=== PATIENT | male | born 1950 | race Caucasian/White ===

== ENCOUNTER → 2018-01-26 12:58 | Outpatient (CLI) | payer MEDICARE, OTHER, SELFPAY ==
--- NOTE | 2018-01-25 14:20 | FLU_PTH ---
PATIENT: ALEM SHEEHAN LOC: [facility] U#:[id number] AGE/SX: 75/M ROOM: RE01/26/[address]: Dr. Kailey Watson MD : 1950 BED: DIS: SPEC #: [id number] RECD: 01/26/18 12:02 STATUS: RENEE RELexii #: [id number] CRISELDA: 01/25/18 14:[address]: Kailey Watson DEPT: CYTOLOGY RECD BY: Nano Capps ENTERED: 01/26/18 13:07 SP TYPE: Fluid OTHR DR: Dr. Roberto Cralos Fernandes MD Tissues: A - Thyroid gland, NOS B - Thyroid gland, NOS Procedures: Pap Stain (control) Special Stain Group II Surgery Specimen Level IV Cell Block Cytospin Fluid HEADER OPERATION: Ultrasound guided fine needle aspiration of right thyroid PRE-OP DIAGNOSIS: Right thyroid nodules TISSUE SUBMITTED: A. FNA, right thyroid fluid, B. FNA, right thyroid slides DIAGNOSIS CYTOLOGY A. Right thyroid fluid, ultrasound-guided FNA (cytospin and cell block): Consistent with benign follicular nodule. B. Right thyroid nodule, ultrasound-guided FNA (smears): Consistent with benign follicular nodule. SJ:rg 01/29/18 COMMENT Immediate cytologic evaluation to determine adequacy is not applicable. Correlation with clinical, radiologic findings and appropriate follow up are necessary. CYTOLOGY STUDY Slides are reviewed. A. The specimen consists of benign follicular cells. B. The specimen is adequate for evaluation. The specimen consists of benign follicular cells and colloid. CYTOLOGY GROSS A - Received is 30 ml of beige cloudy fluid labeled with the patient's name and and designated per the requisition as FNA right thyroid. Submitted for cytology preparation including cell block. B - Received are 6 smears labeled with the patient's name and designated per the requisition as FNA right thyroid. Submitted for staining. /RY:mart 01/26/18 TC:5 CPT: 98978, 39203, 27709
== END ==
PROVIDERS: Family Provider Family Medicine; PCP Family Medicine; Visit Provider Surgery
DX: E04.2 Nontoxic multinodular goiter (principal)
CPT/HCPCS: 88108; 88305; 88313

== ENCOUNTER 2020-03-17 10:10 | Emergency (ER) | payer MEDICARE, OTHER, SELFPAY ==
[2020-03-17 10:11] VITALS: BP 135/81; PULSE 70; RESP 15; TEMP 36.7; BMI 30.8
--- NOTE | 2020-03-17 10:33 | CT_ITS ---
STUDY: CT BRAIN WITHOUT CONTRAST REASON FOR EXAM: Male, 70 years old. DIZZY RADIATION DOSAGE (If Supplied By Facility): CTDIvol = ( 60.81 ) mGy, DLP = ( 1135.50 ) mGycm TECHNIQUE: Transaxial CT imaging of the brain was performed without administration of intravenous contrast material. Individualized dose optimization techniques were used for this CT. COMPARISON: 02/24/2016 FINDINGS: Normal soft tissue structures. Normal calvarium. Normal size ventricles and extra-axial spaces for the patient''s age. Normal white matter tracts of the cerebral hemispheres. Old focal lacunar infarct or prominent perivascular space in the right periventricular white matter. Normal basal ganglia and thalami. Normal brainstem. Normal cerebellum. There is no intracranial hemorrhage. There are no findings of an acute ischemic infarction. Normal visualized paranasal sinuses. Old deformity of the left ocular globe. CT/Brain/Head without Contrast IMPRESSION: No acute intracranial pathology of the brain. Electronically Signed: Evan Stafford DO at 11:26 EDT Tel [phone], Service support ,
--- NOTE | 2020-03-17 10:33 | EKG12_ITS ---
Test Reason : Blood Pressure : / mmHG Vent. Rate : 065 BPM Atrial Rate : 065 BPM P-R Int : 202 ms QRS Dur : 094 ms QT Int : 428 ms P-R-T Axes : 039 030 052 degrees QTc Int : 445 ms Normal sinus rhythm Normal ECG Confirmed by MIGUEL A ALFARO, JEANNETTE ([id number]), graphics editor ANNIKA RODRIGUEZ ([id number]) on 03/18/2020 9:39:11 AM Referred By: SIOBHAN Confirmed By:JEANNETTE GRADY MD
[2020-03-17 10:55] LABS: Absolute Lymphocyte Count 1.02 X10^3/uL (0.83-4.51); Absolute Neutrophil Count 4.4 X10^3/uL (2.0-7.7); Basophil# 0.06 X10^3/uL; Basophil% 0.9 % (0-1); Eosinophil# 0.35 X10^3/uL; Eosinophils% 5.5 % (0-5); Hematocrit 46.2 % (40-54); Hemoglobin 14.6 g/dL (13.0-16.5); Lymphocyte # 1.02 X10^3/ul (4.0); Mean Corp Hgb Conc 31.6 g/dL (32-36); Mean Corpuscular Hgb 28.2 pg (27.0-32.0); Mean Corpuscular Volume 89.2 fL (80-94); Mean Platelet Vol. 9.8 fl (6.2-12.0); Monocyte% 7.8 % (0-10); NRBC Flagged by Analyzer 0 % (0-5); Neutrophil # 4.41 X10^3/uL (2.7-7.7); Neutrophil % 69.2 % (47-70); Platelet Count 226 K/mm3 (150-450); RBC Distribution Width SD 49.7 fl (35.1-43.9); Red Blood Count 5.18 M/mm3 (4.6-6.2); White Blood Count 6.4 K/mm3 (4.4-11.0)
[2020-03-17 11:07] LABS: ALB/GLOB Ratio 0.9 RATIO (0.9-2.4); AST(SGOT) 48 U/L (15-37); Alanine Aminotransfer ALT/SGPT 80 U/L (16-61); Albumin, Serum 3.5 g/dL (3.2-5.0); Alkaline Phosphatase 83 U/L (45-117); Anion Gap 6 (5-15); BUN 27 mg/dL (7-18); BUN/Creat Ratio 21.4 RATIO (10-20); Calcium,Total 9.1 mg/dL (8.5-10.1); Chloride 107 mmol/L (98-107); Creatinine, Serum 1.26 mg/dL (0.70-1.30); EST Glomerular Filtration Rate 60 mL/min (>60); Est Glom Filt Rate - Afr Amer 73 mL/min (>60); Estimated Creatinine Clearance 63.43 ml/min; Globulin 3.7 g/dL (2.2-4.2); Glucose 119 mg/dL (74-106); Potassium 3.9 mmol/L (3.5-5.1); Protein, Total 7.2 g/dL (6.4-8.2); Sodium Level 140 mmol/L (136-145)
--- NOTE | 2020-03-17 11:12 | ED.VISSUMM ---
- ER Visit Summary Date of Service: 03/17/20 Chief Complaint: Dizziness History of Present Illness: The patient is a 70 M who presents with dizziness that began this morning. Patient states he felt like the room was rocking back and forth. Patient states this lasted present 1 minute. Patient states this is different than his previous episodes of vertigo. Patient states his symptoms have resolved at the present time. Patient states he laid down and closes eyes and his symptoms resolved. Patient states his symptoms did not resolve when he closes eyes while sitting up. Patient states he feels like his ears are plugged and admits to some mild tenderness and fullness in his ears. Patient denies any headaches. Patient denies any paresthesias or weakness. Patient admits to nausea but denies any vomiting. Physical Examination: Vital signs are stable. Patient is afebrile. Patient is in no acute distress. Extraocular muscles are intact. There is no nystagmus. Tympanic membranes are clear bilaterally. Oral mucosa is pink and moist. Neck is supple. Trachea is midline. There is no JVD noted. Heart was regular rate and rhythm. Lungs are clear and equal bilaterally. Abdomen is soft. Bowel sounds are normal. There is no tenderness. There is no rebound or guarding noted. Skin is warm dry. Cranial nerves II through XII are intact. There are no focal motor or sensory deficits noted. Extremities are intact. There is no calf tenderness or edema. Test Results: EKG shows a normal sinus rhythm with a rate of 65. There are no acute ST or T wave changes. CBC and comprehensive metabolic profile were obtained and were essentially within normal limits. CT scan of the brain was obtained. There is no acute intracranial abnormality. This was interpreted by the radiologist and reviewed by myself. Emergency Department Course and Treatment: Patient was placed on a director education. There is no cardiac dysrhythmias noted. Patient had no further episodes of dizziness here in the emergency department. Patient was given a lunch tray. Patient was feeling better on reevaluation. Patient was instructed to follow-up with his primary care physician in 5 to 7 days. Patient understood and was agreeable with the plan. All questions were answered. Disposition: Discharge home Impression: 1. Dizziness This note was generated with [employer] software. It may contain incorrect words, spelling, and punctuation that were not noted in review of the chart prior to signing ED Disposition - Plan for ED Patient: Disposition: Home or Assisted Living Diagnosis: Dizziness Instructions: ED Dizziness UKO Referrals: Roberto Carlos Fernandes MD [Primary Care Provider] - 3-5 Days
[2020-03-17 11:32] VITALS: BP 147/86; PULSE 70
[2020-03-17 11:33] VITALS: BP 148/90; BP 152/87; PULSE 70; PULSE 87
[2020-03-17 11:59] VITALS: O2SAT 94
[2020-03-17 12:01] VITALS: BP 113/81; PULSE 79; RESP 18
[2020-03-17 12:25] VITALS: BP 145/87; PULSE 78; RESP 16
== END 2020-03-17 13:45 | disposition home or self-care (01) ==
PROVIDERS: Emergency Provider Emergency Medicine; PCP Family Medicine
DX: R42 Dizziness and giddiness (principal); R11.0 Nausea; H93.19 Tinnitus, unspecified ear; J34.89 Other specified disorders of nose and nasal sinuses; J45.909 Unspecified asthma, uncomplicated
CPT/HCPCS: 70450; 80053; 85025; 93005; 94760; 99285; A4216

== ENCOUNTER 2020-03-25 13:45 | Emergency (ER) | payer MEDICARE, OTHER, SELFPAY ==
[2020-03-25 13:46] VITALS: BP 138/93; PULSE 83; RESP 18; TEMP 36.3; O2SAT 97; BMI 31.4
--- NOTE | 2020-03-25 14:01 | ED.DCSUM_ITS ---
History of Present Illness Chief Complaint: Abd Pain Informant: Patient Onset: Today Context: Sudden Onset Timing: Continuous Current Severity: Mild Maximum Severity: Moderate Narrative: The patient is a 7-year-old male that presents to the emergency department abdominal pain. He states this late morning, he was putting a bench seat into the back of his jeep. He states he felt something pop in his abdomen. He states shortly thereafter, he noticed a hard lump at his bellybutton. He states this never happened before. He presented here for evaluation. He has no history of prior abdominal surgery. He states he is otherwise been in his normal state of health. Prior similar symptoms: No Recent Illness/Hospitalization: No Past Medical History - Allergies and Home Meds Allergies/Adverse Reactions: Allergies erythromycin base Adverse Reaction (Verified 03/17/20 10:21) Diarrhea Primary Care Physician: Kailey Watson MD [STAFF PHYSICIAN] - Prior records reviewed: Yes Past Medical History: - - Diabetes, hypertension Surgical History: rotator cuff repair - right 2013, total knee arthroplasty - 2014, right, - - left eyr reoval d/t trauma, Smoking Status: Never smoker - Family History Maternal Family History: Reports: Heart Disease - alive age 94 Paternal Family History: Reports: Stroke - age 72 Offspring Family History: Reports: - - children, daughter with sogrens, 1 granchild in good health Review of Systems General: Denies: Chills, Fever, Sweats Eyes: Denies: Visual changes - bilaterally, Diplopia ENT: Denies: Rhinorrhea, Sore throat Cardiovascular: Denies: Chest pain, Palpitations Respiratory: Denies: Dyspnea, Cough, Dyspnea on exertion Gastrointestinal: Reports: Abdominal pain. Denies: Nausea, Vomiting, Diarrhea, Melena, Hematochezia Genitourinary: Denies: Dysuria, Hematuria, Frequency Musculoskeletal: Denies: Back pain, Extremity Pain Skin: Denies: Rash, Wounds Neurological: Denies: Headache, Weakness, Numbness Physical Exam Vital Signs/Narrative: Vital Signs Temp Pulse Resp BP Pulse Ox 03/25/20 13:46 97.4 F L 83 18 138/93 H 97 Inital Vital Signs reviewed: Yes General: Well nourished, Well developed, No Acute Distress Head: Normocephalic, Atraumatic Eyes: Perrl, EOMI ENT: Moist mucous membranes, No rhinorrhea Neck: Supple, Nontender Cardiovascular: Regular rate, Regular rhythm, No murmurs Respiratory: No distress, CTA bilaterally, Chest nontender Abdomen: Soft, Nontender, Nondistended, Normal bowel sounds, Umbilical hernia, Hernia reducible Back: Nontender, Normal Inspection Extremities: Nontender, No edema Skin: Normal color, No rash Neurological: Alert, Oriented x3, Cranial nerves II-XII grossly intact, Normal Strength, Normal Sensation Psychological: Normal affect, Normal Mood Diagnostic/Tx/Re-eval - Medical Decision Making The patient presents with incarcerated umbilical hernia. He states it is been there for approximately 2 hours or less. With gentle pressure, it was easily reduced. There was no duskiness or skin color change. IV was established. Patient was treated for pain and nausea. He is had no symptoms of bowel obstruction. He was observed. His pain resolved. His lab work was unremarkable. I did discuss the patient with Dr. Watson as the patient requested [facility] surgery. She actually came to the emergency department and evaluated him. She is comfortable with plan for discharge. She is going to schedule him for outpatient operative repair. The patient was counseled on concerning symptoms and reasons to return. He will be discharged home. Impression 1. Incarcerated umbilical hernia-reduced ED Disposition - Plan for ED Patient: Disposition: Home or Assisted Living Instructions: What Is a Hernia?, ED Hernia Inguinal Referrals: Kailey Watson MD [STAFF PHYSICIAN] -
[2020-03-25 14:19] LABS: Absolute Lymphocyte Count 1.16 X10^3/uL (0.83-4.51); Absolute Neutrophil Count 5.7 X10^3/uL (2.0-7.7); Basophil# 0.06 X10^3/uL; Basophil% 0.7 % (0-1); Eosinophil# 0.36 X10^3/uL; Eosinophils% 4.5 % (0-5); Hematocrit 47.2 % (40-54); Hemoglobin 14.8 g/dL (13.0-16.5); Lymphocyte # 1.16 X10^3/ul (4.0); Lymphocyte % 14.4 % (19-41); Mean Corp Hgb Conc 31.4 g/dL (32-36); Mean Corpuscular Hgb 28.2 pg (27.0-32.0); Mean Corpuscular Volume 90.1 fL (80-94); Mean Platelet Vol. 9.8 fl (6.2-12.0); Monocyte# 0.79 X10^3/uL; Monocyte% 9.8 % (0-10); NRBC Flagged by Analyzer 0 % (0-5); Neutrophil # 5.65 X10^3/uL (2.7-7.7); Neutrophil % 70.1 % (47-70); Platelet Count 241 K/mm3 (150-450); RBC Distribution Width CV 14.9 % (11.6-14.6); RBC Distribution Width SD 49.4 fl (35.1-43.9); Red Blood Count 5.24 M/mm3 (4.6-6.2); White Blood Count 8.1 K/mm3 (4.4-11.0)
[2020-03-25] MEDS: Morphine 4 MG/ML Syringe IV (14:20)
[2020-03-25] MEDS: Ondansetron 4 MG/2 ML Vial IV (14:20)
[2020-03-25 14:40] LABS: ALB/GLOB Ratio 0.9 RATIO (0.9-2.4); AST(SGOT) 55 U/L (15-37); Alanine Aminotransfer ALT/SGPT 84 U/L (16-61); Albumin, Serum 3.6 g/dL (3.2-5.0); Alkaline Phosphatase 88 U/L (45-117); Anion Gap 8 (5-15); BUN 25 mg/dL (7-18); BUN/Creat Ratio 17.4 RATIO (10-20); Calcium,Total 9.4 mg/dL (8.5-10.1); Chloride 107 mmol/L (98-107); Creatinine, Serum 1.44 mg/dL (0.70-1.30); EST Glomerular Filtration Rate 52 mL/min (>60); Est Glom Filt Rate - Afr Amer 62 mL/min (>60); Globulin 3.8 g/dL (2.2-4.2); Glucose 128 mg/dL (74-106); Protein, Total 7.4 g/dL (6.4-8.2); Sodium Level 140 mmol/L (136-145)
[2020-03-25 15:29] VITALS: BP 108/66; PULSE 75; RESP 15; O2SAT 96
--- NOTE | 2020-03-25 18:10 | CON.PCM_ITS ---
- Consult Date of Consult: 03/25/20 - Reason for Consult Chief Complaint: abdominal pain History of Present Illness: 70 y/o WM presents with incarcerated umbilical hernia - reduced by ED physician, Dr. Segovia. I came to evaluate patient in consideration for surgery. He states that he was moving a bench seat for his Jeep [employer] and felt a popping sensation of his abdominal wall. He noted a protrusion in the area that was extremely painful. He presented to [facility] ED. He was evaluated and noted to have an incarcerated umbilical hernia and this was reduced by Dr. Segovia. The patient presently feels much improved. He denies previous hernia surgery, he denies previous abdominal surgery. PAST MEDICAL HISTORY ? Acute gastritis without mention of hemorrhage ? ? Allergic rhinitis, cause unspecified ? ? Allergic rhinitis ? Bursitis of hip ? ? bilateral ? Calcaneal spur ? ? 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 Diaphragmatic hernia without mention of obstruction or gangrene ? ? Esophagitis, unspecified ? ? Generalized anxiety disorder ? ? Anxiety, Generalized ? Heartburn 02/27/2017 ? Other and unspecified hyperlipidemia ? ? PMH - PAST MEDICAL HISTORY OF ? ? nodules in left lung ? Profound impairment, one eye, impairment level not further specified ? ? left ? Restless legs syndrome (RLS) ? ? Type II or unspecified type diabetes mellitus without mention of complication, not stated as uncontrolled ? ? 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ty 02/17/2017 ? Added automatically from request for surgery [id number] ? Unspecified asthma(493.90) ? ? Unspecified essential hypertension ? ? Unspecified sleep apnea ? ? PAST SURGICAL HISTORY ? ARTHROS SHLDR DX W/WO SYNV BX ? 01/17/2014 ? Right shoulder ? COLONOSCOP W/ OR W/O BRS SPEC ? 02/02/2005 ? Colonoscopy-repeat in ? COLONOSCOP W/ OR W/O BRS SPEC ? 04/04/2016 ? Colonoscopy ? DEBRIDEMENT OF SKIN, FULL THIC ? 07/23/08 ? Debride and drain right anastasia infection ? EGD W/O BRS SPECIMEN W/BX ? 04/23/09 ? HEART SURGERY HX ? 2014 ? bicuspid valve repair & TAA tube graft ? KNEE ARTHROSCOPY ? 05/23/2014 ? right ? PAST SURGICAL HISTORY OF ? ? ? L eye removed for trauma ? PAST SURGICAL HISTORY OF ? ? ? left wrist procedure- some typeof mass removed. ? REPAIR COMPL ROTATOR CUFF AVULSN,CHR ? ? Right shoulder ? REVISE ULNAR NERVE AT ELBOW Right 03/01/2017 ? Right ulnar nerve decompression ? TOTAL KNEE REPLACEMENT Left 12/25/2019 ? Left Knee replacement, total ? Medications: ? magnesium oxide (MAG-OX) 400 mg (241.3 mg magnesium) tablet Take 1 tablet by mouth once daily. ? fluticasone (FLONASE) 50 mcg/actuation nasal spray Use 2 Sprays in each nostril once daily. ? sitaGLIPtin (JANUVIA) 100 mg tablet Take 1 tablet by mouth once daily. ? aspirin, enteric coated (ASPIRIN, ENTERIC COATED) 325 mg EC tablet Take 1 tablet by mouth twice daily. (Patient taking differently: ? acetaminophen (TYLENOL) 500 mg tablet TAKE 2 TABLETS BY MOUTH EVERY 8 HOURS NEEDED FOR PAIN. ? fluticasone/vilanterol (BREO ELLIPTA INHALATION) Inhale 1 Puff as instructed once daily. ? mirtazapine (REMERON) 15 mg tablet TAKE 1 2 TO 1 (ONE HALF TO ONE) TABLET BY MOUTH 30 MINUTES BEFORE BEDTIME ? amLODIPine (NORVASC) 5 mg tablet Take 1 tablet by mouth once daily. ? fosinopril sodium (MONOPRIL) 40 mg tablet Take 1 tablet by mouth once daily. ? atorvastatin (LIPITOR) 40 mg tablet Take 1 tablet by mouth daily at bedtime. For cholesterol. ? metFORMIN (GLUCOPHAGE) 1,000 mg tablet Take 1 tablet by mouth twice daily with meals. ? pramipexole (MIRAPEX) 0.25 mg tablet Take 1 tablet by mouth once daily. ? Hydrochlorothiazide 12.5 mg capsule Take 1 capsule by mouth once daily. ? albuterol HFA (VENTOLIN HFA) 90 mcg/actuation inhaler Inhale 2 Puffs as instructed every 4 hours as needed for Wheezing/Shortness of ? Cholecalciferol, Vitamin D3, 1,000 unit cap Take 1 capsule by mouth once daily. ? rfssvae-lgdshaqfa-btywvsf D3 (OS-RENATA 500+D) 500 mg(1,250mg) -200 unit per tablet Take 1 tablet by mouth twice daily with meals. ? therapeutic multivitamin (THERA VITAMIN) tablet Take 1 tablet by mouth daily with breakfast. ? CPAP As directed ? Vardenafil HCl (LEVITRA) 20 mg tablet Take 1 tablet by mouth once daily. ? blood sugar diagnostic (ONETOUCH VERIO) test strip Test blood sugar(s) 2 times daily. ? COMPOUNDED PRESCRIPTION NEBULIZER MACHINE AND MEDICATION KITS, TUBING AND FILTERS DX ASTHMA ? lancets (ONE TOUCH DELICA) 33 gauge misc Test blood sugar(s) 2 daily. ? Blood-Glucose Meter (ONETOUCH VERIO SYSTEM) [facility] Dispense One Kit - Verio Meter Kit. Test blood sugar twice daily. Dx: E11.9. Allergies: erythromycin Social history: TOB use denies REVIEW OF SYSTEMS: General - denies fevers, denies weight loss, denies anorexia Cardiovascular denies chest pain, has known TAA Pulmonary on CPAP, denies shortness of breath, denies coughing up blood Gastrointestinal less abdominal pain now, has heartburn Neurological denies seizures, denies history of stroke Genitourinary denies burning with urination, denies blood in urine Hematological denies spontaneous/prolonged bleeding Skin denies open non healing wounds Musculoskeletal has knee pain scheduled for surgery Endocrine has diabetes Psychological -situational depression- recently passed PHYSICAL EXAMINATION: Vital signs Temp 97.4F HR 83 RR 18 BP 138/93 General WD/WN WM in no apparent distress, alert and oriented, not septic appearing Skin: Skin color, texture, turgor normal, no suspicious rashes or lesions Head: Normocephalic, no masses, lesions, tenderness or abnormalities Neck: Supple, no adenopathy; thyroid symmetric, normal size, no bruits Lungs: Lungs clear to auscultation. No wheezing, rhonchi, rales Heart: normal heart sounds, no murmurs noted Abdomen: soft obese, tender in umbilical area no protruding lesion noted. Bowel sounds normal. No masses, organomegaly Extremities: No deformities, edema, skin discoloration, clubbing or cyanosis. Good capillary refill. Neuro: non focal Psych - calm and appropriate Labs - WBC 8.1K with 70.1% neut (slightly elevated), BUN/Creat - 25/1.44, AST/ALT 55/84 IMPRESSION: episode of incarcerated umbilical hernia - reduced presently DISCUSSION/Plan: I have discussed the above with the patient. I have offered the patient the procedure of umbilical hernia repair I have explained the procedure to the patient. I have counseled the patient as to the risks of the procedure, including but not limited to: infection, bleeding, injury to any blood vessels/nerves, scar tissue, injury to any intraabdominal organs, injury to kidney/ureters, injury to bowel/bladder, intraabdominal abscess/bleeding, recurrence of hernia, wound infections, complications of anesthesia, postoperative pneumonia/cardiac problems/blood clots etc. the patient understands. The patient was offered a surgery/procedure. The provider and patient have discussed in detail the risk of exposure to and/or potential harm posed by the COVID-19 virus with having a surgery/procedure at this time versus the risk of delaying the surgery/procedure. It is not possible to know either the risk of delaying the surgery or procedure or chance of getting an infection with perfect accuracy, but a joint decision was made between the patient and the provider to proceed at this time with the scheduled surgery/procedure. He agrees to proceed I have answered all questions to the patient?s satisfaction and the patient has no further questions. I will make arrangements for surgery in near future. ( I had offered patient surgery this Monday, he states that he has made other plans and prefers another date)
== END 2020-03-25 15:30 | disposition home or self-care (01) ==
LOC: ED 14:16
PROVIDERS: Emergency Provider Emergency Medicine; PCP Family Medicine
DX: K42.0 Umbilical hernia with obstruction, without gangrene (principal); I10 Essential (primary) hypertension; E11.9 Type 2 diabetes mellitus without complications; F41.1 Generalized anxiety disorder; E78.5 Hyperlipidemia, unspecified; Q25.40 Congenital malformation of aorta unspecified; M70.70 Other bursitis of hip, unspecified hip; G25.81 Restless legs syndrome; G47.30 Sleep apnea, unspecified; J45.909 Unspecified asthma, uncomplicated; Z87.19 Personal history of other diseases of the digestive system; Z79.84 Long term (current) use of oral hypoglycemic drugs; Z79.82 Long term (current) use of aspirin; Z79.899 Other long term (current) drug therapy
CPT/HCPCS: 80053; 85025; 96374; 96375; 99281; 99285; J7040; A4216; J2405

== ENCOUNTER 2020-11-22 14:26 | Emergency (ER) | payer MEDICARE, OTHER, SELFPAY ==
[2020-11-22 14:27] VITALS: BP 150/85; PULSE 84; RESP 16; TEMP 36.7; O2SAT 93; BMI 33.2
[2020-11-22 14:39] VITALS: O2SAT 93
--- NOTE | 2020-11-22 15:19 | EX.ED.DYSGE1 ---
HPI History of Present Illness Chief Complaint: Cough Narrative Narrative: Patient presenting for evaluation secondary to a cough. Patient states that he had a reverse total shoulder performed on Monday at [facility]. He states that when he was discharged home later that day felt as if he had a lot of sinus congestion. However the next day he states that he started to develop a cough that was productive of green sputum. He does endorse mild shortness of breath but denies that he has any sort of fevers chills night sweats nausea vomiting or any other associated infectious signs or symptoms. He does have an underlying history of asthma, he takes Breo every day as a controller medication. He denies any chest pain. He denies any hemoptysis. Denies any history of DVT or PE. Review of systems otherwise negative. [facility] Medical History COPD (chronic obstructive pulmonary disease) Diabetes Hypertension Home Medications magnesium oxide 400 mg PO DAILY 11/25/14 [History Last Taken 02/24/16] metformin 1,000 mg PO BIDCM 11/25/14 [History Last Taken Unknown] multivitamin,jt-weln-Cw-FA-min 1 ea PO DAILY 11/25/14 [History Last Taken 02/24/16] pramipexole 0.25 mg PO QHS 11/25/14 [History Last Taken 02/23/16] atorvastatin 20 mg PO QHS #30 tablet 12/09/14 [Rx Last Taken 02/23/16] calcium carbonate-vitamin D3 [Oyster Shell Calcium-Vit D3] 1 tab PO BIDCM #0 tablet 12/09/14 [Rx Last Taken 02/24/16] amlodipine 5 mg PO DAILY 02/24/16 [History Last Taken 02/24/16] aspirin 162.5 mg PO DAILY 02/24/16 [History Last Taken 02/24/16] ergocalciferol (vitamin D2) [Vitamin D2] 50,000 unit PO SARMIENTO 02/24/16 [History Last Taken 02/21/16] fluticasone propionate 2 spray NASAL DAILY 02/24/16 [History Last Taken 02/24/16] fosinopril 40 mg PO DAILY 02/24/16 [History Last Taken 02/24/16] metoprolol tartrate 25 mg PO BID 02/24/16 [History Last Taken Unknown] zolpidem 10 tab PO QHS 02/24/16 [History Last Taken 02/23/16] fluticasone furoate-vilanterol 1 puff INHALATION DAILY 03/25/20 [History Last Taken Unknown] mirtazapine 15 mg PO QHS 03/25/20 [History Last Taken Unknown] amoxicillin-pot clavulanate [Augmentin] 1 tab PO BID #14 tab 11/22/20 [Rx Last Taken Unknown] Allergy/AdvReac Type Severity Reaction Status Date / Time erythromycin base AdvReac Diarrhea Verified 03/17/20 10:21 Surgical History Status post reverse total shoulder replacement Social History Smoking Status: Never smoker ROS ROS ED Constitutional Constitutional ED: Denies chills or fever(s) ENT ENT ED: Denies rhinorrhea Cardiovascular Cardiovascular: Denies chest pain Respiratory/Chest Respiratory/Chest: Reports cough and dyspnea Gastrointestinal Gastrointestinal: Denies abdominal pain, diarrhea, nausea or vomiting Genitourinary Genitourinary ED: Denies dysuria or hematuria Musculoskeletal Musculoskeletal: Denies back pain Integumentary Denies rash Neurologic Neurologic: Denies paresthesias or weakness Psychiatric Psychiatric: Denies depression Endocrine Endocrinology: Denies fatigue Allergic/Immunologic Allergic/Immunologic ED: Denies urticaria EXAM Physical Exam Const Vital Signs: 11/22/20 14:27 11/22/20 14:39 Temperature 98.1 F Temperature Source Temporal Pulse Rate 84 Respiratory Rate 16 Blood Pressure 150/85 H Blood Pressure Mean 106 Pulse Ox 93 93 Oxygen Delivery Method Room Air Room Air Positive well nourished and well developed General Appearance ED: well developed and NAD HEENT Reports moist mucous membranes Negative for trauma or tenderness Eyes EOMs intact bilaterally Neck no lymphadenopathy, supple and no JVD Chest Wall inspection of chest normal Resp normal respiratory effort Auscultation: rales bilateral Cardio regular rate, regular rhythm and peripheral pulses 2+ throughout Rate: other Other Details: 3 out of 6 systolic murmur noted GI normal to inspection, nondistended, normoactive bowel sounds, non-tender and no masses Palpation: soft Back/Spine normal to inspection Extremity normal to inspection Extremity Narrative: Right arm is in a sling General Extremety ED: Negative for tenderness Neuro oriented x3 and no sensory deficits noted Sensorium / Orientation: alert Motor Exam: strength 5/5 throughout Psych mental status grossly normal Skin no rashes or lesions noted MDM MDM MDM Narrative Medical decision making narrative: Patient presented secondary to a productive cough status post surgery. On physical exam the patient has rales in his bases bilaterally. Chest x-ray per radiology they do not feel that there is airspace consolidation, but by my personal review I feel that there is potentially a retrocardiac infiltrate on the patient's lateral x-ray. Clinically the patient likely has an element of a postoperative pneumonia but we ambulated him in the emergency department and he did not have any hypoxia his vital signs are otherwise stable. I believe the patient is appropriate for outpatient management with a course of Augmentin. Patient was educated on signs and symptoms which to return. Radiography Chest X-Ray - ED: 2 View, Read by ED Physician and - (Retrocardiac infiltrate) Diagnostic Testing: Radiology Impression Chest X-Ray 11/22/20 15:50 IMPRESSION: 1. No airspace consolidation or pleural effusion. 2. Recent right shoulder replacement. Electronically Signed: Raul Baeza MD ([place]) at 16:07 EDT , Service support , Discharge Plan Triage Chief Complaint: Cough ED Provider: Dakota Hernandez Dx/Rx/DC Orders Clinical Impression: Post-op pneumonia Instructions: ED Pneumonia (Adult) Prescriptions: New amoxicillin-pot clavulanate [Augmentin] 875-125 mg tablet 1 tab PO BID Qty: 14 RF: 0 No Action magnesium oxide 400 MG tablet 400 mg PO DAILY RF: 0 multivitamin,ws-svcn-Bh-FA-min 1 EACH tablet 1 ea PO DAILY RF: 0 metformin 1,000 MG tablet 1,000 mg PO BIDCM RF: 0 pramipexole 0.25 MG tablet 0.25 mg PO QHS RF: 0 calcium carbonate-vitamin D3 [Oyster Shell Calcium-Vit D3] 1 TABLET tablet 1 tab PO BIDCM Qty: 0 RF: 0 atorvastatin 20 MG tablet 20 mg PO QHS Qty: 30 RF: 0 aspirin 325 MG tablet 162.5 mg PO DAILY RF: 0 amlodipine 5 MG tablet 5 mg PO DAILY RF: 0 fosinopril 40 MG tablet 40 mg PO DAILY RF: 0 ergocalciferol (vitamin D2) [Vitamin D2] 50,000 UNIT capsule 50,000 unit PO SARMIENTO RF: 0 zolpidem 10 MG tablet 10 tab PO QHS RF: 0 fluticasone propionate 1 SPRAY spray,suspension 2 spray NASAL DAILY RF: 0 metoprolol tartrate 25 MG tablet 25 mg PO BID RF: 0 mirtazapine 15 MG tablet 15 mg PO QHS RF: 0 fluticasone furoate-vilanterol 1 EACH blister with device 1 puff INHALATION DAILY RF: 0 Primary Care Provider: Roberto Carlos Fernandes Referrals: Roberto Carlos Fernandes MD [Primary Care Provider] - 3-5 Days Disposition Disposition: Home, self care
--- NOTE | 2020-11-22 15:50 | RAD_ITS ---
STUDY: X-RAY CHEST REASON FOR EXAM: Male, 70 years old. Cough with green sputum TECHNIQUE: PA and lateral views of the chest. COMPARISON: 02/24/2016 FINDINGS: The lungs are clear and expanded. There is no demonstrated pleural abnormality. Normal size heart. Sternal wires are stable. Normal visualized pulmonary arteries. There is atherosclerotic tortuosity of the aortic arch and descending thoracic aorta. Normal visualized thoracic spine. Right shoulder replacement with adjacent air compatible with recent surgery. There is no demonstrated abnormality of the visualized soft tissue structures of the upper abdomen. RAD/Chest PA and Lateral IMPRESSION: 1. No airspace consolidation or pleural effusion. 2. Recent right shoulder replacement. Electronically Signed: Raul Baeza MD ([place]) at 16:07 EDT , Service support ,
[2020-11-22 16:07] VITALS: O2SAT 94
== END 2020-11-22 16:32 | disposition home or self-care (01) ==
PROVIDERS: Emergency Provider Emergency Medicine; PCP Family Medicine
DX: J18.9 Pneumonia, unspecified organism (principal)
CPT/HCPCS: 71046; 99282

== ENCOUNTER 2020-12-16 12:16 | Emergency (ER) | payer MEDICARE, OTHER, SELFPAY ==
[2020-12-16 12:16] VITALS: BP 155/81; PULSE 77; RESP 16; TEMP 36.4; O2SAT 96; BMI 35.7
--- NOTE | 2020-12-16 12:38 | EKG12_ITS ---
Test Reason : Blood Pressure : / mmHG Vent. Rate : 069 BPM Atrial Rate : 069 BPM P-R Int : 212 ms QRS Dur : 092 ms QT Int : 432 ms P-R-T Axes : 033 011 047 degrees QTc Int : 462 ms Sinus rhythm with 1st degree A-V block Otherwise normal ECG Confirmed by MIGUEL A ALFARO, JEANNETTE ([id number]), online content editor ANNIKA RODRIGUEZ ([id number]) on 12/21/2020 12:52:41 PM Referred By: JESUS MANUEL Confirmed By:JEANNETTE GRADY MD
--- NOTE | 2020-12-16 12:39 | CT_ITS ---
STUDY: CTA CHEST REASON FOR EXAM: Male, 70 years old. Pulmonary embolism. Bilateral lower extremity edema. Recent shoulder surgery. RADIATION DOSAGE (If Supplied By Facility): CTDIvol = ( 16.23 ) mGy, DLP = ( 544.50 ) mGycm TECHNIQUE: The examination was performed with the intravenous administration of IV 100mL Isovue-370. Post-processing of the angiographic images was performed, with multiplanar reformation and 3D reconstruction. Individualized dose optimization techniques were used for this CT. COMPARISON: None. FINDINGS: There are several nonocclusive intraluminal filling defects in branches of the lower lobe pulmonary arteries bilaterally in keeping with pulmonary emboli. Normal thoracic aorta and visualized great vessels. There is no demonstrated aortic dissection. Sternal cerclage wires and vascular clips are present from a prior sternotomy and coronary artery bypass graft procedure (CABG). There are calcifications of the coronary arteries. There are visualized mediastinal lymph nodes, which are within normal size limits, and with normal morphology. Normal hilar regions. Normal visualized trachea and bronchi. The lungs are well expanded. Mild increased markings at the lung bases suggest some mild scarring. Normal pleura. Normal chest wall structures. There are degenerative changes of thoracic spine. Normal visualized upper abdomen. CT/CTA Chest W/WO Contrast IMPRESSION: Several nonocclusive intraluminal filling defects in branches of the lower lobe pulmonary arteries bilaterally in keeping with pulmonary emboli. Electronically Signed: Dashawn Jama MD at 14:54 EDT , Service support ,
--- NOTE | 2020-12-16 12:40 | EX.ED.DYSGE1 ---
HPI History of Present Illness Chief Complaint: Edema Detail of Chief Complaint: Lower extremity edema and dizziness Informant: patient and spouse/S.O. Onset/Context/Timing Onset: Yesterday Context: Sudden Onset Timing: Continuous Quality: Like vertigo Location: Generalized Worsened by: Nothing Relieved by: Nothing Narrative Narrative: Patient presents with lower extremity edema and dizziness that began yesterday. Patient went to urgent care today and was referred to the emergency department. Patient states his dizziness is like previous episodes of vertigo. Patient states the swelling in his legs is up to his knees and is constant. Patient admits to some mild shortness of breath. Patient states he has had 2 family members from pulmonary embolism. Patient admits to some nausea but denies any vomiting. Patient also admits to a headache. Patient also reports that he had a reverse total shoulder replacement 1 month ago. [facility] Medical History COPD (chronic obstructive pulmonary disease) Diabetes Hypertension Home Medications magnesium oxide 400 mg PO DAILY 11/25/14 [History Last Taken 02/24/16] metformin 1,000 mg PO BIDCM 11/25/14 [History Last Taken Unknown] multivitamin,fq-pxbg-Au-FA-min 1 ea PO DAILY 11/25/14 [History Last Taken 02/24/16] pramipexole 0.25 mg PO QHS 11/25/14 [History Last Taken 02/23/16] atorvastatin 20 mg PO QHS #30 tablet 12/09/14 [Rx Last Taken 02/23/16] calcium carbonate-vitamin D3 [Oyster Shell Calcium-Vit D3] 1 tab PO BIDCM #0 tablet 12/09/14 [Rx Last Taken 02/24/16] amlodipine 5 mg PO DAILY 02/24/16 [History Last Taken 02/24/16] aspirin 162.5 mg PO DAILY 02/24/16 [History Last Taken 02/24/16] ergocalciferol (vitamin D2) [Vitamin D2] 50,000 unit PO SARMIENTO 02/24/16 [History Last Taken 02/21/16] fluticasone propionate 2 spray NASAL DAILY 02/24/16 [History Last Taken 02/24/16] fosinopril 40 mg PO DAILY 02/24/16 [History Last Taken 02/24/16] metoprolol tartrate 25 mg PO BID 02/24/16 [History Last Taken Unknown] zolpidem 10 tab PO QHS 02/24/16 [History Last Taken 02/23/16] fluticasone furoate-vilanterol 1 puff INHALATION DAILY 03/25/20 [History Last Taken Unknown] mirtazapine 15 mg PO QHS 03/25/20 [History Last Taken Unknown] apixaban [Eliquis] 5 mg PO BID #74 tab 12/16/20 [Rx Last Taken Unknown] dulaglutide [Trulicity] 1.5 mg SUBCUT QWEEK 12/16/20 [History Last Taken Unknown] losartan 100 mg PO DAILY 12/16/20 [History Last Taken Unknown] Allergy/AdvReac Type Severity Reaction Status Date / Time erythromycin base AdvReac Diarrhea Verified 12/16/20 12:18 Surgical History Status post reverse total shoulder replacement Social History Smoking Status: Never smoker ROS ROS ED Constitutional Constitutional ED: Denies chills or fever(s) Eyes Eyes: Denies blurry vision or change in vision ENT ENT ED: Denies rhinorrhea or sore throat Cardiovascular Cardiovascular: Denies chest pain or palpitations Respiratory/Chest Respiratory/Chest: Denies cough or dyspnea Gastrointestinal Gastrointestinal: Reports nausea; Denies vomiting Genitourinary Genitourinary ED: Denies dysuria or hematuria Musculoskeletal Musculoskeletal: Denies back pain or neck pain Integumentary Denies abscess or rash Neurologic Neurologic: Reports headache(s); Denies weakness Allergic/Immunologic Allergic/Immunologic ED: Denies mouth swelling or urticaria EXAM Physical Exam Const Vital Signs: 12/16/20 12:16 12/16/20 12:39 12/16/20 14:58 Temperature 97.6 F L Temperature Source Temporal Pulse Rate 77 67 Respiratory Rate 16 18 Respiratory Effort Normal Non-Labored Respiratory Pattern Normal Blood Pressure 155/81 H Blood Pressure Mean 105 Pulse Ox 96 100 Oxygen Delivery Method Room Air Positive well nourished and well developed General Appearance ED: well developed HEENT Reports moist mucous membranes Neck supple and no JVD Resp normal respiratory effort and clear to auscultation bilaterally Cardio regular rate and regular rhythm GI normal to inspection, nondistended, normoactive bowel sounds and non-tender Palpation: soft Extremity Extremity Narrative: There is 2+ edema of the lower extremities to the knees bilaterally. General Extremety ED: Yes edema; Negative for tenderness General Extremity: edema Neuro oriented x3, CN's II-XII intact bilaterally and no sensory deficits noted Sensorium / Orientation: alert Motor Exam: strength 5/5 throughout Psych mental status grossly normal MDM MDM MDM Narrative Medical decision making narrative: EKG was obtained. On my interpretation, it showed a normal sinus rhythm with a first-degree AV block with a rate of 69. QRS interval, and QTc intervals were all normal. [place] was normal. There are no acute ST or T wave changes. CBC was within normal limits. Comprehensive metabolic profile was essentially within normal limits. BNP was normal at 27.8. CTA of the chest was obtained. There are several nonocclusive pulmonary emboli. Vital signs are stable. Patient is feeling better on reevaluation. Patient was started on Eliquis. Patient was instructed to follow-up with his primary care physician in 5 to 7 days. Patient and family understood and were agreeable with the plan. All questions were answered. Lab Data Attestation: I reviewed the patient's lab results. Labs: Laboratory Results - last 24 hr 12/16/20 12/16/20 12/16/20 12:55 12:55 12:55 WBC 7.0 RBC 4.69 Hgb 13.4 Hct 41.9 MCV 89.3 MCH 28.6 MCHC 32.0 RDW Std Deviation 50.4 H RDW Coeff of Cristal 15.7 H Plt Count 211 MPV 9.6 Immature Gran % (Auto) 0.600 Neut % (Auto) 61.7 Lymph % (Auto) 19.8 Tate % (Auto) 9.6 Eos % (Auto) 7.6 H Baso % (Auto) 0.7 Absolute Neuts (auto) 4.3 Absolute Lymphs (auto) 1.39 Nucleated RBC % 0 Sodium 140 Potassium 3.9 Chloride 105 Carbon Dioxide 28.0 Anion Gap 7 BUN 25 H Creatinine 1.06 Estim Creat Clear Calc 73.28 Est GFR (MDRD) Af Amer 89 Est GFR (MDRD) Non-Af 73 BUN/Creatinine Ratio 23.6 H Glucose 111 H Calcium 9.1 Total Bilirubin 0.50 AST 38 H ALT 67 H Alkaline Phosphatase 113 Troponin I High Sens 5.8 B-Natriuretic Peptide 27.8 Total Protein 6.6 Albumin 3.6 Globulin 3.0 Albumin/Globulin Ratio 1.2 Radiography Diagnostic Testing: Radiology Impression Chest CTA 12/16/20 12:39 IMPRESSION: Several nonocclusive intraluminal filling defects in branches of the lower lobe pulmonary arteries bilaterally in keeping with pulmonary emboli. Electronically Signed: Dashawn Jama MD at 14:54 EDT , Service support , EKG Initial EKG: Attestation: I personally reviewed and interpreted this EKG as follows: Interpretation: Sinus Rhythm (First-degree AV block with a rate of 69) and No Acute Injury Pattern Prior EKG tracings: available for review Prior: Unchanged (03/17/2020) Discharge Plan Triage Chief Complaint: Edema Other Complaint: Dizziness ED Provider: Johnson Sutton Dx/Rx/DC Orders Clinical Impression: Pulmonary embolism Instructions: Pulmonary Embolism, ED Peripheral Edema, Bilateral Prescriptions: New Eliquis 5 mg tablet 5 mg PO BID Qty: 74 RF: 0 No Action magnesium oxide 400 MG tablet 400 mg PO DAILY RF: 0 multivitamin,kp-kbjw-Nu-FA-min 1 EACH tablet 1 ea PO DAILY RF: 0 metformin 1,000 MG tablet 1,000 mg PO BIDCM RF: 0 pramipexole 0.25 MG tablet 0.25 mg PO QHS RF: 0 calcium carbonate-vitamin D3 [Oyster Shell Calcium-Vit D3] 1 TABLET tablet 1 tab PO BIDCM Qty: 0 RF: 0 atorvastatin 20 MG tablet 20 mg PO QHS Qty: 30 RF: 0 aspirin 325 MG tablet 162.5 mg PO DAILY RF: 0 amlodipine 5 MG tablet 5 mg PO DAILY RF: 0 fosinopril 40 MG tablet 40 mg PO DAILY RF: 0 ergocalciferol (vitamin D2) [Vitamin D2] 50,000 UNIT capsule 50,000 unit PO SARMIENTO RF: 0 zolpidem 10 MG tablet 10 tab PO QHS RF: 0 fluticasone propionate 1 SPRAY spray,suspension 2 spray NASAL DAILY RF: 0 metoprolol tartrate 25 MG tablet 25 mg PO BID RF: 0 mirtazapine 15 MG tablet 15 mg PO QHS RF: 0 fluticasone furoate-vilanterol 1 EACH blister with device 1 puff INHALATION DAILY RF: 0 losartan 100 mg tablet 100 mg PO DAILY RF: 0 Trulicity 1.5 mg/0.5 mL pen injector 1.5 mg SUBCUT QWEEK RF: 0 Primary Care Provider: Roberto Carlos Fernandes Referrals: Roberto Carlos Fernandes MD [Primary Care Provider] - 3-5 Days Disposition Disposition: Home, Self Care
[2020-12-16 13:06] LABS: Absolute Lymphocyte Count 1.39 X10^3/uL (0.83-4.51); Absolute Neutrophil Count 4.3 X10^3/uL (2.0-7.7); Basophil# 0.05 X10^3/uL; Basophil% 0.7 % (0-1); Eosinophil# 0.53 X10^3/uL; Eosinophils% 7.6 % (0-5); Hematocrit 41.9 % (40-54); Hemoglobin 13.4 g/dL (13.0-16.5); Lymphocyte # 1.39 X10^3/ul (0.83-4.51); Lymphocyte % 19.8 % (19-41); Mean Corpuscular Hgb 28.6 pg (27.0-32.0); Mean Corpuscular Volume 89.3 fL (80-94); Mean Platelet Vol. 9.6 fl (6.2-12.0); Monocyte# 0.67 X10^3/uL; Monocyte% 9.6 % (0-10); NRBC Flagged by Analyzer 0 % (0-5); Neutrophil # 4.33 X10^3/uL (2.7-7.7); Neutrophil % 61.7 % (47-70); Platelet Count 211 K/mm3 (150-450); RBC Distribution Width CV 15.7 % (11.6-14.6); RBC Distribution Width SD 50.4 fl (35.1-43.9); Red Blood Count 4.69 M/mm3 (4.6-6.2)
[2020-12-16 13:23] LABS: BNP,B-Type NATRIURETIC PEPTIDE 27.8 pg/mL (0-100)
[2020-12-16 13:25] LABS: ALB/GLOB Ratio 1.2 RATIO (0.9-2.4); AST(SGOT) 38 U/L (15-37); Alanine Aminotransfer ALT/SGPT 67 U/L (16-61); Albumin, Serum 3.6 g/dL (3.2-5.0); Alkaline Phosphatase 113 U/L (45-117); Anion Gap 7 (5-15); BUN 25 mg/dL (7-18); BUN/Creat Ratio 23.6 RATIO (10-20); Calcium,Total 9.1 mg/dL (8.5-10.1); Chloride 105 mmol/L (98-107); Creatinine, Serum 1.06 mg/dL (0.70-1.30); EST Glomerular Filtration Rate 73 mL/min (>60); Est Glom Filt Rate - Afr Amer 89 mL/min (>60); Estimated Creatinine Clearance 73.28 ml/min; Glucose 111 mg/dL (74-106); Potassium 3.9 mmol/L (3.5-5.1); Protein, Total 6.6 g/dL (6.4-8.2); Sodium Level 140 mmol/L (136-145); Troponin-I HS 5.8 pg/mL (3.0-78.5)
[2020-12-16 14:58] VITALS: PULSE 67; RESP 18; O2SAT 100
[2020-12-16 15:25] VITALS: PULSE 72; RESP 16; O2SAT 98
== END 2020-12-16 15:32 | disposition home or self-care (01) ==
PROVIDERS: Emergency Provider Emergency Medicine; PCP Family Medicine
DX: I26.99 Other pulmonary embolism without acute cor pulmonale (principal); I44.0 Atrioventricular block, first degree; I10 Essential (primary) hypertension; E11.9 Type 2 diabetes mellitus without complications; J44.9 Chronic obstructive pulmonary disease, unspecified; Z79.82 Long term (current) use of aspirin; Z79.01 Long term (current) use of anticoagulants; Z79.84 Long term (current) use of oral hypoglycemic drugs; Z79.899 Other long term (current) drug therapy; R06.02 Shortness of breath
CPT/HCPCS: 71275; 80053; 83880; 84484; 85025; 93005; 99284; J7030; Q9967; A4216

== ENCOUNTER → 2020-12-28 | Outpatient (CLI) | payer MEDICARE, OTHER, SELFPAY ==
[2020-12-16 12:16] VITALS: BMI 35.7
[2020-12-28 12:08] LABS: Erythrocyte Sedimentation Rate 17 mm/hr (0-20)
[2020-12-28 12:19] LABS: CRP 8.53 mg/L (0.0-3.0)
== END | disposition home or self-care (01) ==
LOC: LABSPEC 11:54
PROVIDERS: PCP Family Medicine; Referring Provider Registered Nurse; Visit Provider Registered Nurse
DX: R23.3 Spontaneous ecchymoses (principal)
CPT/HCPCS: 85652; 86140

== ENCOUNTER 2021-02-27 18:06 | Emergency (ER) | payer MEDICARE, OTHER, SELFPAY ==
[2021-02-27 18:07] VITALS: BP 166/84; PULSE 80; RESP 16; TEMP 36.9; O2SAT 95; BMI 33.9
--- NOTE | 2021-02-27 19:11 | CT_ITS ---
STUDY: CT BRAIN WITHOUT CONTRAST REASON FOR EXAM: Male, 71 years old. Weakness hypertension diabetes RADIATION DOSAGE (If Supplied By Facility): CTDIvol = ( 44.99 ) mGy, DLP = ( 863.60 ) mGycm TECHNIQUE: Transaxial CT imaging of the brain was performed without administration of intravenous contrast material. Individualized dose optimization techniques were used for this CT. COMPARISON: 17 March 2020 FINDINGS: Appearance is stable since prior without acute findings. 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 There is no acute territorial infarction. There is no mass effect, midline shift or hydrocephalus. There are small, less than 5 cm thick, bilateral CSF density subdural chronic effusions. The skull is intact. 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 CT/Brain/Head without Contrast IMPRESSION: 1. No acute abnormality. 2. Minimal remote ischemic changes. 3. Less than 5mm bilateral chronic stable subdural effusions. Electronically Signed: Akshat Durán MD at 20:42 EDT Tel , Service support ,
--- NOTE | 2021-02-27 19:12 | EKG12_ITS ---
Test Reason : DIZZY Blood Pressure : / mmHG Vent. Rate : 074 BPM Atrial Rate : 074 BPM P-R Int : 208 ms QRS Dur : 090 ms QT Int : 422 ms P-R-T Axes : 025 008 050 degrees QTc Int : 468 ms Normal sinus rhythm Normal ECG Confirmed by ERICK ALFARO, HOOD ([id number]), non linear editor ANNIKA RODRIGUEZ ([id number]) on 03/01/2021 10:39:47 AM Referred By: RU Confirmed By:HOOD SUAREZ MD
--- NOTE | 2021-02-27 19:14 | EDS_ITS ---
HPI History of Present Illness Chief Complaint: Dizziness Detail of Chief Complaint: Dizziness that started several hours ago Informant: patient Narrative Narrative: Patient presents to the emergency department with sudden onset of dizziness while sitting. Patient states that initially felt like things were spinning around and round and he got nauseated and did vomit x1. Patient complains of headache and states that he is out of it and slow to respond at times. Patient recently diagnosed with PE and is currently on anticoagulation with Eliquis. Patient denies any falls or head injuries. He has also had a cough for about 4 5 days. He complains of wheezing at times with laying flat. Patient has had the Covid vaccine. He denies any fevers. Patient does have history of vertigo. Currently he feels just lightheaded and does not feel well. [facility] Medical History COPD (chronic obstructive pulmonary disease) Diabetes Hypertension Home Medications magnesium oxide 400 mg PO DAILY 11/25/14 [History Last Taken 02/24/16] metformin 1,000 mg PO BIDCM 11/25/14 [History Last Taken Unknown] multivitamin,ve-taic-Nu-FA-min 1 ea PO DAILY 11/25/14 [History Last Taken 02/24/16] pramipexole 0.25 mg PO QHS 11/25/14 [History Last Taken 02/23/16] atorvastatin 20 mg PO QHS #30 tablet 12/09/14 [Rx Last Taken 02/23/16] calcium carbonate-vitamin D3 [Oyster Shell Calcium-Vit D3] 1 tab PO BIDCM #0 tablet 12/09/14 [Rx Last Taken 02/24/16] amlodipine 5 mg PO DAILY 02/24/16 [History Last Taken 02/24/16] fluticasone propionate 2 spray NASAL DAILY 02/24/16 [History Last Taken 02/24/16] fosinopril 40 mg PO DAILY 02/24/16 [History Last Taken 02/24/16] metoprolol tartrate 25 mg PO DAILY 02/24/16 [History Last Taken Unknown] fluticasone furoate-vilanterol 1 puff INHALATION DAILY 03/25/20 [History Last Taken Unknown] mirtazapine 15 mg PO QHS 03/25/20 [History Last Taken Unknown] apixaban [Eliquis] 5 mg PO BID #74 tab 12/16/20 [Rx Last Taken Unknown] dulaglutide [Trulicity] 1.5 mg SUBCUT QWEEK 12/16/20 [History Last Taken Unknown] losartan 100 mg PO DAILY 12/16/20 [History Last Taken Unknown] albuterol sulfate 2 puff INHALATION Q4H PRN PRN 02/27/21 [History Last Taken Unknown] ergocalciferol (vitamin D2) [Vitamin D2] 1,000 unit PO DAILY 02/27/21 [History Last Taken Unknown] meclizine 25 mg PO TID PRN #10 tab 02/27/21 [Rx Last Taken Unknown] ondansetron 4 mg PO Q8H PRN PRN #10 tab 02/27/21 [Rx Last Taken Unknown] Allergy/AdvReac Type Severity Reaction Status Date / Time erythromycin base AdvReac Diarrhea Verified 02/27/21 18:10 Surgical History Status post reverse total shoulder replacement Social History Smoking Status: Never smoker ROS ROS ED ROS Narrative Dizziness Constitutional Constitutional ED: Reports systems reviewed and no addt'l complaints, except as documented; Denies body ache(s), change in weight or chills Eyes Eyes: Denies acute decrease in peripheral vision, change in vision, double visi on or loss of vision ENT ENT ED: Reports none; Denies ear pain, lip swelling, loss taste/smell, neck pa in, otalgia or sore throat Cardiovascular Cardiovascular: Reports none; Denies abdominal pain, chest pain with activity, leg edema, lightheadedness, palpitations, rapid heart rate or syncope Respiratory/Chest Respiratory/Chest: Reports none and cough; Denies change in mental status, dry cough, dyspnea, hemoptysis, shortness of breath at rest or shortness of breath with exertion Gastrointestinal Gastrointestinal: Reports none, nausea and vomiting; Denies abdominal pain, change in stool character, diarrhea, hematemesis, hematochezia, melena or rectal bleeding Genitourinary Genitourinary ED: Reports none; Denies abdominal discomfort, anuria, dysuria, genital pain or polyuria Musculoskeletal Musculoskeletal: Reports none; Denies arthralgias, back pain, difficulty walking, extremity pain, muscle weakness or myalgias Integumentary Reports none; Denies abscess or rash Neurologic Neurologic: Reports none and headache(s); Denies abnormal gait, confusion, focal weakness, frequent falls, loss of vision, numbness, paresthesias, radicular pain, vertigo or weakness Psychiatric Psychiatric: Reports systems reviewed and no addt'l complaints, except as documented and none; Denies behavioral changes, confusion, difficulty concentrating, hallucinations, suicidal ideation, tactile hallucinations or visual hallucinations Endocrine Endocrinology: Denies none, cold intolerance, excessive sweating, fatigue or heat intolerance Hematologic/Lymphatic Hematologic/Lymphatic: Reports none; Denies anemia, easy bleeding or easy bruising Allergic/Immunologic Allergic/Immunologic ED: Denies as per HPI, none, lip swelling, mouth swelling, throat swelling, tongue swelling or hives EXAM Physical Exam Const Vital Signs: 02/27/21 18:07 02/27/21 18:59 02/27/21 19:31 Temperature 98.4 F Temperature Source Temporal Pulse Rate 80 Pulse Rate [Lying] 78 Pulse Rate [Sitting] 79 Pulse Rate [Standing] 82 Respiratory Rate 16 Respiratory Effort Normal Respiratory Pattern Normal Blood Pressure 166/84 H Blood Pressure [Lying] 156/86 H Blood Pressure [Sitting] 164/93 H Blood Pressure [Standing] 164/92 H Blood Pressure Mean 111 Blood Pressure Mean [Lying] 109 Blood Pressure Mean [Sitting] 116 Blood Pressure Mean [Standing] 116 Pulse Ox 95 Oxygen Delivery Method Room Air 02/27/21 21:00 Temperature Temperature Source Pulse Rate 71 Pulse Rate [Lying] Pulse Rate [Sitting] Pulse Rate [Standing] Respiratory Rate 20 H Respiratory Effort Respiratory Pattern Blood Pressure 140/80 H Blood Pressure [Lying] Blood Pressure [Sitting] Blood Pressure [Standing] Blood Pressure Mean 100 Blood Pressure Mean [Lying] Blood Pressure Mean [Sitting] Blood Pressure Mean [Standing] Pulse Ox 96 Oxygen Delivery Method Room Air Positive well nourished and well developed General Appearance ED: well developed and NAD HEENT Reports TM's clear and moist mucous membranes normocephalic and atraumatic; Negative for trauma or tenderness Tympanic Membrane ED: Yes TM's clear Eyes PERRL and EOMs intact bilaterally General Eye ED: Negative for pale conjunctiva or scleral icterus Neck no lymphadenopathy, supple and no JVD General: Negative for tenderness Chest Wall inspection of chest normal and palpation of chest normal Chest: Negative for tenderness Resp normal respiratory effort and clear to auscultation bilaterally Effort and Inspection: Negative for respiratory distress or pain with movement Auscultation: Negative for rhonchi, wheezes or diminished lung sounds Cardio regular rate, regular rhythm, S1 normal heart sound, S2 normal heart sound and no murmurs Peripheral Pulses: pulses 2+ throughout GI normal to inspection, nondistended, normoactive bowel sounds, soft to palpation, non-tender, non-distended and no masses Back/Spine no CVA tenderness and no thoracic nor lumbar tenderness Extremity normal to inspection General Extremety ED: Negative for edema General Extremity: Negative for edema Neuro oriented x3, CN's II-XII intact bilaterally, no sensory deficits noted and gait normal Neuro Narrative: Hallpike maneuver negative for nystagmus. Sensorium / Orientation: awake, alert, oriented to person, oriented to place and oriented to time Motor Exam: strength 5/5 throughout and strength abnormal Psych mental status grossly normal Skin no rashes or lesions noted and no wounds MDM MDM MDM Narrative Medical decision making narrative: Patient placed on a monitoring engineer on arrival. Patient had normal saline given. Patient had no further vomiting and no further episodes of vertigo. Work-up otherwise unremarkable. Patient advised to follow-up with his primary care physician within next 3 to 5 days. He will be given a prescription for Antivert and Zofran for as needed. Lab Data Attestation: I reviewed the patient's lab results. Labs: Laboratory Results - last 24 hr 02/27/21 02/27/21 19:30 19:30 WBC 8.4 RBC 5.01 Hgb 14.1 Hct 44.9 MCV 89.6 MCH 28.1 MCHC 31.4 L RDW Std Deviation 47.5 H RDW Coeff of Cristal 14.6 Plt Count 218 MPV 9.8 Immature Gran % (Auto) 1.000 H Neut % (Auto) 69.5 Lymph % (Auto) 16.3 L [facility] % (Auto) 8.6 Eos % (Auto) 4.0 Baso % (Auto) 0.6 Absolute Neuts (auto) 5.9 Absolute Lymphs (auto) 1.37 Nucleated RBC % 0 Sodium 140 Potassium 4.0 Chloride 106 Carbon Dioxide 26.0 Anion Gap 8 BUN 23 H Creatinine 1.08 Estim Creat Clear Calc 72.94 Est GFR (MDRD) Af Amer 87 Est GFR (MDRD) Non-Af 72 BUN/Creatinine Ratio 21.3 H Glucose 154 H Calcium 9.1 Troponin I High Sens 8 Radiography Chest X-Ray - ED: 1 View Diagnostic Testing: Radiology Impression Brain CT 02/27/21 19:11 IMPRESSION: 1. No acute abnormality. 2. Minimal remote ischemic changes. 3. Less than 5mm bilateral chronic stable subdural effusions. Electronically Signed: Akshat Durán MD at 20:42 EDT Tel , Service support , 1 view chest x-ray obtained interpreted by myself as no acute disease process. Official report from radiology pending. EKG Initial EKG: Attestation: I personally reviewed and interpreted this EKG as follows: Comments: Sinus rhythm with a ventricular rate of 74 bpm with no acute ST segment changes Discharge Plan Triage Chief Complaint: Dizziness ED Provider: Duc Anaya Dx/Rx/DC Orders Clinical Impression: Benign paroxysmal positional vertigo Instructions: ED BPV Vertigo Prescriptions: New ondansetron [ondansetron] 4 MG tablet 4 mg PO Q8H PRN PRN (Reason: Nausea) Qty: 10 RF: 0 meclizine 25 mg tablet 25 mg PO TID PRN (Reason: dizziness) Qty: 10 RF: 0 No Action magnesium oxide 400 MG tablet 400 mg PO DAILY RF: 0 multivitamin,kt-ktgu-Nh-FA-min 1 EACH tablet 1 ea PO DAILY RF: 0 metformin 1,000 MG tablet 1,000 mg PO BIDCM RF: 0 pramipexole 0.25 MG tablet 0.25 mg PO QHS RF: 0 calcium carbonate-vitamin D3 [Oyster Shell Calcium-Vit D3] 1 TABLET tablet 1 tab PO BIDCM Qty: 0 RF: 0 atorvastatin 20 MG tablet 20 mg PO QHS Qty: 30 RF: 0 amlodipine 5 MG tablet 5 mg PO DAILY RF: 0 fosinopril 40 MG tablet 40 mg PO DAILY RF: 0 fluticasone propionate 1 SPRAY spray,suspension 2 spray NASAL DAILY RF: 0 metoprolol tartrate 25 MG tablet 25 mg PO DAILY RF: 0 mirtazapine 15 MG tablet 15 mg PO QHS RF: 0 fluticasone furoate-vilanterol 1 EACH blister with device 1 puff INHALATION DAILY RF: 0 losartan 100 mg tablet 100 mg PO DAILY RF: 0 Trulicity 1.5 mg/0.5 mL pen injector 1.5 mg SUBCUT QWEEK RF: 0 Eliquis 5 mg tablet 5 mg PO BID Qty: 74 RF: 0 albuterol sulfate 90 mcg/actuation HFA aerosol inhaler 2 puff INHALATION Q4H PRN PRN (Reason: sob & or wheezing) RF: 0 Vitamin D2 1,000 unit Capsule 1,000 unit PO DAILY RF: 0 Primary Care Provider: Roberto Carlos Fernandes Referrals: Roberto Carlos Fernandes MD [Primary Care Provider] - 3-5 Days Disposition Disposition: Home, Self Care
[2021-02-27 19:31] VITALS: BP 156/86; BP 164/92; BP 164/93; PULSE 78; PULSE 79; PULSE 82
[2021-02-27] MEDS: 0.9% Normal Saline 1,000 ML 150 ML IV (19:37)
[2021-02-27 19:52] LABS: Absolute Lymphocyte Count 1.37 X10^3/uL (0.83-4.51); Absolute Neutrophil Count 5.9 X10^3/uL (2.0-7.7); Basophil# 0.05 X10^3/uL; Basophil% 0.6 % (0-1); Eosinophil# 0.34 X10^3/uL; Hematocrit 44.9 % (40-54); Hemoglobin 14.1 g/dL (13.0-16.5); Lymphocyte # 1.37 X10^3/ul (0.83-4.51); Lymphocyte % 16.3 % (19-41); Mean Corp Hgb Conc 31.4 g/dL (32-36); Mean Corpuscular Hgb 28.1 pg (27.0-32.0); Mean Corpuscular Volume 89.6 fL (80-94); Mean Platelet Vol. 9.8 fl (6.2-12.0); Monocyte# 0.72 X10^3/uL; Monocyte% 8.6 % (0-10); NRBC Flagged by Analyzer 0 % (0-5); Neutrophil # 5.85 X10^3/uL (2.7-7.7); Neutrophil % 69.5 % (47-70); Platelet Count 218 K/mm3 (150-450); RBC Distribution Width CV 14.6 % (11.6-14.6); RBC Distribution Width SD 47.5 fl (35.1-43.9); Red Blood Count 5.01 M/mm3 (4.6-6.2); White Blood Count 8.4 K/mm3 (4.4-11.0)
[2021-02-27 20:02] LABS: Anion Gap 8 (5-15); BUN 23 mg/dL (7-18); BUN/Creat Ratio 21.3 RATIO (10-20); Calcium,Total 9.1 mg/dL (8.5-10.1); Chloride 106 mmol/L (98-107); Creatinine, Serum 1.08 mg/dL (0.70-1.30); EST Glomerular Filtration Rate 72 mL/min (>60); Est Glom Filt Rate - Afr Amer 87 mL/min (>60); Estimated Creatinine Clearance 72.94 ml/min; Glucose 154 mg/dL (74-106); Sodium Level 140 mmol/L (136-145); Troponin-I HS 8 pg/mL (3.0-78.0)
[2021-02-27 21:00] VITALS: BP 140/80; PULSE 71; RESP 20; O2SAT 96
--- NOTE | 2021-02-27 21:27 | RAD_ITS ---
STUDY: X-RAY CHEST REASON FOR EXAM: Male, 71 years old. Cough and dizziness. TECHNIQUE: AP COMPARISON: CT chest 12/16/2020. FINDINGS: No evidence of pneumonia, pulmonary edema, pneumothorax or pleural effusion. Cardiac silhouette, hilar and mediastinal contours with no acute findings. Heart size normal. Previous sternotomy. Atherosclerosis of the thoracic aorta. Degenerative osseous changes with no acute osseous abnormality. RAD/Chest 1 View (Portable) IMPRESSION: No acute findings. Electronically Signed: Frank Larose MD at 22:51 EDT Tel , Service support ,
[2021-02-27 22:02] VITALS: BP 154/80
== END 2021-02-27 22:04 | disposition home or self-care (01) ==
PROVIDERS: Emergency Provider Emergency Medicine; PCP Family Medicine
DX: H81.10 Benign paroxysmal vertigo, unspecified ear (principal); I10 Essential (primary) hypertension; E11.9 Type 2 diabetes mellitus without complications; J44.9 Chronic obstructive pulmonary disease, unspecified; Z79.84 Long term (current) use of oral hypoglycemic drugs; Z79.899 Other long term (current) drug therapy
CPT/HCPCS: 70450; 71045; 80048; 84484; 85025; 87426; 93005; 96360; 96361; 99285; J7030

== ENCOUNTER → 2021-03-31 13:41 | Outpatient (CLI) | payer MEDICARE, OTHER, SELFPAY ==
--- NOTE | 2021-03-31 13:45 | ECHOD_ITS ---
Version 2 Reason For Study: Hx PE, SOB/Dyspnea Procedure This was a 2D Doppler, Color Flow transthoracic echocardiogram. Exam performed in department. Left Ventricle Normal LV size. Mild concentric left ventricular hypertrophy. Left ventricular systolic function is normal. The estimated ejection fraction is 55 %. Stage 1 diastolic dysfunction. No regional wall motion abnormalities noted. Right Ventricle Normal RV size. Normal systolic function. Atria Normal left atrium. Normal right atrium. Mitral Valve Normal mitral valve. Tricuspid Valve Normal tricuspid valve. Mild tricuspid valve insufficiency. Pulmonary artery systolic pressure is 26 mmHg. Aortic Valve Bicuspid aortic valve. Mild (1+) aortic valve insufficiency. Pulmonic Valve Normal pulmonic valve. Great Vessels Normal aortic root. The pulmonary artery is normal size. Normal inferior vena cava. Pericardium/Pleural No pericardial effusion. MMode/2D Measurements & Calculations LVIDd: 3.8 cm IVSd: 1.4 cm LVOT diam: 2.0 cm LVIDs: 2.8 cm LVPWd: 1.2 cm LVOT area: 3.2 cm2 RVDd: 3.4 cm FS: 27.1 % Ao root diam: 4.1 cm LAV(MOD-bp): 47.1 ml LA A4 area: 16.7 cm2 LA dimension: 3.4 cm LAV(MOD-sp2): 52.8 ml LAV(MOD-sp4): 43.0 ml RA A4 area: 16.5 cm2 Time Measurements MV dec time: 0.34 sec Doppler Measurements & Calculations MV E max mitch: 76.4 cm/sec Lat Peak E' Mitch: 10.5 cm/sec Med Peak E' Mitch: 6.3 cm/sec MV A max mitch: 101.8 cm/sec E/E' lat: 7.3 E/E' med: 12.1 MV E/A: 0.75 MV V2 max: 110.7 cm/sec MV P1/2t max mitch: 79.9 cm/sec Ao V2 max: 284.5 cm/sec MV max P.9 mmHg MV P1/2t: 124.1 msec Ao max P.4 mmHg MV V2 mean: 62.8 cm/sec Ao V2 mean: 192.6 cm/sec MV mean P.8 mmHg MV dec slope: 188.7 cm/sec2 Ao mean P.1 mmHg MV V2 VTI: 29.6 cm MVA(P1/2t): 1.8 cm2 Ao V2 VTI: 59.0 cm MVA(VTI): 2.6 cm2 HOLLIE(I,D): 1.3 cm2 HOLLIE(V,D): 1.1 cm2 LV V1 max: 98.7 cm/sec SV(LVOT): 75.8 ml PA V2 max: 154.1 cm/sec LV V1 max P.9 mmHg LV V1 mean P.8 mmHg LV V1 mean: 61.2 cm/sec LV V1 VTI: 23.7 cm TR max mitch: 237.3 cm/sec TR max P.5 mmHg ECHO/Echo Complete Interpretation Summary Normal LV size. Left ventricular systolic function is normal. The estimated ejection fraction is 55 %. Bicuspid aortic valve. Mild (1+) aortic valve insufficiency. Stage 1 diastolic dysfunction. Mild concentric left ventricular hypertrophy. Ordering Physician: Lionel Feliz Referring Physician: Roberto Carlos Fernandes Performed By: Jose Miguel Ya RCS
== END ==
PROVIDERS: PCP Family Medicine; Referring Provider Internal Medicine Pulmonary Disease; Visit Provider Internal Medicine Pulmonary Disease
DX: R06.00 Dyspnea, unspecified (principal); Z86.711 Personal history of pulmonary embolism
CPT/HCPCS: 93306

== ENCOUNTER 2021-07-26 11:37 | Outpatient (CLI) | payer MEDICARE, OTHER, SELFPAY ==
[2021-07-31 21:07] LABS: Alternaria tenuis <0.10 kU/L (Class 0); Ash, White <0.10 kU/L (Class 0); Aspergillus fumigatus <0.10 kU/L (Class 0); Bermuda Grass <0.10 kU/L (Class 0); Birch <0.10 kU/L (Class 0); Black Walnut <0.10 kU/L (Class 0); Cat Hair / Dander,Stand <0.10 kU/L (Class 0); Cedar, Mountain <0.10 kU/L (Class 0); Cladosporium herbarum <0.10 kU/L (Class 0); Cockroach, American <0.10 kU/L (Class 0); Cottonwood <0.10 kU/L (Class 0); D farinae Mite <0.10 kU/L (Class 0); D pteronyssinus <0.10 kU/L (Class 0); Dog Epithelia <0.10 kU/L (Class 0); Elm, American White <0.10 kU/L (Class 0); Immunoglobulin E 42 IU/mL (6-495); Maple/Box Elder <0.10 kU/L (Class 0); Mouse Urine <0.10 kU/L (Class 0); Mulberry, White <0.10 kU/L (Class 0); Oak, White <0.10 kU/L (Class 0); Pecan <0.10 kU/L (Class 0); Penicillium Notatum <0.10 kU/L (Class 0); Pigweed, Rough <0.10 kU/L (Class 0); Ragweed, Short/Common <0.10 kU/L (Class 0); Russian Thistle <0.10 kU/L (Class 0); Sheep Sorrel <0.10 kU/L (Class 0); Sycamore, American <0.10 kU/L (Class 0); Timothy Grass <0.10 kU/L (Class 0)
== END 2021-07-26 23:59 | disposition home or self-care (01) ==
LOC: LAB 11:39
PROVIDERS: PCP Family Medicine; Referring Provider Internal Medicine Pulmonary Disease; Visit Provider Internal Medicine Pulmonary Disease
DX: J30.9 Allergic rhinitis, unspecified (principal)
CPT/HCPCS: 36415; 82785; 86003

== ENCOUNTER 2021-11-17 15:48 | Outpatient (CLI) | payer MEDICARE, OTHER, SELFPAY ==
[2021-11-17 17:40] LABS: D-Dimer Quantitative (DVT/PE) 0.34 FEU/ug/m (0.27-0.49)
[2021-11-17 20:10] LABS: Homocysteine 9.7 umol/L (3.2-10.7)
[2021-11-25 11:09] LABS: Dilute Prothrombin Time (dPT) 32.3 sec (0.0-47.6); PTT-LA 31.9 sec (0.0-51.9); Protein C Antigen 78 % (60-150); Protein C, Functional 99 % (73-180); Thrombin Time 18.2 sec (0.0-23.0); dPT Confirm Ratio 1.02 Ratio (0.00-1.34)
[2021-11-25 14:01] LABS: Anti-Cardiolipin Ab, IgA, Qn < 9 APL U/mL (0-11); Anti-Cardiolipin Ab, IgG, Qn < 9 GPL U/mL (0-14); Anti-Cardiolipin Ab, IgM, Qn < 9 MPL U/mL (0-12); Antithrombin 3 Function 114 % (75-135); Interpretation Comment: (.)
== END 2021-11-17 23:59 | disposition home or self-care (01) ==
PROVIDERS: PCP Family Medicine; Referring Provider Internal Medicine Pulmonary Disease; Visit Provider Internal Medicine Pulmonary Disease
DX: Z86.718 Personal history of other venous thrombosis and embolism (principal); Z86.711 Personal history of pulmonary embolism
CPT/HCPCS: 36415; 81240; 81241; 83090; 85300; 85302; 85303; 85379; 86147

== ENCOUNTER 2021-12-01 18:26 | Emergency (ER) | payer MEDICARE, OTHER, SELFPAY ==
[2021-12-01 18:27] VITALS: BP 161/92; PULSE 68; RESP 14; TEMP 36.2; O2SAT 95; BMI 30.9
[2021-12-01 18:38] VITALS: BP 160/84; PULSE 66; RESP 18; O2SAT 97
--- NOTE | 2021-12-01 19:35 | EKG12_ITS ---
Test Reason : DYSRHYTHMIA Blood Pressure : / mmHG Vent. Rate : 066 BPM Atrial Rate : 066 BPM P-R Int : 218 ms QRS Dur : 104 ms QT Int : 418 ms P-R-T Axes : 052 027 056 degrees QTc Int : 438 ms Sinus rhythm with 1st degree A-V block Otherwise normal ECG Confirmed by ERICK ALFARO, HOOD ([id number]), news editor ANNIKA RODRIGUEZ ([id number]) on 12/03/2021 11:39:04 AM Referred By: Confirmed By:HOOD SUAREZ MD
[2021-12-01 19:39] VITALS: O2SAT 96
[2021-12-01 19:51] LABS: Absolute Neutrophil Count 4.6 X10^3/uL (2.0-7.7); Basophil# 0.05 X10^3/uL; Basophil% 0.7 % (0-1); Eosinophil# 0.35 X10^3/uL; Eosinophils% 4.7 % (0-5); Hematocrit 44.7 % (40-54); Hemoglobin 14.3 g/dL (13.0-16.5); Lymphocyte % 21.6 % (19-41); Mean Corpuscular Hgb 28.5 pg (27.0-32.0); Mean Corpuscular Volume 89.2 fL (80-94); Mean Platelet Vol. 10.6 fl (6.2-12.0); Monocyte# 0.76 X10^3/uL; Monocyte% 10.3 % (0-10); NRBC Flagged by Analyzer 0 % (0-5); Neutrophil # 4.61 X10^3/uL (2.7-7.7); Neutrophil % 62.3 % (47-70); Platelet Count 206 K/mm3 (150-450); RBC Distribution Width CV 15.9 % (11.6-14.6); RBC Distribution Width SD 51.6 fl (35.1-43.9); Red Blood Count 5.01 M/mm3 (4.6-6.2); White Blood Count 7.4 K/mm3 (4.4-11.0)
--- NOTE | 2021-12-01 19:59 | CT_ITS ---
INDICATION: headache EXAMINATION: CT BRAIN - CT Head or Brain W/O Contrast Injection TECHNIQUE: Multiple axial images were obtained of the head without intravenous contrast. A radiation dose optimization technique was used for this scan. IV Contrast dosage and agent: None. COMPARISON: Head CT 02/27/2021 FINDINGS: BRAIN PARENCHYMA: No intra- or extra-axial hemorrhage. No intracranial mass or mass effect. Dos Santos/white matter differentiation is maintained and there is no blurring of the basal ganglia. There is no hyperdense vessel. Remote infarct right frontal lobe gallegos radiata, unchanged. Posterior fossa structures are unremarkable. CSF SPACES: Prominent extra-axial CSF spaces, unchanged prior exam suspicious for chronic subdural effusions, unchanged in appearance. No hydrocephalus. Basal cisterns are patent. CALVARIUM, SKULL BASE, PARANASAL SINUSES AND MASTOID AIR CELLS: Clear. No discrete lytic or blastic abnormalities. ORBITS: Both extraocular muscles, optic nerves and retrobulbar fat appear unremarkable. Left chronic globe collapse and calcifications. Normal right globe. ASPECTS Score for Acute Strokes: 10 CT/Brain/Head without Contrast IMPRESSION: No acute intracranial pathology. Likely chronic subdural effusions, unchanged compared to prior exam. Electronically Signed: Dakota Roberts DO at 21:07 EDT ,
--- NOTE | 2021-12-01 20:02 | EDS_ITS ---
HPI History of Present Illness Chief Complaint: Shortness of Breath Detail of Chief Complaint: Short of breath, weakness, nausea Informant: patient Onset/Context/Timing Onset: Today Current Severity: Mild Maximum Severity: Moderate Narrative Narrative: Patient presents with multiple complaints. He states that he injured his left leg yesterday after he fell leaving from getting his haircut. He states he lost his balance and became lightheaded falling and striking his left leg. He has abrasions noted just distal to the left knee. He does not believe he hit his head. Today he does not feel well and late afternoon/early evening developed generalized weakness, near syncope, nausea, shortness of breath. He denies chest pain. He denies cough. He has had no vomiting or diarrhea. [facility] Medical History COPD (chronic obstructive pulmonary disease) Diabetes H/O bicuspid aortic valve Hypertension Home Medications magnesium oxide 400 mg (241.3 mg magnesium) tablet 400 mg PO DAILY 11/25/14 [History Last Taken 02/24/16] metformin 1,000 mg tablet 1,000 mg PO BIDCM 11/25/14 [History Last Taken Unknown] multivitamin,wy-[id number]-Pw-FA-min 1 ea PO DAILY 11/25/14 [History Last Taken 02/24/16] pramipexole 0.25 mg tablet 0.25 mg PO QHS 11/25/14 [History Last Taken 02/23/16] atorvastatin 20 mg tablet 20 mg PO QHS ##30 12/09/14 [Rx Last Taken 02/23/16] calcium carbonate 500 mg-vitamin D3 5 mcg (200 unit) tablet (Oyster Shell Calcium-Vitamin D3) 1 tab PO BIDCM ##0 12/09/14 [Rx Last Taken 02/24/16] amlodipine 5 mg tablet 5 mg PO DAILY 02/24/16 [History Last Taken 02/24/16] fluticasone propionate 50 mcg/actuation nasal spray,suspension 2 spray DAILY 02/24/16 [History Last Taken 02/24/16] fosinopril 40 mg tablet 40 mg PO DAILY 02/24/16 [History Last Taken 02/24/16] metoprolol tartrate 25 mg tablet 25 mg PO DAILY 02/24/16 [History Last Taken Unknown] fluticasone furoate 200 mcg-vilanterol 25 mcg/dose inhalation powder 1 puff inhalation DAILY 03/25/20 [History Last Taken Unknown] mirtazapine 15 mg tablet 15 mg PO QHS 03/25/20 [History Last Taken Unknown] apixaban 5 mg tablet (Eliquis) 5 mg PO BID #74 tabs 12/16/20 [Rx Last Taken Unknown] dulaglutide 1.5 mg/0.5 mL subcutaneous pen injector (Trulicity) 1.5 mg subcut QWEEK 12/16/20 [History Last Taken Unknown] losartan 100 mg tablet 100 mg PO DAILY 12/16/20 [History Last Taken Unknown] albuterol sulfate 90 mcg/actuation aerosol inhaler 2 puff inhalation Q4H PRN PRN sob & or wheezing 02/27/21 [History Last Taken Unknown] ergocalciferol (vitamin D2) 1,000 unit capsule 1,000 unit PO DAILY 02/27/21 [History Last Taken Unknown] meclizine 25 mg tablet 25 mg PO TID PRN dizziness #10 tabs 02/27/21 [Rx Last Taken Unknown] ondansetron 4 mg disintegrating tablet 4 mg PO Q8H PRN PRN Nausea #10 tabs 02/27/21 [Rx Last Taken Unknown] Allergy/AdvReac Type Severity Reaction Status Date / Time erythromycin base AdvReac Diarrhea Verified 12/01/21 18:27 Surgical History H/O shoulder replacement History of thoracic aortic aneurysm repair Status post reverse total shoulder replacement Social History Smoking Status: Never smoker ROS ROS ED Constitutional Constitutional ED: Denies chills or fever(s) Eyes Eyes: Denies change in vision or discharge from eye(s) ENT ENT ED: Denies discharge from eye(s), rhinorrhea or sore throat Cardiovascular Cardiovascular: Denies chest pain or palpitations Respiratory/Chest Respiratory/Chest: Reports dyspnea; Denies cough Gastrointestinal Gastrointestinal: Reports nausea; Denies abdominal pain, diarrhea or vomiting Genitourinary Genitourinary ED: Denies difficulty urinating or dysuria Musculoskeletal Musculoskeletal: Reports extremity pain; Denies back pain Integumentary Reports Abrasions; Denies rash Neurologic Neurologic: Reports headache(s) and weakness Allergic/Immunologic Allergic/Immunologic ED: Denies lip swelling or urticaria EXAM Physical Exam Const Vital Signs: 12/01/21 18:27 12/01/21 18:38 12/01/21 18:38 Temperature 97.1 F L Temperature Source Temporal Pulse Rate 68 66 Respiratory Rate 14 18 Respiratory Effort Normal Non-Labored Respiratory Depth Normal Respiratory Pattern Normal Blood Pressure 161/92 H 160/84 H Blood Pressure Mean 115 109 Pulse Ox 95 97 Oxygen Delivery Method Room Air Room Air Room Air 12/01/21 19:39 12/01/21 19:39 12/01/21 20:04 Temperature Temperature Source Pulse Rate 64 Respiratory Rate 16 Respiratory Effort Respiratory Depth Respiratory Pattern Blood Pressure 159/89 H Blood Pressure Mean 112 Pulse Ox 96 96 98 Oxygen Delivery Method Room Air Room Air Room Air Positive well nourished and well developed General Appearance ED: well developed HEENT Reports normocephalic and head/scalp atraumatic Eyes PERRL and EOMs intact bilaterally Neck supple Chest Wall inspection of chest normal and palpation of chest normal Resp normal respiratory effort and clear to auscultation bilaterally Cardio regular rate and regular rhythm Heart Sounds: murmur GI normal to inspection, nondistended, normoactive bowel sounds Palpation: soft Extremity Extremity Narrative: Small abrasion noted to the anterior right knee with no bony tenderness. 2 abrasions noted to the left lower extremity just distal to the knee. No bony tenderness with good range of motion. Neuro oriented x3 Neuro Narrative: No focal neurologic deficits. Sensorium / Orientation: alert Psych mental status grossly normal Skin no rashes or lesions noted MDM MDM MDM Narrative Medical decision making narrative: Patient is given IV fluids. Head CT and chest x-ray ordered. Lab work obtained along with a COVID swab. Lab Data Attestation: I reviewed the patient's lab results. Lab results narrative: Rapid COVID: Negative Labs: Laboratory Results - last 24 hr 12/01/21 12/01/21 12/01/21 19:01 19:01 20:20 WBC 7.4 RBC 5.01 Hgb 14.3 Hct 44.7 MCV 89.2 MCH 28.5 MCHC 32.0 RDW Std Deviation 51.6 H RDW Coeff of Cristal 15.9 H Plt Count 206 MPV 10.6 Immature Gran % (Auto) 0.400 Neut % (Auto) 62.3 Lymph % (Auto) 21.6 [place] % (Auto) 10.3 H Eos % (Auto) 4.7 Baso % (Auto) 0.7 Absolute Neuts (auto) 4.6 Absolute Lymphs (auto) 1.60 Nucleated RBC % 0 D-Dimer Quant (PE/DVT) Cancelled Sodium 140 Potassium 3.9 Chloride 108 H Carbon Dioxide 26.0 Anion Gap 6 BUN 16 Creatinine 0.92 Estim Creat Clear Calc 83.23 Est GFR (MDRD) Af Amer 104 Est GFR (MDRD) Non-Af 86 BUN/Creatinine Ratio 17.4 Glucose 92 Calcium 9.4 Troponin I High Sens 12/01/21 12/01/21 20:20 20:20 WBC RBC Hgb Hct MCV MCH MCHC RDW Std Deviation RDW Coeff of Cristal Plt Count MPV Immature Gran % (Auto) Neut % (Auto) Lymph % (Auto) [place] % (Auto) Eos % (Auto) Baso % (Auto) Absolute Neuts (auto) Absolute Lymphs (auto) Nucleated RBC % D-Dimer Quant (PE/DVT) 0.35 Sodium Potassium Chloride Carbon Dioxide Anion Gap BUN Creatinine Estim Creat Clear Calc Est GFR (MDRD) Af Amer Est GFR (MDRD) Non-Af BUN/Creatinine Ratio Glucose Calcium Troponin I High Sens 7 Radiography Chest X-Ray - ED: 1 View, Read by ED Physician, Normal, Heart, Lungs and Mediastinum Diagnostic Testing: Clinical Impression(s) from Imaging Studies Brain CT 12/01/21 19:59 IMPRESSION: No acute intracranial pathology. Likely chronic subdural effusions, unchanged compared to prior exam. Electronically Signed: Dakota Roberts DO at 21:07 EDT , Chest X-Ray 12/01/21 20:10 IMPRESSION: 1. No radiographic evidence of acute cardiopulmonary disease. Electronically Signed: Dakota Roberts DO at 21:15 EDT , EKG Initial EKG: Attestation: I personally reviewed and interpreted this EKG as follows: Interpretation: Sinus Rhythm (Sinus at 66 with no acute ischemia.) Treatment and Re-Evaluation Narrative: Repeat evaluation patient resting comfortably. He reports his headache is improving. Head CT reveals chronic changes, unchanged from prior. Lab work is unremarkable including a normal D-dimer and troponin. Chest x-ray reveals no infiltrate per my interpretation. Radiology interpretation is reviewed and agrees agrees. At this time I suspect patient likely has a viral cause of his symptoms. We encouraged supportive care at home. He will receive a 50 mg dose of Toradol here prior to discharge. He will use Tylenol or ibuprofen at home. Discharge Plan Triage Chief Complaint: Shortness of Breath ED Provider: Kayla Lomeli Dx/Rx/DC Orders Clinical Impression: Viral syndrome Instructions: ED Viral Syndrome (Adult) Prescriptions: No Action magnesium oxide 400 MG tablet 400 mg PO DAILY Label Comments: supplement multivitamin,kv-aubi-Cb-FA-min 1 EACH tablet 1 ea PO DAILY Label Comments: vitamin metformin 1,000 MG tablet 1,000 mg PO BIDCM Label Comments: diabetes/ control blood sugar levels pramipexole 0.25 MG tablet 0.25 mg PO QHS Label Comments: restless legs calcium carbonate-vitamin D3 [Oyster Shell Calcium-Vit D3] 1 TABLET tablet 1 tab PO BIDCM Qty: 0 0RF Label Comments: supplement atorvastatin 20 MG tablet 20 mg PO QHS Qty: 30 0RF Label Comments: cholesterol amlodipine 5 MG tablet 5 mg PO DAILY Label Comments: BLOOD PRESSURE fosinopril 40 MG tablet 40 mg PO DAILY Label Comments: BLOOD PRESSURE fluticasone propionate 1 SPRAY spray,suspension 2 spray NASAL DAILY Label Comments: ALLERGIES metoprolol tartrate 25 MG tablet 25 mg PO DAILY Label Comments: BLOOD PRESSURE/ PULSE mirtazapine 15 MG tablet 15 mg PO QHS fluticasone furoate-vilanterol 1 EACH blister with device 1 puff INHALATION DAILY Label Comments: INHALE 1 PUFF BY MOUTH ONCE DAILY WITH GOOD ORAL CARE losartan 100 mg tablet 100 mg PO DAILY Label Comments: TAKE 1 TABLET BY MOUTH ONCE DAILY Trulicity 1.5 mg/0.5 mL pen injector 1.5 mg SUBCUT QWEEK Eliquis 5 mg tablet 5 mg PO BID Qty: 74 0RF Rx Instructions: 10 mg twice a day for the first week. Then 5 mg twice a day. albuterol sulfate 90 mcg/actuation HFA aerosol inhaler 2 puff INHALATION Q4H PRN PRN (Reason: sob & or wheezing) Label Comments: INHALE 2 PUFFS BY MOUTH EVERY 4 HOURS NEEDED FOR SHORTNESS OF BREATH AND WHEEZING Vitamin D2 1,000 unit Capsule 1,000 unit PO DAILY ondansetron [ondansetron] 4 MG tablet 4 mg PO Q8H PRN PRN (Reason: Nausea) Qty: 10 0RF meclizine 25 mg tablet 25 mg PO TID PRN (Reason: dizziness) Qty: 10 0RF Primary Care Provider: Roberto Carlos Fernandes Referrals: Roberto Carlos Fernandes MD [Primary Care Provider] - 3-5 Days if not improving Disposition Disposition: Home, Self Care
[2021-12-01 20:04] VITALS: BP 159/89; PULSE 64; RESP 16; O2SAT 98
--- NOTE | 2021-12-01 20:10 | RAD_ITS ---
INDICATION: shortness of breath EXAMINATION/TECHNIQUE: X-RAY - XR Chest 1 View COMPARISON: 02/27/2021 chest x-ray FINDINGS: LINES/DEVICES: None. There are sternotomy wires with the inferior wire fractured, unchanged from prior exam. LUNGS: Symmetric normal lung volumes. No airspace opacity or abnormal interstitial pattern. No nodule or mass. No pleural effusion or pneumothorax. MEDIASTINUM AND CARDIOVASCULAR STRUCTURES: Normal size and contour of the cardiomediastinal silhouette. No evidence of pulmonary vascular congestion. BONES AND SOFT TISSUES: Right shoulder reverse arthroplasty hardware incompletely visualized. Degenerative changes left acromioclavicular joint. RAD/Chest 1 View (Portable) IMPRESSION: 1. No radiographic evidence of acute cardiopulmonary disease. Electronically Signed: Dakota Roberts DO at 21:15 EDT ,
[2021-12-01] MEDS: Ondansetron 4 MG/2 ML Vial IV (20:24)
[2021-12-01] MEDS: 0.9% Normal Saline 1,000 ML 150 ML IV (20:24)
[2021-12-01 20:46] LABS: Anion Gap 6 (5-15); BUN 16 mg/dL (7-18); BUN/Creat Ratio 17.4 RATIO (10-20); Calcium,Total 9.4 mg/dL (8.5-10.1); Chloride 108 mmol/L (98-107); Creatinine, Serum 0.92 mg/dL (0.70-1.30); EST Glomerular Filtration Rate 86 mL/min (>60); Est Glom Filt Rate - Afr Amer 104 mL/min (>60); Estimated Creatinine Clearance 83.23 ml/min; Glucose 92 mg/dL (74-106); Potassium 3.9 mmol/L (3.5-5.1); Sodium Level 140 mmol/L (136-145)
[2021-12-01 20:55] LABS: Troponin-I HS 7 pg/mL (3.0-78.0)
[2021-12-01 21:04] LABS: D-Dimer Quantitative (DVT/PE) 0.35 FEU/ug/m (0.27-0.49)
[2021-12-01 22:31] VITALS: BP 152/82; PULSE 64; RESP 18; O2SAT 97
== END 2021-12-01 22:43 | disposition home or self-care (01) ==
PROVIDERS: Emergency Provider Emergency Medicine; PCP Family Medicine; Visit Provider Emergency Medicine
DX: B34.9 Viral infection, unspecified (principal); J44.9 Chronic obstructive pulmonary disease, unspecified; I71.2 Thoracic aortic aneurysm, without rupture; E11.9 Type 2 diabetes mellitus without complications; I10 Essential (primary) hypertension; R11.0 Nausea; R53.1 Weakness; Z79.84 Long term (current) use of oral hypoglycemic drugs; Z79.899 Other long term (current) drug therapy; Z79.01 Long term (current) use of anticoagulants; S80.211A Abrasion, right knee, initial encounter; W19.XXXA Unspecified fall, initial encounter; S80.812A Abrasion, left lower leg, initial encounter
CPT/HCPCS: 70450; 71045; 80048; 84484; 85025; 85379; 87811; 93005; 94760; 96361; 96374; 96375; 99284; J7030; A4216; J2405

== ENCOUNTER 2021-12-04 07:33 | Emergency (ER) | payer MEDICARE, OTHER, SELFPAY ==
[2021-12-04 07:34] VITALS: BP 162/89; PULSE 74; RESP 18; TEMP 36.3; O2SAT 97; BMI 27.7
--- NOTE | 2021-12-04 07:47 | CT_ITS ---
STUDY: CT ABDOMEN AND PELVIS WITHOUT CONTRAST REASON FOR EXAM: Male, 71 years old. LLQ PAIN RADIATING TO LT FLANK, DB, HTN, TAA REPAIR, CABG RADIATION DOSAGE (If Supplied By Facility): CTDIvol = ( 19.21 ) mGy, DLP = ( 1101.11 ) mGycm TECHNIQUE: Transaxial images were obtained from the dome of the diaphragm to the symphysis pubis without oral contrast, and without intravenous contrast. Sagittal and coronal images were reconstructed. Individualized dose optimization techniques were used for this CT. COMPARISON: None. FINDINGS: There are chronic interstitial fibrotic changes of the lung bases. Normal liver. No intrahepatic biliary duct dilatation or liver mass. Normal gallbladder and extrahepatic biliary system. Normal spleen. Normal pancreas. Normal bilateral adrenal glands. There is moderate cortical atrophy of the right kidney, consistent with chronic medical renal disease. There is moderate cortical atrophy of the left kidney, consistent with chronic medical renal disease. A 2 to 3 mm calyceal stone is present in lower pole of the right kidney. Small cortical-based benign cyst of the lower pole of the right kidney also noted. Parapelvic cystic changes present in the upper pole pelvic region of the right kidney. Mild left hydronephrosis and proximal hydroureter due to an obstructing 6 mm stone in the proximal ureter located 3 cm distal to the UPJ. 2 mm small calyceal stone is seen in the upper pole and lateral aspect of the left kidney. There are 4 additional less than 2 mm stones in the calyces of the lower pole of the left kidney. Chronic mild bilateral perinephric stranding likely due to inflammation. Normal visualized stomach. Normal small intestine. There are multiple colonic diverticula consistent with diverticulosis. No bowel dilatation or obstruction. No free air or free fluid. The appendix is visualized and appears normal. There is diffuse atherosclerotic calcification of the abdominal aorta, without a demonstrated aneurysm. Normal inferior vena cava. Normal retroperitoneum. Normal urinary bladder. Normal abdominal wall. There are diffuse degenerative changes of the visualized lumbar spine. CT/Abdomen/Pelvis without Cont IMPRESSION: 1. Mild left hydronephrosis and proximal hydroureter due to an obstructing 6 mm stone in the proximal ureter located 3 cm distal to the UPJ. 2. Multiple additional bilateral kidney stones. Electronically Signed: Kg Fairchild MD at 8:52 EDT ,
--- NOTE | 2021-12-04 07:48 | EDS_ITS ---
HPI HPI - GI History of Present Illness Chief Complaint: Abd Pain Informant: patient and spouse/S.O. Narrative Narrative: Patient presents with left lateral abdominal pain. This woke him up at about 2:00 this morning. Its bad pressure. He denies that it has moved or migrated. He has had nausea and some dry heaves when is bad. He denies urinary changes. He thought he might be constipated but he has been moving his bowels normally. He also took a bowel stimulant and did move his bowels after this pain started and it did not change the pain. No blood or black in the stool. He has not noticed abnormal urination. No fevers chills. He had a fall a few days ago but he did not hurt his abdomen he has been eating and drinking since, and he has no longer on Eliquis. Patient has had kidney stones but thinks his kidney stone pa in was even worse than this. He is not sure if it is the same type of pain. Nothing notably makes it better or worse. He has had a thoracic aneurysm repair. He denies any knowledge of a abdominal aneurysm. It is not tearing ripping. He has no pain in his back. [facility] Medical History COPD (chronic obstructive pulmonary disease) Diabetes H/O bicuspid aortic valve Hypertension Home Medications magnesium oxide 400 mg (241.3 mg magnesium) tablet 400 mg PO DAILY 11/25/14 [History Last Taken 02/24/16] metformin 1,000 mg tablet 1,000 mg PO BIDCM 11/25/14 [History Last Taken Unknown] multivitamin,fg-xlhl-Nf-FA-min 1 ea PO DAILY 11/25/14 [History Last Taken 02/24/16] pramipexole 0.25 mg tablet 0.25 mg PO QHS 11/25/14 [History Last Taken 02/23/16] atorvastatin 20 mg tablet 20 mg PO QHS ##30 12/09/14 [Rx Last Taken 02/23/16] calcium carbonate 500 mg-vitamin D3 5 mcg (200 unit) tablet (Oyster Shell Calcium-Vitamin D3) 1 tab PO BIDCM ##0 12/09/14 [Rx Last Taken 02/24/16] amlodipine 5 mg tablet 5 mg PO DAILY 09/14/16 [History Last Taken 02/24/16] fluticasone propionate 50 mcg/actuation nasal spray,suspension 2 spray DAILY 02/24/16 [History Last Taken 02/24/16] fosinopril 40 mg tablet 40 mg PO DAILY 02/24/16 [History Last Taken 02/24/16] metoprolol tartrate 25 mg tablet 25 mg PO DAILY 02/24/16 [History Last Taken Unknown] fluticasone furoate 200 mcg-vilanterol 25 mcg/dose inhalation powder 1 puff i nhalation DAILY 03/25/20 [History Last Taken Unknown] mirtazapine 15 mg tablet 15 mg PO QHS 03/25/20 [History Last Taken Unknown] apixaban 5 mg tablet (Eliquis) 5 mg PO BID #74 tabs 12/16/20 [Rx Last Taken Unknown] dulaglutide 1.5 mg/0.5 mL subcutaneous pen injector (Trulicity) 1.5 mg subcut QWEEK 12/16/20 [History Last Taken Unknown] losartan 100 mg tablet 100 mg PO DAILY 12/16/20 [History Last Taken Unknown] albuterol sulfate 90 mcg/actuation aerosol inhaler 2 puff inhalation Q4H PRN PRN sob & or wheezing 02/27/21 [History Last Taken Unknown] ergocalciferol (vitamin D2) 1,000 unit capsule 1,000 unit PO DAILY 02/27/21 [History Last Taken Unknown] meclizine 25 mg tablet 25 mg PO TID PRN dizziness #10 tabs 02/27/21 [Rx Last Taken Unknown] ondansetron 4 mg disintegrating tablet 4 mg PO Q8H PRN PRN Nausea #10 tabs 02/27/21 [Rx Last Taken Unknown] ondansetron 4 mg disintegrating tablet 4 mg PO Q8H PRN nausea and vomiting #10 tabs 12/04/21 [Rx Last Taken Unknown] oxycodone-acetaminophen 5 mg-325 mg tablet (Percocet) 1 tab PO Q6H PRN pain 3 days #12 tabs 12/04/21 [Rx Last Taken Unknown] tamsulosin 0.4 mg capsule (Flomax) 0.4 mg PO DAILY #7 caps 12/04/21 [Rx Last Taken Unknown] Allergy/AdvReac Type Severity Reaction Status Date / Time erythromycin base AdvReac Diarrhea Verified 12/04/21 07:34 Surgical History H/O shoulder replacement History of thoracic aortic aneurysm repair Status post reverse total shoulder replacement Social History Smoking Status: Never smoker ROS ROS ED Constitutional Constitutional ED: Denies chills or fever(s) ENT ENT ED: Denies rhinorrhea or sore throat Cardiovascular Cardiovascular: Denies chest pain, palpitations or racing heartbeat Respiratory/Chest Respiratory/Chest: Denies cough or dyspnea Gastrointestinal Gastrointestinal: Reports abdominal pain, nausea and vomiting; Denies constipation, diarrhea or melena Genitourinary Genitourinary ED: Denies dysuria or hematuria Musculoskeletal Musculoskeletal: Denies back pain or neck pain Integumentary Denies abscess Neurologic Neurologic: Denies headache(s) or paresthesias Psychiatric Psychiatric: Denies anxiety Endocrine Endocrinology: Denies polydipsia or polyphagia Hematologic/Lymphatic Hematologic/Lymphatic: Denies easy bleeding or easy bruising Allergic/Immunologic Allergic/Immunologic ED: Denies mouth swelling EXAM Physical Exam Const Vital Signs: 12/04/21 07:34 12/04/21 09:49 Temperature 97.4 F L 97.8 F Temperature Source Temporal Oral Pulse Rate 74 70 Respiratory Rate 18 16 Blood Pressure 162/89 H 150/74 H Blood Pressure Mean 113 99 Pulse Ox 97 99 Oxygen Delivery Method Room Air Room Air Positive well nourished and well developed Constitutional Narrative: Patient does look uncomfortable General Appearance ED: well developed; Negative for pallor HEENT Reports moist mucous membranes Eyes EOMs intact bilaterally Neck no lymphadenopathy Resp normal respiratory effort Cardio regular rate, regular rhythm and no murmurs GI non-tender, non-distended and no masses GI Narrative: Patient's abdomen actually seems relatively benign. I expected to be quite tender because he looks uncomfortable. But even when he points to the main area of pain its not tender in that area. Back/Spine no CVA tenderness Extremity full ROM Extremity Narrative: Trace peripheral pretibial edema only Neuro Sensorium / Orientation: alert Psych mental status grossly normal Skin no wounds General Skin Exam: Negative for jaundice or pallor MDM MDM MDM Narrative Medical decision making narrative: Can see BC shows no marked abnormalities. Electrolytes are good other than mild relative elevation of the BUN. Glucose is 138. CT scan shows left hydronephrosis with a 6 mm stone in proximal ureter. There are other kidney stones. I had a long talk with him and his that this is likely the source of his symptoms. It is consistent. His long as his urine does not show convincing signs of infection we should be able to get him home with follow-up. His pain is good after initial meds. I am giving him another dose as his pain is coming back. I explained that he has a moderate chance of this stone needing a procedure to get it to pass. It is on the edge of size that will pass. But it still reasonable to give it a trial. I will give him follow-up urology. We discussed reasons to return. Urinalysis does not show any sign of infection. I talked to the patient and his again and reviewed reasons to return and follow-up. Lab Data Attestation: I reviewed the patient's lab results. Labs: Laboratory Results - last 24 hr 12/04/21 12/04/21 12/04/21 07:48 07:48 10:15 WBC 10.9 RBC 5.45 Hgb 15.8 Hct 48.8 MCV 89.5 MCH 29.0 MCHC 32.4 RDW Std Deviation 51.9 H RDW Coeff of Cristal 15.8 H MPV 10.9 Immature Gran % (Auto) 0.500 Neut % (Auto) 76.1 H Lymph % (Auto) 13.6 L [place] % (Auto) 7.0 Eos % (Auto) 2.2 Baso % (Auto) 0.6 Absolute Neuts (auto) 8.3 H Absolute Lymphs (auto) 1.48 Nucleated RBC % 0 Platelet Estimate ADEQUATE Sodium 138 Potassium 4.9 Chloride 107 Carbon Dioxide 26.0 Anion Gap 5 BUN 19 H Creatinine 1.13 Estim Creat Clear Calc 67.76 Est GFR (MDRD) Af Amer 82 Est GFR (MDRD) Non-Af 68 BUN/Creatinine Ratio 16.8 Glucose 138 H Calcium 9.6 Urine Color Yellow Urine Clarity Clear Urine pH 6.0 Ur Specific [place] 1.015 Urine Protein Negative Urine Glucose (UA) Normal Urine Ketones Negative Urine Occult Blood 50 H Urine Nitrite Negative Urine Bilirubin Negative Urine Urobilinogen Normal Ur Leukocyte Esterase Negative Urine RBC 0 SEEN Urine WBC 0 SEEN Ur Squamous Epith Cells 0 SEEN Urine Bacteria 0 SEEN Urine Mucus 0 SEEN Radiography Diagnostic Testing: Clinical Impression(s) from Imaging Studies Abdomen/Pelvis CT 12/04/21 07:47 IMPRESSION: 1. Mild left hydronephrosis and proximal hydroureter due to an obstructing 6 mm stone in the proximal ureter located 3 cm distal to the UPJ. 2. Multiple additional bilateral kidney stones. Electronically Signed: Kg Fairchild MD at 8:52 EDT Reading Location ID and State: [facility] / [place] , Service support , Discharge Plan Triage Chief Complaint: Abd Pain ED Provider: Behzad Blanca Dx/Rx/DC Orders Clinical Impression: Kidney stone on left side, Colic, ureteral Instructions: ED Kidney Stone w/ Colic Prescriptions: New oxycodone-acetaminophen [Percocet] 5-325 mg tablet 1 tab PO Q6H PRN (Reason: pain) 3 Days Qty: 12 0RF ondansetron 4 mg tablet,disintegrating 4 mg PO Q8H PRN (Reason: nausea and vomiting) Qty: 10 0RF tamsulosin [Flomax] 0.4 mg capsule 0.4 mg PO DAILY Qty: 7 0RF No Action magnesium oxide 400 MG tablet 400 mg PO DAILY Label Comments: supplement multivitamin,je-burn-Fp-FA-min 1 EACH tablet 1 ea PO DAILY Label Comments: vitamin metformin 1,000 MG tablet 1,000 mg PO BIDCM Label Comments: diabetes/ control blood sugar levels pramipexole 0.25 MG tablet 0.25 mg PO QHS Label Comments: restless legs calcium carbonate-vitamin D3 [Oyster Shell Calcium-Vit D3] 1 TABLET tablet 1 tab PO BIDCM Qty: 0 0RF Label Comments: supplement atorvastatin 20 MG tablet 20 mg PO QHS Qty: 30 0RF Label Comments: cholesterol amlodipine 5 MG tablet 5 mg PO DAILY Label Comments: BLOOD PRESSURE fosinopril 40 MG tablet 40 mg PO DAILY Label Comments: BLOOD PRESSURE fluticasone propionate 1 SPRAY spray,suspension 2 spray NASAL DAILY Label Comments: ALLERGIES metoprolol tartrate 25 MG tablet 25 mg PO DAILY Label Comments: BLOOD PRESSURE/ PULSE mirtazapine 15 MG tablet 15 mg PO QHS fluticasone furoate-vilanterol 1 EACH blister with device 1 puff INHALATION DAILY Label Comments: INHALE 1 PUFF BY MOUTH ONCE DAILY WITH GOOD ORAL CARE losartan 100 mg tablet 100 mg PO DAILY Label Comments: TAKE 1 TABLET BY MOUTH ONCE DAILY Trulicity 1.5 mg/0.5 mL pen injector 1.5 mg SUBCUT QWEEK Eliquis 5 mg tablet 5 mg PO BID Qty: 74 0RF Rx Instructions: 10 mg twice a day for the first week. Then 5 mg twice a day. albuterol sulfate 90 mcg/actuation HFA aerosol inhaler 2 puff INHALATION Q4H PRN PRN (Reason: sob & or wheezing) Label Comments: INHALE 2 PUFFS BY MOUTH EVERY 4 HOURS NEEDED FOR SHORTNESS OF BREATH AND WHEEZING Vitamin D2 1,000 unit Capsule 1,000 unit PO DAILY ondansetron [ondansetron] 4 MG tablet 4 mg PO Q8H PRN PRN (Reason: Nausea) Qty: 10 0RF meclizine 25 mg tablet 25 mg PO TID PRN (Reason: dizziness) Qty: 10 0RF Primary Care Provider: Roberto Carlos Fernandes Referrals: Sumit Sorenson MD [STAFF PHYSICIAN] - 3-5 Days Roberto Carlos Fernandes MD [Primary Care Provider] - Disposition Disposition: Home, Self Care
[2021-12-04] MEDS: Morphine 4 MG/ML Syringe IV ×2 (07:51→09:11)
[2021-12-04] MEDS: Ondansetron 4 MG/2 ML Vial IV (07:52)
[2021-12-04 08:00] LABS: Absolute Lymphocyte Count 1.48 X10^3/uL (0.83-4.51); Absolute Neutrophil Count 8.3 X10^3/uL (2.0-7.7); Basophil# 0.07 X10^3/uL; Basophil% 0.6 % (0-1); Eosinophil# 0.24 X10^3/uL; Eosinophils% 2.2 % (0-5); Hematocrit 48.8 % (40-54); Hemoglobin 15.8 g/dL (13.0-16.5); Lymphocyte # 1.48 X10^3/ul (0.83-4.51); Lymphocyte % 13.6 % (19-41); Mean Corp Hgb Conc 32.4 g/dL (32-36); Mean Corpuscular Volume 89.5 fL (80-94); Mean Platelet Vol. 10.9 fl (6.2-12.0); Monocyte# 0.76 X10^3/uL; NRBC Flagged by Analyzer 0 % (0-5); Neutrophil # 8.25 X10^3/uL (2.7-7.7); Neutrophil % 76.1 % (47-70); POSITIVE COUNT YES; RBC Distribution Width CV 15.8 % (11.6-14.6); RBC Distribution Width SD 51.9 fl (35.1-43.9); Red Blood Count 5.45 M/mm3 (4.6-6.2); White Blood Count 10.9 K/mm3 (4.4-11.0)
[2021-12-04 08:14] LABS: Anion Gap 5 (5-15); BUN 19 mg/dL (7-18); BUN/Creat Ratio 16.8 RATIO (10-20); Calcium,Total 9.6 mg/dL (8.5-10.1); Chloride 107 mmol/L (98-107); Creatinine, Serum 1.13 mg/dL (0.70-1.30); EST Glomerular Filtration Rate 68 mL/min (>60); Est Glom Filt Rate - Afr Amer 82 mL/min (>60); Estimated Creatinine Clearance 67.76 ml/min; Glucose 138 mg/dL (74-106); Potassium 4.9 mmol/L (3.5-5.1); Sodium Level 138 mmol/L (136-145)
[2021-12-04 08:37] LABS: Differential Indicated SCAN CRITERIA MET
[2021-12-04 08:39] LABS: Platelet Estimate ADEQUATE (ADEQ)
[2021-12-04] MEDS: 0.9% Normal Saline 1,000 ML 1000 ML IV (09:11)
[2021-12-04 09:49] VITALS: BP 150/74; PULSE 70; RESP 16; TEMP 36.6; O2SAT 99
[2021-12-04] MEDS: HYDROmorphone 1 MG/ML Syringe IV (10:22)
[2021-12-04 10:24] LABS: Bacteria 0 SEEN /hpf (None Seen); Mucous, Urine 0 SEEN /hpf (<or=2+); Red Blood Cells-Urine 0 SEEN /hpf (0-5); Squamous Epithelial Cells - UA 0 SEEN /hpf (0-5); White Blood Cells 0 SEEN /hpf (0-5)
[2021-12-04 10:26] LABS: Color, Urine Yellow (Yellow); Glucose, Dipstick Normal (Normal); Ketone-Dipstick Negative (Negative); Leukocyte Esterase-Dipstick Negative /ul (Negative); Nitrite-Dipstick Negative (Negative); Occult Blood-Urine 50 /ul (Negative); Protein-Dipstick Negative (Negative); Specific Gravity, Urine 1.015 (1.002-1.030); Urine Bilirubin Dipstick Negative (Negative); Urine Clarity Clear (Clear); Urine Urobilinogen Normal (Normal)
--- NOTE | 2021-12-04 11:11 | ED.RN ---
PRESCRIPTIONS WERE SENT TO [facility] ORIGINALLY. THEN PT REQUESTED THEY GET SENT TO [facility] D/T INSURANCE. CALLED [facility] AND HAD THEM CANCEL ALL [address] GRANADOS ESCRIBED THE PRESCRIPTIONS TO [facility].
[2021-12-04 14:01] LABS: Atypical Lymphocyte 0 %; Auer Rods 0; Differential Comment 0; Dohle Bodies 0; Hypersegmented Neutrophils 0; Reactive Lymphocyte 0; Smudge Cells 0; Toxic Granulation 0; Vacuolated Cells 0
== END 2021-12-04 11:30 | disposition home or self-care (01) ==
PROVIDERS: Emergency Provider Emergency Medicine; PCP Family Medicine; Visit Provider Emergency Medicine
DX: N13.2 Hydronephrosis with renal and ureteral calculous obstruction (principal); J44.9 Chronic obstructive pulmonary disease, unspecified; I71.2 Thoracic aortic aneurysm, without rupture; E11.9 Type 2 diabetes mellitus without complications; I10 Essential (primary) hypertension; Q23.1 Congenital insufficiency of aortic valve; Z79.84 Long term (current) use of oral hypoglycemic drugs; Z79.899 Other long term (current) drug therapy; Z79.01 Long term (current) use of anticoagulants
CPT/HCPCS: 74176; 80048; 81001; 85025; 96361; 96374; 96375; 96376; 99282; J7030; A4216; J2405

== ENCOUNTER 2021-12-11 18:34 | Observation (INO) | payer MEDICARE, OTHER, SELFPAY ==
[2021-12-11 18:34] VITALS: BP 154/82; PULSE 74; RESP 14; TEMP 36.7; O2SAT 96; BMI 30.6
--- NOTE | 2021-12-11 18:48 | CT_ITS ---
STUDY: CT ABDOMEN AND PELVIS WITHOUT CONTRAST REASON FOR EXAM: Male, 71 years old. Left-sided abdominal pain beginning today. Emesis. History of lithotripsy yesterday. RADIATION DOSAGE (If Supplied By Facility): CTDIvol = ( 19.52 ) mGy, DLP = ( 1175.15 ) mGycm TECHNIQUE: Transaxial images were obtained from the dome of the diaphragm to the symphysis pubis without oral contrast, and without intravenous contrast. Sagittal and coronal images were reconstructed. Individualized dose optimization techniques were used for this CT. COMPARISON: 12/04/2021. FINDINGS: The visualized lung bases are unremarkable. The visualized portions of the heart are within normal limits. Normal liver. Normal gallbladder and extrahepatic biliary system. Normal spleen. Normal pancreas. Normal bilateral adrenal glands. The right kidney is of normal size and cortical thickness. There is a 2 mm nonobstructing calculus in upper pole calyx. There is mild stranding of the perinephric fat. There is a upper lobe parapelvic renal cysts. No hydronephrosis. Normal right ureter. Left kidney is normal in size. There is stranding of the perinephric fat. There is millimeter nonobstructing upper pole calyx. There is hydronephrosis and ureterectasis with periureteral stranding to the pelvic sidewall where there is a 3 mm calcification (image 166 of series 2. The distal ureter is unremarkable. Normal visualized stomach. Normal small intestine. Ascending and sigmoid diverticulosis without acute inflammatory change. Proximal colon is unremarkable. The appendix is visualized and appears normal. There is diffuse atherosclerotic calcification of the abdominal aorta, without a demonstrated aneurysm. Normal inferior vena cava. Normal retroperitoneum. Urinary bladder is incompletely distended. There is air seen within the lumen. Normal prostate. There are phleboliths in the pelvis without lymphadenopathy. No free air or free fluid is seen within the peritoneal cavity. Normal abdominal wall. Degenerative changes of the lumbar spine CT/Abdomen/Pelvis without Cont IMPRESSION: 1. Visualization of the left UPJ calculus seen on the previous study. A portion of the stone is seen more distally within the left ureter on the current study. 2. Stable right kidney. 3. Minimal air in the urinary bladder thought to be secondary to yesterday''s lithotripsy. 4. Otherwise stable findings. Electronically Signed: Shun Boudreaux DO at 20:36 EDT ,
--- NOTE | 2021-12-11 18:55 | EDS_ITS ---
HPI HPI - GI History of Present Illness Chief Complaint: Abd Pain Narrative Narrative: 71-year-old male presenting with nausea, vomiting, left sided abdominal pain. He was diagnosed with a 6 mm ureteral stone about a week ago. He continued to have pain after getting Percocet. He states he was not tolerating the Percocet well and this made him sick. He was seen outpatient by Dr. Sorenson's nurse practitioner and had his medications changed to tramadol and ibuprofen 800 mg. Patient states that this was not really helping him. He developed left-sided abdominal pain, nausea, vomiting today. He has not had a fever. He has been constipated for 2 days. He reports that yesterday he had his kidney stone lasered by Dr. Sorenson. He does not have a stent. He has not been on any antibiotics. [facility] Medical History COPD (chronic obstructive pulmonary disease) Diabetes H/O bicuspid aortic valve Hypertension Home Medications magnesium oxide 400 mg (241.3 mg magnesium) tablet 400 mg PO DAILY 11/25/14 [History Last Taken 02/24/16] metformin 1,000 mg tablet 1,000 mg PO BIDCM 11/25/14 [History Last Taken Unknown] multivitamin,jj-zhhq-Ko-FA-min 1 ea PO DAILY 11/25/14 [History Last Taken 02/24/16] pramipexole 0.25 mg tablet 0.25 mg PO QHS 11/25/14 [History Last Taken 02/23/16] atorvastatin 20 mg tablet 20 mg PO QHS ##30 12/09/14 [Rx Last Taken 02/23/16] amlodipine 5 mg tablet 5 mg PO DAILY 02/24/16 [History Last Taken 02/24/16] fluticasone propionate 50 mcg/actuation nasal spray,suspension 2 spray DAILY 02/24/16 [History Last Taken 02/24/16] fosinopril 40 mg tablet 40 mg PO DAILY 02/24/16 [History Last Taken 02/24/16] metoprolol tartrate 25 mg tablet 25 mg PO DAILY 02/24/16 [History Last Taken Unknown] fluticasone furoate 200 mcg-vilanterol 25 mcg/dose inhalation powder 1 puff inhalation DAILY 03/25/20 [History Last Taken Unknown] mirtazapine 15 mg tablet 15 mg PO QHS 03/25/20 [History Last Taken Unknown] dulaglutide 1.5 mg/0.5 mL subcutaneous pen injector (Trulicity) 1.5 mg subcut FR 12/16/20 [History Last Taken Unknown] losartan 100 mg tablet 100 mg PO DAILY 12/16/20 [History Last Taken Unknown] albuterol sulfate 90 mcg/actuation aerosol inhaler 2 puff inhalation Q4H PRN PRN sob & or wheezing 02/27/21 [History Last Taken Unknown] ergocalciferol (vitamin D2) 1,000 unit capsule 1,000 unit PO DAILY 02/27/21 [History Last Taken Unknown] meclizine 25 mg tablet 25 mg PO TID PRN dizziness #10 tabs 02/27/21 [Rx Last Taken Unknown] ondansetron 4 mg disintegrating tablet 4 mg PO Q8H PRN nausea and vomiting #10 tabs 12/04/21 [Rx Last Taken Unknown] oxycodone-acetaminophen 5 mg-325 mg tablet (Percocet) 1 tab PO Q6H PRN pain 3 days #12 tabs 12/04/21 [Rx Last Taken Unknown] aspirin 81 mg chewable tablet 162 mg PO DAILY 12/11/21 [History Last Taken Unknown] Allergy/AdvReac Type Severity Reaction Status Date / Time acetaminophen [From Percocet] AdvReac Other Verified 12/11/21 18:37 erythromycin base AdvReac Diarrhea Verified 12/11/21 18:36 oxycodone [From Percocet] AdvReac Other Verified 12/11/21 18:37 tramadol AdvReac Other Verified 12/11/21 18:37 Surgical History H/O shoulder replacement History of thoracic aortic aneurysm repair Status post reverse total shoulder replacement Social History Smoking Status: Never smoker ROS ROS ED Constitutional Constitutional ED: Denies chills or fever(s) ENT ENT ED: Denies rhinorrhea or sore throat Cardiovascular Cardiovascular: Denies chest pain or palpitations Respiratory/Chest Respiratory/Chest: Denies cough or dyspnea Gastrointestinal Gastrointestinal: Reports abdominal pain, constipation, nausea and vomiting Genitourinary Genitourinary ED: Denies dysuria or hematuria Musculoskeletal Musculoskeletal: Denies arthralgias Integumentary Denies abscess or Abrasions Neurologic Neurologic: Denies headache(s) or paresthesias Psychiatric Psychiatric: Denies anxiety or depression Endocrine Endocrinology: Denies polydipsia or polyphagia EXAM Physical Exam Const Vital Signs: 12/11/21 18:34 12/11/21 20:35 Temperature 98.0 F Temperature Source Temporal Pulse Rate 74 72 Respiratory Rate 14 18 Blood Pressure 154/82 H 139/81 H Blood Pressure Mean 106 100 Pulse Ox 96 94 Oxygen Delivery Method Room Air Room Air Positive well nourished General Appearance ED: NAD HEENT Reports moist mucous membranes normocephalic and atraumatic Eyes PERRL and EOMs intact bilaterally Resp normal respiratory effort Cardio regular rate and regular rhythm GI Palpation: tender LUQ Neuro CN's II-XII intact bilaterally and moves all extremities Sensorium / Orientation: alert Psych mental status grossly normal and thought process normal Skin no wounds MDM MDM MDM Narrative Medical decision making narrative: Patient presenting with increasing abdominal pain. He states he cannot take morphine but Dilaudid helps his pain. He was given a 1 mg dose of this. I obtained blood work and today he has a new leukocytosis of 16.7. His hemoglobin is stable at 14.3. Platelets normal at 243. Creatinine is acutely elevated to 1.2 and was normal on his previous evaluation here in the ER. Electrolytes are normal as well. Urinalysis is negative for infection with there is a small amount of occult blood. Patient required a second dose of Dilaudid 1 mg IV. I obtained a CT of the abdomen pelvis without contrast to assess the kidney stone and there is a visualized UPJ stone which is smaller and a smaller piece of this is distal. I spoke with Dr. Sorenson regarding the patient and having to have repeat doses of pain medication he was amenable to keeping the patient in the hospital overnight. Impression: 1. Flank pain 2. JIMMY 3. Leukocytosis Lab Data Attestation: I reviewed the patient's lab results. Labs: Laboratory Results - last 24 hr 12/11/21 12/11/21 12/11/21 19:12 19:12 19:12 WBC 16.7 H RBC 5.02 Hgb 14.3 Hct 45.0 MCV 89.6 MCH 28.5 MCHC 31.8 L RDW Std Deviation 50.7 H RDW Coeff of Cristal 15.4 H Plt Count 243 MPV 9.5 Immature Gran % (Auto) 0.900 Neut % (Auto) 82.2 H Lymph % (Auto) 8.3 L [place] % (Auto) 8.1 Eos % (Auto) 0.2 Baso % (Auto) 0.3 Absolute Neuts (auto) 13.7 H Absolute Lymphs (auto) 1.38 Nucleated RBC % 0 Sodium 139 Potassium 3.8 Chloride 105 Carbon Dioxide 25.0 Anion Gap 9 BUN 27 H Creatinine 1.82 H Estim Creat Clear Calc 42.07 Est GFR (MDRD) Af Amer 47 L Est GFR (MDRD) Non-Af 39 L BUN/Creatinine Ratio 14.8 Glucose 109 H Calcium 9.9 Urine Color Yellow Urine Clarity Clear Urine pH 6.0 Ur Specific [place] 1.020 Urine Protein Negative Urine Glucose (UA) Normal Urine Ketones Negative Urine Occult Blood 10 H Urine Nitrite Negative Urine Bilirubin Negative Urine Urobilinogen Normal Ur Leukocyte Esterase Negative Urine RBC 0 SEEN Urine WBC 0 SEEN Ur Squamous Epith Cells 0 SEEN Urine Bacteria RARE Urine Mucus 0 SEEN Radiography Diagnostic Testing: Clinical Impression(s) from Imaging Studies Abdomen/Pelvis CT 12/11/21 18:48 IMPRESSION: 1. Visualization of the left UPJ calculus seen on the previous study. A portion of the stone is seen more distally within the left ureter on the current study. 2. Stable right kidney. 3. Minimal air in the urinary bladder thought to be secondary to yesterday''s lithotripsy. 4. Otherwise stable findings. Electronically Signed: Shun Boudreaux DO at 20:36 EDT Reading Location ID and State: [address] [place] [address] Tel [phone], Service support , Discharge Plan Triage Chief Complaint: Abd Pain ED Provider: Josesito Rosa Dx/Rx/DC Orders Prescriptions: No Action magnesium oxide 400 MG tablet 400 mg PO DAILY Label Comments: supplement multivitamin,gm-ycsf-Wd-FA-min 1 EACH tablet 1 ea PO DAILY Label Comments: vitamin metformin 1,000 MG tablet 1,000 mg PO BIDCM Label Comments: diabetes/ control blood sugar levels pramipexole 0.25 MG tablet 0.25 mg PO QHS Label Comments: restless legs atorvastatin 20 MG tablet 20 mg PO QHS Qty: 30 0RF Label Comments: cholesterol amlodipine 5 MG tablet 5 mg PO DAILY Label Comments: BLOOD PRESSURE fosinopril 40 MG tablet 40 mg PO DAILY Label Comments: BLOOD PRESSURE fluticasone propionate 1 SPRAY spray,suspension 2 spray NASAL DAILY Label Comments: ALLERGIES metoprolol tartrate 25 MG tablet 25 mg PO DAILY Label Comments: BLOOD PRESSURE/ PULSE mirtazapine 15 MG tablet 15 mg PO QHS fluticasone furoate-vilanterol 1 EACH blister with device 1 puff INHALATION DAILY Label Comments: INHALE 1 PUFF BY MOUTH ONCE DAILY WITH GOOD ORAL CARE losartan 100 mg tablet 100 mg PO DAILY Label Comments: TAKE 1 TABLET BY MOUTH ONCE DAILY Trulicity 1.5 mg/0.5 mL pen injector 1.5 mg SUBCUT FR albuterol sulfate 90 mcg/actuation HFA aerosol inhaler 2 puff INHALATION Q4H PRN PRN (Reason: sob & or wheezing) Label Comments: INHALE 2 PUFFS BY MOUTH EVERY 4 HOURS NEEDED FOR SHORTNESS OF BREATH AND WHEEZING Vitamin D2 1,000 unit Capsule 1,000 unit PO DAILY meclizine 25 mg tablet 25 mg PO TID PRN (Reason: dizziness) Qty: 10 0RF oxycodone-acetaminophen [Percocet] 5-325 mg tablet 1 tab PO Q6H PRN (Reason: pain) 3 Days Qty: 12 0RF ondansetron 4 mg tablet,disintegrating 4 mg PO Q8H PRN (Reason: nausea and vomiting) Qty: 10 0RF aspirin 81 mg Tablet,Chewable 162 mg PO DAILY Primary Care Provider: Roberto Carlos Fernandes Referrals: Roberto Carlos Fernandes MD [Primary Care Provider] -
[2021-12-11] MEDS: HYDROmorphone 1 MG/ML Syringe IV ×2 (19:10→20:38)
[2021-12-11] MEDS: 0.9% Normal Saline 1,000 ML 999 ML IV (19:10)
[2021-12-11] MEDS: Ondansetron 4 MG/2 ML Vial IV (19:10)
[2021-12-11 19:18] LABS: Mucous, Urine 0 SEEN /hpf (<or=2+); Red Blood Cells-Urine 0 SEEN /hpf (0-5); Squamous Epithelial Cells - UA 0 SEEN /hpf (0-5); White Blood Cells 0 SEEN /hpf (0-5)
[2021-12-11 19:20] LABS: Absolute Lymphocyte Count 1.38 X10^3/uL (0.83-4.51); Absolute Neutrophil Count 13.7 X10^3/uL (2.0-7.7); Basophil# 0.05 X10^3/uL; Basophil% 0.3 % (0-1); Eosinophil# 0.04 X10^3/uL; Eosinophils% 0.2 % (0-5); Hemoglobin 14.3 g/dL (13.0-16.5); Lymphocyte # 1.38 X10^3/ul (0.83-4.51); Lymphocyte % 8.3 % (19-41); Mean Corp Hgb Conc 31.8 g/dL (32-36); Mean Corpuscular Hgb 28.5 pg (27.0-32.0); Mean Corpuscular Volume 89.6 fL (80-94); Mean Platelet Vol. 9.5 fl (6.2-12.0); Monocyte# 1.35 X10^3/uL; Monocyte% 8.1 % (0-10); NRBC Flagged by Analyzer 0 % (0-5); Neutrophil # 13.73 X10^3/uL (2.7-7.7); Neutrophil % 82.2 % (47-70); Platelet Count 243 K/mm3 (150-450); RBC Distribution Width CV 15.4 % (11.6-14.6); RBC Distribution Width SD 50.7 fl (35.1-43.9); Red Blood Count 5.02 M/mm3 (4.6-6.2); White Blood Count 16.7 K/mm3 (4.4-11.0)
[2021-12-11 19:28] LABS: Glucose, Dipstick Normal (Normal); Ketone-Dipstick Negative (Negative); Leukocyte Esterase-Dipstick Negative /ul (Negative); Nitrite-Dipstick Negative (Negative); Occult Blood-Urine 10 /ul (Negative); Protein-Dipstick Negative (Negative); Urine Bilirubin Dipstick Negative (Negative); Urine Urobilinogen Normal (Normal)
[2021-12-11 19:29] LABS: Color, Urine Yellow (Yellow); Urine Clarity Clear (Clear)
[2021-12-11 19:35] LABS: Anion Gap 9 (5-15); BUN 27 mg/dL (7-18); BUN/Creat Ratio 14.8 RATIO (10-20); Calcium,Total 9.9 mg/dL (8.5-10.1); Chloride 105 mmol/L (98-107); Creatinine, Serum 1.82 mg/dL (0.70-1.30); EST Glomerular Filtration Rate 39 mL/min (>60); Est Glom Filt Rate - Afr Amer 47 mL/min (>60); Estimated Creatinine Clearance 42.07 ml/min; Glucose 109 mg/dL (74-106); Potassium 3.8 mmol/L (3.5-5.1); Sodium Level 139 mmol/L (136-145)
[2021-12-11 19:37] LABS: Bacteria RARE /hpf (None Seen)
[2021-12-11 20:35] VITALS: BP 139/81; PULSE 72; RESP 18; O2SAT 94
[2021-12-11 22:07] VITALS: BP 137/71; PULSE 69; RESP 16; TEMP 36.7; O2SAT 94
[2021-12-11 23:06] VITALS: BMI 31.8
[2021-12-11 23:27] VITALS: BP 140/81; PULSE 71; RESP 16; TEMP 36.8; O2SAT 96
[2021-12-11] MEDS: 0.9% Normal Saline 1,000 ML 150 ML IV (23:38)
[2021-12-11] MEDS: HYDROmorphone 0.5 MG/0.5 ML SYRINGE IV (23:39)
[2021-12-11] MEDS: 0.9% Saline Lock 10 ML Syringe IV (23:39)
[2021-12-12] VITALS (8 sets, daily range): BP systolic 113–158; BP diastolic 56–85; PULSE 66–76; RESP 16; TEMP 36.7–37.2; O2SAT 92–100; BMI 31.8
[2021-12-12] MEDS: Cefazolin 1 GM/50 ML BAG IV ×2 (00:01→05:11)
[2021-12-12] MEDS: Ketorolac 15 MG/ML Vial IV ×2 (00:26→06:48)
[2021-12-12] MEDS: 0.9% Saline Lock 10 ML Syringe IV (00:27)
[2021-12-12] MEDS: HYDROmorphone 0.5 MG/0.5 ML SYRINGE IV (05:11)
--- NOTE | 2021-12-12 06:00 | RAD_ITS ---
EXAM: XR ABDOMEN, 1 VIEW CLINICAL INDICATION: kidney stone kidney stone TECHNIQUE: Frontal supine view of the abdomen/pelvis. This report was created using [employer] report generation technology. COMPARISON: CT scan abdomen and pelvis 12/11/2021. FINDINGS: LOWER THORAX: No acute pathology. GASTROINTESTINAL TRACT: There is moderately prominent gas and fecal material in the cecum, ascending, and transverse colon. ORGANS: On the recent CT scan, there was demonstration of a small renal calculi bilaterally as well as a small distal left ureteral calculus. These are not readily visualized in this plain film study. No organomegaly. BONES/JOINTS: No acute pathology. SOFT TISSUES: No acute pathology. RAD/Abdomen Single View (Portable) IMPRESSION: 1. Mildly prominent colonic feces and gas. Otherwise, nonspecific nonobstructive bowel gas pattern. 2. The recently demonstrated small bilateral renal calculi and small left ureteral calculus are not readily reidentified in this plain film study. Electronically Signed: Jerry Bobby MD at 6:27 EDT ,
[2021-12-12] MEDS: 0.9% Normal Saline 1,000 ML 150 ML IV (06:48)
--- NOTE | 2021-12-12 08:28 | NURSING ---
pt left for surgery, notified that pt going to surgery.
--- NOTE | 2021-12-12 08:32 | PCM.HP.STD ---
HPI - General General Date of Admission: 12/11/21 Chief Complaint: Ureteral calculi [facility] Narrative ALEM SHEEHAN, is a 71 M who presents with a very small stone in the distal left ureter severe intractable pain elevated white blood count plan to taken the surgery today for cystoscopy and left stent placement [facility] Medical History (Updated 12/12/21 @ 08:[address] Sumit Sorenson MD) Asthma COPD (chronic obstructive pulmonary disease) CPAP (continuous positive airway pressure) dependence Diabetes H/O bicuspid aortic valve Hypertension Kidney stones Rheumatoid arthritis Vision loss of left eye Home Medications magnesium oxide 400 mg (241.3 mg magnesium) tablet 400 mg PO DAILY 11/25/14 [History Last Taken 02/24/16] metformin 1,000 mg tablet 1,000 mg PO BIDCM 11/25/14 [History Last Taken Unknown] multivitamin,ss-mwug-Jk-FA-min 1 ea PO DAILY 11/25/14 [History Last Taken 02/24/16] pramipexole 0.25 mg tablet 0.25 mg PO QHS 11/25/14 [History Last Taken 02/23/16] atorvastatin 20 mg tablet 20 mg PO QHS ##30 12/09/14 [Rx Last Taken 02/23/16] amlodipine 5 mg tablet 5 mg PO DAILY 02/24/16 [History Last Taken 02/24/16] fluticasone propionate 50 mcg/actuation nasal spray,suspension 2 spray DAILY 02/24/16 [History Last Taken 02/24/16] fosinopril 40 mg tablet 40 mg PO DAILY 02/24/16 [History Last Taken 02/24/16] metoprolol tartrate 25 mg tablet 25 mg PO DAILY 02/24/16 [History Last Taken Unknown] fluticasone furoate 200 mcg-vilanterol 25 mcg/dose inhalation powder 1 puff inhalation DAILY 03/25/20 [History Last Taken Unknown] mirtazapine 15 mg tablet 15 mg PO QHS PRN Sleep 03/25/20 [History Last Taken Unknown] dulaglutide 1.5 mg/0.5 mL subcutaneous pen injector (Trulicity) 1.5 mg subcut FR 12/16/20 [History Last Taken Unknown] losartan 100 mg tablet 100 mg PO DAILY 12/16/20 [History Last Taken Unknown] albuterol sulfate 90 mcg/actuation aerosol inhaler 2 puff inhalation Q4H PRN PRN sob & or wheezing 02/27/21 [History Last Taken Unknown] ergocalciferol (vitamin D2) 1,000 unit capsule 1,000 unit PO DAILY 02/27/21 [History Last Taken Unknown] ondansetron 4 mg disintegrating tablet 4 mg PO Q8H PRN nausea and vomiting #10 tabs 12/04/21 [Rx Last Taken Unknown] aspirin 81 mg chewable tablet 162 mg PO DAILY 12/11/21 [History Last Taken Unknown] carvedilol 6.25 mg tablet 6.25 tab PO BID 12/11/21 [History Last Taken Unknown] Allergy/AdvReac Type Severity Reaction Status Date / Time acetaminophen [From Percocet] AdvReac Other Verified 12/11/21 18:37 erythromycin base AdvReac Diarrhea Verified 12/11/21 18:36 oxycodone [From Percocet] AdvReac Other Verified 12/11/21 18:37 tramadol AdvReac Other Verified 12/11/21 18:37 Surgical History H/O shoulder replacement History of thoracic aortic aneurysm repair Status post reverse total shoulder replacement Social History Smoking Status: Never smoker ROS ROS Narrative Severe left flank pain Vital Signs Vital Signs Vital Signs: 12/11/21 18:34 12/11/21 20:35 12/11/21 22:07 Temperature 98.0 F 98.0 F Temperature Source Temporal Oral Pulse Rate 74 72 69 Pulse Strength Respiratory Rate 14 18 16 Respiratory Effort Respiratory Depth Respiratory Pattern Blood Pressure 154/82 H 139/81 H 137/71 H Blood Pressure Mean 106 100 93 Blood Pressure Source Blood Pressure Position Blood Pressure Location Pulse Ox 96 94 94 Oxygen Delivery Method Room Air Room Air Room Air Oxygen Flow Rate (L/min) 12/11/21 23:27 12/11/21 23:56 12/12/21 05:03 Temperature 98.2 F 98.1 F Temperature Source Oral Oral Pulse Rate 71 66 Pulse Strength Respiratory Rate 16 16 Respiratory Effort Normal Non-Labored Respiratory Depth Normal Respiratory Pattern Normal Blood Pressure 140/81 H 158/78 H Blood Pressure Mean 100 104 Blood Pressure Source Monitor Monitor Blood Pressure Position Semi-Fowlers Semi-Fowlers Blood Pressure Location Left Arm Left Arm Pulse Ox 96 96 Oxygen Delivery Method Room Air Room Air Room Air Oxygen Flow Rate (L/min) 2 12/12/21 08:16 12/12/21 08:28 12/12/21 08:28 Temperature 98.3 F 98.3 F Temperature Source Oral Oral Pulse Rate 70 70 Pulse Strength Normal (2+) Respiratory Rate 16 16 Respiratory Effort Respiratory Depth Respiratory Pattern Blood Pressure 141/76 H 141/76 H Blood Pressure Mean 97 97 Blood Pressure Source Monitor Monitor Blood Pressure Position Semi-Fowlers Semi-Fowlers Blood Pressure Location Left Arm Left Arm Pulse Ox 100 100 Oxygen Delivery Method Room Air Room Air Oxygen Flow Rate (L/min) 12/12/21 08:28 Temperature Temperature Source Pulse Rate Pulse Strength Respiratory Rate Respiratory Effort Normal Respiratory Depth Normal Respiratory Pattern Normal Blood Pressure Blood Pressure Mean Blood Pressure Source Blood Pressure Position Blood Pressure Location Pulse Ox Oxygen Delivery Method Room Air Oxygen Flow Rate (L/min) Weight Weight: 109.2 kg Body Mass Index (BMI) 31.8 Physical Exam Const alert and oriented x3 General Appearance: cooperative HEENT normocephalic, head/scalp atraumatic, EAC's normal and TM's normal bilaterally Eyes PERRL and EOMs intact bilaterally Pupil: sluggish Neck no lymphadenopathy, supple and no JVD General: trachea midline Lymph Lymphatic: no lymphadenopathy noted, lymphedema and lymphadenopathy Resp normal respiratory effort, normal air movement and clear to auscultation bilaterally Cardio regular rate, regular rhythm and peripheral pulses 2+ throughout GI soft to palpation, non-tender and non-distended Extremity normal capillary refill and no clubbing, cyanosis or edema General Extremity: no tenderness to palpation of joints or extremities Skin no rashes or lesions noted General Skin Exam: turgor normal Lesions: no lesions Rashes: no rashes Neuro CN's II-XII intact bilaterally Speech: speech normal Motor Exam: strength 5/5 throughout; Negative for general weakness Psych thought process normal, cooperative and affect normal Appearance: appropriate Results Medical Records Data Attestation: I reviewed the patient's medical records Lab / Micro Data Attestation: I reviewed the patient's lab results. Result Diagrams: 12/11/21 19:12 12/11/21 19:12 Labs: Laboratory Results - last 24 hr 12/11/21 19:12: Urine Color Yellow, Urine Clarity Clear, Urine pH 6.0, Ur Specific [place] 1.020, Urine Protein Negative, Urine Glucose (UA) Normal, Urine Ketones Negative, Urine Occult Blood 10 H, Urine Nitrite Negative, Urine Bilirubin Negative, Urine Urobilinogen Normal, Ur Leukocyte Esterase Negative, Urine RBC 0 SEEN, Urine WBC 0 SEEN, Ur Squamous Epith Cells 0 SEEN, Urine Bacteria RARE, Urine Mucus 0 SEEN 12/11/21 19:12: WBC 16.7 H, RBC 5.02, Hgb 14.3, Hct 45.0, MCV 89.6, MCH 28.5, MCHC 31.8 L, RDW Std Deviation 50.7 H, RDW Coeff of Cristal 15.4 H, Plt Count 243, MPV 9.5, Immature Gran % (Auto) 0.900, Neut % (Auto) 82.2 H, Lymph % (Auto) 8.3 L, [place] % (Auto) 8.1, Eos % (Auto) 0.2, Baso % (Auto) 0.3, Absolute Neuts (auto) 13.7 H, Absolute Lymphs (auto) 1.38, Nucleated RBC % 0 12/11/21 19:12: Sodium 139, Potassium 3.8, Chloride 105, Carbon Dioxide 25.0, Anion Gap 9, BUN 27 H, Creatinine 1.82 H, Estim Creat Clear Calc 42.07, Est GFR (MDRD) Af Amer 47 L, Est GFR (MDRD) Non-Af 39 L, BUN/Creatinine Ratio 14.8, Glucose 109 H, Calcium 9.9 Radiology Impression Abdomen/Pelvis CT 12/11/21 18:48 IMPRESSION: 1. Visualization of the left UPJ calculus seen on the previous study. A portion of the stone is seen more distally within the left ureter on the current study. 2. Stable right kidney. 3. Minimal air in the urinary bladder thought to be secondary to yesterday''s lithotripsy. 4. Otherwise stable findings. Electronically Signed: Shun Boudreaux DO at 20:36 EDT Reading Location ID and State: [address] [place] [address] Tel [phone], Service support , KUB X-Ray 12/12/21 06:00 IMPRESSION: 1. Mildly prominent colonic feces and gas. Otherwise, nonspecific nonobstructive bowel gas pattern. 2. The recently demonstrated small bilateral renal calculi and small left ureteral calculus are not readily reidentified in this plain film study. Electronically Signed: Jerry Bobby MD at 6:27 EDT Reading Location ID and State: [facility] / [place] , Service support , Assessment & Plan Assessment/Plan (1) Kidney stones: PLAN: Plan Small stone in the distal left ureter severe pain plan for cystoscopy and stent placement
--- NOTE | 2021-12-12 08:44 | DCINST_ITS ---
Discharge Instructions Diet Discharge Diet: Light diet - advance as tolerated and Soft diet Activity Discharge Activity: Return to Normal Activity May shower in (days): 1 Follow Up Care Please Follow Up With: Sumit Sorenson MD When: my office will call you Test Results: Test results from this visit will be discussed in further detail at your follow- up appointment, if applicable. Discharge Plan Admission Admit Date/Time: 12/11/21 21:43 Primary Reason for Your Visit: kidney stone Attending Provider: Sumit Sorenson Primary Care Provider: Roberto Carlos Fernandes Discharge Orders/Prescriptions Prescriptions: New ciprofloxacin HCl [Cipro] 500 mg tablet 500 mg PO BID Qty: 10 0RF hydrocodone-acetaminophen 5-325 mg tablet 1 tab PO Q6H PRN (Reason: pain) 7 Days Qty: 10 0RF Continued magnesium oxide 400 MG tablet 400 mg PO DAILY Label Comments: supplement multivitamin,lz-[id number]-Gy-FA-min 1 EACH tablet 1 ea PO DAILY Label Comments: vitamin metformin 1,000 MG tablet 1,000 mg PO BIDCM Label Comments: diabetes/ control blood sugar levels pramipexole 0.25 MG tablet 0.25 mg PO QHS Label Comments: restless legs atorvastatin 20 MG tablet 20 mg PO QHS Qty: 30 0RF Label Comments: cholesterol amlodipine 5 MG tablet 5 mg PO DAILY Label Comments: BLOOD PRESSURE fosinopril 40 MG tablet 40 mg PO DAILY Label Comments: BLOOD PRESSURE fluticasone propionate 1 SPRAY spray,suspension 2 spray NASAL DAILY Label Comments: ALLERGIES metoprolol tartrate 25 MG tablet 25 mg PO DAILY Label Comments: BLOOD PRESSURE/ PULSE mirtazapine 15 MG tablet 15 mg PO QHS PRN (Reason: Sleep) fluticasone furoate-vilanterol 1 EACH blister with device 1 puff INHALATION DAILY Label Comments: INHALE 1 PUFF BY MOUTH ONCE DAILY WITH GOOD ORAL CARE losartan 100 mg tablet 100 mg PO DAILY Label Comments: TAKE 1 TABLET BY MOUTH ONCE DAILY Trulicity 1.5 mg/0.5 mL pen injector 1.5 mg SUBCUT FR albuterol sulfate 90 mcg/actuation HFA aerosol inhaler 2 puff INHALATION Q4H PRN PRN (Reason: sob & or wheezing) Label Comments: INHALE 2 PUFFS BY MOUTH EVERY 4 HOURS NEEDED FOR SHORTNESS OF BREATH AND WHEEZING ergocalciferol (vitamin D2) 1,000 unit Capsule 1,000 unit PO DAILY ondansetron 4 mg tablet,disintegrating 4 mg PO Q8H PRN (Reason: nausea and vomiting) Qty: 10 0RF aspirin 81 mg Tablet,Chewable 162 mg PO DAILY carvedilol 6.25 mg tablet 6.25 tab PO BID Label Comments: TAKE 1 TABLET BY MOUTH TWICE A DAY Referrals / Follow Up: Sumit Sorenson MD [STAFF PHYSICIAN] - Roberto Carlos Fernandes MD [Primary Care Provider] - Disposition Discharge Orders: Discharge Patient (Routine); Ordered 12/12/21 Ordered By: Dr. Sumit Sorenson
--- NOTE | 2021-12-12 08:45 | OP.PCM_ITS ---
Report of Operation Date of Procedure: 12/12/21 Pre-Operative Diagnosis: left ureteral calculi, severe pain, nausea Post-Operative Diagnosis: same Surgery/Procedure Performed:: cystoscopy and left stent placement. Description of Surgical Findings:: Patient was taken back to the operating room after induction of general anesthesia, the patient was placed in dorsolithotomy position. The urethra and genitals were prepped and draped in usual sterile fashion. Using a 21 Ukrainian rigid cystourethroscope the entire length of the urethra was normal then went into the bladder. Identified the trigone the left and right ureteral orifice. I then cannulated the Left orifice and advanced a wire up into the kidney. I then backloaded a 5 Ukrainian open ended catheter over the wire and injected contrast to delineate the anatomy. After the retrograde was performed I then used fluoroscopic images and guidance to advanced a wire up into the kidney and over the 0.038 glidewire I advanced a 6 Ukrainian by 26 cm double pigtail stent. I then pulled the 0.038 Glidewire off and the stent coiled in the kidney bladder good position. The bladder was then drained. We confirmed the position of the stent by fluoroscopy. Patient anesthetic was reversed and was taken back to the PACU in good condition. Surgeon: Sumit Sorenson Type of Anesthesia: General Drains: stent left Admit VTE Documentation VTE Present on Admission: No VTE Mechan Device Prophylaxis: SCD's VTE Pharm Prophylaxis ordered?: No
[2021-12-12] MEDS: Lidocaine Jelly 2% 20 ML Syringe (URO-JET) 1 APPLIC (08:55)
[2021-12-12] MEDS: Acetaminophen 500 MG Tablet PO (10:01)
== END 2021-12-12 13:42 | disposition home or self-care (01) ==
LOC: ED 19:04 → MS3 22:07
PROVIDERS: Admitting Provider Urology; Emergency Provider Student in an Organized Health Care Education/Training Program; PCP Family Medicine; Visit Provider Urology
PROC: (CPT 52332; principal; 2021-12-12 08:30)
DX: N20.2 Calculus of kidney with calculus of ureter (principal); N17.9 Acute kidney failure, unspecified; M06.9 Rheumatoid arthritis, unspecified; J44.9 Chronic obstructive pulmonary disease, unspecified; E11.9 Type 2 diabetes mellitus without complications; Z79.84 Long term (current) use of oral hypoglycemic drugs; Z79.82 Long term (current) use of aspirin; I10 Essential (primary) hypertension; Z79.899 Other long term (current) drug therapy; Z79.51 Long term (current) use of inhaled steroids
CPT/HCPCS: 52332; 74018; 74176; 76000; 80048; 81001; 85025; 96361; 96365; 96366; 96375; 96376; 99218; 99284; J7030; A4216; C1769; C2617; G0378; J2405

== ENCOUNTER 2021-12-15 12:33 | Day surgery (SDC) | payer MEDICARE, OTHER, SELFPAY ==
[2021-12-15 13:07] VITALS: BP 135/74; PULSE 68; RESP 18; TEMP 36.6; O2SAT 97; BMI 30.9
[2021-12-15] MEDS: Lactated Ringers 1,000 ML 15 ML IV (13:13)
[2021-12-15] MEDS: Cefazolin 2 GM in 0.9% Normal Saline 100 ML IV (14:31)
--- NOTE | 2021-12-15 15:01 | DCINST_ITS ---
Discharge Instructions Diet Discharge Diet: No restrictions, Light diet - advance as tolerated and Soft diet Activity Discharge Activity: Return to Normal Activity Follow Up Care Please Follow Up With: Sumit Sorenson MD When: 4 weeks Test Results: Test results from this visit will be discussed in further detail at your follow- up appointment, if applicable. Discharge Plan Admission Primary Reason for Your Visit: ureteroscopy and remove stent Attending Provider: Sumit Sorenson Primary Care Provider: Roberto Carlos Fernandes Discharge Orders/Prescriptions Prescriptions: Continued magnesium oxide 400 MG tablet 400 mg PO DAILY Label Comments: supplement multivitamin,hu-xwfd-Bl-FA-min 1 EACH tablet 1 ea PO DAILY Label Comments: vitamin metformin 1,000 MG tablet 1,000 mg PO BIDCM Label Comments: diabetes/ control blood sugar levels pramipexole 0.25 MG tablet 0.25 mg PO QHS Label Comments: restless legs amlodipine 5 MG tablet 5 mg PO DAILY Label Comments: BLOOD PRESSURE fluticasone propionate 1 SPRAY spray,suspension 2 spray NASAL DAILY Label Comments: ALLERGIES mirtazapine 15 MG tablet 15 mg PO QHS PRN (Reason: Sleep) fluticasone furoate-vilanterol 1 EACH blister with device 1 puff INHALATION DAILY Label Comments: INHALE 1 PUFF BY MOUTH ONCE DAILY WITH GOOD ORAL CARE losartan 100 mg tablet 100 mg PO DAILY Label Comments: TAKE 1 TABLET BY MOUTH ONCE DAILY Trulicity 1.5 mg/0.5 mL pen injector 1.5 mg SUBCUT FR albuterol sulfate 90 mcg/actuation HFA aerosol inhaler 2 puff INHALATION Q4H PRN PRN (Reason: sob & or wheezing) Label Comments: INHALE 2 PUFFS BY MOUTH EVERY 4 HOURS NEEDED FOR SHORTNESS OF BREATH AND WHEEZING ergocalciferol (vitamin D2) 1,000 unit Capsule 1,000 unit PO DAILY ondansetron 4 mg tablet,disintegrating 4 mg PO Q8H PRN (Reason: nausea and vomiting) Qty: 10 0RF aspirin 81 mg Tablet,Chewable 162 mg PO DAILY carvedilol 6.25 mg tablet 6.25 tab PO BID Label Comments: TAKE 1 TABLET BY MOUTH TWICE A DAY ciprofloxacin HCl [Cipro] 500 mg tablet 500 mg PO BID Qty: 10 0RF bupropion HCl [Wellbutrin SR] 150 mg Tablet Sustained-Release 12 Hr 150 mg PO DAILY atorvastatin 20 MG tablet 40 mg PO QHS Label Comments: cholesterol Referrals / Follow Up: Roberto Carlos Fernandes MD [Primary Care Provider] - Disposition Disposition (needs filled in before D/C Order can be placed): Home, Self Care
--- NOTE | 2021-12-15 15:01 | OP.PCM_ITS ---
Report of Operation Date of Procedure: 12/15/21 Pre-Operative Diagnosis: Left ureteral calculi status post stent Post-Operative Diagnosis: Same Surgery/Procedure Performed:: Cystoscopy, left ureteroscopy, basket attempted, left stent removal Description of Surgical Findings:: This is a 71-year-old male underwent ureteroscopy and laser of stones last week presented to the emergency room with severe pain from obstructing stone he underwent stent placement and now comes back to the operating room for ureteroscopy and removal of the stent and possible treatment of remaining stone fragments. Is taken back to the operating room at the smooth induction of general anesthesia I went to the bladder with a 21 Georgian rigid cystourethroscope after the penis was testicles were prepped and draped in usual sterile fashion I grabbed the existing stent pulled out the meatus put a wire through the stent next of the stent I went in with a semirigid ureteroscope went up all the way up the ureter and I encountered a small fragment in the upper ureter I attempted to basket the fragment but immediately went back up into the kidney so I pulled out went in with a flexible scope and went up to the kidney with a flexible scope could see the stone was quite small it was so small that it would go between the wire of the baskets and I could not basket the stone so decided to leave the stone as it is it will pass on its own the ureter is nice and dilated work my way down the ureter drained the bladder anesthetic was reversed and we will see him back for checkup in about 4 weeks he has a small stone up in the kidney I could not basket was so small is going between the wires I could basketed so therefore the stone should pass on its own no stent was placed bladder was drained I will see him in a few weeks for checkup. Surgeon: Sumit Sorenson Type of Anesthesia: General Drains: none Admit VTE Documentation VTE Present on Admission: No VTE Mechan Device Prophylaxis: SCD's VTE Pharm Prophylaxis ordered?: No
--- NOTE | 2021-12-15 15:01 | PCM.HP.STD ---
HPI - General HPI Narrative ALEM SHEEHAN, is a 71 M who presents for left ureteroscopy and basket extraction of stone and stent. [facility] Medical History (Updated 12/14/21 @ 10:49 by Digna Plunkett) Abrasion Anxiety Asthma Back pain Cardiology follow-up encounter COPD (chronic obstructive pulmonary disease) CPAP (continuous positive airway pressure) dependence Depression Diabetes Dietary restriction H/O bicuspid aortic valve History of diverticulitis History of echocardiogram History of edema History of hiatal hernia History of stress test History of ulceration Hypertension Kidney stones Non-smoker Pulmonary embolism Restless legs Rheumatoid arthritis Syncope Vision loss of left eye Home Medications magnesium oxide 400 mg (241.3 mg magnesium) tablet 400 mg PO DAILY 11/25/14 [History Last Taken 02/24/16] metformin 1,000 mg tablet 1,000 mg PO BIDCM 11/25/14 [History Last Taken Unknown] multivitamin,ch-uvnh-Jt-FA-min 1 ea PO DAILY 11/25/14 [History Last Taken 02/24/16] pramipexole 0.25 mg tablet 0.25 mg PO QHS 11/25/14 [History Last Taken 02/23/16] amlodipine 5 mg tablet 5 mg PO DAILY 02/24/16 [History Last Taken 12/15/21 07:30] fluticasone propionate 50 mcg/actuation nasal spray,suspension 2 spray DAILY 02/24/16 [History Last Taken 02/24/16] fluticasone furoate 200 mcg-vilanterol 25 mcg/dose inhalation powder 1 puff inhalation DAILY 03/25/20 [History Last Taken Unknown] mirtazapine 15 mg tablet 15 mg PO QHS PRN Sleep 03/25/20 [History Last Taken Unknown] dulaglutide 1.5 mg/0.5 mL subcutaneous pen injector (Trulicity) 1.5 mg subcut FR 12/16/20 [History Last Taken Unknown] losartan 100 mg tablet 100 mg PO DAILY 12/16/20 [History Last Taken 12/15/21 07:30] albuterol sulfate 90 mcg/actuation aerosol inhaler 2 puff inhalation Q4H PRN PRN sob & or wheezing 02/27/21 [History Last Taken 12/15/21 07:30] ergocalciferol (vitamin D2) 1,000 unit capsule 1,000 unit PO DAILY 02/27/21 [History Last Taken Unknown] ondansetron 4 mg disintegrating tablet 4 mg PO Q8H PRN nausea and vomiting #10 tabs 12/04/21 [Rx Last Taken Unknown] aspirin 81 mg chewable tablet 162 mg PO DAILY 12/11/21 [History Last Taken 12/13/21] carvedilol 6.25 mg tablet 6.25 tab PO BID 12/11/21 [History Last Taken 12/15/21 07:30] ciprofloxacin HCl 500 mg tablet (Cipro) 500 mg PO BID #10 tabs 12/12/21 [Rx Last Taken Unknown] atorvastatin 20 mg tablet 40 mg PO QHS 12/14/21 [History Last Taken Unknown] bupropion HCl 150 mg tablet,12 hr sustained-release (Wellbutrin SR) 150 mg PO DAILY 12/14/21 [History Last Taken Unknown] Allergy/AdvReac Type Severity Reaction Status Date / Time erythromycin base AdvReac Diarrhea Verified 12/15/21 13:03 oxycodone [From Percocet] AdvReac Other Verified 12/15/21 13:03 tramadol AdvReac Other Verified 12/15/21 13:03 Surgical History (Updated 12/14/21 @ 10:48 by Digna Plunkett) H/O shoulder replacement History of thoracic aortic aneurysm repair Hx of cystoscopy Status post reverse total shoulder replacement Social History Smoking Status: Never smoker Vital Signs Vital Signs Vital Signs: 12/15/21 13:07 12/15/21 13:07 Temperature 97.8 F Temperature Source Temporal Pulse Rate 68 Respiratory Rate 18 Respiratory Pattern Normal Blood Pressure 135/74 H Blood Pressure Mean 94 Blood Pressure Source Monitor Blood Pressure Position Sitting Blood Pressure Location Left Arm Pulse Ox 97 Oxygen Delivery Method Room Air Weight Weight: 106.594 kg Body Mass Index (BMI) 30.9
[2021-12-15 15:03] VITALS: BP 119/77; BP 135/74; PULSE 67; RESP 16; TEMP 36.8; O2SAT 94
[2021-12-15 15:15] VITALS: BP 122/76; BP 135/74; PULSE 65; RESP 16; O2SAT 94
[2021-12-15] MEDS: Ketorolac 15 MG/ML Vial IV (15:15)
[2021-12-15 15:29] LABS: Bedside Glucose 110 mg/dL (74-106)
[2021-12-15 15:34] VITALS: BP 122/71; BP 135/74; PULSE 62; RESP 16; TEMP 36.4; O2SAT 95
[2021-12-15 16:06] VITALS: BP 135/74
== END 2021-12-15 16:09 | disposition home or self-care (01) ==
LOC: SDC 12:34 → AC 12:36
PROVIDERS: PCP Family Medicine; Referring Provider Family Medicine; Visit Provider Urology
PROC: 0TJ98ZZ Inspection of Ureter, Via Natural or Artificial Opening Endoscopic (ICD-10-PCS; CPT 52352; principal; 2021-12-15 14:30)
DX: N20.1 Calculus of ureter (principal); M06.9 Rheumatoid arthritis, unspecified; J44.9 Chronic obstructive pulmonary disease, unspecified; I71.2 Thoracic aortic aneurysm, without rupture; E11.9 Type 2 diabetes mellitus without complications; Z79.84 Long term (current) use of oral hypoglycemic drugs; I10 Essential (primary) hypertension; Z79.82 Long term (current) use of aspirin; Z79.899 Other long term (current) drug therapy; F32.A Depression, unspecified; Z87.19 Personal history of other diseases of the digestive system; Z87.442 Personal history of urinary calculi; Z86.711 Personal history of pulmonary embolism; G25.81 Restless legs syndrome; F41.9 Anxiety disorder, unspecified; Z87.74 Personal history of (corrected) congenital malformations of heart and circulatory system
CPT/HCPCS: 52352; 00918; 82962; J7120; C1769; J2405

== ENCOUNTER 2022-02-22 07:25 | Outpatient (RCR) | payer MEDICARE, OTHER, SELFPAY ==
[2022-02-22 08:02] VITALS: BP 139/84; PULSE 80; TEMP 35.7; BMI 30.9
--- NOTE | 2022-02-22 11:39 | HP.PCM_ITS ---
History of Present Illness Date of Service: 02/22/22 Chief Complaint: Sacral pressure ulceration History of Wound: This is a 72-year-old obese, diabetic male who presents with a recent pressure ulceration to the right upper buttock/sacrum. The ulceration presumably occurred as result of pressure phenomenon, occurring approximately 3 months ago. It has been improving over time. The patient suffers from spinal stenosis, and his mobility is extremely limited. He states it is hard to walk. He does not ambulate much. Rather, he sits idlly for long hours throughout the day. He suffers from multiple pre-existing medical conditions, which are listed below. [facility] Medical History Abrasion Anxiety Asthma Asthma Back pain Blindness of left eye Cardiology follow-up encounter Continuous positive airway pressure dependent COPD (chronic obstructive pulmonary disease) CPAP (continuous positive airway pressure) dependence Depression Diabetes Dietary restriction First degree AV block H/O bicuspid aortic valve Hiatal hernia History of diverticulitis History of diverticulitis History of echocardiogram History of edema History of hiatal hernia History of kidney stones History of pulmonary embolism History of stress test History of ulceration Hypertension Kidney stones Limited mobility Lumbar disc disease Non-smoker Pressure ulcer of sacral region, stage 1 Pulmonary embolism Restless legs Rheumatoid arthritis Rheumatoid arthritis Stenosis of lumbosacral spine Syncope Vision loss of left eye Home Medications magnesium oxide 400 mg (241.3 mg magnesium) tablet 400 mg PO DAILY 11/25/14 [History Last Taken 02/24/16] metformin 1,000 mg tablet 1,000 mg PO BIDCM 11/25/14 [History Last Taken Unknown] multivitamin,wn-ugar-Cg-FA-min 1 ea PO DAILY 11/25/14 [History Last Taken 02/24/16] pramipexole 0.25 mg tablet 0.25 mg PO QHS 11/25/14 [History Last Taken 02/23/16] amlodipine 5 mg tablet 5 mg PO DAILY 02/24/16 [History Last Taken 12/15/21 07:30] fluticasone propionate 50 mcg/actuation nasal spray,suspension 2 spray DAILY 02/24/16 [History Last Taken 02/24/16] fluticasone furoate 200 mcg-vilanterol 25 mcg/dose inhalation powder 1 puff inhalation DAILY 03/25/20 [History Last Taken Unknown] mirtazapine 15 mg tablet 15 mg PO QHS PRN Sleep 03/25/20 [History Last Taken Unknown] dulaglutide 1.5 mg/0.5 mL subcutaneous pen injector (Trulicity) 1.5 mg subcut FR 12/16/20 [History Last Taken Unknown] losartan 100 mg tablet 100 mg PO DAILY 12/16/20 [History Last Taken 12/15/21 07:30] albuterol sulfate 90 mcg/actuation aerosol inhaler 2 puff inhalation Q4H PRN PRN sob & or wheezing 02/27/21 [History Last Taken 12/15/21 07:30] ergocalciferol (vitamin D2) 1,000 unit capsule 1,000 unit PO DAILY 02/27/21 [History Last Taken Unknown] ondansetron 4 mg disintegrating tablet 4 mg PO Q8H PRN nausea and vomiting #10 tabs 12/04/21 [Rx Last Taken Unknown] aspirin 81 mg chewable tablet 162 mg PO DAILY 12/11/21 [History Last Taken 12/13/21] carvedilol 6.25 mg tablet 6.25 tab PO BID 12/11/21 [History Last Taken 12/15/21 07:30] ciprofloxacin HCl 500 mg tablet (Cipro) 500 mg PO BID #10 tabs 12/12/21 [Rx Last Taken Unknown] atorvastatin 20 mg tablet 40 mg PO QHS 12/14/21 [History Last Taken Unknown] bupropion HCl 150 mg tablet,12 hr sustained-release (Wellbutrin SR) 150 mg PO DAILY 12/14/21 [History Last Taken Unknown] Allergy/AdvReac Type Severity Reaction Status Date / Time erythromycin base AdvReac Diarrhea Verified 12/15/21 13:03 oxycodone [From Percocet] AdvReac Other Verified 12/15/21 13:03 tramadol AdvReac Other Verified 12/15/21 13:03 Surgical History H/O shoulder replacement History of coronary artery bypass graft History of thoracic aortic aneurysm repair Hx of cystoscopy Status post reverse total shoulder replacement Social History Smoking Status: Never smoker Vital Signs Vital Signs Vital Signs: 02/22/22 08:02 Temperature 96.2 F L Temperature Source Temporal Pulse Rate 80 Blood Pressure 139/84 H Blood Pressure Mean 102 Blood Pressure Source Monitor Weight Weight: 235 lb Body Mass Index (BMI) 30.9 Physical Exam Const alert, oriented x3, no apparent distress and well nourished Constitutional Narrative: The patient is obese. General Appearance: cooperative, comfortable, well kempt and well developed Orientation / Consciousness: awake, oriented to person, oriented to place and oriented to time HEENT normocephalic and head/scalp atraumatic Head and Scalp: normal to inspection, normocephalic and atraumatic External Ear: external ears normal Eyes PERRL and EOMs intact bilaterally General Eye: normal appearance of both eyes Resp normal respiratory effort, normal air movement, no retractions and no use of accessory muscles Effort and Inspection: able to speak in complete sentences Extremity no calf tenderness General Extremity: Negative for clubbing or cyanosis Skin Wound Narrative: A healed pressure ulceration is noted on the right upper buttock, in the sacral area. The skin in the area is slightly thickened. There is no sign of infection or cellulitis. Neuro oriented x3, CN's II-XII intact bilaterally and moves all extremities Sensorium / Orientation: awake, alert, oriented to person, oriented to place and oriented to time Psych Appearance: grossly normal and appropriate Attitude: calm Activity / Motor Behavior: appropriate eye contact Speech: normal speech Mood & Affect: euthymic mood Thought Process: normal thought process Thought Content: normal thought content Attention / Concentration: attention grossly intact Debridement Note Debridement Note No debridement was completed: No debridement was completed today (There are no open wounds or ulcerations.) Post-Debridement Measurements and Additional Note: Post-Debridement Measurements/Treatment - Nurse 1 - General Ulcer Assessment Start: 02/22/22 08:01 Freq: Status: Active Protocol: JAYLEN Activity Type Activity Date Activity User E-sign Co-sign Detail Recorded Client Recorded Date Recorded By Document 02/22/22 08:02 SUZIE [id number] 02/22/22 08:10 SUZIE 02/22/22 08:02 - Today's Visit Information Type of service Follow-up Visit (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 ) Arrival Mode Ambulatory Patient Identification Verified (Name & Yes ) Patient Requires Transmission-Based No Precautions Safety Precautions NA Height and Weight Height 6 ft 1 in Weight 235 lb Weight in Pounds 235.0 lbs Weight Measurement Method Estimated by Patient Body Mass Index (BMI) 30.9 BMI Classification Obese BSA - Evelyn 2.30 Vital Signs Temperature (97.8 F-99.1 F) 96.2 F L Temperature Source Temporal Pulse Rate (60-100) 80 Pulse Location Monitor Blood Pressure (90/60-120/80) 139/84 H Blood Pressure Mean 102 Source Monitor History Since Last Visit- (Skip if this is Patient's initial visit) Left Footwear Regular Shoe Right Footwear Regular Shoe Pain Scale: 0-10 Numeric Is Patient Pain Free? Yes WC - Nurse 1 - General Ulcer Measurement Start: 02/22/22 08:01 Freq: Status: Active Protocol: Activity Type Activity Date Activity User E-sign Co-sign Detail Recorded Client Recorded Date Recorded By Document 02/22/22 08:02 SUZEI [id number] 02/22/22 08:10 SUZIE 02/22/22 08:02 Wound Center Nurse 1 #1Right Buttock -Current Size (cm) - Length 0.1 -Current Size (cm) - Width 0.1 -Current Size (cm) - Depth 0.1 -Total Square Cm 0.01 -Exudate Amt None Present -Wound Margin Distinct, Outline Attached -Granulation Amt Small (1-33%) -Granulation Quality [place] -Necrosis Amt None Present (0 %) -Texture (Dee-wound Skin Appearance) Assessed, Scarring -Moisture (Dee-wound Skin Appearance) Assessed,Dry/ Scaly -Color (Dee-wound Skin Appearance) No Abnormality, Assessed -Temperature (Dee-wound Skin No Abnormality Appearance) (Pt Warm) -Tenderness on Palpation (Dee-wound No Skin Appearance) -Ulcer Cleansing Rinsed/ Irrigated with Saline -Foul Odor after Cleansing No -Anesthetic Used 5% Lidocaine Gel WC - Nurse 2 - General Ulcer CM Notes Start: 02/22/22 08:01 Freq: Status: Active Protocol: Activity Type Activity Date Activity User E-sign Co-sign Detail Recorded Client Recorded Date Recorded By Document 02/22/22 08:46 PL [id number] 02/22/22 08:47 PL 02/22/22 08:46 Wound Center Nurse 2 -Time 08:23 -Procedure Performed No -Wound/Ulcer Outcome Healed- Epithelialized Pain Scale: 0-10 Numeric Is Patient Pain Free? Yes Assessment/Plan Assessment/Plan (1) Pressure ulcer of sacral region, stage 1: CODE(S): L89.151 - Pressure ulcer of sacral region, stage 1 (2) Stenosis of lumbosacral spine: CODE(S): M48.07 - Spinal stenosis, lumbosacral region (3) Lumbar disc disease: CODE(S): M51.9 - Unspecified thoracic, thoracolumbar and lumbosacral intervertebral disc disorder (4) Limited mobility: CODE(S): Z74.09 - Other reduced mobility (5) Hypertension: CODE(S): I10 - Essential (primary) hypertension QUALIFIERS: Hypertension type: essential hypertension Qualified Code(s): I10 - Essential (primary) hypertension (6) Obesity: CODE(S): E66.9 - Obesity, unspecified (7) S/P aortic valve repair: CODE(S): Z98.890 - Other specified postprocedural states (8) Sleep apnea: CODE(S): G47.30 - Sleep apnea, unspecified (9) Diabetes mellitus: CODE(S): E11.9 - Type 2 diabetes mellitus without complications QUALIFIERS: Diabetes mellitus complication detail: without coma Diabetes mellitus complication status: with hypoglycemia Diabetes mellitus penitentiary insulin use: without 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 yard use Diabetes mellitus type: type 2 Qu alified Code(s): E11.649 - Type 2 diabetes mellitus with hypoglycemia without coma (10) Continuous positive airway pressure dependent: CODE(S): Z99.89 - Dependence on other enabling machines and devices (11) History of diverticulitis: CODE(S): Z87.19 - Personal history of other diseases of the digestive system (12) Hiatal hernia: CODE(S): K44.9 - Diaphragmatic hernia without obstruction or gangrene (13) History of kidney stones: CODE(S): Z87.442 - Personal history of urinary calculi (14) History of pulmonary embolism: CODE(S): Z86.711 - Personal history of pulmonary embolism (15) Rheumatoid arthritis: CODE(S): M06.9 - Rheumatoid arthritis, unspecified (16) Blindness of left eye: CODE(S): H54.40 - Blindness, one eye, unspecified eye (17) Asthma: CODE(S): J45.909 - Unspecified asthma, uncomplicated (18) First degree AV block: CODE(S): I44.0 - Atrioventricular block, first degree (19) History of coronary artery bypass graft: CODE(S): Z95.1 - Presence of aortocoronary bypass graft PLAN: Plan This is a 72-year-old male with severe spinal stenosis and limited mobility. He spends a great deal of each day sitting, and rarely ambulates. It appears as though he developed a pressure ulceration in the sacral area approximately 3 months ago, due to prolonged sitting and pressure phenomenon. Upon his presentation today, the pressure ulceration appears to be healed, with only mild thickening of the skin in the former ulcerated area. A lengthy discussion has been undertaken with the patient and his , who is at the bedside. Offloading measures have been discussed thoroughly. Patient has been advised to reposition frequently. He has been advised to avoid prolonged idle sitting. He is also been advised to obtain a gel cushion or eggcrate cushion to minimize pressure to the sacral area. Given that there are no open ulcerations at this time, the patient is to be discharged after his initial visit, although he and his understand that they should call and reschedule an appointment in the event that an ulceration recurs. Total time: 50 minutes
== END 2022-03-11 23:59 | disposition home or self-care (01) ==
LOC: WC 07:25
PROVIDERS: PCP Family Medicine; Visit Provider Surgery
DX: L89.151 Pressure ulcer of sacral region, stage 1 (principal); M06.9 Rheumatoid arthritis, unspecified; J44.9 Chronic obstructive pulmonary disease, unspecified; E11.649 Type 2 diabetes mellitus with hypoglycemia without coma; M48.07 Spinal stenosis, lumbosacral region; E66.9 Obesity, unspecified; I10 Essential (primary) hypertension; G47.30 Sleep apnea, unspecified; H54.40 Blindness, one eye, unspecified eye; Z74.09 Other reduced mobility; F32.A Depression, unspecified; F41.9 Anxiety disorder, unspecified; Z79.82 Long term (current) use of aspirin; Z79.84 Long term (current) use of oral hypoglycemic drugs; Z79.899 Other long term (current) drug therapy; Z95.1 Presence of aortocoronary bypass graft
CPT/HCPCS: 99213; G0463

== ENCOUNTER 2022-05-04 13:16 | Emergency (ER) | payer MEDICARE, OTHER, SELFPAY ==
[2022-05-04 13:17] VITALS: BP 170/104; PULSE 79; RESP 16; TEMP 37; O2SAT 96; BMI 30.3
--- NOTE | 2022-05-04 14:04 | CT_ITS ---
HISTORY: Right flank pain, history of kidney stones. TECHNIQUE: Helically acquired images were obtained of the abdomen and pelvis without oral or IV contrast. A radiation dose optimization technique was used for this scan. 546 images. COMPARISON: 12/11/2021. FINDINGS: LOWER CHEST: Calcified granulomas in the right middle lobe. Midline sternotomy with coronary artery disease. BOWEL: Bowel including appendix nondilated. Colonic diverticulosis. No focal pericolonic inflammatory change. PERITONEUM: No significant free fluid. Borderline-enlarged celiac axis and mildly enlarged portacaval lymph nodes noted. LIVER: Unremarkable. GALLBLADDER/BILIARY TREE: Gallbladder present. SPLEEN: Calcified granulomas KIDNEYS AND URETERS: Punctate right renal calculi. Right renal sinus and cortical cysts again seen. Mild right hydronephrosis, hydroureter, and perinephric stranding secondary to a 2 mm mid ureteral calculus Nonobstructing 1 mm and 4 mm left lower pole calculi. PANCREAS/ADRENAL GLANDS: Nonenlarged. VESSELS: No abdominal aortic aneurysm. Mild atherosclerosis of the abdominal aorta and its major branches. PELVIC ORGANS: Unremarkable. ABDOMINAL WALL: Small fat-containing inguinal hernias. BONES: Bilateral L5 spondylolysis with grade [address]/Abdomen/Pelvis without Cont IMPRESSION: Mild right hydronephrosis secondary to a 2 mm mid ureteral calculus. Bilateral nephrolithiasis. Right renal cysts. Mild right upper quadrant lymphadenopathy, nonspecific. Consider follow-up. Colonic diverticulosis without acute diverticulitis. Electronically Signed: Carlita White MD at 15:29 EST ,
--- NOTE | 2022-05-04 14:11 | EX.ED.DYSGE1 ---
HPI History of Present Illness Chief Complaint: Flank Pain Informant: patient and spouse/S.O. Narrative Narrative: 72-year-old male presenting to the emergency room with sudden onset abdominal and flank pain. Patient notes he has a history of ureterolithiasis last 1 was earlier this year which required surgery with Dr. Sorenson. He states he was doing well today about an hour before evaluation sudden onset of right lower quadrant pain rating to the flank. He notes associated nausea and vomiting. No fevers. PFSH PFSH Medical History Abrasion Anxiety Asthma Asthma Back pain Blindness of left eye Cardiology follow-up encounter Continuous positive airway pressure dependent COPD (chronic obstructive pulmonary disease) CPAP (continuous positive airway pressure) dependence Depression Diabetes Dietary restriction First degree AV block H/O bicuspid aortic valve Hiatal hernia History of diverticulitis History of diverticulitis History of echocardiogram History of edema History of hiatal hernia History of kidney stones History of pulmonary embolism History of stress test History of ulceration Hypertension Kidney stones Limited mobility Lumbar disc disease Non-smoker Pressure ulcer of sacral region, stage 1 Pulmonary embolism Restless legs Rheumatoid arthritis Rheumatoid arthritis Stenosis of lumbosacral spine Syncope Vision loss of left eye Home Medications magnesium oxide 400 mg (241.3 mg magnesium) tablet 400 mg PO DAILY 11/25/14 [History Last Taken 02/24/16] metformin 1,000 mg tablet 1,000 mg PO BIDCM 11/25/14 [History Last Taken Unknown] multivitamin,sy-gmcv-Ut-FA-min 1 ea PO DAILY 11/25/14 [History Last Taken 02/24/16] pramipexole 0.25 mg tablet 0.25 mg PO QHS 11/25/14 [History Last Taken 02/23/16] amlodipine 5 mg tablet 5 mg PO DAILY 02/24/16 [History Last Taken 12/15/21 07:30] fluticasone propionate 50 mcg/actuation nasal spray,suspension 2 spray DAILY 02/24/16 [History Last Taken 02/24/16] fluticasone furoate 200 mcg-vilanterol 25 mcg/dose inhalation powder 1 puff inhalation DAILY 03/25/20 [History Last Taken Unknown] mirtazapine 15 mg tablet 15 mg PO QHS PRN Sleep 03/25/20 [History Last Taken Unknown] dulaglutide 1.5 mg/0.5 mL subcutaneous pen injector (Trulicity) 1.5 mg subcut FR 12/16/20 [History Last Taken Unknown] losartan 100 mg tablet 100 mg PO DAILY 12/16/20 [History Last Taken 12/15/21 07:30] albuterol sulfate 90 mcg/actuation aerosol inhaler 2 puff inhalation Q4H PRN PRN sob & or wheezing 02/27/21 [History Last Taken 12/15/21 07:30] ergocalciferol (vitamin D2) 1,000 unit capsule 1,000 unit PO DAILY 02/27/21 [History Last Taken Unknown] ondansetron 4 mg disintegrating tablet 4 mg PO Q8H PRN nausea and vomiting #10 tabs 12/04/21 [Rx Last Taken Unknown] aspirin 81 mg chewable tablet 162 mg PO DAILY 12/11/21 [History Last Taken 12/13/21] carvedilol 6.25 mg tablet 6.25 tab PO BID 12/11/21 [History Last Taken 12/15/21 07:30] ciprofloxacin HCl 500 mg tablet (Cipro) 500 mg PO BID #10 tabs 12/12/21 [Rx Last Taken Unknown] atorvastatin 20 mg tablet 40 mg PO QHS 12/14/21 [History Last Taken Unknown] bupropion HCl 150 mg tablet,12 hr sustained-release (Wellbutrin SR) 150 mg PO DAILY 12/14/21 [History Last Taken Unknown] hydromorphone 2 mg tablet (Dilaudid) 2 mg PO Q8H PRN pain 3 days #9 tabs 05/04/22 [Rx Last Taken Unknown] ketorolac 10 mg tablet 10 mg PO Q8H PRN pain 5 days #15 tabs 05/04/22 [Rx Last Taken Unknown] ondansetron HCl 4 mg tablet 4 mg PO Q6H PRN nausea and vomiting #15 tabs 05/04/22 [Rx Last Taken Unknown] Allergy/AdvReac Type Severity Reaction Status Date / Time erythromycin base AdvReac Diarrhea Verified 05/04/22 13:18 oxycodone [From Percocet] AdvReac Other Verified 05/04/22 13:19 tramadol AdvReac Other Verified 05/04/22 13:19 Surgical History H/O shoulder replacement History of coronary artery bypass graft History of thoracic aortic aneurysm repair Hx of cystoscopy Status post reverse total shoulder replacement Social History Smoking Status: Never smoker ROS ROS ED Constitutional Constitutional ED: Denies chills or weight loss Eyes Eyes: Denies change in vision or diplopia ENT ENT ED: Denies ear pain, rhinorrhea or sore throat Cardiovascular Cardiovascular: Denies chest pain, orthopnea, palpitations or racing heartbeat Respiratory/Chest Respiratory/Chest: Denies cough, dyspnea or orthopnea Gastrointestinal Gastrointestinal: Reports abdominal pain, nausea and vomiting; Denies diarrhea Genitourinary Genitourinary ED: Denies dysuria, hematuria or urinary frequency Musculoskeletal Musculoskeletal: Reports back pain; Denies arthralgias or myalgias Integumentary Denies abscess or rash Neurologic Neurologic: Denies headache(s) or weakness Psychiatric Psychiatric: Denies anxiety, depression, suicidal ideation or suicidal thoughts Endocrine Endocrinology: Denies polydipsia, polyphagia or polyuria Allergic/Immunologic Allergic/Immunologic ED: Denies mouth swelling, tongue swelling or urticaria EXAM Physical Exam Narrative Exam Narrative: Patient is writhing on the bed actively vomiting Const Vital Signs: 05/04/22 13:17 05/04/22 14:00 05/04/22 14:51 Temperature 98.6 F Temperature Source Temporal Pulse Rate 79 Respiratory Rate 16 Respiratory Effort Normal Respiratory Pattern Normal Blood Pressure 170/104 H 158/78 H Blood Pressure Mean 126 104 Pulse Ox 96 Oxygen Delivery Method Room Air Positive well nourished, well developed and obese General Appearance ED: well developed Nutritional Appearance: obese HEENT Reports normocephalic, head/scalp atraumatic and moist mucous membranes Eyes PERRL and EOMs intact bilaterally Neck no lymphadenopathy, supple and no JVD Resp normal respiratory effort and clear to auscultation bilaterally Cardio regular rate, regular rhythm and no murmurs GI normal to inspection, nondistended, normoactive bowel sounds and non-tender Palpation: soft Back/Spine no CVA tenderness and normal ROM Extremity normal to inspection General Extremety ED: Negative for edema General Extremity: Negative for edema Neuro oriented x3 and CN's II-XII intact bilaterally Sensorium / Orientation: alert Motor Exam: strength 5/5 throughout Psych Mood & Affect: tearful; Negative for depressed Skin no rashes or lesions noted and no wounds MDM MDM MDM Narrative Medical decision making narrative: Urinalysis shows some microscopic hematuria. Creatinine is normal. White count is normal at 5. No overt infection. CT abdomen pelvis demonstrates a mid ureteral stone on the right. Patient received Toradol morphine and Zofran as well as IV fluids. Later he received a dose of Dilaudid. He tells me that hydrocodone and oxycodone and morphine have been ineffective in the past for controlling his pain so has tramadol a lot of other medications. He states that the only thing that helps him is Dilaudid. I can write for some Toradol and a few Dilaudid pills but I will not be writing for many. Patient to follow-up with urology return if worsening or concerns Lab Data Attestation: I reviewed the patient's lab results. Labs: Laboratory Results - last 24 hr 05/04/22 05/04/22 05/04/22 13:35 13:35 16:56 WBC 5.0 RBC 5.38 Hgb 15.6 Hct 48.5 MCV 90.1 MCH 29.0 MCHC 32.2 RDW Std Deviation 50.4 H RDW Coeff of Cristal 15.2 H Plt Count 162 MPV 9.8 Immature Gran % (Auto) 1.000 H Neut % (Auto) 62.8 Lymph % (Auto) 17.6 L [place] % (Auto) 12.6 H Eos % (Auto) 5.0 Baso % (Auto) 1.0 Absolute Neuts (auto) 3.2 Absolute Lymphs (auto) 0.88 Nucleated RBC % 0 Sodium 139 Potassium 4.3 Chloride 105 Carbon Dioxide 26.0 Anion Gap 8 BUN 19 H Creatinine 1.29 Estim Creat Clear Calc 58.50 Est GFR (MDRD) Af Amer 70 Est GFR (MDRD) Non-Af 58 L BUN/Creatinine Ratio 14.7 Glucose 123 H Calcium 9.9 Urine Color Yellow Urine Clarity Sl. Cloudy Urine pH 6.0 Ur Specific [place] 1.020 Urine Protein 15 H Urine Glucose (UA) Normal Urine Ketones 15 H Urine Occult Blood 250 H Urine Nitrite Negative Urine Bilirubin Negative Urine Urobilinogen Normal Ur Leukocyte Esterase Negative Urine RBC 50-100 SEEN Urine WBC 0 SEEN Ur Squamous Epith Cells 0 SEEN Urine Bacteria 0 SEEN Urine Mucus 0 SEEN Radiography Diagnostic Testing: Clinical Impression(s) from Imaging Studies Abdomen/Pelvis CT 05/04/22 14:04 IMPRESSION: Mild right hydronephrosis secondary to a 2 mm mid ureteral calculus. Bilateral nephrolithiasis. Right renal cysts. Mild right upper quadrant lymphadenopathy, nonspecific. Consider follow-up. Colonic diverticulosis without acute diverticulitis. Electronically Signed: Carlita White MD at 15:29 EST , Discharge Plan Triage Chief Complaint: Flank Pain ED Provider: Martín Colón Dx/Rx/DC Orders Clinical Impression: Renal colic on right side, Ureterolithiasis, Vomiting Instructions: ED Kidney Stone w/ Colic Prescriptions: New ketorolac 10 mg tablet 10 mg PO Q8H PRN (Reason: pain) 5 Days Qty: 15 0RF ondansetron HCl 4 mg tablet 4 mg PO Q6H PRN (Reason: nausea and vomiting) Qty: 15 0RF hydromorphone [Dilaudid] 2 mg tablet 2 mg PO Q8H PRN (Reason: pain) 3 Days Qty: 9 0RF No Action magnesium oxide 400 MG tablet 400 mg PO DAILY Label Comments: supplement multivitamin,qm-axat-Da-FA-min 1 EACH tablet 1 ea PO DAILY Label Comments: vitamin metformin 1,000 MG tablet 1,000 mg PO BIDCM Label Comments: diabetes/ control blood sugar levels pramipexole 0.25 MG tablet 0.25 mg PO QHS Label Comments: restless legs amlodipine 5 MG tablet 5 mg PO DAILY Label Comments: BLOOD PRESSURE fluticasone propionate 1 SPRAY spray,suspension 2 spray NASAL DAILY Label Comments: ALLERGIES mirtazapine 15 MG tablet 15 mg PO QHS PRN (Reason: Sleep) fluticasone furoate-vilanterol 1 EACH blister with device 1 puff INHALATION DAILY Label Comments: INHALE 1 PUFF BY MOUTH ONCE DAILY WITH GOOD ORAL CARE losartan 100 mg tablet 100 mg PO DAILY Label Comments: TAKE 1 TABLET BY MOUTH ONCE DAILY Trulicity 1.5 mg/0.5 mL pen injector 1.5 mg SUBCUT FR albuterol sulfate 90 mcg/actuation HFA aerosol inhaler 2 puff INHALATION Q4H PRN PRN (Reason: sob & or wheezing) Label Comments: INHALE 2 PUFFS BY MOUTH EVERY 4 HOURS NEEDED FOR SHORTNESS OF BREATH AND WHEEZING ergocalciferol (vitamin D2) 1,000 unit Capsule 1,000 unit PO DAILY ondansetron 4 mg tablet,disintegrating 4 mg PO Q8H PRN (Reason: nausea and vomiting) Qty: 10 0RF aspirin 81 mg Tablet,Chewable 162 mg PO DAILY carvedilol 6.25 mg tablet 6.25 tab PO BID Label Comments: TAKE 1 TABLET BY MOUTH TWICE A DAY ciprofloxacin HCl [Cipro] 500 mg tablet 500 mg PO BID Qty: 10 0RF bupropion HCl [Wellbutrin SR] 150 mg Tablet Sustained-Release 12 Hr 150 mg PO DAILY atorvastatin 20 MG tablet 40 mg PO QHS Label Comments: cholesterol Primary Care Provider: Roberto Carlos Fernandes Referrals: Sumit Sorenson MD [Med Staff - Active Staff] - 3-5 Days if not improving Roberto Carlos Fernandes MD [Primary Care Provider] - Disposition Disposition: Home, Self Care
[2022-05-04 14:15] LABS: Absolute Lymphocyte Count 0.88 X10^3/uL (0.83-4.51); Absolute Neutrophil Count 3.2 X10^3/uL (2.0-7.7); Basophil# 0.05 X10^3/uL; Eosinophil# 0.25 X10^3/uL; Hematocrit 48.5 % (40-54); Hemoglobin 15.6 g/dL (13.0-16.5); Lymphocyte # 0.88 X10^3/ul (0.83-4.51); Lymphocyte % 17.6 % (19-41); Mean Corp Hgb Conc 32.2 g/dL (32-36); Mean Corpuscular Volume 90.1 fL (80-94); Mean Platelet Vol. 9.8 fl (6.2-12.0); Monocyte# 0.63 X10^3/uL; Monocyte% 12.6 % (0-10); NRBC Flagged by Analyzer 0 % (0-5); Neutrophil # 3.15 X10^3/uL (2.7-7.7); Neutrophil % 62.8 % (47-70); Platelet Count 162 K/mm3 (150-450); RBC Distribution Width CV 15.2 % (11.6-14.6); RBC Distribution Width SD 50.4 fl (35.1-43.9); Red Blood Count 5.38 M/mm3 (4.6-6.2)
[2022-05-04] MEDS: 0.9% Normal Saline 1,000 ML 250 ML IV (14:20)
[2022-05-04] MEDS: Morphine 4 MG/ML Syringe IV (14:20)
[2022-05-04] MEDS: Ketorolac 15 MG/ML Vial IV (14:21)
[2022-05-04] MEDS: Ondansetron 4 MG/2 ML Vial IV (14:21)
[2022-05-04 14:30] LABS: Anion Gap 8 (5-15); BUN 19 mg/dL (7-18); BUN/Creat Ratio 14.7 RATIO (10-20); Calcium,Total 9.9 mg/dL (8.5-10.1); Chloride 105 mmol/L (98-107); Creatinine, Serum 1.29 mg/dL (0.70-1.30); EST Glomerular Filtration Rate 58 mL/min (>60); Est Glom Filt Rate - Afr Amer 70 mL/min (>60); Glucose 123 mg/dL (74-106); Potassium 4.3 mmol/L (3.5-5.1); Sodium Level 139 mmol/L (136-145)
[2022-05-04] MEDS: HYDROmorphone 1 MG/ML Syringe IV (14:50)
[2022-05-04 14:51] VITALS: BP 158/78
[2022-05-04 17:01] LABS: Bacteria 0 SEEN /hpf (None Seen); Mucous, Urine 0 SEEN /hpf (<or=2+); Squamous Epithelial Cells - UA 0 SEEN /hpf (0-5); White Blood Cells 0 SEEN /hpf (0-5)
[2022-05-04 17:06] LABS: Color, Urine Yellow (Yellow); Glucose, Dipstick Normal (Normal); Ketone-Dipstick 15 mg/dl (Negative); Leukocyte Esterase-Dipstick Negative /ul (Negative); Nitrite-Dipstick Negative (Negative); Occult Blood-Urine 250 /ul (Negative); Protein-Dipstick 15 mg/dl (Negative); Urine Bilirubin Dipstick Negative (Negative); Urine Clarity Sl. Cloudy (Clear); Urine Urobilinogen Normal (Normal)
[2022-05-04 17:15] LABS: Red Blood Cells-Urine 50-100 SEEN /hpf (0-5)
[2022-05-04 17:41] VITALS: BP 141/67; PULSE 71; RESP 15; O2SAT 98
== END 2022-05-04 17:42 | disposition home or self-care (01) ==
PROVIDERS: Emergency Provider Emergency Medicine; PCP Family Medicine; Visit Provider Emergency Medicine
DX: N20.2 Calculus of kidney with calculus of ureter (principal); J44.9 Chronic obstructive pulmonary disease, unspecified; E11.9 Type 2 diabetes mellitus without complications; R31.29 Other microscopic hematuria; R11.10 Vomiting, unspecified; I10 Essential (primary) hypertension; E66.9 Obesity, unspecified
CPT/HCPCS: 74176; 80048; 81001; 85025; 96374; 96375; 99283; J7030; A4216; J2405

== ENCOUNTER → 2023-03-07 | Outpatient (CLI) | payer MEDICARE, OTHER, SELFPAY ==
--- NOTE | 2023-03-07 13:50 | RAD_ITS ---
EXAM: XR CHEST, 2 VIEWS CLINICAL INDICATION: COUGH TECHNIQUE: Frontal and lateral views of the chest. COMPARISON: 12/01/2021 FINDINGS: LUNGS AND PLEURAL SPACES: Unremarkable. No consolidation or edema. No pneumothorax. No effusion. HEART: Unremarkable. Cardiac silhouette not enlarged. MEDIASTINUM: Central airways and mediastinal contour are unremarkable. BONES/JOINTS: There is a right shoulder prosthesis. SOFT TISSUES: Unremarkable. RAD/Chest PA and Lateral IMPRESSION: No acute findings in the chest. Electronically Signed: Denny Leach MD at 16:55 EDT ,
== END | disposition home or self-care (01) ==
LOC: RAD 13:46
PROVIDERS: PCP Family Medicine; Referring Provider Internal Medicine Pulmonary Disease; Visit Provider Internal Medicine Pulmonary Disease
DX: R05.9 Cough, unspecified (principal)
CPT/HCPCS: 71046

== ENCOUNTER 2023-08-07 13:11 | Observation (INO) | payer MEDICARE, OTHER, SELFPAY ==
[2023-08-07 13:12] VITALS: BP 155/89; PULSE 83; RESP 16; TEMP 36; O2SAT 97; BMI 32.4
--- NOTE | 2023-08-07 14:05 | EKG12_ITS ---
Test Reason : Blood Pressure : / mmHG Vent. Rate : 070 BPM Atrial Rate : 070 BPM P-R Int : 222 ms QRS Dur : 166 ms QT Int : 462 ms P-R-T Axes : 032 019 142 degrees QTc Int : 498 ms Sinus rhythm with 1st degree A-V block Left bundle branch block Abnormal ECG Confirmed by MARIANELA ALFARO, PORTER ([id number]), editor sound YAEL GARCIA ([id number]) on 08/14/2023 9:52:06 AM Referred By: Confirmed By:CRISTOPHER BEAR MD
--- NOTE | 2023-08-07 14:20 | RAD_ITS ---
STUDY: X-RAY CHEST REASON FOR EXAM: Male, 73 years old. Stroke. TECHNIQUE: Single frontal view of the chest. COMPARISON: 03/07/2023 FINDINGS: Stable mild hyperinflation. There is no demonstrated pleural abnormality. Cardiomegaly with sternotomy wires unchanged. Normal mediastinum and eddy. Stable prominent central pulmonary arteries. Aortic tortuosity with calcification, unchanged. Normal visualized thoracic spine. Normal visualized ribs, clavicles, and shoulders. No abnormality of the visualized soft tissue structures of the upper abdomen. RAD/Chest 1 View (Portable) IMPRESSION: Stable chest with no acute or active cardiopulmonary disease. Electronically Signed: Elmer Knott MD at 14:26 EST ,
[2023-08-07 14:40] LABS: Absolute Lymphocyte Count 1.43 X10^3/uL (0.83-4.51); Absolute Neutrophil Count 5.3 X10^3/uL (2.0-7.7); Basophil# 0.07 X10^3/uL; Basophil% 0.9 % (0-1); Eosinophil# 0.45 X10^3/uL; Eosinophils% 5.7 % (0-5); Hematocrit 49.3 % (40-54); Hemoglobin 15.9 g/dL (13.0-16.5); Lymphocyte # 1.43 X10^3/ul (0.83-4.51); Lymphocyte % 18.1 % (19-41); Mean Corp Hgb Conc 32.3 g/dL (32-36); Mean Corpuscular Hgb 28.5 pg (27.0-32.0); Mean Corpuscular Volume 88.4 fL (80-94); Mean Platelet Vol. 9.7 fl (6.2-12.0); Monocyte# 0.63 X10^3/uL; NRBC Flagged by Analyzer 0 % (0-5); Neutrophil # 5.28 X10^3/uL (2.7-7.7); Neutrophil % 66.8 % (47-70); Platelet Count 230 K/mm3 (150-450); RBC Distribution Width CV 15.4 % (11.6-14.6); RBC Distribution Width SD 49.2 fl (35.1-43.9); Red Blood Count 5.58 M/mm3 (4.6-6.2); White Blood Count 7.9 K/mm3 (4.4-11.0)
[2023-08-07 14:53] LABS: Anion Gap 7 (5-15); BUN 21 mg/dL (7-18); Calcium,Total 9.7 mg/dL (8.5-10.1); Chloride 111 mmol/L (98-107); Creatinine, Serum 1.05 mg/dL (0.70-1.30); EST Glomerular Filtration Rate 74 mL/min (>60); Est Glom Filt Rate - Afr Amer 89 mL/min (>60); Estimated Creatinine Clearance 82.61 ml/min; Glucose 135 mg/dL (74-106); Potassium 4.1 mmol/L (3.5-5.1); Sodium Level 139 mmol/L (136-145)
[2023-08-07 14:54] LABS: Prothrombin Time (Protime)PT. 12.9 SECONDS (11.7-14.9)
[2023-08-07 14:55] LABS: Partial Thromboplast Time 26.1 Seconds (24.1-36.2)
--- NOTE | 2023-08-07 15:05 | EX.ED.DYSGE1 ---
HPI <JIM Arceo - Last Filed: 08/07/23 17:21> History of Present Illness Chief Complaint: Weakness Narrative Narrative: 73-year-old male with PMH of HTN, HLD, DM2, CABG, aortic valve repair, ascending aorta aneurysm repair, asthma, SIVAKUMAR, PE presents with dizziness. He was sleeping in his recliner and when he got up he felt off balance and stumbled to the couch. He sat down on the couch and did not have any injuries. His drove him in for evaluation and he was able to ambulate into the hospital without assistance. He states when he was sitting in the wheelchair and closed his eyes he feels a spinning sensation and nausea. He has had vertigo in the past but states he is not sure if it feels the same as his symptoms then were much worse. He states he has not felt well since having COVID in May 2023. He has had persistent head pressure, ear ringing, and fatigue. He is using his CPAP for SIVAKUMAR. Today's disequilibrium symptoms however are new. Regarding his remote PE it was provoked by his shoulder surgery and he is no longer on anticoagulation. He has had no recent chest pain or shortness of breath. [facility] <JIM Arceo - Last Filed: 08/07/23 17:21> [facility] Medical History Abrasion Anxiety Asthma Asthma Back pain Blindness of left eye Cardiology follow-up encounter Continuous positive airway pressure dependent COPD (chronic obstructive pulmonary disease) CPAP (continuous positive airway pressure) dependence Depression Diabetes Dietary restriction First degree AV block H/O bicuspid aortic valve Hiatal hernia History of diverticulitis History of diverticulitis History of echocardiogram History of edema History of hiatal hernia History of kidney stones History of pulmonary embolism History of stress test History of ulceration Hypertension Kidney stones Limited mobility Lumbar disc disease Non-smoker Pressure ulcer of sacral region, stage 1 Pulmonary embolism Restless legs Rheumatoid arthritis Rheumatoid arthritis Stenosis of lumbosacral spine Syncope Vision loss of left eye Home Medications magnesium oxide 400 mg (241.3 mg magnesium) tablet 400 mg PO DAILY 11/25/14 [History Last Taken 02/24/16] metformin 1,000 mg tablet 1,000 mg PO BIDCM 11/25/14 [History Last Taken Unknown] multivitamin,[id number]-min 1 ea PO DAILY 11/25/14 [History Last Taken 02/24/16] pramipexole 0.25 mg tablet 0.25 mg PO QHS 11/25/14 [History Last Taken 02/23/16] amlodipine 5 mg tablet 5 mg PO DAILY 02/24/16 [History Last Taken 12/15/21 07:30] fluticasone propionate 50 mcg/actuation nasal spray,suspension 2 spray DAILY 02/24/16 [History Last Taken 02/24/16] fluticasone furoate 200 mcg-vilanterol 25 mcg/dose inhalation powder 1 puff inhalation DAILY 03/25/20 [History Last Taken Unknown] dulaglutide 1.5 mg/0.5 mL subcutaneous pen injector (Trulicity) 1.5 mg subcut FR 12/16/20 [History Last Taken Unknown] losartan 100 mg tablet 100 mg PO DAILY 12/16/20 [History Last Taken 12/15/21 07:30] albuterol sulfate 90 mcg/actuation aerosol inhaler 2 puff inhalation Q4H PRN PRN sob & or wheezing 02/27/21 [History Last Taken 12/15/21 07:30] ergocalciferol (vitamin D2) 1,000 unit capsule 1,000 unit PO DAILY 02/27/21 [History Last Taken Unknown] aspirin 81 mg chewable tablet 162 mg PO DAILY 12/11/21 [History Last Taken 12/13/21] carvedilol 6.25 mg tablet 6.25 tab PO BID 12/11/21 [History Last Taken 12/15/21 07:30] ondansetron HCl 4 mg tablet 4 mg PO Q6H PRN nausea and vomiting #15 tabs 05/04/22 [Rx Last Taken Unknown] amlodipine 10 mg tablet 10 mg PO DAILY 08/07/23 [History Last Taken Unknown] atorvastatin 40 mg tablet 40 mg PO QHS 08/07/23 [History Last Taken Unknown] bupropion HCl 150 mg 24 hr tablet, extended release 150 mg PO DAILY 08/07/23 [History Last Taken Unknown] Allergy/AdvReac Type Severity Reaction Status Date / Time erythromycin base AdvReac Diarrhea Verified 08/07/23 13:14 oxycodone [From Percocet] AdvReac Other Verified 08/07/23 13:14 tramadol AdvReac Other Verified 08/07/23 13:14 Surgical History H/O shoulder replacement History of coronary artery bypass graft History of thoracic aortic aneurysm repair Hx of cystoscopy Status post reverse total shoulder replacement Social History Smoking Status: Never smoker ROS <JIM Arceo - Last Filed: 08/07/23 17:21> ROS ED ROS Narrative Constitutional: Negative for fever, chills. Eyes: Negative for visual change. CVS: Negative for palpitations, chest pain, syncope. Respiratory: Negative for shortness of breath. GI: Negative for abdominal pain, vomiting, melena, hematochezia. Neuro: Negative for headache. EXAM <JIM Arceo - Last Filed: 08/07/23 17:21> Physical Exam Narrative Exam Narrative: CONST: Patient sitting in no acute distress. EYES: Prosthetic left eye. Right eye PERRL, EOMI. ENT: Normal inspection, moist mucous membranes. NECK: Normal inspection. RESP: No respiratory distress, CTAB. CVS: Regular rate and rhythm, no murmur, no gallop. ABD: Soft and nontender, no guarding or rebound, nondistended. SKIN: Color normal, no rash, warm, dry, intact. EXTREMITIES: Normal appearance, no pedal edema. NEURO: Oriented x4. Face symmetric, CN II through XII intact, 5/5 upper and lower extremity strength, normal sensation, no drift, normal finger-nose and [id number]-[id number], no dysarthria or aphasia. NIH is 0. PSYCH: Normal affect. Const Vital Signs: 08/07/23 13:12 08/07/23 15:06 08/07/23 15:06 Temperature 96.8 F L Temperature Source Temporal Pulse Rate 83 71 Respiratory Rate 16 16 Respiratory Effort Respiratory Pattern Blood Pressure 155/89 H 149/82 H Blood Pressure Mean 111 104 Pulse Ox 97 95 95 Oxygen Delivery Method Room Air Room Air Room Air 08/07/23 15:06 08/07/23 17:00 08/07/23 17:36 Temperature 98.3 F Temperature Source Pulse Rate 66 72 Respiratory Rate 16 16 Respiratory Effort Normal Respiratory Pattern Normal Blood Pressure 146/86 H 112/57 L Blood Pressure Mean 106 75 Pulse Ox 94 95 Oxygen Delivery Method Room Air <Marvin Manzanares MD - Last Filed: 08/07/23 20:49> Physical Exam Const Vital Signs: 08/07/23 13:12 08/07/23 15:06 08/07/23 15:06 Temperature 96.8 F L Temperature Source Temporal Pulse Rate 83 71 Respiratory Rate 16 16 Respiratory Effort Respiratory Pattern Blood Pressure 155/89 H 149/82 H Blood Pressure Mean 111 104 Pulse Ox 97 95 95 Oxygen Delivery Method Room Air Room Air Room Air 08/07/23 15:06 08/07/23 17:00 08/07/23 17:36 Temperature 98.3 F Temperature Source Pulse Rate 66 72 Respiratory Rate 16 16 Respiratory Effort Normal Respiratory Pattern Normal Blood Pressure 146/86 H 112/57 L Blood Pressure Mean 106 75 Pulse Ox 94 95 Oxygen Delivery Method Room Air MDM <JIM Arceo - Last Filed: 08/07/23 17:21> [facility] Narrative Medical decision making narrative: History gathered from: Patient, spouse Differential: Peripheral vertigo, central vertigo, cardiac arrhythmia Patient had disequilibrium with walking this morning. Now when closing his eyes he feels a spinning sensation with nausea. He does have a history of remote vertigo. He appears well and nontoxic. Vital signs stable. He is neurologically intact. NIH 0. TMs normal bilaterally. CBC and BMP are unremarkable. EKG is sinus rhythm with no acute ischemic changes. He has no chest pain or shortness of breath. CXR shows no acute findings. Patient was treated with meclizine and CTA head/neck ordered which shows no acute process. Patient can ambulate but had to hold onto his in the hallway and onto the railing next to his bed. Normally he can walk unassisted. He still feels unsteady which is a change from his baseline. I feel he needs admitted for MRI will discuss the case with the hospitalist. Lab Data Attestation: I reviewed the patient's lab results. Labs: Laboratory Results - last 24 hr 08/07/23 08/07/23 14:30 16:08 WBC 7.9 RBC 5.58 Hgb 15.9 Hct 49.3 MCV 88.4 MCH 28.5 MCHC 32.3 RDW Std Deviation 49.2 H RDW Coeff of Cristal 15.4 H Plt Count 230 MPV 9.7 Immature Gran % (Auto) 0.500 Neut % (Auto) 66.8 Lymph % (Auto) 18.1 L Nobles % (Auto) 8.0 Eos % (Auto) 5.7 H Baso % (Auto) 0.9 Absolute Neuts (auto) 5.3 Absolute Lymphs (auto) 1.43 Nucleated RBC % 0 PT 12.9 INR 1.0 APTT 26.1 Sodium 139 Potassium 4.1 Chloride 111 H Carbon Dioxide 21.0 Anion Gap 7 BUN 21 H Creatinine 1.05 Estim Creat Clear Calc 82.61 Est GFR (MDRD) Af Amer 89 Est GFR (MDRD) Non-Af 74 BUN/Creatinine Ratio 20.0 Glucose 135 H Calcium 9.7 POC Glucose 103 Radiography Diagnostic Testing: Clinical Impression(s) from Imaging Studies Chest X-Ray 08/07/23 14:20 IMPRESSION: Stable chest with no acute or active cardiopulmonary disease. Electronically Signed: Elmer Knott MD at 14:26 EST , Head/Neck CTA 08/07/23 15:07 IMPRESSION: No evidence of arterial stenosis, occlusion, dissection or intracranial aneurysm. Electronically Signed: Lam Andrea MD at 16:15 EST , ED attending interpretation of 1-view chest x-ray shows normal heart size, no acute infiltrate, edema, or effusion. <Marvin Manzanares MD - Last Filed: 08/07/23 20:49> [facility] MDM Narrative Medical decision making narrative: History gathered from: Patient, spouse Differential: Peripheral vertigo, central vertigo, cardiac arrhythmia Patient had disequilibrium with walking this morning. Now when closing his eyes he feels a spinning sensation with nausea. He does have a history of remote vertigo. He appears well and nontoxic. Vital signs stable. He is neurologically intact. NIH 0. TMs normal bilaterally. CBC and BMP are unremarkable. EKG is sinus rhythm with no acute ischemic changes. He has no chest pain or shortness of breath. CXR shows no acute findings. Patient was treated with meclizine and CTA head/neck ordered which shows no acute process. Patient can ambulate but had to hold onto his in the hallway and onto the railing next to his bed. Normally he can walk unassisted. He still feels unsteady which is a change from his baseline. I feel he needs admitted for MRI will discuss the case with the hospitalist. Dr. Manzanares: I have personally performed a face to face assessment of the patient and have reviewed the TRAVIS Note. I performed a substantive portion of the visit including all aspects of the following. My peters findings include: History is generalized weakness, unstable gait, disequilibrium Exam is afebrile. Vital signs noted. Regular rate and rhythm. Lungs clear to auscultation bilaterally. Abdomen soft nontender with normoactive bowel sounds. Neurological examination nonfocal, nonlateralizing. Medical Decision Making: Patient has had longstanding disequilibrium, but worse today, causing him to fall. Check CTA of head and neck, check labs. Unable to ambulate independently without holding onto . Discussed with hospitalist for observation. Other additions or changes: [None] History & Record Review Discussion w/independent historian: Patient Additional record(s) reviewed:: Prior ED visit Lab Data Labs: Laboratory Results - last 24 hr 08/07/23 08/07/23 14:30 16:08 WBC 7.9 RBC 5.58 Hgb 15.9 Hct 49.3 MCV 88.4 MCH 28.5 MCHC 32.3 RDW Std Deviation 49.2 H RDW Coeff of Cristal 15.4 H Plt Count 230 MPV 9.7 Immature Gran % (Auto) 0.500 Neut % (Auto) 66.8 Lymph % (Auto) 18.1 L Nobles % (Auto) 8.0 Eos % (Auto) 5.7 H Baso % (Auto) 0.9 Absolute Neuts (auto) 5.3 Absolute Lymphs (auto) 1.43 Nucleated RBC % 0 PT 12.9 INR 1.0 APTT 26.1 Sodium 139 Potassium 4.1 Chloride 111 H Carbon Dioxide 21.0 Anion Gap 7 BUN 21 H Creatinine 1.05 Estim Creat Clear Calc 82.61 Est GFR (MDRD) Af Amer 89 Est GFR (MDRD) Non-Af 74 BUN/Creatinine Ratio 20.0 Glucose 135 H Calcium 9.7 POC Glucose 103 Radiography Chest X-Ray - ED: 1 View, Read by ED Physician and Unchanged Diagnostic Testing: Clinical Impression(s) from Imaging Studies Chest X-Ray 08/07/23 14:20 IMPRESSION: Stable chest with no acute or active cardiopulmonary disease. Electronically Signed: Elmer Knott MD at 14:26 EST , Head/Neck CTA 08/07/23 15:07 IMPRESSION: No evidence of arterial stenosis, occlusion, dissection or intracranial aneurysm. Electronically Signed: Lam Andrea MD at 16:15 EST , Discharge Plan Dx/Rx/DC Orders Clinical Impression: Dysequilibrium, Vertigo Disposition Disposition: Acute Care [facility] Discharge Date/Time: 08/07/23 19:10
[2023-08-07 15:06] VITALS: BP 149/82; PULSE 71; RESP 16; O2SAT 95
--- NOTE | 2023-08-07 15:07 | CT_ITS ---
INDICATION: vertigo EXAMINATION: CTA HEAD - CTA Head and Neck W/ Contrast Injection (and W/O Contrast Images if performed) TECHNIQUE: [place] [facility] [place]/head CT angiogram protocol was performed following IV contrast. Routine carotid CT angiogram protocol was performed without and with IV contrast. NASCET criteria using the distal ICAs for comparison were used for evaluation of stenoses. 3D reconstructions were reviewed of the CT angiogram head and neck. A radiation dose optimization technique was used for this scan. IV Contrast dosage and agent: 100 cc [id number] COMPARISON: FINDINGS: --Anterior cerebral circulation: ACAs: No significant stenosis at the visualized segments. ACOM: Present. MCAs: No significant stenosis at the visualized segments. --Posterior cerebral circulation: PCOMs: Left P-comm is present and gives rise to the left posterior cerebral artery. civil estimator: No significant stenosis at the visualized segments. BASILAR ARTERY: No significant stenosis. --Carotid and vertebral circulation: AORTIC ARCH AND BRANCHES: Normal anatomy, patent. Small left vertebral artery arises from the aortic arch. RIGHT CCA: No occlusion, significant stenosis or dissection. RIGHT ICA: Mild calcific plaquing at the right carotid bulb. No occlusion, significant stenosis or dissection. LEFT CCA: No occlusion, significant stenosis or dissection. LEFT ICA: Mild calcific plaquing at the left carotid bulb. No occlusion, significant stenosis or dissection. RIGHT VERTEBRAL ARTERY: Dominant artery extending to the basilar artery. No occlusion, significant stenosis or dissection. LEFT VERTEBRAL ARTERY: No occlusion, significant stenosis or dissection. NECK SOFT TISSUES: Unremarkable. Left phthisis bulbi noted. LUNG APICES: Clear. BONES: Unremarkable. CT/CTA Head AND Neck W/ Contrast IMPRESSION: No evidence of arterial stenosis, occlusion, dissection or intracranial aneurysm. Electronically Signed: Lam Andrea MD at 16:15 EST ,
--- NOTE | 2023-08-07 15:11 | ED.RN ---
pt alert and oriented but drowsy. states that he is extremely fatigued and weak at home. unable to ambulate much d/t pinched nerves in the back. had covid in May and feels like he has not completely recovered. states that when he closes his eyes, everything is spinning and I feel really dizzy
[2023-08-07] MEDS: Meclizine HCl 25 MG Tablet PO (15:18)
[2023-08-07 16:25] LABS: Bedside Glucose 103 mg/dL (74-106)
[2023-08-07] MEDS: Acetaminophen 500 MG Tablet 1000 MG PO (16:52)
[2023-08-07 17:00] VITALS: BP 146/86; PULSE 66; RESP 16; O2SAT 94
[2023-08-07 17:36] VITALS: BP 112/57; PULSE 72; RESP 16; TEMP 36.8; O2SAT 95
--- NOTE | 2023-08-07 17:51 | PCM.HP.STD ---
HPI - General General Date of Admission: 08/07/23 Date of Service: 08/07/23 Chief Complaint: Dizziness, unsteady walking HPI Narrative ALEM SHEEHAN, is a 73 M who presents to the emergency room at [facility] for evaluation of dizziness and difficulty in walking due to unsteadiness since this morning. Patient has no focal weakness, he denies any visual or speech problems. Patient states he had an episode of vertigo many years ago, he states that his symptoms do not exactly match with the symptoms he had previously. Workup in the emergency room revealed a normal CBC, patient's chemistry profile was remarkable for BUN of 21, head and neck CTA showed no evidence of arterial stenosis, occlusion, dissection, or intracranial aneurysm. Chest x-ray was unremarkable. Patient was given Antivert in the emergency room but he still complained of dizziness, patient will be placed into observation status on PCU and undergo an MRI to rule out a small stroke-patient had MRI in the past which showed evidence of lacunar infarcts, I discussed this with him and his . Patient currently takes two 81 mg aspirin a day on direction of his vascular surgeon, has had a past history of aortic aneurysm repair with a graft, patient also has a bicuspid aortic valve. [facility] Medical History Abrasion Anxiety Asthma Asthma Back pain Blindness of left eye Cardiology follow-up encounter Continuous positive airway pressure dependent COPD (chronic obstructive pulmonary disease) CPAP (continuous positive airway pressure) dependence Depression Diabetes Dietary restriction First degree AV block H/O bicuspid aortic valve Hiatal hernia History of diverticulitis History of diverticulitis History of echocardiogram History of edema History of hiatal hernia History of kidney stones History of pulmonary embolism History of stress test History of ulceration Hypertension Kidney stones Limited mobility Lumbar disc disease Non-smoker Pressure ulcer of sacral region, stage 1 Pulmonary embolism Restless legs Rheumatoid arthritis Rheumatoid arthritis Stenosis of lumbosacral spine Syncope Vision loss of left eye Home Medications magnesium oxide 400 mg (241.3 mg magnesium) tablet 400 mg PO DAILY 11/25/14 [History Last Taken 02/24/16] metformin 1,000 mg tablet 1,000 mg PO BIDCM 11/25/14 [History Last Taken Unknown] multivitamin,pd-hnbd-Xc-FA-min 1 ea PO DAILY 11/25/14 [History Last Taken 02/24/16] pramipexole 0.25 mg tablet 0.25 mg PO QHS 11/25/14 [History Last Taken 02/23/16] amlodipine 5 mg tablet 5 mg PO DAILY 02/24/16 [History Last Taken 12/15/21 07:30] fluticasone propionate 50 mcg/actuation nasal spray,suspension 2 spray DAILY 02/24/16 [History Last Taken 02/24/16] fluticasone furoate 200 mcg-vilanterol 25 mcg/dose inhalation powder 1 puff inhalation DAILY 03/25/20 [History Last Taken Unknown] dulaglutide 1.5 mg/0.5 mL subcutaneous pen injector (Trulicity) 1.5 mg subcut FR 12/16/20 [History Last Taken Unknown] losartan 100 mg tablet 100 mg PO DAILY 12/16/20 [History Last Taken 12/15/21 07:30] albuterol sulfate 90 mcg/actuation aerosol inhaler 2 puff inhalation Q4H PRN PRN sob & or wheezing 02/27/21 [History Last Taken 12/15/21 07:30] ergocalciferol (vitamin D2) 1,000 unit capsule 1,000 unit PO DAILY 02/27/21 [History Last Taken Unknown] ondansetron 4 mg disintegrating tablet 4 mg PO Q8H PRN nausea and vomiting #10 tabs 12/04/21 [Rx Last Taken Unknown] aspirin 81 mg chewable tablet 162 mg PO DAILY 12/11/21 [History Last Taken 12/13/21] carvedilol 6.25 mg tablet 6.25 tab PO BID 12/11/21 [History Last Taken 12/15/21 07:30] bupropion HCl 150 mg tablet,12 hr sustained-release (Wellbutrin SR) 150 mg PO DAILY 12/14/21 [History Last Taken Unknown] hydromorphone 2 mg tablet (Dilaudid) 2 mg PO Q8H PRN pain 3 days #9 tabs 05/04/22 [Rx Last Taken Unknown] ketorolac 10 mg tablet 10 mg PO Q8H PRN pain 5 days #15 tabs 05/04/22 [Rx Last Taken Unknown] ondansetron HCl 4 mg tablet 4 mg PO Q6H PRN nausea and vomiting #15 tabs 05/04/22 [Rx Last Taken Unknown] atorvastatin 40 mg tablet 40 mg PO QHS 08/07/23 [History Last Taken Unknown] Allergy/AdvReac Type Severity Reaction Status Date / Time erythromycin base AdvReac Diarrhea Verified 08/07/23 13:14 oxycodone [From Percocet] AdvReac Other Verified 08/07/23 13:14 tramadol AdvReac Other Verified 08/07/23 13:14 Surgical History H/O shoulder replacement History of coronary artery bypass graft History of thoracic aortic aneurysm repair Hx of cystoscopy Status post reverse total shoulder replacement Social History Smoking Status: Never smoker ROS Constitutional Constitutional: Denies anorexia, change in weight, chills, fatigue, fever(s), night sweats or weakness Eyes Eyes: Denies blurry vision, change in vision, discharge from eye(s), double vision or eye pain Cardiovascular Cardiovascular: Denies chest pain, claudication, dyspnea on exertion, edema, lightheadedness or palpitations Respiratory/Chest Respiratory/Chest: Denies cough, dyspnea, excessive phlegm production, hemoptysis, shortness of breath at rest or shortness of breath with exertion Gastrointestinal Gastrointestinal: Denies abdominal pain, constipation, diarrhea, hematemesis, hematochezia, melena, nausea or vomiting Genitourinary Genitourinary: Denies dysuria, hematuria, urinary frequency, urinary hesitancy, urinary incontinence or urinary urgency Musculoskeletal Musculoskeletal: Denies back pain, joint pain, joint stiffness, joint swelling, myalgias or neck pain Neurologic Neurologic: Reports dizziness and other Details: Patient complains of unsteadiness while walking ; Denies abnormal gait, abnormal speech, focal weakness, headache(s), loss of vision, numbness, other visual disturbances, paresthesias, syncope or tingling Psychiatric Psychiatric: Denies anxiety, cognitive impairment, depression, irritability, mood swings or suicidal ideation Endocrine Endocrinology: Denies change in body appearance, cold intolerance, excessive sweating, heat intolerance, polydipsia or polyuria Hematologic/Lymphatic Hematologic/Lymphatic: Denies none, anemia, easy bleeding, easy bruising or lymphadenopathy Allergic/Immunologic Allergic/Immunologic: Denies rhinitis, urticaria, eczemia or asthma Vital Signs Vital Signs Vital Signs: 08/07/23 13:12 08/07/23 15:06 08/07/23 15:06 Temperature 96.8 F L Temperature Source Temporal Pulse Rate 83 71 Respiratory Rate 16 16 Respiratory Effort Respiratory Pattern Blood Pressure 155/89 H 149/82 H Blood Pressure Mean 111 104 Pulse Ox 97 95 95 Oxygen Delivery Method Room Air Room Air Room Air 08/07/23 15:06 08/07/23 17:00 08/07/23 17:36 Temperature 98.3 F Temperature Source Pulse Rate 66 72 Respiratory Rate 16 16 Respiratory Effort Normal Respiratory Pattern Normal Blood Pressure 146/86 H 112/57 L Blood Pressure Mean 106 75 Pulse Ox 94 95 Oxygen Delivery Method Room Air Weight Weight: 113.171 kg Body Mass Index (BMI) 32.4 Physical Exam Const alert, oriented x3, no apparent distress and healthy appearing General Appearance: cooperative, well kempt and well developed Orientation / Consciousness: awake, oriented to person, oriented to place and oriented to time HEENT normocephalic, head/scalp atraumatic and moist oral mucous membranes HEENT Narrative: Patient has an artificial left eye Eyes PERRL, EOMs intact bilaterally and conjunctivae normal Neck supple, no JVD, thyroid normal and no carotid bruits General: trachea midline Resp normal respiratory effort, no retractions, no use of accessory muscles and clear to auscultation bilaterally Auscultation: Negative for rales, rhonchi or wheezes Cardio regular rate, regular rhythm, S1 normal heart sound, S2 normal heart sound, no rub and no gallops Cardio Narrative: 2/6 systolic murmur is noted to the right sternal border GI normal to inspection, nondistended, normoactive bowel sounds, soft to palpation, non-tender and non-distended Extremity no clubbing, cyanosis or edema Skin no rashes or lesions noted General Skin Exam: no breakdown Neuro oriented x3, CN's II-XII intact bilaterally, moves all extremities, no focal motor deficits and no sensory deficits noted Neuro Narrative: Patient was not ambulated during the exam Sensorium / Orientation: awake, alert, oriented to person, oriented to place and oriented to time Speech: speech normal Motor Exam: strength 5/5 throughout Psych affect normal Results Lab / Micro Data 08/07/23 14:30 08/07/23 14:30 Labs: Laboratory Results - last 24 hr 08/07/23 14:30: WBC 7.9, RBC 5.58, Hgb 15.9, Hct 49.3, MCV 88.4, MCH 28.5, MCHC 32.3, RDW Std Deviation 49.2 H, RDW Coeff of Cristal 15.4 H, Plt Count 230, MPV 9.7, Immature Gran % (Auto) 0.500, Neut % (Auto) 66.8, Lymph % (Auto) 18.1 L, Brooke % (Auto) 8.0, Eos % (Auto) 5.7 H, Baso % (Auto) 0.9, Absolute Neuts (auto) 5.3, Absolute Lymphs (auto) 1.43, Nucleated RBC % 0, PT 12.9, INR 1.0, APTT 26.1, Sodium 139, Potassium 4.1, Chloride 111 H, Carbon Dioxide 21.0, Anion Gap 7, BUN 21 H, Creatinine 1.05, Estim Creat Clear Calc 82.61, Est GFR (MDRD) Af Amer 89, Est GFR (MDRD) Non-Af 74, BUN/Creatinine Ratio 20.0, Glucose 135 H, Calcium 9.7 08/07/23 16:08: POC Glucose 103 Imaging Radiology Impression Chest X-Ray 08/07/23 14:20 IMPRESSION: Stable chest with no acute or active cardiopulmonary disease. Electronically Signed: Elmer Knott MD at 14:26 EST Reading Location ID and State: [facility] / [place] , Service support , Head/Neck CTA 08/07/23 15:07 IMPRESSION: No evidence of arterial stenosis, occlusion, dissection or intracranial aneurysm. Electronically Signed: Lam Andrea MD at 16:15 EST , Assessment & Plan Assessment/Plan (1) Vertigo: PLAN: Plan 1. Vertigo-etiology unclear at this point, most probably benign vertigo, patient will be placed in observation status on PCU, he will be given oral Valium for his symptoms, to be complete I have decided to order an MRI of the brain without contrast to rule out the possibility of a small stroke. I do not feel the patient needs NIH scores documented. #2 coronary artery disease-this appears to be stable at this time, patient will remain on his current medications #3 obstructive sleep apnea-patient's will bring in his CPAP machine #4 essential hypertension-patient will remain on his home medications #5 chronic obstructive pulmonary disease-patient uses a Breo inhaler, he uses it once a day and he has had his dose for today, I will elect to hold his dose tomorrow in case he is discharged home in which case he can use it then #6 type 2 diabetes-patient is on Trulicity and oral medications for his diabetes, fingerstick blood sugars will be monitored and he will receive sliding scale insulin Total clinical time spent by myself addressing the patient's medical issues, reviewing all of his data, and collaborating with the patient's care team: 55 minutes Charges/Coding Visit Charges Inpatient E&M: 38110 Init Hosp L2
--- NOTE | 2023-08-07 19:46 | MRI_ITS ---
STUDY: MRI BRAIN WITHOUT CONTRAST REASON FOR EXAM: Male, 73 years old. Ataxia, dizziness TECHNIQUE: Standardized multiplanar fat and water weighted pulse sequences were obtained. COMPARISON: Head CT dated August 07, 2023 FINDINGS: Normal size of the ventricles and extra-axial spaces for the patient''s age. There are a limited number of small white matter hyperintensities, distributed throughout the deep white matter tracts of the cerebral hemispheres, consistent with mild chronic white matter ischemic changes. There is no evidence for recent intracranial ischemia or other cause of cytotoxic edema on diffusion weighted imaging (DWI). Normal T2* images of the brain without demonstrated susceptibility artifact. There is no demonstrated hemosiderin stain. No hydrocephalus or midline shift is present. Normal bilateral basal ganglia. Normal thalami. There is no extra-axial fluid accumulation. Normal flow voids within the major intracranial circulation suggesting patency by spin echo criteria. Normal sella turcica, pituitary gland, infundibular stalk, optic chiasm and hypothalamus. Normal tectal plate and pineal gland. Normal midbrain, sushma and medulla. Normal cerebellum. Normal basal cisterns. Normal bilateral temporal bones. Normal bilateral internal auditory canals. No demonstrated orbital abnormality, within the constraints of a routine brain study. Normal visualized paranasal sinuses. Normal calvarium and skull base. Normal visualized soft tissue structures. Normal visualized upper cervical spine. MRI/Brain without Contrast IMPRESSION: 1. Involutional and chronic ischemic changes of the brain, as described above. Electronically Signed: Kg Fairchild MD at 12:41 EST ,
[2023-08-07 20:11] VITALS: BMI 31.7
[2023-08-07 20:38] VITALS: BP 144/75; PULSE 66; RESP 18; TEMP 35.8; O2SAT 95
[2023-08-07] MEDS: Pramipexole Di-HCl 0.25 MG Tablet PO (22:15)
[2023-08-07] MEDS: Atorvastatin Calcium 40 MG Tablet PO (22:15)
[2023-08-07] MEDS: Carvedilol 6.25 MG Tablet PO (22:15)
[2023-08-07 22:17] VITALS: BP 141/82; PULSE 66; RESP 18; TEMP 35.9; O2SAT 96
--- NOTE | 2023-08-07 22:50 | CPS ---
Patient on own PAP machine for the night.
--- OUTSIDE RECORDS SUMMARY | 2023-08-08 00:27 | XMS RPT_ITS | CCD ---
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 Name Role Phone COOPER RM Unavailable Unavailable COOPER RM Unavailable Unavailable Roberto Carlos Mullen Unavailable Unavailable COOPER RM Unavailable Unavailable COOPER RM Unavailable Unavailable Roberto Carlos Mullen Unavailable Unavailable Roberto Carlos Mullen MD Primary Care Provider Vijaya PAREKH, Dina Unavailable Francisco Javier Malik MD Unavailable Francisco Javier Malik MD Unavailable Sowmya PT, Nai Unavailable Roberto Carlos Mullen MD Primary Care Provider Francisco Javier Malik MD Unavailable Francisco Javier Malik MD Unavailable Sowmya PT, Nai Unavailable Roberto Carlos Mullen MD Primary Care Provider Francisco Javier Malik MD Unavailable Sowmya PT, Nai Unavailable Roberto Carlos Mullen MD Primary Care Provider Vijaya PAREKH, Dina Unavailable Francisco Javier Malik MD Unavailable Francisco Javier Malik MD Unavailable Sowmya PT, Nai Unavailable Sowmya PT, Nai Unavailable MICHELLE WARD Referring Unavailable ROBERTO CARLOS MULLEN Primary Care Unavailable EZEQUIEL BEYER Referring Unavailable PAZ, ROBERTO CARLOS Pierre Primary Care Unavailable Vijaya PAREKH, Dina Unavailable Unavailable MICHELLE WARD Attending Unavailable PAZ, ROBERTO CARLOS Pierre Primary Care Unavailable PAZ, ROBERTO CARLOS Pierre Primary Care Unavailable CYNTHIA HUGGINS Unavailable AMAIRANI, VIRY DIA Admitting Unavailab le AMAIRANI, VIRY DIA Attending Unavailab le AMAIRANI, VRIY DIA Referring Unavailab le MICHELLE WARD Attending Unavailable PAZ, ROBERTO CARLOS Pierre Primary Care Unavailable MICHELLE WARD Attending Unavailable PAZ, ROBERTO CARLOS Pierre Primary Care Unavailable MICHELLE WARD Attending Unavailable PAZ, ROBERTO CARLOS Pierre Primary Care Unavailable PAZ, ROBERTO CARLOS Pierre Primary Care Unavailable SHI ELDRIDGE Referring Unavailable PAZ, ROBERTO CARLOS Pierre Primary Care Unavailable AMAIRANI, VIRY DIA Referring Unavailab le PAZ, ROBERTO CARLOS Pierre Primary Care Unavailable AMAIRANI, VIRY DIA Referring Unavailab le PAZ, ROBERTO CARLOS Pierre Primary Care Unavailable AMAIRANI, VIRY DIA Attending Unavailab le PAZ, ROBERTO CARLOS Pierre Primary Care Unavailable DARNELL GOMEZ Attending Unavailable PAZ, ROBERTO CARLOS Pierre Primary Care Unavailable EZEQUIEL BEYER Referring Unavailable MAYRA CALDERÓN Attending Unavailable PAZ, ROBERTO CARLOS Pierre Primary Care Unavailable PAZ, ROBERTO CARLOS Pierre Primary Care Unavailable EZEQUIEL BEYER Referring Unavailable PAZ, ROBERTO CARLOS Pierre Primary Care Unavailable EZEQUIEL BEYER Referring Unavailable LANE VU Attending Unavailable PAZ, ROBERTO CARLOS Pierre Primary Care Unavailable PAZ, ROBERTO CARLOS Pierre Primary Care Unavailable PAZ, ROBERTO CARLOS Pierre Attending Unavailable PAZ, ROBERTO CARLOS Pierre Referring Unavailable PAZ, ROBERTO CARLOS Pierre Primary Care Unavailable MARTÍN MURILLO Attending Unavailable PAZ, ROBERTO CARLOS Pierre Primary Care Unavailable KALEIGH SINGLETON III Referring Unavailabl e PAZ, ROBERTO CARLOS Pierre Primary Care Unavailable ELSI GALLAGHER Attending Unavailable PAZ, ROBERTO CARLOS Pierre Primary Care Unavailable PAZ, ROBERTO CARLOS Pierre Primary Care Unavailable PAZ, ROBERTO CARLOS Pierre Primary Care Unavailable PAZ, ROBERTO CARLOS Pierre Attending Unavailable PAZ, ROBERTO CARLOS Pierre Referring Unavailable PAZ, ROBERTO CARLOS Pierre Primary Care Unavailable PAZ, ROBERTO CARLOS Pierre Primary Care Unavailable ISAEL BEATTY Referring Unavailable ISAEL BEATTY Attending Unavailable MICHELLE WARD Referring Unavailable PAZ, ROBERTO CARLOS Pierre Primary Care Unavailable VIRY BALES Attending Unavailab le PAZ, ROBERTO CARLOS Pierre Primary Care Unavailable PAZ, ROBERTO CARLOS Pierre Primary Care Unavailable EZEQUIEL BEYER Attending Unavailable PAZ, ROBERTO CARLOS Pierre Primary Care Unavailable ISAEL BEATTY Referring Unavailable TESTRAKE, ISAEL Attending Unavailable PAZ, ROBERTO CARLOS Pierre Primary Care Unavailable PAZ, ROBERTO CARLOS Pierre Attending Unavailable PAZ, ROBERTO CARLOS Pierre Primary Care Unavailable ISAEL BEATTY Attending Unavailable VIRY BALES Referring Unavailab le PAZ, ROBERTO CARLOS Pierre Primary Care Unavailable BEHZAD, TAB Attending Unavailable PAZ, ROBERTO CARLOS Pierre Primary Care Unavailable PAZ, ROBERTO CARLOS Pierre Attending Unavailable PAZ, ROBERTO CARLOS Pierre Primary Care Unavailable PAZ, ROBERTO CARLOS Pierre Referring Unavailable PAZ, ROBERTO CARLOS Pierre Referring Unavailable PAZ, ROBERTO CARLOS Pierre Primary Care Unavailable PAZ, ROBERTO CARLOS Pierre Referring Unavailable PAZ, ROBERTO CARLOS Pierre Primary Care Unavailable PAZ, ROBERTO CARLOS Pierre Primary Care Unavailable BEHZAD, TAB Attending Unavailable AMAIRANIVIRY Referring Unavailab le AMAIRANI, VIRY DIA Referring Unavailab le PAZ, ROBERTO CARLOS Pierre Primary Care Unavailable AMAIRANI, VIRY DIA Referring Unavailab le PAZ, ROBERTO CARLOS Pierre Primary Care Unavailable BEHZAD, TAB Attending Unavailable AMAIRANI, VIRY DIA Referring Unavailab le PAZ, ROBERTO CARLOS Pierre Primary Care Unavailable BEHZAD, TAB Attending Unavailable AMAIRANIVIRY Referring Unavailab le PAZ, ROBERTO CARLOS Pierre Primary Care Unavailable AMAIRANI, VIRY DIA Referring Unavailab le PAZ, ROBERTO CARLOS Pierre Primary Care Unavailable AMAIRANI, VIRY DIA Referring Unavailab le PAZ, ROBERTO CARLOS Pierre Primary Care Unavailable BEHZAD, TAB Attending Unavailable AMAIRANI, VIRY DIA Referring Unavailab le PAZ, ROBERTO CARLOS Pierre Primary Care Unavailable BEHZAD, TAB Attending Unavailable PAZ, ROBERTO CARLOS Pierre Primary Care Unavailable EZEQUIEL BEYER Referring Unavailable LANE VU Attending Unavailable Allergies Allergy Classification Reported Allergen(s) Allergy Type Date of Onset Reaction(s) Facility (20 sources) erythromycin; Translations: [ERYTHROMYCIN] Drug Allergy 7 Diarrhea [facility] Repository (20 sources) Seasonal allergy; Translations: [SEASONAL ALLERGIES] Propensity to adverse reactions (disorder) 4 Other: See Comments [facility] Repository (20 sources) aMILoride / hydroCHLOROthia zide; Translations: [AMILORIDE-HYDR OCHLOROTHIAZIDE ] Drug Allergy 1 Other: See Comments [facility] Work Phone: (20 sources) oxyCODONE; Translations: [OXYCODONE] Drug Allergy 2 GI Upset [facility] (20 sources) traMADol; Translations: [TRAMADOL] Drug Allergy 2 GI Upset [facility] Medications Current Medications Medication Drug Class(es) Dates Sig (Normalized) Sig (Original) amLODIPine 10 mg oral tablet (20 sources) Dihydropyridine Calcium Channel Hue Start: 08-17-2020 End: 09-12-2023 take 1 tablet by mouth once daily amLODIPine (NORVASC) 10 mg tablet Indications: Essential hypertension Take 1 tablet by mouth once daily. 90 tablet 3 09/12/2022 09/12/2023 Active Completed/Discontinued Medications Medication Drug Class(es) Dates Sig (Normalized) Sig (Original) [id number] 200 actuat albuterol 0.09 mg/actuat metered dose inhaler (20 sources) beta2-Adrenergic Agonist Start: 11-27-2020 take 2 puff(s) by inhalation every four hours as needed for wheezing albuterol HFA (VENTOLIN HFA) 90 mcg/actuation inhaler Indications: Bacterial pneumonia Inhale 2 Puffs as instructed every 4 hours as needed for wheezing/shortnes s of breath. 18 g 11 11/27/2020 Active Problems Active Problems Problem Classification Problem Date Documented Da te Episodic/Chronic Abdominal pain (1 source) Right lower quadrant pain; Translations: [Right lower quadrant abdominal pain] Onset: 4 Episodic Allergic reactions (1 source) Inflammatory dermatosis; Translations: [Dermatitis, unspecified] Episodic Aortic; peripheral; and visceral artery aneurysms (20 sources) Aneurysm of thoracic aorta; Translations: [Thoracic aortic aneurysm, without rupture] Onset: 8 11-03-2020 Chronic Asthma (20 sources) Moderate persistent asthma; Translations: [Moderate persistent asthma, uncomplicated] Onset: 4 06-07-2021 Chronic Blindness and vision defects (20 sources) Visual impairment; Translations: [Blindness, one eye, unspecified eye] Onset: 2 06-07-2021 Chronic Cardiac and circulatory congenital anomalies (20 sources) Congenital anomaly of aortic arch; Translations: [Congenital malformation of aorta unspecified] 06-07-2021 Chronic Conduction disorders (20 sources) First degree atrioventricular block; Translations: [Atrioventricular block, first degree] Onset: 2 04-21-2022 Chronic Congestive heart failure; nonhypertensive (1 source) Chronic diastolic heart failure; Translations: [Chronic diastolic (congestive) heart failure] Chronic Coronary atherosclerosis and other heart disease (20 sources) Coronary arteriosclerosis; Translations: [Atherosclerotic heart disease of [place] coronary artery without angina pectoris] Onset: 1 11-13-2020 Chronic Diabetes mellitus with complications (6 sources) Polyneuropathy due to type 2 diabetes mellitus; Translations: [Type 2 diabetes mellitus with diabetic polyneuropathy] Onset: 3 Chronic Diabetes mellitus without complication (20 sources) Type 2 diabetes mellitus without complication; Translations: [Type 2 diabetes mellitus without complications] Onset: 3 06-07-2021 Chronic Disorders of lipid metabolism (20 sources) Hyperlipidemia; Translations: [Hyperlipidemia, unspecified] Onset: 5 03-13-2015 Chronic Diverticulosis and diverticulitis (1 source) Diverticular disease; Translations: [Diverticulosis of intestine, part unspecified, without perforation or abscess without bleeding] Chronic Essential hypertension (20 sources) Essential (primary) hypertension; Translations: [Essential hypertension] Onset: 8 Chronic Genitourinary symptoms and ill-defined conditions (1 source) Hypercalciuria; Translations: [Hypercalciuria] Episodic Heart valve disorders (20 sources) History of aortic valve replacement; Translations: [Presence of prosthetic heart valve] Onset: 5 11-13-2020 Chronic Miscellaneous mental health disorders (1 source) Chronic insomnia; Translations: [Psychophysiologic insomnia] Chronic Mood disorders (20 sources) Recurrent major depression in partial remission; Translations: [Major depressive disorder, recurrent, in partial remission] Onset: 6 08-25-2015 Chronic Nutritional deficiencies (20 sources) Vitamin D deficiency; Translations: [Vitamin D deficiency, unspecified] Onset: 4 06-07-2021 Chronic Occlusion or stenosis of precerebral arteries (20 sources) Bilateral stenosis of carotid arteries; Translations: [Occlusion and stenosis of bilateral carotid arteries] Onset: 0 03-11-2020 Chronic Osteoarthritis (20 sources) Arthritis of right knee; Translations: [Unilateral primary osteoarthritis, right knee] Onset: 3 05-20-2013 Chronic Osteoporosis (1 source) Osteoporosis; Translations: [Other osteoporosis without current pathological fracture] Chronic Other acquired deformities (3 sources) Lumbar spondylolisthesis; Translations: [Spondylolisthesis, lumbar region] Episodic Other connective tissue disease (20 sources) History of total knee arthroplasty; Translations: [Presence of left artificial knee joint] Onset: 0 12-26-2019 Chronic Other connective tissue disease (20 sources) History of reverse prosthetic total arthroplasty of right shoulder; Translations: [Presence of right artificial shoulder joint] Onset: 1 11-26-2020 Chronic Other connective tissue disease (20 sources) History of operative procedure on shoulder; Translations: [Presence of unspecified artificial shoulder joint] Onset: 3 09-20-2022 Chronic Other connective tissue disease (2 sources) Presence of right artificial shoulder joint; Translations: [Status post reverse total arthroplasty of right shoulder] Onset: 1 Chronic Other connective tissue disease (1 source) Presence of unspecified artificial shoulder joint; Translations: [Infection of prosthetic shoulder joint, subsequent encounter] Onset: 3 Chronic Other connective tissue disease (5 sources) Pain of toe of left foot; Translations: [Pain in left toe(s)] Episodic Other connective tissue disease (5 sources) Pain of toe of right foot; Translations: [Pain in right toe(s)] Episodic Other connective tissue disease (1 source) Muscle pain; Translations: [Myalgia, unspecified site] Episodic Other gastrointestinal disorders (3 sources) Altered bowel function; Translations: [Other specified symptoms and signs involving the digestive system and abdomen] Episodic Other gastrointestinal disorders (1 source) Change in bowel habit; Translations: [Change in bowel habits] Onset: 3 Episodic Other hereditary and degenerative nervous system conditions (20 sources) Restless legs; Translations: [Restless legs syndrome] 06-07-2021 Chronic Other liver diseases (20 sources) Steatosis of liver; Translations: [Fatty (change of) liver, not elsewhere classified] 11-13-2020 Chronic Other liver diseases (9 sources) Elevated liver enzymes level; Translations: [Abnormal levels of other serum enzymes] Onset: 0 12-08-2019 Episodic Other liver diseases (1 source) Aspartate aminotransferase serum level raised; Translations: [Elevated AST (SGOT)] 05-22-2023 Episodic Other lower respiratory disease (1 source) Cough; Translations: [Cough] Episodic Other nervous system disorders (1 source) Chronic pain; Translations: [Other chronic pain] Chronic Other non-traumatic joint disorders (1 source) Hip pain; Translations: [Pain in unspecified hip] Episodic Other non-traumatic joint disorders (2 sources) Pain in right knee; Translations: [Pain in joint, lower leg] Episodic Other non-traumatic joint disorders (2 sources) Chronic pain of right upper limb; Translations: [Pain in right shoulder] Episodic Other non-traumatic joint disorders (1 source) Shoulder pain; Translations: [Pain in right shoulder] Episodic Other nutritional; endocrine; and metabolic disorders (20 sources) Obese class I; Translations: [Obesity, unspecified] Onset: 9 01-03-2019 Chronic Other nutritional; endocrine; and metabolic disorders (5 sources) Hypercalcemia; Translations: [Hypercalcemia] Chronic Other skin disorders (1 source) Disorder of perianal skin; Translations: [Rash and other nonspecific skin eruption] Episodic Other upper respiratory disease (20 sources) Chronic rhinitis; Translations: [Chronic rhinitis] Onset: 8 06-18-2007 Chronic Other upper respiratory disease (20 sources) Allergic rhinitis; Translations: [Allergic rhinitis, unspecified] Onset: 3 06-29-2012 Chronic Peripheral and visceral atherosclerosis (5 sources) Peripheral vascular disease, unspecified; Translations: [Peripheral vascular disease, unspecified] Chronic Residual codes; unclassified (20 sources) Obstructive sleep apnea syndrome; Translations: [Obstructive sleep apnea (adult) (pediatric)] Onset: 5 11-27-2017 Chronic Residual codes; unclassified (1 source) Obstructive sleep apnea (adult) (pediatric); Translations: [SIVAKUMAR on CPAP] Onset: 8 Chronic Residual codes; unclassified (1 source) Dependence on other enabling machines and devices; Translations: [SIVAKUMAR on CPAP] Onset: 8 Chronic Spondylosis; intervertebral disc disorders; other back problems (20 sources) Degeneration of lumbar intervertebral disc; Translations: [Other intervertebral disc degeneration, lumbar region] Onset: 2 Chronic Thyroid disorders (1 source) Non-toxic uninodular goiter; Translations: [Nontoxic single thyroid nodule] Chronic Unclassified (1 source) Unknown / UNK(Unknown) Onset: 6 Unclassified (1 source) Multiple subsegmental pulmonary emboli without acute cor pulmonale; Translations: [Multiple subsegmental pulmonary emboli without acute cor pulmonale (HCC)] Onset: 2 Viral infection (1 source) Disease caused by 2019-nCoV; Translations: [COVID-19] Episodic Past or Other Problems Problem Classification Problem Date Documented Da te Episodic/Chronic Abdominal hernia (20 sources) Diaphragmatic hernia; Translations: [Diaphragmatic hernia without obstruction or gangrene] Onset: 04-23-2009 04-23-2009 Episodic Administrative/social admission (20 sources) Reduced mobility; Translations: [Other reduced mobility] Onset: 03-12-2022 04-21-2022 Episodic Calculus of urinary tract (20 sources) Calculus of kidney and ureter ; Translations: [Calculus of kidney with calculus of ureter] Onset: 12-27-2021 04-21-2022 Episodic Complication of device; implant or graft (10 sources) Prosthetic joint infection; Translations: [Infection and inflammatory reaction due to unspecified internal joint prosthesis, initial encounter] Onset: 08-18-2022 Episodic Conditions associated with dizziness or vertigo (20 sources) Benign paroxysmal positional vertigo; Translations: [Benign paroxysmal vertigo, unspecified ear] Onset: 04-21-2022 Episodic Coronary atherosclerosis and other heart disease (20 sources) Aortocoronary bypass graft present; Translations: [Presence of aortocoronary bypass graft] Onset: 03-12-2022 04-21-2022 Episodic Malaise and fatigue (3 sources) Fatigue; Translations: [Other fatigue] Onset: 10-14-2022 Episodic Mycoses (7 sources) Onychomycosis; Translations: [Tinea unguium] Onset: 01-20-2023 Episodic Nonspecific chest pain (3 sources) Chest pain; Translations: [Chest pain, unspecified] Onset: 09-20-2022 Episodic Other connective tissue disease (20 sources) Impingement syndrome of left shoulder region; Translations: [Impingement syndrome of left shoulder] Onset: 10-04-2017 10-04-2017 Episodic Other connective tissue disease (20 sources) Full thickness rotator cuff tear; Translations: [Complete rotator cuff tear or rupture of right shoulder, not specified as traumatic] Onset: 11-13-2020 11-13-2020 Episodic Other connective tissue disease (1 source) Pain in left toe(s); Translations: [Pain in toe of left foot] Onset: 01-20-2023 Episodic Other connective tissue disease (1 source) Pain in right toe(s); Translations: [Pain in toe of right foot] Onset: 01-20-2023 Episodic Other gastrointestinal disorders (20 sources) History of diverticulitis; Translations: [Personal history of other diseases of the digestive system] Onset: 03-12-2022 04-21-2022 Episodic Other liver diseases (1 source) Abnormal levels of other serum enzymes; Translations: [Elevated alkaline phosphatase level] Onset: 11-28-2022 Episodic Other non-traumatic joint disorders (1 source) Pain in right shoulder; Translations: [Right shoulder pain, unspecified chronicity] Onset: 08-30-2022 Episodic Other nutritional; endocrine; and metabolic disorders (20 sources) H/O: thyroid disorder; Translations: [Personal history of other endocrine, nutritional and metabolic disease] Onset: 02-24-2021 02-24-2021 Episodic Other screening for suspected conditions (not mental disorders or infectious disease) (20 sources) Measurement finding above reference range; Translations: [Abnormal coagulation profile] Onset: 12-08-2019 Episodic Other upper respiratory disease (20 sources) Deviated nasal septum; Translations: [Deviated nasal septum] Onset: 06-18-2007 06-18-2007 Episodic Phlebitis; thrombophlebitis and thromboembolism (20 sources) H/O: Deep vein thrombosis; Translations: [Personal history of other venous thrombosis and embolism] Onset: 10-19-2021 Episodic Pulmonary heart disease (20 sources) Pulmonary embolism; Translations: [Multiple subsegmental pulmonary emboli without acute cor pulmonale] Onset: 12-21-2020 12-21-2020 Episodic Residual codes; unclassified (1 source) Localized edema; Translations: [Localized edema] Onset: 03-09-2023 Episodic Spondylosis; intervertebral disc disorders; other back problems (20 sources) Spinal stenosis of lumbar region; Translations: [Spinal stenosis, lumbar region without neurogenic claudication] Onset: 03-12-2022 Episodic Varicose veins of lower extremity (1 source) Asymptomatic varicose veins of bilateral lower extremities; Translations: [Varicose veins of both lower extremities, unspecified whether complicated] Onset: 03-09-2023 Episodic Results Test Name Value Interpretation Reference Range Facil ity Vital Signs Date Time Vital Sign Value Performing Clinician Andreas hernandez 05-02-2023 14:21-0500 Body height 188 cm Martín Murillo MD Work Phone: [facility] 05-02-2023 14:21-0500 Body temperature 98.2 [degF] Martín Murillo MD Work Phone: [facility] 05-02-2023 14:21-0500 Body weight 111.13 kg Martín Murillo MD Work Phone: [facility] 05-02-2023 14:21-0500 Diastolic blood pressure 62 mm[Hg] Martín Murillo MD Work Phone: [facility] 05-02-2023 14:21-0500 Heart rate 96 /min Martín Murillo MD Work Phone: [facility] 05-02-2023 14:21-0500 SaO2% (BldA) [Mass fraction] 95 % Martín Murillo MD Work Phone: [facility] 05-02-2023 14:21-0500 Systolic blood pressure 98 mm[Hg] Martín Murillo MD Work Phone: [facility] 04-26-2023 14:18-0500 Body weight 110.68 kg Roberto Carlos Mullen MD Work Phone: [facility] 04-26-2023 14:18-0500 Diastolic blood pressure 70 mm[Hg] Roberto Carlos Mullen MD Work Phone: [facility] 04-26-2023 14:18-0500 Heart rate 80 /min Roberto Carlos Mullen MD Work Phone: [facility] 04-26-2023 14:18-0500 Respiratory rate 14 /min Roberto Carlos Mullen MD Work Phone: [facility] 04-26-2023 14:18-0500 SaO2% (BldA) [Mass fraction] 96 % Roberto Carlos Mullen MD Work Phone: [facility] 04-26-2023 14:18-0500 Systolic blood pressure 134 mm[Hg] Roberto Carlos Mullen MD Work Phone: [facility] 12-20-2022 13:12-0400 Body height 188 cm Michelle Ed PA-C Work Phone: [facility] 12-20-2022 13:12-0400 Body weight 102.06 kg Michelle Ed PA-C Work Phone: [facility] 12-20-2022 13:12-0400 Respiratory rate 20 /min Michelle Ed PA-C Work Phone: [facility] 10-13-2022 16:43-0400 Body height 188 cm Roberto Carlos Mullen MD Work Phone: [facility] 10-13-2022 16:43-0400 Body temperature 98.4 [degF] Roberto Carlos Mullen MD Work Phone: [facility] 10-13-2022 16:43-0400 Body weight 103.87 kg Roberto Carlos Mullen MD Work Phone: [facility] 10-13-2022 16:43-0400 Diastolic blood pressure 72 mm[Hg] Roberto Carlos Mullen MD Work Phone: [facility] 10-13-2022 16:43-0400 Heart rate 90 /min Roberto Carlos Mullen MD Work Phone: [facility] 10-13-2022 16:43-0400 SaO2% (BldA) [Mass fraction] 95 % Roberto Carlos Mullen MD Work Phone: [facility] 10-13-2022 16:43-0400 Systolic blood pressure 118 mm[Hg] Roberto Carlos Mullen MD Work Phone: [facility] 10-06-2022 15:39-0400 Body height 188 cm Michelle Ed PA-C Work Phone: [facility] 10-06-2022 15:39-0400 Body weight 101.15 kg Michelle Ed PA-C Work Phone: [facility] 10-06-2022 15:39-0400 Respiratory rate 18 /min Michelle Ward PA-C Work Phone: [facility] 09-06-2022 13:05-0400 Body height 188 cm Pst 1 [facility] 09-06-2022 13:05-0400 Body temperature 97.7 [degF] Pst 1 [facility] 09-06-2022 13:05-0400 Body weight 101.33 kg Pst 1 [facility] 09-06-2022 13:05-0400 Diastolic blood pressure 92 mm[Hg] Pst 1 [facility] 09-06-2022 13:05-0400 Heart rate 71 /min Pst 1 [facility] 09-06-2022 13:05-0400 Respiratory rate 16 /min Pst 1 [facility] 09-06-2022 13:05-0400 SaO2% (BldA) [Mass fraction] 96 % Pst 1 [facility] 09-06-2022 13:05-0400 Systolic blood pressure 147 mm[Hg] Pst 1 [facility] 08-30-2022 11:07-0400 Body weight 104.78 kg Mayra Haagen TECHNOLOGY EDUCATION TEACHER.[employer] Work Phone: [facility] 08-30-2022 11:07-0400 Diastolic blood pressure 80 mm[Hg] Mayra Haagen TECHNOLOGY EDUCATION TEACHER.PRINTED CIRCUIT BOARD PCB DRAFTSMAN Work Phone: [facility] 08-30-2022 11:07-0400 Heart rate 76 /min Mayra Haagen TECHNOLOGY EDUCATION TEACHER.PRINTED CIRCUIT BOARD PCB DRAFTSMAN Work Phone: [facility] 08-30-2022 11:07-0400 Respiratory rate 18 /min Mayra Haagen TECHNOLOGY EDUCATION TEACHER.PRINTED CIRCUIT BOARD PCB DRAFTSMAN Work Phone: [facility] 08-30-2022 11:07-0400 SaO2% (BldA) [Mass fraction] 94 % Mayra Haagen TECHNOLOGY EDUCATION TEACHER.PRINTED CIRCUIT BOARD PCB DRAFTSMAN Work Phone: [facility] 08-30-2022 11:07-0400 Systolic blood pressure 118 mm[Hg] Mayra Haagen TECHNOLOGY EDUCATION TEACHER.PRINTED CIRCUIT BOARD PCB DRAFTSMAN Work Phone: [facility] 03-09-2023 13:48-0500 Body height 188 cm Viry Bales MD Work Phone: [facility] 08-18-2022 13:48-0500 Body weight 107.96 kg Viry Bales MD Work Phone: [facility] 08-18-2022 13:48-0500 Respiratory rate 18 /min Viry Bales MD Work Phone: [facility] 07-11-2022 15:33-0500 Body height 188 cm Margo Sola TECHNOLOGY EDUCATION TEACHER.PRINTED CIRCUIT [employer]ARD PCB DRAFTSMAN Work Phone: [facility] 07-11-2022 15:33-0500 Body weight 107.96 kg Margo Sola TECHNOLOGY EDUCATION TEACHER.PRINTED [employer]ARD PCB DRAFTSMAN Work Phone: [facility] 07-11-2022 15:33-0500 Diastolic blood pressure 86 mm[Hg] Margo Sola TECHNOLOGY EDUCATION TEACHER.PRINTED CIRCUIT BOARD PCB DRAFTSMAN Work Phone: [facility] 07-11-2022 15:33-0500 Heart rate 76 /min Margo Sola TECHNOLOGY EDUCATION TEACHER.PRINTED [employer] PCB DRAFTSMAN Work Phone: [facility] 07-11-2022 15:33-0500 Respiratory rate 12 /min Margo Sola TECHNOLOGY EDUCATION TEACHER.PRINTED CIRCUIT BOARD PCB DRAFTSMAN Work Phone: [facility] 07-11-2022 15:33-0500 SaO2% (BldA) [Mass fraction] 98 % Margo Sola TECHNOLOGY EDUCATION TEACHER.PRINTED CIRCUIT BOARD PCB DRAFTSMAN Work Phone: [facility] 07-11-2022 15:33-0500 Systolic blood pressure 138 mm[Hg] Margo Sola TECHNOLOGY EDUCATION TEACHER.PRINTED [employer] PCB DRAFTSMAN Work Phone: [facility] 07-05-2022 16:10-0500 Body height 183.7 cm Anthony Knight MD Work Phone: [facility] 07-05-2022 16:10-0500 Body weight 107.32 kg Anthony Knight MD Work Phone: [facility] 07-05-2022 16:10-0500 Diastolic blood pressure 83 mm[Hg] Anthony Knight MD Work Phone: [facility] 07-05-2022 16:10-0500 Heart rate 70 /min Anthony Knight MD Work Phone: [facility] 07-05-2022 16:10-0500 Respiratory rate 16 /min Anthony Knight MD Work Phone: [facility] 07-05-2022 16:10-0500 SaO2% (BldA) [Mass fraction] 97 % Anthony Knight MD Work Phone: [facility] 07-05-2022 16:10-0500 Systolic blood pressure 130 mm[Hg] Anthony Knight MD Work Phone: [facility] 04-21-2022 10:33-0500 Body height 185.4 cm Roberto Carlos Mullen MD Work Phone: [facility] 04-21-2022 10:33-0500 Body weight 107.5 kg Roberto Carlos Mullen MD Work Phone: [facility] 04-21-2022 10:33-0500 Diastolic blood pressure 78 mm[Hg] Roberto Carlos Mullen MD Work Phone: [facility] 04-21-2022 10:33-0500 Heart rate 76 /min Roberto Carlos Mullen MD Work Phone: [facility] 04-21-2022 10:33-0500 SaO2% (BldA) [Mass fraction] 97 % Roberto Carlos Mullen MD Work Phone: [facility] 04-21-2022 10:33-0500 Systolic blood pressure 128 mm[Hg] Roberto Carlos Mullen MD Work Phone: [facility] 02-22-2022 15:57-0400 Body height 185.4 cm Anthony Knight MD Work Phone: [facility] 02-22-2022 15:57-0400 Body weight 109.77 kg Anthony Knight MD Work Phone: [facility] 02-22-2022 15:57-0400 Diastolic blood pressure 91 mm[Hg] Anthony Knight MD Work Phone: [facility] 02-22-2022 15:57-0400 Heart rate 76 /min Anthony Knight MD Work Phone: [facility] 02-22-2022 15:57-0400 SaO2% (BldA) [Mass fraction] 98 % Anthony Knight MD Work Phone: [facility] 02-22-2022 15:57-0400 Systolic blood pressure 150 mm[Hg] Anthony Knight MD Work Phone: [facility] 01-05-2022 09:36-0400 Body weight 108.86 kg Roberto Carlos Mullen MD Work Phone: [facility] 01-05-2022 09:36-0400 Diastolic blood pressure 76 mm[Hg] Roberto Carlos Mullen MD Work Phone: [facility] 01-05-2022 09:36-0400 Heart rate 82 /min Roberto Carlos Mullen MD Work Phone: [facility] 01-05-2022 09:36-0400 Respiratory rate 20 /min Roberto Carlos Mullen MD Work Phone: [facility] 01-05-2022 09:36-0400 Systolic blood pressure 122 mm[Hg] Roberto Carlos Mullen MD Work Phone: [facility] 01-04-2022 09:34-0400 Body height 185 cm Ada Martinez TECHNOLOGY EDUCATION TEACHER.PRINTED CIRCUIT BOARD PCB DRAFTSMAN Work Phone: [facility] 01-04-2022 09:34-0400 Body weight 107.96 kg Ada Martinez TECHNOLOGY EDUCATION TEACHER.PRINTED CIRCUIT BOARD PCB DRAFTSMAN Work Phone: [facility] 01-04-2022 09:34-0400 Diastolic blood pressure 82 mm[Hg] Ada Martinez TECHNOLOGY EDUCATION TEACHER.PRINTED CIRCUIT BOARD PCB DRAFTSMAN Work Phone: [facility] 01-04-2022 09:34-0400 Heart rate 60 /min Ada Martinez TECHNOLOGY EDUCATION TEACHER.PRINTED CIRCUIT BOARD PCB DRAFTSMAN Work Phone: [facility] 01-04-2022 09:34-0400 SaO2% (BldA) [Mass fraction] 97 % Ada Martinez TECHNOLOGY EDUCATION TEACHER.PRINTED CIRCUIT BOARD PCB DRAFTSMAN Work Phone: [facility] 01-04-2022 09:34-0400 Systolic blood pressure 138 mm[Hg] Ada Martinez TECHNOLOGY EDUCATION TEACHER.PRINTED CIRCUIT BOARD PCB DRAFTSMAN Work Phone: [facility] 11-19-2021 10:15-0400 Body height 182.9 cm Anthony Knight MD Work Phone: [facility] 11-19-2021 10:15-0400 Body weight 109.32 kg Anthony Knight MD Work Phone: [facility] 11-19-2021 10:15-0400 Diastolic blood pressure 69 mm[Hg] Anthony Knight MD Work Phone: [facility] 11-19-2021 10:15-0400 Heart rate 67 /min Anthony Knight MD Work Phone: [facility] 11-19-2021 10:15-0400 Respiratory rate 16 /min Anthony Knight MD Work Phone: [facility] 11-19-2021 10:15-0400 SaO2% (BldA) [Mass fraction] 97 % Anthony Knight MD Work Phone: [facility] 11-19-2021 10:15-0400 Systolic blood pressure 123 mm[Hg] Anthony Knight MD Work Phone: [facility] 11-15-2021 11:11-0400 Heart rate 71 /min Digna Sampson APRN.PRINTED CIRCUIT BOARD PCB DRAFTSMAN Work Phone: [facility] 11-15-2021 11:11-0400 SaO2% (BldA) [Mass fraction] 95 % Digna Sampson APRN.PRINTED CIRCUIT BOARD PCB DRAFTSMAN Work Phone: [facility] 10-18-2021 14:38-0400 Body weight 107.05 kg Roberto Carlos Mullen MD Work Phone: [facility] 10-18-2021 14:38-0400 Diastolic blood pressure 62 mm[Hg] Roberto Carlos Mullen MD Work Phone: [facility] 10-18-2021 14:38-0400 Heart rate 76 /min Roberto Carlos Mullen MD Work Phone: [facility] 10-18-2021 14:38-0400 Systolic blood pressure 108 mm[Hg] Roberto Carlos Mullen MD Work Phone: [facility] 10-18-2021 10:14-0400 Body height 184 cm Marcial Aparicio MD Work Phone: [facility] 10-18-2021 10:14-0400 Body temperature 98.1 [degF] Marcial Aparicio MD Work Phone: [facility] 10-18-2021 10:14-0400 Body weight 107.96 kg Marcial Aparicio MD Work Phone: [facility] 10-18-2021 10:14-0400 Diastolic blood pressure 75 mm[Hg] Marcial Aparicio MD Work Phone: [facility] 10-18-2021 10:14-0400 Heart rate 71 /min Marcial Aparicio MD Work Phone: [facility] 10-18-2021 10:14-0400 SaO2% (BldA) [Mass fraction] 95 % Marcial Aparicio MD Work Phone: [facility] 10-18-2021 10:14-0400 Systolic blood pressure 131 mm[Hg] Marcial Aparicio MD Work Phone: [facility] Encounters Encounter Date Encounter Type Care Provider Facility Start: 07-31-2023 Telephone encounter Roberto Carlos Mullen MD Work Phone: [facility] [place] Procedures Date Procedure Procedure Detail Performing Clinician Start: 10-11-2022 Follow-up visit Follow Up MICHELLE WARD Start: 09-06-2022 Antibody screen MICHELLE WARD Plan of Treatment Date Care Activity Detail Author Start: 04-04-2026 Colonoscopy COLONOSCOPY [facility] Start: 04-04-2026 COLORECTAL CANCER SCREENING COLORECTAL CANCER SCREENING [facility] Start: 04-04-2026 Screening for malign ant neoplasm of colon [facility] Start: 05-19-2024 Hepatitis B surface antibody level LDL Cholesterol [facility] Start: 11-21-2024 BP Controlled (<130/80) BP Controlle d (<130/80) [facility] Start: 04-26-2024 Annual PCP Team Assistant Vice President da Disease Visit Annual PCP Team Chronic Disease Visit [facility] Start: 04-26-2024 RSV Vaccine (1 - 1-d ose 60+ series) RSV Vaccine (1 - 1-dose 60+ series) [facility] Immunizations Immunization Date Immunization Notes Care Provider Fa dexterty 05-19-2023 respiratory syncytia l virus (RSV) vaccine, bivalent (ABRYSVO) NA Jose Guadalupe CORREA Work Phone: [facility] 03-09-2023 influenza (HD-IIV4) vaccine, age 65+ yr, high dose, quadrivalent, PF (FLUZONE HIGH-DOSE) Roberto Carlos Mullen MD Work Phone: [facility] 04-29-2022 COVID-19 booster vaccine, age 12+ yr, bivalent (MODERNA) Roberto Carlos Mullen MD Work Phone: [facility] 04-01-2022 influenza, high dose seasonal, preservative-free Roberto Carlos Mullen MD Work Phone: [facility] 04-01-2022 influenza virus vacc ine, unspecified formulation Ezequiel Beyer MD Work Phone: [facility] 04-01-2021 influenza, high-dose , quadrivalent vaccine (FLUZONE HIGH DOSE QUADRIVALENT) Marcial Aparicio MD Work Phone: [facility] 04-01-2021 pneumococcal polysaccharide vaccine, 23 valent Marcial Aparicio MD Work Phone: [facility] 08-26-2020 COVID-19 vaccine, fu ll dose (MODERNA) Margo Selby APRN.PRINTED CIRCUIT BOARD PCB DRAFTSMAN Work Phone: [facility] 07-30-2020 COVID-19 vaccine, fu ll dose (MODERNA) Margo Selby APRN.PRINTED CIRCUIT BOARD PCB DRAFTSMAN Work Phone: [facility] 03-11-2020 influenza, high-dose , quadrivalent vaccine (FLUZONE HIGH DOSE QUADRIVALENT) Margo Selby APRN.PRINTED CIRCUIT BOARD PCB DRAFTSMAN Work Phone: [facility] 03-19-2019 influenza, high dose seasonal, preservative-free Margo Sola TECHNOLOGY EDUCATION TEACHER.[facility] Work Phone: [facility] Work Phone: 04-03-2018 influenza, high dose seasonal, preservative-free Margo Sola TECHNOLOGY EDUCATION TEACHER.[facility] Work Phone: [facility] 02-08-2017 influenza, high dose seasonal, preservative-free Margo Sola TECHNOLOGY EDUCATION TEACHER.PRINTED CIRCUIT BOARD PCB DRAFTSMAN Work Phone: [facility] 05-03-2016 pneumococcal polysaccharide vaccine, 23 valent Margo Sola TECHNOLOGY EDUCATION TEACHER.[facility] Work Phone: [facility] 02-22-2016 influenza, high dose seasonal, preservative-free Margo Sola TECHNOLOGY EDUCATION TEACHER.[facility] Work Phone: [facility] 03-13-2015 pneumococcal conjuga te vaccine, 13 valent Margo Sola TECHNOLOGY EDUCATION TEACHER.[facility] Work Phone: [facility] 03-03-2014 influenza, seasonal, injectable Margo Sola TECHNOLOGY EDUCATION TEACHER.[facility] Work Phone: [facility] 03-16-2010 influenza virus vacc ine, unspecified formulation Margo Sola TECHNOLOGY EDUCATION TEACHER.[facility] Work Phone: [facility] Work Phone: 04-30-2009 novel influenza-H1N1 -09, all formulations Margo Sola TECHNOLOGY EDUCATION TEACHER.[facility] Work Phone: [facility] Work Phone: 07-22-2008 tetanus toxoid, redu pamela diphtheria toxoid, and acellular pertussis vaccine, adsorbed Margo Sola TECHNOLOGY EDUCATION TEACHER.PRINTED CIRCUIT BOARD PCB DRAFTSMAN Work Phone: [facility] 04-18-2008 influenza virus vacc ine, unspecified formulation Margo Sola TECHNOLOGY EDUCATION TEACHER.[facility] Work Phone: [facility] Work Phone: 04-30-2007 influenza virus vacc ine, unspecified formulation Margo Sola TECHNOLOGY EDUCATION TEACHER.[facility] Work Phone: [facility] 03-06-2007 pneumococcal polysaccharide vaccine, 23 valent Margo Selby APRN.[facility] Work Phone: [facility] Work Phone: Payers Date Payer Category Payer Medicare [id number] 2019 Unknown MMO MMO MEDICARE SUPPLEMENT [id number] 2019-Present [phone] [address] [place] [address] Indemnity [id number] 2019 Unknown MMO MMO MEDICARE SUPPLEMENT [id number] 2019-Present [phone] [address] [place] [address] Indemnity [id number] 2016 Medicare MEDICARE MEDICAR E A AND B [id number] 2016-Present [phone] [address] [address] [place] [address] Medicare [id number] 2016 Medicare MEDICARE MEDICAR E A AND B [id number] 2016-Present [phone] [place] [address] Medicare [id number] 2016 Medicare [id number] Medicare [id number] Social History Date Type Detail Facility Tobacco smoking stat us WAIS Never smoked tobacco [facility] Start: 08-15-2021 End: 07-19-2023 Alcohol intake Current non-drinker of alcohol (finding) [facility] Start: 08-04-2021 End: 04-19-2022 History SDOH Alcohol Frequency 1 [facility] Start: 08-04-2021 History SDOH Alcohol Std Drinks 98 [facility] Start: 08-04-2021 End: 10-16-2022 History SDOH Social Connections Phone 2 [facility] Start: 08-04-2021 End: 10-16-2022 History SDOH Social Connections Living 3 [facility] Start: 08-04-2021 End: 10-16-2022 History SDOH Financial 4 [facility] Start: 03-17-2020 Education 19 [facility] Start: 1950 Sex Assigned At Male C [facility] Start: 08-21-2021 End: 05-12-2022 Exposure to SARS-CoV-2 (event) Not sure [facility] Start: 10-16-2022 History SDOH Social Connections Phone 5 [facility] Start: 10-16-2022 History SDOH Physica l Activity DPW 0 [facility] Start: 10-13-2022 End: 10-15-2022 History of Social function [facility] Start: 10-13-2022 End: 10-15-2022 Social connection and isolation panel [facility] Do you belong to any clubs or organizations such as caodaism groups, unions, fraRSVP Law or athletic groups, or school groups? Yes [facility] Are you now , , , , never or living with a partner? [facility] How often to you hav e a drink containing alcohol? Monthly or less [facility] How many standard dr inks containing alcohol do you have on a typical day? 1 or 2 [facility] How often do you hav e 6 or more drinks on 1 occasion? Never [facility] How hard is it for y ou to pay for the very basics like food, housing, medical care, and heating Not very hard [facility] Adult Depression Scr eening Assessment 0 [facility] Do you feel stress - tense, restless, nervous, or anxious, or unable to sleep at night because your mind is troubled all the time - these days [OSQ] Not at all [facility] (I/We) worried wheth er (my/our) food would run out before (I/we) got money to buy more. Never true [facility] In the past 12 month s, was there a time when you were not able to pay the mortgage or rent on time? No [facility] Start: 09-13-2018 Gender identity Identifies as male gender (finding) [facility] Start: 06-26-2019 Sexual orientation Heterosexual (lianna norman) [facility] Medical Equipment Procedure Code Equipment Code Equipment Origin al Text Equipment Identifier Dates Cement Simplex B one High Viscosity - [id number] Start: 12-25-2019 Graft Vasc 30cm 26mm [facility] [address] - [id number] Start: 11-17-2014 Goals Date Patient Goal Desired Activity /State Personal health goal Clinical Notes 12-08-2019 to 07-31-2023 Telephone Encounter - Sandhya Young LPN - 07/31/2023 9:32 AM ESTTelephone Encounter - Sandhya Young LPN - 07/31/2023 9:25 AM ESTTelephone Encounter - Divya Pickens LPN - 07/31/2023 8:44 AM EST Note Date & Type Note Facility 07-31-2023 Miscellaneous Notes Images from the original note were not included. Prior authorization approved Payer: [facility] [phone] [place] Case: [id number], Status: Approved, Coverage Starts on: 06/12/2023 12:00:00 AM, Coverage Ends on: 06/11/2024 12:00:00 AM. Questions? Contact . Approval Details Authorization number: 0 Authorized from June 12, 2023 to June 11, 2024 Electronic appeal: Not supported View History Medication Being Authorized tirzepatide (MOUNJARO) 2.5 mg/0.5 mL pen injector Inject 2.5 mg subcutaneously one time a week. Dispense: 2 mL Refills: 11 Start: 07/31/2023 End: 07/30/2024 Class: Normal Diagnoses: Controlled type 2 diabetes mellitus without complication, without long-term current use of insulin (HCC) This order has been released to its destination. To be filled at: [facility] [address] [place] [address] [address] [facility] [phone] [facility] notified. Electronic PA completed for mounjaro. documented in this encounter [facility] 07-31-2023 Miscellaneous Notes Looking for a replacement for Trulicity? documented in this encounter [facility] 05-22-2023 Miscellaneous Notes TC to patient who verbalized understanding of providers message below. No questions at this time. VESTA Abarca Cholesterol stable range. Hgba1c up again into prediabetic range: try to improve diet and exercise if able. 1/3 liver enzymes is elevated with normal liver function (normal bilirubin). Recommend recheck in 1 month for trend. CBC WNL except eosinophils elevated which often r/t allergies. Telephone on 05/22/23 HEPATIC FUNCTION PNL Thanks, Houston Shi PA-C documented in this encounter [facility] 05-09-2023 History of Presen t illness Narrative Last saw pcp: 03/09/23 Subjective: Patient presents to clinic c/o painful toenails. They state that the nails are especially painful with shoe gear and pressure. Patient states that nails left hallux are painful. Patient admits to being diabetic. No other pedal complaints at this time. Patient states no change in medications or medical history since last visit. Objective: Patient presents to clinic ambulating in diabetic shoe Vasc: DP and PT pulses are faintly palpable bilateral. CFT is less than 5 seconds bilateral. Skin temperature is warm to cool proximal to distal bilateral. There is no edema or varicosities noted. Neuro: Protective sensation is intact to the foot and toes when tested with the 5.07 SWM bilateral. Vibratory sensation is decreased at the hallux IPJ bilateral. The hallux is downgoing bilateral. Derm: Nails 1-5 b/l are painful, discolored-yellow, thick, crumbly, dystrophic and with subungal debris. Skin is of normal turgor, texture and hair growth is absent bilateral. There are no hyperkeratosis, ulcerations, scars, verruca or other lesions noted. Ortho: Muscle strength is 5/5 for all pedal groups tested. Ankle joint DF is decreased with the knee extended with no pain or crepitus noted. 1st MPJ ROM is decreased bilateral. Assessment: (B35.1) Onychomycosis (primary encounter diagnosis) (M79.675) Pain in toe of left foot (M79.674) Pain in toe of right foot (I73.9) PAD (peripheral artery disease) ([facility]) (E11.42) Diabetic polyneuropathy associated with type 2 diabetes mellitus ([facility]) Plan: Patient was seen and evaluated. Nails 1-5 bilateral were debrided in length and thickness. Patient was instructed on the continued importance of diabetic foot care along with proper diet and keeping their blood sugar under control to prevent complications. Patient is to RTC in 3-4 months. Isael Beatty DPM Patient presents with: Left Foot - Established Patient: nail care Right Foot - Established Patient: nail care AMB ROOMING INTAKE FLOWSHEET DATA documented in this encounter [facility] 05-09-2023 Instructions Isael Beatty - 05/09/2023 2:11 PM EST Diabetes Foot Care Instructions When you have diabetes, proper foot care is very important. Poor foot care may lead to amputation of a foot or leg. As a person with diabetes, you are more vulnerable to foot problems, because diabetes can damage your nerves and reduce blood flow to your feet. Here are some diabetes foot care tips to follow: Wash and Dry Your Feet Daily Use mild soaps Use warm water Pat your skin dry; do not rub. Thoroughly dry your feet. After washing, use lotion on your feet to prevent cracking. Do not put lotion between your toes. Examine Your Feet Each Day Check the tops and bottoms of your feet. Have someone else look at your feet if you cannot see them. Check for dry, cracked skin. Look for blisters, cuts, scratches, or other sores. Check for redness, increased warmth, or tenderness when touching any area of your feet. Check for ingrown toenails, corns, and calluses. If you get a blister or sore from your shoes, do not pop it. Apply a bandage and wear a different pair of shoes. Take Care of Your Toenails Cut toenails after bathing, when they are soft. Cut toenails straight across and smooth with a nail file. Avoid cutting into the corners of toes. Do not cut cuticles. If you have neuropathy (or decreased sensation in your feet) a anime artist should always cut your toenails. Be Careful When Exercising Walk and exercise in comfortable shoes. Do not exercise when you have open sores on your feet. Protect Your Feet With Shoes and Socks Never go barefoot. Always protect your feet by wearing shoes or hard-soled slippers or footwear. Avoid shoes with high heels and pointed toes. Avoid shoes that expose your toes or heels (such as open-toed shoes or sandals). These types of shoes increase your risk for injury and potential infections. Try on new footwear with the type of socks you usually wear. Do not wear new shoes for more than an hour at a time. Change your socks daily. Look and feel inside your shoes before putting them on to make sure there are no foreign objects or rough areas. Avoid tight socks. Wear natural-fiber socks (cotton, wool, or a cotton-wool blend). Wear special shoes if your health care provider recommends them. Wear shoes/boots that will protect your feet from various weather conditions (cold, moisture, etc.). Make sure your shoes fit properly. If you have neuropathy (nerve damage), you may not notice that your shoes are too tight. Perform the footwear test described below. Footwear Test Use this simple test to see if your shoes fit correctly: Stand on a piece of paper. (Make sure you are standing and not sitting, because your foot changes shape when you stand.) Trace the outline of your foot. Trace the outline of your shoe. Compare the tracings: Is the shoe too narrow? Is your foot crammed into the shoe? The shoe should be at least 1/2 inch longer than your longest toe and as wide as your foot. Proper Shoe Choices The following types of shoes are best for people with diabetes Closed toes and heels Leather uppers without a seam inside At least 1/2 inch extra space at the end of your longest toe Inside of shoe should be soft with no rough areas Outer sole should be made of stiff material Shoes should be at least as wide as your feet Tips for Foot Care in Diabetes Don't wait to treat a minor foot problem if you have diabetes. Follow your health care provider's guidelines and first aid guidelines. Report foot injuries and infections to your health care provider immediately. Check water temperature with your elbow, not your foot. Do not use a heating pad on your feet. Do not cross your legs. Do not self-treat your corns, calluses, or other foot problems. Go to your health care provider or anime artist to treat these conditions. documented in this encounter [facility] 05-02-2023 Instructions Martín Murillo MD - 05/02/2023 2:29 PM EST Images from the original note were not included. Bowel Preparation Instructions for: Miralax-Gatorade Preparations IF YOU DO NOT FOLLOW THESE DIRECTIONS, YOUR COLONOSCOPY WILL BE CANCELLED. Peters Instructions: Your bowel must be empty so that your doctor can clearly view your colon. Follow all of the instructions in this handout EXACTLY as they are written. Do NOT eat any solid food the ENTIRE day before your colonoscopy. Buy your bowel preparation at least 5 days before your colonoscopy. Four (4) Dulcolax laxative tablets containing 5mg of bisacodyl each (NOT Dulcolax stool softener) One (1) 8.3oz. bottle Miralax (238 grams) or generic equivalent 2 x 32oz. Bottles of Gatorade (NOT RED) Diabetic Patients: Use G2 (Gatorade 2) TRANSPORTATION on the Day of Your Exam A responsible adult MUST be present with you at Check In prior to your colonoscopy and REMAIN in the endoscopy area until you are discharged. You are NOT ALLOWED to drive, take a taxi or bus, or leave the Endoscopy Center ALONE. If you do not have a responsible mechanic welder truck driver (family member or friend) with you to take you home, your exam cannot be done with sedation and will be cancelled. Please bring a list of all of your current medications, including any Lrsl-wsp-Grkcrbm medications with you. Medications If you take insulin, diabetic medications or blood thinners such as Coumadin (warfarin), Plavix (clopidogrel), Ticlid (ticlopidine hydrochloride), Agrylin (anagrelide), Xarelto (Rivaroxaban), Pradaxa (Dabigatran), Eliquis (Apixaban), and Effient (Prasugrel). You MUST call the doctors who orders those medicines for instructions on altering the dosage before your colonoscopy. All other medications should be taken the day of the exam with a sip of water including ASPIRIN. Five (5) Days Before Your Colonoscopy Do NOT take medicines that stop diarrhea - such as Imodium, Kaopectate, or Pepto Bismol. Do NOT take fiber supplements - such as Metamucil, Citrucel, or Perdiem. Do NOT take products that contain iron - such as multi-vitamins (the label lists what is in the products). Three (3) Days Before Your Colonoscopy Do NOT eat high-fiber foods - such as popcorn, beans, seeds (flax, sunflower, quinoa), multigrain bread, nuts, salad/vegetables, or fresh and dried fruit. 1 Bowel Preparation Instructions for: Miralax-Gatorade Preparations One (1) Day Before Your Colonoscopy Only drink clear liquids the ENTIRE DAY before your colonoscopy. Do NOT eat any solid foods. Drink at least 8 ounces of clear liquids every hour after waking up. The clear liquids you can drink include: Clear Liquid (NO RED LIQUIDS) DO NOT DRINK Gatorade, Pedialyte or Powerade Clear broth or bouillon Coffee or tea (no milk or non-dairy creamer) Carbonated and non-carbonated soft drinks Armand-Aid or other fruit flavored drinks Strained fruit juices (no pulp) Jell-O, popsicles, hard candy Water Alcohol Milk or non-dairy creamers Noodles or vegetables in soup Juice with pulp Liquid you cannot see through Do not use tobacco/vaping products Mix 1/2 of Miralax bottle (119 grams) in each 32 ounces of Gatorade bottle until dissolved. Keep cool in the refrigerator. DO NOT ADD ICE. The bowel preparation solution will be consumed in two parts. Part 1 5:00 PM - Evening before your colonoscopy Take 4 Dulcolax tablets. 6 PM - Evening before your colonoscopy Drink 32 oz. of the mixed solution. Drink an 8 oz. glass of bowel preparation every 15 minutes for a total of 4 glasses. Fifteen (15) minutes later, drink an 8 oz. glass of of clear liquids every 15 minutes for a total of 2 glasses. You may continue to drink clear liquids till midnight. Part 2 On the day of your colonoscopy you may drink clear liquids up to (three) 3 hours prior to procedure. 4 1/2 hours before your colonoscopy Take another 32 oz. bottle of mixed solution. Drink an 8 oz. glass of bowel prep every 15 minutes for a total of 4 glasses. Fifteen (15) minutes later, drink an 8 oz. glass of clear liquids every 15 minutes for a total of 2 glasses. You may continue to drink clear liquids up to (three) 3 hours before your exam. 2 05/2019 documented in this encounter [facility] 05-02-2023 History of Presen t illness Narrative HISTORY AND PHYSICAL Alem Sheehan 1950 REFERRING PHYSICIAN: Roberto Carlos Mullen MD CHIEF COMPLAINT: Consult (Change in bowel habits, last colonoscopy 2015) HPI: The patient is a 73 year old male referred for endoscopy. Alem notes the following GI complaints: Alem denies abdominal pain.. Alem notes occasional diarrhea. Alem notes occasional constipation. Alem notes a change in bowel habits. Alem denies melena. Alem denies bright red blood per rectum. Alem denies hemorrhoids. The patient notes no history of upper GI complaints. Alem has undergone prior endoscopy. 2016 this was noted for only diverticulosis. No polyps The patient is being seen by me today at the request of Dr. Roberto Carlos Mullen MD for my opinion and advice regarding Change in bowel habits. 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 Diaphragmatic hernia without mention of obstruction or gangrene Esophagitis, unspecified Fatty liver Generalized anxiety disorder Anxiety, Generalized Heartburn 02/27/2017 History of aortic valve replacement 06/12/2014 History of transfusion Motion sickness Pt reports he gets Vertigo ~ once a year SIVAKUMAR (obstructive sleep apnea) Other and unspecified hyperlipidemia PMH - PAST MEDICAL HISTORY OF nodules in left lung Profound impairment, one eye, impairment level not further specified left Pulmonary embolism (HCC) 2020 Restless legs syndrome (RLS) Right shoulder pain Type II or unspecified type diabetes mellitus without mention of complication, not stated as uncontrolled 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ty 02/17/2017 Added automatically from request for surgery [id number] Umbilical hernia 2019 Unspecified asthma(493.90) Unspecified essential hypertension Unspecified sleep apnea Use CPAP nightly PAST SURGICAL HISTORY Procedure Laterality Date ARTHRP KNE CONDYLE&PLATU MEDIAL&LAT COMPARTMENTS Left 12/25/2019 ASCENDING AORTA GRAFT W/BYPASS W/CORON REC 2014 COLONOSCOPY FLX DX W/COLLJ SPEC WHEN PFRMD 02/02/2005 Colonoscopy-repeat in COLONOSCOPY FLX DX W/COLLJ SPEC WHEN PFRMD 04/04/2016 DIAGNOSTIC ARTHROSCOPY SHOULDER +- SYNOVIAL BX Right 01/17/2014 EGD TRANSORAL BIOPSY SINGLE/MULTIPLE 04/23/2009 EYE SURGERY HX Left Eye removed from trauma I&D ABSC SMPL OR SGL Right 07/23/2008 Groin KNEE ARTHROSCOPY Right 05/23/2014 NEUROPLASTY &/TRANSPOSITION ULNAR NERVE ELBOW Right 03/01/2017 PAST SURGICAL HISTORY OF Right 09/2022 shoulder RECONSTRUCTION ROTATOR CUFF AVULSION CHRONIC Right 01/17/2014 RPR UMBILICAL HRNA 5 YRS/> REDUCIBLE 04/08/2020 SHOULDER SURGERY HX Right 2020 Right reverse total shoulder arthroplasty, open biceps tenodesis VALVULOPLASTY - AORTIC VALVE 2014 WRIST SURGERY HX Left Mass removal Current Outpatient Medications Medication Sig metFORMIN (GLUCOPHAGE) 1,000 mg tablet Take 1 tablet by mouth two times a day with meals. atorvastatin (LIPITOR) 40 mg tablet Take 1 tablet by mouth daily at bedtime. For cholesterol. pramipexole (MIRAPEX) 0.25 mg tablet Take 1 tablet by mouth once daily. buPROPion XL (WELLBUTRIN XL) 150 mg 24 hr tablet Take 1 tablet by mouth once daily. blood sugar diagnostic (BLOOD GLUCOSE TEST) test strip Test blood sugar(s) 2 times daily. Dx: Type 2 DM - Controlled E11.9 Insulin: No losartan (COZAAR) 100 mg tablet Take 1 tablet by mouth once daily. amLODIPine (NORVASC) 10 mg tablet Take 1 tablet by mouth once daily. magnesium oxide (MAG-OX) 400 mg (241.3 mg magnesium) tablet Take 1 tablet by mouth once daily. carvedilol (COREG) 6.25 mg tablet Take 1 tablet by mouth twice daily. BREO ELLIPTA 200-25 mcg/dose inhaler Inhale 1 Inhalation as instructed once daily. dulaglutide (TRULICITY) 1.5 mg/0.5 mL pen injector Inject 1.5 mg subcutaneously one time a week. Inject once per week. Discard Pen After (Patient taking differently: Inject 1.5 mg subcutaneously one time a week. Inject once per week on Monday. Discard Pen After) amoxicillin (POLYMOX, AMOXIL) 500 mg capsule 4 capsules 1 hours prior to dental procedure. aspirin, enteric coated (ASPIRIN, ENTERIC COATED) 81 mg EC tablet Take 2 tablets by mouth once daily. albuterol (PROVENTIL) 2.5 mg /3 mL (0.083 %) nebulizer solution Use 2.5 mg via nebulizer. albuterol HFA (VENTOLIN HFA) 90 mcg/actuation inhaler Inhale 2 Puffs as instructed every 4 hours as needed for wheezing/shortness of breath. Cholecalciferol, Vitamin D3, 1,000 unit cap Take 1 capsule by mouth once daily. (Patient taking differently: Take 1,000 Units by mouth once daily. Takes 400 MG tablet by mouth daily) lancets (ONE TOUCH DELICA) 33 gauge misc Test blood sugar(s) 2 daily. Blood-Glucose Meter (ONETOUCH VERIO SYSTEM) [facility] Dispense One Kit - Verio Meter Kit. Test blood sugar twice daily. Dx: E11.9. Insulin-no. therapeutic multivitamin (THERA VITAMIN) tablet Take 1 tablet by mouth daily with breakfast. CPAP 10 at hs No current facility-administered medications for this visit. ALLERGIES: Seasonal Allergies, Erythromycin, Hctz [Amiloride-Hydrochlorothiazide], Oxycodone, and Tramadol PERSONAL HISTORY: Social History Tobacco Use Smoking status: Never Smokeless tobacco: Never Vaping Use Vaping Use: Never used Substance Use Topics Alcohol use: No Drug use: No FAMILY HISTORY: FAMILY HISTORY Problem Relation Age of Onset Asthma Mother Stroke Father blood clot other (Pulmonary embolism) Father Arthritis Sister Lupus DVT Brother Diabetes Brother Hypertension Brother Stroke Maternal Grandmother Heart Maternal Grandmother Heart Maternal Grandfather Heart Paternal Grandmother Stroke Paternal Grandmother Arthritis Daughter Sgrogren's Breast Cancer Maternal Aunt Cancer Maternal Aunt glioblastoma REVIEW OF SYMPTOMS: The review of systems data was entered by the nurse and reviewed by la Nursing Notes: Corrine MendozaTIN 05/02/2023 2:25 PM Signed REVIEW OF SYSTEMS: General: The patient denies fatigue, denies weight loss, denies weight gain, denies feeling hot, and denies feelings of cold. Eyes: The patient denies glaucoma, notes eye injury/surgery, does not wear glasses or contacts. Ear/Nose/Throat: The patient notes allergies, denies hayfever, denies ear infections, and denies bloody noses. Cardiovascular: The patient denies chest pain, notes heart disease, notes high blood pressure,denies cardiac stent, denies prior heart attack, denies irregular heart beat, denies high cholesterol, denies poor circulation, notes heart failure, other cardiac issues, denies claudication, denies cold feet, denies peripheral arterial stent. Respiratory: The patient denies tuberculosis, denies pneumonia, notes frequent cough, denies pulmonary embolism, denies shortness of breath, and denies coughing up blood, notes other lung problems. Gastrointestinal: The patient denies difficulty swallowing, denies acid reflux, denies ulcers, denies vomiting, denies jaundice/hepatitis, denies gallbladder problems, denies black or tarry stools, denies hemorrhoids, denies bleeding from rectum, notes diverticulitis, notes constipation, notes diarrhea, denies loss of stool control, and denies hernias. Kidney/Bladder: The patient notes kidney stones, notes urine infections, and denies bloody urine. Skin: The patient denies a history of skin cancer, denies bleeding/changing moles, and denies a history of skin rash. Neurologic: The patient notes a history of epilepsy/convulsions, denies headaches, notes head/spinal injuries, and denies stroke/TIA. Psychiatric: The patient denies psychiatric medications, notes depression, and denies voices, denies substance abuse. Endocrine: The patient denies thyroid disorders, notes diabetes, and denies hormonal problems. Hematologic: The patient denies a history of bruising, denies bleeding, and denies anemia, notes blood clots. Infections: The patient denies a history of measles and mumps, denies rheumatic fever, and denies sexually transmitted diseases. Musculoskeletal: The patient notes back pain/injury, notes back problems, denies sciatica, denies knee/foot trouble, denies arthritis, or denies gout. When was patient's last Mammogram screening? N/A Last Colonoscopy: 2015 Corrine Mendoza LPN PHYSICAL EXAMINATION: General: The patient is 73 year old male, well nourished, well hydrated in no acute distress. The patient is oriented to time, place, and person. VITALS: Blood pressure 98/62, pulse 96, temperature 36.8 C (98.2 F), height 188 cm (6' 2 ), weight 111.1 kg (245 lb), SpO2 95 %. Body mass index is 31.46 kg/m . HEENT: Normal cephalic, ataumatic, pupils are equally round, sclera are anicteric, mucous membranes are moist, oropharynx is clear. Neck has no masses, asymmetry or lymphadenopathy. Thyroid is unremarkable. Respiratory: Clear to auscultation and percussion. Normal respiratory excursion and pattern. Cardiac: Examination is regular rate and rhythm. Abdominal exam: Soft, nontender, with no palpable masses. No hepatosplenomegaly. No palpable hernias. Rectal exam: exam deferred Extremities: no clubbing, cyanosis or edema. No adenopathy. Other: LABORATORY VALUES: As Noted RADIOLOGIC STUDIES: As Noted Assessment IMPRESSION: Change in bowel habits PLAN: I plan to perform lower endoscopy. We discussed the risks and benefits of the planned endoscopy. I have informed the patient that complications can occur including failure to complete the endoscopy and perforation. The patient had the opportunity to ask questions concerning the planned endoscopy. My staff has also explained the procedure to the patient in understandable terms and has given the patient printed material concerning the procedure. The patient freely consents to surgery. I plan to use Miralax bowel preperation for endoscopy I plan for monitored anesthetic care. Diagnoses: (R19.4) Change in bowel habits My findings have been communicated to Dr. Roberto Carlos Mullen MD via shared medical record. This note will be forwarded to Dr. Roberto Carlos Mullen MD. Return to Clinic: The patient is instructed to follow-up with me 1 week post operatively. Martín Murillo III, MD documented in this encounter [facility] 05-02-2023 Nurse Note REVIEW OF SYSTEMS: General: The patient denies fatigue, denies weight loss, denies weight gain, denies feeling hot, and denies feelings of cold. Eyes: The patient denies glaucoma, notes eye injury/surgery, does not wear glasses or contacts. Ear/Nose/Throat: The patient notes allergies, denies hayfever, denies ear infections, and denies bloody noses. Cardiovascular: The patient denies chest pain, notes heart disease, notes high blood pressure,denies cardiac stent, denies prior heart attack, denies irregular heart beat, denies high cholesterol, denies poor circulation, notes heart failure, other cardiac issues, denies claudication, denies cold feet, denies peripheral arterial stent. Respiratory: The patient denies tuberculosis, denies pneumonia, notes frequent cough, denies pulmonary embolism, denies shortness of breath, and denies coughing up blood, notes other lung problems. Gastrointestinal: The patient denies difficulty swallowing, denies acid reflux, denies ulcers, denies vomiting, denies jaundice/hepatitis, denies gallbladder problems, denies black or tarry stools, denies hemorrhoids, denies bleeding from rectum, notes diverticulitis, notes constipation, notes diarrhea, denies loss of stool control, and denies hernias. Kidney/Bladder: The patient notes kidney stones, notes urine infections, and denies bloody urine. Skin: The patient denies a history of skin cancer, denies bleeding/changing moles, and denies a history of skin rash. Neurologic: The patient notes a history of epilepsy/convulsions, denies headaches, notes head/spinal injuries, and denies stroke/TIA. Psychiatric: The patient denies psychiatric medications, notes depression, and denies voices, denies substance abuse. Endocrine: The patient denies thyroid disorders, notes diabetes, and denies hormonal problems. Hematologic: The patient denies a history of bruising, denies bleeding, and denies anemia, notes blood clots. Infections: The patient denies a history of measles and mumps, denies rheumatic fever, and denies sexually transmitted diseases. Musculoskeletal: The patient notes back pain/injury, notes back problems, denies sciatica, denies knee/foot trouble, denies arthritis, or denies gout. When was patient's last Mammogram screening? N/A Last Colonoscopy: 2015 Corrine Mendoza LPN documented in this encounter [facility] 04-26-2023 History of Presen t illness Narrative Patient presents with: Follow Up HPI: Patient presents today for office visit for follow up. DM: Reports overall feeling well. Medication side effects: No. Home sugar check frequency/results:checking glucose daily been in the 130's-reports hard to get below 120 Hypoglycemic spells: No. Watching diet: No. Unexpected weight loss: No. Polyuria, polydipsia: No. Vision Changes: No. Foot lesions or numbness or pain: right foot last day or so has been numb. Sees podiatry and set up to go back soon. Wearing compression socks. Always wears shoes. Does have diabetic shoes. SIVAKUMAR: uses CPAP regularly. Sleeps well: Yes. Feels rested on awakening: No. Not a morning person and never has been. No daytime fatigue: naps during the day Snoring: No RLS is well controlled Sees Dr Feliz. Told to use albuterol more often. Told to exercise more. Looking at different places to exercise. Thinking about aqua-cise. Having issue though with bowels. Can have problem that with no notice bowels will move. This makes him hesitant to go swimming. No bloody or black stools. Has gotten worse over the last few months. No abd pain. Using mucinex lately for sinus. Having drainage. What he coughs up is clear. Low back pain and left hip pain in morning. Discussed doing PT exercises for this. He has them but not consistent with them. Has seen pain management. HTN: Patient is compliant with meds Yes Monitors bp at home: Yes. Denies side effects: Yes. Chest pain: No. Dyspnea: No. Edema: No. Palpitations: No. Syncope: No. Headache: No. Dizziness: No. Still seeing cardiology. Saw last in 2022. Still with some shoulder issues. Suggested it is still bothering him. Needs to see ortho. Reiterated to see him. Still using his inhalers. MEDICATIONS: Current Outpatient Medications Medication Sig metFORMIN (GLUCOPHAGE) 1,000 mg tablet Take 1 tablet by mouth two times a day with meals. atorvastatin (LIPITOR) 40 mg tablet Take 1 tablet by mouth daily at bedtime. For cholesterol. pramipexole (MIRAPEX) 0.25 mg tablet Take 1 tablet by mouth once daily. buPROPion XL (WELLBUTRIN XL) 150 mg 24 hr tablet Take 1 tablet by mouth once daily. blood sugar diagnostic (BLOOD GLUCOSE TEST) test strip Test blood sugar(s) 2 times daily. Dx: Type 2 DM - Controlled E11.9 Insulin: No losartan (COZAAR) 100 mg tablet Take 1 tablet by mouth once daily. amLODIPine (NORVASC) 10 mg tablet Take 1 tablet by mouth once daily. magnesium oxide (MAG-OX) 400 mg (241.3 mg magnesium) tablet Take 1 tablet by mouth once daily. carvedilol (COREG) 6.25 mg tablet Take 1 tablet by mouth twice daily. BREO ELLIPTA 200-25 mcg/dose inhaler Inhale 1 Inhalation as instructed once daily. dulaglutide (TRULICITY) 1.5 mg/0.5 mL pen injector Inject 1.5 mg subcutaneously one time a week. Inject once per week. Discard Pen After (Patient taking differently: Inject 1.5 mg subcutaneously one time a week. Inject once per week on Monday. Discard Pen After) amoxicillin (POLYMOX, AMOXIL) 500 mg capsule 4 capsules 1 hours prior to dental procedure. aspirin, enteric coated (ASPIRIN, ENTERIC COATED) 81 mg EC tablet Take 2 tablets by mouth once daily. albuterol (PROVENTIL) 2.5 mg /3 mL (0.083 %) nebulizer solution Use 2.5 mg via nebulizer. albuterol HFA (VENTOLIN HFA) 90 mcg/actuation inhaler Inhale 2 Puffs as instructed every 4 hours as needed for wheezing/shortness of breath. Cholecalciferol, Vitamin D3, 1,000 unit cap Take 1 capsule by mouth once daily. (Patient taking differently: Take 1,000 Units by mouth once daily. Takes 400 MG tablet by mouth daily) lancets (ONE TOUCH DELICA) 33 gauge misc Test blood sugar(s) 2 daily. Blood-Glucose Meter (ONETOUCH VERIO SYSTEM) misc Dispense One Kit - Verio Meter Kit. Test blood sugar twice daily. Dx: E11.9. Insulin-no. therapeutic multivitamin (THERA VITAMIN) tablet Take 1 tablet by mouth daily with breakfast. CPAP 10 at hs No current facility-administered medications for this visit. ALLERGIES: ALLERGIES Allergen Reactions Seasonal Allergies Other: See Comments SOB due to tree pollen, dog dander, weeds, cow dander,molds, pine pollen. 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 Diaphragmatic hernia without mention of obstruction or gangrene Esophagitis, unspecified Fatty liver Generalized anxiety disorder Anxiety, Generalized Heartburn 02/27/2017 History of aortic valve replacement 06/12/2014 History of transfusion Motion sickness Pt reports he gets Vertigo ~ once a year SIVAKUMAR (obstructive sleep apnea) Other and unspecified hyperlipidemia PMH - PAST MEDICAL HISTORY OF nodules in left lung Profound impairment, one eye, impairment level not further specified left Pulmonary embolism (HCC) 2020 Restless legs syndrome (RLS) Right shoulder pain Type II or unspecified type diabetes mellitus without mention of complication, not stated as uncontrolled 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ty 02/17/2017 Added automatically from request for surgery [id number] Umbilical hernia 2019 Unspecified asthma(493.90) Unspecified essential hypertension Unspecified sleep apnea Use CPAP nightly PAST SURGICAL HISTORY Procedure Laterality Date ARTHRP KNE CONDYLE&PLATU MEDIAL&LAT COMPARTMENTS Left 12/25/2019 ASCENDING AORTA GRAFT W/BYPASS W/CORON REC 2014 COLONOSCOPY FLX DX W/COLLJ SPEC WHEN PFRMD 02/02/2005 Colonoscopy-repeat in -2014 COLONOSCOPY FLX DX W/COLLJ SPEC WHEN PFRMD 04/04/2016 DIAGNOSTIC ARTHROSCOPY SHOULDER +- SYNOVIAL BX Right 01/17/2014 EGD TRANSORAL BIOPSY SINGLE/MULTIPLE 04/23/2009 EYE SURGERY HX Left Eye removed from trauma I&D ABSC SMPL OR SGL Right 07/23/2008 Groin KNEE ARTHROSCOPY Right 05/23/2014 NEUROPLASTY &/TRANSPOSITION ULNAR NERVE ELBOW Right 03/01/2017 RECONSTRUCTION ROTATOR CUFF AVULSION CHRONIC Right 01/17/2014 RPR UMBILICAL HRNA 5 YRS/> REDUCIBLE 04/08/2020 SHOULDER SURGERY HX Right 2020 Right reverse total shoulder arthroplasty, open biceps tenodesis VALVULOPLASTY - AORTIC VALVE 2014 WRIST SURGERY HX Left Mass removal FAMILY HISTORY Problem Relation Age of Onset Asthma Mother Stroke Father blood clot other (Pulmonary embolism) Father Arthritis Sister Lupus DVT Brother Diabetes Brother Hypertension Brother Stroke Maternal Grandmother Heart Maternal Grandmother Heart Maternal Grandfather Heart Paternal Grandmother Stroke Paternal Grandmother Arthritis Daughter Sgrogren's Breast Cancer Maternal Aunt Cancer Maternal Aunt glioblastoma Social History Tobacco Use Smoking status: Never Smokeless tobacco: Never Vaping Use Vaping Use: Never used Substance Use Topics Alcohol use: No Drug use: No Reviewed current medications, allergies, past medical history, surgical history, family history and social history today. REVIEW OF SYSTEMS All other reviewed and negative other than HPI. HEALTH MAINTENANCE: Reviewed health maintenance issues today and recommended the following in detail. Shingrix Vaccine(1 of 2) Never done RSV Vaccine(1 - 1-dose 60+ series) Never done DTaP,Tdap,Td Vaccine(2 - Td or Tdap) due on 07/22/2018 Dilated Retinal Exam -coming up. HbA1C due on 04/16/2023 LDL Cholesterol due on 05/19/2023 -Had discussion with patient regarding risks and benefits of prostate screening. Allowed them to decide if they wished to proceed with screening including STARR and PSA. VITALS: There were no vitals taken for this visit. Last 4 Encounter Wt Readings: Date: Wt: 03/23/2023 109.5 kg (241 lb 6.4 oz) 03/09/2023 108 kg (238 lb) 12/20/2022 102.1 kg (225 lb) 11/01/2022 99.8 kg (220 lb) PHYSICAL EXAMINATION: General appearance: Well appearing, alert, in no acute distress, well-hydrated, well nourished. Skin: Skin color, texture, turgor normal, no suspicious rashes or lesions Head: Normocephalic, no masses, lesions, tenderness or abnormalities Neck: Supple, no adenopathy; thyroid symmetric, normal size, no bruits Lungs: Lungs clear to auscultation. No wheezing, rhonchi, rales Heart: RRR, murmur unchanged. Abdomen: Normal abdominal exam, Abdomen soft, non-tender. Bowel sounds normal. No masses, organomegaly Extremities: No deformities, edema, skin discoloration, clubbing or cyanosis. Good capillary refill. Musculoskeletal: No joint swelling, deformity, or tenderness ASSESSMENT/PLAN: 1. Essential hypertension - ICD9: 401.9, ICD10: I10 (primary diagnosis) - Controlled - Continue current medications 2. Mixed hyperlipidemia - ICD9: 272.2, ICD10: E78.2 - Controlled - Counseled on healthy diet and regular exercise 3. Restless legs syndrome (RLS) - ICD9: 333.94, ICD10: G25.81 - stable. 4. History of aortic valve replacement - ICD9: V43.3, ICD10: Z95.2 - per cardiology 5. SIVAKUMAR on CPAP - ICD9: 327.23, ICD10: G47.33 - per pulmonary. 6. Moderate persistent asthma without complication - ICD9: 493.90, ICD10: J45.40 - stable. 7. Benign paroxysmal positional vertigo, unspecified laterality - ICD9: 386.11, ICD10: H81.10 - stable. 8. Controlled type 2 diabetes mellitus without complication, without long-term current use of insulin (HCC) - ICD9: 250.00, ICD10: E11.9 - follow labs. - CBC + DIFF - COMP METABOLIC PANEL - LIPID PANEL BASIC - HGB A1C 9. DDD (degenerative disc disease), lumbar - ICD9: 722.52, ICD10: M51.36 - stable. 10. Vitamin D deficiency - ICD9: 268.9, ICD10: E55.9 - VITAMIN D 25 HYDROXY 11. Bilateral carotid artery stenosis - ICD9: 433.10, 433.30, ICD10: I65.23 - US CAROTID ARTERIES [facility] 12. History of DVT (deep vein thrombosis) - ICD9: V12.51, ICD10: Z86.718 Anticoagulate if surgery or immobilized. 13. Elevated factor VIII level - ICD9: 790.92, ICD10: R79.1 14. Change in bowel habits - ICD9: 787.99, ICD10: R19.4 - CONSULT TO GENERAL SURGERY 15. Screening for prostate cancer - ICD9: V76.44, ICD10: Z12.5 - decides to hold on psa. Roberto Carlos Mullen MD documented in this encounter [facility] 03-30-2023 Note HNO ID: [id number] Author: Lane Vu PT Service: ? Author Type: Physical Therapist Type: Progress Notes Filed: 03/30/2023 11:25 AM Note Text: Episode Visit Count: 4 Therapist That Will Accept/Oversee The Plan Of Care: Lane Vu Start of Care Date: 03/02/23 Onset Date: 03/02/19 Plan of Care Certification Date: 03/02/23 Next Certification Due Date: 04/06/23 Patient Identified by Name and Date of : Yes REHABILITATION AND SPORTS THERAPY PHYSICAL THERAPY DISCONTINUANCE OF CARE PLAN OF CARE UPDATE: Assessment: Alem Sheehan is discontinued from Physical Therapy services due to goal achievement. Patient was seen for 4 visits from Start of Care Date: 03/02/23 to 03/30/2023 and treatment included: Therapeutic exercise. Goals updated 03/30 Goals for Episode of Care: created on 03/02/23 through 04/27/23 Independent in home exercises. - MET Pt will be able to sit for 1 hours without pain/symptoms - MET Stand / Walk 30 minutes without pain/symptoms. - MET Sleep through night without pain/symptoms. - MET Improve quadriceps flexibility to WNL for decreased pain in the LB with Walking - Not assessed Patient Goals: Wants to be able to walk more SUBJECTIVE: Things are better. Been doing the exercises and a pillow between the knees when laying on his side helps. Can now walk a mile each day now and this is much improved. Both the hip and back pain has gotten better. Did recently lift some heavy logs and this hurt the back. Feels 70-80% better so far. Still stiff in the mornings. Patient Goals: Improve symptoms Functional Limitations: lifting Prior Level of Function: Independent without limitations Intake Information: Prescription present Previous Treatment: Surgery , Physical Therapy , Injections Falls Interview: No positive findings with falls interview Pain: Pain Pain Level: 1 Pain Location: Low Back/Lumbar Spine- Midline PROMIS Scales Higher is Better 03/28/2023 03/11/2023 02/28/2023 Phys Func - Score - 35 (moderate dysfunction) - Phys Func - Percentile - 7 % - Self-Eff Symptom - Score 41 (Average) - 42 (Average) Self-Eff Symptom - Percentile 18 % - 21 % T-scores: mean of general population = 50. 5 points is clinically meaningfully difference Percentiles provide an indication of how the patient's score ranks in relation to the general population. Higher percentile rankings indicate better function/quality of life. 50th percentile is the average of the general population and indicates half of respondents had a worse score. OBJECTIVE MEASURES WITH LEVEL OF FUNCTION: Lumbar Spine AROM Lumbar Flexion: Normal Lumbar Extension: Minimal limitation Lumbar R Side-Bend: Normal Lumbar R Rotation: Normal (Feel discomfort on the L side of the back) Lumbar L Rotation: Normal LE AROM R LE AROM: WFL L LE AROM: WFL LE Strength Trunk Strength: RA strength 3/5 and does show some doming along the linea alba R LE Strength: Grossly 5/5 L LE Strength: Grossly 5/5 TREATMENT: Therapeutic Exercise: 1: All objective measures taken 2: Supine TA marches x 10 3: Supine TS opp arm/leg flexion x 10 4: Standing Paloff GTB x 10 each side Skilled Intervention: Patient was educated in proper exercise technique and purpose for exercises. Provided written instruction for home exercise program to facilitate proper performance and compliance. Billing Therapeutic Exercise Treatment Minutes: 39 Skilled Treatment Time Minutes (timed and untimed codes): 39 Total Session Time (minutes): 39 Session Start Time : 1042 Session Stop Time : 112[address] Lane Vu PT [facility] 03-30-2023 History of Presen t illness Narrative Episode Visit Count: 4 Therapist That Will Accept/Oversee The Plan Of Care: Lane Vu Start of Care Date: 03/02/23 Onset Date: 03/02/19 Plan of Care Certification Date: 03/02/23 Next Certification Due Date: 04/06/23 Patient Identified by Name and Date of : Yes REHABILITATION AND SPORTS THERAPY PHYSICAL THERAPY DISCONTINUANCE OF CARE PLAN OF CARE UPDATE: Assessment: Alem Sheehan is discontinued from Physical Therapy services due to goal achievement. Patient was seen for 4 visits from Start of Care Date: 03/02/23 to 03/30/2023 and treatment included: Therapeutic exercise. Goals updated 03/30 Goals for Episode of Care: created on 03/02/23 through 04/27/23 Independent in home exercises. - MET Pt will be able to sit for 1 hours without pain/symptoms - MET Stand / Walk 30 minutes without pain/symptoms. - MET Sleep through night without pain/symptoms. - MET Improve quadriceps flexibility to WNL for decreased pain in the LB with Walking - Not assessed Patient Goals: Wants to be able to walk more SUBJECTIVE: Things are better. Been doing the exercises and a pillow between the knees when laying on his side helps. Can now walk a mile each day now and this is much improved. Both the hip and back pain has gotten better. Did recently lift some heavy logs and this hurt the back. Feels 70-80% better so far. Still stiff in the mornings. Patient Goals: Improve symptoms Functional Limitations: lifting Prior Level of Function: Independent without limitations Intake Information: Prescription present Previous Treatment: Surgery , Physical Therapy , Injections Falls Interview: No positive findings with falls interview Pain: Pain Pain Level: 1 Pain Location: Low Back/Lumbar Spine- Midline PROMIS Scales Higher is Better 03/28/2023 03/11/2023 02/28/2023 Phys Func - Score - 35 (moderate dysfunction) - Phys Func - Percentile - 7 % - Self-Eff Symptom - Score 41 (Average) - 42 (Average) Self-Eff Symptom - Percentile 18 % - 21 % T-scores: mean of general population = 50. 5 points is clinically meaningfully difference Percentiles provide an indication of how the patient's score ranks in relation to the general population. Higher percentile rankings indicate better function/quality of life. 50th percentile is the average of the general population and indicates half of respondents had a worse score. OBJECTIVE MEASURES WITH LEVEL OF FUNCTION: Lumbar Spine AROM Lumbar Flexion: Normal Lumbar Extension: Minimal limitation Lumbar R Side-Bend: Normal Lumbar R Rotation: Normal (Feel discomfort on the L side of the back) Lumbar L Rotation: Normal LE AROM R LE AROM: WFL L LE AROM: WFL LE Strength Trunk Strength: RA strength 3/5 and does show some doming along the linea alba R LE Strength: Grossly 5/5 L LE Strength: Grossly 5/5 TREATMENT: Therapeutic Exercise: 1: All objective measures taken 2: Supine TA marches x 10 3: Supine TS opp arm/leg flexion x 10 4: Standing Paloff GTB x 10 each side Skilled Intervention: Patient was educated in proper exercise technique and purpose for exercises. Provided written instruction for home exercise program to facilitate proper performance and compliance. Billing Therapeutic Exercise Treatment Minutes: 39 Skilled Treatment Time Minutes (timed and untimed codes): 39 Total Session Time (minutes): 39 Session Start Time : 1042 Session Stop Time : 112[address] Vu PT documented in this encounter [facility] 03-23-2023 Note HNO ID: [id number] Author: Margo Schumacher APRN.[employer] Service: ? Author Type: Nurse Practitioner Type: Progress Notes Filed: 03/23/2023 12:06 PM Note Text: This note was created using [employer]. Subjective Alem Sheehan is a 73 year old male. 73 year old male with PMH DM, asthma, COPD, HTN, and ashtma presents for illness. Acute onset of symtpoms was 5 days ago +cough Productive at times, goes between yellow and clear. +wheezy +nasal congestion +sinus pressure +runny nose Denies SOB or dyspnea Denies abdominal pain Denies N/V/D COVID vaccine 03/17 Denies tobacco Has used Mucinex, Tylenol and decongestant. The history is provided by the patient. No manager risk was used. Cough This is a new problem. The current episode started more than 2 days ago. The problem occurs constantly. The problem has been gradually worsening. The cough is Productive of sputum. There has been no fever. Associated symptoms include rhinorrhea, shortness of breath and wheezing. Pertinent negatives include no chest pain, no chills, no sweats, no weight loss, no ear congestion, no ear pain, no headaches, no sore throat, no myalgias and no eye redness. He has tried decongestants for the symptoms. The treatment provided no relief. He is not a smoker. His past medical history is significant for COPD and asthma. His past medical history does not include bronchitis, pneumonia, bronchiectasis or emphysema. 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 Diaphragmatic hernia without mention of obstruction or gangrene Esophagitis, unspecified Fatty liver Generalized anxiety disorder Anxiety, Generalized Heartburn 02/27/2017 History of aortic valve replacement 06/12/2014 History of transfusion Motion sickness Pt reports he gets Vertigo ~ once a year SIVAKUMAR (obstructive sleep apnea) Other and unspecified hyperlipidemia PMH - PAST MEDICAL HISTORY OF nodules in left lung Profound impairment, one eye, impairment level not further specified left Pulmonary embolism (HCC) 2020 Restless legs syndrome (RLS) Right shoulder pain Type II or unspecified type diabetes mellitus without mention of complication, not stated as uncontrolled 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ty 02/17/2017 Added automatically from request for surgery [id number] Umbilical hernia 2019 Unspecified asthma(493.90) Unspecified essential hypertension Unspecified sleep apnea Use CPAP nightly PAST SURGICAL HISTORY Procedure Laterality Date ARTHRP KNE CONDYLEANDPLATU MEDIALANDLAT COMPARTMENTS Left 12/25/2019 ASCENDING AORTA GRAFT W/BYPASS W/CORON REC 2014 COLONOSCOPY FLX DX W/COLLJ SPEC WHEN PFRMD 02/02/2005 Colonoscopy-repeat in COLONOSCOPY FLX DX W/COLLJ SPEC WHEN PFRMD 04/04/2016 DIAGNOSTIC ARTHROSCOPY SHOULDER +- SYNOVIAL BX Right 01/17/2014 EGD TRANSORAL BIOPSY SINGLE/MULTIPLE 04/23/2009 EYE SURGERY HX Left Eye removed from trauma IANDD ABSC SMPL OR SGL Right 07/23/2008 Groin KNEE ARTHROSCOPY Right 05/23/2014 NEUROPLASTY AND/TRANSPOSITION ULNAR NERVE ELBOW Right 03/01/2017 RECONSTRUCTION ROTATOR CUFF AVULSION CHRONIC Right 01/17/2014 RPR UMBILICAL HRNA 5 YRS/> REDUCIBLE 04/08/2020 SHOULDER SURGERY HX Right 2020 Right reverse total shoulder arthroplasty, open biceps tenodesis VALVULOPLASTY - AORTIC VALVE 2014 WRIST SURGERY HX Left Mass removal ALLERGIES Seasonal Allergies, Erythromycin, Hctz [Amiloride-Hydrochlorothiazide], Oxycodone, and Tramadol MEDICATIONS albuterol (PROVENTIL) 2.5 mg /3 mL (0.083 %) nebulizer solution Use 2.5 mg via nebulizer. albuterol HFA (VENTOLIN HFA) 90 mcg/actuation inhaler Inhale 2 Puffs as instructed every 4 hours as needed for wheezing/shortness of breath. amLODIPine (NORVASC) 10 mg tablet Take 1 tablet by mouth once daily. amoxicillin (POLYMOX, AMOXIL) 500 mg capsule 4 capsules 1 hours prior to dental procedure. aspirin, enteric coated (ASPIRIN, ENTERIC COATED) 81 mg EC tablet Take 2 tablets by mouth once daily. atorvastatin (LIPITOR) 40 mg tablet Take 1 tablet by mouth daily at bedtime. For cholesterol. blood sugar diagnostic (BLOOD GLUCOSE TEST) test strip Test blood sugar(s) 2 times daily. Dx: Type 2 DM - Controlled E11.9 Insulin: No Blood-Glucose Meter (ONETOUCH VERIO SYSTEM) [facility] Dispense One Kit - Verio Meter Kit. Test blood sugar twice daily. Dx: E11.9. Insulin-no. BREO ELLIPTA 200-25 mcg/dose inhaler Inhale 1 Inhalation as instructed once daily. buPROPion XL (WELLBUTRIN XL) 150 mg 24 hr tablet Take 1 tablet by mouth once daily. carvedilol (COREG) 6.25 mg tablet Take 1 tablet by mouth twice daily. Cholecalciferol, Vitamin D3, 1,000 unit cap Take 1 capsule by mouth on (more content not included)... [facility] 03-14-2023 Note HNO ID: [id number] Author: Lane Vu PT Service: ? Author Type: Physical Therapist Type: Progress Notes Filed: 03/14/2023 11:30 AM Note Text: Episode Visit Count: 3 Therapist That Will Accept/Oversee The Plan Of Care: Lane Vu Start of Care Date: 03/02/23 Onset Date: 03/02/19 Plan of Care Certification Date: 03/02/23 Next Certification Due Date: 04/06/23 Patient Identified by Name and Date of : Yes REHABILITATION AND SPORTS THERAPY PHYSICAL THERAPY TREATMENT NOTE ASSESSMENT: Alem Sheehan tolerated the session with decreased symptoms. He demonstrated improvements in endurance with core strengthening. The patient will continue to benefit from ongoing skilled physical therapy . to progress toward set goals PLAN FOR NEXT VISIT: Consider giving Pallof's press for HEP SUBJECTIVE: Pt reports that his back is feeling pretty good. Pt is trying to work on his posture. Pt has been using recumbent bike at home, 10 minutes 2 times per day. Pt using pillow between knees and at side with sleeping. Pt stats that the lumbar towel roll is helping. Pain: Pain Pain Level: ( very slight pain ) Pain Location: Low Back/Lumbar Spine- Midline Post Treatment Pain Post Treatment Pain Level: Better Post Treatment Pain Location: Low Back/Lumbar Spine- Midline OBJECTIVE MEASURES WITH LEVEL OF FUNCTION: Increased TA activation with longer holds noted. TREATMENT: Therapeutic Exercise: 1: Seated iso abs 2x10 with 3-5 seconds 2: Seated iso abs with alt UE 2x10 B 3: Seated iso abs with alt marching 2x10 B 4: Seated iso abs alt UE with alt LE 2x10 B 5: Seated iso abs with push into physioball 2x10 6: Seated repeated lumbar flexion 1x10 7: seated iso abs with push into physioball with 10 second holds x10 8: Seated Pallof's press with GTB 2x10 each side Skilled Intervention: Patient was educated in proper exercise technique and purpose for exercises. Skilled judgment was provided in selection of appropriate interventions. Correct performance of therapeutic exercises was facilitated with verbal and visual cuing. Billing Therapeutic Exercise Treatment Minutes: 39 Skilled Treatment Time Minutes (timed and untimed codes): 39 Total Session Time (minutes): 39 Session Start Time : 1015 Session Stop Time : 1054 Carmela Hadley, THOMAS Vu, PT [facility] 03-14-2023 History of Presen t illness Narrative Episode Visit Count: 3 Therapist That Will Accept/Oversee The Plan Of Care: Lane Vu Start of Care Date: 03/02/23 Onset Date: 03/02/19 Plan of Care Certification Date: 03/02/23 Next Certification Due Date: 04/06/23 Patient Identified by Name and Date of : Yes REHABILITATION AND SPORTS THERAPY PHYSICAL THERAPY TREATMENT NOTE ASSESSMENT: Alem Sheehan tolerated the session with decreased symptoms. He demonstrated improvements in endurance with core strengthening. The patient will continue to benefit from ongoing skilled physical therapy . to progress toward set goals PLAN FOR NEXT VISIT: Consider giving Pallof's press for HEP SUBJECTIVE: Pt reports that his back is feeling pretty good. Pt is trying to work on his posture. Pt has been using recumbent bike at home, 10 minutes 2 times per day. Pt using pillow between knees and at side with sleeping. Pt stats that the lumbar towel roll is helping. Pain: Pain Pain Level: ( very slight pain ) Pain Location: Low Back/Lumbar Spine- Midline Post Treatment Pain Post Treatment Pain Level: Better Post Treatment Pain Location: Low Back/Lumbar Spine- Midline OBJECTIVE MEASURES WITH LEVEL OF FUNCTION: Increased TA activation with longer holds noted. TREATMENT: Therapeutic Exercise: 1: Seated iso abs 2x10 with 3-5 seconds 2: Seated iso abs with alt UE 2x10 B 3: Seated iso abs with alt marching 2x10 B 4: Seated iso abs alt UE with alt LE 2x10 B 5: Seated iso abs with push into physioball 2x10 6: Seated repeated lumbar flexion 1x10 7: seated iso abs with push into physioball with 10 second holds x10 8: Seated Pallof's press with GTB 2x10 each side Skilled Intervention: Patient was educated in proper exercise technique and purpose for exercises. Skilled judgment was provided in selection of appropriate interventions. Correct performance of therapeutic exercises was facilitated with verbal and visual cuing. Billing Therapeutic Exercise Treatment Minutes: 39 Skilled Treatment Time Minutes (timed and untimed codes): 39 Total Session Time (minutes): 39 Session Start Time : 1015 Session Stop Time : 1054 [address] PT documented in this encounter [facility] 03-09-2023 Note HNO ID: [id number] Author: Roberto Carlos Mullen MD Service: ? Author Type: Physician Type: Progress Notes Filed: 03/09/2023 11:26 AM Note Text: Patient presents with: swollen veins: Swollen Veins on both left and right calves. HPI: Patient presents today for office visit for enlarged veins on his calves. He wants to make sure they are ok. Not painful or warm. No redness. No leg swelling. Has previous hx of dvt and pe. Nothing really makes them better or worse. MEDICATIONS: Current Outpatient Medications Medication Sig pramipexole (MIRAPEX) 0.25 mg tablet Take 1 tablet by mouth once daily. buPROPion XL (WELLBUTRIN XL) 150 mg 24 hr tablet Take 1 tablet by mouth once daily. blood sugar diagnostic (BLOOD GLUCOSE TEST) test strip Test blood sugar(s) 2 times daily. Dx: Type 2 DM - Controlled E11.9 Insulin: No losartan (COZAAR) 100 mg tablet Take 1 tablet by mouth once daily. metFORMIN (GLUCOPHAGE) 1,000 mg tablet Take 1 tablet by mouth twice daily with meals. atorvastatin (LIPITOR) 40 mg tablet Take 1 tablet by mouth daily at bedtime. For cholesterol. amLODIPine (NORVASC) 10 mg tablet Take 1 tablet by mouth once daily. magnesium oxide (MAG-OX) 400 mg (241.3 mg magnesium) tablet Take 1 tablet by mouth once daily. carvedilol (COREG) 6.25 mg tablet Take 1 tablet by mouth twice daily. BREO ELLIPTA 200-25 mcg/dose inhaler Inhale 1 Inhalation as instructed once daily. dulaglutide (TRULICITY) 1.5 mg/0.5 mL pen injector Inject 1.5 mg subcutaneously one time a week. Inject once per week. Discard Pen After (Patient taking differently: Inject 1.5 mg subcutaneously one time a week. Inject once per week on Monday. Discard Pen After) amoxicillin (POLYMOX, AMOXIL) 500 mg capsule 4 capsules 1 hours prior to dental procedure. aspirin, enteric coated (ASPIRIN, ENTERIC COATED) 81 mg EC tablet Take 2 tablets by mouth once daily. albuterol (PROVENTIL) 2.5 mg /3 mL (0.083 %) nebulizer solution Use 2.5 mg via nebulizer. albuterol HFA (VENTOLIN HFA) 90 mcg/actuation inhaler Inhale 2 Puffs as instructed every 4 hours as needed for wheezing/shortness of breath. Cholecalciferol, Vitamin D3, 1,000 unit cap Take 1 capsule by mouth once daily. (Patient taking differently: Take 1,000 Units by mouth once daily. Takes 400 MG tablet by mouth daily) lancets (ONE TOUCH DELICA) 33 gauge [facility] Test blood sugar(s) 2 daily. Blood-Glucose Meter (ONETOUCH VERIO SYSTEM) [facility] Dispense One Kit - Verio Meter Kit. Test blood sugar twice daily. Dx: E11.9. Insulin-no. therapeutic multivitamin (THERA VITAMIN) tablet Take 1 tablet by mouth daily with breakfast. CPAP 10 at hs predniSONE (DELTASONE) 10 mg tablet 6 tabs po day 1, then 5 tabs day 2, 4 tabs day 3, 3 tabs day 4, 2 tabs day 5, 1 tab day 6. (Patient not taking: Reported on 01/20/2023) traZODone (DESYREL) 50 mg tablet Take 1 tablet by mouth daily at bedtime. prn Cholecalciferol, Vitamin D3, 25 mcg (1,000 unit) cap Take 1 capsule by mouth once daily. ondansetron (ZOFRAN) 4 mg tablet Take 1 tablet by mouth every 8 hours as needed. Current Facility-Administered Medications Medication Dose Route Frequency perflutren lipid microspheres 1.3 mL in NaCl (PF) 0.9% 10 mL injection (DEFINITY) INTRAVENOUS DIRECTED PRN sodium chloride 0.9 % (flush) 10 mL (BD POSIFLUSH) 10 mL INTRAVENOUS DIRECTED PRN ALLERGIES: ALLERGIES Allergen Reactions Seasonal Allergies Other: See Comments SOB due to tree pollen, dog dander, weeds, cow dander,molds, pine pollen. 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 Diaphragmatic hernia without mention of obstruction or gangrene Esophagitis, unspecified Fatty liver Generalized anxiety disorder Anxiety, Generalized Heartburn 02/27/2017 History of aortic valve replacement 06/12/2014 History of transfusion Motion sickness Pt reports he gets Vertigo ~ once a year SIVAKUMAR (obstructive sleep apnea) Other and unspecified hyperlipidemia PMH - PAST MEDICAL HISTORY OF nodules in left lung Profound impairment, one eye, impairment level not further specified left Pulmonary embolism (HCC) 2020 Restless legs syndrome (RLS) Right shoulder pain Type II or unspecified type diabetes mellitus without mention of complication, not stated as uncontrolled 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ty 02/17/2017 Added automatically from request for surgery [id number] Umbilical hernia 2019 Unspecified asthma(493.90) Unspecified essential hypertension Unspecified sleep apnea Use CPAP nightl (more content not included)... [facility] 03-06-2023 Note HNO ID: [id number] Author: Lane Vu, PT Service: ? Author Type: Physical Therapist Type: Progress Notes Filed: 03/06/2023 3:13 PM Note Text: Episode Visit Count: 2 Therapist That Will Accept/Oversee The Plan Of Care: Lane Vu Start of Care Date: 03/02/23 Onset Date: 03/02/19 Plan of Care Certification Date: 03/02/23 Next Certification Due Date: 04/06/23 Patient Identified by Name and Date of : Yes REHABILITATION AND SPORTS THERAPY PHYSICAL THERAPY TREATMENT NOTE ASSESSMENT: Alem Sheehan tolerated the session with fatigue. He demonstrated improvements in posture with use of lumbar towel roll to maintain neutral spine alignment. The patient will continue to benefit from ongoing skilled physical therapy to progress toward set goals. PLAN FOR NEXT VISIT: Continue with abdominal/core strenghtening in sitting SUBJECTIVE: Pt reports that his back is feeling better. Pt walked almost a mile with a little bit of pain at then end of the walk. Pt feels exercises would be easier if he could do them sitting as they aren't working well in the bed and getting up from the floor poses challenges. Pain: Pain Pain Location: Low Back/Lumbar Spine- Midline Description: Aching Post Treatment Pain Post Treatment Pain Level: 0 Post Treatment Pain Location: Low Back/Lumbar Spine- Midline OBJECTIVE MEASURES WITH LEVEL OF FUNCTION: Pt sitting to front of chair with slouched position prior to use of lumbar towel roll. TREATMENT: Therapeutic Exercise: 1: *Seated iso abs 2x10 with 3-5 seconds (with lumbar towel roll) 2: *Seated iso abs with alt UE 2x10 B (with lumbar towel roll) 3: *Seated iso abs with alt marching 2x10 B (with lumbar towel roll) 4: *Seated iso abs alt UE with alt LE 2x10 B (with lumbar towel roll) 5: Seated iso abs with push into physioball 2x10 (with lumbar towel roll) Skilled Intervention: Patient was educated in proper exercise technique and purpose for exercises. Reviewed and educated patient on additions/changes for home exercise program as above (*). Skilled judgment was provided in selection of appropriate interventions. Provided written instruction for home exercise program to facilitate proper performance and compliance. Correct performance of therapeutic exercises was facilitated with verbal and visual cuing. Self-Chcf Management: 1: Lumbar towel roll education Skilled Intervention: Skilled judgment in the selection of proper modification for activity of daily living/home management based on clinical presentation, deficits, and needs. Billing Therapeutic Exercise Treatment Minutes: 45 Skilled Treatment Time Minutes (timed and untimed codes): 45 Total Session Time (minutes): 45 Session Start Time : 1400 Session Stop Time : 1445 Carmela CeronTHOMAS kraus, PT [facility] 03-06-2023 History of Presen t illness Narrative Episode Visit Count: 2 Therapist That Will Accept/Oversee The Plan Of Care: Lane Vu Start of Care Date: 03/02/23 Onset Date: 03/02/19 Plan of Care Certification Date: 03/02/23 Next Certification Due Date: 04/06/23 Patient Identified by Name and Date of : Yes REHABILITATION AND SPORTS THERAPY PHYSICAL THERAPY TREATMENT NOTE ASSESSMENT: Alem Sheehan tolerated the session with fatigue. He demonstrated improvements in posture with use of lumbar towel roll to maintain neutral spine alignment. The patient will continue to benefit from ongoing skilled physical therapy to progress toward set goals. PLAN FOR NEXT VISIT: Continue with abdominal/core strenghtening in sitting SUBJECTIVE: Pt reports that his back is feeling better. Pt walked almost a mile with a little bit of pain at then end of the walk. Pt feels exercises would be easier if he could do them sitting as they aren't working well in the bed and getting up from the floor poses challenges. Pain: Pain Pain Location: Low Back/Lumbar Spine- Midline Description: Aching Post Treatment Pain Post Treatment Pain Level: 0 Post Treatment Pain Location: Low Back/Lumbar Spine- Midline OBJECTIVE MEASURES WITH LEVEL OF FUNCTION: Pt sitting to front of chair with slouched position prior to use of lumbar towel roll. TREATMENT: Therapeutic Exercise: 1: *Seated iso abs 2x10 with 3-5 seconds (with lumbar towel roll) 2: *Seated iso abs with alt UE 2x10 B (with lumbar towel roll) 3: *Seated iso abs with alt marching 2x10 B (with lumbar towel roll) 4: *Seated iso abs alt UE with alt LE 2x10 B (with lumbar towel roll) 5: Seated iso abs with push into physioball 2x10 (with lumbar towel roll) Skilled Intervention: Patient was educated in proper exercise technique and purpose for exercises. Reviewed and educated patient on additions/changes for home exercise program as above (*). Skilled judgment was provided in selection of appropriate interventions. Provided written instruction for home exercise program to facilitate proper performance and compliance. Correct performance of therapeutic exercises was facilitated with verbal and visual cuing. Self-Chcf Management: 1: Lumbar towel roll education Skilled Intervention: Skilled judgment in the selection of proper modification for activity of daily living/home management based on clinical presentation, deficits, and needs. Billing Therapeutic Exercise Treatment Minutes: 45 Skilled Treatment Time Minutes (timed and untimed codes): 45 Total Session Time (minutes): 45 Session Start Time : 1400 Session Stop Time : 1445 THOMAS [place] PT documented in this encounter [facility] 03-02-2023 Note HNO ID: [id number] Author: Lane Vu PT Service: ? Author Type: Physical Therapist Type: Progress Notes Filed: 03/02/2023 1:25 PM Note Text: Episode Visit Count: 1 Therapist That Will Accept/Oversee The Plan Of Care: Lane Vu Start of Care Date: 03/02/23 Onset Date: 03/02/19 Plan of Care Certification Date: 03/02/23 Next Certification Due Date: 04/06/23 Patient Identified by Name and Date of : Yes REHABILITATION AND SPORTS THERAPY PHYSICAL THERAPY EVALUATION PLAN OF CARE: Assessment: Alem Sheehan presents with chief complaint of LBP and bilat hip pain that interferes with lifting, walking, standing . He presents with impairments in ADL's, independence in exercise, overall function, and strength. PROMIS? (Patient-Reported Outcomes Measurement Information System) scores were reviewed and physical function domain identified as a rehabilitation concern. Prognosis for therapy is Good due to: current objective clinical presentation . Pain with prolonged positions may improve with a lumbar stability program. He will benefit from skilled therapy services to meet the goals established for this plan of care as noted below. Classification Low Back Pain Subgroup Classification: Core stabilization subgroup: recommended visits 10. Specific Exercies Subgroup Classification based on: directional preference, peripheralization, centralization Core Stabilization Subgroup Classification based on: (Pain with prolonged positions) Goals for Episode of Care: created on 03/02/23 through 04/27/23 Independent in home exercises. Pt will be able to sit for 1 hours without pain/symptoms Stand / Walk 30 minutes without pain/symptoms. Sleep through night without pain/symptoms. Improve quadriceps flexibility to WNL for decreased pain in the LB with walking Patient Goals: Wants to be able to walk more Planned Interventions, Frequency, and Duration: Current Frequency: 1x/week Duration: 4 weeks Total Number of Visits Planned: 4 Planned Treatment Interventions: Therapeutic exercise (38666), Neuromuscular re-education (84763), Manual therapy (41309), Therapeutic activities (66635), Self-mcc management (33009), Patient/Family/Caregiver Education PLAN FOR NEXT VISIT: Abdominal strengthening. Patient demonstrates good understanding of plan of care and treatment. The above goals and plan of care were discussed and agreed upon by patient/family. SUBJECTIVE: Pain in the back and L hip and sometimes the R hip. Walking on hard surfaces and bouncing around in the jeep. Lifting things bothers it. Wears tennis shoes at times. Wears sketchers which are a year old. The doctors think the hip pain is nerve. Had injections in the hip which did nothing. Sitting for too can affect both the back and hip as well. No surgeries on the back. Patient Goals: Wants to be able to walk more Functional Limitations: lifting, walking, standing Prior Level of Function: Independent without limitations Relevant History Employment: Retired Intake Information: Prescription present Previous Treatment: Surgery , Physical Therapy , Injections Red Flags Vertebral Fracture Red Flags: Age >70 Vertebral Fracture Clinical Reasoning: Proceed with caution due to the above (1-2) risk factors Abdominal Aortic Aneurysm Red Flags: Age >60 Abdominal Aortic Aneurysm Clinical Reasoning: Proceed with caution Cancer Red Flags: Age >50 or <20 Cancer Clinical Reasoning: Proceed with caution Infection Clinical Reasoning: No identified risk factors. Red Flags - Cervical Cancer Red Flags: Age >50 or <20 Cancer Clinical Reasoning: Proceed with caution Infection Clinical Reasoning: No identified risk factors. Pain: Pain Pain Location: Low Back/Lumbar Spine- Midline Description: Aching PROMIS Scales Higher is Better 02/28/2023 02/13/2023 10/23/2022 Phys Func - Score - 37 (moderate dysfunction) 35 (moderate dysfunction) Phys Func - Percentile - 10 % 7 % Self-Eff Symptom - Score 42 (Average) - 44 (Average) Self-Eff Symptom - Percentile 21 % - 27 % T-scores: mean of general population = 50. 5 points is clinically meaningfully difference Percentiles provide an indication of how the patient's score ranks in relation to the general population. Higher percentile rankings indicate better function/quality of life. 50th percentile is the average of the general population and indicates half of respondents had a worse score. OBJECTIVE MEASURES WITH LEVEL OF FUNCTION: Lumbar Spine AROM Lumbar Flexion: Normal Lumbar Extension: Moderate limitation, End range pain Lumbar R Side-Bend: Pain during movement, Normal Lumbar L Side-Bend: Normal Lumbar R Rotation: Normal Lumbar L Rotation: Normal LE AROM Tested?: Yes LE AROM R LE AROM: WNL L LE AROM: WNL LE Flexibility Flexibility: Hip Flexor Flexibility, Quadriceps Flexibility R Hip Flexor Flexibility: WNL L Hip Flexor Flexibility: WNL (more content not included)... [facility] 03-02-2023 History of Presen t illness Narrative Episode Visit Count: 1 Therapist That Will Accept/Oversee The Plan Of Care: Lane Vu Start of Care Date: 03/02/23 Onset Date: 03/02/19 Plan of Care Certification Date: 03/02/23 Next Certification Due Date: 04/06/23 Patient Identified by Name and Date of : Yes REHABILITATION AND SPORTS THERAPY PHYSICAL THERAPY EVALUATION PLAN OF CARE: Assessment: Alem Sheehan presents with chief complaint of LBP and bilat hip pain that interferes with lifting, walking, standing . He presents with impairments in ADL's, independence in exercise, overall function, and strength. PROMIS (Patient-Reported Outcomes Measurement Information System) scores were reviewed and physical function domain identified as a rehabilitation concern. Prognosis for therapy is Good due to: current objective clinical presentation . Pain with prolonged positions may improve with a lumbar stability program. He will benefit from skilled therapy services to meet the goals established for this plan of care as noted below. Classification Low Back Pain Subgroup Classification: Core stabilization subgroup: recommended visits 10. Specific Exercies Subgroup Classification based on: directional preference, peripheralization, centralization Core Stabilization Subgroup Classification based on: (Pain with prolonged positions) Goals for Episode of Care: created on 03/02/23 through 04/27/23 Independent in home exercises. Pt will be able to sit for 1 hours without pain/symptoms Stand / Walk 30 minutes without pain/symptoms. Sleep through night without pain/symptoms. Improve quadriceps flexibility to WNL for decreased pain in the LB with walking Patient Goals: Wants to be able to walk more Planned Interventions, Frequency, and Duration: Current Frequency: 1x/week Duration: 4 weeks Total Number of Visits Planned: 4 Planned Treatment Interventions: Therapeutic exercise (53492), Neuromuscular re-education (37992), Manual therapy (56172), Therapeutic activities (29555), Self-mcc management (63427), Patient/Family/Caregiver Education PLAN FOR NEXT VISIT: Abdominal strengthening. Patient demonstrates good understanding of plan of care and treatment. The above goals and plan of care were discussed and agreed upon by patient/family. SUBJECTIVE: Pain in the back and L hip and sometimes the R hip. Walking on hard surfaces and bouncing around in the jeep. Lifting things bothers it. Wears tennis shoes at times. Wears sketchers which are a year old. The doctors think the hip pain is nerve. Had injections in the hip which did nothing. Sitting for too can affect both the back and hip as well. No surgeries on the back. Patient Goals: Wants to be able to walk more Functional Limitations: lifting, walking, standing Prior Level of Function: Independent without limitations Relevant History Employment: Retired Intake Information: Prescription present Previous Treatment: Surgery , Physical Therapy , Injections Red Flags Vertebral Fracture Red Flags: Age >70 Vertebral Fracture Clinical Reasoning: Proceed with caution due to the above (1-2) risk factors Abdominal Aortic Aneurysm Red Flags: Age >60 Abdominal Aortic Aneurysm Clinical Reasoning: Proceed with caution Cancer Red Flags: Age >50 or <20 Cancer Clinical Reasoning: Proceed with caution Infection Clinical Reasoning: No identified risk factors. Red Flags - Cervical Cancer Red Flags: Age >50 or <20 Cancer Clinical Reasoning: Proceed with caution Infection Clinical Reasoning: No identified risk factors. Pain: Pain Pain Location: Low Back/Lumbar Spine- Midline Description: Aching PROMIS Scales Higher is Better 02/28/2023 02/13/2023 10/23/2022 Phys Func - Score - 37 (moderate dysfunction) 35 (moderate dysfunction) Phys Func - Percentile - 10 % 7 % Self-Eff Symptom - Score 42 (Average) - 44 (Average) Self-Eff Symptom - Percentile 21 % - 27 % T-scores: mean of general population = 50. 5 points is clinically meaningfully difference Percentiles provide an indication of how the patient's score ranks in relation to the general population. Higher percentile rankings indicate better function/quality of life. 50th percentile is the average of the general population and indicates half of respondents had a worse score. OBJECTIVE MEASURES WITH LEVEL OF FUNCTION: Lumbar Spine AROM Lumbar Flexion: Normal Lumbar Extension: Moderate limitation, End range pain Lumbar R Side-Bend: Pain during movement, Normal Lumbar L Side-Bend: Normal Lumbar R Rotation: Normal Lumbar L Rotation: Normal LE AROM Tested?: Yes LE AROM R LE AROM: WNL L LE AROM: WNL LE Flexibility Flexibility: Hip Flexor Flexibility, Quadriceps Flexibility R Hip Flexor Flexibility: WNL L Hip Flexor Flexibility: WNL R Quadriceps Flexibility: Tight L Quadriceps Flexibility: Tight LE Strength Trunk Strength: Unable to maintain 60 mmHg with leg movements Education: Education Learning Preferences: Demonstration, Explanation, Performance, Printed Materials Barriers: None Learning/educational needs: Home exercise program, Plan of Care Education Provided: Yes, see treatment interventions for education provided Education Provided To: Patient Education Mode/Type: Demonstration, Explanation/Discussion, Literature/Printed Materials, Performance Response to Education/Teach Back: States/Identifies, Return Demonstration TREATMENT: PT Treatment Interventions: Therapeutic Exercise Evaluation Therapeutic Exercise: 1: Discussed therapy goals, exam findings, purpose of the HEP. 2: Prone quad stretch 2 x 30 sec with strap 3: Hooklying core bracing stabilizer 60 mmHg x 10 4: Hooklying core bracing stabilizer 60 mmHg with marching x 10 each side x 2 sets Skilled Intervention: Patient was educated in proper exercise technique and purpose for exercises. Provided written instruction for home exercise program to facilitate proper performance and compliance. Correct performance of therapeutic exercises was facilitated with verbal and visual cuing. Billing * Evaluation Low Complexity: 1 Unit Therapeutic Exercise Treatment Minutes: 24 Skilled Treatment Time Minutes (timed and untimed codes): 48 Total Session Time (minutes): 48 Session Start Time : 1212 Session Stop Time : 1300 Lane Vu PT documented in this encounter [facility] 03-01-2023 Miscellaneous Notes Results sent via Parachute message at this time PT order signed off Please review results with patient Dr. Beyer reviewed patient's XR Lumbar Spine XR Lumbar Spine Shows: Spondylosis; grade 1 spondylolisthesis at L5, no significant changes since previous imaging. Advanced degenerative disc changes at lumbosacral junction; Dr. Beyer notes nothing acute Dr. Beyer recommends patient to participate in 4-6 weeks of physical therapy. If no improvement after 6 weeks of physical therapy, the next step would be a MRI of the Lumbar Spine. Please note, most insurances will require at least 6 weeks of conservative treatment, such as physical therapy, prior to approving a MRI. Order for physical therapy pended to provider at this time documented in this encounter [facility] 02-20-2023 Note HNO ID: [id number] Author: Raquel Mays RT(R) Service: ? Author Type: Technologist Type: Progress Notes Filed: 02/20/2023 9:42 AM Note Text: Radiology Service Progress Note PATIENT NAME: Alem Sheehan DATE OF SERVICE: February 20, 2023 TIME: 9:42 AM PATIENT IDENTITY VERIFICATION COMPLETED USING TWO (2) IDENTIFIERS: Name and Date of confirmed by patient verbally. FALL SCREENING: Has the patient had 2 falls in the last year or 1 fall with injury or currently using an Ambulatory Assistive Device (Walker, Cane, Wheelchair, Crutches, etc.)? No PATIENT GENDER DATA: Male PATIENT RELEVANT IMPLANT DATA REVIEWED: Not Applicable RADIOLOGY DEPARTMENT: Biopsy and General X-ray: Exam(s) Completed: Spine X-Ray(s): Lumbar AP / LAT / L5-S1 PERIPHERAL IV DATA: Not applicable SIGNED BY: RT Zach(R) February 20, 2023 9:42 AM [facility] 02-20-2023 History of Presen t illness Narrative [facility] Date: February 20, 2023 - 8:41 AM Chief Complaint: lower back pain SUBJECTIVE: Mr. Sheehan presents to the [facility] for a follow up appointment regarding chronic lower back pain. He states that since the last visit symptoms have been persistent. The pain is located in the bilateral lumbar region and radiates to left gluteal and lateral hip area . // The pain is described as aching, stiffness, and tightness and is rated as 4 on a scale of 0-10. The patient Denies numbness and tingling. Symptoms interfere with physical activity, walking, cooking, household cleaning, lifting, and social activities. The pain is exacerbated by standing or walking on a hard floor. The pain is mitigated by relaxation and positioning. REVIEW OF SYSTEMS: Constitutional: (-) Fever (-) Night Sweats (-) Weight Gain (-) Weight Loss (+) Fatigue Cardiovascular: (-) Chest Pain (-) Palpitations (-) Lightheadedness (-) Swelling of Ankles (+) Hx Heart Surgery Respiratory: (-) Shortness of Breath (+) Cough (-) Wheezing (-) Snoring Gastrointestinal: (-) Incontinence (-) Abdominal Pain (+) Diarrhea (-) Constipation (-) Nausea/Vomiting (-) Heart Burn Endocrine: (-) Thyroid Disorder (+) Diabetes Hematologic: (+) Prolonged Bleeding (+) Easy Bruising Genitourinary: (-) Incontinence (-) Frequency (-) Urinary Urgency Skin: (-) Rashes (-) Itching (-) Other Lesions Neurologic: (-) Headache (-) Double Vision (-) Confusion (-) Paralysis Psychiatric: (-) Depression (-) Anxiety (-) Delusions (-) Hallucinations (-) Personal History of Alcohol or Substance Abuse (-) Family History of Alcohol or Substance Abuse 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 Diaphragmatic hernia without mention of obstruction or gangrene Esophagitis, unspecified Fatty liver Generalized anxiety disorder Anxiety, Generalized Heartburn 02/27/2017 History of aortic valve replacement 06/12/2014 History of transfusion Motion sickness Pt reports he gets Vertigo ~ once a year SIVAKUMAR (obstructive sleep apnea) Other and unspecified hyperlipidemia PMH - PAST MEDICAL HISTORY OF nodules in left lung Profound impairment, one eye, impairment level not further specified left Pulmonary embolism (HCC) 2020 Restless legs syndrome (RLS) Right shoulder pain Type II or unspecified type diabetes mellitus without mention of complication, not stated as uncontrolled 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ty 02/17/2017 Added automatically from request for surgery [id number] Umbilical hernia 2019 Unspecified asthma(493.90) Unspecified essential hypertension Unspecified sleep apnea Use CPAP nightly PAST SURGICAL HISTORY Procedure Laterality Date ARTHRP KNE CONDYLE&PLATU MEDIAL&LAT COMPARTMENTS Left 12/25/2019 ASCENDING AORTA GRAFT W/BYPASS W/CORON REC 2014 COLONOSCOPY FLX DX W/COLLJ SPEC WHEN PFRMD 02/02/2005 Colonoscopy-repeat in COLONOSCOPY FLX DX W/COLLJ SPEC WHEN PFRMD 04/04/2016 DIAGNOSTIC ARTHROSCOPY SHOULDER +- SYNOVIAL BX Right 01/17/2014 EGD TRANSORAL BIOPSY SINGLE/MULTIPLE 04/23/2009 EYE SURGERY HX Left Eye removed from trauma I&D ABSC SMPL OR SGL Right 07/23/2008 Groin KNEE ARTHROSCOPY Right 05/23/2014 NEUROPLASTY &/TRANSPOSITION ULNAR NERVE ELBOW Right 03/01/2017 RECONSTRUCTION ROTATOR CUFF AVULSION CHRONIC Right 01/17/2014 RPR UMBILICAL HRNA 5 YRS/> REDUCIBLE 04/08/2020 SHOULDER SURGERY HX Right 2020 Right reverse total shoulder arthroplasty, open biceps tenodesis VALVULOPLASTY - AORTIC VALVE 2014 WRIST SURGERY HX Left Mass removal ALLERGIES Allergen Reactions Seasonal Allergies Other: See Comments SOB due to tree pollen, dog dander, weeds, cow dander,molds, pine pollen. Erythromycin Diarrhea Hctz [Amiloride-Hyd* Other: See Comments Hypercalcemia Oxycodone GI Upset Plus not particularly effective with decreasing pain Tramadol GI Upset Current Outpatient Medications Medication Sig predniSONE (DELTASONE) 10 mg tablet 6 tabs po day 1, then 5 tabs day 2, 4 tabs day 3, 3 tabs day 4, 2 tabs day 5, 1 tab day 6. (Patient not taking: Reported on 01/20/2023) buPROPion XL (WELLBUTRIN XL) 150 mg 24 hr tablet Take 1 tablet by mouth once daily. blood sugar diagnostic (BLOOD GLUCOSE TEST) test strip Test blood sugar(s) 2 times daily. Dx: Type 2 DM - Controlled E11.9 Insulin: No traZODone (DESYREL) 50 mg tablet Take 1 tablet by mouth daily at bedtime. prn losartan (COZAAR) 100 mg tablet Take 1 tablet by mouth once daily. metFORMIN (GLUCOPHAGE) 1,000 mg tablet Take 1 tablet by mouth twice daily with meals. atorvastatin (LIPITOR) 40 mg tablet Take 1 tablet by mouth daily at bedtime. For cholesterol. amLODIPine (NORVASC) 10 mg tablet Take 1 tablet by mouth once daily. magnesium oxide (MAG-OX) 400 mg (241.3 mg magnesium) tablet Take 1 tablet by mouth once daily. carvedilol (COREG) 6.25 mg tablet Take 1 tablet by mouth twice daily. BREO ELLIPTA 200-25 mcg/dose inhaler Inhale 1 Inhalation as instructed once daily. dulaglutide (TRULICITY) 1.5 mg/0.5 mL pen injector Inject 1.5 mg subcutaneously one time a week. Inject once per week. Discard Pen After (Patient taking differently: Inject 1.5 mg subcutaneously one time a week. Inject once per week on Monday. Discard Pen After) amoxicillin (POLYMOX, AMOXIL) 500 mg capsule 4 capsules 1 hours prior to dental procedure. Cholecalciferol, Vitamin D3, 25 mcg (1,000 unit) cap Take 1 capsule by mouth once daily. aspirin, enteric coated (ASPIRIN, ENTERIC COATED) 81 mg EC tablet Take 2 tablets by mouth once daily. albuterol (PROVENTIL) 2.5 mg /3 mL (0.083 %) nebulizer solution Use 2.5 mg via nebulizer. albuterol HFA (VENTOLIN HFA) 90 mcg/actuation inhaler Inhale 2 Puffs as instructed every 4 hours as needed for wheezing/shortness of breath. ondansetron (ZOFRAN) 4 mg tablet Take 1 tablet by mouth every 8 hours as needed. pramipexole (MIRAPEX) 0.25 mg tablet Take 1 tablet by mouth once daily. Cholecalciferol, Vitamin D3, 1,000 unit cap Take 1 capsule by mouth once daily. (Patient taking differently: Take 1,000 Units by mouth once daily. Takes 400 MG tablet by mouth daily) lancets (ONE TOUCH DELICA) 33 gauge misc Test blood sugar(s) 2 daily. Blood-Glucose Meter (ONETOUCH VERIO SYSTEM) misc Dispense One Kit - Verio Meter Kit. Test blood sugar twice daily. Dx: E11.9. Insulin-no. therapeutic multivitamin (THERA VITAMIN) tablet Take 1 tablet by mouth daily with breakfast. CPAP 10 at hs Current Facility-Administered Medications Medication Dose Route Frequency perflutren lipid microspheres 1.3 mL in NaCl (PF) 0.9% 10 mL injection (DEFINITY) INTRAVENOUS DIRECTED PRN sodium chloride 0.9 % (flush) 10 mL (BD POSIFLUSH) 10 mL INTRAVENOUS DIRECTED PRN I have reviewed the nurses notes and I am aware of the family/social history. Since the last evaluation the medical history has not changed. PDMP website checked and validated. All prescriptions have been APPROPRIATELY filled. No suspicious activity was identified. 02/20/2023 by Ezequiel Beyer MD Narcotic Agreement reviewed and signed?: N/A on February 20, 2023 Urine Panel: No results found for: UQCANN , UQBNZL , CBA8ONM , UQAMPH , UQMAMP , UQBUPRE , UQNORBUP , UQMTHD , UQEDDP , UQTRAM , UQDTRM , UQFNTL , UQNFTL , UQCODE , UQMORP , UQDCDN , UQHCOD , UQOXYC , UQHMOR , UQOXYM , UQCREA , UQPH , UQSPGR , UQOXID , UQSPQ The pain panel was N/A PHYSICAL EXAMINATION: Performed in conjunction with observation. The patient was alert and oriented x3. The patient was in no acute distress. Lungs: Clear, negative for dyspnea or distress. CVR: Regular Rate. Negative for SOB or peripheral edema. Neck: Supple. The range of motion was intact. Back: Range of motion of the trunk was limited. Bilateral lumbosacral tenderness worse on the left side. SLR: Negative Facet Loading: Positive/equivocal with axial loading and extension. SI joint: Positive left PSIS tenderness. Negative sacral thrust. Extremities: no reported edema or erythema. Motor: Negative focal deficits Gait: Within normal limits ASSESSMENT: Lumbar spondylosis (primary encounter diagnosis) Ddd (degenerative disc disease), lumbar PLAN: Prior available imaging studies were reviewed. Findings were discussed. Injection history was reviewed. Medication use and compliance were reviewed. 1. Prior imaging studies reviewed. He does have grade 1 spondylolisthesis at L5 and S1. Recommend updated x-ray lumbar spine. 2. Interventional procedure options discussed. None at this time 3. Recommend physical therapy. An order was placed. 4. Encouraged regular home exercise program. 5) F/U in 3 months The treatment plan was discussed with the patient during the office visit and they verbalized an understanding of it. I have discussed and confirmed the above treatment plan with the patient and I have reviewed the nurses notes and I am aware of the family/social history. I have confirmed ROS findings. Ezequiel Beyer MD cc: Dr. Roberto Carlos Mullen MD cc: No referring provider defined for this encounter. Phone: N/A Fax: Results of consultation to be transmitted via electronic medical record for those providers who practice within [facility] or with access to [facility] via [facility], or via letter. 1. This document has been created with the use of voice recognition technology. It may contain inaccuracies: (e.g. misspellings, inaccurate syntax or word sense) that have escaped review. 2. The nurse practitioner, nursing staff and medical assistants are a major part of YOUR TREATMENT TEAM and will be handling your phone calls and inquiries, if any. Unless explicitly told otherwise at the time of your office visit, your study results and ensuing treatment plans will be discussed during your follow-up appointment. If you do not have a follow-up appointment and wish to discuss any issues, please set up an appointment. 3. It is my practice to not fill disability or any other insurance-related forms/documentation. All of the office notes, study results, and other pertinent documentation generated as part of your evaluation will be available to you and to your Primary Care Physician (PCP). Use of this material to complete such forms will be at the discretion of your PCP/referring physician. documented in this encounter [facility] 01-04-2023 Note HNO ID: [id number] Author: Kailey Pisano Ma Service: ? Author Type: ? Type: Progress Notes Filed: 01/04/2023 9:02 AM Note Text: Patient presents with: Left Hip - Follow Up, Pain 11 months post visit Left hip pain AMB ROOMING INTAKE FLOWSHEET DATA Pain Pain Level: 8 Pain Location: Hip-Left Description: Raw Duration Amount of Time: 5 Duration Units: Hours Frequency: Intermittent Intervention/Comfort measure: Medication, Reposition Patient states he is having pain deep into his buttock. States he can have low back pain as well. He is unable to walk more than 10 minutes. If he walks for a period ot time he will have pain for the next couple of days. Taking Aleve or Extra-strength Tylenol for the pain and is only taking the edge off. with patient today. [facility] 12-20-2022 Note HNO ID: [id number] Author: Michelle Ward PA-C Service: ? 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 Using the arm for most normal activities. Has completed his oral amoxicillin per ID. Exam: Well healed anterior incision. Active forward elevation to 150. Strong deltoid contraction against resistance. Nontender along scapular spine or acromion. Imaging: I did order and interpret radiographs today, 3 views right shoulder. Reverse total shoulder arthroplasty intact without evidence of mechanical loosening or periprosthetic fracture. Retained broken screw in glenoid. ASSESSMENT: Z96.611 Status post reverse total arthroplasty of right shoulder (primary encounter diagnosis) SUMMARY/PLAN: Continue to use arm for activity as tolerates. No formal follow-up needed. Return to clinic with any concerns. 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 Using the arm for most normal activities. Has completed his oral amoxicillin per ID. Exam: Well healed anterior incision. Active forward elevation to 150. Strong deltoid contraction against resistance. Nontender along scapular spine or acromion. Imaging: I did order and interpret radiographs today, 3 views right shoulder. Reverse total shoulder arthroplasty intact without evidence of mechanical loosening or periprosthetic fracture. Retained broken screw in glenoid. ASSESSMENT: Z96.611 Status post reverse total arthroplasty of right shoulder (primary encounter diagnosis) SUMMARY/PLAN: Continue to use arm for activity as tolerates. No formal follow-up needed. Return to clinic with any concerns. Michelle Ward PA-C documented in this encounter [facility] 11-09-2022 Miscellaneous Notes Completed and faxed back as requested. Type of form: Diabetic supply Form received via fax When form is completed, Fax form to [employer] Form has been forwarded to Physician Desk: Dr. Paz Mccoy Ma documented in this encounter [facility] 11-01-2022 Note HNO ID: [id number] Author: Michelle Ward PA-C Service: ? Author Type: Physician Mat Repairer Type: Progress Notes Filed: 11/01/2022 1:47 PM Note Text: Michelle Ward PA-C Department of Orthopaedics November 01, 2022 SURGERY: Revision right reverse total shoulder arthroplasty CHIEF COMPLAINT: Follow Up, Post Op, and Pain of the Right Shoulder. SUBJECTIVE: Alem returns to clinic today 6 weeks status post the above procedure performed on 09/20/22. On oral amoxicillin per ID due to one culture positive for rare c acnes at time of surgery. Continues to have pain. Exam: Examination of right shoulder reveals well-healed anterior incision. Active forward elevation to 120. Nontender along scapular spine or acromion. Strong deltoid contraction against resistance. Imaging: I did order and interpret radiographs today, 3 view right shoulder. Right reverse total shoulder arthroplasty intact without evidence dinkey mechanic loosening or periprosthetic fracture. Retained broken screw in glenoid from previous surgery. ASSESSMENT: 6 weeks status post revision right reverse total shoulder arthroplasty SUMMARY/PLAN: Alem is doing well. His incision is healed. He has good range of motion. He has some concerns about stopping his Eliquis, recommend he discuss this with his PCP or hematology. Finish up his amoxicillin per ID. Recheck in 6 weeks with repeat x-ray with Dr. Bales. Michelle Ward PA-C [facility] 11-01-2022 Note HNO ID: [id number] Author: Justine Rivas Service: ? Author Type: Associate Civil Engineer Type: Progress Notes Filed: 11/01/2022 1:47 PM Note Text: REVIEW OF SYSTEMS: GENERAL: Well developed, well nourished. No acute distress PAIN: Negative for pain, history of chronic pain or current treatment for chronic pain conditions CARDIOVASCULAR: Negative for chest pain, leg swelling and palpations. MSK: Negative for joint swelling SKIN: Negative for lesions, rash, itching, metal sensitivity NEURO: Negative for seizure, trauma, numbness/tingling of extremities.yes ENDOCRINE: Positive for diabetic associated symptoms HEMATOLOGY: Clots yes [facility] 10-31-2022 Note HNO ID: [id number] Author: Tab Wen PT Service: ? Author Type: Physical Therapist Type: Progress Notes Filed: 11/03/2022 9:07 AM Note Text: Episode Visit Count: 9 Therapist That Will Accept/Oversee The Plan Of Care: Tab Wen Start of Care Date: 09/29/22 Onset Date: 09/20/22 Plan of Care Certification Date: 09/29/22 Next Certification Due Date: 12/29/22 REHABILITATION AND SPORTS THERAPY PHYSICAL THERAPY TREATMENT NOTE ASSESSMENT: Alem Sheehan tolerated the session with fatigue and no issues. He demonstrated improvements in shoulder range of motion and tolerance for strengthening. The patient will continue to benefit from ongoing skilled physical therapy to progress toward set goals and to continue with post-operative protocol. PLAN FOR NEXT VISIT: May try AROM abduction SUBJECTIVE: Patient Reason for Visit: Pt doing well today. Pain continues to diminish. Eating is getting a little easier Pain: Pain Pain Level: 1 Pain Location: Shoulder - Right Description: Dull Frequency: Continuous OBJECTIVE MEASURES WITH LEVEL OF FUNCTION: UE AROM R Shoulder Flex: 145 Degrees UE PROM R Shoulder Flex: 145 Degrees (145 with stick, 155 with therapist assist) R Shoulder External Rotation: 20 Degrees TREATMENT: Therapeutic Exercise: 1: Wand flexion 3x10 2: Wand ER 3x10 3: PROM ER 2x10 4: PROM flexion 2x10 5: *Supine DB chest press 3# 2x10 6: Wall slides x10 7: Wax on, wax off to fatigue each way Skilled Intervention: Patient was educated in proper exercise technique and purpose for exercises. Skilled judgment was provided in selection of appropriate interventions. Provided written instruction for home exercise program to facilitate proper performance and compliance. Correct performance of therapeutic exercises was facilitated with verbal, visual, and tactile cuing. Billing Therapeutic Exercise Treatment Minutes: 30 Total Treatment Time Minutes (timed/untimed): 30 Tab Wen PT [facility] 10-28-2022 Note HNO ID: [id number] Author: Tab Wen PT Service: ? Author Type: Physical Therapist Type: Progress Notes Filed: 10/28/2022 11:09 AM Note Text: Episode Visit Count: 8 Therapist That Will Accept/Oversee The Plan Of Care: Tab Wen Start of Care Date: 09/29/22 Onset Date: 09/20/22 Plan of Care Certification Date: 09/29/22 Next Certification Due Date: 12/29/22 Patient Identified by Name and Date of : Yes REHABILITATION AND SPORTS THERAPY PHYSICAL THERAPY TREATMENT NOTE ASSESSMENT: Alem Sheehan tolerated the session with decreased activity tolerance due to aching in R shoulder, fatigue, and expected muscle soreness. He demonstrated difficulty with door slides . The patient will continue to benefit from ongoing skilled physical therapy to progress toward set goals. PLAN FOR NEXT VISIT: Continue per protocol SUBJECTIVE: Patient Reason for Visit: Pt reports that he was a little more sore after last session, not sure if it was exercsie or everything that has to do with moving. Pt frustrated with amount of achiness that he is having at this point. Pain: Pain Pain Level: 1 Pain Location: Shoulder - Right Description: Aching Frequency: Continuous OBJECTIVE MEASURES WITH LEVEL OF FUNCTION: Form observed with shoulder exercises TREATMENT: Therapeutic Exercise: 1: Wand flexion 3x10 2: Wand ER 3x10 3: Wand abduction 3x10 4: Door slides 3x5 (very achy) Skilled Intervention: Patient was educated in proper exercise technique and purpose for exercises. Skilled judgment was provided in selection of appropriate interventions. Correct performance of therapeutic exercises was facilitated with verbal and visual cuing. Self-Chcf Management: 1: Discussed achiness in upper arm into deltoid region pt is experiencing and rationale for that with the exercises that he is now doing. Skilled Intervention: Skilled judgment in the selection of proper modification for activity of daily living/home management based on clinical presentation, deficits, and needs. Billing Therapeutic Exercise Treatment Minutes: 30 Self-Care/Home Management Treatment Minutes: 8 Total Treatment Time Minutes (timed/untimed): 38 Carmela Hadley, THOMAS Wen PT [facility] 10-25-2022 Note HNO ID: [id number] Author: Tab Wen PT Service: ? Author Type: Physical Therapist Type: Progress Notes Filed: 10/25/2022 4:15 PM Note Text: Episode Visit Count: 7 Therapist That Will Accept/Oversee The Plan Of Care: Tab Wen Start of Care Date: 09/29/22 Onset Date: 09/20/22 Plan of Care Certification Date: 09/29/22 Next Certification Due Date: 12/29/22 Patient Identified by Name and Date of : Yes REHABILITATION AND SPORTS THERAPY PHYSICAL THERAPY TREATMENT NOTE ASSESSMENT: Alem Sheehan tolerated the session with fatigue. He demonstrated difficulty with wall slides due to fatigue. The patient will continue to benefit from ongoing skilled physical therapy to progress toward set goals. PLAN FOR NEXT VISIT: continue advancing exercise as tolerated. SUBJECTIVE: Patient Reason for Visit: Pt reports that after last appointment his shoulder really swelled up after last day abd couldn't move his shoulder for 2 days afterwards. Pt stated having to sign a lot of papers due to selling his house and had to eat out, this may have lead to the shoulder issues, but unsure. Pain: Pain Pain Level: 1 Pain Location: Shoulder - Right Description: Aching Frequency: Continuous OBJECTIVE MEASURES WITH LEVEL OF FUNCTION: UE PROM R Shoulder ABduction: 105 Degrees (wand AAROM standing) TREATMENT: Therapeutic Exercise: 1: Wand flexion 3x10 2: Wand ER 3x10 3: Wand abduction 3x10 4: Door slides 3x10 Skilled Intervention: Patient was educated in proper exercise technique and purpose for exercises. Skilled judgment was provided in selection of appropriate interventions. Correct performance of therapeutic exercises was facilitated with verbal and visual cuing. Manual Therapy: 1: gentle STM to R deltoid with push to tolerance Skilled Intervention: Manual skills to improve joint mobility, ROM, and decrease pain. Utilized anatomy knowledge of the therapist, and assessment of patient's response to intervention. Billing Therapeutic Exercise Treatment Minutes: 40 Manual TherapyTreatment Minutes: 5 Total Treatment Time Minutes (timed/untimed): 45 Carmela Hadley, ACID CUTTER Tab Wen PT [facility] 10-20-2022 Note HNO ID: [id number] Author: Tab Wen PT Service: ? Author Type: Physical Therapist Type: Progress Notes Filed: 10/20/2022 12:33 PM Note Text: Episode Visit Count: 6 Therapist That Will Accept/Oversee The Plan Of Care: Tab Wen Start of Care Date: 09/29/22 Onset Date: 09/20/22 Plan of Care Certification Date: 09/29/22 Next Certification Due Date: 12/29/22 REHABILITATION AND SPORTS THERAPY PHYSICAL THERAPY TREATMENT NOTE ASSESSMENT: Alem Sheehan tolerated the session with fatigue, expected muscle soreness, and no issues. He demonstrated improvements in shoulder range of motion and tolerance for exercises. The patient will continue to benefit from ongoing skilled physical therapy to progress toward set goals and to continue with post-operative protocol. PLAN FOR NEXT VISIT: May try some resistance band rows or straight arm extensions SUBJECTIVE: Patient Reason for Visit: Pt doing well today. Arm a constant soreness that can get worse with movement, but not bad. Pain: Pain Pain Level: 1 Pain Location: Shoulder - Right Description: Aching, Sore Frequency: Continuous OBJECTIVE MEASURES WITH LEVEL OF FUNCTION: UE PROM R Shoulder Flex: 135 Degrees R Shoulder External Rotation: 8 Degrees TREATMENT: Therapeutic Exercise: 1: Wand flexion 3x10 2: Wand ER 3x10 3: PROM shoulder flexion, abduction, ER 3x10 each 7: Shoulder AROM flexion x10 8: Door slides 3x10 Skilled Intervention: Patient was educated in proper exercise technique and purpose for exercises. Skilled judgment was provided in selection of appropriate interventions. Correct performance of therapeutic exercises was facilitated with verbal, visual, and tactile cuing. Manual Therapy: 1: gentle STM to R deltoid with push to tolerance Skilled Intervention: Manual skills to improve joint mobility, ROM, and decrease pain. Utilized anatomy knowledge of the therapist, and assessment of patient's response to intervention. Billing Therapeutic Exercise Treatment Minutes: 20 Manual TherapyTreatment Minutes: 5 Total Treatment Time Minutes (timed/untimed): 25 Tab Wen PT [facility] 10-20-2022 History of Presen t illness Narrative Episode Visit Count: 6 Therapist That Will Accept/Oversee The Plan Of Care: Tab Wen Start of Care Date: 09/29/22 Onset Date: 09/20/22 Plan of Care Certification Date: 09/29/22 Next Certification Due Date: 12/29/22 REHABILITATION AND SPORTS THERAPY PHYSICAL THERAPY TREATMENT NOTE ASSESSMENT: Alem Sheehan tolerated the session with fatigue, expected muscle soreness, and no issues. He demonstrated improvements in shoulder range of motion and tolerance for exercises. The patient will continue to benefit from ongoing skilled physical therapy to progress toward set goals and to continue with post-operative protocol. PLAN FOR NEXT VISIT: May try some resistance band rows or straight arm extensions SUBJECTIVE: Patient Reason for Visit: Pt doing well today. Arm a constant soreness that can get worse with movement, but not bad. Pain: Pain Pain Level: 1 Pain Location: Shoulder - Right Description: Aching, Sore Frequency: Continuous OBJECTIVE MEASURES WITH LEVEL OF FUNCTION: UE PROM R Shoulder Flex: 135 Degrees R Shoulder External Rotation: 8 Degrees TREATMENT: Therapeutic Exercise: 1: Wand flexion 3x10 2: Wand ER 3x10 3: PROM shoulder flexion, abduction, ER 3x10 each 7: Shoulder AROM flexion x10 8: Door slides 3x10 Skilled Intervention: Patient was educated in proper exercise technique and purpose for exercises. Skilled judgment was provided in selection of appropriate interventions. Correct performance of therapeutic exercises was facilitated with verbal, visual, and tactile cuing. Manual Therapy: 1: gentle STM to R deltoid with push to tolerance Skilled Intervention: Manual skills to improve joint mobility, ROM, and decrease pain. Utilized anatomy knowledge of the therapist, and assessment of patient's response to intervention. Billing Therapeutic Exercise Treatment Minutes: 20 Manual TherapyTreatment Minutes: 5 Total Treatment Time Minutes (timed/untimed): 25 Tab Behzad, PT documented in this encounter [facility] 10-19-2022 Note HNO ID: [id number] Author: Roberto Carlos Mullen MD Service: ? Author Type: Physician Type: Progress Notes Filed: 10/19/2022 3:22 PM Note Text: Patient presents with: 6 Month Exam HPI: Patient presents today for office visit for follow up. 4wks post-op from right shoulder repair. Hematoma right arm. Sleeping better with Trazodone. Labs came back ok. HTN: Has not been checking BP Stable Denies chest pain and shortness of breath No headaches or dizziness No palpitations No syncope No edema DM: Sugars have been good. BS today was 101 Watching diet. No vision changes. Using CPAP nightly. Sleeping well. Feels better since last ov. Alk phos was up but did have recent shoulder surgery that did involve working on the bone. Suggested we follow Using eliquis for six to eight weeks after surgery at recommendation of hematology. Component Latest Ref Rng AND Units 10/14/2022 WBC 3.70 - 11.00 k/uL 5.38 RBC 4.20 - 6.00 m/uL 4.66 Hemoglobin 13.0 - 17.0 g/dL 13.1 Hematocrit 39.0 - 51.0 % 40.9 MCV 80.0 - 100.0 fL 87.8 MCH 26.0 - 34.0 pg 28.1 MCHC 30.5 - 36.0 g/dL 32.0 RDW-CV 11.5 - 15.0 % 17.1 (H) Platelet Count 150 - 400 k/uL 276 MPV 9.0 - 12.7 fL 9.0 Neut% % 60.7 Abs Neut (ANC) 1.45 - 7.50 k/uL 3.27 Lymph% % 21.4 Abs Lymph 1.00 - 4.00 k/uL 1.15 Leslie% % 10.8 Abs Leslie <0.87 k/uL 0.58 Eosin% % 5.8 Abs Eosin <0.46 k/uL 0.31 Baso% % 0.7 Abs Baso <0.11 k/uL 0.04 Immature Gran % % 0.6 IMMATURE GRANS (ABS) <0.10 k/uL 0.03 NRBC /100 WBC 0.0 Absolute nRBC <0.01 k/uL <0.01 DTYPE Auto Glucose 74 - 99 mg/dL 101 (H) BUN 9 - 24 mg/dL 17 Creatinine 0.73 - 1.22 mg/dL 1.05 Sodium 136 - 144 mmol/L 138 Potassium 3.7 - 5.1 mmol/L 4.2 Chloride 97 - 105 mmol/L 101 CO2 22 - 30 mmol/L 23 Anion Gap 9 - 18 mmol/L 14 Calcium 8.5 - 10.2 mg/dL 9.9 eGFR >=60 mL/min/1.73mA? 75 Albumin 3.9 - 4.9 g/dL 3.8 (L) Bilirubin, Total 0.2 - 1.3 mg/dL 0.5 Bilirubin, Conjug <0.2 mg/dL <0.2 Alkaline Phosphatase 38 - 113 U/L 164 (H) AST 14 - 40 U/L 29 ALT 10 - 54 U/L 24 Protein, Total 6.3 - 8.0 g/dL 6.7 Creatinine, Ur Random (UCRR) 20.0 - 300.0 mg/dL 152.3 Albumin, Urine Random mg/L 12.8 Albumin/Creat Ratio <30 mg/g 8 Hemoglobin A1C 4.3 - 5.6 % 5.2 Estimated Average Glucose mg/dL 103 TSH 0.270 - 4.200 mIU/L 3.150 WSR 0 - 15 mm/hr 9 CRP <0.9 mg/dL 0.4 MEDICATIONS: Current Outpatient Medications Medication Sig traZODone (DESYREL) 50 mg tablet Take 1 tablet by mouth daily at bedtime. prn losartan (COZAAR) 100 mg tablet Take 1 tablet by mouth once daily. blood sugar diagnostic (LimaTOUCH VERIO TEST STRIPS) test strip Test blood sugar(s) 2 times daily. Dx: E11.9 amoxicillin (AMOXIL) 500 mg capsule Take 2 capsules by mouth three times daily. metFORMIN (GLUCOPHAGE) 1,000 mg tablet Take 1 tablet by mouth twice daily with meals. atorvastatin (LIPITOR) 40 mg tablet Take 1 tablet by mouth daily at bedtime. For cholesterol. apixaban (ELIQUIS) 2.5 mg tab(s) Take 1 tablet by mouth twice daily. amLODIPine (NORVASC) 10 mg tablet Take 1 tablet by mouth once daily. magnesium oxide (MAG-OX) 400 mg (241.3 mg magnesium) tablet Take 1 tablet by mouth once daily. carvedilol (COREG) 6.25 mg tablet Take 1 tablet by mouth twice daily. BREO ELLIPTA 200-25 mcg/dose inhaler Inhale 1 Inhalation as instructed once daily. dulaglutide (TRULICITY) 1.5 mg/0.5 mL pen injector Inject 1.5 mg subcutaneously one time a week. Inject once per week. Discard Pen After (Patient taking differently: Inject 1.5 mg subcutaneously one time a week. Inject once per week on Monday. Discard Pen After) buPROPion XL (WELLBUTRIN XL) 150 mg 24 hr tablet Take 1 tablet by mouth once daily. amoxicillin (POLYMOX, AMOXIL) 500 mg capsule 4 capsules 1 hours prior to dental procedure. Cholecalciferol, Vitamin D3, 25 mcg (1,000 unit) cap Take 1 capsule by mouth once daily. aspirin, enteric coated (ASPIRIN, ENTERIC COATED) 81 mg EC tablet Take 2 tablets by mouth once daily. albuterol (PROVENTIL) 2.5 mg /3 mL (0.083 %) nebulizer solution Use 2.5 mg via nebulizer. albuterol HFA (VENTOLIN HFA) 90 mcg/actuation inhaler Inhale 2 Puffs as instructed every 4 hours as needed for wheezing/shortness of breath. ondansetron (ZOFRAN) 4 mg tablet Take 1 tablet by mouth every 8 hours as needed. pramipexole (MIRAPEX) 0.25 mg tablet Take 1 tablet by mouth once daily. Cholecalciferol, Vitamin D3, 1,000 unit cap Take 1 capsule by mouth once daily. (Patient taking differently: Take 1,000 Units by mouth once daily. Takes 400 MG tablet by mouth daily) lancets (ONE TOUCH DELICA) [facility] blood sugar(s) 2 daily. Blood-Glucose Meter (ONETOUCH VERIO SYSTEM) [facility] [place] Dispense One Kit - Verio Meter Kit. Test blood sugar twice daily. Dx: E11.9. Insulin-no. therapeutic multivitamin (THERA VITAMIN) tablet Take 1 tablet by mouth daily with breakfast. CPAP 10 at hs Current Facility-Administered Medications Medicat (more content not included)... [facility] 10-18-2022 Note HNO ID: [id number] Author: Tab Wen PT Service: ? Author Type: Physical Therapist Type: Progress Notes Filed: 10/18/2022 8:59 AM Note Text: Episode Visit Count: 5 Therapist That Will Accept/Oversee The Plan Of Care: Tab Wen Start of Care Date: 09/29/22 Onset Date: 09/20/22 Plan of Care Certification Date: 09/29/22 Next Certification Due Date: 12/29/22 REHABILITATION AND SPORTS THERAPY PHYSICAL THERAPY TREATMENT NOTE ASSESSMENT: Alem Sheehan tolerated the session with fatigue and no issues. He demonstrated improvements in shoulder range of motion and tolerance for exercises. The patient will continue to benefit from ongoing skilled physical therapy to progress toward set goals and to continue with post-operative protocol. PLAN FOR NEXT VISIT: Continue exercise progression per tolerance. May increase volume this week, progressing to resistance exercises next week SUBJECTIVE: Patient Reason for Visit: Pt continues to do better. Still pretty sore, but resting pain continues to get better and better Pain: Pain Pain Level: 1 Pain Location: Shoulder - Right Description: Aching, Sore Frequency: Continuous OBJECTIVE MEASURES WITH LEVEL OF FUNCTION: UE PROM R Shoulder Flex: 132 Degrees (132 in sitting with wand) R Shoulder External Rotation: 5 Degrees (5 with wand, 18 with PROM from therapist) TREATMENT: Therapeutic Exercise: 1: Wand flexion 3x10 2: Wand ER 3x10 3: PROM shoulder flexion, abduction, ER 3x10 each 4: PROM shoulder supported pendulums with gentle vibration in supine x20 cw/ccw 5: Shoulder flexion isometrics 3x3, 5 sec holds 6: Shoulder abduction isometrics 3x10, 5 sec holds 7: Shoulder AROM flexion x10 8: *Door slides 2x10 9: *Wax on, wax off 2x10 each way Skilled Intervention: Patient was educated in proper exercise technique and purpose for exercises. Skilled judgment was provided in selection of appropriate interventions. Provided written instruction for home exercise program to facilitate proper performance and compliance. Correct performance of therapeutic exercises was facilitated with verbal, visual, and tactile cuing. Billing Therapeutic Exercise Treatment Minutes: 31 Total Treatment Time Minutes (timed/untimed): 31 Tab Wen PT [facility] 10-18-2022 History of Presen t illness Narrative Episode Visit Count: 5 Therapist That Will Accept/Oversee The Plan Of Care: Tab Behzad Start of Care Date: 09/29/22 Onset Date: 09/20/22 Plan of Care Certification Date: 09/29/22 Next Certification Due Date: 12/29/22 REHABILITATION AND SPORTS THERAPY PHYSICAL THERAPY TREATMENT NOTE ASSESSMENT: Alem Sheehan tolerated the session with fatigue and no issues. He demonstrated improvements in shoulder range of motion and tolerance for exercises. The patient will continue to benefit from ongoing skilled physical therapy to progress toward set goals and to continue with post-operative protocol. PLAN FOR NEXT VISIT: Continue exercise progression per tolerance. May increase volume this week, progressing to resistance exercises next week SUBJECTIVE: Patient Reason for Visit: Pt continues to do better. Still pretty sore, but resting pain continues to get better and better Pain: Pain Pain Level: 1 Pain Location: Shoulder - Right Description: Aching, Sore Frequency: Continuous OBJECTIVE MEASURES WITH LEVEL OF FUNCTION: UE PROM R Shoulder Flex: 132 Degrees (132 in sitting with wand) R Shoulder External Rotation: 5 Degrees (5 with wand, 18 with PROM from therapist) TREATMENT: Therapeutic Exercise: 1: Wand flexion 3x10 2: Wand ER 3x10 3: PROM shoulder flexion, abduction, ER 3x10 each 4: PROM shoulder supported pendulums with gentle vibration in supine x20 cw/ccw 5: Shoulder flexion isometrics 3x3, 5 sec holds 6: Shoulder abduction isometrics 3x10, 5 sec holds 7: Shoulder AROM flexion x10 8: *Door slides 2x10 9: *Wax on, wax off 2x10 each way Skilled Intervention: Patient was educated in proper exercise technique and purpose for exercises. Skilled judgment was provided in selection of appropriate interventions. Provided written instruction for home exercise program to facilitate proper performance and compliance. Correct performance of therapeutic exercises was facilitated with verbal, visual, and tactile cuing. Billing Therapeutic Exercise Treatment Minutes: 31 Total Treatment Time Minutes (timed/untimed): 31 Tab Wen PT documented in this encounter [facility] 10-17-2022 Note HNO ID: [id number] Author: Isael Beatty Service: ? Author Type: Physician Type: Progress Notes Filed: 10/17/2022 11:14 AM Note Text: Last saw Mayra Stephane: 08/30/22 Subjective: Patient presents to clinic c/o painful toenails. They state that the nails are especially painful with shoe gear and pressure. Patient states that nails 1-5 b/l are painful. Patient admits to being diabetic. No other pedal complaints at this time. Patient states no change in medications or medical history since last visit. Objective: Patient presents to clinic ambulating in sneakers Vasc: DP and PT pulses are palpable bilateral. CFT is less than 5 seconds bilateral. Skin temperature is warm to cool proximal to distal bilateral. There is no edema or varicosities noted. Neuro: Protective sensation is decreased to the foot and toes when tested with the 5.07 SWM bilateral. Vibratory sensation is absent at the hallux IPJ bilateral. The hallux is downgoing bilateral. Derm: Nails 1-5 b/l are painful, discolored-yellow, thick, crumbly, dystrophic and with subungal debris. Skin is of normal turgor, texture and hair growth is absent bilateral. There are no hyperkeratosis, ulcerations, scars, verruca or other lesions noted. Ortho: Muscle strength is 5/5 for all pedal groups tested. Ankle joint DF is decreased with the knee extended with no pain or crepitus noted. 1st MPJ ROM is decreased bilateral. Assessment: (B35.1) Onychomycosis (primary encounter diagnosis) (M79.675) Pain in toe of left foot (M79.674) Pain in toe of right foot (E11.42) Diabetic polyneuropathy associated with type 2 diabetes mellitus (HCC) (I73.9) PAD (peripheral artery disease) ([facility]) Plan: Patient was seen and evaluated. Nails 1-5 bilateral were debrided in length and thickness. Small bleed to left 2nd toe. Band aide applied Discussed neuropathy in feet. Appears to have progressed but no pain. Continue to monitor feet and avoid barefoot walking. Patient was instructed on the continued importance of diabetic foot care along with proper diet and keeping their blood sugar under control to prevent complications. Patient is to RTC in 3-4 months. Isael Beatty DPM [facility] 10-17-2022 Note HNO ID: [id number] Author: Radha Baez RN Service: ? Author Type: Registered Nurse Type: Progress Notes Filed: 10/17/2022 11:14 AM Note Text: Patient presents with: Left Foot - Established Patient, Follow Up, Diabetic Foot Care Right Foot - Established Patient, Follow Up, Diabetic Foot Care Patient presents for diabetic foot check and 3 month nail care. Denies any new pain or problems with feet. [facility] 10-17-2022 History of Presen t illness Narrative Last saw Mayra Calderón: 08/30/22 Subjective: Patient presents to clinic c/o painful toenails. They state that the nails are especially painful with shoe gear and pressure. Patient states that nails 1-5 b/l are painful. Patient admits to being diabetic. No other pedal complaints at this time. Patient states no change in medications or medical history since last visit. Objective: Patient presents to clinic ambulating in sneaker Vasc: DP and PT pulses are palpable bilateral. CFT is less than 5 seconds bilateral. Skin temperature is warm to cool proximal to distal bilateral. There is no edema or varicosities noted. Neuro: Protective sensation is decreased to the foot and toes when tested with the 5.07 SWM bilateral. Vibratory sensation is absent at the hallux IPJ bilateral. The hallux is downgoing bilateral. Derm: Nails 1-5 b/l are painful, discolored-yellow, thick, crumbly, dystrophic and with subungal debris. Skin is of normal turgor, texture and hair growth is absent bilateral. There are no hyperkeratosis, ulcerations, scars, verruca or other lesions noted. Ortho: Muscle strength is 5/5 for all pedal groups tested. Ankle joint DF is decreased with the knee extended with no pain or crepitus noted. 1st MPJ ROM is decreased bilateral. Assessment: (B35.1) Onychomycosis (primary encounter diagnosis) (M79.675) Pain in toe of left foot (M79.674) Pain in toe of right foot (E11.42) Diabetic polyneuropathy associated with type 2 diabetes mellitus (HCC) (I73.9) PAD (peripheral artery disease) ([facility]) Plan: Patient was seen and evaluated. Nails 1-5 bilateral were debrided in length and thickness. Small bleed to left 2nd toe. Band aide applied Discussed neuropathy in feet. Appears to have progressed but no pain. Continue to monitor feet and avoid barefoot walking. Patient was instructed on the continued importance of diabetic foot care along with proper diet and keeping their blood sugar under control to prevent complications. Patient is to RTC in 3-4 months. Isael Beatty DPM Patient presents with: Left Foot - Established Patient, Follow Up, Diabetic Foot Care Right Foot - Established Patient, Follow Up, Diabetic Foot Care Patient presents for diabetic foot check and 3 month nail care. Denies any new pain or problems with feet. documented in this encounter [facility] 10-17-2022 Instructions Isael Beatty - 10/17/2022 11:00 AM EDT Diabetes Foot Care Instructions When you have diabetes, proper foot care is very important. Poor foot care may lead to amputation of a foot or leg. As a person with diabetes, you are more vulnerable to foot problems, because diabetes can damage your nerves and reduce blood flow to your feet. Here are some diabetes foot care tips to follow: Wash and Dry Your Feet Daily Use mild soaps Use warm water Pat your skin dry; do not rub. Thoroughly dry your feet. After washing, use lotion on your feet to prevent cracking. Do not put lotion between your toes. Examine Your Feet Each Day Check the tops and bottoms of your feet. Have someone else look at your feet if you cannot see them. Check for dry, cracked skin. Look for blisters, cuts, scratches, or other sores. Check for redness, increased warmth, or tenderness when touching any area of your feet. Check for ingrown toenails, corns, and calluses. If you get a blister or sore from your shoes, do not pop it. Apply a bandage and wear a different pair of shoes. Take Care of Your Toenails Cut toenails after bathing, when they are soft. Cut toenails straight across and smooth with a nail file. Avoid cutting into the corners of toes. Do not cut cuticles. If you have neuropathy (or decreased sensation in your feet) a anime artist should always cut your toenails. Be Careful When Exercising Walk and exercise in comfortable shoes. Do not exercise when you have open sores on your feet. Protect Your Feet With Shoes and Socks Never go barefoot. Always protect your feet by wearing shoes or hard-soled slippers or footwear. Avoid shoes with high heels and pointed toes. Avoid shoes that expose your toes or heels (such as open-toed shoes or sandals). These types of shoes increase your risk for injury and potential infections. Try on new footwear with the type of socks you usually wear. Do not wear new shoes for more than an hour at a time. Change your socks daily. Look and feel inside your shoes before putting them on to make sure there are no foreign objects or rough areas. Avoid tight socks. Wear natural-fiber socks (cotton, wool, or a cotton-wool blend). Wear special shoes if your health care provider recommends them. Wear shoes/boots that will protect your feet from various weather conditions (cold, moisture, etc.). Make sure your shoes fit properly. If you have neuropathy (nerve damage), you may not notice that your shoes are too tight. Perform the footwear test described below. Footwear Test Use this simple test to see if your shoes fit correctly: Stand on a piece of paper. (Make sure you are standing and not sitting, because your foot changes shape when you stand.) Trace the outline of your foot. Trace the outline of your shoe. Compare the tracings: Is the shoe too narrow? Is your foot crammed into the shoe? The shoe should be at least 1/2 inch longer than your longest toe and as wide as your foot. Proper Shoe Choices The following types of shoes are best for people with diabetes Closed toes and heels Leather uppers without a seam inside At least 1/2 inch extra space at the end of your longest toe Inside of shoe should be soft with no rough areas Outer sole should be made of stiff material Shoes should be at least as wide as your feet Tips for Foot Care in Diabetes Don't wait to treat a minor foot problem if you have diabetes. Follow your health care provider's guidelines and first aid guidelines. Report foot injuries and infections to your health care provider immediately. Check water temperature with your elbow, not your foot. Do not use a heating pad on your feet. Do not cross your legs. Do not self-treat your corns, calluses, or other foot problems. Go to your health care provider or anime artist to treat these conditions. documented in this encounter [facility] 10-13-2022 Note HNO ID: [id number] Author: Roberto Carlos Mullen MD Service: ? Author Type: Physician Type: Progress Notes Filed: 10/13/2022 5:46 PM Note Text: Patient presents with: Fatigue HPI: Patient presents today for office visit for fatigue and weakness. 3 weeks post-op from right shoulder repair. First two weeks post-op was sleeping well. This past week is experiencing extreme fatigue and weakness. Not sleeping well. Tried OTC sleep aid with no relief. No trouble falling asleep. Wakes up frequently and then tosses and turns. Has noticed a hematoma to right bicep that developed in the last 3-4 days. Surgery is aware. Denies fever or chills Some nausea. Contributes it to all the pills he takes post-op. Currently taking 1000 mg Amoxicillin TID for Cutibacterium found in shoulder. No vomiting. Intermittent diarrhea. Sugars have been good. No fever. No chest pain No shortness of breath. Still on eliquis. Bp is stable. Once he stopped his pain meds he is not sleeping well which might be contributing to the fatigue. Remains on his meds. Occasional loose stools. Not occurring all the time however. No bloody or black stools. No edema Moods have been fair. MEDICATIONS: Current Outpatient Medications Medication Sig losartan (COZAAR) 100 mg tablet Take 1 tablet by mouth once daily. blood sugar diagnostic (New.netUCH VERIO TEST STRIPS) test strip Test blood sugar(s) 2 times daily. Dx: E11.9 amoxicillin (AMOXIL) 500 mg capsule Take 2 capsules by mouth three times daily. metFORMIN (GLUCOPHAGE) 1,000 mg tablet Take 1 tablet by mouth twice daily with meals. atorvastatin (LIPITOR) 40 mg tablet Take 1 tablet by mouth daily at bedtime. For cholesterol. doxycycline hyclate (VIBRAMYCIN) 100 mg capsule Take 1 capsule by mouth every 12 hours 6am/6pm for 21 days. apixaban (ELIQUIS) 2.5 mg tab(s) Take 1 tablet by mouth twice daily. amLODIPine (NORVASC) 10 mg tablet Take 1 tablet by mouth once daily. magnesium oxide (MAG-OX) 400 mg (241.3 mg magnesium) tablet Take 1 tablet by mouth once daily. carvedilol (COREG) 6.25 mg tablet Take 1 tablet by mouth twice daily. BREO ELLIPTA 200-25 mcg/dose inhaler Inhale 1 Inhalation as instructed once daily. dulaglutide (TRULICITY) 1.5 mg/0.5 mL pen injector Inject 1.5 mg subcutaneously one time a week. Inject once per week. Discard Pen After (Patient taking differently: Inject 1.5 mg subcutaneously one time a week. Inject once per week on Monday. Discard Pen After) buPROPion XL (WELLBUTRIN XL) 150 mg 24 hr tablet Take 1 tablet by mouth once daily. amoxicillin (POLYMOX, AMOXIL) 500 mg capsule 4 capsules 1 hours prior to dental procedure. fluticasone (FLONASE) 50 mcg/actuation nasal spray Use 2 Sprays in each nostril once daily. Cholecalciferol, Vitamin D3, 25 mcg (1,000 unit) cap Take 1 capsule by mouth once daily. aspirin, enteric coated (ASPIRIN, ENTERIC COATED) 81 mg EC tablet Take 2 tablets by mouth once daily. albuterol (PROVENTIL) 2.5 mg /3 mL (0.083 %) nebulizer solution Use 2.5 mg via nebulizer. albuterol HFA (VENTOLIN HFA) 90 mcg/actuation inhaler Inhale 2 Puffs as instructed every 4 hours as needed for wheezing/shortness of breath. ondansetron (ZOFRAN) 4 mg tablet Take 1 tablet by mouth every 8 hours as needed. pramipexole (MIRAPEX) 0.25 mg tablet Take 1 tablet by mouth once daily. Cholecalciferol, Vitamin D3, 1,000 unit cap Take 1 capsule by mouth once daily. (Patient taking differently: Take 1,000 Units by mouth once daily. Takes 400 MG tablet by mouth daily) lancets (ONE TOUCH DELICA) 33 gauge misc Test blood sugar(s) 2 daily. Blood-Glucose Meter (ONETOUCH VERIO SYSTEM) [facility] [place] Dispense One Kit - Verio Meter Kit. Test blood sugar twice daily. Dx: E11.9. Insulin-no. therapeutic multivitamin (THERA VITAMIN) tablet Take 1 tablet by mouth daily with breakfast. CPAP 10 at hs Current Facility-Administered Medications Medication Dose Route Frequency perflutren lipid microspheres 1.3 mL in NaCl (PF) 0.9% 10 mL injection (DEFINITY) INTRAVENOUS DIRECTED PRN sodium chloride 0.9 % (flush) 10 mL (BD POSIFLUSH) 10 mL INTRAVENOUS DIRECTED PRN ALLERGIES: ALLERGIES Allergen Reactions Seasonal Allergies Other: See Comments SOB due to tree pollen, dog dander, weeds, cow dander,molds, pine pollen. 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 [facility] 10-13-2022 History of Presen t illness Narrative Patient presents with: Fatigue HPI: Patient presents today for office visit for fatigue and weakness. 3 weeks post-op from right shoulder repair. First two weeks post-op was sleeping well. This past week is experiencing extreme fatigue and weakness. Not sleeping well. Tried OTC sleep aid with no relief. No trouble falling asleep. Wakes up frequently and then tosses and turns. Has noticed a hematoma to right bicep that developed in the last 3-4 days. Surgery is aware. Denies fever or chills Some nausea. Contributes it to all the pills he takes post-op. Currently taking 1000 mg Amoxicillin TID for Cutibacterium found in shoulder. No vomiting. Intermittent diarrhea. Sugars have been good. No fever. No chest pain No shortness of breath. Still on eliquis. Bp is stable. Once he stopped his pain meds he is not sleeping well which might be contributing to the fatigue. Remains on his meds. Occasional loose stools. Not occurring all the time however. No bloody or black stools. No edema Moods have been fair. MEDICATIONS: Current Outpatient Medications Medication Sig losartan (COZAAR) 100 mg tablet Take 1 tablet by mouth once daily. blood sugar diagnostic (LimaTOUCH VERIO TEST STRIPS) test strip Test blood sugar(s) 2 times daily. Dx: E11.9 amoxicillin (AMOXIL) 500 mg capsule Take 2 capsules by mouth three times daily. metFORMIN (GLUCOPHAGE) 1,000 mg tablet Take 1 tablet by mouth twice daily with meals. atorvastatin (LIPITOR) 40 mg tablet Take 1 tablet by mouth daily at bedtime. For cholesterol. doxycycline hyclate (VIBRAMYCIN) 100 mg capsule Take 1 capsule by mouth every 12 hours 6am/6pm for 21 days. apixaban (ELIQUIS) 2.5 mg tab(s) Take 1 tablet by mouth twice daily. amLODIPine (NORVASC) 10 mg tablet Take 1 tablet by mouth once daily. magnesium oxide (MAG-OX) 400 mg (241.3 mg magnesium) tablet Take 1 tablet by mouth once daily. carvedilol (COREG) 6.25 mg tablet Take 1 tablet by mouth twice daily. BREO ELLIPTA 200-25 mcg/dose inhaler Inhale 1 Inhalation as instructed once daily. dulaglutide (TRULICITY) 1.5 mg/0.5 mL pen injector Inject 1.5 mg subcutaneously one time a week. Inject once per week. Discard Pen After (Patient taking differently: Inject 1.5 mg subcutaneously one time a week. Inject once per week on Monday. Discard Pen After) buPROPion XL (WELLBUTRIN XL) 150 mg 24 hr tablet Take 1 tablet by mouth once daily. amoxicillin (POLYMOX, AMOXIL) 500 mg capsule 4 capsules 1 hours prior to dental procedure. fluticasone (FLONASE) 50 mcg/actuation nasal spray Use 2 Sprays in each nostril once daily. Cholecalciferol, Vitamin D3, 25 mcg (1,000 unit) cap Take 1 capsule by mouth once daily. aspirin, enteric coated (ASPIRIN, ENTERIC COATED) 81 mg EC tablet Take 2 tablets by mouth once daily. albuterol (PROVENTIL) 2.5 mg /3 mL (0.083 %) nebulizer solution Use 2.5 mg via nebulizer. albuterol HFA (VENTOLIN HFA) 90 mcg/actuation inhaler Inhale 2 Puffs as instructed every 4 hours as needed for wheezing/shortness of breath. ondansetron (ZOFRAN) 4 mg tablet Take 1 tablet by mouth every 8 hours as needed. pramipexole (MIRAPEX) 0.25 mg tablet Take 1 tablet by mouth once daily. Cholecalciferol, Vitamin D3, 1,000 unit cap Take 1 capsule by mouth once daily. (Patient taking differently: Take 1,000 Units by mouth once daily. Takes 400 MG tablet by mouth daily) lancets (ONE TOUCH DELICA) 33 gauge misc Test blood sugar(s) 2 daily. Blood-Glucose Meter ([employer] VERIO SYSTEM) misc Dispense One Kit - Verio Meter Kit. Test blood sugar twice daily. Dx: E11.9. Insulin-no. therapeutic multivitamin (THERA VITAMIN) tablet Take 1 tablet by mouth daily with breakfast. CPAP 10 at hs Current Facility-Administered Medications Medication Dose Route Frequency perflutren lipid microspheres 1.3 mL in NaCl (PF) 0.9% 10 mL injection (DEFINITY) INTRAVENOUS DIRECTED PRN sodium chloride 0.9 % (flush) 10 mL (BD POSIFLUSH) 10 mL INTRAVENOUS DIRECTED PRN ALLERGIES: ALLERGIES Allergen Reactions Seasonal Allergies Other: See Comments SOB due to tree pollen, dog dander, weeds, cow dander,molds, pine pollen. 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 Diaphragmatic hernia without mention of obstruction or gangrene Esophagitis, unspecified Fatty liver Generalized anxiety disorder Anxiety, Generalized Heartburn 02/27/2017 History of aortic valve replacement 06/12/2014 History of transfusion Motion sickness Pt reports he gets Vertigo ~ once a year SIVAKUMAR (obstructive sleep apnea) Other and unspecified hyperlipidemia PMH - PAST MEDICAL HISTORY OF nodules in left lung Profound impairment, one eye, impairment level not further specified left Pulmonary embolism (HCC) 2020 Restless legs syndrome (RLS) Right shoulder pain Type II or unspecified type diabetes mellitus without mention of complication, not stated as uncontrolled 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ty 02/17/2017 Added automatically from request for surgery [id number] Umbilical hernia 2019 Unspecified asthma(493.90) Unspecified essential hypertension Unspecified sleep apnea Use CPAP nightly PAST SURGICAL HISTORY Procedure Laterality Date ARTHRP KNE CONDYLE&PLATU MEDIAL&LAT COMPARTMENTS Left 12/25/2019 ASCENDING AORTA GRAFT W/BYPASS W/CORON REC 2014 COLONOSCOPY FLX DX W/COLLJ SPEC WHEN PFRMD 02/02/2005 Colonoscopy-repeat in COLONOSCOPY FLX DX W/COLLJ SPEC WHEN PFRMD 04/04/2016 DIAGNOSTIC ARTHROSCOPY SHOULDER +- SYNOVIAL BX Right 01/17/2014 EGD TRANSORAL BIOPSY SINGLE/MULTIPLE 04/23/2009 EYE SURGERY HX Left Eye removed from trauma I&D ABSC SMPL OR SGL Right 07/23/2008 Groin KNEE ARTHROSCOPY Right 05/23/2014 NEUROPLASTY &/TRANSPOSITION ULNAR NERVE ELBOW Right 03/01/2017 RECONSTRUCTION ROTATOR CUFF AVULSION CHRONIC Right 01/17/2014 RPR UMBILICAL HRNA 5 YRS/> REDUCIBLE 04/08/2020 SHOULDER SURGERY HX Right 2020 Right reverse total shoulder arthroplasty, open biceps tenodesis VALVULOPLASTY - AORTIC VALVE 2014 WRIST SURGERY HX Left Mass removal FAMILY HISTORY Problem Relation Age of Onset Asthma Mother Stroke Father blood clot other (Pulmonary embolism) Father Arthritis Sister Lupus DVT Brother Diabetes Brother Hypertension Brother Stroke Maternal Grandmother Heart Maternal Grandmother Heart Maternal Grandfather Heart Paternal Grandmother Stroke Paternal Grandmother Arthritis Daughter Sgrogren's Breast Cancer Maternal Aunt Cancer Maternal Aunt glioblastoma Social History Tobacco Use Smoking status: Never Smokeless tobacco: Never Vaping Use Vaping Use: Never used Substance Use Topics Alcohol use: No Drug use: No Reviewed current medications, allergies, past medical history, surgical history, family history and social history today. REVIEW OF SYSTEMS All other reviewed and negative other than HPI. VITALS: BP 118/72 Pulse 90 Temp 36.9 C (98.4 F) Ht 188 cm (6' 2 ) Wt 103.9 kg (229 lb) SpO2 95% BMI 29.40 kg/m Last 4 Encounter Wt Readings: Date: Wt: 10/11/2022 104.3 kg (230 lb) 10/06/2022 101.2 kg (223 lb) 09/06/2022 101.3 kg (223 lb 6.4 oz) 08/30/2022 104.8 kg (231 lb) PHYSICAL EXAMINATION: General appearance: Well appearing, alert, in no acute distress, well-hydrated, well nourished. Skin: no redness or induration. Small hematoma lower in the forearm. Head: Normocephalic, no masses, lesions, tenderness or abnormalities Lungs: Lungs clear to auscultation. No wheezing, rhonchi, rales Heart: RRR without murmur, gallop, or rubs. No ectopy Abdomen: Normal abdominal exam, Abdomen soft, non-tender. Bowel sounds normal. No masses, organomegaly Extremities: No deformities, edema, skin discoloration, clubbing or cyanosis. Good capillary refill. Musculoskeletal: No joint swelling, deformity, or tenderness ASSESSMENT/PLAN: 1. Fatigue, unspecified type - ICD9: 780.79, ICD10: R53.83 (primary diagnosis) - discussed that it could be related to lack of sleep. Discussed risks and benefits of new medication with the patient. Advised them to call if any side effects or questions. Has appt later this week Call sooner prn. Red flags for re-assessment reviewed with patient in detail. - CBC + DIFF - BASIC METABOLIC PNL - TSH BLD - TRAZODONE 50 MG TABLET 2. Recurrent major depression in partial remission (HCC) - ICD9: 296.35, ICD10: F33.41 - states is stable. 3. Coronary artery disease involving [place] heart without angina pectoris, unspecified vessel or lesion type - ICD9: 414.01, ICD10: I25.10 - no issues. 4. Controlled type 2 diabetes mellitus without complication, without long-term current use of insulin (HCC) - ICD9: 250.00, ICD10: E11.9 - Controlled - Continue current medications - HGB A1C - ALBUMIN/CREAT RATIO RND UR 5. Infection of total joint prosthesis, subsequent encounter - ICD9: V58.89, ICD10: T84.50XD - per ID and ortho 6. Chronic insomnia - ICD9: 780.52, ICD10: F51.04 - TRAZODONE 50 MG TABLET Roberto Carlos Mullen documented in this encounter [facility] 10-13-2022 Note HNO ID: [id number] Author: Tab Wen PT Service: ? Author Type: Physical Therapist Type: Progress Notes Filed: 10/13/2022 11:28 AM Note Text: Episode Visit Count: 4 Therapist That Will Accept/Oversee The Plan Of Care: Tab Wen Start of Care Date: 09/29/22 Onset Date: 09/20/22 Plan of Care Certification Date: 09/29/22 Next Certification Due Date: 12/29/22 REHABILITATION AND SPORTS THERAPY PHYSICAL THERAPY TREATMENT NOTE ASSESSMENT: Alem Sheehan tolerated the session with fatigue and no issues. He demonstrated improvements in shoulder range of motion and tolerance for AROM exercises. The patient will continue to benefit from ongoing skilled physical therapy to progress toward set goals and to continue with post-operative protocol. PLAN FOR NEXT VISIT: Continue improving motion, strength per protocol SUBJECTIVE: Patient Reason for Visit: pt doing well today, lump in his arm was just a hematoma Pain: Pain Pain Level: 2 Pain Location: Shoulder - Right Description: Sore, Aching Frequency: Continuous OBJECTIVE MEASURES WITH LEVEL OF FUNCTION: UE AROM R Shoulder Flex: 120 Degrees UE PROM R Shoulder Flex: 100 Degrees (130 degrees in sitting) R Shoulder ABduction: 95 Degrees R Shoulder External Rotation: 3 Degrees (-7 with wand, 3 with therapist assist) TREATMENT: Therapeutic Exercise: 1: Wand flexion 3x10 2: Wand ER 3x10 3: PROM shoulder flexion, abduction, ER 3x10 each 4: PROM shoulder supported pendulums with gentle vibration in supine x20 cw/ccw 5: Shoulder flexion isometrics 3x3, 5 sec holds 6: *Shoulder abduction isometrics 3x10, 5 sec holds 7: *Shoulder AROM flexion 3x10 Skilled Intervention: Patient was educated in proper exercise technique and purpose for exercises. Skilled judgment was provided in selection of appropriate interventions. Provided written instruction for home exercise program to facilitate proper performance and compliance. Correct performance of therapeutic exercises was facilitated with verbal, visual, and tactile cuing. Billing Therapeutic Exercise Treatment Minutes: 30 Total Treatment Time Minutes (timed/untimed): 30 Tab Wen PT [facility] 10-13-2022 History of Presen t illness Narrative Episode Visit Count: 4 Therapist That Will Accept/Oversee The Plan Of Care: Tab Wen Start of Care Date: 09/29/22 Onset Date: 09/20/22 Plan of Care Certification Date: 09/29/22 Next Certification Due Date: 12/29/22 REHABILITATION AND SPORTS THERAPY PHYSICAL THERAPY TREATMENT NOTE ASSESSMENT: Alem Sheehan tolerated the session with fatigue and no issues. He demonstrated improvements in shoulder range of motion and tolerance for AROM exercises. The patient will continue to benefit from ongoing skilled physical therapy to progress toward set goals and to continue with post-operative protocol. PLAN FOR NEXT VISIT: Continue improving motion, strength per protocol SUBJECTIVE: Patient Reason for Visit: pt doing well today, lump in his arm was just a hematoma Pain: Pain Pain Level: 2 Pain Location: Shoulder - Right Description: Sore, Aching Frequency: Continuous OBJECTIVE MEASURES WITH LEVEL OF FUNCTION: UE AROM R Shoulder Flex: 120 Degrees UE PROM R Shoulder Flex: 100 Degrees (130 degrees in sitting) R Shoulder ABduction: 95 Degrees R Shoulder External Rotation: 3 Degrees (-7 with wand, 3 with therapist assist) TREATMENT: Therapeutic Exercise: 1: Wand flexion 3x10 2: Wand ER 3x10 3: PROM shoulder flexion, abduction, ER 3x10 each 4: PROM shoulder supported pendulums with gentle vibration in supine x20 cw/ccw 5: Shoulder flexion isometrics 3x3, 5 sec holds 6: *Shoulder abduction isometrics 3x10, 5 sec holds 7: *Shoulder AROM flexion 3x10 Skilled Intervention: Patient was educated in proper exercise technique and purpose for exercises. Skilled judgment was provided in selection of appropriate interventions. Provided written instruction for home exercise program to facilitate proper performance and compliance. Correct performance of therapeutic exercises was facilitated with verbal, visual, and tactile cuing. Billing Therapeutic Exercise Treatment Minutes: 30 Total Treatment Time Minutes (timed/untimed): 30 Tab Wen PT documented in this encounter [facility] 10-12-2022 Miscellaneous Notes Spoke to patient and was scheduled Lorena Durand Ma documented in this encounter [facility] 10-11-2022 Note HNO ID: [id number] Author: Michelle Ward PA-C Service: ? Author Type: Physician Mat Repairer Type: Progress Notes Filed: 10/11/2022 3:09 PM Note Text: Michelle Ward PA-C Department of Orthopaedics October 11, 2022 SURGERY: Revision right reverse total shoulder arthroplasty CHIEF COMPLAINT: Follow Up and Pain of the Right Shoulder. SUBJECTIVE: Alem returns to clinic now 3 weeks status post revision right reverse total shoulder arthroplasty. Here for staple removal. Exam: Examination of right shoulder reveals healing anterior incision. No erythema. No drainage. Active forward elevation to 90. Imaging: I did order and interpret radiographs today, 3 view right shoulder. Right reverse total shoulder arthroplasty intact without evidence of mechanical loosening or periprosthetic fracture. Retained screw in glenoid from previous surgery. ASSESSMENT: 3 weeks status post revision right reverse total shoulder arthroplasty SUMMARY/PLAN: Incision is healing. Eduardo were removed. Continue physical therapy. Antibiotics per Dr. Singleton. Return to clinic in 4 weeks with repeat x-rays at that time. Michelle Ward PA-C [facility] 10-11-2022 Note HNO ID: [id number] Author: Justine Rivas Service: ? Author Type: Associate Civil Engineer Type: Progress Notes Filed: 10/11/2022 3:09 PM Note Text: REVIEW OF SYSTEMS: GENERAL: Well developed, well nourished. No acute distress PAIN: Negative for pain, history of chronic pain or current treatment for chronic pain conditions CARDIOVASCULAR: Negative for chest pain, leg swelling and palpations. MSK: Negative for joint swelling SKIN: Negative for lesions, rash, itching, metal sensitivity NEURO: Negative for seizure, trauma, numbness/tingling of extremities. ENDOCRINE: Positive for diabetic associated symptoms HEMATOLOGY: Clots yes [facility] 10-10-2022 Note HNO ID: [id number] Author: Tab Wen PT Service: ? Author Type: Physical Therapist Type: Progress Notes Filed: 10/10/2022 1:34 PM Note Text: Episode Visit Count: 3 Therapist That Will Accept/Oversee The Plan Of Care: Tab Wen Start of Care Date: 09/29/22 Onset Date: 09/20/22 Plan of Care Certification Date: 09/29/22 Next Certification Due Date: 12/29/22 REHABILITATION AND SPORTS THERAPY PHYSICAL THERAPY TREATMENT NOTE ASSESSMENT: Alem Sheehan tolerated the session with fatigue and no issues. He demonstrated improvements in shoulder range of motion and tolerance for exercises. The patient will continue to benefit from ongoing skilled physical therapy to progress toward set goals and to continue with post-operative protocol. PLAN FOR NEXT VISIT: Assess addition of isometrics SUBJECTIVE: Patient Reason for Visit: Pt concerned about a hard lump in his biceps area near the bruising remaining in his arm. Pain: Pain Pain Level: 2 Pain Location: Shoulder - Right Description: Sore, Aching Frequency: Continuous OBJECTIVE MEASURES WITH LEVEL OF FUNCTION: UE PROM R Shoulder Flex: 90 Degrees R Shoulder ABduction: 90 Degrees R Shoulder External Rotation: -10 Degrees TREATMENT: Therapeutic Exercise: 1: Shoulder pulleys into flexion x10 (replaced with wand flexion today due to decreased pain) 2: *Wand flexion in supine lying 3x10 3: Wand ER 3x10 4: PROM shoulder flexion, abduction, ER 3x10 each 5: PROM shoulder supported pendulums with gentle vibration in supine x20 cw/ccw 6: *Shoulder flexion isometrics 3x3, 5 sec holds Skilled Intervention: Patient was educated in proper exercise technique and purpose for exercises. Skilled judgment was provided in selection of appropriate interventions. Provided written instruction for home exercise program to facilitate proper performance and compliance. Correct performance of therapeutic exercises was facilitated with verbal, visual, and tactile cuing. Billing Therapeutic Exercise Treatment Minutes: 40 Total Treatment Time Minutes (timed/untimed): 40 Tab Wen, PT [facility] 10-10-2022 History of Presen t illness Narrative Episode Visit Count: 3 Therapist That Will Accept/Oversee The Plan Of Care: Tab Wen Start of Care Date: 09/29/22 Onset Date: 09/20/22 Plan of Care Certification Date: 09/29/22 Next Certification Due Date: 12/29/22 REHABILITATION AND SPORTS THERAPY PHYSICAL THERAPY TREATMENT NOTE ASSESSMENT: Alem Sheehan tolerated the session with fatigue and no issues. He demonstrated improvements in shoulder range of motion and tolerance for exercises. The patient will continue to benefit from ongoing skilled physical therapy to progress toward set goals and to continue with post-operative protocol. PLAN FOR NEXT VISIT: Assess addition of isometrics SUBJECTIVE: Patient Reason for Visit: Pt concerned about a hard lump in his biceps area near the bruising remaining in his arm. Pain: Pain Pain Level: 2 Pain Location: Shoulder - Right Description: Sore, Aching Frequency: Continuous OBJECTIVE MEASURES WITH LEVEL OF FUNCTION: UE PROM R Shoulder Flex: 90 Degrees R Shoulder ABduction: 90 Degrees R Shoulder External Rotation: -10 Degrees TREATMENT: Therapeutic Exercise: 1: Shoulder pulleys into flexion x10 (replaced with wand flexion today due to decreased pain) 2: *Wand flexion in supine lying 3x10 3: Wand ER 3x10 4: PROM shoulder flexion, abduction, ER 3x10 each 5: PROM shoulder supported pendulums with gentle vibration in supine x20 cw/ccw 6: *Shoulder flexion isometrics 3x3, 5 sec holds Skilled Intervention: Patient was educated in proper exercise technique and purpose for exercises. Skilled judgment was provided in selection of appropriate interventions. Provided written instruction for home exercise program to facilitate proper performance and compliance. Correct performance of therapeutic exercises was facilitated with verbal, visual, and tactile cuing. Billing Therapeutic Exercise Treatment Minutes: 40 Total Treatment Time Minutes (timed/untimed): 40 Tab Wen PT documented in this encounter [facility] 10-07-2022 Note HNO ID: [id number] Author: Tab Wen PT Service: ? Author Type: Physical Therapist Type: Progress Notes Filed: 10/10/2022 10:46 AM Note Text: Episode Visit Count: 2 Therapist That Will Accept/Oversee The Plan Of Care: Tab Wen Start of Care Date: 09/29/22 Onset Date: 09/20/22 Plan of Care Certification Date: 09/29/22 Next Certification Due Date: 12/29/22 Patient Identified by Name and Date of : Yes REHABILITATION AND SPORTS THERAPY PHYSICAL THERAPY TREATMENT NOTE ASSESSMENT: Alem Sheehan tolerated the session with fatigue, decreased symptoms, and expected muscle soreness. He demonstrated difficulty with PROM and AAROM of ER of R shoulder. The patient will continue to benefit from ongoing skilled physical therapy to progress toward set goals. PLAN FOR NEXT VISIT: Continue advancing ROM as tolerated per protocol SUBJECTIVE: Patient Reason for Visit: Pt reports that his shoulder is feeling better. Pt stated that hew completed HEP 2x per day, most difficult exercise was wand ER. Pain: Pain Pain Level: 4 Pain Location: Shoulder - Right Post Treatment Pain Post Treatment Pain Level: Better Post Treatment Pain Location: Shoulder - Right OBJECTIVE MEASURES WITH LEVEL OF FUNCTION: Increased shoulder flexion noted with increased reps of PROM. TREATMENT: Therapeutic Exercise: 1: Shoulder pulleys into flexion 3x10 2: Wand ER 3x10 3: Supported shoulder pendulums in tiny circles 5x10 cw/ccw 4: PROM shoulder flexion 3x10 5: PROM shoulder ER 2x10 (painful and limited range) Skilled Intervention: Patient was educated in proper exercise technique and purpose for exercises. Skilled judgment was provided in selection of appropriate interventions. Correct performance of therapeutic exercises was facilitated with verbal and visual cuing. Billing Therapeutic Exercise Treatment Minutes: 50 Total Treatment Time Minutes (timed/untimed): 50 Carmela Hadley, ACID CUTTER Tab Wen, PT [facility] 10-07-2022 History of Presen t illness Narrative Episode Visit Count: 2 Therapist That Will Accept/Oversee The Plan Of Care: Tab Wen Start of Care Date: 09/29/22 Onset Date: 09/20/22 Plan of Care Certification Date: 09/29/22 Next Certification Due Date: 12/29/22 Patient Identified by Name and Date of : Yes REHABILITATION AND SPORTS THERAPY PHYSICAL THERAPY TREATMENT NOTE ASSESSMENT: Alem Sheehan tolerated the session with fatigue, decreased symptoms, and expected muscle soreness. He demonstrated difficulty with PROM and AAROM of ER of R shoulder. The patient will continue to benefit from ongoing skilled physical therapy to progress toward set goals. PLAN FOR NEXT VISIT: Continue advancing ROM as tolerated per protocol SUBJECTIVE: Patient Reason for Visit: Pt reports that his shoulder is feeling better. Pt stated that hew completed HEP 2x per day, most difficult exercise was wand ER. Pain: Pain Pain Level: 4 Pain Location: Shoulder - Right Post Treatment Pain Post Treatment Pain Level: Better Post Treatment Pain Location: Shoulder - Right OBJECTIVE MEASURES WITH LEVEL OF FUNCTION: Increased shoulder flexion noted with increased reps of PROM. TREATMENT: Therapeutic Exercise: 1: Shoulder pulleys into flexion 3x10 2: Wand ER 3x10 3: Supported shoulder pendulums in tiny circles 5x10 cw/ccw 4: PROM shoulder flexion 3x10 5: PROM shoulder ER 2x10 (painful and limited range) Skilled Intervention: Patient was educated in proper exercise technique and purpose for exercises. Skilled judgment was provided in selection of appropriate interventions. Correct performance of therapeutic exercises was facilitated with verbal and visual cuing. Billing Therapeutic Exercise Treatment Minutes: 50 Total Treatment Time Minutes (timed/untimed): 50 Carmela Hadley, ACID CUTTER Tab Wen PT documented in this encounter [facility] 10-07-2022 Miscellaneous Notes Patient phones requesting refills as follows: Requested Prescriptions Pending Prescriptions Disp Refills losartan (COZAAR) 100 mg tablet 30 tablet 5 Sig: Take 1 tablet by mouth once daily. SILVINO 08/30/22 NOV 10/19/22 Please review and advise. Tera Nava LPN documented in this encounter [facility] 10-06-2022 Note HNO ID: [id number] Author: Michelle Ward PA-C Service: ? Author Type: Physician Mat Repairer Type: Progress Notes Filed: 10/06/2022 4:03 PM Note Text: Michelle Ward PA-C Department of Orthopaedics October 06, 2022 SURGERY: Revision right reverse total shoulder arthroplasty SUBJECTIVE: Alem presents to clinic today for wound check. Now 2 weeks status post revision right reverse total shoulder arthroplasty. 1 culture positive for C acnes. Plan is amoxicillin for [address] Singleton. Exam: Examination of right shoulder reveals healing anterior incision with eduardo in place. No active bleeding. No erythema. Glue present at most distal aspect of incision. ASSESSMENT: Status post revision reverse total shoulder arthroplasty SUMMARY/PLAN: Incision is healing. There is no active bleeding but there has been some spots. We will leave the eduardo in until next week. We will recheck on Monday and likely remove eduardo at that time. Continue oral antibiotics per infectious disease. Michelle Ward PA-C [facility] 10-06-2022 History of Presen t illness Narrative Michelle Ward PA-C Department of Orthopaedics October 06, 2022 SURGERY: Revision right reverse total shoulder arthroplasty SUBJECTIVE: Alem presents to clinic today for wound check. Now 2 weeks status post revision right reverse total shoulder arthroplasty. 1 culture positive for C acnes. Plan is amoxicillin for [address] Singleton. Exam: Examination of right shoulder reveals healing anterior incision with eduardo in place. No active bleeding. No erythema. Glue present at most distal aspect of incision. ASSESSMENT: Status post revision reverse total shoulder arthroplasty SUMMARY/PLAN: Incision is healing. There is no active bleeding but there has been some spots. We will leave the eduardo in until next week. We will recheck on Monday and likely remove eduardo at that time. Continue oral antibiotics per infectious disease. Michelle Ward PA-C documented in this encounter [facility] 10-06-2022 Miscellaneous Notes Patient has been identified by name and date of : Yes Requested Prescriptions Pending Prescriptions Disp Refills blood sugar diagnostic (ONETOUCH VERIO TEST STRIPS) test strip 200 Strip 3 Sig: Test blood sugar(s) 2 times daily. Dx: E11.9 RX INSTRUCTIONS: Patient aware RX will be sent to pharmacy. No need to notify patient. Divya Pickens LPN documented in this encounter [facility] 10-03-2022 Note HNO ID: [id number] Author: Annie Lowe MA Service: ? Author Type: Branch Administrator Type: Progress Notes Filed: 10/04/2022 3:01 PM Note Text: POPULATION HEALTH NAVIGATION OUTREACH Action/FYI Spoke with Alem. Scheduled medicare wellness LVM PayMins MESSAGE SENT ANNUAL MEDICARE WELLNESS BP CONTROLLED (<130/80) Never done ADVANCE DIRECTIVE DISCUSSION due on 06/12/2022 Patient Identified by Name and : YES, via phone Outreach Outcome/Action Spoke to patient / parent / legal guardian: Patient scheduled Unable to reach patient: Left message [email or web address] message sent Did you use a PCP flex slot to schedule this appointment? N/A Reason for Outreach Care Gap or Scheduling/Wellness visits Payer: Payor: MEDICARE / Plan: MEDICARE A AND B / Product Type: Medicare / Care Gap Reviewed:: Annual Wellness visit Controlling Blood Pressure Reminder: Reminder note to check Health Maintenance for items below Health Maintenance items due: BP CONTROLLED (<130/80) Never done DILATED RETINAL EXAM due on 03/22/2022 ADVANCE DIRECTIVE DISCUSSION due on 06/12/2022 URINE ALBUMIN:CREATININE RATIO due on 06/22/2022 DIABETIC FOOT EXAM due on 07/01/2022 Navigation Signature: Annie Lowe MA October 03, 2022 4:35 PM [facility] 10-03-2022 History of Presen t illness Narrative POPULATION HEALTH NAVIGATION OUTREACH Action/FYI Spoke with Alem. Scheduled medicare wellness LVM PayMins MESSAGE SENT ANNUAL MEDICARE WELLNESS BP CONTROLLED (<130/80) Never done ADVANCE DIRECTIVE DISCUSSION due on 06/12/2022 Patient Identified by Name and : YES, via phone Outreach Outcome/Action Spoke to patient / parent / legal guardian: Patient scheduled Unable to reach patient: Left message [employer] message sent Did you use a PCP flex slot to schedule this appointment? N/A Reason for Outreach Care Gap or Scheduling/Wellness visits Payer: Payor: MEDICARE / Plan: MEDICARE A AND B / Product Type: Medicare / Care Gap Reviewed:: Annual Wellness visit Controlling Blood Pressure Reminder: Reminder note to check Health Maintenance for items below Health Maintenance items due: BP CONTROLLED (<130/80) Never done DILATED RETINAL EXAM due on 03/22/2022 ADVANCE DIRECTIVE DISCUSSION due on 06/12/2022 URINE ALBUMIN:CREATININE RATIO due on 06/22/2022 DIABETIC FOOT EXAM due on 07/01/2022 Navigation Signature: Annie Lowe MA October 03, 2022 4:35 PM documented in this encounter [facility] 10-03-2022 Note Patient Outreach (CRISTEL TNAV) ALEM SHEEHAN ([id number]) 1950 M Date Time Provider Department 10/03/22 ANNIE LOWE During your visit today, we recorded the following information about you: Annie Lowe MA 10/04/2022 3:01 PM Addendum POPULATION HEALTH NAVIGATION OUTREACH Action/FYI Spoke with Alem. Scheduled medicare wellness LVM 4vetsT MESSAGE SENT ANNUAL MEDICARE WELLNESS BP CONTROLLED (<130/80) Never done ADVANCE DIRECTIVE DISCUSSION due on 06/12/2022 Patient Identified by Name and : YES, via phone Outreach Outcome/Action Spoke to patient / parent / legal guardian: Patient scheduled Unable to reach patient: Left message [email or web address] message sent Did you use a PCP flex slot to schedule this appointment? N/A Reason for Outreach Care Gap or Scheduling/Wellness visits Payer: Payor: MEDICARE / Plan: MEDICARE A AND B / Product Type: Medicare / Care Gap Reviewed:: Annual Wellness visit Controlling Blood Pressure Reminder: Reminder note to check Health Maintenance for items below Health Maintenance items due: BP CONTROLLED (<130/80) Never done DILATED RETINAL EXAM due on 03/22/2022 ADVANCE DIRECTIVE DISCUSSION due on 06/12/2022 URINE ALBUMIN:CREATININE RATIO due on 06/22/2022 DIABETIC FOOT EXAM due on 07/01/2022 Navigation Signature: Annie Lowe MA October 03, 2022 4:35 PM Allergies As of Date: 10/03/2022 Noted Allergy Reaction SEASONAL ALLERGIES 12/03/2013 14 - Other: See Comments Comments: SOB due to tree pollen, dog dander, weeds, cow dander,molds, pine pollen. ERYTHROMYCIN 12/25/2006 6 - Diarrhea HCTZ (AMILORIDE-HYDROCHLOROTHIAZI*12/2020 14 - Other: See Comments Comments: Hypercalcemia OXYCODONE 12/20/2021 8 - GI Upset Comments: Plus not particularly effective with decreasing pain TRAMADOL 12/20/2021 8 - GI Upset Date Reviewed: 09/30/2022 Reviewed by: Lana oLzano MA - Fully Assessed Reason for Visit: Population Health Navigation Outreach [3910] Cmt: [facility] PCSA Prescriptions as of 10/04/2022 - metFORMIN (GLUCOPHAGE) 1,000 mg tablet Take 1 tablet by mouth twice daily with meals. - atorvastatin (LIPITOR) 40 mg tablet Take 1 tablet by mouth daily at bedtime. For cholesterol. - amoxicillin (AMOXIL) 500 mg capsule Take 2 capsules by mouth three times daily for 14 days. - doxycycline hyclate (VIBRAMYCIN) 100 mg capsule Take 1 capsule by mouth every 12 hours 6am/6pm for 21 days. - apixaban (ELIQUIS) 2.5 mg tab(s) Take 1 tablet by mouth twice daily. - amLODIPine (NORVASC) 10 mg tablet Take 1 tablet by mouth once daily. - magnesium oxide (MAG-OX) 400 mg (241.3 mg magnesium) tablet Take 1 tablet by mouth once daily. - carvedilol (COREG) 6.25 mg tablet Take 1 tablet by mouth twice daily. - BREO ELLIPTA 200-25 mcg/dose inhaler Inhale 1 Inhalation as instructed once daily. - dulaglutide (TRULICITY) 1.5 mg/0.5 mL pen injector Inject 1.5 mg subcutaneously one time a week. Inject once per week. Discard Pen After - buPROPion XL (WELLBUTRIN XL) 150 mg 24 hr tablet Take 1 tablet by mouth once daily. - blood sugar diagnostic ([employer] VERIO TEST STRIPS) test strip Test blood sugar(s) 2 times daily. Dx: E11.9 - losartan (COZAAR) 100 mg tablet Take 1 tablet by mouth once daily. - amoxicillin (POLYMOX, AMOXIL) 500 mg capsule 4 capsules 1 hours prior to dental procedure. - fluticasone (FLONASE) 50 mcg/actuation nasal spray Use 2 Sprays in each nostril once daily. - Cholecalciferol, Vitamin D3, 25 mcg (1,000 unit) cap Take 1 capsule by mouth once daily. - aspirin, enteric coated (ASPIRIN, ENTERIC COATED) 81 mg EC tablet Take 2 tablets by mouth once daily. - albuterol (PROVENTIL) 2.5 mg /3 mL (0.083 %) nebulizer solution Use 2.5 mg via nebulizer. - albuterol HFA (VENTOLIN HFA) 90 mcg/actuation inhaler Inhale 2 Puffs as instructed every 4 hours as needed for wheezing/shortness of breath. - ondansetron (ZOFRAN) 4 mg tablet Take 1 tablet by mouth every 8 hours as needed. - pramipexole (MIRAPEX) 0.25 mg tablet Take 1 tablet by mouth once daily. - Cholecalciferol, Vitamin D3, 1,000 unit cap Take 1 capsule by mouth once daily. - lancets (ONE TOUCH DELICA) 33 gauge misc Test blood sugar(s) 2 daily. - Blood-Glucose Meter (ONETOUCH VERIO SYSTEM) misc Dispense One Kit - Verio Meter Kit. Test blood sugar twice daily. Dx: E11.9. Insulin-no. - therapeutic multivitamin (THERA VITAMIN) tablet Take 1 tablet by mouth daily with breakfast. - CPAP 10 at hs Facility-Administered Medications as of 10/04/2022 - perflutren lipid microspheres 1.3 mL in NaCl (PF) 0.9% 10 mL injection (DEFINITY) - sodium chloride 0.9 % (flush) 10 mL (BD POSIFLUSH) Problem List As Of Date 10/03/2022 Noted Resolved Hyperlipidemia [E78.5] Essential hypertension [I10] Restless legs syndrome (RLS) [G25.81] Congenital anomaly of aortic arch [Q (more content not included)... [facility] 09-30-2022 Note HNO ID: [id number] Author: Viry Bales MD Service: ? Author Type: Physician Type: Progress Notes Filed: 09/30/2022 1:24 PM Note Text: PAIN EVALUATION 09/30/2022 1214 Pain Level: 8 Pain Location: Shoulder-Right Description: Aching;Tightness;Throbbing Frequency: Continuous Intervention/Comfort measure: Medication;Cold;Exercise oxycodone, tylenol Comments: PT currently Encounter Diagnosis ICD-10-CM 1. 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 He underwent complete removal and reimplantation of his reverse arthroplasty for treatment of a broken screw with possible deep infection. One of his cultures is showing rare cutibacterium acnes and he has been in touch with the infectious disease service and is being treated with oral antibiotics at this time. The rest of the cultures remain negative. Wound VAC has stopped working and he is here today to have this removed. On exam today the wound VAC is removed. Dinuba are intact. Overall most of the incision is healed there is a small area distally that is slowly leaking a small amount of blood. Gentle passive range of motion within a very limited range does not cause pain in the shoulder. I reviewed radiographs of his right shoulder today showing expected position of his revision reverse arthroplasty. Small tip of the broken screw still remains within the glenoid as expected. Today we discussed his surgery and he will continue to take oral antibiotics at the direction of the infectious disease service. If any more of the cultures turn positive we may consider this to be a true infection and will treat with intravenous antibiotics instead. Today the incision site was cleaned and dried and he was given dressing supplies to use for the next week. This should be changed daily. He will return in 1 week for repeat examination to ensure that his incision has healed. Viry Bales MD Shoulder AND Elbow Surgeon Department of Orthopaedic Surgery [facility] 09-30-2022 Note HNO ID: [id number] Author: BEBA Mantilla Service: Radiology Author Type: Technologist Type: Progress Notes Filed: 09/30/2022 12:10 PM Note Text: Radiology Service Progress Note PATIENT NAME: Alem Sheehan DATE OF SERVICE: September 30, 2022 TIME: 12:09 PM PATIENT IDENTITY VERIFICATION COMPLETED USING TWO (2) IDENTIFIERS: Name and Date of confirmed by patient verbally. FALL SCREENING: Has the patient had 2 falls in the last year or 1 fall with injury or currently using an Ambulatory Assistive Device (Walker, Cane, Wheelchair, Crutches, etc.)? No PATIENT GENDER DATA: Male PATIENT RELEVANT IMPLANT DATA REVIEWED: Not Applicable RADIOLOGY DEPARTMENT: General X-ray: Exam(s) Completed: Upper Extremity X-Ray(s): Shoulder, grashey, outlet view, axillary right PERIPHERAL IV DATA: Not applicable SIGNED BY: BEBA Mantilla September 30, 2022 12:09 PM [facility] 09-30-2022 History of Presen t illness Narrative Images from the original note were not included. PAIN EVALUATION 09/30/2022 1214 Pain Level: 8 Pain Location: Shoulder-Right Description: Aching;Tightness;Throbbing Frequency: Continuous Intervention/Comfort measure: Medication;Cold;Exercise oxycodone, tylenol Comments: PT currently Encounter Diagnosis ICD-10-CM 1. 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 He underwent complete removal and reimplantation of his reverse arthroplasty for treatment of a broken screw with possible deep infection. One of his cultures is showing rare cutibacterium acnes and he has been in touch with the infectious disease service and is being treated with oral antibiotics at this time. The rest of the cultures remain negative. Wound VAC has stopped working and he is here today to have this removed. On exam today the wound VAC is removed. Dinuba are intact. Overall most of the incision is healed there is a small area distally that is slowly leaking a small amount of blood. Gentle passive range of motion within a very limited range does not cause pain in the shoulder. I reviewed radiographs of his right shoulder today showing expected position of his revision reverse arthroplasty. Small tip of the broken screw still remains within the glenoid as expected. Today we discussed his surgery and he will continue to take oral antibiotics at the direction of the infectious disease service. If any more of the cultures turn positive we may consider this to be a true infection and will treat with intravenous antibiotics instead. Today the incision site was cleaned and dried and he was given dressing supplies to use for the next week. This should be changed daily. He will return in 1 week for repeat examination to ensure that his incision has healed. Viry Bales MD Shoulder & Elbow Surgeon Department of Orthopaedic Surgery [facility] documented in this encounter [facility] 09-29-2022 Note HNO ID: [id number] Author: Tab Wen PT Service: ? Author Type: Physical Therapist Type: Progress Notes Filed: 09/29/2022 2:50 PM Note Text: Episode Visit Count: 1 Therapist That Will Accept/Oversee The Plan Of Care: Tab Wen Start of Care Date: 09/29/22 Onset Date: 09/20/22 Plan of Care Certification Date: 09/29/22 Next Certification Due Date: 12/29/22 Patient Identified by Name and Date of : Yes REHABILITATION AND SPORTS THERAPY PHYSICAL THERAPY EVALUATION PLAN OF CARE: Assessment: Alem Sheehan presents with diagnosis of R reverse TSA revision that interferes with lifting, physical activities, sleeping, reaching behind back, reaching overhead, use hand with arm at shoulder level, dressing, grooming . He presents with impairments in ADL's, overall function, range of motion, soft tissue healing, strength, symptom management, tissue tenderness, and wound healing. PROMIS? (Patient-Reported Outcomes Measurement Information System) scores were reviewed and all domains identified as a rehabilitation concern. Prognosis for therapy is Fair due to: clinical presentation, multiple co- morbidities, chronic nature of impairments, limited tolerance to activity . He will benefit from skilled therapy services to meet the goals established for this plan of care as noted below. Goals for Episode of Care: created on 09/29/22 through 12/29/22 [place] in home exercise program. Patient will decrease pain rating by 2 points to meet minimal clinical important difference for numeric pain rating scale. Patient will increase active ROM of R shoulder to 120 degrees flexion and abduction, 60 degrees external rotation to allow pt to to improve postural alignment and to improve performance of ADLs. Patient will demonstrate increase in R shoulder strength to 5/5 during manual muscle testing in order to improve function for basic self-care tasks, home management tasks, leisure / recreation skills, light functional tasks, and prior functional tasks. Perform reaching, lifting with decreased report of symptoms/pain in 8-12 weeks. Perform sleeping and ADLs without pain. Planned Interventions, Frequency, and Duration: Current Frequency: 2x/week Duration: 12 weeks Total Number of Visits Planned: 20 Planned Treatment Interventions: Therapeutic exercise (99744), Neuromuscular re-education (21860), Manual therapy (25075), Therapeutic activities (99897), Self-mcc management (87379), Patient/Family/Caregiver Education, Body Mechanics Training PLAN FOR NEXT VISIT: Assess 3 exercises and pt tolerance. Increase per pt tolerance Patient demonstrates good understanding of plan of care and treatment. The above goals and plan of care were discussed and agreed upon by patient/family. SUBJECTIVE: Alem Sheehan is a 72 year old male seen today for R reverse TSA revision after a screw broke and caused an infection. Pt and come in today noting an increase in blood in his PICC line, which is abnormal to them. No s/s consistent with infection like fever, feeling unwell, etc. Shoulder extremely painful to move right now and noticeable bruising remains Functional Limitations: lifting, physical activities, sleeping, reaching behind back, reaching overhead, use hand with arm at shoulder level, dressing, grooming Prior Level of Function: Independent without limitations Intake Information: Prescription present Previous Treatment: Surgery , Physical Therapy Pain: Pain Pain Level: 8 Pain Location: Shoulder - Right Description: Sore, Aching, Throbbing, Sharp Frequency: Continuous PROMIS Scales Higher is Better 09/27/2022 09/24/2022 04/25/2022 Phys Func - Score 24 (severe dysfunction) 24 (severe dysfunction) 38 (moderate dysfunction) Phys Func - Percentile 0 % 0 % 12 % Self-Eff Symptom - Score 37 (Low) 34 (Low) 42 (Average) Self-Eff Symptom - Percentile 10 % 5 % 21 % T-scores: mean of general population = 50. 5 points is clinically meaningfully difference Percentiles provide an indication of how the patient's score ranks in relation to the general population. Higher percentile rankings indicate better function/quality of life. 50th percentile is the average of the general population and indicates half of respondents had a worse score. OBJECTIVE MEASURES WITH LEVEL OF FUNCTION: Shoulder Observations R Shoulder Presents with: Swelling, Ecchymosis, Warmth, Incision, Comments Comment: PICC like portal UE AROM R Shoulder Flex: 20 Degrees R Shoulder ABduction: 30 Degrees UE PROM R Shoulder Flex: 30 Degrees R Shoulder ABduction: 40 Degrees R Shoulder External Rotation: 0 Degrees UE and Cervical Strength R UE Strength: deferred today due to acuity of surgery and pain/difficulty with major AROM limitations Education: TREATMENT: PT Treatment Interventions: Therapeutic Exercise Evaluation Therapeutic Exercise: 1: *Shoulder pulleys into flexion (more content not included)... [facility] 09-29-2022 History of Presen t illness Narrative Episode Visit Count: 1 Therapist That Will Accept/Oversee The Plan Of Care: Tab Wen Start of Care Date: 09/29/22 Onset Date: 09/20/22 Plan of Care Certification Date: 09/29/22 Next Certification Due Date: 12/29/22 Patient Identified by Name and Date of : Yes REHABILITATION AND SPORTS THERAPY PHYSICAL THERAPY EVALUATION PLAN OF CARE: Assessment: Alem Sheehan presents with diagnosis of R reverse TSA revision that interferes with lifting, physical activities, sleeping, reaching behind back, reaching overhead, use hand with arm at shoulder level, dressing, grooming . He presents with impairments in ADL's, overall function, range of motion, soft tissue healing, strength, symptom management, tissue tenderness, and wound healing. PROMIS (Patient-Reported Outcomes Measurement Information System) scores were reviewed and all domains identified as a rehabilitation concern. Prognosis for therapy is Fair due to: clinical presentation, multiple co- morbidities, chronic nature of impairments, limited tolerance to activity . He will benefit from skilled therapy services to meet the goals established for this plan of care as noted below. Goals for Episode of Care: created on 09/29/22 through 12/29/22 [place] in home exercise program. Patient will decrease pain rating by 2 points to meet minimal clinical important difference for numeric pain rating scale. Patient will increase active ROM of R shoulder to 120 degrees flexion and abduction, 60 degrees external rotation to allow pt to to improve postural alignment and to improve performance of ADLs. Patient will demonstrate increase in R shoulder strength to 5/5 during manual muscle testing in order to improve function for basic self-care tasks, home management tasks, leisure / recreation skills, light functional tasks, and prior functional tasks. Perform reaching, lifting with decreased report of symptoms/pain in 8-12 weeks. Perform sleeping and ADLs without pain. Planned Interventions, Frequency, and Duration: Current Frequency: 2x/week Duration: 12 weeks Total Number of Visits Planned: 20 Planned Treatment Interventions: Therapeutic exercise (86944), Neuromuscular re-education (82007), Manual therapy (34713), Therapeutic activities (09861), Self-mcc management (68878), Patient/Family/Caregiver Education, Body Mechanics Training PLAN FOR NEXT VISIT: Assess 3 exercises and pt tolerance. Increase per pt tolerance Patient demonstrates good understanding of plan of care and treatment. The above goals and plan of care were discussed and agreed upon by patient/family. SUBJECTIVE: Alem Sheehan is a 72 year old male seen today for R reverse TSA revision after a screw broke and caused an infection. Pt and come in today noting an increase in blood in his PICC line, which is abnormal to them. No s/s consistent with infection like fever, feeling unwell, etc. Shoulder extremely painful to move right now and noticeable bruising remains Functional Limitations: lifting, physical activities, sleeping, reaching behind back, reaching overhead, use hand with arm at shoulder level, dressing, grooming Prior Level of Function: Independent without limitations Intake Information: Prescription present Previous Treatment: Surgery , Physical Therapy Pain: Pain Pain Level: 8 Pain Location: Shoulder - Right Description: Sore, Aching, Throbbing, Sharp Frequency: Continuous PROMIS Scales Higher is Better 09/27/2022 09/24/2022 04/25/2022 Phys Func - Score 24 (severe dysfunction) 24 (severe dysfunction) 38 (moderate dysfunction) Phys Func - Percentile 0 % 0 % 12 % Self-Eff Symptom - Score 37 (Low) 34 (Low) 42 (Average) Self-Eff Symptom - Percentile 10 % 5 % 21 % T-scores: mean of general population = 50. 5 points is clinically meaningfully difference Percentiles provide an indication of how the patient's score ranks in relation to the general population. Higher percentile rankings indicate better function/quality of life. 50th percentile is the average of the general population and indicates half of respondents had a worse score. OBJECTIVE MEASURES WITH LEVEL OF FUNCTION: Shoulder Observations R Shoulder Presents with: Swelling, Ecchymosis, Warmth, Incision, Comments Comment: PICC like portal UE AROM R Shoulder Flex: 20 Degrees R Shoulder ABduction: 30 Degrees UE PROM R Shoulder Flex: 30 Degrees R Shoulder ABduction: 40 Degrees R Shoulder External Rotation: 0 Degrees UE and Cervical Strength R UE Strength: deferred today due to acuity of surgery and pain/difficulty with major AROM limitations Education: TREATMENT: PT Treatment Interventions: Therapeutic Exercise Evaluation Therapeutic Exercise: 1: *Shoulder pulleys into flexion 5x10 2: *Wand ER 5x10 3: *Supported shoulder pendulums in tiny circles 5x10 cw/ccw Skilled Intervention: Patient was educated in proper exercise technique and purpose for exercises. Skilled judgment was provided in selection of appropriate interventions. Provided written instruction for home exercise program to facilitate proper performance and compliance. Correct performance of therapeutic exercises was facilitated with verbal, visual, and tactile cuing. Billing * Evaluation Low Complexity: 1 Unit Therapeutic Exercise Treatment Minutes: 10 Total Treatment Time Minutes (timed/untimed): 35 Tab Wen PT documented in this encounter [facility] 09-29-2022 Miscellaneous Notes Patient has been identified by name and date of : Yes Requested Prescriptions Pending Prescriptions Disp Refills metFORMIN (GLUCOPHAGE) 1,000 mg tablet 180 tablet 1 Sig: Take 1 tablet by mouth twice daily with meals. atorvastatin (LIPITOR) 40 mg tablet 90 tablet 1 Sig: Take 1 tablet by mouth daily at bedtime. For cholesterol. RX INSTRUCTIONS: Follow up scheduled in October Divya Pickens LPN documented in this encounter [facility] 09-28-2022 Miscellaneous Notes Patient called and notified. Mckenzie Morales CMA September 28, 2022 9:38 AM Please call and let patient know we have some growth of a bacteria called propionibacterium acnes from one of his samples from surgery. This could just be a contaminant but will err on side of caution of treating. Doxycycline should have been having an effect on this but best choice is amoxicillin or a similar drug. I'll change him to amoxicillin 1 gram TID for now. Let's plan to keep the 10/05 appt and can talk further when we see if other samples have come up postiive. documented in this encounter [facility] 09-26-2022 Miscellaneous Notes Images from the original note were not included. Last refill 09-22-22 Alem Sheehan [facility] Please refill the Oxycodone 5 mg tablets at [facility] on [address] in [place]. Thank you Alem documented in this encounter [facility] 09-22-2022 Note HNO ID: [id number] Author: Shabnam Ramires RN Service: Care Management Author Type: Registered Nurse Type: Care Mgt Progress Note Filed: 09/22/2022 1:51 PM Note Text: CARE MANAGEMENT PROGRESS NOTE SERVICE DATE: 09/22/2022 SERVICE TIME: 1350 LOS: 2 days IMM Follow Up Copy Given: Yes Copy given to:: Patient Method: In Person SIGNATURE: Shabnam Ramires RN PATIENT NAME: Alem Burgessill DATE: September 22, 2022 TIME: 1:50 PM PAGER/CONTACT #: [phone] [facility] 09-22-2022 Note HNO ID: [id number] Author: Julia Ayers APRN.CNP Service: Orthopaedic Surgery Author Type: Nurse Practitioner Type: Plan of Care Filed: 09/22/2022 1:00 PM Note Text: Dressing saturated. Incision is well approximated with eduardo. Slow oozing from distal end of incision noted. Prevena wound vac applied with good seal. Patient instructed on care/use. All questions and concerns addressed. Discharge instructions provided. [facility] 09-22-2022 Note HNO ID: [id number] Author: Jarocho Lora MD Service: Orthopaedic Surgery Author Type: Resident Type: Progress Notes Filed: 09/22/2022 6:32 AM Note Text: ORTHOPAEDIC SURGERY DAILY PROGRESS NOTE ASSESMENT: 72 year old M POD #1 s/p revision R rTSA. PLAN: -management per Ortho -dressing/splints status: Mepilex x 10 days -NWB RUE -Sling/swathe RUE -pain control -DVT ppx: Lovenox 30 mg BID for PE ppx , will transition to Eliquis -post-operative antibiotics: Vanc x 24 hrs then Doxy BID, adjustments per ID -diet: regular diet -Heme onc following: recommend lovenox with transition to eliquis -ID following: Continue Doxy -Follow-up intra-op cultures: NGTD x 1 -disposition: Anticipate DC home on Doxy when ok with ID INTERVAL HPI: No acute events overnight. Pain controlled. Denies fevers and chills. Denies chest pain and shortness of breath. OBJECTIVE: BP 111/73 Pulse 65 Temp 36.3 ?C (97.3 ?F) (Axillary) Resp 18 SpO2 94% Exam: General: NAD, Aox3 Right Upper Extremity: Dressing clean, dry and intact. Compartments soft and compressible. SILT Ax/M/U/R distributions. Intact AIN/PIN/M/U/R motor function. 2+ radial pulse. BCR. Recent Labs 09/20/22 2122 CREAT 0.90 BUN 16 NA 136 K 4.4 CHLOR 103 CO2 22 ANION 11 GLUC 295* CA 9.1 WBC 11.18* HB 14.1 HCT 44.3 PLT 187 COAGS: APTT 24.5 08/02/2021 PT INR 1.0 08/02/2021 SED RATE/CRP: WSR 2 08/18/2022 WSR Test sent to [facility]. 12/28/2020 CRP <0.3 08/18/2022 CRP <0.3 08/02/2021 CRP Test sent to [facility]. 12/28/2020 SIGNATURE: Diaz Lora MD PATIENT NAME: Alem Sheehan DATE: 09/22/22 TIME: 5:56 AM PAGER/CONTACT #: [phone] [facility] 09-21-2022 Miscellaneous Notes I spoke with DANAE Dumont, at and she will reference Dr. Aparicio's previous plan regarding future anticoagulation needs (10/18/2021). They also have consulted Dr. Travis at since Dr. Aparicio has retired. Virginia Coronado LPN Advise community youth secretary/medical team patient will need referral to vascular medicine. Ezequiel Layne DO 09/20/2022- REVISION JOINT TOTAL SHOULDER (Right). H/O- History of provoked pulmonary embolism; an elevated factor VIII level. Developed after previous shoulder surgery in 2020. Completed 6 months of anticoagulants. Followed with Hematology. Seen by Dr. Aparicio 10/18/2021- PLAN: -No further treatment is needed. Continue aspirin daily. -Consider using low molecular heparin or apixaban for DVT prophylaxis after surgery in the future. (I recommend 6 - 8 weeks of apixaban after total knee replacement surgery). Patient is currently on Lovenox 30 mg BID while in hospital. Virginia Coronado LPN parcel post clerk from [facility] called in. Patient is inpatient at [facility] and they want patient to be seen for PE/DVT/HISTORY OF PE AFTER SURGERY. Patient was seen by Dr. Aparicio last October. Please advise on scheduling. Additionally, community youth secretary will see if someone can assess him there. Charlee Her documented in this encounter [facility] 09-21-2022 Note HNO ID: [id number] Author: Julia Ayers APRN.DANAE Service: Orthopaedic Surgery Author Type: Nurse Practitioner Type: Plan of Care Filed: 09/21/2022 1:41 PM Note Text: Dressing to Right shoulder saturated. Incision is well approximated with eduardo. Minimal oozing of bloody drainage. New mepilex applied. Re-ordered sling and swath since his I saturated with blood. Patient states his father of unprovoked PE at 72 years old. Will add this to social hx. Told him to discuss this with Hematology as there is possibility of MTHFR. Patient has had an elevated factor 8 level of [address] Aparicio's office. See Dr. Devine plan below: awaiting hematology consult with Dr. Kia Huggins as Dr Aparicio has retired. 09/20/2022- REVISION JOINT TOTAL SHOULDER (Right). H/O- History of provoked pulmonary embolism; an elevated factor VIII level. Developed after previous shoulder surgery in 2020. Completed 6 months of anticoagulants. Followed with Hematology. Seen by Dr. Aparicio 10/18/2021- PLAN: -No further treatment is needed. Continue aspirin daily. -Consider using low molecular heparin or apixaban for DVT prophylaxis after surgery in the future. (I recommend 6 - 8 weeks of apixaban after total knee replacement surgery). [facility] 09-21-2022 Note HNO ID: [id number] Author: Jarocho Lora MD Service: Orthopaedic Surgery Author Type: Resident Type: Progress Notes Filed: 09/21/2022 6:09 AM Note Text: ORTHOPAEDIC SURGERY DAILY PROGRESS NOTE ASSESMENT: 72 year old M POD #1 s/p revision R rTSA. PLAN: -management per Ortho -dressing/splints status: Mepilex x 10 days -NWB RUE -Sling/swathe RUE -pain control -DVT ppx: Lovenox 30 mg BID for PE ppx until heme/onc eval -post-operative antibiotics: Vanc x 24 hrs then Doxy BID, adjustments per ID -Post-op R shoulder XR with stable ortho hardware -diet: regular diet -consults: ID, Medicine, Heme/onc -Follow-up intra-op cultures -disposition: Pending workup/ID recs INTERVAL HPI: No acute events overnight. Pain controlled. Denies fevers and chills. Denies chest pain and shortness of breath. OBJECTIVE: BP 124/81 Pulse 69 Temp 36.5 ?C (97.7 ?F) (Axillary) Resp 18 SpO2 97% Exam: General: NAD, Aox3 Right Upper Extremity: Dressing clean, dry and intact. Compartments soft and compressible. SILT Ax/M/U/R distributions. Intact AIN/PIN/M/U/R motor function. 2+ radial pulse. BCR. Recent Labs 09/20/222121 CREAT 0.90 BUN 16 NA 136 K 4.4 CHLOR 103 CO2 22 ANION 11 GLUC 295* CA 9.1 WBC 11.18* HB 14.1 HCT 44.3 PLT 187 COAGS: APTT 24.5 08/02/2021 PT INR 1.0 08/02/2021 SED RATE/CRP: WSR 2 08/18/2022 WSR Test sent to [facility]. 12/28/2020 CRP <0.3 08/18/2022 CRP <0.3 08/02/2021 CRP Test sent to [facility]. 12/28/2020 SIGNATURE: Diaz Lora MD PATIENT NAME: Alem Sheehan DATE: 09/21/22 TIME: 5:56 AM PAGER/CONTACT #: [phone] [facility] 09-20-2022 Note HNO ID: [id number] Author: Miki Patel MD Service: Anesthesiology Author Type: Physician Type: Anesthesia Procedure Notes Filed: 09/20/2022 3:59 PM Note Text: ANESTHESIOLOGY PROCEDURE NOTE Peripheral Nerve Block General Information Procedure Start Time/Medication Administration: 09/20/2022 3:00 PM Procedure End time: 09/20/2022 3:05 PM Patient location during procedure: OR Timeout Performed Pre-procedure: timeout performed Consent Obtained: Yes 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: 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 Reason for block: post-op pain management/at surgeon's request Staffing Performed by: anesthesiologist Preparation Sterility Preparation: hand hygiene performed prior to procedure, sterile gloves, drapes, and procedure tray, surgical cap used, mask used, sterile drape used during line insertion, skin prep agent completely dried prior to procedure Site Prep: Chloraprep Procedure Details Patient Position: supine Monitoring: Pulse OX Block Type Approach: interscalene Laterality: right Injection Technique: single-shot Ultrasound Guided: Yes Image in Chart: no Needle Needle Type: blunt and echogenic Needle Gauge: 20 G Needle Length: 50 mm Needle Localization: ultrasound Assessment Injection assessment: negative aspiration, no paresthesia on injection, incremental injection and local visualized surrounding nerve on ultrasound Medications Administered ropivacaine (PF) 5 mg/mL (0.5 %) injection (NAROPIN) - peripheral nerve block 25 mL - 09/20/2022 3:00:00 PM midazolam injection (VERSED) - INTRAVENOUS 2 mg - 09/20/2022 3:00:00 PM SIGNATURE: Miki Patel MD PATIENT NAME: Alem Sheehan DATE: September 20, 2022 TIME: 3:58 PM CSN: [id number] [facility] 09-20-2022 Note HNO ID: [id number] Author: Denise Turner APRN.CERTIFIED TEACHER ASSISTANT Service: Anesthesiology Author Type: Nurse Deputy Chief Magistrate Type: Anesthesia Procedure Notes Filed: 09/20/2022 3:27 PM Note Text: ANESTHESIOLOGY PROCEDURE NOTE Airway General Information Procedure Start Time/Medication Administration: 09/20/2022 3:05 PM Procedure End Time: 09/20/2022 3:06 PM Patient location during procedure: OR Consent Obtained: Yes 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: arm band Staffing CERTIFIED TEACHER ASSISTANT: Denise Turner APRN.CERTIFIED TEACHER ASSISTANT Performed by: CERTIFIED TEACHER ASSISTANT Indications and Patient Condition Indications for airway management: anesthesia Preoxygenated: yes anesthesia circuit Patient position: sniffing Method: asleep Final Airway Details Final airway type: endotracheal airway Final Endotracheal Airway: ETT Cuffed: yes Successful intubation technique: direct laryngoscopy Endotracheal tube insertion site: oral Blade: Donald Blade size: #4 ETT size (mm): 7.5 Measured from: lips Measurement (cm): 24 Placement verified by: chest auscultation and capnometry Cormack-Lehane Classification: grade IIa - partial view of glottis SIGNATURE: Denise Turner APRN.CRNA PATIENT NAME: Alem Sheehan DATE: September 20, 2022 TIME: 3:25 PM CSN: [id number] [facility] 09-08-2022 Miscellaneous Notes This patient gave consent to this Medical Advice Message and is aware that it may result in a bill to their insurance, as well as the possibility of receiving a bill for a copay and/or deductible. They are an established patient, but are not seeking information exclusively about a problem treated during an in person or video visit in the last seven days. I did not recommend an in person or video visit within seven days of my reply. See the [place] message reply for my assessment and plan. I spent a total of 5 minutes reviewing the patient's prior medical records and current request for medical advice, prescribing medications or ordering tests (if applicable), replying to the patient, and documenting the encounter. documented in this encounter [facility] 09-06-2022 History and physical note HISTORY AND PHYSICAL EXAMINATION SERVICE DATE: 09/05/2022 SERVICE TIME: 1:18 PM PRIMARY CARE PHYSICIAN: Roberto Carlos Mullen MD REASON FOR VISIT: Alem Sheehan is a 72 year old male who is scheduled for Procedure(s) with comments: REVISION JOINT TOTAL SHOULDER (Right) - INTERSCALENE at the request of Dr. Viry Bales for. My final recommendation will be communicated back to the requesting physician by way of shared medical record or letter. 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, Left Bilateral Carotid Artery Stenosis Complete Tear of Right Rotator Cuff Cad (Coronary Artery Disease) History of Aortic Valve Replacement Fatty Liver S/P Reverse Total Shoulder Arthroplasty, Right Multiple Subsegmental Pulmonary Emboli Without Acute Cor Pulmonale (Hcc) History of Thyroid Nodule History of Dvt (Deep Vein Thrombosis) First Degree Atrioventricular Block 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 Hiatal Hernia Other Reduced Mobility History of Diverticulitis Personal History of Urinary Calculi Presence of Aortocoronary Bypass Graft Stenosis of Lumbosacral Spine Unspecified Thoracic, Thoracolumbar and Lumbosacral Intervertebral Disc Disorder Pre-Op Examination COVID-19 Immunization Status COVID-19 VACCINE (Series Information) Completed 04/29/2022 Imm Admin: COVID-19 booster vaccine, age 12+ yr, bivalent (MODERNA) 04/26/2021 Imm Admin: COVID-19 vaccine, full dose (MODERNA) 08/26/2020 Imm Admin: COVID-19 vaccine, full dose (MODERNA) Only the first 3 history entries have been loaded, but more history exists. CHIEF COMPLAINT: The reason for this visit is to perform a comprehensive review of the patients past medical history, assess their current health status and obtain any additional testing required based on anesthesia guidelines. To assess and identify potential anesthesia problems, particularly those that may suggest potential complications or contraindications to the planned procedure. HPI: Patient presents for Procedure(s) with comments: REVISION JOINT TOTAL SHOULDER (Right) - INTERSCALENE. Patient originally had surgery in 2020 on same shoulder. Patient states that he was told that a screw broke off and needed to be repaired. Patient also states that surgeon wanted to look for bacteria while he was opened up. Pain is 4/10 during PAT appointment. Patient denies any other problems or concerns at this time. Risks and benefits of the procedure discussed by Surgeon and patient agreed to proceed with planned procedure. REVIEW OF SYSTEMS: General: No weight loss, malaise or fevers. Negative for: unintentional weight change, malaise and fever. Neurological: Negative for: seizures and strokes. Respiratory: Positive for: asthma, COPD, obstructive sleep apnea and CPAP/BiPAP compliant. Negative for: URI < 2 weeks. Cardiovascular: Positive for: CAD, DVT/PE (after previous shoulder surgery in 2020), hyperlipidemia and hypertension Patient's last office visit with wood heel flap inserter, Margo Hannah, PRINTED CIRCUIT BOARD [employer] DRAFTSMAN, was 07/11/2022. GI: Negative for: GERD and liver disease. : Negative for: frequent urination, hematuria and urgency. Endocrine: Positive for: diabetes mellitus. Patient's diabetes mellitus is controlled by oral agents. Negative for: hyperthyroidism. Hematology: No history of bleeding or clotting disorder. Patient is not taking anti-coagulation or platelet medications. No history of hematological symptoms or problems. Oncology: No history of CA metastasis, chemo within 30 days, or radiotherapy within 90 days. No history of oncological symptoms or problems. Psych: No history of psychiatric symptoms or problems. Musculoskeletal: Positive for: joint pain. Skin: Negative for lesions, rash and itching. 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 Diaphragmatic hernia without mention of obstruction or gangrene Esophagitis, unspecified Fatty liver Generalized anxiety disorder Anxiety, Generalized Heartburn 02/27/2017 History of aortic valve replacement 06/12/2014 SIVAKUMAR (obstructive sleep apnea) Other and unspecified hyperlipidemia PMH - PAST MEDICAL HISTORY OF nodules in left lung Profound impairment, one eye, impairment level not further specified left Pulmonary embolism (HCC) 2020 Restless legs syndrome (RLS) Right shoulder pain Type II or unspecified type diabetes mellitus without mention of complication, not stated as uncontrolled 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ty 02/17/2017 Added automatically from request for surgery [id number] Umbilical hernia 2019 Unspecified asthma(493.90) Unspecified essential hypertension Unspecified sleep apnea PAST SURGICAL HISTORY Procedure Laterality Date ARTHRP KNE CONDYLE&PLATU MEDIAL&LAT COMPARTMENTS Left 12/25/2019 ASCENDING AORTA GRAFT W/BYPASS W/CORON REC 2014 COLONOSCOPY FLX DX W/COLLJ SPEC WHEN PFRMD 02/02/2005 Colonoscopy-repeat in COLONOSCOPY FLX DX W/COLLJ SPEC WHEN PFRMD 04/04/2016 DIAGNOSTIC ARTHROSCOPY SHOULDER +- SYNOVIAL BX Right 01/17/2014 EGD TRANSORAL BIOPSY SINGLE/MULTIPLE 04/23/2009 EYE SURGERY HX Left Eye removed from trauma I&D ABSC SMPL OR SGL Right 07/23/2008 Groin KNEE ARTHROSCOPY Right 05/23/2014 NEUROPLASTY &/TRANSPOSITION ULNAR NERVE ELBOW Right 03/01/2017 RECONSTRUCTION ROTATOR CUFF AVULSION CHRONIC Right 01/17/2014 RPR UMBILICAL HRNA 5 YRS/> REDUCIBLE 04/08/2020 SHOULDER SURGERY HX Right 2020 Right reverse total shoulder arthroplasty, open biceps tenodesis VALVULOPLASTY - AORTIC VALVE 2015 WRIST SURGERY HX Left Mass removal FAMILY HISTORY Problem Relation Age of Onset Asthma Mother Stroke Father blood clot other (Pulmonary embolism) Father Arthritis Sister Lupus DVT Brother Diabetes Brother Hypertension Brother Stroke Maternal Grandmother Heart Maternal Grandmother Heart Maternal Grandfather Heart Paternal Grandmother Stroke Paternal Grandmother Arthritis Daughter Sgrogren's Breast Cancer Maternal Aunt Cancer Maternal Aunt glioblastoma Social History Tobacco Use Smoking status: Never Smokeless tobacco: Never Vaping Use Vaping Use: Never used Substance Use Topics Alcohol use: No Drug use: No Prior to Admission medications as of 09/06/22 1255 Medication Sig Last Dose Taking magnesium oxide (MAG-OX) 400 mg (241.3 mg magnesium) tablet Take 1 tablet by mouth once daily. Taking Yes carvedilol (COREG) 6.25 mg tablet Take 1 tablet by mouth twice daily. Taking Yes BREO ELLIPTA 200-25 mcg/dose inhaler Inhale 1 Inhalation as instructed once daily. Taking Yes dulaglutide (TRULICITY) 1.5 mg/0.5 mL pen injector Inject 1.5 mg subcutaneously one time a week. Inject once per week. Discard Pen After Taking Yes buPROPion XL (WELLBUTRIN XL) 150 mg 24 hr tablet Take 1 tablet by mouth once daily. Taking Yes losartan (COZAAR) 100 mg tablet Take 1 tablet by mouth once daily. Taking Yes amoxicillin (POLYMOX, AMOXIL) 500 mg capsule 4 capsules 1 hours prior to dental procedure. Taking Yes fluticasone (FLONASE) 50 mcg/actuation nasal spray Use 2 Sprays in each nostril once daily. Taking Yes atorvastatin (LIPITOR) 40 mg tablet Take 1 tablet by mouth daily at bedtime. For cholesterol. Taking Yes metFORMIN (GLUCOPHAGE) 1,000 mg tablet Take 1 tablet by mouth twice daily with meals. Taking Yes clotrimazole-betamethasone (LOTRISONE) cream Apply to affected area twice daily. Patient taking differently: Apply to affected area twice daily. Twice daily as needed Taking Yes amLODIPine (NORVASC) 10 mg tablet Take 1 tablet by mouth once daily. Taking Yes aspirin, enteric coated (ASPIRIN, ENTERIC COATED) 81 mg EC tablet Take 2 tablets by mouth once daily. Taking Yes albuterol HFA (VENTOLIN HFA) 90 mcg/actuation inhaler Inhale 2 Puffs as instructed every 4 hours as needed for wheezing/shortness of breath. Taking Yes ondansetron (ZOFRAN) 4 mg tablet Take 1 tablet by mouth every 8 hours as needed. Taking Yes pramipexole (MIRAPEX) 0.25 mg tablet Take 1 tablet by mouth once daily. Taking Yes Cholecalciferol, Vitamin D3, 1,000 unit cap Take 1 capsule by mouth once daily. Patient taking differently: Take 1,000 Units by mouth once daily. Takes 400 MG tablet by mouth daily Taking Yes therapeutic multivitamin (THERA VITAMIN) tablet Take 1 tablet by mouth daily with breakfast. Taking Yes mupirocin (BACTROBAN) 2 % ointment Apply twice daily to each nostril for five days pre-operatively. Start on 09/15/2022. blood sugar diagnostic (ONETOUCH VERIO TEST STRIPS) test strip Test blood sugar(s) 2 times daily. Dx: E11.9 Cholecalciferol, Vitamin D3, 25 mcg (1,000 unit) cap Take 1 capsule by mouth once daily. Patient not taking: Reported on 09/06/2022 Not Taking albuterol (PROVENTIL) 2.5 mg /3 mL (0.083 %) nebulizer solution Use 2.5 mg via nebulizer. Patient not taking: Reported on 09/06/2022 Not Taking lancets (ONE TOUCH DELICA) 33 gauge misc Test blood sugar(s) 2 daily. Blood-Glucose Meter (ONETOUCH VERIO SYSTEM) [facility] Dispense One Kit - Verio Meter Kit. Test blood sugar twice daily. Dx: E11.9. Insulin-no. CPAP As directed No medication comments found. ALLERGIES Allergen Reactions Seasonal Allergies Other: See Comments SOB due to tree pollen, dog dander, weeds, cow dander,molds, pine pollen. Erythromycin Diarrhea Hctz [Amiloride-Hyd* Other: See Comments Hypercalcemia Oxycodone GI Upset Tramadol GI Upset Objective PHYSICAL EXAM: General: alert and oriented and healthy appearance. Pertinent negatives noted - not distressed. Skin: normal color, no rash or lesions. HEENT: EOM intact and pupils equal round. Cardiovascular: Pulse characterized as regular.Positive for murmur. Pertinent negatives noted - no rub and no gallop. Findings of a 2/6 grade heart murmur with a quality, and a location of: . Respiratory: normal breath sounds, no wheezes or crackles. No chest wall deformity or tenderness. Abdomen: bowel sounds present. Extremities: no deformity, no edema or tenderness, no joint swelling or clubbing. Neurological: normal cognition and motor skills. Positive for abnormal gait and limb weakness. Limb weakness located right UE. PAIN ASSESSMENT: Pain Pain Level: 4 VITALS: BP 147/92 Pulse 71 Temp 97.7 Resp 16 Ht 6' 2 (1.88m) Wt 223 lb 6.4 oz (101.3kg) SpO2 96% BMI 28.67 kg/(m^2). Diagnostic tests reviewed for today's visit: Lab Value Units Date High Low HB 15.5 g/dL 08/18/2022 17.0 13.0 HCT 49.8 % 08/18/2022 51.0 39.0 WBC 8.60 k/uL 08/18/2022 11.00 3.70 PLT 230 k/uL 08/18/2022 400 150 NA 140 mmol/L 06/07/2022 144 136 K 3.9 mmol/L 06/07/2022 5.1 3.7 GLUC 130 mg/dL 06/07/2022 99 74 BUN 19 mg/dL 06/07/2022 24 9 CREAT 0.91 mg/dL 06/07/2022 1.22 0.73 PTSEC No results within date range. INR No results within date range. APTT No results within date range. ALT 40 U/L 06/07/2022 54 10 AST 27 U/L 06/07/2022 40 14 TBILI 0.4 mg/dL 06/07/2022 1.3 0.2 TSH No results within date range. Lab Value Units Date High Low HCGQT No results within date range. UHCG No results within date range. HCG, BODY* No results within date range. Lab Value Units Date High Low ABORHD No results within date range. ABSCREEN No results within date range. Hemoglobin A1C (%) Date Value 06/07/2022 5.4 05/19/2022 5.9 06/22/2021 13.1 02/19/2021 7.2 11/13/2020 7.1 07/08/2020 8.2 03/11/2020 7.0 Hemoglobin A1C (POCT) (%) Date Value 11/19/2021 6.0 No results found for this or any previous visit (from the past 8760 hour(s)). Recent Results (from the past 58710 hour(s)) ECHO Collection Time: 01/06/22 10:42 AM Impression CONCLUSIONS: - Technically difficult exam due to body habitus. - Exam indication: s/p AV repair, ascending aortic repair - The left ventricle is normal in size. Left ventricular systolic function is normal. EF = 61 5% (2D biplane) - The right ventricle is normal in size. Right ventricular systolic function is normal. - The visualized aorta is borderline dilated with a maximal dimension of 3.9 cm. - Bicuspid aortic valve. S/P aortic valve repair. There is no aortic valve regurgitation. The peak gradient is 37 mmHg, the mean gradient is 23 mmHg and the dimensionless valve index is 0.25. Prior pk/mn gradients were 33/19 mmHg. - Exam was compared with the prior CC echocardiographic exam performed on 05/26/2020, no significant change. * * * Final * * * Hematology Note 10/18/2021 -No further treatment is needed. Continue aspirin daily. -Consider using low molecular heparin or apixaban for DVT prophylaxis after surgery in the future. (I recommend 6 - 8 weeks of apixaban after total knee replacement surgery) -Continue age-appropriate cancer screening and follow-up with PCP. Assessment Patient has the following medical conditions which may affect celestina-operative course: Pre-op examination see note for medical conditions which may affect celestina-operative course that were addressed at today's visit. Essential hypertension Amlodipine, Carvedilol, and Losartan. Instructed to take DOS. Hyperlipidemia Atorvastatin. Lipid panel 05/19/22. Diabetes mellitus type 2, controlled, without complications (HCC) Trulicity weekly, Metformin. Monitors at home blood sugars. Instructed to follow prescriber and surgeon's recommendation for DOS. Multiple subsegmental pulmonary emboli without acute cor pulmonale (HCC) Developed after previous shoulder surgery in 2020. Completed 6 months of anticoagulants. Followed with Hematology. SIVAKUMAR on CPAP CPAP compliant. Instructed to bring DOS. CAD (coronary artery disease) Aspirin. EF 61-66%. ECHO results in [facility] 01/06/22. Follows with cardio. Last OV 07/11/22 History of aortic valve replacement Aortic valve repair 2014, ascending aorta graft replacement 2014 Beal Activity Status Index: METS: Climb a flight of stairs or walk up a hill (5.50 METs) DASI Score: 5.5 Patient denies any chest pain or undue shortness of breath with the above physical activity. ARISCAT Score: Age: 51-80 Preoperative SpO2: >=96% Respiratory infection in the last month: No Preoperative anemia: No Surgical incision: peripheral Duration of surgery: <2 hrs Emergency procedure: No ARISCAT Score: 3 ANESTHESIA FINDINGS: Intubation History: No history of difficult intubation Significant Anesthesia Considerations: none Airway History: No history of difficult airway I - PHYSICAL EVALUATION AIRWAY Patient intubated: No. DENTAL Dental findings: teeth intact. II - ANESTHESIA PLAN Anesthetic Plan: general Beta Hue Monitoring Plan Post Procedure Analgesic Plan Prepared for Surgery: CONSULTS: The following consults have been initiated at this time: cardiology (scanned in [facility]) and primary care/internal medicine (scanned in [facility]). Planned Anesthetic: general The Following Tests/Procedures Have Been Initiated: Orders Placed This Encounter BASIC METABOLIC PNL Standing Status: Future Standing Expiration Date: 11/06/2022 Type and Screen, 30 day Standing Status: Future Standing Expiration Date: 11/06/2022 Order Specific Question: [facility] Planned Surgery or Procedure: Answer: [facility] BRE[facility] ELLIPTA 200-25 mcg/dose inhaler Sig: Inhale 1 Inhalation as instructed once daily. DISCONTD: mupirocin (BACTROBAN) 2 % ointment Sig: Apply twice daily to each nostril for five days pre-operatively. Start on 09/15/2022. Dispense: 22 g Refill: 0 mupirocin (BACTROBAN) 2 % ointment Sig: Apply twice daily to each nostril for five days pre-operatively. Start on 09/15/2022. Dispense: 22 g Refill: 0 Implantable Devices: hardware in R shoulder, L TKA, midsternal cardiac wires from previous surgery The Following Tests/Procedures Have Been Initiated: Orders Placed This Encounter BASIC METABOLIC PNL Standing Status: Future Standing Expiration Date: 11/06/2022 Type and Screen, 30 day Standing Status: Future Standing Expiration Date: 11/06/2022 Order Specific Question: [facility] Planned Surgery or Procedure: Answer: [facility] BRE[facility] ELLIPTA 200-25 mcg/dose inhaler Sig: Inhale 1 Inhalation as instructed once daily. DISCONTD: mupirocin (BACTROBAN) 2 % ointment Sig: Apply twice daily to each nostril for five days pre-operatively. Start on 09/15/2022. Dispense: 22 g Refill: 0 mupirocin (BACTROBAN) 2 % ointment Sig: Apply twice daily to each nostril for five days pre-operatively. Start on 09/15/2022. Dispense: 22 g Refill: 0 - Verbal order given to Michelle Kaur Assessment/Plan Infection of total joint prosthesis, initial encounter (HCC) [T84.50XA] PLAN Planned Procedure: Procedure(s) with comments: REVISION JOINT TOTAL SHOULDER (Right) - INTERSCALENE I spent a total of 50 minutes on the date of the service which included preparing to see the patient, [id number] patient care, completing clinical documentation, obtaining and/or reviewing separately obtained history, performing a medically appropriate examination, counseling and educating the patient/family/caregiver, and ordering medications, tests, or procedures. Instructions Given to Patient: Instructions located in the after visit summary. Patient given verbal and written preop instructions and voices comprehension and compliance. SIGNATURE: Shi Eldridge APRN.CNP PATIENT NAME: Alem Sheehan DATE: September 05, 2022 TIME: 8:00 PM PAGER/CONTACT #: documented in this encounter [facility] 09-05-2022 Instructions Shi Eldridge APRN.CNP - 09/05/2022 9:47 PM EDT PATIENT PREOPERATIVE INSTRUCTIONS Your surgeon has scheduled for your procedure at this surgery center: [facility]: [phone], [address] [id number] Please enter through the main entrance and proceed to the blue elevators. The surgery [facility] is located to the left of the blue elevator. Please read below carefully for your personalized instructions. Arrival Time for Surgery: DATE: 09/20/2022 - To obtain your ARRIVAL TIME for surgery, call your physician's office the day before your surgery. - If your surgery is scheduled for Monday, call the Monday before. Your surgeon's electric frying pan repairer will tell you what time to call the office. - Please be aware that emergency situations arise, which may delay or change your surgical time. If this happens, we will notify you as soon as possible and regret any inconvenience. Requirement for Vaccinations : 72-hour period between getting vaccine and date of surgery. Dietary Restrictions: - Nothing to eat after midnight. - You may have 12 ounces of clear liquids ( water, Gatorade, apple juice, carbonated beverage, clear tea or black coffee) until 4 hours before your surgery. This is important because if you do, your surgery may have to be cancelled Blood Thinning Medications: - Stop NSAIDS (Ibuprofen, Advil, Aleve, Motrin, Celebrex, Mobic, etc.) 7 days before surgery, as directed by your surgeon. You may take Tylenol (Acetaminophen) or any of your pain medications that do not contain aspirin or NSAIDS as needed. IF YOU TAKE ANY OF THE FOLLOWING BLOOD THINNERS, PLEASE CONTACT YOUR SURGEON AND THE PHYSICIAN WHO PRESCRIBES IT FOR YOU IN ORDER TO GET PERIOPERATIVE INSTRUCTIONS SOON POSSIBLE. BLOOD THINNERS: Aspirin , Coumadin, Plavix, Eliquis, Pradaxa, Xarelto, Lovenox, Brilinta, Effient, Savaysa, Arixtra, etc - Stop Vitamin E, fish oil, multivitamins, Marijuana, CBD oil and other over the counter herbals and dietary supplements 7 days before surgery. -This would not apply to cancer patients who are prescribed Marinol or any other prescription form on marijuana or CBD. -exception Dr. Mock and Dr. Plummer want their patients npo at midnight. Medications: Approved medications to take the morning of surgery with a sip of water: BP, HCTZ, Heart, thyroid, psych, seizure, and pain medications excluding NSAIDS. Use inhalers as prescribed. Please bring inhalers. Diabetes Please follow up with the provider that manages your diabetes and how to prepare you for surgery. If you are taking the following medications for Type 2 diabetes: Canagliflozin (INVOKANA), dapagliflozin (FARXIGA), and empagliflozin (JARDIANCE) should each be discontinued at least 3 days before scheduled surgery. Ertugliflozin (STEGLATRO) should be discontinued at least four days before scheduled surgery. If you have a stimulator, implant or pump that requires a remote please bring the remote with you day of surgery. Erectile dysfunction: If you take any medications for erectile dysfunction- Cialis (Tadalafil), Levitra, Staxyn, (Vardenafil), Viagra (Sildenenafil). Please do not take these for 48 hours before surgery. Pain Medications: Tylenol for pain as needed and if you are not allergic to. If you start any new medications after today's visit, please contact the surgeon's office. Important Reminders: - If you use CPAP/BIPAP, bring the machine with you to the surgery center. - If you are prescribed inhalers for breathing, continue using them AND bring them to the surgery center. - Candy, mints, gum and tobacco products are NOT permitted the morning of surgery. - Hearing aids, dentures and glasses may be worn the morning of surgery. - NO jewelry, body piercings, makeup, hairpins or contacts are to be worn the day of surgery. -Oral hygiene and a shower or bath is required the evening before or the morning of surgery. Use the Hibiclens body wash supplied to you along with the instruction. - NO lotion, creams, powders or deodorants on the skin the day of surgery -Wear loose, comfortable clothing that will accommodate bandages. -Your length of stay will be determined by your surgeon - You will need to have someone else (Family or friend) drive you home once discharged from the hospital. You are not allowed to drive yourself home after surgery. - YOU MUST HAVE A RESPONSIBLE JOB ANALYSIS MANAGER TAKE YOU HOME. A MUTUAL FUNDS AGENT, CAB OR UBER JOB ANALYSIS MANAGER CANNOT BE MADE A RESPONSIBLE JOB ANALYSIS MANAGER. - You cannot stay in a hotel alone after outpatient surgery. You will not be permitted to have your surgery, if you do not have someone to take care of you. If you develop symptoms such as a fever, cold, or flu, or have other changes to your health within TWO DAYS of scheduled surgery or the morning of surgery, please contact the surgery center above. Personal Belongings: - Leave ALL valuables and money at home or with family members. - You will need a form of ID and insurance card to check in the morning of surgery. - You will have to wear a hospital gown during your stay but if you wish to bring undergarments for after surgery you may. Hibiclens provided Shi Eldridge APRN.CNP 09/05/22 documented in this encounter [facility] documented as of this encounter (statuses as of 10/20/2022) [facility]03-27-2023 History of Past illness Narrative* Problem Noted Date Resolved Date Pre-op examination 09/05/2022 10/19/2022 Last Assessment & Plan: see note for medical conditions which may affect celestina-operative course that were addressed at today's visit. Depressive disorder 04/21/2022 04/21/2022 Postoperative pneumonia 04/21/2022 04/21/20 22 Viral infection 04/21/2022 04/21/2022 Lumbosacral spondylosis with radiculopathy 03/2804/27/2022 Dependence on continuous pos itive airway pressure ventilation 03/12/2022 04/21/2022 Dependence on other enabling machines and device s 03/12/2022 04/21/2022 Other specified postprocedural states 03/12/2022 04/21/2022 Rheumatoid arthritis, unspecified 03/12/2022 04/21/2022 Ureteric colic 12/20/2021 04/21/2022 Unspecified abdominal pain 12/08/202104/21 Dyspnea, unspecified 04/05/2021 04/21/2022 Multiple subsegmental pulmon gia emboli without acute cor pulmonale 12/21/2020 10/19/2022 Overview: Per Dr. Aparicio: -No further treatment is needed. Continue aspirin daily. -Consider using low molecular heparin or apixaban for DVT prophylaxis after surgery in the future. (I recommend 6 - 8 weeks of apixaban after total knee replacement surgery) -Continue age-appropriate cancer screening and follow-up with PCP. Last Assessment & Plan: Developed after previous shoulder surgery in 2020. Completed 6 months of anticoagulants. Followed with Hematology. 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 02/17/2017 12/05/2019 Overview: Added automatically from request for surgery [id number] Acute pain of left knee 12/26/2016 11/14/19 Chronic right shoulder pain 12/26/2016 04/0 12/2020 Gross hematuria 11/24/2016 11/13/2020 Malignant neoplasm of kidney excluding renal pel vis 10/21/2016 02/27/2017 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, without long-term current use of insulin 09/30/2016 09/30/2016 Neuropathy 09/30/2016 11/13/2020 Last Assessment & Plan: Assessment: stable on rx Asthma with COPD with exacerbation 08/24/2016 02/27/2017 Counseling and coordination of care 12/15/2014 08/24/2016 SUMMARY 11/21/2014 08/24/2016 Overview: Indication for hospital admission/procedure: Aortic aneurysm LVEF: 65% LVH RVF: Normal Important/Relevant PMH/PSH: BAV, Congenital anomaly of aorta, SIVAKUMAR, Asthma, HTN, HPL, DM, anxiety Preoperative Hospital Course Procedure/Surgeries: 11/17/2014 Mini-BAV repair, Ascending aortic replacement Airway Difficulty: No OR Course: Coagulopathy/bleeding requiring correction with 20u cryo, 8u FFP, 4u plts, 3uprbcs and 2 pump runs for repair of aortic cannulation site Pacing wires: out Postoperative Course/General Impression: S/p AVr/Asc aorta replacement. Plan to wean o2, pep, oob, increase diuresis, cont BB, pain and glucose control. Issues to communicate at signout: CT removed CPAP at night echo done CTA done PT rec acute rehab Needs much encouragement wires out 11/23 d/c to acute rehab today Discharge planning 11/21/2014 05/03/2016 Overview: Pt from [place], [place]. PT rec acute rehab; CM working on placement. Leaving for [facility] in-pt rehab today Hypertension 11/20/2014 02/27/2017 Overview: History: pre op on monopril, norv, Assessment: normotensive currently Plan: Cont BB , cont lasix Atelectasis 11/18/2014 11/19/2014 Overview: Bilateral on CXR. A/P: PEP, EZPAP OOBTC. Volume overload 11/18/2014 08/24/2016 Overview: History: post op Assessment: wt up 5 kg from pre op Plan: cont diuresis On mechanically assisted ventilation 11/17/2014 11/19/2014 Overview: Grade 1 airway. WTE when awake and stable. Extubated on DOS. CPAP at night PEP. Cardiac insufficiency following cardiac surgery 11/17/2014 11/20/2014 Overview: Low CI. CVP low. A/p Epi gtt off. Start BB. Pre-op testing 11/14/2014 08/23/2016 Overview: Images from the original note were not included. [facility] Surgeon: Modesto Cifuentes M.D. Informed Consent Completed: Yes STS Score: unsupported CAD: No Is intended procedure a CABG: No - is a beta hue ordered? No - reason: not indicated H & P completed: Yes 10/28/14 PA/LAT: Completed CT: Completed MRI: N/A LE US: N/A Cath: Yes - reviewed: Yes Echo:Completed EKG: Completed EF %: 65 PI's: N/A Carotid: N/A Mapping: N/A Dental: Completed PFT's: N/A No results for input(s): WBC, HB, HCT, PLT, INR, CREAT in the last 72 hours. UA: Normal HCG:N/A ABO/ABO Confirmed: Yes Blood ordered: No SA Swab: Yes - results: Negative Last Dose of Anticoagulation: OTC 11/12/14 Op Note: N/A Pacemaker Check: N/A Consults: none DM: Yes, A1c: 6.6% Cardiac Surgical prep: N/A SIGNATURE: JERSON Tian CHECKED BY: [email or web address] DATE of SERVICE: 11/14/2014 TIME of SERVICE: 10:59 AM discharge planning 11/10/2014 11/12/2014 Overview: 64yo male without any concerns presently Preop testing 11/10/2014 11/12/2014 Overview: Images from the original note were not included. [facility] Surgeon: Modesto Cifuentes M.D. Informed Consent Completed: pending STS Score: unsupported CAD: Yes - CAD on Problem List: Yes Is intended procedure a CABG: No - is a beta hue ordered? No - reason: not indicated H & P completed: Yes PA/LAT: Completed CT: Completed MRI: N/A LE US: N/A Cath: Yes - reviewed: Yes Echo:Completed EKG: Completed EF %: 65 PI's: Completed Carotid: N/A Mapping: N/A Dental: Pending PFT's: Completed No results for input(s): WBC, HB, HCT, PLT, INR, CREAT in the last 72 hours. UA: Normal HCG:N/A ABO/ABO Confirmed: Yes Blood ordered: No SA Swab: Yes - results: Pending Last Dose of Anticoagulation: vit basa LD 11/03 Op Note: N/A Pacemaker Check: N/A Consults: none DM: No Cardiac Surgical prep: N/A SIGNATURE: Kate Smith RN CHECKED BY: DATE of SERVICE: 11/10/2014 TIME of SERVICE: 10:05 AM Right rotator cuff tear 12/31/2013 08/25/19 17 Pain in joint, shoulder region 12/16/2013 0 08/24/2016 Essential hypertension, benign 12/03/2013 0 11/19/2014 Overview: Home RX; Nortvasc, ACEi A/P: NTg gtt to keep MAPS 65-75. Wean off. Hydralazine prn. Start BB when off Epi. Pain in joint, lower leg 04/16/2013 017 Degenerative tear of medial meniscus 04/16/2013 11/13/2020 Allergic rhinitis 06/29/2012 04/21/2022 Anxiety 07/08/2011 11/13/2020 Overview: Home Rx; Prozac. A/p Restarted Prozac. Esophagitis, unspecified 04/23/2009 017 Acute gastritis without mention of hemorrhage 08/24/2016 Diaphragmatic hernia without mention of obstruction or gangrene 04/23/2009 10/19/2022 Last Assessment & Plan: Assessment: no surgical intervention Trochanteric bursitis 03/05/2009 11/12/2014 Nontoxic uninodular goiter 01/16/200902/24 Overview: 08/13/19 US thyroid right mid-pole thyroid solid nodule 9 x 7 x 4 mm stable since 2016 Last Assessment & Plan: Assessment: under surveillance Nonallopathic lesion of sacr al region, not elsewhere classified 01/02/2009 11/13/2020 Osteoarthrosis, unspecified whether generalized or localized, unspecified site 11/12/2008 11/13/2020 ABSCESS GROIN 07/23/2008 08/23/2016 Obesity, unspecified 07/15/2008 09/16/2020 Pain in joint, pelvic region and thigh 9 08/24/2016 Aneurysm of thoracic aorta 12/05/200704/21 Overview: 05/26/2020 echocardiogram LV size and systolic function normal, ejection fraction 62%, grade 1 ventricular diastolic dysfunction. RV size and RV SF normal, aorta borderline dilated 3.8 cm: Status post aortic valve repair with no regurgitation, peak gradient 33 mmHg, mean gradient 19 mmHg . 07/23/2019 nuclear stress: No inducible ischemia or evidence of scarred myocardium, LV size normal LV SF normal. Ejection fraction 70% 11/17/2014 Mini-BAV repair, Ascending aortic replacement Last Assessment & Plan: Assessment: s/p ascending aorta repair in 2014. 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 Assessment: c/o dry eye Plan: ordered refresh eye drops Last Assessment & Plan: Assessment: prosthetic left eye, eye gtts as needed Generalized anxiety disorder Overview: Anxiety, Generalized Unspecified asthma(493.90) 09/02 Asthma 08/24/2016 documented as of this encounter (statuses as of 11/09/2022) [facility]03-27-2023 History of Past illness Narrative* Problem Noted Date Diagnosed Date Resolved Date Pre-op examination 09/05/2022 Last Assessment & Plan: see note for medical conditions which may affect celestina-operative course that were addressed at today's visit. Depressive disorder 04/21/2022 04/21/20 22 Postoperative pneumonia 04/21/202204/12 Viral infection 04/21/2022 04/21/2022 Lumbosacral spondylosis with radiculopathy 03/28/2022 04/27/2022 Dependence on continuous pos itive airway pressure ventilation 03/12/2022 04/21/2022 Dependence on other enabling machines and devices 03/12/2022 04/21/2022 Other specified postprocedural states 03/12/2022 04/21/2022 Rheumatoid arthritis, unspecified 03/12/2022 04/21/2022 Ureteric colic 12/20/2021 04/21/2022 Unspecified abdominal pain 12/08/2021 1 06/21/2021 Dyspnea, unspecified 04/05/2021 022 Multiple subsegmental pulmon gia emboli without acute cor pulmonale 12/21/2020 10/19/2022 Overview: Per Dr. Aparicio: -No further treatment is needed. Continue aspirin daily. -Consider using low molecular heparin or apixaban for DVT prophylaxis after surgery in the future. (I recommend 6 - 8 weeks of apixaban after total knee replacement surgery) -Continue age-appropriate cancer screening and follow-up with PCP. Last Assessment & Plan: Developed after previous shoulder surgery in 2020. Completed 6 months of anticoagulants. Followed with Hematology. 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ty 02/17/2017 12/05/2019 Overview: Added automatically from request for surgery [id number] Acute pain of left knee 12/26/2016 06/0 09/2020 Chronic right shoulder pain 12/26/2016 09/16/2020 Gross hematuria 11/24/2016 11/13/2020 Malignant neoplasm of kidney excluding renal pelvis 10/21/2016 02/27/2017 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, without long-term current use of insulin 09/30/2016 017 Neuropathy 09/30/2016 11/13/2020 Last Assessment & Plan: Assessment: stable on rx Asthma with COPD with exacerbation 08/24/2016 02/27/2017 Counseling and coordination of care 12/15/2014 08/24/2016 SUMMARY 11/21/2014 08/24/2016 Overview: Indication for hospital admission/procedure: Aortic aneurysm LVEF: 65% LVH RVF: Normal Important/Relevant PMH/PSH: BAV, Congenital anomaly of aorta, SIVAKUMAR, Asthma, HTN, HPL, DM, anxiety Preoperative Hospital Course Procedure/Surgeries: 11/17/2014 Mini-BAV repair, Ascending aortic replacement Airway Difficulty: No OR Course: Coagulopathy/bleeding requiring correction with 20u cryo, 8u FFP, 4u plts, 3uprbcs and 2 pump runs for repair of aortic cannulation site Pacing wires: out Postoperative Course/General Impression: S/p AVr/Asc aorta replacement. Plan to wean o2, pep, oob, increase diuresis, cont BB, pain and glucose control. Issues to communicate at signout: CT removed CPAP at night echo done CTA done PT rec acute rehab Needs much encouragement wires out 11/23 d/c to acute rehab today Discharge planning 11/21/2014 6 Overview: Pt from [place], [place]. PT rec acute rehab; CM working on placement. Leaving for [facility] in-pt rehab today Hypertension 11/20/2014 02/27/2017 Overview: History: pre op on monopril, norv, Assessment: normotensive currently Plan: Cont BB , cont lasix Atelectasis 11/18/2014 11/19/2014 Overview: Bilateral on CXR. A/P: PEP, EZPAP OOBTC. Volume overload 11/18/2014 08/24/2016 Overview: History: post op Assessment: wt up 5 kg from pre op Plan: cont diuresis On mechanically assisted ventilation 11/17/2014 11/19/2014 Overview: Grade 1 airway. WTE when awake and stable. Extubated on DOS. CPAP at night PEP. Cardiac insufficiency follow ing cardiac surgery 11/17/2014 11/20/2014 Overview: Low CI. CVP low. A/p Epi gtt off. Start BB. Pre-op testing 11/14/2014 08/23/2016 Overview: Images from the original note were not included. [facility] Surgeon: Modesto Cifuentes M.D. Informed Consent Completed: Yes STS Score: unsupported CAD: No Is intended procedure a CABG: No - is a beta hue ordered? No - reason: not indicated H & P completed: Yes 10/28/14 PA/LAT: Completed CT: Completed MRI: N/A LE US: N/A Cath: Yes - reviewed: Yes Echo:Completed EKG: Completed EF %: 65 PI's: N/A Carotid: N/A Mapping: N/A Dental: Completed PFT's: N/A No results for input(s): WBC, HB, HCT, PLT, INR, CREAT in the last 72 hours. UA: Normal HCG:N/A ABO/ABO Confirmed: Yes Blood ordered: No SA Swab: Yes - results: Negative Last Dose of Anticoagulation: OTC 11/12/14 Op Note: N/A Pacemaker Check: N/A Consults: none DM: Yes, A1c: 6.6% Cardiac Surgical prep: N/A SIGNATURE: JERSON Tian CHECKED BY: [email or web address] DATE of SERVICE: 11/14/2014 TIME of SERVICE: 10:59 AM discharge planning 11/10/2014 5 Overview: 64yo male without any concerns presently Preop testing 11/10/2014 11/12/2014 Overview: Images from the original note were not included. [facility] Surgeon: Modesto Cifuentes M.D. Informed Consent Completed: pending STS Score: unsupported CAD: Yes - CAD on Problem List: Yes Is intended procedure a CABG: No - is a beta hue ordered? No - reason: not indicated H & P completed: Yes PA/LAT: Completed CT: Completed MRI: N/A LE US: N/A Cath: Yes - reviewed: Yes Echo:Completed EKG: Completed EF %: 65 PI's: Completed Carotid: N/A Mapping: N/A Dental: Pending PFT's: Completed No results for input(s): WBC, HB, HCT, PLT, INR, CREAT in the last 72 hours. UA: Normal HCG:N/A ABO/ABO Confirmed: Yes Blood ordered: No SA Swab: Yes - results: Pending Last Dose of Anticoagulation: vit basa LD 11/03 Op Note: N/A Pacemaker Check: N/A Consults: none DM: No Cardiac Surgical prep: N/A SIGNATURE: Kate Smith RN CHECKED BY: DATE of SERVICE: 11/10/2014 TIME of SERVICE: 10:05 AM Right rotator cuff tear 12/31/201308/10 Pain in joint, shoulder region 12/16/2013 08/24/2016 Essential hypertension, benign 12/03/2013 11/19/2014 Overview: Home RX; Nortvasc, ACEi A/P: NTg gtt to keep MAPS 65-75. Wean off. Hydralazine prn. Start BB when off Epi. Pain in joint, lower leg 04/16/2013 Degenerative tear of medial meniscus 04/16/2013 11/13/2020 Allergic rhinitis 06/29/2012 04/21/2022 Anxiety 07/08/2011 11/13/2020 Overview: Home Rx; Prozac. A/p Restarted Prozac. Esophagitis, unspecified 04/23/2009 Acute gastritis without mention of hemorrhage 04/23/20 09 08/24/2016 Diaphragmatic hernia without mention of obstruction or gangrene 04/23/2009 10/19/2022 Last Assessment & Plan: Assessment: no surgical intervention Trochanteric bursitis 03/05/20092014 Nontoxic uninodular goiter 01/16/2009 0 02/24/2021 Overview: 08/13/19 thyroid right mid-pole thyroid solid nodule 9 x 7 x 4 mm stable since 2016 Last Assessment & Plan: Assessment: under surveillance Nonallopathic lesion of sacr al region, not elsewhere classified 01/02/2009 11/13/2020 Osteoarthrosis, unspecified whether generalized or localized, unspecified site 11/12/2008 11/13/2020 ABSCESS GROIN 07/23/2008 08/23/2016 Obesity, unspecified 07/15/2008 021 Pain in joint, pelvic region and thigh 06/16/2008 08/24/2016 Aneurysm of thoracic aorta 12/05/2007 1 06/21/2021 Overview: 05/26/2020 echocardiogram LV size and systolic function normal, ejection fraction 62%, grade 1 ventricular diastolic dysfunction. RV size and RV SF normal, aorta borderline dilated 3.8 cm: Status post aortic valve repair with no regurgitation, peak gradient 33 mmHg, mean gradient 19 mmHg . 07/23/2019 nuclear stress: No inducible ischemia or evidence of scarred myocardium, LV size normal LV SF normal. Ejection fraction 70% 11/17/2014 Mini-BAV repair, Ascending aortic replacement Last Assessment & Plan: Assessment: s/p ascending aorta repair in 2014. 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 Assessment: c/o dry eye Plan: ordered refresh eye drops Last Assessment & Plan: Assessment: prosthetic left eye, eye gtts as needed Generalized anxiety disorder 08/24/2016 Overview: Anxiety, Generalized Unspecified asthma(493.90) 0 09/03/2007 Asthma 08/24/2016 documented as of this encounter (statuses as of 12/21/2022) [facility]03-27-2023 History of Past illness Narrative* Problem Noted Date Diagnosed Date Resolved Date Pre-op examination 09/05/2022 Last Assessment & Plan: see note for medical conditions which may affect celestina-operative course that were addressed at today's visit. Depressive disorder 04/21/2022 04/21/20 22 Postoperative pneumonia 04/21/202204/12 Viral infection 04/21/2022 04/21/2022 Lumbosacral spondylosis with radiculopathy 03/28/2022 04/27/2022 Dependence on continuous pos itive airway pressure ventilation 03/12/2022 04/21/2022 Dependence on other enabling machines and devices 03/12/2022 04/21/2022 Other specified postprocedural states 03/12/2022 04/21/2022 Rheumatoid arthritis, unspecified 03/12/2022 04/21/2022 Ureteric colic 12/20/2021 04/21/2022 Unspecified abdominal pain 12/08/2021 1 06/21/2021 Dyspnea, unspecified 04/05/2021 022 Multiple subsegmental pulmon gia emboli without acute cor pulmonale 12/21/2020 10/19/2022 Overview: Per Dr. Aparicio: -No further treatment is needed. Continue aspirin daily. -Consider using low molecular heparin or apixaban for DVT prophylaxis after surgery in the future. (I recommend 6 - 8 weeks of apixaban after total knee replacement surgery) -Continue age-appropriate cancer screening and follow-up with PCP. Last Assessment & Plan: Developed after previous shoulder surgery in 2020. Completed 6 months of anticoagulants. Followed with Hematology. 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ty 02/17/2017 12/05/2019 Overview: Added automatically from request for surgery [id number] Acute pain of left knee 12/26/2016 06/0 09/2020 Chronic right shoulder pain 12/26/2016 09/16/2020 Gross hematuria 11/24/2016 11/13/2020 Malignant neoplasm of kidney excluding renal pelvis 10/21/2016 02/27/2017 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, without long-term current use of insulin 09/30/2016 017 Neuropathy 09/30/2016 11/13/2020 Last Assessment & Plan: Assessment: stable on rx Asthma with COPD with exacerbation 08/24/2016 02/27/2017 Counseling and coordination of care 12/15/2014 08/24/2016 SUMMARY 11/21/2014 08/24/2016 Overview: Indication for hospital admission/procedure: Aortic aneurysm LVEF: 65% LVH RVF: Normal Important/Relevant PMH/PSH: BAV, Congenital anomaly of aorta, SIVAKUMAR, Asthma, HTN, HPL, DM, anxiety Preoperative Hospital Course Procedure/Surgeries: 11/17/2014 Mini-BAV repair, Ascending aortic replacement Airway Difficulty: No OR Course: Coagulopathy/bleeding requiring correction with 20u cryo, 8u FFP, 4u plts, 3uprbcs and 2 pump runs for repair of aortic cannulation site Pacing wires: out Postoperative Course/General Impression: S/p AVr/Asc aorta replacement. Plan to wean o2, pep, oob, increase diuresis, cont BB, pain and glucose control. Issues to communicate at signout: CT removed CPAP at night echo done CTA done PT rec acute rehab Needs much encouragement wires out 11/23 d/c to acute rehab today Discharge planning 11/21/2014 6 Overview: Pt from [place], [place]. PT rec acute rehab; CM working on placement. Leaving for [facility] in-pt rehab today Hypertension 11/20/2014 02/27/2017 Overview: History: pre op on monopril, norv, Assessment: normotensive currently Plan: Cont BB , cont lasix Atelectasis 11/18/2014 11/19/2014 Overview: Bilateral on CXR. A/P: PEP, EZPAP OOBTC. Volume overload 11/18/2014 08/24/2016 Overview: History: post op Assessment: wt up 5 kg from pre op Plan: cont diuresis On mechanically assisted ventilation 11/17/2014 11/19/2014 Overview: Grade 1 airway. WTE when awake and stable. Extubated on DOS. CPAP at night PEP. Cardiac insufficiency follow ing cardiac surgery 11/17/2014 11/20/2014 Overview: Low CI. CVP low. A/p Epi gtt off. Start BB. Pre-op testing 11/14/2014 08/23/2016 Overview: Images from the original note were not included. [facility] Surgeon: Modesto Cifuentes M.D. Informed Consent Completed: Yes STS Score: unsupported CAD: No Is intended procedure a CABG: No - is a beta hue ordered? No - reason: not indicated H & P completed: Yes 10/28/14 PA/LAT: Completed CT: Completed MRI: N/A LE US: N/A Cath: Yes - reviewed: Yes Echo:Completed EKG: Completed EF %: 65 PI's: N/A Carotid: N/A Mapping: N/A Dental: Completed PFT's: N/A No results for input(s): WBC, HB, HCT, PLT, INR, CREAT in the last 72 hours. UA: Normal HCG:N/A ABO/ABO Confirmed: Yes Blood ordered: No SA Swab: Yes - results: Negative Last Dose of Anticoagulation: OTC 11/12/14 Op Note: N/A Pacemaker Check: N/A Consults: none DM: Yes, A1c: 6.6% Cardiac Surgical prep: N/A SIGNATURE: JERSON Tian CHECKED BY: [email or web address] DATE of SERVICE: 11/14/2014 TIME of SERVICE: 10:59 AM discharge planning 11/10/2014 5 Overview: 64yo male without any concerns presently Preop testing 11/10/2014 11/12/2014 Overview: Images from the original note were not included. [facility] Surgeon: Modesto Cifuentes M.D. Informed Consent Completed: pending STS Score: unsupported CAD: Yes - CAD on Problem List: Yes Is intended procedure a CABG: No - is a beta hue ordered? No - reason: not indicated H & P completed: Yes PA/LAT: Completed CT: Completed MRI: N/A LE US: N/A Cath: Yes - reviewed: Yes Echo:Completed EKG: Completed EF %: 65 PI's: Completed Carotid: N/A Mapping: N/A Dental: Pending PFT's: Completed No results for input(s): WBC, HB, HCT, PLT, INR, CREAT in the last 72 hours. UA: Normal HCG:N/A ABO/ABO Confirmed: Yes Blood ordered: No SA Swab: Yes - results: Pending Last Dose of Anticoagulation: vit basa LD 11/03 Op Note: N/A Pacemaker Check: N/A Consults: none DM: No Cardiac Surgical prep: N/A SIGNATURE: Kate Smith RN CHECKED BY: DATE of SERVICE: 11/10/2014 TIME of SERVICE: 10:05 AM Right rotator cuff tear 12/31/201308/10 Pain in joint, shoulder region 12/16/2013 08/24/2016 Essential hypertension, benign 12/03/2013 11/19/2014 Overview: Home RX; Nortvasc, ACEi A/P: NTg gtt to keep MAPS 65-75. Wean off. Hydralazine prn. Start BB when off Epi. Pain in joint, lower leg 04/16/2013 Degenerative tear of medial meniscus 04/16/2013 11/13/2020 Allergic rhinitis 06/29/2012 04/21/2022 Anxiety 07/08/2011 11/13/2020 Overview: Home Rx; Prozac. A/p Restarted Prozac. Esophagitis, unspecified 04/23/2009 Acute gastritis without mention of hemorrhage 04/23/2008/24/2016 Diaphragmatic hernia without mention of obstruction or gangrene 04/23/2009 10/19/2022 Last Assessment & Plan: Assessment: no surgical intervention Trochanteric bursitis 03/05/20092014 Nontoxic uninodular goiter 01/16/2009 0 02/24/2021 Overview: 08/13/19 thyroid right mid-pole thyroid solid nodule 9 x 7 x 4 mm stable since 2017 Last Assessment & Plan: Assessment: under surveillance Nonallopathic lesion of sacr al region, not elsewhere classified 01/02/2009 11/13/2020 Osteoarthrosis, unspecified whether generalized or localized, unspecified site 11/12/2008 11/13/2020 ABSCESS GROIN 07/23/2008 08/23/2016 Obesity, unspecified 07/15/2008 021 Pain in joint, pelvic region and thigh 06/16/2008 08/24/2016 Aneurysm of thoracic aorta 12/05/2007 1 06/21/2021 Overview: 05/26/2020 echocardiogram LV size and systolic function normal, ejection fraction 62%, grade 1 ventricular diastolic dysfunction. RV size and RV SF normal, aorta borderline dilated 3.8 cm: Status post aortic valve repair with no regurgitation, peak gradient 33 mmHg, mean gradient 19 mmHg . 07/23/2019 nuclear stress: No inducible ischemia or evidence of scarred myocardium, LV size normal LV SF normal. Ejection fraction 70% 11/17/2014 Mini-BAV repair, Ascending aortic replacement Last Assessment & Plan: Assessment: s/p ascending aorta repair in 2014. 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 Assessment: c/o dry eye Plan: ordered refresh eye drops Last Assessment & Plan: Assessment: prosthetic left eye, eye gtts as needed Generalized anxiety disorder 08/24/2016 Overview: Anxiety, Generalized Unspecified asthma(493.90) 0 09/03/2007 Asthma 08/24/2016 documented as of this encounter (statuses as of 02/20/2023) [facility]03-27-2023 History of Past illness Narrative* Problem Noted Date Diagnosed Date Resolved Date Pre-op examination 09/05/2022 Last Assessment & Plan: see note for medical conditions which may affect celestina-operative course that were addressed at today's visit. Depressive disorder 04/21/2022 04/21/20 Postoperative pneumonia 04/21/202204/12 Viral infection 04/21/2022 04/21/2022 Lumbosacral spondylosis with radiculopathy 03/28/2022 04/27/2022 Dependence on continuous pos itive airway pressure ventilation 03/12/2022 04/21/2022 Dependence on other enabling machines and devices 03/12/2022 04/21/2022 Other specified postprocedural states 03/12/2022 04/21/2022 Rheumatoid arthritis, unspecified 03/12/2022 04/21/2022 Ureteric colic 12/20/2021 04/21/2022 Unspecified abdominal pain 12/08/2021 1 06/21/2021 Dyspnea, unspecified 04/05/2021 022 Multiple subsegmental pulmon gia emboli without acute cor pulmonale 12/21/2020 10/19/2022 Overview: Per Dr. Aparicio: -No further treatment is needed. Continue aspirin daily. -Consider using low molecular heparin or apixaban for DVT prophylaxis after surgery in the future. (I recommend 6 - 8 weeks of apixaban after total knee replacement surgery) -Continue age-appropriate cancer screening and follow-up with PCP. Last Assessment & Plan: Developed after previous shoulder surgery in 2020. Completed 6 months of anticoagulants. Followed with Hematology. 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ty 02/17/2017 12/05/2019 Overview: Added automatically from request for surgery [id number] Acute pain of left knee 12/26/2016 06/0 09/2020 Chronic right shoulder pain 12/26/2016 09/16/2020 Gross hematuria 11/24/2016 11/13/2020 Malignant neoplasm of kidney excluding renal pelvis 10/21/2016 02/27/2017 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, without long-term current use of insulin 09/30/2016 017 Neuropathy 09/30/2016 11/13/2020 Last Assessment & Plan: Assessment: stable on rx Asthma with COPD with exacerbation 08/24/2016 02/27/2017 Counseling and coordination of care 12/15/2014 08/24/2016 SUMMARY 11/21/2014 08/24/2016 Overview: Indication for hospital admission/procedure: Aortic aneurysm LVEF: 65% LVH RVF: Normal Important/Relevant PMH/PSH: BAV, Congenital anomaly of aorta, SIVAKUMAR, Asthma, HTN, HPL, DM, anxiety Preoperative Hospital Course Procedure/Surgeries: 11/17/2014 Mini-BAV repair, Ascending aortic replacement Airway Difficulty: No OR Course: Coagulopathy/bleeding requiring correction with 20u cryo, 8u FFP, 4u plts, 3uprbcs and 2 pump runs for repair of aortic cannulation site Pacing wires: out Postoperative Course/General Impression: S/p AVr/Asc aorta replacement. Plan to wean o2, pep, oob, increase diuresis, cont BB, pain and glucose control. Issues to communicate at signout: CT removed CPAP at night echo done CTA done PT rec acute rehab Needs much encouragement wires out /14 d/c to acute rehab today Discharge planning 11/21/201405/03/ 6 Overview: Pt from [place], [place]. PT rec acute rehab; CM working on placement. Leaving for [facility] in-pt rehab today Hypertension 11/20/2014 02/27/2017 Overview: History: pre op on monopril, norv, Assessment: normotensive currently Plan: Cont BB , cont lasix Atelectasis 11/18/2014 11/19/2014 Overview: Bilateral on CXR. A/P: PEP, EZPAP OOBTC. Volume overload 11/18/2014 08/24/2016 Overview: History: post op Assessment: wt up 5 kg from pre op Plan: cont diuresis On mechanically assisted ventilation 11/17/2014 11/19/2014 Overview: Grade 1 airway. WTE when awake and stable. Extubated on DOS. CPAP at night PEP. Cardiac insufficiency follow ing cardiac surgery 11/17/2014 11/20/2014 Overview: Low CI. CVP low. A/p Epi gtt off. Start BB. Pre-op testing 11/14/2014 08/23/2016 Overview: Images from the original note were not included. [facility] Surgeon: Modesto Cifuentes M.D. Informed Consent Completed: Yes STS Score: unsupported CAD: No Is intended procedure a CABG: No - is a beta hue ordered? No - reason: not indicated H & P completed: Yes 10/28/14 PA/LAT: Completed CT: Completed MRI: N/A LE US: N/A Cath: Yes - reviewed: Yes Echo:Completed EKG: Completed EF %: 65 PI's: N/A Carotid: N/A Mapping: N/A Dental: Completed PFT's: N/A No results for input(s): WBC, HB, HCT, PLT, INR, CREAT in the last 72 hours. UA: Normal HCG:N/A ABO/ABO Confirmed: Yes Blood ordered: No SA Swab: Yes - results: Negative Last Dose of Anticoagulation: OTC 11/12/14 Op Note: N/A Pacemaker Check: N/A Consults: none DM: Yes, A1c: 6.6% Cardiac Surgical prep: N/A SIGNATURE: JERSON Tian CHECKED BY: [email or web address] DATE of SERVICE: 11/14/2014 TIME of SERVICE: 10:59 AM discharge planning 11/10/2014 5 Overview: 64yo male without any concerns presently Preop testing 11/10/2014 11/12/2014 Overview: Images from the original note were not included. [facility] Surgeon: Modesto Cifuentes M.D. Informed Consent Completed: pending STS Score: unsupported CAD: Yes - CAD on Problem List: Yes Is intended procedure a CABG: No - is a beta hue ordered? No - reason: not indicated H & P completed: Yes PA/LAT: Completed CT: Completed MRI: N/A LE US: N/A Cath: Yes - reviewed: Yes Echo:Completed EKG: Completed EF %: 65 PI's: Completed Carotid: N/A Mapping: N/A Dental: Pending PFT's: Completed No results for input(s): WBC, HB, HCT, PLT, INR, CREAT in the last 72 hours. UA: Normal HCG:N/A ABO/ABO Confirmed: Yes Blood ordered: No SA Swab: Yes - results: Pending Last Dose of Anticoagulation: vit basa LD 11/03 Op Note: N/A Pacemaker Check: N/A Consults: none DM: No Cardiac Surgical prep: N/A SIGNATURE: Kate Smith RN CHECKED BY: DATE of SERVICE: 11/10/2014 TIME of SERVICE: 10:05 AM Right rotator cuff tear 12/31/201308/10 Pain in joint, shoulder region 12/16/2013 08/24/2016 Essential hypertension, benign 12/03/2013 11/19/2014 Overview: Home RX; Nortvasc, ACEi A/P: NTg gtt to keep MAPS 65-75. Wean off. Hydralazine prn. Start BB when off Epi. Pain in joint, lower leg 04/16/2013 Degenerative tear of medial meniscus 04/16/2013 11/13/2020 Allergic rhinitis 06/29/2012 04/21/2022 Anxiety 07/08/2011 11/13/2020 Overview: Home Rx; Prozac. A/p Restarted Prozac. Esophagitis, unspecified 04/23/2009 Acute gastritis without mention of hemorrhage 04/23/20 09 08/24/2016 Diaphragmatic hernia without mention of obstruction or gangrene 04/23/2009 10/19/2022 Last Assessment & Plan: Assessment: no surgical intervention Trochanteric bursitis 03/05/20092014 Nontoxic uninodular goiter 01/16/2009 0 02/24/2021 Overview: 08/13/19 US thyroid right mid-pole thyroid solid nodule 9 x 7 x 4 mm stable since 2016 Last Assessment & Plan: Assessment: under surveillance Nonallopathic lesion of sacr al region, not elsewhere classified 01/02/2009 11/13/2020 Osteoarthrosis, unspecified whether generalized or localized, unspecified site 11/12/2008 11/13/2020 ABSCESS GROIN 07/23/2008 08/23/2016 Obesity, unspecified 07/15/2008 021 Pain in joint, pelvic region and thigh 06/16/2008 08/24/2016 Aneurysm of thoracic aorta 12/05/2007 1 06/21/2021 Overview: 05/26/2020 echocardiogram LV size and systolic function normal, ejection fraction 62%, grade 1 ventricular diastolic dysfunction. RV size and RV SF normal, aorta borderline dilated 3.8 cm: Status post aortic valve repair with no regurgitation, peak gradient 33 mmHg, mean gradient 19 mmHg . 07/23/2019 nuclear stress: No inducible ischemia or evidence of scarred myocardium, LV size normal LV SF normal. Ejection fraction 70% 11/17/2014 Mini-BAV repair, Ascending aortic replacement Last Assessment & Plan: Assessment: s/p ascending aorta repair in 2014. 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 Assessment: c/o dry eye Plan: ordered refresh eye drops Last Assessment & Plan: Assessment: prosthetic left eye, eye gtts as needed Generalized anxiety disorder 08/24/2016 Overview: Anxiety, Generalized Unspecified asthma(493.90) 0 09/03/2007 Asthma 08/24/2016 documented as of this encounter (statuses as of 03/01/2023) [facility]03-27-2023 History of Past illness Narrative* Problem Noted Date Diagnosed Date Resolved Date Pre-op examination 09/05/2022 Last Assessment & Plan: see note for medical conditions which may affect celestina-operative course that were addressed at today's visit. Depressive disorder 04/21/2022 04/21/20 22 Postoperative pneumonia 04/21/202204/12 Viral infection 04/21/2022 04/21/2022 Lumbosacral spondylosis with radiculopathy 03/28/2022 04/27/2022 Dependence on continuous pos itive airway pressure ventilation 03/12/2022 04/21/2022 Dependence on other enabling machines and devices 03/12/2022 04/21/2022 Other specified postprocedural states 03/12/2022 04/21/2022 Rheumatoid arthritis, unspecified 03/12/2022 04/21/2022 Ureteric colic 12/20/2021 04/21/2022 Unspecified abdominal pain 12/08/2021 1 06/21/2021 Dyspnea, unspecified 04/05/2021 022 Multiple subsegmental pulmon gia emboli without acute cor pulmonale 12/21/2020 10/19/2022 Overview: Per Dr. Aparicio: -No further treatment is needed. Continue aspirin daily. -Consider using low molecular heparin or apixaban for DVT prophylaxis after surgery in the future. (I recommend 6 - 8 weeks of apixaban after total knee replacement surgery) -Continue age-appropriate cancer screening and follow-up with PCP. Last Assessment & Plan: Developed after previous shoulder surgery in 2020. Completed 6 months of anticoagulants. Followed with Hematology. 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ty 02/17/2017 12/05/2019 Overview: Added automatically from request for surgery [id number] Acute pain of left knee 12/26/2016 0609/2020 Chronic right shoulder pain 12/26/2016 09/16/2020 Gross hematuria 11/24/2016 11/13/2020 Malignant neoplasm of kidney excluding renal pelvis 10/21/2016 02/27/2017 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, without long-term current use of insulin 09/30/2016 017 Neuropathy 09/30/2016 11/13/2020 Last Assessment & Plan: Assessment: stable on rx Asthma with COPD with exacerbation 08/24/2016 02/27/2017 Counseling and coordination of care 12/15/2014 08/24/2016 SUMMARY 11/21/2014 08/24/2016 Overview: Indication for hospital admission/procedure: Aortic aneurysm LVEF: 65% LVH RVF: Normal Important/Relevant PMH/PSH: BAV, Congenital anomaly of aorta, SIVAKUMAR, Asthma, HTN, HPL, DM, anxiety Preoperative Hospital Course Procedure/Surgeries: 11/17/2014 Mini-BAV repair, Ascending aortic replacement Airway Difficulty: No OR Course: Coagulopathy/bleeding requiring correction with 20u cryo, 8u FFP, 4u plts, 3uprbcs and 2 pump runs for repair of aortic cannulation site Pacing wires: out Postoperative Course/General Impression: S/p AVr/Asc aorta replacement. Plan to wean o2, pep, oob, increase diuresis, cont BB, pain and glucose control. Issues to communicate at signout: CT removed CPAP at night echo done CTA done PT rec acute rehab Needs much encouragement wires out 11/23 d/c to acute rehab today Discharge planning 11/21/2014 Overview: Pt from [place], [place]. PT rec acute rehab; CM working on placement. Leaving for [facility] in-pt rehab today Hypertension 11/20/2014 02/27/2017 Overview: History: pre op on monopril, norv, Assessment: normotensive currently Plan: Cont BB , cont lasix Atelectasis 11/18/2014 11/19/2014 Overview: Bilateral on CXR. A/P: PEP, EZPAP OOBTC. Volume overload 11/18/2014 08/24/2016 Overview: History: post op Assessment: wt up 5 kg from pre op Plan: cont diuresis On mechanically assisted ventilation 11/17/2014 11/19/2014 Overview: Grade 1 airway. WTE when awake and stable. Extubated on DOS. CPAP at night PEP. Cardiac insufficiency follow ing cardiac surgery 11/17/2014 11/20/2014 Overview: Low CI. CVP low. A/p Epi gtt off. Start BB. Pre-op testing 11/14/2014 08/23/2016 Overview: Images from the original note were not included. [facility] Surgeon: Modesto Cifuentes M.D. Informed Consent Completed: Yes STS Score: unsupported CAD: No Is intended procedure a CABG: No - is a beta hue ordered? No - reason: not indicated H & P completed: Yes 10/28/14 PA/LAT: Completed CT: Completed MRI: N/A LE US: N/A Cath: Yes - reviewed: Yes Echo:Completed EKG: Completed EF %: 65 PI's: N/A Carotid: N/A Mapping: N/A Dental: Completed PFT's: N/A No results for input(s): WBC, HB, HCT, PLT, INR, CREAT in the last 72 hours. UA: Normal HCG:N/A ABO/ABO Confirmed: Yes Blood ordered: No SA Swab: Yes - results: Negative Last Dose of Anticoagulation: OTC 11/12/14 Op Note: N/A Pacemaker Check: N/A Consults: none DM: Yes, A1c: 6.6% Cardiac Surgical prep: N/A SIGNATURE: JERSON Tian CHECKED BY: [email or web address] DATE of SERVICE: 11/14/2014 TIME of SERVICE: 10:59 AM discharge planning 11/10/2014 5 Overview: 64yo male without any concerns presently Preop testing 11/10/2014 11/12/2014 Overview: Images from the original note were not included. [facility] Surgeon: Modesto Cifuentes M.D. Informed Consent Completed: pending STS Score: unsupported CAD: Yes - CAD on Problem List: Yes Is intended procedure a CABG: No - is a beta hue ordered? No - reason: not indicated H & P completed: Yes PA/LAT: Completed CT: Completed MRI: N/A LE US: N/A Cath: Yes - reviewed: Yes Echo:Completed EKG: Completed EF %: 65 PI's: Completed Carotid: N/A Mapping: N/A Dental: Pending PFT's: Completed No results for input(s): WBC, HB, HCT, PLT, INR, CREAT in the last 72 hours. UA: Normal HCG:N/A ABO/ABO Confirmed: Yes Blood ordered: No SA Swab: Yes - results: Pending Last Dose of Anticoagulation: vit basa LD 5/25 Op Note: N/A Pacemaker Check: N/A Consults: none DM: No Cardiac Surgical prep: N/A SIGNATURE: Kate Smith RN CHECKED BY: DATE of SERVICE: 11/10/2014 TIME of SERVICE: 10:05 AM Right rotator cuff tear 12/31/201308/10 Pain in joint, shoulder region 12/16/2013 08/24/2016 Essential hypertension, benign 12/03/2013 11/19/2014 Overview: Home RX; Nortvasc, ACEi A/P: NTg gtt to keep MAPS 65-75. Wean off. Hydralazine prn. Start BB when off Epi. Pain in joint, lower leg 04/16/2013 Degenerative tear of medial meniscus 04/16/2013 11/13/2020 Allergic rhinitis 06/29/2012 04/21/2022 Anxiety 07/08/2011 11/13/2020 Overview: Home Rx; Prozac. A/p Restarted Prozac. Esophagitis, unspecified 04/23/2009 Acute gastritis without mention of hemorrhage 04/23/20 09 08/24/2016 Diaphragmatic hernia without mention of obstruction or gangrene 04/23/2009 10/19/2022 Last Assessment & Plan: Assessment: no surgical intervention Trochanteric bursitis 03/05/20092014 Nontoxic uninodular goiter 01/16/2009 0 02/24/2021 Overview: 08/13/19 thyroid right mid-pole thyroid solid nodule 9 x 7 x 4 mm stable since 2016 Last Assessment & Plan: Assessment: under surveillance Nonallopathic lesion of sacr al region, not elsewhere classified 01/02/2009 11/13/2020 Osteoarthrosis, unspecified whether generalized or localized, unspecified site 11/12/2008 11/13/2020 ABSCESS GROIN 07/23/2008 08/23/2016 Obesity, unspecified 07/15/2008 021 Pain in joint, pelvic region and thigh 06/16/2008 08/24/2016 Aneurysm of thoracic aorta 12/05/2007 1 06/21/2021 Overview: 05/26/2020 echocardiogram LV size and systolic function normal, ejection fraction 62%, grade 1 ventricular diastolic dysfunction. RV size and RV SF normal, aorta borderline dilated 3.8 cm: Status post aortic valve repair with no regurgitation, peak gradient 33 mmHg, mean gradient 19 mmHg . 07/23/2019 nuclear stress: No inducible ischemia or evidence of scarred myocardium, LV size normal LV SF normal. Ejection fraction 70% 11/17/2014 Mini-BAV repair, Ascending aortic replacement Last Assessment & Plan: Assessment: s/p ascending aorta repair in 2014. 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 Assessment: c/o dry eye Plan: ordered refresh eye drops Last Assessment & Plan: Assessment: prosthetic left eye, eye gtts as needed Generalized anxiety disorder 08/24/2016 Overview: Anxiety, Generalized Unspecified asthma(493.90) 0 09/03/2007 Asthma 08/24/2016 documented as of this encounter (statuses as of 03/03/2023) [facility]03-27-2023 History of Past illness Narrative* Problem Noted Date Diagnosed Date Resolved Date Pre-op examination 09/05/2022 Last Assessment & Plan: see note for medical conditions which may affect celestina-operative course that were addressed at today's visit. Depressive disorder 04/21/2022 04/21/20 Postoperative pneumonia 04/21/2022 11 Viral infection 04/21/2022 04/21/2022 Lumbosacral spondylosis with radiculopathy 03/28/2022 04/27/2022 Dependence on continuous pos itive airway pressure ventilation 03/12/2022 04/21/2022 Dependence on other enabling machines and devices 03/12/2022 04/21/2022 Other specified postprocedural states 03/12/2022 04/21/2022 Rheumatoid arthritis, unspecified 03/12/2022 04/21/2022 Ureteric colic 12/20/2021 04/21/2022 Unspecified abdominal pain 12/08/2021 1 06/21/2021 Dyspnea, unspecified 04/05/2021 022 Multiple subsegmental pulmon gia emboli without acute cor pulmonale 12/21/2020 10/19/2022 Overview: Per Dr. Aparicio: -No further treatment is needed. Continue aspirin daily. -Consider using low molecular heparin or apixaban for DVT prophylaxis after surgery in the future. (I recommend 6 - 8 weeks of apixaban after total knee replacement surgery) -Continue age-appropriate cancer screening and follow-up with PCP. Last Assessment & Plan: Developed after previous shoulder surgery in 2020. Completed 6 months of anticoagulants. Followed with Hematology. 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ty 02/17/2017 12/05/2019 Overview: Added automatically from request for surgery [id number] Acute pain of left knee 12/26/2016 06/0 09/2020 Chronic right shoulder pain 12/26/2016 09/16/2020 Gross hematuria 11/24/2016 11/13/2020 Malignant neoplasm of kidney excluding renal pelvis 10/21/2016 02/27/2017 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, without long-term current use of insulin 09/30/2016 017 Neuropathy 09/30/2016 11/13/2020 Last Assessment & Plan: Assessment: stable on rx Asthma with COPD with exacerbation 08/24/2016 02/27/2017 Counseling and coordination of care 12/15/2014 08/24/2016 SUMMARY 11/21/2014 08/24/2016 Overview: Indication for hospital admission/procedure: Aortic aneurysm LVEF: 65% LVH RVF: Normal Important/Relevant PMH/PSH: BAV, Congenital anomaly of aorta, SIVAKUMAR, Asthma, HTN, HPL, DM, anxiety Preoperative Hospital Course Procedure/Surgeries: 11/17/2014 Mini-BAV repair, Ascending aortic replacement Airway Difficulty: No OR Course: Coagulopathy/bleeding requiring correction with 20u cryo, 8u FFP, 4u plts, 3uprbcs and 2 pump runs for repair of aortic cannulation site Pacing wires: out Postoperative Course/General Impression: S/p AVr/Asc aorta replacement. Plan to wean o2, pep, oob, increase diuresis, cont BB, pain and glucose control. Issues to communicate at signout: CT removed CPAP at night echo done CTA done PT rec acute rehab Needs much encouragement wires out 11/23 d/c to acute rehab today Discharge planning 11/21/201405/03/ 6 Overview: Pt from [place], [place]. PT rec acute rehab; CM working on placement. Leaving for [facility] in-pt rehab today Hypertension 11/20/2014 02/27/2017 Overview: History: pre op on monopril, norv, Assessment: normotensive currently Plan: Cont BB , cont lasix Atelectasis 11/18/2014 11/19/2014 Overview: Bilateral on CXR. A/P: PEP, EZPAP OOBTC. Volume overload 11/18/2014 08/24/2016 Overview: History: post op Assessment: wt up 5 kg from pre op Plan: cont diuresis On mechanically assisted ventilation 11/17/2014 11/19/2014 Overview: Grade 1 airway. WTE when awake and stable. Extubated on DOS. CPAP at night PEP. Cardiac insufficiency follow ing cardiac surgery 11/17/2014 11/20/2014 Overview: Low CI. CVP low. A/p Epi gtt off. Start BB. Pre-op testing 11/14/2014 08/23/2016 Overview: Images from the original note were not included. [facility] Surgeon: Modesto Cifuentes M.D. Informed Consent Completed: Yes STS Score: unsupported CAD: No Is intended procedure a CABG: No - is a beta hue ordered? No - reason: not indicated H & P completed: Yes 10/28/14 PA/LAT: Completed CT: Completed MRI: N/A LE US: N/A Cath: Yes - reviewed: Yes Echo:Completed EKG: Completed EF %: 65 PI's: N/A Carotid: N/A Mapping: N/A Dental: Completed PFT's: N/A No results for input(s): WBC, HB, HCT, PLT, INR, CREAT in the last 72 hours. UA: Normal HCG:N/A ABO/ABO Confirmed: Yes Blood ordered: No SA Swab: Yes - results: Negative Last Dose of Anticoagulation: OTC 11/12/14 Op Note: N/A Pacemaker Check: N/A Consults: none DM: Yes, A1c: 6.6% Cardiac Surgical prep: N/A SIGNATURE: JERSON Tian CHECKED BY: [email or web address] DATE of SERVICE: 11/14/2014 TIME of SERVICE: 10:59 AM discharge planning 11/10/2014 5 Overview: 64yo male without any concerns presently Preop testing 11/10/2014 11/12/2014 Overview: Images from the original note were not included. [facility] PRE-OP CHECKLIST Surgeon: Modesto Cifuentes M.D. Informed Consent Completed: pending STS Score: unsupported CAD: Yes - CAD on Problem List: Yes Is intended procedure a CABG: No - is a beta hue ordered? No - reason: not indicated H & P completed: Yes PA/LAT: Completed CT: Completed MRI: N/A LE US: N/A Cath: Yes - reviewed: Yes Echo:Completed EKG: Completed EF %: 65 PI's: Completed Carotid: N/A Mapping: N/A Dental: Pending PFT's: Completed No results for input(s): WBC, HB, HCT, PLT, INR, CREAT in the last 72 hours. UA: Normal HCG:N/A ABO/ABO Confirmed: Yes Blood ordered: No SA Swab: Yes - results: Pending Last Dose of Anticoagulation: vit basa LD 11/03 Op Note: N/A Pacemaker Check: N/A Consults: none DM: No Cardiac Surgical prep: N/A SIGNATURE: Kate Smith RN CHECKED BY: DATE of SERVICE: 11/10/2014 TIME of SERVICE: 10:05 AM Right rotator cuff tear 12/31/201308/10 Pain in joint, shoulder region 12/16/2013 08/24/2016 Essential hypertension, benign 12/03/2013 11/19/2014 Overview: Home RX; Nortvasc, ACEi A/P: NTg gtt to keep MAPS 65-75. Wean off. Hydralazine prn. Start BB when off Epi. Pain in joint, lower leg 04/16/2013 Degenerative tear of medial meniscus 04/16/2013 11/13/2020 Allergic rhinitis 06/29/2012 04/21/2022 Anxiety 07/08/2011 11/13/2020 Overview: Home Rx; Prozac. A/p Restarted Prozac. Esophagitis, unspecified 04/23/2009 Acute gastritis without mention of hemorrhage 04/23/2008/24/2016 Diaphragmatic hernia without mention of obstruction or gangrene 04/23/2009 10/19/2022 Last Assessment & Plan: Assessment: no surgical intervention Trochanteric bursitis 03/05/20092014 Nontoxic uninodular goiter 01/16/2009 0 02/24/2021 Overview: 08/13/19 thyroid right mid-pole thyroid solid nodule 9 x 7 x 4 mm stable since 2016 Last Assessment & Plan: Assessment: under surveillance Nonallopathic lesion of sacr al region, not elsewhere classified 01/02/2009 11/13/2020 Osteoarthrosis, unspecified whether generalized or localized, unspecified site 11/12/2008 11/13/2020 ABSCESS GROIN 07/23/2008 08/23/2016 Obesity, unspecified 07/15/2008 021 Pain in joint, pelvic region and thigh 06/16/2008 08/24/2016 Aneurysm of thoracic aorta 12/05/2007 1 06/21/2021 Overview: 05/26/2020 echocardiogram LV size and systolic function normal, ejection fraction 62%, grade 1 ventricular diastolic dysfunction. RV size and RV SF normal, aorta borderline dilated 3.8 cm: Status post aortic valve repair with no regurgitation, peak gradient 33 mmHg, mean gradient 19 mmHg . 07/23/2019 nuclear stress: No inducible ischemia or evidence of scarred myocardium, LV size normal LV SF normal. Ejection fraction 70% 11/17/2014 Mini-BAV repair, Ascending aortic replacement Last Assessment & Plan: Assessment: s/p ascending aorta repair in 2014. 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 Assessment: c/o dry eye Plan: ordered refresh eye drops Last Assessment & Plan: Assessment: prosthetic left eye, eye gtts as needed Generalized anxiety disorder 08/24/2016 Overview: Anxiety, Generalized Unspecified asthma(493.90) 0 09/03/2007 Asthma 08/24/2016 documented as of this encounter (statuses as of 03/07/2023) [facility]03-27-2023 History of Past illness Narrative* Problem Noted Date Diagnosed Date Resolved Date Pre-op examination 09/05/2022 Last Assessment & Plan: see note for medical conditions which may affect celestina-operative course that were addressed at today's visit. Depressive disorder 04/21/2022 04/21/20 Postoperative pneumonia 04/21/202204/12 Viral infection 04/21/2022 04/21/2022 Lumbosacral spondylosis with radiculopathy 03/28/2022 04/27/2022 Dependence on continuous pos itive airway pressure ventilation 03/12/2022 04/21/2022 Dependence on other enabling machines and devices 03/12/2022 04/21/2022 Other specified postprocedural states 03/12/2022 04/21/2022 Rheumatoid arthritis, unspecified 03/12/2022 04/21/2022 Ureteric colic 12/20/2021 04/21/2022 Unspecified abdominal pain 12/08/2021 1 06/21/2021 Dyspnea, unspecified 04/05/2021 022 Multiple subsegmental pulmon gia emboli without acute cor pulmonale 12/21/2020 10/19/2022 Overview: Per Dr. Aparicio: -No further treatment is needed. Continue aspirin daily. -Consider using low molecular heparin or apixaban for DVT prophylaxis after surgery in the future. (I recommend 6 - 8 weeks of apixaban after total knee replacement surgery) -Continue age-appropriate cancer screening and follow-up with PCP. Last Assessment & Plan: Developed after previous shoulder surgery in 2020. Completed 6 months of anticoagulants. Followed with Hematology. 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ty 02/17/2017 12/05/2019 Overview: Added automatically from request for surgery [id number] Acute pain of left knee 12/26/2016 06/0 09/2020 Chronic right shoulder pain 12/26/2016 09/16/2020 Gross hematuria 11/24/2016 11/13/2020 Malignant neoplasm of kidney excluding renal pelvis 10/21/2016 02/27/2017 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, without long-term current use of insulin 09/30/2016 017 Neuropathy 09/30/2016 11/13/2020 Last Assessment & Plan: Assessment: stable on rx Asthma with COPD with exacerbation 08/24/2016 02/27/2017 Counseling and coordination of care 12/15/2014 08/24/2016 SUMMARY 11/21/2014 08/24/2016 Overview: Indication for hospital admission/procedure: Aortic aneurysm LVEF: 65% LVH RVF: Normal Important/Relevant PMH/PSH: BAV, Congenital anomaly of aorta, SIVAKUMAR, Asthma, HTN, HPL, DM, anxiety Preoperative Hospital Course Procedure/Surgeries: 11/17/2014 Mini-BAV repair, Ascending aortic replacement Airway Difficulty: No OR Course: Coagulopathy/bleeding requiring correction with 20u cryo, 8u FFP, 4u plts, 3uprbcs and 2 pump runs for repair of aortic cannulation site Pacing wires: out Postoperative Course/General Impression: S/p AVr/Asc aorta replacement. Plan to wean o2, pep, oob, increase diuresis, cont BB, pain and glucose control. Issues to communicate at signout: CT removed CPAP at night echo done CTA done PT rec acute rehab Needs much encouragement wires out 11/23 d/c to acute rehab today Discharge planning 11/21/2014 6 Overview: Pt from [place], [place]. PT rec acute rehab; CM working on placement. Leaving for [facility] in-pt rehab today Hypertension 11/20/2014 02/27/2017 Overview: History: pre op on monopril, norv, Assessment: normotensive currently Plan: Cont BB , cont lasix Atelectasis 11/18/2014 11/19/2014 Overview: Bilateral on CXR. A/P: PEP, EZPAP OOBTC. Volume overload 11/18/2014 08/24/2016 Overview: History: post op Assessment: wt up 5 kg from pre op Plan: cont diuresis On mechanically assisted ventilation 11/17/2014 11/19/2014 Overview: Grade 1 airway. WTE when awake and stable. Extubated on DOS. CPAP at night PEP. Cardiac insufficiency follow ing cardiac surgery 11/17/2014 11/20/2014 Overview: Low CI. CVP low. A/p Epi gtt off. Start BB. Pre-op testing 11/14/2014 08/23/2016 Overview: Images from the original note were not included. [facility] Surgeon: Modesto Cifuentes M.D. Informed Consent Completed: Yes STS Score: unsupported CAD: No Is intended procedure a CABG: No - is a beta hue ordered? No - reason: not indicated H & P completed: Yes 10/28/14 PA/LAT: Completed CT: Completed MRI: N/A LE US: N/A Cath: Yes - reviewed: Yes Echo:Completed EKG: Completed EF %: 65 PI's: N/A Carotid: N/A Mapping: N/A Dental: Completed PFT's: N/A No results for input(s): WBC, HB, HCT, PLT, INR, CREAT in the last 72 hours. UA: Normal HCG:N/A ABO/ABO Confirmed: Yes Blood ordered: No SA Swab: Yes - results: Negative Last Dose of Anticoagulation: OTC 11/12/14 Op Note: N/A Pacemaker Check: N/A Consults: none DM: Yes, A1c: 6.6% Cardiac Surgical prep: N/A SIGNATURE: JERSON Tian CHECKED BY: [email or web address] DATE of SERVICE: 11/14/2014 TIME of SERVICE: 10:59 AM discharge planning 11/10/2014 Overview: 64yo male without any concerns presently Preop testing 11/10/2014 11/12/2014 Overview: Images from the original note were not included. [facility] Surgeon: Modesto Cifuentes M.D. Informed Consent Completed: pending STS Score: unsupported CAD: Yes - CAD on Problem List: Yes Is intended procedure a CABG: No - is a beta hue ordered? No - reason: not indicated H & P completed: Yes PA/LAT: Completed CT: Completed MRI: N/A LE US: N/A Cath: Yes - reviewed: Yes Echo:Completed EKG: Completed EF %: 65 PI's: Completed Carotid: N/A Mapping: N/A Dental: Pending PFT's: Completed No results for input(s): WBC, HB, HCT, PLT, INR, CREAT in the last 72 hours. UA: Normal HCG:N/A ABO/ABO Confirmed: Yes Blood ordered: No SA Swab: Yes - results: Pending Last Dose of Anticoagulation: vit basa LD 11/03 Op Note: N/A Pacemaker Check: N/A Consults: none DM: No Cardiac Surgical prep: N/A SIGNATURE: Ktae Smith RN CHECKED BY: DATE of SERVICE: 11/10/2014 TIME of SERVICE: 10:05 AM Right rotator cuff tear 12/31/201308/10 Pain in joint, shoulder region 12/16/2013 08/24/2016 Essential hypertension, benign 12/03/2013 11/19/2014 Overview: Home RX; Nortvasc, ACEi A/P: NTg gtt to keep MAPS 65-75. Wean off. Hydralazine prn. Start BB when off Epi. Pain in joint, lower leg 04/16/2013 Degenerative tear of medial meniscus 04/16/2013 11/13/2020 Allergic rhinitis 06/29/2012 04/21/2022 Anxiety 07/08/2011 11/13/2020 Overview: Home Rx; Prozac. A/p Restarted Prozac. Esophagitis, unspecified 04/23/2009 Acute gastritis without mention of hemorrhage 04/23/20 09 08/24/2016 Diaphragmatic hernia without mention of obstruction or gangrene 04/23/2009 10/19/2022 Last Assessment & Plan: Assessment: no surgical intervention Trochanteric bursitis 03/05/20092014 Nontoxic uninodular goiter 01/16/2009 0 02/24/2021 Overview: 08/13/19 thyroid right mid-pole thyroid solid nodule 9 x 7 x 4 mm stable since 2016 Last Assessment & Plan: Assessment: under surveillance Nonallopathic lesion of sacr al region, not elsewhere classified 01/02/2009 11/13/2020 Osteoarthrosis, unspecified whether generalized or localized, unspecified site 11/12/2008 11/13/2020 ABSCESS GROIN 07/23/2008 08/23/2016 Obesity, unspecified 07/15/2008 021 Pain in joint, pelvic region and thigh 06/16/2008 08/24/2016 Aneurysm of thoracic aorta 12/05/2007 1 06/21/2021 Overview: 05/26/2020 echocardiogram LV size and systolic function normal, ejection fraction 62%, grade 1 ventricular diastolic dysfunction. RV size and RV SF normal, aorta borderline dilated 3.8 cm: Status post aortic valve repair with no regurgitation, peak gradient 33 mmHg, mean gradient 19 mmHg . 07/23/2019 nuclear stress: No inducible ischemia or evidence of scarred myocardium, LV size normal LV SF normal. Ejection fraction 70% 11/17/2014 Mini-BAV repair, Ascending aortic replacement Last Assessment & Plan: Assessment: s/p ascending aorta repair in 2014. 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 Assessment: c/o dry eye Plan: ordered refresh eye drops Last Assessment & Plan: Assessment: prosthetic left eye, eye gtts as needed Generalized anxiety disorder 08/24/2016 Overview: Anxiety, Generalized Unspecified asthma(493.90) 0 09/03/2007 Asthma 08/24/2016 documented as of this encounter (statuses as of 03/10/2023) [facility]03-27-2023 History of Past illness Narrative* Problem Noted Date Diagnosed Date Resolved Date Pre-op examination 09/05/2022 Last Assessment & Plan: see note for medical conditions which may affect celestina-operative course that were addressed at today's visit. Depressive disorder 04/21/2022 04/21/20 Postoperative pneumonia 04/21/202204/12 Viral infection 04/21/2022 04/21/2022 Lumbosacral spondylosis with radiculopathy 03/28/2022 04/27/2022 Dependence on continuous pos itive airway pressure ventilation 03/12/2022 04/21/2022 Dependence on other enabling machines and devices 03/12/2022 04/21/2022 Other specified postprocedural states 03/12/2022 04/21/2022 Rheumatoid arthritis, unspecified 03/12/2022 04/21/2022 Ureteric colic 12/20/2021 04/21/2022 Unspecified abdominal pain 12/08/2021 1 06/21/2021 Dyspnea, unspecified 04/05/2021 022 Multiple subsegmental pulmon gia emboli without acute cor pulmonale 12/21/2020 10/19/2022 Overview: Per Dr. Aparicio: -No further treatment is needed. Continue aspirin daily. -Consider using low molecular heparin or apixaban for DVT prophylaxis after surgery in the future. (I recommend 6 - 8 weeks of apixaban after total knee replacement surgery) -Continue age-appropriate cancer screening and follow-up with PCP. Last Assessment & Plan: Developed after previous shoulder surgery in 2020. Completed 6 months of anticoagulants. Followed with Hematology. 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ty 02/17/2017 12/05/2019 Overview: Added automatically from request for surgery [id number] Acute pain of left knee 12/26/2016 06/0 09/2020 Chronic right shoulder pain 12/26/2016 09/16/2020 Gross hematuria 11/24/2016 11/13/2020 Malignant neoplasm of kidney excluding renal pelvis 10/21/2016 02/27/2017 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, without long-term current use of insulin 09/30/2016 017 Neuropathy 09/30/2016 11/13/2020 Last Assessment & Plan: Assessment: stable on rx Asthma with COPD with exacerbation (HCC) 08/24/2016 02/27/2017 Counseling and coordination of care 12/15/2014 08/24/2016 SUMMARY 11/21/2014 08/24/2016 Overview: Indication for hospital admission/procedure: Aortic aneurysm LVEF: 65% LVH RVF: Normal Important/Relevant PMH/PSH: BAV, Congenital anomaly of aorta, SIVAKUMAR, Asthma, HTN, HPL, DM, anxiety Preoperative Hospital Course Procedure/Surgeries: 11/17/2014 Mini-BAV repair, Ascending aortic replacement Airway Difficulty: No OR Course: Coagulopathy/bleeding requiring correction with 20u cryo, 8u FFP, 4u plts, 3uprbcs and 2 pump runs for repair of aortic cannulation site Pacing wires: out Postoperative Course/General Impression: S/p AVr/Asc aorta replacement. Plan to wean o2, pep, oob, increase diuresis, cont BB, pain and glucose control. Issues to communicate at signout: CT removed CPAP at night echo done CTA done PT rec acute rehab Needs much encouragement wires out 11/23 d/c to acute rehab today Discharge planning 11/21/201405/03/ 6 Overview: Pt from [place], [place]. PT rec acute rehab; CM working on placement. Leaving for [facility] in-pt rehab today Hypertension 11/20/2014 02/27/2017 Overview: History: pre op on monopril, norv, Assessment: normotensive currently Plan: Cont BB , cont lasix Atelectasis 11/18/2014 11/19/2014 Overview: Bilateral on CXR. A/P: PEP, EZPAP OOBTC. Volume overload 11/18/2014 08/24/2016 Overview: History: post op Assessment: wt up 5 kg from pre op Plan: cont diuresis On mechanically assisted ventilation 11/17/2014 11/19/2014 Overview: Grade 1 airway. WTE when awake and stable. Extubated on DOS. CPAP at night PEP. Cardiac insufficiency follow ing cardiac surgery 11/17/2014 11/20/2014 Overview: Low CI. CVP low. A/p Epi gtt off. Start BB. Pre-op testing 11/14/2014 08/23/2016 Overview: Images from the original note were not included. [facility] Surgeon: Modesto Cifuentes M.D. Informed Consent Completed: Yes STS Score: unsupported CAD: No Is intended procedure a CABG: No - is a beta hue ordered? No - reason: not indicated H & P completed: Yes 10/28/14 PA/LAT: Completed CT: Completed MRI: N/A LE US: N/A Cath: Yes - reviewed: Yes Echo:Completed EKG: Completed EF %: 65 PI's: N/A Carotid: N/A Mapping: N/A Dental: Completed PFT's: N/A No results for input(s): WBC, HB, HCT, PLT, INR, CREAT in the last 72 hours. UA: Normal HCG:N/A ABO/ABO Confirmed: Yes Blood ordered: No SA Swab: Yes - results: Negative Last Dose of Anticoagulation: OTC 11/12/14 Op Note: N/A Pacemaker Check: N/A Consults: none DM: Yes, A1c: 6.6% Cardiac Surgical prep: N/A SIGNATURE: JERSON Tian CHECKED BY: [email or web address] DATE of SERVICE: 11/14/2014 TIME of SERVICE: 10:59 AM discharge planning 11/10/2014 5 Overview: 64yo male without any concerns presently Preop testing 11/10/2014 11/12/2014 Overview: Images from the original note were not included. [facility] Surgeon: Modesto Cifuentes M.D. Informed Consent Completed: pending STS Score: unsupported CAD: Yes - CAD on Problem List: Yes Is intended procedure a CABG: No - is a beta hue ordered? No - reason: not indicated H & P completed: Yes PA/LAT: Completed CT: Completed MRI: N/A LE US: N/A Cath: Yes - reviewed: Yes Echo:Completed EKG: Completed EF %: 65 PI's: Completed Carotid: N/A Mapping: N/A Dental: Pending PFT's: Completed No results for input(s): WBC, HB, HCT, PLT, INR, CREAT in the last 72 hours. UA: Normal HCG:N/A ABO/ABO Confirmed: Yes Blood ordered: No SA Swab: Yes - results: Pending Last Dose of Anticoagulation: vit basa LD 11/03 Op Note: N/A Pacemaker Check: N/A Consults: none DM: No Cardiac Surgical prep: N/A SIGNATURE: Kate Smith RN CHECKED BY: DATE of SERVICE: 11/10/2014 TIME of SERVICE: 10:05 AM Right rotator cuff tear 12/31/201308/10 Pain in joint, shoulder region 12/16/2013 08/24/2016 Essential hypertension, benign 12/03/2013 11/19/2014 Overview: Home RX; Nortvasc, ACEi A/P: NTg gtt to keep MAPS 65-75. Wean off. Hydralazine prn. Start BB when off Epi. Pain in joint, lower leg 04/16/2013 Degenerative tear of medial meniscus 04/16/2013 11/13/2020 Allergic rhinitis 06/29/2012 04/21/2022 Anxiety 07/08/2011 11/13/2020 Overview: Home Rx; Prozac. A/p Restarted Prozac. Esophagitis, unspecified 04/23/2009 Acute gastritis without mention of hemorrhage 04/23/20 09 08/24/2016 Diaphragmatic hernia without mention of obstruction or gangrene 04/23/2009 10/19/2022 Last Assessment & Plan: Assessment: no surgical intervention Trochanteric bursitis 03/05/20092014 Nontoxic uninodular goiter 01/16/2009 0 02/24/2021 Overview: 08/13/19 US thyroid right mid-pole thyroid solid nodule 9 x 7 x 4 mm stable since 2016 Last Assessment & Plan: Assessment: under surveillance Nonallopathic lesion of sacr al region, not elsewhere classified 01/02/2009 11/13/2020 Osteoarthrosis, unspecified whether generalized or localized, unspecified site 11/12/2008 11/13/2020 ABSCESS GROIN 07/23/2008 08/23/2016 Obesity, unspecified 07/15/2008 021 Pain in joint, pelvic region and thigh 06/16/2008 08/24/2016 Aneurysm of thoracic aorta 12/05/2007 1 06/21/2021 Overview: 05/26/2020 echocardiogram LV size and systolic function normal, ejection fraction 62%, grade 1 ventricular diastolic dysfunction. RV size and RV SF normal, aorta borderline dilated 3.8 cm: Status post aortic valve repair with no regurgitation, peak gradient 33 mmHg, mean gradient 19 mmHg . 07/23/2019 nuclear stress: No inducible ischemia or evidence of scarred myocardium, LV size normal LV SF normal. Ejection fraction 70% 11/17/2014 Mini-BAV repair, Ascending aortic replacement Last Assessment & Plan: Assessment: s/p ascending aorta repair in 2014. 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 Assessment: c/o dry eye Plan: ordered refresh eye drops Last Assessment & Plan: Assessment: prosthetic left eye, eye gtts as needed Generalized anxiety disorder 08/24/2016 Overview: Anxiety, Generalized Unspecified asthma(493.90) 0 09/03/2007 Asthma 08/24/2016 documented as of this encounter (statuses as of 03/15/2023) [facility]03-27-2023 History of Past illness Narrative* Problem Noted Date Diagnosed Date Resolved Date Pre-op examination 09/05/2022 Last Assessment & Plan: see note for medical conditions which may affect celestina-operative course that were addressed at today's visit. Depressive disorder 04/21/2022 04/21/20 Postoperative pneumonia 04/21/202204/12 Viral infection 04/21/2022 04/21/2022 Lumbosacral spondylosis with radiculopathy 03/28/2022 04/27/2022 Dependence on continuous pos itive airway pressure ventilation 03/12/2022 04/21/2022 Dependence on other enabling machines and devices 03/12/2022 04/21/2022 Other specified postprocedural states 03/12/2022 04/21/2022 Rheumatoid arthritis, unspecified 03/12/2022 04/21/2022 Ureteric colic 12/20/2021 04/21/2022 Unspecified abdominal pain 12/08/2021 1 06/21/2021 Dyspnea, unspecified 04/05/2021 022 Multiple subsegmental pulmon gia emboli without acute cor pulmonale 12/21/2020 10/19/2022 Overview: Per Dr. Aparicio: -No further treatment is needed. Continue aspirin daily. -Consider using low molecular heparin or apixaban for DVT prophylaxis after surgery in the future. (I recommend 6 - 8 weeks of apixaban after total knee replacement surgery) -Continue age-appropriate cancer screening and follow-up with PCP. Last Assessment & Plan: Developed after previous shoulder surgery in 2020. Completed 6 months of anticoagulants. Followed with Hematology. 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ty 02/17/2017 12/05/2019 Overview: Added automatically from request for surgery [id number] Acute pain of left knee 12/26/2016 06/0 09/2020 Chronic right shoulder pain 12/26/2016 09/16/2020 Gross hematuria 11/24/2016 11/13/2020 Malignant neoplasm of kidney excluding renal pelvis 10/21/2016 02/27/2017 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, without long-term current use of insulin 09/30/2016 017 Neuropathy 09/30/2016 11/13/2020 Last Assessment & Plan: Assessment: stable on rx Asthma with COPD with exacerbation (HCC) 08/24/2016 02/27/2017 Counseling and coordination of care 12/15/2014 08/24/2016 SUMMARY 11/21/2014 08/24/2016 Overview: Indication for hospital admission/procedure: Aortic aneurysm LVEF: 65% LVH RVF: Normal Important/Relevant PMH/PSH: BAV, Congenital anomaly of aorta, SIVAKUMAR, Asthma, HTN, HPL, DM, anxiety Preoperative Hospital Course Procedure/Surgeries: 11/17/2014 Mini-BAV repair, Ascending aortic replacement Airway Difficulty: No OR Course: Coagulopathy/bleeding requiring correction with 20u cryo, 8u FFP, 4u plts, 3uprbcs and 2 pump runs for repair of aortic cannulation site Pacing wires: out Postoperative Course/General Impression: S/p AVr/Asc aorta replacement. Plan to wean o2, pep, oob, increase diuresis, cont BB, pain and glucose control. Issues to communicate at signout: CT removed CPAP at night echo done CTA done PT rec acute rehab Needs much encouragement wires out 11/23 d/c to acute rehab today Discharge planning 11/21/201405/03/ 6 Overview: Pt from [place], [place]. PT rec acute rehab; CM working on placement. Leaving for [facility] in-pt rehab today Hypertension 11/20/2014 02/27/2017 Overview: History: pre op on monopril, norv, Assessment: normotensive currently Plan: Cont BB , cont lasix Atelectasis 11/18/2014 11/19/2014 Overview: Bilateral on CXR. A/P: PEP, EZPAP OOBTC. Volume overload 11/18/2014 08/24/2016 Overview: History: post op Assessment: wt up 5 kg from pre op Plan: cont diuresis On mechanically assisted ventilation 11/17/2014 11/19/2014 Overview: Grade 1 airway. WTE when awake and stable. Extubated on DOS. CPAP at night PEP. Cardiac insufficiency follow ing cardiac surgery 11/17/2014 11/20/2014 Overview: Low CI. CVP low. A/p Epi gtt off. Start BB. Pre-op testing 11/14/2014 08/23/2016 Overview: Images from the original note were not included. [facility] Surgeon: Modesto Cifuentes M.D. Informed Consent Completed: Yes STS Score: unsupported CAD: No Is intended procedure a CABG: No - is a beta hue ordered? No - reason: not indicated H & P completed: Yes 10/28/14 PA/LAT: Completed CT: Completed MRI: N/A LE US: N/A Cath: Yes - reviewed: Yes Echo:Completed EKG: Completed EF %: 65 PI's: N/A Carotid: N/A Mapping: N/A Dental: Completed PFT's: N/A No results for input(s): WBC, HB, HCT, PLT, INR, CREAT in the last 72 hours. UA: Normal HCG:N/A ABO/ABO Confirmed: Yes Blood ordered: No SA Swab: Yes - results: Negative Last Dose of Anticoagulation: OTC 11/12/14 Op Note: N/A Pacemaker Check: N/A Consults: none DM: Yes, A1c: 6.6% Cardiac Surgical prep: N/A SIGNATURE: JERSON Tian CHECKED BY: [email or web address] DATE of SERVICE: 11/14/2014 TIME of SERVICE: 10:59 AM discharge planning 11/10/2014 5 Overview: 64yo male without any concerns presently Preop testing 11/10/2014 11/12/2014 Overview: Images from the original note were not included. [facility] Surgeon: Modesto Cifuentes M.D. Informed Consent Completed: pending STS Score: unsupported CAD: Yes - CAD on Problem List: Yes Is intended procedure a CABG: No - is a beta hue ordered? No - reason: not indicated H & P completed: Yes PA/LAT: Completed CT: Completed MRI: N/A LE US: N/A Cath: Yes - reviewed: Yes Echo:Completed EKG: Completed EF %: 65 PI's: Completed Carotid: N/A Mapping: N/A Dental: Pending PFT's: Completed No results for input(s): WBC, HB, HCT, PLT, INR, CREAT in the last 72 hours. UA: Normal HCG:N/A ABO/ABO Confirmed: Yes Blood ordered: No SA Swab: Yes - results: Pending Last Dose of Anticoagulation: vit basa LD 11/03 Op Note: N/A Pacemaker Check: N/A Consults: none DM: No Cardiac Surgical prep: N/A SIGNATURE: Kate Smith RN CHECKED BY: DATE of SERVICE: 11/10/2014 TIME of SERVICE: 10:05 AM Right rotator cuff tear 12/31/201308/10 Pain in joint, shoulder region 12/16/2013 08/24/2016 Essential hypertension, benign 12/03/2013 11/19/2014 Overview: Home RX; Nortvasc, ACEi A/P: NTg gtt to keep MAPS 65-75. Wean off. Hydralazine prn. Start BB when off Epi. Pain in joint, lower leg 04/16/2013 Degenerative tear of medial meniscus 04/16/2013 11/13/2020 Allergic rhinitis 06/29/2012 04/21/2022 Anxiety 07/08/2011 11/13/2020 Overview: Home Rx; Prozac. A/p Restarted Prozac. Esophagitis, unspecified 04/23/2009 Acute gastritis without mention of hemorrhage 04/23/20 09 08/24/2016 Diaphragmatic hernia without mention of obstruction or gangrene 04/23/2009 10/19/2022 Last Assessment & Plan: Assessment: no surgical intervention Trochanteric bursitis 03/05/20092014 Nontoxic uninodular goiter 01/16/2009 0 02/24/2021 Overview: 08/13/19 US thyroid right mid-pole thyroid solid nodule 9 x 7 x 4 mm stable since 2017 Last Assessment & Plan: Assessment: under surveillance Nonallopathic lesion of sacr al region, not elsewhere classified 01/02/2009 11/13/2020 Osteoarthrosis, unspecified whether generalized or localized, unspecified site 11/12/2008 11/13/2020 ABSCESS GROIN 07/23/2008 08/23/2016 Obesity, unspecified 07/15/2008 021 Pain in joint, pelvic region and thigh 06/16/2008 08/24/2016 Aneurysm of thoracic aorta 12/05/2007 1 06/21/2021 Overview: 05/26/2020 echocardiogram LV size and systolic function normal, ejection fraction 62%, grade 1 ventricular diastolic dysfunction. RV size and RV SF normal, aorta borderline dilated 3.8 cm: Status post aortic valve repair with no regurgitation, peak gradient 33 mmHg, mean gradient 19 mmHg . 07/23/2019 nuclear stress: No inducible ischemia or evidence of scarred myocardium, LV size normal LV SF normal. Ejection fraction 70% 11/17/2014 Mini-BAV repair, Ascending aortic replacement Last Assessment & Plan: Assessment: s/p ascending aorta repair in 2014. 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 Assessment: c/o dry eye Plan: ordered refresh eye drops Last Assessment & Plan: Assessment: prosthetic left eye, eye gtts as needed Generalized anxiety disorder 08/24/2016 Overview: Anxiety, Generalized Unspecified asthma(493.90) 0 09/03/2007 Asthma 08/24/2016 documented as of this encounter (statuses as of 03/30/2023) [facility]03-27-2023 History of Past illness Narrative* Problem Noted Date Diagnosed Date Resolved Date Pre-op examination 09/05/2022 Last Assessment & Plan: see note for medical conditions which may affect celestina-operative course that were addressed at today's visit. Depressive disorder 04/21/2022 04/21/20 Postoperative pneumonia 04/21/2022 11 Viral infection 04/21/2022 04/21/2022 Lumbosacral spondylosis with radiculopathy 03/28/2022 04/27/2022 Dependence on continuous pos itive airway pressure ventilation 03/12/2022 04/21/2022 Dependence on other enabling machines and devices 03/12/2022 04/21/2022 Other specified postprocedural states 03/12/2022 04/21/2022 Rheumatoid arthritis, unspecified 03/12/2022 04/21/2022 Ureteric colic 12/20/2021 04/21/2022 Unspecified abdominal pain 12/08/2021 1 06/21/2021 Dyspnea, unspecified 04/05/2021 022 Multiple subsegmental pulmon gia emboli without acute cor pulmonale 12/21/2020 10/19/2022 Overview: Per Dr. Aparicio: -No further treatment is needed. Continue aspirin daily. -Consider using low molecular heparin or apixaban for DVT prophylaxis after surgery in the future. (I recommend 6 - 8 weeks of apixaban after total knee replacement surgery) -Continue age-appropriate cancer screening and follow-up with PCP. Last Assessment & Plan: Developed after previous shoulder surgery in 2020. Completed 6 months of anticoagulants. Followed with Hematology. 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ty 02/17/2017 12/05/2019 Overview: Added automatically from request for surgery [id number] Acute pain of left knee 12/26/2016 06/0 09/2020 Chronic right shoulder pain 12/26/2016 09/16/2020 Gross hematuria 11/24/2016 11/13/2020 Malignant neoplasm of kidney excluding renal pelvis 10/21/2016 02/27/2017 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, without long-term current use of insulin 09/30/2016 017 Neuropathy 09/30/2016 11/13/2020 Last Assessment & Plan: Assessment: stable on rx Asthma with COPD with exacerbation (HCC) 08/24/2016 02/27/2017 Counseling and coordination of care 12/15/2014 08/24/2016 SUMMARY 11/21/2014 08/24/2016 Overview: Indication for hospital admission/procedure: Aortic aneurysm LVEF: 65% LVH RVF: Normal Important/Relevant PMH/PSH: BAV, Congenital anomaly of aorta, SIVAKUMAR, Asthma, HTN, HPL, DM, anxiety Preoperative Hospital Course Procedure/Surgeries: 11/17/2014 Mini-BAV repair, Ascending aortic replacement Airway Difficulty: No OR Course: Coagulopathy/bleeding requiring correction with 20u cryo, 8u FFP, 4u plts, 3uprbcs and 2 pump runs for repair of aortic cannulation site Pacing wires: out Postoperative Course/General Impression: S/p AVr/Asc aorta replacement. Plan to wean o2, pep, oob, increase diuresis, cont BB, pain and glucose control. Issues to communicate at signout: CT removed CPAP at night echo done CTA done PT rec acute rehab Needs much encouragement wires out 11/23 d/c to acute rehab today Discharge planning 11/21/2014 6 Overview: Pt from [place], [place]. PT rec acute rehab; CM working on placement. Leaving for [facility] in-pt rehab today Hypertension 11/20/2014 02/27/2017 Overview: History: pre op on monopril, norv, Assessment: normotensive currently Plan: Cont BB , cont lasix Atelectasis 11/18/2014 11/19/2014 Overview: Bilateral on CXR. A/P: PEP, EZPAP OOBTC. Volume overload 11/18/2014 08/24/2016 Overview: History: post op Assessment: wt up 5 kg from pre op Plan: cont diuresis On mechanically assisted ventilation 11/17/2014 11/19/2014 Overview: Grade 1 airway. WTE when awake and stable. Extubated on DOS. CPAP at night PEP. Cardiac insufficiency follow ing cardiac surgery 11/17/2014 11/20/2014 Overview: Low CI. CVP low. A/p Epi gtt off. Start BB. Pre-op testing 11/14/2014 08/23/2016 Overview: Images from the original note were not included. [facility] Surgeon: Modesto Cifuentes M.D. Informed Consent Completed: Yes STS Score: unsupported CAD: No Is intended procedure a CABG: No - is a beta hue ordered? No - reason: not indicated H & P completed: Yes 10/28/14 PA/LAT: Completed CT: Completed MRI: N/A LE US: N/A Cath: Yes - reviewed: Yes Echo:Completed EKG: Completed EF %: 65 PI's: N/A Carotid: N/A Mapping: N/A Dental: Completed PFT's: N/A No results for input(s): WBC, HB, HCT, PLT, INR, CREAT in the last 72 hours. UA: Normal HCG:N/A ABO/ABO Confirmed: Yes Blood ordered: No SA Swab: Yes - results: Negative Last Dose of Anticoagulation: OTC 11/12/14 Op Note: N/A Pacemaker Check: N/A Consults: none DM: Yes, A1c: 6.6% Cardiac Surgical prep: N/A SIGNATURE: JERSON Tian CHECKED BY: [email or web address] DATE of SERVICE: 11/14/2014 TIME of SERVICE: 10:59 AM discharge planning 11/10/2014 5 Overview: 64yo male without any concerns presently Preop testing 11/10/2014 11/12/2014 Overview: Images from the original note were not included. [facility] Surgeon: Modesto Cifuentes M.D. Informed Consent Completed: pending STS Score: unsupported CAD: Yes - CAD on Problem List: Yes Is intended procedure a CABG: No - is a beta hue ordered? No - reason: not indicated H & P completed: Yes PA/LAT: Completed CT: Completed MRI: N/A LE US: N/A Cath: Yes - reviewed: Yes Echo:Completed EKG: Completed EF %: 65 PI's: Completed Carotid: N/A Mapping: N/A Dental: Pending PFT's: Completed No results for input(s): WBC, HB, HCT, PLT, INR, CREAT in the last 72 hours. UA: Normal HCG:N/A ABO/ABO Confirmed: Yes Blood ordered: No SA Swab: Yes - results: Pending Last Dose of Anticoagulation: vit basa LD 11/03 Op Note: N/A Pacemaker Check: N/A Consults: none DM: No Cardiac Surgical prep: N/A SIGNATURE: Kate Smith RN CHECKED BY: DATE of SERVICE: 11/10/2014 TIME of SERVICE: 10:05 AM Right rotator cuff tear 12/31/201308/10 Pain in joint, shoulder region 12/16/2013 08/24/2016 Essential hypertension, benign 12/03/2013 11/19/2014 Overview: Home RX; Nortvasc, ACEi A/P: NTg gtt to keep MAPS 65-75. Wean off. Hydralazine prn. Start BB when off Epi. Pain in joint, lower leg 04/16/2013 Degenerative tear of medial meniscus 04/16/2013 11/13/2020 Allergic rhinitis 06/29/2012 04/21/2022 Anxiety 07/08/2011 11/13/2020 Overview: Home Rx; Prozac. A/p Restarted Prozac. Esophagitis, unspecified 04/23/2009 Acute gastritis without mention of hemorrhage 04/23/20 09 08/24/2016 Diaphragmatic hernia without mention of obstruction or gangrene 04/23/2009 10/19/2022 Last Assessment & Plan: Assessment: no surgical intervention Trochanteric bursitis 03/05/20092014 Nontoxic uninodular goiter 01/16/2009 0 02/24/2021 Overview: 08/13/19 US thyroid right mid-pole thyroid solid nodule 9 x 7 x 4 mm stable since 2016 Last Assessment & Plan: Assessment: under surveillance Nonallopathic lesion of sacr al region, not elsewhere classified 01/02/2009 11/13/2020 Osteoarthrosis, unspecified whether generalized or localized, unspecified site 11/12/2008 11/13/2020 ABSCESS GROIN 07/23/2008 08/23/2016 Obesity, unspecified 07/15/2008 021 Pain in joint, pelvic region and thigh 06/16/2008 08/24/2016 Aneurysm of thoracic aorta 12/05/2007 1 06/21/2021 Overview: 05/26/2020 echocardiogram LV size and systolic function normal, ejection fraction 62%, grade 1 ventricular diastolic dysfunction. RV size and RV SF normal, aorta borderline dilated 3.8 cm: Status post aortic valve repair with no regurgitation, peak gradient 33 mmHg, mean gradient 19 mmHg . 07/23/2019 nuclear stress: No inducible ischemia or evidence of scarred myocardium, LV size normal LV SF normal. Ejection fraction 70% 11/17/2014 Mini-BAV repair, Ascending aortic replacement Last Assessment & Plan: Assessment: s/p ascending aorta repair in 2014. 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 Assessment: c/o dry eye Plan: ordered refresh eye drops Last Assessment & Plan: Assessment: prosthetic left eye, eye gtts as needed Generalized anxiety disorder 08/24/2016 Overview: Anxiety, Generalized Unspecified asthma(493.90) 0 09/03/2007 Asthma 08/24/2016 documented as of this encounter (statuses as of 04/26/2023) [facility]03-27-2023 History of Past illness Narrative* Problem Noted Date Diagnosed Date Resolved Date Pre-op examination 09/05/2022 Last Assessment & Plan: see note for medical conditions which may affect celestina-operative course that were addressed at today's visit. Depressive disorder 04/21/2022 04/21/20 22 Postoperative pneumonia 04/21/202204/12 Viral infection 04/21/2022 04/21/2022 Lumbosacral spondylosis with radiculopathy 03/28/2022 04/27/2022 Dependence on continuous pos itive airway pressure ventilation 03/12/2022 04/21/2022 Dependence on other enabling machines and devices 03/12/2022 04/21/2022 Other specified postprocedural states 03/12/2022 04/21/2022 Rheumatoid arthritis, unspecified 03/12/2022 04/21/2022 Ureteric colic 12/20/2021 04/21/2022 Unspecified abdominal pain 12/08/2021 1 06/21/2021 Dyspnea, unspecified 04/05/2021 022 Multiple subsegmental pulmon gia emboli without acute cor pulmonale 12/21/2020 10/19/2022 Overview: Per Dr. Aparicio: -No further treatment is needed. Continue aspirin daily. -Consider using low molecular heparin or apixaban for DVT prophylaxis after surgery in the future. (I recommend 6 - 8 weeks of apixaban after total knee replacement surgery) -Continue age-appropriate cancer screening and follow-up with PCP. Last Assessment & Plan: Developed after previous shoulder surgery in 2020. Completed 6 months of anticoagulants. Followed with Hematology. 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ty 02/17/2017 12/05/2019 Overview: Added automatically from request for surgery [id number] Acute pain of left knee 12/26/2016 0609/2020 Chronic right shoulder pain 12/26/2016 09/16/2020 Gross hematuria 11/24/2016 11/13/2020 Malignant neoplasm of kidney excluding renal pelvis 10/21/2016 02/27/2017 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, without long-term current use of insulin 09/30/2016 017 Neuropathy 09/30/2016 11/13/2020 Last Assessment & Plan: Assessment: stable on rx Asthma with COPD with exacerbation (HCC) 08/24/2016 02/27/2017 Counseling and coordination of care 12/15/2014 08/24/2016 SUMMARY 11/21/2014 08/24/2016 Overview: Indication for hospital admission/procedure: Aortic aneurysm LVEF: 65% LVH RVF: Normal Important/Relevant PMH/PSH: BAV, Congenital anomaly of aorta, SIVAKUMAR, Asthma, HTN, HPL, DM, anxiety Preoperative Hospital Course Procedure/Surgeries: 11/17/2014 Mini-BAV repair, Ascending aortic replacement Airway Difficulty: No OR Course: Coagulopathy/bleeding requiring correction with 20u cryo, 8u FFP, 4u plts, 3uprbcs and 2 pump runs for repair of aortic cannulation site Pacing wires: out Postoperative Course/General Impression: S/p AVr/Asc aorta replacement. Plan to wean o2, pep, oob, increase diuresis, cont BB, pain and glucose control. Issues to communicate at signout: CT removed CPAP at night echo done CTA done PT rec acute rehab Needs much encouragement wires out 11/23 d/c to acute rehab today Discharge planning 11/21/201405/03/ 6 Overview: Pt from [place], [place]. PT rec acute rehab; CM working on placement. Leaving for [facility] in-[facility] rehab today Hypertension 11/20/2014 02/27/2017 Overview: History: pre op on monopril, norv, Assessment: normotensive currently Plan: Cont BB , cont lasix Atelectasis 11/18/2014 11/19/2014 Overview: Bilateral on CXR. A/P: PEP, EZPAP OOBTC. Volume overload 11/18/2014 08/24/2016 Overview: History: post op Assessment: wt up 5 kg from pre op Plan: cont diuresis On mechanically assisted ventilation 11/17/2014 11/19/2014 Overview: Grade 1 airway. WTE when awake and stable. Extubated on DOS. CPAP at night PEP. Cardiac insufficiency follow ing cardiac surgery 11/17/2014 11/20/2014 Overview: Low CI. CVP low. A/p Epi gtt off. Start BB. Pre-op testing 11/14/2014 08/23/2016 Overview: Images from the original note were not included. [facility] Surgeon: Modesto Cifuentes M.D. Informed Consent Completed: Yes STS Score: unsupported CAD: No Is intended procedure a CABG: No - is a beta hue ordered? No - reason: not indicated H & P completed: Yes 10/28/14 PA/LAT: Completed CT: Completed MRI: N/A LE US: N/A Cath: Yes - reviewed: Yes Echo:Completed EKG: Completed EF %: 65 PI's: N/A Carotid: N/A Mapping: N/A Dental: Completed PFT's: N/A No results for input(s): WBC, HB, HCT, PLT, INR, CREAT in the last 72 hours. UA: Normal HCG:N/A ABO/ABO Confirmed: Yes Blood ordered: No SA Swab: Yes - results: Negative Last Dose of Anticoagulation: OTC 11/12/14 Op Note: N/A Pacemaker Check: N/A Consults: none DM: Yes, A1c: 6.6% Cardiac Surgical prep: N/A SIGNATURE: JERSON Tian CHECKED BY: [email or web address] DATE of SERVICE: 11/14/2014 TIME of SERVICE: 10:59 AM discharge planning 11/10/2014 5 Overview: 64yo male without any concerns presently Preop testing 11/10/2014 11/12/2014 Overview: Images from the original note were not included. [facility] Surgeon: Modesto Cifuentes M.D. Informed Consent Completed: pending STS Score: unsupported CAD: Yes - CAD on Problem List: Yes Is intended procedure a CABG: No - is a beta hue ordered? No - reason: not indicated H & P completed: Yes PA/LAT: Completed CT: Completed MRI: N/A LE US: N/A Cath: Yes - reviewed: Yes Echo:Completed EKG: Completed EF %: 65 PI's: Completed Carotid: N/A Mapping: N/A Dental: Pending PFT's: Completed No results for input(s): WBC, HB, HCT, PLT, INR, CREAT in the last 72 hours. UA: Normal HCG:N/A ABO/ABO Confirmed: Yes Blood ordered: No SA Swab: Yes - results: Pending Last Dose of Anticoagulation: vit basa LD 11/03 Op Note: N/A Pacemaker Check: N/A Consults: none DM: No Cardiac Surgical prep: N/A SIGNATURE: Kate Smith RN CHECKED BY: DATE of SERVICE: 11/10/2014 TIME of SERVICE: 10:05 AM Right rotator cuff tear 12/31/201308/10 Pain in joint, shoulder region 12/16/2013 08/24/2016 Essential hypertension, benign 12/03/2013 11/19/2014 Overview: Home RX; Nortvasc, ACEi A/P: NTg gtt to keep MAPS 65-75. Wean off. Hydralazine prn. Start BB when off Epi. Pain in joint, lower leg 04/16/2013 Degenerative tear of medial meniscus 04/16/2013 11/13/2020 Allergic rhinitis 06/29/2012 04/21/2022 Anxiety 07/08/2011 11/13/2020 Overview: Home Rx; Prozac. A/p Restarted Prozac. Esophagitis, unspecified 04/23/2009 Acute gastritis without mention of hemorrhage 04/23/20 09 08/24/2016 Diaphragmatic hernia without mention of obstruction or gangrene 04/23/2009 10/19/2022 Last Assessment & Plan: Assessment: no surgical intervention Trochanteric bursitis 03/05/20092014 Nontoxic uninodular goiter 01/16/2009 0 02/24/2021 Overview: 08/13/19 thyroid right mid-pole thyroid solid nodule 9 x 7 x 4 mm stable since 2016 Last Assessment & Plan: Assessment: under surveillance Nonallopathic lesion of sacr al region, not elsewhere classified 01/02/2009 11/13/2020 Osteoarthrosis, unspecified whether generalized or localized, unspecified site 11/12/2008 11/13/2020 ABSCESS GROIN 07/23/2008 08/23/2016 Obesity, unspecified 07/15/2008 021 Pain in joint, pelvic region and thigh 06/16/2008 08/24/2016 Aneurysm of thoracic aorta 12/05/2007 1 06/21/2021 Overview: 05/26/2020 echocardiogram LV size and systolic function normal, ejection fraction 62%, grade 1 ventricular diastolic dysfunction. RV size and RV SF normal, aorta borderline dilated 3.8 cm: Status post aortic valve repair with no regurgitation, peak gradient 33 mmHg, mean gradient 19 mmHg . 07/23/2019 nuclear stress: No inducible ischemia or evidence of scarred myocardium, LV size normal LV SF normal. Ejection fraction 70% 11/17/2014 Mini-BAV repair, Ascending aortic replacement Last Assessment & Plan: Assessment: s/p ascending aorta repair in 2014. 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 Assessment: c/o dry eye Plan: ordered refresh eye drops Last Assessment & Plan: Assessment: prosthetic left eye, eye gtts as needed Generalized anxiety disorder 08/24/2016 Overview: Anxiety, Generalized Unspecified asthma(493.90) 0 09/03/2007 Asthma 08/24/2016 documented as of this encounter (statuses as of 05/03/2023) [facility]03-27-[facility]23 History of Past illness Narrative* Problem Noted Date Diagnosed Date Resolved Date Pre-op examination 09/05/2022 Last Assessment & Plan: see note for medical conditions which may affect celestina-operative course that were addressed at today's visit. Depressive disorder 04/21/2022 04/21/20 Postoperative pneumonia 04/21/202204/12 Viral infection 04/21/2022 04/21/2022 Lumbosacral spondylosis with radiculopathy 03/28/2022 04/27/2022 Dependence on continuous pos itive airway pressure ventilation 03/12/2022 04/21/2022 Dependence on other enabling machines and devices 03/12/2022 04/21/2022 Other specified postprocedural states 03/12/2022 04/21/2022 Rheumatoid arthritis, unspecified 03/12/2022 04/21/2022 Ureteric colic 12/20/2021 04/21/2022 Unspecified abdominal pain 12/08/2021 1 06/21/2021 Dyspnea, unspecified 04/05/2021 022 Multiple subsegmental pulmon gia emboli without acute cor pulmonale 12/21/2020 10/19/2022 Overview: Per Dr. Aparicio: -No further treatment is needed. Continue aspirin daily. -Consider using low molecular heparin or apixaban for DVT prophylaxis after surgery in the future. (I recommend 6 - 8 weeks of apixaban after total knee replacement surgery) -Continue age-appropriate cancer screening and follow-up with PCP. Last Assessment & Plan: Developed after previous shoulder surgery in 2020. Completed 6 months of anticoagulants. Followed with Hematology. 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ty 02/17/2017 12/05/2019 Overview: Added automatically from request for surgery [id number] Acute pain of left knee 12/26/2016 06/0 09/2020 Chronic right shoulder pain 12/26/2016 09/16/2020 Gross hematuria 11/24/2016 11/13/2020 Malignant neoplasm of kidney excluding renal pelvis 10/21/2016 02/27/2017 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, without long-term current use of insulin 09/30/2016 017 Neuropathy 09/30/2016 11/13/2020 Last Assessment & Plan: Assessment: stable on rx Asthma with COPD with exacerbation (HCC) 08/24/2016 02/27/2017 Counseling and coordination of care 12/15/2014 08/24/2016 SUMMARY 11/21/2014 08/24/2016 Overview: Indication for hospital admission/procedure: Aortic aneurysm LVEF: 65% LVH RVF: Normal Important/Relevant PMH/PSH: BAV, Congenital anomaly of aorta, SIVAKUMAR, Asthma, HTN, HPL, DM, anxiety Preoperative Hospital Course Procedure/Surgeries: 11/17/2014 Mini-BAV repair, Ascending aortic replacement Airway Difficulty: No OR Course: Coagulopathy/bleeding requiring correction with 20u cryo, 8u FFP, 4u plts, 3uprbcs and 2 pump runs for repair of aortic cannulation site Pacing wires: out Postoperative Course/General Impression: S/p AVr/Asc aorta replacement. Plan to wean o2, pep, oob, increase diuresis, cont BB, pain and glucose control. Issues to communicate at signout: CT removed CPAP at night echo done CTA done PT rec acute rehab Needs much encouragement wires out 11/23 d/c to acute rehab today Discharge planning 11/21/2014 6 Overview: Pt from [place], [place]. PT rec acute rehab; CM working on placement. Leaving for [facility] in-pt rehab today Hypertension 11/20/2014 02/27/2017 Overview: History: pre op on monopril, norv, Assessment: normotensive currently Plan: Cont BB , cont lasix Atelectasis 11/18/2014 11/19/2014 Overview: Bilateral on CXR. A/P: PEP, EZPAP OOBTC. Volume overload 11/18/2014 08/24/2016 Overview: History: post op Assessment: wt up 5 kg from pre op Plan: cont diuresis On mechanically assisted ventilation 11/17/2014 11/19/2014 Overview: Grade 1 airway. WTE when awake and stable. Extubated on DOS. CPAP at night PEP. Cardiac insufficiency follow ing cardiac surgery 11/17/2014 11/20/2014 Overview: Low CI. CVP low. A/p Epi gtt off. Start BB. Pre-op testing 11/14/2014 08/23/2016 Overview: Images from the original note were not included. [facility] Surgeon: Modesto Cifuentes M.D. Informed Consent Completed: Yes STS Score: unsupported CAD: No Is intended procedure a CABG: No - is a beta hue ordered? No - reason: not indicated H & P completed: Yes 10/28/14 PA/LAT: Completed CT: Completed MRI: N/A LE US: N/A Cath: Yes - reviewed: Yes Echo:Completed EKG: Completed EF %: 65 PI's: N/A Carotid: N/A Mapping: N/A Dental: Completed PFT's: N/A No results for input(s): WBC, HB, HCT, PLT, INR, CREAT in the last 72 hours. UA: Normal HCG:N/A ABO/ABO Confirmed: Yes Blood ordered: No SA Swab: Yes - results: Negative Last Dose of Anticoagulation: OTC 11/12/14 Op Note: N/A Pacemaker Check: N/A Consults: none DM: Yes, A1c: 6.6% Cardiac Surgical prep: N/A SIGNATURE: JERSON Tian CHECKED BY: [email or web address] DATE of SERVICE: 11/14/2014 TIME of SERVICE: 10:59 AM discharge planning 11/10/2014 5 Overview: 64yo male without any concerns presently Preop testing 11/10/2014 11/12/2014 Overview: Images from the original note were not included. [facility] PRE-[facility] Surgeon: Modesto Cifuentes M.D. Informed Consent Completed: pending STS Score: unsupported CAD: Yes - CAD on Problem List: Yes Is intended procedure a CABG: No - is a beta hue ordered? No - reason: not indicated H & P completed: Yes PA/LAT: Completed CT: Completed MRI: N/A LE US: N/A Cath: Yes - reviewed: Yes Echo:Completed EKG: Completed EF %: 65 PI's: Completed Carotid: N/A Mapping: N/A Dental: Pending PFT's: Completed No results for input(s): WBC, HB, HCT, PLT, INR, CREAT in the last 72 hours. UA: Normal HCG:N/A ABO/ABO Confirmed: Yes Blood ordered: No SA Swab: Yes - results: Pending Last Dose of Anticoagulation: vit basa LD 11/03 Op Note: N/A Pacemaker Check: N/A Consults: none DM: No Cardiac Surgical prep: N/A SIGNATURE: Kate Smith RN CHECKED BY: DATE of SERVICE: 11/10/2014 TIME of SERVICE: 10:05 AM Right rotator cuff tear 12/31/201308/10 Pain in joint, shoulder region 12/16/2013 08/24/2016 Essential hypertension, benign 12/03/2013 11/19/2014 Overview: Home RX; Nortvasc, ACEi A/P: NTg gtt to keep MAPS 65-75. Wean off. Hydralazine prn. Start BB when off Epi. Pain in joint, lower leg 04/16/2013 Degenerative tear of medial meniscus 04/16/2013 11/13/2020 Allergic rhinitis 06/29/2012 04/21/2022 Anxiety 07/08/2011 11/13/2020 Overview: Home Rx; Prozac. A/p Restarted Prozac. Esophagitis, unspecified 04/23/2009 Acute gastritis without mention of hemorrhage 04/23/20 09 08/24/2016 Diaphragmatic hernia without mention of obstruction or gangrene 04/23/2009 10/19/2022 Last Assessment & Plan: Assessment: no surgical intervention Trochanteric bursitis 03/05/20092014 Nontoxic uninodular goiter 01/16/2009 0 02/24/2021 Overview: 08/13/19 US thyroid right mid-pole thyroid solid nodule 9 x 7 x 4 mm stable since 2016 Last Assessment & Plan: Assessment: under surveillance Nonallopathic lesion of sacr al region, not elsewhere classified 01/02/2009 11/13/2020 Osteoarthrosis, unspecified whether generalized or localized, unspecified site 11/12/2008 11/13/2020 ABSCESS GROIN 07/23/2008 08/23/2016 Obesity, unspecified 07/15/2008 021 Pain in joint, pelvic region and thigh 06/16/2008 08/24/2016 Aneurysm of thoracic aorta 12/05/2007 1 06/21/2021 Overview: 05/26/2020 echocardiogram LV size and systolic function normal, ejection fraction 62%, grade 1 ventricular diastolic dysfunction. RV size and RV SF normal, aorta borderline dilated 3.8 cm: Status post aortic valve repair with no regurgitation, peak gradient 33 mmHg, mean gradient 19 mmHg . 07/23/2019 nuclear stress: No inducible ischemia or evidence of scarred myocardium, LV size normal LV SF normal. Ejection fraction 70% 11/17/2014 Mini-BAV repair, Ascending aortic replacement Last Assessment & Plan: Assessment: s/p ascending aorta repair in 2014. 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 Assessment: c/o dry eye Plan: ordered refresh eye drops Last Assessment & Plan: Assessment: prosthetic left eye, eye gtts as needed Generalized anxiety disorder 08/24/2016 Overview: Anxiety, Generalized Unspecified asthma(493.90) 0 09/03/2007 Asthma 08/24/2016 documented as of this encounter (statuses as of 05/11/2023) [facility]03-27-2023 History of Past illness Narrative* Problem Noted Date Diagnosed Date Resolved Date Pre-op examination 09/05/2022 Last Assessment & Plan: see note for medical conditions which may affect celestina-operative course that were addressed at today's visit. Depressive disorder 04/21/2022 04/21/20 22 Postoperative pneumonia 04/21/2022 11 Viral infection 04/21/2022 04/21/2022 Lumbosacral spondylosis with radiculopathy 03/28/2022 04/27/2022 Dependence on continuous pos itive airway pressure ventilation 03/12/2022 04/21/2022 Dependence on other enabling machines and devices 03/12/2022 04/21/2022 Other specified postprocedural states 03/12/2022 04/21/2022 Rheumatoid arthritis, unspecified 03/12/2022 04/21/2022 Ureteric colic 12/20/2021 04/21/2022 Unspecified abdominal pain 12/08/2021 1 06/21/2021 Dyspnea, unspecified 04/05/2021 022 Multiple subsegmental pulmon gia emboli without acute cor pulmonale 12/21/2020 10/19/2022 Overview: Per Dr. Aparicio: -No further treatment is needed. Continue aspirin daily. -Consider using low molecular heparin or apixaban for DVT prophylaxis after surgery in the future. (I recommend 6 - 8 weeks of apixaban after total knee replacement surgery) -Continue age-appropriate cancer screening and follow-up with PCP. Last Assessment & Plan: Developed after previous shoulder surgery in 2020. Completed 6 months of anticoagulants. Followed with Hematology. 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ty 02/17/2017 12/05/2019 Overview: Added automatically from request for surgery [id number] Acute pain of left knee 12/26/2016 06/0 09/2020 Chronic right shoulder pain 12/26/2016 09/16/2020 Gross hematuria 11/24/2016 11/13/2020 Malignant neoplasm of kidney excluding renal pelvis 10/21/2016 02/27/2017 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, without long-term current use of insulin 09/30/2016 017 Neuropathy 09/30/2016 11/13/2020 Last Assessment & Plan: Assessment: stable on rx Asthma with COPD with exacerbation (HCC) 08/24/2016 02/27/2017 Counseling and coordination of care 12/15/2014 08/24/2016 SUMMARY 11/21/2014 08/24/2016 Overview: Indication for hospital admission/procedure: Aortic aneurysm LVEF: 65% LVH RVF: Normal Important/Relevant PMH/PSH: BAV, Congenital anomaly of aorta, SIVAKUMAR, Asthma, HTN, HPL, DM, anxiety Preoperative Hospital Course Procedure/Surgeries: 11/17/2014 Mini-BAV repair, Ascending aortic replacement Airway Difficulty: No OR Course: Coagulopathy/bleeding requiring correction with 20u cryo, 8u FFP, 4u plts, 3uprbcs and 2 pump runs for repair of aortic cannulation site Pacing wires: out Postoperative Course/General Impression: S/p AVr/Asc aorta replacement. Plan to wean o2, pep, oob, increase diuresis, cont BB, pain and glucose control. Issues to communicate at signout: CT removed CPAP at night echo done CTA done PT rec acute rehab Needs much encouragement wires out 11/23 d/c to acute rehab today Discharge planning 11/21/2014 6 Overview: Pt from [place], [place]. PT rec acute rehab; CM working on placement. Leaving for [facility] in-pt rehab today Hypertension 11/20/2014 02/27/2017 Overview: History: pre op on monopril, norv, Assessment: normotensive currently Plan: Cont BB , cont lasix Atelectasis 11/18/2014 11/19/2014 Overview: Bilateral on CXR. A/P: PEP, EZPAP OOBTC. Volume overload 11/18/2014 08/24/2016 Overview: History: post op Assessment: wt up 5 kg from pre op Plan: cont diuresis On mechanically assisted ventilation 11/17/2014 11/19/2014 Overview: Grade 1 airway. WTE when awake and stable. Extubated on DOS. CPAP at night PEP. Cardiac insufficiency follow ing cardiac surgery 11/17/2014 11/20/2014 Overview: Low CI. CVP low. A/p Epi gtt off. Start BB. Pre-op testing 11/14/2014 08/23/2016 Overview: Images from the original note were not included. [facility] Surgeon: Modetso Cifuentes M.D. Informed Consent Completed: Yes STS Score: unsupported CAD: No Is intended procedure a CABG: No - is a beta hue ordered? No - reason: not indicated H & P completed: Yes 10/28/14 PA/LAT: Completed CT: Completed MRI: N/A LE US: N/A Cath: Yes - reviewed: Yes Echo:Completed EKG: Completed EF %: 65 PI's: N/A Carotid: N/A Mapping: N/A Dental: Completed PFT's: N/A No results for input(s): WBC, HB, HCT, PLT, INR, CREAT in the last 72 hours. UA: Normal HCG:N/A ABO/ABO Confirmed: Yes Blood ordered: No SA Swab: Yes - results: Negative Last Dose of Anticoagulation: OTC 11/12/14 Op Note: N/A Pacemaker Check: N/A Consults: none DM: Yes, A1c: 6.6% Cardiac Surgical prep: N/A SIGNATURE: JERSON Tian CHECKED BY: [email or web address] DATE of SERVICE: 11/14/2014 TIME of SERVICE: 10:59 AM discharge planning 11/10/2014 5 Overview: 64yo male without any concerns presently Preop testing 11/10/2014 11/12/2014 Overview: Images from the original note were not included. [facility] Surgeon: Modesto Cifuentes M.D. Informed Consent Completed: pending STS Score: unsupported CAD: Yes - CAD on Problem List: Yes Is intended procedure a CABG: No - is a beta hue ordered? No - reason: not indicated H & P completed: Yes PA/LAT: Completed CT: Completed MRI: N/A LE US: N/A Cath: Yes - reviewed: Yes Echo:Completed EKG: Completed EF %: 65 PI's: Completed Carotid: N/A Mapping: N/A Dental: Pending PFT's: Completed No results for input(s): WBC, HB, HCT, PLT, INR, CREAT in the last 72 hours. UA: Normal HCG:N/A ABO/ABO Confirmed: Yes Blood ordered: No SA Swab: Yes - results: Pending Last Dose of Anticoagulation: vit basa LD 11/03 Op Note: N/A Pacemaker Check: N/A Consults: none DM: No Cardiac Surgical prep: N/A SIGNATURE: Kate Smith RN CHECKED BY: DATE of SERVICE: 11/10/2014 TIME of SERVICE: 10:05 AM Right rotator cuff tear 12/31/201308/10 Pain in joint, shoulder region 12/16/2013 08/24/2016 Essential hypertension, benign 12/03/2013 11/19/2014 Overview: Home RX; Nortvasc, ACEi A/P: NTg gtt to keep MAPS 65-75. Wean off. Hydralazine prn. Start BB when off Epi. Pain in joint, lower leg 04/16/2013 Degenerative tear of medial meniscus 04/16/2013 11/13/2020 Allergic rhinitis 06/29/2012 04/21/2022 Anxiety 07/08/2011 11/13/2020 Overview: Home Rx; Prozac. A/p Restarted Prozac. Esophagitis, unspecified 04/23/2009 Acute gastritis without mention of hemorrhage 04/23/20 09 08/24/2016 Diaphragmatic hernia without mention of obstruction or gangrene 04/23/2009 10/19/2022 Last Assessment & Plan: Assessment: no surgical intervention Trochanteric bursitis 03/05/20092014 Nontoxic uninodular goiter 01/16/2009 0 02/24/2021 Overview: 08/13/19 US thyroid right mid-pole thyroid solid nodule 9 x 7 x 4 mm stable since 2017 Last Assessment & Plan: Assessment: under surveillance Nonallopathic lesion of sacr al region, not elsewhere classified 01/02/2009 11/13/2020 Osteoarthrosis, unspecified whether generalized or localized, unspecified site 11/12/2008 11/13/2020 ABSCESS GROIN 07/23/2008 08/23/2016 Obesity, unspecified 07/15/2008 021 Pain in joint, pelvic region and thigh 06/16/2008 08/24/2016 Aneurysm of thoracic aorta 12/05/2007 1 06/21/2021 Overview: 05/26/2020 echocardiogram LV size and systolic function normal, ejection fraction 62%, grade 1 ventricular diastolic dysfunction. RV size and RV SF normal, aorta borderline dilated 3.8 cm: Status post aortic valve repair with no regurgitation, peak gradient 33 mmHg, mean gradient 19 mmHg . 07/23/2019 nuclear stress: No inducible ischemia or evidence of scarred myocardium, LV size normal LV SF normal. Ejection fraction 70% 11/17/2014 Mini-BAV repair, Ascending aortic replacement Last Assessment & Plan: Assessment: s/p ascending aorta repair in 2014. 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 Assessment: c/o dry eye Plan: ordered refresh eye drops Last Assessment & Plan: Assessment: prosthetic left eye, eye gtts as needed Generalized anxiety disorder 08/24/2016 Overview: Anxiety, Generalized Unspecified asthma(493.90) 0 09/03/2007 Asthma 08/24/2016 documented as of this encounter (statuses as of 05/22/2023) [facility]03-27-2023 History of Past illness Narrative* Problem Noted Date Diagnosed Date Resolved Date Pre-op examination 09/05/2022 Last Assessment & Plan: see note for medical conditions which may affect celestina-operative course that were addressed at today's visit. Depressive disorder 04/21/2022 04/21/20 Postoperative pneumonia 04/21/202204/12 Viral infection 04/21/2022 04/21/2022 Lumbosacral spondylosis with radiculopathy 03/28/2022 04/27/2022 Dependence on continuous pos itive airway pressure ventilation 03/12/2022 04/21/2022 Dependence on other enabling machines and devices 03/12/2022 04/21/2022 Other specified postprocedural states 03/12/2022 04/21/2022 Rheumatoid arthritis, unspecified 03/12/2022 04/21/2022 Ureteric colic 12/20/2021 04/21/2022 Unspecified abdominal pain 12/08/2021 1 06/21/2021 Dyspnea, unspecified 04/05/2021 022 Multiple subsegmental pulmon gia emboli without acute cor pulmonale 12/21/2020 10/19/2022 Overview: Per Dr. Aparicio: -No further treatment is needed. Continue aspirin daily. -Consider using low molecular heparin or apixaban for DVT prophylaxis after surgery in the future. (I recommend 6 - 8 weeks of apixaban after total knee replacement surgery) -Continue age-appropriate cancer screening and follow-up with PCP. Last Assessment & Plan: Developed after previous shoulder surgery in 2020. Completed 6 months of anticoagulants. Followed with Hematology. 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ty 02/17/2017 12/05/2019 Overview: Added automatically from request for surgery [id number] Acute pain of left knee 12/26/201609/2020 Chronic right shoulder pain 12/26/2016 09/16/2020 Gross hematuria 11/24/2016 11/13/2020 Malignant neoplasm of kidney excluding renal pelvis 10/21/2016 02/27/2017 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, without long-term current use of insulin 09/30/2016 017 Neuropathy 09/30/2016 11/13/2020 Last Assessment & Plan: Assessment: stable on rx Asthma with COPD with exacerbation (HCC) 08/24/2016 02/27/2017 Counseling and coordination of care 12/15/2014 08/24/2016 SUMMARY 11/21/2014 08/24/2016 Overview: Indication for hospital admission/procedure: Aortic aneurysm LVEF: 65% LVH RVF: Normal Important/Relevant PMH/PSH: BAV, Congenital anomaly of aorta, SIVAKUMAR, Asthma, HTN, HPL, DM, anxiety Preoperative Hospital Course Procedure/Surgeries: 11/17/2014 Mini-BAV repair, Ascending aortic replacement Airway Difficulty: No OR Course: Coagulopathy/bleeding requiring correction with 20u cryo, 8u FFP, 4u plts, 3uprbcs and 2 pump runs for repair of aortic cannulation site Pacing wires: out Postoperative Course/General Impression: S/p AVr/Asc aorta replacement. Plan to wean o2, pep, oob, increase diuresis, cont BB, pain and glucose control. Issues to communicate at signout: CT removed CPAP at night echo done CTA done PT rec acute rehab Needs much encouragement wires out 11/23 d/c to acute rehab today Discharge planning 11/21/201405/03/ 6 Overview: Pt from [place], [place]. PT rec acute rehab; CM working on placement. Leaving for [facility] in-pt rehab today Hypertension 11/20/2014 02/27/2017 Overview: History: pre op on monopril, norv, Assessment: normotensive currently Plan: Cont BB , cont lasix Atelectasis 11/18/2014 11/19/2014 Overview: Bilateral on CXR. A/P: PEP, EZPAP OOBTC. Volume overload 11/18/2014 08/24/2016 Overview: History: post op Assessment: wt up 5 kg from pre op Plan: cont diuresis On mechanically assisted ventilation 11/17/2014 11/19/2014 Overview: Grade 1 airway. WTE when awake and stable. Extubated on DOS. CPAP at night PEP. Cardiac insufficiency follow ing cardiac surgery 11/17/2014 11/20/2014 Overview: Low CI. CVP low. A/p Epi gtt off. Start BB. Pre-op testing 11/14/2014 08/23/2016 Overview: Images from the original note were not included. [facility] Surgeon: Modesto Cifuentes M.D. Informed Consent Completed: Yes STS Score: unsupported CAD: No Is intended procedure a CABG: No - is a beta hue ordered? No - reason: not indicated H & P completed: Yes 10/28/14 PA/LAT: Completed CT: Completed MRI: N/A LE US: N/A Cath: Yes - reviewed: Yes Echo:Completed EKG: Completed EF %: 65 PI's: N/A Carotid: N/A Mapping: N/A Dental: Completed PFT's: N/A No results for input(s): WBC, HB, HCT, PLT, INR, CREAT in the last 72 hours. UA: Normal HCG:N/A ABO/ABO Confirmed: Yes Blood ordered: No SA Swab: Yes - results: Negative Last Dose of Anticoagulation: OTC 11/12/14 Op Note: N/A Pacemaker Check: N/A Consults: none DM: Yes, A1c: 6.6% Cardiac Surgical prep: N/A SIGNATURE: JERSON Tian CHECKED BY: [email or web address] DATE of SERVICE: 11/14/2014 TIME of SERVICE: 10:59 AM discharge planning 11/10/2014 5 Overview: 64yo male without any concerns presently Preop testing 11/10/2014 11/12/2014 Overview: Images from the original note were not included. [facility] Surgeon: Modesto Cifuentes M.D. Informed Consent Completed: pending STS Score: unsupported CAD: Yes - CAD on Problem List: Yes Is intended procedure a CABG: No - is a beta hue ordered? No - reason: not indicated H & P completed: Yes PA/LAT: Completed CT: Completed MRI: N/A LE US: N/A Cath: Yes - reviewed: Yes Echo:Completed EKG: Completed EF %: 65 PI's: Completed Carotid: N/A Mapping: N/A Dental: Pending PFT's: Completed No results for input(s): WBC, HB, HCT, PLT, INR, CREAT in the last 72 hours. UA: Normal HCG:N/A ABO/ABO Confirmed: Yes Blood ordered: No SA Swab: Yes - results: Pending Last Dose of Anticoagulation: vit basa LD 11/03 Op Note: N/A Pacemaker Check: N/A Consults: none DM: No Cardiac Surgical prep: N/A SIGNATURE: Kate Smith RN CHECKED BY: DATE of SERVICE: 11/10/2014 TIME of SERVICE: 10:05 AM Right rotator cuff tear 12/31/201308/10 Pain in joint, shoulder region 12/16/2013 08/24/2016 Essential hypertension, benign 12/03/2013 11/19/2014 Overview: Home RX; Nortvasc, ACEi A/P: NTg gtt to keep MAPS 65-75. Wean off. Hydralazine prn. Start BB when off Epi. Pain in joint, lower leg 04/16/2013 Degenerative tear of medial meniscus 04/16/2013 11/13/2020 Allergic rhinitis 06/29/2012 04/21/2022 Anxiety 07/08/2011 11/13/2020 Overview: Home Rx; Prozac. A/p Restarted Prozac. Esophagitis, unspecified 04/23/2009 Acute gastritis without mention of hemorrhage 04/23/2008/24/2016 Diaphragmatic hernia without mention of obstruction or gangrene 04/23/2009 10/19/2022 Last Assessment & Plan: Assessment: no surgical intervention Trochanteric bursitis 03/05/20092014 Nontoxic uninodular goiter 01/16/2009 0 02/24/2021 Overview: 08/13/19 US thyroid right mid-pole thyroid solid nodule 9 x 7 x 4 mm stable since 2016 Last Assessment & Plan: Assessment: under surveillance Nonallopathic lesion of sacr al region, not elsewhere classified 01/02/2009 11/13/2020 Osteoarthrosis, unspecified whether generalized or localized, unspecified site 11/12/2008 11/13/2020 ABSCESS GROIN 07/23/2008 08/23/2016 Obesity, unspecified 07/15/2008 021 Pain in joint, pelvic region and thigh 06/16/2008 08/24/2016 Aneurysm of thoracic aorta 12/05/2007 1 06/21/2021 Overview: 05/26/2020 echocardiogram LV size and systolic function normal, ejection fraction 62%, grade 1 ventricular diastolic dysfunction. RV size and RV SF normal, aorta borderline dilated 3.8 cm: Status post aortic valve repair with no regurgitation, peak gradient 33 mmHg, mean gradient 19 mmHg . 07/23/2019 nuclear stress: No inducible ischemia or evidence of scarred myocardium, LV size normal LV SF normal. Ejection fraction 70% 11/17/2014 Mini-BAV repair, Ascending aortic replacement Last Assessment & Plan: Assessment: s/p ascending aorta repair in 2014. 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 Assessment: c/o dry eye Plan: ordered refresh eye drops Last Assessment & Plan: Assessment: prosthetic left eye, eye gtts as needed Generalized anxiety disorder 08/24/2016 Overview: Anxiety, Generalized Unspecified asthma(493.90) 0 09/03/2007 Asthma 08/24/2016 documented as of this encounter (statuses as of 07/17/2023) [facility]03-27-2023 History of Past illness Narrative* Problem Noted Date Diagnosed Date Resolved Date Pre-op examination 09/05/2022 Last Assessment & Plan: see note for medical conditions which may affect celestina-operative course that were addressed at today's visit. Depressive disorder 04/21/2022 04/21/20 22 Postoperative pneumonia 04/21/202204/12 Viral infection 04/21/2022 04/21/2022 Lumbosacral spondylosis with radiculopathy 03/28/2022 04/27/2022 Dependence on continuous pos itive airway pressure ventilation 03/12/2022 04/21/2022 Dependence on other enabling machines and devices 03/12/2022 04/21/2022 Other specified postprocedural states 03/12/2022 04/21/2022 Rheumatoid arthritis, unspecified 03/12/2022 04/21/2022 Ureteric colic 12/20/2021 04/21/2022 Unspecified abdominal pain 12/08/2021 1 06/21/2021 Dyspnea, unspecified 04/05/2021 022 Multiple subsegmental pulmon gia emboli without acute cor pulmonale 12/21/2020 10/19/2022 Overview: Per Dr. Aparicio: -No further treatment is needed. Continue aspirin daily. -Consider using low molecular heparin or apixaban for DVT prophylaxis after surgery in the future. (I recommend 6 - 8 weeks of apixaban after total knee replacement surgery) -Continue age-appropriate cancer screening and follow-up with PCP. Last Assessment & Plan: Developed after previous shoulder surgery in 2020. Completed 6 months of anticoagulants. Followed with Hematology. 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ty 02/17/2017 12/05/2019 Overview: Added automatically from request for surgery [id number] Acute pain of left knee 12/26/2016 06/0 09/2020 Chronic right shoulder pain 12/26/2016 09/16/2020 Gross hematuria 11/24/2016 11/13/2020 Malignant neoplasm of kidney excluding renal pelvis 10/21/2016 02/27/2017 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, without long-term current use of insulin 09/30/2016 017 Neuropathy 09/30/2016 11/13/2020 Last Assessment & Plan: Assessment: stable on rx Asthma with COPD with exacerbation (HCC) 08/24/2016 02/27/2017 Counseling and coordination of care 12/15/2014 08/24/2016 SUMMARY 11/21/2014 08/24/2016 Overview: Indication for hospital admission/procedure: Aortic aneurysm LVEF: 65% LVH RVF: Normal Important/Relevant PMH/PSH: BAV, Congenital anomaly of aorta, SIVAKUMAR, Asthma, HTN, HPL, DM, anxiety Preoperative Hospital Course Procedure/Surgeries: 11/17/2014 Mini-BAV repair, Ascending aortic replacement Airway Difficulty: No OR Course: Coagulopathy/bleeding requiring correction with 20u cryo, 8u FFP, 4u plts, 3uprbcs and 2 pump runs for repair of aortic cannulation site Pacing wires: out Postoperative Course/General Impression: S/p AVr/Asc aorta replacement. Plan to wean o2, pep, oob, increase diuresis, cont BB, pain and glucose control. Issues to communicate at signout: CT removed CPAP at night echo done CTA done PT rec acute rehab Needs much encouragement wires out 11/23 d/c to acute rehab today Discharge planning 11/21/2014 6 Overview: Pt from [place], [place]. PT rec acute rehab; CM working on placement. Leaving for [facility] in-pt rehab today Hypertension 11/20/2014 02/27/2017 Overview: History: pre op on monopril, norv, Assessment: normotensive currently Plan: Cont BB , cont lasix Atelectasis 11/18/2014 11/19/2014 Overview: Bilateral on CXR. A/P: PEP, EZPAP OOBTC. Volume overload 11/18/2014 08/24/2016 Overview: History: post op Assessment: wt up 5 kg from pre op Plan: cont diuresis On mechanically assisted ventilation 11/17/2014 11/19/2014 Overview: Grade 1 airway. WTE when awake and stable. Extubated on DOS. CPAP at night PEP. Cardiac insufficiency follow ing cardiac surgery 11/17/2014 11/20/2014 Overview: Low CI. CVP low. A/p Epi gtt off. Start BB. Pre-op testing 11/14/2014 08/23/2016 Overview: Images from the original note were not included. [facility] Surgeon: Modesto Cifuentes M.D. Informed Consent Completed: Yes STS Score: unsupported CAD: No Is intended procedure a CABG: No - is a beta hue ordered? No - reason: not indicated H & P completed: Yes 10/28/14 PA/LAT: Completed CT: Completed MRI: N/A LE US: N/A Cath: Yes - reviewed: Yes Echo:Completed EKG: Completed EF %: 65 PI's: N/A Carotid: N/A Mapping: N/A Dental: Completed PFT's: N/A No results for input(s): WBC, HB, HCT, PLT, INR, CREAT in the last 72 hours. UA: Normal HCG:N/A ABO/ABO Confirmed: Yes Blood ordered: No SA Swab: Yes - results: Negative Last Dose of Anticoagulation: OTC 11/12/14 Op Note: N/A Pacemaker Check: N/A Consults: none DM: Yes, A1c: 6.6% Cardiac Surgical prep: N/A SIGNATURE: JERSON Tian CHECKED BY: [email or web address] DATE of SERVICE: 11/14/2014 TIME of SERVICE: 10:59 AM discharge planning 11/10/2014 5 Overview: 64yo male without any concerns presently Preop testing 11/10/2014 11/12/2014 Overview: Images from the original note were not included. [facility] Surgeon: Modesto Cifuentes M.D. Informed Consent Completed: pending STS Score: unsupported CAD: Yes - CAD on Problem List: Yes Is intended procedure a CABG: No - is a beta hue ordered? No - reason: not indicated H & P completed: Yes PA/LAT: Completed CT: Completed MRI: N/A LE US: N/A Cath: Yes - reviewed: Yes Echo:Completed EKG: Completed EF %: 65 PI's: Completed Carotid: N/A Mapping: N/A Dental: Pending PFT's: Completed No results for input(s): WBC, HB, HCT, PLT, INR, CREAT in the last 72 hours. UA: Normal HCG:N/A ABO/ABO Confirmed: Yes Blood ordered: No SA Swab: Yes - results: Pending Last Dose of Anticoagulation: vit basa LD 11/03 Op Note: N/A Pacemaker Check: N/A Consults: none DM: No Cardiac Surgical prep: N/A SIGNATURE: Kate Smith RN CHECKED BY: DATE of SERVICE: 11/10/2014 TIME of SERVICE: 10:05 AM Right rotator cuff tear 12/31/201308/10 Pain in joint, shoulder region 12/16/2013 08/24/2016 Essential hypertension, benign 12/03/2013 11/19/2014 Overview: Home RX; Nortvasc, ACEi A/P: NTg gtt to keep MAPS 65-75. Wean off. Hydralazine prn. Start BB when off Epi. Pain in joint, lower leg 04/16/2013 Degenerative tear of medial meniscus 04/16/2013 11/13/2020 Allergic rhinitis 06/29/2012 04/21/2022 Anxiety 07/08/2011 11/13/2020 Overview: Home Rx; Prozac. A/p Restarted Prozac. Esophagitis, unspecified 04/23/2009 Acute gastritis without mention of hemorrhage 04/23/20 09 08/24/2016 Diaphragmatic hernia without mention of obstruction or gangrene 04/23/2009 10/19/2022 Last Assessment & Plan: Assessment: no surgical intervention Trochanteric bursitis 03/05/20092014 Nontoxic uninodular goiter 01/16/2009 0 02/24/2021 Overview: 08/13/19 thyroid right mid-pole thyroid solid nodule 9 x 7 x 4 mm stable since 2016 Last Assessment & Plan: Assessment: under surveillance Nonallopathic lesion of sacr al region, not elsewhere classified 01/02/2009 11/13/2020 Osteoarthrosis, unspecified whether generalized or localized, unspecified site 11/12/2008 11/13/2020 ABSCESS GROIN 07/23/2008 08/23/2016 Obesity, unspecified 07/15/2008 021 Pain in joint, pelvic region and thigh 06/16/2008 08/24/2016 Aneurysm of thoracic aorta 12/05/2007 1 06/21/2021 Overview: 05/26/2020 echocardiogram LV size and systolic function normal, ejection fraction 62%, grade 1 ventricular diastolic dysfunction. RV size and RV SF normal, aorta borderline dilated 3.8 cm: Status post aortic valve repair with no regurgitation, peak gradient 33 mmHg, mean gradient 19 mmHg . 07/23/2019 nuclear stress: No inducible ischemia or evidence of scarred myocardium, LV size normal LV SF normal. Ejection fraction 70% 11/17/2014 Mini-BAV repair, Ascending aortic replacement Last Assessment & Plan: Assessment: s/p ascending aorta repair in 2014. 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 Assessment: c/o dry eye Plan: ordered refresh eye drops Last Assessment & Plan: Assessment: prosthetic left eye, eye gtts as needed Generalized anxiety disorder 08/24/2016 Overview: Anxiety, Generalized Unspecified asthma(493.90) 0 09/03/2007 Asthma 08/24/2016 documented as of this encounter (statuses as of 07/31/2023) [facility]03-27-2023 History of Past illness Narrative* Problem Noted Date Diagnosed Date Resolved Date Pre-op examination 09/05/2022 Last Assessment & Plan: see note for medical conditions which may affect celestina-operative course that were addressed at today's visit. Depressive disorder 04/21/2022 04/21/20 22 Postoperative pneumonia 04/21/202204/12 Viral infection 04/21/2022 04/21/2022 Lumbosacral spondylosis with radiculopathy 03/28/2022 04/27/2022 Dependence on continuous pos itive airway pressure ventilation 03/12/2022 04/21/2022 Dependence on other enabling machines and devices 03/12/2022 04/21/2022 Other specified postprocedural states 03/12/2022 04/21/2022 Rheumatoid arthritis, unspecified 03/12/2022 04/21/2022 Ureteric colic 12/20/2021 04/21/2022 Unspecified abdominal pain 12/08/2021 1 06/21/2021 Dyspnea, unspecified 04/05/2021 022 Multiple subsegmental pulmon gia emboli without acute cor pulmonale 12/21/2020 10/19/2022 Overview: Per Dr. Aparicio: -No further treatment is needed. Continue aspirin daily. -Consider using low molecular heparin or apixaban for DVT prophylaxis after surgery in the future. (I recommend 6 - 8 weeks of apixaban after total knee replacement surgery) -Continue age-appropriate cancer screening and follow-up with PCP. Last Assessment & Plan: Developed after previous shoulder surgery in 2020. Completed 6 months of anticoagulants. Followed with Hematology. 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ty 02/17/2017 12/05/2019 Overview: Added automatically from request for surgery [id number] Acute pain of left knee 12/26/2016 06/0 09/2020 Chronic right shoulder pain 12/26/2016 09/16/2020 Gross hematuria 11/24/2016 11/13/2020 Malignant neoplasm of kidney excluding renal pelvis 10/21/2016 02/27/2017 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, without long-term current use of insulin 09/30/2016 017 Neuropathy 09/30/2016 11/13/2020 Last Assessment & Plan: Assessment: stable on rx Asthma with COPD with exacerbation (HCC) 08/24/2016 02/27/2017 Counseling and coordination of care 12/15/2014 08/24/2016 SUMMARY 11/21/2014 08/24/2016 Overview: Indication for hospital admission/procedure: Aortic aneurysm LVEF: 65% LVH RVF: Normal Important/Relevant PMH/PSH: BAV, Congenital anomaly of aorta, SIVAKUMAR, Asthma, HTN, HPL, DM, anxiety Preoperative Hospital Course Procedure/Surgeries: 11/17/2014 Mini-BAV repair, Ascending aortic replacement Airway Difficulty: No OR Course: Coagulopathy/bleeding requiring correction with 20u cryo, 8u FFP, 4u plts, 3uprbcs and 2 pump runs for repair of aortic cannulation site Pacing wires: out Postoperative Course/General Impression: S/p AVr/Asc aorta replacement. Plan to wean o2, pep, oob, increase diuresis, cont BB, pain and glucose control. Issues to communicate at signout: CT removed CPAP at night echo done CTA done PT rec acute rehab Needs much encouragement wires out 11/23 d/c to acute rehab today Discharge planning 11/21/201405/03/ 6 Overview: Pt from [place], [place]. PT rec acute rehab; CM working on placement. Leaving for [facility] in-pt rehab today Hypertension 11/20/2014 02/27/2017 Overview: History: pre op on monopril, norv, Assessment: normotensive currently Plan: Cont BB , cont lasix Atelectasis 11/18/2014 11/19/2014 Overview: Bilateral on CXR. A/P: PEP, EZPAP OOBTC. Volume overload 11/18/2014 08/24/2016 Overview: History: post op Assessment: wt up 5 kg from pre op Plan: cont diuresis On mechanically assisted ventilation 11/17/2014 11/19/2014 Overview: Grade 1 airway. WTE when awake and stable. Extubated on DOS. CPAP at night PEP. Cardiac insufficiency follow ing cardiac surgery 11/17/2014 11/20/2014 Overview: Low CI. CVP low. A/p Epi gtt off. Start BB. Pre-op testing 11/14/2014 08/23/2016 Overview: Images from the original note were not included. [facility] Surgeon: Modesto Cifuentes M.D. Informed Consent Completed: Yes STS Score: unsupported CAD: No Is intended procedure a CABG: No - is a beta hue ordered? No - reason: not indicated H & P completed: Yes 10/28/14 PA/LAT: Completed CT: Completed MRI: N/A LE US: N/A Cath: Yes - reviewed: Yes Echo:Completed EKG: Completed EF %: 65 PI's: N/A Carotid: N/A Mapping: N/A Dental: Completed PFT's: N/A No results for input(s): WBC, HB, HCT, PLT, INR, CREAT in the last 72 hours. UA: Normal HCG:N/A ABO/ABO Confirmed: Yes Blood ordered: No SA Swab: Yes - results: Negative Last Dose of Anticoagulation: OTC 11/12/14 Op Note: N/A Pacemaker Check: N/A Consults: none DM: Yes, A1c: 6.6% Cardiac Surgical prep: N/A SIGNATURE: JERSON Tian CHECKED BY: [email or web address] DATE of SERVICE: 11/14/2014 TIME of SERVICE: 10:59 AM discharge planning 11/10/2014 5 Overview: 64yo male without any concerns presently Preop testing 11/10/2014 11/12/2014 Overview: Images from the original note were not included. [facility] Surgeon: Modesto Cifuentes M.D. Informed Consent Completed: pending STS Score: unsupported CAD: Yes - CAD on Problem List: Yes Is intended procedure a CABG: No - is a beta hue ordered? No - reason: not indicated H & P completed: Yes PA/LAT: Completed CT: Completed MRI: N/A LE US: N/A Cath: Yes - reviewed: Yes Echo:Completed EKG: Completed EF %: 65 PI's: Completed Carotid: N/A Mapping: N/A Dental: Pending PFT's: Completed No results for input(s): WBC, HB, HCT, PLT, INR, CREAT in the last 72 hours. UA: Normal HCG:N/A ABO/ABO Confirmed: Yes Blood ordered: No SA Swab: Yes - results: Pending Last Dose of Anticoagulation: vit basa LD 11/03 Op Note: N/A Pacemaker Check: N/A Consults: none DM: No Cardiac Surgical prep: N/A SIGNATURE: Kate Smith RN CHECKED BY: DATE of SERVICE: 11/10/2014 TIME of SERVICE: 10:05 AM Right rotator cuff tear 12/31/201308/10 Pain in joint, shoulder region 12/16/2013 08/24/2016 Essential hypertension, benign 12/03/2013 11/19/2014 Overview: Home RX; Nortvasc, ACEi A/P: NTg gtt to keep MAPS 65-75. Wean off. Hydralazine prn. Start BB when off Epi. Pain in joint, lower leg 04/16/2013 Degenerative tear of medial meniscus 04/16/2013 11/13/2020 Allergic rhinitis 06/29/2012 04/21/2022 Anxiety 07/08/2011 11/13/2020 Overview: Home Rx; Prozac. A/p Restarted Prozac. Esophagitis, unspecified 04/23/2009 Acute gastritis without mention of hemorrhage 04/23/2008/24/2016 Diaphragmatic hernia without mention of obstruction or gangrene 04/23/2009 10/19/2022 Last Assessment & Plan: Assessment: no surgical intervention Trochanteric bursitis 03/05/20092014 Nontoxic uninodular goiter 01/16/2009 0 02/24/2021 Overview: 08/13/19 US thyroid right mid-pole thyroid solid nodule 9 x 7 x 4 mm stable since 2017 Last Assessment & Plan: Assessment: under surveillance Nonallopathic lesion of sacr al region, not elsewhere classified 01/02/2009 11/13/2020 Osteoarthrosis, unspecified whether generalized or localized, unspecified site 11/12/2008 11/13/2020 ABSCESS GROIN 07/23/2008 08/23/2016 Obesity, unspecified 07/15/2008 021 Pain in joint, pelvic region and thigh 06/16/2008 08/24/2016 Aneurysm of thoracic aorta 12/05/2007 1 06/21/2021 Overview: 05/26/2020 echocardiogram LV size and systolic function normal, ejection fraction 62%, grade 1 ventricular diastolic dysfunction. RV size and RV SF normal, aorta borderline dilated 3.8 cm: Status post aortic valve repair with no regurgitation, peak gradient 33 mmHg, mean gradient 19 mmHg . 07/23/2019 nuclear stress: No inducible ischemia or evidence of scarred myocardium, LV size normal LV SF normal. Ejection fraction 70% 11/17/2014 Mini-BAV repair, Ascending aortic replacement Last Assessment & Plan: Assessment: s/p ascending aorta repair in 2014. 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 Assessment: c/o dry eye Plan: ordered refresh eye drops Last Assessment & Plan: Assessment: prosthetic left eye, eye gtts as needed Generalized anxiety disorder 08/24/2016 Overview: Anxiety, Generalized Unspecified asthma(493.90) 0 09/03/2007 Asthma 08/24/2016 documented as of this encounter (statuses as of 07/31/2023) [facility]03-27-2023 Miscellaneous Notes* Telephone Encounter - Renae Young LPN - 09/05/2022 12:54 PM EDT Patient phones requesting refills as follows: Requested Prescriptions Pending Prescriptions Disp Refills magnesium oxide (MAG-OX) 400 mg (241.3 mg magnesium) tablet 90 tablet 3 Sig: Take 1 tablet by mouth once daily. SILVINO-08/30/22 Labs-08/18/22 NOV-10/19/22 med filled 09/17/21 Please review and advise. Renae Young LPN documented in this encounterOhio[facility]03-27-2023 Miscellaneous Notes* Telephone Encounter - Margo Cool LPN - 09/05/2022 9:00 AM EDT Patient's request for medication is as follows: Requested Prescriptions Pending Prescriptions Disp Refills carvedilol (COREG) 6.25 mg tablet 180 tablet 3 Sig: Take 1 tablet by mouth twice daily. Last seen 07/11/2022. Follow up scheduled for 07/17/2023. Prescription(s) as above. Please process accordingly. Margo Cool LPN documented in this encounterOhiohealth [facility]in [facility]03-21-2023 NoteHNO ID: [id number] Author: Mayra Calderón APRN.[employer]SM[employer] Service: ? Author Type: Nurse Practitioner Type: Progress Notes Filed: 08/30/2022 2:18 PM Note Text: HISTORY AND PHYSICAL EXAMINATION SUBJECTIVE 72 year old male is here for consult to determine preoperative surgical clearance requested by Dr. Amairani for anticipated surgery: right reverse total shoulder arthroplasty with complete removal and reimplantation of components, scheduled for 09/20/22 Patient's history of surgical problem: no. Hx of previous anesthesia problems: No. Refers pain medications often do not work well for him. Family hx of anesthesia problems: No. Current signs of infection: No. Chest pain/ hx Cardiac complications: No. Last stress test 02/21/22 - WNL. Shortness of breath: No. Hx sleep apnea: Yes. Hx of clotting issues: factor VIII Current bleeding or bruising tendencies: No. Hx GERD No. On anticoagulant medication: No -- other than two baby ASA. 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 He underwent 6 months of anticoagulants. He did have follow-up with hematology. 10/18/21 -- hematology note. PLAN: -No further treatment is needed. Continue aspirin daily. -Consider using low molecular heparin or apixaban for DVT prophylaxis after surgery in the future. (I recommend 6 - 8 weeks of apixaban after total knee replacement surgery) -Continue age-appropriate cancer screening and follow-up with PCP. HISTORIES FAMILY HISTORY Problem Relation Age of Onset Asthma Mother Stroke Father blood clot other (Pulmonary embolism) Father Arthritis Sister Lupus DVT Brother Diabetes Brother Hypertension Brother Stroke Maternal Grandmother Heart Maternal Grandmother Heart Maternal Grandfather Heart Paternal Grandmother Stroke Paternal Grandmother Arthritis Daughter Sgrogren's Breast Cancer Maternal Aunt Cancer Maternal Aunt glioblastoma 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 Diaphragmatic hernia without mention of obstruction or gangrene Esophagitis, unspecified Fatty liver Generalized anxiety disorder Anxiety, Generalized Heartburn 02/27/2017 History of aortic valve replacement 06/12/2014 Other and unspecified hyperlipidemia PMH - PAST MEDICAL HISTORY OF nodules in left lung Profound impairment, one eye, impairment level not further specified left Restless legs syndrome (RLS) Type II or unspecified type diabetes mellitus without mention of complication, not stated as uncontrolled 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ty 02/17/2017 Added automatically from request for surgery [id number] Umbilical hernia 2019 Unspecified asthma(493.90) Unspecified essential hypertension Unspecified sleep apnea PAST SURGICAL HISTORY Procedure Laterality Date ARTHRP KNE CONDYLEANDPLATU MEDIALANDLAT COMPARTMENTS Left 12/25/2019 ASCENDING AORTA GRAFT W/BYPASS W/CORON REC 2014 COLONOSCOPY FLX DX W/COLLJ SPEC WHEN PFRMD 02/02/2005 Colonoscopy-repeat in COLONOSCOPY FLX DX W/COLLJ SPEC WHEN PFRMD 04/04/2016 DIAGNOSTIC ARTHROSCOPY SHOULDER +- SYNOVIAL BX Right 01/17/2014 EGD TRANSORAL BIOPSY SINGLE/MULTIPLE 04/23/2009 EYE SURGERY HX Left Eye removed from trauma IANDD ABSC SMPL OR SGL Right 07/23/2008 Groin KNEE ARTHROSCOPY Right 05/23/2014 NEUROPLASTY AND/TRANSPOSITION ULNAR NERVE ELBOW Right 03/01/2017 RECONSTRUCTION ROTATOR CUFF AVULSION CHRONIC Right 01/17/2014 RPR UMBILICAL HRNA 5 YRS/> REDUCIBLE 04/08/2020 VALVULOPLASTY - AORTIC VALVE 2015 WRIST SURGERY HX Left Mass removal Social History Tobacco Use Smoking status: Never Smokeless tobacco: Never Vaping Use Vaping Use: Never used Substance Use Topics Alcohol use: No Drug use: No ACTIVE PROBLEM LIST Hyperlipidemia Essential Hypertension Restless Legs Syndrome (Rls) Chronic Rhinitis Deviated Nasal Septum Diaphragmatic Hernia Without Mention of Obstruction Or Gangrene Diabetes Mellitus Type 2, Controlled, Without Complications (Hcc) Arthritis of Right Knee Vitamin D Deficiency Moderate Persistent Asthma Sivakumar On Cpap Recurrent Major Depression in Partial Remission (Hcc) Obesity, Class I, Bmi 30-34.9 Elevated Factor Viii Level S/P Total Knee Arthroplasty, Left Bilateral Carotid Artery Stenosis Complete Tear of Right Rotator Cuff Cad (Coronary Artery Disease) History of Aortic Valve Replacement Fatty Liver S/P Reverse Total Shoulder Arthroplasty, Right Multiple Subsegmental Pulmonary Emboli Without Acute Cor Pulmonale (Hcc) History of Thyroid Nodule History of Dvt (Deep Vein Thrombosis) First Degree Atrioventricular Block 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 Bales for anticipated surgery: right reverse total shoulder arthroplasty with complete removal and reimplantation of components, scheduled for 09/20/22 Patient's history of surgical problem: no. Hx of previous anesthesia problems: No. Refers pain medications often do not work well for him. Family hx of anesthesia problems: No. Current signs of infection: No. Chest pain/ hx Cardiac complications: No. Last stress test 02/21/22 - WNL. Shortness of breath: No. Hx sleep apnea: Yes. Hx of clotting issues: factor VIII Current bleeding or bruising tendencies: No. Hx GERD No. On anticoagulant medication: No -- other than two baby ASA. 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 He underwent 6 months of anticoagulants. He did have follow-up with hematology. 10/18/21 -- hematology note. PLAN: -No further treatment is needed. Continue aspirin daily. -Consider using low molecular heparin or apixaban for DVT prophylaxis after surgery in the future. (I recommend 6 - 8 weeks of apixaban after total knee replacement surgery) -Continue age-appropriate cancer screening and follow-up with PCP. HISTORIES FAMILY HISTORY Problem Relation Age of Onset Asthma Mother Stroke Father blood clot other (Pulmonary embolism) Father Arthritis Sister Lupus DVT Brother Diabetes Brother Hypertension Brother Stroke Maternal Grandmother Heart Maternal Grandmother Heart Maternal Grandfather Heart Paternal Grandmother Stroke Paternal Grandmother Arthritis Daughter Sgrogren's Breast Cancer Maternal Aunt Cancer Maternal Aunt glioblastoma 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 Diaphragmatic hernia without mention of obstruction or gangrene Esophagitis, unspecified Fatty liver Generalized anxiety disorder Anxiety, Generalized Heartburn 02/27/2017 History of aortic valve replacement 06/12/2014 Other and unspecified hyperlipidemia PMH - PAST MEDICAL HISTORY OF nodules in left lung Profound impairment, one eye, impairment level not further specified left Restless legs syndrome (RLS) Type II or unspecified type diabetes mellitus without mention of complication, not stated as uncontrolled 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ty 02/17/2017 Added automatically from request for surgery [id number] Umbilical hernia 2019 Unspecified asthma(493.90) Unspecified essential hypertension Unspecified sleep apnea PAST SURGICAL HISTORY Procedure Laterality Date ARTHRP KNE CONDYLE&PLATU MEDIAL&LAT COMPARTMENTS Left 12/25/2019 ASCENDING AORTA GRAFT W/BYPASS W/CORON REC 2014 COLONOSCOPY FLX DX W/COLLJ SPEC WHEN PFRMD 02/02/2005 Colonoscopy-repeat in COLONOSCOPY FLX DX W/COLLJ SPEC WHEN PFRMD 04/04/2016 DIAGNOSTIC ARTHROSCOPY SHOULDER +- SYNOVIAL BX Right 01/17/2014 EGD TRANSORAL BIOPSY SINGLE/MULTIPLE 04/23/2009 EYE SURGERY HX Left Eye removed from trauma I&D ABSC SMPL OR SGL Right 07/23/2008 Groin KNEE ARTHROSCOPY Right 05/23/2014 NEUROPLASTY &/TRANSPOSITION ULNAR NERVE ELBOW Right 03/01/2017 RECONSTRUCTION ROTATOR CUFF AVULSION CHRONIC Right 01/17/2014 RPR UMBILICAL HRNA 5 YRS/> REDUCIBLE 04/08/2020 VALVULOPLASTY - AORTIC VALVE 2014 WRIST SURGERY HX Left Mass removal Social History Tobacco Use Smoking status: Never Smokeless tobacco: Never Vaping Use Vaping Use: Never used Substance Use Topics Alcohol use: No Drug use: No ACTIVE PROBLEM LIST Hyperlipidemia Essential Hypertension Restless Legs Syndrome (Rls) Chronic Rhinitis Deviated Nasal Septum Diaphragmatic Hernia Without Mention of Obstruction Or Gangrene Diabetes Mellitus Type 2, Controlled, Without Complications (Hcc) Arthritis of Right Knee Vitamin D Deficiency Moderate Persistent Asthma Sivakumar On Cpap Recurrent Major Depression in Partial Remission (Hcc) Obesity, Class I, Bmi 30-34.9 Elevated Factor Viii Level S/P Total Knee Arthroplasty, Left Bilateral Carotid Artery Stenosis Complete Tear of Right Rotator Cuff Cad (Coronary Artery Disease) History of Aortic Valve Replacement Fatty Liver S/P Reverse Total Shoulder Arthroplasty, Right Multiple Subsegmental Pulmonary Emboli Without Acute Cor Pulmonale (Hcc) History of Thyroid Nodule History of Dvt (Deep Vein Thrombosis) First Degree Atrioventricular Block 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 Inject once per week. Discard Pen After 2 mL 11 buPROPion XL (WELLBUTRIN XL) 150 mg 24 hr tablet Take 1 tablet by mouth once daily. 90 tablet 1 blood sugar diagnostic (New.netUCH VERIO TEST STRIPS) test strip Test blood sugar(s) 2 times daily. Dx: E11.9 200 Strip 3 losartan (COZAAR) 100 mg tablet Take 1 tablet by mouth once daily. 30 tablet 5 amoxicillin (POLYMOX, AMOXIL) 500 mg capsule 4 capsules 1 hours prior to dental procedure. 4 capsule 4 fluticasone (FLONASE) 50 mcg/actuation nasal spray Use 2 Sprays in each nostril once daily. 3 Each 3 atorvastatin (LIPITOR) 40 mg tablet Take 1 tablet by mouth daily at bedtime. For cholesterol. 90 tablet 1 metFORMIN (GLUCOPHAGE) 1,000 mg tablet Take 1 tablet by mouth twice daily with meals. 180 tablet 1 clotrimazole-betamethasone (LOTRISONE) cream Apply to affected area twice daily. (Patient taking differently: Apply to affected area twice daily. Twice daily as needed) 45 g 1 amLODIPine (NORVASC) 10 mg tablet Take 1 tablet by mouth once daily. 90 tablet 3 magnesium oxide (MAG-OX) 400 mg (241.3 mg magnesium) tablet Take 1 tablet by mouth once daily. 90 tablet 3 carvedilol (COREG) 6.25 mg tablet Take 1 tablet by mouth twice daily. 180 tablet 3 Cholecalciferol, Vitamin D3, 25 mcg (1,000 unit) cap Take 1 capsule by mouth once daily. aspirin, enteric coated (ASPIRIN, ENTERIC COATED) 81 mg EC tablet Take 2 tablets by mouth once daily. albuterol (PROVENTIL) 2.5 mg /3 mL (0.083 %) nebulizer solution Use 2.5 mg via nebulizer. albuterol HFA (VENTOLIN HFA) 90 mcg/actuation inhaler Inhale 2 Puffs as instructed every 4 hours asneeded for wheezing/shortness of breath. 18 g 11 ondansetron (ZOFRAN) 4 mg tablet Take 1 tablet by mouth every 8 hours as needed. 10 tablet 0 pramipexole (MIRAPEX) 0.25 mg tablet Take 1 tablet by mouth once daily. 90 tablet 3 fluticasone/vilanterol (BREO ELLIPTA INHALATION) Inhale 1 Puff as instructed once daily. Cholecalciferol, Vitamin D3, 1,000 unit cap Take 1 capsule by mouth once daily. (Patient taking differently: Take 1,000 Units by mouth once daily. Takes 400 MG tablet by mouth daily) 0 lancets (ONE TOUCH DELICA) 33 gauge misc Test blood sugar(s) 2 daily. 200 Each 3 Blood-Glucose Meter (ONETOUCH VERIO SYSTEM) [facility] Dispense One Kit - Verio Meter Kit. Test blood sugar twice daily. Dx: E11.9. Insulin-no. 1 Each 0 therapeutic multivitamin (THERA VITAMIN) tablet Take 1 tablet by mouth daily with breakfast. 0 CPAP As directed 0 0 Current Facility-Administered Medications Medication Dose Route Frequency Provider Last Rate Last Admin perflutren lipid microspheres 1.3 mL in NaCl (PF) 0.9% 10 mL injection (DEFINITY) INTRAVENOUS DIRECTED PRN Margo Selby APRN.CNP sodium chloride 0.9 % (flush) 10 mL (BD POSIFLUSH) 10 mL INTRAVENOUS DIRECTED PRN Margo Selby APRN.DANAE Allergies: Seasonal Allergies Other: See Comments Comment:SOB due to tree pollen, dog dander, weeds, cow dander,molds, pine pollen. Erythromycin Diarrhea Hctz [Amiloride-Hyd* Other: See Comments Comment:Hypercalcemia Oxycodone GI Upset Tramadol GI Upset REVIEW OF SYSTEMS: General: No weight loss, malaise or fevers. Gets some fatigue. Neuro: Denies: No Hx of stroke or seizures Respiratory: No history of current cough or dyspnea, or pneumonia in the past 6 weeks. No history of respiratory/pulmonary symptoms or problems. + asthma -- uses rescue once weekly. Cardiovascular: Hx of CAD. Had aortic valve and ascending aorta bypass graft in 2014. GI: No history of GI symptoms or problems. No history of esophageal varices, recent ascites, or ETOH greater than 2 drinks per day. : No history of UTI in past 6 weeks. No history of renal failure. Not currently on or requiring dialysis. No history of symptoms or problems. Endocrine: DM -- on trulicity and oral medications. Last A1C 5.4. Hematology: Bleeding / clotting disorders (elevated factor VIII related to acute phase reactant after previous DVT/PE 2021), Hx of DVT/PE after last surgery. Oncology: No history of CA metastasis, chemo within 30 days, or radiotherapy within 90 days. Has not lost 10% of body wt in 6 months. No history of oncological symptoms or problems. Psych: Musculoskeletal: some knee and back problems. Skin: Negative for lesions, rash and itching. PHYSICAL EXAM: VITALS: BP 118/80 Pulse 76 Resp 18 Wt 104.8 kg (231 lb) SpO2 94% BMI 29.66 kg/m General Appearance: Well appearing, alert, in no acute distress, well-hydrated, well nourished.. Skin: Skin color, texture, turgor normal, no suspicious rashes or lesions. Head: Normocephalic, no masses, lesions, tenderness or abnormalities. Eyes: Anicteric sclera. Blind left eye. Ears: External ears normal, canals clear, Normal TMs bilaterally. Oropharynx: Lips, mucosa, and tongue normal, teeth and gums normal, oropharynx normal. Neck: Supple, no adenopathy; thyroid symmetric, normal size, no bruits. Lungs: Lungs clear to auscultation. No wheezing, rhonchi, rales.. Heart: RRR without gallop, or rubs. No ectopy. + murmur. Abdomen: Abdomen soft, non-tender. Bowel sounds normal. No masses, organomegaly. Extremities: No deformities, edema, skin discoloration, clubbing or cyanosis. Good capillary refill. Neurologic: Gait normal. Diagnostic tests reviewed for today's visit: Most recent labs Has PAT testing on 09/06/22. Clinical Risk Factors for Possible Cardiac Complications: History of ischemic heart disease Patient is scheduled for a intermediate-risk procedure. FUNCTIONAL STATUS: Climb a flight of stairs or walk up a hill (5.50 METs) Functional Class (NYHA): II WOOD CARDIAC RISK CALCULATOR - 0.2% ASSESSMENT/PLAN: 1. Preop examination - ICD9: V72.84, ICD10: Z01.818 (primary diagnosis) Patient has the following medical conditions: Asthma - Medication(s) reviewed and discussed the importance of compliance. Advised to continue same medication. Condition is stable CAD - follows with cardiology. Last stress test 02/21/22. Diabetes - Well controlled HTN - Well controlled Hyperlipidemia SIVAKUMAR - Patient is using CPAP/BIPAP Pt is acceptable risk to move forward with planned procedure pending normal/stable PAT eval and approval from cardiology, as well. He has a hx of DVT/PE after previous shoulder surgery in 2020. Per hematology, prophylactic anticoagulation should be considered with LMWH or apixaban with any future hernandez rgeries. Thank you for allowing us to participate in Alem's care. Please let us know if we can be of further assistance. 2. Right shoulder pain, unspecified chronicity - ICD9: 719.41, ICD10: M25.511 Per ortho. Discussed treatment plan and patient voices understanding. Patient's questions answered appropriately. Medications and potential side effects were discussed and patient voices understanding. Return to the office as scheduled or as needed for worsening/no improvement. Mayra Calderón APRN.[employer]ED [employer] DRAFTSMAN documented in this encounterOhio[facility]03[facility]23 Miscellaneous Notes* Telephone Encounter - Carlita Weldon RN - 08/29/2022 11:34 AM EDT Form completed and faxed. Carlita Weldon RN * Telephone Encounter - Dena Sibley - 08/24/2022 8:52 AM EDT Fax received requesting surgical optimization for surgery scheduled 09/20. Fax is on provider desk for completion. Dena Sibley documented in this encounterOhiohealth [facility]in [facility]03-13-2023 NoteHNO ID: [id number] Author: Viry Bales MD Service: ? Author Type: Physician Type: Progress Notes Filed: 09/20/2022 10:30 AM Note Text: PAIN EVALUATION 08/16/2022 1243 08/18/2022 1345 Pain Level: 7 3 Pain Location: Shoulder-Right -- Description: Raw;Sore Sore Duration Amount of Time: -- 1.5 Duration Units: Weeks Years Frequency: Continuous Continuous Intervention/Comfort measure: Positioning Reposition;Relaxation Comments: Sleep on left side. -- Encounter Diagnosis ICD-10-CM 1. S/P reverse total shoulder arthroplasty, right Z96.611 XR SHOULDER 3V AP/Y VIEW/AXILLARY RIGHT (AK) CBC + DIFF SED RATE WESTERGREN C-REACTIVE PROTEIN (CRP) 2. Infection of prosthetic joint, initial encounter ([facility]) T84.50XA XR SHOULDER 3V AP/Y VIEW/AXILLARY RIGHT (AK) CBC + DIFF SED RATE WESTERGREN C-REACTIVE PROTEIN (CRP) Alem Sheehan returns to follow-up on right reverse total shoulder arthroplasty. This was performed in November 2020 with a good early outcome. His last visit to the office was in December 2020. Since that time he has had worsening pain and difficulty moving the shoulder. He is noticing crepitation with movement as well. No injury that he can recall. No fevers or chills recently. On exam today he has significant difficulty with lifting the arm to about 90 degrees. There is painful palpable crepitation with movement and elevation and internal and external rotation. I reviewed radiographs of his right shoulder today showing breakage of his central baseplate screw with superior shift in the alignment of this component. There is no bone fracture. This is a patient who is nearly 2 years status post a reverse shoulder arthroplasty with good early outcome but worsening pain and feeling of crepitation more recently. This is concerning due to his central baseplate screw breakage for possible deep infection. Today I offered surgery to at a minimum revise his glenoid component. However I think that he would really require complete removal and reimplantation of all components and treatment of a deep shoulder infection. We will plan to have this performed the next available date in [place]. He will undergo presurgical testing in preparation for the procedure. Informed consent was reviewed and signed today in the office and we discussed scheduling him for a surgery date in September. Viry Bales MD Shoulder AND Elbow Surgeon Department of Orthopaedic Surgery [facility]03-13-2023 History of Present illness Narrative* Viry Bales MD - 08/22/2022 7:57 AM EDT Images from the original note were not included. PAIN EVALUATION 08/16/2022 1243 08/18/2022 1345 Pain Level: 7 3 Pain Location: Shoulder-Right -- Description: Raw;Sore Sore Duration Amount of Time: -- 1.5 Duration Units: Weeks Years Frequency: Continuous Continuous Intervention/Comfort measure: Positioning Reposition;Relaxation Comments: Sleep on left side. -- Encounter Diagnosis ICD-10-CM 1. S/P reverse total shoulder arthroplasty, right Z96.611 XR SHOULDER 3V AP/Y VIEW/AXILLARY RIGHT (AK) CBC + DIFF SED RATE WESTERGREN C-REACTIVE PROTEIN (CRP) 2. Infection of prosthetic joint, initial encounter ([facility]) T84.50XA XR SHOULDER 3V AP/Y VIEW/AXILLARY RIGHT (AK) CBC + DIFF SED RATE WESTERGREN C-REACTIVE PROTEIN (CRP) Alem Sheehan returns to follow-up on right reverse total shoulder arthroplasty. This was performed in November 2020 with a good early outcome. His last visit to the office was in December 2020. Since thattime he has had worsening pain and difficulty moving the shoulder. He is noticing crepitation with m ovement as well. No injury that he can recall. No fevers or chills recently. On exam today he has significant difficulty with lifting the arm to about 90 degrees. There is painful palpable crepitation with movement and elevation and internal and external rotation. I reviewed radiographs of his right shoulder today showing breakage of his central baseplate screw with superior shift in the alignment of this component. There is no bone fracture. This is a patient who is nearly 2 years status post a reverse shoulder arthroplasty with good earlyoutcome but worsening pain and feeling of crepitation more recently. This is concerning due to his central baseplate screw breakage for possible deep infection. Today I offered surgery to at a minimum revise his glenoid component. However I think that he would really require complete removal and reimplantation of all components and treatment of a deep shoulder infection. We will plan to have thisperformed the next available date in [place]. He will undergo presurgical testing in preparation for the procedure. Informed consent was reviewed and signed today in the office and we discussed scheduling him for a surgery date in September. Viry Bales MD Shoulder & Elbow Surgeon Department of Orthopaedic Surgery [facility] documented in this encounterOhiohealth [facility] Miscellaneous Notes* Telephone Encounter - Velma Nguyen TIN - 07/29/2022 1:11 PM EST Patient has been identified by name and date of : Patient phones for refill(s): Requested Prescriptions Pending Prescriptions Disp Refills dulaglutide (TRULICITY) 1.5 mg/0.5 mL pen injector 2 mL 11 Sig: Inject 1.5 mg subcutaneously one time a week. Inject once per week. Discard Pen After Date of last office visit in primary care: 04/21/22 Last 2 Encounter Wt Readings: Date: Wt: 07/11/2022 108 kg (238 lb) 07/05/2022 107.3 kg (236 lb 9.6 oz) Previous labs/tests for medication: Not applicable Please advise. Thank you. Velma Nguyen LPN documented in this encounterOhiohealth [facility]02-07-2023 History of Present illness Narrative* Isael Brucerosalie - 07/19/2022 1:52 PM EST Last saw Dr. Mullen: 01/05/22 Subjective: Patient presents to clinic c/o painful toenails. They state that the nails are especially painful with shoe gear and pressure. Patient states that nails 1-5 b/l are painful. Patient admits to being diabetic and states that their blood sugar was 108 mg/dL this AM. No other pedal complaints at this time. Patient states no change in medications or medical history since last visit. Objective: Patient presents to clinic ambulating in diabetic shoes Vasc: DP and PT pulses are decreased bilateral. CFT is less than 5 seconds bilateral. Skin temperature is warm to cool proximal to distal bilateral. There is no edema or varicosities noted. Neuro: Protective sensation is decreased to the foot and toes when tested with the 5.07 SWM bilateral. Vibratory sensation is absent at the hallux IPJ bilateral. The hallux is downgoing bilateral. Derm: Nails 1-5 b/l are painful, discolored-yellow, thick, crumbly, dystrophic and with subungal debris. Dry blood without nail bed disruption or signs of ifnection to right 2nd toe. Skin is of normal turgor, texture and hair growth is decreased bilateral. There are no hyperkeratosis, ulcerations, scars, verruca or other lesions noted. Ortho: Muscle strength is 5/5 for all pedal groups tested. Ankle joint DF is decreased with the knee extended with no pain or crepitus noted. 1st MPJ ROM is decreased bilateral. Assessment: (B35.1) Onychomycosis (primary encounter diagnosis) (M79.675) Pain in toe of left foot (M79.674) Pain in toe of right foot (E11.42) Diabetic polyneuropathy associated with type 2 diabetes mellitus (HCC (I73.9) PAD (peripheral artery disease) ([facility]) Plan: Patient was seen and evaluated. Nails 1-5 bilateral were debrided in length and thickness. Patient was instructed on the continued importance of diabetic foot care along with proper diet andkeeping their blood sugar under control to prevent complications. Tinea pedis resolvd to b/l feet Patient is to RTC in 3-4 months. Isael Beatty DPM * Radha Baez RN - 07/19/2022 1:40 PM EST Patient presents with: Left Foot - Established Patient, Follow Up, Diabetic Foot Care Right Foot - Established Patient, Follow Up, Diabetic Foot Care Patient presents for diabetic foot care. Denies any foot pain at this time. documented in this encounterOhiohealth [facility]02-07-2023 Instructions* Patient Instructions* Isael Beatty - 07/19/2022 1:52 PM EST Diabetes Foot Care Instructions When you have diabetes, proper foot care is very important. Poor foot care may lead to amputation of a foot or leg. As a person with diabetes, you are more vulnerable to foot problems, because diabetes can damage your nerves and reduce blood flow to your feet. Here are some diabetes foot care tips to follow: Wash and Dry Your Feet Daily Use mild soaps Use warm water Pat your skin dry; do not rub. Thoroughly dry your feet. After washing, use lotion on your feet to prevent cracking. Do not put lotion between your toes. Examine Your Feet Each Day Check the tops and bottoms of your feet. Have someone else look at your feet if you cannot see them. Check for dry, cracked skin. Look for blisters, cuts, scratches, or other sores. Check for redness, increased warmth, or tenderness when touching any area of your feet. Check for ingrown toenails, corns, and calluses. If you get a blister or sore from your shoes, do not pop it. Apply a bandage and wear a differentpair of shoes. Take Care of Your Toenails Cut toenails after bathing, when they are soft. Cut toenails straight across and smooth with a nail file. Avoid cutting into the corners of toes. Do not cut cuticles. If you have neuropathy (or decreased sensation in your feet) a anime artist should always cut your toenails. Be Careful When Exercising Walk and exercise in comfortable shoes. Do not exercise when you have open sores on your feet. Protect Your Feet With Shoes and Socks Never go barefoot. Always protect your feet by wearing shoes or hard-soled slippers or footwear. Avoid shoes with high heels and pointed toes. Avoid shoes that expose your toes or heels (such as open-toed shoes or sandals). These types of shoes increase your risk for injury and potential infections. Try on new footwear with the type of socks you usually wear. Do not wear new shoes for more than an hour at a time. Change your socks daily. Look and feel inside your shoes before putting them on to make sure there are no foreign objects orrough areas. Avoid tight socks. Wear natural-fiber socks (cotton, wool, or a cotton-wool blend). Wear special shoes if your health care provider recommends them. Wear shoes/boots that will protect your feet from various weather conditions (cold, moisture, etc.). Make sure your shoes fit properly. If you have neuropathy (nerve damage), you may not notice that your shoes are too tight. Perform the footwear test described below. Footwear Test Use this simple test to see if your shoes fit correctly: Stand on a piece of paper. (Make sure you are standing and not sitting, because your foot changes shape when you stand.) Trace the outline of your foot. Trace the outline of your shoe. Compare the tracings: Is the shoe too narrow? Is your foot crammed into the shoe? The shoe should be at least 1/2 inch longer than your longest toe and as wide as your foot. Proper Shoe Choices The following types of shoes are best for people with diabetes Closed toes and heels Leather uppers without a seam inside At least 1/2 inch extra space at the end of your longest toe Inside of shoe should be soft with no rough areas Outer sole should be made of stiff material Shoes should be at least as wide as your feet Tips for Foot Care in Diabetes Don't wait to treat a minor foot problem if you have diabetes. Follow your health care provider's guidelines and first aid guidelines. Report foot injuries and infections to your health care provider immediately. Check water temperature with your elbow, not your foot. Do not use a heating pad on your feet. Do not cross your legs. Do not self-treat your corns, calluses, or other foot problems. Go to your health care provider or anime artist to treat these conditions. documented in this encounterOhiohealth [facility]01-30-2023 Instructions* Patient Instructions* Margo Selby APRN.PRINTED [employer]ARD [employer] DRAFTSMAN - 07/11/2022 3:52 PM EST Patient information: Aortic stenosis (The Basics) What is aortic stenosis? -- Aortic stenosis is a condition in which one of the valves in the heart,called the aortic valve, doesn't open fully. The heart valves keep blood flowing in only one direction. When the heart valves work normally, they open all the way to let blood flow through them. Blood flows from a chamber of the heart called the left ventricle, through the aortic valve, into alarge blood vessel called the aorta. The aorta carries blood to the rest of the body. In aortic stenosis, the aortic valve gets stuck and does not open fully. This makes the valve opening narrow. When this happens: ?Not as much blood can flow out of the heart to the rest of the body. ?The heart has to work much harder than usual to pump blood to the rest of the body. Over time, this can cause heart problems. Aortic stenosis usually happens in adults. But some people are born with aortic stenosis. What are the symptoms of aortic stenosis? -- Early on, most people have no symptoms. They usually find out they have aortic stenosis after their doctor or nurse hears a heart murmur on a routine exam. A heart murmur is an extra sound in the heartbeat that doctors or nurses hear when they listen to the heart with a stethoscope. When people do have symptoms, they can have: ?Shortness of breath ?Dizziness or fainting ?Chest pain These symptoms usually happen with physical activity. Let your doctor know if you have any of thesesymptoms. Is there a test for aortic stenosis? -- Yes. To check for aortic stenosis and see how severe it is,your doctor might order an echocardiogram (or echo ). This test uses sound waves to create a picture of your heart as it beats. It shows the size of the heart chambers, how well the heart is pumping, and how well the heart valves are working. If you have aortic stenosis, your doctor might repeat this test over time to see if your condition changes. To get more information about your heart, your doctor might order a test called cardiac catheterization, or cardiac cath. For this, the doctor puts a thin tube into a blood vessel in your leg or arm. Then he or she moves the tube up to your heart. When the tube is in your heart or blood vessels, he or she will take measurements. The doctor might also put a dye that shows up on an X-ray into thetube. It can show if any of the arteries in your heart are narrowed or blocked. This part of the test is called coronary angiography. Your doctor might order a test called an electrocardiogram (ECG or EKG). This test measures the electrical activity in your heart. Some people with aortic stenosis will also have a chest X-ray. A chest X-ray can show the size and shape of your heart. It can also show changes in your lungs from aortic stenosis or other diseases. How is aortic stenosis treated? -- Treatment depends on your symptoms and how severe your aortic stenosis is. If your aortic stenosis is mild or you have little or no symptoms, you might not need anytreatment. But your doctor will follow you to see if your aortic stenosis gets worse or you start to have symptoms. If your aortic stenosis is severe or you have a lot of symptoms, you will likely need treatment. Treatment can include: ?Surgery to replace your aortic valve - During surgery, the doctor will remove your narrowed valve and replace it with a valve that opens normally. This new valve can be made from metal or from tissue from a pig, cow, or horse. In some cases, a new valve comes from another person. Your doctor will talk with you about the benefits and downsides of each option. ?A procedure to put in a new aortic valve without surgery - This is a type of procedure that doctors can do to treat people who can't have valve surgery. It can also be an option for people who are at high risk for problems if they have valve surgery. ?A procedure to open the aortic valve - For this procedure, a doctor inflates a balloon in the narrowed aortic valve to try to open it. This procedure is used in children and young adults, because itis helpful in these people. This procedure is usually not as helpful in older adults. ?Medicines - There are no medicines to treat aortic stenosis. But if you have other heart conditions besides aortic stenosis, your doctor might prescribe medicines to treat those conditions. He or she will also make sure your blood pressure and cholesterol level are under control. Can I play sports? -- If your aortic stenosis is mild or you have little or no symptoms, you can probably play sports. But if your aortic stenosis or symptoms are more serious, your doctor might recommend that you limit your physical activity. What if I want to get ? -- If you want to get , talk with your doctor or nurse. Depending on your aortic stenosis and symptoms, he or she might recommend treating your aortic stenosisbefore you get . All topics are updated as new evidence becomes available and our peer review process is complete. The content on the [employer] website is not intended nor recommended as a substitute for medical advice, diagnosis, or treatment. Always seek the advice of your own physician or other qualified healthcare professional regarding any medical questions or conditions.. 2016 [employer]. All rights reserved. Topic 79997 Version 5.0 documented in this encounterOhiohealth [facility]01-30-2023 History of Present illness Narrative* Margo Selby APRN.CNP - 07/11/2022 3:30 PM EST Chief Complaint Patient presents with: Follow Up History of Present Illness: Alem Sheehan is a very pleasant 72 year old male who presents for routine follow up. He has a past medical history of aortic valve repair 2014, ascending aorta graft replacement 2014, HTN, SIVAKUMAR (CPAP compliant, follows with pulmonary), dyslipidemia, mild CAD on heart cath 2014 (recent normal stress testing), mild carotid stenosis, DM2. He was last seen in office by myself on 12/20/2021. His wifeaccompanies him for his office visit today. He states he has been doing well other than experiencing kidney stones in the summer and fall. He has been instructed to cut back on calcium supplements byendocrinology. He otherwise reports being active camping cutting and carrying wood this summer. He does not feel limited in activity by cardiac complaints. He does however report feeling fatigued in the afternoons and can feel limited by shoulder and back pain. He denies chest discomfort, shortnessof breath, dizziness, palpitations, orthopnea, LE swelling. 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 Diaphragmatic hernia without mention of obstruction or gangrene Esophagitis, unspecified Fatty liver Generalized anxiety disorder Anxiety, Generalized Heartburn 02/27/2017 History of aortic valve replacement 06/12/2014 Other and unspecified hyperlipidemia PMH - PAST MEDICAL HISTORY OF nodules in left lung Profound impairment, one eye, impairment level not further specified left Restless legs syndrome (RLS) Type II or unspecified type diabetes mellitus without mention of complication, not stated as uncontrolled 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ty 02/17/2017 Added automatically from request for surgery [id number] Umbilical hernia 2019 Unspecified asthma(493.90) Unspecified essential hypertension Unspecified sleep apnea PAST SURGICAL HISTORY Procedure Laterality Date ARTHRP KNE CONDYLE&PLATU MEDIAL&LAT COMPARTMENTS Left 12/25/2019 ASCENDING AORTA GRAFT W/BYPASS W/CORON REC 2014 COLONOSCOPY FLX DX W/COLLJ SPEC WHEN PFRMD 02/02/2005 Colonoscopy-repeat in COLONOSCOPY FLX DX W/COLLJ SPEC WHEN PFRMD 04/04/2016 DIAGNOSTIC ARTHROSCOPY SHOULDER +- SYNOVIAL BX Right 01/17/2014 EGD TRANSORAL BIOPSY SINGLE/MULTIPLE 04/23/2009 EYE SURGERY HX Left Eye removed from trauma I&D ABSC SMPL OR SGL Right 07/23/2008 Groin KNEE ARTHROSCOPY Right 05/23/2014 NEUROPLASTY &/TRANSPOSITION ULNAR NERVE ELBOW Right 03/01/2017 RECONSTRUCTION ROTATOR CUFF AVULSION CHRONIC Right 01/17/2014 RPR UMBILICAL HRNA 5 YRS/> REDUCIBLE 04/08/2020 VALVULOPLASTY - AORTIC VALVE 2015 WRIST SURGERY HX Left Mass removal FAMILY HISTORY Problem Relation Age of Onset Asthma Mother Stroke Father blood clot other (Pulmonary embolism) Father Arthritis Sister Lupus DVT Brother Diabetes Brother Hypertension Brother Stroke Maternal Grandmother Heart Maternal Grandmother Heart Maternal Grandfather Heart Paternal Grandmother Stroke Paternal Grandmother Arthritis Daughter Sgrogren's Breast Cancer Maternal Aunt Cancer Maternal Aunt glioblastoma Social History Tobacco Use Smoking status: Never Smokeless tobacco: Never Vaping Use Vaping Use: Never used Substance Use Topics Alcohol use: No Drug use: No ALLERGIES Allergen Reactions Seasonal Allergies Other: See Comments SOB due to tree pollen, dog dander, weeds, cow dander,molds, pine pollen. Erythromycin Diarrhea Hctz [Amiloride-Hyd* Other: See Comments Hypercalcemia Oxycodone GI Upset Tramadol GI Upset Medications: Current Outpatient Medications Medication Sig Dispense Refill buPROPion XL (WELLBUTRIN XL) 150 mg 24 hr tablet Take 1 tablet by mouth once daily. 90 tablet 1 blood sugar diagnostic (ONETOUCH VERIO TEST STRIPS) test strip Test blood sugar(s) 2 times daily. Dx: E11.9 200 Strip 3 losartan (COZAAR) 100 mg tablet Take 1 tablet by mouth once daily. 30 tablet 5 amoxicillin (POLYMOX, AMOXIL) 500 mg capsule 4 capsules 1 hours prior to dental procedure. 4 capsule 4 fluticasone (FLONASE) 50 mcg/actuation nasal spray Use 2 Sprays in each nostril once daily. 3 Each 3 atorvastatin (LIPITOR) 40 mg tablet Take 1 tablet by mouth daily at bedtime. For cholesterol. 90 tablet 1 metFORMIN (GLUCOPHAGE) 1,000 mg tablet Take 1 tablet by mouth twice daily with meals. 180 tablet 1 clotrimazole-betamethasone (LOTRISONE) cream Apply to affected area twice daily. (Patient taking differently: Apply to affected area twice daily. Twice daily as needed) 45 g 1 amLODIPine (NORVASC) 10 mg tablet Take 1 tablet by mouth once daily. 90 tablet 3 magnesium oxide (MAG-OX) 400 mg (241.3 mg magnesium) tablet Take 1 tablet by mouth once daily. 90 tablet 3 carvedilol (COREG) 6.25 mg tablet Take 1 tablet by mouth twice daily. 180 tablet 3 dulaglutide (TRULICITY) 1.5 mg/0.5 mL pen injector Inject 1.5 mg subcutaneously one time a week. Inject once per week. Discard Pen After 2 mL 11 aspirin, enteric coated (ASPIRIN, ENTERIC COATED) 81 mg EC tablet Take 2 tablets by mouth once daily. albuterol (PROVENTIL) 2.5 mg /3 mL (0.083 %) nebulizer solution Use 2.5 mg via nebulizer. albuterol HFA (VENTOLIN HFA) 90 mcg/actuation inhaler Inhale 2 Puffs as instructed every 4 hours asneeded for wheezing/shortness of breath. 18 g 11 ondansetron (ZOFRAN) 4 mg tablet Take 1 tablet by mouth every 8 hours as needed. 10 tablet 0 pramipexole (MIRAPEX) 0.25 mg tablet Take 1 tablet by mouth once daily. 90 tablet 3 fluticasone/vilanterol (BREO ELLIPTA INHALATION) Inhale 1 Puff as instructed once daily. Cholecalciferol, Vitamin D3, 1,000 unit cap Take 1 capsule by mouth once daily. (Patient taking differently: Take 1,000 Units by mouth once daily. Takes 400 MG tablet by mouth daily) 0 lancets (ONE TOUCH DELICA) 33 gauge misc Test blood sugar(s) 2 daily. 200 Each 3 Blood-Glucose Meter (ONETOUCH VERIO SYSTEM) misc Dispense One Kit - Verio Meter Kit. Test blood sugar twice daily. Dx: E11.9. Insulin-no. 1 Each 0 therapeutic multivitamin (THERA VITAMIN) tablet Take 1 tablet by mouth daily with breakfast. 0 CPAP As directed 0 0 Cholecalciferol, Vitamin D3, 25 mcg (1,000 unit) cap Take 1 capsule by mouth once daily. Current Facility-Administered Medications Medication Dose Route Frequency Provider Last Rate Last Admin perflutren lipid microspheres 1.3 mL in NaCl (PF) 0.9% 10 mL injection (DEFINITY) INTRAVENOUS DIRECTED PRN Margo Selby, TECHNOLOGY EDUCATION TEACHER.PRINTED CIRCUIT [employer]ARD PCB DRAFTSMAN sodium chloride 0.9 % (flush) 10 mL (BD POSIFLUSH) 10 mL INTRAVENOUS DIRECTED PRN Margo Selby, TECHNOLOGY EDUCATION TEACHER.PRINTED CIRCUIT BOARD PCB DRAFTSMAN Review of Systems Constitutional: Positive for malaise/fatigue. Negative for chills, diaphoresis, fever and weight loss. HENT: Negative for congestion, ear pain, nosebleeds, sinus pain and sore throat. Eyes: Negative for pain. Respiratory: Negative for cough, shortness of breath and wheezing. Cardiovascular: Negative for chest pain, palpitations and leg swelling. Gastrointestinal: Negative for abdominal pain, blood in stool and melena. Genitourinary: Negative for hematuria. Musculoskeletal: Positive for back pain and joint pain. Negative for falls. Neurological: Negative for dizziness, tingling, sensory change, speech change, focal weakness, lossof consciousness, weakness and headaches. Endo/Heme/Allergies: Does not bruise/bleed easily. Psychiatric/Behavioral: Negative for depression, memory loss and suicidal ideas. The patient is notnervous/anxious and does not have insomnia. Physical Examination: Vitals:BP 138/86 Pulse 76 Resp 12 Ht 6' 2 (1.88m) Wt 238 lb (108.0kg) SpO2 98% BMI 30.54 kg/(m^2). Last 2 Encounter Wt Readings: Date: Wt: 07/05/2022 236 lb 9.6 oz (107.3 kg) 04/21/2022 237 lb (107.5 kg) Physical Exam HENT: Head: Normocephalic. Eyes: Pupils: Pupils are equal, round, and reactive to light. Cardiovascular: Rate and Rhythm: Normal rate and regular rhythm. Pulses: Radial pulses are 2+ on the right side and 2+ on the left side. Dorsalis pedis pulses are 2+ on the right side and 2+ on the left side. Heart sounds: Normal heart sounds, S1 normal and S2 normal. Pulmonary: Effort: Pulmonary effort is normal. No accessory muscle usage or respiratory distress. Breath sounds: Normal breath sounds. Abdominal: General: Bowel sounds are normal. Palpations: Abdomen is soft. Musculoskeletal: General: Normal range of motion. Cervical back: Normal range of motion. Right lower leg: No edema. Left lower leg: No edema. Skin: General: Skin is warm and dry. Neurological: Mental Status: He is alert and oriented to person, place, and time. Gait: Gait is intact. Psychiatric: Mood and Affect: Affect normal. Cognition and Memory: Memory normal. Judgment: Judgment normal. Most Recent Cardiac Testing Stress testing 02/21/2022 CONCLUSIONS: 1. SPECT Perfusion Study: Normal. 2. There is no scintigraphic evidence for inducible ischemia. 3. No evidence of scarred myocardium. 4. Left ventricle is normal in size. The left ventricle systolic function is normal. 5. Right ventricle is normal in size. The right ventricle systolic function is normal. 6. This is a low risk scan. Gated Stress FBP Gated Rest FBP LVEF % 70 61 Echocardiogram 2022 CONCLUSIONS: - Technically difficult exam due to body habitus. - Exam indication: s/p AV repair, ascending aortic repair - The left ventricle is normal in size. Left ventricular systolic function is normal. EF = 61 5% (2D biplane) - The right ventricle is normal in size. Right ventricular systolic function is normal. - The visualized aorta is borderline dilated with a maximal dimension of 3.9 cm. - Bicuspid aortic valve. S/P aortic valve repair. There is no aortic valve regurgitation. The peak gradient is 37 mmHg, the mean gradient is 23 mmHg and the dimensionless valve index is 0.25. Prior pk/mn gradients were 33/19 mmHg. - Exam was compared with the prior CC echocardiographic exam performed on 05/26/2020, no significant change. Echo Vincent 03/2021 EF 55%, mild AI C 11/05/14 DIAGNOSTIC FINDINGS Coronary Anatomy: Right Dominant Injection Site(s): Left Main Coronary Artery and Right Coronary Artery The LMT is Normal. Additional Comment: angiographically free of disease; gives off LAD, LCx, and Ramus vessels. The LAD is Normal. Additional Comment: minimal luminal irregularities. The Circumflex is Normal. Additional Comment: minimal luminal irregularities. The Ramus is Normal. Additional Comment: minimal luminal irregularities. The RCA is Normal. Additional Comment: Dominant vessel with minimal luminal irregularities. Assessment and Plan: Bicuspid Aortic valve stenosis s/p AV repair 2014 -ECHO on 2022 showing peak and mean gradients of 37 & 23 mmHg, with an HOLLIE of cm , and DI of 0.25 indicating that the patient is with mild aortic valve stenosis -LVEF is 61% -NYHA class 1 S/p ascending aorta graft replacement -replacement of the ascending aorta with a #26 graft 11/17/[address] Cifuentes -recent echocardiogram stable aorta measurements -continue BB and ARB Chronic diastolic HF -EF 61% -Continue Coreg -compensated on exam -recommended heart healthy, 2g low sodium diet, daily weights CAD -mild CAD on [facility] 2014 -Recent stress testing without suggestion of ischemia -EF 61% -without symptoms concerning for angina -continue aspirin and Lipitor -encouraged routine activity and heart healthy diet for risk factor modification HTN -138/86 -Continue current medication(s) -Encouraged dietary sodium restriction/DASH diet -Recommended regular aerobic exercise. -Recommend home blood pressure monitoring, to bring results in on next visit -Discussed need and benefit for weight loss. -Goal of BP <130/80 Dyslipidemia -Lipid panel May 2022 LDL 60 -continue Lipitor 40 mg SIVAKUMAR -CPAP compliant Carotid stenosis -US 12/29/2020 mild 20 to 39% bilaterally -Continue statin Obesity -lifestyle modifications -encouraged a heart healthy diet, routine exercise and weight loss DM2 -A1C May 2022 5.4 -oral medication control Follow-up in 1 year. Patient to call with any issues or concerns prior to then. Electronically signed by Margo Selby APRN.CNP on July 11, 2022, 2:29 PM documented in this encounterOhiohealth [facility]-30-[facility]23 Miscellaneous Notes* Telephone Encounter - Tera Nava LPN - 07/11/2022 8:59 AM EST Patient phones requesting refills as follows: Requested Prescriptions Pending Prescriptions Disp Refills buPROPion XL (WELLBUTRIN XL) 150 mg 24 hr tablet 90 tablet 1 Sig: Take 1 tablet by mouth once daily. SILVINO 04/21/22 NOV 10/19/22 Please review and advise. Tera Nava LPN documented in this encounterOhiohealth [facility]in [facility]01-24-2023 Instructions* Patient Instructions* Anthony Knight MD - 07/05/2022 4:29 PM EST - Lower the vitamin D to 1000 units every other day, OR take vitamin D 600 units daily - Try to obtain 800-1000 mg of calcium per day from diet without using calcium pills - Please repeat the 24 hour urine collection at your convenience, and I will update you about the result Here is the estimated calcium content of a variety of foods: Produce Serving Size Estimated Calcium* Latia greens, frozen 8 oz 360 mg Broccoli kalia 8 oz 200 mg Kale, frozen 8 oz 180 mg Soy Beans, green, boiled 8 oz 175 mg Bok [place], cooked, boiled 8 oz 160 mg Figs, dried 2 figs 65 mg Broccoli, fresh, cooked 8 oz 60 mg Oranges 1 whole 55 mg Seafood Serving Size Estimated Calcium* Sardines, canned with bones 3 oz 325 mg Baker, canned with bones 3 oz 180 mg Shrimp, canned 3 oz 125 mg Dairy Serving Size Estimated Calcium* Ricotta, part-skim 4 oz 335 mg Yogurt, plain, low-fat 6 oz 310 mg Milk, skim, low-fat, whole 8 oz 300 mg Yogurt with fruit, low-fat 6 oz 260 mg Mozzarella, part-skim 1 oz 210 mg Cheddar 1 oz 205 mg Yogurt, Gambian 6 oz 200 mg Zimbabwean Cheese 1 oz 195 mg Feta Cheese 4 oz 140 mg Cottage Cheese, 2% 4 oz 105 mg Frozen yogurt, vanilla 8 oz 105 mg Ice Cream, vanilla 8 oz 85 mg Parmesan 1 tbsp 55 mg Fortified Food Serving Size Estimated Calcium* [place] milk, rice milk or soy milk, fortified 8 oz 300 mg Rawlins juice and other fruit juices, fortified 8 oz 300 mg Tofu, prepared with calcium 4 oz 205 mg Waffle, frozen, fortified 2 pieces 200 mg Oatmeal, fortified 1 packet 140 mg [place] muffin, fortified 1 muffin 100 mg Cereal, fortified 8 oz 100-1,000 mg Other Serving Size Estimated Calcium* Mac & cheese, frozen 1 package 325 mg Pizza, cheese, frozen 1 serving 115 mg Pudding, chocolate, prepared with 2% milk 4 oz 160 mg Beans, baked, canned 4 oz 160 mg documented in this encounterOhiohealth [facility]in [facility]01-24-2023 History of Present illness Narrative* Anthony Knight MD - 07/05/2022 4:20 PM EST Images from the original note were not included. ENDOCRINOLOGY CLINIC NOTE Mr. Sheehan is a 72 year old male with CAD, GERD, T2DM, HTN, bicuspid aortic valve, asthma and sleep apnea presented for follow-up of hypercalcemia HPI Mr. Sheehan was noted to have a calcium level of 10.3 with GFR 54 in 2018. He has had intermittent mild hypercalcemia (normal iCa) since then. Labs in 10/2021 showed total calcium 10.7 (no concomitant albumin), iCa 1.27, GFR 77 vitamin D47.6, PTH 33. His PTHrP was undetectable and his SPEP was without M protein in 03/2020 Mr. Sheehan reported back and shoulder pains, but no polyuria, polydipsia, muscle aches. He has diarrhea alternating with constipation at times. He has a history of kidney stone 10 years ago, but no history of fractures. There is no family history of calcium related problems. He was taking calcium + vitamin D 500 mg + 200 unit twice a day and was on it for several years, in addition to vitamin D 1000 units daily We stopped the calcium supplements discussed targeting 800-1000 mg calcium per day from diet. Repeat labs in 01/2022 showed total corrected calcium 9.2, iCa 1.29, GFR 77, vitamin D 39, PTH 40, normal TFTs and 24-hour urine calcium 302 [urine volume 1.4 L] He had a kidney stone in 01/2022 and underwent stent placement. He is not taking calcium pills, but is taking vitamin D 1000 units daily Interval events: Repeat labs in 05/2022 showed albumin adjusted calcium 9.1, ionized calcium 1.25, vitamin D 68, P3.1, GFR 90, PTH 34 and 24-hour urine calcium ?? 4.2, urine volume 24 mL. 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 Diaphragmatic hernia without mention of obstruction or gangrene Esophagitis, unspecified Fatty liver Generalized anxiety disorder Anxiety, Generalized Heartburn 02/27/2017 History of aortic valve replacement 06/12/2014 Other and unspecified hyperlipidemia PMH - PAST MEDICAL HISTORY OF nodules in left lung Profound impairment, one eye, impairment level not further specified left Restless legs syndrome (RLS) Type II or unspecified type diabetes mellitus without mention of complication, not stated as uncontrolled 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ty 02/17/2017 Added automatically from request for surgery [id number] Umbilical hernia 2019 Unspecified asthma(493.90) Unspecified essential hypertension Unspecified sleep apnea PAST SURGICAL HISTORY Procedure Laterality Date ARTHRP KNE CONDYLE&PLATU MEDIAL&LAT COMPARTMENTS Left 12/25/2019 ASCENDING AORTA GRAFT W/BYPASS W/CORON REC 2014 COLONOSCOPY FLX DX W/COLLJ SPEC WHEN PFRMD 02/02/2005 Colonoscopy-repeat in COLONOSCOPY FLX DX W/COLLJ SPEC WHEN PFRMD 04/04/2016 DIAGNOSTIC ARTHROSCOPY SHOULDER +- SYNOVIAL BX Right 01/17/2014 EGD TRANSORAL BIOPSY SINGLE/MULTIPLE 04/23/2009 EYE SURGERY HX Left Eye removed from trauma I&D ABSC SMPL OR SGL Right 07/23/2008 Groin KNEE ARTHROSCOPY Right 05/23/2014 NEUROPLASTY &/TRANSPOSITION ULNAR NERVE ELBOW Right 03/01/2017 RECONSTRUCTION ROTATOR CUFF AVULSION CHRONIC Right 01/17/2014 RPR UMBILICAL HRNA 5 YRS/> REDUCIBLE 04/08/2020 VALVULOPLASTY - AORTIC VALVE 2015 WRIST SURGERY HX Left Mass removal FAMILY HISTORY Problem Relation Age of Onset Asthma Mother Stroke Father blood clot other (Pulmonary embolism) Father Arthritis Sister Lupus DVT Brother Diabetes Brother Hypertension Brother Stroke Maternal Grandmother Heart Maternal Grandmother Heart Maternal Grandfather Heart Paternal Grandmother Stroke Paternal Grandmother Arthritis Daughter Sgrogren's Breast Cancer Maternal Aunt Cancer Maternal Aunt glioblastoma Social History Tobacco Use Smoking status: Never Smokeless tobacco: Never Vaping Use Vaping Use: Never used Substance Use Topics Alcohol use: No Drug use: No (Not in a hospital admission) Allergies As of Date: 07/05/2022 Allergen Noted Reaction SEASONAL ALLERGIES 12/03/2013 Other: See Comments ERYTHROMYCIN 12/25/2006 Diarrhea HCTZ [AMILORIDE-HYDROCHLOROTHIAZI*09/16/2020 Other: See Comments OXYCODONE 12/20/2021 GI Upset TRAMADOL 12/20/2021 GI Upset Fully Assessed 06/02/2022 Current Outpatient Medications Medication Sig Dispense Refill blood sugar diagnostic (ONETOUCH VERIO TEST STRIPS) test strip Test blood sugar(s) 2 times daily. Dx: E11.9 200 Strip 3 losartan (COZAAR) 100 mg tablet Take 1 tablet by mouth once daily. 30 tablet 5 amoxicillin (POLYMOX, AMOXIL) 500 mg capsule 4 capsules 1 hours prior to dental procedure. 4 capsule 4 fluticasone (FLONASE) 50 mcg/actuation nasal spray Use 2 Sprays in each nostril once daily. 3 Each 3 atorvastatin (LIPITOR) 40 mg tablet Take 1 tablet by mouth daily at bedtime. For cholesterol. 90 tablet 1 metFORMIN (GLUCOPHAGE) 1,000 mg tablet Take 1 tablet by mouth twice daily with meals. 180 tablet 1 buPROPion XL (WELLBUTRIN XL) 150 mg 24 hr tablet Take 1 tablet by mouth once daily. 90 tablet 1 clotrimazole-betamethasone (LOTRISONE) cream Apply to affected area twice daily. (Patient not taking: Reported on 05/12/2022) 45 g 1 amLODIPine (NORVASC) 10 mg tablet Take 1 tablet by mouth once daily. 90 tablet 3 magnesium oxide (MAG-OX) 400 mg (241.3 mg magnesium) tablet Take 1 tablet by mouth once daily. 90 tablet 3 carvedilol (COREG) 6.25 mg tablet Take 1 tablet by mouth twice daily. 180 tablet 3 dulaglutide (TRULICITY) 1.5 mg/0.5 mL pen injector Inject 1.5 mg subcutaneously one time a week. Inject once per week. Discard Pen After 2 mL 11 Cholecalciferol, Vitamin D3, 25 mcg (1,000 unit) cap Take 1 capsule by mouth once daily. (Patient not taking: Reported on 05/12/2022) aspirin, enteric coated (ASPIRIN, ENTERIC COATED) 81 mg EC tablet Take 2 tablets by mouth once daily. albuterol (PROVENTIL) 2.5 mg /3 mL (0.083 %) nebulizer solution Use 2.5 mg via nebulizer. albuterol HFA (VENTOLIN HFA) 90 mcg/actuation inhaler Inhale 2 Puffs as instructed every 4 hours asneeded for wheezing/shortness of breath. 18 g 11 ondansetron (ZOFRAN) 4 mg tablet Take 1 tablet by mouth every 8 hours as needed. (Patient not taking: Reported on 05/12/2022) 10 tablet 0 pramipexole (MIRAPEX) 0.25 mg tablet Take 1 tablet by mouth once daily. 90 tablet 3 fluticasone/vilanterol (BREO ELLIPTA INHALATION) Inhale 1 Puff as instructed once daily. Cholecalciferol, Vitamin D3, 1,000 unit cap Take 1 capsule by mouth once daily. 0 lancets (ONE TOUCH DELICA) 33 gauge misc Test blood sugar(s) 2 daily. 200 Each 3 Blood-Glucose Meter (ONETOUCH VERIO SYSTEM) misc Dispense One Kit - Verio Meter Kit. Test blood sugar twice daily. Dx: E11.9. Insulin-no. 1 Each 0 therapeutic multivitamin (THERA VITAMIN) tablet Take 1 tablet by mouth daily with breakfast. 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 COMPLETE REVIEW OF SYSTEMS: Answers submitted by the patient for this visit: Core Review of Systems (Submitted on 07/01/2022) Fever : No Night Sweats: No Recent Unintentional Weight Change: No Nasal Congestion: Yes Hearing Loss: Yes Vision Disturbance: No A Cough: No Difficulty Breathing?: No Chest Pain: No Irregular Heart Beat: No Leg Swelling: No Nausea: No Diarrhea: Yes Black Tarry Stools: No Difficulty Urinating?: No Awaken at Night More Than Once to Urinate?: No Joint Pain or Stiffness: Yes Muscle Aches: Yes Leg or Foot Discomfort at Night?: No A Rash: Yes Dizziness: Yes Headaches: No Memory Loss: Yes Seizures: No PHYSICAL EXAM: 07/05/22 1610 BP: 130/83 Pulse: 70 Resp: 16 SpO2: 97% Weight: 107.3 kg (236 lb 9.6 oz) Height: 183.7 cm (6' 0.32 ) General: NAD, alert and cooperative, no facial plethora Previous exam: HEENT: EOMI, no proptosis/stare. Neck: supple with full ROM. No thyromegaly or palpable nodules Cardiovascular: RRR, +S1 and S2, systolic murmur on the left parasternal area Lungs: Clear to auscultation bilaterally Abdomen: soft, non-tender, non-distended Extremities: No LE oedema Neuro: Deep tendon reflexes are normal with a normal relaxation phase. Psych: Normal affect MSK: No back tenderness Labs: 06/22/2021 07:40 10/18/2021 15:22 10/28/2021 09:39 Calcium 9.7 10.7 (H) Ionized Calcium 1.31 (H) Normalized CAlcium 1.27 eGFR 77 eGFR-All Other Races >60 Vitamin D 25 Hydroxy 47.6 PTH, Intact 33 03/31/2020 13:52 PTH Related Peptide <2.0 Assessment and Recommendations: Mr. Sheehan is a pleasant 72-year-old man presented with his for follow up of hypercalcemia. He has had mild hypercalcemia since 2019, with intermittently low GFR and PTH in the lower half of normal. This was initially thought to be PTH dependent hypercalcemia. However, repeat labs after stopping the calcium pills and obtaining calcium from diet showed normal PTH, normal calcium including the ionized portion on 2 occasions. His urine calcium was slightly high. This suggested that the high calcium was because of excessive intake Repeat labs showed normal PTH, normal calcium, normal ionized calcium and high- normal vitamin D. The 24-hour urine calcium was not done properly. Will continue to target calcium intake 800-1000 mg/day without using calcium pills. I asked him to lower the vitamin D to either 1000 units every other day, or 600 units once a day. We will repeat the 24-hour urine calcium. If the level is appropriate, I will see him in 1 year with repeat labs at that time. Some of the above has been copied from prior documentation on 02/22/2022 but peters elements reviewed, confirmed, and/or updated by me (Anthony Knight MD) on 07/05/2022 I spent a total of 35 minutes on the date of the service which included preparing to see the patient, [id number] patient care, completing clinical documentation, obtaining and/or reviewing separately obtained history, counseling and educating the patient/family/caregiver, and ordering medications, tests, or procedures. Anthony Knight MD documented in this encounterOhio[facility]12-29-2022 Miscellaneous Notes* Telephone Encounter - Alondra Lee RN - 06/09/2022 1:47 PM EST Patient has been identified by name and date of : Yes, Provider: Paz Date:06/09/22 Time 0145PM Pharmacy phones for refill(s): Requested Prescriptions Pending Prescriptions Disp Refills blood sugar diagnostic (ONETOUCH VERIO TEST STRIPS) test strip 200 Strip 3 Sig: Test blood sugar(s) 2 times daily. Dx: E11.9 Patient requests new script for test strips be sent to different pharmacy. Date of last office visit with pcp: 04/21/22 Date of last office visit in primary care: Last 2 Encounter Wt Readings: Date: Wt: 04/21/2022 107.5 kg (237 lb) 02/22/2022 109.8 kg (242 lb) Previous labs/tests for medication: Diabetes: Hemoglobin A1C (%) Date Value 06/07/2022 5.4 05/19/2022 5.9 06/22/2021 13.1 02/19/2021 7.2 Hemoglobin A1C (POCT) (%) Date Value 11/19/2021 6.0 Please advise. Thank you. Alondra Lee, RN documented in this encounterOhio[facility]12-09-2022 Miscellaneous Notes* Telephone Encounter - Tera Nava LPN - 05/20/2022 3:00 PM EST Pt notified. He verbalized understanding. Tera Nava LPN * Telephone Encounter - Roberto Carlos Mullen MD - 05/20/2022 12:54 PM EST Sugars are great. Numbers are much better. One liver enzyme is up. Recheck labs in two weeks documented in this encounterOhiohealth [facility]12-01-2022 History of Present illness Narrative* Francisco Javier Malik MD - 05/12/2022 1:48 PM EST Francisco Javier Malik MD Department of Orthopaedics [facility] [address] [place] [address] Dept: [phone] Dept June 02, 2022 CHIEF COMPLAINT: New Patient and Pain of the Right Knee HPI Patient referred by Elsi Gallagher PA-C to discuss total knee replacement. Patient c/o intermittent pain that occurs with walking. States pain has been ongoing for the past year or so and has been gradually getting worse. He has new XR to review. AMB ROOMING INTAKE FLOWSHEET DATA Risk Screening Do you have concerns about personal safety or safety in the home?: No Pain Pain Level: 5 Pain Location: Knee-Right Description: Sore Duration Amount of Time: 1 Duration Units: Years Frequency: Intermittent Intervention/Comfort measure: Reposition, Relaxation Patient presents with: Right Knee - New Patient, Pain ASSESSMENT: M25.561, G89.29 Chronic pain of right knee (primary encounter diagnosis) M17.11 Primary osteoarthritis of right knee PLAN: We just simply having more conversation about knee replacement. He has contemplating as the knee has been causing more issues. Mr. Alem Sheehan was advised as to contrast therapies and/or to take analgesics/anti-inflammatories as needed and all contraindications were reviewed. OBJECTIVE: Mr. Alem Sheehan is a pleasant 72 year old in no apparent distress. Gen:There were no vitals taken for this visit. nl development, non obese, no deformities ENT: Normocephalic, normal hearing, moist mucosa CV: Pulses:DP/PT= 2+ and symmetric, capillary refill < 2 secs, no peripheral edema/varicosities Skin: no rash, bruising or lesions. Good turgor. Psych: cooperative and appropriate, alert and oriented x 3, good mood and affect. Musculoskeletal: Patient walks with mild antalgia, normal station. Hip motion without pain. Knee with mild effusion.Patella tracks normally. There is slight patellar crepitance. No pain along the medial or lateral facets. Range of motion 5-120 degrees. Positive medial, lateral joint line pain on palpation. Ligamentous exam stable on varus and valgus stress testing at 0 and 30 degrees, though he does slightly on the medial side with valgus stress consistent with some ligamentous laxity. Ana's examination isnegative. Posterior drawer is negative. Negative McMurrays, without palpable click. Extremity is warm and well perfused. Sensation is grossly intact to light touch, subjectively. Imaging: IMPRESSION: DEGENERATIVE JOINT DISEASE OF THE KNEE JOINT AND PATELLOFEMORAL JOINT UNCHANGED FROM THE PREVIOUS EXAM. Predatory Animal Hunter: ADRIANE Transcribe Date/Time: May 14 2022 12:42P Dictated by : RUFINO DAMON MD This examination was interpreted and the report reviewed and electronically signed by: RUFINO DAMON MD on May 14 2022 12:45PM EST Results-Findings * * *Final Report* * * DATE OF EXAM: May 12 2022 10:23AM WOX [id number] - XR KNEE 4V AP/PA BOTH+LAT/AKSHAT RT / PROCEDURE REASON: Right knee pain, unspecified chronicity * * * * Physician Interpretation * * * * HISTORY: 72-YEAR-OLD MALE WITH Right knee pain, unspecified chronicity . Chronic anterior right knee pain increasing over time without injury TECHNIQUE: XR KNEE 4V AP/PA BOTH+LAT/AKSHAT RT Laterality: RIGHT Number of different views (projections): 4 COMPARISON: Limited right knee views from left knee exam of 2020 RESULT: Osteophytes around the joint. Moderate medial compartment joint space narrowing. Narrowing of patellofemoral joint medially with osteophytes. Enthesophyte on patella at insertion quadriceps tendon. No joint effusion. No fracture. Left total knee prosthesis is present. Supporting Subjective Information Below: Past Surgical History: PAST SURGICAL HISTORY Procedure Laterality Date ARTHRP KNE CONDYLE&PLATU MEDIAL&LAT COMPARTMENTS Left 12/25/2019 ASCENDING AORTA GRAFT W/BYPASS W/CORON REC 2014 COLONOSCOPY FLX DX W/COLLJ SPEC WHEN PFRMD 02/02/2005 Colonoscopy-repeat in COLONOSCOPY FLX DX W/COLLJ SPEC WHEN PFRMD 04/04/2016 DIAGNOSTIC ARTHROSCOPY SHOULDER +- SYNOVIAL BX Right 01/17/2014 EGD TRANSORAL BIOPSY SINGLE/MULTIPLE 04/23/2009 EYE SURGERY HX Left Eye removed from trauma I&D ABSC SMPL OR SGL Right 07/23/2008 Groin KNEE ARTHROSCOPY Right 05/23/2014 NEUROPLASTY &/TRANSPOSITION ULNAR NERVE ELBOW Right 03/01/2017 RECONSTRUCTION ROTATOR CUFF AVULSION CHRONIC Right 01/17/2014 RPR UMBILICAL HRNA 5 YRS/> REDUCIBLE 04/08/2020 VALVULOPLASTY - AORTIC VALVE 2015 WRIST SURGERY HX Left Mass removal Medications: Current Outpatient Medications Medication Sig amoxicillin (POLYMOX, AMOXIL) 500 mg capsule 4 capsules 1 hours prior to dental procedure. fluticasone (FLONASE) 50 mcg/actuation nasal spray Use 2 Sprays in each nostril once daily. atorvastatin (LIPITOR) 40 mg tablet Take 1 tablet by mouth daily at bedtime. For cholesterol. metFORMIN (GLUCOPHAGE) 1,000 mg tablet Take 1 tablet by mouth twice daily with meals. blood sugar diagnostic (LimaTOUCH VERIO TEST STRIPS) test strip Test blood sugar(s) 2 times daily. Dx: E11.9 buPROPion XL (WELLBUTRIN XL) 150 mg 24 hr tablet Take 1 tablet by mouth once daily. amLODIPine (NORVASC) 10 mg tablet Take 1 tablet by mouth once daily. magnesium oxide (MAG-OX) 400 mg (241.3 mg magnesium) tablet Take 1 tablet by mouth once daily. carvedilol (COREG) 6.25 mg tablet Take 1 tablet by mouth twice daily. dulaglutide (TRULICITY) 1.5 mg/0.5 mL pen injector Inject 1.5 mg subcutaneously one time a week. Inject once per week. Discard Pen After aspirin, enteric coated (ASPIRIN, ENTERIC COATED) 81 mg EC tablet Take 2 tablets by mouth once daily. albuterol (PROVENTIL) 2.5 mg /3 mL (0.083 %) nebulizer solution Use 2.5 mg via nebulizer. albuterol HFA (VENTOLIN HFA) 90 mcg/actuation inhaler Inhale 2 Puffs as instructed every 4 hours asneeded for wheezing/shortness of breath. pramipexole (MIRAPEX) 0.25 mg tablet Take 1 tablet by mouth once daily. fluticasone/vilanterol (BREO ELLIPTA INHALATION) Inhale 1 Puff as instructed once daily. Cholecalciferol, Vitamin D3, 1,000 unit cap Take 1 capsule by mouth once daily. lancets (ONE TOUCH DELICA) 33 gauge misc Test blood sugar(s) 2 daily. Blood-Glucose Meter ([employer] VERIO SYSTEM) [facility] Dispense One Kit - Verio Meter Kit. Test blood sugar twice daily. Dx: E11.9. Insulin-no. therapeutic multivitamin (THERA VITAMIN) tablet Take 1 tablet by mouth daily with breakfast. CPAP As directed losartan (COZAAR) 100 mg tablet Take 1 tablet by mouth once daily. clotrimazole-betamethasone (LOTRISONE) cream Apply to affected area twice daily. (Patient not taking: Reported on 05/12/2022) Cholecalciferol, Vitamin D3, 25 mcg (1,000 unit) cap Take 1 capsule by mouth once daily. (Patient not taking: Reported on 05/12/2022) ondansetron (ZOFRAN) 4 mg tablet Take 1 tablet by mouth every 8 hours as needed. (Patient not taking: Reported on 05/12/2022) Current Facility-Administered Medications Medication Dose Route Frequency perflutren lipid microspheres 1.3 mL in NaCl (PF) 0.9% 10 mL injection (DEFINITY) INTRAVENOUS DIRECTED PRN sodium chloride 0.9 % (flush) 10 mL (BD POSIFLUSH) 10 mL INTRAVENOUS DIRECTED PRN Allergies: Seasonal Allergies, Erythromycin, Hctz [Amiloride- Hydrochlorothiazide], Oxycodone, and Tramadol ROS: General (negative for fatigue, malaise, weight loss/gain) HEENT (negative for headache, earache, recent vision changes, sinus pain, sore throat) Respiratory (no recent shortness of breath, hemoptysis) CV (negative for chest tightness, palpitations) Musculoskeletal (see HPI) Psych (no depression, anxiety) Francisco Javier Malik MD [facility] History of Present illness Narrative* Dinah Fenton, PT - 04/27/2022 7:29 AM EST Episode Visit Count: 7 Therapist That Will Accept/Oversee The Plan Of Care: Dinah Fenton PT Start of Care Date: 03/28/22 Onset Date: 03/28/21 (Worse over last few years) Plan of Care Certification Date: 03/28/22 Next Certification Due Date: 05/09/22 Patient Identified by Name and Date of : Yes RE[facility]ABILIT[facility]TS [facility]Y PHYSICAL THERAPY DISCONTINUANCE OF CARE PLAN OF CARE UPDATE: Assessment: Alem Sheehan is discontinued from Physical Therapy services due to maximal benefit..Patient was seen for 7 visits from Start of Care Date: 03/28/22 to 04/27/2022 and treatment included: Therapeutic exercise, Self-mcc management, Patient/Family/Caregiver Education, and Body mechanics training. Goals for Episode of Care: created on 03/28/22 through 05/09/22 Independent in home exercises./ achieved Patient will decrease pain to 3/10 with functional activities to allow patient to improve standing tolerance for ADLs.partially achieved Stand / Walk greater 5-10 min. without pain/symptoms./ partially achieved can stand about 10 min. Patient will be able to tolerate functional activities without increased symptoms./ partially achieved. Pain with lifting even small grocery bags Knowledgeable regarding prophylaxis./ achieved Patient will increase strength of core to 4+/5 to allow for improve ability to complete ADLs./ partially achieved Patient Goals: Not have pain, Walk greater 1000 feet without increased pain/ not achieved SUBJECTIVE: Patient Reason for Visit: Pt notes that he tried to carry furniture yesterday which causes back pain. . Woke up with pain this morning. States that he took pain pill for pain but did not try exs.. Pain: Pain Pain Level: 0 (took pain meds.) Pain Location: Low Back/Lumbar Spine- Midline Description: Aching;Tightness Frequency: Intermittent Post Treatment Pain Post Treatment Pain Level: No Change PROMIS Scales Higher is Better 03/26/2022 04/19/2022 04/25/2022 Phys Func - Score 40 (mild dysfunction) - 38 (moderate dysfunction) Phys Func - Percentile 16 % - 12 % Social Roles - Score - - - Social Role - Percentile - - - GH Physical - Score 37.4 (Fair) 34.9 (Poor) - GH Physical - Percentile 10 % 7 % - GH Mental - Score 45.8 (Good) 41.1 (Good) - GH Mental - Percentile 34 % 19 % - Self-Eff Symptom - Score 46 (Average) - 42 (Average) Self-Eff Symptom - Percentile 34 % - 21 % T-scores: mean of general population = 50. 5 points is clinically meaningfully difference Percentiles provide an indication of how the patient's score ranks in relation to the general population. Higher percentile rankings indicate better function/quality of life. 50th percentile is the average of the general population and indicates half of respondents had a worse score. Lower is Better 01/30/2021 02/27/202104/24/2021 Fatigue - Score 64 (moderate) 57 (mild) 64 (moderate) Fatigue - Percentile 8 % 24 % 8 % T-scores: mean of general population = 50. 5 points is clinically meaningfully difference Percentiles provide an indication of how the patient's score ranks in relation to the general population. Higher percentile rankings indicate better function/quality of life. 50th percentile is the average of the general population and indicates half of respondents had a worse score. OBJECTIVE MEASURES WITH LEVEL OF FUNCTION: Posture / Alignment Posture: Decreased lumbar lordosis Lumbar Spine AROM Lumbar Flexion: Normal LE Strength Trunk Strength: improving Functional Strength Functional Strength: Pt reports increased tolerance to walking and standing since beginning of therapy TREATMENT: Therapeutic Exercise: 1: sit to stand from chair. discussed 2: seated trunk flexion 2x15 3: seated purple rep band 2x15 4: shoulder extension with green band and wand 2x15 5: scapular retraction with bar and green band seated 2x15 6: green rep band dynamic stabilization with perturbation front and side 2x15 7: seated TA wtih arm and leg lifts 1 1/2# 2x10 8: seated TA with arm lifts 1x15 9: seated TA with marches 1 1/2# 2x10 10: TA with pillow seated hip adduction 2x15 Skilled Intervention: Patient was educated in proper exercise technique and purpose for exercises. Skilled judgment was provided in selection of appropriate interventions. Correct performance of therapeutic exercises was facilitated with verbal and visual cuing. Patient education as noted. Self-Chcf Management: 1: reviewed appropriate activities at home and management strategies for reductdion of symptoms Skilled Intervention: Skilled judgment in the selection of proper modification for activity of daily living/home management based on clinical presentation, deficits, and needs. Reviewed patient specific diagnosis in relation to activities of daily living/home management. Activity progression based on professional judgement. Billing Therapeutic Exercise Treatment Minutes: 30 Self-Care/Home Management Treatment Minutes: 10 Total Treatment Time Minutes (timed/untimed): 40 Dinah Fenton PT documented in this encounterOhio[facility]11[facility]11-[facility]22 Miscellaneous Notes* Telephone Encounter - Corrine Mendoza LPN - 04/22/2022 10:11 AM EST Patient called back and was forwarded to scheduling to make appointment with Dr Malik to discuss surgery.. Corrine Menodza LPN * Telephone Encounter - Lauryn Lemus RN - 04/21/2022 3:52 PM EST Called patient and left VM for him to call the office to schedule an OV with Dr. Malik. * Telephone Encounter - Lauryn Lemus RN - 04/21/2022 2:51 PM EST His last OV was 01/31/22 for OA hip pain. Knee was noted, but not sure surgery was actually discussed? documented in this encounterOhio[facility]11-10-[facility] History of Past illness Narrative* Problem Noted Date Resolved Date Depressive disorder 04/21/2022 04/21/2022 Postoperative pneumonia 04/21/2022 04/21/20 Viral infection 04/21/2022 04/21/2022 Dependence on continuous pos itive airway pressure ventilation 03/12/2022 04/21/2022 Dependence on other enabling machines and device s 03/12/2022 04/21/2022 Other specified postprocedural states 03/12/2022 04/21/2022 Personal history of pulmonary embolism 2 04/21/2022 Rheumatoid arthritis, unspecified 03/12/2022 04/21/2022 Ureteric colic 12/20/2021 04/21/2022 Unspecified abdominal pain 12/08/202104/21 Dyspnea, unspecified 04/05/2021 04/21/2022 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 02/17/2017 12/05/2019 Overview: Added automatically from request for surgery [id number] Acute pain of left knee 12/26/2016 11/14/19 Chronic right shoulder pain 12/26/2016 04/0 12/2020 Gross hematuria 11/24/2016 11/13/2020 Malignant neoplasm of kidney excluding renal pel vis 10/21/2016 02/27/2017 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, without long-term current use of insulin 09/30/2016 09/30/2016 Neuropathy 09/30/2016 11/13/2020 Last Assessment & Plan: Assessment: stable on rx Asthma with COPD with exacerbation 08/24/2016 02/27/2017 Counseling and coordination of care 12/15/2014 08/24/2016 SUMMARY 11/21/2014 08/24/2016 Overview: Indication for hospital admission/procedure: Aortic aneurysm LVEF: 65% LVH RVF: Normal Important/Relevant PMH/PSH: BAV, Congenital anomaly of aorta, SIVAKUMAR, Asthma, HTN, HPL, DM, anxiety Preoperative Hospital Course Procedure/Surgeries: 11/17/2014 Mini-BAV repair, Ascending aortic replacement Airway Difficulty: No OR Course: Coagulopathy/bleeding requiring correction with 20u cryo, 8u FFP, 4u plts, 3uprbcs and 2 pump runs for repair of aortic cannulation site Pacing wires: out Postoperative Course/General Impression: S/p AVr/Asc aorta replacement. Plan to wean o2, pep, oob, increase diuresis, cont BB, pain and glucose control. Issues to communicate at signout: CT removed CPAP at night echo done CTA done PT rec acute rehab Needs much encouragement wires out 11/23 d/c to acute rehab today Discharge planning 11/21/2014 05/03/2016 Overview: Pt from [place], [place]. PT rec acute rehab; CM working on placement. Leaving for [facility] in-pt rehab today Hypertension 11/20/2014 02/27/2017 Overview: History: pre op on monopril, norv, Assessment: normotensive currently Plan: Cont BB , cont lasix Atelectasis 11/18/2014 11/19/2014 Overview: Bilateral on CXR. A/P: PEP, EZPAP OOBTC. Volume overload 11/18/2014 08/24/2016 Overview: History: post op Assessment: wt up 5 kg from pre op Plan: cont diuresis On mechanically assisted ventilation 11/17/2014 11/19/2014 Overview: Grade 1 airway. WTE when awake and stable. Extubated on DOS. CPAP at night PEP. Cardiac insufficiency following cardiac surgery 11/17/2014 11/20/2014 Overview: Low CI. CVP low. A/p Epi gtt off. Start BB. Pre-op testing 11/14/2014 08/23/2016 Overview: Images from the original note were not included. [facility] Surgeon: Modesto Cifuentes M.D. Informed Consent Completed: Yes STS Score: unsupported CAD: No Is intended procedure a CABG: No - is a beta hue ordered? No - reason: not indicated H & P completed: Yes 10/28/14 PA/LAT: Completed CT: Completed MRI: N/A LE US: N/A Cath: Yes - reviewed: Yes Echo:Completed EKG: Completed EF %: 65 PI's: N/A Carotid: N/A Mapping: N/A Dental: Completed PFT's: N/A No results for input(s): WBC, HB, HCT, PLT, INR, CREAT in the last 72 hours. UA: Normal HCG:N/A ABO/ABO Confirmed: Yes Blood ordered: No SA Swab: Yes - results: Negative Last Dose of Anticoagulation: OTC 11/12/14 Op Note: N/A Pacemaker Check: N/A Consults: none DM: Yes, A1c: 6.6% Cardiac Surgical prep: N/A SIGNATURE: JERSON Tian CHECKED BY: [email or web address] DATE of SERVICE: 11/14/2014 TIME of SERVICE: 10:59 AM discharge planning 11/10/2014 11/12/2014 Overview: 64yo male without any concerns presently Preop testing 11/10/2014 11/12/2014 Overview: Images from the original note were not included. [facility] Surgeon: Modesto Cifuentes M.D. Informed Consent Completed: pending STS Score: unsupported CAD: Yes - CAD on Problem List: Yes Is intended procedure a CABG: No - is a beta hue ordered? No - reason: not indicated H & P completed: Yes PA/LAT: Completed CT: Completed MRI: N/A LE US: N/A Cath: Yes - reviewed: Yes Echo:Completed EKG: Completed EF %: 65 PI's: Completed Carotid: N/A Mapping: N/A Dental: Pending PFT's: Completed No results for input(s): WBC, HB, HCT, PLT, INR, CREAT in the last 72 hours. UA: Normal HCG:N/A ABO/ABO Confirmed: Yes Blood ordered: No SA Swab: Yes - results: Pending Last Dose of Anticoagulation: vit basa LD 11/03 Op Note: N/A Pacemaker Check: N/A Consults: none DM: No Cardiac Surgical prep: N/A SIGNATURE: Kate Smith RN CHECKED BY: DATE of SERVICE: 11/10/2014 TIME of SERVICE: 10:05 AM Right rotator cuff tear 12/31/2013 08/25/19 17 Pain in joint, shoulder region 12/16/2013 0 08/24/2016 Essential hypertension, benign 12/03/2013 0 11/19/2014 Overview: Home RX; Nortvasc, ACEi A/P: NTg gtt to keep MAPS 65-75. Wean off. Hydralazine prn. Start BB when off Epi. Pain in joint, lower leg 04/16/2013 017 Degenerative tear of medial meniscus 04/16/2013 11/13/2020 Allergic rhinitis 06/29/2012 04/21/2022 Anxiety 07/08/2011 11/13/2020 Overview: Home Rx; Prozac. A/p Restarted Prozac. Esophagitis, unspecified 04/23/2009 017 Acute gastritis without mention of hemorrhage 08/24/2016 Trochanteric bursitis 03/05/2009 11/12/2014 Nontoxic uninodular goiter 01/16/200902/24 Overview: 08/13/19 US thyroid right mid-pole thyroid solid nodule 9 x 7 x 4 mm stable since 2016 Last Assessment & Plan: Assessment: under surveillance Nonallopathic lesion of sacr al region, not elsewhere classified 01/02/2009 11/13/2020 Osteoarthrosis, unspecified whether generalized or localized, unspecified site 11/12/2008 11/13/2020 ABSCESS GROIN 07/23/2008 08/23/2016 Obesity, unspecified 07/15/2008 09/16/2020 Pain in joint, pelvic region and thigh 9 08/24/2016 Aneurysm of thoracic aorta 12/05/200704/21 Overview: 05/26/2020 echocardiogram LV size and systolic function normal, ejection fraction 62%, grade 1 ventricular diastolic dysfunction. RV size and RV SF normal, aorta borderline dilated 3.8 cm: Status post aortic valve repair with no regurgitation, peak gradient 33 mmHg, mean gradient 19 mmHg . 07/23/2019 nuclear stress: No inducible ischemia or evidence of scarred myocardium, LV size normal LV SF normal. Ejection fraction 70% 11/17/2014 Mini-BAV repair, Ascending aortic replacement Last Assessment & Plan: Assessment: s/p ascending aorta repair in 2014. 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 Assessment: c/o dry eye Plan: ordered refresh eye drops Last Assessment & Plan: Assessment: prosthetic left eye, eye gtts as needed Generalized anxiety disorder Overview: Anxiety, Generalized Unspecified asthma(493.90) 09/02 Asthma 08/24/2016 documented as of this encounter (statuses as of 04/21/2022) [facility] History of Past illness Narrative* Problem Noted Date Resolved Date Depressive disorder 04/21/2022 04/21/2022 Postoperative pneumonia 04/21/2022 04/21/20 22 Viral infection 04/21/2022 04/21/2022 Dependence on continuous pos itive airway pressure ventilation 03/12/2022 04/21/2022 Dependence on other enabling machines and device s 03/12/2022 04/21/2022 Other specified postprocedural states 03/12/2022 04/21/2022 Personal history of pulmonary embolism 04/21/2022 Rheumatoid arthritis, unspecified 03/12/2022 04/21/2022 Ureteric colic 12/20/2021 04/21/2022 Unspecified abdominal pain 12/08/202104/21 Dyspnea, unspecified 04/05/2021 04/21/2022 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 02/17/2017 12/05/2019 Overview: Added automatically from request for surgery [id number] Acute pain of left knee 12/26/2016 11/14/19 21 Chronic right shoulder pain 12/26/2016 04/0 12/2020 Gross hematuria 11/24/2016 11/13/2020 Malignant neoplasm of kidney excluding renal pel vis 10/21/2016 02/27/2017 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, without long-term current use of insulin 09/30/2016 09/30/2016 Neuropathy 09/30/2016 11/13/2020 Last Assessment & Plan: Assessment: stable on rx Asthma with COPD with exacerbation 08/24/2016 02/27/2017 Counseling and coordination of care 12/15/2014 08/24/2016 SUMMARY 11/21/2014 08/24/2016 Overview: Indication for hospital admission/procedure: Aortic aneurysm LVEF: 65% LVH RVF: Normal Important/Relevant PMH/PSH: BAV, Congenital anomaly of aorta, SIVAKUMAR, Asthma, HTN, HPL, DM, anxiety Preoperative Hospital Course Procedure/Surgeries: 11/17/2014 Mini-BAV repair, Ascending aortic replacement Airway Difficulty: No OR Course: Coagulopathy/bleeding requiring correction with 20u cryo, 8u FFP, 4u plts, 3uprbcs and 2 pump runs for repair of aortic cannulation site Pacing wires: out Postoperative Course/General Impression: S/p AVr/Asc aorta replacement. Plan to wean o2, pep, oob, increase diuresis, cont BB, pain and glucose control. Issues to communicate at signout: CT removed CPAP at night echo done CTA done PT rec acute rehab Needs much encouragement wires out 11/23 d/c to acute rehab today Discharge planning 11/21/2014 05/03/2016 Overview: Pt from [place], [place]. PT rec acute rehab; CM working on placement. Leaving for [facility] in-pt rehab today Hypertension 11/20/2014 02/27/2017 Overview: History: pre op on monopril, norv, Assessment: normotensive currently Plan: Cont BB , cont lasix Atelectasis 11/18/2014 11/19/2014 Overview: Bilateral on CXR. A/P: PEP, EZPAP OOBTC. Volume overload 11/18/2014 08/24/2016 Overview: History: post op Assessment: wt up 5 kg from pre op Plan: cont diuresis On mechanically assisted ventilation 11/17/2014 11/19/2014 Overview: Grade 1 airway. WTE when awake and stable. Extubated on DOS. CPAP at night PEP. Cardiac insufficiency following cardiac surgery 11/17/2014 11/20/2014 Overview: Low CI. CVP low. A/p Epi gtt off. Start BB. Pre-op testing 11/14/2014 08/23/2016 Overview: Images from the original note were not included. [facility] Surgeon: Modesto Cifuentes M.D. Informed Consent Completed: Yes STS Score: unsupported CAD: No Is intended procedure a CABG: No - is a beta hue ordered? No - reason: not indicated H & P completed: Yes 10/28/14 PA/LAT: Completed CT: Completed MRI: N/A LE US: N/A Cath: Yes - reviewed: Yes Echo:Completed EKG: Completed EF %: 65 PI's: N/A Carotid: N/A Mapping: N/A Dental: Completed PFT's: N/A No results for input(s): WBC, HB, HCT, PLT, INR, CREAT in the last 72 hours. UA: Normal HCG:N/A ABO/ABO Confirmed: Yes Blood ordered: No SA Swab: Yes - results: Negative Last Dose of Anticoagulation: OTC 11/12/14 Op Note: N/A Pacemaker Check: N/A Consults: none DM: Yes, A1c: 6.6% Cardiac Surgical prep: N/A SIGNATURE: JERSON Tian CHECKED BY: [email or web address] DATE of SERVICE: 11/14/2014 TIME of SERVICE: 10:59 AM discharge planning 11/10/2014 11/12/2014 Overview: 64yo male without any concerns presently Preop testing 11/10/2014 11/12/2014 Overview: Images from the original note were not included. [facility] Surgeon: Modesto Cifuentes M.D. Informed Consent Completed: pending STS Score: unsupported CAD: Yes - CAD on Problem List: Yes Is intended procedure a CABG: No - is a beta hue ordered? No - reason: not indicated H & P completed: Yes PA/LAT: Completed CT: Completed MRI: N/A LE US: N/A Cath: Yes - reviewed: Yes Echo:Completed EKG: Completed EF %: 65 PI's: Completed Carotid: N/A Mapping: N/A Dental: Pending PFT's: Completed No results for input(s): WBC, HB, HCT, PLT, INR, CREAT in the last 72 hours. UA: Normal HCG:N/A ABO/ABO Confirmed: Yes Blood ordered: No SA Swab: Yes - results: Pending Last Dose of Anticoagulation: vit basa LD 11/03 Op Note: N/A Pacemaker Check: N/A Consults: none DM: No Cardiac Surgical prep: N/A SIGNATURE: Kate Smith RN CHECKED BY: DATE of SERVICE: 11/10/2014 TIME of SERVICE: 10:05 AM Right rotator cuff tear 12/31/2013 08/25/19 17 Pain in joint, shoulder region 12/16/2013 0 08/24/2016 Essential hypertension, benign 12/03/2013 0 11/19/2014 Overview: Home RX; Nortvasc, ACEi A/P: NTg gtt to keep MAPS 65-75. Wean off. Hydralazine prn. Start BB when off Epi. Pain in joint, lower leg 04/16/2013 017 Degenerative tear of medial meniscus 04/16/2013 11/13/2020 Allergic rhinitis 06/29/2012 04/21/2022 Anxiety 07/08/2011 11/13/2020 Overview: Home Rx; Prozac. A/p Restarted Prozac. Esophagitis, unspecified 04/23/2009 017 Acute gastritis without mention of hemorrhage 08/24/2016 Trochanteric bursitis 03/05/2009 11/12/2014 Nontoxic uninodular goiter 01/16/200902/24 Overview: 08/13/19 US thyroid right mid-pole thyroid solid nodule 9 x 7 x 4 mm stable since 2017 Last Assessment & Plan: Assessment: under surveillance Nonallopathic lesion of sacr al region, not elsewhere classified 01/02/2009 11/13/2020 Osteoarthrosis, unspecified whether generalized or localized, unspecified site 11/12/2008 11/13/2020 ABSCESS GROIN 07/23/2008 08/23/2016 Obesity, unspecified 07/15/2008 09/16/2020 Pain in joint, pelvic region and thigh 9 08/24/2016 Aneurysm of thoracic aorta 12/05/200704/21 Overview: 05/26/2020 echocardiogram LV size and systolic function normal, ejection fraction 62%, grade 1 ventricular diastolic dysfunction. RV size and RV SF normal, aorta borderline dilated 3.8 cm: Status post aortic valve repair with no regurgitation, peak gradient 33 mmHg, mean gradient 19 mmHg . 07/23/2019 nuclear stress: No inducible ischemia or evidence of scarred myocardium, LV size normal LV SF normal. Ejection fraction 70% 11/17/2014 Mini-BAV repair, Ascending aortic replacement Last Assessment & Plan: Assessment: s/p ascending aorta repair in 2014. 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 Assessment: c/o dry eye Plan: ordered refresh eye drops Last Assessment & Plan: Assessment: prosthetic left eye, eye gtts as needed Generalized anxiety disorder Overview: Anxiety, Generalized Unspecified asthma(493.90) 09/02 Asthma 08/24/2016 documented as of this encounter (statuses as of 04/22/2022) [facility] History of Past illness Narrative* Problem Noted Date Resolved Date Depressive disorder 04/21/2022 04/21/2022 Postoperative pneumonia 04/21/2022 04/21/20 22 Viral infection 04/21/2022 04/21/2022 Lumbosacral spondylosis with radiculopathy 03/2804/27/2022 Dependence on continuous pos itive airway pressure ventilation 03/12/2022 04/21/2022 Dependence on other enabling machines and device s 03/12/2022 04/21/2022 Other specified postprocedural states 03/12/2022 04/21/2022 Personal history of pulmonary embolism 04/21/2022 Rheumatoid arthritis, unspecified 03/12/2022 04/21/2022 Ureteric colic 12/20/2021 04/21/2022 Unspecified abdominal pain 12/08/202104/21 Dyspnea, unspecified 04/05/2021 04/21/2022 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 02/17/2017 12/05/2019 Overview: Added automatically from request for surgery [id number] Acute pain of left knee 12/26/2016 11/14/19 Chronic right shoulder pain 12/26/2016 04/0 12/2020 Gross hematuria 11/24/2016 11/13/2020 Malignant neoplasm of kidney excluding renal pel vis 10/21/2016 02/27/2017 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, without long-term current use of insulin 09/30/2016 09/30/2016 Neuropathy 09/30/2016 11/13/2020 Last Assessment & Plan: Assessment: stable on rx Asthma with COPD with exacerbation 08/24/2016 02/27/2017 Counseling and coordination of care 12/15/2014 08/24/2016 SUMMARY 11/21/2014 08/24/2016 Overview: Indication for hospital admission/procedure: Aortic aneurysm LVEF: 65% LVH RVF: Normal Important/Relevant PMH/PSH: BAV, Congenital anomaly of aorta, SIVAKUMAR, Asthma, HTN, HPL, DM, anxiety Preoperative Hospital Course Procedure/Surgeries: 11/17/2014 Mini-BAV repair, Ascending aortic replacement Airway Difficulty: No OR Course: Coagulopathy/bleeding requiring correction with 20u cryo, 8u FFP, 4u plts, 3uprbcs and 2 pump runs for repair of aortic cannulation site Pacing wires: out Postoperative Course/General Impression: S/p AVr/Asc aorta replacement. Plan to wean o2, pep, oob, increase diuresis, cont BB, pain and glucose control. Issues to communicate at signout: CT removed CPAP at night echo done CTA done PT rec acute rehab Needs much encouragement wires out 11/23 d/c to acute rehab today Discharge planning 11/21/2014 05/03/2016 Overview: Pt from [place], [place]. PT rec acute rehab; CM working on placement. Leaving for [facility] in-pt rehab today Hypertension 11/20/2014 02/27/2017 Overview: History: pre op on monopril, norv, Assessment: normotensive currently Plan: Cont BB , cont lasix Atelectasis 11/18/2014 11/19/2014 Overview: Bilateral on CXR. A/P: PEP, EZPAP OOBTC. Volume overload 11/18/2014 08/24/2016 Overview: History: post op Assessment: wt up 5 kg from pre op Plan: cont diuresis On mechanically assisted ventilation 11/17/2014 11/19/2014 Overview: Grade 1 airway. WTE when awake and stable. Extubated on DOS. CPAP at night PEP. Cardiac insufficiency following cardiac surgery 11/17/2014 11/20/2014 Overview: Low CI. CVP low. A/p Epi gtt off. Start BB. Pre-op testing 11/14/2014 08/23/2016 Overview: Images from the original note were not included. [facility] Surgeon: Modesto Cifuentes M.D. Informed Consent Completed: Yes STS Score: unsupported CAD: No Is intended procedure a CABG: No - is a beta hue ordered? No - reason: not indicated H & P completed: Yes 10/28/14 PA/LAT: Completed CT: Completed MRI: N/A LE US: N/A Cath: Yes - reviewed: Yes Echo:Completed EKG: Completed EF %: 65 PI's: N/A Carotid: N/A Mapping: N/A Dental: Completed PFT's: N/A No results for input(s): WBC, HB, HCT, PLT, INR, CREAT in the last 72 hours. UA: Normal HCG:N/A ABO/ABO Confirmed: Yes Blood ordered: No SA Swab: Yes - results: Negative Last Dose of Anticoagulation: OTC 11/12/14 Op Note: N/A Pacemaker Check: N/A Consults: none DM: Yes, A1c: 6.6% Cardiac Surgical prep: N/A SIGNATURE: JERSON Tian CHECKED BY: [email or web address] DATE of SERVICE: 11/14/2014 TIME of SERVICE: 10:59 AM discharge planning 11/10/2014 11/12/2014 Overview: 64yo male without any concerns presently Preop testing 11/10/2014 11/12/2014 Overview: Images from the original note were not included. [facility] Surgeon: Modesto Cifuentes M.D. Informed Consent Completed: pending STS Score: unsupported CAD: Yes - CAD on Problem List: Yes Is intended procedure a CABG: No - is a beta hue ordered? No - reason: not indicated H & P completed: Yes PA/LAT: Completed CT: Completed MRI: N/A LE US: N/A Cath: Yes - reviewed: Yes Echo:Completed EKG: Completed EF %: 65 PI's: Completed Carotid: N/A Mapping: N/A Dental: Pending PFT's: Completed No results for input(s): WBC, HB, HCT, PLT, INR, CREAT in the last 72 hours. UA: Normal HCG:N/A ABO/ABO Confirmed: Yes Blood ordered: No SA Swab: Yes - results: Pending Last Dose of Anticoagulation: vit basa LD 11/03 Op Note: N/A Pacemaker Check: N/A Consults: none DM: No Cardiac Surgical prep: N/A SIGNATURE: Kate Smith RN CHECKED BY: DATE of SERVICE: 11/10/2014 TIME of SERVICE: 10:05 AM Right rotator cuff tear 12/31/2013 08/25/19 17 Pain in joint, shoulder region 12/16/2013 0 08/24/2016 Essential hypertension, benign 12/03/2013 0 11/19/2014 Overview: Home RX; Nortvasc, ACEi A/P: NTg gtt to keep MAPS 65-75. Wean off. Hydralazine prn. Start BB when off Epi. Pain in joint, lower leg 04/16/2013 017 Degenerative tear of medial meniscus 04/16/2013 11/13/2020 Allergic rhinitis 06/29/2012 04/21/2022 Anxiety 07/08/2011 11/13/2020 Overview: Home Rx; Prozac. A/p Restarted Prozac. Esophagitis, unspecified 04/23/2009 017 Acute gastritis without mention of hemorrhage 08/24/2016 Trochanteric bursitis 03/05/2009 11/12/2014 Nontoxic uninodular goiter 01/16/200902/24 Overview: 08/13/19 thyroid right mid-pole thyroid solid nodule 9 x 7 x 4 mm stable since 2016 Last Assessment & Plan: Assessment: under surveillance Nonallopathic lesion of sacr al region, not elsewhere classified 01/02/2009 11/13/2020 Osteoarthrosis, unspecified whether generalized or localized, unspecified site 11/12/2008 11/13/2020 ABSCESS GROIN 07/23/2008 08/23/2016 Obesity, unspecified 07/15/2008 09/16/2020 Pain in joint, pelvic region and thigh 9 08/24/2016 Aneurysm of thoracic aorta 12/05/200704/21 Overview: 05/26/2020 echocardiogram LV size and systolic function normal, ejection fraction 62%, grade 1 ventricular diastolic dysfunction. RV size and RV SF normal, aorta borderline dilated 3.8 cm: Status post aortic valve repair with no regurgitation, peak gradient 33 mmHg, mean gradient 19 mmHg . 07/23/2019 nuclear stress: No inducible ischemia or evidence of scarred myocardium, LV size normal LV SF normal. Ejection fraction 70% 11/17/2014 Mini-BAV repair, Ascending aortic replacement Last Assessment & Plan: Assessment: s/p ascending aorta repair in 2014. 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 Assessment: c/o dry eye Plan: ordered refresh eye drops Last Assessment & Plan: Assessment: prosthetic left eye, eye gtts as needed Generalized anxiety disorder Overview: Anxiety, Generalized Unspecified asthma(493.90) 09/02 Asthma 08/24/2016 documented as of this encounter (statuses as of 04/27/2022) [facility]11-10-2022 History of Past illness Narrative* Problem Noted Date Resolved Date Depressive disorder 04/21/2022 04/21/2022 Postoperative pneumonia 04/21/2022 04/21/20 22 Viral infection 04/21/2022 04/21/2022 Lumbosacral spondylosis with radiculopathy 03/2804/27/2022 Dependence on continuous pos itive airway pressure ventilation 03/12/2022 04/21/2022 Dependence on other enabling machines and device s 03/12/2022 04/21/2022 Other specified postprocedural states 03/12/2022 04/21/2022 Personal history of pulmonary embolism 04/21/2022 Rheumatoid arthritis, unspecified 03/12/2022 04/21/2022 Ureteric colic 12/20/2021 04/21/2022 Unspecified abdominal pain 12/08/202104/21 Dyspnea, unspecified 04/05/2021 04/21/2022 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 02/17/2017 12/05/2019 Overview: Added automatically from request for surgery [id number] Acute pain of left knee 12/26/2016 11/14/19 Chronic right shoulder pain 12/26/2016 0412/2020 Gross hematuria 11/24/2016 11/13/2020 Malignant neoplasm of kidney excluding renal pel vis 10/21/2016 02/27/2017 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, without long-term current use of insulin 09/30/2016 09/30/2016 Neuropathy 09/30/2016 11/13/2020 Last Assessment & Plan: Assessment: stable on rx Asthma with COPD with exacerbation 08/24/2016 02/27/2017 Counseling and coordination of care 12/15/2014 08/24/2016 SUMMARY 11/21/2014 08/24/2016 Overview: Indication for hospital admission/procedure: Aortic aneurysm LVEF: 65% LVH RVF: Normal Important/Relevant PMH/PSH: BAV, Congenital anomaly of aorta, SIVAKUMAR, Asthma, HTN, HPL, DM, anxiety Preoperative Hospital Course Procedure/Surgeries: 11/17/2014 Mini-BAV repair, Ascending aortic replacement Airway Difficulty: No OR Course: Coagulopathy/bleeding requiring correction with 20u cryo, 8u FFP, 4u plts, 3uprbcs and 2 pump runs for repair of aortic cannulation site Pacing wires: out Postoperative Course/General Impression: S/p AVr/Asc aorta replacement. Plan to wean o2, pep, oob, increase diuresis, cont BB, pain and glucose control. Issues to communicate at signout: CT removed CPAP at night echo done CTA done PT rec acute rehab Needs much encouragement wires out 11/23 d/c to acute rehab today Discharge planning 11/21/2014 05/03/2016 Overview: Pt from [place], [place]. PT rec acute rehab; CM working on placement. Leaving for [facility] in-[facility] rehab today Hypertension 11/20/2014 02/27/2017 Overview: History: pre op on monopril, norv, Assessment: normotensive currently Plan: Cont BB , cont lasix Atelectasis 11/18/2014 11/19/2014 Overview: Bilateral on CXR. A/P: PEP, EZPAP OOBTC. Volume overload 11/18/2014 08/24/2016 Overview: History: post op Assessment: wt up 5 kg from pre op Plan: cont diuresis On mechanically assisted ventilation 11/17/2014 11/19/2014 Overview: Grade 1 airway. WTE when awake and stable. Extubated on DOS. CPAP at night PEP. Cardiac insufficiency following cardiac surgery 11/17/2014 11/20/2014 Overview: Low CI. CVP low. A/p Epi gtt off. Start BB. Pre-op testing 11/14/2014 08/23/2016 Overview: Images from the original note were not included. [facility] Surgeon: Modesto Cifuentes M.D. Informed Consent Completed: Yes STS Score: unsupported CAD: No Is intended procedure a CABG: No - is a beta hue ordered? No - reason: not indicated H & P completed: Yes 10/28/14 PA/LAT: Completed CT: Completed MRI: N/A LE US: N/A Cath: Yes - reviewed: Yes Echo:Completed EKG: Completed EF %: 65 PI's: N/A Carotid: N/A Mapping: N/A Dental: Completed PFT's: N/A No results for input(s): WBC, HB, HCT, PLT, INR, CREAT in the last 72 hours. UA: Normal HCG:N/A ABO/ABO Confirmed: Yes Blood ordered: No SA Swab: Yes - results: Negative Last Dose of Anticoagulation: OTC 11/12/14 Op Note: N/A Pacemaker Check: N/A Consults: none DM: Yes, A1c: 6.6% Cardiac Surgical prep: N/A SIGNATURE: JERSON Tian CHECKED BY: [email or web address] DATE of SERVICE: 11/14/2014 TIME of SERVICE: 10:59 AM discharge planning 11/10/2014 11/12/2014 Overview: 64yo male without any concerns presently Preop testing 11/10/2014 11/12/2014 Overview: Images from the original note were not included. [facility] PRE-OP CHECKLIST Surgeon: Modesto Cifuentes M.D. Informed Consent Completed: pending STS Score: unsupported CAD: Yes - CAD on Problem List: Yes Is intended procedure a CABG: No - is a beta hue ordered? No - reason: not indicated H & P completed: Yes PA/LAT: Completed CT: Completed MRI: N/A LE US: N/A Cath: Yes - reviewed: Yes Echo:Completed EKG: Completed EF %: 65 PI's: Completed Carotid: N/A Mapping: N/A Dental: Pending PFT's: Completed No results for input(s): WBC, HB, HCT, PLT, INR, CREAT in the last 72 hours. UA: Normal HCG:N/A ABO/ABO Confirmed: Yes Blood ordered: No SA Swab: Yes - results: Pending Last Dose of Anticoagulation: vit basa LD 11/03 Op Note: N/A Pacemaker Check: N/A Consults: none DM: No Cardiac Surgical prep: N/A SIGNATURE: Kate Smith RN CHECKED BY: DATE of SERVICE: 11/10/2014 TIME of SERVICE: 10:05 AM Right rotator cuff tear 12/31/2013 08/25/19 17 Pain in joint, shoulder region 12/16/2013 0 08/24/2016 Essential hypertension, benign 12/03/2013 0 11/19/2014 Overview: Home RX; Nortvasc, ACEi A/P: NTg gtt to keep MAPS 65-75. Wean off. Hydralazine prn. Start BB when off Epi. Pain in joint, lower leg 04/16/2013 017 Degenerative tear of medial meniscus 04/16/2013 11/13/2020 Allergic rhinitis 06/29/2012 04/21/2022 Anxiety 07/08/2011 11/13/2020 Overview: Home Rx; Prozac. A/p Restarted Prozac. Esophagitis, unspecified 04/23/2009 017 Acute gastritis without mention of hemorrhage 08/24/2016 Trochanteric bursitis 03/05/2009 11/12/2014 Nontoxic uninodular goiter 01/16/200902/24 Overview: 08/13/19 thyroid right mid-pole thyroid solid nodule 9 x 7 x 4 mm stable since 2016 Last Assessment & Plan: Assessment: under surveillance Nonallopathic lesion of sacr al region, not elsewhere classified 01/02/2009 11/13/2020 Osteoarthrosis, unspecified whether generalized or localized, unspecified site 11/12/2008 11/13/2020 ABSCESS GROIN 07/23/2008 08/23/2016 Obesity, unspecified 07/15/2008 09/16/2020 Pain in joint, pelvic region and thigh 9 08/24/2016 Aneurysm of thoracic aorta 12/05/200704/21 Overview: 05/26/2020 echocardiogram LV size and systolic function normal, ejection fraction 62%, grade 1 ventricular diastolic dysfunction. RV size and RV SF normal, aorta borderline dilated 3.8 cm: Status post aortic valve repair with no regurgitation, peak gradient 33 mmHg, mean gradient 19 mmHg . 07/23/2019 nuclear stress: No inducible ischemia or evidence of scarred myocardium, LV size normal LV SF normal. Ejection fraction 70% 11/17/2014 Mini-BAV repair, Ascending aortic replacement Last Assessment & Plan: Assessment: s/p ascending aorta repair in 2014. 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 Assessment: c/o dry eye Plan: ordered refresh eye drops Last Assessment & Plan: Assessment: prosthetic left eye, eye gtts as needed Generalized anxiety disorder Overview: Anxiety, Generalized Unspecified asthma(493.90) 09/02 Asthma 08/24/2016 documented as of this encounter (statuses as of 04/28/2022) [facility]11-10-2022 History of Past illness Narrative* Problem Noted Date Resolved Date Depressive disorder 04/21/2022 04/21/2022 Postoperative pneumonia 04/21/2022 04/21/20 Viral infection 04/21/2022 04/21/2022 Lumbosacral spondylosis with radiculopathy 03/2804/27/2022 Dependence on continuous pos itive airway pressure ventilation 03/12/2022 04/21/2022 Dependence on other enabling machines and device s 03/12/2022 04/21/2022 Other specified postprocedural states 03/12/2022 04/21/2022 Personal history of pulmonary embolism 2 04/21/2022 Rheumatoid arthritis, unspecified 03/12/2022 04/21/2022 Ureteric colic 12/20/2021 04/21/2022 Unspecified abdominal pain 12/08/202104/21 Dyspnea, unspecified 04/05/2021 04/21/2022 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 02/17/2017 12/05/2019 Overview: Added automatically from request for surgery [id number] Acute pain of left knee 12/26/2016 11/14/19 Chronic right shoulder pain 12/26/2016 04/0 12/2020 Gross hematuria 11/24/2016 11/13/2020 Malignant neoplasm of kidney excluding renal pel vis 10/21/2016 02/27/2017 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, without long-term current use of insulin 09/30/2016 09/30/2016 Neuropathy 09/30/2016 11/13/2020 Last Assessment & Plan: Assessment: stable on rx Asthma with COPD with exacerbation 08/24/2016 02/27/2017 Counseling and coordination of care 12/15/2014 08/24/2016 SUMMARY 11/21/2014 08/24/2016 Overview: Indication for hospital admission/procedure: Aortic aneurysm LVEF: 65% LVH RVF: Normal Important/Relevant PMH/PSH: BAV, Congenital anomaly of aorta, SIVAKUMAR, Asthma, HTN, HPL, DM, anxiety Preoperative Hospital Course Procedure/Surgeries: 11/17/2014 Mini-BAV repair, Ascending aortic replacement Airway Difficulty: No OR Course: Coagulopathy/bleeding requiring correction with 20u cryo, 8u FFP, 4u plts, 3uprbcs and 2 pump runs for repair of aortic cannulation site Pacing wires: out Postoperative Course/General Impression: S/p AVr/Asc aorta replacement. Plan to wean o2, pep, oob, increase diuresis, cont BB, pain and glucose control. Issues to communicate at signout: CT removed CPAP at night echo done CTA done PT rec acute rehab Needs much encouragement wires out 11/23 d/c to acute rehab today Discharge planning 11/21/2014 05/03/2016 Overview: Pt from [place], [place]. PT rec acute rehab; CM working on placement. Leaving for [facility] in-pt rehab today Hypertension 11/20/2014 02/27/2017 Overview: History: pre op on monopril, norv, Assessment: normotensive currently Plan: Cont BB , cont lasix Atelectasis 11/18/2014 11/19/2014 Overview: Bilateral on CXR. A/P: PEP, EZPAP OOBTC. Volume overload 11/18/2014 08/24/2016 Overview: History: post op Assessment: wt up 5 kg from pre op Plan: cont diuresis On mechanically assisted ventilation 11/17/2014 11/19/2014 Overview: Grade 1 airway. WTE when awake and stable. Extubated on DOS. CPAP at night PEP. Cardiac insufficiency following cardiac surgery 11/17/2014 11/20/2014 Overview: Low CI. CVP low. A/p Epi gtt off. Start BB. Pre-op testing 11/14/2014 08/23/2016 Overview: Images from the original note were not included. [facility] Surgeon: Modesto Cifuentes M.D. Informed Consent Completed: Yes STS Score: unsupported CAD: No Is intended procedure a CABG: No - is a beta hue ordered? No - reason: not indicated H & P completed: Yes 10/28/14 PA/LAT: Completed CT: Completed MRI: N/A LE US: N/A Cath: Yes - reviewed: Yes Echo:Completed EKG: Completed EF %: 65 PI's: N/A Carotid: N/A Mapping: N/A Dental: Completed PFT's: N/A No results for input(s): WBC, HB, HCT, PLT, INR, CREAT in the last 72 hours. UA: Normal HCG:N/A ABO/ABO Confirmed: Yes Blood ordered: No SA Swab: Yes - results: Negative Last Dose of Anticoagulation: OTC 11/12/14 Op Note: N/A Pacemaker Check: N/A Consults: none DM: Yes, A1c: 6.6% Cardiac Surgical prep: N/A SIGNATURE: JERSON Tian CHECKED BY: [email or web address] DATE of SERVICE: 11/14/2014 TIME of SERVICE: 10:59 AM discharge planning 11/10/2014 11/12/2014 Overview: 64yo male without any concerns presently Preop testing 11/10/2014 11/12/2014 Overview: Images from the original note were not included. [facility] Surgeon: Modesto Cifuentes M.D. Informed Consent Completed: pending STS Score: unsupported CAD: Yes - CAD on Problem List: Yes Is intended procedure a CABG: No - is a beta hue ordered? No - reason: not indicated H & P completed: Yes PA/LAT: Completed CT: Completed MRI: N/A LE US: N/A Cath: Yes - reviewed: Yes Echo:Completed EKG: Completed EF %: 65 PI's: Completed Carotid: N/A Mapping: N/A Dental: Pending PFT's: Completed No results for input(s): WBC, HB, HCT, PLT, INR, CREAT in the last 72 hours. UA: Normal HCG:N/A ABO/ABO Confirmed: Yes Blood ordered: No SA Swab: Yes - results: Pending Last Dose of Anticoagulation: vit basa LD 11/03 Op Note: N/A Pacemaker Check: N/A Consults: none DM: No Cardiac Surgical prep: N/A SIGNATURE: Kate Smith RN CHECKED BY: DATE of SERVICE: 11/10/2014 TIME of SERVICE: 10:05 AM Right rotator cuff tear 12/31/2013 08/25/19 17 Pain in joint, shoulder region 12/16/2013 0 08/24/2016 Essential hypertension, benign 12/03/2013 0 11/19/2014 Overview: Home RX; Nortvasc, ACEi A/P: NTg gtt to keep MAPS 65-75. Wean off. Hydralazine prn. Start BB when off Epi. Pain in joint, lower leg 04/16/2013 017 Degenerative tear of medial meniscus 04/16/2013 11/13/2020 Allergic rhinitis 06/29/2012 04/21/2022 Anxiety 07/08/2011 11/13/2020 Overview: Home Rx; Prozac. A/p Restarted Prozac. Esophagitis, unspecified 04/23/2009 017 Acute gastritis without mention of hemorrhage 08/24/2016 Trochanteric bursitis 03/05/2009 11/12/2014 Nontoxic uninodular goiter 01/16/200902/24 Overview: 08/13/19 US thyroid right mid-pole thyroid solid nodule 9 x 7 x 4 mm stable since 2016 Last Assessment & Plan: Assessment: under surveillance Nonallopathic lesion of sacr al region, not elsewhere classified 01/02/2009 11/13/2020 Osteoarthrosis, unspecified whether generalized or localized, unspecified site 11/12/2008 11/13/2020 ABSCESS GROIN 07/23/2008 08/23/2016 Obesity, unspecified 07/15/2008 09/16/2020 Pain in joint, pelvic region and thigh 9 08/24/2016 Aneurysm of thoracic aorta 12/05/200704/21 Overview: 05/26/2020 echocardiogram LV size and systolic function normal, ejection fraction 62%, grade 1 ventricular diastolic dysfunction. RV size and RV SF normal, aorta borderline dilated 3.8 cm: Status post aortic valve repair with no regurgitation, peak gradient 33 mmHg, mean gradient 19 mmHg . 07/23/2019 nuclear stress: No inducible ischemia or evidence of scarred myocardium, LV size normal LV SF normal. Ejection fraction 70% 11/17/2014 Mini-BAV repair, Ascending aortic replacement Last Assessment & Plan: Assessment: s/p ascending aorta repair in 2014. 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 Assessment: c/o dry eye Plan: ordered refresh eye drops Last Assessment & Plan: Assessment: prosthetic left eye, eye gtts as needed Generalized anxiety disorder Overview: Anxiety, Generalized Unspecified asthma(493.90) 09/02 Asthma 08/24/2016 documented as of this encounter (statuses as of 04/28/2022) [facility] History of Past illness Narrative* Problem Noted Date Resolved Date Depressive disorder 04/21/2022 04/21/2022 Postoperative pneumonia 04/21/2022 04/21/20 Viral infection 04/21/2022 04/21/2022 Lumbosacral spondylosis with radiculopathy 03/2804/27/2022 Dependence on continuous pos itive airway pressure ventilation 03/12/2022 04/21/2022 Dependence on other enabling machines and device s 03/12/2022 04/21/2022 Other specified postprocedural states 03/12/2022 04/21/2022 Personal history of pulmonary embolism 04/21/2022 Rheumatoid arthritis, unspecified 03/12/2022 04/21/2022 Ureteric colic 12/20/2021 04/21/2022 Unspecified abdominal pain 12/08/202104/21 Dyspnea, unspecified 04/05/2021 04/21/2022 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 02/17/2017 12/05/2019 Overview: Added automatically from request for surgery [id number] Acute pain of left knee 12/26/2016 11/14/19 Chronic right shoulder pain 12/26/2016 04/12/2020 Gross hematuria 11/24/2016 11/13/2020 Malignant neoplasm of kidney excluding renal pel vis 10/21/2016 02/27/2017 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, without long-term current use of insulin 09/30/2016 09/30/2016 Neuropathy 09/30/2016 11/13/2020 Last Assessment & Plan: Assessment: stable on rx Asthma with COPD with exacerbation 08/24/2016 02/27/2017 Counseling and coordination of care 12/15/2014 08/24/2016 SUMMARY 11/21/2014 08/24/2016 Overview: Indication for hospital admission/procedure: Aortic aneurysm LVEF: 65% LVH RVF: Normal Important/Relevant PMH/PSH: BAV, Congenital anomaly of aorta, SIVAKUMAR, Asthma, HTN, HPL, DM, anxiety Preoperative Hospital Course Procedure/Surgeries: 11/17/2014 Mini-BAV repair, Ascending aortic replacement Airway Difficulty: No OR Course: Coagulopathy/bleeding requiring correction with 20u cryo, 8u FFP, 4u plts, 3uprbcs and 2 pump runs for repair of aortic cannulation site Pacing wires: out Postoperative Course/General Impression: S/p AVr/Asc aorta replacement. Plan to wean o2, pep, oob, increase diuresis, cont BB, pain and glucose control. Issues to communicate at signout: CT removed CPAP at night echo done CTA done PT rec acute rehab Needs much encouragement wires out 11/23 d/c to acute rehab today Discharge planning 11/21/2014 05/03/2016 Overview: Pt from [place], [place]. PT rec acute rehab; CM working on placement. Leaving for [facility] in-pt rehab today Hypertension 11/20/2014 02/27/2017 Overview: History: pre op on monopril, norv, Assessment: normotensive currently Plan: Cont BB , cont lasix Atelectasis 11/18/2014 11/19/2014 Overview: Bilateral on CXR. A/P: PEP, EZPAP OOBTC. Volume overload 11/18/2014 08/24/2016 Overview: History: post op Assessment: wt up 5 kg from pre op Plan: cont diuresis On mechanically assisted ventilation 11/17/2014 11/19/2014 Overview: Grade 1 airway. WTE when awake and stable. Extubated on DOS. CPAP at night PEP. Cardiac insufficiency following cardiac surgery 11/17/2014 11/20/2014 Overview: Low CI. CVP low. A/p Epi gtt off. Start BB. Pre-op testing 11/14/2014 08/23/2016 Overview: Images from the original note were not included. [facility] Surgeon: Modesto Cifuentes M.D. Informed Consent Completed: Yes STS Score: unsupported CAD: No Is intended procedure a CABG: No - is a beta hue ordered? No - reason: not indicated H & P completed: Yes 10/28/14 PA/LAT: Completed CT: Completed MRI: N/A LE US: N/A Cath: Yes - reviewed: Yes Echo:Completed EKG: Completed EF %: 65 PI's: N/A Carotid: N/A Mapping: N/A Dental: Completed PFT's: N/A No results for input(s): WBC, HB, HCT, PLT, INR, CREAT in the last 72 hours. UA: Normal HCG:N/A ABO/ABO Confirmed: Yes Blood ordered: No SA Swab: Yes - results: Negative Last Dose of Anticoagulation: OTC 11/12/14 Op Note: N/A Pacemaker Check: N/A Consults: none DM: Yes, A1c: 6.6% Cardiac Surgical prep: N/A SIGNATURE: JERSON Tian CHECKED BY: [email or web address] DATE of SERVICE: 11/14/2014 TIME of SERVICE: 10:59 AM discharge planning 11/10/2014 11/12/2014 Overview: 64yo male without any concerns presently Preop testing 11/10/2014 11/12/2014 Overview: Images from the original note were not included. [facility] Surgeon: Modesto Cifuentes M.D. Informed Consent Completed: pending STS Score: unsupported CAD: Yes - CAD on Problem List: Yes Is intended procedure a CABG: No - is a beta hue ordered? No - reason: not indicated H & P completed: Yes PA/LAT: Completed CT: Completed MRI: N/A LE US: N/A Cath: Yes - reviewed: Yes Echo:Completed EKG: Completed EF %: 65 PI's: Completed Carotid: N/A Mapping: N/A Dental: Pending PFT's: Completed No results for input(s): WBC, HB, HCT, PLT, INR, CREAT in the last 72 hours. UA: Normal HCG:N/A ABO/ABO Confirmed: Yes Blood ordered: No SA Swab: Yes - results: Pending Last Dose of Anticoagulation: vit basa LD 11/03 Op Note: N/A Pacemaker Check: N/A Consults: none DM: No Cardiac Surgical prep: N/A SIGNATURE: Kate Smith RN CHECKED BY: DATE of SERVICE: 11/10/2014 TIME of SERVICE: 10:05 AM Right rotator cuff tear 12/31/2013 08/25/19 17 Pain in joint, shoulder region 12/16/2013 0 08/24/2016 Essential hypertension, benign 12/03/2013 0 11/19/2014 Overview: Home RX; Nortvasc, ACEi A/P: NTg gtt to keep MAPS 65-75. Wean off. Hydralazine prn. Start BB when off Epi. Pain in joint, lower leg 04/16/2013 017 Degenerative tear of medial meniscus 04/16/2013 11/13/2020 Allergic rhinitis 06/29/2012 04/21/2022 Anxiety 07/08/2011 11/13/2020 Overview: Home Rx; Prozac. A/p Restarted Prozac. Esophagitis, unspecified 04/23/2009 017 Acute gastritis without mention of hemorrhage 08/24/2016 Trochanteric bursitis 03/05/2009 11/12/2014 Nontoxic uninodular goiter 01/16/200902/24 Overview: 08/13/19 US thyroid right mid-pole thyroid solid nodule 9 x 7 x 4 mm stable since 2016 Last Assessment & Plan: Assessment: under surveillance Nonallopathic lesion of sacr al region, not elsewhere classified 01/02/2009 11/13/2020 Osteoarthrosis, unspecified whether generalized or localized, unspecified site 11/12/2008 11/13/2020 ABSCESS GROIN 07/23/2008 08/23/2016 Obesity, unspecified 07/15/2008 09/16/2020 Pain in joint, pelvic region and thigh 9 08/24/2016 Aneurysm of thoracic aorta 12/05/200704/21 Overview: 05/26/2020 echocardiogram LV size and systolic function normal, ejection fraction 62%, grade 1 ventricular diastolic dysfunction. RV size and RV SF normal, aorta borderline dilated 3.8 cm: Status post aortic valve repair with no regurgitation, peak gradient 33 mmHg, mean gradient 19 mmHg . 07/23/2019 nuclear stress: No inducible ischemia or evidence of scarred myocardium, LV size normal LV SF normal. Ejection fraction 70% 11/17/2014 Mini-BAV repair, Ascending aortic replacement Last Assessment & Plan: Assessment: s/p ascending aorta repair in 2014. 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 Assessment: c/o dry eye Plan: ordered refresh eye drops Last Assessment & Plan: Assessment: prosthetic left eye, eye gtts as needed Generalized anxiety disorder Overview: Anxiety, Generalized Unspecified asthma(493.90) 09/02 Asthma 08/24/2016 documented as of this encounter (statuses as of 05/03/2022) [facility]11-10-2022 History of Past illness Narrative* Problem Noted Date Resolved Date Depressive disorder 04/21/2022 04/21/2022 Postoperative pneumonia 04/21/2022 04/21/20 Viral infection 04/21/2022 04/21/2022 Lumbosacral spondylosis with radiculopathy 03/2804/27/2022 Dependence on continuous pos itive airway pressure ventilation 03/12/2022 04/21/2022 Dependence on other enabling machines and device s 03/12/2022 04/21/2022 Other specified postprocedural states 03/12/2022 04/21/2022 Personal history of pulmonary embolism 04/21/2022 Rheumatoid arthritis, unspecified 03/12/2022 04/21/2022 Ureteric colic 12/20/2021 04/21/2022 Unspecified abdominal pain 12/08/202104/21 Dyspnea, unspecified 04/05/2021 04/21/2022 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 02/17/2017 12/05/2019 Overview: Added automatically from request for surgery [id number] Acute pain of left knee 12/26/2016 11/14/19 Chronic right shoulder pain 12/26/2016 04/0 12/2020 Gross hematuria 11/24/2016 11/13/2020 Malignant neoplasm of kidney excluding renal pel vis 10/21/2016 02/27/2017 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, without long-term current use of insulin 09/30/2016 09/30/2016 Neuropathy 09/30/2016 11/13/2020 Last Assessment & Plan: Assessment: stable on rx Asthma with COPD with exacerbation 08/24/2016 02/27/2017 Counseling and coordination of care 12/15/2014 08/24/2016 SUMMARY 11/21/2014 08/24/2016 Overview: Indication for hospital admission/procedure: Aortic aneurysm LVEF: 65% LVH RVF: Normal Important/Relevant PMH/PSH: BAV, Congenital anomaly of aorta, SIVAKUMAR, Asthma, HTN, HPL, DM, anxiety Preoperative Hospital Course Procedure/Surgeries: 11/17/2014 Mini-BAV repair, Ascending aortic replacement Airway Difficulty: No OR Course: Coagulopathy/bleeding requiring correction with 20u cryo, 8u FFP, 4u plts, 3uprbcs and 2 pump runs for repair of aortic cannulation site Pacing wires: out Postoperative Course/General Impression: S/p AVr/Asc aorta replacement. Plan to wean o2, pep, oob, increase diuresis, cont BB, pain and glucose control. Issues to communicate at signout: CT removed CPAP at night echo done CTA done PT rec acute rehab Needs much encouragement wires out 11/23 d/c to acute rehab today Discharge planning 11/21/2014 05/03/2016 Overview: Pt from [place], [place]. PT rec acute rehab; CM working on placement. Leaving for [facility] in-[facility] rehab today Hypertension 11/20/2014 02/27/2017 Overview: History: pre op on monopril, norv, Assessment: normotensive currently Plan: Cont BB , cont lasix Atelectasis 11/18/2014 11/19/2014 Overview: Bilateral on CXR. A/P: PEP, EZPAP OOBTC. Volume overload 11/18/2014 08/24/2016 Overview: History: post op Assessment: wt up 5 kg from pre op Plan: cont diuresis On mechanically assisted ventilation 11/17/2014 11/19/2014 Overview: Grade 1 airway. WTE when awake and stable. Extubated on DOS. CPAP at night PEP. Cardiac insufficiency following cardiac surgery 11/17/2014 11/20/2014 Overview: Low CI. CVP low. A/p Epi gtt off. Start BB. Pre-op testing 11/14/2014 08/23/2016 Overview: Images from the original note were not included. [facility] Surgeon: Modesto Cifuentes M.D. Informed Consent Completed: Yes STS Score: unsupported CAD: No Is intended procedure a CABG: No - is a beta hue ordered? No - reason: not indicated H & P completed: Yes 10/28/14 PA/LAT: Completed CT: Completed MRI: N/A LE US: N/A Cath: Yes - reviewed: Yes Echo:Completed EKG: Completed EF %: 65 PI's: N/A Carotid: N/A Mapping: N/A Dental: Completed PFT's: N/A No results for input(s): WBC, HB, HCT, PLT, INR, CREAT in the last 72 hours. UA: Normal HCG:N/A ABO/ABO Confirmed: Yes Blood ordered: No SA Swab: Yes - results: Negative Last Dose of Anticoagulation: OTC 11/12/14 Op Note: N/A Pacemaker Check: N/A Consults: none DM: Yes, A1c: 6.6% Cardiac Surgical prep: N/A SIGNATURE: JERSON Tian CHECKED BY: [email or web address] DATE of SERVICE: 11/14/2014 TIME of SERVICE: 10:59 AM discharge planning 11/10/2014 11/12/2014 Overview: 64yo male without any concerns presently Preop testing 11/10/2014 11/12/2014 Overview: Images from the original note were not included. [facility] Surgeon: Modesto Cifuentes M.D. Informed Consent Completed: pending STS Score: unsupported CAD: Yes - CAD on Problem List: Yes Is intended procedure a CABG: No - is a beta hue ordered? No - reason: not indicated H & P completed: Yes PA/LAT: Completed CT: Completed MRI: N/A LE US: N/A Cath: Yes - reviewed: Yes Echo:Completed EKG: Completed EF %: 65 PI's: Completed Carotid: N/A Mapping: N/A Dental: Pending PFT's: Completed No results for input(s): WBC, HB, HCT, PLT, INR, CREAT in the last 72 hours. UA: Normal HCG:N/A ABO/ABO Confirmed: Yes Blood ordered: No SA Swab: Yes - results: Pending Last Dose of Anticoagulation: vit basa LD 11/03 Op Note: N/A Pacemaker Check: N/A Consults: none DM: No Cardiac Surgical prep: N/A SIGNATURE: Kate Smith RN CHECKED BY: DATE of SERVICE: 11/10/2014 TIME of SERVICE: 10:05 AM Right rotator cuff tear 12/31/2013 08/25/19 17 Pain in joint, shoulder region 12/16/2013 0 08/24/2016 Essential hypertension, benign 12/03/2013 0 11/19/2014 Overview: Home RX; Nortvasc, ACEi A/P: NTg gtt to keep MAPS 65-75. Wean off. Hydralazine prn. Start BB when off Epi. Pain in joint, lower leg 04/16/2013 017 Degenerative tear of medial meniscus 04/16/2013 11/13/2020 Allergic rhinitis 06/29/2012 04/21/2022 Anxiety 07/08/2011 11/13/2020 Overview: Home Rx; Prozac. A/p Restarted Prozac. Esophagitis, unspecified 04/23/2009 017 Acute gastritis without mention of hemorrhage 08/24/2016 Trochanteric bursitis 03/05/2009 11/12/2014 Nontoxic uninodular goiter 01/16/200902/24 Overview: 08/13/19 US thyroid right mid-pole thyroid solid nodule 9 x 7 x 4 mm stable since 2016 Last Assessment & Plan: Assessment: under surveillance Nonallopathic lesion of sacr al region, not elsewhere classified 01/02/2009 11/13/2020 Osteoarthrosis, unspecified whether generalized or localized, unspecified site 11/12/2008 11/13/2020 ABSCESS GROIN 07/23/2008 08/23/2016 Obesity, unspecified 07/15/2008 09/16/2020 Pain in joint, pelvic region and thigh 9 08/24/2016 Aneurysm of thoracic aorta 12/05/200704/21 Overview: 05/26/2020 echocardiogram LV size and systolic function normal, ejection fraction 62%, grade 1 ventricular diastolic dysfunction. RV size and RV SF normal, aorta borderline dilated 3.8 cm: Status post aortic valve repair with no regurgitation, peak gradient 33 mmHg, mean gradient 19 mmHg . 07/23/2019 nuclear stress: No inducible ischemia or evidence of scarred myocardium, LV size normal LV SF normal. Ejection fraction 70% 11/17/2014 Mini-BAV repair, Ascending aortic replacement Last Assessment & Plan: Assessment: s/p ascending aorta repair in 2014. 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 Assessment: c/o dry eye Plan: ordered refresh eye drops Last Assessment & Plan: Assessment: prosthetic left eye, eye gtts as needed Generalized anxiety disorder Overview: Anxiety, Generalized Unspecified asthma(493.90) 09/02 Asthma 08/24/2016 documented as of this encounter (statuses as of 05/20/2022) [facility]11-10-2022 History of Past illness Narrative* Problem Noted Date Resolved Date Depressive disorder 04/21/2022 04/21/2022 Postoperative pneumonia 04/21/2022 04/21/20 22 Viral infection 04/21/2022 04/21/2022 Lumbosacral spondylosis with radiculopathy 03/2804/27/2022 Dependence on continuous pos itive airway pressure ventilation 03/12/2022 04/21/2022 Dependence on other enabling machines and device s 03/12/2022 04/21/2022 Other specified postprocedural states 03/12/2022 04/21/2022 Personal history of pulmonary embolism 04/21/2022 Rheumatoid arthritis, unspecified 03/12/2022 04/21/2022 Ureteric colic 12/20/2021 04/21/2022 Unspecified abdominal pain 12/08/202104/21 Dyspnea, unspecified 04/05/2021 04/21/2022 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 02/17/2017 12/05/2019 Overview: Added automatically from request for surgery [id number] Acute pain of left knee 12/26/2016 11/14/19 Chronic right shoulder pain 12/26/2016 04/0 12/2020 Gross hematuria 11/24/2016 11/13/2020 Malignant neoplasm of kidney excluding renal pel vis 10/21/2016 02/27/2017 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, without long-term current use of insulin 09/30/2016 09/30/2016 Neuropathy 09/30/2016 11/13/2020 Last Assessment & Plan: Assessment: stable on rx Asthma with COPD with exacerbation 08/24/2016 02/27/2017 Counseling and coordination of care 12/15/2014 08/24/2016 SUMMARY 11/21/2014 08/24/2016 Overview: Indication for hospital admission/procedure: Aortic aneurysm LVEF: 65% LVH RVF: Normal Important/Relevant PMH/PSH: BAV, Congenital anomaly of aorta, SIVAKUMAR, Asthma, HTN, HPL, DM, anxiety Preoperative Hospital Course Procedure/Surgeries: 11/17/2014 Mini-BAV repair, Ascending aortic replacement Airway Difficulty: No OR Course: Coagulopathy/bleeding requiring correction with 20u cryo, 8u FFP, 4u plts, 3uprbcs and 2 pump runs for repair of aortic cannulation site Pacing wires: out Postoperative Course/General Impression: S/p AVr/Asc aorta replacement. Plan to wean o2, pep, oob, increase diuresis, cont BB, pain and glucose control. Issues to communicate at signout: CT removed CPAP at night echo done CTA done PT rec acute rehab Needs much encouragement wires out 11/23 d/c to acute rehab today Discharge planning 11/21/2014 05/03/2016 Overview: Pt from [place], [place]. PT rec acute rehab; CM working on placement. Leaving for [facility] in-pt rehab today Hypertension 11/20/2014 02/27/2017 Overview: History: pre op on monopril, norv, Assessment: normotensive currently Plan: Cont BB , cont lasix Atelectasis 11/18/2014 11/19/2014 Overview: Bilateral on CXR. A/P: PEP, EZPAP OOBTC. Volume overload 11/18/2014 08/24/2016 Overview: History: post op Assessment: wt up 5 kg from pre op Plan: cont diuresis On mechanically assisted ventilation 11/17/2014 11/19/2014 Overview: Grade 1 airway. WTE when awake and stable. Extubated on DOS. CPAP at night PEP. Cardiac insufficiency following cardiac surgery 11/17/2014 11/20/2014 Overview: Low CI. CVP low. A/p Epi gtt off. Start BB. Pre-op testing 11/14/2014 08/23/2016 Overview: Images from the original note were not included. [facility] Surgeon: Modesto Cifuentes M.D. Informed Consent Completed: Yes STS Score: unsupported CAD: No Is intended procedure a CABG: No - is a beta hue ordered? No - reason: not indicated H & P completed: Yes 10/28/14 PA/LAT: Completed CT: Completed MRI: N/A LE US: N/A Cath: Yes - reviewed: Yes Echo:Completed EKG: Completed EF %: 65 PI's: N/A Carotid: N/A Mapping: N/A Dental: Completed PFT's: N/A No results for input(s): WBC, HB, HCT, PLT, INR, CREAT in the last 72 hours. UA: Normal HCG:N/A ABO/ABO Confirmed: Yes Blood ordered: No SA Swab: Yes - results: Negative Last Dose of Anticoagulation: OTC 11/12/14 Op Note: N/A Pacemaker Check: N/A Consults: none DM: Yes, A1c: 6.6% Cardiac Surgical prep: N/A SIGNATURE: JERSON Tian CHECKED BY: [email or web address] DATE of SERVICE: 11/14/2014 TIME of SERVICE: 10:59 AM discharge planning 11/10/2014 11/12/2014 Overview: 64yo male without any concerns presently Preop testing 11/10/2014 11/12/2014 Overview: Images from the original note were not included. [facility] Surgeon: Modesto Cifuentes M.D. Informed Consent Completed: pending STS Score: unsupported CAD: Yes - CAD on Problem List: Yes Is intended procedure a CABG: No - is a beta hue ordered? No - reason: not indicated H & P completed: Yes PA/LAT: Completed CT: Completed MRI: N/A LE US: N/A Cath: Yes - reviewed: Yes Echo:Completed EKG: Completed EF %: 65 PI's: Completed Carotid: N/A Mapping: N/A Dental: Pending PFT's: Completed No results for input(s): WBC, HB, HCT, PLT, INR, CREAT in the last 72 hours. UA: Normal HCG:N/A ABO/ABO Confirmed: Yes Blood ordered: No SA Swab: Yes - results: Pending Last Dose of Anticoagulation: vit basa LD 11/03 Op Note: N/A Pacemaker Check: N/A Consults: none DM: No Cardiac Surgical prep: N/A SIGNATURE: Kate Smith RN CHECKED BY: DATE of SERVICE: 11/10/2014 TIME of SERVICE: 10:05 AM Right rotator cuff tear 12/31/2013 08/25/19 17 Pain in joint, shoulder region 12/16/2013 0 08/24/2016 Essential hypertension, benign 12/03/2013 0 11/19/2014 Overview: Home RX; Nortvasc, ACEi A/P: NTg gtt to keep MAPS 65-75. Wean off. Hydralazine prn. Start BB when off Epi. Pain in joint, lower leg 04/16/2013 017 Degenerative tear of medial meniscus 04/16/2013 11/13/2020 Allergic rhinitis 06/29/2012 04/21/2022 Anxiety 07/08/2011 11/13/2020 Overview: Home Rx; Prozac. A/p Restarted Prozac. Esophagitis, unspecified 04/23/2009 017 Acute gastritis without mention of hemorrhage 08/24/2016 Trochanteric bursitis 03/05/2009 11/12/2014 Nontoxic uninodular goiter 01/16/200902/24 Overview: 08/13/19 thyroid right mid-pole thyroid solid nodule 9 x 7 x 4 mm stable since 2016 Last Assessment & Plan: Assessment: under surveillance Nonallopathic lesion of sacr al region, not elsewhere classified 01/02/2009 11/13/2020 Osteoarthrosis, unspecified whether generalized or localized, unspecified site 11/12/2008 11/13/2020 ABSCESS GROIN 07/23/2008 08/23/2016 Obesity, unspecified 07/15/2008 09/16/2020 Pain in joint, pelvic region and thigh 08/24/2016 Aneurysm of thoracic aorta 12/05/200704/21 Overview: 05/26/2020 echocardiogram LV size and systolic function normal, ejection fraction 62%, grade 1 ventricular diastolic dysfunction. RV size and RV SF normal, aorta borderline dilated 3.8 cm: Status post aortic valve repair with no regurgitation, peak gradient 33 mmHg, mean gradient 19 mmHg . 07/23/2019 nuclear stress: No inducible ischemia or evidence of scarred myocardium, LV size normal LV SF normal. Ejection fraction 70% 11/17/2014 Mini-BAV repair, Ascending aortic replacement Last Assessment & Plan: Assessment: s/p ascending aorta repair in 2014. 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 Assessment: c/o dry eye Plan: ordered refresh eye drops Last Assessment & Plan: Assessment: prosthetic left eye, eye gtts as needed Generalized anxiety disorder Overview: Anxiety, Generalized Unspecified asthma(493.90) 09/02 Asthma 08/24/2016 documented as of this encounter (statuses as of 06/03/2022) [facility]11-10-[facility] History of Past illness Narrative* Problem Noted Date Resolved Date Depressive disorder 04/21/2022 04/21/2022 Postoperative pneumonia 04/21/2022 04/21/20 Viral infection 04/21/2022 04/21/2022 Lumbosacral spondylosis with radiculopathy 03/2804/27/2022 Dependence on continuous pos itive airway pressure ventilation 03/12/2022 04/21/2022 Dependence on other enabling machines and device s 03/12/2022 04/21/2022 Other specified postprocedural states 03/12/2022 04/21/2022 Personal history of pulmonary embolism 04/21/2022 Rheumatoid arthritis, unspecified 03/12/2022 04/21/2022 Ureteric colic 12/20/2021 04/21/2022 Unspecified abdominal pain 12/08/202104/21 Dyspnea, unspecified 04/05/2021 04/21/2022 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 02/17/2017 12/05/2019 Overview: Added automatically from request for surgery [id number] Acute pain of left knee 12/26/2016 11/14/19 21 Chronic right shoulder pain 12/26/2016 04/0 12/2020 Gross hematuria 11/24/2016 11/13/2020 Malignant neoplasm of kidney excluding renal pel vis 10/21/2016 02/27/2017 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, without long-term current use of insulin 09/30/2016 09/30/2016 Neuropathy 09/30/2016 11/13/2020 Last Assessment & Plan: Assessment: stable on rx Asthma with COPD with exacerbation 08/24/2016 02/27/2017 Counseling and coordination of care 12/15/2014 08/24/2016 SUMMARY 11/21/2014 08/24/2016 Overview: Indication for hospital admission/procedure: Aortic aneurysm LVEF: 65% LVH RVF: Normal Important/Relevant PMH/PSH: BAV, Congenital anomaly of aorta, SIVAKUMAR, Asthma, HTN, HPL, DM, anxiety Preoperative Hospital Course Procedure/Surgeries: 11/17/2014 Mini-BAV repair, Ascending aortic replacement Airway Difficulty: No OR Course: Coagulopathy/bleeding requiring correction with 20u cryo, 8u FFP, 4u plts, 3uprbcs and 2 pump runs for repair of aortic cannulation site Pacing wires: out Postoperative Course/General Impression: S/p AVr/Asc aorta replacement. Plan to wean o2, pep, oob, increase diuresis, cont BB, pain and glucose control. Issues to communicate at signout: CT removed CPAP at night echo done CTA done PT rec acute rehab Needs much encouragement wires out 11/23 d/c to acute rehab today Discharge planning 11/21/2014 05/03/2016 Overview: Pt from [place], [place]. PT rec acute rehab; CM working on placement. Leaving for [facility] in-pt rehab today Hypertension 11/20/2014 02/27/2017 Overview: History: pre op on monopril, norv, Assessment: normotensive currently Plan: Cont BB , cont lasix Atelectasis 11/18/2014 11/19/2014 Overview: Bilateral on CXR. A/P: PEP, EZPAP OOBTC. Volume overload 11/18/2014 08/24/2016 Overview: History: post op Assessment: wt up 5 kg from pre op Plan: cont diuresis On mechanically assisted ventilation 11/17/2014 11/19/2014 Overview: Grade 1 airway. WTE when awake and stable. Extubated on DOS. CPAP at night PEP. Cardiac insufficiency following cardiac surgery 11/17/2014 11/20/2014 Overview: Low CI. CVP low. A/p Epi gtt off. Start BB. Pre-op testing 11/14/2014 08/23/2016 Overview: Images from the original note were not included. [facility] Surgeon: Modesto Cifuentes M.D. Informed Consent Completed: Yes STS Score: unsupported CAD: No Is intended procedure a CABG: No - is a beta hue ordered? No - reason: not indicated H & P completed: Yes 10/28/14 PA/LAT: Completed CT: Completed MRI: N/A LE US: N/A Cath: Yes - reviewed: Yes Echo:Completed EKG: Completed EF %: 65 PI's: N/A Carotid: N/A Mapping: N/A Dental: Completed PFT's: N/A No results for input(s): WBC, HB, HCT, PLT, INR, CREAT in the last 72 hours. UA: Normal HCG:N/A ABO/ABO Confirmed: Yes Blood ordered: No SA Swab: Yes - results: Negative Last Dose of Anticoagulation: OTC 11/12/14 Op Note: N/A Pacemaker Check: N/A Consults: none DM: Yes, A1c: 6.6% Cardiac Surgical prep: N/A SIGNATURE: JERSON Tian CHECKED BY: [email or web address] DATE of SERVICE: 11/14/2014 TIME of SERVICE: 10:59 AM discharge planning 11/10/2014 11/12/2014 Overview: 64yo male without any concerns presently Preop testing 11/10/2014 11/12/2014 Overview: Images from the original note were not included. [facility] PRE-OP CHECKLIST Surgeon: Modesto Cifuentes M.D. Informed Consent Completed: pending STS Score: unsupported CAD: Yes - CAD on Problem List: Yes Is intended procedure a CABG: No - is a beta hue ordered? No - reason: not indicated H & P completed: Yes PA/LAT: Completed CT: Completed MRI: N/A LE US: N/A Cath: Yes - reviewed: Yes Echo:Completed EKG: Completed EF %: 65 PI's: Completed Carotid: N/A Mapping: N/A Dental: Pending PFT's: Completed No results for input(s): WBC, HB, HCT, PLT, INR, CREAT in the last 72 hours. UA: Normal HCG:N/A ABO/ABO Confirmed: Yes Blood ordered: No SA Swab: Yes - results: Pending Last Dose of Anticoagulation: vit basa LD 11/03 Op Note: N/A Pacemaker Check: N/A Consults: none DM: No Cardiac Surgical prep: N/A SIGNATURE: Kate Smith RN CHECKED BY: DATE of SERVICE: 11/10/2014 TIME of SERVICE: 10:05 AM Right rotator cuff tear 12/31/2013 08/25/19 17 Pain in joint, shoulder region 12/16/2013 0 08/24/2016 Essential hypertension, benign 12/03/2013 0 11/19/2014 Overview: Home RX; Nortvasc, ACEi A/P: NTg gtt to keep MAPS 65-75. Wean off. Hydralazine prn. Start BB when off Epi. Pain in joint, lower leg 04/16/2013 017 Degenerative tear of medial meniscus 04/16/2013 11/13/2020 Allergic rhinitis 06/29/2012 04/21/2022 Anxiety 07/08/2011 11/13/2020 Overview: Home Rx; Prozac. A/p Restarted Prozac. Esophagitis, unspecified 04/23/2009 017 Acute gastritis without mention of hemorrhage 08/24/2016 Trochanteric bursitis 03/05/2009 11/12/2014 Nontoxic uninodular goiter 01/16/200902/24 Overview: 08/13/19 US thyroid right mid-pole thyroid solid nodule 9 x 7 x 4 mm stable since 2016 Last Assessment & Plan: Assessment: under surveillance Nonallopathic lesion of sacr al region, not elsewhere classified 01/02/2009 11/13/2020 Osteoarthrosis, unspecified whether generalized or localized, unspecified site 11/12/2008 11/13/2020 ABSCESS GROIN 07/23/2008 08/23/2016 Obesity, unspecified 07/15/2008 09/16/2020 Pain in joint, pelvic region and thigh 9 08/24/2016 Aneurysm of thoracic aorta 12/05/200704/21 Overview: 05/26/2020 echocardiogram LV size and systolic function normal, ejection fraction 62%, grade 1 ventricular diastolic dysfunction. RV size and RV SF normal, aorta borderline dilated 3.8 cm: Status post aortic valve repair with no regurgitation, peak gradient 33 mmHg, mean gradient 19 mmHg . 07/23/2019 nuclear stress: No inducible ischemia or evidence of scarred myocardium, LV size normal LV SF normal. Ejection fraction 70% 11/17/2014 Mini-BAV repair, Ascending aortic replacement Last Assessment & Plan: Assessment: s/p ascending aorta repair in 2014. 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 Assessment: c/o dry eye Plan: ordered refresh eye drops Last Assessment & Plan: Assessment: prosthetic left eye, eye gtts as needed Generalized anxiety disorder Overview: Anxiety, Generalized Unspecified asthma(493.90) 09/02 Asthma 08/24/2016 documented as of this encounter (statuses as of 06/15/2022) [facility]11-10-2022 History of Past illness Narrative* Problem Noted Date Resolved Date Depressive disorder 04/21/2022 04/21/2022 Postoperative pneumonia 04/21/2022 04/21/20 22 Viral infection 04/21/2022 04/21/2022 Lumbosacral spondylosis with radiculopathy 03/2804/27/2022 Dependence on continuous pos itive airway pressure ventilation 03/12/2022 04/21/2022 Dependence on other enabling machines and device s 03/12/2022 04/21/2022 Other specified postprocedural states 03/12/2022 04/21/2022 Personal history of pulmonary embolism 04/21/2022 Rheumatoid arthritis, unspecified 03/12/2022 04/21/2022 Ureteric colic 12/20/2021 04/21/2022 Unspecified abdominal pain 12/08/202104/21 Dyspnea, unspecified 04/05/2021 04/21/2022 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 02/17/2017 12/05/2019 Overview: Added automatically from request for surgery [id number] Acute pain of left knee 12/26/2016 11/14/19 Chronic right shoulder pain 12/26/2016 04/0 12/2020 Gross hematuria 11/24/2016 11/13/2020 Malignant neoplasm of kidney excluding renal pel vis 10/21/2016 02/27/2017 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, without long-term current use of insulin 09/30/2016 09/30/2016 Neuropathy 09/30/2016 11/13/2020 Last Assessment & Plan: Assessment: stable on rx Asthma with COPD with exacerbation 08/24/2016 02/27/2017 Counseling and coordination of care 12/15/2014 08/24/2016 SUMMARY 11/21/2014 08/24/2016 Overview: Indication for hospital admission/procedure: Aortic aneurysm LVEF: 65% LVH RVF: Normal Important/Relevant PMH/PSH: BAV, Congenital anomaly of aorta, SIVAKUMAR, Asthma, HTN, HPL, DM, anxiety Preoperative Hospital Course Procedure/Surgeries: 11/17/2014 Mini-BAV repair, Ascending aortic replacement Airway Difficulty: No OR Course: Coagulopathy/bleeding requiring correction with 20u cryo, 8u FFP, 4u plts, 3uprbcs and 2 pump runs for repair of aortic cannulation site Pacing wires: out Postoperative Course/General Impression: S/p AVr/Asc aorta replacement. Plan to wean o2, pep, oob, increase diuresis, cont BB, pain and glucose control. Issues to communicate at signout: CT removed CPAP at night echo done CTA done PT rec acute rehab Needs much encouragement wires out 11/23 d/c to acute rehab today Discharge planning 11/21/2014 05/03/2016 Overview: Pt from [place], [place]. PT rec acute rehab; CM working on placement. Leaving for [facility] in-pt rehab today Hypertension 11/20/2014 02/27/2017 Overview: History: pre op on monopril, norv, Assessment: normotensive currently Plan: Cont BB , cont lasix Atelectasis 11/18/2014 11/19/2014 Overview: Bilateral on CXR. A/P: PEP, EZPAP OOBTC. Volume overload 11/18/2014 08/24/2016 Overview: History: post op Assessment: wt up 5 kg from pre op Plan: cont diuresis On mechanically assisted ventilation 11/17/2014 11/19/2014 Overview: Grade 1 airway. WTE when awake and stable. Extubated on DOS. CPAP at night PEP. Cardiac insufficiency following cardiac surgery 11/17/2014 11/20/2014 Overview: Low CI. CVP low. A/p Epi gtt off. Start BB. Pre-op testing 11/14/2014 08/23/2016 Overview: Images from the original note were not included. [facility] PRE-OP CHECKLIST Surgeon: Modesto Cifuentes M.D. Informed Consent Completed: Yes STS Score: unsupported CAD: No Is intended procedure a CABG: No - is a beta hue ordered? No - reason: not indicated H & P completed: Yes 10/28/14 PA/LAT: Completed CT: Completed MRI: N/A LE US: N/A Cath: Yes - reviewed: Yes Echo:Completed EKG: Completed EF %: 65 PI's: N/A Carotid: N/A Mapping: N/A Dental: Completed PFT's: N/A No results for input(s): WBC, HB, HCT, PLT, INR, CREAT in the last 72 hours. UA: Normal HCG:N/A ABO/ABO Confirmed: Yes Blood ordered: No SA Swab: Yes - results: Negative Last Dose of Anticoagulation: OTC 11/12/14 Op Note: N/A Pacemaker Check: N/A Consults: none DM: Yes, A1c: 6.6% Cardiac Surgical prep: N/A SIGNATURE: JERSON Tian CHECKED BY: [email or web address] DATE of SERVICE: 11/14/2014 TIME of SERVICE: 10:59 AM discharge planning 11/10/2014 11/12/2014 Overview: 64yo male without any concerns presently Preop testing 11/10/2014 11/12/2014 Overview: Images from the original note were not included. [facility] PRE-OP CHECKLIST Surgeon: Modesto Cifuentes M.D. Informed Consent Completed: pending STS Score: unsupported CAD: Yes - CAD on Problem List: Yes Is intended procedure a CABG: No - is a beta hue ordered? No - reason: not indicated H & P completed: Yes PA/LAT: Completed CT: Completed MRI: N/A LE US: N/A Cath: Yes - reviewed: Yes Echo:Completed EKG: Completed EF %: 65 PI's: Completed Carotid: N/A Mapping: N/A Dental: Pending PFT's: Completed No results for input(s): WBC, HB, HCT, PLT, INR, CREAT in the last 72 hours. UA: Normal HCG:N/A ABO/ABO Confirmed: Yes Blood ordered: No SA Swab: Yes - results: Pending Last Dose of Anticoagulation: vit basa LD 11/03 Op Note: N/A Pacemaker Check: N/A Consults: none DM: No Cardiac Surgical prep: N/A SIGNATURE: Kate Smith RN CHECKED BY: DATE of SERVICE: 11/10/2014 TIME of SERVICE: 10:05 AM Right rotator cuff tear 12/31/2013 08/25/19 17 Pain in joint, shoulder region 12/16/2013 0 08/24/2016 Essential hypertension, benign 12/03/2013 0 11/19/2014 Overview: Home RX; Nortvasc, ACEi A/P: NTg gtt to keep MAPS 65-75. Wean off. Hydralazine prn. Start BB when off Epi. Pain in joint, lower leg 04/16/2013 017 Degenerative tear of medial meniscus 04/16/2013 11/13/2020 Allergic rhinitis 06/29/2012 04/21/2022 Anxiety 07/08/2011 11/13/2020 Overview: Home Rx; Prozac. A/p Restarted Prozac. Esophagitis, unspecified 04/23/2009 017 Acute gastritis without mention of hemorrhage 08/24/2016 Trochanteric bursitis 03/05/2009 11/12/2014 Nontoxic uninodular goiter 01/16/200902/24 Overview: 08/13/19 US thyroid right mid-pole thyroid solid nodule 9 x 7 x 4 mm stable since 2016 Last Assessment & Plan: Assessment: under surveillance Nonallopathic lesion of sacr al region, not elsewhere classified 01/02/2009 11/13/2020 Osteoarthrosis, unspecified whether generalized or localized, unspecified site 11/12/2008 11/13/2020 ABSCESS GROIN 07/23/2008 08/23/2016 Obesity, unspecified 07/15/2008 09/16/2020 Pain in joint, pelvic region and thigh 9 08/24/2016 Aneurysm of thoracic aorta 12/05/200704/21 Overview: 05/26/2020 echocardiogram LV size and systolic function normal, ejection fraction 62%, grade 1 ventricular diastolic dysfunction. RV size and RV SF normal, aorta borderline dilated 3.8 cm: Status post aortic valve repair with no regurgitation, peak gradient 33 mmHg, mean gradient 19 mmHg . 07/23/2019 nuclear stress: No inducible ischemia or evidence of scarred myocardium, LV size normal LV SF normal. Ejection fraction 70% 11/17/2014 Mini-BAV repair, Ascending aortic replacement Last Assessment & Plan: Assessment: s/p ascending aorta repair in 2014. 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 Assessment: c/o dry eye Plan: ordered refresh eye drops Last Assessment & Plan: Assessment: prosthetic left eye, eye gtts as needed Generalized anxiety disorder Overview: Anxiety, Generalized Unspecified asthma(493.90) 09/02 Asthma 08/24/2016 documented as of this encounter (statuses as of 07/06/2022) [facility]11-10-2022 History of Past illness Narrative* Problem Noted Date Resolved Date Depressive disorder 04/21/2022 04/21/2022 Postoperative pneumonia 04/21/2022 04/21/20 22 Viral infection 04/21/2022 04/21/2022 Lumbosacral spondylosis with radiculopathy 03/2804/27/2022 Dependence on continuous pos itive airway pressure ventilation 03/12/2022 04/21/2022 Dependence on other enabling machines and device s 03/12/2022 04/21/2022 Other specified postprocedural states 03/12/2022 04/21/2022 Personal history of pulmonary embolism 04/21/2022 Rheumatoid arthritis, unspecified 03/12/2022 04/21/2022 Ureteric colic 12/20/2021 04/21/2022 Unspecified abdominal pain 12/08/202104/21 Dyspnea, unspecified 04/05/2021 04/21/2022 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 02/17/2017 12/05/2019 Overview: Added automatically from request for surgery [id number] Acute pain of left knee 12/26/2016 11/14/19 Chronic right shoulder pain 12/26/201612/2020 Gross hematuria 11/24/2016 11/13/2020 Malignant neoplasm of kidney excluding renal pel vis 10/21/2016 02/27/2017 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, without long-term current use of insulin 09/30/2016 09/30/2016 Neuropathy 09/30/2016 11/13/2020 Last Assessment & Plan: Assessment: stable on rx Asthma with COPD with exacerbation 08/24/2016 02/27/2017 Counseling and coordination of care 12/15/2014 08/24/2016 SUMMARY 11/21/2014 08/24/2016 Overview: Indication for hospital admission/procedure: Aortic aneurysm LVEF: 65% LVH RVF: Normal Important/Relevant PMH/PSH: BAV, Congenital anomaly of aorta, SIVAKUMAR, Asthma, HTN, HPL, DM, anxiety Preoperative Hospital Course Procedure/Surgeries: 11/17/2014 Mini-BAV repair, Ascending aortic replacement Airway Difficulty: No OR Course: Coagulopathy/bleeding requiring correction with 20u cryo, 8u FFP, 4u plts, 3uprbcs and 2 pump runs for repair of aortic cannulation site Pacing wires: out Postoperative Course/General Impression: S/p AVr/Asc aorta replacement. Plan to wean o2, pep, oob, increase diuresis, cont BB, pain and glucose control. Issues to communicate at signout: CT removed CPAP at night echo done CTA done PT rec acute rehab Needs much encouragement wires out 11/23 d/c to acute rehab today Discharge planning 11/21/2014 05/03/2016 Overview: Pt from [place], [place]. PT rec acute rehab; CM working on placement. Leaving for [facility] in-pt rehab today Hypertension 11/20/2014 02/27/2017 Overview: History: pre op on monopril, norv, Assessment: normotensive currently Plan: Cont BB , cont lasix Atelectasis 11/18/2014 11/19/2014 Overview: Bilateral on CXR. A/P: PEP, EZPAP OOBTC. Volume overload 11/18/2014 08/24/2016 Overview: History: post op Assessment: wt up 5 kg from pre op Plan: cont diuresis On mechanically assisted ventilation 11/17/2014 11/19/2014 Overview: Grade 1 airway. WTE when awake and stable. Extubated on DOS. CPAP at night PEP. Cardiac insufficiency following cardiac surgery 11/17/2014 11/20/2014 Overview: Low CI. CVP low. A/p Epi gtt off. Start BB. Pre-op testing 11/14/2014 08/23/2016 Overview: Images from the original note were not included. [facility] Surgeon: Modesto Cifuentes M.D. Informed Consent Completed: Yes STS Score: unsupported CAD: No Is intended procedure a CABG: No - is a beta hue ordered? No - reason: not indicated H & P completed: Yes 10/28/14 PA/LAT: Completed CT: Completed MRI: N/A LE US: N/A Cath: Yes - reviewed: Yes Echo:Completed EKG: Completed EF %: 65 PI's: N/A Carotid: N/A Mapping: N/A Dental: Completed PFT's: N/A No results for input(s): WBC, HB, HCT, PLT, INR, CREAT in the last 72 hours. UA: Normal HCG:N/A ABO/ABO Confirmed: Yes Blood ordered: No SA Swab: Yes - results: Negative Last Dose of Anticoagulation: OTC 11/12/14 Op Note: N/A Pacemaker Check: N/A Consults: none DM: Yes, A1c: 6.6% Cardiac Surgical prep: N/A SIGNATURE: Laura Mathews [employer] EXTINGU[employer] TECHNICIAN CHECKED BY: [email or web address] DATE of SERVICE: 11/14/2014 TIME of SERVICE: 10:59 AM discharge planning 11/10/2014 11/12/2014 Overview: 64yo male without any concerns presently Preop testing 11/10/2014 11/12/2014 Overview: Images from the original note were not included. [facility] Surgeon: Modesto Cifuentes M.D. Informed Consent Completed: pending STS Score: unsupported CAD: Yes - CAD on Problem List: Yes Is intended procedure a CABG: No - is a beta hue ordered? No - reason: not indicated H & P completed: Yes PA/LAT: Completed CT: Completed MRI: N/A LE US: N/A Cath: Yes - reviewed: Yes Echo:Completed EKG: Completed EF %: 65 PI's: Completed Carotid: N/A Mapping: N/A Dental: Pending PFT's: Completed No results for input(s): WBC, HB, HCT, PLT, INR, CREAT in the last 72 hours. UA: Normal HCG:N/A ABO/ABO Confirmed: Yes Blood ordered: No SA Swab: Yes - results: Pending Last Dose of Anticoagulation: vit basa LD 11/03 Op Note: N/A Pacemaker Check: N/A Consults: none DM: No Cardiac Surgical prep: N/A SIGNATURE: Kate Smith RN CHECKED BY: DATE of SERVICE: 11/10/2014 TIME of SERVICE: 10:05 AM Right rotator cuff tear 12/31/2013 08/25/19 17 Pain in joint, shoulder region 12/16/2013 0 08/24/2016 Essential hypertension, benign 12/03/2013 0 11/19/2014 Overview: Home RX; Nortvasc, ACEi A/P: NTg gtt to keep MAPS 65-75. Wean off. Hydralazine prn. Start BB when off Epi. Pain in joint, lower leg 04/16/2013 017 Degenerative tear of medial meniscus 04/16/2013 11/13/2020 Allergic rhinitis 06/29/2012 04/21/2022 Anxiety 07/08/2011 11/13/2020 Overview: Home Rx; Prozac. A/p Restarted Prozac. Esophagitis, unspecified 04/23/2009 017 Acute gastritis without mention of hemorrhage 08/24/2016 Trochanteric bursitis 03/05/2009 11/12/2014 Nontoxic uninodular goiter 01/16/200902/24 Overview: 08/13/19 thyroid right mid-pole thyroid solid nodule 9 x 7 x 4 mm stable since 2016 Last Assessment & Plan: Assessment: under surveillance Nonallopathic lesion of sacr al region, not elsewhere classified 01/02/2009 11/13/2020 Osteoarthrosis, unspecified whether generalized or localized, unspecified site 11/12/2008 11/13/2020 ABSCESS GROIN 07/23/2008 08/23/2016 Obesity, unspecified 07/15/2008 09/16/2020 Pain in joint, pelvic region and thigh 9 08/24/2016 Aneurysm of thoracic aorta 12/05/200704/21 Overview: 05/26/2020 echocardiogram LV size and systolic function normal, ejection fraction 62%, grade 1 ventricular diastolic dysfunction. RV size and RV SF normal, aorta borderline dilated 3.8 cm: Status post aortic valve repair with no regurgitation, peak gradient 33 mmHg, mean gradient 19 mmHg . 07/23/2019 nuclear stress: No inducible ischemia or evidence of scarred myocardium, LV size normal LV SF normal. Ejection fraction 70% 11/17/2014 Mini-BAV repair, Ascending aortic replacement Last Assessment & Plan: Assessment: s/p ascending aorta repair in 2014. 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 Assessment: c/o dry eye Plan: ordered refresh eye drops Last Assessment & Plan: Assessment: prosthetic left eye, eye gtts as needed Generalized anxiety disorder Overview: Anxiety, Generalized Unspecified asthma(493.90) 09/02 Asthma 08/24/2016 documented as of this encounter (statuses as of 07/11/2022) [facility]11-10-[facility] History of Past illness Narrative* Problem Noted Date Resolved Date Depressive disorder 04/21/2022 04/21/2022 Postoperative pneumonia 04/21/2022 04/21/20 22 Viral infection 04/21/2022 04/21/2022 Lumbosacral spondylosis with radiculopathy 03/2804/27/2022 Dependence on continuous pos itive airway pressure ventilation 03/12/2022 04/21/2022 Dependence on other enabling machines and device s 03/12/2022 04/21/2022 Other specified postprocedural states 03/12/2022 04/21/2022 Personal history of pulmonary embolism 2 04/21/2022 Rheumatoid arthritis, unspecified 03/12/2022 04/21/2022 Ureteric colic 12/20/2021 04/21/2022 Unspecified abdominal pain 12/08/202104/21 Dyspnea, unspecified 04/05/2021 04/21/2022 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 02/17/2017 12/05/2019 Overview: Added automatically from request for surgery [id number] Acute pain of left knee 12/26/2016 11/14/19 Chronic right shoulder pain 12/26/2016 04/0 12/2020 Gross hematuria 11/24/2016 11/13/2020 Malignant neoplasm of kidney excluding renal pel vis 10/21/2016 02/27/2017 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, without long-term current use of insulin 09/30/2016 09/30/2016 Neuropathy 09/30/2016 11/13/2020 Last Assessment & Plan: Assessment: stable on rx Asthma with COPD with exacerbation 08/24/2016 02/27/2017 Counseling and coordination of care 12/15/2014 08/24/2016 SUMMARY 11/21/2014 08/24/2016 Overview: Indication for hospital admission/procedure: Aortic aneurysm LVEF: 65% LVH RVF: Normal Important/Relevant PMH/PSH: BAV, Congenital anomaly of aorta, SIVAKUMAR, Asthma, HTN, HPL, DM, anxiety Preoperative Hospital Course Procedure/Surgeries: 11/17/2014 Mini-BAV repair, Ascending aortic replacement Airway Difficulty: No OR Course: Coagulopathy/bleeding requiring correction with 20u cryo, 8u FFP, 4u plts, 3uprbcs and 2 pump runs for repair of aortic cannulation site Pacing wires: out Postoperative Course/General Impression: S/p AVr/Asc aorta replacement. Plan to wean o2, pep, oob, increase diuresis, cont BB, pain and glucose control. Issues to communicate at signout: CT removed CPAP at night echo done CTA done PT rec acute rehab Needs much encouragement wires out 11/23 d/c to acute rehab today Discharge planning 11/21/2014 05/03/2016 Overview: Pt from [place], [place]. PT rec acute rehab; CM working on placement. Leaving for [facility] in-pt rehab today Hypertension 11/20/2014 02/27/2017 Overview: History: pre op on monopril, norv, Assessment: normotensive currently Plan: Cont BB , cont lasix Atelectasis 11/18/2014 11/19/2014 Overview: Bilateral on CXR. A/P: PEP, EZPAP OOBTC. Volume overload 11/18/2014 08/24/2016 Overview: History: post op Assessment: wt up 5 kg from pre op Plan: cont diuresis On mechanically assisted ventilation 11/17/2014 11/19/2014 Overview: Grade 1 airway. WTE when awake and stable. Extubated on DOS. CPAP at night PEP. Cardiac insufficiency following cardiac surgery 11/17/2014 11/20/2014 Overview: Low CI. CVP low. A/p Epi gtt off. Start BB. Pre-op testing 11/14/2014 08/23/2016 Overview: Images from the original note were not included. [facility] Surgeon: Modesto Cifuentes M.D. Informed Consent Completed: Yes STS Score: unsupported CAD: No Is intended procedure a CABG: No - is a beta hue ordered? No - reason: not indicated H & P completed: Yes 10/28/14 PA/LAT: Completed CT: Completed MRI: N/A LE US: N/A Cath: Yes - reviewed: Yes Echo:Completed EKG: Completed EF %: 65 PI's: N/A Carotid: N/A Mapping: N/A Dental: Completed PFT's: N/A No results for input(s): WBC, HB, HCT, PLT, INR, CREAT in the last 72 hours. UA: Normal HCG:N/A ABO/ABO Confirmed: Yes Blood ordered: No SA Swab: Yes - results: Negative Last Dose of Anticoagulation: OTC 11/12/14 Op Note: N/A Pacemaker Check: N/A Consults: none DM: Yes, A1c: 6.6% Cardiac Surgical prep: N/A SIGNATURE: JERSON Tian CHECKED BY: [email or web address] DATE of SERVICE: 11/14/2014 TIME of SERVICE: 10:59 AM discharge planning 11/10/2014 11/12/2014 Overview: 64yo male without any concerns presently Preop testing 11/10/2014 11/12/2014 Overview: Images from the original note were not included. [facility] Surgeon: Modesto Cifuentes M.D. Informed Consent Completed: pending STS Score: unsupported CAD: Yes - CAD on Problem List: Yes Is intended procedure a CABG: No - is a beta hue ordered? No - reason: not indicated H & P completed: Yes PA/LAT: Completed CT: Completed MRI: N/A LE US: N/A Cath: Yes - reviewed: Yes Echo:Completed EKG: Completed EF %: 65 PI's: Completed Carotid: N/A Mapping: N/A Dental: Pending PFT's: Completed No results for input(s): WBC, HB, HCT, PLT, INR, CREAT in the last 72 hours. UA: Normal HCG:N/A ABO/ABO Confirmed: Yes Blood ordered: No SA Swab: Yes - results: Pending Last Dose of Anticoagulation: vit basa LD 11/03 Op Note: N/A Pacemaker Check: N/A Consults: none DM: No Cardiac Surgical prep: N/A SIGNATURE: Kate Smith RN CHECKED BY: DATE of SERVICE: 11/10/2014 TIME of SERVICE: 10:05 AM Right rotator cuff tear 12/31/2013 08/25/19 17 Pain in joint, shoulder region 12/16/2013 0 08/24/2016 Essential hypertension, benign 12/03/2013 0 11/19/2014 Overview: Home RX; Nortvasc, ACEi A/P: NTg gtt to keep MAPS 65-75. Wean off. Hydralazine prn. Start BB when off Epi. Pain in joint, lower leg 04/16/2013 017 Degenerative tear of medial meniscus 04/16/2013 11/13/2020 Allergic rhinitis 06/29/2012 04/21/2022 Anxiety 07/08/2011 11/13/2020 Overview: Home Rx; Prozac. A/p Restarted Prozac. Esophagitis, unspecified 04/23/2009 017 Acute gastritis without mention of hemorrhage 08/24/2016 Trochanteric bursitis 03/05/2009 11/12/2014 Nontoxic uninodular goiter 01/16/200902/24 Overview: 08/13/19 US thyroid right mid-pole thyroid solid nodule 9 x 7 x 4 mm stable since 2016 Last Assessment & Plan: Assessment: under surveillance Nonallopathic lesion of sacr al region, not elsewhere classified 01/02/2009 11/13/2020 Osteoarthrosis, unspecified whether generalized or localized, unspecified site 11/12/2008 11/13/2020 ABSCESS GROIN 07/23/2008 08/23/2016 Obesity, unspecified 07/15/2008 09/16/2020 Pain in joint, pelvic region and thigh 9 08/24/2016 Aneurysm of thoracic aorta 12/05/200704/21 Overview: 05/26/2020 echocardiogram LV size and systolic function normal, ejection fraction 62%, grade 1 ventricular diastolic dysfunction. RV size and RV SF normal, aorta borderline dilated 3.8 cm: Status post aortic valve repair with no regurgitation, peak gradient 33 mmHg, mean gradient 19 mmHg . 07/23/2019 nuclear stress: No inducible ischemia or evidence of scarred myocardium, LV size normal LV SF normal. Ejection fraction 70% 11/17/2014 Mini-BAV repair, Ascending aortic replacement Last Assessment & Plan: Assessment: s/p ascending aorta repair in 2015. 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 Assessment: c/o dry eye Plan: ordered refresh eye drops Last Assessment & Plan: Assessment: prosthetic left eye, eye gtts as needed Generalized anxiety disorder Overview: Anxiety, Generalized Unspecified asthma(493.90) 09/02 Asthma 08/24/2016 documented as of this encounter (statuses as of 07/12/2022) [facility]11-10-2022 History of Past illness Narrative* Problem Noted Date Resolved Date Depressive disorder 04/21/2022 04/21/2022 Postoperative pneumonia 04/21/2022 04/21/20 22 Viral infection 04/21/2022 04/21/2022 Lumbosacral spondylosis with radiculopathy 03/2804/27/2022 Dependence on continuous pos itive airway pressure ventilation 03/12/2022 04/21/2022 Dependence on other enabling machines and device s 03/12/2022 04/21/2022 Other specified postprocedural states 03/12/2022 04/21/2022 Personal history of pulmonary embolism 04/21/2022 Rheumatoid arthritis, unspecified 03/12/2022 04/21/2022 Ureteric colic 12/20/2021 04/21/2022 Unspecified abdominal pain 12/08/202104/21 Dyspnea, unspecified 04/05/2021 04/21/2022 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 02/17/2017 12/05/2019 Overview: Added automatically from request for surgery [id number] Acute pain of left knee 12/26/2016 11/14/19 Chronic right shoulder pain 12/26/2016 04/0 12/2020 Gross hematuria 11/24/2016 11/13/2020 Malignant neoplasm of kidney excluding renal pel vis 10/21/2016 02/27/2017 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, without long-term current use of insulin 09/30/2016 09/30/2016 Neuropathy 09/30/2016 11/13/2020 Last Assessment & Plan: Assessment: stable on rx Asthma with COPD with exacerbation 08/24/2016 02/27/2017 Counseling and coordination of care 12/15/2014 08/24/2016 SUMMARY 11/21/2014 08/24/2016 Overview: Indication for hospital admission/procedure: Aortic aneurysm LVEF: 65% LVH RVF: Normal Important/Relevant PMH/PSH: BAV, Congenital anomaly of aorta, SIVAKUMAR, Asthma, HTN, HPL, DM, anxiety Preoperative Hospital Course Procedure/Surgeries: 11/17/2014 Mini-BAV repair, Ascending aortic replacement Airway Difficulty: No OR Course: Coagulopathy/bleeding requiring correction with 20u cryo, 8u FFP, 4u plts, 3uprbcs and 2 pump runs for repair of aortic cannulation site Pacing wires: out Postoperative Course/General Impression: S/p AVr/Asc aorta replacement. Plan to wean o2, pep, oob, increase diuresis, cont BB, pain and glucose control. Issues to communicate at signout: CT removed CPAP at night echo done CTA done PT rec acute rehab Needs much encouragement wires out 6/14 d/c to acute rehab today Discharge planning 11/21/2014 05/03/2016 Overview: Pt from [place], [place]. PT rec acute rehab; CM working on placement. Leaving for [facility] in-pt rehab today Hypertension 11/20/2014 02/27/2017 Overview: History: pre op on monopril, norv, Assessment: normotensive currently Plan: Cont BB , cont lasix Atelectasis 11/18/2014 11/19/2014 Overview: Bilateral on CXR. A/P: PEP, EZPAP OOBTC. Volume overload 11/18/2014 08/24/2016 Overview: History: post op Assessment: wt up 5 kg from pre op Plan: cont diuresis On mechanically assisted ventilation 11/17/2014 11/19/2014 Overview: Grade 1 airway. WTE when awake and stable. Extubated on DOS. CPAP at night PEP. Cardiac insufficiency following cardiac surgery 11/17/2014 11/20/2014 Overview: Low CI. CVP low. A/p Epi gtt off. Start BB. Pre-op testing 11/14/2014 08/23/2016 Overview: Images from the original note were not included. [facility] Surgeon: Modesto Cifuentes M.D. Informed Consent Completed: Yes STS Score: unsupported CAD: No Is intended procedure a CABG: No - is a beta hue ordered? No - reason: not indicated H & P completed: Yes 10/28/14 PA/LAT: Completed CT: Completed MRI: N/A LE US: N/A Cath: Yes - reviewed: Yes Echo:Completed EKG: Completed EF %: 65 PI's: N/A Carotid: N/A Mapping: N/A Dental: Completed PFT's: N/A No results for input(s): WBC, HB, HCT, PLT, INR, CREAT in the last 72 hours. UA: Normal HCG:N/A ABO/ABO Confirmed: Yes Blood ordered: No SA Swab: Yes - results: Negative Last Dose of Anticoagulation: OTC 11/12/14 Op Note: N/A Pacemaker Check: N/A Consults: none DM: Yes, A1c: 6.6% Cardiac Surgical prep: N/A SIGNATURE: JERSON Tian CHECKED BY: [email or web address] DATE of SERVICE: 11/14/2014 TIME of SERVICE: 10:59 AM discharge planning 11/10/2014 11/12/2014 Overview: 64yo male without any concerns presently Preop testing 11/10/2014 11/12/2014 Overview: Images from the original note were not included. [facility] Surgeon: Modesto Cifuentes M.D. Informed Consent Completed: pending STS Score: unsupported CAD: Yes - CAD on Problem List: Yes Is intended procedure a CABG: No - is a beta hue ordered? No - reason: not indicated H & P completed: Yes PA/LAT: Completed CT: Completed MRI: N/A LE US: N/A Cath: Yes - reviewed: Yes Echo:Completed EKG: Completed EF %: 65 PI's: Completed Carotid: N/A Mapping: N/A Dental: Pending PFT's: Completed No results for input(s): WBC, HB, HCT, PLT, INR, CREAT in the last 72 hours. UA: Normal HCG:N/A ABO/ABO Confirmed: Yes Blood ordered: No SA Swab: Yes - results: Pending Last Dose of Anticoagulation: vit basa LD 11/03 Op Note: N/A Pacemaker Check: N/A Consults: none DM: No Cardiac Surgical prep: N/A SIGNATURE: Kate Smith RN CHECKED BY: DATE of SERVICE: 11/10/2014 TIME of SERVICE: 10:05 AM Right rotator cuff tear 12/31/2013 08/25/19 17 Pain in joint, shoulder region 12/16/2013 0 08/24/2016 Essential hypertension, benign 12/03/2013 0 11/19/2014 Overview: Home RX; Nortvasc, ACEi A/P: NTg gtt to keep MAPS 65-75. Wean off. Hydralazine prn. Start BB when off Epi. Pain in joint, lower leg 04/16/2013 017 Degenerative tear of medial meniscus 04/16/2013 11/13/2020 Allergic rhinitis 06/29/2012 04/21/2022 Anxiety 07/08/2011 11/13/2020 Overview: Home Rx; Prozac. A/p Restarted Prozac. Esophagitis, unspecified 04/23/2009 017 Acute gastritis without mention of hemorrhage 08/24/2016 Trochanteric bursitis 03/05/2009 11/12/2014 Nontoxic uninodular goiter 01/16/200902/24 Overview: 08/13/19 US thyroid right mid-pole thyroid solid nodule 9 x 7 x 4 mm stable since 2016 Last Assessment & Plan: Assessment: under surveillance Nonallopathic lesion of sacr al region, not elsewhere classified 01/02/2009 11/13/2020 Osteoarthrosis, unspecified whether generalized or localized, unspecified site 11/12/2008 11/13/2020 ABSCESS GROIN 07/23/2008 08/23/2016 Obesity, unspecified 07/15/2008 09/16/2020 Pain in joint, pelvic region and thigh 08/24/2016 Aneurysm of thoracic aorta 12/05/200704/21 Overview: 05/26/2020 echocardiogram LV size and systolic function normal, ejection fraction 62%, grade 1 ventricular diastolic dysfunction. RV size and RV SF normal, aorta borderline dilated 3.8 cm: Status post aortic valve repair with no regurgitation, peak gradient 33 mmHg, mean gradient 19 mmHg . 07/23/2019 nuclear stress: No inducible ischemia or evidence of scarred myocardium, LV size normal LV SF normal. Ejection fraction 70% 11/17/2014 Mini-BAV repair, Ascending aortic replacement Last Assessment & Plan: Assessment: s/p ascending aorta repair in 2014. 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 Assessment: c/o dry eye Plan: ordered refresh eye drops Last Assessment & Plan: Assessment: prosthetic left eye, eye gtts as needed Generalized anxiety disorder Overview: Anxiety, Generalized Unspecified asthma(493.90) 09/02 Asthma 08/24/2016 documented as of this encounter (statuses as of 07/19/2022) [facility]11-10-2022 History of Past illness Narrative* Problem Noted Date Resolved Date Depressive disorder 04/21/2022 04/21/2022 Postoperative pneumonia 04/21/2022 04/21/20 Viral infection 04/21/2022 04/21/2022 Lumbosacral spondylosis with radiculopathy 03/2804/27/2022 Dependence on continuous pos itive airway pressure ventilation 03/12/2022 04/21/2022 Dependence on other enabling machines and device s 03/12/2022 04/21/2022 Other specified postprocedural states 03/12/2022 04/21/2022 Personal history of pulmonary embolism 04/21/2022 Rheumatoid arthritis, unspecified 03/12/2022 04/21/2022 Ureteric colic 12/20/2021 04/21/2022 Unspecified abdominal pain 12/08/202104/21 Dyspnea, unspecified 04/05/2021 04/21/2022 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 02/17/2017 12/05/2019 Overview: Added automatically from request for surgery [id number] Acute pain of left knee 12/26/2016 11/14/19 Chronic right shoulder pain 12/26/2016 04/0 12/2020 Gross hematuria 11/24/2016 11/13/2020 Malignant neoplasm of kidney excluding renal pel vis 10/21/2016 02/27/2017 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, without long-term current use of insulin 09/30/2016 09/30/2016 Neuropathy 09/30/2016 11/13/2020 Last Assessment & Plan: Assessment: stable on rx Asthma with COPD with exacerbation 08/24/2016 02/27/2017 Counseling and coordination of care 12/15/2014 08/24/2016 SUMMARY 11/21/2014 08/24/2016 Overview: Indication for hospital admission/procedure: Aortic aneurysm LVEF: 65% LVH RVF: Normal Important/Relevant PMH/PSH: BAV, Congenital anomaly of aorta, SIVAKUMAR, Asthma, HTN, HPL, DM, anxiety Preoperative Hospital Course Procedure/Surgeries: 11/17/2014 Mini-BAV repair, Ascending aortic replacement Airway Difficulty: No OR Course: Coagulopathy/bleeding requiring correction with 20u cryo, 8u FFP, 4u plts, 3uprbcs and 2 pump runs for repair of aortic cannulation site Pacing wires: out Postoperative Course/General Impression: S/p AVr/Asc aorta replacement. Plan to wean o2, pep, oob, increase diuresis, cont BB, pain and glucose control. Issues to communicate at signout: CT removed CPAP at night echo done CTA done PT rec acute rehab Needs much encouragement wires out 11/23 d/c to acute rehab today Discharge planning 11/21/2014 05/03/2016 Overview: Pt from [place], [place]. PT rec acute rehab; CM working on placement. Leaving for [facility] in-pt rehab today Hypertension 11/20/2014 02/27/2017 Overview: History: pre op on monopril, norv, Assessment: normotensive currently Plan: Cont BB , cont lasix Atelectasis 11/18/2014 11/19/2014 Overview: Bilateral on CXR. A/P: PEP, EZPAP OOBTC. Volume overload 11/18/2014 08/24/2016 Overview: History: post op Assessment: wt up 5 kg from pre op Plan: cont diuresis On mechanically assisted ventilation 11/17/2014 11/19/2014 Overview: Grade 1 airway. WTE when awake and stable. Extubated on DOS. CPAP at night PEP. Cardiac insufficiency following cardiac surgery 11/17/2014 11/20/2014 Overview: Low CI. CVP low. A/p Epi gtt off. Start BB. Pre-op testing 11/14/2014 08/23/2016 Overview: Images from the original note were not included. [facility] Surgeon: Modesto Cifuentes M.D. Informed Consent Completed: Yes STS Score: unsupported CAD: No Is intended procedure a CABG: No - is a beta hue ordered? No - reason: not indicated H & P completed: Yes 10/28/14 PA/LAT: Completed CT: Completed MRI: N/A LE US: N/A Cath: Yes - reviewed: Yes Echo:Completed EKG: Completed EF %: 65 PI's: N/A Carotid: N/A Mapping: N/A Dental: Completed PFT's: N/A No results for input(s): WBC, HB, HCT, PLT, INR, CREAT in the last 72 hours. UA: Normal HCG:N/A ABO/ABO Confirmed: Yes Blood ordered: No SA Swab: Yes - results: Negative Last Dose of Anticoagulation: OTC 11/12/14 Op Note: N/A Pacemaker Check: N/A Consults: none DM: Yes, A1c: 6.6% Cardiac Surgical prep: N/A SIGNATURE: JERSON Tian CHECKED BY: [email or web address] DATE of SERVICE: 11/14/2014 TIME of SERVICE: 10:59 AM discharge planning 11/10/2014 11/12/2014 Overview: 64yo male without any concerns presently Preop testing 11/10/2014 11/12/2014 Overview: Images from the original note were not included. [facility] Surgeon: Modesto Cifuentes M.D. Informed Consent Completed: pending STS Score: unsupported CAD: Yes - CAD on Problem List: Yes Is intended procedure a CABG: No - is a beta hue ordered? No - reason: not indicated H & P completed: Yes PA/LAT: Completed CT: Completed MRI: N/A LE US: N/A Cath: Yes - reviewed: Yes Echo:Completed EKG: Completed EF %: 65 PI's: Completed Carotid: N/A Mapping: N/A Dental: Pending PFT's: Completed No results for input(s): WBC, HB, HCT, PLT, INR, CREAT in the last 72 hours. UA: Normal HCG:N/A ABO/ABO Confirmed: Yes Blood ordered: No SA Swab: Yes - results: Pending Last Dose of Anticoagulation: vit basa LD 11/03 Op Note: N/A Pacemaker Check: N/A Consults: none DM: No Cardiac Surgical prep: N/A SIGNATURE: Kate Smith RN CHECKED BY: DATE of SERVICE: 11/10/2014 TIME of SERVICE: 10:05 AM Right rotator cuff tear 12/31/2013 08/25/19 17 Pain in joint, shoulder region 12/16/2013 0 08/24/2016 Essential hypertension, benign 12/03/2013 0 11/19/2014 Overview: Home RX; Nortvasc, ACEi A/P: NTg gtt to keep MAPS 65-75. Wean off. Hydralazine prn. Start BB when off Epi. Pain in joint, lower leg 04/16/2013 017 Degenerative tear of medial meniscus 04/16/2013 11/13/2020 Allergic rhinitis 06/29/2012 04/21/2022 Anxiety 07/08/2011 11/13/2020 Overview: Home Rx; Prozac. A/p Restarted Prozac. Esophagitis, unspecified 04/23/2009 017 Acute gastritis without mention of hemorrhage 08/24/2016 Trochanteric bursitis 03/05/2009 11/12/2014 Nontoxic uninodular goiter 01/16/200902/24 Overview: 08/13/19 US thyroid right mid-pole thyroid solid nodule 9 x 7 x 4 mm stable since 2016 Last Assessment & Plan: Assessment: under surveillance Nonallopathic lesion of sacr al region, not elsewhere classified 01/02/2009 11/13/2020 Osteoarthrosis, unspecified whether generalized or localized, unspecified site 11/12/2008 11/13/2020 ABSCESS GROIN 07/23/2008 08/23/2016 Obesity, unspecified 07/15/2008 09/16/2020 Pain in joint, pelvic region and thigh 08/24/2016 Aneurysm of thoracic aorta 12/05/200704/21 Overview: 05/26/2020 echocardiogram LV size and systolic function normal, ejection fraction 62%, grade 1 ventricular diastolic dysfunction. RV size and RV SF normal, aorta borderline dilated 3.8 cm: Status post aortic valve repair with no regurgitation, peak gradient 33 mmHg, mean gradient 19 mmHg . 07/23/2019 nuclear stress: No inducible ischemia or evidence of scarred myocardium, LV size normal LV SF normal. Ejection fraction 70% 11/17/2014 Mini-BAV repair, Ascending aortic replacement Last Assessment & Plan: Assessment: s/p ascending aorta repair in 2014. 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 Assessment: c/o dry eye Plan: ordered refresh eye drops Last Assessment & Plan: Assessment: prosthetic left eye, eye gtts as needed Generalized anxiety disorder Overview: Anxiety, Generalized Unspecified asthma(493.90) 09/02 Asthma 08/24/2016 documented as of this encounter (statuses as of 07/29/2022) [facility]11[facility] History of Past illness Narrative* Problem Noted Date Resolved Date Depressive disorder 04/21/2022 04/21/2022 Postoperative pneumonia 04/21/2022 04/21/20 Viral infection 04/21/2022 04/21/2022 Lumbosacral spondylosis with radiculopathy 03/2804/27/2022 Dependence on continuous pos itive airway pressure ventilation 03/12/2022 04/21/2022 Dependence on other enabling machines and device s 03/12/2022 04/21/2022 Other specified postprocedural states 03/12/2022 04/21/2022 Personal history of pulmonary embolism 04/21/2022 Rheumatoid arthritis, unspecified 03/12/2022 04/21/2022 Ureteric colic 12/20/2021 04/21/2022 Unspecified abdominal pain 12/08/202104/21 Dyspnea, unspecified 04/05/2021 04/21/2022 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 02/17/2017 12/05/2019 Overview: Added automatically from request for surgery [id number] Acute pain of left knee 12/26/2016 11/14/19 21 Chronic right shoulder pain 12/26/2016 04/0 12/2020 Gross hematuria 11/24/2016 11/13/2020 Malignant neoplasm of kidney excluding renal pel vis 10/21/2016 02/27/2017 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, without long-term current use of insulin 09/30/2016 09/30/2016 Neuropathy 09/30/2016 11/13/2020 Last Assessment & Plan: Assessment: stable on rx Asthma with COPD with exacerbation 08/24/2016 02/27/2017 Counseling and coordination of care 12/15/2014 08/24/2016 SUMMARY 11/21/2014 08/24/2016 Overview: Indication for hospital admission/procedure: Aortic aneurysm LVEF: 65% LVH RVF: Normal Important/Relevant PMH/PSH: BAV, Congenital anomaly of aorta, SIVAKUMAR, Asthma, HTN, HPL, DM, anxiety Preoperative Hospital Course Procedure/Surgeries: 11/17/2014 Mini-BAV repair, Ascending aortic replacement Airway Difficulty: No OR Course: Coagulopathy/bleeding requiring correction with 20u cryo, 8u FFP, 4u plts, 3uprbcs and 2 pump runs for repair of aortic cannulation site Pacing wires: out Postoperative Course/General Impression: S/p AVr/Asc aorta replacement. Plan to wean o2, pep, oob, increase diuresis, cont BB, pain and glucose control. Issues to communicate at signout: CT removed CPAP at night echo done CTA done PT rec acute rehab Needs much encouragement wires out 11/23 d/c to acute rehab today Discharge planning 11/21/2014 05/03/2016 Overview: Pt from [place], [place]. PT rec acute rehab; CM working on placement. Leaving for [facility] in-pt rehab today Hypertension 11/20/2014 02/27/2017 Overview: History: pre op on monopril, norv, Assessment: normotensive currently Plan: Cont BB , cont lasix Atelectasis 11/18/2014 11/19/2014 Overview: Bilateral on CXR. A/P: PEP, EZPAP OOBTC. Volume overload 11/18/2014 08/24/2016 Overview: History: post op Assessment: wt up 5 kg from pre op Plan: cont diuresis On mechanically assisted ventilation 11/17/2014 11/19/2014 Overview: Grade 1 airway. WTE when awake and stable. Extubated on DOS. CPAP at night PEP. Cardiac insufficiency following cardiac surgery 11/17/2014 11/20/2014 Overview: Low CI. CVP low. A/p Epi gtt off. Start BB. Pre-op testing 11/14/2014 08/23/2016 Overview: Images from the original note were not included. [facility] Surgeon: Modesto Cifuentes M.D. Informed Consent Completed: Yes STS Score: unsupported CAD: No Is intended procedure a CABG: No - is a beta hue ordered? No - reason: not indicated H & P completed: Yes 10/28/14 PA/LAT: Completed CT: Completed MRI: N/A LE US: N/A Cath: Yes - reviewed: Yes Echo:Completed EKG: Completed EF %: 65 PI's: N/A Carotid: N/A Mapping: N/A Dental: Completed PFT's: N/A No results for input(s): WBC, HB, HCT, PLT, INR, CREAT in the last 72 hours. UA: Normal HCG:N/A ABO/ABO Confirmed: Yes Blood ordered: No SA Swab: Yes - results: Negative Last Dose of Anticoagulation: OTC 11/12/14 Op Note: N/A Pacemaker Check: N/A Consults: none DM: Yes, A1c: 6.6% Cardiac Surgical prep: N/A SIGNATURE: JERSON Tian CHECKED BY: [email or web address] DATE of SERVICE: 11/14/2014 TIME of SERVICE: 10:59 AM discharge planning 11/10/2014 11/12/2014 Overview: 64yo male without any concerns presently Preop testing 11/10/2014 11/12/2014 Overview: Images from the original note were not included. [facility] Surgeon: Modesto iCfuentes M.D. Informed Consent Completed: pending STS Score: unsupported CAD: Yes - CAD on Problem List: Yes Is intended procedure a CABG: No - is a beta hue ordered? No - reason: not indicated H & P completed: Yes PA/LAT: Completed CT: Completed MRI: N/A LE US: N/A Cath: Yes - reviewed: Yes Echo:Completed EKG: Completed EF %: 65 PI's: Completed Carotid: N/A Mapping: N/A Dental: Pending PFT's: Completed No results for input(s): WBC, HB, HCT, PLT, INR, CREAT in the last 72 hours. UA: Normal HCG:N/A ABO/ABO Confirmed: Yes Blood ordered: No SA Swab: Yes - results: Pending Last Dose of Anticoagulation: vit basa LD 11/03 Op Note: N/A Pacemaker Check: N/A Consults: none DM: No Cardiac Surgical prep: N/A SIGNATURE: Kate Smith RN CHECKED BY: DATE of SERVICE: 11/10/2014 TIME of SERVICE: 10:05 AM Right rotator cuff tear 12/31/2013 08/25/19 17 Pain in joint, shoulder region 12/16/2013 0 08/24/2016 Essential hypertension, benign 12/03/2013 0 11/19/2014 Overview: Home RX; Nortvasc, ACEi A/P: NTg gtt to keep MAPS 65-75. Wean off. Hydralazine prn. Start BB when off Epi. Pain in joint, lower leg 04/16/2013 017 Degenerative tear of medial meniscus 04/16/2013 11/13/2020 Allergic rhinitis 06/29/2012 04/21/2022 Anxiety 07/08/2011 11/13/2020 Overview: Home Rx; Prozac. A/p Restarted Prozac. Esophagitis, unspecified 04/23/2009 017 Acute gastritis without mention of hemorrhage 08/24/2016 Trochanteric bursitis 03/05/2009 11/12/2014 Nontoxic uninodular goiter 01/16/200902/24 Overview: 08/13/19 US thyroid right mid-pole thyroid solid nodule 9 x 7 x 4 mm stable since 2017 Last Assessment & Plan: Assessment: under surveillance Nonallopathic lesion of sacr al region, not elsewhere classified 01/02/2009 11/13/2020 Osteoarthrosis, unspecified whether generalized or localized, unspecified site 11/12/2008 11/13/2020 ABSCESS GROIN 07/23/2008 08/23/2016 Obesity, unspecified 07/15/2008 09/16/2020 Pain in joint, pelvic region and thigh 9 08/24/2016 Aneurysm of thoracic aorta 12/05/200704/21 Overview: 05/26/2020 echocardiogram LV size and systolic function normal, ejection fraction 62%, grade 1 ventricular diastolic dysfunction. RV size and RV SF normal, aorta borderline dilated 3.8 cm: Status post aortic valve repair with no regurgitation, peak gradient 33 mmHg, mean gradient 19 mmHg . 07/23/2019 nuclear stress: No inducible ischemia or evidence of scarred myocardium, LV size normal LV SF normal. Ejection fraction 70% 11/17/2014 Mini-BAV repair, Ascending aortic replacement Last Assessment & Plan: Assessment: s/p ascending aorta repair in 2014. 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 Assessment: c/o dry eye Plan: ordered refresh eye drops Last Assessment & Plan: Assessment: prosthetic left eye, eye gtts as needed Generalized anxiety disorder Overview: Anxiety, Generalized Unspecified asthma(493.90) 09/02 Asthma 08/24/2016 documented as of this encounter (statuses as of 08/24/2022) [facility]11-10-2022 History of Past illness Narrative* Problem Noted Date Resolved Date Depressive disorder 04/21/2022 04/21/2022 Postoperative pneumonia 04/21/2022 04/21/20 22 Viral infection 04/21/2022 04/21/2022 Lumbosacral spondylosis with radiculopathy 03/2804/27/2022 Dependence on continuous pos itive airway pressure ventilation 03/12/2022 04/21/2022 Dependence on other enabling machines and device s 03/12/2022 04/21/2022 Other specified postprocedural states 03/12/2022 04/21/2022 Personal history of pulmonary embolism 04/21/2022 Rheumatoid arthritis, unspecified 03/12/2022 04/21/2022 Ureteric colic 12/20/2021 04/21/2022 Unspecified abdominal pain 12/08/202104/21 Dyspnea, unspecified 04/05/2021 04/21/2022 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 02/17/2017 12/05/2019 Overview: Added automatically from request for surgery [id number] Acute pain of left knee 12/26/2016 11/14/19 Chronic right shoulder pain 12/26/2016 04/0 12/2020 Gross hematuria 11/24/2016 11/13/2020 Malignant neoplasm of kidney excluding renal pel vis 10/21/2016 02/27/2017 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, without long-term current use of insulin 09/30/2016 09/30/2016 Neuropathy 09/30/2016 11/13/2020 Last Assessment & Plan: Assessment: stable on rx Asthma with COPD with exacerbation 08/24/2016 02/27/2017 Counseling and coordination of care 12/15/2014 08/24/2016 SUMMARY 11/21/2014 08/24/2016 Overview: Indication for hospital admission/procedure: Aortic aneurysm LVEF: 65% LVH RVF: Normal Important/Relevant PMH/PSH: BAV, Congenital anomaly of aorta, SIVAKUMAR, Asthma, HTN, HPL, DM, anxiety Preoperative Hospital Course Procedure/Surgeries: 11/17/2014 Mini-BAV repair, Ascending aortic replacement Airway Difficulty: No OR Course: Coagulopathy/bleeding requiring correction with 20u cryo, 8u FFP, 4u plts, 3uprbcs and 2 pump runs for repair of aortic cannulation site Pacing wires: out Postoperative Course/General Impression: S/p AVr/Asc aorta replacement. Plan to wean o2, pep, oob, increase diuresis, cont BB, pain and glucose control. Issues to communicate at signout: CT removed CPAP at night echo done CTA done PT rec acute rehab Needs much encouragement wires out 11/23 d/c to acute rehab today Discharge planning 11/21/2014 05/03/2016 Overview: Pt from [place], [place]. PT rec acute rehab; CM working on placement. Leaving for [facility] in-[facility] rehab today Hypertension 11/20/2014 02/27/2017 Overview: History: pre op on monopril, norv, Assessment: normotensive currently Plan: Cont BB , cont lasix Atelectasis 11/18/2014 11/19/2014 Overview: Bilateral on CXR. A/P: PEP, EZPAP OOBTC. Volume overload 11/18/2014 08/24/2016 Overview: History: post op Assessment: wt up 5 kg from pre op Plan: cont diuresis On mechanically assisted ventilation 11/17/2014 11/19/2014 Overview: Grade 1 airway. WTE when awake and stable. Extubated on DOS. CPAP at night PEP. Cardiac insufficiency following cardiac surgery 11/17/2014 11/20/2014 Overview: Low CI. CVP low. A/p Epi gtt off. Start BB. Pre-op testing 11/14/2014 08/23/2016 Overview: Images from the original note were not included. [facility] PRE-OP CHECKLIST Surgeon: Modesto Cifuentes M.D. Informed Consent Completed: Yes STS Score: unsupported CAD: No Is intended procedure a CABG: No - is a beta hue ordered? No - reason: not indicated H & P completed: Yes 10/28/14 PA/LAT: Completed CT: Completed MRI: N/A LE US: N/A Cath: Yes - reviewed: Yes Echo:Completed EKG: Completed EF %: 65 PI's: N/A Carotid: N/A Mapping: N/A Dental: Completed PFT's: N/A No results for input(s): WBC, HB, HCT, PLT, INR, CREAT in the last 72 hours. UA: Normal HCG:N/A ABO/ABO Confirmed: Yes Blood ordered: No SA Swab: Yes - results: Negative Last Dose of Anticoagulation: OTC 11/12/14 Op Note: N/A Pacemaker Check: N/A Consults: none DM: Yes, A1c: 6.6% Cardiac Surgical prep: N/A SIGNATURE: JERSON Tian CHECKED BY: [email or web address] DATE of SERVICE: 11/14/2014 TIME of SERVICE: 10:59 AM discharge planning 11/10/2014 11/12/2014 Overview: 64yo male without any concerns presently Preop testing 11/10/2014 11/12/2014 Overview: Images from the original note were not included. [facility] Surgeon: Modesto Cifuentes M.D. Informed Consent Completed: pending STS Score: unsupported CAD: Yes - CAD on Problem List: Yes Is intended procedure a CABG: No - is a beta hue ordered? No - reason: not indicated H & P completed: Yes PA/LAT: Completed CT: Completed MRI: N/A LE US: N/A Cath: Yes - reviewed: Yes Echo:Completed EKG: Completed EF %: 65 PI's: Completed Carotid: N/A Mapping: N/A Dental: Pending PFT's: Completed No results for input(s): WBC, HB, HCT, PLT, INR, CREAT in the last 72 hours. UA: Normal HCG:N/A ABO/ABO Confirmed: Yes Blood ordered: No SA Swab: Yes - results: Pending Last Dose of Anticoagulation: vit basa LD 11/03 Op Note: N/A Pacemaker Check: N/A Consults: none DM: No Cardiac Surgical prep: N/A SIGNATURE: Kate Smith RN CHECKED BY: DATE of SERVICE: 11/10/2014 TIME of SERVICE: 10:05 AM Right rotator cuff tear 12/31/2013 08/25/19 17 Pain in joint, shoulder region 12/16/2013 0 08/24/2016 Essential hypertension, benign 12/03/2013 0 11/19/2014 Overview: Home RX; Nortvasc, ACEi A/P: NTg gtt to keep MAPS 65-75. Wean off. Hydralazine prn. Start BB when off Epi. Pain in joint, lower leg 04/16/2013 017 Degenerative tear of medial meniscus 04/16/2013 11/13/2020 Allergic rhinitis 06/29/2012 04/21/2022 Anxiety 07/08/2011 11/13/2020 Overview: Home Rx; Prozac. A/p Restarted Prozac. Esophagitis, unspecified 04/23/2009 017 Acute gastritis without mention of hemorrhage 08/24/2016 Trochanteric bursitis 03/05/2009 11/12/2014 Nontoxic uninodular goiter 01/16/200902/24 Overview: 08/13/19 thyroid right mid-pole thyroid solid nodule 9 x 7 x 4 mm stable since 2016 Last Assessment & Plan: Assessment: under surveillance Nonallopathic lesion of sacr al region, not elsewhere classified 01/02/2009 11/13/2020 Osteoarthrosis, unspecified whether generalized or localized, unspecified site 11/12/2008 11/13/2020 ABSCESS GROIN 07/23/2008 08/23/2016 Obesity, unspecified 07/15/2008 09/16/2020 Pain in joint, pelvic region and thigh 9 08/24/2016 Aneurysm of thoracic aorta 12/05/200704/21 Overview: 05/26/2020 echocardiogram LV size and systolic function normal, ejection fraction 62%, grade 1 ventricular diastolic dysfunction. RV size and RV SF normal, aorta borderline dilated 3.8 cm: Status post aortic valve repair with no regurgitation, peak gradient 33 mmHg, mean gradient 19 mmHg . 07/23/2019 nuclear stress: No inducible ischemia or evidence of scarred myocardium, LV size normal LV SF normal. Ejection fraction 70% 11/17/2014 Mini-BAV repair, Ascending aortic replacement Last Assessment & Plan: Assessment: s/p ascending aorta repair in 2014. 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 Assessment: c/o dry eye Plan: ordered refresh eye drops Last Assessment & Plan: Assessment: prosthetic left eye, eye gtts as needed Generalized anxiety disorder Overview: Anxiety, Generalized Unspecified asthma(493.90) 09/02 Asthma 08/24/2016 documented as of this encounter (statuses as of 08/25/2022) [facility]11-10-2022 History of Past illness Narrative* Problem Noted Date Resolved Date Depressive disorder 04/21/2022 04/21/2022 Postoperative pneumonia 04/21/2022 04/21/20 22 Viral infection 04/21/2022 04/21/2022 Lumbosacral spondylosis with radiculopathy 03/2804/27/2022 Dependence on continuous pos itive airway pressure ventilation 03/12/2022 04/21/2022 Dependence on other enabling machines and device s 03/12/2022 04/21/2022 Other specified postprocedural states 03/12/2022 04/21/2022 Personal history of pulmonary embolism 04/21/2022 Rheumatoid arthritis, unspecified 03/12/2022 04/21/2022 Ureteric colic 12/20/2021 04/21/2022 Unspecified abdominal pain 12/08/202104/21 Dyspnea, unspecified 04/05/2021 04/21/2022 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 02/17/2017 12/05/2019 Overview: Added automatically from request for surgery [id number] Acute pain of left knee 12/26/2016 11/14/19 Chronic right shoulder pain 12/26/2016 04/12/2020 Gross hematuria 11/24/2016 11/13/2020 Malignant neoplasm of kidney excluding renal pel vis 10/21/2016 02/27/2017 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, without long-term current use of insulin 09/30/2016 09/30/2016 Neuropathy 09/30/2016 11/13/2020 Last Assessment & Plan: Assessment: stable on rx Asthma with COPD with exacerbation 08/24/2016 02/27/2017 Counseling and coordination of care 12/15/2014 08/24/2016 SUMMARY 11/21/2014 08/24/2016 Overview: Indication for hospital admission/procedure: Aortic aneurysm LVEF: 65% LVH RVF: Normal Important/Relevant PMH/PSH: BAV, Congenital anomaly of aorta, SIVAKUMAR, Asthma, HTN, HPL, DM, anxiety Preoperative Hospital Course Procedure/Surgeries: 11/17/2014 Mini-BAV repair, Ascending aortic replacement Airway Difficulty: No OR Course: Coagulopathy/bleeding requiring correction with 20u cryo, 8u FFP, 4u plts, 3uprbcs and 2 pump runs for repair of aortic cannulation site Pacing wires: out Postoperative Course/General Impression: S/p AVr/Asc aorta replacement. Plan to wean o2, pep, oob, increase diuresis, cont BB, pain and glucose control. Issues to communicate at signout: CT removed CPAP at night echo done CTA done PT rec acute rehab Needs much encouragement wires out 11/23 d/c to acute rehab today Discharge planning 11/21/2014 05/03/2016 Overview: Pt from [place], [place]. PT rec acute rehab; CM working on placement. Leaving for [facility] in-pt rehab today Hypertension 11/20/2014 02/27/2017 Overview: History: pre op on monopril, norv, Assessment: normotensive currently Plan: Cont BB , cont lasix Atelectasis 11/18/2014 11/19/2014 Overview: Bilateral on CXR. A/P: PEP, EZPAP OOBTC. Volume overload 11/18/2014 08/24/2016 Overview: History: post op Assessment: wt up 5 kg from pre op Plan: cont diuresis On mechanically assisted ventilation 11/17/2014 11/19/2014 Overview: Grade 1 airway. WTE when awake and stable. Extubated on DOS. CPAP at night PEP. Cardiac insufficiency following cardiac surgery 11/17/2014 11/20/2014 Overview: Low CI. CVP low. A/p Epi gtt off. Start BB. Pre-op testing 11/14/2014 08/23/2016 Overview: Images from the original note were not included. [facility] Surgeon: Modesto Cifuentes M.D. Informed Consent Completed: Yes STS Score: unsupported CAD: No Is intended procedure a CABG: No - is a beta hue ordered? No - reason: not indicated H & P completed: Yes 10/28/14 PA/LAT: Completed CT: Completed MRI: N/A LE US: N/A Cath: Yes - reviewed: Yes Echo:Completed EKG: Completed EF %: 65 PI's: N/A Carotid: N/A Mapping: N/A Dental: Completed PFT's: N/A No results for input(s): WBC, HB, HCT, PLT, INR, CREAT in the last 72 hours. UA: Normal HCG:N/A ABO/ABO Confirmed: Yes Blood ordered: No SA Swab: Yes - results: Negative Last Dose of Anticoagulation: OTC 11/12/14 Op Note: N/A Pacemaker Check: N/A Consults: none DM: Yes, A1c: 6.6% Cardiac Surgical prep: N/A SIGNATURE: JERSON Tian CHECKED BY: [email or web address] DATE of SERVICE: 11/14/2014 TIME of SERVICE: 10:59 AM discharge planning 11/10/2014 11/12/2014 Overview: 64yo male without any concerns presently Preop testing 11/10/2014 11/12/2014 Overview: Images from the original note were not included. [facility] PRE-OP CHECKLIST Surgeon: Modesto Cifuentes M.D. Informed Consent Completed: pending STS Score: unsupported CAD: Yes - CAD on Problem List: Yes Is intended procedure a CABG: No - is a beta hue ordered? No - reason: not indicated H & P completed: Yes PA/LAT: Completed CT: Completed MRI: N/A LE US: N/A Cath: Yes - reviewed: Yes Echo:Completed EKG: Completed EF %: 65 PI's: Completed Carotid: N/A Mapping: N/A Dental: Pending PFT's: Completed No results for input(s): WBC, HB, HCT, PLT, INR, CREAT in the last 72 hours. UA: Normal HCG:N/A ABO/ABO Confirmed: Yes Blood ordered: No SA Swab: Yes - results: Pending Last Dose of Anticoagulation: vit basa LD 11/03 Op Note: N/A Pacemaker Check: N/A Consults: none DM: No Cardiac Surgical prep: N/A SIGNATURE: Kate Smith RN CHECKED BY: DATE of SERVICE: 11/10/2014 TIME of SERVICE: 10:05 AM Right rotator cuff tear 12/31/2013 08/25/19 17 Pain in joint, shoulder region 12/16/2013 0 08/24/2016 Essential hypertension, benign 12/03/2013 0 11/19/2014 Overview: Home RX; Nortvasc, ACEi A/P: NTg gtt to keep MAPS 65-75. Wean off. Hydralazine prn. Start BB when off Epi. Pain in joint, lower leg 04/16/2013 017 Degenerative tear of medial meniscus 04/16/2013 11/13/2020 Allergic rhinitis 06/29/2012 04/21/2022 Anxiety 07/08/2011 11/13/2020 Overview: Home Rx; Prozac. A/p Restarted Prozac. Esophagitis, unspecified 04/23/2009 017 Acute gastritis without mention of hemorrhage 08/24/2016 Trochanteric bursitis 03/05/2009 11/12/2014 Nontoxic uninodular goiter 01/16/200902/24 Overview: 08/13/19 thyroid right mid-pole thyroid solid nodule 9 x 7 x 4 mm stable since 2016 Last Assessment & Plan: Assessment: under surveillance Nonallopathic lesion of sacr al region, not elsewhere classified 01/02/2009 11/13/2020 Osteoarthrosis, unspecified whether generalized or localized, unspecified site 11/12/2008 11/13/2020 ABSCESS GROIN 07/23/2008 08/23/2016 Obesity, unspecified 07/15/2008 09/16/2020 Pain in joint, pelvic region and thigh 9 08/24/2016 Aneurysm of thoracic aorta 12/05/200704/21 Overview: 05/26/2020 echocardiogram LV size and systolic function normal, ejection fraction 62%, grade 1 ventricular diastolic dysfunction. RV size and RV SF normal, aorta borderline dilated 3.8 cm: Status post aortic valve repair with no regurgitation, peak gradient 33 mmHg, mean gradient 19 mmHg . 07/23/2019 nuclear stress: No inducible ischemia or evidence of scarred myocardium, LV size normal LV SF normal. Ejection fraction 70% 11/17/2014 Mini-BAV repair, Ascending aortic replacement Last Assessment & Plan: Assessment: s/p ascending aorta repair in 2014. 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 Assessment: c/o dry eye Plan: ordered refresh eye drops Last Assessment & Plan: Assessment: prosthetic left eye, eye gtts as needed Generalized anxiety disorder Overview: Anxiety, Generalized Unspecified asthma(493.90) 09/02 Asthma 08/24/2016 documented as of this encounter (statuses as of 08/29/2022) [facility]11[facility] History of Past illness Narrative* Problem Noted Date Resolved Date Depressive disorder 04/21/2022 04/21/2022 Postoperative pneumonia 04/21/2022 04/21/20 Viral infection 04/21/2022 04/21/2022 Lumbosacral spondylosis with radiculopathy 03/2804/27/2022 Dependence on continuous pos itive airway pressure ventilation 03/12/2022 04/21/2022 Dependence on other enabling machines and device s 03/12/2022 04/21/2022 Other specified postprocedural states 03/12/2022 04/21/2022 Personal history of pulmonary embolism 2 04/21/2022 Rheumatoid arthritis, unspecified 03/12/2022 04/21/2022 Ureteric colic 12/20/2021 04/21/2022 Unspecified abdominal pain 12/08/202104/21 Dyspnea, unspecified 04/05/2021 04/21/2022 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 02/17/2017 12/05/2019 Overview: Added automatically from request for surgery [id number] Acute pain of left knee 12/26/2016 11/14/19 Chronic right shoulder pain 12/26/2016 04/0 12/2020 Gross hematuria 11/24/2016 11/13/2020 Malignant neoplasm of kidney excluding renal pel vis 10/21/2016 02/27/2017 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, without long-term current use of insulin 09/30/2016 09/30/2016 Neuropathy 09/30/2016 11/13/2020 Last Assessment & Plan: Assessment: stable on rx Asthma with COPD with exacerbation 08/24/2016 02/27/2017 Counseling and coordination of care 12/15/2014 08/24/2016 SUMMARY 11/21/2014 08/24/2016 Overview: Indication for hospital admission/procedure: Aortic aneurysm LVEF: 65% LVH RVF: Normal Important/Relevant PMH/PSH: BAV, Congenital anomaly of aorta, SIVAKUMAR, Asthma, HTN, HPL, DM, anxiety Preoperative Hospital Course Procedure/Surgeries: 11/17/2014 Mini-BAV repair, Ascending aortic replacement Airway Difficulty: No OR Course: Coagulopathy/bleeding requiring correction with 20u cryo, 8u FFP, 4u plts, 3uprbcs and 2 pump runs for repair of aortic cannulation site Pacing wires: out Postoperative Course/General Impression: S/p AVr/Asc aorta replacement. Plan to wean o2, pep, oob, increase diuresis, cont BB, pain and glucose control. Issues to communicate at signout: CT removed CPAP at night echo done CTA done PT rec acute rehab Needs much encouragement wires out 11/23 d/c to acute rehab today Discharge planning 11/21/2014 05/03/2016 Overview: Pt from [place], [place]. PT rec acute rehab; CM working on placement. Leaving for [facility] in-pt rehab today Hypertension 11/20/2014 02/27/2017 Overview: History: pre op on monopril, norv, Assessment: normotensive currently Plan: Cont BB , cont lasix Atelectasis 11/18/2014 11/19/2014 Overview: Bilateral on CXR. A/P: PEP, EZPAP OOBTC. Volume overload 11/18/2014 08/24/2016 Overview: History: post op Assessment: wt up 5 kg from pre op Plan: cont diuresis On mechanically assisted ventilation 11/17/2014 11/19/2014 Overview: Grade 1 airway. WTE when awake and stable. Extubated on DOS. CPAP at night PEP. Cardiac insufficiency following cardiac surgery 11/17/2014 11/20/2014 Overview: Low CI. CVP low. A/p Epi gtt off. Start BB. Pre-op testing 11/14/2014 08/23/2016 Overview: Images from the original note were not included. [facility] Surgeon: Modesto Cifuentes M.D. Informed Consent Completed: Yes STS Score: unsupported CAD: No Is intended procedure a CABG: No - is a beta hue ordered? No - reason: not indicated H & P completed: Yes 10/28/14 PA/LAT: Completed CT: Completed MRI: N/A LE US: N/A Cath: Yes - reviewed: Yes Echo:Completed EKG: Completed EF %: 65 PI's: N/A Carotid: N/A Mapping: N/A Dental: Completed PFT's: N/A No results for input(s): WBC, HB, HCT, PLT, INR, CREAT in the last 72 hours. UA: Normal HCG:N/A ABO/ABO Confirmed: Yes Blood ordered: No SA Swab: Yes - results: Negative Last Dose of Anticoagulation: OTC 11/12/14 Op Note: N/A Pacemaker Check: N/A Consults: none DM: Yes, A1c: 6.6% Cardiac Surgical prep: N/A SIGNATURE: JERSON Tian CHECKED BY: [email or web address] DATE of SERVICE: 11/14/2014 TIME of SERVICE: 10:59 AM discharge planning 11/10/2014 11/12/2014 Overview: 64yo male without any concerns presently Preop testing 11/10/2014 11/12/2014 Overview: Images from the original note were not included. [facility] Surgeon: Modesto Cifuentes M.D. Informed Consent Completed: pending STS Score: unsupported CAD: Yes - CAD on Problem List: Yes Is intended procedure a CABG: No - is a beta hue ordered? No - reason: not indicated H & P completed: Yes PA/LAT: Completed CT: Completed MRI: N/A LE US: N/A Cath: Yes - reviewed: Yes Echo:Completed EKG: Completed EF %: 65 PI's: Completed Carotid: N/A Mapping: N/A Dental: Pending PFT's: Completed No results for input(s): WBC, HB, HCT, PLT, INR, CREAT in the last 72 hours. UA: Normal HCG:N/A ABO/ABO Confirmed: Yes Blood ordered: No SA Swab: Yes - results: Pending Last Dose of Anticoagulation: vit basa LD 11/03 Op Note: N/A Pacemaker Check: N/A Consults: none DM: No Cardiac Surgical prep: N/A SIGNATURE: Kate Smith RN CHECKED BY: DATE of SERVICE: 11/10/2014 TIME of SERVICE: 10:05 AM Right rotator cuff tear 12/31/2013 08/25/19 17 Pain in joint, shoulder region 12/16/2013 0 08/24/2016 Essential hypertension, benign 12/03/2013 0 11/19/2014 Overview: Home RX; Nortvasc, ACEi A/P: NTg gtt to keep MAPS 65-75. Wean off. Hydralazine prn. Start BB when off Epi. Pain in joint, lower leg 04/16/2013 017 Degenerative tear of medial meniscus 04/16/2013 11/13/2020 Allergic rhinitis 06/29/2012 04/21/2022 Anxiety 07/08/2011 11/13/2020 Overview: Home Rx; Prozac. A/p Restarted Prozac. Esophagitis, unspecified 04/23/2009 017 Acute gastritis without mention of hemorrhage 08/24/2016 Trochanteric bursitis 03/05/2009 11/12/2014 Nontoxic uninodular goiter 01/16/200902/24 Overview: 08/13/19 US thyroid right mid-pole thyroid solid nodule 9 x 7 x 4 mm stable since 2016 Last Assessment & Plan: Assessment: under surveillance Nonallopathic lesion of sacr al region, not elsewhere classified 01/02/2009 11/13/2020 Osteoarthrosis, unspecified whether generalized or localized, unspecified site 11/12/2008 11/13/2020 ABSCESS GROIN 07/23/2008 08/23/2016 Obesity, unspecified 07/15/2008 09/16/2020 Pain in joint, pelvic region and thigh 9 08/24/2016 Aneurysm of thoracic aorta 12/05/200704/21 Overview: 05/26/2020 echocardiogram LV size and systolic function normal, ejection fraction 62%, grade 1 ventricular diastolic dysfunction. RV size and RV SF normal, aorta borderline dilated 3.8 cm: Status post aortic valve repair with no regurgitation, peak gradient 33 mmHg, mean gradient 19 mmHg . 07/23/2019 nuclear stress: No inducible ischemia or evidence of scarred myocardium, LV size normal LV SF normal. Ejection fraction 70% 11/17/2014 Mini-BAV repair, Ascending aortic replacement Last Assessment & Plan: Assessment: s/p ascending aorta repair in 2014. 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 Assessment: c/o dry eye Plan: ordered refresh eye drops Last Assessment & Plan: Assessment: prosthetic left eye, eye gtts as needed Generalized anxiety disorder Overview: Anxiety, Generalized Unspecified asthma(493.90) 09/02 Asthma 08/24/2016 documented as of this encounter (statuses as of 08/30/2022) [facility]11-10-2022 History of Past illness Narrative* Problem Noted Date Resolved Date Depressive disorder 04/21/2022 04/21/2022 Postoperative pneumonia 04/21/2022 04/21/20 Viral infection 04/21/2022 04/21/2022 Lumbosacral spondylosis with radiculopathy 03/2804/27/2022 Dependence on continuous pos itive airway pressure ventilation 03/12/2022 04/21/2022 Dependence on other enabling machines and device s 03/12/2022 04/21/2022 Other specified postprocedural states 03/12/2022 04/21/2022 Personal history of pulmonary embolism 04/21/2022 Rheumatoid arthritis, unspecified 03/12/2022 04/21/2022 Ureteric colic 12/20/2021 04/21/2022 Unspecified abdominal pain 12/08/202104/21 Dyspnea, unspecified 04/05/2021 04/21/2022 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 02/17/2017 12/05/2019 Overview: Added automatically from request for surgery [id number] Acute pain of left knee 12/26/2016 11/14/19 Chronic right shoulder pain 12/26/2016 04/12/2020 Gross hematuria 11/24/2016 11/13/2020 Malignant neoplasm of kidney excluding renal pel vis 10/21/2016 02/27/2017 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, without long-term current use of insulin 09/30/2016 09/30/2016 Neuropathy 09/30/2016 11/13/2020 Last Assessment & Plan: Assessment: stable on rx Asthma with COPD with exacerbation 08/24/2016 02/27/2017 Counseling and coordination of care 12/15/2014 08/24/2016 SUMMARY 11/21/2014 08/24/2016 Overview: Indication for hospital admission/procedure: Aortic aneurysm LVEF: 65% LVH RVF: Normal Important/Relevant PMH/PSH: BAV, Congenital anomaly of aorta, SIVAKUMAR, Asthma, HTN, HPL, DM, anxiety Preoperative Hospital Course Procedure/Surgeries: 11/17/2014 Mini-BAV repair, Ascending aortic replacement Airway Difficulty: No OR Course: Coagulopathy/bleeding requiring correction with 20u cryo, 8u FFP, 4u plts, 3uprbcs and 2 pump runs for repair of aortic cannulation site Pacing wires: out Postoperative Course/General Impression: S/p AVr/Asc aorta replacement. Plan to wean o2, pep, oob, increase diuresis, cont BB, pain and glucose control. Issues to communicate at signout: CT removed CPAP at night echo done CTA done PT rec acute rehab Needs much encouragement wires out 11/23 d/c to acute rehab today Discharge planning 11/21/2014 05/03/2016 Overview: Pt from [place], [place]. PT rec acute rehab; CM working on placement. Leaving for [facility] in-pt rehab today Hypertension 11/20/2014 02/27/2017 Overview: History: pre op on monopril, norv, Assessment: normotensive currently Plan: Cont BB , cont lasix Atelectasis 11/18/2014 11/19/2014 Overview: Bilateral on CXR. A/P: PEP, EZPAP OOBTC. Volume overload 11/18/2014 08/24/2016 Overview: History: post op Assessment: wt up 5 kg from pre op Plan: cont diuresis On mechanically assisted ventilation 11/17/2014 11/19/2014 Overview: Grade 1 airway. WTE when awake and stable. Extubated on DOS. CPAP at night PEP. Cardiac insufficiency following cardiac surgery 11/17/2014 11/20/2014 Overview: Low CI. CVP low. A/p Epi gtt off. Start BB. Pre-op testing 11/14/2014 08/23/2016 Overview: Images from the original note were not included. [facility] Surgeon: Modesto Cifuentes M.D. Informed Consent Completed: Yes STS Score: unsupported CAD: No Is intended procedure a CABG: No - is a beta hue ordered? No - reason: not indicated H & P completed: Yes 10/28/14 PA/LAT: Completed CT: Completed MRI: N/A LE US: N/A Cath: Yes - reviewed: Yes Echo:Completed EKG: Completed EF %: 65 PI's: N/A Carotid: N/A Mapping: N/A Dental: Completed PFT's: N/A No results for input(s): WBC, HB, HCT, PLT, INR, CREAT in the last 72 hours. UA: Normal HCG:N/A ABO/ABO Confirmed: Yes Blood ordered: No SA Swab: Yes - results: Negative Last Dose of Anticoagulation: OTC 11/12/14 Op Note: N/A Pacemaker Check: N/A Consults: none DM: Yes, A1c: 6.6% Cardiac Surgical prep: N/A SIGNATURE: JERSON Tian CHECKED BY: [email or web address] DATE of SERVICE: 11/14/2014 TIME of SERVICE: 10:59 AM discharge planning 11/10/2014 11/12/2014 Overview: 64yo male without any concerns presently Preop testing 11/10/2014 11/12/2014 Overview: Images from the original note were not included. [facility] Surgeon: Modesto Cifuentes M.D. Informed Consent Completed: pending STS Score: unsupported CAD: Yes - CAD on Problem List: Yes Is intended procedure a CABG: No - is a beta hue ordered? No - reason: not indicated H & P completed: Yes PA/LAT: Completed CT: Completed MRI: N/A LE US: N/A Cath: Yes - reviewed: Yes Echo:Completed EKG: Completed EF %: 65 PI's: Completed Carotid: N/A Mapping: N/A Dental: Pending PFT's: Completed No results for input(s): WBC, HB, HCT, PLT, INR, CREAT in the last 72 hours. UA: Normal HCG:N/A ABO/ABO Confirmed: Yes Blood ordered: No SA Swab: Yes - results: Pending Last Dose of Anticoagulation: vit basa LD 11/03 Op Note: N/A Pacemaker Check: N/A Consults: none DM: No Cardiac Surgical prep: N/A SIGNATURE: Kate Smith RN CHECKED BY: DATE of SERVICE: 11/10/2014 TIME of SERVICE: 10:05 AM Right rotator cuff tear 12/31/2013 08/25/19 17 Pain in joint, shoulder region 12/16/2013 0 08/24/2016 Essential hypertension, benign 12/03/2013 0 11/19/2014 Overview: Home RX; Nortvasc, ACEi A/P: NTg gtt to keep MAPS 65-75. Wean off. Hydralazine prn. Start BB when off Epi. Pain in joint, lower leg 04/16/2013 017 Degenerative tear of medial meniscus 04/16/2013 11/13/2020 Allergic rhinitis 06/29/2012 04/21/2022 Anxiety 07/08/2011 11/13/2020 Overview: Home Rx; Prozac. A/p Restarted Prozac. Esophagitis, unspecified 04/23/2009 017 Acute gastritis without mention of hemorrhage 08/24/2016 Trochanteric bursitis 03/05/2009 11/12/2014 Nontoxic uninodular goiter 01/16/200902/24 Overview: 08/13/19 thyroid right mid-pole thyroid solid nodule 9 x 7 x 4 mm stable since 2016 Last Assessment & Plan: Assessment: under surveillance Nonallopathic lesion of sacr al region, not elsewhere classified 01/02/2009 11/13/2020 Osteoarthrosis, unspecified whether generalized or localized, unspecified site 11/12/2008 11/13/2020 ABSCESS GROIN 07/23/2008 08/23/2016 Obesity, unspecified 07/15/2008 09/16/2020 Pain in joint, pelvic region and thigh 9 08/24/2016 Aneurysm of thoracic aorta 12/05/200704/21 Overview: 05/26/2020 echocardiogram LV size and systolic function normal, ejection fraction 62%, grade 1 ventricular diastolic dysfunction. RV size and RV SF normal, aorta borderline dilated 3.8 cm: Status post aortic valve repair with no regurgitation, peak gradient 33 mmHg, mean gradient 19 mmHg . 07/23/2019 nuclear stress: No inducible ischemia or evidence of scarred myocardium, LV size normal LV SF normal. Ejection fraction 70% 11/17/2014 Mini-BAV repair, Ascending aortic replacement Last Assessment & Plan: Assessment: s/p ascending aorta repair in 2014. 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 Assessment: c/o dry eye Plan: ordered refresh eye drops Last Assessment & Plan: Assessment: prosthetic left eye, eye gtts as needed Generalized anxiety disorder Overview: Anxiety, Generalized Unspecified asthma(493.90) 09/02 Asthma 08/24/2016 documented as of this encounter (statuses as of 09/05/2022) [facility]11-10-2022 History of Past illness Narrative* Problem Noted Date Resolved Date Depressive disorder 04/21/2022 04/21/2022 Postoperative pneumonia 04/21/2022 04/21/20 22 Viral infection 04/21/2022 04/21/2022 Lumbosacral spondylosis with radiculopathy 03/2804/27/2022 Dependence on continuous pos itive airway pressure ventilation 03/12/2022 04/21/2022 Dependence on other enabling machines and device s 03/12/2022 04/21/2022 Other specified postprocedural states 03/12/2022 04/21/2022 Personal history of pulmonary embolism 04/21/2022 Rheumatoid arthritis, unspecified 03/12/2022 04/21/2022 Ureteric colic 12/20/2021 04/21/2022 Unspecified abdominal pain 12/08/202104/21 Dyspnea, unspecified 04/05/2021 04/21/2022 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 02/17/2017 12/05/2019 Overview: Added automatically from request for surgery [id number] Acute pain of left knee 12/26/2016 11/14/19 Chronic right shoulder pain 12/26/2016 04/0 12/2020 Gross hematuria 11/24/2016 11/13/2020 Malignant neoplasm of kidney excluding renal pel vis 10/21/2016 02/27/2017 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, without long-term current use of insulin 09/30/2016 09/30/2016 Neuropathy 09/30/2016 11/13/2020 Last Assessment & Plan: Assessment: stable on rx Asthma with COPD with exacerbation 08/24/2016 02/27/2017 Counseling and coordination of care 12/15/2014 08/24/2016 SUMMARY 11/21/2014 08/24/2016 Overview: Indication for hospital admission/procedure: Aortic aneurysm LVEF: 65% LVH RVF: Normal Important/Relevant PMH/PSH: BAV, Congenital anomaly of aorta, SIVAKUMAR, Asthma, HTN, HPL, DM, anxiety Preoperative Hospital Course Procedure/Surgeries: 11/17/2014 Mini-BAV repair, Ascending aortic replacement Airway Difficulty: No OR Course: Coagulopathy/bleeding requiring correction with 20u cryo, 8u FFP, 4u plts, 3uprbcs and 2 pump runs for repair of aortic cannulation site Pacing wires: out Postoperative Course/General Impression: S/p AVr/Asc aorta replacement. Plan to wean o2, pep, oob, increase diuresis, cont BB, pain and glucose control. Issues to communicate at signout: CT removed CPAP at night echo done CTA done PT rec acute rehab Needs much encouragement wires out 11/23 d/c to acute rehab today Discharge planning 11/21/2014 05/03/2016 Overview: Pt from [place], [place]. PT rec acute rehab; CM working on placement. Leaving for [facility] in-pt rehab today Hypertension 11/20/2014 02/27/2017 Overview: History: pre op on monopril, norv, Assessment: normotensive currently Plan: Cont BB , cont lasix Atelectasis 11/18/2014 11/19/2014 Overview: Bilateral on CXR. A/P: PEP, EZPAP OOBTC. Volume overload 11/18/2014 08/24/2016 Overview: History: post op Assessment: wt up 5 kg from pre op Plan: cont diuresis On mechanically assisted ventilation 11/17/2014 11/19/2014 Overview: Grade 1 airway. WTE when awake and stable. Extubated on DOS. CPAP at night PEP. Cardiac insufficiency following cardiac surgery 11/17/2014 11/20/2014 Overview: Low CI. CVP low. A/p Epi gtt off. Start BB. Pre-op testing 11/14/2014 08/23/2016 Overview: Images from the original note were not included. [facility] Surgeon: Modesto Cifuentes M.D. Informed Consent Completed: Yes STS Score: unsupported CAD: No Is intended procedure a CABG: No - is a beta hue ordered? No - reason: not indicated H & P completed: Yes 10/28/14 PA/LAT: Completed CT: Completed MRI: N/A LE US: N/A Cath: Yes - reviewed: Yes Echo:Completed EKG: Completed EF %: 65 PI's: N/A Carotid: N/A Mapping: N/A Dental: Completed PFT's: N/A No results for input(s): WBC, HB, HCT, PLT, INR, CREAT in the last 72 hours. UA: Normal HCG:N/A ABO/ABO Confirmed: Yes Blood ordered: No SA Swab: Yes - results: Negative Last Dose of Anticoagulation: OTC 11/12/14 Op Note: N/A Pacemaker Check: N/A Consults: none DM: Yes, A1c: 6.6% Cardiac Surgical prep: N/A SIGNATURE: JERSON Tian CHECKED BY: [email or web address] DATE of SERVICE: 11/14/2014 TIME of SERVICE: 10:59 AM discharge planning 11/10/2014 11/12/2014 Overview: 64yo male without any concerns presently Preop testing 11/10/2014 11/12/2014 Overview: Images from the original note were not included. [facility] Surgeon: Modesto Cifuentes M.D. Informed Consent Completed: pending STS Score: unsupported CAD: Yes - CAD on Problem List: Yes Is intended procedure a CABG: No - is a beta hue ordered? No - reason: not indicated H & P completed: Yes PA/LAT: Completed CT: Completed MRI: N/A LE US: N/A Cath: Yes - reviewed: Yes Echo:Completed EKG: Completed EF %: 65 PI's: Completed Carotid: N/A Mapping: N/A Dental: Pending PFT's: Completed No results for input(s): WBC, HB, HCT, PLT, INR, CREAT in the last 72 hours. UA: Normal HCG:N/A ABO/ABO Confirmed: Yes Blood ordered: No SA Swab: Yes - results: Pending Last Dose of Anticoagulation: vit basa LD 11/03 Op Note: N/A Pacemaker Check: N/A Consults: none DM: No Cardiac Surgical prep: N/A SIGNATURE: Kate Smith RN CHECKED BY: DATE of SERVICE: 11/10/2014 TIME of SERVICE: 10:05 AM Right rotator cuff tear 12/31/2013 08/25/19 17 Pain in joint, shoulder region 12/16/2013 0 08/24/2016 Essential hypertension, benign 12/03/2013 0 11/19/2014 Overview: Home RX; Nortvasc, ACEi A/P: NTg gtt to keep MAPS 65-75. Wean off. Hydralazine prn. Start BB when off Epi. Pain in joint, lower leg 04/16/2013 017 Degenerative tear of medial meniscus 04/16/2013 11/13/2020 Allergic rhinitis 06/29/2012 04/21/2022 Anxiety 07/08/2011 11/13/2020 Overview: Home Rx; Prozac. A/p Restarted Prozac. Esophagitis, unspecified 04/23/2009 017 Acute gastritis without mention of hemorrhage 08/24/2016 Trochanteric bursitis 03/05/2009 11/12/2014 Nontoxic uninodular goiter 01/16/200902/24 Overview: 08/13/19 US thyroid right mid-pole thyroid solid nodule 9 x 7 x 4 mm stable since 2016 Last Assessment & Plan: Assessment: under surveillance Nonallopathic lesion of sacr al region, not elsewhere classified 01/02/2009 11/13/2020 Osteoarthrosis, unspecified whether generalized or localized, unspecified site 11/12/2008 11/13/2020 ABSCESS GROIN 07/23/2008 08/23/2016 Obesity, unspecified 07/15/2008 09/16/2020 Pain in joint, pelvic region and thigh 9 08/24/2016 Aneurysm of thoracic aorta 12/05/200704/21 Overview: 05/26/2020 echocardiogram LV size and systolic function normal, ejection fraction 62%, grade 1 ventricular diastolic dysfunction. RV size and RV SF normal, aorta borderline dilated 3.8 cm: Status post aortic valve repair with no regurgitation, peak gradient 33 mmHg, mean gradient 19 mmHg . 07/23/2019 nuclear stress: No inducible ischemia or evidence of scarred myocardium, LV size normal LV SF normal. Ejection fraction 70% 11/17/2014 Mini-BAV repair, Ascending aortic replacement Last Assessment & Plan: Assessment: s/p ascending aorta repair in 2014. 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 Assessment: c/o dry eye Plan: ordered refresh eye drops Last Assessment & Plan: Assessment: prosthetic left eye, eye gtts as needed Generalized anxiety disorder Overview: Anxiety, Generalized Unspecified asthma(493.90) 09/02 Asthma 08/24/2016 documented as of this encounter (statuses as of 09/05/2022) [facility]11-10-[facility] History of Past illness Narrative* Problem Noted Date Resolved Date Depressive disorder 04/21/2022 04/21/2022 Postoperative pneumonia 04/21/2022 04/21/20 22 Viral infection 04/21/2022 04/21/2022 Lumbosacral spondylosis with radiculopathy 03/2804/27/2022 Dependence on continuous pos itive airway pressure ventilation 03/12/2022 04/21/2022 Dependence on other enabling machines and device s 03/12/2022 04/21/2022 Other specified postprocedural states 03/12/2022 04/21/2022 Personal history of pulmonary embolism 04/21/2022 Rheumatoid arthritis, unspecified 03/12/2022 04/21/2022 Ureteric colic 12/20/2021 04/21/2022 Unspecified abdominal pain 12/08/202104/21 Dyspnea, unspecified 04/05/2021 04/21/2022 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 02/17/2017 12/05/2019 Overview: Added automatically from request for surgery [id number] Acute pain of left knee 12/26/2016 11/14/19 Chronic right shoulder pain 12/26/2016 04/0 12/2020 Gross hematuria 11/24/2016 11/13/2020 Malignant neoplasm of kidney excluding renal pel vis 10/21/2016 02/27/2017 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, without long-term current use of insulin 09/30/2016 09/30/2016 Neuropathy 09/30/2016 11/13/2020 Last Assessment & Plan: Assessment: stable on rx Asthma with COPD with exacerbation 08/24/2016 02/27/2017 Counseling and coordination of care 12/15/2014 08/24/2016 SUMMARY 11/21/2014 08/24/2016 Overview: Indication for hospital admission/procedure: Aortic aneurysm LVEF: 65% LVH RVF: Normal Important/Relevant PMH/PSH: BAV, Congenital anomaly of aorta, SIVAKUMAR, Asthma, HTN, HPL, DM, anxiety Preoperative Hospital Course Procedure/Surgeries: 11/17/2014 Mini-BAV repair, Ascending aortic replacement Airway Difficulty: No OR Course: Coagulopathy/bleeding requiring correction with 20u cryo, 8u FFP, 4u plts, 3uprbcs and 2 pump runs for repair of aortic cannulation site Pacing wires: out Postoperative Course/General Impression: S/p AVr/Asc aorta replacement. Plan to wean o2, pep, oob, increase diuresis, cont BB, pain and glucose control. Issues to communicate at signout: CT removed CPAP at night echo done CTA done PT rec acute rehab Needs much encouragement wires out 11/23 d/c to acute rehab today Discharge planning 11/21/2014 05/03/2016 Overview: Pt from [place], [place]. PT rec acute rehab; CM working on placement. Leaving for [facility] in-pt rehab today Hypertension 11/20/2014 02/27/2017 Overview: History: pre op on monopril, norv, Assessment: normotensive currently Plan: Cont BB , cont lasix Atelectasis 11/18/2014 11/19/2014 Overview: Bilateral on CXR. A/P: PEP, EZPAP OOBTC. Volume overload 11/18/2014 08/24/2016 Overview: History: post op Assessment: wt up 5 kg from pre op Plan: cont diuresis On mechanically assisted ventilation 11/17/2014 11/19/2014 Overview: Grade 1 airway. WTE when awake and stable. Extubated on DOS. CPAP at night PEP. Cardiac insufficiency following cardiac surgery 11/17/2014 11/20/2014 Overview: Low CI. CVP low. A/p Epi gtt off. Start BB. Pre-op testing 11/14/2014 08/23/2016 Overview: Images from the original note were not included. [facility] Surgeon: Modesto Cifuentes M.D. Informed Consent Completed: Yes STS Score: unsupported CAD: No Is intended procedure a CABG: No - is a beta hue ordered? No - reason: not indicated H & P completed: Yes 10/28/14 PA/LAT: Completed CT: Completed MRI: N/A LE US: N/A Cath: Yes - reviewed: Yes Echo:Completed EKG: Completed EF %: 65 PI's: N/A Carotid: N/A Mapping: N/A Dental: Completed PFT's: N/A No results for input(s): WBC, HB, HCT, PLT, INR, CREAT in the last 72 hours. UA: Normal HCG:N/A ABO/ABO Confirmed: Yes Blood ordered: No SA Swab: Yes - results: Negative Last Dose of Anticoagulation: OTC 11/12/14 Op Note: N/A Pacemaker Check: N/A Consults: none DM: Yes, A1c: 6.6% Cardiac Surgical prep: N/A SIGNATURE: JERSON Tian CHECKED BY: [email or web address] DATE of SERVICE: 11/14/2014 TIME of SERVICE: 10:59 AM discharge planning 11/10/2014 11/12/2014 Overview: 64yo male without any concerns presently Preop testing 11/10/2014 11/12/2014 Overview: Images from the original note were not included. [facility] Surgeon: Modesto Cifuentes M.D. Informed Consent Completed: pending STS Score: unsupported CAD: Yes - CAD on Problem List: Yes Is intended procedure a CABG: No - is a beta hue ordered? No - reason: not indicated H & P completed: Yes PA/LAT: Completed CT: Completed MRI: N/A LE US: N/A Cath: Yes - reviewed: Yes Echo:Completed EKG: Completed EF %: 65 PI's: Completed Carotid: N/A Mapping: N/A Dental: Pending PFT's: Completed No results for input(s): WBC, HB, HCT, PLT, INR, CREAT in the last 72 hours. UA: Normal HCG:N/A ABO/ABO Confirmed: Yes Blood ordered: No SA Swab: Yes - results: Pending Last Dose of Anticoagulation: vit basa LD 11/03 Op Note: N/A Pacemaker Check: N/A Consults: none DM: No Cardiac Surgical prep: N/A SIGNATURE: Kate Smith RN CHECKED BY: DATE of SERVICE: 11/10/2014 TIME of SERVICE: 10:05 AM Right rotator cuff tear 12/31/2013 08/25/19 17 Pain in joint, shoulder region 12/16/2013 0 08/24/2016 Essential hypertension, benign 12/03/2013 0 11/19/2014 Overview: Home RX; Nortvasc, ACEi A/P: NTg gtt to keep MAPS 65-75. Wean off. Hydralazine prn. Start BB when off Epi. Pain in joint, lower leg 04/16/2013 017 Degenerative tear of medial meniscus 04/16/2013 11/13/2020 Allergic rhinitis 06/29/2012 04/21/2022 Anxiety 07/08/2011 11/13/2020 Overview: Home Rx; Prozac. A/p Restarted Prozac. Esophagitis, unspecified 04/23/2009 017 Acute gastritis without mention of hemorrhage 08/24/2016 Trochanteric bursitis 03/05/2009 11/12/2014 Nontoxic uninodular goiter 01/16/200902/24 Overview: 08/13/19 thyroid right mid-pole thyroid solid nodule 9 x 7 x 4 mm stable since 2016 Last Assessment & Plan: Assessment: under surveillance Nonallopathic lesion of sacr al region, not elsewhere classified 01/02/2009 11/13/2020 Osteoarthrosis, unspecified whether generalized or localized, unspecified site 11/12/2008 11/13/2020 ABSCESS GROIN 07/23/2008 08/23/2016 Obesity, unspecified 07/15/2008 09/16/2020 Pain in joint, pelvic region and thigh 08/24/2016 Aneurysm of thoracic aorta 12/05/200704/21 Overview: 05/26/2020 echocardiogram LV size and systolic function normal, ejection fraction 62%, grade 1 ventricular diastolic dysfunction. RV size and RV SF normal, aorta borderline dilated 3.8 cm: Status post aortic valve repair with no regurgitation, peak gradient 33 mmHg, mean gradient 19 mmHg . 07/23/2019 nuclear stress: No inducible ischemia or evidence of scarred myocardium, LV size normal LV SF normal. Ejection fraction 70% 11/17/2014 Mini-BAV repair, Ascending aortic replacement Last Assessment & Plan: Assessment: s/p ascending aorta repair in 2014. 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 Assessment: c/o dry eye Plan: ordered refresh eye drops Last Assessment & Plan: Assessment: prosthetic left eye, eye gtts as needed Generalized anxiety disorder Overview: Anxiety, Generalized Unspecified asthma(493.90) 09/02 Asthma 08/24/2016 documented as of this encounter (statuses as of 09/06/2022) [facility]11-10-2022 History of Past illness Narrative* Problem Noted Date Resolved Date Depressive disorder 04/21/2022 04/21/2022 Postoperative pneumonia 04/21/2022 04/21/20 22 Viral infection 04/21/2022 04/21/2022 Lumbosacral spondylosis with radiculopathy 03/2804/27/2022 Dependence on continuous pos itive airway pressure ventilation 03/12/2022 04/21/2022 Dependence on other enabling machines and device s 03/12/2022 04/21/2022 Other specified postprocedural states 03/12/2022 04/21/2022 Personal history of pulmonary embolism 04/21/2022 Rheumatoid arthritis, unspecified 03/12/2022 04/21/2022 Ureteric colic 12/20/2021 04/21/2022 Unspecified abdominal pain 12/08/202104/21 Dyspnea, unspecified 04/05/2021 04/21/2022 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 02/17/2017 12/05/2019 Overview: Added automatically from request for surgery [id number] Acute pain of left knee 12/26/2016 11/14/19 21 Chronic right shoulder pain 12/26/2016 04/0 12/2020 Gross hematuria 11/24/2016 11/13/2020 Malignant neoplasm of kidney excluding renal pel vis 10/21/2016 02/27/2017 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, without long-term current use of insulin 09/30/2016 09/30/2016 Neuropathy 09/30/2016 11/13/2020 Last Assessment & Plan: Assessment: stable on rx Asthma with COPD with exacerbation 08/24/2016 02/27/2017 Counseling and coordination of care 12/15/2014 08/24/2016 SUMMARY 11/21/2014 08/24/2016 Overview: Indication for hospital admission/procedure: Aortic aneurysm LVEF: 65% LVH RVF: Normal Important/Relevant PMH/PSH: BAV, Congenital anomaly of aorta, SIVAKUMAR, Asthma, HTN, HPL, DM, anxiety Preoperative Hospital Course Procedure/Surgeries: 11/17/2014 Mini-BAV repair, Ascending aortic replacement Airway Difficulty: No OR Course: Coagulopathy/bleeding requiring correction with 20u cryo, 8u FFP, 4u plts, 3uprbcs and 2 pump runs for repair of aortic cannulation site Pacing wires: out Postoperative Course/General Impression: S/p AVr/Asc aorta replacement. Plan to wean o2, pep, oob, increase diuresis, cont BB, pain and glucose control. Issues to communicate at signout: CT removed CPAP at night echo done CTA done PT rec acute rehab Needs much encouragement wires out 11/23 d/c to acute rehab today Discharge planning 11/21/2014 05/03/2016 Overview: Pt from [place], [place]. PT rec acute rehab; CM working on placement. Leaving for [facility] in-[facility] rehab today Hypertension 11/20/2014 02/27/2017 Overview: History: pre op on monopril, norv, Assessment: normotensive currently Plan: Cont BB , cont lasix Atelectasis 11/18/2014 11/19/2014 Overview: Bilateral on CXR. A/P: PEP, EZPAP OOBTC. Volume overload 11/18/2014 08/24/2016 Overview: History: post op Assessment: wt up 5 kg from pre op Plan: cont diuresis On mechanically assisted ventilation 11/17/2014 11/19/2014 Overview: Grade 1 airway. WTE when awake and stable. Extubated on DOS. CPAP at night PEP. Cardiac insufficiency following cardiac surgery 11/17/2014 11/20/2014 Overview: Low CI. CVP low. A/p Epi gtt off. Start BB. Pre-op testing 11/14/2014 08/23/2016 Overview: Images from the original note were not included. [facility] PRE-OP CHECKLIST Surgeon: Modesto Cifuentes M.D. Informed Consent Completed: Yes STS Score: unsupported CAD: No Is intended procedure a CABG: No - is a beta hue ordered? No - reason: not indicated H & P completed: Yes 10/28/14 PA/LAT: Completed CT: Completed MRI: N/A LE US: N/A Cath: Yes - reviewed: Yes Echo:Completed EKG: Completed EF %: 65 PI's: N/A Carotid: N/A Mapping: N/A Dental: Completed PFT's: N/A No results for input(s): WBC, HB, HCT, PLT, INR, CREAT in the last 72 hours. UA: Normal HCG:N/A ABO/ABO Confirmed: Yes Blood ordered: No SA Swab: Yes - results: Negative Last Dose of Anticoagulation: OTC 11/12/14 Op Note: N/A Pacemaker Check: N/A Consults: none DM: Yes, A1c: 6.6% Cardiac Surgical prep: N/A SIGNATURE: JERSON Tian CHECKED BY: [email or web address] DATE of SERVICE: 11/14/2014 TIME of SERVICE: 10:59 AM discharge planning 11/10/2014 11/12/2014 Overview: 64yo male without any concerns presently Preop testing 11/10/2014 11/12/2014 Overview: Images from the original note were not included. [facility] PRE-OP CHECKLIST Surgeon: Modesto Cifuentes M.D. Informed Consent Completed: pending STS Score: unsupported CAD: Yes - CAD on Problem List: Yes Is intended procedure a CABG: No - is a beta hue ordered? No - reason: not indicated H & P completed: Yes PA/LAT: Completed CT: Completed MRI: N/A LE US: N/A Cath: Yes - reviewed: Yes Echo:Completed EKG: Completed EF %: 65 PI's: Completed Carotid: N/A Mapping: N/A Dental: Pending PFT's: Completed No results for input(s): WBC, HB, HCT, PLT, INR, CREAT in the last 72 hours. UA: Normal HCG:N/A ABO/ABO Confirmed: Yes Blood ordered: No SA Swab: Yes - results: Pending Last Dose of Anticoagulation: vit basa LD 11/03 Op Note: N/A Pacemaker Check: N/A Consults: none DM: No Cardiac Surgical prep: N/A SIGNATURE: Kate Smith RN CHECKED BY: DATE of SERVICE: 11/10/2014 TIME of SERVICE: 10:05 AM Right rotator cuff tear 12/31/2013 08/25/19 17 Pain in joint, shoulder region 12/16/2013 0 08/24/2016 Essential hypertension, benign 12/03/2013 0 11/19/2014 Overview: Home RX; Nortvasc, ACEi A/P: NTg gtt to keep MAPS 65-75. Wean off. Hydralazine prn. Start BB when off Epi. Pain in joint, lower leg 04/16/2013 017 Degenerative tear of medial meniscus 04/16/2013 11/13/2020 Allergic rhinitis 06/29/2012 04/21/2022 Anxiety 07/08/2011 11/13/2020 Overview: Home Rx; Prozac. A/p Restarted Prozac. Esophagitis, unspecified 04/23/2009 017 Acute gastritis without mention of hemorrhage 08/24/2016 Trochanteric bursitis 03/05/2009 11/12/2014 Nontoxic uninodular goiter 01/16/200902/24 Overview: 08/13/19 US thyroid right mid-pole thyroid solid nodule 9 x 7 x 4 mm stable since 2016 Last Assessment & Plan: Assessment: under surveillance Nonallopathic lesion of sacr al region, not elsewhere classified 01/02/2009 11/13/2020 Osteoarthrosis, unspecified whether generalized or localized, unspecified site 11/12/2008 11/13/2020 ABSCESS GROIN 07/23/2008 08/23/2016 Obesity, unspecified 07/15/2008 09/16/2020 Pain in joint, pelvic region and thigh 9 08/24/2016 Aneurysm of thoracic aorta 12/05/200704/21 Overview: 05/26/2020 echocardiogram LV size and systolic function normal, ejection fraction 62%, grade 1 ventricular diastolic dysfunction. RV size and RV SF normal, aorta borderline dilated 3.8 cm: Status post aortic valve repair with no regurgitation, peak gradient 33 mmHg, mean gradient 19 mmHg . 07/23/2019 nuclear stress: No inducible ischemia or evidence of scarred myocardium, LV size normal LV SF normal. Ejection fraction 70% 11/17/2014 Mini-BAV repair, Ascending aortic replacement Last Assessment & Plan: Assessment: s/p ascending aorta repair in 2014. 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 Assessment: c/o dry eye Plan: ordered refresh eye drops Last Assessment & Plan: Assessment: prosthetic left eye, eye gtts as needed Generalized anxiety disorder Overview: Anxiety, Generalized Unspecified asthma(493.90) 09/02 Asthma 08/24/2016 documented as of this encounter (statuses as of 09/08/2022) [facility]11-10-2022 History of Past illness Narrative* Problem Noted Date Resolved Date Depressive disorder 04/21/2022 04/21/2022 Postoperative pneumonia 04/21/2022 04/21/20 22 Viral infection 04/21/2022 04/21/2022 Lumbosacral spondylosis with radiculopathy 03/2804/27/2022 Dependence on continuous pos itive airway pressure ventilation 03/12/2022 04/21/2022 Dependence on other enabling machines and device s 03/12/2022 04/21/2022 Other specified postprocedural states 03/12/2022 04/21/2022 Personal history of pulmonary embolism 04/21/2022 Rheumatoid arthritis, unspecified 03/12/2022 04/21/2022 Ureteric colic 12/20/2021 04/21/2022 Unspecified abdominal pain 12/08/202104/21 Dyspnea, unspecified 04/05/2021 04/21/2022 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 02/17/2017 12/05/2019 Overview: Added automatically from request for surgery [id number] Acute pain of left knee 12/26/2016 11/14/19 Chronic right shoulder pain 12/26/2016 04/0 12/2020 Gross hematuria 11/24/2016 11/13/2020 Malignant neoplasm of kidney excluding renal pel vis 10/21/2016 02/27/2017 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, without long-term current use of insulin 09/30/2016 09/30/2016 Neuropathy 09/30/2016 11/13/2020 Last Assessment & Plan: Assessment: stable on rx Asthma with COPD with exacerbation 08/24/2016 02/27/2017 Counseling and coordination of care 12/15/2014 08/24/2016 SUMMARY 11/21/2014 08/24/2016 Overview: Indication for hospital admission/procedure: Aortic aneurysm LVEF: 65% LVH RVF: Normal Important/Relevant PMH/PSH: BAV, Congenital anomaly of aorta, SIVAKUMAR, Asthma, HTN, HPL, DM, anxiety Preoperative Hospital Course Procedure/Surgeries: 11/17/2014 Mini-BAV repair, Ascending aortic replacement Airway Difficulty: No OR Course: Coagulopathy/bleeding requiring correction with 20u cryo, 8u FFP, 4u plts, 3uprbcs and 2 pump runs for repair of aortic cannulation site Pacing wires: out Postoperative Course/General Impression: S/p AVr/Asc aorta replacement. Plan to wean o2, pep, oob, increase diuresis, cont BB, pain and glucose control. Issues to communicate at signout: CT removed CPAP at night echo done CTA done PT rec acute rehab Needs much encouragement wires out 11/23 d/c to acute rehab today Discharge planning 11/21/2014 05/03/2016 Overview: Pt from [place], [place]. PT rec acute rehab; CM working on placement. Leaving for [facility] in-pt rehab today Hypertension 11/20/2014 02/27/2017 Overview: History: pre op on monopril, norv, Assessment: normotensive currently Plan: Cont BB , cont lasix Atelectasis 11/18/2014 11/19/2014 Overview: Bilateral on CXR. A/P: PEP, EZPAP OOBTC. Volume overload 11/18/2014 08/24/2016 Overview: History: post op Assessment: wt up 5 kg from pre op Plan: cont diuresis On mechanically assisted ventilation 11/17/2014 11/19/2014 Overview: Grade 1 airway. WTE when awake and stable. Extubated on DOS. CPAP at night PEP. Cardiac insufficiency following cardiac surgery 11/17/2014 11/20/2014 Overview: Low CI. CVP low. A/p Epi gtt off. Start BB. Pre-op testing 11/14/2014 08/23/2016 Overview: Images from the original note were not included. [facility] Surgeon: Modesto Cifuentes M.D. Informed Consent Completed: Yes STS Score: unsupported CAD: No Is intended procedure a CABG: No - is a beta hue ordered? No - reason: not indicated H & P completed: Yes 10/28/14 PA/LAT: Completed CT: Completed MRI: N/A LE US: N/A Cath: Yes - reviewed: Yes Echo:Completed EKG: Completed EF %: 65 PI's: N/A Carotid: N/A Mapping: N/A Dental: Completed PFT's: N/A No results for input(s): WBC, HB, HCT, PLT, INR, CREAT in the last 72 hours. UA: Normal HCG:N/A ABO/ABO Confirmed: Yes Blood ordered: No SA Swab: Yes - results: Negative Last Dose of Anticoagulation: OTC 11/12/14 Op Note: N/A Pacemaker Check: N/A Consults: none DM: Yes, A1c: 6.6% Cardiac Surgical prep: N/A SIGNATURE: JERSON Tian CHECKED BY: [email or web address] DATE of SERVICE: 11/14/2014 TIME of SERVICE: 10:59 AM discharge planning 11/10/2014 11/12/2014 Overview: 64yo male without any concerns presently Preop testing 11/10/2014 11/12/2014 Overview: Images from the original note were not included. [facility] PRE-OP CHECKLIST Surgeon: Modesto Cifuentes M.D. Informed Consent Completed: pending STS Score: unsupported CAD: Yes - CAD on Problem List: Yes Is intended procedure a CABG: No - is a beta hue ordered? No - reason: not indicated H & P completed: Yes PA/LAT: Completed CT: Completed MRI: N/A LE US: N/A Cath: Yes - reviewed: Yes Echo:Completed EKG: Completed EF %: 65 PI's: Completed Carotid: N/A Mapping: N/A Dental: Pending PFT's: Completed No results for input(s): WBC, HB, HCT, PLT, INR, CREAT in the last 72 hours. UA: Normal HCG:N/A ABO/ABO Confirmed: Yes Blood ordered: No SA Swab: Yes - results: Pending Last Dose of Anticoagulation: vit basa LD 11/03 Op Note: N/A Pacemaker Check: N/A Consults: none DM: No Cardiac Surgical prep: N/A SIGNATURE: Kate Smith RN CHECKED BY: DATE of SERVICE: 11/10/2014 TIME of SERVICE: 10:05 AM Right rotator cuff tear 12/31/2013 08/25/19 17 Pain in joint, shoulder region 12/16/2013 0 08/24/2016 Essential hypertension, benign 12/03/2013 0 11/19/2014 Overview: Home RX; Nortvasc, ACEi A/P: NTg gtt to keep MAPS 65-75. Wean off. Hydralazine prn. Start BB when off Epi. Pain in joint, lower leg 04/16/2013 017 Degenerative tear of medial meniscus 04/16/2013 11/13/2020 Allergic rhinitis 06/29/2012 04/21/2022 Anxiety 07/08/2011 11/13/2020 Overview: Home Rx; Prozac. A/p Restarted Prozac. Esophagitis, unspecified 04/23/2009 017 Acute gastritis without mention of hemorrhage 08/24/2016 Trochanteric bursitis 03/05/2009 11/12/2014 Nontoxic uninodular goiter 01/16/200902/24 Overview: 08/13/19 US thyroid right mid-pole thyroid solid nodule 9 x 7 x 4 mm stable since 2016 Last Assessment & Plan: Assessment: under surveillance Nonallopathic lesion of sacr al region, not elsewhere classified 01/02/2009 11/13/2020 Osteoarthrosis, unspecified whether generalized or localized, unspecified site 11/12/2008 11/13/2020 ABSCESS GROIN 07/23/2008 08/23/2016 Obesity, unspecified 07/15/2008 09/16/2020 Pain in joint, pelvic region and thigh 9 08/24/2016 Aneurysm of thoracic aorta 12/05/200704/21 Overview: 05/26/2020 echocardiogram LV size and systolic function normal, ejection fraction 62%, grade 1 ventricular diastolic dysfunction. RV size and RV SF normal, aorta borderline dilated 3.8 cm: Status post aortic valve repair with no regurgitation, peak gradient 33 mmHg, mean gradient 19 mmHg . 07/23/2019 nuclear stress: No inducible ischemia or evidence of scarred myocardium, LV size normal LV SF normal. Ejection fraction 70% 11/17/2014 Mini-BAV repair, Ascending aortic replacement Last Assessment & Plan: Assessment: s/p ascending aorta repair in 2014. 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 Assessment: c/o dry eye Plan: ordered refresh eye drops Last Assessment & Plan: Assessment: prosthetic left eye, eye gtts as needed Generalized anxiety disorder Overview: Anxiety, Generalized Unspecified asthma(493.90) 09/02 Asthma 08/24/2016 documented as of this encounter (statuses as of 09/12/2022) [facility]11[facility] History of Past illness Narrative* Problem Noted Date Resolved Date Depressive disorder 04/21/2022 04/21/2022 Postoperative pneumonia 04/21/2022 04/21/20 22 Viral infection 04/21/2022 04/21/2022 Lumbosacral spondylosis with radiculopathy 03/2804/27/2022 Dependence on continuous pos itive airway pressure ventilation 03/12/2022 04/21/2022 Dependence on other enabling machines and device s 03/12/2022 04/21/2022 Other specified postprocedural states 03/12/2022 04/21/2022 Personal history of pulmonary embolism 04/21/2022 Rheumatoid arthritis, unspecified 03/12/2022 04/21/2022 Ureteric colic 12/20/2021 04/21/2022 Unspecified abdominal pain 12/08/202104/21 Dyspnea, unspecified 04/05/2021 04/21/2022 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 02/17/2017 12/05/2019 Overview: Added automatically from request for surgery [id number] Acute pain of left knee 12/26/2016 11/14/19 Chronic right shoulder pain 12/26/201612/2020 Gross hematuria 11/24/2016 11/13/2020 Malignant neoplasm of kidney excluding renal pel vis 10/21/2016 02/27/2017 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, without long-term current use of insulin 09/30/2016 09/30/2016 Neuropathy 09/30/2016 11/13/2020 Last Assessment & Plan: Assessment: stable on rx Asthma with COPD with exacerbation 08/24/2016 02/27/2017 Counseling and coordination of care 12/15/2014 08/24/2016 SUMMARY 11/21/2014 08/24/2016 Overview: Indication for hospital admission/procedure: Aortic aneurysm LVEF: 65% LVH RVF: Normal Important/Relevant PMH/PSH: BAV, Congenital anomaly of aorta, SIVAKUMAR, Asthma, HTN, HPL, DM, anxiety Preoperative Hospital Course Procedure/Surgeries: 11/17/2014 Mini-BAV repair, Ascending aortic replacement Airway Difficulty: No OR Course: Coagulopathy/bleeding requiring correction with 20u cryo, 8u FFP, 4u plts, 3uprbcs and 2 pump runs for repair of aortic cannulation site Pacing wires: out Postoperative Course/General Impression: S/p AVr/Asc aorta replacement. Plan to wean o2, pep, oob, increase diuresis, cont BB, pain and glucose control. Issues to communicate at signout: CT removed CPAP at night echo done CTA done PT rec acute rehab Needs much encouragement wires out 11/23 d/c to acute rehab today Discharge planning 11/21/2014 05/03/2016 Overview: Pt from [place], [place]. PT rec acute rehab; CM working on placement. Leaving for [facility] in-pt rehab today Hypertension 11/20/2014 02/27/2017 Overview: History: pre op on monopril, norv, Assessment: normotensive currently Plan: Cont BB , cont lasix Atelectasis 11/18/2014 11/19/2014 Overview: Bilateral on CXR. A/P: PEP, EZPAP OOBTC. Volume overload 11/18/2014 08/24/2016 Overview: History: post op Assessment: wt up 5 kg from pre op Plan: cont diuresis On mechanically assisted ventilation 11/17/2014 11/19/2014 Overview: Grade 1 airway. WTE when awake and stable. Extubated on DOS. CPAP at night PEP. Cardiac insufficiency following cardiac surgery 11/17/2014 11/20/2014 Overview: Low CI. CVP low. A/p Epi gtt off. Start BB. Pre-op testing 11/14/2014 08/23/2016 Overview: Images from the original note were not included. [facility] Surgeon: Modesto Cifuentes M.D. Informed Consent Completed: Yes STS Score: unsupported CAD: No Is intended procedure a CABG: No - is a beta hue ordered? No - reason: not indicated H & P completed: Yes 10/28/14 PA/LAT: Completed CT: Completed MRI: N/A LE US: N/A Cath: Yes - reviewed: Yes Echo:Completed EKG: Completed EF %: 65 PI's: N/A Carotid: N/A Mapping: N/A Dental: Completed PFT's: N/A No results for input(s): WBC, HB, HCT, PLT, INR, CREAT in the last 72 hours. UA: Normal HCG:N/A ABO/ABO Confirmed: Yes Blood ordered: No SA Swab: Yes - results: Negative Last Dose of Anticoagulation: OTC 11/12/14 Op Note: N/A Pacemaker Check: N/A Consults: none DM: Yes, A1c: 6.6% Cardiac Surgical prep: N/A SIGNATURE: Laura Mathews FI[employer] EXTINGUISH[employer] TECHNICIAN CHECKED BY: [email or web address] DATE of SERVICE: 11/14/2014 TIME of SERVICE: 10:59 AM discharge planning 11/10/2014 11/12/2014 Overview: 64yo male without any concerns presently Preop testing 11/10/2014 11/12/2014 Overview: Images from the original note were not included. [facility] Surgeon: Modesto Cifuentes M.D. Informed Consent Completed: pending STS Score: unsupported CAD: Yes - CAD on Problem List: Yes Is intended procedure a CABG: No - is a beta hue ordered? No - reason: not indicated H & P completed: Yes PA/LAT: Completed CT: Completed MRI: N/A LE US: N/A Cath: Yes - reviewed: Yes Echo:Completed EKG: Completed EF %: 65 PI's: Completed Carotid: N/A Mapping: N/A Dental: Pending PFT's: Completed No results for input(s): WBC, HB, HCT, PLT, INR, CREAT in the last 72 hours. UA: Normal HCG:N/A ABO/ABO Confirmed: Yes Blood ordered: No SA Swab: Yes - results: Pending Last Dose of Anticoagulation: vit basa LD 11/03 Op Note: N/A Pacemaker Check: N/A Consults: none DM: No Cardiac Surgical prep: N/A SIGNATURE: Kate Smith RN CHECKED BY: DATE of SERVICE: 11/10/2014 TIME of SERVICE: 10:05 AM Right rotator cuff tear 12/31/2013 08/25/19 17 Pain in joint, shoulder region 12/16/2013 0 08/24/2016 Essential hypertension, benign 12/03/2013 0 11/19/2014 Overview: Home RX; Nortvasc, ACEi A/P: NTg gtt to keep MAPS 65-75. Wean off. Hydralazine prn. Start BB when off Epi. Pain in joint, lower leg 04/16/2013 017 Degenerative tear of medial meniscus 04/16/2013 11/13/2020 Allergic rhinitis 06/29/2012 04/21/2022 Anxiety 07/08/2011 11/13/2020 Overview: Home Rx; Prozac. A/p Restarted Prozac. Esophagitis, unspecified 04/23/2009 017 Acute gastritis without mention of hemorrhage 08/24/2016 Trochanteric bursitis 03/05/2009 11/12/2014 Nontoxic uninodular goiter 01/16/200902/24 Overview: 08/13/19 thyroid right mid-pole thyroid solid nodule 9 x 7 x 4 mm stable since 2016 Last Assessment & Plan: Assessment: under surveillance Nonallopathic lesion of sacr al region, not elsewhere classified 01/02/2009 11/13/2020 Osteoarthrosis, unspecified whether generalized or localized, unspecified site 11/12/2008 11/13/2020 ABSCESS GROIN 07/23/2008 08/23/2016 Obesity, unspecified 07/15/2008 09/16/2020 Pain in joint, pelvic region and thigh 9 08/24/2016 Aneurysm of thoracic aorta 12/05/200704/21 Overview: 05/26/2020 echocardiogram LV size and systolic function normal, ejection fraction 62%, grade 1 ventricular diastolic dysfunction. RV size and RV SF normal, aorta borderline dilated 3.8 cm: Status post aortic valve repair with no regurgitation, peak gradient 33 mmHg, mean gradient 19 mmHg . 07/23/2019 nuclear stress: No inducible ischemia or evidence of scarred myocardium, LV size normal LV SF normal. Ejection fraction 70% 11/17/2014 Mini-BAV repair, Ascending aortic replacement Last Assessment & Plan: Assessment: s/p ascending aorta repair in 2014. 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 Assessment: c/o dry eye Plan: ordered refresh eye drops Last Assessment & Plan: Assessment: prosthetic left eye, eye gtts as needed Generalized anxiety disorder Overview: Anxiety, Generalized Unspecified asthma(493.90) 09/02 Asthma 08/24/2016 documented as of this encounter (statuses as of 09/20/2022) [facility] History of Past illness Narrative* Problem Noted Date Resolved Date Depressive disorder 04/21/2022 04/21/2022 Postoperative pneumonia 04/21/2022 04/21/20 22 Viral infection 04/21/2022 04/21/2022 Lumbosacral spondylosis with radiculopathy 03/2804/27/2022 Dependence on continuous pos itive airway pressure ventilation 03/12/2022 04/21/2022 Dependence on other enabling machines and device s 03/12/2022 04/21/2022 Other specified postprocedural states 03/12/2022 04/21/2022 Personal history of pulmonary embolism 2 04/21/2022 Rheumatoid arthritis, unspecified 03/12/2022 04/21/2022 Ureteric colic 12/20/2021 04/21/2022 Unspecified abdominal pain 12/08/202104/21 Dyspnea, unspecified 04/05/2021 04/21/2022 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 02/17/2017 12/05/2019 Overview: Added automatically from request for surgery [id number] Acute pain of left knee 12/26/2016 11/14/19 Chronic right shoulder pain 12/26/2016 04/0 12/2020 Gross hematuria 11/24/2016 11/13/2020 Malignant neoplasm of kidney excluding renal pel vis 10/21/2016 02/27/2017 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, without long-term current use of insulin 09/30/2016 09/30/2016 Neuropathy 09/30/2016 11/13/2020 Last Assessment & Plan: Assessment: stable on rx Asthma with COPD with exacerbation 08/24/2016 02/27/2017 Counseling and coordination of care 12/15/2014 08/24/2016 SUMMARY 11/21/2014 08/24/2016 Overview: Indication for hospital admission/procedure: Aortic aneurysm LVEF: 65% LVH RVF: Normal Important/Relevant PMH/PSH: BAV, Congenital anomaly of aorta, SIVAKUMAR, Asthma, HTN, HPL, DM, anxiety Preoperative Hospital Course Procedure/Surgeries: 11/17/2014 Mini-BAV repair, Ascending aortic replacement Airway Difficulty: No OR Course: Coagulopathy/bleeding requiring correction with 20u cryo, 8u FFP, 4u plts, 3uprbcs and 2 pump runs for repair of aortic cannulation site Pacing wires: out Postoperative Course/General Impression: S/p AVr/Asc aorta replacement. Plan to wean o2, pep, oob, increase diuresis, cont BB, pain and glucose control. Issues to communicate at signout: CT removed CPAP at night echo done CTA done PT rec acute rehab Needs much encouragement wires out 11/23 d/c to acute rehab today Discharge planning 11/21/2014 05/03/2016 Overview: Pt from [place], [place]. PT rec acute rehab; CM working on placement. Leaving for [facility] in-pt rehab today Hypertension 11/20/2014 02/27/2017 Overview: History: pre op on monopril, norv, Assessment: normotensive currently Plan: Cont BB , cont lasix Atelectasis 11/18/2014 11/19/2014 Overview: Bilateral on CXR. A/P: PEP, EZPAP OOBTC. Volume overload 11/18/2014 08/24/2016 Overview: History: post op Assessment: wt up 5 kg from pre op Plan: cont diuresis On mechanically assisted ventilation 11/17/2014 11/19/2014 Overview: Grade 1 airway. WTE when awake and stable. Extubated on DOS. CPAP at night PEP. Cardiac insufficiency following cardiac surgery 11/17/2014 11/20/2014 Overview: Low CI. CVP low. A/p Epi gtt off. Start BB. Pre-op testing 11/14/2014 08/23/2016 Overview: Images from the original note were not included. [facility] Surgeon: Modesto Cifuentes M.D. Informed Consent Completed: Yes STS Score: unsupported CAD: No Is intended procedure a CABG: No - is a beta hue ordered? No - reason: not indicated H & P completed: Yes 10/28/14 PA/LAT: Completed CT: Completed MRI: N/A LE US: N/A Cath: Yes - reviewed: Yes Echo:Completed EKG: Completed EF %: 65 PI's: N/A Carotid: N/A Mapping: N/A Dental: Completed PFT's: N/A No results for input(s): WBC, HB, HCT, PLT, INR, CREAT in the last 72 hours. UA: Normal HCG:N/A ABO/ABO Confirmed: Yes Blood ordered: No SA Swab: Yes - results: Negative Last Dose of Anticoagulation: OTC 11/12/14 Op Note: N/A Pacemaker Check: N/A Consults: none DM: Yes, A1c: 6.6% Cardiac Surgical prep: N/A SIGNATURE: JERSON Tian CHECKED BY: [email or web address] DATE of SERVICE: 11/14/2014 TIME of SERVICE: 10:59 AM discharge planning 11/10/2014 11/12/2014 Overview: 64yo male without any concerns presently Preop testing 11/10/2014 11/12/2014 Overview: Images from the original note were not included. [facility] Surgeon: Modesto Cifuentes M.D. Informed Consent Completed: pending STS Score: unsupported CAD: Yes - CAD on Problem List: Yes Is intended procedure a CABG: No - is a beta hue ordered? No - reason: not indicated H & P completed: Yes PA/LAT: Completed CT: Completed MRI: N/A LE US: N/A Cath: Yes - reviewed: Yes Echo:Completed EKG: Completed EF %: 65 PI's: Completed Carotid: N/A Mapping: N/A Dental: Pending PFT's: Completed No results for input(s): WBC, HB, HCT, PLT, INR, CREAT in the last 72 hours. UA: Normal HCG:N/A ABO/ABO Confirmed: Yes Blood ordered: No SA Swab: Yes - results: Pending Last Dose of Anticoagulation: vit basa LD 11/03 Op Note: N/A Pacemaker Check: N/A Consults: none DM: No Cardiac Surgical prep: N/A SIGNATURE: Kate Smith RN CHECKED BY: DATE of SERVICE: 11/10/2014 TIME of SERVICE: 10:05 AM Right rotator cuff tear 12/31/2013 08/25/19 17 Pain in joint, shoulder region 12/16/2013 0 08/24/2016 Essential hypertension, benign 12/03/2013 0 11/19/2014 Overview: Home RX; Nortvasc, ACEi A/P: NTg gtt to keep MAPS 65-75. Wean off. Hydralazine prn. Start BB when off Epi. Pain in joint, lower leg 04/16/2013 017 Degenerative tear of medial meniscus 04/16/2013 11/13/2020 Allergic rhinitis 06/29/2012 04/21/2022 Anxiety 07/08/2011 11/13/2020 Overview: Home Rx; Prozac. A/p Restarted Prozac. Esophagitis, unspecified 04/23/2009 017 Acute gastritis without mention of hemorrhage 08/24/2016 Trochanteric bursitis 03/05/2009 11/12/2014 Nontoxic uninodular goiter 01/16/200902/24 Overview: 08/13/19 US thyroid right mid-pole thyroid solid nodule 9 x 7 x 4 mm stable since 2016 Last Assessment & Plan: Assessment: under surveillance Nonallopathic lesion of sacr al region, not elsewhere classified 01/02/2009 11/13/2020 Osteoarthrosis, unspecified whether generalized or localized, unspecified site 11/12/2008 11/13/2020 ABSCESS GROIN 07/23/2008 08/23/2016 Obesity, unspecified 07/15/2008 09/16/2020 Pain in joint, pelvic region and thigh 9 08/24/2016 Aneurysm of thoracic aorta 12/05/200704/21 Overview: 05/26/2020 echocardiogram LV size and systolic function normal, ejection fraction 62%, grade 1 ventricular diastolic dysfunction. RV size and RV SF normal, aorta borderline dilated 3.8 cm: Status post aortic valve repair with no regurgitation, peak gradient 33 mmHg, mean gradient 19 mmHg . 07/23/2019 nuclear stress: No inducible ischemia or evidence of scarred myocardium, LV size normal LV SF normal. Ejection fraction 70% 11/17/2014 Mini-BAV repair, Ascending aortic replacement Last Assessment & Plan: Assessment: s/p ascending aorta repair in 2015. 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 Assessment: c/o dry eye Plan: ordered refresh eye drops Last Assessment & Plan: Assessment: prosthetic left eye, eye gtts as needed Generalized anxiety disorder Overview: Anxiety, Generalized Unspecified asthma(493.90) 09/02 Asthma 08/24/2016 documented as of this encounter (statuses as of 09/22/2022) [facility]11-10-2022 History of Past illness Narrative* Problem Noted Date Resolved Date Depressive disorder 04/21/2022 04/21/2022 Postoperative pneumonia 04/21/2022 04/21/20 22 Viral infection 04/21/2022 04/21/2022 Lumbosacral spondylosis with radiculopathy 03/2804/27/2022 Dependence on continuous pos itive airway pressure ventilation 03/12/2022 04/21/2022 Dependence on other enabling machines and device s 03/12/2022 04/21/2022 Other specified postprocedural states 03/12/2022 04/21/2022 Personal history of pulmonary embolism 04/21/2022 Rheumatoid arthritis, unspecified 03/12/2022 04/21/2022 Ureteric colic 12/20/2021 04/21/2022 Unspecified abdominal pain 12/08/202104/21 Dyspnea, unspecified 04/05/2021 04/21/2022 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 02/17/2017 12/05/2019 Overview: Added automatically from request for surgery [id number] Acute pain of left knee 12/26/2016 11/14/19 Chronic right shoulder pain 12/26/2016 04/0 12/2020 Gross hematuria 11/24/2016 11/13/2020 Malignant neoplasm of kidney excluding renal pel vis 10/21/2016 02/27/2017 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, without long-term current use of insulin 09/30/2016 09/30/2016 Neuropathy 09/30/2016 11/13/2020 Last Assessment & Plan: Assessment: stable on rx Asthma with COPD with exacerbation 08/24/2016 02/27/2017 Counseling and coordination of care 12/15/2014 08/24/2016 SUMMARY 11/21/2014 08/24/2016 Overview: Indication for hospital admission/procedure: Aortic aneurysm LVEF: 65% LVH RVF: Normal Important/Relevant PMH/PSH: BAV, Congenital anomaly of aorta, SIVAKUMAR, Asthma, HTN, HPL, DM, anxiety Preoperative Hospital Course Procedure/Surgeries: 11/17/2014 Mini-BAV repair, Ascending aortic replacement Airway Difficulty: No OR Course: Coagulopathy/bleeding requiring correction with 20u cryo, 8u FFP, 4u plts, 3uprbcs and 2 pump runs for repair of aortic cannulation site Pacing wires: out Postoperative Course/General Impression: S/p AVr/Asc aorta replacement. Plan to wean o2, pep, oob, increase diuresis, cont BB, pain and glucose control. Issues to communicate at signout: CT removed CPAP at night echo done CTA done PT rec acute rehab Needs much encouragement wires out 6/14 d/c to acute rehab today Discharge planning 11/21/2014 05/03/2016 Overview: Pt from [place], [place]. PT rec acute rehab; CM working on placement. Leaving for [facility] in-pt rehab today Hypertension 11/20/2014 02/27/2017 Overview: History: pre op on monopril, norv, Assessment: normotensive currently Plan: Cont BB , cont lasix Atelectasis 11/18/2014 11/19/2014 Overview: Bilateral on CXR. A/P: PEP, EZPAP OOBTC. Volume overload 11/18/2014 08/24/2016 Overview: History: post op Assessment: wt up 5 kg from pre op Plan: cont diuresis On mechanically assisted ventilation 11/17/2014 11/19/2014 Overview: Grade 1 airway. WTE when awake and stable. Extubated on DOS. CPAP at night PEP. Cardiac insufficiency following cardiac surgery 11/17/2014 11/20/2014 Overview: Low CI. CVP low. A/p Epi gtt off. Start BB. Pre-op testing 11/14/2014 08/23/2016 Overview: Images from the original note were not included. [facility] Surgeon: Modesto Cifuentes M.D. Informed Consent Completed: Yes STS Score: unsupported CAD: No Is intended procedure a CABG: No - is a beta hue ordered? No - reason: not indicated H & P completed: Yes 10/28/14 PA/LAT: Completed CT: Completed MRI: N/A LE US: N/A Cath: Yes - reviewed: Yes Echo:Completed EKG: Completed EF %: 65 PI's: N/A Carotid: N/A Mapping: N/A Dental: Completed PFT's: N/A No results for input(s): WBC, HB, HCT, PLT, INR, CREAT in the last 72 hours. UA: Normal HCG:N/A ABO/ABO Confirmed: Yes Blood ordered: No SA Swab: Yes - results: Negative Last Dose of Anticoagulation: OTC 11/12/14 Op Note: N/A Pacemaker Check: N/A Consults: none DM: Yes, A1c: 6.6% Cardiac Surgical prep: N/A SIGNATURE: JERSON Tian CHECKED BY: [email or web address] DATE of SERVICE: 11/14/2014 TIME of SERVICE: 10:59 AM discharge planning 11/10/2014 11/12/2014 Overview: 64yo male without any concerns presently Preop testing 11/10/2014 11/12/2014 Overview: Images from the original note were not included. [facility] Surgeon: Modesto Cifuentes M.D. Informed Consent Completed: pending STS Score: unsupported CAD: Yes - CAD on Problem List: Yes Is intended procedure a CABG: No - is a beta hue ordered? No - reason: not indicated H & P completed: Yes PA/LAT: Completed CT: Completed MRI: N/A LE US: N/A Cath: Yes - reviewed: Yes Echo:Completed EKG: Completed EF %: 65 PI's: Completed Carotid: N/A Mapping: N/A Dental: Pending PFT's: Completed No results for input(s): WBC, HB, HCT, PLT, INR, CREAT in the last 72 hours. UA: Normal HCG:N/A ABO/ABO Confirmed: Yes Blood ordered: No SA Swab: Yes - results: Pending Last Dose of Anticoagulation: vit basa LD 11/03 Op Note: N/A Pacemaker Check: N/A Consults: none DM: No Cardiac Surgical prep: N/A SIGNATURE: Kate Smith RN CHECKED BY: DATE of SERVICE: 11/10/2014 TIME of SERVICE: 10:05 AM Right rotator cuff tear 12/31/2013 08/25/19 17 Pain in joint, shoulder region 12/16/2013 0 08/24/2016 Essential hypertension, benign 12/03/2013 0 11/19/2014 Overview: Home RX; Nortvasc, ACEi A/P: NTg gtt to keep MAPS 65-75. Wean off. Hydralazine prn. Start BB when off Epi. Pain in joint, lower leg 04/16/2013 017 Degenerative tear of medial meniscus 04/16/2013 11/13/2020 Allergic rhinitis 06/29/2012 04/21/2022 Anxiety 07/08/2011 11/13/2020 Overview: Home Rx; Prozac. A/p Restarted Prozac. Esophagitis, unspecified 04/23/2009 017 Acute gastritis without mention of hemorrhage 08/24/2016 Trochanteric bursitis 03/05/2009 11/12/2014 Nontoxic uninodular goiter 01/16/200902/24 Overview: 08/13/19 US thyroid right mid-pole thyroid solid nodule 9 x 7 x 4 mm stable since 2016 Last Assessment & Plan: Assessment: under surveillance Nonallopathic lesion of sacr al region, not elsewhere classified 01/02/2009 11/13/2020 Osteoarthrosis, unspecified whether generalized or localized, unspecified site 11/12/2008 11/13/2020 ABSCESS GROIN 07/23/2008 08/23/2016 Obesity, unspecified 07/15/2008 09/16/2020 Pain in joint, pelvic region and thigh 08/24/2016 Aneurysm of thoracic aorta 12/05/200704/21 Overview: 05/26/2020 echocardiogram LV size and systolic function normal, ejection fraction 62%, grade 1 ventricular diastolic dysfunction. RV size and RV SF normal, aorta borderline dilated 3.8 cm: Status post aortic valve repair with no regurgitation, peak gradient 33 mmHg, mean gradient 19 mmHg . 07/23/2019 nuclear stress: No inducible ischemia or evidence of scarred myocardium, LV size normal LV SF normal. Ejection fraction 70% 11/17/2014 Mini-BAV repair, Ascending aortic replacement Last Assessment & Plan: Assessment: s/p ascending aorta repair in 2014. 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 Assessment: c/o dry eye Plan: ordered refresh eye drops Last Assessment & Plan: Assessment: prosthetic left eye, eye gtts as needed Generalized anxiety disorder Overview: Anxiety, Generalized Unspecified asthma(493.90) 09/02 Asthma 08/24/2016 documented as of this encounter (statuses as of 09/26/2022) [facility]11-10-2022 History of Past illness Narrative* Problem Noted Date Resolved Date Depressive disorder 04/21/2022 04/21/2022 Postoperative pneumonia 04/21/2022 04/21/20 Viral infection 04/21/2022 04/21/2022 Lumbosacral spondylosis with radiculopathy 03/2804/27/2022 Dependence on continuous pos itive airway pressure ventilation 03/12/2022 04/21/2022 Dependence on other enabling machines and device s 03/12/2022 04/21/2022 Other specified postprocedural states 03/12/2022 04/21/2022 Personal history of pulmonary embolism 04/21/2022 Rheumatoid arthritis, unspecified 03/12/2022 04/21/2022 Ureteric colic 12/20/2021 04/21/2022 Unspecified abdominal pain 12/08/202104/21 Dyspnea, unspecified 04/05/2021 04/21/2022 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 02/17/2017 12/05/2019 Overview: Added automatically from request for surgery [id number] Acute pain of left knee 12/26/2016 11/14/19 Chronic right shoulder pain 12/26/2016 04/0 12/2020 Gross hematuria 11/24/2016 11/13/2020 Malignant neoplasm of kidney excluding renal pel vis 10/21/2016 02/27/2017 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, without long-term current use of insulin 09/30/2016 09/30/2016 Neuropathy 09/30/2016 11/13/2020 Last Assessment & Plan: Assessment: stable on rx Asthma with COPD with exacerbation 08/24/2016 02/27/2017 Counseling and coordination of care 12/15/2014 08/24/2016 SUMMARY 11/21/2014 08/24/2016 Overview: Indication for hospital admission/procedure: Aortic aneurysm LVEF: 65% LVH RVF: Normal Important/Relevant PMH/PSH: BAV, Congenital anomaly of aorta, SIVAKUMAR, Asthma, HTN, HPL, DM, anxiety Preoperative Hospital Course Procedure/Surgeries: 11/17/2014 Mini-BAV repair, Ascending aortic replacement Airway Difficulty: No OR Course: Coagulopathy/bleeding requiring correction with 20u cryo, 8u FFP, 4u plts, 3uprbcs and 2 pump runs for repair of aortic cannulation site Pacing wires: out Postoperative Course/General Impression: S/p AVr/Asc aorta replacement. Plan to wean o2, pep, oob, increase diuresis, cont BB, pain and glucose control. Issues to communicate at signout: CT removed CPAP at night echo done CTA done PT rec acute rehab Needs much encouragement wires out 11/23 d/c to acute rehab today Discharge planning 11/21/2014 05/03/2016 Overview: Pt from [place], [place]. PT rec acute rehab; CM working on placement. Leaving for [facility] in-pt rehab today Hypertension 11/20/2014 02/27/2017 Overview: History: pre op on monopril, norv, Assessment: normotensive currently Plan: Cont BB , cont lasix Atelectasis 11/18/2014 11/19/2014 Overview: Bilateral on CXR. A/P: PEP, EZPAP OOBTC. Volume overload 11/18/2014 08/24/2016 Overview: History: post op Assessment: wt up 5 kg from pre op Plan: cont diuresis On mechanically assisted ventilation 11/17/2014 11/19/2014 Overview: Grade 1 airway. WTE when awake and stable. Extubated on DOS. CPAP at night PEP. Cardiac insufficiency following cardiac surgery 11/17/2014 11/20/2014 Overview: Low CI. CVP low. A/p Epi gtt off. Start BB. Pre-op testing 11/14/2014 08/23/2016 Overview: Images from the original note were not included. [facility] Surgeon: Modesto Cifuentes M.D. Informed Consent Completed: Yes STS Score: unsupported CAD: No Is intended procedure a CABG: No - is a beta hue ordered? No - reason: not indicated H & P completed: Yes 10/28/14 PA/LAT: Completed CT: Completed MRI: N/A LE US: N/A Cath: Yes - reviewed: Yes Echo:Completed EKG: Completed EF %: 65 PI's: N/A Carotid: N/A Mapping: N/A Dental: Completed PFT's: N/A No results for input(s): WBC, HB, HCT, PLT, INR, CREAT in the last 72 hours. UA: Normal HCG:N/A ABO/ABO Confirmed: Yes Blood ordered: No SA Swab: Yes - results: Negative Last Dose of Anticoagulation: OTC 11/12/14 Op Note: N/A Pacemaker Check: N/A Consults: none DM: Yes, A1c: 6.6% Cardiac Surgical prep: N/A SIGNATURE: JERSON Tian CHECKED BY: [email or web address] DATE of SERVICE: 11/14/2014 TIME of SERVICE: 10:59 AM discharge planning 11/10/2014 11/12/2014 Overview: 64yo male without any concerns presently Preop testing 11/10/2014 11/12/2014 Overview: Images from the original note were not included. [facility] Surgeon: Modesto Cifuentes M.D. Informed Consent Completed: pending STS Score: unsupported CAD: Yes - CAD on Problem List: Yes Is intended procedure a CABG: No - is a beta hue ordered? No - reason: not indicated H & P completed: Yes PA/LAT: Completed CT: Completed MRI: N/A LE US: N/A Cath: Yes - reviewed: Yes Echo:Completed EKG: Completed EF %: 65 PI's: Completed Carotid: N/A Mapping: N/A Dental: Pending PFT's: Completed No results for input(s): WBC, HB, HCT, PLT, INR, CREAT in the last 72 hours. UA: Normal HCG:N/A ABO/ABO Confirmed: Yes Blood ordered: No SA Swab: Yes - results: Pending Last Dose of Anticoagulation: vit basa LD 11/03 Op Note: N/A Pacemaker Check: N/A Consults: none DM: No Cardiac Surgical prep: N/A SIGNATURE: Kate Smith RN CHECKED BY: DATE of SERVICE: 11/10/2014 TIME of SERVICE: 10:05 AM Right rotator cuff tear 12/31/2013 08/25/19 17 Pain in joint, shoulder region 12/16/2013 0 08/24/2016 Essential hypertension, benign 12/03/2013 0 11/19/2014 Overview: Home RX; Nortvasc, ACEi A/P: NTg gtt to keep MAPS 65-75. Wean off. Hydralazine prn. Start BB when off Epi. Pain in joint, lower leg 04/16/2013 017 Degenerative tear of medial meniscus 04/16/2013 11/13/2020 Allergic rhinitis 06/29/2012 04/21/2022 Anxiety 07/08/2011 11/13/2020 Overview: Home Rx; Prozac. A/p Restarted Prozac. Esophagitis, unspecified 04/23/2009 017 Acute gastritis without mention of hemorrhage 08/24/2016 Trochanteric bursitis 03/05/2009 11/12/2014 Nontoxic uninodular goiter 01/16/200902/24 Overview: 08/13/19 US thyroid right mid-pole thyroid solid nodule 9 x 7 x 4 mm stable since 2016 Last Assessment & Plan: Assessment: under surveillance Nonallopathic lesion of sacr al region, not elsewhere classified 01/02/2009 11/13/2020 Osteoarthrosis, unspecified whether generalized or localized, unspecified site 11/12/2008 11/13/2020 ABSCESS GROIN 07/23/2008 08/23/2016 Obesity, unspecified 07/15/2008 09/16/2020 Pain in joint, pelvic region and thigh 08/24/2016 Aneurysm of thoracic aorta 12/05/200704/21 Overview: 05/26/2020 echocardiogram LV size and systolic function normal, ejection fraction 62%, grade 1 ventricular diastolic dysfunction. RV size and RV SF normal, aorta borderline dilated 3.8 cm: Status post aortic valve repair with no regurgitation, peak gradient 33 mmHg, mean gradient 19 mmHg . 07/23/2019 nuclear stress: No inducible ischemia or evidence of scarred myocardium, LV size normal LV SF normal. Ejection fraction 70% 11/17/2014 Mini-BAV repair, Ascending aortic replacement Last Assessment & Plan: Assessment: s/p ascending aorta repair in 2014. 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 Assessment: c/o dry eye Plan: ordered refresh eye drops Last Assessment & Plan: Assessment: prosthetic left eye, eye gtts as needed Generalized anxiety disorder Overview: Anxiety, Generalized Unspecified asthma(493.90) 09/02 Asthma 08/24/2016 documented as of this encounter (statuses as of 09/30/2022) [facility]11-10-[facility] History of Past illness Narrative* Problem Noted Date Resolved Date Depressive disorder 04/21/2022 04/21/2022 Postoperative pneumonia 04/21/2022 04/21/20 Viral infection 04/21/2022 04/21/2022 Lumbosacral spondylosis with radiculopathy 03/2804/27/2022 Dependence on continuous pos itive airway pressure ventilation 03/12/2022 04/21/2022 Dependence on other enabling machines and device s 03/12/2022 04/21/2022 Other specified postprocedural states 03/12/2022 04/21/2022 Personal history of pulmonary embolism 04/21/2022 Rheumatoid arthritis, unspecified 03/12/2022 04/21/2022 Ureteric colic 12/20/2021 04/21/2022 Unspecified abdominal pain 12/08/202104/21 Dyspnea, unspecified 04/05/2021 04/21/2022 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 02/17/2017 12/05/2019 Overview: Added automatically from request for surgery [id number] Acute pain of left knee 12/26/2016 11/14/19 21 Chronic right shoulder pain 12/26/2016 04/0 12/2020 Gross hematuria 11/24/2016 11/13/2020 Malignant neoplasm of kidney excluding renal pel vis 10/21/2016 02/27/2017 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, without long-term current use of insulin 09/30/2016 09/30/2016 Neuropathy 09/30/2016 11/13/2020 Last Assessment & Plan: Assessment: stable on rx Asthma with COPD with exacerbation 08/24/2016 02/27/2017 Counseling and coordination of care 12/15/2014 08/24/2016 SUMMARY 11/21/2014 08/24/2016 Overview: Indication for hospital admission/procedure: Aortic aneurysm LVEF: 65% LVH RVF: Normal Important/Relevant PMH/PSH: BAV, Congenital anomaly of aorta, SIVAKUMAR, Asthma, HTN, HPL, DM, anxiety Preoperative Hospital Course Procedure/Surgeries: 11/17/2014 Mini-BAV repair, Ascending aortic replacement Airway Difficulty: No OR Course: Coagulopathy/bleeding requiring correction with 20u cryo, 8u FFP, 4u plts, 3uprbcs and 2 pump runs for repair of aortic cannulation site Pacing wires: out Postoperative Course/General Impression: S/p AVr/Asc aorta replacement. Plan to wean o2, pep, oob, increase diuresis, cont BB, pain and glucose control. Issues to communicate at signout: CT removed CPAP at night echo done CTA done PT rec acute rehab Needs much encouragement wires out 11/23 d/c to acute rehab today Discharge planning 11/21/2014 05/03/2016 Overview: Pt from [place], [place]. PT rec acute rehab; CM working on placement. Leaving for [facility] in-[facility] rehab today Hypertension 11/20/2014 02/27/2017 Overview: History: pre op on monopril, norv, Assessment: normotensive currently Plan: Cont BB , cont lasix Atelectasis 11/18/2014 11/19/2014 Overview: Bilateral on CXR. A/P: PEP, EZPAP OOBTC. Volume overload 11/18/2014 08/24/2016 Overview: History: post op Assessment: wt up 5 kg from pre op Plan: cont diuresis On mechanically assisted ventilation 11/17/2014 11/19/2014 Overview: Grade 1 airway. WTE when awake and stable. Extubated on DOS. CPAP at night PEP. Cardiac insufficiency following cardiac surgery 11/17/2014 11/20/2014 Overview: Low CI. CVP low. A/p Epi gtt off. Start BB. Pre-op testing 11/14/2014 08/23/2016 Overview: Images from the original note were not included. [facility] Surgeon: Modesto Cifuentes M.D. Informed Consent Completed: Yes STS Score: unsupported CAD: No Is intended procedure a CABG: No - is a beta hue ordered? No - reason: not indicated H & P completed: Yes 10/28/14 PA/LAT: Completed CT: Completed MRI: N/A LE US: N/A Cath: Yes - reviewed: Yes Echo:Completed EKG: Completed EF %: 65 PI's: N/A Carotid: N/A Mapping: N/A Dental: Completed PFT's: N/A No results for input(s): WBC, HB, HCT, PLT, INR, CREAT in the last 72 hours. UA: Normal HCG:N/A ABO/ABO Confirmed: Yes Blood ordered: No SA Swab: Yes - results: Negative Last Dose of Anticoagulation: OTC 11/12/14 Op Note: N/A Pacemaker Check: N/A Consults: none DM: Yes, A1c: 6.6% Cardiac Surgical prep: N/A SIGNATURE: JERSON Tian CHECKED BY: [email or web address] DATE of SERVICE: 11/14/2014 TIME of SERVICE: 10:59 AM discharge planning 11/10/2014 11/12/2014 Overview: 64yo male without any concerns presently Preop testing 11/10/2014 11/12/2014 Overview: Images from the original note were not included. [facility] Surgeon: Modesto Cifuentes M.D. Informed Consent Completed: pending STS Score: unsupported CAD: Yes - CAD on Problem List: Yes Is intended procedure a CABG: No - is a beta hue ordered? No - reason: not indicated H & P completed: Yes PA/LAT: Completed CT: Completed MRI: N/A LE US: N/A Cath: Yes - reviewed: Yes Echo:Completed EKG: Completed EF %: 65 PI's: Completed Carotid: N/A Mapping: N/A Dental: Pending PFT's: Completed No results for input(s): WBC, HB, HCT, PLT, INR, CREAT in the last 72 hours. UA: Normal HCG:N/A ABO/ABO Confirmed: Yes Blood ordered: No SA Swab: Yes - results: Pending Last Dose of Anticoagulation: vit basa LD 11/03 Op Note: N/A Pacemaker Check: N/A Consults: none DM: No Cardiac Surgical prep: N/A SIGNATURE: Kate Smith RN CHECKED BY: DATE of SERVICE: 11/10/2014 TIME of SERVICE: 10:05 AM Right rotator cuff tear 12/31/2013 08/25/19 17 Pain in joint, shoulder region 12/16/2013 0 08/24/2016 Essential hypertension, benign 12/03/2013 0 11/19/2014 Overview: Home RX; Nortvasc, ACEi A/P: NTg gtt to keep MAPS 65-75. Wean off. Hydralazine prn. Start BB when off Epi. Pain in joint, lower leg 04/16/2013 017 Degenerative tear of medial meniscus 04/16/2013 11/13/2020 Allergic rhinitis 06/29/2012 04/21/2022 Anxiety 07/08/2011 11/13/2020 Overview: Home Rx; Prozac. A/p Restarted Prozac. Esophagitis, unspecified 04/23/2009 017 Acute gastritis without mention of hemorrhage 08/24/2016 Trochanteric bursitis 03/05/2009 11/12/2014 Nontoxic uninodular goiter 01/16/200902/24 Overview: 08/13/19 US thyroid right mid-pole thyroid solid nodule 9 x 7 x 4 mm stable since 2017 Last Assessment & Plan: Assessment: under surveillance Nonallopathic lesion of sacr al region, not elsewhere classified 01/02/2009 11/13/2020 Osteoarthrosis, unspecified whether generalized or localized, unspecified site 11/12/2008 11/13/2020 ABSCESS GROIN 07/23/2008 08/23/2016 Obesity, unspecified 07/15/2008 09/16/2020 Pain in joint, pelvic region and thigh 9 08/24/2016 Aneurysm of thoracic aorta 12/05/200704/21 Overview: 05/26/2020 echocardiogram LV size and systolic function normal, ejection fraction 62%, grade 1 ventricular diastolic dysfunction. RV size and RV SF normal, aorta borderline dilated 3.8 cm: Status post aortic valve repair with no regurgitation, peak gradient 33 mmHg, mean gradient 19 mmHg . 07/23/2019 nuclear stress: No inducible ischemia or evidence of scarred myocardium, LV size normal LV SF normal. Ejection fraction 70% 11/17/2014 Mini-BAV repair, Ascending aortic replacement Last Assessment & Plan: Assessment: s/p ascending aorta repair in 2014. 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 Assessment: c/o dry eye Plan: ordered refresh eye drops Last Assessment & Plan: Assessment: prosthetic left eye, eye gtts as needed Generalized anxiety disorder Overview: Anxiety, Generalized Unspecified asthma(493.90) 09/02 Asthma 08/24/2016 documented as of this encounter (statuses as of 09/30/2022) [facility]11-10-2022 History of Past illness Narrative* Problem Noted Date Resolved Date Depressive disorder 04/21/2022 04/21/2022 Postoperative pneumonia 04/21/2022 04/21/20 22 Viral infection 04/21/2022 04/21/2022 Lumbosacral spondylosis with radiculopathy 03/2804/27/2022 Dependence on continuous pos itive airway pressure ventilation 03/12/2022 04/21/2022 Dependence on other enabling machines and device s 03/12/2022 04/21/2022 Other specified postprocedural states 03/12/2022 04/21/2022 Personal history of pulmonary embolism 04/21/2022 Rheumatoid arthritis, unspecified 03/12/2022 04/21/2022 Ureteric colic 12/20/2021 04/21/2022 Unspecified abdominal pain 12/08/202104/21 Dyspnea, unspecified 04/05/2021 04/21/2022 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 02/17/2017 12/05/2019 Overview: Added automatically from request for surgery [id number] Acute pain of left knee 12/26/2016 11/14/19 Chronic right shoulder pain 12/26/2016 04/0 12/2020 Gross hematuria 11/24/2016 11/13/2020 Malignant neoplasm of kidney excluding renal pel vis 10/21/2016 02/27/2017 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, without long-term current use of insulin 09/30/2016 09/30/2016 Neuropathy 09/30/2016 11/13/2020 Last Assessment & Plan: Assessment: stable on rx Asthma with COPD with exacerbation 08/24/2016 02/27/2017 Counseling and coordination of care 12/15/2014 08/24/2016 SUMMARY 11/21/2014 08/24/2016 Overview: Indication for hospital admission/procedure: Aortic aneurysm LVEF: 65% LVH RVF: Normal Important/Relevant PMH/PSH: BAV, Congenital anomaly of aorta, SIVAKUMAR, Asthma, HTN, HPL, DM, anxiety Preoperative Hospital Course Procedure/Surgeries: 11/17/2014 Mini-BAV repair, Ascending aortic replacement Airway Difficulty: No OR Course: Coagulopathy/bleeding requiring correction with 20u cryo, 8u FFP, 4u plts, 3uprbcs and 2 pump runs for repair of aortic cannulation site Pacing wires: out Postoperative Course/General Impression: S/p AVr/Asc aorta replacement. Plan to wean o2, pep, oob, increase diuresis, cont BB, pain and glucose control. Issues to communicate at signout: CT removed CPAP at night echo done CTA done PT rec acute rehab Needs much encouragement wires out 11/23 d/c to acute rehab today Discharge planning 11/21/2014 05/03/2016 Overview: Pt from [place], [place]. PT rec acute rehab; CM working on placement. Leaving for [facility] in-pt rehab today Hypertension 11/20/2014 02/27/2017 Overview: History: pre op on monopril, norv, Assessment: normotensive currently Plan: Cont BB , cont lasix Atelectasis 11/18/2014 11/19/2014 Overview: Bilateral on CXR. A/P: PEP, EZPAP OOBTC. Volume overload 11/18/2014 08/24/2016 Overview: History: post op Assessment: wt up 5 kg from pre op Plan: cont diuresis On mechanically assisted ventilation 11/17/2014 11/19/2014 Overview: Grade 1 airway. WTE when awake and stable. Extubated on DOS. CPAP at night PEP. Cardiac insufficiency following cardiac surgery 11/17/2014 11/20/2014 Overview: Low CI. CVP low. A/p Epi gtt off. Start BB. Pre-op testing 11/14/2014 08/23/2016 Overview: Images from the original note were not included. [facility] Surgeon: Modesto Cifuentes M.D. Informed Consent Completed: Yes STS Score: unsupported CAD: No Is intended procedure a CABG: No - is a beta hue ordered? No - reason: not indicated H & P completed: Yes 10/28/14 PA/LAT: Completed CT: Completed MRI: N/A LE US: N/A Cath: Yes - reviewed: Yes Echo:Completed EKG: Completed EF %: 65 PI's: N/A Carotid: N/A Mapping: N/A Dental: Completed PFT's: N/A No results for input(s): WBC, HB, HCT, PLT, INR, CREAT in the last 72 hours. UA: Normal HCG:N/A ABO/ABO Confirmed: Yes Blood ordered: No SA Swab: Yes - results: Negative Last Dose of Anticoagulation: OTC 11/12/14 Op Note: N/A Pacemaker Check: N/A Consults: none DM: Yes, A1c: 6.6% Cardiac Surgical prep: N/A SIGNATURE: JERSON Tian CHECKED BY: [email or web address] DATE of SERVICE: 11/14/2014 TIME of SERVICE: 10:59 AM discharge planning 11/10/2014 11/12/2014 Overview: 64yo male without any concerns presently Preop testing 11/10/2014 11/12/2014 Overview: Images from the original note were not included. [facility] Surgeon: Modesto Cifuentes M.D. Informed Consent Completed: pending STS Score: unsupported CAD: Yes - CAD on Problem List: Yes Is intended procedure a CABG: No - is a beta hue ordered? No - reason: not indicated H & P completed: Yes PA/LAT: Completed CT: Completed MRI: N/A LE US: N/A Cath: Yes - reviewed: Yes Echo:Completed EKG: Completed EF %: 65 PI's: Completed Carotid: N/A Mapping: N/A Dental: Pending PFT's: Completed No results for input(s): WBC, HB, HCT, PLT, INR, CREAT in the last 72 hours. UA: Normal HCG:N/A ABO/ABO Confirmed: Yes Blood ordered: No SA Swab: Yes - results: Pending Last Dose of Anticoagulation: vit basa LD 11/03 Op Note: N/A Pacemaker Check: N/A Consults: none DM: No Cardiac Surgical prep: N/A SIGNATURE: Kate Smith RN CHECKED BY: DATE of SERVICE: 11/10/2014 TIME of SERVICE: 10:05 AM Right rotator cuff tear 12/31/2013 08/25/19 17 Pain in joint, shoulder region 12/16/2013 0 08/24/2016 Essential hypertension, benign 12/03/2013 0 11/19/2014 Overview: Home RX; Nortvasc, ACEi A/P: NTg gtt to keep MAPS 65-75. Wean off. Hydralazine prn. Start BB when off Epi. Pain in joint, lower leg 04/16/2013 017 Degenerative tear of medial meniscus 04/16/2013 11/13/2020 Allergic rhinitis 06/29/2012 04/21/2022 Anxiety 07/08/2011 11/13/2020 Overview: Home Rx; Prozac. A/p Restarted Prozac. Esophagitis, unspecified 04/23/2009 017 Acute gastritis without mention of hemorrhage 08/24/2016 Trochanteric bursitis 03/05/2009 11/12/2014 Nontoxic uninodular goiter 01/16/200902/24 Overview: 08/13/19 thyroid right mid-pole thyroid solid nodule 9 x 7 x 4 mm stable since 2016 Last Assessment & Plan: Assessment: under surveillance Nonallopathic lesion of sacr al region, not elsewhere classified 01/02/2009 11/13/2020 Osteoarthrosis, unspecified whether generalized or localized, unspecified site 11/12/2008 11/13/2020 ABSCESS GROIN 07/23/2008 08/23/2016 Obesity, unspecified 07/15/2008 09/16/2020 Pain in joint, pelvic region and thigh 9 08/24/2016 Aneurysm of thoracic aorta 12/05/200704/21 Overview: 05/26/2020 echocardiogram LV size and systolic function normal, ejection fraction 62%, grade 1 ventricular diastolic dysfunction. RV size and RV SF normal, aorta borderline dilated 3.8 cm: Status post aortic valve repair with no regurgitation, peak gradient 33 mmHg, mean gradient 19 mmHg . 07/23/2019 nuclear stress: No inducible ischemia or evidence of scarred myocardium, LV size normal LV SF normal. Ejection fraction 70% 11/17/2014 Mini-BAV repair, Ascending aortic replacement Last Assessment & Plan: Assessment: s/p ascending aorta repair in 2014. 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 Assessment: c/o dry eye Plan: ordered refresh eye drops Last Assessment & Plan: Assessment: prosthetic left eye, eye gtts as needed Generalized anxiety disorder Overview: Anxiety, Generalized Unspecified asthma(493.90) 09/02 Asthma 08/24/2016 documented as of this encounter (statuses as of 09/30/2022) [facility]11-10-2022 History of Past illness Narrative* Problem Noted Date Resolved Date Depressive disorder 04/21/2022 04/21/2022 Postoperative pneumonia 04/21/2022 04/21/20 22 Viral infection 04/21/2022 04/21/2022 Lumbosacral spondylosis with radiculopathy 03/2804/27/2022 Dependence on continuous pos itive airway pressure ventilation 03/12/2022 04/21/2022 Dependence on other enabling machines and device s 03/12/2022 04/21/2022 Other specified postprocedural states 03/12/2022 04/21/2022 Personal history of pulmonary embolism 04/21/2022 Rheumatoid arthritis, unspecified 03/12/2022 04/21/2022 Ureteric colic 12/20/2021 04/21/2022 Unspecified abdominal pain 12/08/202104/21 Dyspnea, unspecified 04/05/2021 04/21/2022 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 02/17/2017 12/05/2019 Overview: Added automatically from request for surgery [id number] Acute pain of left knee 12/26/2016 11/14/19 Chronic right shoulder pain 12/26/2016 04/0 12/2020 Gross hematuria 11/24/2016 11/13/2020 Malignant neoplasm of kidney excluding renal pel vis 10/21/2016 02/27/2017 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, without long-term current use of insulin 09/30/2016 09/30/2016 Neuropathy 09/30/2016 11/13/2020 Last Assessment & Plan: Assessment: stable on rx Asthma with COPD with exacerbation 08/24/2016 02/27/2017 Counseling and coordination of care 12/15/2014 08/24/2016 SUMMARY 11/21/2014 08/24/2016 Overview: Indication for hospital admission/procedure: Aortic aneurysm LVEF: 65% LVH RVF: Normal Important/Relevant PMH/PSH: BAV, Congenital anomaly of aorta, SIVAKUMAR, Asthma, HTN, HPL, DM, anxiety Preoperative Hospital Course Procedure/Surgeries: 11/17/2014 Mini-BAV repair, Ascending aortic replacement Airway Difficulty: No OR Course: Coagulopathy/bleeding requiring correction with 20u cryo, 8u FFP, 4u plts, 3uprbcs and 2 pump runs for repair of aortic cannulation site Pacing wires: out Postoperative Course/General Impression: S/p AVr/Asc aorta replacement. Plan to wean o2, pep, oob, increase diuresis, cont BB, pain and glucose control. Issues to communicate at signout: CT removed CPAP at night echo done CTA done PT rec acute rehab Needs much encouragement wires out 11/23 d/c to acute rehab today Discharge planning 11/21/2014 05/03/2016 Overview: Pt from [place], [place]. PT rec acute rehab; CM working on placement. Leaving for [facility] in-pt rehab today Hypertension 11/20/2014 02/27/2017 Overview: History: pre op on monopril, norv, Assessment: normotensive currently Plan: Cont BB , cont lasix Atelectasis 11/18/2014 11/19/2014 Overview: Bilateral on CXR. A/P: PEP, EZPAP OOBTC. Volume overload 11/18/2014 08/24/2016 Overview: History: post op Assessment: wt up 5 kg from pre op Plan: cont diuresis On mechanically assisted ventilation 11/17/2014 11/19/2014 Overview: Grade 1 airway. WTE when awake and stable. Extubated on DOS. CPAP at night PEP. Cardiac insufficiency following cardiac surgery 11/17/2014 11/20/2014 Overview: Low CI. CVP low. A/p Epi gtt off. Start BB. Pre-op testing 11/14/2014 08/23/2016 Overview: Images from the original note were not included. [facility] Surgeon: Modesto Cifuentes M.D. Informed Consent Completed: Yes STS Score: unsupported CAD: No Is intended procedure a CABG: No - is a beta hue ordered? No - reason: not indicated H & P completed: Yes 10/28/14 PA/LAT: Completed CT: Completed MRI: N/A LE US: N/A Cath: Yes - reviewed: Yes Echo:Completed EKG: Completed EF %: 65 PI's: N/A Carotid: N/A Mapping: N/A Dental: Completed PFT's: N/A No results for input(s): WBC, HB, HCT, PLT, INR, CREAT in the last 72 hours. UA: Normal HCG:N/A ABO/ABO Confirmed: Yes Blood ordered: No SA Swab: Yes - results: Negative Last Dose of Anticoagulation: OTC 11/12/14 Op Note: N/A Pacemaker Check: N/A Consults: none DM: Yes, A1c: 6.6% Cardiac Surgical prep: N/A SIGNATURE: JERSON Tian CHECKED BY: [email or web address] DATE of SERVICE: 11/14/2014 TIME of SERVICE: 10:59 AM discharge planning 11/10/2014 11/12/2014 Overview: 64yo male without any concerns presently Preop testing 11/10/2014 11/12/2014 Overview: Images from the original note were not included. [facility] PRE-OP CHECKLIST Surgeon: Modesto Cifuentes M.D. Informed Consent Completed: pending STS Score: unsupported CAD: Yes - CAD on Problem List: Yes Is intended procedure a CABG: No - is a beta hue ordered? No - reason: not indicated H & P completed: Yes PA/LAT: Completed CT: Completed MRI: N/A LE US: N/A Cath: Yes - reviewed: Yes Echo:Completed EKG: Completed EF %: 65 PI's: Completed Carotid: N/A Mapping: N/A Dental: Pending PFT's: Completed No results for input(s): WBC, HB, HCT, PLT, INR, CREAT in the last 72 hours. UA: Normal HCG:N/A ABO/ABO Confirmed: Yes Blood ordered: No SA Swab: Yes - results: Pending Last Dose of Anticoagulation: vit basa LD 11/03 Op Note: N/A Pacemaker Check: N/A Consults: none DM: No Cardiac Surgical prep: N/A SIGNATURE: Kate Smith RN CHECKED BY: DATE of SERVICE: 11/10/2014 TIME of SERVICE: 10:05 AM Right rotator cuff tear 12/31/2013 08/25/19 17 Pain in joint, shoulder region 12/16/2013 0 08/24/2016 Essential hypertension, benign 12/03/2013 0 11/19/2014 Overview: Home RX; Nortvasc, ACEi A/P: NTg gtt to keep MAPS 65-75. Wean off. Hydralazine prn. Start BB when off Epi. Pain in joint, lower leg 04/16/2013 017 Degenerative tear of medial meniscus 04/16/2013 11/13/2020 Allergic rhinitis 06/29/2012 04/21/2022 Anxiety 07/08/2011 11/13/2020 Overview: Home Rx; Prozac. A/p Restarted Prozac. Esophagitis, unspecified 04/23/2009 017 Acute gastritis without mention of hemorrhage 08/24/2016 Trochanteric bursitis 03/05/2009 11/12/2014 Nontoxic uninodular goiter 01/16/200902/24 Overview: 08/13/19 thyroid right mid-pole thyroid solid nodule 9 x 7 x 4 mm stable since 2016 Last Assessment & Plan: Assessment: under surveillance Nonallopathic lesion of sacr al region, not elsewhere classified 01/02/2009 11/13/2020 Osteoarthrosis, unspecified whether generalized or localized, unspecified site 11/12/2008 11/13/2020 ABSCESS GROIN 07/23/2008 08/23/2016 Obesity, unspecified 07/15/2008 09/16/2020 Pain in joint, pelvic region and thigh 9 08/24/2016 Aneurysm of thoracic aorta 12/05/200704/21 Overview: 05/26/2020 echocardiogram LV size and systolic function normal, ejection fraction 62%, grade 1 ventricular diastolic dysfunction. RV size and RV SF normal, aorta borderline dilated 3.8 cm: Status post aortic valve repair with no regurgitation, peak gradient 33 mmHg, mean gradient 19 mmHg . 07/23/2019 nuclear stress: No inducible ischemia or evidence of scarred myocardium, LV size normal LV SF normal. Ejection fraction 70% 11/17/2014 Mini-BAV repair, Ascending aortic replacement Last Assessment & Plan: Assessment: s/p ascending aorta repair in 2014. 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 Assessment: c/o dry eye Plan: ordered refresh eye drops Last Assessment & Plan: Assessment: prosthetic left eye, eye gtts as needed Generalized anxiety disorder Overview: Anxiety, Generalized Unspecified asthma(493.90) 09/02 Asthma 08/24/2016 documented as of this encounter (statuses as of 09/30/2022) [facility]11-10-[facility] History of Past illness Narrative* Problem Noted Date Resolved Date Depressive disorder 04/21/2022 04/21/2022 Postoperative pneumonia 04/21/2022 04/21/20 Viral infection 04/21/2022 04/21/2022 Lumbosacral spondylosis with radiculopathy 03/2804/27/2022 Dependence on continuous pos itive airway pressure ventilation 03/12/2022 04/21/2022 Dependence on other enabling machines and device s 03/12/2022 04/21/2022 Other specified postprocedural states 03/12/2022 04/21/2022 Personal history of pulmonary embolism 2 04/21/2022 Rheumatoid arthritis, unspecified 03/12/2022 04/21/2022 Ureteric colic 12/20/2021 04/21/2022 Unspecified abdominal pain 12/08/202104/21 Dyspnea, unspecified 04/05/2021 04/21/2022 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 02/17/2017 12/05/2019 Overview: Added automatically from request for surgery [id number] Acute pain of left knee 12/26/2016 11/14/19 Chronic right shoulder pain 12/26/2016 04/0 12/2020 Gross hematuria 11/24/2016 11/13/2020 Malignant neoplasm of kidney excluding renal pel vis 10/21/2016 02/27/2017 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, without long-term current use of insulin 09/30/2016 09/30/2016 Neuropathy 09/30/2016 11/13/2020 Last Assessment & Plan: Assessment: stable on rx Asthma with COPD with exacerbation 08/24/2016 02/27/2017 Counseling and coordination of care 12/15/2014 08/24/2016 SUMMARY 11/21/2014 08/24/2016 Overview: Indication for hospital admission/procedure: Aortic aneurysm LVEF: 65% LVH RVF: Normal Important/Relevant PMH/PSH: BAV, Congenital anomaly of aorta, SIVAKUMAR, Asthma, HTN, HPL, DM, anxiety Preoperative Hospital Course Procedure/Surgeries: 11/17/2014 Mini-BAV repair, Ascending aortic replacement Airway Difficulty: No OR Course: Coagulopathy/bleeding requiring correction with 20u cryo, 8u FFP, 4u plts, 3uprbcs and 2 pump runs for repair of aortic cannulation site Pacing wires: out Postoperative Course/General Impression: S/p AVr/Asc aorta replacement. Plan to wean o2, pep, oob, increase diuresis, cont BB, pain and glucose control. Issues to communicate at signout: CT removed CPAP at night echo done CTA done PT rec acute rehab Needs much encouragement wires out 11/23 d/c to acute rehab today Discharge planning 11/21/2014 05/03/2016 Overview: Pt from [place], [place]. PT rec acute rehab; CM working on placement. Leaving for [facility] in-pt rehab today Hypertension 11/20/2014 02/27/2017 Overview: History: pre op on monopril, norv, Assessment: normotensive currently Plan: Cont BB , cont lasix Atelectasis 11/18/2014 11/19/2014 Overview: Bilateral on CXR. A/P: PEP, EZPAP OOBTC. Volume overload 11/18/2014 08/24/2016 Overview: History: post op Assessment: wt up 5 kg from pre op Plan: cont diuresis On mechanically assisted ventilation 11/17/2014 11/19/2014 Overview: Grade 1 airway. WTE when awake and stable. Extubated on DOS. CPAP at night PEP. Cardiac insufficiency following cardiac surgery 11/17/2014 11/20/2014 Overview: Low CI. CVP low. A/p Epi gtt off. Start BB. Pre-op testing 11/14/2014 08/23/2016 Overview: Images from the original note were not included. [facility] Surgeon: Modesto Cifuentes M.D. Informed Consent Completed: Yes STS Score: unsupported CAD: No Is intended procedure a CABG: No - is a beta hue ordered? No - reason: not indicated H & P completed: Yes 10/28/14 PA/LAT: Completed CT: Completed MRI: N/A LE US: N/A Cath: Yes - reviewed: Yes Echo:Completed EKG: Completed EF %: 65 PI's: N/A Carotid: N/A Mapping: N/A Dental: Completed PFT's: N/A No results for input(s): WBC, HB, HCT, PLT, INR, CREAT in the last 72 hours. UA: Normal HCG:N/A ABO/ABO Confirmed: Yes Blood ordered: No SA Swab: Yes - results: Negative Last Dose of Anticoagulation: OTC 11/12/14 Op Note: N/A Pacemaker Check: N/A Consults: none DM: Yes, A1c: 6.6% Cardiac Surgical prep: N/A SIGNATURE: JERSON Tian CHECKED BY: [email or web address] DATE of SERVICE: 11/14/2014 TIME of SERVICE: 10:59 AM discharge planning 11/10/2014 11/12/2014 Overview: 64yo male without any concerns presently Preop testing 11/10/2014 11/12/2014 Overview: Images from the original note were not included. [facility] Surgeon: Modesto Cifuentes M.D. Informed Consent Completed: pending STS Score: unsupported CAD: Yes - CAD on Problem List: Yes Is intended procedure a CABG: No - is a beta hue ordered? No - reason: not indicated H & P completed: Yes PA/LAT: Completed CT: Completed MRI: N/A LE US: N/A Cath: Yes - reviewed: Yes Echo:Completed EKG: Completed EF %: 65 PI's: Completed Carotid: N/A Mapping: N/A Dental: Pending PFT's: Completed No results for input(s): WBC, HB, HCT, PLT, INR, CREAT in the last 72 hours. UA: Normal HCG:N/A ABO/ABO Confirmed: Yes Blood ordered: No SA Swab: Yes - results: Pending Last Dose of Anticoagulation: vit basa LD 11/03 Op Note: N/A Pacemaker Check: N/A Consults: none DM: No Cardiac Surgical prep: N/A SIGNATURE: Kate Smith RN CHECKED BY: DATE of SERVICE: 11/10/2014 TIME of SERVICE: 10:05 AM Right rotator cuff tear 12/31/2013 08/25/19 17 Pain in joint, shoulder region 12/16/2013 0 08/24/2016 Essential hypertension, benign 12/03/2013 0 11/19/2014 Overview: Home RX; Nortvasc, ACEi A/P: NTg gtt to keep MAPS 65-75. Wean off. Hydralazine prn. Start BB when off Epi. Pain in joint, lower leg 04/16/2013 017 Degenerative tear of medial meniscus 04/16/2013 11/13/2020 Allergic rhinitis 06/29/2012 04/21/2022 Anxiety 07/08/2011 11/13/2020 Overview: Home Rx; Prozac. A/p Restarted Prozac. Esophagitis, unspecified 04/23/2009 017 Acute gastritis without mention of hemorrhage 08/24/2016 Trochanteric bursitis 03/05/2009 11/12/2014 Nontoxic uninodular goiter 01/16/200902/24 Overview: 08/13/19 US thyroid right mid-pole thyroid solid nodule 9 x 7 x 4 mm stable since 2016 Last Assessment & Plan: Assessment: under surveillance Nonallopathic lesion of sacr al region, not elsewhere classified 01/02/2009 11/13/2020 Osteoarthrosis, unspecified whether generalized or localized, unspecified site 11/12/2008 11/13/2020 ABSCESS GROIN 07/23/2008 08/23/2016 Obesity, unspecified 07/15/2008 09/16/2020 Pain in joint, pelvic region and thigh 9 08/24/2016 Aneurysm of thoracic aorta 12/05/200704/21 Overview: 05/26/2020 echocardiogram LV size and systolic function normal, ejection fraction 62%, grade 1 ventricular diastolic dysfunction. RV size and RV SF normal, aorta borderline dilated 3.8 cm: Status post aortic valve repair with no regurgitation, peak gradient 33 mmHg, mean gradient 19 mmHg . 07/23/2019 nuclear stress: No inducible ischemia or evidence of scarred myocardium, LV size normal LV SF normal. Ejection fraction 70% 11/17/2014 Mini-BAV repair, Ascending aortic replacement Last Assessment & Plan: Assessment: s/p ascending aorta repair in 2014. 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 Assessment: c/o dry eye Plan: ordered refresh eye drops Last Assessment & Plan: Assessment: prosthetic left eye, eye gtts as needed Generalized anxiety disorder Overview: Anxiety, Generalized Unspecified asthma(493.90) 09/02 Asthma 08/24/2016 documented as of this encounter (statuses as of 10/04/2022) [facility]11-10-2022 History of Past illness Narrative* Problem Noted Date Resolved Date Depressive disorder 04/21/2022 04/21/2022 Postoperative pneumonia 04/21/2022 04/21/20 22 Viral infection 04/21/2022 04/21/2022 Lumbosacral spondylosis with radiculopathy 03/2804/27/2022 Dependence on continuous pos itive airway pressure ventilation 03/12/2022 04/21/2022 Dependence on other enabling machines and device s 03/12/2022 04/21/2022 Other specified postprocedural states 03/12/2022 04/21/2022 Personal history of pulmonary embolism 04/21/2022 Rheumatoid arthritis, unspecified 03/12/2022 04/21/2022 Ureteric colic 12/20/2021 04/21/2022 Unspecified abdominal pain 12/08/202104/21 Dyspnea, unspecified 04/05/2021 04/21/2022 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 02/17/2017 12/05/2019 Overview: Added automatically from request for surgery [id number] Acute pain of left knee 12/26/2016 11/14/19 Chronic right shoulder pain 12/26/2016 04/12/2020 Gross hematuria 11/24/2016 11/13/2020 Malignant neoplasm of kidney excluding renal pel vis 10/21/2016 02/27/2017 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, without long-term current use of insulin 09/30/2016 09/30/2016 Neuropathy 09/30/2016 11/13/2020 Last Assessment & Plan: Assessment: stable on rx Asthma with COPD with exacerbation 08/24/2016 02/27/2017 Counseling and coordination of care 12/15/2014 08/24/2016 SUMMARY 11/21/2014 08/24/2016 Overview: Indication for hospital admission/procedure: Aortic aneurysm LVEF: 65% LVH RVF: Normal Important/Relevant PMH/PSH: BAV, Congenital anomaly of aorta, SIVAKUMAR, Asthma, HTN, HPL, DM, anxiety Preoperative Hospital Course Procedure/Surgeries: 11/17/2014 Mini-BAV repair, Ascending aortic replacement Airway Difficulty: No OR Course: Coagulopathy/bleeding requiring correction with 20u cryo, 8u FFP, 4u plts, 3uprbcs and 2 pump runs for repair of aortic cannulation site Pacing wires: out Postoperative Course/General Impression: S/p AVr/Asc aorta replacement. Plan to wean o2, pep, oob, increase diuresis, cont BB, pain and glucose control. Issues to communicate at signout: CT removed CPAP at night echo done CTA done PT rec acute rehab Needs much encouragement wires out 11/23 d/c to acute rehab today Discharge planning 11/21/2014 05/03/2016 Overview: Pt from [place], [place]. PT rec acute rehab; CM working on placement. Leaving for [facility] in-pt rehab today Hypertension 11/20/2014 02/27/2017 Overview: History: pre op on monopril, norv, Assessment: normotensive currently Plan: Cont BB , cont lasix Atelectasis 11/18/2014 11/19/2014 Overview: Bilateral on CXR. A/P: PEP, EZPAP OOBTC. Volume overload 11/18/2014 08/24/2016 Overview: History: post op Assessment: wt up 5 kg from pre op Plan: cont diuresis On mechanically assisted ventilation 11/17/2014 11/19/2014 Overview: Grade 1 airway. WTE when awake and stable. Extubated on DOS. CPAP at night PEP. Cardiac insufficiency following cardiac surgery 11/17/2014 11/20/2014 Overview: Low CI. CVP low. A/p Epi gtt off. Start BB. Pre-op testing 11/14/2014 08/23/2016 Overview: Images from the original note were not included. [facility] Surgeon: Modesto Cifuentes M.D. Informed Consent Completed: Yes STS Score: unsupported CAD: No Is intended procedure a CABG: No - is a beta hue ordered? No - reason: not indicated H & P completed: Yes 10/28/14 PA/LAT: Completed CT: Completed MRI: N/A LE US: N/A Cath: Yes - reviewed: Yes Echo:Completed EKG: Completed EF %: 65 PI's: N/A Carotid: N/A Mapping: N/A Dental: Completed PFT's: N/A No results for input(s): WBC, HB, HCT, PLT, INR, CREAT in the last 72 hours. UA: Normal HCG:N/A ABO/ABO Confirmed: Yes Blood ordered: No SA Swab: Yes - results: Negative Last Dose of Anticoagulation: OTC 11/12/14 Op Note: N/A Pacemaker Check: N/A Consults: none DM: Yes, A1c: 6.6% Cardiac Surgical prep: N/A SIGNATURE: JERSON Tian CHECKED BY: [email or web address] DATE of SERVICE: 11/14/2014 TIME of SERVICE: 10:59 AM discharge planning 11/10/2014 11/12/2014 Overview: 64yo male without any concerns presently Preop testing 11/10/2014 11/12/2014 Overview: Images from the original note were not included. [facility] Surgeon: Modesto Cifuentes M.D. Informed Consent Completed: pending STS Score: unsupported CAD: Yes - CAD on Problem List: Yes Is intended procedure a CABG: No - is a beta hue ordered? No - reason: not indicated H & P completed: Yes PA/LAT: Completed CT: Completed MRI: N/A LE US: N/A Cath: Yes - reviewed: Yes Echo:Completed EKG: Completed EF %: 65 PI's: Completed Carotid: N/A Mapping: N/A Dental: Pending PFT's: Completed No results for input(s): WBC, HB, HCT, PLT, INR, CREAT in the last 72 hours. UA: Normal HCG:N/A ABO/ABO Confirmed: Yes Blood ordered: No SA Swab: Yes - results: Pending Last Dose of Anticoagulation: vit basa LD 11/03 Op Note: N/A Pacemaker Check: N/A Consults: none DM: No Cardiac Surgical prep: N/A SIGNATURE: Kate Smith RN CHECKED BY: DATE of SERVICE: 11/10/2014 TIME of SERVICE: 10:05 AM Right rotator cuff tear 12/31/2013 08/25/19 17 Pain in joint, shoulder region 12/16/2013 0 08/24/2016 Essential hypertension, benign 12/03/2013 0 11/19/2014 Overview: Home RX; Nortvasc, ACEi A/P: NTg gtt to keep MAPS 65-75. Wean off. Hydralazine prn. Start BB when off Epi. Pain in joint, lower leg 04/16/2013 017 Degenerative tear of medial meniscus 04/16/2013 11/13/2020 Allergic rhinitis 06/29/2012 04/21/2022 Anxiety 07/08/2011 11/13/2020 Overview: Home Rx; Prozac. A/p Restarted Prozac. Esophagitis, unspecified 04/23/2009 017 Acute gastritis without mention of hemorrhage 08/24/2016 Trochanteric bursitis 03/05/2009 11/12/2014 Nontoxic uninodular goiter 01/16/200902/24 Overview: 08/13/19 thyroid right mid-pole thyroid solid nodule 9 x 7 x 4 mm stable since 2016 Last Assessment & Plan: Assessment: under surveillance Nonallopathic lesion of sacr al region, not elsewhere classified 01/02/2009 11/13/2020 Osteoarthrosis, unspecified whether generalized or localized, unspecified site 11/12/2008 11/13/2020 ABSCESS GROIN 07/23/2008 08/23/2016 Obesity, unspecified 07/15/2008 09/16/2020 Pain in joint, pelvic region and thigh 9 08/24/2016 Aneurysm of thoracic aorta 12/05/200704/21 Overview: 05/26/2020 echocardiogram LV size and systolic function normal, ejection fraction 62%, grade 1 ventricular diastolic dysfunction. RV size and RV SF normal, aorta borderline dilated 3.8 cm: Status post aortic valve repair with no regurgitation, peak gradient 33 mmHg, mean gradient 19 mmHg . 07/23/2019 nuclear stress: No inducible ischemia or evidence of scarred myocardium, LV size normal LV SF normal. Ejection fraction 70% 11/17/2014 Mini-BAV repair, Ascending aortic replacement Last Assessment & Plan: Assessment: s/p ascending aorta repair in 2014. 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 Assessment: c/o dry eye Plan: ordered refresh eye drops Last Assessment & Plan: Assessment: prosthetic left eye, eye gtts as needed Generalized anxiety disorder Overview: Anxiety, Generalized Unspecified asthma(493.90) 09/02 Asthma 08/24/2016 documented as of this encounter (statuses as of 10/06/2022) [facility]11-10-2022 History of Past illness Narrative* Problem Noted Date Resolved Date Depressive disorder 04/21/2022 04/21/2022 Postoperative pneumonia 04/21/2022 04/21/20 22 Viral infection 04/21/2022 04/21/2022 Lumbosacral spondylosis with radiculopathy 03/2804/27/2022 Dependence on continuous pos itive airway pressure ventilation 03/12/2022 04/21/2022 Dependence on other enabling machines and device s 03/12/2022 04/21/2022 Other specified postprocedural states 03/12/2022 04/21/2022 Personal history of pulmonary embolism 04/21/2022 Rheumatoid arthritis, unspecified 03/12/2022 04/21/2022 Ureteric colic 12/20/2021 04/21/2022 Unspecified abdominal pain 12/08/202104/21 Dyspnea, unspecified 04/05/2021 04/21/2022 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 02/17/2017 12/05/2019 Overview: Added automatically from request for surgery [id number] Acute pain of left knee 12/26/2016 11/14/19 Chronic right shoulder pain 12/26/2016 04/0 12/2020 Gross hematuria 11/24/2016 11/13/2020 Malignant neoplasm of kidney excluding renal pel vis 10/21/2016 02/27/2017 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, without long-term current use of insulin 09/30/2016 09/30/2016 Neuropathy 09/30/2016 11/13/2020 Last Assessment & Plan: Assessment: stable on rx Asthma with COPD with exacerbation 08/24/2016 02/27/2017 Counseling and coordination of care 12/15/2014 08/24/2016 SUMMARY 11/21/2014 08/24/2016 Overview: Indication for hospital admission/procedure: Aortic aneurysm LVEF: 65% LVH RVF: Normal Important/Relevant PMH/PSH: BAV, Congenital anomaly of aorta, SIVAKUMAR, Asthma, HTN, HPL, DM, anxiety Preoperative Hospital Course Procedure/Surgeries: 11/17/2014 Mini-BAV repair, Ascending aortic replacement Airway Difficulty: No OR Course: Coagulopathy/bleeding requiring correction with 20u cryo, 8u FFP, 4u plts, 3uprbcs and 2 pump runs for repair of aortic cannulation site Pacing wires: out Postoperative Course/General Impression: S/p AVr/Asc aorta replacement. Plan to wean o2, pep, oob, increase diuresis, cont BB, pain and glucose control. Issues to communicate at signout: CT removed CPAP at night echo done CTA done PT rec acute rehab Needs much encouragement wires out / d/c to acute rehab today Discharge planning 11/21/2014 05/03/2016 Overview: Pt from [place], [place]. PT rec acute rehab; CM working on placement. Leaving for [facility] in-pt rehab today Hypertension 11/20/2014 02/27/2017 Overview: History: pre op on monopril, norv, Assessment: normotensive currently Plan: Cont BB , cont lasix Atelectasis 11/18/2014 11/19/2014 Overview: Bilateral on CXR. A/P: PEP, EZPAP OOBTC. Volume overload 11/18/2014 08/24/2016 Overview: History: post op Assessment: wt up 5 kg from pre op Plan: cont diuresis On mechanically assisted ventilation 11/17/2014 11/19/2014 Overview: Grade 1 airway. WTE when awake and stable. Extubated on DOS. CPAP at night PEP. Cardiac insufficiency following cardiac surgery 11/17/2014 11/20/2014 Overview: Low CI. CVP low. A/p Epi gtt off. Start BB. Pre-op testing 11/14/2014 08/23/2016 Overview: Images from the original note were not included. [facility] Surgeon: Modesto Cifuentes M.D. Informed Consent Completed: Yes STS Score: unsupported CAD: No Is intended procedure a CABG: No - is a beta hue ordered? No - reason: not indicated H & P completed: Yes 10/28/14 PA/LAT: Completed CT: Completed MRI: N/A LE US: N/A Cath: Yes - reviewed: Yes Echo:Completed EKG: Completed EF %: 65 PI's: N/A Carotid: N/A Mapping: N/A Dental: Completed PFT's: N/A No results for input(s): WBC, HB, HCT, PLT, INR, CREAT in the last 72 hours. UA: Normal HCG:N/A ABO/ABO Confirmed: Yes Blood ordered: No SA Swab: Yes - results: Negative Last Dose of Anticoagulation: OTC 11/12/14 Op Note: N/A Pacemaker Check: N/A Consults: none DM: Yes, A1c: 6.6% Cardiac Surgical prep: N/A SIGNATURE: JERSON Tian CHECKED BY: [email or web address] DATE of SERVICE: 11/14/2014 TIME of SERVICE: 10:59 AM discharge planning 11/10/2014 11/12/2014 Overview: 64yo male without any concerns presently Preop testing 11/10/2014 11/12/2014 Overview: Images from the original note were not included. [facility] Surgeon: Modesto Cifuentes M.D. Informed Consent Completed: pending STS Score: unsupported CAD: Yes - CAD on Problem List: Yes Is intended procedure a CABG: No - is a beta hue ordered? No - reason: not indicated H & P completed: Yes PA/LAT: Completed CT: Completed MRI: N/A LE US: N/A Cath: Yes - reviewed: Yes Echo:Completed EKG: Completed EF %: 65 PI's: Completed Carotid: N/A Mapping: N/A Dental: Pending PFT's: Completed No results for input(s): WBC, HB, HCT, PLT, INR, CREAT in the last 72 hours. UA: Normal HCG:N/A ABO/ABO Confirmed: Yes Blood ordered: No SA Swab: Yes - results: Pending Last Dose of Anticoagulation: vit basa LD 11/03 Op Note: N/A Pacemaker Check: N/A Consults: none DM: No Cardiac Surgical prep: N/A SIGNATURE: Kate Smith RN CHECKED BY: DATE of SERVICE: 11/10/2014 TIME of SERVICE: 10:05 AM Right rotator cuff tear 12/31/2013 08/25/19 17 Pain in joint, shoulder region 12/16/2013 0 08/24/2016 Essential hypertension, benign 12/03/2013 0 11/19/2014 Overview: Home RX; Nortvasc, ACEi A/P: NTg gtt to keep MAPS 65-75. Wean off. Hydralazine prn. Start BB when off Epi. Pain in joint, lower leg 04/16/2013 017 Degenerative tear of medial meniscus 04/16/2013 11/13/2020 Allergic rhinitis 06/29/2012 04/21/2022 Anxiety 07/08/2011 11/13/2020 Overview: Home Rx; Prozac. A/p Restarted Prozac. Esophagitis, unspecified 04/23/2009 017 Acute gastritis without mention of hemorrhage 08/24/2016 Trochanteric bursitis 03/05/2009 11/12/2014 Nontoxic uninodular goiter 01/16/200902/24 Overview: 08/13/19 US thyroid right mid-pole thyroid solid nodule 9 x 7 x 4 mm stable since 2016 Last Assessment & Plan: Assessment: under surveillance Nonallopathic lesion of sacr al region, not elsewhere classified 01/02/2009 11/13/2020 Osteoarthrosis, unspecified whether generalized or localized, unspecified site 11/12/2008 11/13/2020 ABSCESS GROIN 07/23/2008 08/23/2016 Obesity, unspecified 07/15/2008 09/16/2020 Pain in joint, pelvic region and thigh 08/24/2016 Aneurysm of thoracic aorta 12/05/200704/21 Overview: 05/26/2020 echocardiogram LV size and systolic function normal, ejection fraction 62%, grade 1 ventricular diastolic dysfunction. RV size and RV SF normal, aorta borderline dilated 3.8 cm: Status post aortic valve repair with no regurgitation, peak gradient 33 mmHg, mean gradient 19 mmHg . 07/23/2019 nuclear stress: No inducible ischemia or evidence of scarred myocardium, LV size normal LV SF normal. Ejection fraction 70% 11/17/2014 Mini-BAV repair, Ascending aortic replacement Last Assessment & Plan: Assessment: s/p ascending aorta repair in 2014. 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 Assessment: c/o dry eye Plan: ordered refresh eye drops Last Assessment & Plan: Assessment: prosthetic left eye, eye gtts as needed Generalized anxiety disorder Overview: Anxiety, Generalized Unspecified asthma(493.90) 09/02 Asthma 08/24/2016 documented as of this encounter (statuses as of 10/06/2022) [facility] History of Past illness Narrative* Problem Noted Date Resolved Date Depressive disorder 04/21/2022 04/21/2022 Postoperative pneumonia 04/21/2022 04/21/20 22 Viral infection 04/21/2022 04/21/2022 Lumbosacral spondylosis with radiculopathy 03/2804/27/2022 Dependence on continuous pos itive airway pressure ventilation 03/12/2022 04/21/2022 Dependence on other enabling machines and device s 03/12/2022 04/21/2022 Other specified postprocedural states 03/12/2022 04/21/2022 Personal history of pulmonary embolism 04/21/2022 Rheumatoid arthritis, unspecified 03/12/2022 04/21/2022 Ureteric colic 12/20/2021 04/21/2022 Unspecified abdominal pain 12/08/202104/21 Dyspnea, unspecified 04/05/2021 04/21/2022 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 02/17/2017 12/05/2019 Overview: Added automatically from request for surgery [id number] Acute pain of left knee 12/26/2016 11/14/19 Chronic right shoulder pain 12/26/2016 04/0 12/2020 Gross hematuria 11/24/2016 11/13/2020 Malignant neoplasm of kidney excluding renal pel vis 10/21/2016 02/27/2017 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, without long-term current use of insulin 09/30/2016 09/30/2016 Neuropathy 09/30/2016 11/13/2020 Last Assessment & Plan: Assessment: stable on rx Asthma with COPD with exacerbation 08/24/2016 02/27/2017 Counseling and coordination of care 12/15/2014 08/24/2016 SUMMARY 11/21/2014 08/24/2016 Overview: Indication for hospital admission/procedure: Aortic aneurysm LVEF: 65% LVH RVF: Normal Important/Relevant PMH/PSH: BAV, Congenital anomaly of aorta, SIVAKUMAR, Asthma, HTN, HPL, DM, anxiety Preoperative Hospital Course Procedure/Surgeries: 11/17/2014 Mini-BAV repair, Ascending aortic replacement Airway Difficulty: No OR Course: Coagulopathy/bleeding requiring correction with 20u cryo, 8u FFP, 4u plts, 3uprbcs and 2 pump runs for repair of aortic cannulation site Pacing wires: out Postoperative Course/General Impression: S/p AVr/Asc aorta replacement. Plan to wean o2, pep, oob, increase diuresis, cont BB, pain and glucose control. Issues to communicate at signout: CT removed CPAP at night echo done CTA done PT rec acute rehab Needs much encouragement wires out 11/23 d/c to acute rehab today Discharge planning 11/21/2014 05/03/2016 Overview: Pt from [place], [place]. PT rec acute rehab; CM working on placement. Leaving for [facility] in-pt rehab today Hypertension 11/20/2014 02/27/2017 Overview: History: pre op on monopril, norv, Assessment: normotensive currently Plan: Cont BB , cont lasix Atelectasis 11/18/2014 11/19/2014 Overview: Bilateral on CXR. A/P: PEP, EZPAP OOBTC. Volume overload 11/18/2014 08/24/2016 Overview: History: post op Assessment: wt up 5 kg from pre op Plan: cont diuresis On mechanically assisted ventilation 11/17/2014 11/19/2014 Overview: Grade 1 airway. WTE when awake and stable. Extubated on DOS. CPAP at night PEP. Cardiac insufficiency following cardiac surgery 11/17/2014 11/20/2014 Overview: Low CI. CVP low. A/p Epi gtt off. Start BB. Pre-op testing 11/14/2014 08/23/2016 Overview: Images from the original note were not included. [facility] Surgeon: Modesto Cifuentes M.D. Informed Consent Completed: Yes STS Score: unsupported CAD: No Is intended procedure a CABG: No - is a beta hue ordered? No - reason: not indicated H & P completed: Yes 10/28/14 PA/LAT: Completed CT: Completed MRI: N/A LE US: N/A Cath: Yes - reviewed: Yes Echo:Completed EKG: Completed EF %: 65 PI's: N/A Carotid: N/A Mapping: N/A Dental: Completed PFT's: N/A No results for input(s): WBC, HB, HCT, PLT, INR, CREAT in the last 72 hours. UA: Normal HCG:N/A ABO/ABO Confirmed: Yes Blood ordered: No SA Swab: Yes - results: Negative Last Dose of Anticoagulation: OTC 11/12/14 Op Note: N/A Pacemaker Check: N/A Consults: none DM: Yes, A1c: 6.6% Cardiac Surgical prep: N/A SIGNATURE: JERSON Tian CHECKED BY: [email or web address] DATE of SERVICE: 11/14/2014 TIME of SERVICE: 10:59 AM discharge planning 11/10/2014 11/12/2014 Overview: 64yo male without any concerns presently Preop testing 11/10/2014 11/12/2014 Overview: Images from the original note were not included. [facility] Surgeon: Modesto Cifuentes M.D. Informed Consent Completed: pending STS Score: unsupported CAD: Yes - CAD on Problem List: Yes Is intended procedure a CABG: No - is a beta hue ordered? No - reason: not indicated H & P completed: Yes PA/LAT: Completed CT: Completed MRI: N/A LE US: N/A Cath: Yes - reviewed: Yes Echo:Completed EKG: Completed EF %: 65 PI's: Completed Carotid: N/A Mapping: N/A Dental: Pending PFT's: Completed No results for input(s): WBC, HB, HCT, PLT, INR, CREAT in the last 72 hours. UA: Normal HCG:N/A ABO/ABO Confirmed: Yes Blood ordered: No SA Swab: Yes - results: Pending Last Dose of Anticoagulation: vit basa LD 11/03 Op Note: N/A Pacemaker Check: N/A Consults: none DM: No Cardiac Surgical prep: N/A SIGNATURE: Kate Smith RN CHECKED BY: DATE of SERVICE: 11/10/2014 TIME of SERVICE: 10:05 AM Right rotator cuff tear 12/31/2013 08/25/19 17 Pain in joint, shoulder region 12/16/2013 0 08/24/2016 Essential hypertension, benign 12/03/2013 0 11/19/2014 Overview: Home RX; Nortvasc, ACEi A/P: NTg gtt to keep MAPS 65-75. Wean off. Hydralazine prn. Start BB when off Epi. Pain in joint, lower leg 04/16/2013 017 Degenerative tear of medial meniscus 04/16/2013 11/13/2020 Allergic rhinitis 06/29/2012 04/21/2022 Anxiety 07/08/2011 11/13/2020 Overview: Home Rx; Prozac. A/p Restarted Prozac. Esophagitis, unspecified 04/23/2009 017 Acute gastritis without mention of hemorrhage 08/24/2016 Trochanteric bursitis 03/05/2009 11/12/2014 Nontoxic uninodular goiter 01/16/200902/24 Overview: 08/13/19 thyroid right mid-pole thyroid solid nodule 9 x 7 x 4 mm stable since 2016 Last Assessment & Plan: Assessment: under surveillance Nonallopathic lesion of sacr al region, not elsewhere classified 01/02/2009 11/13/2020 Osteoarthrosis, unspecified whether generalized or localized, unspecified site 11/12/2008 11/13/2020 ABSCESS GROIN 07/23/2008 08/23/2016 Obesity, unspecified 07/15/2008 09/16/2020 Pain in joint, pelvic region and thigh 08/24/2016 Aneurysm of thoracic aorta 12/05/200704/21 Overview: 05/26/2020 echocardiogram LV size and systolic function normal, ejection fraction 62%, grade 1 ventricular diastolic dysfunction. RV size and RV SF normal, aorta borderline dilated 3.8 cm: Status post aortic valve repair with no regurgitation, peak gradient 33 mmHg, mean gradient 19 mmHg . 07/23/2019 nuclear stress: No inducible ischemia or evidence of scarred myocardium, LV size normal LV SF normal. Ejection fraction 70% 11/17/2014 Mini-BAV repair, Ascending aortic replacement Last Assessment & Plan: Assessment: s/p ascending aorta repair in 2014. 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 Assessment: c/o dry eye Plan: ordered refresh eye drops Last Assessment & Plan: Assessment: prosthetic left eye, eye gtts as needed Generalized anxiety disorder Overview: Anxiety, Generalized Unspecified asthma(493.90) 09/02 Asthma 08/24/2016 documented as of this encounter (statuses as of 10/06/2022) [facility]11-10-2022 History of Past illness Narrative* Problem Noted Date Resolved Date Depressive disorder 04/21/2022 04/21/2022 Postoperative pneumonia 04/21/2022 04/21/20 Viral infection 04/21/2022 04/21/2022 Lumbosacral spondylosis with radiculopathy 03/2804/27/2022 Dependence on continuous pos itive airway pressure ventilation 03/12/2022 04/21/2022 Dependence on other enabling machines and device s 03/12/2022 04/21/2022 Other specified postprocedural states 03/12/2022 04/21/2022 Personal history of pulmonary embolism 04/21/2022 Rheumatoid arthritis, unspecified 03/12/2022 04/21/2022 Ureteric colic 12/20/2021 04/21/2022 Unspecified abdominal pain 12/08/202104/21 Dyspnea, unspecified 04/05/2021 04/21/2022 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 02/17/2017 12/05/2019 Overview: Added automatically from request for surgery [id number] Acute pain of left knee 12/26/2016 11/14/19 21 Chronic right shoulder pain 12/26/2016 04/0 12/2020 Gross hematuria 11/24/2016 11/13/2020 Malignant neoplasm of kidney excluding renal pel vis 10/21/2016 02/27/2017 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, without long-term current use of insulin 09/30/2016 09/30/2016 Neuropathy 09/30/2016 11/13/2020 Last Assessment & Plan: Assessment: stable on rx Asthma with COPD with exacerbation 08/24/2016 02/27/2017 Counseling and coordination of care 12/15/2014 08/24/2016 SUMMARY 11/21/2014 08/24/2016 Overview: Indication for hospital admission/procedure: Aortic aneurysm LVEF: 65% LVH RVF: Normal Important/Relevant PMH/PSH: BAV, Congenital anomaly of aorta, SIVAKUMAR, Asthma, HTN, HPL, DM, anxiety Preoperative Hospital Course Procedure/Surgeries: 11/17/2014 Mini-BAV repair, Ascending aortic replacement Airway Difficulty: No OR Course: Coagulopathy/bleeding requiring correction with 20u cryo, 8u FFP, 4u plts, 3uprbcs and 2 pump runs for repair of aortic cannulation site Pacing wires: out Postoperative Course/General Impression: S/p AVr/Asc aorta replacement. Plan to wean o2, pep, oob, increase diuresis, cont BB, pain and glucose control. Issues to communicate at signout: CT removed CPAP at night echo done CTA done PT rec acute rehab Needs much encouragement wires out 11/23 d/c to acute rehab today Discharge planning 11/21/2014 05/03/2016 Overview: Pt from [place], [place]. PT rec acute rehab; CM working on placement. Leaving for [facility] in-pt rehab today Hypertension 11/20/2014 02/27/2017 Overview: History: pre op on monopril, norv, Assessment: normotensive currently Plan: Cont BB , cont lasix Atelectasis 11/18/2014 11/19/2014 Overview: Bilateral on CXR. A/P: PEP, EZPAP OOBTC. Volume overload 11/18/2014 08/24/2016 Overview: History: post op Assessment: wt up 5 kg from pre op Plan: cont diuresis On mechanically assisted ventilation 11/17/2014 11/19/2014 Overview: Grade 1 airway. WTE when awake and stable. Extubated on DOS. CPAP at night PEP. Cardiac insufficiency following cardiac surgery 11/17/2014 11/20/2014 Overview: Low CI. CVP low. A/p Epi gtt off. Start BB. Pre-op testing 11/14/2014 08/23/2016 Overview: Images from the original note were not included. [facility] PRE-[facility] CHECK[facility] Surgeon: Modesto Cifuentes M.D. Informed Consent Completed: Yes STS Score: unsupported CAD: No Is intended procedure a CABG: No - is a beta hue ordered? No - reason: not indicated H & P completed: Yes 10/28/14 PA/LAT: Completed CT: Completed MRI: N/A LE US: N/A Cath: Yes - reviewed: Yes Echo:Completed EKG: Completed EF %: 65 PI's: N/A Carotid: N/A Mapping: N/A Dental: Completed PFT's: N/A No results for input(s): WBC, HB, HCT, PLT, INR, CREAT in the last 72 hours. UA: Normal HCG:N/A ABO/ABO Confirmed: Yes Blood ordered: No SA Swab: Yes - results: Negative Last Dose of Anticoagulation: OTC 11/12/14 Op Note: N/A Pacemaker Check: N/A Consults: none DM: Yes, A1c: 6.6% Cardiac Surgical prep: N/A SIGNATURE: JERSON Tian CHECKED BY: [email or web address] DATE of SERVICE: 11/14/2014 TIME of SERVICE: 10:59 AM discharge planning 11/10/2014 11/12/2014 Overview: 64yo male without any concerns presently Preop testing 11/10/2014 11/12/2014 Overview: Images from the original note were not included. [facility] PRE-OP CHECK[facility] Surgeon: Modesto Cifuentes M.D. Informed Consent Completed: pending STS Score: unsupported CAD: Yes - CAD on Problem List: Yes Is intended procedure a CABG: No - is a beta hue ordered? No - reason: not indicated H & P completed: Yes PA/LAT: Completed CT: Completed MRI: N/A LE US: N/A Cath: Yes - reviewed: Yes Echo:Completed EKG: Completed EF %: 65 PI's: Completed Carotid: N/A Mapping: N/A Dental: Pending PFT's: Completed No results for input(s): WBC, HB, HCT, PLT, INR, CREAT in the last 72 hours. UA: Normal HCG:N/A ABO/ABO Confirmed: Yes Blood ordered: No SA Swab: Yes - results: Pending Last Dose of Anticoagulation: vit basa LD 11/03 Op Note: N/A Pacemaker Check: N/A Consults: none DM: No Cardiac Surgical prep: N/A SIGNATURE: Kate Smith RN CHECKED BY: DATE of SERVICE: 11/10/2014 TIME of SERVICE: 10:05 AM Right rotator cuff tear 12/31/2013 08/25/19 17 Pain in joint, shoulder region 12/16/2013 0 08/24/2016 Essential hypertension, benign 12/03/2013 0 11/19/2014 Overview: Home RX; Nortvasc, ACEi A/P: NTg gtt to keep MAPS 65-75. Wean off. Hydralazine prn. Start BB when off Epi. Pain in joint, lower leg 04/16/2013 017 Degenerative tear of medial meniscus 04/16/2013 11/13/2020 Allergic rhinitis 06/29/2012 04/21/2022 Anxiety 07/08/2011 11/13/2020 Overview: Home Rx; Prozac. A/p Restarted Prozac. Esophagitis, unspecified 04/23/2009 017 Acute gastritis without mention of hemorrhage 08/24/2016 Trochanteric bursitis 03/05/2009 11/12/2014 Nontoxic uninodular goiter 01/16/200902/24 Overview: 08/13/19 US thyroid right mid-pole thyroid solid nodule 9 x 7 x 4 mm stable since 2016 Last Assessment & Plan: Assessment: under surveillance Nonallopathic lesion of sacr al region, not elsewhere classified 01/02/2009 11/13/2020 Osteoarthrosis, unspecified whether generalized or localized, unspecified site 11/12/2008 11/13/2020 ABSCESS GROIN 07/23/2008 08/23/2016 Obesity, unspecified 07/15/2008 09/16/2020 Pain in joint, pelvic region and thigh 9 08/24/2016 Aneurysm of thoracic aorta 12/05/200704/21 Overview: 05/26/2020 echocardiogram LV size and systolic function normal, ejection fraction 62%, grade 1 ventricular diastolic dysfunction. RV size and RV SF normal, aorta borderline dilated 3.8 cm: Status post aortic valve repair with no regurgitation, peak gradient 33 mmHg, mean gradient 19 mmHg . 07/23/2019 nuclear stress: No inducible ischemia or evidence of scarred myocardium, LV size normal LV SF normal. Ejection fraction 70% 11/17/2014 Mini-BAV repair, Ascending aortic replacement Last Assessment & Plan: Assessment: s/p ascending aorta repair in 2014. 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 Assessment: c/o dry eye Plan: ordered refresh eye drops Last Assessment & Plan: Assessment: prosthetic left eye, eye gtts as needed Generalized anxiety disorder Overview: Anxiety, Generalized Unspecified asthma(493.90) 09/02 Asthma 08/24/2016 documented as of this encounter (statuses as of 10/07/2022) [facility]11-10-2022 History of Past illness Narrative* Problem Noted Date Resolved Date Depressive disorder 04/21/2022 04/21/2022 Postoperative pneumonia 04/21/2022 04/21/20 22 Viral infection 04/21/2022 04/21/2022 Lumbosacral spondylosis with radiculopathy 03/2804/27/2022 Dependence on continuous pos itive airway pressure ventilation 03/12/2022 04/21/2022 Dependence on other enabling machines and device s 03/12/2022 04/21/2022 Other specified postprocedural states 03/12/2022 04/21/2022 Personal history of pulmonary embolism 04/21/2022 Rheumatoid arthritis, unspecified 03/12/2022 04/21/2022 Ureteric colic 12/20/2021 04/21/2022 Unspecified abdominal pain 12/08/202104/21 Dyspnea, unspecified 04/05/2021 04/21/2022 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 02/17/2017 12/05/2019 Overview: Added automatically from request for surgery [id number] Acute pain of left knee 12/26/2016 11/14/19 Chronic right shoulder pain 12/26/2016 04/0 12/2020 Gross hematuria 11/24/2016 11/13/2020 Malignant neoplasm of kidney excluding renal pel vis 10/21/2016 02/27/2017 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, without long-term current use of insulin 09/30/2016 09/30/2016 Neuropathy 09/30/2016 11/13/2020 Last Assessment & Plan: Assessment: stable on rx Asthma with COPD with exacerbation 08/24/2016 02/27/2017 Counseling and coordination of care 12/15/2014 08/24/2016 SUMMARY 11/21/2014 08/24/2016 Overview: Indication for hospital admission/procedure: Aortic aneurysm LVEF: 65% LVH RVF: Normal Important/Relevant PMH/PSH: BAV, Congenital anomaly of aorta, SIVAKUMAR, Asthma, HTN, HPL, DM, anxiety Preoperative Hospital Course Procedure/Surgeries: 11/17/2014 Mini-BAV repair, Ascending aortic replacement Airway Difficulty: No OR Course: Coagulopathy/bleeding requiring correction with 20u cryo, 8u FFP, 4u plts, 3uprbcs and 2 pump runs for repair of aortic cannulation site Pacing wires: out Postoperative Course/General Impression: S/p AVr/Asc aorta replacement. Plan to wean o2, pep, oob, increase diuresis, cont BB, pain and glucose control. Issues to communicate at signout: CT removed CPAP at night echo done CTA done PT rec acute rehab Needs much encouragement wires out 11/23 d/c to acute rehab today Discharge planning 11/21/2014 05/03/2016 Overview: Pt from [place], [place]. PT rec acute rehab; CM working on placement. Leaving for [facility] in-pt rehab today Hypertension 11/20/2014 02/27/2017 Overview: History: pre op on monopril, norv, Assessment: normotensive currently Plan: Cont BB , cont lasix Atelectasis 11/18/2014 11/19/2014 Overview: Bilateral on CXR. A/P: PEP, EZPAP OOBTC. Volume overload 11/18/2014 08/24/2016 Overview: History: post op Assessment: wt up 5 kg from pre op Plan: cont diuresis On mechanically assisted ventilation 11/17/2014 11/19/2014 Overview: Grade 1 airway. WTE when awake and stable. Extubated on DOS. CPAP at night PEP. Cardiac insufficiency following cardiac surgery 11/17/2014 11/20/2014 Overview: Low CI. CVP low. A/p Epi gtt off. Start BB. Pre-op testing 11/14/2014 08/23/2016 Overview: Images from the original note were not included. [facility] Surgeon: Modesto Cifuentes M.D. Informed Consent Completed: Yes STS Score: unsupported CAD: No Is intended procedure a CABG: No - is a beta hue ordered? No - reason: not indicated H & P completed: Yes 10/28/14 PA/LAT: Completed CT: Completed MRI: N/A LE US: N/A Cath: Yes - reviewed: Yes Echo:Completed EKG: Completed EF %: 65 PI's: N/A Carotid: N/A Mapping: N/A Dental: Completed PFT's: N/A No results for input(s): WBC, HB, HCT, PLT, INR, CREAT in the last 72 hours. UA: Normal HCG:N/A ABO/ABO Confirmed: Yes Blood ordered: No SA Swab: Yes - results: Negative Last Dose of Anticoagulation: OTC 11/12/14 Op Note: N/A Pacemaker Check: N/A Consults: none DM: Yes, A1c: 6.6% Cardiac Surgical prep: N/A SIGNATURE: JERSON Tian CHECKED BY: [email or web address] DATE of SERVICE: 11/14/2014 TIME of SERVICE: 10:59 AM discharge planning 11/10/2014 11/12/2014 Overview: 64yo male without any concerns presently Preop testing 11/10/2014 11/12/2014 Overview: Images from the original note were not included. [facility] PRE-OP CHECKLIST Surgeon: Modesto Cifuentes M.D. Informed Consent Completed: pending STS Score: unsupported CAD: Yes - CAD on Problem List: Yes Is intended procedure a CABG: No - is a beta hue ordered? No - reason: not indicated H & P completed: Yes PA/LAT: Completed CT: Completed MRI: N/A LE US: N/A Cath: Yes - reviewed: Yes Echo:Completed EKG: Completed EF %: 65 PI's: Completed Carotid: N/A Mapping: N/A Dental: Pending PFT's: Completed No results for input(s): WBC, HB, HCT, PLT, INR, CREAT in the last 72 hours. UA: Normal HCG:N/A ABO/ABO Confirmed: Yes Blood ordered: No SA Swab: Yes - results: Pending Last Dose of Anticoagulation: vit basa LD 11/03 Op Note: N/A Pacemaker Check: N/A Consults: none DM: No Cardiac Surgical prep: N/A SIGNATURE: Kate Smith RN CHECKED BY: DATE of SERVICE: 11/10/2014 TIME of SERVICE: 10:05 AM Right rotator cuff tear 12/31/2013 08/25/19 17 Pain in joint, shoulder region 12/16/2013 0 08/24/2016 Essential hypertension, benign 12/03/2013 0 11/19/2014 Overview: Home RX; Nortvasc, ACEi A/P: NTg gtt to keep MAPS 65-75. Wean off. Hydralazine prn. Start BB when off Epi. Pain in joint, lower leg 04/16/2013 017 Degenerative tear of medial meniscus 04/16/2013 11/13/2020 Allergic rhinitis 06/29/2012 04/21/2022 Anxiety 07/08/2011 11/13/2020 Overview: Home Rx; Prozac. A/p Restarted Prozac. Esophagitis, unspecified 04/23/2009 017 Acute gastritis without mention of hemorrhage 08/24/2016 Trochanteric bursitis 03/05/2009 11/12/2014 Nontoxic uninodular goiter 01/16/200902/24 Overview: 08/13/19 US thyroid right mid-pole thyroid solid nodule 9 x 7 x 4 mm stable since 2016 Last Assessment & Plan: Assessment: under surveillance Nonallopathic lesion of sacr al region, not elsewhere classified 01/02/2009 11/13/2020 Osteoarthrosis, unspecified whether generalized or localized, unspecified site 11/12/2008 11/13/2020 ABSCESS GROIN 07/23/2008 08/23/2016 Obesity, unspecified 07/15/2008 09/16/2020 Pain in joint, pelvic region and thigh 9 08/24/2016 Aneurysm of thoracic aorta 12/05/200704/21 Overview: 05/26/2020 echocardiogram LV size and systolic function normal, ejection fraction 62%, grade 1 ventricular diastolic dysfunction. RV size and RV SF normal, aorta borderline dilated 3.8 cm: Status post aortic valve repair with no regurgitation, peak gradient 33 mmHg, mean gradient 19 mmHg . 07/23/2019 nuclear stress: No inducible ischemia or evidence of scarred myocardium, LV size normal LV SF normal. Ejection fraction 70% 11/17/2014 Mini-BAV repair, Ascending aortic replacement Last Assessment & Plan: Assessment: s/p ascending aorta repair in 2014. 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 Assessment: c/o dry eye Plan: ordered refresh eye drops Last Assessment & Plan: Assessment: prosthetic left eye, eye gtts as needed Generalized anxiety disorder Overview: Anxiety, Generalized Unspecified asthma(493.90) 09/02 Asthma 08/24/2016 documented as of this encounter (statuses as of 10/07/2022) [facility] History of Past illness Narrative* Problem Noted Date Resolved Date Depressive disorder 04/21/2022 04/21/2022 Postoperative pneumonia 04/21/2022 04/21/20 22 Viral infection 04/21/2022 04/21/2022 Lumbosacral spondylosis with radiculopathy 03/2804/27/2022 Dependence on continuous pos itive airway pressure ventilation 03/12/2022 04/21/2022 Dependence on other enabling machines and device s 03/12/2022 04/21/2022 Other specified postprocedural states 03/12/2022 04/21/2022 Personal history of pulmonary embolism 04/21/2022 Rheumatoid arthritis, unspecified 03/12/2022 04/21/2022 Ureteric colic 12/20/2021 04/21/2022 Unspecified abdominal pain 12/08/202104/21 Dyspnea, unspecified 04/05/2021 04/21/2022 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 02/17/2017 12/05/2019 Overview: Added automatically from request for surgery [id number] Acute pain of left knee 12/26/2016 11/14/19 Chronic right shoulder pain 12/26/201612/2020 Gross hematuria 11/24/2016 11/13/2020 Malignant neoplasm of kidney excluding renal pel vis 10/21/2016 02/27/2017 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, without long-term current use of insulin 09/30/2016 09/30/2016 Neuropathy 09/30/2016 11/13/2020 Last Assessment & Plan: Assessment: stable on rx Asthma with COPD with exacerbation 08/24/2016 02/27/2017 Counseling and coordination of care 12/15/2014 08/24/2016 SUMMARY 11/21/2014 08/24/2016 Overview: Indication for hospital admission/procedure: Aortic aneurysm LVEF: 65% LVH RVF: Normal Important/Relevant PMH/PSH: BAV, Congenital anomaly of aorta, SIVAKUMAR, Asthma, HTN, HPL, DM, anxiety Preoperative Hospital Course Procedure/Surgeries: 11/17/2014 Mini-BAV repair, Ascending aortic replacement Airway Difficulty: No OR Course: Coagulopathy/bleeding requiring correction with 20u cryo, 8u FFP, 4u plts, 3uprbcs and 2 pump runs for repair of aortic cannulation site Pacing wires: out Postoperative Course/General Impression: S/p AVr/Asc aorta replacement. Plan to wean o2, pep, oob, increase diuresis, cont BB, pain and glucose control. Issues to communicate at signout: CT removed CPAP at night echo done CTA done PT rec acute rehab Needs much encouragement wires out 11/23 d/c to acute rehab today Discharge planning 11/21/2014 05/03/2016 Overview: Pt from [place], [place]. PT rec acute rehab; CM working on placement. Leaving for [facility] in-pt rehab today Hypertension 11/20/2014 02/27/2017 Overview: History: pre op on monopril, norv, Assessment: normotensive currently Plan: Cont BB , cont lasix Atelectasis 11/18/2014 11/19/2014 Overview: Bilateral on CXR. A/P: PEP, EZPAP OOBTC. Volume overload 11/18/2014 08/24/2016 Overview: History: post op Assessment: wt up 5 kg from pre op Plan: cont diuresis On mechanically assisted ventilation 11/17/2014 11/19/2014 Overview: Grade 1 airway. WTE when awake and stable. Extubated on DOS. CPAP at night PEP. Cardiac insufficiency following cardiac surgery 11/17/2014 11/20/2014 Overview: Low CI. CVP low. A/p Epi gtt off. Start BB. Pre-op testing 11/14/2014 08/23/2016 Overview: Images from the original note were not included. [facility] Surgeon: Modesto Cifuentes M.D. Informed Consent Completed: Yes STS Score: unsupported CAD: No Is intended procedure a CABG: No - is a beta hue ordered? No - reason: not indicated H & P completed: Yes 10/28/14 PA/LAT: Completed CT: Completed MRI: N/A LE US: N/A Cath: Yes - reviewed: Yes Echo:Completed EKG: Completed EF %: 65 PI's: N/A Carotid: N/A Mapping: N/A Dental: Completed PFT's: N/A No results for input(s): WBC, HB, HCT, PLT, INR, CREAT in the last 72 hours. UA: Normal HCG:N/A ABO/ABO Confirmed: Yes Blood ordered: No SA Swab: Yes - results: Negative Last Dose of Anticoagulation: OTC 11/12/14 Op Note: N/A Pacemaker Check: N/A Consults: none DM: Yes, A1c: 6.6% Cardiac Surgical prep: N/A SIGNATURE: Lauar Mathews [employer] TECHNICIAN CHECKED BY: [email or web address] DATE of SERVICE: 11/14/2014 TIME of SERVICE: 10:59 AM discharge planning 11/10/2014 11/12/2014 Overview: 64yo male without any concerns presently Preop testing 11/10/2014 11/12/2014 Overview: Images from the original note were not included. [facility] Surgeon: Modesto Cifuentes M.D. Informed Consent Completed: pending STS Score: unsupported CAD: Yes - CAD on Problem List: Yes Is intended procedure a CABG: No - is a beta hue ordered? No - reason: not indicated H & P completed: Yes PA/LAT: Completed CT: Completed MRI: N/A LE US: N/A Cath: Yes - reviewed: Yes Echo:Completed EKG: Completed EF %: 65 PI's: Completed Carotid: N/A Mapping: N/A Dental: Pending PFT's: Completed No results for input(s): WBC, HB, HCT, PLT, INR, CREAT in the last 72 hours. UA: Normal HCG:N/A ABO/ABO Confirmed: Yes Blood ordered: No SA Swab: Yes - results: Pending Last Dose of Anticoagulation: vit basa LD 11/03 Op Note: N/A Pacemaker Check: N/A Consults: none DM: No Cardiac Surgical prep: N/A SIGNATURE: Kate Smith RN CHECKED BY: DATE of SERVICE: 11/10/2014 TIME of SERVICE: 10:05 AM Right rotator cuff tear 12/31/2013 08/25/19 17 Pain in joint, shoulder region 12/16/2013 0 08/24/2016 Essential hypertension, benign 12/03/2013 0 11/19/2014 Overview: Home RX; Nortvasc, ACEi A/P: NTg gtt to keep MAPS 65-75. Wean off. Hydralazine prn. Start BB when off Epi. Pain in joint, lower leg 04/16/2013 017 Degenerative tear of medial meniscus 04/16/2013 11/13/2020 Allergic rhinitis 06/29/2012 04/21/2022 Anxiety 07/08/2011 11/13/2020 Overview: Home Rx; Prozac. A/p Restarted Prozac. Esophagitis, unspecified 04/23/2009 017 Acute gastritis without mention of hemorrhage 08/24/2016 Trochanteric bursitis 03/05/2009 11/12/2014 Nontoxic uninodular goiter 01/16/200902/24 Overview: 08/13/19 thyroid right mid-pole thyroid solid nodule 9 x 7 x 4 mm stable since 2016 Last Assessment & Plan: Assessment: under surveillance Nonallopathic lesion of sacr al region, not elsewhere classified 01/02/2009 11/13/2020 Osteoarthrosis, unspecified whether generalized or localized, unspecified site 11/12/2008 11/13/2020 ABSCESS GROIN 07/23/2008 08/23/2016 Obesity, unspecified 07/15/2008 09/16/2020 Pain in joint, pelvic region and thigh 9 08/24/2016 Aneurysm of thoracic aorta 12/05/200704/21 Overview: 05/26/2020 echocardiogram LV size and systolic function normal, ejection fraction 62%, grade 1 ventricular diastolic dysfunction. RV size and RV SF normal, aorta borderline dilated 3.8 cm: Status post aortic valve repair with no regurgitation, peak gradient 33 mmHg, mean gradient 19 mmHg . 07/23/2019 nuclear stress: No inducible ischemia or evidence of scarred myocardium, LV size normal LV SF normal. Ejection fraction 70% 11/17/2014 Mini-BAV repair, Ascending aortic replacement Last Assessment & Plan: Assessment: s/p ascending aorta repair in 2014. 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 Assessment: c/o dry eye Plan: ordered refresh eye drops Last Assessment & Plan: Assessment: prosthetic left eye, eye gtts as needed Generalized anxiety disorder Overview: Anxiety, Generalized Unspecified asthma(493.90) 09/02 Asthma 08/24/2016 documented as of this encounter (statuses as of 10/10/2022) [facility]11-10-2022 History of Past illness Narrative* Problem Noted Date Resolved Date Depressive disorder 04/21/2022 04/21/2022 Postoperative pneumonia 04/21/2022 04/21/20 22 Viral infection 04/21/2022 04/21/2022 Lumbosacral spondylosis with radiculopathy 03/2804/27/2022 Dependence on continuous pos itive airway pressure ventilation 03/12/2022 04/21/2022 Dependence on other enabling machines and device s 03/12/2022 04/21/2022 Other specified postprocedural states 03/12/2022 04/21/2022 Personal history of pulmonary embolism 2 04/21/2022 Rheumatoid arthritis, unspecified 03/12/2022 04/21/2022 Ureteric colic 12/20/2021 04/21/2022 Unspecified abdominal pain 12/08/202104/21 Dyspnea, unspecified 04/05/2021 04/21/2022 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 02/17/2017 12/05/2019 Overview: Added automatically from request for surgery [id number] Acute pain of left knee 12/26/2016 11/14/19 Chronic right shoulder pain 12/26/2016 04/0 12/2020 Gross hematuria 11/24/2016 11/13/2020 Malignant neoplasm of kidney excluding renal pel vis 10/21/2016 02/27/2017 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, without long-term current use of insulin 09/30/2016 09/30/2016 Neuropathy 09/30/2016 11/13/2020 Last Assessment & Plan: Assessment: stable on rx Asthma with COPD with exacerbation 08/24/2016 02/27/2017 Counseling and coordination of care 12/15/2014 08/24/2016 SUMMARY 11/21/2014 08/24/2016 Overview: Indication for hospital admission/procedure: Aortic aneurysm LVEF: 65% LVH RVF: Normal Important/Relevant PMH/PSH: BAV, Congenital anomaly of aorta, SIVAKUMAR, Asthma, HTN, HPL, DM, anxiety Preoperative Hospital Course Procedure/Surgeries: 11/17/2014 Mini-BAV repair, Ascending aortic replacement Airway Difficulty: No OR Course: Coagulopathy/bleeding requiring correction with 20u cryo, 8u FFP, 4u plts, 3uprbcs and 2 pump runs for repair of aortic cannulation site Pacing wires: out Postoperative Course/General Impression: S/p AVr/Asc aorta replacement. Plan to wean o2, pep, oob, increase diuresis, cont BB, pain and glucose control. Issues to communicate at signout: CT removed CPAP at night echo done CTA done PT rec acute rehab Needs much encouragement wires out 11/23 d/c to acute rehab today Discharge planning 11/21/2014 05/03/2016 Overview: Pt from [place], [place]. PT rec acute rehab; CM working on placement. Leaving for [facility] in-[facility] rehab today Hypertension 11/20/2014 02/27/2017 Overview: History: pre op on monopril, norv, Assessment: normotensive currently Plan: Cont BB , cont lasix Atelectasis 11/18/2014 11/19/2014 Overview: Bilateral on CXR. A/P: PEP, EZPAP OOBTC. Volume overload 11/18/2014 08/24/2016 Overview: History: post op Assessment: wt up 5 kg from pre op Plan: cont diuresis On mechanically assisted ventilation 11/17/2014 11/19/2014 Overview: Grade 1 airway. WTE when awake and stable. Extubated on DOS. CPAP at night PEP. Cardiac insufficiency following cardiac surgery 11/17/2014 11/20/2014 Overview: Low CI. CVP low. A/p Epi gtt off. Start BB. Pre-op testing 11/14/2014 08/23/2016 Overview: Images from the original note were not included. [facility] Surgeon: Modesto Cifuentes M.D. Informed Consent Completed: Yes STS Score: unsupported CAD: No Is intended procedure a CABG: No - is a beta hue ordered? No - reason: not indicated H & P completed: Yes 10/28/14 PA/LAT: Completed CT: Completed MRI: N/A LE US: N/A Cath: Yes - reviewed: Yes Echo:Completed EKG: Completed EF %: 65 PI's: N/A Carotid: N/A Mapping: N/A Dental: Completed PFT's: N/A No results for input(s): WBC, HB, HCT, PLT, INR, CREAT in the last 72 hours. UA: Normal HCG:N/A ABO/ABO Confirmed: Yes Blood ordered: No SA Swab: Yes - results: Negative Last Dose of Anticoagulation: OTC 11/12/14 Op Note: N/A Pacemaker Check: N/A Consults: none DM: Yes, A1c: 6.6% Cardiac Surgical prep: N/A SIGNATURE: JERSON Tian CHECKED BY: [email or web address] DATE of SERVICE: 11/14/2014 TIME of SERVICE: 10:59 AM discharge planning 11/10/2014 11/12/2014 Overview: 64yo male without any concerns presently Preop testing 11/10/2014 11/12/2014 Overview: Images from the original note were not included. [facility] Surgeon: Modesto Cifuentes M.D. Informed Consent Completed: pending STS Score: unsupported CAD: Yes - CAD on Problem List: Yes Is intended procedure a CABG: No - is a beta hue ordered? No - reason: not indicated H & P completed: Yes PA/LAT: Completed CT: Completed MRI: N/A LE US: N/A Cath: Yes - reviewed: Yes Echo:Completed EKG: Completed EF %: 65 PI's: Completed Carotid: N/A Mapping: N/A Dental: Pending PFT's: Completed No results for input(s): WBC, HB, HCT, PLT, INR, CREAT in the last 72 hours. UA: Normal HCG:N/A ABO/ABO Confirmed: Yes Blood ordered: No SA Swab: Yes - results: Pending Last Dose of Anticoagulation: vit basa LD 11/03 Op Note: N/A Pacemaker Check: N/A Consults: none DM: No Cardiac Surgical prep: N/A SIGNATURE: Kate Smith RN CHECKED BY: DATE of SERVICE: 11/10/2014 TIME of SERVICE: 10:05 AM Right rotator cuff tear 12/31/2013 08/25/19 17 Pain in joint, shoulder region 12/16/2013 0 08/24/2016 Essential hypertension, benign 12/03/2013 0 11/19/2014 Overview: Home RX; Nortvasc, ACEi A/P: NTg gtt to keep MAPS 65-75. Wean off. Hydralazine prn. Start BB when off Epi. Pain in joint, lower leg 04/16/2013 017 Degenerative tear of medial meniscus 04/16/2013 11/13/2020 Allergic rhinitis 06/29/2012 04/21/2022 Anxiety 07/08/2011 11/13/2020 Overview: Home Rx; Prozac. A/p Restarted Prozac. Esophagitis, unspecified 04/23/2009 017 Acute gastritis without mention of hemorrhage 08/24/2016 Trochanteric bursitis 03/05/2009 11/12/2014 Nontoxic uninodular goiter 01/16/200902/24 Overview: 08/13/19 thyroid right mid-pole thyroid solid nodule 9 x 7 x 4 mm stable since 2016 Last Assessment & Plan: Assessment: under surveillance Nonallopathic lesion of sacr al region, not elsewhere classified 01/02/2009 11/13/2020 Osteoarthrosis, unspecified whether generalized or localized, unspecified site 11/12/2008 11/13/2020 ABSCESS GROIN 07/23/2008 08/23/2016 Obesity, unspecified 07/15/2008 09/16/2020 Pain in joint, pelvic region and thigh 9 08/24/2016 Aneurysm of thoracic aorta 12/05/200704/21 Overview: 05/26/2020 echocardiogram LV size and systolic function normal, ejection fraction 62%, grade 1 ventricular diastolic dysfunction. RV size and RV SF normal, aorta borderline dilated 3.8 cm: Status post aortic valve repair with no regurgitation, peak gradient 33 mmHg, mean gradient 19 mmHg . 07/23/2019 nuclear stress: No inducible ischemia or evidence of scarred myocardium, LV size normal LV SF normal. Ejection fraction 70% 11/17/2014 Mini-BAV repair, Ascending aortic replacement Last Assessment & Plan: Assessment: s/p ascending aorta repair in 2014. 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 Assessment: c/o dry eye Plan: ordered refresh eye drops Last Assessment & Plan: Assessment: prosthetic left eye, eye gtts as needed Generalized anxiety disorder Overview: Anxiety, Generalized Unspecified asthma(493.90) 09/02 Asthma 08/24/2016 documented as of this encounter (statuses as of 10/13/2022) [facility]11-10-2022 History of Past illness Narrative* Problem Noted Date Resolved Date Depressive disorder 04/21/2022 04/21/2022 Postoperative pneumonia 04/21/2022 04/21/20 22 Viral infection 04/21/2022 04/21/2022 Lumbosacral spondylosis with radiculopathy 03/2804/27/2022 Dependence on continuous pos itive airway pressure ventilation 03/12/2022 04/21/2022 Dependence on other enabling machines and device s 03/12/2022 04/21/2022 Other specified postprocedural states 03/12/2022 04/21/2022 Personal history of pulmonary embolism 04/21/2022 Rheumatoid arthritis, unspecified 03/12/2022 04/21/2022 Ureteric colic 12/20/2021 04/21/2022 Unspecified abdominal pain 12/08/202104/21 Dyspnea, unspecified 04/05/2021 04/21/2022 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 02/17/2017 12/05/2019 Overview: Added automatically from request for surgery [id number] Acute pain of left knee 12/26/2016 11/14/19 Chronic right shoulder pain 12/26/2016 04/0 12/2020 Gross hematuria 11/24/2016 11/13/2020 Malignant neoplasm of kidney excluding renal pel vis 10/21/2016 02/27/2017 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, without long-term current use of insulin 09/30/2016 09/30/2016 Neuropathy 09/30/2016 11/13/2020 Last Assessment & Plan: Assessment: stable on rx Asthma with COPD with exacerbation 08/24/2016 02/27/2017 Counseling and coordination of care 12/15/2014 08/24/2016 SUMMARY 11/21/2014 08/24/2016 Overview: Indication for hospital admission/procedure: Aortic aneurysm LVEF: 65% LVH RVF: Normal Important/Relevant PMH/PSH: BAV, Congenital anomaly of aorta, SIVAKUMAR, Asthma, HTN, HPL, DM, anxiety Preoperative Hospital Course Procedure/Surgeries: 11/17/2014 Mini-BAV repair, Ascending aortic replacement Airway Difficulty: No OR Course: Coagulopathy/bleeding requiring correction with 20u cryo, 8u FFP, 4u plts, 3uprbcs and 2 pump runs for repair of aortic cannulation site Pacing wires: out Postoperative Course/General Impression: S/p AVr/Asc aorta replacement. Plan to wean o2, pep, oob, increase diuresis, cont BB, pain and glucose control. Issues to communicate at signout: CT removed CPAP at night echo done CTA done PT rec acute rehab Needs much encouragement wires out 6/14 d/c to acute rehab today Discharge planning 11/21/2014 05/03/2016 Overview: Pt from [place], [place]. PT rec acute rehab; CM working on placement. Leaving for [facility] in-pt rehab today Hypertension 11/20/2014 02/27/2017 Overview: History: pre op on monopril, norv, Assessment: normotensive currently Plan: Cont BB , cont lasix Atelectasis 11/18/2014 11/19/2014 Overview: Bilateral on CXR. A/P: PEP, EZPAP OOBTC. Volume overload 11/18/2014 08/24/2016 Overview: History: post op Assessment: wt up 5 kg from pre op Plan: cont diuresis On mechanically assisted ventilation 11/17/2014 11/19/2014 Overview: Grade 1 airway. WTE when awake and stable. Extubated on DOS. CPAP at night PEP. Cardiac insufficiency following cardiac surgery 11/17/2014 11/20/2014 Overview: Low CI. CVP low. A/p Epi gtt off. Start BB. Pre-op testing 11/14/2014 08/23/2016 Overview: Images from the original note were not included. [facility] Surgeon: Modesto Cifuentes M.D. Informed Consent Completed: Yes STS Score: unsupported CAD: No Is intended procedure a CABG: No - is a beta hue ordered? No - reason: not indicated H & P completed: Yes 10/28/14 PA/LAT: Completed CT: Completed MRI: N/A LE US: N/A Cath: Yes - reviewed: Yes Echo:Completed EKG: Completed EF %: 65 PI's: N/A Carotid: N/A Mapping: N/A Dental: Completed PFT's: N/A No results for input(s): WBC, HB, HCT, PLT, INR, CREAT in the last 72 hours. UA: Normal HCG:N/A ABO/ABO Confirmed: Yes Blood ordered: No SA Swab: Yes - results: Negative Last Dose of Anticoagulation: OTC 11/12/14 Op Note: N/A Pacemaker Check: N/A Consults: none DM: Yes, A1c: 6.6% Cardiac Surgical prep: N/A SIGNATURE: JERSON Tian CHECKED BY: [email or web address] DATE of SERVICE: 11/14/2014 TIME of SERVICE: 10:59 AM discharge planning 11/10/2014 11/12/2014 Overview: 64yo male without any concerns presently Preop testing 11/10/2014 11/12/2014 Overview: Images from the original note were not included. [facility] Surgeon: Modesto Cifuentes M.D. Informed Consent Completed: pending STS Score: unsupported CAD: Yes - CAD on Problem List: Yes Is intended procedure a CABG: No - is a beta hue ordered? No - reason: not indicated H & P completed: Yes PA/LAT: Completed CT: Completed MRI: N/A LE US: N/A Cath: Yes - reviewed: Yes Echo:Completed EKG: Completed EF %: 65 PI's: Completed Carotid: N/A Mapping: N/A Dental: Pending PFT's: Completed No results for input(s): WBC, HB, HCT, PLT, INR, CREAT in the last 72 hours. UA: Normal HCG:N/A ABO/ABO Confirmed: Yes Blood ordered: No SA Swab: Yes - results: Pending Last Dose of Anticoagulation: vit basa LD 11/03 Op Note: N/A Pacemaker Check: N/A Consults: none DM: No Cardiac Surgical prep: N/A SIGNATURE: Kate Smith RN CHECKED BY: DATE of SERVICE: 11/10/2014 TIME of SERVICE: 10:05 AM Right rotator cuff tear 12/31/2013 08/25/19 17 Pain in joint, shoulder region 12/16/2013 0 08/24/2016 Essential hypertension, benign 12/03/2013 0 11/19/2014 Overview: Home RX; Nortvasc, ACEi A/P: NTg gtt to keep MAPS 65-75. Wean off. Hydralazine prn. Start BB when off Epi. Pain in joint, lower leg 04/16/2013 017 Degenerative tear of medial meniscus 04/16/2013 11/13/2020 Allergic rhinitis 06/29/2012 04/21/2022 Anxiety 07/08/2011 11/13/2020 Overview: Home Rx; Prozac. A/p Restarted Prozac. Esophagitis, unspecified 04/23/2009 017 Acute gastritis without mention of hemorrhage 08/24/2016 Trochanteric bursitis 03/05/2009 11/12/2014 Nontoxic uninodular goiter 01/16/200902/24 Overview: 08/13/19 US thyroid right mid-pole thyroid solid nodule 9 x 7 x 4 mm stable since 2016 Last Assessment & Plan: Assessment: under surveillance Nonallopathic lesion of sacr al region, not elsewhere classified 01/02/2009 11/13/2020 Osteoarthrosis, unspecified whether generalized or localized, unspecified site 11/12/2008 11/13/2020 ABSCESS GROIN 07/23/2008 08/23/2016 Obesity, unspecified 07/15/2008 09/16/2020 Pain in joint, pelvic region and thigh 08/24/2016 Aneurysm of thoracic aorta 12/05/200704/21 Overview: 05/26/2020 echocardiogram LV size and systolic function normal, ejection fraction 62%, grade 1 ventricular diastolic dysfunction. RV size and RV SF normal, aorta borderline dilated 3.8 cm: Status post aortic valve repair with no regurgitation, peak gradient 33 mmHg, mean gradient 19 mmHg . 07/23/2019 nuclear stress: No inducible ischemia or evidence of scarred myocardium, LV size normal LV SF normal. Ejection fraction 70% 11/17/2014 Mini-BAV repair, Ascending aortic replacement Last Assessment & Plan: Assessment: s/p ascending aorta repair in 2014. 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 Assessment: c/o dry eye Plan: ordered refresh eye drops Last Assessment & Plan: Assessment: prosthetic left eye, eye gtts as needed Generalized anxiety disorder Overview: Anxiety, Generalized Unspecified asthma(493.90) 09/02 Asthma 08/24/2016 documented as of this encounter (statuses as of 10/13/2022) [facility]11-10-[facility] History of Past illness Narrative* Problem Noted Date Resolved Date Depressive disorder 04/21/2022 04/21/2022 Postoperative pneumonia 04/21/2022 04/21/20 22 Viral infection 04/21/2022 04/21/2022 Lumbosacral spondylosis with radiculopathy 03/2804/27/2022 Dependence on continuous pos itive airway pressure ventilation 03/12/2022 04/21/2022 Dependence on other enabling machines and device s 03/12/2022 04/21/2022 Other specified postprocedural states 03/12/2022 04/21/2022 Personal history of pulmonary embolism 04/21/2022 Rheumatoid arthritis, unspecified 03/12/2022 04/21/2022 Ureteric colic 12/20/2021 04/21/2022 Unspecified abdominal pain 12/08/202104/21 Dyspnea, unspecified 04/05/2021 04/21/2022 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 02/17/2017 12/05/2019 Overview: Added automatically from request for surgery [id number] Acute pain of left knee 12/26/2016 11/14/19 Chronic right shoulder pain 12/26/2016 04/0 12/2020 Gross hematuria 11/24/2016 11/13/2020 Malignant neoplasm of kidney excluding renal pel vis 10/21/2016 02/27/2017 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, without long-term current use of insulin 09/30/2016 09/30/2016 Neuropathy 09/30/2016 11/13/2020 Last Assessment & Plan: Assessment: stable on rx Asthma with COPD with exacerbation 08/24/2016 02/27/2017 Counseling and coordination of care 12/15/2014 08/24/2016 SUMMARY 11/21/2014 08/24/2016 Overview: Indication for hospital admission/procedure: Aortic aneurysm LVEF: 65% LVH RVF: Normal Important/Relevant PMH/PSH: BAV, Congenital anomaly of aorta, SIVAKUMAR, Asthma, HTN, HPL, DM, anxiety Preoperative Hospital Course Procedure/Surgeries: 11/17/2014 Mini-BAV repair, Ascending aortic replacement Airway Difficulty: No OR Course: Coagulopathy/bleeding requiring correction with 20u cryo, 8u FFP, 4u plts, 3uprbcs and 2 pump runs for repair of aortic cannulation site Pacing wires: out Postoperative Course/General Impression: S/p AVr/Asc aorta replacement. Plan to wean o2, pep, oob, increase diuresis, cont BB, pain and glucose control. Issues to communicate at signout: CT removed CPAP at night echo done CTA done PT rec acute rehab Needs much encouragement wires out 11/23 d/c to acute rehab today Discharge planning 11/21/2014 05/03/2016 Overview: Pt from [place], [place]. PT rec acute rehab; CM working on placement. Leaving for [facility] in-pt rehab today Hypertension 11/20/2014 02/27/2017 Overview: History: pre op on monopril, norv, Assessment: normotensive currently Plan: Cont BB , cont lasix Atelectasis 11/18/2014 11/19/2014 Overview: Bilateral on CXR. A/P: PEP, EZPAP OOBTC. Volume overload 11/18/2014 08/24/2016 Overview: History: post op Assessment: wt up 5 kg from pre op Plan: cont diuresis On mechanically assisted ventilation 11/17/2014 11/19/2014 Overview: Grade 1 airway. WTE when awake and stable. Extubated on DOS. CPAP at night PEP. Cardiac insufficiency following cardiac surgery 11/17/2014 11/20/2014 Overview: Low CI. CVP low. A/p Epi gtt off. Start BB. Pre-op testing 11/14/2014 08/23/2016 Overview: Images from the original note were not included. [facility] Surgeon: Modesto Cifuentes M.D. Informed Consent Completed: Yes STS Score: unsupported CAD: No Is intended procedure a CABG: No - is a beta hue ordered? No - reason: not indicated H & P completed: Yes 10/28/14 PA/LAT: Completed CT: Completed MRI: N/A LE US: N/A Cath: Yes - reviewed: Yes Echo:Completed EKG: Completed EF %: 65 PI's: N/A Carotid: N/A Mapping: N/A Dental: Completed PFT's: N/A No results for input(s): WBC, HB, HCT, PLT, INR, CREAT in the last 72 hours. UA: Normal HCG:N/A ABO/ABO Confirmed: Yes Blood ordered: No SA Swab: Yes - results: Negative Last Dose of Anticoagulation: OTC 11/12/14 Op Note: N/A Pacemaker Check: N/A Consults: none DM: Yes, A1c: 6.6% Cardiac Surgical prep: N/A SIGNATURE: JERSON Tian CHECKED BY: [email or web address] DATE of SERVICE: 11/14/2014 TIME of SERVICE: 10:59 AM discharge planning 11/10/2014 11/12/2014 Overview: 64yo male without any concerns presently Preop testing 11/10/2014 11/12/2014 Overview: Images from the original note were not included. [facility] Surgeon: Modesto Cifuentes M.D. Informed Consent Completed: pending STS Score: unsupported CAD: Yes - CAD on Problem List: Yes Is intended procedure a CABG: No - is a beta hue ordered? No - reason: not indicated H & P completed: Yes PA/LAT: Completed CT: Completed MRI: N/A LE US: N/A Cath: Yes - reviewed: Yes Echo:Completed EKG: Completed EF %: 65 PI's: Completed Carotid: N/A Mapping: N/A Dental: Pending PFT's: Completed No results for input(s): WBC, HB, HCT, PLT, INR, CREAT in the last 72 hours. UA: Normal HCG:N/A ABO/ABO Confirmed: Yes Blood ordered: No SA Swab: Yes - results: Pending Last Dose of Anticoagulation: vit basa LD 11/03 Op Note: N/A Pacemaker Check: N/A Consults: none DM: No Cardiac Surgical prep: N/A SIGNATURE: Kate Smith RN CHECKED BY: DATE of SERVICE: 11/10/2014 TIME of SERVICE: 10:05 AM Right rotator cuff tear 12/31/2013 08/25/19 17 Pain in joint, shoulder region 12/16/2013 0 08/24/2016 Essential hypertension, benign 12/03/2013 0 11/19/2014 Overview: Home RX; Nortvasc, ACEi A/P: NTg gtt to keep MAPS 65-75. Wean off. Hydralazine prn. Start BB when off Epi. Pain in joint, lower leg 04/16/2013 017 Degenerative tear of medial meniscus 04/16/2013 11/13/2020 Allergic rhinitis 06/29/2012 04/21/2022 Anxiety 07/08/2011 11/13/2020 Overview: Home Rx; Prozac. A/p Restarted Prozac. Esophagitis, unspecified 04/23/2009 017 Acute gastritis without mention of hemorrhage 08/24/2016 Trochanteric bursitis 03/05/2009 11/12/2014 Nontoxic uninodular goiter 01/16/200902/24 Overview: 08/13/19 US thyroid right mid-pole thyroid solid nodule 9 x 7 x 4 mm stable since 2016 Last Assessment & Plan: Assessment: under surveillance Nonallopathic lesion of sacr al region, not elsewhere classified 01/02/2009 11/13/2020 Osteoarthrosis, unspecified whether generalized or localized, unspecified site 11/12/2008 11/13/2020 ABSCESS GROIN 07/23/2008 08/23/2016 Obesity, unspecified 07/15/2008 09/16/2020 Pain in joint, pelvic region and thigh 08/24/2016 Aneurysm of thoracic aorta 12/05/200704/21 Overview: 05/26/2020 echocardiogram LV size and systolic function normal, ejection fraction 62%, grade 1 ventricular diastolic dysfunction. RV size and RV SF normal, aorta borderline dilated 3.8 cm: Status post aortic valve repair with no regurgitation, peak gradient 33 mmHg, mean gradient 19 mmHg . 07/23/2019 nuclear stress: No inducible ischemia or evidence of scarred myocardium, LV size normal LV SF normal. Ejection fraction 70% 11/17/2014 Mini-BAV repair, Ascending aortic replacement Last Assessment & Plan: Assessment: s/p ascending aorta repair in 2014. 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 Assessment: c/o dry eye Plan: ordered refresh eye drops Last Assessment & Plan: Assessment: prosthetic left eye, eye gtts as needed Generalized anxiety disorder Overview: Anxiety, Generalized Unspecified asthma(493.90) 09/02 Asthma 08/24/2016 documented as of this encounter (statuses as of 10/14/2022) [facility]11-10-2022 History of Past illness Narrative* Problem Noted Date Resolved Date Depressive disorder 04/21/2022 04/21/2022 Postoperative pneumonia 04/21/2022 04/21/20 22 Viral infection 04/21/2022 04/21/2022 Lumbosacral spondylosis with radiculopathy 03/2804/27/2022 Dependence on continuous pos itive airway pressure ventilation 03/12/2022 04/21/2022 Dependence on other enabling machines and device s 03/12/2022 04/21/2022 Other specified postprocedural states 03/12/2022 04/21/2022 Personal history of pulmonary embolism 04/21/2022 Rheumatoid arthritis, unspecified 03/12/2022 04/21/2022 Ureteric colic 12/20/2021 04/21/2022 Unspecified abdominal pain 12/08/202104/21 Dyspnea, unspecified 04/05/2021 04/21/2022 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 02/17/2017 12/05/2019 Overview: Added automatically from request for surgery [id number] Acute pain of left knee 12/26/2016 11/14/19 21 Chronic right shoulder pain 12/26/2016 04/0 12/2020 Gross hematuria 11/24/2016 11/13/2020 Malignant neoplasm of kidney excluding renal pel vis 10/21/2016 02/27/2017 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, without long-term current use of insulin 09/30/2016 09/30/2016 Neuropathy 09/30/2016 11/13/2020 Last Assessment & Plan: Assessment: stable on rx Asthma with COPD with exacerbation 08/24/2016 02/27/2017 Counseling and coordination of care 12/15/2014 08/24/2016 SUMMARY 11/21/2014 08/24/2016 Overview: Indication for hospital admission/procedure: Aortic aneurysm LVEF: 65% LVH RVF: Normal Important/Relevant PMH/PSH: BAV, Congenital anomaly of aorta, SIVAKUMAR, Asthma, HTN, HPL, DM, anxiety Preoperative Hospital Course Procedure/Surgeries: 11/17/2014 Mini-BAV repair, Ascending aortic replacement Airway Difficulty: No OR Course: Coagulopathy/bleeding requiring correction with 20u cryo, 8u FFP, 4u plts, 3uprbcs and 2 pump runs for repair of aortic cannulation site Pacing wires: out Postoperative Course/General Impression: S/p AVr/Asc aorta replacement. Plan to wean o2, pep, oob, increase diuresis, cont BB, pain and glucose control. Issues to communicate at signout: CT removed CPAP at night echo done CTA done PT rec acute rehab Needs much encouragement wires out 11/23 d/c to acute rehab today Discharge planning 11/21/2014 05/03/2016 Overview: Pt from [place], [place]. PT rec acute rehab; CM working on placement. Leaving for [facility] in-[facility] rehab today Hypertension 11/20/2014 02/27/2017 Overview: History: pre op on monopril, norv, Assessment: normotensive currently Plan: Cont BB , cont lasix Atelectasis 11/18/2014 11/19/2014 Overview: Bilateral on CXR. A/P: PEP, EZPAP OOBTC. Volume overload 11/18/2014 08/24/2016 Overview: History: post op Assessment: wt up 5 kg from pre op Plan: cont diuresis On mechanically assisted ventilation 11/17/2014 11/19/2014 Overview: Grade 1 airway. WTE when awake and stable. Extubated on DOS. CPAP at night PEP. Cardiac insufficiency following cardiac surgery 11/17/2014 11/20/2014 Overview: Low CI. CVP low. A/p Epi gtt off. Start BB. Pre-op testing 11/14/2014 08/23/2016 Overview: Images from the original note were not included. [facility] Surgeon: Modesto Cifuentes M.D. Informed Consent Completed: Yes STS Score: unsupported CAD: No Is intended procedure a CABG: No - is a beta hue ordered? No - reason: not indicated H & P completed: Yes 10/28/14 PA/LAT: Completed CT: Completed MRI: N/A LE US: N/A Cath: Yes - reviewed: Yes Echo:Completed EKG: Completed EF %: 65 PI's: N/A Carotid: N/A Mapping: N/A Dental: Completed PFT's: N/A No results for input(s): WBC, HB, HCT, PLT, INR, CREAT in the last 72 hours. UA: Normal HCG:N/A ABO/ABO Confirmed: Yes Blood ordered: No SA Swab: Yes - results: Negative Last Dose of Anticoagulation: OTC 11/12/14 Op Note: N/A Pacemaker Check: N/A Consults: none DM: Yes, A1c: 6.6% Cardiac Surgical prep: N/A SIGNATURE: JERSON Tian CHECKED BY: [email or web address] DATE of SERVICE: 11/14/2014 TIME of SERVICE: 10:59 AM discharge planning 11/10/2014 11/12/2014 Overview: 64yo male without any concerns presently Preop testing 11/10/2014 11/12/2014 Overview: Images from the original note were not included. [facility] Surgeon: Lars G. Svensson, M.D. Informed Consent Completed: pending STS Score: unsupported CAD: Yes - CAD on Problem List: Yes Is intended procedure a CABG: No - is a beta hue ordered? No - reason: not indicated H & P completed: Yes PA/LAT: Completed CT: Completed MRI: N/A LE US: N/A Cath: Yes - reviewed: Yes Echo:Completed EKG: Completed EF %: 65 PI's: Completed Carotid: N/A Mapping: N/A Dental: Pending PFT's: Completed No results for input(s): WBC, HB, HCT, PLT, INR, CREAT in the last 72 hours. UA: Normal HCG:N/A ABO/ABO Confirmed: Yes Blood ordered: No SA Swab: Yes - results: Pending Last Dose of Anticoagulation: vit basa LD 11/03 Op Note: N/A Pacemaker Check: N/A Consults: none DM: No Cardiac Surgical prep: N/A SIGNATURE: Kate Smith RN CHECKED BY: DATE of SERVICE: 11/10/2014 TIME of SERVICE: 10:05 AM Right rotator cuff tear 12/31/2013 08/25/19 17 Pain in joint, shoulder region 12/16/2013 0 08/24/2016 Essential hypertension, benign 12/03/2013 0 11/19/2014 Overview: Home RX; Nortvasc, ACEi A/P: NTg gtt to keep MAPS 65-75. Wean off. Hydralazine prn. Start BB when off Epi. Pain in joint, lower leg 04/16/2013 017 Degenerative tear of medial meniscus 04/16/2013 11/13/2020 Allergic rhinitis 06/29/2012 04/21/2022 Anxiety 07/08/2011 11/13/2020 Overview: Home Rx; Prozac. A/p Restarted Prozac. Esophagitis, unspecified 04/23/2009 017 Acute gastritis without mention of hemorrhage 08/24/2016 Trochanteric bursitis 03/05/2009 11/12/2014 Nontoxic uninodular goiter 01/16/200902/24 Overview: 08/13/19 US thyroid right mid-pole thyroid solid nodule 9 x 7 x 4 mm stable since 2016 Last Assessment & Plan: Assessment: under surveillance Nonallopathic lesion of sacr al region, not elsewhere classified 01/02/2009 11/13/2020 Osteoarthrosis, unspecified whether generalized or localized, unspecified site 11/12/2008 11/13/2020 ABSCESS GROIN 07/23/2008 08/23/2016 Obesity, unspecified 07/15/2008 09/16/2020 Pain in joint, pelvic region and thigh 9 08/24/2016 Aneurysm of thoracic aorta 12/05/200704/21 Overview: 05/26/2020 echocardiogram LV size and systolic function normal, ejection fraction 62%, grade 1 ventricular diastolic dysfunction. RV size and RV SF normal, aorta borderline dilated 3.8 cm: Status post aortic valve repair with no regurgitation, peak gradient 33 mmHg, mean gradient 19 mmHg . 07/23/2019 nuclear stress: No inducible ischemia or evidence of scarred myocardium, LV size normal LV SF normal. Ejection fraction 70% 11/17/2014 Mini-BAV repair, Ascending aortic replacement Last Assessment & Plan: Assessment: s/p ascending aorta repair in 2014. 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 Assessment: c/o dry eye Plan: ordered refresh eye drops Last Assessment & Plan: Assessment: prosthetic left eye, eye gtts as needed Generalized anxiety disorder Overview: Anxiety, Generalized Unspecified asthma(493.90) 09/02 Asthma 08/24/2016 documented as of this encounter (statuses as of 10/17/2022) [facility]11-10-2022 History of Past illness Narrative* Problem Noted Date Resolved Date Depressive disorder 04/21/2022 04/21/2022 Postoperative pneumonia 04/21/2022 04/21/20 22 Viral infection 04/21/2022 04/21/2022 Lumbosacral spondylosis with radiculopathy 03/2804/27/2022 Dependence on continuous pos itive airway pressure ventilation 03/12/2022 04/21/2022 Dependence on other enabling machines and device s 03/12/2022 04/21/2022 Other specified postprocedural states 03/12/2022 04/21/2022 Personal history of pulmonary embolism 04/21/2022 Rheumatoid arthritis, unspecified 03/12/2022 04/21/2022 Ureteric colic 12/20/2021 04/21/2022 Unspecified abdominal pain 12/08/202104/21 Dyspnea, unspecified 04/05/2021 04/21/2022 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 02/17/2017 12/05/2019 Overview: Added automatically from request for surgery [id number] Acute pain of left knee 12/26/2016 11/14/19 Chronic right shoulder pain 12/26/2016 04/0 12/2020 Gross hematuria 11/24/2016 11/13/2020 Malignant neoplasm of kidney excluding renal pel vis 10/21/2016 02/27/2017 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, without long-term current use of insulin 09/30/2016 09/30/2016 Neuropathy 09/30/2016 11/13/2020 Last Assessment & Plan: Assessment: stable on rx Asthma with COPD with exacerbation 08/24/2016 02/27/2017 Counseling and coordination of care 12/15/2014 08/24/2016 SUMMARY 11/21/2014 08/24/2016 Overview: Indication for hospital admission/procedure: Aortic aneurysm LVEF: 65% LVH RVF: Normal Important/Relevant PMH/PSH: BAV, Congenital anomaly of aorta, SIVAKUMAR, Asthma, HTN, HPL, DM, anxiety Preoperative Hospital Course Procedure/Surgeries: 11/17/2014 Mini-BAV repair, Ascending aortic replacement Airway Difficulty: No OR Course: Coagulopathy/bleeding requiring correction with 20u cryo, 8u FFP, 4u plts, 3uprbcs and 2 pump runs for repair of aortic cannulation site Pacing wires: out Postoperative Course/General Impression: S/p AVr/Asc aorta replacement. Plan to wean o2, pep, oob, increase diuresis, cont BB, pain and glucose control. Issues to communicate at signout: CT removed CPAP at night echo done CTA done PT rec acute rehab Needs much encouragement wires out 11/23 d/c to acute rehab today Discharge planning 11/21/2014 05/03/2016 Overview: Pt from [place], [place]. PT rec acute rehab; CM working on placement. Leaving for [facility] in-pt rehab today Hypertension 11/20/2014 02/27/2017 Overview: History: pre op on monopril, norv, Assessment: normotensive currently Plan: Cont BB , cont lasix Atelectasis 11/18/2014 11/19/2014 Overview: Bilateral on CXR. A/P: PEP, EZPAP OOBTC. Volume overload 11/18/2014 08/24/2016 Overview: History: post op Assessment: wt up 5 kg from pre op Plan: cont diuresis On mechanically assisted ventilation 11/17/2014 11/19/2014 Overview: Grade 1 airway. WTE when awake and stable. Extubated on DOS. CPAP at night PEP. Cardiac insufficiency following cardiac surgery 11/17/2014 11/20/2014 Overview: Low CI. CVP low. A/p Epi gtt off. Start BB. Pre-op testing 11/14/2014 08/23/2016 Overview: Images from the original note were not included. [facility] PRE-OP CHECKLIST Surgeon: Modesto Cifuentes M.D. Informed Consent Completed: Yes STS Score: unsupported CAD: No Is intended procedure a CABG: No - is a beta hue ordered? No - reason: not indicated H & P completed: Yes 10/28/14 PA/LAT: Completed CT: Completed MRI: N/A LE US: N/A Cath: Yes - reviewed: Yes Echo:Completed EKG: Completed EF %: 65 PI's: N/A Carotid: N/A Mapping: N/A Dental: Completed PFT's: N/A No results for input(s): WBC, HB, HCT, PLT, INR, CREAT in the last 72 hours. UA: Normal HCG:N/A ABO/ABO Confirmed: Yes Blood ordered: No SA Swab: Yes - results: Negative Last Dose of Anticoagulation: OTC 11/12/14 Op Note: N/A Pacemaker Check: N/A Consults: none DM: Yes, A1c: 6.6% Cardiac Surgical prep: N/A SIGNATURE: JERSON Tian CHECKED BY: [email or web address] DATE of SERVICE: 11/14/2014 TIME of SERVICE: 10:59 AM discharge planning 11/10/2014 11/12/2014 Overview: 64yo male without any concerns presently Preop testing 11/10/2014 11/12/2014 Overview: Images from the original note were not included. [facility] PRE-OP CHECKLIST Surgeon: Modesto Cifuentes M.D. Informed Consent Completed: pending STS Score: unsupported CAD: Yes - CAD on Problem List: Yes Is intended procedure a CABG: No - is a beta hue ordered? No - reason: not indicated H & P completed: Yes PA/LAT: Completed CT: Completed MRI: N/A LE US: N/A Cath: Yes - reviewed: Yes Echo:Completed EKG: Completed EF %: 65 PI's: Completed Carotid: N/A Mapping: N/A Dental: Pending PFT's: Completed No results for input(s): WBC, HB, HCT, PLT, INR, CREAT in the last 72 hours. UA: Normal HCG:N/A ABO/ABO Confirmed: Yes Blood ordered: No SA Swab: Yes - results: Pending Last Dose of Anticoagulation: vit basa LD 11/03 Op Note: N/A Pacemaker Check: N/A Consults: none DM: No Cardiac Surgical prep: N/A SIGNATURE: Kate Smith RN CHECKED BY: DATE of SERVICE: 11/10/2014 TIME of SERVICE: 10:05 AM Right rotator cuff tear 12/31/2013 08/25/19 17 Pain in joint, shoulder region 12/16/2013 0 08/24/2016 Essential hypertension, benign 12/03/2013 0 11/19/2014 Overview: Home RX; Nortvasc, ACEi A/P: NTg gtt to keep MAPS 65-75. Wean off. Hydralazine prn. Start BB when off Epi. Pain in joint, lower leg 04/16/2013 017 Degenerative tear of medial meniscus 04/16/2013 11/13/2020 Allergic rhinitis 06/29/2012 04/21/2022 Anxiety 07/08/2011 11/13/2020 Overview: Home Rx; Prozac. A/p Restarted Prozac. Esophagitis, unspecified 04/23/2009 017 Acute gastritis without mention of hemorrhage 08/24/2016 Trochanteric bursitis 03/05/2009 11/12/2014 Nontoxic uninodular goiter 01/16/200902/24 Overview: 08/13/19 thyroid right mid-pole thyroid solid nodule 9 x 7 x 4 mm stable since 2016 Last Assessment & Plan: Assessment: under surveillance Nonallopathic lesion of sacr al region, not elsewhere classified 01/02/2009 11/13/2020 Osteoarthrosis, unspecified whether generalized or localized, unspecified site 11/12/2008 11/13/2020 ABSCESS GROIN 07/23/2008 08/23/2016 Obesity, unspecified 07/15/2008 09/16/2020 Pain in joint, pelvic region and thigh 9 08/24/2016 Aneurysm of thoracic aorta 12/05/200704/21 Overview: 05/26/2020 echocardiogram LV size and systolic function normal, ejection fraction 62%, grade 1 ventricular diastolic dysfunction. RV size and RV SF normal, aorta borderline dilated 3.8 cm: Status post aortic valve repair with no regurgitation, peak gradient 33 mmHg, mean gradient 19 mmHg . 07/23/2019 nuclear stress: No inducible ischemia or evidence of scarred myocardium, LV size normal LV SF normal. Ejection fraction 70% 11/17/2014 Mini-BAV repair, Ascending aortic replacement Last Assessment & Plan: Assessment: s/p ascending aorta repair in 2014. 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 Assessment: c/o dry eye Plan: ordered refresh eye drops Last Assessment & Plan: Assessment: prosthetic left eye, eye gtts as needed Generalized anxiety disorder Overview: Anxiety, Generalized Unspecified asthma(493.90) 09/02 Asthma 08/24/2016 documented as of this encounter (statuses as of 10/18/2022) [facility]11-10-[facility] History of Present illness Narrative* Roberto Carlos Mullen MD - 04/21/2022 10:35 AM EST Patient presents with: 6 Month Exam HPI: Patient presents today for office visit for follow up. Recent COVID infection back in February. Had some brain fog. Claims to be feeling better. Treated with Paxlovid. Complaints of back pain. Going to therapy. Receiving injections. Wore off after a couple weeks. Exercising helps. X-ray done. Getting right knee replaced this winter. DM: Sugars have been great. BS today 118. Watching diet. Carb intake around 65- 70 and calories around 0661-6832 daily. Wanting to lose more weight. Benefiting from CPAP. Sleeping good. HTN: BP stable. No chest pain No shortness of breath No headaches No dizziness Following with cardiology. Saw gino for his calcium. Seeing for his carotids. Doing well with cpap. No snoring. MEDICATIONS: Current Outpatient Medications Medication Sig fluticasone (FLONASE) 50 mcg/actuation nasal spray Use 2 Sprays in each nostril once daily. atorvastatin (LIPITOR) 40 mg tablet Take 1 tablet by mouth daily at bedtime. For cholesterol. metFORMIN (GLUCOPHAGE) 1,000 mg tablet Take 1 tablet by mouth twice daily with meals. blood sugar diagnostic ([employer] VERIO TEST STRIPS) test strip Test blood sugar(s) 2 times daily. Dx: E11.9 buPROPion XL (WELLBUTRIN XL) 150 mg 24 hr tablet Take 1 tablet by mouth once daily. clotrimazole-betamethasone (LOTRISONE) cream Apply to affected area twice daily. losartan (COZAAR) 100 mg tablet Take 1 tablet by mouth once daily. amLODIPine (NORVASC) 10 mg tablet Take 1 tablet by mouth once daily. magnesium oxide (MAG-OX) 400 mg (241.3 mg magnesium) tablet Take 1 tablet by mouth once daily. carvedilol (COREG) 6.25 mg tablet Take 1 tablet by mouth twice daily. dulaglutide (TRULICITY) 1.5 mg/0.5 mL pen injector Inject 1.5 mg subcutaneously one time a week. Inject once per week. Discard Pen After Cholecalciferol, Vitamin D3, 25 mcg (1,000 unit) cap Take 1 capsule by mouth once daily. aspirin, enteric coated (ASPIRIN, ENTERIC COATED) 81 mg EC tablet Take 2 tablets by mouth once daily. albuterol (PROVENTIL) 2.5 mg /3 mL (0.083 %) nebulizer solution Use 2.5 mg via nebulizer. albuterol HFA (VENTOLIN HFA) 90 mcg/actuation inhaler Inhale 2 Puffs as instructed every 4 hours asneeded for wheezing/shortness of breath. ondansetron (ZOFRAN) 4 mg tablet Take 1 tablet by mouth every 8 hours as needed. pramipexole (MIRAPEX) 0.25 mg tablet Take 1 tablet by mouth once daily. fluticasone/vilanterol (BREO ELLIPTA INHALATION) Inhale 1 Puff as instructed once daily. Cholecalciferol, Vitamin D3, 1,000 unit cap Take 1 capsule by mouth once daily. lancets ([employer] 33 gauge misc Test blood sugar(s) 2 daily. Blood-Glucose Meter ([employer] VERIO SYSTEM) misc Dispense One Kit - Verio Meter Kit. Test blood sugar twice daily. Dx: E11.9. Insulin-no. therapeutic multivitamin (THERA VITAMIN) tablet Take 1 tablet by mouth daily with breakfast. CPAP As directed Current Facility-Administered Medications Medication Dose Route Frequency perflutren lipid microspheres 1.3 mL in NaCl (PF) 0.9% 10 mL injection (DEFINITY) INTRAVENOUS DIRECTED PRN sodium chloride 0.9 % (flush) 10 mL (BD POSIFLUSH) 10 mL INTRAVENOUS DIRECTED PRN ALLERGIES: ALLERGIES Allergen Reactions Seasonal Allergies Other: See Comments SOB due to tree pollen, dog dander, weeds, cow dander,molds, pine pollen. 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 Diaphragmatic hernia without mention of obstruction or gangrene Esophagitis, unspecified Fatty liver Generalized anxiety disorder Anxiety, Generalized Heartburn 02/27/2017 History of aortic valve replacement 06/12/2014 Other and unspecified hyperlipidemia PMH - PAST MEDICAL HISTORY OF nodules in left lung Profound impairment, one eye, impairment level not further specified left Restless legs syndrome (RLS) Type II or unspecified type diabetes mellitus without mention of complication, not stated as uncontrolled 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ty 02/17/2017 Added automatically from request for surgery [id number] Umbilical hernia 2019 Unspecified asthma(493.90) Unspecified essential hypertension Unspecified sleep apnea PAST SURGICAL HISTORY Procedure Laterality Date ARTHRP KNE CONDYLE&PLATU MEDIAL&LAT COMPARTMENTS Left 12/25/2019 ASCENDING AORTA GRAFT W/BYPASS W/CORON REC 2014 COLONOSCOPY FLX DX W/COLLJ SPEC WHEN PFRMD 02/02/2005 Colonoscopy-repeat in COLONOSCOPY FLX DX W/COLLJ SPEC WHEN PFRMD 04/04/2016 DIAGNOSTIC ARTHROSCOPY SHOULDER +- SYNOVIAL BX Right 01/17/2014 EGD TRANSORAL BIOPSY SINGLE/MULTIPLE 04/23/2009 EYE SURGERY HX Left Eye removed from trauma I&D ABSC SMPL OR SGL Right 07/23/2008 Groin KNEE ARTHROSCOPY Right 05/23/2014 NEUROPLASTY &/TRANSPOSITION ULNAR NERVE ELBOW Right 03/01/2017 RECONSTRUCTION ROTATOR CUFF AVULSION CHRONIC Right 01/17/2014 RPR UMBILICAL HRNA 5 YRS/> REDUCIBLE 04/08/2020 VALVULOPLASTY - AORTIC VALVE 2014 WRIST SURGERY HX Left Mass removal FAMILY HISTORY Problem Relation Age of Onset Asthma Mother Stroke Father blood clot other (Pulmonary embolism) Father Arthritis Sister Lupus DVT Brother Diabetes Brother Hypertension Brother Stroke Maternal Grandmother Heart Maternal Grandmother Heart Maternal Grandfather Heart Paternal Grandmother Stroke Paternal Grandmother Arthritis Daughter Sgrogren's Breast Cancer Maternal Aunt Cancer Maternal Aunt glioblastoma Social History Tobacco Use Smoking status: Never Smokeless tobacco: Never Vaping Use Vaping Use: Never used Substance Use Topics Alcohol use: No Drug use: No Reviewed current medications, allergies, past medical history, surgical history, family history andsocial history today. REVIEW OF SYSTEMS Moods are doing well. All other reviewed and negative other than HPI. HEALTH MAINTENANCE: Reviewed health maintenance issues today and recommended the following in detail. COVID-19 VACCINE(4 - Booster for Moderna series) due on 06/21/2021 DILATED RETINAL EXAM -has it set up. VITALS: BP 128/78 Pulse 76 Ht 185.4 cm (6' 1 ) Wt 107.5 kg (237 lb) SpO2 97% BMI 31.27 kg/m Last 4 Encounter Wt Readings: Date: Wt: 04/21/2022 107.5 kg (237 lb) 02/22/2022 109.8 kg (242 lb) 01/05/2022 108.9 kg (240 lb) 01/04/2022 108 kg (238 lb) PHYSICAL EXAMINATION: General appearance: Well appearing, alert, in no acute distress, well-hydrated, well nourished. Skin: Skin color, texture, turgor normal, no suspicious rashes or lesions Head: Normocephalic, no masses, lesions, tenderness or abnormalities Eyes: Anicteric sclera. Pupils are equally round and reactive to light. Extraocular movements are intact. Lungs: Lungs clear to auscultation. No wheezing, rhonchi, rales Heart: murmur unchanged, no gallop, or rubs. No ectopy Abdomen: Normal abdominal exam, Abdomen soft, non-tender. Bowel sounds normal. No masses, organomegaly Extremities: No deformities, edema, skin discoloration, clubbing or cyanosis. Good capillary refill. Musculoskeletal: No joint swelling, deformity, or tenderness ASSESSMENT/PLAN: 1. Coronary artery disease involving [place] heart without angina pectoris, unspecified vessel or lesion type - ICD9: 414.01, ICD10: I25.10 (primary diagnosis) - continue current meds. 2. Essential hypertension - ICD9: 401.9, ICD10: I10 - good control - Continue current medication(s) - Goal of BP <130/80 3. History of aortic valve replacement - ICD9: V43.3, ICD10: Z95.2 - stable. Per cardiology 4. Mixed hyperlipidemia - ICD9: 272.2, ICD10: E78.2 - to be determined upon return of lab results - Continue current medication. - COMP METABOLIC PANEL - LIPID PANEL BASIC 5. SIVAKUMAR on CPAP - ICD9: 327.23, V46.8, ICD10: G47.33, Z99.89 - stable. 6. Benign paroxysmal positional vertigo, unspecified laterality - ICD9: 386.11, ICD10: H81.10 - no issue. 7. Fatty liver - ICD9: 571.8, ICD10: K76.0 - stable. 8. Controlled type 2 diabetes mellitus without complication, without long-term current use of insulin (HCC) - ICD9: 250.00, ICD10: E11.9 Controlled. - Continue current medications - HGB A1C 9. Recurrent major depression in partial remission (HCC) - ICD9: 296.35, ICD10: F33.41 - doing well. 10. Bilateral carotid artery stenosis - ICD9: 433.10, 433.30, ICD10: I65.23 - per vascular. Roberto Carlos Mullen MD documented in this encounter[facility] History of Present illness Narrative* Dinah Fenton, PT - 04/18/2022 2:20 PM EST Episode Visit Count: 6 Therapist That Will Accept/Oversee The Plan Of Care: Dinah Fenton PT Start of Care Date: 03/28/22 Onset Date: 03/28/21 (Worse over last few years) Plan of Care Certification Date: 03/28/22 Next Certification Due Date: 05/09/22 Patient Identified by Name and Date of : Yes REHABILITATION AND SPORTS THERAPY PHYSICAL THERAPY TREATMENT NOTE ASSESSMENT: Alem Sheehan tolerated the session with no issues. He demonstrated improvements in performance of exs. . The patient will continue to benefit from ongoing skilled physical therapy to progress toward set goals. PLAN FOR NEXT VISIT: Continue with exs. SUBJECTIVE: Patient Reason for Visit: Pt notes that his back still kind of aches. He has not noticed an increase in his tolerance to daily activities Pain: Pain Pain Level: 2 Pain Location: Low Back/Lumbar Spine - Right Description: Aching;Tightness Frequency: Intermittent Post Treatment Pain Post Treatment Pain Level: No Change Post Treatment Pain Location: Low Back/Lumbar Spine - Right OBJECTIVE MEASURES WITH LEVEL OF FUNCTION: Increased ease of transfer sit to stand TREATMENT: Therapeutic Exercise: 1: sit to stand from chair. 2x5 2: seated trunk flexion 2x15 3: seated purple rep band 2x15 4: hoist shoulder extension with bar 2 plates seated 2x10 5: hoist scapular retraction with bar seated 2 weights 2x15 6: green rep band dynamic stabilization with perturbation front and side 2x15 7: seated TA wtih arm and leg lifts 1 1/2# 2x10 8: seated TA with arm lifts 1x15 9: seated TA with marches 1 1/2# 2x10 10: TA with pillow seated hip adduction 2x15 Skilled Intervention: Patient was educated in proper exercise technique and purpose for exercises. Reviewed and educated patient on additions/changes for home exercise program . Skilled judgment was provided in selection of appropriate interventions. Correct performance of therapeutic exercises was facilitated with verbal and visual cuing. Patient education as noted. Home Exercise Program Assigned: 1: sit to stand x5 Billing Therapeutic Exercise Treatment Minutes: 31 Total Treatment Time Minutes (timed/untimed): 31 Dinah Fenton PT documented in this encounterOhio[facility]11-07-2022 Miscellaneous Notes* Telephone Encounter - Gena Rojas - 04/18/2022 12:39 PM EST Patient sent My Chart message requesting the following refill. Requested Prescriptions Pending Prescriptions Disp Refills fluticasone (FLONASE) 50 mcg/actuation nasal spray 3 Each 3 Sig: Use 2 Sprays in each nostril once daily. Patient last appointment: 03/14/2022 Patient Phone numbers: [phone] (home) Request is for script(s) to be escript to pharmacy. Gena Rojas documented in this encounterOhio[facility]11-03-2022 Miscellaneous Notes* Telephone Encounter - Nicole Tian RN - 04/14/2022 4:40 PM EDT [employer] called, requesting Dr. Beatty's last office visit note. Faxed to [phone]. Faxconfirmation sheet received. Nicole Tian RN documented [facility] this [facility]11-01[facility] History of Present illness Narrative* Dinah Fenton PT - 04/12/2022 10:59 AM EDT Episode Visit Count: 4 Therapist That Will Accept/Oversee The Plan Of Care: Dinah Fenton PT Start of Care Date: 03/28/22 Onset Date: 03/28/21 (Worse over last few years) Plan of Care Certification Date: 03/28/22 Next Certification Due Date: 05/09/22 Patient Identified by Name and Date of : Yes REHABILITATION AND SPORTS THERAPY PHYSICAL THERAPY TREATMENT NOTE ASSESSMENT: Alem Sheehan tolerated the session with no issues. He demonstrated improvements in endurance for exs. The patient will continue to benefit from ongoing skilled physical therapy to progress toward set goals. PLAN FOR NEXT VISIT: SUBJECTIVE: Patient Reason for Visit: Pt notes that last night back was a little sore. Pain: Pain Pain Level: 4 Pain Location: Low Back/Lumbar Spine - Right Description: Aching;Tightness Frequency: Continuous Post Treatment Pain Post Treatment Pain Location: Low Back/Lumbar Spine - Left OBJECTIVE MEASURES WITH LEVEL OF FUNCTION: increased ease of movements for flexion ROM TREATMENT: Therapeutic Exercise: 1: sit to stand from chair. 1x5 with some right knee soreness. 2: seated trunk flexion 2x10 3: seated purple rep band 2x15 4: hoist shoulder extension with bar 2 plates seated 2x10 5: hoist scapular retraction with bar seated 2 weights 2x15 6: orange rep band dynamic stabilization with perturbation front and side 2x15 7: seated TA wtih arm and leg lifts 1 1/2# 2x10 8: seated TA with arm lifts 1x15 9: seated TA with marches 2x10 10: TA with pillow seated hip adduction 2x10 Skilled Intervention: Patient was educated in proper exercise technique and purpose for exercises. Reviewed and educated patient on additions/changes for home exercise program . Skilled judgment was provided in selection of appropriate interventions. Patient education as noted. Home Exercise Program Assigned: 1: increase to 2 sets of 15 Billing Therapeutic Exercise Treatment Minutes: 30 Total Treatment Time Minutes (timed/untimed): 30 Dinah Fenton PT documented in this encounterOhio[facility]10-27-2022 History of Present illness Narrative* Dinah Fenton PT - 04/07/2022 11:42 AM EDT Episode Visit Count: 3 Therapist That Will Accept/Oversee The Plan Of Care: Dinah Fenton PT Start of Care Date: 03/28/22 Onset Date: 03/28/21 (Worse over last few years) Plan of Care Certification Date: 03/28/22 Next Certification Due Date: 05/09/22 Patient Identified by Name and Date of : Yes REHABILITATION AND SPORTS THERAPY PHYSICAL THERAPY TREATMENT NOTE ASSESSMENT: Alem Sheehan tolerated the session with no issues. He demonstrated improvements in form with exs and no increased pain reported . The patient will continue to benefit from ongoing skilled physical therapy to progress toward set goals. PLAN FOR NEXT VISIT: consider manual belt traction SUBJECTIVE: Patient Reason for Visit: Pt notes that his back was hurting last night and bothered his sleep. Pain: Pain Pain Level: 4 Pain Location: Low Back/Lumbar Spine - Right Description: Aching;Tightness Frequency: Continuous Post Treatment Pain Post Treatment Pain Level: No Change Post Treatment Pain Location: Low Back/Lumbar Spine - Left OBJECTIVE MEASURES WITH LEVEL OF FUNCTION: good engagement of TA. TREATMENT: Therapeutic Exercise: 1: seated TA 1x10 2: seated trunk flexion 1x10 3: seated purple rep band 2x15 4: orange rep band and wand shoulder extension seated 2x15 5: orange rep band scapular retraction seated wtih wand 2x15 6: orange rep band dynamic stabilization with perturbation front and side 2x15 7: seated TA wtih arm and leg lifts 2x10 8: seated TA with arm lifts 1x10 9: seated TA with marches 2x10 10: scifit stepper seat 16 for 5min with some right shoulder soreness. Discussed exs and current status of pain Skilled Intervention: Patient was educated in proper exercise technique and purpose for exercises. Reviewed and educated patient on additions/changes for home exercise program . Skilled judgment was provided in selection of appropriate interventions. Correct performance of therapeutic exercises was facilitated with verbal and visual cuing. Patient education as noted. Self-Chcf Management: 1: discussed appropriate activities levels for walking, standing etc. based on sx. 2: reviewed proper body mechanics for lifting carrying groceries. Skilled Intervention: Skilled judgment in the selection of proper modification for activity of daily living/home management based on clinical presentation, deficits, and needs. Activity progression based on professional judgement. Instructed on proper lifting and carrying techniques with importance of core activation. Home Exercise Program Assigned: 1: increase reps to 15 2: add seated arm and leg lifts Billing Therapeutic Exercise Treatment Minutes: 28 Self-Care/Home Management Treatment Minutes: 10 Total Treatment Time Minutes (timed/untimed): 38 Dinah Fenton PT documented in this encounterOhio[facility]10-24-2022 Miscellaneous Notes* Telephone Encounter - Tera Nava LPN - 04/04/2022 9:28 AM EDT Patient phones requesting refills as follows: Requested Prescriptions Pending Prescriptions Disp Refills atorvastatin (LIPITOR) 40 mg tablet 90 tablet 1 Sig: Take 1 tablet by mouth daily at bedtime. For cholesterol. SILVINO 03/14/22 04/21/22 Please review and advise. 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 Please contact patient when disc is ready. Thank you. documented in this encounterOhio[facility]10-17-2022 Miscellaneous Notes* Telephone Encounter - Tera Nava LPN - 03/28/2022 1:32 PM EDT Patient phones requesting refills as follows: Requested Prescriptions Pending Prescriptions Disp Refills metFORMIN (GLUCOPHAGE) 1,000 mg tablet 180 tablet 1 Sig: Take 1 tablet by mouth twice daily with meals. SILVINO 03/14/22 04/21/22 Please review and advise. Tera Nava LPN documented in this encounterOhio[facility]10-17-2022 History of Present illness Narrative* Dinah Fenton, PT - 03/28/2022 10:38 AM EDT Episode Visit Count: 1 Therapist That Will Accept/Oversee The Plan Of Care: Dinah Fenton PT Start of Care Date: 03/28/22 Onset Date: 03/28/21 (Worse over last few years) Plan of Care Certification Date: 03/28/22 Next Certification Due Date: 05/09/22 Patient Identified by Name and Date of : Yes REHABILITATION AND SPORTS THERAPY PHYSICAL THERAPY EVALUATION PLAN OF CARE: Assessment: Alem Sheehan presents with diagnosis of lumbar spondylosis with radiculopathy that interferes with standing;rising from a chair;walking in the community;bending;heavy exertion;lifting;physical activities (standing more several minutes) . Pt with grade 2 spondylolisthesis on MRI last year and foraminal narrowing . He presents with impairments in ADL's, gait, independence in exercise, overall function, strength , and symptom management. PROMIS (Patient-Reported Outcomes MeasurementInformation System) scores were reviewed and physical function domain identified as a rehabilitation concern. Prognosis for therapy is Fair due to: clinical presentation;chronic nature of impairments. He will benefit from skilled therapy services to meet the goals established for this plan of careas noted below. Classification Low Back Pain Subgroup Classification: Specific exercise subgroup: recommended visits 8. Specific Exercies Subgroup Classification based on: directional preference Goals for Episode of Care: created on 03/28/22 through 05/09/22 Independent in home exercises. Patient will decrease pain to 3/10 with functional activities to allow patient to improve standing tolerance for ADLs. Stand / Walk greater 5-10 min. without pain/symptoms. Patient will be able to tolerate functional activities without increased symptoms. Knowledgeable regarding prophylaxis. Patient will increase strength of core to 4+/5 to allow for improve ability to complete ADLs. Patient Goals: Not have pain, Walk greater 1000 feet without increased pain Planned Interventions, Frequency, and Duration: Current Frequency: 2x/week Duration: 4 weeks Total Number of Visits Planned: 8 Planned Treatment Interventions: Therapeutic exercise (84915);Neuromuscular re- education (18470);Manual therapy (38390);Self-mcc management (76070);Patient/Family/Caregiver Education;Body Mechanics Training PLAN FOR NEXT VISIT: Will increase reps of exs. add seated TA with marches and arm lifts Patient demonstrates good understanding of plan of care and treatment. The above goals and plan of care were discussed and agreed upon by patient/family. SUBJECTIVE: Alem Sheehan is a 72 year old male seen today for Pain in low back, upper buttock region left greater than right . Pain with standing for longer periods of time . Hip freezes up andhe has to sit down. Patient Goals: Not have pain, Walk greater 1000 feet without increased pain Functional Limitations: standing;rising from a chair;walking in the community;bending;heavy exertion;lifting;physical activities (standing more several minutes) Prior Level of Function: Independent without limitations Relevant History Preferred Language: [place] Employment: Retired Home Environment Patient Lives With: Spouse Intake Information: Prescription present Previous Treatment: Injections Red Flags Vertebral Fracture Clinical Reasoning: No identified risk factors Cauda Equina Syndrome Clinical Reasoning: No identified risk factors. Spine History Symptoms Location at Onset: Back Symptoms Since Onset: Worsening Pain is Worse Always: Standing;Walking;Prolonged positions;As the day progresses Pain is Better Sometimes: Sitting;Lying Previous Episodes: Yes Sleeping Position: Supine;Side lying right;Side lying left Sleep Affected by Pain: Pain awakens Pain: Pain Pain Level: 3 (worst 7-8/10 , decreased after couple hours to go to baseline) Pain Location: Low Back/Lumbar Spine - Right Description: Aching;Tightness Frequency: Continuous Post Treatment Pain Post Treatment Pain Level: Worse Post Treatment Pain Location: Low Back/Lumbar Spine - Left Post Treatment Pain Description: Sore PROMIS Scales Higher is Better 11/11/2021 02/15/2022 03/26/2022 Phys Func - Score 41 (mild dysfunction) - 40 (mild dysfunction) Phys Func - Percentile 18 % - 16 % Social Roles - Score - - - Social Role - Percentile - - - GH Physical - Score 37.4 (Fair) 37.4 (Fair) 37.4 (Fair) GH Physical - Percentile 10 % 10 % 10 % GH Mental - Score 43.5 (Good) 41.1 (Good) 45.8 (Good) GH Mental - Percentile 26 % 19 % 34 % Self-Eff Symptom - Score - - 46 (Average) Self-Eff Symptom - Percentile - - 34 % T-scores: mean of general population = 50. 5 points is clinically meaningfully difference Percentiles provide an indication of how the patient's score ranks in relation to the general population. Higher percentile rankings indicate better function/quality of life. 50th percentile is the average of the general population and indicates half of respondents had a worse score. Lower is Better 01/30/2021 02/27/2021 04/24/2021 Fatigue - Score 64 (moderate) 57 (mild) 64 (moderate) Fatigue - Percentile 8 % 24 % 8 % T-scores: mean of general population = 50. 5 points is clinically meaningfully difference Percentiles provide an indication of how the patient's score ranks in relation to the general population. Higher percentile rankings indicate better function/quality of life. 50th percentile is the average of the general population and indicates half of respondents had a worse score. OBJECTIVE MEASURES WITH LEVEL OF FUNCTION: Posture / Alignment Posture: Decreased lumbar lordosis Sitting Posture: Fair Spine Observations L Lumbar Spine Palpation Tenderness: PSIS (posterior superior iliac spine);Paraspinals Lumbar Spine AROM Lumbar Flexion: Normal LE Strength Trunk Strength: poor R Hip Flexion (L2): 4+/5 R Knee Extension (L3): 5/5 R Knee Flexion: 5/5 L Hip Flexion (L2): 4/5 L Knee Extension (L3): 5/5 L Knee Flexion: 5/5 Functional Strength Functional Strength: limited tolerance to standing and walking, lacking core strength and endurance Gait Weight Bearing Status: FWB Gait: Independent Gait Device: None Gait Observation: antalgic with decreased mamadou noted favors right LE greater left d/t knee Education: Education Learning Preferences: Demonstration;Explanation;Performance;Printed Materials Barriers: None Learning/educational needs: Home exercise program;Plan of Care Education Provided: Yes, see treatment interventions for education provided Education Provided To: Patient;Family Education Mode/Type: Demonstration;Explanation/Discussion;Literature/Printed Materials;Performance Response to Education/Teach Back: States/Identifies;Return Demonstration TREATMENT: PT Treatment Interventions: Therapeutic Exercise;Self-Chcf Management Evaluation Therapeutic Exercise: 1: seated TA 1x10 2: seated trunk flexion 1x5 3: seated purple rep band 1x10 Skilled Intervention: Patient was educated in proper exercise technique and purpose for exercises. Skilled judgment was provided in selection of appropriate interventions. Provided written instruction for home exercise program to facilitate proper performance and compliance. Correct performance of therapeutic exercises was facilitated with verbal and visual cuing. Educated patient on rationale for performing exercises in regards to ROM and function . Patient education as noted. Self-Chcf Management: 1: discussed sleeping positions,, sidelying with pillows 2: discussed water ex or recumbent bike as alternative exs 3: discussed carrying / lifitng with item close to center of gracity Skilled Intervention: Skilled judgment in the selection of proper modification for activity of daily living/home management based on clinical presentation, deficits, and needs. Educated the patient regarding recommendations and provided written instruction to facilitate compliance. Reviewed patient specific diagnosis in relation to activities of daily living/home management. Home Exercise Program Assigned: 1: as outlined above Billing * Evaluation Low Complexity: 1 Unit Therapeutic Exercise Treatment Minutes: 20 Self-Care/Home Management Treatment Minutes: 10 Total Treatment Time Minutes (timed/untimed): 45 Dinah Fenton PT documented in this encounterOhio[facility]10-03-2022 Instructions* Patient Instructions* Beckie Levine APRN.PRINTED CIRCUIT BOARD PCB DRAFTSMAN - 03/14/2022 4:05 PM EDT FACT SHEET FOR PATIENTS, PARENTS, AND CAREGIVERS EMERGENCY USE AUTHORIZATION (EUA) OF PAXLOVID FOR CORONAVIRUS DISEASE 2019 (COVID-19) You are being given this Fact Sheet because your healthcare provider believes it is necessary to provide you with PAXLOVID for the treatment of wskv-ys-xmlgornd coronavirus disease (COVID-19) caused by the SARS-CoV-2 virus. This Fact Sheet contains information to help you understand the risks and benefits of taking the PAXLOVID you have received or may receive. The U.S. Food and Drug Administration (FDA) has issued an Emergency Use Authorization (EUA) to makePAXLOVID available during the COVID-19 pandemic (for more details about an EUA please see What is an Emergency Use Authorization? at the end of this document). PAXLOVID is not an FDA-approved medicine in the [place]. Read this Fact Sheet for information about PAXLOVID. Talk to your healthcareprovider about your options or if you have any questions. It is your choice to take PAXLOVID. What is COVID-19? COVID-19 is caused by a virus called a coronavirus. You can get COVID-19 through close contact withanother person who has the virus. COVID-19 illnesses have ranged from very kdqq-pe-eeqpgb, including illness resulting in . While information so far suggests that most COVID-19 illness is mild, serious illness can happen and maycause some of your other medical conditions to become worse. Older people and people of all ages with severe, long lasting (chronic) medical conditions like heart disease, lung disease, and diabetes,for example seem to be at higher risk of being hospitalized for COVID-19. What is PAXLOVID? PAXLOVID is an investigational medicine used to treat jfvs-dc-guwlwmxw COVID-19 in adults and children [12 years of age and older weighing at least 88 pounds (40 kg)] with positive results of direct SARS-CoV-2 viral testing, and who are at high risk for progression to severe COVID-19, including hospitalization or . PAXLOVID is investigational because it is still being studied. There is limited information about the safety and effectiveness of using PAXLOVID to treat people with kwnw-xh-hkyivbya COVID-19. The FDA has authorized the emergency use of PAXLOVID for the treatment of lcsc-nu-afwbctbm COVID-19in adults and children [12 years of age and older weighing at least 88 pounds (40 kg)] with a positive test for the virus that causes COVID-19, and who are at high risk for progression to severe COVID-19, including hospitalization or , under an EUA. 1 Revised: 27 August 2021 What should I tell my healthcare provider before I take PAXLOVID? Tell your healthcare provider if you: Have any allergies Have liver or kidney disease Are or plan to become Are a child Have any serious illnesses Tell your healthcare provider about all the medicines you take, including prescription and vmif-pmu-kqxvxxk medicines, vitamins, and herbal supplements. Some medicines may interact with PAXLOVID and may cause serious side effects. Keep a list of your medicines to show your healthcare provider and pharmacist when you get a new medicine. You can ask your healthcare provider or pharmacist for a list of medicines that interact with PAXLOVID. Do not start taking a new medicine without telling your healthcare provider. Your healthcare provider can tell you if it is safe to take PAXLOVID with other medicines. Tell your healthcare provider if you are taking combined hormonal contraceptive. PAXLOVID may affect how your control pills work. Females who are able to become should use another effective alternative form of contraception or an additional barrier method of contraception. Talk to your healthcare provider if you have any questions about contraceptive methods thatmight be right for you. How do I take PAXLOVID? PAXLOVID consists of 2 medicines: nirmatrelvir and ritonavir. Take 2 pink tablets of nirmatrelvir with 1 white tablet of ritonavir by mouth 2 times each day (in the morning and in the evening) for 5 days. For each dose, take all 3 tablets at the same time. If you have kidney disease, talk to your healthcare provider. You may need a different dose. Swallow the tablets whole. Do not chew, break, or crush the tablets. Take PAXLOVID with or without food. Do not stop taking PAXLOVID without talking to your healthcare provider, even if you feel better. If you miss a dose of PAXLOVID within 8 hours of the time it is usually taken, take it as soon as you remember. If you miss a dose by more than 8 hours, skip the missed dose and take the next dose atyour regular time. Do not take 2 doses of PAXLOVID at the same time. If you take too much PAXLOVID, call your healthcare provider or go to the nearest hospital emergency room right away. If you are taking a ritonavir-or cobicistat-containing medicine to treat hepatitis C or Human Immunodeficiency Virus (HIV), you should continue to take your medicine as prescribed by your healthcare provider. Talk to your healthcare provider if you do not feel better or if you feel worse after 5 days. Who should generally not take PAXLOVID? Do not take PAXLOVID if: You are allergic to nirmatrelvir, ritonavir, or any of the ingredients in PAXLOVID You are taking any of the following medicines: Alfuzosin Pethidine, propoxyphene Ranolazine Amiodarone, dronedarone, flecainide, propafenone, quinidine Colchicine Lurasidone, pimozide, clozapine Dihydroergotamine, ergotamine, methylergonovine Lovastatin, simvastatin Sildenafil (Revatio ) for pulmonary arterial hypertension (PAH) Triazolam, oral midazolam Apalutamide Carbamazepine, phenobarbital, phenytoin Rifampin Quincy s Wort (hypericum perforatum) Taking PAXLOVID with these medicines may cause serious or life-threatening side effects or affect how PAXLOVID works. These are not the only medicines that may cause serious side effects if taken with PAXLOVID. PAXLOVID may increase or decrease the levels of multiple other medicines. It is very important to tell your healthcare provider about all of the medicines you are taking because additional laboratory tests or changes in the dose of your other medicines may be necessary while you are taking PAXLOVID. Your healthcare provider may also tell you about specific symptoms to watch out for that may indicate that you need to stop or decrease the dose of some of your other medicines. What are the important possible side effects of PAXLOVID? Possible side effects of PAXLOVID are: Allergic Reactions. Allergic reactions can happen in people taking PAXLOVID, even after only 1 dose. Stop taking PAXLOVID and call your healthcare provider right away if you get any of the following symptoms of an allergic reaction: hives trouble swallowing or breathing swelling of the mouth, lips, or face throat tightness hoarseness skin rash Liver Problems. Tell your healthcare provider right away if you have any of these signs and symptoms of liver problems: loss of appetite, yellowing of your skin and the whites of eyes (jaundice), dark-colored urine, pale colored stools and itchy skin, stomach area (abdominal) pain. Resistance to HIV Medicines. If you have untreated HIV infection, PAXLOVID may lead to some HIV medicines not working as well in the future. Other possible side effects include: altered sense of taste diarrhea high blood pressure muscle aches These are not all the possible side effects of PAXLOVID. Not many people have taken PAXLOVID. Serious and unexpected side effects may happen. PAXLOVID is still being studied, so it is possible that all of the risks are not known at this time. What other treatment choices are there? Veklury (remdesivir) is FDA-approved for the treatment of wwyo-cf-lldebznc COVID-19 in certain adults and children. Talk with your doctor to see if Veklury is appropriate for you. Like PAXLOVID, FDA may also allow for the emergency use of other medicines to treat people with COVID-19. Go to https://www.fda.gov/xycnzrjun-rsmspzrhxyms-rhkzjucoorr/jjc-aliwk-moehmbyhaj-and- policy-framework/xwfxjuyba-dpm-otggtootczyzy for information on the emergency use of other medicines that are authorized by FDA to treat people with COVID-19. Your healthcare provider may talk with you aboutclinical trials for which you may be eligible. It is your choice to be treated or not to be treated with PAXLOVID. Should you decide not to receive it or for your child not to receive it, it will not change your standard medical care. What if I am or ? There is novelty balloon assembler and packer treating women or mothers with PAXLOVID. For a motherand unborn baby, the benefit of taking PAXLOVID may be greater than the risk from the treatment. Ifyou are , discuss your options and specific situation with your healthcare provider. It is recommended that you use effective barrier contraception or do not have sexual activity whiletaking PAXLOVID. If you are , discuss your options and specific situation with your healthcare provider. How do I report side effects with PAXLOVID? Contact your healthcare provider if you have any side effects that bother you or do not go away. Report side effects to FDA MedWatch at www.fda.gov/medwatch or call 0-601-EPT2007 or you can reportside effects to [employer] at the contact information provided below. Website Fax number Telephone number [employer] How should I store PAXLOVID? Store PAXLOVID tablets at room temperature, between 68?F to 77?F (20?C to 25?C). How can I learn more about COVID-19? Ask your healthcare provider. Visit https://www.cdc.gov/COVID19. Contact your local or state public health department. What is an Emergency Use Authorization (EUA)? The [place] FDA has made PAXLOVID available under an emergency access mechanism called an Emergency Use Authorization (EUA). The EUA is supported by a [place] of Health and Human Service (HHS) declaration that circumstances exist to justify the emergency use of drugs and biological productsduring the COVID-19 pandemic. PAXLOVID for the treatment of bmga-zu-axkjbkxb COVID-19 in adults and children [12 years of age andolder weighing at least 88 pounds (40 kg)] with positive results of direct SARS-CoV-2 viral testing, and who are at high risk for progression to severe COVID-19, including hospitalization or , has not undergone the same type of review as an FDA-approved product. In issuing an EUA under the COVID-19 public health emergency, the FDA has determined, among other things, that based on the total amount of scientific evidence available including data from adequate and well-controlled clinical trials, if available, it is reasonable to believe that the product may be effective for diagnosing, treating, or preventing COVID-19, or a serious or life-threatening disease or condition caused by COVID-19; that the known and potential benefits of the product, when used to diagnose, treat, or prevent such disease or condition, outweigh the known and potential risks of such product; and that there are no adequate, approved, and available alternatives. All of these criteria must be met to allow for the product to be used in the treatment of patients during the COVID-19 pandemic. The EUA for PAXLOVID is in effect for the duration of the COVID-19 declaration justifying emergency use of this product, unless terminated or revoked (after which the products may no longer be used under the EUA). Additional Information For general questions, visit the website or call the telephone number provided below. Website Telephone number www.[employer] ([phone]) You can also go to www.[employer] or call for more information. Pfizer Distributed by [employer] [address] [id number] Revised: 27 August 2021 documented in this encounterOhio[facility]-03-[facility]22 History of Present illness Narrative* Beckie Levine APRN.CNP - 03/14/2022 3:40 PM EDT This Team Access Model visit is a phone encounter. It required patient-provider interaction for themedical decision making as documented below. Patient agrees to the visit: Yes Patient Location: [place] CC: Patient presents with: Covid19 Concern HPI Alem Sheehan is a 72 year old male who is contacted today for a phone visit. This is an established patient of Dr. Roberto Carlos Mullen MD. Alem is a new patient to me today. Concerns today.. COVID--- COVID + on Monday from at home test. Symptoms -- Headache, head/sinus pressure, cough, and very fatigued/tired. Symptoms started on Monday Dayquil and nyquil did help symptoms. Denies any CP, SOB, dizziness, or palpitations. got booster shot on Monday -- having similar symptoms. tested with at home COVID test yesterday and was negative. Interested in paxlovid rx. 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 Diaphragmatic hernia without mention of obstruction or gangrene Esophagitis, unspecified Fatty liver Generalized anxiety disorder Anxiety, Generalized Heartburn 02/27/2017 History of aortic valve replacement 06/12/2014 Other and unspecified hyperlipidemia PMH - PAST MEDICAL HISTORY OF nodules in left lung Profound impairment, one eye, impairment level not further specified left Restless legs syndrome (RLS) Type II or unspecified type diabetes mellitus without mention of complication, not stated as uncontrolled 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ty 02/17/2017 Added automatically from request for surgery [id number] Umbilical hernia 2019 Unspecified asthma(493.90) Unspecified essential hypertension Unspecified sleep apnea PAST SURGICAL HISTORY Procedure Laterality Date ARTHRP KNE CONDYLE&PLATU MEDIAL&LAT COMPARTMENTS Left 12/25/2019 ASCENDING AORTA GRAFT W/BYPASS W/CORON REC 2014 COLONOSCOPY FLX DX W/COLLJ SPEC WHEN PFRMD 02/02/2005 Colonoscopy-repeat in COLONOSCOPY FLX DX W/COLLJ SPEC WHEN PFRMD 04/04/2016 DIAGNOSTIC ARTHROSCOPY SHOULDER +- SYNOVIAL BX Right 01/17/2014 EGD TRANSORAL BIOPSY SINGLE/MULTIPLE 04/23/2009 EYE SURGERY HX Left Eye removed from trauma I&D ABSC SMPL OR SGL Right 07/23/2008 Groin KNEE ARTHROSCOPY Right 05/23/2014 NEUROPLASTY &/TRANSPOSITION ULNAR NERVE ELBOW Right 03/01/2017 RECONSTRUCTION ROTATOR CUFF AVULSION CHRONIC Right 01/17/2014 RPR UMBILICAL HRNA 5 YRS/> REDUCIBLE 04/08/2020 VALVULOPLASTY - AORTIC VALVE 2015 WRIST SURGERY HX Left Mass removal ALLERGIES Seasonal Allergies, Erythromycin, Hctz [Amiloride- Hydrochlorothiazide], Oxycodone, and Tramadol MEDICATIONS blood sugar diagnostic ([employer] VERIO TEST STRIPS) test strip^Test blood sugar(s) 2 times daily. Dx: E11.9^Disp: 200 Strip^Rfl: 3 buPROPion XL (WELLBUTRIN XL) 150 mg 24 hr tablet^Take 1 tablet by mouth once daily.^Disp: 90 tablet^Rfl: 1 clotrimazole-betamethasone (LOTRISONE) cream^Apply to affected area twice daily.^Disp: 45 g^Rfl: 1 losartan (COZAAR) 100 mg tablet^Take 1 tablet by mouth once daily.^Disp: 30 tablet^Rfl: 5 atorvastatin (LIPITOR) 40 mg tablet^Take 1 tablet by mouth daily at bedtime. For cholesterol.^Disp:90 tablet^Rfl: 1 metFORMIN (GLUCOPHAGE) 1,000 mg tablet^Take 1 tablet by mouth twice daily with meals.^Disp: 180 tablet^Rfl: 1 amLODIPine (NORVASC) 10 mg tablet^Take 1 tablet by mouth once daily.^Disp: 90 tablet^Rfl: 3 magnesium oxide (MAG-OX) 400 mg (241.3 mg magnesium) tablet^Take 1 tablet by mouth once daily.^Disp: 90 tablet^Rfl: 3 carvedilol (COREG) 6.25 mg tablet^Take 1 tablet by mouth twice daily.^Disp: 180 tablet^Rfl: 3 dulaglutide (TRULICITY) 1.5 mg/0.5 mL pen injector^Inject 1.5 mg subcutaneously one time a week. Inject once per week. Discard Pen After^Disp: 2 mL^Rfl: 11 Cholecalciferol, Vitamin D3, 25 mcg (1,000 unit) cap^Take 1 capsule by mouth once daily.^Disp: ^Rfl: aspirin, enteric coated (ASPIRIN, ENTERIC COATED) 81 mg EC tablet^Take 2 tablets by mouth once daily.^Disp: ^Rfl: albuterol (PROVENTIL) 2.5 mg /3 mL (0.083 %) nebulizer solution^Use 2.5 mg via nebulizer.^Disp: ^Rfl: albuterol HFA (VENTOLIN HFA) 90 mcg/actuation inhaler^Inhale 2 Puffs as instructed every 4 hours asneeded for wheezing/shortness of breath.^Disp: 18 g^Rfl: 11 ondansetron (ZOFRAN) 4 mg tablet^Take 1 tablet by mouth every 8 hours as needed.^Disp: 10 tablet^Rfl: 0 pramipexole (MIRAPEX) 0.25 mg tablet^Take 1 tablet by mouth once daily.^Disp: 90 tablet^Rfl: 3 fluticasone (FLONASE) 50 mcg/actuation nasal spray^Use 2 Sprays in each nostril once daily.^Disp: 3Bottle^Rfl: 3 fluticasone/vilanterol (BREO ELLIPTA INHALATION)^Inhale 1 Puff as instructed once daily. ^Disp: ^Rfl: Cholecalciferol, Vitamin D3, 1,000 unit cap^Take 1 capsule by mouth once daily.^Disp: ^Rfl: 0 lancets (ONE TOUCH DELICA) 33 gauge misc^Test blood sugar(s) 2 daily.^Disp: 200 Each^Rfl: 3 Blood-Glucose Meter (ONETOUCH VERIO SYSTEM) misc^Dispense One Kit - Verio Meter Kit. Test blood sugar twice daily. Dx: E11.9. Insulin-no.^Disp: 1 Each^Rfl: 0 therapeutic multivitamin (THERA VITAMIN) tablet^Take 1 tablet by mouth daily with breakfast.^Disp: ^Rfl: 0 CPAP^As directed^Disp: 0^Rfl: 0 FAMILY HISTORY Problem Relation Age of Onset Asthma Mother Stroke Father blood clot other (Pulmonary embolism) Father Arthritis Sister Lupus DVT Brother Diabetes Brother Hypertension Brother Stroke Maternal Grandmother Heart Maternal Grandmother Heart Maternal Grandfather Heart Paternal Grandmother Stroke Paternal Grandmother Arthritis Daughter Sgrogren's Breast Cancer Maternal Aunt Cancer Maternal Aunt glioblastoma Social History Tobacco Use Smoking status: Never Smokeless tobacco: Never Vaping Use Vaping Use: Never used Substance Use Topics Alcohol use: No Drug use: No EXAM: Deferred physical exam as visit was completed over the phone Patient is speaking in complete sentences without obvious respiratory distress or audible wheezing. Virtual visit completed using video, limited exam completed. No exam performed DATA REVIEWED: Most recent labs and imaging results. BP CONTROLLED (<130/80) Never done COVID-19 VACCINE(4 - Booster for Moderna series) due on 06/21/2021 INFLUENZA(1) due on 02/10/2022 DILATED RETINAL EXAM due on 03/22/2022 DTAP,TDAP,TD(2 - Td or Tdap) due on 10/19/2022 SHINGRIX VACCINE(1 of 2) due on 10/19/2022 HBA1C due on 05/21/2022 URINE ALBUMIN:CREATININE RATIO due on 06/22/2022 LDL CHOLESTEROL due on 06/22/2022 DIABETIC FOOT EXAM due on 07/01/2022 ANNUAL PCP TEAM CHRONIC DISEASE VISIT due on 01/05/2023 COLORECTAL CANCER SCREENING due on 04/04/2026 SPIROMETRY Completed ADVANCE DIRECTIVE DISCUSSION Completed HEPATITIS C SCREENING Completed PNEUMOCOCCAL: 65+ Completed ASSESSMENT/PLAN: 1. COVID-19 - ICD9: 079.89, ICD10: U07.1 Discussed CDC guidelines. Rest and drink plenty of fluids. Paxlovid BID x 5 days. Discussed red flag symptoms and when to seek immediate medical attention. - NIRMATRELVIR 300 MG (150 MG X2)-RITONAVIR 100 MG TABLET,DOSE PACK(EUA) Prescription instructions reviewed with patient as applicable. Potential red flag symptoms discussed with the patient. Reviewed appropriate action plan to take if red flag symptoms occur. Patient agreeable to treatment plan. During this patient visit I have spent approximately 15 minutes in counseling regarding treatment options, medications, and test results. Beckie Levine APRN.PRINTED CIRCUIT BOARD PCB DRAFTSMAN Nirmatrelvir/Ritonavir (Paxlovid) Eligibility and Patient Discussion [facility] Formulary Restriction Criteria: Adult outpatients 18 years and older with ALL of the following: [x] Patient has positive SARS-COV-2 viral test (PCR or antigen test) during current illness [x] Patient has symptoms for 5 days or less [x] Not requiring hospitalization at any time for management of COVID-19 [x] Not requiring supplemental oxygen or a change in baseline supplemental oxygen [x] Not utilized for pre-exposure or post-exposure prophylaxis for prevention of COVID-19 [x] Patient does not have severe renal impairment (eGFR < 30 mL/min) or severe hepatic impairment (Child-Burris Class C) [x] Meeting at least one of the criteria for high risk of progression to severe COVID-19: [x] Age over 65 years [] Cancer [] Chronic kidney disease [] Chronic liver disease [] Chronic lung diseases, including cystic fibrosis [] Dementia or other neurological conditions [] Diabetes (type 1 or type 2) [] Disabilities, including Down syndrome and neurodevelopmental disorders [] Heart conditions [] HIV infection [] Immunocompromised state [] Mental health conditions [] Medical related technological dependence (tracheostomy, gastrostomy, or positive pressure ventilation (not related to COVID) [x] Overweight and obesity (BMI greater or equal to 25 for adults) [] Physical inactivity [] [] Sickle cell disease or thalassemia [] Smoking, current or former [] Solid organ or blood stem cell transplant [] Stroke or cerebrovascular disease [] Substance use disorders [] Tuberculosis [] People from racial and ethnic minority groups Criteria above are met: Yes Date of Positive Test: 03/12/22 Date of Symptom Onset: 03/11/22 Patient received COVID vaccine: Yes Drug-Drug interactions reviewed: Yes. No drug interactions were identified. I have discussed the use of the investigational therapeutic, nirmatrelvir/ritonavir, for the treatment of mild to moderate COVID-19 and its use under Emergency Use Authorization with the patient. The patient was informed that nirmatrelvir/ritonavir is not an FDA approved drug and that it is authorized for use under this Emergency Use Authorization. The patient was also informed of the significant known benefits and potential risks of nirmatrelvir/ritonavir, and the extent to which such potential risks and benefits are unknown. The patient was informed that there is mandatory reporting of all medication errors and serious adverse events potentially related to nirmatrelvir/ritonavir treatment within 7 calendar days from the onset of the event and that events up to 28 days after completion of therapy need to be reported. The discussion included alternatives to receiving nirmatrelvir/rit onavir, including clinical trials, and potential the risks and benefits of those alternatives. The patient was provided electronically with the Fact Sheet for Patients, Parents and Caregivers . The patient was also instructed that in addition to the treatment with nirmatrelvir/ritonavir, he/she should continue to self-isolate and use infection control measures (e.g., wear mask, isolate, social distance, avoid sharing personal items, clean and disinfect high touch surfaces, and frequent h andwashing) according to CDC guidelines. The patient stated understanding and gave verbal consent to proceeding with nirmatrelvir/ritonavir treatment. Beckie Levine APRN.DANAE March 14, 2022 4:09 PM documented in this encounterOhio[facility]10-[facility] Nurse Note* Kailey Cleary LPN - 03/14/2022 3:40 PM EDT Attempted to call pt prior to video visit with provider . Got machine left message woulf try to call again a little closer to appt time. 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 Please call him when ready for picket labor union at [phone] Thank you! documented in this encounterOhiohealth [facility]09-13-2022 Instructions* Patient Instructions* Anthony Knight MD - 02/22/2022 4:22 PM EDT - Avoid calcium pills - Continue vitamin D 1000 units daily - In about 4 months, we will do blood tests and 24 hour urine collection - Please arrange for a bone density scan before your next appointment with me. Please call [phone] to schedule - I will see you after that documented in this encounterOhiohealth [facility]09-13-2022 History of Present illness Narrative* Anthony Knight MD - 02/22/2022 4:20 PM EDT Images from the original note were not included. ENDOCRINOLOGY CLINIC NOTE Mr. Sheehan is a 72 year old male with CAD, GERD, T2DM, HTN, bicuspid aortic valve, asthma and sleep apnea presented for follow-up of hypercalcemia HPI Mr. Sheehan was noted to have a calcium level of 10.3 with GFR 54 in 2019. He has had intermittent mild hypercalcemia (normal iCa) since then. Labs in 10/2021 showed total calcium 10.7 (no concomitant albumin), iCa 1.27, GFR 77 vitamin D47.6, PTH 33. His PTHrP was undetectable and his SPEP was without M protein in 03/2020 Mr. Sheehan reported back and shoulder pains, but no polyuria, polydipsia, muscle aches. He has diarrhea alternating with constipation at times. He has a history of kidney stone 10 years ago, but no history of fractures. There is no family history of calcium related problems. He was taking calcium + vitamin D 500 mg + 200 unit twice a day and was on it for several years, in addition to vitamin D 1000 units daily Interval events: On his last visit, we discussed stopping the calcium supplements and trying to obtain 800-1000 mg calcium per day from diet. Repeat labs in 01/2022 showed total corrected calcium 9.2, iCa 1.29, GFR 77, vitamin D 39, PTH 40, normal TFTs and 24-hour urine calcium 302 [urine volume 1.4 L] He had a kidney stone last month and underwent stent placement. 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 Diaphragmatic hernia without mention of obstruction or gangrene Esophagitis, unspecified Fatty liver Generalized anxiety disorder Anxiety, Generalized Heartburn 02/27/2017 History of aortic valve replacement 06/12/2014 Other and unspecified hyperlipidemia PMH - PAST MEDICAL HISTORY OF nodules in left lung Profound impairment, one eye, impairment level not further specified left Restless legs syndrome (RLS) Type II or unspecified type diabetes mellitus without mention of complication, not stated as uncontrolled 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ty 02/17/2017 Added automatically from request for surgery [id number] Umbilical hernia 2019 Unspecified asthma(493.90) Unspecified essential hypertension Unspecified sleep apnea PAST SURGICAL HISTORY Procedure Laterality Date ARTHRP KNE CONDYLE&PLATU MEDIAL&LAT COMPARTMENTS Left 12/25/2019 ASCENDING AORTA GRAFT W/BYPASS W/CORON REC 2014 COLONOSCOPY FLX DX W/COLLJ SPEC WHEN PFRMD 02/02/2005 Colonoscopy-repeat in COLONOSCOPY FLX DX W/COLLJ SPEC WHEN PFRMD 04/04/2016 DIAGNOSTIC ARTHROSCOPY SHOULDER +- SYNOVIAL BX Right 01/17/2014 EGD TRANSORAL BIOPSY SINGLE/MULTIPLE 04/23/2009 EYE SURGERY HX Left Eye removed from trauma I&D ABSC SMPL OR SGL Right 07/23/2008 Groin KNEE ARTHROSCOPY Right 05/23/2014 NEUROPLASTY &/TRANSPOSITION ULNAR NERVE ELBOW Right 03/01/2017 RECONSTRUCTION ROTATOR CUFF AVULSION CHRONIC Right 01/17/2014 RPR UMBILICAL HRNA 5 YRS/> REDUCIBLE 04/08/2020 VALVULOPLASTY - AORTIC VALVE 2015 WRIST SURGERY HX Left Mass removal FAMILY HISTORY Problem Relation Age of Onset Asthma Mother Stroke Father blood clot other (Pulmonary embolism) Father Arthritis Sister Lupus DVT Brother Diabetes Brother Hypertension Brother Stroke Maternal Grandmother Heart Maternal Grandmother Heart Maternal Grandfather Heart Paternal Grandmother Stroke Paternal Grandmother Arthritis Daughter Sgrogren's Breast Cancer Maternal Aunt Cancer Maternal Aunt glioblastoma Social History Tobacco Use Smoking status: Never Smokeless tobacco: Never Vaping Use Vaping Use: Never used Substance Use Topics Alcohol use: No Drug use: No (Not in a hospital admission) Allergies As of Date: 02/22/2022 Allergen Noted Reaction SEASONAL ALLERGIES 12/03/2013 Other: See Comments ERYTHROMYCIN 12/25/2006 Diarrhea HCTZ [AMILORIDE-HYDROCHLOROTHIAZI*09/16/2020 Other: See Comments OXYCODONE 12/20/2021 GI Upset TRAMADOL 12/20/2021 GI Upset Fully Assessed 01/31/2022 Current Outpatient Medications Medication Sig Dispense Refill blood sugar diagnostic (ONETOUCH VERIO TEST STRIPS) test strip Test blood sugar(s) 2 times daily. Dx: E11.9 200 Strip 3 buPROPion XL (WELLBUTRIN XL) 150 mg 24 hr tablet Take 1 tablet by mouth once daily. 90 tablet 1 clotrimazole-betamethasone (LOTRISONE) cream Apply to affected area twice daily. 45 g 1 losartan (COZAAR) 100 mg tablet Take 1 tablet by mouth once daily. 30 tablet 5 atorvastatin (LIPITOR) 40 mg tablet Take 1 tablet by mouth daily at bedtime. For cholesterol. 90 tablet 1 metFORMIN (GLUCOPHAGE) 1,000 mg tablet Take 1 tablet by mouth twice daily with meals. 180 tablet 1 amLODIPine (NORVASC) 10 mg tablet Take 1 tablet by mouth once daily. 90 tablet 3 magnesium oxide (MAG-OX) 400 mg (241.3 mg magnesium) tablet Take 1 tablet by mouth once daily. 90 tablet 3 carvedilol (COREG) 6.25 mg tablet Take 1 tablet by mouth twice daily. 180 tablet 3 dulaglutide (TRULICITY) 1.5 mg/0.5 mL pen injector Inject 1.5 mg subcutaneously one time a week. Inject once per week. Discard Pen After 2 mL 11 Cholecalciferol, Vitamin D3, 25 mcg (1,000 unit) cap Take 1 capsule by mouth once daily. aspirin, enteric coated (ASPIRIN, ENTERIC COATED) 81 mg EC tablet Take 2 tablets by mouth once daily. albuterol (PROVENTIL) 2.5 mg /3 mL (0.083 %) nebulizer solution Use 2.5 mg via nebulizer. albuterol HFA (VENTOLIN HFA) 90 mcg/actuation inhaler Inhale 2 Puffs as instructed every 4 hours asneeded for wheezing/shortness of breath. 18 g 11 ondansetron (ZOFRAN) 4 mg tablet Take 1 tablet by mouth every 8 hours as needed. 10 tablet 0 pramipexole (MIRAPEX) 0.25 mg tablet Take 1 tablet by mouth once daily. 90 tablet 3 fluticasone (FLONASE) 50 mcg/actuation nasal spray Use 2 Sprays in each nostril once daily. 3 Bottle 3 fluticasone/vilanterol (BREO ELLIPTA INHALATION) Inhale 1 Puff as instructed once daily. Cholecalciferol, Vitamin D3, 1,000 unit cap Take 1 capsule by mouth once daily. 0 lancets (ONE TOUCH DELICA) 33 gauge misc Test blood sugar(s) 2 daily. 200 Each 3 Blood-Glucose Meter (ONETOUCH VERIO SYSTEM) misc Dispense One Kit - Verio Meter Kit. Test blood sugar twice daily. Dx: E11.9. Insulin-no. 1 Each 0 therapeutic multivitamin (THERA VITAMIN) tablet Take 1 tablet by mouth daily with breakfast. 0 CPAP As directed 0 0 Current Facility-Administered Medications Medication Dose Route Frequency Provider Last Rate Last Admin perflutren lipid microspheres 1.3 mL in NaCl (PF) 0.9% 10 mL injection (DEFINITY) INTRAVENOUS DIRECTED PRYoon Selby APRN.CNP sodium chloride 0.9 % (flush) 10 mL (BD POSIFLUSH) 10 mL INTRAVENOUS DIRECTED PRN Margo Selby APRN.CNP COMPLETE REVIEW OF SYSTEMS: Answers submitted by the patient for this visit: Core Review of Systems (Submitted on 02/15/2022) Fever : No Night Sweats: No Recent Unintentional Weight Change: No Nasal Congestion: No Hearing Loss: No Vision Disturbance: No A Cough: No Difficulty Breathing?: No Chest Pain: No Irregular Heart Beat: No Leg Swelling: Yes Nausea: No Diarrhea: Yes Black Tarry Stools: No Difficulty Urinating?: No Awaken at Night More Than Once to Urinate?: No Joint Pain or Stiffness: Yes Muscle Aches: No Leg or Foot Discomfort at Night?: No A Rash: Yes Dizziness: No Headaches: No Memory Loss: No Seizures: No PHYSICAL EXAM: 02/22/22 1557 BP: 150/91 Pulse: 76 SpO2: 98% Weight: 109.8 kg (242 lb) Height: 185.4 cm (6' 1 ) General: NAD, alert and cooperative, no facial plethora Previous exam: HEENT: EOMI, no proptosis/stare. Neck: supple with full ROM. No thyromegaly or palpable nodules Cardiovascular: RRR, +S1 and S2, systolic murmur on the left parasternal area Lungs: Clear to auscultation bilaterally Abdomen: soft, non-tender, non-distended Extremities: No LE oedema Neuro: Deep tendon reflexes are normal with a normal relaxation phase. Psych: Normal affect MSK: No back tenderness Labs: 06/22/2021 07:40 10/18/2021 15:22 10/28/2021 09:39 Calcium 9.7 10.7 (H) Ionized Calcium 1.31 (H) Normalized CAlcium 1.27 eGFR 77 eGFR-All Other Races >60 Vitamin D 25 Hydroxy 47.6 PTH, Intact 33 03/31/2020 13:52 PTH Related Peptide <2.0 Assessment and Recommendations: Mr. Sheehan is a pleasant 72-year-old man presented with his for follow up of hypercalcemia. He has had mild hypercalcemia since 2019, with intermittently low GFR and PTH in the lower half of normal. This was therefore most likely PTH dependent hypercalcemia, possibly representing primary hyperparathyroidism, but an element of excessive intake could have also been the culprit, although less l ikely because the PTH was not completely suppressed. FHH is excluded by the degree of calciuria Repeat labs after stopping the calcium pills and optimizing his calcium intake from diet showed normal total calcium, normal ionized calcium and PTH. His vitamin D is also appropriate. However, his urine calcium is marginally elevated. We discussed continuing to try to obtain calcium from diet, and will continue with vitamin D 1000 units daily. In about 4 months, I will repeat his blood test and 24-hour urine calcium. I also asked him to do the bone density scan. We will meet in 4 months to go over the results and next steps. Treating the hypercalciuria would be indicated in this case given the history of kidney stones. Some of the above has been copied from prior documentation on 11/19/2021 but peters elements reviewed, confirmed, and/or updated by me (Anthony Knight MD) on 02/22/2022 I spent a total of 40 minutes on the date of the service which included preparing to see the patient, [id number] patient care, completing clinical documentation, obtaining and/or reviewing separately obtained history, counseling and educating the patient/family/caregiver, and ordering medications, tests, or procedures. Anthony Knight MD documented in this encounterOhio[facility]09-13-2022 Miscellaneous Notes* Telephone Encounter - Roseanna Almanza TIN - 02/22/2022 8:48 AM EDT Patient called. Verified name and date of . Informed of results. Verbalizes understanding. Roseanna Almanza LPN * Telephone Encounter - Carlita Weldon RN - 02/22/2022 8:27 AM EDT Left message for pt to return call. Please notify of results and close encounter when pt calls back. Thank you. Carlita Weldon RN * Telephone Encounter - Carlita Weldon RN - 02/22/2022 8:27 AM EDT ----- Message from Margo Selby APRN.PRINTED [employer]ARD PCB DRAFTSMAN sent at 02/22/2022 7:47 AM EDT ----- Please call patient and notify him of normal results. Stress testing was without suggestion of ischemia. Thank you! documented in this encounterOhiohealth [facility]in [facility]09-12-2022 History of Present illness Narrative* Wenceslao Carter RN - 02/21/2022 10:34 AM EDT RADIOLOGY SERVICE PROGRESS NOTE SERVICE DATE: 02/21/2022 SERVICE TIME: 0840 PATIENT IDENTITY VERIFICATION COMPLETED USING TWO (2) METHODS: Patient confirmed name and Date of verbally. ALLERGIES REVIEWED: DEXTER MEDICATIONS REVIEWED BY: DEXTER PROCEDURE TYPE: NM STRESS: 0.4 mg of Lexiscan was administered IV at 0842 over 10 Seconds by IGLESIA Javed Reversal agent used:NA LOT [id number] EXP 03-12-2025 IV SITE: IV palced by nuclear tecnologist POST EXAM PIV STATUS: Discontinued by Metallographic Technician PATIENT DISCHARGED TO: Nuclear Medicine Department for post stress imaging A Diagnostic radioactive procedure has taken place, with no further precautions necessary other than routine body substance precautions. More information regarding radiation safety can be found usingthis link: [email or web address]%[email or web address] SIGNATURE: WENCESLAO CARTER RN PATIENT NAME: Alem Sheehan DATE: 02/21/22 TIME: 08:45 AM documented in this encounterOhiohealth [facility]in [facility]09-12-2022 History of Present illness Narrative* RT Marva(R) - 02/21/2022 7:00 AM EDT RADIOLOGY SERVICE PROGRESS NOTE SERVICE DATE: 02/21/2022 SERVICE TIME: 07:05 AM PATIENT IDENTITY VERIFICATION COMPLETED USING TWO (2) STANDARD IDENTIFIERS: Name and Date of confirmed by patient verbally FALL SCREENING: Has the patient had 2 falls in the last year or 1 fall with injury or currently using an Ambulatory Assistive Device (Walker, Cane, Wheelchair, Crutches, etc.)? No PATIENT GENDER DATA: .male ALLERGIES: Reviewed and unchanged MEDICATIONS REVIEWED: No PATIENT RELEVANT IMPLANT DATA REVIEWED: Not Applicable CREATININE: Creatinine Date Value Ref Range Status 02/09/2022 0.85 0.73 - 1.22 mg/dL Final 02/07/2022 1.03 0.73 - 1.22 mg/dL Final 10/18/2021 1.04 0.73 - 1.22 mg/dL Final Estimated Glomerular Filtration Rate Date Value Ref Range Status 02/09/2022 92 >=60 mL/min/1.73m Final Comment: Estimated Glomerular Filtration Rate (eGFR) is calculated using the 2020 CKD-EPI creatinine equation. This equation utilizes serum creatinine, sex, and age as parameters. The creatinine assay has traceable calibration to isotope dilution- mass spectrometry. Refer to KDIGO guidelines for clinical interpretation. In patients with unstable renal function, e.g. those with acute kidney injury, the eGFRmay not accurately reflect actual GFR. eGFR- Date Value Ref Range Status 06/22/2021 >60 Final P.O.C.T. RESULTS: N/A February 21, [address] PERFORMED: No IV SITE: Ambulatory: A peripheral IV was started in the Right antecubital site with a Angio cath: 24 gauge. POST EXAM PIV STATUS: Discontinued PROCEDURE TYPE: NM Stress: 12.8 mCi [id number] was administered IV for Rest Imaging at 07:30 by jim Mao. 31.1 mCi [id number] was administered IV for Stress Imaging at 08:42 by jim Cantor. ADMINISTRATION TIME: PATIENT DISCHARGED TO: Ambulatory patient, left NM department area. A Diagnostic radioactive procedure has taken place, with no further precautions necessary other than routine body substance precautions. More information regarding radiation safety can be found usingthis link: [email or web address] 20Diagnostic%20Nuclear%20Medicine%20Procedures.pdf SIGNATURE: RT Marva(Gail) PATIENT NAME: Alem Sheehan DATE: February 21, 2022 TIME: 10:08 AM PAGER/CONTACT #: documented in this encounterOhiohealth [facility]in [facility]08-31-2022 Miscellaneous Notes* Telephone Encounter - Roberto Carlos Mullen MD - 02/09/2022 8:53 AM EDT Lab notified order was canceled and needed put back in documented in this encounterOhiohealth [facility]in [facility]08-23-2022 Miscellaneous Notes* Telephone Encounter - Gena Rojas - 02/01/2022 2:47 PM EDT Placed call to patient with no answer. Left advising patient oint was called in. Advised to callback with any questions or concerns. My Chart message also sent. Gena Rojas * Telephone Encounter - Shayna Shi PA-C - 02/01/2022 2:26 PM EDT If not improving 3-5 days, notify The following approved medication requests have been transmitted electronically. Requested Prescriptions Signed Prescriptions Disp Refills mupirocin (BACTROBAN) 2 % ointment 15 g 0 Sig: Apply to affected area three times daily for 10 days. Perianal in addition to other creams using currently Authorizing Provider: Shayna SHI PA-C documented in this encounterOhiohealth [facility]in [facility]08-22-2022 History of Present illness Narrative* Isael Beatty - 01/31/2022 9:51 AM EDT Last saw Dr. Mullen: 01/05/22 Subjective: Patient presents to clinic c/o painful toenails. They state that the nails are especially painful with shoe gear and pressure. Patient states that nails 1-5 b/l are painful. Patient admits to being diabetic. No other pedal complaints at this time. Patient states no change in medications or medical history since last visit. Objective: Patient presents to clinic ambulating in diabetic shoe Vasc: DP and PT pulses are decreased bilateral. CFT is less than 5 seconds bilateral. Skin temperature is warm to cool proximal to distal bilateral. There is mild edema or varicosities noted. Neuro: Protective sensation is absent to the foot and toes when tested with the 5.07 SWM bilateral.Vibratory sensation is absent at the hallux IPJ bilateral. The hallux is downgoing bilateral. Derm: Nails 1-5 b/l are painful, discolored-yellow, thick, crumbly, dystrophic and with subungal debris. Skin is of normal turgor, texture and hair growth is present bilateral. There are no hyperkeratosis, ulcerations, scars, verruca or other lesions noted. Ortho: Muscle strength is 5/5 for all pedal groups tested. Ankle joint DF is decreased with the knee extended with no pain or crepitus noted. 1st MPJ ROM is decreased bilateral. Hammertoes present b/l. Assessment: (B35.1) Onychomycosis (primary encounter diagnosis) (M79.675) Pain in toe of left foot (M79.674) Pain in toe of right foot (E11.42) Diabetic polyneuropathy associated with type 2 diabetes mellitus (HCC) (I73.9) PAD (peripheral artery disease) ([facility]) Plan: Patient was seen and evaluated. Nails 1-5 bilateral were debrided in length and thickness. Patient was instructed on the continued importance of diabetic foot care along with proper diet and keeping their blood sugar under control to prevent complications. Diabetic shoes ordered. Recommend he continue with lotion to feet daily. Patient is to RTC in 3-4 months. Isael Beatty DPM * Gudelia Pyle LPN - 01/31/2022 9:24 AM EDT Patient presents with: Left Foot - Established Patient, Follow Up, Diabetic Foot Care Right Foot - Established Patient, Follow Up, Diabetic Foot Care Gudelia Pyle LPN documented in this encounterOhiohealth [facility]08-22-2022 Instructions* Patient Instructions* Isael Beatty - 01/31/2022 9:50 AM EDT Diabetes Foot Care Instructions When you have diabetes, proper foot care is very important. Poor foot care may lead to amputation of a foot or leg. As a person with diabetes, you are more vulnerable to foot problems, because diabetes can damage your nerves and reduce blood flow to your feet. Here are some diabetes foot care tips to follow: Wash and Dry Your Feet Daily Use mild soaps Use warm water Pat your skin dry; do not rub. Thoroughly dry your feet. After washing, use lotion on your feet to prevent cracking. Do not put lotion between your toes. Examine Your Feet Each Day Check the tops and bottoms of your feet. Have someone else look at your feet if you cannot see them. Check for dry, cracked skin. Look for blisters, cuts, scratches, or other sores. Check for redness, increased warmth, or tenderness when touching any area of your feet. Check for ingrown toenails, corns, and calluses. If you get a blister or sore from your shoes, do not pop it. Apply a bandage and wear a differentpair of shoes. Take Care of Your Toenails Cut toenails after bathing, when they are soft. Cut toenails straight across and smooth with a nail file. Avoid cutting into the corners of toes. Do not cut cuticles. If you have neuropathy (or decreased sensation in your feet) a anime artist should always cut your toenails. Be Careful When Exercising Walk and exercise in comfortable shoes. Do not exercise when you have open sores on your feet. Protect Your Feet With Shoes and Socks Never go barefoot. Always protect your feet by wearing shoes or hard-soled slippers or footwear. Avoid shoes with high heels and pointed toes. Avoid shoes that expose your toes or heels (such as open-toed shoes or sandals). These types of shoes increase your risk for injury and potential infections. Try on new footwear with the type of socks you usually wear. Do not wear new shoes for more than an hour at a time. Change your socks daily. Look and feel inside your shoes before putting them on to make sure there are no foreign objects orrough areas. Avoid tight socks. Wear natural-fiber socks (cotton, wool, or a cotton-wool blend). Wear special shoes if your health care provider recommends them. Wear shoes/boots that will protect your feet from various weather conditions (cold, moisture, etc.). Make sure your shoes fit properly. If you have neuropathy (nerve damage), you may not notice that your shoes are too tight. Perform the footwear test described below. Footwear Test Use this simple test to see if your shoes fit correctly: Stand on a piece of paper. (Make sure you are standing and not sitting, because your foot changes shape when you stand.) Trace the outline of your foot. Trace the outline of your shoe. Compare the tracings: Is the shoe too narrow? Is your foot crammed into the shoe? The shoe should be at least 1/2 inch longer than your longest toe and as wide as your foot. Proper Shoe Choices The following types of shoes are best for people with diabetes Closed toes and heels Leather uppers without a seam inside At least 1/2 inch extra space at the end of your longest toe Inside of shoe should be soft with no rough areas Outer sole should be made of stiff material Shoes should be at least as wide as your feet Tips for Foot Care in Diabetes Don't wait to treat a minor foot problem if you have diabetes. Follow your health care provider's guidelines and first aid guidelines. Report foot injuries and infections to your health care provider immediately. Check water temperature with your elbow, not your foot. Do not use a heating pad on your feet. Do not cross your legs. Do not self-treat your corns, calluses, or other foot problems. Go to your health care provider or anime artist to treat these conditions. documented in this encounterOhiohealth [facility]08-22-2022 History of Present illness Narrative* Elsi Gallagher PA-C - 01/31/2022 9:17 AM EDT Elsi Gallagher PA-C Department of Orthopaedics Orthopaedics [address] [facility] [address] Dept: [phone] Dept January 31, 2022 CHIEF COMPLAINT: Pain and Established Patient of the Left Hip (Last seen 08/17/20 Right rotator cuff tear with injection given) Mr. Alem Sheehan is a 72 year old male who presents with pain in his left hip that has been bothering for about the past 6 months. Pain is a 4 out of 10 aching, numbness mostly in the buttock region. Patient states that the pain is worse when he stands on a harder surface, he feels as though hisleft leg is sometimes in giving out. He was seen by Dr. Beyer and had some injections in his low back, he reports about 2 weeks of relief. Unfortunately he did not return for repeat injections as he was awake during the procedure and found it to be very uncomfortable. He denies any groin pain. No locking or catching of the hip. He is about 2 years status post left total knee arthroplasty with Dr. Malik. Very happy with results. He is asking about potentially getting a replacement on the right. ASSESSMENT: M47.27 Lumbosacral spondylosis with radiculopathy (primary encounter diagnosis) M16.12 Primary osteoarthritis of left hip M25.559 Hip pain PLAN: He has some mild arthritic changes of the hip though his hip exam is rather benign. He did get good relief from previous injections, so suggested that he follow-up with Dr. Beyer for further recommendations. In the meantime we can try some physical therapy, core strengthening to help with the lumbar listhesis. Mr. Alem Sheehan was advised as to contrast therapies and/or to take analgesics/anti-inflammatories as needed and all contraindications were reviewed. OBJECTIVE: Mr. Alem Sheehan is a pleasant 72 year old in no apparent distress. Gen:There were no vitals taken for this visit. nl development, obese, no deformities ENT: Normocephalic, normal hearing, moist mucosa CV: Pulses:DP/PT= 2+ and symmetric, capillary refill < 2 secs, no peripheral edema/varicosities Skin: no rash, bruising or lesions. Good turgor. Psych: cooperative and appropriate, alert and oriented x 3, good mood and affect. Musculoskeletal: HIP EXAM: Left: ROM: Extension: full extension Flexion: 110 degrees Internal Rotation: 30 degrees External Rotation: 40 degrees Abduction: 30 degrees Adduction: 30 degrees Strength: Abduction 5/5 and Flexion 5/5 Palpation: No tenderness Log roll: non-painful. Straight leg raise: negative Neurovascular Status: Sensation Intact, Moves foot and ankle up & down, and 2+ dorsalis pedis Imaging: * * *Final Report* * * DATE OF EXAM: Jan 31 2022 8:29AM [id number] [id number] - XR HIP 3V PELV+ AP/LAT LT / PROCEDURE REASON: Pain in left hip * * * * Physician Interpretation * * * * HISTORY: left hip pain. Pain in left hip . TECHNIQUE: XR HIP 3V PELV+ AP/LAT LT Laterality: LEFT Number of different views (projections): 3 and 4 images COMPARISON: None RESULT: There is mild narrowing of the superomedial aspect left hip. To the right side. No osteophyte formation identified at this stage. No fracture. The bony pelvis is intact. Right hip is maintained. Degenerative changes lower lumbar spine. IMPRESSION IMPRESSION: Mild narrowing of the left hip likely degenerative in nature. No fracture. Predatory Animal Hunter: ADRIANE Transcribe Date/Time: Feb 01 2022 8:04A Dictated by : TRAY FERNANDES MD This examination was interpreted and the report reviewed and electronically signed by: TRAY FERNANDES MD on Feb 01 2022 8:05AM EST IMPRESSION: Grade 2 spondylolisthesis of L5 on S1. Old bilateral L5 pars fractures with distraction. There is no significant spinal canal narrowing and no distal cord impingement. Severe bilateral foraminal narrowing is present at L5-S1. This may contribute to radiculopathy. Degree of obesity may contribute to mechanical back pain. Anatomic Thoracic/Lumbar Variant: None. L4-5 is considered the level of the iliac crest and assume there are 5 lumbar-type vertebrae. Predatory Animal Hunter: PSCB Transcribe Date/Time: Apr 23 2021 1:18P Dictated by : MAXINE CAPPS MD This examination was interpreted and the report reviewed and electronically signed by: MAXINE CAPPS MD on Apr 23 2021 1:23PM EST Results-Findings * * *Final Report* * * DATE OF EXAM: Apr 23 2021 12:55PM [id number] [id number] - MRI LUMBAR SPINE WO IVCON / PROCEDURE REASON: Spinal stenosis of lumbar region, unspecified whether neurogenic claudication pr * * * * Physician Interpretation * * * * EXAMINATION: MRI LUMBAR SPINE WO IVCON CLINICAL HISTORY: Spinal stenosis of lumbar region, unspecified whether neurogenic claudication present TECHNIQUE: Routine lumbosacral spine MR protocol without gadolinium. MQ: [id number] COMPARISON: Lumbar plain films 07/29/2020. RESULT: Counting reference: Lumbosacral junction. For the purposes of this report, L4-5 is considered the level of the iliac crest and assume there are 5 lumbar-type vertebrae. Anatomic variant: None. Localizer images: Obesity. Bilateral renal cysts. No paraspinal masses visible within the [id number]. Alignment: Mild scoliotic curvature convex left. Carmen L3. Grade 2 spondylolisthesis of L5 on S1. Old bilateral pars fractures with distraction. Minimal retrolisthesis L4 over L5 on the order of 1-2 mm. Bone marrow signal/fracture: As above. Old bilateral L5 pars fractures with distraction. Vertebral body height is maintained. No bony retropulsion. Conus: Distal cord terminates normally at L1-L2. Paraspinal soft tissues: Obesity. Bilateral renal cysts. No paraspinal masses. Lower thoracic spine: Canal and foramina are normally patent at T11-T12. T12-L1: Canal and foramina are patent. L1-L2: Canal and foramina are patent. L2-L3: Minimal disc bulging and mild facet degenerative change. Canal and foramina are patent. L3-L4: Minimal disc bulging and mild facet degenerative change. Canal and foramina are patent. L4-L5: Minimal retrolisthesis, minimal disc bulging, and mild facet degenerative change. Canal and foramina are patent. L5-S1: Grade 2 spondylolisthesis as discussed above. Central canal is patent. No gross compression of either descending S1 nerve root sleeve. There is severe bilateral foraminal narrowing. Sacrum and iliac wings: No evidence for fracture. S2 Tarlov cysts. Supporting Subjective Information Below: Past Surgical History: PAST SURGICAL HISTORY Procedure Laterality Date ARTHRP KNE CONDYLE&PLATU MEDIAL&LAT COMPARTMENTS Left 12/25/2019 ASCENDING AORTA GRAFT W/BYPASS W/CORON REC 2014 COLONOSCOPY FLX DX W/COLLJ SPEC WHEN PFRMD 02/02/2005 Colonoscopy-repeat in COLONOSCOPY FLX DX W/COLLJ SPEC WHEN PFRMD 04/04/2016 DIAGNOSTIC ARTHROSCOPY SHOULDER +- SYNOVIAL BX Right 01/17/2014 EGD TRANSORAL BIOPSY SINGLE/MULTIPLE 04/23/2009 EYE SURGERY HX Left Eye removed from trauma I&D ABSC SMPL OR SGL Right 07/23/2008 Groin KNEE ARTHROSCOPY Right 05/23/2014 NEUROPLASTY &/TRANSPOSITION ULNAR NERVE ELBOW Right 03/01/2017 RECONSTRUCTION ROTATOR CUFF AVULSION CHRONIC Right 01/17/2014 RPR UMBILICAL HRNA 5 YRS/> REDUCIBLE 04/08/2020 VALVULOPLASTY - AORTIC VALVE 2014 WRIST SURGERY HX Left Mass removal Medications: Current Outpatient Medications Medication Sig buPROPion XL (WELLBUTRIN XL) 150 mg 24 hr tablet Take 1 tablet by mouth once daily. clotrimazole-betamethasone (LOTRISONE) cream Apply to affected area twice daily. losartan (COZAAR) 100 mg tablet Take 1 tablet by mouth once daily. atorvastatin (LIPITOR) 40 mg tablet Take 1 tablet by mouth daily at bedtime. For cholesterol. metFORMIN (GLUCOPHAGE) 1,000 mg tablet Take 1 tablet by mouth twice daily with meals. amLODIPine (NORVASC) 10 mg tablet Take 1 tablet by mouth once daily. magnesium oxide (MAG-OX) 400 mg (241.3 mg magnesium) tablet Take 1 tablet by mouth once daily. carvedilol (COREG) 6.25 mg tablet Take 1 tablet by mouth twice daily. dulaglutide (TRULICITY) 1.5 mg/0.5 mL pen injector Inject 1.5 mg subcutaneously one time a week. Inject once per week. Discard Pen After aspirin, enteric coated (ASPIRIN, ENTERIC COATED) 81 mg EC tablet Take 2 tablets by mouth once daily. pramipexole (MIRAPEX) 0.25 mg tablet Take 1 tablet by mouth once daily. fluticasone (FLONASE) 50 mcg/actuation nasal spray Use 2 Sprays in each nostril once daily. fluticasone/vilanterol (BREO ELLIPTA INHALATION) Inhale 1 Puff as instructed once daily. Cholecalciferol, Vitamin D3, 1,000 unit cap Take 1 capsule by mouth once daily. therapeutic multivitamin (THERA VITAMIN) tablet Take 1 tablet by mouth daily with breakfast. blood sugar diagnostic ([employer]CH VERIO TEST STRIPS) test strip Test blood sugar(s) 2 times daily. Dx: E11.9 Cholecalciferol, Vitamin D3, 25 mcg (1,000 unit) cap Take 1 capsule by mouth once daily. albuterol (PROVENTIL) 2.5 mg /3 mL (0.083 %) nebulizer solution Use 2.5 mg via nebulizer. albuterol HFA (VENTOLIN HFA) 90 mcg/actuation inhaler Inhale 2 Puffs as instructed every 4 hours asneeded for wheezing/shortness of breath. ondansetron (ZOFRAN) 4 mg tablet Take 1 tablet by mouth every 8 hours as needed. lancets (ONE TOUCH DELICA) [facility] Test blood sugar(s) 2 daily. Blood-Glucose Meter (LimaTOUCH VERIO SYSTEM) [facility] Dispense One Kit - Verio Meter Kit. Test blood sugar twice daily. Dx: E11.9. Insulin-no. CPAP As directed Current Facility-Administered Medications Medication Dose Route Frequency perflutren lipid microspheres 1.3 mL in NaCl (PF) 0.9% 10 mL injection (DEFINITY) INTRAVENOUS DIRECTED PRN sodium chloride 0.9 % (flush) 10 mL (BD POSIFLUSH) 10 mL INTRAVENOUS DIRECTED PRN Allergies: Seasonal Allergies, Erythromycin, Hctz [Amiloride- Hydrochlorothiazide], Oxycodone, and Tramadol ROS: General (negative for fatigue, malaise, weight loss/gain) HEENT (negative for headache, earache, recent vision changes, sinus pain, sore throat) Respiratory (no recent shortness of breath, hemoptysis) CV (negative for chest tightness, palpitations) Musculoskeletal (see HPI) Psych (no depression, anxiety) This note was partially generated using bookletmobile voice recognition system, and there may be some incorrect words, spellings, and punctuation that were not noted in checking the note before saving. Elsi Gallagher PA-C * Shruthi Dillon Ma - 01/31/2022 8:36 AM EDT AMB ROOMING INTAKE FLOWSHEET DATA Risk Screening Do you have concerns about personal safety or safety in the home?: No Pain Pain Level: 4 Pain Location: Hip-Left Description: Aching, Other: See comment (locking) Duration Amount of Time: (ongoing) Frequency: Intermittent Intervention/Comfort measure: Other: See comment (none) Patient here today with his for left hip pain. He would like to get an injection. He also reports that he fell about 6 weeks ago and landed on the left knee. He feels a bump. documented in this encounter[facility] Miscellaneous Notes* Telephone Encounter - Gena Rojas - 01/12/2022 10:30 AM EDT Pended for 90. Gena Rojas documented in this encounterOhio[facility]07-29-2022 Miscellaneous Notes* Telephone Encounter - Kayla Vu LPN - 01/07/2022 2:45 PM EDT Spoke with pt about test results and recommendation. Verbalizes understanding and is agreeable. Kayla Vu LPN * Telephone Encounter - Kayla Vu LPN - 01/07/2022 2:12 PM EDT Voicemail msg left for pt to return call to [facility] to review test results and recommendations. Office phone number provided. Kayla Vu LPN * Telephone Encounter - Kayla Vu LPN - 01/07/2022 2:11 PM EDT ----- Message from Margo Selby APRN.[employer] sent at 01/07/2022 1:43 PM EDT ----- Please call patient and notify them of echo results. Mild increase in aortic valve gradients post replacement but overall stable. We can continue to monitor with yearly echocardiograms. Thank you! documented in this encounterOhiohealth [facility]07-29-2022 Miscellaneous Notes* Result QuickNote - Margo Selby APRN.CNP - 01/07/2022 1:43 PM EDT Please call patient and notify them of echo results. Mild increase in aortic valve gradients post replacement but overall stable. We can continue to monitor with yearly echocardiograms. Thank you! documented in this encounterOhiohealth [facility]07-27-2022 Instructions* Patient Instructions* Roberto Carlos Mullen MD - 01/05/2022 10:02 AM EDT My chart update in a week. documented in this encounterOhiohealth [facility]07-27-2022 History of Present illness Narrative* Roberto Carlos Mullen MD - 01/05/2022 9:44 AM EDT Patient presents with: Derm Problem HPI: Patient presents today for office visit for rash. DERM: Patient presents with rash. Duration: At least 2 months. Location: Buttocks. Abve rectum. Changes in soaps or detergents: No. New medications or foods: No. Exposure to others with rash: No. Previous treatments: Aguaphor, buttpaste, antifungal cream - mild relief. Has only used it for a few days at a time. Is very sedentary. Painful to touch. 8 out 10 on pain scale. Burning sharp pain. Feels like a raw wound. Not as active. Follows with pain management. MEDICATIONS: Current Outpatient Medications Medication Sig losartan (COZAAR) 100 mg tablet Take 1 tablet by mouth once daily. blood sugar diagnostic ([employer] VERIO TEST STRIPS) test strip Test blood sugar(s) 2 times daily. Dx: E11.9 atorvastatin (LIPITOR) 40 mg tablet Take 1 tablet by mouth daily at bedtime. For cholesterol. metFORMIN (GLUCOPHAGE) 1,000 mg tablet Take 1 tablet by mouth twice daily with meals. amLODIPine (NORVASC) 10 mg tablet Take 1 tablet by mouth once daily. magnesium oxide (MAG-OX) 400 mg (241.3 mg magnesium) tablet Take 1 tablet by mouth once daily. buPROPion XL (WELLBUTRIN XL) 150 mg 24 hr tablet Take 1 tablet by mouth once daily. carvedilol (COREG) 6.25 mg tablet Take 1 tablet by mouth twice daily. dulaglutide (TRULICITY) 1.5 mg/0.5 mL pen injector Inject 1.5 mg subcutaneously one time a week. Inject once per week. Discard Pen After Cholecalciferol, Vitamin D3, 25 mcg (1,000 unit) cap Take 1 capsule by mouth once daily. aspirin, enteric coated (ASPIRIN, ENTERIC COATED) 81 mg EC tablet Take 2 tablets by mouth once daily. albuterol (PROVENTIL) 2.5 mg /3 mL (0.083 %) nebulizer solution Use 2.5 mg via nebulizer. albuterol HFA (VENTOLIN HFA) 90 mcg/actuation inhaler Inhale 2 Puffs as instructed every 4 hours asneeded for wheezing/shortness of breath. ondansetron (ZOFRAN) 4 mg tablet Take 1 tablet by mouth every 8 hours as needed. pramipexole (MIRAPEX) 0.25 mg tablet Take 1 tablet by mouth once daily. fluticasone (FLONASE) 50 mcg/actuation nasal spray Use 2 Sprays in each nostril once daily. fluticasone/vilanterol (BREO ELLIPTA INHALATION) Inhale 1 Puff as instructed once daily. Cholecalciferol, Vitamin D3, 1,000 unit cap Take 1 capsule by mouth once daily. lancets (ONE TOUCH DELICA) 33 gauge misc Test blood sugar(s) 2 daily. Blood-Glucose Meter (ONETOUCH VERIO SYSTEM) misc Dispense One Kit - Verio Meter Kit. Test blood sugar twice daily. Dx: E11.9. Insulin-no. therapeutic multivitamin (THERA VITAMIN) tablet Take 1 tablet by mouth daily with breakfast. CPAP As directed Current Facility-Administered Medications Medication Dose Route Frequency perflutren lipid microspheres 1.3 mL in NaCl (PF) 0.9% 10 mL injection (DEFINITY) INTRAVENOUS DIRECTED PRN sodium chloride 0.9 % (flush) 10 mL (BD POSIFLUSH) 10 mL INTRAVENOUS DIRECTED PRN ALLERGIES: ALLERGIES Allergen Reactions Seasonal Allergies Other: See Comments SOB due to tree pollen, dog dander, weeds, cow dander,molds, pine pollen. 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 Diaphragmatic hernia without mention of obstruction or gangrene Esophagitis, unspecified Fatty liver Generalized anxiety disorder Anxiety, Generalized Heartburn 02/27/2017 History of aortic valve replacement 06/12/2014 Other and unspecified hyperlipidemia PMH - PAST MEDICAL HISTORY OF nodules in left lung Profound impairment, one eye, impairment level not further specified left Restless legs syndrome (RLS) Type II or unspecified type diabetes mellitus without mention of complication, not stated as uncontrolled 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ty 02/17/2017 Added automatically from request for surgery [id number] Umbilical hernia 2019 Unspecified asthma(493.90) Unspecified essential hypertension Unspecified sleep apnea PAST SURGICAL HISTORY Procedure Laterality Date ARTHRP KNE CONDYLE&PLATU MEDIAL&LAT COMPARTMENTS Left 12/25/2019 ASCENDING AORTA GRAFT W/BYPASS W/CORON REC 2014 COLONOSCOPY FLX DX W/COLLJ SPEC WHEN PFRMD 02/02/2005 Colonoscopy-repeat in 8-2015 COLONOSCOPY FLX DX W/COLLJ SPEC WHEN PFRMD 04/04/2016 DIAGNOSTIC ARTHROSCOPY SHOULDER +- SYNOVIAL BX Right 01/17/2014 EGD TRANSORAL BIOPSY SINGLE/MULTIPLE 04/23/2009 EYE SURGERY HX Left Eye removed from trauma I&D ABSC SMPL OR SGL Right 07/23/2008 Groin KNEE ARTHROSCOPY Right 05/23/2014 NEUROPLASTY &/TRANSPOSITION ULNAR NERVE ELBOW Right 03/01/2017 RECONSTRUCTION ROTATOR CUFF AVULSION CHRONIC Right 01/17/2014 RPR UMBILICAL HRNA 5 YRS/> REDUCIBLE 04/08/2020 VALVULOPLASTY - AORTIC VALVE 2015 WRIST SURGERY HX Left Mass removal FAMILY HISTORY Problem Relation Age of Onset Asthma Mother Stroke Father blood clot other (Pulmonary embolism) Father Arthritis Sister Lupus DVT Brother Diabetes Brother Hypertension Brother Stroke Maternal Grandmother Heart Maternal Grandmother Heart Maternal Grandfather Heart Paternal Grandmother Stroke Paternal Grandmother Arthritis Daughter Sgrogren's Breast Cancer Maternal Aunt Cancer Maternal Aunt glioblastoma Social History Tobacco Use Smoking status: Never Smoker Smokeless tobacco: Never Used Vaping Use Vaping Use: Never used Substance Use Topics Alcohol use: No Drug use: No Reviewed current medications, allergies, past medical history, surgical history, family history andsocial history today. REVIEW OF SYSTEMS All other reviewed and negative other than HPI. HEALTH MAINTENANCE: Reviewed health maintenance issues today and recommended the following in detail. ADVANCE DIRECTIVE DISCUSSION Never done. Discussed with patient. VITALS: BP 122/76 (BP Site: Left Arm, BP Position: Sitting, BP Cuff Size: Regular Adult) Pulse 82 Resp 20 Wt 108.9 kg (240 lb) BMI 31.81 kg/m Last 4 Encounter Wt Readings: Date: Wt: 01/05/2022 108.9 kg (240 lb) 01/04/2022 108 kg (238 lb) 12/20/2021 107 kg (236 lb) 11/19/2021 109.3 kg (241 lb) PHYSICAL EXAMINATION: General appearance: Well appearing, alert, in no acute distress, well-hydrated, well nourished. Skin: Skin color, texture, turgor normal, no suspicious rashes or lesions Head: Normocephalic, no masses, lesions, tenderness or abnormalities Lungs: Lungs clear to auscultation. No wheezing, rhonchi, rales Heart: RRR without murmur, gallop, or rubs. No ectopy Abdomen: Normal abdominal exam, Abdomen soft, non-tender. Bowel sounds normal. No masses, organomegaly Buttocks: see above. Is red with scaly areas on surface. No signs of cellulitis. No definite open areas. ASSESSMENT/PLAN: 1. Dermatitis - ICD9: 692.9, ICD10: L30.9 - has been using a sensitive skin wipe as well. Will change to tucks. - discussed skin care of rash - follow up if symptoms persist or worsen. - Call with update next week. Keep area dry. Try combo agent to help with fungal and inflammation. - CLOTRIMAZOLE-BETAMETHASONE 1 %-0.05 % TOPICAL CREAM Roberto Carlos Mullen documented in this encounterOhio[facility]07-27-2022 Nurse Note* Luann Adame Ma - 01/05/2022 9:25 AM EDT Pt c/o of a rash that has been ongoing for the past several months, but worse over the past 3 weeks. This is located on his buttock, above his rectum. Has tried using multiple creams such as buttpaste and Aquaphor. states that the area is dry and flaky at times. The skin will split and have a sore, but denies drainage. Pain worse with sitting, described as a burning, sharp pain an 8/10. Doeshave constant pain but most severe with sitting. documented in this encounterOhio[facility]07-26-2022 Instructions* Patient Instructions* Ada Martinez APRN.DANAE - 01/04/2022 10:02 AM EDT Images from the original note were not included. - Start OTC probiotic with at least 15 billion live cultures, 10+ strains - Drink around 64 oz water daily - Benefiber daily: 2 teaspoons added to 8 ounces of water up to 3 times daily. Improving Your Health with Fiber This guide provides basic information to help you start increasing dietary fiber in your diet. These are general guidelines that may be tailored to meet your needs. Fiber is an important dietary substance to help support your health. Making changes in your current eating habits will help you eat more healthfully. Most fiber-containing foods are also good sources of vitamins, minerals, and antioxidants, which offer many health benefits. A registered dietitian can provide in-depth nutrition education to help you develop a personal action plan. What is fiber? Fiber is the structural part of plant foods--such as fruits, vegetables, and grains--that our bodies cannot digest or break down. There are two kinds of fiber: soluble and insoluble. Soluble fiber: dissolves in water to form a gummy gel. It can slow down the passage of food from the stomach to the intestine. Examples: dried beans, oats, barley, banana, potatoes, and soft parts of apples and pears Insoluble fiber: often referred to as roughage because it does not dissolve in water. It holds onto water, which helps produce softer, bulkier stools to help regulate bowel movements. Examples: whole bran, whole grain products, nuts, corn, carrots, grapes, berries, and peels of apples and pears What other things does fiber do? Research has shown that a diet rich in fiber is associated with many health benefits, including thefollowin. Lowers cholesterol--Soluble fiber has been shown to lower cholesterol by binding to bile (composed of cholesterol) and taking it out of the body. This may help reduce the risk of heart disease. 2. Better regulates blood sugar levels--A high-fiber meal slows down the digestion of food into theintestines, which may help to keep blood sugars from rising rapidly. 3. Weight control--A high-fiber diet may help keep you mccormick longer, which prevents overeating andhunger between meals. 4. May prevent intestinal cancer--Insoluble fiber increases the bulk and speed of food moving through the intestinal tract, which reduces time for harmful substances to build up. 5. Constipation--Constipation can often be relieved by increasing the fiber or roughage in your diet. Fiber works to help regulate bowel movements by pulling water into the colon to produce softer, bulkier stools. This action helps to promote better regularity. How much fiber should I eat? The recommendation is to consume about 20-35 grams of total fiber per day, with 10-15 grams from soluble fiber. This can be accomplished by choosing 6 ounces of grains (3 or more ounces from whole grains), 2 cups of vegetables, and 2 cups of fruit per day (based on a 2,000 calorie/day pattern). Note: Eating a high-fiber diet may interfere with the absorption and effectiveness of some medications. Speak to your doctor about which medications to take with caution and when to take them. Fiber also binds with certain nutrients and carries them out of the body. To avoid this, aim for the recomm ended 20-35 grams of fiber per day. Some studies indicate that up to 50 grams of dietary fiber may help control blood sugars for people with diabetes. When eating a high-fiber diet, be sure to drink at least eight glasses of fluid each day. Tips for increasing dietary fiber in your diet: Add fiber to your diet slowly. Too much fiber all at once may cause cramping, bloating, and constipation. When adding fiber to your diet, be sure to increase fluids (at least 64 ounces per day) to prevent constipation. Buy bread with 2-4 grams of dietary fiber per slice. Buy cereals with at least 5 grams of dietary fiber per serving. Choose cereals with a whole grain such as whole wheat or whole grain rolled oats. Choose raw fruits and vegetables in place of juice. Choose products that have a whole grain listed as the first ingredient, not enriched flour. Whole wheat flour is a whole grain--wheat flour is not. Try alternative fiber choices such as whole buckwheat, whole wheat couscous, quinoa, and bulgur. Popcorn is a whole grain. Serve it low-fat without butter for a healthier snack choice. Try whole wheat bread and whole wheat pastas. Sprinkle bran in soups, cereals, baked products, spaghetti sauce, ground meat, and casseroles. Branalso mixes well with orange juice. Use dried peas, beans, and legumes in main dishes, salads, or side dishes such as rice or pasta. Eat the skins of raw fruits and vegetables. Add dried fruit to yogurt, cereal, rice, and muffins. Try brown rice and whole grain pastas. Choose crackers with a whole grain listed as the first ingredient. Look for whole grain rye and wheat crackers. How to read a food label Food labels are standardized by the [place] government's National Labeling and Education Act (NLEA). Nutrition labels and an ingredient list are required on most foods, so that you can make the best selection for a healthy lifestyle. Review the food label. Determine the total amount of fiber in this product or ask your dietitian or health care provider to show you how to read food labels and apply the information to your personal needs. In order for a product to be labeled high fiber, it must contain 5 grams or more of dietary fiber per serving. Fiber supplements Fiber supplements may be an option if you are not able to get enough fiber from your diet. Fiber supplements can be used to normalize both constipation and diarrhea. Check with your doctor before starting any kind of supplement. Read labels for fiber carefully. Drink at least 8 ounces of liquids with your supplement. Taking some fiber supplements without adequate liquids may cause the fiber to swell and may cause choking. Some fiber supplements to consider are Benefiber (hydrolyzed guar gum-soluble fiber), Metamucil (psyllium), Konsyl (psyllium), Citrucel (methylcellulose), Fibercon (calcium polycarbophil), and Fiberall (multiple sources of fiber). Psyllium husk and guar gum are soluble fibers. Consider keeping a food journal and tracking how much fiber you eat in a typical day. Use the fiber content chart in this handout as a guide to meeting your high fiber goal or check with www.NAL.usda.gov/fnic for additional information on the dietary fiber content of food. Food Category Food Serving Size Total Fiber (grams) Soluble Fiber (grams) Starches, Grains, Starchy vegetables Breads: Bagel-whole wheat Light white/wheat Milagros-Whole wheat Pumpernickel Whole wheat [place] 3 1/2 inches 2 slices 7 inches slice slice slice 3 1 4 3 2 2 1 trace 1 1 trace 1 Cereals: Bran Flakes Cheerios Oatmeal Fiber One All Bran Kashi Heart to Heart 3/4 cup 1 1/4 cup 1 cup cooked 1/2 cup 2/3 cup 3/4 cup 5 4 4 14 13 5 trace 1 2 1 1 1 Grains: Barley Brown rice Pasta-whole wheat 1/2 cup cooked 1/2 cup 1/2 cup cooked 4 2 3 1 trace 1 Legumes and starchy vegetables: Garbanzo beans Kidney beans Lentils Potato (with skin) Potatoes, sweet Squash (winter) Green peas, cooked Disla beans [place], cooked 1/2 cup 1/2 cup 1/2 cup 1 medium 1/2 cup 1/2 cup 1/2 cup 1/2 cup 1/2 cup 4 6 5 3 4 3 4 7 2 1 3 1 1 2 2 1 3 trace Nuts and Seeds Almonds Peanuts [place] seeds Walnuts 1/4 cup 1/4 cup 1/4 cup 1/4 cup 3 3 3 2 1 1 1 trace Fruits Apple with skin Banana Blueberries Grapefruit Rawlins Pear with skin Prunes Strawberries 1 medium 1 medium 1 cup 1/2 cup 1 medium 1 medium 3 1 cup 3 2 2 1 3 4 2 4 1 1 trace 1 2 2 1 1 Vegetables, non-starchy Broccoli [place] sprouts Cabbage-green Carrot Cauliflower Green beans Kale Spinach Squash (zucchini) 1/2 cup 1/2 cup 1 cup, fresh 1/2 cup cooked 1/2 cup cooked 1/2 cup 1/2 cup 1/2 cup 1/2 cup 3 4 2 2 1 2 3 2 1 1 2 1 1 trace 1 1 1 1 documented in this encounterOhio[facility]07-26-2022 History of Present illness Narrative* Ada Martinez APRN.CNP - 01/04/2022 9:30 AM EDT CHIEF COMPLAINT: Patient presents with: Change In Bowel Habits Constipation: Align probiodic having a BM every 2 days Diarrhea: happens once or twice weekly This consult was requested by Roberto Carlos Mullen MD for an opinion regarding change in bowel. My final recommendations will be communicated to the requesting health care provider by way of the shared medical record for internal providers or letter via the [employer] for external providers. Alem Sheehan is a 71 year old male with a past medical history gastritis, esophagitis, fatty liver, umbilical hernia, rhinitis, bursitis, CAD, anxiety, hyperlipidemia, RLS, DM-2, HTN, aortic valvereplacement (2014)sleep apnea. Who presents for change in bowel. Colonoscopy 03/31/2016: Diverticulosis in the sigmoid colon. No specimens collected. Recommendationrepeat colonoscopy in 10 years for screening purposes Colonoscopy 02/02/2005 EGD 04/23/2009: Small erosions found in the stomach and in the fundus, small hiatal hernia otherwise normal HPI: Dayan present today. For the last 6 months from alternating bowels from constipation to loose stools. Having a bowel movement every 2 days. Reports with certain foods will have loose stools. From what he noticed coffee, whip cream will cause loose stools. He reports in the past he was lactose intolerant. Discussed withpatient to go diary free to see if there improvement in symptoms.Denies black stool or blood in stool. Denies unintentional weight loss. Patient also reports eating a lot of NUTS and fruits with seeds. He eats crunchy peanut butter every night before bed and snacks on nuts during the day. Discussed with and patient high fiber diet. Record Review: [facility] / Outside records reviewed. 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 Diaphragmatic hernia without mention of obstruction or gangrene Esophagitis, unspecified Fatty liver Generalized anxiety disorder Anxiety, Generalized Heartburn 02/27/2017 History of aortic valve replacement 06/12/2014 Other and unspecified hyperlipidemia PMH - PAST MEDICAL HISTORY OF nodules in left lung Profound impairment, one eye, impairment level not further specified left Restless legs syndrome (RLS) Type II or unspecified type diabetes mellitus without mention of complication, not stated as uncontrolled 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ty 02/17/2017 Added automatically from request for surgery [id number] Umbilical hernia 2019 Unspecified asthma(493.90) Unspecified essential hypertension Unspecified sleep apnea PAST SURGICAL HISTORY Procedure Laterality Date ARTHRP KNE CONDYLE&PLATU MEDIAL&LAT COMPARTMENTS Left 12/25/2019 ASCENDING AORTA GRAFT W/BYPASS W/CORON REC 2014 COLONOSCOPY FLX DX W/COLLJ SPEC WHEN PFRMD 02/02/2005 Colonoscopy-repeat in COLONOSCOPY FLX DX W/COLLJ SPEC WHEN PFRMD 04/04/2016 DIAGNOSTIC ARTHROSCOPY SHOULDER +- SYNOVIAL BX Right 01/17/2014 EGD TRANSORAL BIOPSY SINGLE/MULTIPLE 04/23/2009 EYE SURGERY HX Left Eye removed from trauma I&D ABSC SMPL OR SGL Right 07/23/2008 Groin KNEE ARTHROSCOPY Right 05/23/2014 NEUROPLASTY &/TRANSPOSITION ULNAR NERVE ELBOW Right 03/01/2017 RECONSTRUCTION ROTATOR CUFF AVULSION CHRONIC Right 01/17/2014 RPR UMBILICAL HRNA 5 YRS/> REDUCIBLE 04/08/2020 VALVULOPLASTY - AORTIC VALVE 2015 WRIST SURGERY HX Left Mass removal Allergies: ALLERGIES Allergen Reactions Seasonal Allergies Other: See Comments SOB due to tree pollen, dog dander, weeds, cow dander,molds, pine pollen. Erythromycin Diarrhea Hctz [Amiloride-Hyd* Other: See Comments Hypercalcemia Oxycodone GI Upset Tramadol GI Upset Medications: losartan (COZAAR) 100 mg tablet Take 1 tablet by mouth once daily. atorvastatin (LIPITOR) 40 mg tablet Take 1 tablet by mouth daily at bedtime. For cholesterol. metFORMIN (GLUCOPHAGE) 1,000 mg tablet Take 1 tablet by mouth twice daily with meals. amLODIPine (NORVASC) 10 mg tablet Take 1 tablet by mouth once daily. magnesium oxide (MAG-OX) 400 mg (241.3 mg magnesium) tablet Take 1 tablet by mouth once daily. buPROPion XL (WELLBUTRIN XL) 150 mg 24 hr tablet Take 1 tablet by mouth once daily. carvedilol (COREG) 6.25 mg tablet Take 1 tablet by mouth twice daily. dulaglutide (TRULICITY) 1.5 mg/0.5 mL pen injector Inject 1.5 mg subcutaneously one time a week. Inject once per week. Discard Pen After aspirin, enteric coated (ASPIRIN, ENTERIC COATED) 81 mg EC tablet Take 2 tablets by mouth once daily. albuterol (PROVENTIL) 2.5 mg /3 mL (0.083 %) nebulizer solution Use 2.5 mg via nebulizer. albuterol HFA (VENTOLIN HFA) 90 mcg/actuation inhaler Inhale 2 Puffs as instructed every 4 hours asneeded for wheezing/shortness of breath. ondansetron (ZOFRAN) 4 mg tablet Take 1 tablet by mouth every 8 hours as needed. pramipexole (MIRAPEX) 0.25 mg tablet Take 1 tablet by mouth once daily. fluticasone (FLONASE) 50 mcg/actuation nasal spray Use 2 Sprays in each nostril once daily. fluticasone/vilanterol (BREO ELLIPTA INHALATION) Inhale 1 Puff as instructed once daily. Cholecalciferol, Vitamin D3, 1,000 unit cap Take 1 capsule by mouth once daily. therapeutic multivitamin (THERA VITAMIN) tablet Take 1 tablet by mouth daily with breakfast. blood sugar diagnostic (ONETOUCH VERIO TEST STRIPS) test strip Test blood sugar(s) 2 times daily. Dx: E11.9 Cholecalciferol, Vitamin D3, 25 mcg (1,000 unit) cap Take 1 capsule by mouth once daily. lancets (ONE TOUCH DELICA) 33 gauge misc Test blood sugar(s) 2 daily. Blood-Glucose Meter (ONETOUCH VERIO SYSTEM) misc Dispense One Kit - Verio Meter Kit. Test blood sugar twice daily. Dx: E11.9. Insulin-no. CPAP As directed FAMILY HISTORY Problem Relation Age of Onset Asthma Mother Stroke Father blood clot other (Pulmonary embolism) Father Arthritis Sister Lupus DVT Brother Diabetes Brother Hypertension Brother Stroke Maternal Grandmother Heart Maternal Grandmother Heart Maternal Grandfather Heart Paternal Grandmother Stroke Paternal Grandmother Arthritis Daughter Sgrogren's Breast Cancer Maternal Aunt Cancer Maternal Aunt glioblastoma Employer And Job Title: [employer] ([employer]) Years Of Education Completed: Not specified Marital Status: to Raquel with 3 children Social History Tobacco Use Smoking status: Never Smoker Smokeless tobacco: Never Used Vaping Use Vaping Use: Never used Substance Use Topics Alcohol use: No Drug use: No Review of Systems: Review of Systems Gastrointestinal: Positive for abdominal distention, constipation and diarrhea. All other systems reviewed and are negative. Are you taking any blood thinners? No Physical Examination: BP 138/82 Pulse 60 Ht 6' .835 (1.85m) Wt 238 lb (108.0kg) SpO2 97% BMI 31.54 kg/(m^2). Physical Exam Constitutional: Appearance: Normal appearance. He is normal weight. HENT: Head: Normocephalic and atraumatic. Eyes: Extraocular Movements: Extraocular movements intact. Pupils: Pupils are equal, round, and reactive to light. Cardiovascular: Rate and Rhythm: Normal rate and regular rhythm. Pulses: Normal pulses. Heart sounds: Normal heart sounds. Pulmonary: Effort: Pulmonary effort is normal. Breath sounds: Normal breath sounds. Abdominal: General: Abdomen is flat. Bowel sounds are normal. Palpations: Abdomen is soft. Musculoskeletal: General: Normal range of motion. Cervical back: Normal range of motion and neck supple. Skin: General: Skin is warm and dry. Neurological: General: No focal deficit present. Mental Status: He is alert and oriented to person, place, and time. Psychiatric: Mood and Affect: Mood normal. Behavior: Behavior normal. ASSESSMENT: Change in bowel function Diverticulosis (primary encounter diagnosis) PLAN: Assessment/Plan (K57.90) Diverticulosis (primary encounter diagnosis) (R19.8) Change in bowel function 1. Change in bowel function - take out diary products to see if a improvement in symptoms - high fiber diet -provided patient and education on diverticular disease - CONSULT TO GASTROENTEROLOGY 2. Diverticulosis - - Start OTC probiotic with at least 15 billion live cultures, 10+ strains - Drink around 64 oz water daily - Benefiber daily: 2 teaspoons added to 8 ounces of water up to 3 times daily. - Follow up in office 3 months/PRN. Recommended to please call office/go to ER if fever, chills, chest pain, SOB, diarrhea, nausea, emesis, worsening abdominal pain, dehydration occurs I spent a total of 30 minutes on the date of the service which included preparing to see the patient, [id number] patient care, completing clinical documentation, obtaining and/or reviewing separately obtained history, performing a medically appropriate examination, counseling and educating the pat ient/family/caregiver, ordering medications, tests, or procedures, communicating with other HCPs (not separately reported), independently interpreting results (not separately reported), communicatingresults to the patient/family/caregiver, and care coordination (not separately reported). Ada Martinez APRN.CNP DATE: 01/04/22 TIME: 8:18 AM documented in this encounterOhio[facility] Miscellaneous Notes* Telephone Encounter - Wenceslao Carter RN - 12/24/2021 9:27 AM EDT Call to pt and notified of results below. Pt verbalized understanding. * Telephone Encounter - Wenceslao Carter RN - 12/24/2021 9:25 AM EDT ----- Message from Margo Selby APRN.CNP sent at 12/24/2021 9:17 AM EDT ----- Please call patient and notify him. BNP does not indicate heart failure. CBC is stable. Thank you! documented in this encounterOhio[facility]07-12-2022 History of Present illness Narrative* Margo Selby APRN.CNP - 12/21/2021 7:24 AM EDT Reviewed most recent lab results from [facility]. HGB stable/WNL 12/01/2021. Patient complained of increased fatigue over past 2 weeks yesterday in office. Recommend repeating CBC for further evaluation of recent fatigue. Order placed for patient to have drawn at his convenience. Thank you! Margo Selby APRN.CNP documented in this encounterOhio[facility]07-11-2022 Miscellaneous Notes* Telephone Encounter - Wenceslao Carter RN - 12/20/2021 1:47 PM EDT Call to [facility] to request lab results per Bella request. documented in this encounterOhio[facility]07-05-2022 Miscellaneous Notes* Telephone Encounter - Roberto Carlos Mullen MD - 12/14/2021 4:31 PM EDT Noted. Thank you * Telephone Encounter - Tawny Galarza LPN - 12/14/2021 4:20 PM EDT Pt called to let pcp know that he will be having kidney stone removal surgery tomorrow. Pt reports he went to the ER on 12/11 for pain and testing showed multiple kidney stones. Tawny Galarza LPN documented in this encounterOhio[facility]06-20-2022 Miscellaneous Notes* Telephone Encounter - Tera Nava LPN - 11/29/2021 6:11 PM EDT Patient phones requesting refills as follows: Pending Prescriptions Disp Refills LOSARTAN 100 MG TABLET 30 tablet 5 Sig: Take 1 tablet by mouth once daily. GORDON: No SILVINO 10/18/21 NOV 04/21/22 Please review and advise. Tera Nava LPN documented in this encounterOhiohealth [facility]06-10-2022 Instructions* Patient Instructions* Anthony Knight MD - 11/19/2021 10:47 AM EDT - Stop the calcium pills - Try to get 800-1000 mg of calcium per day from diet without using calcium pills - Continue vitamin D 1000 units. - Do bone density scan. Please call [phone] to schedule Here is the estimated calcium content of a variety of foods: Produce Serving Size Estimated Calcium* Latia greens, frozen 8 oz 360 mg Broccoli kalia 8 oz 200 mg Kale, frozen 8 oz 180 mg Soy Beans, green, boiled 8 oz 175 mg Bok [place], cooked, boiled 8 oz 160 mg Figs, dried 2 figs 65 mg Broccoli, fresh, cooked 8 oz 60 mg Oranges 1 whole 55 mg Seafood Serving Size Estimated Calcium* Sardines, canned with bones 3 oz 325 mg Baker, canned with bones 3 oz 180 mg Shrimp, canned 3 oz 125 mg Dairy Serving Size Estimated Calcium* Ricotta, part-skim 4 oz 335 mg Yogurt, plain, low-fat 6 oz 310 mg Milk, skim, low-fat, whole 8 oz 300 mg Yogurt with fruit, low-fat 6 oz 260 mg Mozzarella, part-skim 1 oz 210 mg Cheddar 1 oz 205 mg Yogurt, Gambian 6 oz 200 mg Zimbabwean Cheese 1 oz 195 mg Feta Cheese 4 oz 140 mg Cottage Cheese, 2% 4 oz 105 mg Frozen yogurt, vanilla 8 oz 105 mg Ice Cream, vanilla 8 oz 85 mg Parmesan 1 tbsp 55 mg Fortified Food Serving Size Estimated Calcium* [place] milk, rice milk or soy milk, fortified 8 oz 300 mg Rawlins juice and other fruit juices, fortified 8 oz 300 mg Tofu, prepared with calcium 4 oz 205 mg Waffle, frozen, fortified 2 pieces 200 mg Oatmeal, fortified 1 packet 140 mg [place] muffin, fortified 1 muffin 100 mg Cereal, fortified 8 oz 100-1,000 mg Other Serving Size Estimated Calcium* Mac & cheese, frozen 1 package 325 mg Pizza, cheese, frozen 1 serving 115 mg Pudding, chocolate, prepared with 2% milk 4 oz 160 mg Beans, baked, canned 4 oz 160 mg Patient information: Collection of a 24-hour urine specimen The following instructions will guide you in the proper collection of a 24-hour urine specimen. In some instances, you will be asked to collect two or three consecutive 24-hour urine samples. INSTRUCTIONS You should collect every drop of urine during each 24-hour period. It does not matter how much or little urine is passed each time, as long as every drop is collected. Begin the urine collection in the morning after you wake up, after you have emptied your bladder for the first time. Urinate (empty the bladder) for the first time and flush it down the toilet. Note the exact time (e.g., 6:15 AM). You will begin the urine collection at this time. 1. Collect every drop of urine during the day and night in an empty collection bottle. Store the bottle at room temperature or in the refrigerator. 1. If you need to have a bowel movement, any urine passed with the bowel movement should be collected. Try not to include feces with the urine collection. If feces do get mixed in, do not try to remove the feces from the urine collection bottle. 4. Finish by collecting the first urine passed the next morning, adding it to the collection bottle. This should be within ten minutes before or after the time of the first morning void on the first day (which was flushed). In this example, you would try to void between 6:05 and 6:25 on the second day. If you need to urinate one hour before the final collection time, drink a full glass of water so that you can void again at the appropriate time. If you have to urinate 20 minutes before, try to holdthe urine until the proper time. Please note the exact time of the final collection, even if it is not the same time as when collection began on day one. STORAGE The bottle(s) may be kept at room temperature for a day or two, but should be kept cool or refrigerated for longer periods of time. documented in this encounterOhio[facility]06-10-2022 History of Present illness Narrative* Anthony Knight MD - 11/19/2021 10:00 AM EDT ENDOCRINOLOGY CLINIC NOTE Mr. Sheehan is a 71 year old male with CAD, GERD, T2DM, HTN, bicuspid aortic valve, asthma and sleep apnea was referred by Dr. Roberto Carlos Mullen for evaluation and management of hypercalcemia HPI Mr. Sheehan was noted to have a calcium level of 10.3 with GFR 54 in 2019. He has had intermittent mild hypercalcemia (midly elevated iCa) since then. Labs in 10/2021 showed total calcium 10.7 (no concomitant albumin), iCa 1.31 (corrected 1.27), GFR 77 vitamin D47.6, PTH 33. His PTHrP was undetectable and his SPEP was without M protein in 03/2020 Mr. Sheehan reported back and shoulder pains, but no polyuria, polydipsia, muscle aches. He has diarrhea alternating with constipation at times. He has a history of kidney stone 10 years ago, but no history of fractures. There is no family history of calcium related problems. 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 Diaphragmatic hernia without mention of obstruction or gangrene Esophagitis, unspecified Fatty liver Generalized anxiety disorder Anxiety, Generalized Heartburn 02/27/2017 History of aortic valve replacement 06/12/2014 Other and unspecified hyperlipidemia PMH - PAST MEDICAL HISTORY OF nodules in left lung Profound impairment, one eye, impairment level not further specified left Restless legs syndrome (RLS) Type II or unspecified type diabetes mellitus without mention of complication, not stated as uncontrolled 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ty 02/17/2017 Added automatically from request for surgery [id number] Umbilical hernia 2019 Unspecified asthma(493.90) Unspecified essential hypertension Unspecified sleep apnea PAST SURGICAL HISTORY Procedure Laterality Date ARTHRP KNE CONDYLE&PLATU MEDIAL&LAT COMPARTMENTS Left 12/25/2019 ASCENDING AORTA GRAFT W/BYPASS W/CORON REC 2014 COLONOSCOPY FLX DX W/COLLJ SPEC WHEN PFRMD 02/02/2005 Colonoscopy-repeat in COLONOSCOPY FLX DX W/COLLJ SPEC WHEN PFRMD 04/04/2016 DIAGNOSTIC ARTHROSCOPY SHOULDER +- SYNOVIAL BX Right 01/17/2014 EGD TRANSORAL BIOPSY SINGLE/MULTIPLE 04/23/2009 EYE SURGERY HX Left Eye removed from trauma I&D ABSC SMPL OR SGL Right 07/23/2008 Groin KNEE ARTHROSCOPY Right 05/23/2014 NEUROPLASTY &/TRANSPOSITION ULNAR NERVE ELBOW Right 03/01/2017 RECONSTRUCTION ROTATOR CUFF AVULSION CHRONIC Right 01/17/2014 RPR UMBILICAL HRNA 5 YRS/> REDUCIBLE 04/08/2020 VALVULOPLASTY - AORTIC VALVE 2015 WRIST SURGERY HX Left Mass removal FAMILY HISTORY Problem Relation Age of Onset Asthma Mother Stroke Father blood clot other (Pulmonary embolism) Father Arthritis Sister Lupus DVT Brother Diabetes Brother Hypertension Brother Stroke Maternal Grandmother Heart Maternal Grandmother Heart Maternal Grandfather Heart Paternal Grandmother Stroke Paternal Grandmother Arthritis Daughter Sgrogren's Breast Cancer Maternal Aunt Cancer Maternal Aunt glioblastoma Social History Tobacco Use Smoking status: Never Smoker Smokeless tobacco: Never Used Vaping Use Vaping Use: Never used Substance Use Topics Alcohol use: No Drug use: No (Not in a hospital admission) Allergies As of Date: 11/19/2021 Allergen Noted Reaction SEASONAL ALLERGIES 12/03/2013 Other: See Comments ERYTHROMYCIN 12/25/2006 Diarrhea HCTZ [AMILORIDE-HYDROCHLOROTHIAZI*09/16/2020 Other: See Comments Fully Assessed 10/18/2021 Current Outpatient Medications Medication Sig Dispense Refill blood sugar diagnostic (ONETOUCH VERIO TEST STRIPS) test strip Test blood sugar(s) 2 times daily. Dx: E11.9 200 Strip 3 atorvastatin (LIPITOR) 40 mg tablet Take 1 tablet by mouth daily at bedtime. For cholesterol. 90 tablet 1 metFORMIN (GLUCOPHAGE) 1,000 mg tablet Take 1 tablet by mouth twice daily with meals. 180 tablet 1 amLODIPine (NORVASC) 10 mg tablet Take 1 tablet by mouth once daily. 90 tablet 3 magnesium oxide (MAG-OX) 400 mg (241.3 mg magnesium) tablet Take 1 tablet by mouth once daily. 90 tablet 3 buPROPion XL (WELLBUTRIN XL) 150 mg 24 hr tablet Take 1 tablet by mouth once daily. 30 tablet 3 carvedilol (COREG) 6.25 mg tablet Take 1 tablet by mouth twice daily. 180 tablet 3 dulaglutide (TRULICITY) 1.5 mg/0.5 mL pen injector Inject 1.5 mg subcutaneously one time a week. Inject once per week. Discard Pen After 2 mL 11 Cholecalciferol, Vitamin D3, 25 mcg (1,000 unit) cap Take 1 capsule by mouth once daily. aspirin, enteric coated (ASPIRIN, ENTERIC COATED) 81 mg EC tablet Take 2 tablets by mouth once daily. losartan (COZAAR) 100 mg tablet Take 1 tablet by mouth once daily. 30 tablet 5 albuterol (PROVENTIL) 2.5 mg /3 mL (0.083 %) nebulizer solution Use 2.5 mg via nebulizer. albuterol HFA (VENTOLIN HFA) 90 mcg/actuation inhaler Inhale 2 Puffs as instructed every 4 hours asneeded for wheezing/shortness of breath. 18 g 11 ondansetron (ZOFRAN) 4 mg tablet Take 1 tablet by mouth every 8 hours as needed. 10 tablet 0 pramipexole (MIRAPEX) 0.25 mg tablet Take 1 tablet by mouth once daily. 90 tablet 3 fluticasone (FLONASE) 50 mcg/actuation nasal spray Use 2 Sprays in each nostril once daily. 3 Bottle 3 fluticasone/vilanterol (BREO ELLIPTA INHALATION) Inhale 1 Puff as instructed once daily. Cholecalciferol, Vitamin D3, 1,000 unit cap Take 1 capsule by mouth once daily. 0 lancets (ONE TOUCH DELICA) 33 gauge misc Test blood sugar(s) 2 daily. 200 Each 3 Blood-Glucose Meter ([employer] VERIO SYSTEM) [facility] Dispense One Kit - Verio Meter Kit. Test blood sugar twice daily. Dx: E11.9. Insulin-no. 1 Each 0 fsmtrjz-nlzqeryxk-rwszrzg D3 (OS-RENATA 500+D) 500 mg(1,250mg) -200 unit per tablet Take 1 tablet by mouth twice daily with meals. 0 therapeutic multivitamin (THERA VITAMIN) tablet Take 1 tablet by mouth daily with breakfast. 0 CPAP As directed 0 0 No current facility-administered medications for this visit. COMPLETE REVIEW OF SYSTEMS: Answers for HPI/ROS submitted by the patient on 11/16/2021 Fatigue: Yes Night Sweats: No Recent Unintentional Weight Change: No Skin Color Changes: No Post-Nasal Drip: Yes Thyroid Pain (lower neck): No Trouble Swallowing: No Vision Disturbance: No Chest Pain: No Leg Swelling: Yes Blood Clots?: Yes Leg Pain while walking?: No Difficulty Breathing?: No Heartburn: No Nausea: No Vomiting?: No Diarrhea: Yes Constipation: Yes Abdominal Pain: No Bone Pain?: No Muscle Aches: No Muscle Weakness: No Joint Pain or Stiffness: No Headaches: No Dizziness: Yes Numbness?: No Urgency to Urinate?: No Increased Urination?: No Slow or Small Urine Stream?: No Flushing?: No Hot Flashes?: No Increased Thirst: No Change in Body Hair?: No Cold Intolerance: No Heat Intolerance?: No PHYSICAL EXAM: 11/19/21 1015 BP: 123/69 Pulse: 67 Resp: 16 SpO2: 97% Weight: 109.3 kg (241 lb) Height: 182.9 cm (6') General: NAD, alert and cooperative, no facial plethora HEENT: EOMI, no proptosis/stare. Neck: supple with full ROM. No thyromegaly or palpable nodules Cardiovascular: RRR, +S1 and S2, systolic murmur on the left parasternal area Lungs: Clear to auscultation bilaterally Abdomen: soft, non-tender, non-distended Extremities: No LE oedema Neuro: Deep tendon reflexes are normal with a normal relaxation phase. Psych: Normal affect MSK: No back tenderness Labs: 06/22/2021 07:40 10/18/2021 15:22 10/28/2021 09:39 Calcium 9.7 10.7 (H) Ionized Calcium 1.31 (H) Normalized CAlcium 1.27 eGFR 77 eGFR-All Other Races >60 Vitamin D 25 Hydroxy 47.6 PTH, Intact 33 03/31/2020 13:52 PTH Related Peptide <2.0 Assessment and Recommendations: Mr. Sheehan is a pleasant 71-year-old man presented with his for evaluation and management of hypercalcemia. He has had mild hypercalcemia since 2019, with intermittently low GFR and PTH in the lower half of normal. This is therefore most likely PTH dependent hypercalcemia, likely representingprimary hyperparathyroidism. FHH is less likely given the age of onset and the lack of family history. He has been taking calcium pills for several years. Calcium pills may increase the risk of kidney stones in the setting of hyperparathyroidism. I asked him to stop the calcium pills, and to target 800-1000 mg of calcium intake per day from diet, and information was discussed and was provided in theafter visit summary. We will continue with vitamin D 1000 units daily In about 1 months, I will check his CMP, ionized calcium, PTH, P, vitamin D and do a 24-hour urine collection for calcium. We will also do a bone density scan including the forearm. We discussed the management options of primary hyperparathyroidism. These include observation with periodic monitoring, medical therapy and surgery. We discussed the indications for surgery which in his case include the intermittently low GFR. We will discuss the management again after the work-up a lorena. T2DM: This is under care of Dr. Mullen and is under excellent control. His A1c today is 6% and will continue with metformin and Trulicity. We will be happy to assist with the T2DM if needed in the future. Thyroid nodule: He is known to have a thyroid nodule. Thyroid ultrasound in 02/2021 showed a 0.9 cm solid hypoechoicright mid nodule that was stable compared to 2010. It seems that he underwent FNA was reportedly benign per patient. Given the stability over a 10-year period and the benign FNA, can hold off on further ultrasounds. Dr. Mullen is thanked for involving me in the care of this patient My final recommendations will be communicated back to the requesting physician by way of shared Medical record or letter to requesting physician via US mail. I spent 60 minutes in the visit, with more than 50% of the total mlcm-cm-emmc time of the visit in counseling / coordination of care. Anthony Knight MD documented in this encounterOhiohealth [facility]in [facility]06-06-2022 History of Present illness Narrative* Digna Sampson APRN.[employer] - 11/15/2021 11:30 AM EDT SUBJECTIVE: Alem Sheehan presents to [facility] Management Department for a follow up appointment post injection. Since the last visit, Alem Sheehan states the pain has been better. Current pain intensity is 1 on a scale of 0-10. Pain located in the left hip and lower back and does not radiate. States his right hip is starting to bother him. Pain described as aching - very faint The patient denies numbness and tingling. Symptoms interfere with standing. Pain is exacerbated by standing. Pain is mitigated by walking an uneven pathway. The patient is overall improved with the injections by 90%. The patient is not currently receiving medications through the [facility]. REVIEW OF SYSTEMS: Constitutional: (-) Weight Gain (-) Weight Loss (+) Fatigue Cardiovascular: (+) hx heart surgery (-) Pacemaker Respiratory: (-) Shortness of Breath (-) Cough (-) Snoring Gastrointestinal: (-) Incontinence (+) Diarrhea (+) Constipation (-) Nausea/Vomiting Endocrine: (-) Thyroid Disorder (+) Diabetes Hematologic: (-) Prolonged Bleeding (+) Easy Bruising Genitourinary: (-) Incontinence (-) Frequency (-) Urinary Urgency Skin: (-) Open sores/wound Neurologic: (-) Headache (-) Double Vision Psychiatric: (-) Depression (-) Anxiety (-) Personal History of Alcohol or Substance Abuse (-) Family History of Alcohol or Substance Abuse CHIEF COMPLAINT:Patient presents with: Pain Injection Followup OBJECTIVE: Pulse 71 SpO2 95% PHYSICAL EXAMINATION: General appearance: Well appearing, in no acute distress, alert and oriented x3 Skin: Skin color, texture, turgor normal, no rashes or lesions Neck: No pain to palpation over the cervical paraspinous muscles. No pain with neck flexion, extension, or lateral flexion Cardiovascular: Regular, rate and rhythm Lungs: Normal respiratory rate and rhythm, Lungs clear to auscultation Back: Intact range of motion with pain reproduction. Spine: Reports Tenderness on palpation: Lumbar- left paraspinals Extremities: No deformities, edema, or skin discoloration. Good capillary refill. Musculoskeletal: + Joint pain Neuro: No loss of sensation is noted. Motor skills intact Station and Gait: antalgic gait Motor: Exhibits full strength in all four extremities. Trigger points: none. ASSESSMENT: Assessment : Patient presents for an injection follow-up Patient had a left L5-S1 transforaminal injection on 10-12-2021 and reports 80 to 90% relief Patient has a history of chronic low back pain that radiates down the left lower extremity. He reports that his right hip is acting up He reports walking increases his pain He has a history of a left knee replacement and may need his right knee replaced in the future Encounter Diagnosis ICD-10-CM 1. DDD (degenerative disc disease), lumbar M51.36 2. Spinal stenosis of lumbar region, unspecified whether neurogenic claudication present M48.061 3. Spondylolisthesis of lumbar region M43.16 4. Myalgia M79.10 5. Other chronic pain G89.29 PDMP website checked and validated. All prescriptions have been APPROPRIATELY filled. No suspiciousactivity was identified. 11/15/2021 by Digna Sampson APRN.DANAE Narcotic Agreement reviewed and signed?: N/A on November 15, 2021 The pain panel was N/A PLAN: Injection history was reviewed. Medication use and compliance were reviewed. 2. No medications selected for refill. 3. Interventional procedure options discussed. May repeat left L5-S1 transforaminal injection as needed 4. Encouraged regular home exercise program. 5) F/U in as needed I spent a total of 20 minutes on the date of the service which included preparing to see the patient, [id number] patient care, completing clinical documentation, performing a medically appropriate examination and ordering medications, tests, or procedures. The above plan and management options were discussed at length with patient. Patient is in agreement with the above and verbalized understanding. Digna Sampson APRN, DANAE November 15, 2021 documented in this encounterOhiohealth [facility]in [facility]06-01-2022 Miscellaneous Notes* Telephone Encounter - Shayna Puga RN - 11/10/2021 1:09 PM EDT [facility], reports they transferred patient's Rx's from [facility], and because of Medicare part D, unable to transfer test strips. Will need new Rx with Dx code. Pended. documented in this encounterOhio[facility]in [facility]05-21-2022 Miscellaneous Notes* Telephone Encounter - Wenceslao Mendoza - 10/30/2021 11:49 AM EDT Done. Thank you, Wenceslao Mendoza * Telephone Encounter - Macrina Simmons LPN - 10/29/2021 2:43 PM EDT Phone call placed patient advised (see prior provider encounter) Patient requested scheduling contact him after first week in November (leaving for vacation) sent to pool schedule. Patient verbalized understanding, agreed with plan of care. Macrina Simmons LPN * Telephone Encounter - Roberto Carlos Mullen MD - 10/29/2021 12:54 PM EDT Calcium is borderline high. Since persistent, recommend seeing endo documented in this encounterOhiohealth [facility]in [facility]05-10-2022 Miscellaneous Notes* Telephone Encounter - Tera Nava LPN - 10/19/2021 1:34 PM EDT TC to pt, notified of results/provider response. He verbalized understanding. Tera Nava LPN * Telephone Encounter - Roberto Carlos Mullen MD - 10/19/2021 12:08 PM EDT Kidney function is up however, can be lab error. Just repeat calcium related labs in one to two weeks documented in this encounterOhiohealth [facility]in [facility]05-09-2022 History of Present illness Narrative* Roberto Carlos Mullen MD - 10/18/2021 2:45 PM EDT Patient presents with: Follow Up HPI: Patient presents today for office visit for follow up. Was referred to GASTROENTEROLOGY for constipation. Still having issues with firm bm's that he states is a change. Reinforced needs to see them. No bloody or black stools. Sugars have been great. No chest pain or shortness of breath. No edema. Still using his cpap. Benefits from its use. Cardiology is still following him. Saw Dr. Beatty for his feet. Saw Dr. Aparicio today: PLAN: -No further treatment is needed. Continue aspirin daily. -Consider using low molecular heparin or apixaban for DVT prophylaxis after surgery in the future. (I recommend 6 - 8 weeks of apixaban after total knee replacement surgery) -Continue age-appropriate cancer screening and follow-up with PCP. Has been to Dr. Beyer for his chronic pain issues. MEDICATIONS: Current Outpatient Medications Medication Sig clotrimazole-betamethasone (LOTRISONE) cream Apply 1 application to affected area twice daily. TO AFFECTED AREA. atorvastatin (LIPITOR) 40 mg tablet Take 1 tablet by mouth daily at bedtime. For cholesterol. metFORMIN (GLUCOPHAGE) 1,000 mg tablet Take 1 tablet by mouth twice daily with meals. amLODIPine (NORVASC) 10 mg tablet Take 1 tablet by mouth once daily. magnesium oxide (MAG-OX) 400 mg (241.3 mg magnesium) tablet Take 1 tablet by mouth once daily. buPROPion XL (WELLBUTRIN XL) 150 mg 24 hr tablet Take 1 tablet by mouth once daily. carvedilol (COREG) 6.25 mg tablet Take 1 tablet by mouth twice daily. dulaglutide (TRULICITY) 1.5 mg/0.5 mL pen injector Inject 1.5 mg subcutaneously one time a week. Inject once per week. Discard Pen After benzonatate (TESSALON PERLE) 100 mg capsule Take 1-2 capsules tid prn, no more than 6 in 24 hours. guaiFENesin (MUCINEX) 600 mg 12 hr tablet Take 2 tablets by mouth twice daily. blood sugar diagnostic (ONETOUCH VERIO TEST STRIPS) test strip Test blood sugar(s) 2 times daily. Cholecalciferol, Vitamin D3, 25 mcg (1,000 unit) cap Take 1 capsule by mouth once daily. aspirin, enteric coated (ASPIRIN, ENTERIC COATED) 81 mg EC tablet Take 2 tablets by mouth once daily. losartan (COZAAR) 100 mg tablet Take 1 tablet by mouth once daily. albuterol (PROVENTIL) 2.5 mg /3 mL (0.083 %) nebulizer solution Use 2.5 mg via nebulizer. albuterol HFA (VENTOLIN HFA) 90 mcg/actuation inhaler Inhale 2 Puffs as instructed every 4 hours asneeded for wheezing/shortness of breath. ondansetron (ZOFRAN) 4 mg tablet Take 1 tablet by mouth every 8 hours as needed. pramipexole (MIRAPEX) 0.25 mg tablet Take 1 tablet by mouth once daily. fluticasone (FLONASE) 50 mcg/actuation nasal spray Use 2 Sprays in each nostril once daily. fluticasone/vilanterol (BREO ELLIPTA INHALATION) Inhale 1 Puff as instructed once daily. Cholecalciferol, Vitamin D3, 1,000 unit cap Take 1 capsule by mouth once daily. lancets (ONE TOUCH DELICA) 33 gauge misc Test blood sugar(s) 2 daily. Blood-Glucose Meter (ONETOUCH VERIO SYSTEM) [facility] Dispense One Kit - Verio Meter Kit. Test blood sugar twice daily. Dx: E11.9. Insulin-no. hzlicrv-bxeuwikvm-iyfjoyc D3 (OS-RENATA 500+D) 500 mg(1,250mg) -200 unit per tablet Take 1 tablet by mouth twice daily with meals. therapeutic multivitamin (THERA VITAMIN) tablet Take 1 tablet by mouth daily with breakfast. CPAP As directed No current facility-administered medications for this visit. ALLERGIES: ALLERGIES Allergen Reactions Seasonal Allergies Other: See Comments SOB due to tree pollen, dog dander, weeds, cow dander,molds, pine pollen. 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 Diaphragmatic hernia without mention of obstruction or gangrene Esophagitis, unspecified Fatty liver Generalized anxiety disorder Anxiety, Generalized Heartburn 02/27/2017 History of aortic valve replacement 06/12/2014 Other and unspecified hyperlipidemia PMH - PAST MEDICAL HISTORY OF nodules in left lung Profound impairment, one eye, impairment level not further specified left Restless legs syndrome (RLS) Type II or unspecified type diabetes mellitus without mention of complication, not stated as uncontrolled 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ty 02/17/2017 Added automatically from request for surgery [id number] Umbilical hernia 2019 Unspecified asthma(493.90) Unspecified essential hypertension Unspecified sleep apnea PAST SURGICAL HISTORY Procedure Laterality Date ARTHRP KNE CONDYLE&PLATU MEDIAL&LAT COMPARTMENTS Left 12/25/2019 ASCENDING AORTA GRAFT W/BYPASS W/CORON REC 2014 COLONOSCOPY FLX DX W/COLLJ SPEC WHEN PFRMD 02/02/2005 Colonoscopy-repeat in COLONOSCOPY FLX DX W/COLLJ SPEC WHEN PFRMD 04/04/2016 DIAGNOSTIC ARTHROSCOPY SHOULDER +- SYNOVIAL BX Right 01/17/2014 EGD TRANSORAL BIOPSY SINGLE/MULTIPLE 04/23/2009 EYE SURGERY HX Left Eye removed from trauma I&D ABSC SMPL OR SGL Right 07/23/2008 Groin KNEE ARTHROSCOPY Right 05/23/2014 NEUROPLASTY &/TRANSPOSITION ULNAR NERVE ELBOW Right 03/01/2017 RECONSTRUCTION ROTATOR CUFF AVULSION CHRONIC Right 01/17/2014 RPR UMBILICAL HRNA 5 YRS/> REDUCIBLE 04/08/2020 VALVULOPLASTY - AORTIC VALVE 2015 WRIST SURGERY HX Left Mass removal FAMILY HISTORY Problem Relation Age of Onset Asthma Mother Stroke Father blood clot other (Pulmonary embolism) Father Arthritis Sister Lupus DVT Brother Diabetes Brother Hypertension Brother Stroke Maternal Grandmother Heart Maternal Grandmother Heart Maternal Grandfather Heart Paternal Grandmother Stroke Paternal Grandmother Arthritis Daughter Sgrogren's Breast Cancer Maternal Aunt Cancer Maternal Aunt glioblastoma Social History Tobacco Use Smoking status: Never Smoker Smokeless tobacco: Never Used Vaping Use Vaping Use: Never used Substance Use Topics Alcohol use: No Drug use: No Reviewed current medications, allergies, past medical history, surgical history, family history andsocial history today. REVIEW OF SYSTEMS All other reviewed and negative other than HPI. HEALTH MAINTENANCE: Reviewed health maintenance issues today VITALS: BP 108/62 Pulse 76 Wt 107 kg (236 lb) BMI 31.62 kg/m Last 4 Encounter Wt Readings: Date: Wt: 10/18/2021 108 kg (238 lb) 10/18/2021 107 kg (236 lb) 08/15/2021 109 kg (240 lb 6.4 oz) 08/05/2021 111.1 kg (245 lb) PHYSICAL EXAMINATION: General appearance: Well appearing, alert, in no acute distress, well-hydrated, well nourished. Skin: Skin color, texture, turgor normal, no suspicious rashes or lesions Head: Normocephalic, no masses, lesions, tenderness or abnormalities Lungs: Lungs clear to auscultation. No wheezing, rhonchi, rales Heart: murmur. Normal s1 and s2 Abdomen: Normal abdominal exam, Abdomen soft, non-tender. Bowel sounds normal. No masses, organomegaly Extremities: No deformities, edema, skin discoloration, clubbing or cyanosis. Good capillary refill. Musculoskeletal: No joint swelling, deformity, or tenderness Peripheral pulses: Normal Neuro: Negative. ASSESSMENT/PLAN: 1. Coronary artery disease involving [place] heart without angina pectoris, unspecified vessel or lesion type - ICD9: 414.01, ICD10: I25.10 (primary diagnosis) -= follow with cardiology. 2. History of aortic valve replacement - ICD9: V43.3, ICD10: Z95.2 - as above. 3. Multiple subsegmental pulmonary emboli without acute cor pulmonale (HCC) - ICD9: 415.19, ICD10: I26.94 - continue asa a day. 4. Bilateral carotid artery stenosis - ICD9: 433.10, 433.30, ICD10: I65.23 - recheck in one to two years per vascular. 5. Mixed hyperlipidemia - ICD9: 272.2, ICD10: E78.2 - good control - Continue current medication. 6. Essential hypertension - ICD9: 401.9, ICD10: I10 - good control - Continue current medication(s) - Goal of BP <130/80 - BASIC METABOLIC PNL 7. Thoracic aortic aneurysm without rupture (HCC) - ICD9: 441.2, ICD10: I71.2 - per cardiology 8. SIVAKUMAR on CPAP - ICD9: 327.23, V46.8, ICD10: G47.33, Z99.89 - stable. 9. Controlled type 2 diabetes mellitus without complication, without long-term current use of insulin (HCC) - ICD9: 250.00, ICD10: E11.9 Controlled. - Continue current medications - HGB A1C Set up with gi as previously gilberto.becka Mullen RTO in [facility] and prn. documented in this encounterOhiohealth [facility]in [facility]05-09-2022 History and physical note * Marcial Aparicio MD - 10/18/2021 10:36 AM EDT Hematology and Medical Oncology PATIENT NAME: Alem Sheehan. CLINIC NO: [id number]. ATTENDING PHYSICIAN: Marcial Aparicio MD. DATE OF SERVICE:10/18/2021. DIAGNOSIS: History of provoked pulmonary embolism; an elevated factor VIII level Consultation requested by Dr. Mullen for an opinion regarding elevated factor VIII level. My final recommendations will be communicated back to the requesting physician by way of shared Medical record or letter to requesting physician via US mail. PERFORMANCE STATUS:100% HPI: Mr. Sheehan is a 71-year-old gentleman with history of hypertension and diabetes mellitus who presented with a pulmonary embolism on December 16, 2020 after a right total shoulder arthroplasty, open biceps tenodesis on November 20, 2020. He was not prophylaxed for thromboembolism after his surgery. He has a family history of pulmonary embolism, father of a pulmonary embolism. He was treated with6 months of apixaban and he is doing well at this time. He has no chest pain, cough, or shortness of breath. He has a history of sleep apnea on CPAP. He has history of pedal edema and fluid retentionfrom increased intake. He denies any calf swelling or tenderness today. Oxygen titration was 95% onroom air. Hypercoagulable panel after completing anticoagulation therapy in July showed no hypercoagulable state except for an elevated fibrinogen and factor VIII level consistent with acute phase reactant. He has no change in bowel habit no difficulty urination. Age-appropriate colorectal screening and prostate screening (colonoscopy March 2016: Diverticulosis in the sigmoid colon. PSA by 2020: 0.68ng/mL) MEDICATIONS: Current Outpatient Medications Medication Sig clotrimazole-betamethasone (LOTRISONE) cream Apply 1 application to affected area twice daily. TO AFFECTED AREA. atorvastatin (LIPITOR) 40 mg tablet Take 1 tablet by mouth daily at bedtime. For cholesterol. metFORMIN (GLUCOPHAGE) 1,000 mg tablet Take 1 tablet by mouth twice daily with meals. amLODIPine (NORVASC) 10 mg tablet Take 1 tablet by mouth once daily. magnesium oxide (MAG-OX) 400 mg (241.3 mg magnesium) tablet Take 1 tablet by mouth once daily. buPROPion XL (WELLBUTRIN XL) 150 mg 24 hr tablet Take 1 tablet by mouth once daily. carvedilol (COREG) 6.25 mg tablet Take 1 tablet by mouth twice daily. dulaglutide (TRULICITY) 1.5 mg/0.5 mL pen injector Inject 1.5 mg subcutaneously one time a week. Inject once per week. Discard Pen After benzonatate (TESSALON PERLE) 100 mg capsule Take 1-2 capsules tid prn, no more than 6 in 24 hours. guaiFENesin (MUCINEX) 600 mg 12 hr tablet Take 2 tablets by mouth twice daily. blood sugar diagnostic (New.netUCH VERIO TEST STRIPS) test strip Test blood sugar(s) 2 times daily. aspirin, enteric coated (ASPIRIN, ENTERIC COATED) 81 mg EC tablet Take 2 tablets by mouth once daily. losartan (COZAAR) 100 mg tablet Take 1 tablet by mouth once daily. albuterol (PROVENTIL) 2.5 mg /3 mL (0.083 %) nebulizer solution Use 2.5 mg via nebulizer. albuterol HFA (VENTOLIN HFA) 90 mcg/actuation inhaler Inhale 2 Puffs as instructed every 4 hours asneeded for wheezing/shortness of breath. ondansetron (ZOFRAN) 4 mg tablet Take 1 tablet by mouth every 8 hours as needed. pramipexole (MIRAPEX) 0.25 mg tablet Take 1 tablet by mouth once daily. fluticasone (FLONASE) 50 mcg/actuation nasal spray Use 2 Sprays in each nostril once daily. fluticasone/vilanterol (BREO ELLIPTA INHALATION) Inhale 1 Puff as instructed once daily. Cholecalciferol, Vitamin D3, 1,000 unit cap Take 1 capsule by mouth once daily. lancets (ONE TOUCH DELICA) 33 gauge misc Test blood sugar(s) 2 daily. Blood-Glucose Meter (ONETOUCH VERIO SYSTEM) [facility] Dispense One Kit - Verio Meter Kit. Test blood sugar twice daily. Dx: E11.9. Insulin-no. guyjeuw-qobanzqya-xnzwxsx D3 (OS-RENATA 500+D) 500 mg(1,250mg) -200 unit per tablet Take 1 tablet by mouth twice daily with meals. therapeutic multivitamin (THERA VITAMIN) tablet Take 1 tablet by mouth daily with breakfast. Cholecalciferol, Vitamin D3, 25 mcg (1,000 unit) cap Take 1 capsule by mouth once daily. CPAP As directed No current facility-administered medications for this visit. . ALLERGIES: ALLERGIES Allergen Reactions Seasonal Allergies Other: See Comments SOB due to tree pollen, dog dander, weeds, cow dander,molds, pine pollen. Erythromycin Diarrhea Hctz [Amiloride-Hyd* Other: See Comments Hypercalcemia . 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 Diaphragmatic hernia without mention of obstruction or gangrene Esophagitis, unspecified Fatty liver Generalized anxiety disorder Anxiety, Generalized Heartburn 02/27/2017 History of aortic valve replacement 06/12/2014 Other and unspecified hyperlipidemia PMH - PAST MEDICAL HISTORY OF nodules in left lung Profound impairment, one eye, impairment level not further specified left Restless legs syndrome (RLS) Type II or unspecified type diabetes mellitus without mention of complication, not stated as uncontrolled 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ty 02/17/2017 Added automatically from request for surgery [id number] Umbilical hernia 2019 Unspecified asthma(493.90) Unspecified essential hypertension Unspecified sleep apnea . PAST SURGICAL HISTORY: PAST SURGICAL HISTORY Procedure Laterality Date ARTHRP KNE CONDYLE&PLATU MEDIAL&LAT COMPARTMENTS Left 12/25/2019 ASCENDING AORTA GRAFT W/BYPASS W/CORON REC 2014 COLONOSCOPY FLX DX W/COLLJ SPEC WHEN PFRMD 02/02/2005 Colonoscopy-repeat in COLONOSCOPY FLX DX W/COLLJ SPEC WHEN PFRMD 04/04/2016 DIAGNOSTIC ARTHROSCOPY SHOULDER +- SYNOVIAL BX Right 01/17/2014 EGD TRANSORAL BIOPSY SINGLE/MULTIPLE 04/23/2009 EYE SURGERY HX Left Eye removed from trauma I&D ABSC SMPL OR SGL Right 07/23/2008 Groin KNEE ARTHROSCOPY Right 05/23/2014 NEUROPLASTY &/TRANSPOSITION ULNAR NERVE ELBOW Right 03/01/2017 RECONSTRUCTION ROTATOR CUFF AVULSION CHRONIC Right 01/17/2014 RPR UMBILICAL HRNA 5 YRS/> REDUCIBLE 04/08/2020 VALVULOPLASTY - AORTIC VALVE 2015 WRIST SURGERY HX Left Mass removal . FAMILY HISTORY: FAMILY HISTORY Problem Relation Age of Onset Asthma Mother Stroke Father blood clot other (Pulmonary embolism) Father Arthritis Sister Lupus DVT Brother Diabetes Brother Hypertension Brother Stroke Maternal Grandmother Heart Maternal Grandmother Heart Maternal Grandfather Heart Paternal Grandmother Stroke Paternal Grandmother Arthritis Daughter Sgrogren's Breast Cancer Maternal Aunt Cancer Maternal Aunt glioblastoma . SOCIAL HISTORY: Social History Tobacco Use Smoking status: Never Smoker Smokeless tobacco: Never Used Vaping Use Vaping Use: Never used Substance Use Topics Alcohol use: No Drug use: No . REVIEW OF SYSTEMS: CONSTITUTIONAL: No fevers, chills, nightsweats, unintended weight loss HEENT: Denies frequent or severe heaches, nasal congestion/sinus symptoms, problematic allergy problems. EYES: No diplopia or blurry vision. CARDIOVASCULAR: No chest pain, dyspnea, palpitations, orthopnea, PND, ankle edema. PULM: No dyspnea, unexplained cough. GI: No dysphagia/odynophagia, problematic reflux, constipation, diarrhea, changes in stool habits, hematochezia, melena. : No new urinary complaints, including dysuria, gross hematuria or pyuria. NEURO: No new balance problems, peripheral weakness/paresthesias or numbness of concern. MUSC-SKEL: No new joint pain, swelling, or erythema. PSY: No concerns regarding depression, anxiety or panic. INTEGUMENTARY: No new skin changes (rash, new or changing mole, new growth) PHYSICAL EXAMINATION: BP 131/75 Pulse 71 Temp 98.1 Ht 6' .441 (1.84m) Wt 238 lb (108.0kg) SpO2 95% BMI 31.89kg/(m^2). HEENT: Head is normocephalic, atraumatic. Sclerae white, conjunctivae pink. PEERL. EOMs are intact.Oropharynx is benign. LYMPHATICS: There is no palpable adenopathy in the neck, supraclavicular region, axillae, or groin. LUNGS: Lungs are clear to percussion and auscultation. HEART: Heart is normal with grade 2/6 systolic murmurs, no gallops, or rubs. ABDOMEN: Soft and nontender without organomegaly. No masses can be palpated. EXTREMITIES: Are without edema. NEUROLOGIC: Exam is physiologic LABORATORY DATA: Component Latest Ref Rng & Units 06/22/2021 WBC 3.70 - 11.00 k/uL 5.75 RBC 4.20 - 6.00 m/uL 5.03 Hemoglobin 13.0 - 17.0 g/dL 14.4 Hematocrit 39.0 - 51.0 % 44.8 MCV 80.0 - 100.0 fL 89.1 MCH 26.0 - 34.0 pG 28.6 MCHC 30.5 - 36.0 g/dL 32.1 RDW-CV 11.5 - 15.0 % 14.8 Platelet Count 150 - 400 k/uL 165 MPV 9.0 - 12.7 fL 10.3 Neut% % 64.2 Abs Neut (ANC) 1.45 - 7.50 k/uL 3.69 Lymph% % 21.0 Abs Lymph 1.00 - 4.00 k/uL 1.21 Leslie% % 8.0 Abs Leslie <0.87 k/uL 0.46 Eosin% % 5.9 Abs Eosin <0.46 k/uL 0.34 Baso% % 0.9 Abs Baso <0.11 k/uL 0.05 Nucleated Reds 0 /100 WBC 0.0 Absolute nRBC <0.01 k/uL <0.01 Diff Type Auto Diff Component Latest Ref Rng & Units 08/02/2021 10/06/2021 Factor VIII:C Assay 50 - 173 % 220 (H) 178 (H) Hypercoagulation Panel: 1. Elevated factor VIII and fibrinogen, suggestive of acute phase respone ASSESSMENT: 71-year-old gentleman with first episode, provoked pulmonary embolism after surgery. -Pulmonary embolism resolved after 6 months of apixaban. -Hypercoagulable panel showed no hereditary causes, except an elevated factor VIII level suggests acute phase reactant which improved since July. PLAN: -No further treatment is needed. Continue aspirin daily. -Consider using low molecular heparin or apixaban for DVT prophylaxis after surgery in the future. (I recommend 6 - 8 weeks of apixaban after total knee replacement surgery) -Continue age-appropriate cancer screening and follow-up with PCP. I spent 30 minutes in the visit, with more than 50% of the total [id number] time of the visit in counseling / coordination of care. Marcial Aparicio MD. ELECTRONICALLY SIGNED Cc: Viry Bales MD documented in this encounterOhio[facility]28-[facility]22 Miscellaneous Notes* Telephone Encounter - Charlee Her - 10/07/2021 2:25 PM EDT Spoke with patient and scheduled for 10/18/21 @ 10:10 AM. Charlee Her * Telephone Encounter - Virginia Coronado LPN - 10/07/2021 2:[address] Aparicio 10/18/2021 @ 10:10, block the hour. Virginia Coronado LPN * Telephone Encounter - Divya Pickens LPN - 10/07/2021 2:09 PM EDT Patient was notified of need to see hematology and will await phone call to set up. * Telephone Encounter - Charlee Her - 10/07/2021 1:59 PM EDT Please advise with which provider to schedule. Diagnoses are History of DVT (deep vein thrombosis) [Z86.718] Elevated factor VIII level [R79.1] Charlee Her * Telephone Encounter - Roberto Carlos Mullen MD - 10/07/2021 1:43 PM EDT His blood is still mildly abnormal. It is decreasing but to be on the safe side, lets have him see hematology documented in this encounterOhio[facility]04-27-2022 History of Present illness Narrative* Isael Beatty - 10/06/2021 10:18 AM EDT Last saw Dr. Mullen: 08/05/21 Subjective: Patient presents to clinic c/o painful toenails. They state that the nails are especially painful with shoe gear and pressure. Patient admits to being diabetic. Patient complains of rash to the outside of his right ankle. He has been apply aquaphor and that has helped. No other pedal complaints at this time. Patient states no change in medications or medical history since last visit. Objective: Patient presents to clinic ambulating in [place] Vasc: DP and PT pulses are absent bilateral. CFT is less than 5 seconds bilateral. Skin temperatureis warm to cool proximal to distal bilateral. There is mild edema or varicosities noted. Neuro: Protective sensation is absent to the foot and toes when tested with the 5.07 SWM bilateral.Vibratory sensation is absent at the hallux IPJ bilateral. The hallux is downgoing bilateral. Derm: Nails 1-5 are discolored-yellow, thick, crumbly, dystrophic and with subungal debris. Skin isthin, dry and hair growth is absent bilateral. There is small rash to lateral aspect of right foot.Small callus of left 5th metatarsal Ortho: Muscle strength is 5/5 for all pedal groups tested. Ankle joint DF is full with the knee extended with no pain or crepitus noted. 1st MPJ ROM is full bilateral. Assessment: (B35.1) Onychomycosis (primary encounter diagnosis) (M79.675) Pain in toe of left foot (M79.674) Pain in toe of right foot (E11.42) Diabetic polyneuropathy associated with type 2 diabetes mellitus (HCC) (I73.9) PAD (peripheral artery disease) ([facility]) (B35.3) Tinea pedis of right foot Plan: Patient was seen and evaluated. Nails 1-5 bilateral were debrided in length and thickness. Small rash to lateral aspect of right ankle. lotirisone ordered Callus reduced with dremmel. In order to perform a complete physical exam, limited shaving of callus area was performed. This incidental service is integral to the evaluation and management visit in order to appropriately manage and treat the patient (for their complaint or for this visit). Patient was instructed on the continued importance of diabetic foot care along with proper diet andkeeping their blood sugar under control to prevent complications. Patient is to RTC in 3-4 months. Isael Beatty DPM * Dena Sibley - 10/06/2021 10:07 AM EDT AMB ROOMING INTAKE FLOWSHEET DATA Risk Screening Do you have concerns about personal safety or safety in the home?: No C/O rash bilaterally and some burning recently on Top of right foot. documented in this encounterOhiohealth [facility]04-27-2022 Instructions* Patient Instructions* Isael Beatty - 10/06/2021 10:18 AM EDT Diabetes Foot Care Instructions When you have diabetes, proper foot care is very important. Poor foot care may lead to amputation of a foot or leg. As a person with diabetes, you are more vulnerable to foot problems, because diabetes can damage your nerves and reduce blood flow to your feet. Here are some diabetes foot care tips to follow: Wash and Dry Your Feet Daily Use mild soaps Use warm water Pat your skin dry; do not rub. Thoroughly dry your feet. After washing, use lotion on your feet to prevent cracking. Do not put lotion between your toes. Examine Your Feet Each Day Check the tops and bottoms of your feet. Have someone else look at your feet if you cannot see them. Check for dry, cracked skin. Look for blisters, cuts, scratches, or other sores. Check for redness, increased warmth, or tenderness when touching any area of your feet. Check for ingrown toenails, corns, and calluses. If you get a blister or sore from your shoes, do not pop it. Apply a bandage and wear a differentpair of shoes. Take Care of Your Toenails Cut toenails after bathing, when they are soft. Cut toenails straight across and smooth with a nail file. Avoid cutting into the corners of toes. Do not cut cuticles. If you have neuropathy (or decreased sensation in your feet) a anime artist should always cut your toenails. Be Careful When Exercising Walk and exercise in comfortable shoes. Do not exercise when you have open sores on your feet. Protect Your Feet With Shoes and Socks Never go barefoot. Always protect your feet by wearing shoes or hard-soled slippers or footwear. Avoid shoes with high heels and pointed toes. Avoid shoes that expose your toes or heels (such as open-toed shoes or sandals). These types of shoes increase your risk for injury and potential infections. Try on new footwear with the type of socks you usually wear. Do not wear new shoes for more than an hour at a time. Change your socks daily. Look and feel inside your shoes before putting them on to make sure there are no foreign objects orrough areas. Avoid tight socks. Wear natural-fiber socks (cotton, wool, or a cotton-wool blend). Wear special shoes if your health care provider recommends them. Wear shoes/boots that will protect your feet from various weather conditions (cold, moisture, etc.). Make sure your shoes fit properly. If you have neuropathy (nerve damage), you may not notice that your shoes are too tight. Perform the footwear test described below. Footwear Test Use this simple test to see if your shoes fit correctly: Stand on a piece of paper. (Make sure you are standing and not sitting, because your foot changes shape when you stand.) Trace the outline of your foot. Trace the outline of your shoe. Compare the tracings: Is the shoe too narrow? Is your foot crammed into the shoe? The shoe should be at least 1/2 inch longer than your longest toe and as wide as your foot. Proper Shoe Choices The following types of shoes are best for people with diabetes Closed toes and heels Leather uppers without a seam inside At least 1/2 inch extra space at the end of your longest toe Inside of shoe should be soft with no rough areas Outer sole should be made of stiff material Shoes should be at least as wide as your feet Tips for Foot Care in Diabetes Don't wait to treat a minor foot problem if you have diabetes. Follow your health care provider's guidelines and first aid guidelines. Report foot injuries and infections to your health care provider immediately. Check water temperature with your elbow, not your foot. Do not use a heating pad on your feet. Do not cross your legs. Do not self-treat your corns, calluses, or other foot problems. Go to your health care provider or anime artist to treat these conditions. documented in this [facility]04-08-2022 Miscellaneous Notes* Telephone Encounter - Tera Nava LPN - 09/17/2021 11:10 AM EDT Patient phones requesting refills as follows: Pending Prescriptions Disp Refills AMLODIPINE 10 MG TABLET 90 tablet 3 Sig: Take 1 tablet by mouth once daily. GORDON: No MAGNESIUM OXIDE 400 MG (241.3 MG MAGNESIUM) TABLET 90 tablet 3 Sig: Take 1 tablet by mouth once daily. GORDON: No BUPROPION XL 150 MG TAB 30 tablet 3 Sig: Take 1 tablet by mouth once daily. GORDON: No SILVINO 08/05/21 10/18/21 Please review and advise. Tera Nava LPN documented in this [facility]04-08-2022 Miscellaneous Notes* Telephone Encounter - Tera Nava LPN - 09/17/2021 11:09 AM EDT Patient phones requesting refills as follows: Pending Prescriptions Disp Refills ATORVASTATIN 40 MG TABLET 90 tablet 1 Sig: Take 1 tablet by mouth daily at bedtime. For cholesterol. GORDON: No METFORMIN 1,000 MG TABLET 180 tablet 1 Sig: Take 1 tablet by mouth twice daily with meals. GORDON: No SILVINO 08/05/21 10/18/21 Please review and advise. Tera Nava LPN documented in this [facility]04-01-2022 Miscellaneous Notes* Telephone Encounter - Margo Cool LPN - 09/10/2021 1:40 PM EDT Patient's request for medication is as follows: Pending Prescriptions Disp Refills CARVEDILOL 6.25 MG TABLET 180 tablet 3 Sig: Take 1 tablet by mouth twice daily. GORDON: No Last seen 06/14/2021 in [place]. Follow up scheduled for 12/20/2021. Prescription(s) as above. Please process accordingly. Margo Cool LPN documented in this encounterOhio[facility]06-28-2020 History of Past illness Narrative* Problem Noted Date Resolved Date Primary osteoarthritis of left knee 12/08/2019 11/13/2020 Bruit of left carotid artery 12/05/2019 Last Assessment & Plan: Assessment: pending Carotid US Chronic left shoulder pain 10/04/201709/16 Heartburn 02/27/2017 11/13/2020 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 02/17/2017 12/05/2019 Overview: Added automatically from request for surgery [id number] Acute pain of left knee 12/26/2016 11/14/19 Chronic right shoulder pain 12/26/2016 04/0 12/2020 Gross hematuria 11/24/2016 11/13/2020 Malignant neoplasm of kidney excluding renal pel vis 10/21/2016 02/27/2017 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, without long-term current use of insulin 09/30/2016 09/30/2016 Neuropathy 09/30/2016 11/13/2020 Last Assessment & Plan: Assessment: stable on rx Asthma with COPD with exacerbation 08/24/2016 02/27/2017 Counseling and coordination of care 12/15/2014 08/24/2016 SUMMARY 11/21/2014 08/24/2016 Overview: Indication for hospital admission/procedure: Aortic aneurysm LVEF: 65% LVH RVF: Normal Important/Relevant PMH/PSH: BAV, Congenital anomaly of aorta, SIVAKUMAR, Asthma, HTN, HPL, DM, anxiety Preoperative Hospital Course Procedure/Surgeries: 11/17/2014 Mini-BAV repair, Ascending aortic replacement Airway Difficulty: No OR Course: Coagulopathy/bleeding requiring correction with 20u cryo, 8u FFP, 4u plts, 3uprbcs and 2 pump runs for repair of aortic cannulation site Pacing wires: out Postoperative Course/General Impression: S/p AVr/Asc aorta replacement. Plan to wean o2, pep, oob, increase diuresis, cont BB, pain and glucose control. Issues to communicate at signout: CT removed CPAP at night echo done CTA done PT rec acute rehab Needs much encouragement wires out 11/23 d/c to acute rehab today Discharge planning 11/21/2014 05/03/2016 Overview: Pt from [place], [place]. PT rec acute rehab; CM working on placement. Leaving for [facility] in-pt rehab today Hypertension 11/20/2014 02/27/2017 Overview: History: pre op on monopril, norv, Assessment: normotensive currently Plan: Cont BB , cont lasix Atelectasis 11/18/2014 11/19/2014 Overview: Bilateral on CXR. A/P: PEP, EZPAP OOBTC. Volume overload 11/18/2014 08/24/2016 Overview: History: post op Assessment: wt up 5 kg from pre op Plan: cont diuresis On mechanically assisted ventilation 11/17/2014 11/19/2014 Overview: Grade 1 airway. WTE when awake and stable. Extubated on DOS. CPAP at night PEP. Cardiac insufficiency following cardiac surgery 11/17/2014 11/20/2014 Overview: Low CI. CVP low. A/p Epi gtt off. Start BB. Pre-op testing 11/14/2014 08/23/2016 Overview: Images from the original note were not included. [facility] Surgeon: Modesot Cifuentes M.D. Informed Consent Completed: Yes STS Score: unsupported CAD: No Is intended procedure a CABG: No - is a beta hue ordered? No - reason: not indicated H & P completed: Yes 10/28/14 PA/LAT: Completed CT: Completed MRI: N/A LE US: N/A Cath: Yes - reviewed: Yes Echo:Completed EKG: Completed EF %: 65 PI's: N/A Carotid: N/A Mapping: N/A Dental: Completed PFT's: N/A No results for input(s): WBC, HB, HCT, PLT, INR, CREAT in the last 72 hours. UA: Normal HCG:N/A ABO/ABO Confirmed: Yes Blood ordered: No SA Swab: Yes - results: Negative Last Dose of Anticoagulation: OTC 11/12/14 Op Note: N/A Pacemaker Check: N/A Consults: none DM: Yes, A1c: 6.6% Cardiac Surgical prep: N/A SIGNATURE: JERSON Tian CHECKED BY: [email or web address] DATE of SERVICE: 11/14/2014 TIME of SERVICE: 10:59 AM discharge planning 11/10/2014 11/12/2014 Overview: 64yo male without any concerns presently Preop testing 11/10/2014 11/12/2014 Overview: Images from the original note were not included. [facility] Surgeon: Modesto Cifuentes M.D. Informed Consent Completed: pending STS Score: unsupported CAD: Yes - CAD on Problem List: Yes Is intended procedure a CABG: No - is a beta hue ordered? No - reason: not indicated H & P completed: Yes PA/LAT: Completed CT: Completed MRI: N/A LE US: N/A Cath: Yes - reviewed: Yes Echo:Completed EKG: Completed EF %: 65 PI's: Completed Carotid: N/A Mapping: N/A Dental: Pending PFT's: Completed No results for input(s): WBC, HB, HCT, PLT, INR, CREAT in the last 72 hours. UA: Normal HCG:N/A ABO/ABO Confirmed: Yes Blood ordered: No SA Swab: Yes - results: Pending Last Dose of Anticoagulation: vit basa LD 11/03 Op Note: N/A Pacemaker Check: N/A Consults: none DM: No Cardiac Surgical prep: N/A SIGNATURE: Kate Smith RN CHECKED BY: DATE of SERVICE: 11/10/2014 TIME of SERVICE: 10:05 AM Right rotator cuff tear 12/31/2013 08/25/19 17 Pain in joint, shoulder region 12/16/2013 0 08/24/2016 Essential hypertension, benign 12/03/2013 0 11/19/2014 Overview: Home RX; Nortvasc, ACEi A/P: NTg gtt to keep MAPS 65-75. Wean off. Hydralazine prn. Start BB when off Epi. Pain in joint, lower leg 04/16/2013 017 Degenerative tear of medial meniscus 04/16/2013 11/13/2020 Anxiety 07/08/2011 11/13/2020 Overview: Home Rx; Prozac. A/p Restarted Prozac. Esophagitis, unspecified 04/23/2009 017 Acute gastritis without mention of hemorrhage 08/24/2016 Trochanteric bursitis 03/05/2009 11/12/2014 Nontoxic uninodular goiter 01/16/200902/24 Overview: 08/13/19 thyroid right mid-pole thyroid solid nodule 9 x 7 x 4 mm stable since 2016 Last Assessment & Plan: Assessment: under surveillance Nonallopathic lesion of sacr al region, not elsewhere classified 01/02/2009 11/13/2020 Osteoarthrosis, unspecified whether generalized or localized, unspecified site 11/12/2008 11/13/2020 ABSCESS GROIN 07/23/2008 08/23/2016 Obesity, unspecified 07/15/2008 09/16/2020 Pain in joint, pelvic region and thigh 9 08/24/2016 INTRINSIC ASTHMA UNSPECIFIED 09/03/2007 Other seborrheic keratosis 08/07/200708/23 Calcaneal spur 11/13/2020 Generalized anxiety disorder Overview: Anxiety, Generalized Unspecified asthma(493.90) 09/02 Asthma 08/24/2016 documented as of this encounter (statuses as of 09/10/2021) [facility] History of Past illness Narrative* Problem Noted Date Resolved Date Primary osteoarthritis of left knee 12/08/2019 11/13/2020 Bruit of left carotid artery 12/05/2019 Last Assessment & Plan: Assessment: pending Carotid US Chronic left shoulder pain 10/04/201709/16 Heartburn 02/27/2017 11/13/2020 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 02/17/2017 12/05/2019 Overview: Added automatically from request for surgery [id number] Acute pain of left knee 12/26/2016 11/14/19 Chronic right shoulder pain 12/26/2016 04/0 12/2020 Gross hematuria 11/24/2016 11/13/2020 Malignant neoplasm of kidney excluding renal pel vis 10/21/2016 02/27/2017 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, without long-term current use of insulin 09/30/2016 09/30/2016 Neuropathy 09/30/2016 11/13/2020 Last Assessment & Plan: Assessment: stable on rx Asthma with COPD with exacerbation 08/24/2016 02/27/2017 Counseling and coordination of care 12/15/2014 08/24/2016 SUMMARY 11/21/2014 08/24/2016 Overview: Indication for hospital admission/procedure: Aortic aneurysm LVEF: 65% LVH RVF: Normal Important/Relevant PMH/PSH: BAV, Congenital anomaly of aorta, SIVAKUMAR, Asthma, HTN, HPL, DM, anxiety Preoperative Hospital Course Procedure/Surgeries: 11/17/2014 Mini-BAV repair, Ascending aortic replacement Airway Difficulty: No OR Course: Coagulopathy/bleeding requiring correction with 20u cryo, 8u FFP, 4u plts, 3uprbcs and 2 pump runs for repair of aortic cannulation site Pacing wires: out Postoperative Course/General Impression: S/p AVr/Asc aorta replacement. Plan to wean o2, pep, oob, increase diuresis, cont BB, pain and glucose control. Issues to communicate at signout: CT removed CPAP at night echo done CTA done PT rec acute rehab Needs much encouragement wires out 11/23 d/c to acute rehab today Discharge planning 11/21/2014 05/03/2016 Overview: Pt from [place], [place]. PT rec acute rehab; CM working on placement. Leaving for [facility] in-pt rehab today Hypertension 11/20/2014 02/27/2017 Overview: History: pre op on monopril, norv, Assessment: normotensive currently Plan: Cont BB , cont lasix Atelectasis 11/18/2014 11/19/2014 Overview: Bilateral on CXR. A/P: PEP, EZPAP OOBTC. Volume overload 11/18/2014 08/24/2016 Overview: History: post op Assessment: wt up 5 kg from pre op Plan: cont diuresis On mechanically assisted ventilation 11/17/2014 11/19/2014 Overview: Grade 1 airway. WTE when awake and stable. Extubated on DOS. CPAP at night PEP. Cardiac insufficiency following cardiac surgery 11/17/2014 11/20/2014 Overview: Low CI. CVP low. A/p Epi gtt off. Start BB. Pre-op testing 11/14/2014 08/23/2016 Overview: Images from the original note were not included. [facility] Surgeon: Modesto Cifuentes M.D. Informed Consent Completed: Yes STS Score: unsupported CAD: No Is intended procedure a CABG: No - is a beta hue ordered? No - reason: not indicated H & P completed: Yes 10/28/14 PA/LAT: Completed CT: Completed MRI: N/A LE US: N/A Cath: Yes - reviewed: Yes Echo:Completed EKG: Completed EF %: 65 PI's: N/A Carotid: N/A Mapping: N/A Dental: Completed PFT's: N/A No results for input(s): WBC, HB, HCT, PLT, INR, CREAT in the last 72 hours. UA: Normal HCG:N/A ABO/ABO Confirmed: Yes Blood ordered: No SA Swab: Yes - results: Negative Last Dose of Anticoagulation: OTC 11/12/14 Op Note: N/A Pacemaker Check: N/A Consults: none DM: Yes, A1c: 6.6% Cardiac Surgical prep: N/A SIGNATURE: JERSON Tian CHECKED BY: [email or web address] DATE of SERVICE: 11/14/2014 TIME of SERVICE: 10:59 AM discharge planning 11/10/2014 11/12/2014 Overview: 64yo male without any concerns presently Preop testing 11/10/2014 11/12/2014 Overview: Images from the original note were not included. [facility] Surgeon: Modesto Cifuentes M.D. Informed Consent Completed: pending STS Score: unsupported CAD: Yes - CAD on Problem List: Yes Is intended procedure a CABG: No - is a beta hue ordered? No - reason: not indicated H & P completed: Yes PA/LAT: Completed CT: Completed MRI: N/A LE US: N/A Cath: Yes - reviewed: Yes Echo:Completed EKG: Completed EF %: 65 PI's: Completed Carotid: N/A Mapping: N/A Dental: Pending PFT's: Completed No results for input(s): WBC, HB, HCT, PLT, INR, CREAT in the last 72 hours. UA: Normal HCG:N/A ABO/ABO Confirmed: Yes Blood ordered: No SA Swab: Yes - results: Pending Last Dose of Anticoagulation: vit basa LD 11/03 Op Note: N/A Pacemaker Check: N/A Consults: none DM: No Cardiac Surgical prep: N/A SIGNATURE: Kate Smith RN CHECKED BY: DATE of SERVICE: 11/10/2014 TIME of SERVICE: 10:05 AM Right rotator cuff tear 12/31/2013 08/25/19 17 Pain in joint, shoulder region 12/16/2013 0 08/24/2016 Essential hypertension, benign 12/03/2013 0 11/19/2014 Overview: Home RX; Nortvasc, ACEi A/P: NTg gtt to keep MAPS 65-75. Wean off. Hydralazine prn. Start BB when off Epi. Pain in joint, lower leg 04/16/2013 017 Degenerative tear of medial meniscus 04/16/2013 11/13/2020 Anxiety 07/08/2011 11/13/2020 Overview: Home Rx; Prozac. A/p Restarted Prozac. Esophagitis, unspecified 04/23/2009 017 Acute gastritis without mention of hemorrhage 08/24/2016 Trochanteric bursitis 03/05/2009 11/12/2014 Nontoxic uninodular goiter 01/16/200902/24 Overview: 08/13/19 US thyroid right mid-pole thyroid solid nodule 9 x 7 x 4 mm stable since 2016 Last Assessment & Plan: Assessment: under surveillance Nonallopathic lesion of sacr al region, not elsewhere classified 01/02/2009 11/13/2020 Osteoarthrosis, unspecified whether generalized or localized, unspecified site 11/12/2008 11/13/2020 ABSCESS GROIN 07/23/2008 08/23/2016 Obesity, unspecified 07/15/2008 09/16/2020 Pain in joint, pelvic region and thigh 9 08/24/2016 INTRINSIC ASTHMA UNSPECIFIED 09/03/2007 Other seborrheic keratosis 08/07/200708/23 Calcaneal spur 11/13/2020 Generalized anxiety disorder Overview: Anxiety, Generalized Unspecified asthma(493.90) 09/02 Asthma 08/24/2016 documented as of this encounter (statuses as of 09/17/2021) [facility] of Past illness Narrative* Problem Noted Date Resolved Date Primary osteoarthritis of left knee 12/08/2019 11/13/2020 Bruit of left carotid artery 12/05/2019 Last Assessment & Plan: Assessment: pending Carotid US Chronic left shoulder pain 10/04/201709/16 Heartburn 02/27/2017 11/13/2020 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 02/17/2017 12/05/2019 Overview: Added automatically from request for surgery [id number] Acute pain of left knee 12/26/2016 11/14/19 Chronic right shoulder pain 12/26/2016 04/0 12/2020 Gross hematuria 11/24/2016 11/13/2020 Malignant neoplasm of kidney excluding renal pel vis 10/21/2016 02/27/2017 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, without long-term current use of insulin 09/30/2016 09/30/2016 Neuropathy 09/30/2016 11/13/2020 Last Assessment & Plan: Assessment: stable on rx Asthma with COPD with exacerbation 08/24/2016 02/27/2017 Counseling and coordination of care 12/15/2014 08/24/2016 SUMMARY 11/21/2014 08/24/2016 Overview: Indication for hospital admission/procedure: Aortic aneurysm LVEF: 65% LVH RVF: Normal Important/Relevant PMH/PSH: BAV, Congenital anomaly of aorta, SIVAKUMAR, Asthma, HTN, HPL, DM, anxiety Preoperative Hospital Course Procedure/Surgeries: 11/17/2014 Mini-BAV repair, Ascending aortic replacement Airway Difficulty: No OR Course: Coagulopathy/bleeding requiring correction with 20u cryo, 8u FFP, 4u plts, 3uprbcs and 2 pump runs for repair of aortic cannulation site Pacing wires: out Postoperative Course/General Impression: S/p AVr/Asc aorta replacement. Plan to wean o2, pep, oob, increase diuresis, cont BB, pain and glucose control. Issues to communicate at signout: CT removed CPAP at night echo done CTA done PT rec acute rehab Needs much encouragement wires out / d/c to acute rehab today Discharge planning 11/21/2014 05/03/2016 Overview: Pt from [place], [place]. PT rec acute rehab; CM working on placement. Leaving for [facility] in-pt rehab today Hypertension 11/20/2014 02/27/2017 Overview: History: pre op on monopril, norv, Assessment: normotensive currently Plan: Cont BB , cont lasix Atelectasis 11/18/2014 11/19/2014 Overview: Bilateral on CXR. A/P: PEP, EZPAP OOBTC. Volume overload 11/18/2014 08/24/2016 Overview: History: post op Assessment: wt up 5 kg from pre op Plan: cont diuresis On mechanically assisted ventilation 11/17/2014 11/19/2014 Overview: Grade 1 airway. WTE when awake and stable. Extubated on DOS. CPAP at night PEP. Cardiac insufficiency following cardiac surgery 11/17/2014 11/20/2014 Overview: Low CI. CVP low. A/p Epi gtt off. Start BB. Pre-op testing 11/14/2014 08/23/2016 Overview: Images from the original note were not included. [facility] PRE[facility] Surgeon: Modesto Cifuentes M.D. Informed Consent Completed: Yes STS Score: unsupported CAD: No Is intended procedure a CABG: No - is a beta hue ordered? No - reason: not indicated H & P completed: Yes 10/28/14 PA/LAT: Completed CT: Completed MRI: N/A LE US: N/A Cath: Yes - reviewed: Yes Echo:Completed EKG: Completed EF %: 65 PI's: N/A Carotid: N/A Mapping: N/A Dental: Completed PFT's: N/A No results for input(s): WBC, HB, HCT, PLT, INR, CREAT in the last 72 hours. UA: Normal HCG:N/A ABO/ABO Confirmed: Yes Blood ordered: No SA Swab: Yes - results: Negative Last Dose of Anticoagulation: OTC 11/12/14 Op Note: N/A Pacemaker Check: N/A Consults: none DM: Yes, A1c: 6.6% Cardiac Surgical prep: N/A SIGNATURE: JERSON Tian CHECKED BY: [email or web address] DATE of SERVICE: 11/14/2014 TIME of SERVICE: 10:59 AM discharge planning 11/10/2014 11/12/2014 Overview: 64yo male without any concerns presently Preop testing 11/10/2014 11/12/2014 Overview: Images from the original note were not included. [facility] Surgeon: Modesto Cifuentes M.D. Informed Consent Completed: pending STS Score: unsupported CAD: Yes - CAD on Problem List: Yes Is intended procedure a CABG: No - is a beta hue ordered? No - reason: not indicated H & P completed: Yes PA/LAT: Completed CT: Completed MRI: N/A LE US: N/A Cath: Yes - reviewed: Yes Echo:Completed EKG: Completed EF %: 65 PI's: Completed Carotid: N/A Mapping: N/A Dental: Pending PFT's: Completed No results for input(s): WBC, HB, HCT, PLT, INR, CREAT in the last 72 hours. UA: Normal HCG:N/A ABO/ABO Confirmed: Yes Blood ordered: No SA Swab: Yes - results: Pending Last Dose of Anticoagulation: vit basa LD 11/03 Op Note: N/A Pacemaker Check: N/A Consults: none DM: No Cardiac Surgical prep: N/A SIGNATURE: Kate Smith RN CHECKED BY: DATE of SERVICE: 11/10/2014 TIME of SERVICE: 10:05 AM Right rotator cuff tear 12/31/2013 08/25/19 17 Pain in joint, shoulder region 12/16/2013 0 08/24/2016 Essential hypertension, benign 12/03/2013 0 11/19/2014 Overview: Home RX; Nortvasc, ACEi A/P: NTg gtt to keep MAPS 65-75. Wean off. Hydralazine prn. Start BB when off Epi. Pain in joint, lower leg 04/16/2013 017 Degenerative tear of medial meniscus 04/16/2013 11/13/2020 Anxiety 07/08/2011 11/13/2020 Overview: Home Rx; Prozac. A/p Restarted Prozac. Esophagitis, unspecified 04/23/2009 017 Acute gastritis without mention of hemorrhage 08/24/2016 Trochanteric bursitis 03/05/2009 11/12/2014 Nontoxic uninodular goiter 01/16/200902/24 Overview: 08/13/19 US thyroid right mid-pole thyroid solid nodule 9 x 7 x 4 mm stable since 2016 Last Assessment & Plan: Assessment: under surveillance Nonallopathic lesion of sacr al region, not elsewhere classified 01/02/2009 11/13/2020 Osteoarthrosis, unspecified whether generalized or localized, unspecified site 11/12/2008 11/13/2020 ABSCESS GROIN 07/23/2008 08/23/2016 Obesity, unspecified 07/15/2008 09/16/2020 Pain in joint, pelvic region and thigh 9 08/24/2016 INTRINSIC ASTHMA UNSPECIFIED 09/03/2007 Other seborrheic keratosis 08/07/200708/23 Calcaneal spur 11/13/2020 Generalized anxiety disorder Overview: Anxiety, Generalized Unspecified asthma(493.90) 09/02 Asthma 08/24/2016 documented as of this encounter (statuses as of 09/17/2021) [facility]2020 History of Past illness Narrative* Problem Noted Date Resolved Date Primary osteoarthritis of left knee 12/08/2019 11/13/2020 Bruit of left carotid artery 12/05/2019 Last Assessment & Plan: Assessment: pending Carotid US Chronic left shoulder pain 10/04/201709/16 Heartburn 02/27/2017 11/13/2020 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 02/17/2017 12/05/2019 Overview: Added automatically from request for surgery [id number] Acute pain of left knee 12/26/2016 11/14/19 Chronic right shoulder pain 12/26/2016 04/0 12/2020 Gross hematuria 11/24/2016 11/13/2020 Malignant neoplasm of kidney excluding renal pel vis 10/21/2016 02/27/2017 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, without long-term current use of insulin 09/30/2016 09/30/2016 Neuropathy 09/30/2016 11/13/2020 Last Assessment & Plan: Assessment: stable on rx Asthma with COPD with exacerbation 08/24/2016 02/27/2017 Counseling and coordination of care 12/15/2014 08/24/2016 SUMMARY 11/21/2014 08/24/2016 Overview: Indication for hospital admission/procedure: Aortic aneurysm LVEF: 65% LVH RVF: Normal Important/Relevant PMH/PSH: BAV, Congenital anomaly of aorta, SIVAKUMAR, Asthma, HTN, HPL, DM, anxiety Preoperative Hospital Course Procedure/Surgeries: 11/17/2014 Mini-BAV repair, Ascending aortic replacement Airway Difficulty: No OR Course: Coagulopathy/bleeding requiring correction with 20u cryo, 8u FFP, 4u plts, 3uprbcs and 2 pump runs for repair of aortic cannulation site Pacing wires: out Postoperative Course/General Impression: S/p AVr/Asc aorta replacement. Plan to wean o2, pep, oob, increase diuresis, cont BB, pain and glucose control. Issues to communicate at signout: CT removed CPAP at night echo done CTA done PT rec acute rehab Needs much encouragement wires out 11/23 d/c to acute rehab today Discharge planning 11/21/2014 05/03/2016 Overview: Pt from [place], [place]. PT rec acute rehab; CM working on placement. Leaving for [facility] in-pt rehab today Hypertension 11/20/2014 02/27/2017 Overview: History: pre op on monopril, norv, Assessment: normotensive currently Plan: Cont BB , cont lasix Atelectasis 11/18/2014 11/19/2014 Overview: Bilateral on CXR. A/P: PEP, EZPAP OOBTC. Volume overload 11/18/2014 08/24/2016 Overview: History: post op Assessment: wt up 5 kg from pre op Plan: cont diuresis On mechanically assisted ventilation 11/17/2014 11/19/2014 Overview: Grade 1 airway. WTE when awake and stable. Extubated on DOS. CPAP at night PEP. Cardiac insufficiency following cardiac surgery 11/17/2014 11/20/2014 Overview: Low CI. CVP low. A/p Epi gtt off. Start BB. Pre-op testing 11/14/2014 08/23/2016 Overview: Images from the original note were not included. [facility] Surgeon: Modesto Cifuentes M.D. Informed Consent Completed: Yes STS Score: unsupported CAD: No Is intended procedure a CABG: No - is a beta hue ordered? No - reason: not indicated H & P completed: Yes 10/28/14 PA/LAT: Completed CT: Completed MRI: N/A LE US: N/A Cath: Yes - reviewed: Yes Echo:Completed EKG: Completed EF %: 65 PI's: N/A Carotid: N/A Mapping: N/A Dental: Completed PFT's: N/A No results for input(s): WBC, HB, HCT, PLT, INR, CREAT in the last 72 hours. UA: Normal HCG:N/A ABO/ABO Confirmed: Yes Blood ordered: No SA Swab: Yes - results: Negative Last Dose of Anticoagulation: OTC 11/12/14 Op Note: N/A Pacemaker Check: N/A Consults: none DM: Yes, A1c: 6.6% Cardiac Surgical prep: N/A SIGNATURE: JERSON Tian CHECKED BY: [email or web address] DATE of SERVICE: 11/14/2014 TIME of SERVICE: 10:59 AM discharge planning 11/10/2014 11/12/2014 Overview: 64yo male without any concerns presently Preop testing 11/10/2014 11/12/2014 Overview: Images from the original note were not included. [facility] Surgeon: Modesto Cifuentes M.D. Informed Consent Completed: pending STS Score: unsupported CAD: Yes - CAD on Problem List: Yes Is intended procedure a CABG: No - is a beta hue ordered? No - reason: not indicated H & P completed: Yes PA/LAT: Completed CT: Completed MRI: N/A LE US: N/A Cath: Yes - reviewed: Yes Echo:Completed EKG: Completed EF %: 65 PI's: Completed Carotid: N/A Mapping: N/A Dental: Pending PFT's: Completed No results for input(s): WBC, HB, HCT, PLT, INR, CREAT in the last 72 hours. UA: Normal HCG:N/A ABO/ABO Confirmed: Yes Blood ordered: No SA Swab: Yes - results: Pending Last Dose of Anticoagulation: vit basa LD 11/03 Op Note: N/A Pacemaker Check: N/A Consults: none DM: No Cardiac Surgical prep: N/A SIGNATURE: Kate Smith RN CHECKED BY: DATE of SERVICE: 11/10/2014 TIME of SERVICE: 10:05 AM Right rotator cuff tear 12/31/2013 08/25/19 17 Pain in joint, shoulder region 12/16/2013 0 08/24/2016 Essential hypertension, benign 12/03/2013 0 11/19/2014 Overview: Home RX; Nortvasc, ACEi A/P: NTg gtt to keep MAPS 65-75. Wean off. Hydralazine prn. Start BB when off Epi. Pain in joint, lower leg 04/16/2013 017 Degenerative tear of medial meniscus 04/16/2013 11/13/2020 Anxiety 07/08/2011 11/13/2020 Overview: Home Rx; Prozac. A/p Restarted Prozac. Esophagitis, unspecified 04/23/2009 017 Acute gastritis without mention of hemorrhage 08/24/2016 Trochanteric bursitis 03/05/2009 11/12/2014 Nontoxic uninodular goiter 01/16/200902/24 Overview: 08/13/19 US thyroid right mid-pole thyroid solid nodule 9 x 7 x 4 mm stable since 2016 Last Assessment & Plan: Assessment: under surveillance Nonallopathic lesion of sacr al region, not elsewhere classified 01/02/2009 11/13/2020 Osteoarthrosis, unspecified whether generalized or localized, unspecified site 11/12/2008 11/13/2020 ABSCESS GROIN 07/23/2008 08/23/2016 Obesity, unspecified 07/15/2008 09/16/2020 Pain in joint, pelvic region and thigh 9 08/24/2016 INTRINSIC ASTHMA UNSPECIFIED 09/03/2007 Other seborrheic keratosis 08/07/200708/23 Calcaneal spur 11/13/2020 Generalized anxiety disorder Overview: Anxiety, Generalized Unspecified asthma(493.90) 09/02 Asthma 08/24/2016 documented as of this encounter (statuses as of 09/22/2021) [facility] History of Past illness Narrative* Problem Noted Date Resolved Date Primary osteoarthritis of left knee 12/08/2019 11/13/2020 Bruit of left carotid artery 12/05/2019 Last Assessment & Plan: Assessment: pending Carotid US Chronic left shoulder pain 10/04/201709/16 Heartburn 02/27/2017 11/13/2020 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 02/17/2017 12/05/2019 Overview: Added automatically from request for surgery [id number] Acute pain of left knee 12/26/2016 11/14/19 21 Chronic right shoulder pain 12/26/2016 04/0 12/2020 Gross hematuria 11/24/2016 11/13/2020 Malignant neoplasm of kidney excluding renal pel vis 10/21/2016 02/27/2017 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, without long-term current use of insulin 09/30/2016 09/30/2016 Neuropathy 09/30/2016 11/13/2020 Last Assessment & Plan: Assessment: stable on rx Asthma with COPD with exacerbation 08/24/2016 02/27/2017 Counseling and coordination of care 12/15/2014 08/24/2016 SUMMARY 11/21/2014 08/24/2016 Overview: Indication for hospital admission/procedure: Aortic aneurysm LVEF: 65% LVH RVF: Normal Important/Relevant PMH/PSH: BAV, Congenital anomaly of aorta, SIVAKUMAR, Asthma, HTN, HPL, DM, anxiety Preoperative Hospital Course Procedure/Surgeries: 11/17/2014 Mini-BAV repair, Ascending aortic replacement Airway Difficulty: No OR Course: Coagulopathy/bleeding requiring correction with 20u cryo, 8u FFP, 4u plts, 3uprbcs and 2 pump runs for repair of aortic cannulation site Pacing wires: out Postoperative Course/General Impression: S/p AVr/Asc aorta replacement. Plan to wean o2, pep, oob, increase diuresis, cont BB, pain and glucose control. Issues to communicate at signout: CT removed CPAP at night echo done CTA done PT rec acute rehab Needs much encouragement wires out 11/23 d/c to acute rehab today Discharge planning 11/21/2014 05/03/2016 Overview: Pt from [place], [place]. PT rec acute rehab; CM working on placement. Leaving for [facility] in-pt rehab today Hypertension 11/20/2014 02/27/2017 Overview: History: pre op on monopril, norv, Assessment: normotensive currently Plan: Cont BB , cont lasix Atelectasis 11/18/2014 11/19/2014 Overview: Bilateral on CXR. A/P: PEP, EZPAP OOBTC. Volume overload 11/18/2014 08/24/2016 Overview: History: post op Assessment: wt up 5 kg from pre op Plan: cont diuresis On mechanically assisted ventilation 11/17/2014 11/19/2014 Overview: Grade 1 airway. WTE when awake and stable. Extubated on DOS. CPAP at night PEP. Cardiac insufficiency following cardiac surgery 11/17/2014 11/20/2014 Overview: Low CI. CVP low. A/p Epi gtt off. Start BB. Pre-op testing 11/14/2014 08/23/2016 Overview: Images from the original note were not included. [facility] PRE-[facility] CHECK[facility] Surgeon: Modesto Cifuentes M.D. Informed Consent Completed: Yes STS Score: unsupported CAD: No Is intended procedure a CABG: No - is a beta hue ordered? No - reason: not indicated H & P completed: Yes 10/28/14 PA/LAT: Completed CT: Completed MRI: N/A LE US: N/A Cath: Yes - reviewed: Yes Echo:Completed EKG: Completed EF %: 65 PI's: N/A Carotid: N/A Mapping: N/A Dental: Completed PFT's: N/A No results for input(s): WBC, HB, HCT, PLT, INR, CREAT in the last 72 hours. UA: Normal HCG:N/A ABO/ABO Confirmed: Yes Blood ordered: No SA Swab: Yes - results: Negative Last Dose of Anticoagulation: OTC 11/12/14 Op Note: N/A Pacemaker Check: N/A Consults: none DM: Yes, A1c: 6.6% Cardiac Surgical prep: N/A SIGNATURE: JERSON Tian CHECKED BY: [email or web address] DATE of SERVICE: 11/14/2014 TIME of SERVICE: 10:59 AM discharge planning 11/10/2014 11/12/2014 Overview: 64yo male without any concerns presently Preop testing 11/10/2014 11/12/2014 Overview: Images from the original note were not included. [facility] PRE[facility] Surgeon: Modesto Cifuentes M.D. Informed Consent Completed: pending STS Score: unsupported CAD: Yes - CAD on Problem List: Yes Is intended procedure a CABG: No - is a beta hue ordered? No - reason: not indicated H & P completed: Yes PA/LAT: Completed CT: Completed MRI: N/A LE US: N/A Cath: Yes - reviewed: Yes Echo:Completed EKG: Completed EF %: 65 PI's: Completed Carotid: N/A Mapping: N/A Dental: Pending PFT's: Completed No results for input(s): WBC, HB, HCT, PLT, INR, CREAT in the last 72 hours. UA: Normal HCG:N/A ABO/ABO Confirmed: Yes Blood ordered: No SA Swab: Yes - results: Pending Last Dose of Anticoagulation: vit basa LD 11/03 Op Note: N/A Pacemaker Check: N/A Consults: none DM: No Cardiac Surgical prep: N/A SIGNATURE: Kate Smith RN CHECKED BY: DATE of SERVICE: 11/10/2014 TIME of SERVICE: 10:05 AM Right rotator cuff tear 12/31/2013 08/25/19 17 Pain in joint, shoulder region 12/16/2013 0 08/24/2016 Essential hypertension, benign 12/03/2013 0 11/19/2014 Overview: Home RX; Nortvasc, ACEi A/P: NTg gtt to keep MAPS 65-75. Wean off. Hydralazine prn. Start BB when off Epi. Pain in joint, lower leg 04/16/2013 017 Degenerative tear of medial meniscus 04/16/2013 11/13/2020 Anxiety 07/08/2011 11/13/2020 Overview: Home Rx; Prozac. A/p Restarted Prozac. Esophagitis, unspecified 04/23/2009 017 Acute gastritis without mention of hemorrhage 08/24/2016 Trochanteric bursitis 03/05/2009 11/12/2014 Nontoxic uninodular goiter 01/16/200902/24 Overview: 08/13/19 US thyroid right mid-pole thyroid solid nodule 9 x 7 x 4 mm stable since 2016 Last Assessment & Plan: Assessment: under surveillance Nonallopathic lesion of sacr al region, not elsewhere classified 01/02/2009 11/13/2020 Osteoarthrosis, unspecified whether generalized or localized, unspecified site 11/12/2008 11/13/2020 ABSCESS GROIN 07/23/2008 08/23/2016 Obesity, unspecified 07/15/2008 09/16/2020 Pain in joint, pelvic region and thigh 9 08/24/2016 INTRINSIC ASTHMA UNSPECIFIED 09/03/2007 Other seborrheic keratosis 08/07/200708/23 Calcaneal spur 11/13/2020 Generalized anxiety disorder Overview: Anxiety, Generalized Unspecified asthma(493.90) 09/02 Asthma 08/24/2016 documented as of this encounter (statuses as of 09/23/2021) [facility] History of Past illness Narrative* Problem Noted Date Resolved Date Primary osteoarthritis of left knee 12/08/2019 11/13/2020 Bruit of left carotid artery 12/05/2019 Last Assessment & Plan: Assessment: pending Carotid US Chronic left shoulder pain 10/04/201709/16 Heartburn 02/27/2017 11/13/2020 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 02/17/2017 12/05/2019 Overview: Added automatically from request for surgery [id number] Acute pain of left knee 12/26/2016 11/14/19 Chronic right shoulder pain 12/26/2016 04/0 12/2020 Gross hematuria 11/24/2016 11/13/2020 Malignant neoplasm of kidney excluding renal pel vis 10/21/2016 02/27/2017 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, without long-term current use of insulin 09/30/2016 09/30/2016 Neuropathy 09/30/2016 11/13/2020 Last Assessment & Plan: Assessment: stable on rx Asthma with COPD with exacerbation 08/24/2016 02/27/2017 Counseling and coordination of care 12/15/2014 08/24/2016 SUMMARY 11/21/2014 08/24/2016 Overview: Indication for hospital admission/procedure: Aortic aneurysm LVEF: 65% LVH RVF: Normal Important/Relevant PMH/PSH: BAV, Congenital anomaly of aorta, SIVAKUMAR, Asthma, HTN, HPL, DM, anxiety Preoperative Hospital Course Procedure/Surgeries: 11/17/2014 Mini-BAV repair, Ascending aortic replacement Airway Difficulty: No OR Course: Coagulopathy/bleeding requiring correction with 20u cryo, 8u FFP, 4u plts, 3uprbcs and 2 pump runs for repair of aortic cannulation site Pacing wires: out Postoperative Course/General Impression: S/p AVr/Asc aorta replacement. Plan to wean o2, pep, oob, increase diuresis, cont BB, pain and glucose control. Issues to communicate at signout: CT removed CPAP at night echo done CTA done PT rec acute rehab Needs much encouragement wires out 11/23 d/c to acute rehab today Discharge planning 11/21/2014 05/03/2016 Overview: Pt from [place], [place]. PT rec acute rehab; CM working on placement. Leaving for [facility] in-pt rehab today Hypertension 11/20/2014 02/27/2017 Overview: History: pre op on monopril, norv, Assessment: normotensive currently Plan: Cont BB , cont lasix Atelectasis 11/18/2014 11/19/2014 Overview: Bilateral on CXR. A/P: PEP, EZPAP OOBTC. Volume overload 11/18/2014 08/24/2016 Overview: History: post op Assessment: wt up 5 kg from pre op Plan: cont diuresis On mechanically assisted ventilation 11/17/2014 11/19/2014 Overview: Grade 1 airway. WTE when awake and stable. Extubated on DOS. CPAP at night PEP. Cardiac insufficiency following cardiac surgery 11/17/2014 11/20/2014 Overview: Low CI. CVP low. A/p Epi gtt off. Start BB. Pre-op testing 11/14/2014 08/23/2016 Overview: Images from the original note were not included. [facility] Surgeon: Modesto Cifuentes M.D. Informed Consent Completed: Yes STS Score: unsupported CAD: No Is intended procedure a CABG: No - is a beta hue ordered? No - reason: not indicated H & P completed: Yes 10/28/14 PA/LAT: Completed CT: Completed MRI: N/A LE US: N/A Cath: Yes - reviewed: Yes Echo:Completed EKG: Completed EF %: 65 PI's: N/A Carotid: N/A Mapping: N/A Dental: Completed PFT's: N/A No results for input(s): WBC, HB, HCT, PLT, INR, CREAT in the last 72 hours. UA: Normal HCG:N/A ABO/ABO Confirmed: Yes Blood ordered: No SA Swab: Yes - results: Negative Last Dose of Anticoagulation: OTC 11/12/14 Op Note: N/A Pacemaker Check: N/A Consults: none DM: Yes, A1c: 6.6% Cardiac Surgical prep: N/A SIGNATURE: JERSON Tian CHECKED BY: [email or web address] DATE of SERVICE: 11/14/2014 TIME of SERVICE: 10:59 AM discharge planning 11/10/2014 11/12/2014 Overview: 64yo male without any concerns presently Preop testing 11/10/2014 11/12/2014 Overview: Images from the original note were not included. [facility] Surgeon: Modesto Cifuentes M.D. Informed Consent Completed: pending STS Score: unsupported CAD: Yes - CAD on Problem List: Yes Is intended procedure a CABG: No - is a beta hue ordered? No - reason: not indicated H & P completed: Yes PA/LAT: Completed CT: Completed MRI: N/A LE US: N/A Cath: Yes - reviewed: Yes Echo:Completed EKG: Completed EF %: 65 PI's: Completed Carotid: N/A Mapping: N/A Dental: Pending PFT's: Completed No results for input(s): WBC, HB, HCT, PLT, INR, CREAT in the last 72 hours. UA: Normal HCG:N/A ABO/ABO Confirmed: Yes Blood ordered: No SA Swab: Yes - results: Pending Last Dose of Anticoagulation: vit basa LD 11/03 Op Note: N/A Pacemaker Check: N/A Consults: none DM: No Cardiac Surgical prep: N/A SIGNATURE: Kate Smith RN CHECKED BY: DATE of SERVICE: 11/10/2014 TIME of SERVICE: 10:05 AM Right rotator cuff tear 12/31/2013 08/25/19 17 Pain in joint, shoulder region 12/16/2013 0 08/24/2016 Essential hypertension, benign 12/03/2013 0 11/19/2014 Overview: Home RX; Nortvasc, ACEi A/P: NTg gtt to keep MAPS 65-75. Wean off. Hydralazine prn. Start BB when off Epi. Pain in joint, lower leg 04/16/2013 017 Degenerative tear of medial meniscus 04/16/2013 11/13/2020 Anxiety 07/08/2011 11/13/2020 Overview: Home Rx; Prozac. A/p Restarted Prozac. Esophagitis, unspecified 04/23/2009 017 Acute gastritis without mention of hemorrhage 08/24/2016 Trochanteric bursitis 03/05/2009 11/12/2014 Nontoxic uninodular goiter 01/16/200902/24 Overview: 08/13/19 thyroid right mid-pole thyroid solid nodule 9 x 7 x 4 mm stable since 2016 Last Assessment & Plan: Assessment: under surveillance Nonallopathic lesion of sacr al region, not elsewhere classified 01/02/2009 11/13/2020 Osteoarthrosis, unspecified whether generalized or localized, unspecified site 11/12/2008 11/13/2020 ABSCESS GROIN 07/23/2008 08/23/2016 Obesity, unspecified 07/15/2008 09/16/2020 Pain in joint, pelvic region and thigh 9 08/24/2016 INTRINSIC ASTHMA UNSPECIFIED 09/03/2007 Other seborrheic keratosis 08/07/200708/23 Calcaneal spur 11/13/2020 Generalized anxiety disorder Overview: Anxiety, Generalized Unspecified asthma(493.90) 09/02 Asthma 08/24/2016 documented as of this encounter (statuses as of 10/06/2021) [facility] History of Past illness Narrative* Problem Noted Date Resolved Date Primary osteoarthritis of left knee 12/08/2019 11/13/2020 Bruit of left carotid artery 12/05/2019 Last Assessment & Plan: Assessment: pending Carotid US Chronic left shoulder pain 10/04/201709/16 Heartburn 02/27/2017 11/13/2020 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 02/17/2017 12/05/2019 Overview: Added automatically from request for surgery [id number] Acute pain of left knee 12/26/2016 11/14/19 Chronic right shoulder pain 12/26/2016 04/12/2020 Gross hematuria 11/24/2016 11/13/2020 Malignant neoplasm of kidney excluding renal pel vis 10/21/2016 02/27/2017 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, without long-term current use of insulin 09/30/2016 09/30/2016 Neuropathy 09/30/2016 11/13/2020 Last Assessment & Plan: Assessment: stable on rx Asthma with COPD with exacerbation 08/24/2016 02/27/2017 Counseling and coordination of care 12/15/2014 08/24/2016 SUMMARY 11/21/2014 08/24/2016 Overview: Indication for hospital admission/procedure: Aortic aneurysm LVEF: 65% LVH RVF: Normal Important/Relevant PMH/PSH: BAV, Congenital anomaly of aorta, SIVAKUMAR, Asthma, HTN, HPL, DM, anxiety Preoperative Hospital Course Procedure/Surgeries: 11/17/2014 Mini-BAV repair, Ascending aortic replacement Airway Difficulty: No OR Course: Coagulopathy/bleeding requiring correction with 20u cryo, 8u FFP, 4u plts, 3uprbcs and 2 pump runs for repair of aortic cannulation site Pacing wires: out Postoperative Course/General Impression: S/p AVr/Asc aorta replacement. Plan to wean o2, pep, oob, increase diuresis, cont BB, pain and glucose control. Issues to communicate at signout: CT removed CPAP at night echo done CTA done PT rec acute rehab Needs much encouragement wires out 11/23 d/c to acute rehab today Discharge planning 11/21/2014 05/03/2016 Overview: Pt from [place], [place]. PT rec acute rehab; CM working on placement. Leaving for [facility] in-pt rehab today Hypertension 11/20/2014 02/27/2017 Overview: History: pre op on monopril, norv, Assessment: normotensive currently Plan: Cont BB , cont lasix Atelectasis 11/18/2014 11/19/2014 Overview: Bilateral on CXR. A/P: PEP, EZPAP OOBTC. Volume overload 11/18/2014 08/24/2016 Overview: History: post op Assessment: wt up 5 kg from pre op Plan: cont diuresis On mechanically assisted ventilation 11/17/2014 11/19/2014 Overview: Grade 1 airway. WTE when awake and stable. Extubated on DOS. CPAP at night PEP. Cardiac insufficiency following cardiac surgery 11/17/2014 11/20/2014 Overview: Low CI. CVP low. A/p Epi gtt off. Start BB. Pre-op testing 11/14/2014 08/23/2016 Overview: Images from the original note were not included. [facility] Surgeon: Modesto Cifuentes M.D. Informed Consent Completed: Yes STS Score: unsupported CAD: No Is intended procedure a CABG: No - is a beta hue ordered? No - reason: not indicated H & P completed: Yes 10/28/14 PA/LAT: Completed CT: Completed MRI: N/A LE US: N/A Cath: Yes - reviewed: Yes Echo:Completed EKG: Completed EF %: 65 PI's: N/A Carotid: N/A Mapping: N/A Dental: Completed PFT's: N/A No results for input(s): WBC, HB, HCT, PLT, INR, CREAT in the last 72 hours. UA: Normal HCG:N/A ABO/ABO Confirmed: Yes Blood ordered: No SA Swab: Yes - results: Negative Last Dose of Anticoagulation: OTC 11/12/14 Op Note: N/A Pacemaker Check: N/A Consults: none DM: Yes, A1c: 6.6% Cardiac Surgical prep: N/A SIGNATURE: Laura Mathews [employer] EXTINGU[employer] TECHNICIAN CHECKED BY: [email or web address] DATE of SERVICE: 11/14/2014 TIME of SERVICE: 10:59 AM discharge planning 11/10/2014 11/12/2014 Overview: 64yo male without any concerns presently Preop testing 11/10/2014 11/12/2014 Overview: Images from the original note were not included. [facility] Surgeon: Modesto Cifuentes M.D. Informed Consent Completed: pending STS Score: unsupported CAD: Yes - CAD on Problem List: Yes Is intended procedure a CABG: No - is a beta hue ordered? No - reason: not indicated H & P completed: Yes PA/LAT: Completed CT: Completed MRI: N/A LE US: N/A Cath: Yes - reviewed: Yes Echo:Completed EKG: Completed EF %: 65 PI's: Completed Carotid: N/A Mapping: N/A Dental: Pending PFT's: Completed No results for input(s): WBC, HB, HCT, PLT, INR, CREAT in the last 72 hours. UA: Normal HCG:N/A ABO/ABO Confirmed: Yes Blood ordered: No SA Swab: Yes - results: Pending Last Dose of Anticoagulation: vit basa LD 11/03 Op Note: N/A Pacemaker Check: N/A Consults: none DM: No Cardiac Surgical prep: N/A SIGNATURE: Kate Smith RN CHECKED BY: DATE of SERVICE: 11/10/2014 TIME of SERVICE: 10:05 AM Right rotator cuff tear 12/31/2013 08/25/19 17 Pain in joint, shoulder region 12/16/2013 0 08/24/2016 Essential hypertension, benign 12/03/2013 0 11/19/2014 Overview: Home RX; Nortvasc, ACEi A/P: NTg gtt to keep MAPS 65-75. Wean off. Hydralazine prn. Start BB when off Epi. Pain in joint, lower leg 04/16/2013 017 Degenerative tear of medial meniscus 04/16/2013 11/13/2020 Anxiety 07/08/2011 11/13/2020 Overview: Home Rx; Prozac. A/p Restarted Prozac. Esophagitis, unspecified 04/23/2009 017 Acute gastritis without mention of hemorrhage 08/24/2016 Trochanteric bursitis 03/05/2009 11/12/2014 Nontoxic uninodular goiter 01/16/200902/24 Overview: 08/13/19 thyroid right mid-pole thyroid solid nodule 9 x 7 x 4 mm stable since 2016 Last Assessment & Plan: Assessment: under surveillance Nonallopathic lesion of sacr al region, not elsewhere classified 01/02/2009 11/13/2020 Osteoarthrosis, unspecified whether generalized or localized, unspecified site 11/12/2008 11/13/2020 ABSCESS GROIN 07/23/2008 08/23/2016 Obesity, unspecified 07/15/2008 09/16/2020 Pain in joint, pelvic region and thigh 9 08/24/2016 INTRINSIC ASTHMA UNSPECIFIED 09/03/2007 Other seborrheic keratosis 08/07/200708/23 Calcaneal spur 11/13/2020 Generalized anxiety disorder Overview: Anxiety, Generalized Unspecified asthma(493.90) 09/02 Asthma 08/24/2016 documented as of this encounter (statuses as of 10/07/2021) [facility] History of Past illness Narrative* Problem Noted Date Resolved Date Primary osteoarthritis of left knee 12/08/2019 11/13/2020 Bruit of left carotid artery 12/05/2019 Last Assessment & Plan: Assessment: pending Carotid US Chronic left shoulder pain 10/04/201709/16 Heartburn 02/27/2017 11/13/2020 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 02/17/2017 12/05/2019 Overview: Added automatically from request for surgery [id number] Acute pain of left knee 12/26/2016 11/14/19 Chronic right shoulder pain 12/26/2016 04/0 12/2020 Gross hematuria 11/24/2016 11/13/2020 Malignant neoplasm of kidney excluding renal pel vis 10/21/2016 02/27/2017 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, without long-term current use of insulin 09/30/2016 09/30/2016 Neuropathy 09/30/2016 11/13/2020 Last Assessment & Plan: Assessment: stable on rx Asthma with COPD with exacerbation 08/24/2016 02/27/2017 Counseling and coordination of care 12/15/2014 08/24/2016 SUMMARY 11/21/2014 08/24/2016 Overview: Indication for hospital admission/procedure: Aortic aneurysm LVEF: 65% LVH RVF: Normal Important/Relevant PMH/PSH: BAV, Congenital anomaly of aorta, SIVAKUMAR, Asthma, HTN, HPL, DM, anxiety Preoperative Hospital Course Procedure/Surgeries: 11/17/2014 Mini-BAV repair, Ascending aortic replacement Airway Difficulty: No OR Course: Coagulopathy/bleeding requiring correction with 20u cryo, 8u FFP, 4u plts, 3uprbcs and 2 pump runs for repair of aortic cannulation site Pacing wires: out Postoperative Course/General Impression: S/p AVr/Asc aorta replacement. Plan to wean o2, pep, oob, increase diuresis, cont BB, pain and glucose control. Issues to communicate at signout: CT removed CPAP at night echo done CTA done PT rec acute rehab Needs much encouragement wires out 11/23 d/c to acute rehab today Discharge planning 11/21/2014 05/03/2016 Overview: Pt from [place], [place]. PT rec acute rehab; CM working on placement. Leaving for [facility] in-pt rehab today Hypertension 11/20/2014 02/27/2017 Overview: History: pre op on monopril, norv, Assessment: normotensive currently Plan: Cont BB , cont lasix Atelectasis 11/18/2014 11/19/2014 Overview: Bilateral on CXR. A/P: PEP, EZPAP OOBTC. Volume overload 11/18/2014 08/24/2016 Overview: History: post op Assessment: wt up 5 kg from pre op Plan: cont diuresis On mechanically assisted ventilation 11/17/2014 11/19/2014 Overview: Grade 1 airway. WTE when awake and stable. Extubated on DOS. CPAP at night PEP. Cardiac insufficiency following cardiac surgery 11/17/2014 11/20/2014 Overview: Low CI. CVP low. A/p Epi gtt off. Start BB. Pre-op testing 11/14/2014 08/23/2016 Overview: Images from the original note were not included. [facility] Surgeon: Modesto Cifuentes M.D. Informed Consent Completed: Yes STS Score: unsupported CAD: No Is intended procedure a CABG: No - is a beta hue ordered? No - reason: not indicated H & P completed: Yes 10/28/14 PA/LAT: Completed CT: Completed MRI: N/A LE US: N/A Cath: Yes - reviewed: Yes Echo:Completed EKG: Completed EF %: 65 PI's: N/A Carotid: N/A Mapping: N/A Dental: Completed PFT's: N/A No results for input(s): WBC, HB, HCT, PLT, INR, CREAT in the last 72 hours. UA: Normal HCG:N/A ABO/ABO Confirmed: Yes Blood ordered: No SA Swab: Yes - results: Negative Last Dose of Anticoagulation: OTC 11/12/14 Op Note: N/A Pacemaker Check: N/A Consults: none DM: Yes, A1c: 6.6% Cardiac Surgical prep: N/A SIGNATURE: JERSON Tian CHECKED BY: [email or web address] DATE of SERVICE: 11/14/2014 TIME of SERVICE: 10:59 AM discharge planning 11/10/2014 11/12/2014 Overview: 64yo male without any concerns presently Preop testing 11/10/2014 11/12/2014 Overview: Images from the original note were not included. [facility] Surgeon: Modesto Cifuentes M.D. Informed Consent Completed: pending STS Score: unsupported CAD: Yes - CAD on Problem List: Yes Is intended procedure a CABG: No - is a beta hue ordered? No - reason: not indicated H & P completed: Yes PA/LAT: Completed CT: Completed MRI: N/A LE US: N/A Cath: Yes - reviewed: Yes Echo:Completed EKG: Completed EF %: 65 PI's: Completed Carotid: N/A Mapping: N/A Dental: Pending PFT's: Completed No results for input(s): WBC, HB, HCT, PLT, INR, CREAT in the last 72 hours. UA: Normal HCG:N/A ABO/ABO Confirmed: Yes Blood ordered: No SA Swab: Yes - results: Pending Last Dose of Anticoagulation: vit basa LD 11/03 Op Note: N/A Pacemaker Check: N/A Consults: none DM: No Cardiac Surgical prep: N/A SIGNATURE: Kate Smith RN CHECKED BY: DATE of SERVICE: 11/10/2014 TIME of SERVICE: 10:05 AM Right rotator cuff tear 12/31/2013 08/25/19 17 Pain in joint, shoulder region 12/16/2013 0 08/24/2016 Essential hypertension, benign 12/03/2013 0 11/19/2014 Overview: Home RX; Nortvasc, ACEi A/P: NTg gtt to keep MAPS 65-75. Wean off. Hydralazine prn. Start BB when off Epi. Pain in joint, lower leg 04/16/2013 017 Degenerative tear of medial meniscus 04/16/2013 11/13/2020 Anxiety 07/08/2011 11/13/2020 Overview: Home Rx; Prozac. A/p Restarted Prozac. Esophagitis, unspecified 04/23/2009 017 Acute gastritis without mention of hemorrhage 08/24/2016 Trochanteric bursitis 03/05/2009 11/12/2014 Nontoxic uninodular goiter 01/16/200902/24 Overview: 08/13/19 US thyroid right mid-pole thyroid solid nodule 9 x 7 x 4 mm stable since 2016 Last Assessment & Plan: Assessment: under surveillance Nonallopathic lesion of sacr al region, not elsewhere classified 01/02/2009 11/13/2020 Osteoarthrosis, unspecified whether generalized or localized, unspecified site 11/12/2008 11/13/2020 ABSCESS GROIN 07/23/2008 08/23/2016 Obesity, unspecified 07/15/2008 09/16/2020 Pain in joint, pelvic region and thigh 9 08/24/2016 INTRINSIC ASTHMA UNSPECIFIED 09/03/2007 Other seborrheic keratosis 08/07/200708/23 Calcaneal spur 11/13/2020 Generalized anxiety disorder Overview: Anxiety, Generalized Unspecified asthma(493.90) 09/02 Asthma 08/24/2016 documented as of this encounter (statuses as of 10/18/2021) [facility] History of Past illness Narrative* Problem Noted Date Resolved Date Primary osteoarthritis of left knee 12/08/2019 11/13/2020 Bruit of left carotid artery 12/05/2019 Last Assessment & Plan: Assessment: pending Carotid US Chronic left shoulder pain 10/04/201709/16 Heartburn 02/27/2017 11/13/2020 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 02/17/2017 12/05/2019 Overview: Added automatically from request for surgery [id number] Acute pain of left knee 12/26/2016 11/14/19 Chronic right shoulder pain 12/26/2016 04/0 12/2020 Gross hematuria 11/24/2016 11/13/2020 Malignant neoplasm of kidney excluding renal pel vis 10/21/2016 02/27/2017 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, without long-term current use of insulin 09/30/2016 09/30/2016 Neuropathy 09/30/2016 11/13/2020 Last Assessment & Plan: Assessment: stable on rx Asthma with COPD with exacerbation 08/24/2016 02/27/2017 Counseling and coordination of care 12/15/2014 08/24/2016 SUMMARY 11/21/2014 08/24/2016 Overview: Indication for hospital admission/procedure: Aortic aneurysm LVEF: 65% LVH RVF: Normal Important/Relevant PMH/PSH: BAV, Congenital anomaly of aorta, SIVAKUMAR, Asthma, HTN, HPL, DM, anxiety Preoperative Hospital Course Procedure/Surgeries: 11/17/2014 Mini-BAV repair, Ascending aortic replacement Airway Difficulty: No OR Course: Coagulopathy/bleeding requiring correction with 20u cryo, 8u FFP, 4u plts, 3uprbcs and 2 pump runs for repair of aortic cannulation site Pacing wires: out Postoperative Course/General Impression: S/p AVr/Asc aorta replacement. Plan to wean o2, pep, oob, increase diuresis, cont BB, pain and glucose control. Issues to communicate at signout: CT removed CPAP at night echo done CTA done PT rec acute rehab Needs much encouragement wires out 6/14 d/c to acute rehab today Discharge planning 11/21/2014 05/03/2016 Overview: Pt from [place], [place]. PT rec acute rehab; CM working on placement. Leaving for [facility] in-pt rehab today Hypertension 11/20/2014 02/27/2017 Overview: History: pre op on monopril, norv, Assessment: normotensive currently Plan: Cont BB , cont lasix Atelectasis 11/18/2014 11/19/2014 Overview: Bilateral on CXR. A/P: PEP, EZPAP OOBTC. Volume overload 11/18/2014 08/24/2016 Overview: History: post op Assessment: wt up 5 kg from pre op Plan: cont diuresis On mechanically assisted ventilation 11/17/2014 11/19/2014 Overview: Grade 1 airway. WTE when awake and stable. Extubated on DOS. CPAP at night PEP. Cardiac insufficiency following cardiac surgery 11/17/2014 11/20/2014 Overview: Low CI. CVP low. A/p Epi gtt off. Start BB. Pre-op testing 11/14/2014 08/23/2016 Overview: Images from the original note were not included. [facility] Surgeon: Modesto Cifuentes M.D. Informed Consent Completed: Yes STS Score: unsupported CAD: No Is intended procedure a CABG: No - is a beta hue ordered? No - reason: not indicated H & P completed: Yes 10/28/14 PA/LAT: Completed CT: Completed MRI: N/A LE US: N/A Cath: Yes - reviewed: Yes Echo:Completed EKG: Completed EF %: 65 PI's: N/A Carotid: N/A Mapping: N/A Dental: Completed PFT's: N/A No results for input(s): WBC, HB, HCT, PLT, INR, CREAT in the last 72 hours. UA: Normal HCG:N/A ABO/ABO Confirmed: Yes Blood ordered: No SA Swab: Yes - results: Negative Last Dose of Anticoagulation: OTC 11/12/14 Op Note: N/A Pacemaker Check: N/A Consults: none DM: Yes, A1c: 6.6% Cardiac Surgical prep: N/A SIGNATURE: JERSON Tian CHECKED BY: [email or web address] DATE of SERVICE: 11/14/2014 TIME of SERVICE: 10:59 AM discharge planning 11/10/2014 11/12/2014 Overview: 64yo male without any concerns presently Preop testing 11/10/2014 11/12/2014 Overview: Images from the original note were not included. [facility] Surgeon: Modesto Cifuentes M.D. Informed Consent Completed: pending STS Score: unsupported CAD: Yes - CAD on Problem List: Yes Is intended procedure a CABG: No - is a beta hue ordered? No - reason: not indicated H & P completed: Yes PA/LAT: Completed CT: Completed MRI: N/A LE US: N/A Cath: Yes - reviewed: Yes Echo:Completed EKG: Completed EF %: 65 PI's: Completed Carotid: N/A Mapping: N/A Dental: Pending PFT's: Completed No results for input(s): WBC, HB, HCT, PLT, INR, CREAT in the last 72 hours. UA: Normal HCG:N/A ABO/ABO Confirmed: Yes Blood ordered: No SA Swab: Yes - results: Pending Last Dose of Anticoagulation: vit basa LD 11/03 Op Note: N/A Pacemaker Check: N/A Consults: none DM: No Cardiac Surgical prep: N/A SIGNATURE: Kate Smith RN CHECKED BY: DATE of SERVICE: 11/10/2014 TIME of SERVICE: 10:05 AM Right rotator cuff tear 12/31/2013 08/25/19 17 Pain in joint, shoulder region 12/16/2013 0 08/24/2016 Essential hypertension, benign 12/03/2013 0 11/19/2014 Overview: Home RX; Nortvasc, ACEi A/P: NTg gtt to keep MAPS 65-75. Wean off. Hydralazine prn. Start BB when off Epi. Pain in joint, lower leg 04/16/2013 017 Degenerative tear of medial meniscus 04/16/2013 11/13/2020 Anxiety 07/08/2011 11/13/2020 Overview: Home Rx; Prozac. A/p Restarted Prozac. Esophagitis, unspecified 04/23/2009 017 Acute gastritis without mention of hemorrhage 08/24/2016 Trochanteric bursitis 03/05/2009 11/12/2014 Nontoxic uninodular goiter 01/16/200902/24 Overview: 08/13/19 US thyroid right mid-pole thyroid solid nodule 9 x 7 x 4 mm stable since 2016 Last Assessment & Plan: Assessment: under surveillance Nonallopathic lesion of sacr al region, not elsewhere classified 01/02/2009 11/13/2020 Osteoarthrosis, unspecified whether generalized or localized, unspecified site 11/12/2008 11/13/2020 ABSCESS GROIN 07/23/2008 08/23/2016 Obesity, unspecified 07/15/2008 09/16/2020 Pain in joint, pelvic region and thigh 9 08/24/2016 INTRINSIC ASTHMA UNSPECIFIED 09/03/2007 Other seborrheic keratosis 08/07/200708/23 Calcaneal spur 11/13/2020 Generalized anxiety disorder Overview: Anxiety, Generalized Unspecified asthma(493.90) 09/02 Asthma 08/24/2016 documented as of this encounter (statuses as of 10/19/2021) [facility] History of Past illness Narrative* Problem Noted Date Resolved Date Primary osteoarthritis of left knee 12/08/2019 11/13/2020 Bruit of left carotid artery 12/05/2019 Last Assessment & Plan: Assessment: pending Carotid US Chronic left shoulder pain 10/04/201709/16 Heartburn 02/27/2017 11/13/2020 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 02/17/2017 12/05/2019 Overview: Added automatically from request for surgery [id number] Acute pain of left knee 12/26/2016 11/14/19 Chronic right shoulder pain 12/26/2016 04/0 12/2020 Gross hematuria 11/24/2016 11/13/2020 Malignant neoplasm of kidney excluding renal pel vis 10/21/2016 02/27/2017 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, without long-term current use of insulin 09/30/2016 09/30/2016 Neuropathy 09/30/2016 11/13/2020 Last Assessment & Plan: Assessment: stable on rx Asthma with COPD with exacerbation 08/24/2016 02/27/2017 Counseling and coordination of care 12/15/2014 08/24/2016 SUMMARY 11/21/2014 08/24/2016 Overview: Indication for hospital admission/procedure: Aortic aneurysm LVEF: 65% LVH RVF: Normal Important/Relevant PMH/PSH: BAV, Congenital anomaly of aorta, SIVAKUMAR, Asthma, HTN, HPL, DM, anxiety Preoperative Hospital Course Procedure/Surgeries: 11/17/2014 Mini-BAV repair, Ascending aortic replacement Airway Difficulty: No OR Course: Coagulopathy/bleeding requiring correction with 20u cryo, 8u FFP, 4u plts, 3uprbcs and 2 pump runs for repair of aortic cannulation site Pacing wires: out Postoperative Course/General Impression: S/p AVr/Asc aorta replacement. Plan to wean o2, pep, oob, increase diuresis, cont BB, pain and glucose control. Issues to communicate at signout: CT removed CPAP at night echo done CTA done PT rec acute rehab Needs much encouragement wires out 11/23 d/c to acute rehab today Discharge planning 11/21/2014 05/03/2016 Overview: Pt from [place], [place]. PT rec acute rehab; CM working on placement. Leaving for [facility] in-pt rehab today Hypertension 11/20/2014 02/27/2017 Overview: History: pre op on monopril, norv, Assessment: normotensive currently Plan: Cont BB , cont lasix Atelectasis 11/18/2014 11/19/2014 Overview: Bilateral on CXR. A/P: PEP, EZPAP OOBTC. Volume overload 11/18/2014 08/24/2016 Overview: History: post op Assessment: wt up 5 kg from pre op Plan: cont diuresis On mechanically assisted ventilation 11/17/2014 11/19/2014 Overview: Grade 1 airway. WTE when awake and stable. Extubated on DOS. CPAP at night PEP. Cardiac insufficiency following cardiac surgery 11/17/2014 11/20/2014 Overview: Low CI. CVP low. A/p Epi gtt off. Start BB. Pre-op testing 11/14/2014 08/23/2016 Overview: Images from the original note were not included. [facility] Surgeon: Modesto Cifuentes M.D. Informed Consent Completed: Yes STS Score: unsupported CAD: No Is intended procedure a CABG: No - is a beta hue ordered? No - reason: not indicated H & P completed: Yes 10/28/14 PA/LAT: Completed CT: Completed MRI: N/A LE US: N/A Cath: Yes - reviewed: Yes Echo:Completed EKG: Completed EF %: 65 PI's: N/A Carotid: N/A Mapping: N/A Dental: Completed PFT's: N/A No results for input(s): WBC, HB, HCT, PLT, INR, CREAT in the last 72 hours. UA: Normal HCG:N/A ABO/ABO Confirmed: Yes Blood ordered: No SA Swab: Yes - results: Negative Last Dose of Anticoagulation: OTC 11/12/14 Op Note: N/A Pacemaker Check: N/A Consults: none DM: Yes, A1c: 6.6% Cardiac Surgical prep: N/A SIGNATURE: JERSON Tian CHECKED BY: [email or web address] DATE of SERVICE: 11/14/2014 TIME of SERVICE: 10:59 AM discharge planning 11/10/2014 11/12/2014 Overview: 64yo male without any concerns presently Preop testing 11/10/2014 11/12/2014 Overview: Images from the original note were not included. [facility] Surgeon: Modesto Cifuentes M.D. Informed Consent Completed: pending STS Score: unsupported CAD: Yes - CAD on Problem List: Yes Is intended procedure a CABG: No - is a beta hue ordered? No - reason: not indicated H & P completed: Yes PA/LAT: Completed CT: Completed MRI: N/A LE US: N/A Cath: Yes - reviewed: Yes Echo:Completed EKG: Completed EF %: 65 PI's: Completed Carotid: N/A Mapping: N/A Dental: Pending PFT's: Completed No results for input(s): WBC, HB, HCT, PLT, INR, CREAT in the last 72 hours. UA: Normal HCG:N/A ABO/ABO Confirmed: Yes Blood ordered: No SA Swab: Yes - results: Pending Last Dose of Anticoagulation: vit basa LD 11/03 Op Note: N/A Pacemaker Check: N/A Consults: none DM: No Cardiac Surgical prep: N/A SIGNATURE: Kate Smith RN CHECKED BY: DATE of SERVICE: 11/10/2014 TIME of SERVICE: 10:05 AM Right rotator cuff tear 12/31/2013 08/25/19 17 Pain in joint, shoulder region 12/16/2013 0 08/24/2016 Essential hypertension, benign 12/03/2013 0 11/19/2014 Overview: Home RX; Nortvasc, ACEi A/P: NTg gtt to keep MAPS 65-75. Wean off. Hydralazine prn. Start BB when off Epi. Pain in joint, lower leg 04/16/2013 017 Degenerative tear of medial meniscus 04/16/2013 11/13/2020 Anxiety 07/08/2011 11/13/2020 Overview: Home Rx; Prozac. A/p Restarted Prozac. Esophagitis, unspecified 04/23/2009 017 Acute gastritis without mention of hemorrhage 08/24/2016 Trochanteric bursitis 03/05/2009 11/12/2014 Nontoxic uninodular goiter 01/16/200902/24 Overview: 08/13/19 US thyroid right mid-pole thyroid solid nodule 9 x 7 x 4 mm stable since 2016 Last Assessment & Plan: Assessment: under surveillance Nonallopathic lesion of sacr al region, not elsewhere classified 01/02/2009 11/13/2020 Osteoarthrosis, unspecified whether generalized or localized, unspecified site 11/12/2008 11/13/2020 ABSCESS GROIN 07/23/2008 08/23/2016 Obesity, unspecified 07/15/2008 09/16/2020 Pain in joint, pelvic region and thigh 9 08/24/2016 INTRINSIC ASTHMA UNSPECIFIED 09/03/2007 Other seborrheic keratosis 08/07/200708/23 Calcaneal spur 11/13/2020 Generalized anxiety disorder Overview: Anxiety, Generalized Unspecified asthma(493.90) 09/02 Asthma 08/24/2016 documented as of this encounter (statuses as of 10/19/2021) [facility] History of Past illness Narrative* Problem Noted Date Resolved Date Primary osteoarthritis of left knee 12/08/2019 11/13/2020 Bruit of left carotid artery 12/05/2019 Last Assessment & Plan: Assessment: pending Carotid US Chronic left shoulder pain 10/04/201709/16 Heartburn 02/27/2017 11/13/2020 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 02/17/2017 12/05/2019 Overview: Added automatically from request for surgery [id number] Acute pain of left knee 12/26/2016 11/14/19 21 Chronic right shoulder pain 12/26/2016 04/0 12/2020 Gross hematuria 11/24/2016 11/13/2020 Malignant neoplasm of kidney excluding renal pel vis 10/21/2016 02/27/2017 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, without long-term current use of insulin 09/30/2016 09/30/2016 Neuropathy 09/30/2016 11/13/2020 Last Assessment & Plan: Assessment: stable on rx Asthma with COPD with exacerbation 08/24/2016 02/27/2017 Counseling and coordination of care 12/15/2014 08/24/2016 SUMMARY 11/21/2014 08/24/2016 Overview: Indication for hospital admission/procedure: Aortic aneurysm LVEF: 65% LVH RVF: Normal Important/Relevant PMH/PSH: BAV, Congenital anomaly of aorta, SIVAKUMAR, Asthma, HTN, HPL, DM, anxiety Preoperative Hospital Course Procedure/Surgeries: 11/17/2014 Mini-BAV repair, Ascending aortic replacement Airway Difficulty: No OR Course: Coagulopathy/bleeding requiring correction with 20u cryo, 8u FFP, 4u plts, 3uprbcs and 2 pump runs for repair of aortic cannulation site Pacing wires: out Postoperative Course/General Impression: S/p AVr/Asc aorta replacement. Plan to wean o2, pep, oob, increase diuresis, cont BB, pain and glucose control. Issues to communicate at signout: CT removed CPAP at night echo done CTA done PT rec acute rehab Needs much encouragement wires out 11/23 d/c to acute rehab today Discharge planning 11/21/2014 05/03/2016 Overview: Pt from [place], [place]. PT rec acute rehab; CM working on placement. Leaving for [facility] in-pt rehab today Hypertension 11/20/2014 02/27/2017 Overview: History: pre op on monopril, norv, Assessment: normotensive currently Plan: Cont BB , cont lasix Atelectasis 11/18/2014 11/19/2014 Overview: Bilateral on CXR. A/P: PEP, EZPAP OOBTC. Volume overload 11/18/2014 08/24/2016 Overview: History: post op Assessment: wt up 5 kg from pre op Plan: cont diuresis On mechanically assisted ventilation 11/17/2014 11/19/2014 Overview: Grade 1 airway. WTE when awake and stable. Extubated on DOS. CPAP at night PEP. Cardiac insufficiency following cardiac surgery 11/17/2014 11/20/2014 Overview: Low CI. CVP low. A/p Epi gtt off. Start BB. Pre-op testing 11/14/2014 08/23/2016 Overview: Images from the original note were not included. [facility] Surgeon: Modesto Cifuentes M.D. Informed Consent Completed: Yes STS Score: unsupported CAD: No Is intended procedure a CABG: No - is a beta hue ordered? No - reason: not indicated H & P completed: Yes 10/28/14 PA/LAT: Completed CT: Completed MRI: N/A LE US: N/A Cath: Yes - reviewed: Yes Echo:Completed EKG: Completed EF %: 65 PI's: N/A Carotid: N/A Mapping: N/A Dental: Completed PFT's: N/A No results for input(s): WBC, HB, HCT, PLT, INR, CREAT in the last 72 hours. UA: Normal HCG:N/A ABO/ABO Confirmed: Yes Blood ordered: No SA Swab: Yes - results: Negative Last Dose of Anticoagulation: OTC 11/12/14 Op Note: N/A Pacemaker Check: N/A Consults: none DM: Yes, A1c: 6.6% Cardiac Surgical prep: N/A SIGNATURE: JERSON Tian CHECKED BY: [email or web address] DATE of SERVICE: 11/14/2014 TIME of SERVICE: 10:59 AM discharge planning 11/10/2014 11/12/2014 Overview: 64yo male without any concerns presently Preop testing 11/10/2014 11/12/2014 Overview: Images from the original note were not included. [facility] PRE-[facility] CHECKLIST Surgeon: Modesto Cifuentes M.D. Informed Consent Completed: pending STS Score: unsupported CAD: Yes - CAD on Problem List: Yes Is intended procedure a CABG: No - is a beta hue ordered? No - reason: not indicated H & P completed: Yes PA/LAT: Completed CT: Completed MRI: N/A LE US: N/A Cath: Yes - reviewed: Yes Echo:Completed EKG: Completed EF %: 65 PI's: Completed Carotid: N/A Mapping: N/A Dental: Pending PFT's: Completed No results for input(s): WBC, HB, HCT, PLT, INR, CREAT in the last 72 hours. UA: Normal HCG:N/A ABO/ABO Confirmed: Yes Blood ordered: No SA Swab: Yes - results: Pending Last Dose of Anticoagulation: vit basa LD 11/03 Op Note: N/A Pacemaker Check: N/A Consults: none DM: No Cardiac Surgical prep: N/A SIGNATURE: Kate Smith RN CHECKED BY: DATE of SERVICE: 11/10/2014 TIME of SERVICE: 10:05 AM Right rotator cuff tear 12/31/2013 08/25/19 17 Pain in joint, shoulder region 12/16/2013 0 08/24/2016 Essential hypertension, benign 12/03/2013 0 11/19/2014 Overview: Home RX; Nortvasc, ACEi A/P: NTg gtt to keep MAPS 65-75. Wean off. Hydralazine prn. Start BB when off Epi. Pain in joint, lower leg 04/16/2013 017 Degenerative tear of medial meniscus 04/16/2013 11/13/2020 Anxiety 07/08/2011 11/13/2020 Overview: Home Rx; Prozac. A/p Restarted Prozac. Esophagitis, unspecified 04/23/2009 017 Acute gastritis without mention of hemorrhage 08/24/2016 Trochanteric bursitis 03/05/2009 11/12/2014 Nontoxic uninodular goiter 01/16/200902/24 Overview: 08/13/19 US thyroid right mid-pole thyroid solid nodule 9 x 7 x 4 mm stable since 2016 Last Assessment & Plan: Assessment: under surveillance Nonallopathic lesion of sacr al region, not elsewhere classified 01/02/2009 11/13/2020 Osteoarthrosis, unspecified whether generalized or localized, unspecified site 11/12/2008 11/13/2020 ABSCESS GROIN 07/23/2008 08/23/2016 Obesity, unspecified 07/15/2008 09/16/2020 Pain in joint, pelvic region and thigh 9 08/24/2016 INTRINSIC ASTHMA UNSPECIFIED 09/03/2007 Other seborrheic keratosis 08/07/200708/23 Calcaneal spur 11/13/2020 Generalized anxiety disorder Overview: Anxiety, Generalized Unspecified asthma(493.90) 09/02 Asthma 08/24/2016 documented as of this encounter (statuses as of 10/30/2021) [facility] History of Past illness Narrative* Problem Noted Date Resolved Date Primary osteoarthritis of left knee 12/08/2019 11/13/2020 Bruit of left carotid artery 12/05/2019 Last Assessment & Plan: Assessment: pending Carotid US Chronic left shoulder pain 10/04/201709/16 Heartburn 02/27/2017 11/13/2020 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 02/17/2017 12/05/2019 Overview: Added automatically from request for surgery [id number] Acute pain of left knee 12/26/2016 11/14/19 Chronic right shoulder pain 12/26/2016 04/0 12/2020 Gross hematuria 11/24/2016 11/13/2020 Malignant neoplasm of kidney excluding renal pel vis 10/21/2016 02/27/2017 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, without long-term current use of insulin 09/30/2016 09/30/2016 Neuropathy 09/30/2016 11/13/2020 Last Assessment & Plan: Assessment: stable on rx Asthma with COPD with exacerbation 08/24/2016 02/27/2017 Counseling and coordination of care 12/15/2014 08/24/2016 SUMMARY 11/21/2014 08/24/2016 Overview: Indication for hospital admission/procedure: Aortic aneurysm LVEF: 65% LVH RVF: Normal Important/Relevant PMH/PSH: BAV, Congenital anomaly of aorta, SIVAKUMAR, Asthma, HTN, HPL, DM, anxiety Preoperative Hospital Course Procedure/Surgeries: 11/17/2014 Mini-BAV repair, Ascending aortic replacement Airway Difficulty: No OR Course: Coagulopathy/bleeding requiring correction with 20u cryo, 8u FFP, 4u plts, 3uprbcs and 2 pump runs for repair of aortic cannulation site Pacing wires: out Postoperative Course/General Impression: S/p AVr/Asc aorta replacement. Plan to wean o2, pep, oob, increase diuresis, cont BB, pain and glucose control. Issues to communicate at signout: CT removed CPAP at night echo done CTA done PT rec acute rehab Needs much encouragement wires out 11/23 d/c to acute rehab today Discharge planning 11/21/2014 05/03/2016 Overview: Pt from [place], [place]. PT rec acute rehab; CM working on placement. Leaving for [facility] in-pt rehab today Hypertension 11/20/2014 02/27/2017 Overview: History: pre op on monopril, norv, Assessment: normotensive currently Plan: Cont BB , cont lasix Atelectasis 11/18/2014 11/19/2014 Overview: Bilateral on CXR. A/P: PEP, EZPAP OOBTC. Volume overload 11/18/2014 08/24/2016 Overview: History: post op Assessment: wt up 5 kg from pre op Plan: cont diuresis On mechanically assisted ventilation 11/17/2014 11/19/2014 Overview: Grade 1 airway. WTE when awake and stable. Extubated on DOS. CPAP at night PEP. Cardiac insufficiency following cardiac surgery 11/17/2014 11/20/2014 Overview: Low CI. CVP low. A/p Epi gtt off. Start BB. Pre-op testing 11/14/2014 08/23/2016 Overview: Images from the original note were not included. [facility] PRE-OP CHECKLIST Surgeon: Modesto Cifuentes M.D. Informed Consent Completed: Yes STS Score: unsupported CAD: No Is intended procedure a CABG: No - is a beta hue ordered? No - reason: not indicated H & P completed: Yes 10/28/14 PA/LAT: Completed CT: Completed MRI: N/A LE US: N/A Cath: Yes - reviewed: Yes Echo:Completed EKG: Completed EF %: 65 PI's: N/A Carotid: N/A Mapping: N/A Dental: Completed PFT's: N/A No results for input(s): WBC, HB, HCT, PLT, INR, CREAT in the last 72 hours. UA: Normal HCG:N/A ABO/ABO Confirmed: Yes Blood ordered: No SA Swab: Yes - results: Negative Last Dose of Anticoagulation: OTC 11/12/14 Op Note: N/A Pacemaker Check: N/A Consults: none DM: Yes, A1c: 6.6% Cardiac Surgical prep: N/A SIGNATURE: JERSON Tian CHECKED BY: [email or web address] DATE of SERVICE: 11/14/2014 TIME of SERVICE: 10:59 AM discharge planning 11/10/2014 11/12/2014 Overview: 64yo male without any concerns presently Preop testing 11/10/2014 11/12/2014 Overview: Images from the original note were not included. [facility] PRE-[facility] CHECKLIST Surgeon: Modesto Cifuentes M.D. Informed Consent Completed: pending STS Score: unsupported CAD: Yes - CAD on Problem List: Yes Is intended procedure a CABG: No - is a beta hue ordered? No - reason: not indicated H & P completed: Yes PA/LAT: Completed CT: Completed MRI: N/A LE US: N/A Cath: Yes - reviewed: Yes Echo:Completed EKG: Completed EF %: 65 PI's: Completed Carotid: N/A Mapping: N/A Dental: Pending PFT's: Completed No results for input(s): WBC, HB, HCT, PLT, INR, CREAT in the last 72 hours. UA: Normal HCG:N/A ABO/ABO Confirmed: Yes Blood ordered: No SA Swab: Yes - results: Pending Last Dose of Anticoagulation: vit basa LD 11/03 Op Note: N/A Pacemaker Check: N/A Consults: none DM: No Cardiac Surgical prep: N/A SIGNATURE: Kate Smith RN CHECKED BY: DATE of SERVICE: 11/10/2014 TIME of SERVICE: 10:05 AM Right rotator cuff tear 12/31/2013 08/25/19 17 Pain in joint, shoulder region 12/16/2013 0 08/24/2016 Essential hypertension, benign 12/03/2013 0 11/19/2014 Overview: Home RX; Nortvasc, ACEi A/P: NTg gtt to keep MAPS 65-75. Wean off. Hydralazine prn. Start BB when off Epi. Pain in joint, lower leg 04/16/2013 017 Degenerative tear of medial meniscus 04/16/2013 11/13/2020 Anxiety 07/08/2011 11/13/2020 Overview: Home Rx; Prozac. A/p Restarted Prozac. Esophagitis, unspecified 04/23/2009 017 Acute gastritis without mention of hemorrhage 08/24/2016 Trochanteric bursitis 03/05/2009 11/12/2014 Nontoxic uninodular goiter 01/16/200902/24 Overview: 08/13/19 thyroid right mid-pole thyroid solid nodule 9 x 7 x 4 mm stable since 2016 Last Assessment & Plan: Assessment: under surveillance Nonallopathic lesion of sacr al region, not elsewhere classified 01/02/2009 11/13/2020 Osteoarthrosis, unspecified whether generalized or localized, unspecified site 11/12/2008 11/13/2020 ABSCESS GROIN 07/23/2008 08/23/2016 Obesity, unspecified 07/15/2008 09/16/2020 Pain in joint, pelvic region and thigh 9 08/24/2016 INTRINSIC ASTHMA UNSPECIFIED 09/03/2007 Other seborrheic keratosis 08/07/200708/23 Calcaneal spur 11/13/2020 Generalized anxiety disorder Overview: Anxiety, Generalized Unspecified asthma(493.90) 09/02 Asthma 08/24/2016 documented as of this encounter (statuses as of 11/10/2021) [facility] History of Past illness Narrative* Problem Noted Date Resolved Date Primary osteoarthritis of left knee 12/08/2019 11/13/2020 Bruit of left carotid artery 12/05/2019 Last Assessment & Plan: Assessment: pending Carotid US Chronic left shoulder pain 10/04/201709/16 Heartburn 02/27/2017 11/13/2020 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 02/17/2017 12/05/2019 Overview: Added automatically from request for surgery [id number] Acute pain of left knee 12/26/2016 11/14/19 Chronic right shoulder pain 12/26/2016 04/0 12/2020 Gross hematuria 11/24/2016 11/13/2020 Malignant neoplasm of kidney excluding renal pel vis 10/21/2016 02/27/2017 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, without long-term current use of insulin 09/30/2016 09/30/2016 Neuropathy 09/30/2016 11/13/2020 Last Assessment & Plan: Assessment: stable on rx Asthma with COPD with exacerbation 08/24/2016 02/27/2017 Counseling and coordination of care 12/15/2014 08/24/2016 SUMMARY 11/21/2014 08/24/2016 Overview: Indication for hospital admission/procedure: Aortic aneurysm LVEF: 65% LVH RVF: Normal Important/Relevant PMH/PSH: BAV, Congenital anomaly of aorta, SIVAKUMAR, Asthma, HTN, HPL, DM, anxiety Preoperative Hospital Course Procedure/Surgeries: 11/17/2014 Mini-BAV repair, Ascending aortic replacement Airway Difficulty: No OR Course: Coagulopathy/bleeding requiring correction with 20u cryo, 8u FFP, 4u plts, 3uprbcs and 2 pump runs for repair of aortic cannulation site Pacing wires: out Postoperative Course/General Impression: S/p AVr/Asc aorta replacement. Plan to wean o2, pep, oob, increase diuresis, cont BB, pain and glucose control. Issues to communicate at signout: CT removed CPAP at night echo done CTA done PT rec acute rehab Needs much encouragement wires out 11/23 d/c to acute rehab today Discharge planning 11/21/2014 05/03/2016 Overview: Pt from [place], [place]. PT rec acute rehab; CM working on placement. Leaving for [facility] in-pt rehab today Hypertension 11/20/2014 02/27/2017 Overview: History: pre op on monopril, norv, Assessment: normotensive currently Plan: Cont BB , cont lasix Atelectasis 11/18/2014 11/19/2014 Overview: Bilateral on CXR. A/P: PEP, EZPAP OOBTC. Volume overload 11/18/2014 08/24/2016 Overview: History: post op Assessment: wt up 5 kg from pre op Plan: cont diuresis On mechanically assisted ventilation 11/17/2014 11/19/2014 Overview: Grade 1 airway. WTE when awake and stable. Extubated on DOS. CPAP at night PEP. Cardiac insufficiency following cardiac surgery 11/17/2014 11/20/2014 Overview: Low CI. CVP low. A/p Epi gtt off. Start BB. Pre-op testing 11/14/2014 08/23/2016 Overview: Images from the original note were not included. [facility] Surgeon: Modesto Cifuentes M.D. Informed Consent Completed: Yes STS Score: unsupported CAD: No Is intended procedure a CABG: No - is a beta hue ordered? No - reason: not indicated H & P completed: Yes 10/28/14 PA/LAT: Completed CT: Completed MRI: N/A LE US: N/A Cath: Yes - reviewed: Yes Echo:Completed EKG: Completed EF %: 65 PI's: N/A Carotid: N/A Mapping: N/A Dental: Completed PFT's: N/A No results for input(s): WBC, HB, HCT, PLT, INR, CREAT in the last 72 hours. UA: Normal HCG:N/A ABO/ABO Confirmed: Yes Blood ordered: No SA Swab: Yes - results: Negative Last Dose of Anticoagulation: OTC 11/12/14 Op Note: N/A Pacemaker Check: N/A Consults: none DM: Yes, A1c: 6.6% Cardiac Surgical prep: N/A SIGNATURE: JERSON Tian CHECKED BY: [email or web address] DATE of SERVICE: 11/14/2014 TIME of SERVICE: 10:59 AM discharge planning 11/10/2014 11/12/2014 Overview: 64yo male without any concerns presently Preop testing 11/10/2014 11/12/2014 Overview: Images from the original note were not included. [facility] Surgeon: Modesto Cifuentes M.D. Informed Consent Completed: pending STS Score: unsupported CAD: Yes - CAD on Problem List: Yes Is intended procedure a CABG: No - is a beta hue ordered? No - reason: not indicated H & P completed: Yes PA/LAT: Completed CT: Completed MRI: N/A LE US: N/A Cath: Yes - reviewed: Yes Echo:Completed EKG: Completed EF %: 65 PI's: Completed Carotid: N/A Mapping: N/A Dental: Pending PFT's: Completed No results for input(s): WBC, HB, HCT, PLT, INR, CREAT in the last 72 hours. UA: Normal HCG:N/A ABO/ABO Confirmed: Yes Blood ordered: No SA Swab: Yes - results: Pending Last Dose of Anticoagulation: vit basa LD 11/03 Op Note: N/A Pacemaker Check: N/A Consults: none DM: No Cardiac Surgical prep: N/A SIGNATURE: Kate Smith RN CHECKED BY: DATE of SERVICE: 11/10/2014 TIME of SERVICE: 10:05 AM Right rotator cuff tear 12/31/2013 08/25/19 17 Pain in joint, shoulder region 12/16/2013 0 08/24/2016 Essential hypertension, benign 12/03/2013 0 11/19/2014 Overview: Home RX; Nortvasc, ACEi A/P: NTg gtt to keep MAPS 65-75. Wean off. Hydralazine prn. Start BB when off Epi. Pain in joint, lower leg 04/16/2013 017 Degenerative tear of medial meniscus 04/16/2013 11/13/2020 Anxiety 07/08/2011 11/13/2020 Overview: Home Rx; Prozac. A/p Restarted Prozac. Esophagitis, unspecified 04/23/2009 017 Acute gastritis without mention of hemorrhage 08/24/2016 Trochanteric bursitis 03/05/2009 11/12/2014 Nontoxic uninodular goiter 01/16/200902/24 Overview: 08/13/19 US thyroid right mid-pole thyroid solid nodule 9 x 7 x 4 mm stable since 2016 Last Assessment & Plan: Assessment: under surveillance Nonallopathic lesion of sacr al region, not elsewhere classified 01/02/2009 11/13/2020 Osteoarthrosis, unspecified whether generalized or localized, unspecified site 11/12/2008 11/13/2020 ABSCESS GROIN 07/23/2008 08/23/2016 Obesity, unspecified 07/15/2008 09/16/2020 Pain in joint, pelvic region and thigh 9 08/24/2016 INTRINSIC ASTHMA UNSPECIFIED 09/03/2007 Other seborrheic keratosis 08/07/200708/23 Calcaneal spur 11/13/2020 Generalized anxiety disorder Overview: Anxiety, Generalized Unspecified asthma(493.90) 09/02 Asthma 08/24/2016 documented as of this encounter (statuses as of 11/19/2021) [facility] History of Past illness Narrative* Problem Noted Date Resolved Date Primary osteoarthritis of left knee 12/08/2019 11/13/2020 Bruit of left carotid artery 12/05/2019 Last Assessment & Plan: Assessment: pending Carotid US Chronic left shoulder pain 10/04/201709/16 Heartburn 02/27/2017 11/13/2020 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 02/17/2017 12/05/2019 Overview: Added automatically from request for surgery [id number] Acute pain of left knee 12/26/2016 11/14/19 Chronic right shoulder pain 12/26/2016 04/12/2020 Gross hematuria 11/24/2016 11/13/2020 Malignant neoplasm of kidney excluding renal pel vis 10/21/2016 02/27/2017 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, without long-term current use of insulin 09/30/2016 09/30/2016 Neuropathy 09/30/2016 11/13/2020 Last Assessment & Plan: Assessment: stable on rx Asthma with COPD with exacerbation 08/24/2016 02/27/2017 Counseling and coordination of care 12/15/2014 08/24/2016 SUMMARY 11/21/2014 08/24/2016 Overview: Indication for hospital admission/procedure: Aortic aneurysm LVEF: 65% LVH RVF: Normal Important/Relevant PMH/PSH: BAV, Congenital anomaly of aorta, SIVAKUMAR, Asthma, HTN, HPL, DM, anxiety Preoperative Hospital Course Procedure/Surgeries: 11/17/2014 Mini-BAV repair, Ascending aortic replacement Airway Difficulty: No OR Course: Coagulopathy/bleeding requiring correction with 20u cryo, 8u FFP, 4u plts, 3uprbcs and 2 pump runs for repair of aortic cannulation site Pacing wires: out Postoperative Course/General Impression: S/p AVr/Asc aorta replacement. Plan to wean o2, pep, oob, increase diuresis, cont BB, pain and glucose control. Issues to communicate at signout: CT removed CPAP at night echo done CTA done PT rec acute rehab Needs much encouragement wires out 11/23 d/c to acute rehab today Discharge planning 11/21/2014 05/03/2016 Overview: Pt from [place], [place]. PT rec acute rehab; CM working on placement. Leaving for [facility] in-pt rehab today Hypertension 11/20/2014 02/27/2017 Overview: History: pre op on monopril, norv, Assessment: normotensive currently Plan: Cont BB , cont lasix Atelectasis 11/18/2014 11/19/2014 Overview: Bilateral on CXR. A/P: PEP, EZPAP OOBTC. Volume overload 11/18/2014 08/24/2016 Overview: History: post op Assessment: wt up 5 kg from pre op Plan: cont diuresis On mechanically assisted ventilation 11/17/2014 11/19/2014 Overview: Grade 1 airway. WTE when awake and stable. Extubated on DOS. CPAP at night PEP. Cardiac insufficiency following cardiac surgery 11/17/2014 11/20/2014 Overview: Low CI. CVP low. A/p Epi gtt off. Start BB. Pre-op testing 11/14/2014 08/23/2016 Overview: Images from the original note were not included. [facility] Surgeon: Modesto Cifuentes M.D. Informed Consent Completed: Yes STS Score: unsupported CAD: No Is intended procedure a CABG: No - is a beta hue ordered? No - reason: not indicated H & P completed: Yes 10/28/14 PA/LAT: Completed CT: Completed MRI: N/A LE US: N/A Cath: Yes - reviewed: Yes Echo:Completed EKG: Completed EF %: 65 PI's: N/A Carotid: N/A Mapping: N/A Dental: Completed PFT's: N/A No results for input(s): WBC, HB, HCT, PLT, INR, CREAT in the last 72 hours. UA: Normal HCG:N/A ABO/ABO Confirmed: Yes Blood ordered: No SA Swab: Yes - results: Negative Last Dose of Anticoagulation: OTC 11/12/14 Op Note: N/A Pacemaker Check: N/A Consults: none DM: Yes, A1c: 6.6% Cardiac Surgical prep: N/A SIGNATURE: JERSON Tian CHECKED BY: [email or web address] DATE of SERVICE: 11/14/2014 TIME of SERVICE: 10:59 AM discharge planning 11/10/2014 11/12/2014 Overview: 64yo male without any concerns presently Preop testing 11/10/2014 11/12/2014 Overview: Images from the original note were not included. [facility] Surgeon: Modesto Cifuentes M.D. Informed Consent Completed: pending STS Score: unsupported CAD: Yes - CAD on Problem List: Yes Is intended procedure a CABG: No - is a beta hue ordered? No - reason: not indicated H & P completed: Yes PA/LAT: Completed CT: Completed MRI: N/A LE US: N/A Cath: Yes - reviewed: Yes Echo:Completed EKG: Completed EF %: 65 PI's: Completed Carotid: N/A Mapping: N/A Dental: Pending PFT's: Completed No results for input(s): WBC, HB, HCT, PLT, INR, CREAT in the last 72 hours. UA: Normal HCG:N/A ABO/ABO Confirmed: Yes Blood ordered: No SA Swab: Yes - results: Pending Last Dose of Anticoagulation: vit basa LD 11/03 Op Note: N/A Pacemaker Check: N/A Consults: none DM: No Cardiac Surgical prep: N/A SIGNATURE: Kate Smith RN CHECKED BY: DATE of SERVICE: 11/10/2014 TIME of SERVICE: 10:05 AM Right rotator cuff tear 12/31/2013 08/25/19 17 Pain in joint, shoulder region 12/16/2013 0 08/24/2016 Essential hypertension, benign 12/03/2013 0 11/19/2014 Overview: Home RX; Nortvasc, ACEi A/P: NTg gtt to keep MAPS 65-75. Wean off. Hydralazine prn. Start BB when off Epi. Pain in joint, lower leg 04/16/2013 017 Degenerative tear of medial meniscus 04/16/2013 11/13/2020 Anxiety 07/08/2011 11/13/2020 Overview: Home Rx; Prozac. A/p Restarted Prozac. Esophagitis, unspecified 04/23/2009 017 Acute gastritis without mention of hemorrhage 08/24/2016 Trochanteric bursitis 03/05/2009 11/12/2014 Nontoxic uninodular goiter 01/16/200902/24 Overview: 08/13/19 US thyroid right mid-pole thyroid solid nodule 9 x 7 x 4 mm stable since 2016 Last Assessment & Plan: Assessment: under surveillance Nonallopathic lesion of sacr al region, not elsewhere classified 01/02/2009 11/13/2020 Osteoarthrosis, unspecified whether generalized or localized, unspecified site 11/12/2008 11/13/2020 ABSCESS GROIN 07/23/2008 08/23/2016 Obesity, unspecified 07/15/2008 09/16/2020 Pain in joint, pelvic region and thigh 9 08/24/2016 INTRINSIC ASTHMA UNSPECIFIED 09/03/2007 Other seborrheic keratosis 08/07/200708/23 Calcaneal spur 11/13/2020 Generalized anxiety disorder Overview: Anxiety, Generalized Unspecified asthma(493.90) 09/02 Asthma 08/24/2016 documented as of this encounter (statuses as of 11/23/2021) [facility] History of Past illness Narrative* Problem Noted Date Resolved Date Primary osteoarthritis of left knee 12/08/2019 11/13/2020 Bruit of left carotid artery 12/05/2019 Last Assessment & Plan: Assessment: pending Carotid US Chronic left shoulder pain 10/04/201709/16 Heartburn 02/27/2017 11/13/2020 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 02/17/2017 12/05/2019 Overview: Added automatically from request for surgery [id number] Acute pain of left knee 12/26/2016 11/14/19 Chronic right shoulder pain 12/26/2016 04/0 12/2020 Gross hematuria 11/24/2016 11/13/2020 Malignant neoplasm of kidney excluding renal pel vis 10/21/2016 02/27/2017 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, without long-term current use of insulin 09/30/2016 09/30/2016 Neuropathy 09/30/2016 11/13/2020 Last Assessment & Plan: Assessment: stable on rx Asthma with COPD with exacerbation 08/24/2016 02/27/2017 Counseling and coordination of care 12/15/2014 08/24/2016 SUMMARY 11/21/2014 08/24/2016 Overview: Indication for hospital admission/procedure: Aortic aneurysm LVEF: 65% LVH RVF: Normal Important/Relevant PMH/PSH: BAV, Congenital anomaly of aorta, SIVAKUMAR, Asthma, HTN, HPL, DM, anxiety Preoperative Hospital Course Procedure/Surgeries: 11/17/2014 Mini-BAV repair, Ascending aortic replacement Airway Difficulty: No OR Course: Coagulopathy/bleeding requiring correction with 20u cryo, 8u FFP, 4u plts, 3uprbcs and 2 pump runs for repair of aortic cannulation site Pacing wires: out Postoperative Course/General Impression: S/p AVr/Asc aorta replacement. Plan to wean o2, pep, oob, increase diuresis, cont BB, pain and glucose control. Issues to communicate at signout: CT removed CPAP at night echo done CTA done PT rec acute rehab Needs much encouragement wires out 11/23 d/c to acute rehab today Discharge planning 11/21/2014 05/03/2016 Overview: Pt from [place], [place]. PT rec acute rehab; CM working on placement. Leaving for [facility] in-pt rehab today Hypertension 11/20/2014 02/27/2017 Overview: History: pre op on monopril, norv, Assessment: normotensive currently Plan: Cont BB , cont lasix Atelectasis 11/18/2014 11/19/2014 Overview: Bilateral on CXR. A/P: PEP, EZPAP OOBTC. Volume overload 11/18/2014 08/24/2016 Overview: History: post op Assessment: wt up 5 kg from pre op Plan: cont diuresis On mechanically assisted ventilation 11/17/2014 11/19/2014 Overview: Grade 1 airway. WTE when awake and stable. Extubated on DOS. CPAP at night PEP. Cardiac insufficiency following cardiac surgery 11/17/2014 11/20/2014 Overview: Low CI. CVP low. A/p Epi gtt off. Start BB. Pre-op testing 11/14/2014 08/23/2016 Overview: Images from the original note were not included. [facility] Surgeon: Mdoesto Cifuentes M.D. Informed Consent Completed: Yes STS Score: unsupported CAD: No Is intended procedure a CABG: No - is a beta hue ordered? No - reason: not indicated H & P completed: Yes 10/28/14 PA/LAT: Completed CT: Completed MRI: N/A LE US: N/A Cath: Yes - reviewed: Yes Echo:Completed EKG: Completed EF %: 65 PI's: N/A Carotid: N/A Mapping: N/A Dental: Completed PFT's: N/A No results for input(s): WBC, HB, HCT, PLT, INR, CREAT in the last 72 hours. UA: Normal HCG:N/A ABO/ABO Confirmed: Yes Blood ordered: No SA Swab: Yes - results: Negative Last Dose of Anticoagulation: OTC 11/12/14 Op Note: N/A Pacemaker Check: N/A Consults: none DM: Yes, A1c: 6.6% Cardiac Surgical prep: N/A SIGNATURE: JERSON Tian CHECKED BY: [email or web address] DATE of SERVICE: 11/14/2014 TIME of SERVICE: 10:59 AM discharge planning 11/10/2014 11/12/2014 Overview: 64yo male without any concerns presently Preop testing 11/10/2014 11/12/2014 Overview: Images from the original note were not included. [facility] Surgeon: Modesto Cifuentes M.D. Informed Consent Completed: pending STS Score: unsupported CAD: Yes - CAD on Problem List: Yes Is intended procedure a CABG: No - is a beta hue ordered? No - reason: not indicated H & P completed: Yes PA/LAT: Completed CT: Completed MRI: N/A LE US: N/A Cath: Yes - reviewed: Yes Echo:Completed EKG: Completed EF %: 65 PI's: Completed Carotid: N/A Mapping: N/A Dental: Pending PFT's: Completed No results for input(s): WBC, HB, HCT, PLT, INR, CREAT in the last 72 hours. UA: Normal HCG:N/A ABO/ABO Confirmed: Yes Blood ordered: No SA Swab: Yes - results: Pending Last Dose of Anticoagulation: vit basa LD 11/03 Op Note: N/A Pacemaker Check: N/A Consults: none DM: No Cardiac Surgical prep: N/A SIGNATURE: Kate Smith RN CHECKED BY: DATE of SERVICE: 11/10/2014 TIME of SERVICE: 10:05 AM Right rotator cuff tear 12/31/2013 08/25/19 17 Pain in joint, shoulder region 12/16/2013 0 08/24/2016 Essential hypertension, benign 12/03/2013 0 11/19/2014 Overview: Home RX; Nortvasc, ACEi A/P: NTg gtt to keep MAPS 65-75. Wean off. Hydralazine prn. Start BB when off Epi. Pain in joint, lower leg 04/16/2013 017 Degenerative tear of medial meniscus 04/16/2013 11/13/2020 Anxiety 07/08/2011 11/13/2020 Overview: Home Rx; Prozac. A/p Restarted Prozac. Esophagitis, unspecified 04/23/2009 017 Acute gastritis without mention of hemorrhage 08/24/2016 Trochanteric bursitis 03/05/2009 11/12/2014 Nontoxic uninodular goiter 01/16/200902/24 Overview: 08/13/19 US thyroid right mid-pole thyroid solid nodule 9 x 7 x 4 mm stable since 2016 Last Assessment & Plan: Assessment: under surveillance Nonallopathic lesion of sacr al region, not elsewhere classified 01/02/2009 11/13/2020 Osteoarthrosis, unspecified whether generalized or localized, unspecified site 11/12/2008 11/13/2020 ABSCESS GROIN 07/23/2008 08/23/2016 Obesity, unspecified 07/15/2008 09/16/2020 Pain in joint, pelvic region and thigh 9 08/24/2016 INTRINSIC ASTHMA UNSPECIFIED 09/03/2007 Other seborrheic keratosis 08/07/200708/23 Calcaneal spur 11/13/2020 Generalized anxiety disorder Overview: Anxiety, Generalized Unspecified asthma(493.90) 09/02 Asthma 08/24/2016 documented as of this encounter (statuses as of 11/29/2021) [facility]2020 History of Past illness Narrative* Problem Noted Date Resolved Date Primary osteoarthritis of left knee 12/08/2019 11/13/2020 Bruit of left carotid artery 12/05/2019 Last Assessment & Plan: Assessment: pending Carotid US Chronic left shoulder pain 10/04/201709/16 Heartburn 02/27/2017 11/13/2020 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 02/17/2017 12/05/2019 Overview: Added automatically from request for surgery [id number] Acute pain of left knee 12/26/2016 11/14/19 21 Chronic right shoulder pain 12/26/2016 04/0 12/2020 Gross hematuria 11/24/2016 11/13/2020 Malignant neoplasm of kidney excluding renal pel vis 10/21/2016 02/27/2017 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, without long-term current use of insulin 09/30/2016 09/30/2016 Neuropathy 09/30/2016 11/13/2020 Last Assessment & Plan: Assessment: stable on rx Asthma with COPD with exacerbation 08/24/2016 02/27/2017 Counseling and coordination of care 12/15/2014 08/24/2016 SUMMARY 11/21/2014 08/24/2016 Overview: Indication for hospital admission/procedure: Aortic aneurysm LVEF: 65% LVH RVF: Normal Important/Relevant PMH/PSH: BAV, Congenital anomaly of aorta, SIVAKUMAR, Asthma, HTN, HPL, DM, anxiety Preoperative Hospital Course Procedure/Surgeries: 11/17/2014 Mini-BAV repair, Ascending aortic replacement Airway Difficulty: No OR Course: Coagulopathy/bleeding requiring correction with 20u cryo, 8u FFP, 4u plts, 3uprbcs and 2 pump runs for repair of aortic cannulation site Pacing wires: out Postoperative Course/General Impression: S/p AVr/Asc aorta replacement. Plan to wean o2, pep, oob, increase diuresis, cont BB, pain and glucose control. Issues to communicate at signout: CT removed CPAP at night echo done CTA done PT rec acute rehab Needs much encouragement wires out 11/23 d/c to acute rehab today Discharge planning 11/21/2014 05/03/2016 Overview: Pt from [place], [place]. PT rec acute rehab; CM working on placement. Leaving for [facility] in-[facility] rehab today Hypertension 11/20/2014 02/27/2017 Overview: History: pre op on monopril, norv, Assessment: normotensive currently Plan: Cont BB , cont lasix Atelectasis 11/18/2014 11/19/2014 Overview: Bilateral on CXR. A/P: PEP, EZPAP OOBTC. Volume overload 11/18/2014 08/24/2016 Overview: History: post op Assessment: wt up 5 kg from pre op Plan: cont diuresis On mechanically assisted ventilation 11/17/2014 11/19/2014 Overview: Grade 1 airway. WTE when awake and stable. Extubated on DOS. CPAP at night PEP. Cardiac insufficiency following cardiac surgery 11/17/2014 11/20/2014 Overview: Low CI. CVP low. A/p Epi gtt off. Start BB. Pre-op testing 11/14/2014 08/23/2016 Overview: Images from the original note were not included. [facility] Surgeon: Modesto Cifuentes M.D. Informed Consent Completed: Yes STS Score: unsupported CAD: No Is intended procedure a CABG: No - is a beta hue ordered? No - reason: not indicated H & P completed: Yes 10/28/14 PA/LAT: Completed CT: Completed MRI: N/A LE US: N/A Cath: Yes - reviewed: Yes Echo:Completed EKG: Completed EF %: 65 PI's: N/A Carotid: N/A Mapping: N/A Dental: Completed PFT's: N/A No results for input(s): WBC, HB, HCT, PLT, INR, CREAT in the last 72 hours. UA: Normal HCG:N/A ABO/ABO Confirmed: Yes Blood ordered: No SA Swab: Yes - results: Negative Last Dose of Anticoagulation: OTC 11/12/14 Op Note: N/A Pacemaker Check: N/A Consults: none DM: Yes, A1c: 6.6% Cardiac Surgical prep: N/A SIGNATURE: JERSON Tian CHECKED BY: [email or web address] DATE of SERVICE: 11/14/2014 TIME of SERVICE: 10:59 AM discharge planning 11/10/2014 11/12/2014 Overview: 64yo male without any concerns presently Preop testing 11/10/2014 11/12/2014 Overview: Images from the original note were not included. [facility] Surgeon: Modesto Cifuentes M.D. Informed Consent Completed: pending STS Score: unsupported CAD: Yes - CAD on Problem List: Yes Is intended procedure a CABG: No - is a beta hue ordered? No - reason: not indicated H & P completed: Yes PA/LAT: Completed CT: Completed MRI: N/A LE US: N/A Cath: Yes - reviewed: Yes Echo:Completed EKG: Completed EF %: 65 PI's: Completed Carotid: N/A Mapping: N/A Dental: Pending PFT's: Completed No results for input(s): WBC, HB, HCT, PLT, INR, CREAT in the last 72 hours. UA: Normal HCG:N/A ABO/ABO Confirmed: Yes Blood ordered: No SA Swab: Yes - results: Pending Last Dose of Anticoagulation: vit basa LD 11/03 Op Note: N/A Pacemaker Check: N/A Consults: none DM: No Cardiac Surgical prep: N/A SIGNATURE: Kate Smith RN CHECKED BY: DATE of SERVICE: 11/10/2014 TIME of SERVICE: 10:05 AM Right rotator cuff tear 12/31/2013 08/25/19 17 Pain in joint, shoulder region 12/16/2013 0 08/24/2016 Essential hypertension, benign 12/03/2013 0 11/19/2014 Overview: Home RX; Nortvasc, ACEi A/P: NTg gtt to keep MAPS 65-75. Wean off. Hydralazine prn. Start BB when off Epi. Pain in joint, lower leg 04/16/2013 017 Degenerative tear of medial meniscus 04/16/2013 11/13/2020 Anxiety 07/08/2011 11/13/2020 Overview: Home Rx; Prozac. A/p Restarted Prozac. Esophagitis, unspecified 04/23/2009 017 Acute gastritis without mention of hemorrhage 08/24/2016 Trochanteric bursitis 03/05/2009 11/12/2014 Nontoxic uninodular goiter 01/16/200902/24 Overview: 08/13/19 US thyroid right mid-pole thyroid solid nodule 9 x 7 x 4 mm stable since 2016 Last Assessment & Plan: Assessment: under surveillance Nonallopathic lesion of sacr al region, not elsewhere classified 01/02/2009 11/13/2020 Osteoarthrosis, unspecified whether generalized or localized, unspecified site 11/12/2008 11/13/2020 ABSCESS GROIN 07/23/2008 08/23/2016 Obesity, unspecified 07/15/2008 09/16/2020 Pain in joint, pelvic region and thigh 9 08/24/2016 INTRINSIC ASTHMA UNSPECIFIED 09/03/2007 Other seborrheic keratosis 08/07/200708/23 Calcaneal spur 11/13/2020 Generalized anxiety disorder Overview: Anxiety, Generalized Unspecified asthma(493.90) 09/02 Asthma 08/24/2016 documented as of this encounter (statuses as of 12/14/2021) [facility] History of Past illness Narrative* Problem Noted Date Resolved Date Primary osteoarthritis of left knee 12/08/2019 11/13/2020 Bruit of left carotid artery 12/05/2019 Last Assessment & Plan: Assessment: pending Carotid US Chronic left shoulder pain 10/04/201709/16 Heartburn 02/27/2017 11/13/2020 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 02/17/2017 12/05/2019 Overview: Added automatically from request for surgery [id number] Acute pain of left knee 12/26/2016 11/14/19 Chronic right shoulder pain 12/26/2016 04/0 12/2020 Gross hematuria 11/24/2016 11/13/2020 Malignant neoplasm of kidney excluding renal pel vis 10/21/2016 02/27/2017 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, without long-term current use of insulin 09/30/2016 09/30/2016 Neuropathy 09/30/2016 11/13/2020 Last Assessment & Plan: Assessment: stable on rx Asthma with COPD with exacerbation 08/24/2016 02/27/2017 Counseling and coordination of care 12/15/2014 08/24/2016 SUMMARY 11/21/2014 08/24/2016 Overview: Indication for hospital admission/procedure: Aortic aneurysm LVEF: 65% LVH RVF: Normal Important/Relevant PMH/PSH: BAV, Congenital anomaly of aorta, SIVAKUMAR, Asthma, HTN, HPL, DM, anxiety Preoperative Hospital Course Procedure/Surgeries: 11/17/2014 Mini-BAV repair, Ascending aortic replacement Airway Difficulty: No OR Course: Coagulopathy/bleeding requiring correction with 20u cryo, 8u FFP, 4u plts, 3uprbcs and 2 pump runs for repair of aortic cannulation site Pacing wires: out Postoperative Course/General Impression: S/p AVr/Asc aorta replacement. Plan to wean o2, pep, oob, increase diuresis, cont BB, pain and glucose control. Issues to communicate at signout: CT removed CPAP at night echo done CTA done PT rec acute rehab Needs much encouragement wires out 11/23 d/c to acute rehab today Discharge planning 11/21/2014 05/03/2016 Overview: Pt from [place], [place]. PT rec acute rehab; CM working on placement. Leaving for [facility] in-pt rehab today Hypertension 11/20/2014 02/27/2017 Overview: History: pre op on monopril, norv, Assessment: normotensive currently Plan: Cont BB , cont lasix Atelectasis 11/18/2014 11/19/2014 Overview: Bilateral on CXR. A/P: PEP, EZPAP OOBTC. Volume overload 11/18/2014 08/24/2016 Overview: History: post op Assessment: wt up 5 kg from pre op Plan: cont diuresis On mechanically assisted ventilation 11/17/2014 11/19/2014 Overview: Grade 1 airway. WTE when awake and stable. Extubated on DOS. CPAP at night PEP. Cardiac insufficiency following cardiac surgery 11/17/2014 11/20/2014 Overview: Low CI. CVP low. A/p Epi gtt off. Start BB. Pre-op testing 11/14/2014 08/23/2016 Overview: Images from the original note were not included. [facility] Surgeon: Modesto Cifuentes M.D. Informed Consent Completed: Yes STS Score: unsupported CAD: No Is intended procedure a CABG: No - is a beta hue ordered? No - reason: not indicated H & P completed: Yes 10/28/14 PA/LAT: Completed CT: Completed MRI: N/A LE US: N/A Cath: Yes - reviewed: Yes Echo:Completed EKG: Completed EF %: 65 PI's: N/A Carotid: N/A Mapping: N/A Dental: Completed PFT's: N/A No results for input(s): WBC, HB, HCT, PLT, INR, CREAT in the last 72 hours. UA: Normal HCG:N/A ABO/ABO Confirmed: Yes Blood ordered: No SA Swab: Yes - results: Negative Last Dose of Anticoagulation: OTC 11/12/14 Op Note: N/A Pacemaker Check: N/A Consults: none DM: Yes, A1c: 6.6% Cardiac Surgical prep: N/A SIGNATURE: JERSON Tian CHECKED BY: [email or web address] DATE of SERVICE: 11/14/2014 TIME of SERVICE: 10:59 AM discharge planning 11/10/2014 11/12/2014 Overview: 64yo male without any concerns presently Preop testing 11/10/2014 11/12/2014 Overview: Images from the original note were not included. [facility] Surgeon: Modesto Cifuentes M.D. Informed Consent Completed: pending STS Score: unsupported CAD: Yes - CAD on Problem List: Yes Is intended procedure a CABG: No - is a beta hue ordered? No - reason: not indicated H & P completed: Yes PA/LAT: Completed CT: Completed MRI: N/A LE US: N/A Cath: Yes - reviewed: Yes Echo:Completed EKG: Completed EF %: 65 PI's: Completed Carotid: N/A Mapping: N/A Dental: Pending PFT's: Completed No results for input(s): WBC, HB, HCT, PLT, INR, CREAT in the last 72 hours. UA: Normal HCG:N/A ABO/ABO Confirmed: Yes Blood ordered: No SA Swab: Yes - results: Pending Last Dose of Anticoagulation: vit basa LD 11/03 Op Note: N/A Pacemaker Check: N/A Consults: none DM: No Cardiac Surgical prep: N/A SIGNATURE: Kate Smith RN CHECKED BY: DATE of SERVICE: 11/10/2014 TIME of SERVICE: 10:05 AM Right rotator cuff tear 12/31/2013 08/25/19 17 Pain in joint, shoulder region 12/16/2013 0 08/24/2016 Essential hypertension, benign 12/03/2013 0 11/19/2014 Overview: Home RX; Nortvasc, ACEi A/P: NTg gtt to keep MAPS 65-75. Wean off. Hydralazine prn. Start BB when off Epi. Pain in joint, lower leg 04/16/2013 017 Degenerative tear of medial meniscus 04/16/2013 11/13/2020 Anxiety 07/08/2011 11/13/2020 Overview: Home Rx; Prozac. A/p Restarted Prozac. Esophagitis, unspecified 04/23/2009 017 Acute gastritis without mention of hemorrhage 08/24/2016 Trochanteric bursitis 03/05/2009 11/12/2014 Nontoxic uninodular goiter 01/16/200902/24 Overview: 08/13/19 thyroid right mid-pole thyroid solid nodule 9 x 7 x 4 mm stable since 2016 Last Assessment & Plan: Assessment: under surveillance Nonallopathic lesion of sacr al region, not elsewhere classified 01/02/2009 11/13/2020 Osteoarthrosis, unspecified whether generalized or localized, unspecified site 11/12/2008 11/13/2020 ABSCESS GROIN 07/23/2008 08/23/2016 Obesity, unspecified 07/15/2008 09/16/2020 Pain in joint, pelvic region and thigh 9 08/24/2016 INTRINSIC ASTHMA UNSPECIFIED 09/03/2007 Other seborrheic keratosis 08/07/200708/23 Calcaneal spur 11/13/2020 Generalized anxiety disorder Overview: Anxiety, Generalized Unspecified asthma(493.90) 09/02 Asthma 08/24/2016 documented as of this encounter (statuses as of 12/21/2021) [facility] History of Past illness Narrative* Problem Noted Date Resolved Date Primary osteoarthritis of left knee 12/08/2019 11/13/2020 Bruit of left carotid artery 12/05/2019 Last Assessment & Plan: Assessment: pending Carotid US Chronic left shoulder pain 10/04/201709/16 Heartburn 02/27/2017 11/13/2020 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 02/17/2017 12/05/2019 Overview: Added automatically from request for surgery [id number] Acute pain of left knee 12/26/2016 11/14/19 Chronic right shoulder pain 12/26/2016 04/0 12/2020 Gross hematuria 11/24/2016 11/13/2020 Malignant neoplasm of kidney excluding renal pel vis 10/21/2016 02/27/2017 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, without long-term current use of insulin 09/30/2016 09/30/2016 Neuropathy 09/30/2016 11/13/2020 Last Assessment & Plan: Assessment: stable on rx Asthma with COPD with exacerbation 08/24/2016 02/27/2017 Counseling and coordination of care 12/15/2014 08/24/2016 SUMMARY 11/21/2014 08/24/2016 Overview: Indication for hospital admission/procedure: Aortic aneurysm LVEF: 65% LVH RVF: Normal Important/Relevant PMH/PSH: BAV, Congenital anomaly of aorta, SIVAKUMAR, Asthma, HTN, HPL, DM, anxiety Preoperative Hospital Course Procedure/Surgeries: 11/17/2014 Mini-BAV repair, Ascending aortic replacement Airway Difficulty: No OR Course: Coagulopathy/bleeding requiring correction with 20u cryo, 8u FFP, 4u plts, 3uprbcs and 2 pump runs for repair of aortic cannulation site Pacing wires: out Postoperative Course/General Impression: S/p AVr/Asc aorta replacement. Plan to wean o2, pep, oob, increase diuresis, cont BB, pain and glucose control. Issues to communicate at signout: CT removed CPAP at night echo done CTA done PT rec acute rehab Needs much encouragement wires out 11/23 d/c to acute rehab today Discharge planning 11/21/2014 05/03/2016 Overview: Pt from [place], [place]. PT rec acute rehab; CM working on placement. Leaving for [facility] in-pt rehab today Hypertension 11/20/2014 02/27/2017 Overview: History: pre op on monopril, norv, Assessment: normotensive currently Plan: Cont BB , cont lasix Atelectasis 11/18/2014 11/19/2014 Overview: Bilateral on CXR. A/P: PEP, EZPAP OOBTC. Volume overload 11/18/2014 08/24/2016 Overview: History: post op Assessment: wt up 5 kg from pre op Plan: cont diuresis On mechanically assisted ventilation 11/17/2014 11/19/2014 Overview: Grade 1 airway. WTE when awake and stable. Extubated on DOS. CPAP at night PEP. Cardiac insufficiency following cardiac surgery 11/17/2014 11/20/2014 Overview: Low CI. CVP low. A/p Epi gtt off. Start BB. Pre-op testing 11/14/2014 08/23/2016 Overview: Images from the original note were not included. [facility] Surgeon: Modesto Cifuentes M.D. Informed Consent Completed: Yes STS Score: unsupported CAD: No Is intended procedure a CABG: No - is a beta hue ordered? No - reason: not indicated H & P completed: Yes 10/28/14 PA/LAT: Completed CT: Completed MRI: N/A LE US: N/A Cath: Yes - reviewed: Yes Echo:Completed EKG: Completed EF %: 65 PI's: N/A Carotid: N/A Mapping: N/A Dental: Completed PFT's: N/A No results for input(s): WBC, HB, HCT, PLT, INR, CREAT in the last 72 hours. UA: Normal HCG:N/A ABO/ABO Confirmed: Yes Blood ordered: No SA Swab: Yes - results: Negative Last Dose of Anticoagulation: OTC 11/12/14 Op Note: N/A Pacemaker Check: N/A Consults: none DM: Yes, A1c: 6.6% Cardiac Surgical prep: N/A SIGNATURE: JERSON Tian CHECKED BY: [email or web address] DATE of SERVICE: 11/14/2014 TIME of SERVICE: 10:59 AM discharge planning 11/10/2014 11/12/2014 Overview: 64yo male without any concerns presently Preop testing 11/10/2014 11/12/2014 Overview: Images from the original note were not included. [facility] Surgeon: Modesto Cifuentes M.D. Informed Consent Completed: pending STS Score: unsupported CAD: Yes - CAD on Problem List: Yes Is intended procedure a CABG: No - is a beta hue ordered? No - reason: not indicated H & P completed: Yes PA/LAT: Completed CT: Completed MRI: N/A LE US: N/A Cath: Yes - reviewed: Yes Echo:Completed EKG: Completed EF %: 65 PI's: Completed Carotid: N/A Mapping: N/A Dental: Pending PFT's: Completed No results for input(s): WBC, HB, HCT, PLT, INR, CREAT in the last 72 hours. UA: Normal HCG:N/A ABO/ABO Confirmed: Yes Blood ordered: No SA Swab: Yes - results: Pending Last Dose of Anticoagulation: vit basa LD 11/03 Op Note: N/A Pacemaker Check: N/A Consults: none DM: No Cardiac Surgical prep: N/A SIGNATURE: Kate Smith RN CHECKED BY: DATE of SERVICE: 11/10/2014 TIME of SERVICE: 10:05 AM Right rotator cuff tear 12/31/2013 08/25/19 17 Pain in joint, shoulder region 12/16/2013 0 08/24/2016 Essential hypertension, benign 12/03/2013 0 11/19/2014 Overview: Home RX; Nortvasc, ACEi A/P: NTg gtt to keep MAPS 65-75. Wean off. Hydralazine prn. Start BB when off Epi. Pain in joint, lower leg 04/16/2013 017 Degenerative tear of medial meniscus 04/16/2013 11/13/2020 Anxiety 07/08/2011 11/13/2020 Overview: Home Rx; Prozac. A/p Restarted Prozac. Esophagitis, unspecified 04/23/2009 017 Acute gastritis without mention of hemorrhage 08/24/2016 Trochanteric bursitis 03/05/2009 11/12/2014 Nontoxic uninodular goiter 01/16/200902/24 Overview: 08/13/19 thyroid right mid-pole thyroid solid nodule 9 x 7 x 4 mm stable since 2016 Last Assessment & Plan: Assessment: under surveillance Nonallopathic lesion of sacr al region, not elsewhere classified 01/02/2009 11/13/2020 Osteoarthrosis, unspecified whether generalized or localized, unspecified site 11/12/2008 11/13/2020 ABSCESS GROIN 07/23/2008 08/23/2016 Obesity, unspecified 07/15/2008 09/16/2020 Pain in joint, pelvic region and thigh 9 08/24/2016 INTRINSIC ASTHMA UNSPECIFIED 09/03/2007 Other seborrheic keratosis 08/07/200708/23 Calcaneal spur 11/13/2020 Generalized anxiety disorder Overview: Anxiety, Generalized Unspecified asthma(493.90) 09/02 Asthma 08/24/2016 documented as of this encounter (statuses as of 12/23/2021) [facility] History of Past illness Narrative* Problem Noted Date Resolved Date Primary osteoarthritis of left knee 12/08/2019 11/13/2020 Bruit of left carotid artery 12/05/2019 Last Assessment & Plan: Assessment: pending Carotid US Chronic left shoulder pain 10/04/201709/16 Heartburn 02/27/2017 11/13/2020 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 02/17/2017 12/05/2019 Overview: Added automatically from request for surgery [id number] Acute pain of left knee 12/26/2016 11/14/19 Chronic right shoulder pain 12/26/2016 04/0 12/2020 Gross hematuria 11/24/2016 11/13/2020 Malignant neoplasm of kidney excluding renal pel vis 10/21/2016 02/27/2017 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, without long-term current use of insulin 09/30/2016 09/30/2016 Neuropathy 09/30/2016 11/13/2020 Last Assessment & Plan: Assessment: stable on rx Asthma with COPD with exacerbation 08/24/2016 02/27/2017 Counseling and coordination of care 12/15/2014 08/24/2016 SUMMARY 11/21/2014 08/24/2016 Overview: Indication for hospital admission/procedure: Aortic aneurysm LVEF: 65% LVH RVF: Normal Important/Relevant PMH/PSH: BAV, Congenital anomaly of aorta, SIVAKUMAR, Asthma, HTN, HPL, DM, anxiety Preoperative Hospital Course Procedure/Surgeries: 11/17/2014 Mini-BAV repair, Ascending aortic replacement Airway Difficulty: No OR Course: Coagulopathy/bleeding requiring correction with 20u cryo, 8u FFP, 4u plts, 3uprbcs and 2 pump runs for repair of aortic cannulation site Pacing wires: out Postoperative Course/General Impression: S/p AVr/Asc aorta replacement. Plan to wean o2, pep, oob, increase diuresis, cont BB, pain and glucose control. Issues to communicate at signout: CT removed CPAP at night echo done CTA done PT rec acute rehab Needs much encouragement wires out 11/23 d/c to acute rehab today Discharge planning 11/21/2014 05/03/2016 Overview: Pt from [place], [place]. PT rec acute rehab; CM working on placement. Leaving for [facility] in-pt rehab today Hypertension 11/20/2014 02/27/2017 Overview: History: pre op on monopril, norv, Assessment: normotensive currently Plan: Cont BB , cont lasix Atelectasis 11/18/2014 11/19/2014 Overview: Bilateral on CXR. A/P: PEP, EZPAP OOBTC. Volume overload 11/18/2014 08/24/2016 Overview: History: post op Assessment: wt up 5 kg from pre op Plan: cont diuresis On mechanically assisted ventilation 11/17/2014 11/19/2014 Overview: Grade 1 airway. WTE when awake and stable. Extubated on DOS. CPAP at night PEP. Cardiac insufficiency following cardiac surgery 11/17/2014 11/20/2014 Overview: Low CI. CVP low. A/p Epi gtt off. Start BB. Pre-op testing 11/14/2014 08/23/2016 Overview: Images from the original note were not included. [facility] Surgeon: Modesto Cifuentes M.D. Informed Consent Completed: Yes STS Score: unsupported CAD: No Is intended procedure a CABG: No - is a beta hue ordered? No - reason: not indicated H & P completed: Yes 10/28/14 PA/LAT: Completed CT: Completed MRI: N/A LE US: N/A Cath: Yes - reviewed: Yes Echo:Completed EKG: Completed EF %: 65 PI's: N/A Carotid: N/A Mapping: N/A Dental: Completed PFT's: N/A No results for input(s): WBC, HB, HCT, PLT, INR, CREAT in the last 72 hours. UA: Normal HCG:N/A ABO/ABO Confirmed: Yes Blood ordered: No SA Swab: Yes - results: Negative Last Dose of Anticoagulation: OTC 11/12/14 Op Note: N/A Pacemaker Check: N/A Consults: none DM: Yes, A1c: 6.6% Cardiac Surgical prep: N/A SIGNATURE: JERSON Tian CHECKED BY: [email or web address] DATE of SERVICE: 11/14/2014 TIME of SERVICE: 10:59 AM discharge planning 11/10/2014 11/12/2014 Overview: 64yo male without any concerns presently Preop testing 11/10/2014 11/12/2014 Overview: Images from the original note were not included. [facility] Surgeon: Modesto Cifuentes M.D. Informed Consent Completed: pending STS Score: unsupported CAD: Yes - CAD on Problem List: Yes Is intended procedure a CABG: No - is a beta hue ordered? No - reason: not indicated H & P completed: Yes PA/LAT: Completed CT: Completed MRI: N/A LE US: N/A Cath: Yes - reviewed: Yes Echo:Completed EKG: Completed EF %: 65 PI's: Completed Carotid: N/A Mapping: N/A Dental: Pending PFT's: Completed No results for input(s): WBC, HB, HCT, PLT, INR, CREAT in the last 72 hours. UA: Normal HCG:N/A ABO/ABO Confirmed: Yes Blood ordered: No SA Swab: Yes - results: Pending Last Dose of Anticoagulation: vit basa LD 11/03 Op Note: N/A Pacemaker Check: N/A Consults: none DM: No Cardiac Surgical prep: N/A SIGNATURE: Kate Smith RN CHECKED BY: DATE of SERVICE: 11/10/2014 TIME of SERVICE: 10:05 AM Right rotator cuff tear 12/31/2013 08/25/19 17 Pain in joint, shoulder region 12/16/2013 0 08/24/2016 Essential hypertension, benign 12/03/2013 0 11/19/2014 Overview: Home RX; Nortvasc, ACEi A/P: NTg gtt to keep MAPS 65-75. Wean off. Hydralazine prn. Start BB when off Epi. Pain in joint, lower leg 04/16/2013 017 Degenerative tear of medial meniscus 04/16/2013 11/13/2020 Anxiety 07/08/2011 11/13/2020 Overview: Home Rx; Prozac. A/p Restarted Prozac. Esophagitis, unspecified 04/23/2009 017 Acute gastritis without mention of hemorrhage 08/24/2016 Trochanteric bursitis 03/05/2009 11/12/2014 Nontoxic uninodular goiter 01/16/200902/24 Overview: 08/13/19 US thyroid right mid-pole thyroid solid nodule 9 x 7 x 4 mm stable since 2016 Last Assessment & Plan: Assessment: under surveillance Nonallopathic lesion of sacr al region, not elsewhere classified 01/02/2009 11/13/2020 Osteoarthrosis, unspecified whether generalized or localized, unspecified site 11/12/2008 11/13/2020 ABSCESS GROIN 07/23/2008 08/23/2016 Obesity, unspecified 07/15/2008 09/16/2020 Pain in joint, pelvic region and thigh 9 08/24/2016 INTRINSIC ASTHMA UNSPECIFIED 09/03/2007 Other seborrheic keratosis 08/07/200708/23 Calcaneal spur 11/13/2020 Generalized anxiety disorder Overview: Anxiety, Generalized Unspecified asthma(493.90) 09/02 Asthma 08/24/2016 documented as of this encounter (statuses as of 12/24/2021) [facility]2020 History of Past illness Narrative* Problem Noted Date Resolved Date Primary osteoarthritis of left knee 12/08/2019 11/13/2020 Bruit of left carotid artery 12/05/2019 Last Assessment & Plan: Assessment: pending Carotid US Chronic left shoulder pain 10/04/201709/16 Heartburn 02/27/2017 11/13/2020 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 02/17/2017 12/05/2019 Overview: Added automatically from request for surgery [id number] Acute pain of left knee 12/26/2016 11/14/19 Chronic right shoulder pain 12/26/2016 04/0 12/2020 Gross hematuria 11/24/2016 11/13/2020 Malignant neoplasm of kidney excluding renal pel vis 10/21/2016 02/27/2017 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, without long-term current use of insulin 09/30/2016 09/30/2016 Neuropathy 09/30/2016 11/13/2020 Last Assessment & Plan: Assessment: stable on rx Asthma with COPD with exacerbation 08/24/2016 02/27/2017 Counseling and coordination of care 12/15/2014 08/24/2016 SUMMARY 11/21/2014 08/24/2016 Overview: Indication for hospital admission/procedure: Aortic aneurysm LVEF: 65% LVH RVF: Normal Important/Relevant PMH/PSH: BAV, Congenital anomaly of aorta, SIVAKUMAR, Asthma, HTN, HPL, DM, anxiety Preoperative Hospital Course Procedure/Surgeries: 11/17/2014 Mini-BAV repair, Ascending aortic replacement Airway Difficulty: No OR Course: Coagulopathy/bleeding requiring correction with 20u cryo, 8u FFP, 4u plts, 3uprbcs and 2 pump runs for repair of aortic cannulation site Pacing wires: out Postoperative Course/General Impression: S/p AVr/Asc aorta replacement. Plan to wean o2, pep, oob, increase diuresis, cont BB, pain and glucose control. Issues to communicate at signout: CT removed CPAP at night echo done CTA done PT rec acute rehab Needs much encouragement wires out 11/23 d/c to acute rehab today Discharge planning 11/21/2014 05/03/2016 Overview: Pt from [place], [place]. PT rec acute rehab; CM working on placement. Leaving for [facility] in-pt rehab today Hypertension 11/20/2014 02/27/2017 Overview: History: pre op on monopril, norv, Assessment: normotensive currently Plan: Cont BB , cont lasix Atelectasis 11/18/2014 11/19/2014 Overview: Bilateral on CXR. A/P: PEP, EZPAP OOBTC. Volume overload 11/18/2014 08/24/2016 Overview: History: post op Assessment: wt up 5 kg from pre op Plan: cont diuresis On mechanically assisted ventilation 11/17/2014 11/19/2014 Overview: Grade 1 airway. WTE when awake and stable. Extubated on DOS. CPAP at night PEP. Cardiac insufficiency following cardiac surgery 11/17/2014 11/20/2014 Overview: Low CI. CVP low. A/p Epi gtt off. Start BB. Pre-op testing 11/14/2014 08/23/2016 Overview: Images from the original note were not included. [facility] Surgeon: Modesto Cifuentes M.D. Informed Consent Completed: Yes STS Score: unsupported CAD: No Is intended procedure a CABG: No - is a beta hue ordered? No - reason: not indicated H & P completed: Yes 10/28/14 PA/LAT: Completed CT: Completed MRI: N/A LE US: N/A Cath: Yes - reviewed: Yes Echo:Completed EKG: Completed EF %: 65 PI's: N/A Carotid: N/A Mapping: N/A Dental: Completed PFT's: N/A No results for input(s): WBC, HB, HCT, PLT, INR, CREAT in the last 72 hours. UA: Normal HCG:N/A ABO/ABO Confirmed: Yes Blood ordered: No SA Swab: Yes - results: Negative Last Dose of Anticoagulation: OTC 11/12/14 Op Note: N/A Pacemaker Check: N/A Consults: none DM: Yes, A1c: 6.6% Cardiac Surgical prep: N/A SIGNATURE: JERSON Tian CHECKED BY: [email or web address] DATE of SERVICE: 11/14/2014 TIME of SERVICE: 10:59 AM discharge planning 11/10/2014 11/12/2014 Overview: 64yo male without any concerns presently Preop testing 11/10/2014 11/12/2014 Overview: Images from the original note were not included. [facility] Surgeon: Modesto Cifuentes M.D. Informed Consent Completed: pending STS Score: unsupported CAD: Yes - CAD on Problem List: Yes Is intended procedure a CABG: No - is a beta hue ordered? No - reason: not indicated H & P completed: Yes PA/LAT: Completed CT: Completed MRI: N/A LE US: N/A Cath: Yes - reviewed: Yes Echo:Completed EKG: Completed EF %: 65 PI's: Completed Carotid: N/A Mapping: N/A Dental: Pending PFT's: Completed No results for input(s): WBC, HB, HCT, PLT, INR, CREAT in the last 72 hours. UA: Normal HCG:N/A ABO/ABO Confirmed: Yes Blood ordered: No SA Swab: Yes - results: Pending Last Dose of Anticoagulation: vit basa LD 11/03 Op Note: N/A Pacemaker Check: N/A Consults: none DM: No Cardiac Surgical prep: N/A SIGNATURE: Kate Smith RN CHECKED BY: DATE of SERVICE: 11/10/2014 TIME of SERVICE: 10:05 AM Right rotator cuff tear 12/31/2013 08/25/19 17 Pain in joint, shoulder region 12/16/2013 0 08/24/2016 Essential hypertension, benign 12/03/2013 0 11/19/2014 Overview: Home RX; Nortvasc, ACEi A/P: NTg gtt to keep MAPS 65-75. Wean off. Hydralazine prn. Start BB when off Epi. Pain in joint, lower leg 04/16/2013 017 Degenerative tear of medial meniscus 04/16/2013 11/13/2020 Anxiety 07/08/2011 11/13/2020 Overview: Home Rx; Prozac. A/p Restarted Prozac. Esophagitis, unspecified 04/23/2009 017 Acute gastritis without mention of hemorrhage 08/24/2016 Trochanteric bursitis 03/05/2009 11/12/2014 Nontoxic uninodular goiter 01/16/200902/24 Overview: 08/13/19 US thyroid right mid-pole thyroid solid nodule 9 x 7 x 4 mm stable since 2016 Last Assessment & Plan: Assessment: under surveillance Nonallopathic lesion of sacr al region, not elsewhere classified 01/02/2009 11/13/2020 Osteoarthrosis, unspecified whether generalized or localized, unspecified site 11/12/2008 11/13/2020 ABSCESS GROIN 07/23/2008 08/23/2016 Obesity, unspecified 07/15/2008 09/16/2020 Pain in joint, pelvic region and thigh 9 08/24/2016 INTRINSIC ASTHMA UNSPECIFIED 09/03/2007 Other seborrheic keratosis 08/07/200708/23 Calcaneal spur 11/13/2020 Generalized anxiety disorder Overview: Anxiety, Generalized Unspecified asthma(493.90) 09/02 Asthma 08/24/2016 documented as of this encounter (statuses as of 01/04/2022) [facility] History of Past illness Narrative* Problem Noted Date Resolved Date Primary osteoarthritis of left knee 12/08/2019 11/13/2020 Bruit of left carotid artery 12/05/2019 Last Assessment & Plan: Assessment: pending Carotid US Chronic left shoulder pain 10/04/201709/16 Heartburn 02/27/2017 11/13/2020 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 02/17/2017 12/05/2019 Overview: Added automatically from request for surgery [id number] Acute pain of left knee 12/26/2016 11/14/19 Chronic right shoulder pain 12/26/2016 04/0 12/2020 Gross hematuria 11/24/2016 11/13/2020 Malignant neoplasm of kidney excluding renal pel vis 10/21/2016 02/27/2017 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, without long-term current use of insulin 09/30/2016 09/30/2016 Neuropathy 09/30/2016 11/13/2020 Last Assessment & Plan: Assessment: stable on rx Asthma with COPD with exacerbation 08/24/2016 02/27/2017 Counseling and coordination of care 12/15/2014 08/24/2016 SUMMARY 11/21/2014 08/24/2016 Overview: Indication for hospital admission/procedure: Aortic aneurysm LVEF: 65% LVH RVF: Normal Important/Relevant PMH/PSH: BAV, Congenital anomaly of aorta, SIVAKUMAR, Asthma, HTN, HPL, DM, anxiety Preoperative Hospital Course Procedure/Surgeries: 11/17/2014 Mini-BAV repair, Ascending aortic replacement Airway Difficulty: No OR Course: Coagulopathy/bleeding requiring correction with 20u cryo, 8u FFP, 4u plts, 3uprbcs and 2 pump runs for repair of aortic cannulation site Pacing wires: out Postoperative Course/General Impression: S/p AVr/Asc aorta replacement. Plan to wean o2, pep, oob, increase diuresis, cont BB, pain and glucose control. Issues to communicate at signout: CT removed CPAP at night echo done CTA done PT rec acute rehab Needs much encouragement wires out 11/23 d/c to acute rehab today Discharge planning 11/21/2014 05/03/2016 Overview: Pt from [place], [place]. PT rec acute rehab; CM working on placement. Leaving for [facility] in-pt rehab today Hypertension 11/20/2014 02/27/2017 Overview: History: pre op on monopril, norv, Assessment: normotensive currently Plan: Cont BB , cont lasix Atelectasis 11/18/2014 11/19/2014 Overview: Bilateral on CXR. A/P: PEP, EZPAP OOBTC. Volume overload 11/18/2014 08/24/2016 Overview: History: post op Assessment: wt up 5 kg from pre op Plan: cont diuresis On mechanically assisted ventilation 11/17/2014 11/19/2014 Overview: Grade 1 airway. WTE when awake and stable. Extubated on DOS. CPAP at night PEP. Cardiac insufficiency following cardiac surgery 11/17/2014 11/20/2014 Overview: Low CI. CVP low. A/p Epi gtt off. Start BB. Pre-op testing 11/14/2014 08/23/2016 Overview: Images from the original note were not included. [facility] Surgeon: Modesto Cifuentes M.D. Informed Consent Completed: Yes STS Score: unsupported CAD: No Is intended procedure a CABG: No - is a beta hue ordered? No - reason: not indicated H & P completed: Yes 10/28/14 PA/LAT: Completed CT: Completed MRI: N/A LE US: N/A Cath: Yes - reviewed: Yes Echo:Completed EKG: Completed EF %: 65 PI's: N/A Carotid: N/A Mapping: N/A Dental: Completed PFT's: N/A No results for input(s): WBC, HB, HCT, PLT, INR, CREAT in the last 72 hours. UA: Normal HCG:N/A ABO/ABO Confirmed: Yes Blood ordered: No SA Swab: Yes - results: Negative Last Dose of Anticoagulation: OTC 11/12/14 Op Note: N/A Pacemaker Check: N/A Consults: none DM: Yes, A1c: 6.6% Cardiac Surgical prep: N/A SIGNATURE: JERSON Tian CHECKED BY: [email or web address] DATE of SERVICE: 11/14/2014 TIME of SERVICE: 10:59 AM discharge planning 11/10/2014 11/12/2014 Overview: 64yo male without any concerns presently Preop testing 11/10/2014 11/12/2014 Overview: Images from the original note were not included. [facility] Surgeon: Modesto Cifuentes M.D. Informed Consent Completed: pending STS Score: unsupported CAD: Yes - CAD on Problem List: Yes Is intended procedure a CABG: No - is a beta hue ordered? No - reason: not indicated H & P completed: Yes PA/LAT: Completed CT: Completed MRI: N/A LE US: N/A Cath: Yes - reviewed: Yes Echo:Completed EKG: Completed EF %: 65 PI's: Completed Carotid: N/A Mapping: N/A Dental: Pending PFT's: Completed No results for input(s): WBC, HB, HCT, PLT, INR, CREAT in the last 72 hours. UA: Normal HCG:N/A ABO/ABO Confirmed: Yes Blood ordered: No SA Swab: Yes - results: Pending Last Dose of Anticoagulation: vit basa LD 11/03 Op Note: N/A Pacemaker Check: N/A Consults: none DM: No Cardiac Surgical prep: N/A SIGNATURE: Kate Smith RN CHECKED BY: DATE of SERVICE: 11/10/2014 TIME of SERVICE: 10:05 AM Right rotator cuff tear 12/31/2013 08/25/19 17 Pain in joint, shoulder region 12/16/2013 0 08/24/2016 Essential hypertension, benign 12/03/2013 0 11/19/2014 Overview: Home RX; Nortvasc, ACEi A/P: NTg gtt to keep MAPS 65-75. Wean off. Hydralazine prn. Start BB when off Epi. Pain in joint, lower leg 04/16/2013 017 Degenerative tear of medial meniscus 04/16/2013 11/13/2020 Anxiety 07/08/2011 11/13/2020 Overview: Home Rx; Prozac. A/p Restarted Prozac. Esophagitis, unspecified 04/23/2009 017 Acute gastritis without mention of hemorrhage 08/24/2016 Trochanteric bursitis 03/05/2009 11/12/2014 Nontoxic uninodular goiter 01/16/200902/24 Overview: 08/13/19 US thyroid right mid-pole thyroid solid nodule 9 x 7 x 4 mm stable since 2016 Last Assessment & Plan: Assessment: under surveillance Nonallopathic lesion of sacr al region, not elsewhere classified 01/02/2009 11/13/2020 Osteoarthrosis, unspecified whether generalized or localized, unspecified site 11/12/2008 11/13/2020 ABSCESS GROIN 07/23/2008 08/23/2016 Obesity, unspecified 07/15/2008 09/16/2020 Pain in joint, pelvic region and thigh 9 08/24/2016 INTRINSIC ASTHMA UNSPECIFIED 09/03/2007 Other seborrheic keratosis 08/07/200708/23 Calcaneal spur 11/13/2020 Generalized anxiety disorder Overview: Anxiety, Generalized Unspecified asthma(493.90) 09/02 Asthma 08/24/2016 documented as of this encounter (statuses as of 01/05/2022) [facility] History of Past illness Narrative* Problem Noted Date Resolved Date Primary osteoarthritis of left knee 12/08/2019 11/13/2020 Bruit of left carotid artery 12/05/2019 Last Assessment & Plan: Assessment: pending Carotid US Chronic left shoulder pain 10/04/201709/16 Heartburn 02/27/2017 11/13/2020 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 02/17/2017 12/05/2019 Overview: Added automatically from request for surgery [id number] Acute pain of left knee 12/26/2016 11/14/19 21 Chronic right shoulder pain 12/26/2016 04/0 12/2020 Gross hematuria 11/24/2016 11/13/2020 Malignant neoplasm of kidney excluding renal pel vis 10/21/2016 02/27/2017 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, without long-term current use of insulin 09/30/2016 09/30/2016 Neuropathy 09/30/2016 11/13/2020 Last Assessment & Plan: Assessment: stable on rx Asthma with COPD with exacerbation 08/24/2016 02/27/2017 Counseling and coordination of care 12/15/2014 08/24/2016 SUMMARY 11/21/2014 08/24/2016 Overview: Indication for hospital admission/procedure: Aortic aneurysm LVEF: 65% LVH RVF: Normal Important/Relevant PMH/PSH: BAV, Congenital anomaly of aorta, SIVAKUMAR, Asthma, HTN, HPL, DM, anxiety Preoperative Hospital Course Procedure/Surgeries: 11/17/2014 Mini-BAV repair, Ascending aortic replacement Airway Difficulty: No OR Course: Coagulopathy/bleeding requiring correction with 20u cryo, 8u FFP, 4u plts, 3uprbcs and 2 pump runs for repair of aortic cannulation site Pacing wires: out Postoperative Course/General Impression: S/p AVr/Asc aorta replacement. Plan to wean o2, pep, oob, increase diuresis, cont BB, pain and glucose control. Issues to communicate at signout: CT removed CPAP at night echo done CTA done PT rec acute rehab Needs much encouragement wires out 11/23 d/c to acute rehab today Discharge planning 11/21/2014 05/03/2016 Overview: Pt from [place], [place]. PT rec acute rehab; CM working on placement. Leaving for [facility] in-pt rehab today Hypertension 11/20/2014 02/27/2017 Overview: History: pre op on monopril, norv, Assessment: normotensive currently Plan: Cont BB , cont lasix Atelectasis 11/18/2014 11/19/2014 Overview: Bilateral on CXR. A/P: PEP, EZPAP OOBTC. Volume overload 11/18/2014 08/24/2016 Overview: History: post op Assessment: wt up 5 kg from pre op Plan: cont diuresis On mechanically assisted ventilation 11/17/2014 11/19/2014 Overview: Grade 1 airway. WTE when awake and stable. Extubated on DOS. CPAP at night PEP. Cardiac insufficiency following cardiac surgery 11/17/2014 11/20/2014 Overview: Low CI. CVP low. A/p Epi gtt off. Start BB. Pre-op testing 11/14/2014 08/23/2016 Overview: Images from the original note were not included. [facility] Surgeon: Modesto Cifuentes M.D. Informed Consent Completed: Yes STS Score: unsupported CAD: No Is intended procedure a CABG: No - is a beta hue ordered? No - reason: not indicated H & P completed: Yes 10/28/14 PA/LAT: Completed CT: Completed MRI: N/A LE US: N/A Cath: Yes - reviewed: Yes Echo:Completed EKG: Completed EF %: 65 PI's: N/A Carotid: N/A Mapping: N/A Dental: Completed PFT's: N/A No results for input(s): WBC, HB, HCT, PLT, INR, CREAT in the last 72 hours. UA: Normal HCG:N/A ABO/ABO Confirmed: Yes Blood ordered: No SA Swab: Yes - results: Negative Last Dose of Anticoagulation: OTC 11/12/14 Op Note: N/A Pacemaker Check: N/A Consults: none DM: Yes, A1c: 6.6% Cardiac Surgical prep: N/A SIGNATURE: JERSON Tian CHECKED BY: [email or web address] DATE of SERVICE: 11/14/2014 TIME of SERVICE: 10:59 AM discharge planning 11/10/2014 11/12/2014 Overview: 64yo male without any concerns presently Preop testing 11/10/2014 11/12/2014 Overview: Images from the original note were not included. [facility] Surgeon: Modesto Cifuentes M.D. Informed Consent Completed: pending STS Score: unsupported CAD: Yes - CAD on Problem List: Yes Is intended procedure a CABG: No - is a beta hue ordered? No - reason: not indicated H & P completed: Yes PA/LAT: Completed CT: Completed MRI: N/A LE US: N/A Cath: Yes - reviewed: Yes Echo:Completed EKG: Completed EF %: 65 PI's: Completed Carotid: N/A Mapping: N/A Dental: Pending PFT's: Completed No results for input(s): WBC, HB, HCT, PLT, INR, CREAT in the last 72 hours. UA: Normal HCG:N/A ABO/ABO Confirmed: Yes Blood ordered: No SA Swab: Yes - results: Pending Last Dose of Anticoagulation: vit basa LD 11/03 Op Note: N/A Pacemaker Check: N/A Consults: none DM: No Cardiac Surgical prep: N/A SIGNATURE: Kate Smith RN CHECKED BY: DATE of SERVICE: 11/10/2014 TIME of SERVICE: 10:05 AM Right rotator cuff tear 12/31/2013 08/25/19 17 Pain in joint, shoulder region 12/16/2013 0 08/24/2016 Essential hypertension, benign 12/03/2013 0 11/19/2014 Overview: Home RX; Nortvasc, ACEi A/P: NTg gtt to keep MAPS 65-75. Wean off. Hydralazine prn. Start BB when off Epi. Pain in joint, lower leg 04/16/2013 017 Degenerative tear of medial meniscus 04/16/2013 11/13/2020 Anxiety 07/08/2011 11/13/2020 Overview: Home Rx; Prozac. A/p Restarted Prozac. Esophagitis, unspecified 04/23/2009 017 Acute gastritis without mention of hemorrhage 08/24/2016 Trochanteric bursitis 03/05/2009 11/12/2014 Nontoxic uninodular goiter 01/16/200902/24 Overview: 08/13/19 US thyroid right mid-pole thyroid solid nodule 9 x 7 x 4 mm stable since 2016 Last Assessment & Plan: Assessment: under surveillance Nonallopathic lesion of sacr al region, not elsewhere classified 01/02/2009 11/13/2020 Osteoarthrosis, unspecified whether generalized or localized, unspecified site 11/12/2008 11/13/2020 ABSCESS GROIN 07/23/2008 08/23/2016 Obesity, unspecified 07/15/2008 09/16/2020 Pain in joint, pelvic region and thigh 9 08/24/2016 INTRINSIC ASTHMA UNSPECIFIED 09/03/2007 Other seborrheic keratosis 08/07/200708/23 Calcaneal spur 11/13/2020 Generalized anxiety disorder Overview: Anxiety, Generalized Unspecified asthma(493.90) 09/02 Asthma 08/24/2016 documented as of this encounter (statuses as of 01/07/2022) [facility] History of Past illness Narrative* Problem Noted Date Resolved Date Primary osteoarthritis of left knee 12/08/2019 11/13/2020 Bruit of left carotid artery 12/05/2019 Last Assessment & Plan: Assessment: pending Carotid US Chronic left shoulder pain 10/04/201709/16 Heartburn 02/27/2017 11/13/2020 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 02/17/2017 12/05/2019 Overview: Added automatically from request for surgery [id number] Acute pain of left knee 12/26/2016 11/14/19 Chronic right shoulder pain 12/26/2016 04/0 12/2020 Gross hematuria 11/24/2016 11/13/2020 Malignant neoplasm of kidney excluding renal pel vis 10/21/2016 02/27/2017 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, without long-term current use of insulin 09/30/2016 09/30/2016 Neuropathy 09/30/2016 11/13/2020 Last Assessment & Plan: Assessment: stable on rx Asthma with COPD with exacerbation 08/24/2016 02/27/2017 Counseling and coordination of care 12/15/2014 08/24/2016 SUMMARY 11/21/2014 08/24/2016 Overview: Indication for hospital admission/procedure: Aortic aneurysm LVEF: 65% LVH RVF: Normal Important/Relevant PMH/PSH: BAV, Congenital anomaly of aorta, SIVAKUMAR, Asthma, HTN, HPL, DM, anxiety Preoperative Hospital Course Procedure/Surgeries: 11/17/2014 Mini-BAV repair, Ascending aortic replacement Airway Difficulty: No OR Course: Coagulopathy/bleeding requiring correction with 20u cryo, 8u FFP, 4u plts, 3uprbcs and 2 pump runs for repair of aortic cannulation site Pacing wires: out Postoperative Course/General Impression: S/p AVr/Asc aorta replacement. Plan to wean o2, pep, oob, increase diuresis, cont BB, pain and glucose control. Issues to communicate at signout: CT removed CPAP at night echo done CTA done PT rec acute rehab Needs much encouragement wires out 11/23 d/c to acute rehab today Discharge planning 11/21/2014 05/03/2016 Overview: Pt from [place], [place]. PT rec acute rehab; CM working on placement. Leaving for [facility] in-pt rehab today Hypertension 11/20/2014 02/27/2017 Overview: History: pre op on monopril, norv, Assessment: normotensive currently Plan: Cont BB , cont lasix Atelectasis 11/18/2014 11/19/2014 Overview: Bilateral on CXR. A/P: PEP, EZPAP OOBTC. Volume overload 11/18/2014 08/24/2016 Overview: History: post op Assessment: wt up 5 kg from pre op Plan: cont diuresis On mechanically assisted ventilation 11/17/2014 11/19/2014 Overview: Grade 1 airway. WTE when awake and stable. Extubated on DOS. CPAP at night PEP. Cardiac insufficiency following cardiac surgery 11/17/2014 11/20/2014 Overview: Low CI. CVP low. A/p Epi gtt off. Start BB. Pre-op testing 11/14/2014 08/23/2016 Overview: Images from the original note were not included. [facility] Surgeon: Modesto Cifuentes M.D. Informed Consent Completed: Yes STS Score: unsupported CAD: No Is intended procedure a CABG: No - is a beta hue ordered? No - reason: not indicated H & P completed: Yes 10/28/14 PA/LAT: Completed CT: Completed MRI: N/A LE US: N/A Cath: Yes - reviewed: Yes Echo:Completed EKG: Completed EF %: 65 PI's: N/A Carotid: N/A Mapping: N/A Dental: Completed PFT's: N/A No results for input(s): WBC, HB, HCT, PLT, INR, CREAT in the last 72 hours. UA: Normal HCG:N/A ABO/ABO Confirmed: Yes Blood ordered: No SA Swab: Yes - results: Negative Last Dose of Anticoagulation: OTC 11/12/14 Op Note: N/A Pacemaker Check: N/A Consults: none DM: Yes, A1c: 6.6% Cardiac Surgical prep: N/A SIGNATURE: JERSON Tian CHECKED BY: [email or web address] DATE of SERVICE: 11/14/2014 TIME of SERVICE: 10:59 AM discharge planning 11/10/2014 11/12/2014 Overview: 64yo male without any concerns presently Preop testing 11/10/2014 11/12/2014 Overview: Images from the original note were not included. [facility] Surgeon: Modesto Cifuentes M.D. Informed Consent Completed: pending STS Score: unsupported CAD: Yes - CAD on Problem List: Yes Is intended procedure a CABG: No - is a beta hue ordered? No - reason: not indicated H & P completed: Yes PA/LAT: Completed CT: Completed MRI: N/A LE US: N/A Cath: Yes - reviewed: Yes Echo:Completed EKG: Completed EF %: 65 PI's: Completed Carotid: N/A Mapping: N/A Dental: Pending PFT's: Completed No results for input(s): WBC, HB, HCT, PLT, INR, CREAT in the last 72 hours. UA: Normal HCG:N/A ABO/ABO Confirmed: Yes Blood ordered: No SA Swab: Yes - results: Pending Last Dose of Anticoagulation: vit basa LD 11/03 Op Note: N/A Pacemaker Check: N/A Consults: none DM: No Cardiac Surgical prep: N/A SIGNATURE: Kate Smith RN CHECKED BY: DATE of SERVICE: 11/10/2014 TIME of SERVICE: 10:05 AM Right rotator cuff tear 12/31/2013 08/25/19 17 Pain in joint, shoulder region 12/16/2013 0 08/24/2016 Essential hypertension, benign 12/03/2013 0 11/19/2014 Overview: Home RX; Nortvasc, ACEi A/P: NTg gtt to keep MAPS 65-75. Wean off. Hydralazine prn. Start BB when off Epi. Pain in joint, lower leg 04/16/2013 017 Degenerative tear of medial meniscus 04/16/2013 11/13/2020 Anxiety 07/08/2011 11/13/2020 Overview: Home Rx; Prozac. A/p Restarted Prozac. Esophagitis, unspecified 04/23/2009 017 Acute gastritis without mention of hemorrhage 08/24/2016 Trochanteric bursitis 03/05/2009 11/12/2014 Nontoxic uninodular goiter 01/16/200902/24 Overview: 08/13/19 thyroid right mid-pole thyroid solid nodule 9 x 7 x 4 mm stable since 2016 Last Assessment & Plan: Assessment: under surveillance Nonallopathic lesion of sacr al region, not elsewhere classified 01/02/2009 11/13/2020 Osteoarthrosis, unspecified whether generalized or localized, unspecified site 11/12/2008 11/13/2020 ABSCESS GROIN 07/23/2008 08/23/2016 Obesity, unspecified 07/15/2008 09/16/2020 Pain in joint, pelvic region and thigh 9 08/24/2016 INTRINSIC ASTHMA UNSPECIFIED 09/03/2007 Other seborrheic keratosis 08/07/200708/23 Calcaneal spur 11/13/2020 Generalized anxiety disorder Overview: Anxiety, Generalized Unspecified asthma(493.90) 09/02 Asthma 08/24/2016 documented as of this encounter (statuses as of 01/10/2022) [facility]2020 History of Past illness Narrative* Problem Noted Date Resolved Date Primary osteoarthritis of left knee 12/08/2019 11/13/2020 Bruit of left carotid artery 12/05/2019 Last Assessment & Plan: Assessment: pending Carotid US Chronic left shoulder pain 10/04/201709/16 Heartburn 02/27/2017 11/13/2020 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 02/17/2017 12/05/2019 Overview: Added automatically from request for surgery [id number] Acute pain of left knee 12/26/2016 11/14/19 Chronic right shoulder pain 12/26/2016 04/12/2020 Gross hematuria 11/24/2016 11/13/2020 Malignant neoplasm of kidney excluding renal pel vis 10/21/2016 02/27/2017 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, without long-term current use of insulin 09/30/2016 09/30/2016 Neuropathy 09/30/2016 11/13/2020 Last Assessment & Plan: Assessment: stable on rx Asthma with COPD with exacerbation 08/24/2016 02/27/2017 Counseling and coordination of care 12/15/2014 08/24/2016 SUMMARY 11/21/2014 08/24/2016 Overview: Indication for hospital admission/procedure: Aortic aneurysm LVEF: 65% LVH RVF: Normal Important/Relevant PMH/PSH: BAV, Congenital anomaly of aorta, SIVAKUMAR, Asthma, HTN, HPL, DM, anxiety Preoperative Hospital Course Procedure/Surgeries: 11/17/2014 Mini-BAV repair, Ascending aortic replacement Airway Difficulty: No OR Course: Coagulopathy/bleeding requiring correction with 20u cryo, 8u FFP, 4u plts, 3uprbcs and 2 pump runs for repair of aortic cannulation site Pacing wires: out Postoperative Course/General Impression: S/p AVr/Asc aorta replacement. Plan to wean o2, pep, oob, increase diuresis, cont BB, pain and glucose control. Issues to communicate at signout: CT removed CPAP at night echo done CTA done PT rec acute rehab Needs much encouragement wires out 11/23 d/c to acute rehab today Discharge planning 11/21/2014 05/03/2016 Overview: Pt from [place], [place]. PT rec acute rehab; CM working on placement. Leaving for [facility] in-pt rehab today Hypertension 11/20/2014 02/27/2017 Overview: History: pre op on monopril, norv, Assessment: normotensive currently Plan: Cont BB , cont lasix Atelectasis 11/18/2014 11/19/2014 Overview: Bilateral on CXR. A/P: PEP, EZPAP OOBTC. Volume overload 11/18/2014 08/24/2016 Overview: History: post op Assessment: wt up 5 kg from pre op Plan: cont diuresis On mechanically assisted ventilation 11/17/2014 11/19/2014 Overview: Grade 1 airway. WTE when awake and stable. Extubated on DOS. CPAP at night PEP. Cardiac insufficiency following cardiac surgery 11/17/2014 11/20/2014 Overview: Low CI. CVP low. A/p Epi gtt off. Start BB. Pre-op testing 11/14/2014 08/23/2016 Overview: Images from the original note were not included. [facility] Surgeon: Modesto Cifuentes M.D. Informed Consent Completed: Yes STS Score: unsupported CAD: No Is intended procedure a CABG: No - is a beta hue ordered? No - reason: not indicated H & P completed: Yes 10/28/14 PA/LAT: Completed CT: Completed MRI: N/A LE US: N/A Cath: Yes - reviewed: Yes Echo:Completed EKG: Completed EF %: 65 PI's: N/A Carotid: N/A Mapping: N/A Dental: Completed PFT's: N/A No results for input(s): WBC, HB, HCT, PLT, INR, CREAT in the last 72 hours. UA: Normal HCG:N/A ABO/ABO Confirmed: Yes Blood ordered: No SA Swab: Yes - results: Negative Last Dose of Anticoagulation: OTC 11/12/14 Op Note: N/A Pacemaker Check: N/A Consults: none DM: Yes, A1c: 6.6% Cardiac Surgical prep: N/A SIGNATURE: JERSON Tian CHECKED BY: [email or web address] DATE of SERVICE: 11/14/2014 TIME of SERVICE: 10:59 AM discharge planning 11/10/2014 11/12/2014 Overview: 64yo male without any concerns presently Preop testing 11/10/2014 11/12/2014 Overview: Images from the original note were not included. [facility] Surgeon: Modesto Cifuentes M.D. Informed Consent Completed: pending STS Score: unsupported CAD: Yes - CAD on Problem List: Yes Is intended procedure a CABG: No - is a beta hue ordered? No - reason: not indicated H & P completed: Yes PA/LAT: Completed CT: Completed MRI: N/A LE US: N/A Cath: Yes - reviewed: Yes Echo:Completed EKG: Completed EF %: 65 PI's: Completed Carotid: N/A Mapping: N/A Dental: Pending PFT's: Completed No results for input(s): WBC, HB, HCT, PLT, INR, CREAT in the last 72 hours. UA: Normal HCG:N/A ABO/ABO Confirmed: Yes Blood ordered: No SA Swab: Yes - results: Pending Last Dose of Anticoagulation: vit basa LD 11/03 Op Note: N/A Pacemaker Check: N/A Consults: none DM: No Cardiac Surgical prep: N/A SIGNATURE: Kate Smith RN CHECKED BY: DATE of SERVICE: 11/10/2014 TIME of SERVICE: 10:05 AM Right rotator cuff tear 12/31/2013 08/25/19 17 Pain in joint, shoulder region 12/16/2013 0 08/24/2016 Essential hypertension, benign 12/03/2013 0 11/19/2014 Overview: Home RX; Nortvasc, ACEi A/P: NTg gtt to keep MAPS 65-75. Wean off. Hydralazine prn. Start BB when off Epi. Pain in joint, lower leg 04/16/2013 017 Degenerative tear of medial meniscus 04/16/2013 11/13/2020 Anxiety 07/08/2011 11/13/2020 Overview: Home Rx; Prozac. A/p Restarted Prozac. Esophagitis, unspecified 04/23/2009 017 Acute gastritis without mention of hemorrhage 08/24/2016 Trochanteric bursitis 03/05/2009 11/12/2014 Nontoxic uninodular goiter 01/16/200902/24 Overview: 08/13/19 thyroid right mid-pole thyroid solid nodule 9 x 7 x 4 mm stable since 2016 Last Assessment & Plan: Assessment: under surveillance Nonallopathic lesion of sacr al region, not elsewhere classified 01/02/2009 11/13/2020 Osteoarthrosis, unspecified whether generalized or localized, unspecified site 11/12/2008 11/13/2020 ABSCESS GROIN 07/23/2008 08/23/2016 Obesity, unspecified 07/15/2008 09/16/2020 Pain in joint, pelvic region and thigh 9 08/24/2016 INTRINSIC ASTHMA UNSPECIFIED 09/03/2007 Other seborrheic keratosis 08/07/200708/23 Calcaneal spur 11/13/2020 Generalized anxiety disorder Overview: Anxiety, Generalized Unspecified asthma(493.90) 09/02 Asthma 08/24/2016 documented as of this encounter (statuses as of 01/12/2022) [facility] History of Past illness Narrative* Problem Noted Date Resolved Date Primary osteoarthritis of left knee 12/08/2019 11/13/2020 Bruit of left carotid artery 12/05/2019 Last Assessment & Plan: Assessment: pending Carotid US Chronic left shoulder pain 10/04/201709/16 Heartburn 02/27/2017 11/13/2020 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 02/17/2017 12/05/2019 Overview: Added automatically from request for surgery [id number] Acute pain of left knee 12/26/2016 11/14/19 Chronic right shoulder pain 12/26/2016 04/0 12/2020 Gross hematuria 11/24/2016 11/13/2020 Malignant neoplasm of kidney excluding renal pel vis 10/21/2016 02/27/2017 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, without long-term current use of insulin 09/30/2016 09/30/2016 Neuropathy 09/30/2016 11/13/2020 Last Assessment & Plan: Assessment: stable on rx Asthma with COPD with exacerbation 08/24/2016 02/27/2017 Counseling and coordination of care 12/15/2014 08/24/2016 SUMMARY 11/21/2014 08/24/2016 Overview: Indication for hospital admission/procedure: Aortic aneurysm LVEF: 65% LVH RVF: Normal Important/Relevant PMH/PSH: BAV, Congenital anomaly of aorta, SIVAKUMAR, Asthma, HTN, HPL, DM, anxiety Preoperative Hospital Course Procedure/Surgeries: 11/17/2014 Mini-BAV repair, Ascending aortic replacement Airway Difficulty: No OR Course: Coagulopathy/bleeding requiring correction with 20u cryo, 8u FFP, 4u plts, 3uprbcs and 2 pump runs for repair of aortic cannulation site Pacing wires: out Postoperative Course/General Impression: S/p AVr/Asc aorta replacement. Plan to wean o2, pep, oob, increase diuresis, cont BB, pain and glucose control. Issues to communicate at signout: CT removed CPAP at night echo done CTA done PT rec acute rehab Needs much encouragement wires out 11/23 d/c to acute rehab today Discharge planning 11/21/2014 05/03/2016 Overview: Pt from [place], [place]. PT rec acute rehab; CM working on placement. Leaving for [facility] in-pt rehab today Hypertension 11/20/2014 02/27/2017 Overview: History: pre op on monopril, norv, Assessment: normotensive currently Plan: Cont BB , cont lasix Atelectasis 11/18/2014 11/19/2014 Overview: Bilateral on CXR. A/P: PEP, EZPAP OOBTC. Volume overload 11/18/2014 08/24/2016 Overview: History: post op Assessment: wt up 5 kg from pre op Plan: cont diuresis On mechanically assisted ventilation 11/17/2014 11/19/2014 Overview: Grade 1 airway. WTE when awake and stable. Extubated on DOS. CPAP at night PEP. Cardiac insufficiency following cardiac surgery 11/17/2014 11/20/2014 Overview: Low CI. CVP low. A/p Epi gtt off. Start BB. Pre-op testing 11/14/2014 08/23/2016 Overview: Images from the original note were not included. [facility] Surgeon: Modesto Cifuentes M.D. Informed Consent Completed: Yes STS Score: unsupported CAD: No Is intended procedure a CABG: No - is a beta hue ordered? No - reason: not indicated H & P completed: Yes 10/28/14 PA/LAT: Completed CT: Completed MRI: N/A LE US: N/A Cath: Yes - reviewed: Yes Echo:Completed EKG: Completed EF %: 65 PI's: N/A Carotid: N/A Mapping: N/A Dental: Completed PFT's: N/A No results for input(s): WBC, HB, HCT, PLT, INR, CREAT in the last 72 hours. UA: Normal HCG:N/A ABO/ABO Confirmed: Yes Blood ordered: No SA Swab: Yes - results: Negative Last Dose of Anticoagulation: OTC 11/12/14 Op Note: N/A Pacemaker Check: N/A Consults: none DM: Yes, A1c: 6.6% Cardiac Surgical prep: N/A SIGNATURE: JERSON Tian CHECKED BY: [email or web address] DATE of SERVICE: 11/14/2014 TIME of SERVICE: 10:59 AM discharge planning 11/10/2014 11/12/2014 Overview: 64yo male without any concerns presently Preop testing 11/10/2014 11/12/2014 Overview: Images from the original note were not included. [facility] Surgeon: Modesto Cifuentes M.D. Informed Consent Completed: pending STS Score: unsupported CAD: Yes - CAD on Problem List: Yes Is intended procedure a CABG: No - is a beta hue ordered? No - reason: not indicated H & P completed: Yes PA/LAT: Completed CT: Completed MRI: N/A LE US: N/A Cath: Yes - reviewed: Yes Echo:Completed EKG: Completed EF %: 65 PI's: Completed Carotid: N/A Mapping: N/A Dental: Pending PFT's: Completed No results for input(s): WBC, HB, HCT, PLT, INR, CREAT in the last 72 hours. UA: Normal HCG:N/A ABO/ABO Confirmed: Yes Blood ordered: No SA Swab: Yes - results: Pending Last Dose of Anticoagulation: vit basa LD 11/03 Op Note: N/A Pacemaker Check: N/A Consults: none DM: No Cardiac Surgical prep: N/A SIGNATURE: Kate Smith RN CHECKED BY: DATE of SERVICE: 11/10/2014 TIME of SERVICE: 10:05 AM Right rotator cuff tear 12/31/2013 08/25/19 17 Pain in joint, shoulder region 12/16/2013 0 08/24/2016 Essential hypertension, benign 12/03/2013 0 11/19/2014 Overview: Home RX; Nortvasc, ACEi A/P: NTg gtt to keep MAPS 65-75. Wean off. Hydralazine prn. Start BB when off Epi. Pain in joint, lower leg 04/16/2013 017 Degenerative tear of medial meniscus 04/16/2013 11/13/2020 Anxiety 07/08/2011 11/13/2020 Overview: Home Rx; Prozac. A/p Restarted Prozac. Esophagitis, unspecified 04/23/2009 017 Acute gastritis without mention of hemorrhage 08/24/2016 Trochanteric bursitis 03/05/2009 11/12/2014 Nontoxic uninodular goiter 01/16/200902/24 Overview: 08/13/19 US thyroid right mid-pole thyroid solid nodule 9 x 7 x 4 mm stable since 2016 Last Assessment & Plan: Assessment: under surveillance Nonallopathic lesion of sacr al region, not elsewhere classified 01/02/2009 11/13/2020 Osteoarthrosis, unspecified whether generalized or localized, unspecified site 11/12/2008 11/13/2020 ABSCESS GROIN 07/23/2008 08/23/2016 Obesity, unspecified 07/15/2008 09/16/2020 Pain in joint, pelvic region and thigh 9 08/24/2016 INTRINSIC ASTHMA UNSPECIFIED 09/03/2007 Other seborrheic keratosis 08/07/200708/23 Calcaneal spur 11/13/2020 Generalized anxiety disorder Overview: Anxiety, Generalized Unspecified asthma(493.90) 09/02 Asthma 08/24/2016 documented as of this encounter (statuses as of 01/31/2022) [facility] History of Past illness Narrative* Problem Noted Date Resolved Date Primary osteoarthritis of left knee 12/08/2019 11/13/2020 Bruit of left carotid artery 12/05/2019 Last Assessment & Plan: Assessment: pending Carotid US Chronic left shoulder pain 10/04/201709/16 Heartburn 02/27/2017 11/13/2020 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 02/17/2017 12/05/2019 Overview: Added automatically from request for surgery [id number] Acute pain of left knee 12/26/2016 11/14/19 Chronic right shoulder pain 12/26/2016 04/0 12/2020 Gross hematuria 11/24/2016 11/13/2020 Malignant neoplasm of kidney excluding renal pel vis 10/21/2016 02/27/2017 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, without long-term current use of insulin 09/30/2016 09/30/2016 Neuropathy 09/30/2016 11/13/2020 Last Assessment & Plan: Assessment: stable on rx Asthma with COPD with exacerbation 08/24/2016 02/27/2017 Counseling and coordination of care 12/15/2014 08/24/2016 SUMMARY 11/21/2014 08/24/2016 Overview: Indication for hospital admission/procedure: Aortic aneurysm LVEF: 65% LVH RVF: Normal Important/Relevant PMH/PSH: BAV, Congenital anomaly of aorta, SIVAKUMAR, Asthma, HTN, HPL, DM, anxiety Preoperative Hospital Course Procedure/Surgeries: 11/17/2014 Mini-BAV repair, Ascending aortic replacement Airway Difficulty: No OR Course: Coagulopathy/bleeding requiring correction with 20u cryo, 8u FFP, 4u plts, 3uprbcs and 2 pump runs for repair of aortic cannulation site Pacing wires: out Postoperative Course/General Impression: S/p AVr/Asc aorta replacement. Plan to wean o2, pep, oob, increase diuresis, cont BB, pain and glucose control. Issues to communicate at signout: CT removed CPAP at night echo done CTA done PT rec acute rehab Needs much encouragement wires out / d/c to acute rehab today Discharge planning 11/21/2014 05/03/2016 Overview: Pt from [place], [place]. PT rec acute rehab; CM working on placement. Leaving for [facility] in-pt rehab today Hypertension 11/20/2014 02/27/2017 Overview: History: pre op on monopril, norv, Assessment: normotensive currently Plan: Cont BB , cont lasix Atelectasis 11/18/2014 11/19/2014 Overview: Bilateral on CXR. A/P: PEP, EZPAP OOBTC. Volume overload 11/18/2014 08/24/2016 Overview: History: post op Assessment: wt up 5 kg from pre op Plan: cont diuresis On mechanically assisted ventilation 11/17/2014 11/19/2014 Overview: Grade 1 airway. WTE when awake and stable. Extubated on DOS. CPAP at night PEP. Cardiac insufficiency following cardiac surgery 11/17/2014 11/20/2014 Overview: Low CI. CVP low. A/p Epi gtt off. Start BB. Pre-op testing 11/14/2014 08/23/2016 Overview: Images from the original note were not included. [facility] Surgeon: Modesto Cifuentes M.D. Informed Consent Completed: Yes STS Score: unsupported CAD: No Is intended procedure a CABG: No - is a beta hue ordered? No - reason: not indicated H & P completed: Yes 10/28/14 PA/LAT: Completed CT: Completed MRI: N/A LE US: N/A Cath: Yes - reviewed: Yes Echo:Completed EKG: Completed EF %: 65 PI's: N/A Carotid: N/A Mapping: N/A Dental: Completed PFT's: N/A No results for input(s): WBC, HB, HCT, PLT, INR, CREAT in the last 72 hours. UA: Normal HCG:N/A ABO/ABO Confirmed: Yes Blood ordered: No SA Swab: Yes - results: Negative Last Dose of Anticoagulation: OTC 11/12/14 Op Note: N/A Pacemaker Check: N/A Consults: none DM: Yes, A1c: 6.6% Cardiac Surgical prep: N/A SIGNATURE: JERSON Tian CHECKED BY: [email or web address] DATE of SERVICE: 11/14/2014 TIME of SERVICE: 10:59 AM discharge planning 11/10/2014 11/12/2014 Overview: 64yo male without any concerns presently Preop testing 11/10/2014 11/12/2014 Overview: Images from the original note were not included. [facility] Surgeon: Modesto Cifuentes M.D. Informed Consent Completed: pending STS Score: unsupported CAD: Yes - CAD on Problem List: Yes Is intended procedure a CABG: No - is a beta hue ordered? No - reason: not indicated H & P completed: Yes PA/LAT: Completed CT: Completed MRI: N/A LE US: N/A Cath: Yes - reviewed: Yes Echo:Completed EKG: Completed EF %: 65 PI's: Completed Carotid: N/A Mapping: N/A Dental: Pending PFT's: Completed No results for input(s): WBC, HB, HCT, PLT, INR, CREAT in the last 72 hours. UA: Normal HCG:N/A ABO/ABO Confirmed: Yes Blood ordered: No SA Swab: Yes - results: Pending Last Dose of Anticoagulation: vit basa LD 11/03 Op Note: N/A Pacemaker Check: N/A Consults: none DM: No Cardiac Surgical prep: N/A SIGNATURE: Kate Smith RN CHECKED BY: DATE of SERVICE: 11/10/2014 TIME of SERVICE: 10:05 AM Right rotator cuff tear 12/31/2013 08/25/19 17 Pain in joint, shoulder region 12/16/2013 0 08/24/2016 Essential hypertension, benign 12/03/2013 0 11/19/2014 Overview: Home RX; Nortvasc, ACEi A/P: NTg gtt to keep MAPS 65-75. Wean off. Hydralazine prn. Start BB when off Epi. Pain in joint, lower leg 04/16/2013 017 Degenerative tear of medial meniscus 04/16/2013 11/13/2020 Anxiety 07/08/2011 11/13/2020 Overview: Home Rx; Prozac. A/p Restarted Prozac. Esophagitis, unspecified 04/23/2009 017 Acute gastritis without mention of hemorrhage 08/24/2016 Trochanteric bursitis 03/05/2009 11/12/2014 Nontoxic uninodular goiter 01/16/200902/24 Overview: 08/13/19 US thyroid right mid-pole thyroid solid nodule 9 x 7 x 4 mm stable since 2016 Last Assessment & Plan: Assessment: under surveillance Nonallopathic lesion of sacr al region, not elsewhere classified 01/02/2009 11/13/2020 Osteoarthrosis, unspecified whether generalized or localized, unspecified site 11/12/2008 11/13/2020 ABSCESS GROIN 07/23/2008 08/23/2016 Obesity, unspecified 07/15/2008 09/16/2020 Pain in joint, pelvic region and thigh 9 08/24/2016 INTRINSIC ASTHMA UNSPECIFIED 09/03/2007 Other seborrheic keratosis 08/07/200708/23 Calcaneal spur 11/13/2020 Generalized anxiety disorder Overview: Anxiety, Generalized Unspecified asthma(493.90) 09/02 Asthma 08/24/2016 documented as of this encounter (statuses as of 02/01/2022) [facility] History of Past illness Narrative* Problem Noted Date Resolved Date Primary osteoarthritis of left knee 12/08/2019 11/13/2020 Bruit of left carotid artery 12/05/2019 Last Assessment & Plan: Assessment: pending Carotid US Chronic left shoulder pain 10/04/201709/16 Heartburn 02/27/2017 11/13/2020 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 02/17/2017 12/05/2019 Overview: Added automatically from request for surgery [id number] Acute pain of left knee 12/26/2016 11/14/19 Chronic right shoulder pain 12/26/2016 04/0 12/2020 Gross hematuria 11/24/2016 11/13/2020 Malignant neoplasm of kidney excluding renal pel vis 10/21/2016 02/27/2017 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, without long-term current use of insulin 09/30/2016 09/30/2016 Neuropathy 09/30/2016 11/13/2020 Last Assessment & Plan: Assessment: stable on rx Asthma with COPD with exacerbation 08/24/2016 02/27/2017 Counseling and coordination of care 12/15/2014 08/24/2016 SUMMARY 11/21/2014 08/24/2016 Overview: Indication for hospital admission/procedure: Aortic aneurysm LVEF: 65% LVH RVF: Normal Important/Relevant PMH/PSH: BAV, Congenital anomaly of aorta, SIVAKUMAR, Asthma, HTN, HPL, DM, anxiety Preoperative Hospital Course Procedure/Surgeries: 11/17/2014 Mini-BAV repair, Ascending aortic replacement Airway Difficulty: No OR Course: Coagulopathy/bleeding requiring correction with 20u cryo, 8u FFP, 4u plts, 3uprbcs and 2 pump runs for repair of aortic cannulation site Pacing wires: out Postoperative Course/General Impression: S/p AVr/Asc aorta replacement. Plan to wean o2, pep, oob, increase diuresis, cont BB, pain and glucose control. Issues to communicate at signout: CT removed CPAP at night echo done CTA done PT rec acute rehab Needs much encouragement wires out 11/23 d/c to acute rehab today Discharge planning 11/21/2014 05/03/2016 Overview: Pt from [place], [place]. PT rec acute rehab; CM working on placement. Leaving for [facility] in-pt rehab today Hypertension 11/20/2014 02/27/2017 Overview: History: pre op on monopril, norv, Assessment: normotensive currently Plan: Cont BB , cont lasix Atelectasis 11/18/2014 11/19/2014 Overview: Bilateral on CXR. A/P: PEP, EZPAP OOBTC. Volume overload 11/18/2014 08/24/2016 Overview: History: post op Assessment: wt up 5 kg from pre op Plan: cont diuresis On mechanically assisted ventilation 11/17/2014 11/19/2014 Overview: Grade 1 airway. WTE when awake and stable. Extubated on DOS. CPAP at night PEP. Cardiac insufficiency following cardiac surgery 11/17/2014 11/20/2014 Overview: Low CI. CVP low. A/p Epi gtt off. Start BB. Pre-op testing 11/14/2014 08/23/2016 Overview: Images from the original note were not included. [facility] Surgeon: Modesto Cifuentes M.D. Informed Consent Completed: Yes STS Score: unsupported CAD: No Is intended procedure a CABG: No - is a beta hue ordered? No - reason: not indicated H & P completed: Yes 10/28/14 PA/LAT: Completed CT: Completed MRI: N/A LE US: N/A Cath: Yes - reviewed: Yes Echo:Completed EKG: Completed EF %: 65 PI's: N/A Carotid: N/A Mapping: N/A Dental: Completed PFT's: N/A No results for input(s): WBC, HB, HCT, PLT, INR, CREAT in the last 72 hours. UA: Normal HCG:N/A ABO/ABO Confirmed: Yes Blood ordered: No SA Swab: Yes - results: Negative Last Dose of Anticoagulation: OTC 11/12/14 Op Note: N/A Pacemaker Check: N/A Consults: none DM: Yes, A1c: 6.6% Cardiac Surgical prep: N/A SIGNATURE: JERSON Tian CHECKED BY: [email or web address] DATE of SERVICE: 11/14/2014 TIME of SERVICE: 10:59 AM discharge planning 11/10/2014 11/12/2014 Overview: 64yo male without any concerns presently Preop testing 11/10/2014 11/12/2014 Overview: Images from the original note were not included. [facility] Surgeon: Modesto Cifuentes M.D. Informed Consent Completed: pending STS Score: unsupported CAD: Yes - CAD on Problem List: Yes Is intended procedure a CABG: No - is a beta hue ordered? No - reason: not indicated H & P completed: Yes PA/LAT: Completed CT: Completed MRI: N/A LE US: N/A Cath: Yes - reviewed: Yes Echo:Completed EKG: Completed EF %: 65 PI's: Completed Carotid: N/A Mapping: N/A Dental: Pending PFT's: Completed No results for input(s): WBC, HB, HCT, PLT, INR, CREAT in the last 72 hours. UA: Normal HCG:N/A ABO/ABO Confirmed: Yes Blood ordered: No SA Swab: Yes - results: Pending Last Dose of Anticoagulation: vit basa LD 11/03 Op Note: N/A Pacemaker Check: N/A Consults: none DM: No Cardiac Surgical prep: N/A SIGNATURE: Kate Smith RN CHECKED BY: DATE of SERVICE: 11/10/2014 TIME of SERVICE: 10:05 AM Right rotator cuff tear 12/31/2013 08/25/19 17 Pain in joint, shoulder region 12/16/2013 0 08/24/2016 Essential hypertension, benign 12/03/2013 0 11/19/2014 Overview: Home RX; Nortvasc, ACEi A/P: NTg gtt to keep MAPS 65-75. Wean off. Hydralazine prn. Start BB when off Epi. Pain in joint, lower leg 04/16/2013 017 Degenerative tear of medial meniscus 04/16/2013 11/13/2020 Anxiety 07/08/2011 11/13/2020 Overview: Home Rx; Prozac. A/p Restarted Prozac. Esophagitis, unspecified 04/23/2009 017 Acute gastritis without mention of hemorrhage 08/24/2016 Trochanteric bursitis 03/05/2009 11/12/2014 Nontoxic uninodular goiter 01/16/200902/24 Overview: 08/13/19 US thyroid right mid-pole thyroid solid nodule 9 x 7 x 4 mm stable since 2016 Last Assessment & Plan: Assessment: under surveillance Nonallopathic lesion of sacr al region, not elsewhere classified 01/02/2009 11/13/2020 Osteoarthrosis, unspecified whether generalized or localized, unspecified site 11/12/2008 11/13/2020 ABSCESS GROIN 07/23/2008 08/23/2016 Obesity, unspecified 07/15/2008 09/16/2020 Pain in joint, pelvic region and thigh 9 08/24/2016 INTRINSIC ASTHMA UNSPECIFIED 09/03/2007 Other seborrheic keratosis 08/07/200708/23 Calcaneal spur 11/13/2020 Generalized anxiety disorder Overview: Anxiety, Generalized Unspecified asthma(493.90) 09/02 Asthma 08/24/2016 documented as of this encounter (statuses as of 02/01/2022) [facility]2020 History of Past illness Narrative* Problem Noted Date Resolved Date Primary osteoarthritis of left knee 12/08/2019 11/13/2020 Bruit of left carotid artery 12/05/2019 Last Assessment & Plan: Assessment: pending Carotid US Chronic left shoulder pain 10/04/201709/16 Heartburn 02/27/2017 11/13/2020 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 02/17/2017 12/05/2019 Overview: Added automatically from request for surgery [id number] Acute pain of left knee 12/26/2016 11/14/19 21 Chronic right shoulder pain 12/26/2016 04/0 12/2020 Gross hematuria 11/24/2016 11/13/2020 Malignant neoplasm of kidney excluding renal pel vis 10/21/2016 02/27/2017 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, without long-term current use of insulin 09/30/2016 09/30/2016 Neuropathy 09/30/2016 11/13/2020 Last Assessment & Plan: Assessment: stable on rx Asthma with COPD with exacerbation 08/24/2016 02/27/2017 Counseling and coordination of care 12/15/2014 08/24/2016 SUMMARY 11/21/2014 08/24/2016 Overview: Indication for hospital admission/procedure: Aortic aneurysm LVEF: 65% LVH RVF: Normal Important/Relevant PMH/PSH: BAV, Congenital anomaly of aorta, SIVAKUMAR, Asthma, HTN, HPL, DM, anxiety Preoperative Hospital Course Procedure/Surgeries: 11/17/2014 Mini-BAV repair, Ascending aortic replacement Airway Difficulty: No OR Course: Coagulopathy/bleeding requiring correction with 20u cryo, 8u FFP, 4u plts, 3uprbcs and 2 pump runs for repair of aortic cannulation site Pacing wires: out Postoperative Course/General Impression: S/p AVr/Asc aorta replacement. Plan to wean o2, pep, oob, increase diuresis, cont BB, pain and glucose control. Issues to communicate at signout: CT removed CPAP at night echo done CTA done PT rec acute rehab Needs much encouragement wires out 11/23 d/c to acute rehab today Discharge planning 11/21/2014 05/03/2016 Overview: Pt from [place], [place]. PT rec acute rehab; CM working on placement. Leaving for [facility] in-pt rehab today Hypertension 11/20/2014 02/27/2017 Overview: History: pre op on monopril, norv, Assessment: normotensive currently Plan: Cont BB , cont lasix Atelectasis 11/18/2014 11/19/2014 Overview: Bilateral on CXR. A/P: PEP, EZPAP OOBTC. Volume overload 11/18/2014 08/24/2016 Overview: History: post op Assessment: wt up 5 kg from pre op Plan: cont diuresis On mechanically assisted ventilation 11/17/2014 11/19/2014 Overview: Grade 1 airway. WTE when awake and stable. Extubated on DOS. CPAP at night PEP. Cardiac insufficiency following cardiac surgery 11/17/2014 11/20/2014 Overview: Low CI. CVP low. A/p Epi gtt off. Start BB. Pre-op testing 11/14/2014 08/23/2016 Overview: Images from the original note were not included. [facility] PRE-[facility] Surgeon: Modesto Cifuentes M.D. Informed Consent Completed: Yes STS Score: unsupported CAD: No Is intended procedure a CABG: No - is a beta hue ordered? No - reason: not indicated H & P completed: Yes 10/28/14 PA/LAT: Completed CT: Completed MRI: N/A LE US: N/A Cath: Yes - reviewed: Yes Echo:Completed EKG: Completed EF %: 65 PI's: N/A Carotid: N/A Mapping: N/A Dental: Completed PFT's: N/A No results for input(s): WBC, HB, HCT, PLT, INR, CREAT in the last 72 hours. UA: Normal HCG:N/A ABO/ABO Confirmed: Yes Blood ordered: No SA Swab: Yes - results: Negative Last Dose of Anticoagulation: OTC 11/12/14 Op Note: N/A Pacemaker Check: N/A Consults: none DM: Yes, A1c: 6.6% Cardiac Surgical prep: N/A SIGNATURE: JERSON Tian CHECKED BY: [email or web address] DATE of SERVICE: 11/14/2014 TIME of SERVICE: 10:59 AM discharge planning 11/10/2014 11/12/2014 Overview: 64yo male without any concerns presently Preop testing 11/10/2014 11/12/2014 Overview: Images from the original note were not included. [facility] Surgeon: Modesto Cifuentes M.D. Informed Consent Completed: pending STS Score: unsupported CAD: Yes - CAD on Problem List: Yes Is intended procedure a CABG: No - is a beta hue ordered? No - reason: not indicated H & P completed: Yes PA/LAT: Completed CT: Completed MRI: N/A LE US: N/A Cath: Yes - reviewed: Yes Echo:Completed EKG: Completed EF %: 65 PI's: Completed Carotid: N/A Mapping: N/A Dental: Pending PFT's: Completed No results for input(s): WBC, HB, HCT, PLT, INR, CREAT in the last 72 hours. UA: Normal HCG:N/A ABO/ABO Confirmed: Yes Blood ordered: No SA Swab: Yes - results: Pending Last Dose of Anticoagulation: vit basa LD 11/03 Op Note: N/A Pacemaker Check: N/A Consults: none DM: No Cardiac Surgical prep: N/A SIGNATURE: Kate Smith RN CHECKED BY: DATE of SERVICE: 11/10/2014 TIME of SERVICE: 10:05 AM Right rotator cuff tear 12/31/2013 08/25/19 17 Pain in joint, shoulder region 12/16/2013 0 08/24/2016 Essential hypertension, benign 12/03/2013 0 11/19/2014 Overview: Home RX; Nortvasc, ACEi A/P: NTg gtt to keep MAPS 65-75. Wean off. Hydralazine prn. Start BB when off Epi. Pain in joint, lower leg 04/16/2013 017 Degenerative tear of medial meniscus 04/16/2013 11/13/2020 Anxiety 07/08/2011 11/13/2020 Overview: Home Rx; Prozac. A/p Restarted Prozac. Esophagitis, unspecified 04/23/2009 017 Acute gastritis without mention of hemorrhage 08/24/2016 Trochanteric bursitis 03/05/2009 11/12/2014 Nontoxic uninodular goiter 01/16/200902/24 Overview: 08/13/19 US thyroid right mid-pole thyroid solid nodule 9 x 7 x 4 mm stable since 2016 Last Assessment & Plan: Assessment: under surveillance Nonallopathic lesion of sacr al region, not elsewhere classified 01/02/2009 11/13/2020 Osteoarthrosis, unspecified whether generalized or localized, unspecified site 11/12/2008 11/13/2020 ABSCESS GROIN 07/23/2008 08/23/2016 Obesity, unspecified 07/15/2008 09/16/2020 Pain in joint, pelvic region and thigh 9 08/24/2016 INTRINSIC ASTHMA UNSPECIFIED 09/03/2007 Other seborrheic keratosis 08/07/200708/23 Calcaneal spur 11/13/2020 Generalized anxiety disorder Overview: Anxiety, Generalized Unspecified asthma(493.90) 09/02 Asthma 08/24/2016 documented as of this encounter (statuses as of 02/01/2022) [facility] History of Past illness Narrative* Problem Noted Date Resolved Date Primary osteoarthritis of left knee 12/08/2019 11/13/2020 Bruit of left carotid artery 12/05/2019 Last Assessment & Plan: Assessment: pending Carotid US Chronic left shoulder pain 10/04/201709/16 Heartburn 02/27/2017 11/13/2020 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 02/17/2017 12/05/2019 Overview: Added automatically from request for surgery [id number] Acute pain of left knee 12/26/2016 11/14/19 Chronic right shoulder pain 12/26/2016 04/0 12/2020 Gross hematuria 11/24/2016 11/13/2020 Malignant neoplasm of kidney excluding renal pel vis 10/21/2016 02/27/2017 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, without long-term current use of insulin 09/30/2016 09/30/2016 Neuropathy 09/30/2016 11/13/2020 Last Assessment & Plan: Assessment: stable on rx Asthma with COPD with exacerbation 08/24/2016 02/27/2017 Counseling and coordination of care 12/15/2014 08/24/2016 SUMMARY 11/21/2014 08/24/2016 Overview: Indication for hospital admission/procedure: Aortic aneurysm LVEF: 65% LVH RVF: Normal Important/Relevant PMH/PSH: BAV, Congenital anomaly of aorta, SIVAKUMAR, Asthma, HTN, HPL, DM, anxiety Preoperative Hospital Course Procedure/Surgeries: 11/17/2014 Mini-BAV repair, Ascending aortic replacement Airway Difficulty: No OR Course: Coagulopathy/bleeding requiring correction with 20u cryo, 8u FFP, 4u plts, 3uprbcs and 2 pump runs for repair of aortic cannulation site Pacing wires: out Postoperative Course/General Impression: S/p AVr/Asc aorta replacement. Plan to wean o2, pep, oob, increase diuresis, cont BB, pain and glucose control. Issues to communicate at signout: CT removed CPAP at night echo done CTA done PT rec acute rehab Needs much encouragement wires out 11/23 d/c to acute rehab today Discharge planning 11/21/2014 05/03/2016 Overview: Pt from [place], [place]. PT rec acute rehab; CM working on placement. Leaving for [facility] in-pt rehab today Hypertension 11/20/2014 02/27/2017 Overview: History: pre op on monopril, norv, Assessment: normotensive currently Plan: Cont BB , cont lasix Atelectasis 11/18/2014 11/19/2014 Overview: Bilateral on CXR. A/P: PEP, EZPAP OOBTC. Volume overload 11/18/2014 08/24/2016 Overview: History: post op Assessment: wt up 5 kg from pre op Plan: cont diuresis On mechanically assisted ventilation 11/17/2014 11/19/2014 Overview: Grade 1 airway. WTE when awake and stable. Extubated on DOS. CPAP at night PEP. Cardiac insufficiency following cardiac surgery 11/17/2014 11/20/2014 Overview: Low CI. CVP low. A/p Epi gtt off. Start BB. Pre-op testing 11/14/2014 08/23/2016 Overview: Images from the original note were not included. [facility] Surgeon: Modesto Cifuentes M.D. Informed Consent Completed: Yes STS Score: unsupported CAD: No Is intended procedure a CABG: No - is a beta hue ordered? No - reason: not indicated H & P completed: Yes 10/28/14 PA/LAT: Completed CT: Completed MRI: N/A LE US: N/A Cath: Yes - reviewed: Yes Echo:Completed EKG: Completed EF %: 65 PI's: N/A Carotid: N/A Mapping: N/A Dental: Completed PFT's: N/A No results for input(s): WBC, HB, HCT, PLT, INR, CREAT in the last 72 hours. UA: Normal HCG:N/A ABO/ABO Confirmed: Yes Blood ordered: No SA Swab: Yes - results: Negative Last Dose of Anticoagulation: OTC 11/12/14 Op Note: N/A Pacemaker Check: N/A Consults: none DM: Yes, A1c: 6.6% Cardiac Surgical prep: N/A SIGNATURE: JERSON Tian CHECKED BY: [email or web address] DATE of SERVICE: 11/14/2014 TIME of SERVICE: 10:59 AM discharge planning 11/10/2014 11/12/2014 Overview: 64yo male without any concerns presently Preop testing 11/10/2014 11/12/2014 Overview: Images from the original note were not included. [facility] Surgeon: Modesto Cifuentes M.D. Informed Consent Completed: pending STS Score: unsupported CAD: Yes - CAD on Problem List: Yes Is intended procedure a CABG: No - is a beta hue ordered? No - reason: not indicated H & P completed: Yes PA/LAT: Completed CT: Completed MRI: N/A LE US: N/A Cath: Yes - reviewed: Yes Echo:Completed EKG: Completed EF %: 65 PI's: Completed Carotid: N/A Mapping: N/A Dental: Pending PFT's: Completed No results for input(s): WBC, HB, HCT, PLT, INR, CREAT in the last 72 hours. UA: Normal HCG:N/A ABO/ABO Confirmed: Yes Blood ordered: No SA Swab: Yes - results: Pending Last Dose of Anticoagulation: vit basa LD 11/03 Op Note: N/A Pacemaker Check: N/A Consults: none DM: No Cardiac Surgical prep: N/A SIGNATURE: Kate Smith RN CHECKED BY: DATE of SERVICE: 11/10/2014 TIME of SERVICE: 10:05 AM Right rotator cuff tear 12/31/2013 08/25/19 17 Pain in joint, shoulder region 12/16/2013 0 08/24/2016 Essential hypertension, benign 12/03/2013 0 11/19/2014 Overview: Home RX; Nortvasc, ACEi A/P: NTg gtt to keep MAPS 65-75. Wean off. Hydralazine prn. Start BB when off Epi. Pain in joint, lower leg 04/16/2013 017 Degenerative tear of medial meniscus 04/16/2013 11/13/2020 Anxiety 07/08/2011 11/13/2020 Overview: Home Rx; Prozac. A/p Restarted Prozac. Esophagitis, unspecified 04/23/2009 017 Acute gastritis without mention of hemorrhage 08/24/2016 Trochanteric bursitis 03/05/2009 11/12/2014 Nontoxic uninodular goiter 01/16/200902/24 Overview: 08/13/19 thyroid right mid-pole thyroid solid nodule 9 x 7 x 4 mm stable since 2016 Last Assessment & Plan: Assessment: under surveillance Nonallopathic lesion of sacr al region, not elsewhere classified 01/02/2009 11/13/2020 Osteoarthrosis, unspecified whether generalized or localized, unspecified site 11/12/2008 11/13/2020 ABSCESS GROIN 07/23/2008 08/23/2016 Obesity, unspecified 07/15/2008 09/16/2020 Pain in joint, pelvic region and thigh 9 08/24/2016 INTRINSIC ASTHMA UNSPECIFIED 09/03/2007 Other seborrheic keratosis 08/07/200708/23 Calcaneal spur 11/13/2020 Generalized anxiety disorder Overview: Anxiety, Generalized Unspecified asthma(493.90) 09/02 Asthma 08/24/2016 documented as of this encounter (statuses as of 02/04/2022) [facility] History of Past illness Narrative* Problem Noted Date Resolved Date Primary osteoarthritis of left knee 12/08/2019 11/13/2020 Bruit of left carotid artery 12/05/2019 Last Assessment & Plan: Assessment: pending Carotid US Chronic left shoulder pain 10/04/201709/16 Heartburn 02/27/2017 11/13/2020 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 02/17/2017 12/05/2019 Overview: Added automatically from request for surgery [id number] Acute pain of left knee 12/26/2016 11/14/19 Chronic right shoulder pain 12/26/2016 04/0 12/2020 Gross hematuria 11/24/2016 11/13/2020 Malignant neoplasm of kidney excluding renal pel vis 10/21/2016 02/27/2017 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, without long-term current use of insulin 09/30/2016 09/30/2016 Neuropathy 09/30/2016 11/13/2020 Last Assessment & Plan: Assessment: stable on rx Asthma with COPD with exacerbation 08/24/2016 02/27/2017 Counseling and coordination of care 12/15/2014 08/24/2016 SUMMARY 11/21/2014 08/24/2016 Overview: Indication for hospital admission/procedure: Aortic aneurysm LVEF: 65% LVH RVF: Normal Important/Relevant PMH/PSH: BAV, Congenital anomaly of aorta, SIVAKUMAR, Asthma, HTN, HPL, DM, anxiety Preoperative Hospital Course Procedure/Surgeries: 11/17/2014 Mini-BAV repair, Ascending aortic replacement Airway Difficulty: No OR Course: Coagulopathy/bleeding requiring correction with 20u cryo, 8u FFP, 4u plts, 3uprbcs and 2 pump runs for repair of aortic cannulation site Pacing wires: out Postoperative Course/General Impression: S/p AVr/Asc aorta replacement. Plan to wean o2, pep, oob, increase diuresis, cont BB, pain and glucose control. Issues to communicate at signout: CT removed CPAP at night echo done CTA done PT rec acute rehab Needs much encouragement wires out 11/23 d/c to acute rehab today Discharge planning 11/21/2014 05/03/2016 Overview: Pt from [place], [place]. PT rec acute rehab; CM working on placement. Leaving for [facility] in-pt rehab today Hypertension 11/20/2014 02/27/2017 Overview: History: pre op on monopril, norv, Assessment: normotensive currently Plan: Cont BB , cont lasix Atelectasis 11/18/2014 11/19/2014 Overview: Bilateral on CXR. A/P: PEP, EZPAP OOBTC. Volume overload 11/18/2014 08/24/2016 Overview: History: post op Assessment: wt up 5 kg from pre op Plan: cont diuresis On mechanically assisted ventilation 11/17/2014 11/19/2014 Overview: Grade 1 airway. WTE when awake and stable. Extubated on DOS. CPAP at night PEP. Cardiac insufficiency following cardiac surgery 11/17/2014 11/20/2014 Overview: Low CI. CVP low. A/p Epi gtt off. Start BB. Pre-op testing 11/14/2014 08/23/2016 Overview: Images from the original note were not included. [facility] Surgeon: Modesto Cifuentes M.D. Informed Consent Completed: Yes STS Score: unsupported CAD: No Is intended procedure a CABG: No - is a beta hue ordered? No - reason: not indicated H & P completed: Yes 10/28/14 PA/LAT: Completed CT: Completed MRI: N/A LE US: N/A Cath: Yes - reviewed: Yes Echo:Completed EKG: Completed EF %: 65 PI's: N/A Carotid: N/A Mapping: N/A Dental: Completed PFT's: N/A No results for input(s): WBC, HB, HCT, PLT, INR, CREAT in the last 72 hours. UA: Normal HCG:N/A ABO/ABO Confirmed: Yes Blood ordered: No SA Swab: Yes - results: Negative Last Dose of Anticoagulation: OTC 11/12/14 Op Note: N/A Pacemaker Check: N/A Consults: none DM: Yes, A1c: 6.6% Cardiac Surgical prep: N/A SIGNATURE: JERSON Tian CHECKED BY: [email or web address] DATE of SERVICE: 11/14/2014 TIME of SERVICE: 10:59 AM discharge planning 11/10/2014 11/12/2014 Overview: 64yo male without any concerns presently Preop testing 11/10/2014 11/12/2014 Overview: Images from the original note were not included. [facility] Surgeon: Modesto Cifuentes M.D. Informed Consent Completed: pending STS Score: unsupported CAD: Yes - CAD on Problem List: Yes Is intended procedure a CABG: No - is a beta hue ordered? No - reason: not indicated H & P completed: Yes PA/LAT: Completed CT: Completed MRI: N/A LE US: N/A Cath: Yes - reviewed: Yes Echo:Completed EKG: Completed EF %: 65 PI's: Completed Carotid: N/A Mapping: N/A Dental: Pending PFT's: Completed No results for input(s): WBC, HB, HCT, PLT, INR, CREAT in the last 72 hours. UA: Normal HCG:N/A ABO/ABO Confirmed: Yes Blood ordered: No SA Swab: Yes - results: Pending Last Dose of Anticoagulation: vit basa LD 11/03 Op Note: N/A Pacemaker Check: N/A Consults: none DM: No Cardiac Surgical prep: N/A SIGNATURE: Kate Smith RN CHECKED BY: DATE of SERVICE: 11/10/2014 TIME of SERVICE: 10:05 AM Right rotator cuff tear 12/31/2013 08/25/19 17 Pain in joint, shoulder region 12/16/2013 0 08/24/2016 Essential hypertension, benign 12/03/2013 0 11/19/2014 Overview: Home RX; Nortvasc, ACEi A/P: NTg gtt to keep MAPS 65-75. Wean off. Hydralazine prn. Start BB when off Epi. Pain in joint, lower leg 04/16/2013 017 Degenerative tear of medial meniscus 04/16/2013 11/13/2020 Anxiety 07/08/2011 11/13/2020 Overview: Home Rx; Prozac. A/p Restarted Prozac. Esophagitis, unspecified 04/23/2009 017 Acute gastritis without mention of hemorrhage 08/24/2016 Trochanteric bursitis 03/05/2009 11/12/2014 Nontoxic uninodular goiter 01/16/200902/24 Overview: 08/13/19 US thyroid right mid-pole thyroid solid nodule 9 x 7 x 4 mm stable since 2016 Last Assessment & Plan: Assessment: under surveillance Nonallopathic lesion of sacr al region, not elsewhere classified 01/02/2009 11/13/2020 Osteoarthrosis, unspecified whether generalized or localized, unspecified site 11/12/2008 11/13/2020 ABSCESS GROIN 07/23/2008 08/23/2016 Obesity, unspecified 07/15/2008 09/16/2020 Pain in joint, pelvic region and thigh 9 08/24/2016 INTRINSIC ASTHMA UNSPECIFIED 09/03/2007 Other seborrheic keratosis 08/07/200708/23 Calcaneal spur 11/13/2020 Generalized anxiety disorder Overview: Anxiety, Generalized Unspecified asthma(493.90) 09/02 Asthma 08/24/2016 documented as of this encounter (statuses as of 02/09/2022) [facility] History of Past illness Narrative* Problem Noted Date Resolved Date Primary osteoarthritis of left knee 12/08/2019 11/13/2020 Bruit of left carotid artery 12/05/2019 Last Assessment & Plan: Assessment: pending Carotid US Chronic left shoulder pain 10/04/201709/16 Heartburn 02/27/2017 11/13/2020 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 02/17/2017 12/05/2019 Overview: Added automatically from request for surgery [id number] Acute pain of left knee 12/26/2016 11/14/19 Chronic right shoulder pain 12/26/2016 04/0 12/2020 Gross hematuria 11/24/2016 11/13/2020 Malignant neoplasm of kidney excluding renal pel vis 10/21/2016 02/27/2017 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, without long-term current use of insulin 09/30/2016 09/30/2016 Neuropathy 09/30/2016 11/13/2020 Last Assessment & Plan: Assessment: stable on rx Asthma with COPD with exacerbation 08/24/2016 02/27/2017 Counseling and coordination of care 12/15/2014 08/24/2016 SUMMARY 11/21/2014 08/24/2016 Overview: Indication for hospital admission/procedure: Aortic aneurysm LVEF: 65% LVH RVF: Normal Important/Relevant PMH/PSH: BAV, Congenital anomaly of aorta, SIVAKUMAR, Asthma, HTN, HPL, DM, anxiety Preoperative Hospital Course Procedure/Surgeries: 11/17/2014 Mini-BAV repair, Ascending aortic replacement Airway Difficulty: No OR Course: Coagulopathy/bleeding requiring correction with 20u cryo, 8u FFP, 4u plts, 3uprbcs and 2 pump runs for repair of aortic cannulation site Pacing wires: out Postoperative Course/General Impression: S/p AVr/Asc aorta replacement. Plan to wean o2, pep, oob, increase diuresis, cont BB, pain and glucose control. Issues to communicate at signout: CT removed CPAP at night echo done CTA done PT rec acute rehab Needs much encouragement wires out 11/23 d/c to acute rehab today Discharge planning 11/21/2014 05/03/2016 Overview: Pt from [place], [place]. PT rec acute rehab; CM working on placement. Leaving for [facility] in-[facility] rehab today Hypertension 11/20/2014 02/27/2017 Overview: History: pre op on monopril, norv, Assessment: normotensive currently Plan: Cont BB , cont lasix Atelectasis 11/18/2014 11/19/2014 Overview: Bilateral on CXR. A/P: PEP, EZPAP OOBTC. Volume overload 11/18/2014 08/24/2016 Overview: History: post op Assessment: wt up 5 kg from pre op Plan: cont diuresis On mechanically assisted ventilation 11/17/2014 11/19/2014 Overview: Grade 1 airway. WTE when awake and stable. Extubated on DOS. CPAP at night PEP. Cardiac insufficiency following cardiac surgery 11/17/2014 11/20/2014 Overview: Low CI. CVP low. A/p Epi gtt off. Start BB. Pre-op testing 11/14/2014 08/23/2016 Overview: Images from the original note were not included. [facility] Surgeon: Modesto Cifuentes M.D. Informed Consent Completed: Yes STS Score: unsupported CAD: No Is intended procedure a CABG: No - is a beta hue ordered? No - reason: not indicated H & P completed: Yes 10/28/14 PA/LAT: Completed CT: Completed MRI: N/A LE US: N/A Cath: Yes - reviewed: Yes Echo:Completed EKG: Completed EF %: 65 PI's: N/A Carotid: N/A Mapping: N/A Dental: Completed PFT's: N/A No results for input(s): WBC, HB, HCT, PLT, INR, CREAT in the last 72 hours. UA: Normal HCG:N/A ABO/ABO Confirmed: Yes Blood ordered: No SA Swab: Yes - results: Negative Last Dose of Anticoagulation: OTC 11/12/14 Op Note: N/A Pacemaker Check: N/A Consults: none DM: Yes, A1c: 6.6% Cardiac Surgical prep: N/A SIGNATURE: JERSON Tian CHECKED BY: [email or web address] DATE of SERVICE: 11/14/2014 TIME of SERVICE: 10:59 AM discharge planning 11/10/2014 11/12/2014 Overview: 64yo male without any concerns presently Preop testing 11/10/2014 11/12/2014 Overview: Images from the original note were not included. [facility] Surgeon: Modesto Cifuentes M.D. Informed Consent Completed: pending STS Score: unsupported CAD: Yes - CAD on Problem List: Yes Is intended procedure a CABG: No - is a beta hue ordered? No - reason: not indicated H & P completed: Yes PA/LAT: Completed CT: Completed MRI: N/A LE US: N/A Cath: Yes - reviewed: Yes Echo:Completed EKG: Completed EF %: 65 PI's: Completed Carotid: N/A Mapping: N/A Dental: Pending PFT's: Completed No results for input(s): WBC, HB, HCT, PLT, INR, CREAT in the last 72 hours. UA: Normal HCG:N/A ABO/ABO Confirmed: Yes Blood ordered: No SA Swab: Yes - results: Pending Last Dose of Anticoagulation: vit basa LD 11/03 Op Note: N/A Pacemaker Check: N/A Consults: none DM: No Cardiac Surgical prep: N/A SIGNATURE: Kate Smith RN CHECKED BY: DATE of SERVICE: 11/10/2014 TIME of SERVICE: 10:05 AM Right rotator cuff tear 12/31/2013 08/25/19 17 Pain in joint, shoulder region 12/16/2013 0 08/24/2016 Essential hypertension, benign 12/03/2013 0 11/19/2014 Overview: Home RX; Nortvasc, ACEi A/P: NTg gtt to keep MAPS 65-75. Wean off. Hydralazine prn. Start BB when off Epi. Pain in joint, lower leg 04/16/2013 017 Degenerative tear of medial meniscus 04/16/2013 11/13/2020 Anxiety 07/08/2011 11/13/2020 Overview: Home Rx; Prozac. A/p Restarted Prozac. Esophagitis, unspecified 04/23/2009 017 Acute gastritis without mention of hemorrhage 08/24/2016 Trochanteric bursitis 03/05/2009 11/12/2014 Nontoxic uninodular goiter 01/16/200902/24 Overview: 08/13/19 US thyroid right mid-pole thyroid solid nodule 9 x 7 x 4 mm stable since 2016 Last Assessment & Plan: Assessment: under surveillance Nonallopathic lesion of sacr al region, not elsewhere classified 01/02/2009 11/13/2020 Osteoarthrosis, unspecified whether generalized or localized, unspecified site 11/12/2008 11/13/2020 ABSCESS GROIN 07/23/2008 08/23/2016 Obesity, unspecified 07/15/2008 09/16/2020 Pain in joint, pelvic region and thigh 9 08/24/2016 INTRINSIC ASTHMA UNSPECIFIED 09/03/2007 Other seborrheic keratosis 08/07/200708/23 Calcaneal spur 11/13/2020 Generalized anxiety disorder Overview: Anxiety, Generalized Unspecified asthma(493.90) 09/02 Asthma 08/24/2016 documented as of this encounter (statuses as of 02/15/2022) [facility]2020 History of Past illness Narrative* Problem Noted Date Resolved Date Primary osteoarthritis of left knee 12/08/2019 11/13/2020 Bruit of left carotid artery 12/05/2019 Last Assessment & Plan: Assessment: pending Carotid US Chronic left shoulder pain 10/04/201709/16 Heartburn 02/27/2017 11/13/2020 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 02/17/2017 12/05/2019 Overview: Added automatically from request for surgery [id number] Acute pain of left knee 12/26/2016 11/14/19 Chronic right shoulder pain 12/26/2016 04/0 12/2020 Gross hematuria 11/24/2016 11/13/2020 Malignant neoplasm of kidney excluding renal pel vis 10/21/2016 02/27/2017 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, without long-term current use of insulin 09/30/2016 09/30/2016 Neuropathy 09/30/2016 11/13/2020 Last Assessment & Plan: Assessment: stable on rx Asthma with COPD with exacerbation 08/24/2016 02/27/2017 Counseling and coordination of care 12/15/2014 08/24/2016 SUMMARY 11/21/2014 08/24/2016 Overview: Indication for hospital admission/procedure: Aortic aneurysm LVEF: 65% LVH RVF: Normal Important/Relevant PMH/PSH: BAV, Congenital anomaly of aorta, SIVAKUMAR, Asthma, HTN, HPL, DM, anxiety Preoperative Hospital Course Procedure/Surgeries: 11/17/2014 Mini-BAV repair, Ascending aortic replacement Airway Difficulty: No OR Course: Coagulopathy/bleeding requiring correction with 20u cryo, 8u FFP, 4u plts, 3uprbcs and 2 pump runs for repair of aortic cannulation site Pacing wires: out Postoperative Course/General Impression: S/p AVr/Asc aorta replacement. Plan to wean o2, pep, oob, increase diuresis, cont BB, pain and glucose control. Issues to communicate at signout: CT removed CPAP at night echo done CTA done PT rec acute rehab Needs much encouragement wires out / d/c to acute rehab today Discharge planning 11/21/2014 05/03/2016 Overview: Pt from [place], [place]. PT rec acute rehab; CM working on placement. Leaving for [facility] in-pt rehab today Hypertension 11/20/2014 02/27/2017 Overview: History: pre op on monopril, norv, Assessment: normotensive currently Plan: Cont BB , cont lasix Atelectasis 11/18/2014 11/19/2014 Overview: Bilateral on CXR. A/P: PEP, EZPAP OOBTC. Volume overload 11/18/2014 08/24/2016 Overview: History: post op Assessment: wt up 5 kg from pre op Plan: cont diuresis On mechanically assisted ventilation 11/17/2014 11/19/2014 Overview: Grade 1 airway. WTE when awake and stable. Extubated on DOS. CPAP at night PEP. Cardiac insufficiency following cardiac surgery 11/17/2014 11/20/2014 Overview: Low CI. CVP low. A/p Epi gtt off. Start BB. Pre-op testing 11/14/2014 08/23/2016 Overview: Images from the original note were not included. [facility] Surgeon: Modesto Cifuentes M.D. Informed Consent Completed: Yes STS Score: unsupported CAD: No Is intended procedure a CABG: No - is a beta hue ordered? No - reason: not indicated H & P completed: Yes 10/28/14 PA/LAT: Completed CT: Completed MRI: N/A LE US: N/A Cath: Yes - reviewed: Yes Echo:Completed EKG: Completed EF %: 65 PI's: N/A Carotid: N/A Mapping: N/A Dental: Completed PFT's: N/A No results for input(s): WBC, HB, HCT, PLT, INR, CREAT in the last 72 hours. UA: Normal HCG:N/A ABO/ABO Confirmed: Yes Blood ordered: No SA Swab: Yes - results: Negative Last Dose of Anticoagulation: OTC 11/12/14 Op Note: N/A Pacemaker Check: N/A Consults: none DM: Yes, A1c: 6.6% Cardiac Surgical prep: N/A SIGNATURE: Laura Mathews [employer]TING[employer] TECHNICIAN CHECKED BY: [email or web address] DATE of SERVICE: 11/14/2014 TIME of SERVICE: 10:59 AM discharge planning 11/10/2014 11/12/2014 Overview: 64yo male without any concerns presently Preop testing 11/10/2014 11/12/2014 Overview: Images from the original note were not included. [facility] Surgeon: Modesto Cifuentes M.D. Informed Consent Completed: pending STS Score: unsupported CAD: Yes - CAD on Problem List: Yes Is intended procedure a CABG: No - is a beta hue ordered? No - reason: not indicated H & P completed: Yes PA/LAT: Completed CT: Completed MRI: N/A LE US: N/A Cath: Yes - reviewed: Yes Echo:Completed EKG: Completed EF %: 65 PI's: Completed Carotid: N/A Mapping: N/A Dental: Pending PFT's: Completed No results for input(s): WBC, HB, HCT, PLT, INR, CREAT in the last 72 hours. UA: Normal HCG:N/A ABO/ABO Confirmed: Yes Blood ordered: No SA Swab: Yes - results: Pending Last Dose of Anticoagulation: vit basa LD 11/03 Op Note: N/A Pacemaker Check: N/A Consults: none DM: No Cardiac Surgical prep: N/A SIGNATURE: Kate Smith RN CHECKED BY: DATE of SERVICE: 11/10/2014 TIME of SERVICE: 10:05 AM Right rotator cuff tear 12/31/2013 08/25/19 17 Pain in joint, shoulder region 12/16/2013 0 08/24/2016 Essential hypertension, benign 12/03/2013 0 11/19/2014 Overview: Home RX; Nortvasc, ACEi A/P: NTg gtt to keep MAPS 65-75. Wean off. Hydralazine prn. Start BB when off Epi. Pain in joint, lower leg 04/16/2013 017 Degenerative tear of medial meniscus 04/16/2013 11/13/2020 Anxiety 07/08/2011 11/13/2020 Overview: Home Rx; Prozac. A/p Restarted Prozac. Esophagitis, unspecified 04/23/2009 017 Acute gastritis without mention of hemorrhage 08/24/2016 Trochanteric bursitis 03/05/2009 11/12/2014 Nontoxic uninodular goiter 01/16/200902/24 Overview: 08/13/19 US thyroid right mid-pole thyroid solid nodule 9 x 7 x 4 mm stable since 2016 Last Assessment & Plan: Assessment: under surveillance Nonallopathic lesion of sacr al region, not elsewhere classified 01/02/2009 11/13/2020 Osteoarthrosis, unspecified whether generalized or localized, unspecified site 11/12/2008 11/13/2020 ABSCESS GROIN 07/23/2008 08/23/2016 Obesity, unspecified 07/15/2008 09/16/2020 Pain in joint, pelvic region and thigh 9 08/24/2016 INTRINSIC ASTHMA UNSPECIFIED 09/03/2007 Other seborrheic keratosis 08/07/200708/23 Calcaneal spur 11/13/2020 Generalized anxiety disorder Overview: Anxiety, Generalized Unspecified asthma(493.90) 09/02 Asthma 08/24/2016 documented as of this encounter (statuses as of 02/15/2022) [facility]06[facility]2020 History of Past illness Narrative* Problem Noted Date Resolved Date Primary osteoarthritis of left knee 12/08/2019 11/13/2020 Bruit of left carotid artery 12/05/2019 Last Assessment & Plan: Assessment: pending Carotid US Chronic left shoulder pain 10/04/201709/16 Heartburn 02/27/2017 11/13/2020 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 02/17/2017 12/05/2019 Overview: Added automatically from request for surgery [id number] Acute pain of left knee 12/26/2016 06/04/20 21 Chronic right shoulder pain 12/26/2016 04/0 12/2020 Gross hematuria 11/24/2016 11/13/2020 Malignant neoplasm of kidney excluding renal pel vis 10/21/2016 02/27/2017 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, without long-term current use of insulin 09/30/2016 09/30/2016 Neuropathy 09/30/2016 11/13/2020 Last Assessment & Plan: Assessment: stable on rx Asthma with COPD with exacerbation 08/24/2016 02/27/2017 Counseling and coordination of care 12/15/2014 08/24/2016 SUMMARY 11/21/2014 08/24/2016 Overview: Indication for hospital admission/procedure: Aortic aneurysm LVEF: 65% LVH RVF: Normal Important/Relevant PMH/PSH: BAV, Congenital anomaly of aorta, SIVAKUMAR, Asthma, HTN, HPL, DM, anxiety Preoperative Hospital Course Procedure/Surgeries: 11/17/2014 Mini-BAV repair, Ascending aortic replacement Airway Difficulty: No OR Course: Coagulopathy/bleeding requiring correction with 20u cryo, 8u FFP, 4u plts, 3uprbcs and 2 pump runs for repair of aortic cannulation site Pacing wires: out Postoperative Course/General Impression: S/p AVr/Asc aorta replacement. Plan to wean o2, pep, oob, increase diuresis, cont BB, pain and glucose control. Issues to communicate at signout: CT removed CPAP at night echo done CTA done PT rec acute rehab Needs much encouragement wires out 11/23 d/c to acute rehab today Discharge planning 11/21/2014 05/03/2016 Overview: Pt from [place], [place]. PT rec acute rehab; CM working on placement. Leaving for [facility] in-[facility] rehab today Hypertension 11/20/2014 02/27/2017 Overview: History: pre op on monopril, norv, Assessment: normotensive currently Plan: Cont BB , cont lasix Atelectasis 11/18/2014 11/19/2014 Overview: Bilateral on CXR. A/P: PEP, EZPAP OOBTC. Volume overload 11/18/2014 08/24/2016 Overview: History: post op Assessment: wt up 5 kg from pre op Plan: cont diuresis On mechanically assisted ventilation 11/17/2014 11/19/2014 Overview: Grade 1 airway. WTE when awake and stable. Extubated on DOS. CPAP at night PEP. Cardiac insufficiency following cardiac surgery 11/17/2014 11/20/2014 Overview: Low CI. CVP low. A/p Epi gtt off. Start BB. Pre-op testing 11/14/2014 08/23/2016 Overview: Images from the original note were not included. [facility] Surgeon: Modesto Cifuentes M.D. Informed Consent Completed: Yes STS Score: unsupported CAD: No Is intended procedure a CABG: No - is a beta hue ordered? No - reason: not indicated H & P completed: Yes 10/28/14 PA/LAT: Completed CT: Completed MRI: N/A LE US: N/A Cath: Yes - reviewed: Yes Echo:Completed EKG: Completed EF %: 65 PI's: N/A Carotid: N/A Mapping: N/A Dental: Completed PFT's: N/A No results for input(s): WBC, HB, HCT, PLT, INR, CREAT in the last 72 hours. UA: Normal HCG:N/A ABO/ABO Confirmed: Yes Blood ordered: No SA Swab: Yes - results: Negative Last Dose of Anticoagulation: OTC 11/12/14 Op Note: N/A Pacemaker Check: N/A Consults: none DM: Yes, A1c: 6.6% Cardiac Surgical prep: N/A SIGNATURE: JERSON Tian CHECKED BY: [email or web address] DATE of SERVICE: 11/14/2014 TIME of SERVICE: 10:59 AM discharge planning 11/10/2014 11/12/2014 Overview: 64yo male without any concerns presently Preop testing 11/10/2014 11/12/2014 Overview: Images from the original note were not included. [facility] Surgeon: Modesto Cifuentes M.D. Informed Consent Completed: pending STS Score: unsupported CAD: Yes - CAD on Problem List: Yes Is intended procedure a CABG: No - is a beta hue ordered? No - reason: not indicated H & P completed: Yes PA/LAT: Completed CT: Completed MRI: N/A LE US: N/A Cath: Yes - reviewed: Yes Echo:Completed EKG: Completed EF %: 65 PI's: Completed Carotid: N/A Mapping: N/A Dental: Pending PFT's: Completed No results for input(s): WBC, HB, HCT, PLT, INR, CREAT in the last 72 hours. UA: Normal HCG:N/A ABO/ABO Confirmed: Yes Blood ordered: No SA Swab: Yes - results: Pending Last Dose of Anticoagulation: vit basa LD 11/03 Op Note: N/A Pacemaker Check: N/A Consults: none DM: No Cardiac Surgical prep: N/A SIGNATURE: Kate Smith RN CHECKED BY: DATE of SERVICE: 11/10/2014 TIME of SERVICE: 10:05 AM Right rotator cuff tear 12/31/2013 08/25/19 17 Pain in joint, shoulder region 12/16/2013 0 08/24/2016 Essential hypertension, benign 12/03/2013 0 11/19/2014 Overview: Home RX; Nortvasc, ACEi A/P: NTg gtt to keep MAPS 65-75. Wean off. Hydralazine prn. Start BB when off Epi. Pain in joint, lower leg 04/16/2013 017 Degenerative tear of medial meniscus 04/16/2013 11/13/2020 Anxiety 07/08/2011 11/13/2020 Overview: Home Rx; Prozac. A/p Restarted Prozac. Esophagitis, unspecified 04/23/2009 017 Acute gastritis without mention of hemorrhage 08/24/2016 Trochanteric bursitis 03/05/2009 11/12/2014 Nontoxic uninodular goiter 01/16/200902/24 Overview: 08/13/19 US thyroid right mid-pole thyroid solid nodule 9 x 7 x 4 mm stable since 2016 Last Assessment & Plan: Assessment: under surveillance Nonallopathic lesion of sacr al region, not elsewhere classified 01/02/2009 11/13/2020 Osteoarthrosis, unspecified whether generalized or localized, unspecified site 11/12/2008 11/13/2020 ABSCESS GROIN 07/23/2008 08/23/2016 Obesity, unspecified 07/15/2008 09/16/2020 Pain in joint, pelvic region and thigh 9 08/24/2016 INTRINSIC ASTHMA UNSPECIFIED 09/03/2007 Other seborrheic keratosis 08/07/200708/23 Calcaneal spur 11/13/2020 Generalized anxiety disorder Overview: Anxiety, Generalized Unspecified asthma(493.90) 09/02 Asthma 08/24/2016 documented as of this encounter (statuses as of 02/21/2022) [facility] History of Past illness Narrative* Problem Noted Date Resolved Date Primary osteoarthritis of left knee 12/08/2019 11/13/2020 Bruit of left carotid artery 12/05/2019 Last Assessment & Plan: Assessment: pending Carotid US Chronic left shoulder pain 10/04/201709/16 Heartburn 02/27/2017 11/13/2020 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 02/17/2017 12/05/2019 Overview: Added automatically from request for surgery [id number] Acute pain of left knee 12/26/2016 11/14/19 Chronic right shoulder pain 12/26/2016 04/0 12/2020 Gross hematuria 11/24/2016 11/13/2020 Malignant neoplasm of kidney excluding renal pel vis 10/21/2016 02/27/2017 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, without long-term current use of insulin 09/30/2016 09/30/2016 Neuropathy 09/30/2016 11/13/2020 Last Assessment & Plan: Assessment: stable on rx Asthma with COPD with exacerbation 08/24/2016 02/27/2017 Counseling and coordination of care 12/15/2014 08/24/2016 SUMMARY 11/21/2014 08/24/2016 Overview: Indication for hospital admission/procedure: Aortic aneurysm LVEF: 65% LVH RVF: Normal Important/Relevant PMH/PSH: BAV, Congenital anomaly of aorta, SIVAKUMAR, Asthma, HTN, HPL, DM, anxiety Preoperative Hospital Course Procedure/Surgeries: 11/17/2014 Mini-BAV repair, Ascending aortic replacement Airway Difficulty: No OR Course: Coagulopathy/bleeding requiring correction with 20u cryo, 8u FFP, 4u plts, 3uprbcs and 2 pump runs for repair of aortic cannulation site Pacing wires: out Postoperative Course/General Impression: S/p AVr/Asc aorta replacement. Plan to wean o2, pep, oob, increase diuresis, cont BB, pain and glucose control. Issues to communicate at signout: CT removed CPAP at night echo done CTA done PT rec acute rehab Needs much encouragement wires out 11/23 d/c to acute rehab today Discharge planning 11/21/2014 05/03/2016 Overview: Pt from [place], [place]. PT rec acute rehab; CM working on placement. Leaving for [facility] in-pt rehab today Hypertension 11/20/2014 02/27/2017 Overview: History: pre op on monopril, norv, Assessment: normotensive currently Plan: Cont BB , cont lasix Atelectasis 11/18/2014 11/19/2014 Overview: Bilateral on CXR. A/P: PEP, EZPAP OOBTC. Volume overload 11/18/2014 08/24/2016 Overview: History: post op Assessment: wt up 5 kg from pre op Plan: cont diuresis On mechanically assisted ventilation 11/17/2014 11/19/2014 Overview: Grade 1 airway. WTE when awake and stable. Extubated on DOS. CPAP at night PEP. Cardiac insufficiency following cardiac surgery 11/17/2014 11/20/2014 Overview: Low CI. CVP low. A/p Epi gtt off. Start BB. Pre-op testing 11/14/2014 08/23/2016 Overview: Images from the original note were not included. [facility] Surgeon: Modesto Cifuentes M.D. Informed Consent Completed: Yes STS Score: unsupported CAD: No Is intended procedure a CABG: No - is a beta hue ordered? No - reason: not indicated H & P completed: Yes 10/28/14 PA/LAT: Completed CT: Completed MRI: N/A LE US: N/A Cath: Yes - reviewed: Yes Echo:Completed EKG: Completed EF %: 65 PI's: N/A Carotid: N/A Mapping: N/A Dental: Completed PFT's: N/A No results for input(s): WBC, HB, HCT, PLT, INR, CREAT in the last 72 hours. UA: Normal HCG:N/A ABO/ABO Confirmed: Yes Blood ordered: No SA Swab: Yes - results: Negative Last Dose of Anticoagulation: OTC 11/12/14 Op Note: N/A Pacemaker Check: N/A Consults: none DM: Yes, A1c: 6.6% Cardiac Surgical prep: N/A SIGNATURE: JERSON Tian CHECKED BY: [email or web address] DATE of SERVICE: 11/14/2014 TIME of SERVICE: 10:59 AM discharge planning 11/10/2014 11/12/2014 Overview: 64yo male without any concerns presently Preop testing 11/10/2014 11/12/2014 Overview: Images from the original note were not included. [facility] Surgeon: Modesto Cifuentes M.D. Informed Consent Completed: pending STS Score: unsupported CAD: Yes - CAD on Problem List: Yes Is intended procedure a CABG: No - is a beta hue ordered? No - reason: not indicated H & P completed: Yes PA/LAT: Completed CT: Completed MRI: N/A LE US: N/A Cath: Yes - reviewed: Yes Echo:Completed EKG: Completed EF %: 65 PI's: Completed Carotid: N/A Mapping: N/A Dental: Pending PFT's: Completed No results for input(s): WBC, HB, HCT, PLT, INR, CREAT in the last 72 hours. UA: Normal HCG:N/A ABO/ABO Confirmed: Yes Blood ordered: No SA Swab: Yes - results: Pending Last Dose of Anticoagulation: vit basa LD 11/03 Op Note: N/A Pacemaker Check: N/A Consults: none DM: No Cardiac Surgical prep: N/A SIGNATURE: Kate Smith RN CHECKED BY: DATE of SERVICE: 11/10/2014 TIME of SERVICE: 10:05 AM Right rotator cuff tear 12/31/2013 08/25/19 17 Pain in joint, shoulder region 12/16/2013 0 08/24/2016 Essential hypertension, benign 12/03/2013 0 11/19/2014 Overview: Home RX; Nortvasc, ACEi A/P: NTg gtt to keep MAPS 65-75. Wean off. Hydralazine prn. Start BB when off Epi. Pain in joint, lower leg 04/16/2013 017 Degenerative tear of medial meniscus 04/16/2013 11/13/2020 Anxiety 07/08/2011 11/13/2020 Overview: Home Rx; Prozac. A/p Restarted Prozac. Esophagitis, unspecified 04/23/2009 017 Acute gastritis without mention of hemorrhage 08/24/2016 Trochanteric bursitis 03/05/2009 11/12/2014 Nontoxic uninodular goiter 01/16/200902/24 Overview: 08/13/19 US thyroid right mid-pole thyroid solid nodule 9 x 7 x 4 mm stable since 2016 Last Assessment & Plan: Assessment: under surveillance Nonallopathic lesion of sacr al region, not elsewhere classified 01/02/2009 11/13/2020 Osteoarthrosis, unspecified whether generalized or localized, unspecified site 11/12/2008 11/13/2020 ABSCESS GROIN 07/23/2008 08/23/2016 Obesity, unspecified 07/15/2008 09/16/2020 Pain in joint, pelvic region and thigh 9 08/24/2016 INTRINSIC ASTHMA UNSPECIFIED 09/03/2007 Other seborrheic keratosis 08/07/200708/23 Calcaneal spur 11/13/2020 Generalized anxiety disorder Overview: Anxiety, Generalized Unspecified asthma(493.90) 09/02 Asthma 08/24/2016 documented as of this encounter (statuses as of 02/22/2022) [facility] History of Past illness Narrative* Problem Noted Date Resolved Date Primary osteoarthritis of left knee 12/08/2019 11/13/2020 Bruit of left carotid artery 12/05/2019 Last Assessment & Plan: Assessment: pending Carotid US Chronic left shoulder pain 10/04/201709/16 Heartburn 02/27/2017 11/13/2020 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 02/17/2017 12/05/2019 Overview: Added automatically from request for surgery [id number] Acute pain of left knee 12/26/2016 11/14/19 Chronic right shoulder pain 12/26/2016 04/0 12/2020 Gross hematuria 11/24/2016 11/13/2020 Malignant neoplasm of kidney excluding renal pel vis 10/21/2016 02/27/2017 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, without long-term current use of insulin 09/30/2016 09/30/2016 Neuropathy 09/30/2016 11/13/2020 Last Assessment & Plan: Assessment: stable on rx Asthma with COPD with exacerbation 08/24/2016 02/27/2017 Counseling and coordination of care 12/15/2014 08/24/2016 SUMMARY 11/21/2014 08/24/2016 Overview: Indication for hospital admission/procedure: Aortic aneurysm LVEF: 65% LVH RVF: Normal Important/Relevant PMH/PSH: BAV, Congenital anomaly of aorta, SIVAKUMAR, Asthma, HTN, HPL, DM, anxiety Preoperative Hospital Course Procedure/Surgeries: 11/17/2014 Mini-BAV repair, Ascending aortic replacement Airway Difficulty: No OR Course: Coagulopathy/bleeding requiring correction with 20u cryo, 8u FFP, 4u plts, 3uprbcs and 2 pump runs for repair of aortic cannulation site Pacing wires: out Postoperative Course/General Impression: S/p AVr/Asc aorta replacement. Plan to wean o2, pep, oob, increase diuresis, cont BB, pain and glucose control. Issues to communicate at signout: CT removed CPAP at night echo done CTA done PT rec acute rehab Needs much encouragement wires out 11/23 d/c to acute rehab today Discharge planning 11/21/2014 05/03/2016 Overview: Pt from [place], [place]. PT rec acute rehab; CM working on placement. Leaving for [facility] in-pt rehab today Hypertension 11/20/2014 02/27/2017 Overview: History: pre op on monopril, norv, Assessment: normotensive currently Plan: Cont BB , cont lasix Atelectasis 11/18/2014 11/19/2014 Overview: Bilateral on CXR. A/P: PEP, EZPAP OOBTC. Volume overload 11/18/2014 08/24/2016 Overview: History: post op Assessment: wt up 5 kg from pre op Plan: cont diuresis On mechanically assisted ventilation 11/17/2014 11/19/2014 Overview: Grade 1 airway. WTE when awake and stable. Extubated on DOS. CPAP at night PEP. Cardiac insufficiency following cardiac surgery 11/17/2014 11/20/2014 Overview: Low CI. CVP low. A/p Epi gtt off. Start BB. Pre-op testing 11/14/2014 08/23/2016 Overview: Images from the original note were not included. [facility] Surgeon: Modesto Cifuentes M.D. Informed Consent Completed: Yes STS Score: unsupported CAD: No Is intended procedure a CABG: No - is a beta hue ordered? No - reason: not indicated H & P completed: Yes 10/28/14 PA/LAT: Completed CT: Completed MRI: N/A LE US: N/A Cath: Yes - reviewed: Yes Echo:Completed EKG: Completed EF %: 65 PI's: N/A Carotid: N/A Mapping: N/A Dental: Completed PFT's: N/A No results for input(s): WBC, HB, HCT, PLT, INR, CREAT in the last 72 hours. UA: Normal HCG:N/A ABO/ABO Confirmed: Yes Blood ordered: No SA Swab: Yes - results: Negative Last Dose of Anticoagulation: OTC 11/12/14 Op Note: N/A Pacemaker Check: N/A Consults: none DM: Yes, A1c: 6.6% Cardiac Surgical prep: N/A SIGNATURE: JERSON Tian CHECKED BY: [email or web address] DATE of SERVICE: 11/14/2014 TIME of SERVICE: 10:59 AM discharge planning 11/10/2014 11/12/2014 Overview: 64yo male without any concerns presently Preop testing 11/10/2014 11/12/2014 Overview: Images from the original note were not included. [facility] PRE-OP CHECKLIST Surgeon: Modesto Cifuentes M.D. Informed Consent Completed: pending STS Score: unsupported CAD: Yes - CAD on Problem List: Yes Is intended procedure a CABG: No - is a beta hue ordered? No - reason: not indicated H & P completed: Yes PA/LAT: Completed CT: Completed MRI: N/A LE US: N/A Cath: Yes - reviewed: Yes Echo:Completed EKG: Completed EF %: 65 PI's: Completed Carotid: N/A Mapping: N/A Dental: Pending PFT's: Completed No results for input(s): WBC, HB, HCT, PLT, INR, CREAT in the last 72 hours. UA: Normal HCG:N/A ABO/ABO Confirmed: Yes Blood ordered: No SA Swab: Yes - results: Pending Last Dose of Anticoagulation: vit basa LD 11/03 Op Note: N/A Pacemaker Check: N/A Consults: none DM: No Cardiac Surgical prep: N/A SIGNATURE: Kate Smith RN CHECKED BY: DATE of SERVICE: 11/10/2014 TIME of SERVICE: 10:05 AM Right rotator cuff tear 12/31/2013 08/25/19 17 Pain in joint, shoulder region 12/16/2013 0 08/24/2016 Essential hypertension, benign 12/03/2013 0 11/19/2014 Overview: Home RX; Nortvasc, ACEi A/P: NTg gtt to keep MAPS 65-75. Wean off. Hydralazine prn. Start BB when off Epi. Pain in joint, lower leg 04/16/2013 017 Degenerative tear of medial meniscus 04/16/2013 11/13/2020 Anxiety 07/08/2011 11/13/2020 Overview: Home Rx; Prozac. A/p Restarted Prozac. Esophagitis, unspecified 04/23/2009 017 Acute gastritis without mention of hemorrhage 08/24/2016 Trochanteric bursitis 03/05/2009 11/12/2014 Nontoxic uninodular goiter 01/16/200902/24 Overview: 08/13/19 thyroid right mid-pole thyroid solid nodule 9 x 7 x 4 mm stable since 2016 Last Assessment & Plan: Assessment: under surveillance Nonallopathic lesion of sacr al region, not elsewhere classified 01/02/2009 11/13/2020 Osteoarthrosis, unspecified whether generalized or localized, unspecified site 11/12/2008 11/13/2020 ABSCESS GROIN 07/23/2008 08/23/2016 Obesity, unspecified 07/15/2008 09/16/2020 Pain in joint, pelvic region and thigh 9 08/24/2016 INTRINSIC ASTHMA UNSPECIFIED 09/03/2007 Other seborrheic keratosis 08/07/200708/23 Calcaneal spur 11/13/2020 Generalized anxiety disorder Overview: Anxiety, Generalized Unspecified asthma(493.90) 09/02 Asthma 08/24/2016 documented as of this encounter (statuses as of 02/22/2022) [facility]06-[facility]-2020 History of Past illness Narrative* Problem Noted Date Resolved Date Primary osteoarthritis of left knee 12/08/2019 11/13/2020 Bruit of left carotid artery 12/05/2019 Last Assessment & Plan: Assessment: pending Carotid US Chronic left shoulder pain 10/04/201709/16 Heartburn 02/27/2017 11/13/2020 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 02/17/2017 12/05/2019 Overview: Added automatically from request for surgery [id number] Acute pain of left knee 12/26/2016 11/14/19 Chronic right shoulder pain 12/26/2016 04/0 12/2020 Gross hematuria 11/24/2016 11/13/2020 Malignant neoplasm of kidney excluding renal pel vis 10/21/2016 02/27/2017 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, without long-term current use of insulin 09/30/2016 09/30/2016 Neuropathy 09/30/2016 11/13/2020 Last Assessment & Plan: Assessment: stable on rx Asthma with COPD with exacerbation 08/24/2016 02/27/2017 Counseling and coordination of care 12/15/2014 08/24/2016 SUMMARY 11/21/2014 08/24/2016 Overview: Indication for hospital admission/procedure: Aortic aneurysm LVEF: 65% LVH RVF: Normal Important/Relevant PMH/PSH: BAV, Congenital anomaly of aorta, SIVAKUMAR, Asthma, HTN, HPL, DM, anxiety Preoperative Hospital Course Procedure/Surgeries: 11/17/2014 Mini-BAV repair, Ascending aortic replacement Airway Difficulty: No OR Course: Coagulopathy/bleeding requiring correction with 20u cryo, 8u FFP, 4u plts, 3uprbcs and 2 pump runs for repair of aortic cannulation site Pacing wires: out Postoperative Course/General Impression: S/p AVr/Asc aorta replacement. Plan to wean o2, pep, oob, increase diuresis, cont BB, pain and glucose control. Issues to communicate at signout: CT removed CPAP at night echo done CTA done PT rec acute rehab Needs much encouragement wires out 11/23 d/c to acute rehab today Discharge planning 11/21/2014 05/03/2016 Overview: Pt from [place], [place]. PT rec acute rehab; CM working on placement. Leaving for [facility] in-[facility] rehab today Hypertension 11/20/2014 02/27/2017 Overview: History: pre op on monopril, norv, Assessment: normotensive currently Plan: Cont BB , cont lasix Atelectasis 11/18/2014 11/19/2014 Overview: Bilateral on CXR. A/P: PEP, EZPAP OOBTC. Volume overload 11/18/2014 08/24/2016 Overview: History: post op Assessment: wt up 5 kg from pre op Plan: cont diuresis On mechanically assisted ventilation 11/17/2014 11/19/2014 Overview: Grade 1 airway. WTE when awake and stable. Extubated on DOS. CPAP at night PEP. Cardiac insufficiency following cardiac surgery 11/17/2014 11/20/2014 Overview: Low CI. CVP low. A/p Epi gtt off. Start BB. Pre-op testing 11/14/2014 08/23/2016 Overview: Images from the original note were not included. [facility] Surgeon: Modesto Cifuentes M.D. Informed Consent Completed: Yes STS Score: unsupported CAD: No Is intended procedure a CABG: No - is a beta hue ordered? No - reason: not indicated H & P completed: Yes 10/28/14 PA/LAT: Completed CT: Completed MRI: N/A LE US: N/A Cath: Yes - reviewed: Yes Echo:Completed EKG: Completed EF %: 65 PI's: N/A Carotid: N/A Mapping: N/A Dental: Completed PFT's: N/A No results for input(s): WBC, HB, HCT, PLT, INR, CREAT in the last 72 hours. UA: Normal HCG:N/A ABO/ABO Confirmed: Yes Blood ordered: No SA Swab: Yes - results: Negative Last Dose of Anticoagulation: OTC 11/12/14 Op Note: N/A Pacemaker Check: N/A Consults: none DM: Yes, A1c: 6.6% Cardiac Surgical prep: N/A SIGNATURE: JERSON Tian CHECKED BY: [email or web address] DATE of SERVICE: 11/14/2014 TIME of SERVICE: 10:59 AM discharge planning 11/10/2014 11/12/2014 Overview: 64yo male without any concerns presently Preop testing 11/10/2014 11/12/2014 Overview: Images from the original note were not included. [facility] Surgeon: Modesto Cifuentes M.D. Informed Consent Completed: pending STS Score: unsupported CAD: Yes - CAD on Problem List: Yes Is intended procedure a CABG: No - is a beta hue ordered? No - reason: not indicated H & P completed: Yes PA/LAT: Completed CT: Completed MRI: N/A LE US: N/A Cath: Yes - reviewed: Yes Echo:Completed EKG: Completed EF %: 65 PI's: Completed Carotid: N/A Mapping: N/A Dental: Pending PFT's: Completed No results for input(s): WBC, HB, HCT, PLT, INR, CREAT in the last 72 hours. UA: Normal HCG:N/A ABO/ABO Confirmed: Yes Blood ordered: No SA Swab: Yes - results: Pending Last Dose of Anticoagulation: vit basa LD 11/03 Op Note: N/A Pacemaker Check: N/A Consults: none DM: No Cardiac Surgical prep: N/A SIGNATURE: Kate Smith RN CHECKED BY: DATE of SERVICE: 11/10/2014 TIME of SERVICE: 10:05 AM Right rotator cuff tear 12/31/2013 08/25/19 17 Pain in joint, shoulder region 12/16/2013 0 08/24/2016 Essential hypertension, benign 12/03/2013 0 11/19/2014 Overview: Home RX; Nortvasc, ACEi A/P: NTg gtt to keep MAPS 65-75. Wean off. Hydralazine prn. Start BB when off Epi. Pain in joint, lower leg 04/16/2013 017 Degenerative tear of medial meniscus 04/16/2013 11/13/2020 Anxiety 07/08/2011 11/13/2020 Overview: Home Rx; Prozac. A/p Restarted Prozac. Esophagitis, unspecified 04/23/2009 017 Acute gastritis without mention of hemorrhage 08/24/2016 Trochanteric bursitis 03/05/2009 11/12/2014 Nontoxic uninodular goiter 01/16/200902/24 Overview: 08/13/19 US thyroid right mid-pole thyroid solid nodule 9 x 7 x 4 mm stable since 2016 Last Assessment & Plan: Assessment: under surveillance Nonallopathic lesion of sacr al region, not elsewhere classified 01/02/2009 11/13/2020 Osteoarthrosis, unspecified whether generalized or localized, unspecified site 11/12/2008 11/13/2020 ABSCESS GROIN 07/23/2008 08/23/2016 Obesity, unspecified 07/15/2008 09/16/2020 Pain in joint, pelvic region and thigh 9 08/24/2016 INTRINSIC ASTHMA UNSPECIFIED 09/03/2007 Other seborrheic keratosis 08/07/200708/23 Calcaneal spur 11/13/2020 Generalized anxiety disorder Overview: Anxiety, Generalized Unspecified asthma(493.90) 09/02 Asthma 08/24/2016 documented as of this encounter (statuses as of 02/22/2022) [facility]2020 History of Past illness Narrative* Problem Noted Date Resolved Date Primary osteoarthritis of left knee 12/08/2019 11/13/2020 Bruit of left carotid artery 12/05/2019 Last Assessment & Plan: Assessment: pending Carotid US Chronic left shoulder pain 10/04/201709/16 Heartburn 02/27/2017 11/13/2020 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 02/17/2017 12/05/2019 Overview: Added automatically from request for surgery [id number] Acute pain of left knee 12/26/2016 11/14/19 Chronic right shoulder pain 12/26/2016 04/0 12/2020 Gross hematuria 11/24/2016 11/13/2020 Malignant neoplasm of kidney excluding renal pel vis 10/21/2016 02/27/2017 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, without long-term current use of insulin 09/30/2016 09/30/2016 Neuropathy 09/30/2016 11/13/2020 Last Assessment & Plan: Assessment: stable on rx Asthma with COPD with exacerbation 08/24/2016 02/27/2017 Counseling and coordination of care 12/15/2014 08/24/2016 SUMMARY 11/21/2014 08/24/2016 Overview: Indication for hospital admission/procedure: Aortic aneurysm LVEF: 65% LVH RVF: Normal Important/Relevant PMH/PSH: BAV, Congenital anomaly of aorta, SIVAKUMAR, Asthma, HTN, HPL, DM, anxiety Preoperative Hospital Course Procedure/Surgeries: 11/17/2014 Mini-BAV repair, Ascending aortic replacement Airway Difficulty: No OR Course: Coagulopathy/bleeding requiring correction with 20u cryo, 8u FFP, 4u plts, 3uprbcs and 2 pump runs for repair of aortic cannulation site Pacing wires: out Postoperative Course/General Impression: S/p AVr/Asc aorta replacement. Plan to wean o2, pep, oob, increase diuresis, cont BB, pain and glucose control. Issues to communicate at signout: CT removed CPAP at night echo done CTA done PT rec acute rehab Needs much encouragement wires out 11/23 d/c to acute rehab today Discharge planning 11/21/2014 05/03/2016 Overview: Pt from [place], [place]. PT rec acute rehab; CM working on placement. Leaving for [facility] in-pt rehab today Hypertension 11/20/2014 02/27/2017 Overview: History: pre op on monopril, norv, Assessment: normotensive currently Plan: Cont BB , cont lasix Atelectasis 11/18/2014 11/19/2014 Overview: Bilateral on CXR. A/P: PEP, EZPAP OOBTC. Volume overload 11/18/2014 08/24/2016 Overview: History: post op Assessment: wt up 5 kg from pre op Plan: cont diuresis On mechanically assisted ventilation 11/17/2014 11/19/2014 Overview: Grade 1 airway. WTE when awake and stable. Extubated on DOS. CPAP at night PEP. Cardiac insufficiency following cardiac surgery 11/17/2014 11/20/2014 Overview: Low CI. CVP low. A/p Epi gtt off. Start BB. Pre-op testing 11/14/2014 08/23/2016 Overview: Images from the original note were not included. [facility] Surgeon: Modesto Cifuentes M.D. Informed Consent Completed: Yes STS Score: unsupported CAD: No Is intended procedure a CABG: No - is a beta hue ordered? No - reason: not indicated H & P completed: Yes 10/28/14 PA/LAT: Completed CT: Completed MRI: N/A LE US: N/A Cath: Yes - reviewed: Yes Echo:Completed EKG: Completed EF %: 65 PI's: N/A Carotid: N/A Mapping: N/A Dental: Completed PFT's: N/A No results for input(s): WBC, HB, HCT, PLT, INR, CREAT in the last 72 hours. UA: Normal HCG:N/A ABO/ABO Confirmed: Yes Blood ordered: No SA Swab: Yes - results: Negative Last Dose of Anticoagulation: OTC 11/12/14 Op Note: N/A Pacemaker Check: N/A Consults: none DM: Yes, A1c: 6.6% Cardiac Surgical prep: N/A SIGNATURE: JERSON Tian CHECKED BY: [email or web address] DATE of SERVICE: 11/14/2014 TIME of SERVICE: 10:59 AM discharge planning 11/10/2014 11/12/2014 Overview: 64yo male without any concerns presently Preop testing 11/10/2014 11/12/2014 Overview: Images from the original note were not included. [facility] Surgeon: Modesto Cifuentes M.D. Informed Consent Completed: pending STS Score: unsupported CAD: Yes - CAD on Problem List: Yes Is intended procedure a CABG: No - is a beta hue ordered? No - reason: not indicated H & P completed: Yes PA/LAT: Completed CT: Completed MRI: N/A LE US: N/A Cath: Yes - reviewed: Yes Echo:Completed EKG: Completed EF %: 65 PI's: Completed Carotid: N/A Mapping: N/A Dental: Pending PFT's: Completed No results for input(s): WBC, HB, HCT, PLT, INR, CREAT in the last 72 hours. UA: Normal HCG:N/A ABO/ABO Confirmed: Yes Blood ordered: No SA Swab: Yes - results: Pending Last Dose of Anticoagulation: vit basa LD 11/03 Op Note: N/A Pacemaker Check: N/A Consults: none DM: No Cardiac Surgical prep: N/A SIGNATURE: Kate Smith RN CHECKED BY: DATE of SERVICE: 11/10/2014 TIME of SERVICE: 10:05 AM Right rotator cuff tear 12/31/2013 08/25/19 17 Pain in joint, shoulder region 12/16/2013 0 08/24/2016 Essential hypertension, benign 12/03/2013 0 11/19/2014 Overview: Home RX; Nortvasc, ACEi A/P: NTg gtt to keep MAPS 65-75. Wean off. Hydralazine prn. Start BB when off Epi. Pain in joint, lower leg 04/16/2013 017 Degenerative tear of medial meniscus 04/16/2013 11/13/2020 Anxiety 07/08/2011 11/13/2020 Overview: Home Rx; Prozac. A/p Restarted Prozac. Esophagitis, unspecified 04/23/2009 017 Acute gastritis without mention of hemorrhage 08/24/2016 Trochanteric bursitis 03/05/2009 11/12/2014 Nontoxic uninodular goiter 01/16/200902/24 Overview: 08/13/19 US thyroid right mid-pole thyroid solid nodule 9 x 7 x 4 mm stable since 2016 Last Assessment & Plan: Assessment: under surveillance Nonallopathic lesion of sacr al region, not elsewhere classified 01/02/2009 11/13/2020 Osteoarthrosis, unspecified whether generalized or localized, unspecified site 11/12/2008 11/13/2020 ABSCESS GROIN 07/23/2008 08/23/2016 Obesity, unspecified 07/15/2008 09/16/2020 Pain in joint, pelvic region and thigh 9 08/24/2016 INTRINSIC ASTHMA UNSPECIFIED 09/03/2007 Other seborrheic keratosis 08/07/200708/23 Calcaneal spur 11/13/2020 Generalized anxiety disorder Overview: Anxiety, Generalized Unspecified asthma(493.90) 09/02 Asthma 08/24/2016 documented as of this encounter (statuses as of 02/22/2022) [facility] History of Past illness Narrative* Problem Noted Date Resolved Date Primary osteoarthritis of left knee 12/08/2019 11/13/2020 Bruit of left carotid artery 12/05/2019 Last Assessment & Plan: Assessment: pending Carotid US Chronic left shoulder pain 10/04/201709/16 Heartburn 02/27/2017 11/13/2020 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 02/17/2017 12/05/2019 Overview: Added automatically from request for surgery [id number] Acute pain of left knee 12/26/2016 11/14/19 Chronic right shoulder pain 12/26/2016 04/0 12/2020 Gross hematuria 11/24/2016 11/13/2020 Malignant neoplasm of kidney excluding renal pel vis 10/21/2016 02/27/2017 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, without long-term current use of insulin 09/30/2016 09/30/2016 Neuropathy 09/30/2016 11/13/2020 Last Assessment & Plan: Assessment: stable on rx Asthma with COPD with exacerbation 08/24/2016 02/27/2017 Counseling and coordination of care 12/15/2014 08/24/2016 SUMMARY 11/21/2014 08/24/2016 Overview: Indication for hospital admission/procedure: Aortic aneurysm LVEF: 65% LVH RVF: Normal Important/Relevant PMH/PSH: BAV, Congenital anomaly of aorta, SIVAKUMAR, Asthma, HTN, HPL, DM, anxiety Preoperative Hospital Course Procedure/Surgeries: 11/17/2014 Mini-BAV repair, Ascending aortic replacement Airway Difficulty: No OR Course: Coagulopathy/bleeding requiring correction with 20u cryo, 8u FFP, 4u plts, 3uprbcs and 2 pump runs for repair of aortic cannulation site Pacing wires: out Postoperative Course/General Impression: S/p AVr/Asc aorta replacement. Plan to wean o2, pep, oob, increase diuresis, cont BB, pain and glucose control. Issues to communicate at signout: CT removed CPAP at night echo done CTA done PT rec acute rehab Needs much encouragement wires out 11/23 d/c to acute rehab today Discharge planning 11/21/2014 05/03/2016 Overview: Pt from [place], [place]. PT rec acute rehab; CM working on placement. Leaving for [facility] in-pt rehab today Hypertension 11/20/2014 02/27/2017 Overview: History: pre op on monopril, norv, Assessment: normotensive currently Plan: Cont BB , cont lasix Atelectasis 11/18/2014 11/19/2014 Overview: Bilateral on CXR. A/P: PEP, EZPAP OOBTC. Volume overload 11/18/2014 08/24/2016 Overview: History: post op Assessment: wt up 5 kg from pre op Plan: cont diuresis On mechanically assisted ventilation 11/17/2014 11/19/2014 Overview: Grade 1 airway. WTE when awake and stable. Extubated on DOS. CPAP at night PEP. Cardiac insufficiency following cardiac surgery 11/17/2014 11/20/2014 Overview: Low CI. CVP low. A/p Epi gtt off. Start BB. Pre-op testing 11/14/2014 08/23/2016 Overview: Images from the original note were not included. [facility] Surgeon: Modesto Cifuentes M.D. Informed Consent Completed: Yes STS Score: unsupported CAD: No Is intended procedure a CABG: No - is a beta hue ordered? No - reason: not indicated H & P completed: Yes 10/28/14 PA/LAT: Completed CT: Completed MRI: N/A LE US: N/A Cath: Yes - reviewed: Yes Echo:Completed EKG: Completed EF %: 65 PI's: N/A Carotid: N/A Mapping: N/A Dental: Completed PFT's: N/A No results for input(s): WBC, HB, HCT, PLT, INR, CREAT in the last 72 hours. UA: Normal HCG:N/A ABO/ABO Confirmed: Yes Blood ordered: No SA Swab: Yes - results: Negative Last Dose of Anticoagulation: OTC 11/12/14 Op Note: N/A Pacemaker Check: N/A Consults: none DM: Yes, A1c: 6.6% Cardiac Surgical prep: N/A SIGNATURE: JERSON Tian CHECKED BY: [email or web address] DATE of SERVICE: 11/14/2014 TIME of SERVICE: 10:59 AM discharge planning 11/10/2014 11/12/2014 Overview: 64yo male without any concerns presently Preop testing 11/10/2014 11/12/2014 Overview: Images from the original note were not included. [facility] Surgeon: Modesto Cifuentes M.D. Informed Consent Completed: pending STS Score: unsupported CAD: Yes - CAD on Problem List: Yes Is intended procedure a CABG: No - is a beta hue ordered? No - reason: not indicated H & P completed: Yes PA/LAT: Completed CT: Completed MRI: N/A LE US: N/A Cath: Yes - reviewed: Yes Echo:Completed EKG: Completed EF %: 65 PI's: Completed Carotid: N/A Mapping: N/A Dental: Pending PFT's: Completed No results for input(s): WBC, HB, HCT, PLT, INR, CREAT in the last 72 hours. UA: Normal HCG:N/A ABO/ABO Confirmed: Yes Blood ordered: No SA Swab: Yes - results: Pending Last Dose of Anticoagulation: vit basa LD 11/03 Op Note: N/A Pacemaker Check: N/A Consults: none DM: No Cardiac Surgical prep: N/A SIGNATURE: Kate Smith RN CHECKED BY: DATE of SERVICE: 11/10/2014 TIME of SERVICE: 10:05 AM Right rotator cuff tear 12/31/2013 08/25/19 17 Pain in joint, shoulder region 12/16/2013 0 08/24/2016 Essential hypertension, benign 12/03/2013 0 11/19/2014 Overview: Home RX; Nortvasc, ACEi A/P: NTg gtt to keep MAPS 65-75. Wean off. Hydralazine prn. Start BB when off Epi. Pain in joint, lower leg 04/16/2013 017 Degenerative tear of medial meniscus 04/16/2013 11/13/2020 Anxiety 07/08/2011 11/13/2020 Overview: Home Rx; Prozac. A/p Restarted Prozac. Esophagitis, unspecified 04/23/2009 017 Acute gastritis without mention of hemorrhage 08/24/2016 Trochanteric bursitis 03/05/2009 11/12/2014 Nontoxic uninodular goiter 01/16/200902/24 Overview: 08/13/19 US thyroid right mid-pole thyroid solid nodule 9 x 7 x 4 mm stable since 2016 Last Assessment & Plan: Assessment: under surveillance Nonallopathic lesion of sacr al region, not elsewhere classified 01/02/2009 11/13/2020 Osteoarthrosis, unspecified whether generalized or localized, unspecified site 11/12/2008 11/13/2020 ABSCESS GROIN 07/23/2008 08/23/2016 Obesity, unspecified 07/15/2008 09/16/2020 Pain in joint, pelvic region and thigh 9 08/24/2016 INTRINSIC ASTHMA UNSPECIFIED 09/03/2007 Other seborrheic keratosis 08/07/200708/23 Calcaneal spur 11/13/2020 Generalized anxiety disorder Overview: Anxiety, Generalized Unspecified asthma(493.90) 09/02 Asthma 08/24/2016 documented as of this encounter (statuses as of 03/14/2022) [facility] History of Past illness Narrative* Problem Noted Date Resolved Date Primary osteoarthritis of left knee 12/08/2019 11/13/2020 Bruit of left carotid artery 12/05/2019 Last Assessment & Plan: Assessment: pending Carotid US Chronic left shoulder pain 10/04/201709/16 Heartburn 02/27/2017 11/13/2020 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 02/17/2017 12/05/2019 Overview: Added automatically from request for surgery [id number] Acute pain of left knee 12/26/2016 11/14/19 21 Chronic right shoulder pain 12/26/2016 04/0 12/2020 Gross hematuria 11/24/2016 11/13/2020 Malignant neoplasm of kidney excluding renal pel vis 10/21/2016 02/27/2017 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, without long-term current use of insulin 09/30/2016 09/30/2016 Neuropathy 09/30/2016 11/13/2020 Last Assessment & Plan: Assessment: stable on rx Asthma with COPD with exacerbation 08/24/2016 02/27/2017 Counseling and coordination of care 12/15/2014 08/24/2016 SUMMARY 11/21/2014 08/24/2016 Overview: Indication for hospital admission/procedure: Aortic aneurysm LVEF: 65% LVH RVF: Normal Important/Relevant PMH/PSH: BAV, Congenital anomaly of aorta, SIVAKUMAR, Asthma, HTN, HPL, DM, anxiety Preoperative Hospital Course Procedure/Surgeries: 11/17/2014 Mini-BAV repair, Ascending aortic replacement Airway Difficulty: No OR Course: Coagulopathy/bleeding requiring correction with 20u cryo, 8u FFP, 4u plts, 3uprbcs and 2 pump runs for repair of aortic cannulation site Pacing wires: out Postoperative Course/General Impression: S/p AVr/Asc aorta replacement. Plan to wean o2, pep, oob, increase diuresis, cont BB, pain and glucose control. Issues to communicate at signout: CT removed CPAP at night echo done CTA done PT rec acute rehab Needs much encouragement wires out 11/23 d/c to acute rehab today Discharge planning 11/21/2014 05/03/2016 Overview: Pt from [place], [place]. PT rec acute rehab; CM working on placement. Leaving for [facility] in-pt rehab today Hypertension 11/20/2014 02/27/2017 Overview: History: pre op on monopril, norv, Assessment: normotensive currently Plan: Cont BB , cont lasix Atelectasis 11/18/2014 11/19/2014 Overview: Bilateral on CXR. A/P: PEP, EZPAP OOBTC. Volume overload 11/18/2014 08/24/2016 Overview: History: post op Assessment: wt up 5 kg from pre op Plan: cont diuresis On mechanically assisted ventilation 11/17/2014 11/19/2014 Overview: Grade 1 airway. WTE when awake and stable. Extubated on DOS. CPAP at night PEP. Cardiac insufficiency following cardiac surgery 11/17/2014 11/20/2014 Overview: Low CI. CVP low. A/p Epi gtt off. Start BB. Pre-op testing 11/14/2014 08/23/2016 Overview: Images from the original note were not included. [facility] Surgeon: Modesto Cifuentes M.D. Informed Consent Completed: Yes STS Score: unsupported CAD: No Is intended procedure a CABG: No - is a beta hue ordered? No - reason: not indicated H & P completed: Yes 10/28/14 PA/LAT: Completed CT: Completed MRI: N/A LE US: N/A Cath: Yes - reviewed: Yes Echo:Completed EKG: Completed EF %: 65 PI's: N/A Carotid: N/A Mapping: N/A Dental: Completed PFT's: N/A No results for input(s): WBC, HB, HCT, PLT, INR, CREAT in the last 72 hours. UA: Normal HCG:N/A ABO/ABO Confirmed: Yes Blood ordered: No SA Swab: Yes - results: Negative Last Dose of Anticoagulation: OTC 11/12/14 Op Note: N/A Pacemaker Check: N/A Consults: none DM: Yes, A1c: 6.6% Cardiac Surgical prep: N/A SIGNATURE: JERSON Tian CHECKED BY: [email or web address] DATE of SERVICE: 11/14/2014 TIME of SERVICE: 10:59 AM discharge planning 11/10/2014 11/12/2014 Overview: 64yo male without any concerns presently Preop testing 11/10/2014 11/12/2014 Overview: Images from the original note were not included. [facility] PRE-[facility] CHECKLIST Surgeon: Modesto Cifuentes M.D. Informed Consent Completed: pending STS Score: unsupported CAD: Yes - CAD on Problem List: Yes Is intended procedure a CABG: No - is a beta hue ordered? No - reason: not indicated H & P completed: Yes PA/LAT: Completed CT: Completed MRI: N/A LE US: N/A Cath: Yes - reviewed: Yes Echo:Completed EKG: Completed EF %: 65 PI's: Completed Carotid: N/A Mapping: N/A Dental: Pending PFT's: Completed No results for input(s): WBC, HB, HCT, PLT, INR, CREAT in the last 72 hours. UA: Normal HCG:N/A ABO/ABO Confirmed: Yes Blood ordered: No SA Swab: Yes - results: Pending Last Dose of Anticoagulation: vit basa LD 11/03 Op Note: N/A Pacemaker Check: N/A Consults: none DM: No Cardiac Surgical prep: N/A SIGNATURE: Kate Smith RN CHECKED BY: DATE of SERVICE: 11/10/2014 TIME of SERVICE: 10:05 AM Right rotator cuff tear 12/31/2013 08/25/19 17 Pain in joint, shoulder region 12/16/2013 0 08/24/2016 Essential hypertension, benign 12/03/2013 0 11/19/2014 Overview: Home RX; Nortvasc, ACEi A/P: NTg gtt to keep MAPS 65-75. Wean off. Hydralazine prn. Start BB when off Epi. Pain in joint, lower leg 04/16/2013 017 Degenerative tear of medial meniscus 04/16/2013 11/13/2020 Anxiety 07/08/2011 11/13/2020 Overview: Home Rx; Prozac. A/p Restarted Prozac. Esophagitis, unspecified 04/23/2009 017 Acute gastritis without mention of hemorrhage 08/24/2016 Trochanteric bursitis 03/05/2009 11/12/2014 Nontoxic uninodular goiter 01/16/200902/24 Overview: 08/13/19 US thyroid right mid-pole thyroid solid nodule 9 x 7 x 4 mm stable since 2016 Last Assessment & Plan: Assessment: under surveillance Nonallopathic lesion of sacr al region, not elsewhere classified 01/02/2009 11/13/2020 Osteoarthrosis, unspecified whether generalized or localized, unspecified site 11/12/2008 11/13/2020 ABSCESS GROIN 07/23/2008 08/23/2016 Obesity, unspecified 07/15/2008 09/16/2020 Pain in joint, pelvic region and thigh 9 08/24/2016 INTRINSIC ASTHMA UNSPECIFIED 09/03/2007 Other seborrheic keratosis 08/07/200708/23 Calcaneal spur 11/13/2020 Generalized anxiety disorder Overview: Anxiety, Generalized Unspecified asthma(493.90) 09/02 Asthma 08/24/2016 documented as of this encounter (statuses as of 03/28/2022) [facility]2020 History of Past illness Narrative* Problem Noted Date Resolved Date Primary osteoarthritis of left knee 12/08/2019 11/13/2020 Bruit of left carotid artery 12/05/2019 Last Assessment & Plan: Assessment: pending Carotid US Chronic left shoulder pain 10/04/201709/16 Heartburn 02/27/2017 11/13/2020 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 02/17/2017 12/05/2019 Overview: Added automatically from request for surgery [id number] Acute pain of left knee 12/26/2016 11/14/19 Chronic right shoulder pain 12/26/2016 04/0 12/2020 Gross hematuria 11/24/2016 11/13/2020 Malignant neoplasm of kidney excluding renal pel vis 10/21/2016 02/27/2017 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, without long-term current use of insulin 09/30/2016 09/30/2016 Neuropathy 09/30/2016 11/13/2020 Last Assessment & Plan: Assessment: stable on rx Asthma with COPD with exacerbation 08/24/2016 02/27/2017 Counseling and coordination of care 12/15/2014 08/24/2016 SUMMARY 11/21/2014 08/24/2016 Overview: Indication for hospital admission/procedure: Aortic aneurysm LVEF: 65% LVH RVF: Normal Important/Relevant PMH/PSH: BAV, Congenital anomaly of aorta, SIVAKUMAR, Asthma, HTN, HPL, DM, anxiety Preoperative Hospital Course Procedure/Surgeries: 11/17/2014 Mini-BAV repair, Ascending aortic replacement Airway Difficulty: No OR Course: Coagulopathy/bleeding requiring correction with 20u cryo, 8u FFP, 4u plts, 3uprbcs and 2 pump runs for repair of aortic cannulation site Pacing wires: out Postoperative Course/General Impression: S/p AVr/Asc aorta replacement. Plan to wean o2, pep, oob, increase diuresis, cont BB, pain and glucose control. Issues to communicate at signout: CT removed CPAP at night echo done CTA done PT rec acute rehab Needs much encouragement wires out 11/23 d/c to acute rehab today Discharge planning 11/21/2014 05/03/2016 Overview: Pt from [place], [place]. PT rec acute rehab; CM working on placement. Leaving for [facility] in-pt rehab today Hypertension 11/20/2014 02/27/2017 Overview: History: pre op on monopril, norv, Assessment: normotensive currently Plan: Cont BB , cont lasix Atelectasis 11/18/2014 11/19/2014 Overview: Bilateral on CXR. A/P: PEP, EZPAP OOBTC. Volume overload 11/18/2014 08/24/2016 Overview: History: post op Assessment: wt up 5 kg from pre op Plan: cont diuresis On mechanically assisted ventilation 11/17/2014 11/19/2014 Overview: Grade 1 airway. WTE when awake and stable. Extubated on DOS. CPAP at night PEP. Cardiac insufficiency following cardiac surgery 11/17/2014 11/20/2014 Overview: Low CI. CVP low. A/p Epi gtt off. Start BB. Pre-op testing 11/14/2014 08/23/2016 Overview: Images from the original note were not included. [facility] Surgeon: Modesto Cifuentes M.D. Informed Consent Completed: Yes STS Score: unsupported CAD: No Is intended procedure a CABG: No - is a beta hue ordered? No - reason: not indicated H & P completed: Yes 10/28/14 PA/LAT: Completed CT: Completed MRI: N/A LE US: N/A Cath: Yes - reviewed: Yes Echo:Completed EKG: Completed EF %: 65 PI's: N/A Carotid: N/A Mapping: N/A Dental: Completed PFT's: N/A No results for input(s): WBC, HB, HCT, PLT, INR, CREAT in the last 72 hours. UA: Normal HCG:N/A ABO/ABO Confirmed: Yes Blood ordered: No SA Swab: Yes - results: Negative Last Dose of Anticoagulation: OTC 11/12/14 Op Note: N/A Pacemaker Check: N/A Consults: none DM: Yes, A1c: 6.6% Cardiac Surgical prep: N/A SIGNATURE: JERSON Tian CHECKED BY: [email or web address] DATE of SERVICE: 11/14/2014 TIME of SERVICE: 10:59 AM discharge planning 11/10/2014 11/12/2014 Overview: 64yo male without any concerns presently Preop testing 11/10/2014 11/12/2014 Overview: Images from the original note were not included. [facility] Surgeon: Modesto Cifuentes M.D. Informed Consent Completed: pending STS Score: unsupported CAD: Yes - CAD on Problem List: Yes Is intended procedure a CABG: No - is a beta hue ordered? No - reason: not indicated H & P completed: Yes PA/LAT: Completed CT: Completed MRI: N/A LE US: N/A Cath: Yes - reviewed: Yes Echo:Completed EKG: Completed EF %: 65 PI's: Completed Carotid: N/A Mapping: N/A Dental: Pending PFT's: Completed No results for input(s): WBC, HB, HCT, PLT, INR, CREAT in the last 72 hours. UA: Normal HCG:N/A ABO/ABO Confirmed: Yes Blood ordered: No SA Swab: Yes - results: Pending Last Dose of Anticoagulation: vit basa LD 11/03 Op Note: N/A Pacemaker Check: N/A Consults: none DM: No Cardiac Surgical prep: N/A SIGNATURE: Kate Smith RN CHECKED BY: DATE of SERVICE: 11/10/2014 TIME of SERVICE: 10:05 AM Right rotator cuff tear 12/31/2013 08/25/19 17 Pain in joint, shoulder region 12/16/2013 0 08/24/2016 Essential hypertension, benign 12/03/2013 0 11/19/2014 Overview: Home RX; Nortvasc, ACEi A/P: NTg gtt to keep MAPS 65-75. Wean off. Hydralazine prn. Start BB when off Epi. Pain in joint, lower leg 04/16/2013 017 Degenerative tear of medial meniscus 04/16/2013 11/13/2020 Anxiety 07/08/2011 11/13/2020 Overview: Home Rx; Prozac. A/p Restarted Prozac. Esophagitis, unspecified 04/23/2009 017 Acute gastritis without mention of hemorrhage 08/24/2016 Trochanteric bursitis 03/05/2009 11/12/2014 Nontoxic uninodular goiter 01/16/200902/24 Overview: 08/13/19 thyroid right mid-pole thyroid solid nodule 9 x 7 x 4 mm stable since 2016 Last Assessment & Plan: Assessment: under surveillance Nonallopathic lesion of sacr al region, not elsewhere classified 01/02/2009 11/13/2020 Osteoarthrosis, unspecified whether generalized or localized, unspecified site 11/12/2008 11/13/2020 ABSCESS GROIN 07/23/2008 08/23/2016 Obesity, unspecified 07/15/2008 09/16/2020 Pain in joint, pelvic region and thigh 9 08/24/2016 INTRINSIC ASTHMA UNSPECIFIED 09/03/2007 Other seborrheic keratosis 08/07/200708/23 Calcaneal spur 11/13/2020 Generalized anxiety disorder Overview: Anxiety, Generalized Unspecified asthma(493.90) 09/02 Asthma 08/24/2016 documented as of this encounter (statuses as of 03/29/2022) [facility] History of Past illness Narrative* Problem Noted Date Resolved Date Primary osteoarthritis of left knee 12/08/2019 11/13/2020 Bruit of left carotid artery 12/05/2019 Last Assessment & Plan: Assessment: pending Carotid US Chronic left shoulder pain 10/04/201709/16 Heartburn 02/27/2017 11/13/2020 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 02/17/2017 12/05/2019 Overview: Added automatically from request for surgery [id number] Acute pain of left knee 12/26/2016 11/14/19 Chronic right shoulder pain 12/26/2016 04/0 12/2020 Gross hematuria 11/24/2016 11/13/2020 Malignant neoplasm of kidney excluding renal pel vis 10/21/2016 02/27/2017 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, without long-term current use of insulin 09/30/2016 09/30/2016 Neuropathy 09/30/2016 11/13/2020 Last Assessment & Plan: Assessment: stable on rx Asthma with COPD with exacerbation 08/24/2016 02/27/2017 Counseling and coordination of care 12/15/2014 08/24/2016 SUMMARY 11/21/2014 08/24/2016 Overview: Indication for hospital admission/procedure: Aortic aneurysm LVEF: 65% LVH RVF: Normal Important/Relevant PMH/PSH: BAV, Congenital anomaly of aorta, SIVAKUMAR, Asthma, HTN, HPL, DM, anxiety Preoperative Hospital Course Procedure/Surgeries: 11/17/2014 Mini-BAV repair, Ascending aortic replacement Airway Difficulty: No OR Course: Coagulopathy/bleeding requiring correction with 20u cryo, 8u FFP, 4u plts, 3uprbcs and 2 pump runs for repair of aortic cannulation site Pacing wires: out Postoperative Course/General Impression: S/p AVr/Asc aorta replacement. Plan to wean o2, pep, oob, increase diuresis, cont BB, pain and glucose control. Issues to communicate at signout: CT removed CPAP at night echo done CTA done PT rec acute rehab Needs much encouragement wires out 11/23 d/c to acute rehab today Discharge planning 11/21/2014 05/03/2016 Overview: Pt from [place], [place]. PT rec acute rehab; CM working on placement. Leaving for [facility] in-pt rehab today Hypertension 11/20/2014 02/27/2017 Overview: History: pre op on monopril, norv, Assessment: normotensive currently Plan: Cont BB , cont lasix Atelectasis 11/18/2014 11/19/2014 Overview: Bilateral on CXR. A/P: PEP, EZPAP OOBTC. Volume overload 11/18/2014 08/24/2016 Overview: History: post op Assessment: wt up 5 kg from pre op Plan: cont diuresis On mechanically assisted ventilation 11/17/2014 11/19/2014 Overview: Grade 1 airway. WTE when awake and stable. Extubated on DOS. CPAP at night PEP. Cardiac insufficiency following cardiac surgery 11/17/2014 11/20/2014 Overview: Low CI. CVP low. A/p Epi gtt off. Start BB. Pre-op testing 11/14/2014 08/23/2016 Overview: Images from the original note were not included. [facility] Surgeon: Modesto Cifuentes M.D. Informed Consent Completed: Yes STS Score: unsupported CAD: No Is intended procedure a CABG: No - is a beta hue ordered? No - reason: not indicated H & P completed: Yes 10/28/14 PA/LAT: Completed CT: Completed MRI: N/A LE US: N/A Cath: Yes - reviewed: Yes Echo:Completed EKG: Completed EF %: 65 PI's: N/A Carotid: N/A Mapping: N/A Dental: Completed PFT's: N/A No results for input(s): WBC, HB, HCT, PLT, INR, CREAT in the last 72 hours. UA: Normal HCG:N/A ABO/ABO Confirmed: Yes Blood ordered: No SA Swab: Yes - results: Negative Last Dose of Anticoagulation: OTC 11/12/14 Op Note: N/A Pacemaker Check: N/A Consults: none DM: Yes, A1c: 6.6% Cardiac Surgical prep: N/A SIGNATURE: JERSON Tian CHECKED BY: [email or web address] DATE of SERVICE: 11/14/2014 TIME of SERVICE: 10:59 AM discharge planning 11/10/2014 11/12/2014 Overview: 64yo male without any concerns presently Preop testing 11/10/2014 11/12/2014 Overview: Images from the original note were not included. [facility] Surgeon: Modesto Cifuentes M.D. Informed Consent Completed: pending STS Score: unsupported CAD: Yes - CAD on Problem List: Yes Is intended procedure a CABG: No - is a beta hue ordered? No - reason: not indicated H & P completed: Yes PA/LAT: Completed CT: Completed MRI: N/A LE US: N/A Cath: Yes - reviewed: Yes Echo:Completed EKG: Completed EF %: 65 PI's: Completed Carotid: N/A Mapping: N/A Dental: Pending PFT's: Completed No results for input(s): WBC, HB, HCT, PLT, INR, CREAT in the last 72 hours. UA: Normal HCG:N/A ABO/ABO Confirmed: Yes Blood ordered: No SA Swab: Yes - results: Pending Last Dose of Anticoagulation: vit basa LD 11/03 Op Note: N/A Pacemaker Check: N/A Consults: none DM: No Cardiac Surgical prep: N/A SIGNATURE: Kate Smith RN CHECKED BY: DATE of SERVICE: 11/10/2014 TIME of SERVICE: 10:05 AM Right rotator cuff tear 12/31/2013 08/25/19 17 Pain in joint, shoulder region 12/16/2013 0 08/24/2016 Essential hypertension, benign 12/03/2013 0 11/19/2014 Overview: Home RX; Nortvasc, ACEi A/P: NTg gtt to keep MAPS 65-75. Wean off. Hydralazine prn. Start BB when off Epi. Pain in joint, lower leg 04/16/2013 017 Degenerative tear of medial meniscus 04/16/2013 11/13/2020 Anxiety 07/08/2011 11/13/2020 Overview: Home Rx; Prozac. A/p Restarted Prozac. Esophagitis, unspecified 04/23/2009 017 Acute gastritis without mention of hemorrhage 08/24/2016 Trochanteric bursitis 03/05/2009 11/12/2014 Nontoxic uninodular goiter 01/16/200902/24 Overview: 08/13/19 thyroid right mid-pole thyroid solid nodule 9 x 7 x 4 mm stable since 2016 Last Assessment & Plan: Assessment: under surveillance Nonallopathic lesion of sacr al region, not elsewhere classified 01/02/2009 11/13/2020 Osteoarthrosis, unspecified whether generalized or localized, unspecified site 11/12/2008 11/13/2020 ABSCESS GROIN 07/23/2008 08/23/2016 Obesity, unspecified 07/15/2008 09/16/2020 Pain in joint, pelvic region and thigh 9 08/24/2016 INTRINSIC ASTHMA UNSPECIFIED 09/03/2007 Other seborrheic keratosis 08/07/200708/23 Calcaneal spur 11/13/2020 Generalized anxiety disorder Overview: Anxiety, Generalized Unspecified asthma(493.90) 09/02 Asthma 08/24/2016 documented as of this encounter (statuses as of 03/29/2022) [facility] History of Past illness Narrative* Problem Noted Date Resolved Date Primary osteoarthritis of left knee 12/08/2019 11/13/2020 Bruit of left carotid artery 12/05/2019 Last Assessment & Plan: Assessment: pending Carotid US Chronic left shoulder pain 10/04/201709/16 Heartburn 02/27/2017 11/13/2020 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 02/17/2017 12/05/2019 Overview: Added automatically from request for surgery [id number] Acute pain of left knee 12/26/2016 11/14/19 Chronic right shoulder pain 12/26/2016 04/0 12/2020 Gross hematuria 11/24/2016 11/13/2020 Malignant neoplasm of kidney excluding renal pel vis 10/21/2016 02/27/2017 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, without long-term current use of insulin 09/30/2016 09/30/2016 Neuropathy 09/30/2016 11/13/2020 Last Assessment & Plan: Assessment: stable on rx Asthma with COPD with exacerbation 08/24/2016 02/27/2017 Counseling and coordination of care 12/15/2014 08/24/2016 SUMMARY 11/21/2014 08/24/2016 Overview: Indication for hospital admission/procedure: Aortic aneurysm LVEF: 65% LVH RVF: Normal Important/Relevant PMH/PSH: BAV, Congenital anomaly of aorta, SIVAKUMAR, Asthma, HTN, HPL, DM, anxiety Preoperative Hospital Course Procedure/Surgeries: 11/17/2014 Mini-BAV repair, Ascending aortic replacement Airway Difficulty: No OR Course: Coagulopathy/bleeding requiring correction with 20u cryo, 8u FFP, 4u plts, 3uprbcs and 2 pump runs for repair of aortic cannulation site Pacing wires: out Postoperative Course/General Impression: S/p AVr/Asc aorta replacement. Plan to wean o2, pep, oob, increase diuresis, cont BB, pain and glucose control. Issues to communicate at signout: CT removed CPAP at night echo done CTA done PT rec acute rehab Needs much encouragement wires out 11/23 d/c to acute rehab today Discharge planning 11/21/2014 05/03/2016 Overview: Pt from [place], [place]. PT rec acute rehab; CM working on placement. Leaving for [facility] in-pt rehab today Hypertension 11/20/2014 02/27/2017 Overview: History: pre op on monopril, norv, Assessment: normotensive currently Plan: Cont BB , cont lasix Atelectasis 11/18/2014 11/19/2014 Overview: Bilateral on CXR. A/P: PEP, EZPAP OOBTC. Volume overload 11/18/2014 08/24/2016 Overview: History: post op Assessment: wt up 5 kg from pre op Plan: cont diuresis On mechanically assisted ventilation 11/17/2014 11/19/2014 Overview: Grade 1 airway. WTE when awake and stable. Extubated on DOS. CPAP at night PEP. Cardiac insufficiency following cardiac surgery 11/17/2014 11/20/2014 Overview: Low CI. CVP low. A/p Epi gtt off. Start BB. Pre-op testing 11/14/2014 08/23/2016 Overview: Images from the original note were not included. [facility] Surgeon: Modesto Cifuentes M.D. Informed Consent Completed: Yes STS Score: unsupported CAD: No Is intended procedure a CABG: No - is a beta hue ordered? No - reason: not indicated H & P completed: Yes 10/28/14 PA/LAT: Completed CT: Completed MRI: N/A LE US: N/A Cath: Yes - reviewed: Yes Echo:Completed EKG: Completed EF %: 65 PI's: N/A Carotid: N/A Mapping: N/A Dental: Completed PFT's: N/A No results for input(s): WBC, HB, HCT, PLT, INR, CREAT in the last 72 hours. UA: Normal HCG:N/A ABO/ABO Confirmed: Yes Blood ordered: No SA Swab: Yes - results: Negative Last Dose of Anticoagulation: OTC 11/12/14 Op Note: N/A Pacemaker Check: N/A Consults: none DM: Yes, A1c: 6.6% Cardiac Surgical prep: N/A SIGNATURE: JERSON Tian CHECKED BY: [email or web address] DATE of SERVICE: 11/14/2014 TIME of SERVICE: 10:59 AM discharge planning 11/10/2014 11/12/2014 Overview: 64yo male without any concerns presently Preop testing 11/10/2014 11/12/2014 Overview: Images from the original note were not included. [facility] Surgeon: Modesto Cifuentes M.D. Informed Consent Completed: pending STS Score: unsupported CAD: Yes - CAD on Problem List: Yes Is intended procedure a CABG: No - is a beta hue ordered? No - reason: not indicated H & P completed: Yes PA/LAT: Completed CT: Completed MRI: N/A LE US: N/A Cath: Yes - reviewed: Yes Echo:Completed EKG: Completed EF %: 65 PI's: Completed Carotid: N/A Mapping: N/A Dental: Pending PFT's: Completed No results for input(s): WBC, HB, HCT, PLT, INR, CREAT in the last 72 hours. UA: Normal HCG:N/A ABO/ABO Confirmed: Yes Blood ordered: No SA Swab: Yes - results: Pending Last Dose of Anticoagulation: vit basa LD 11/03 Op Note: N/A Pacemaker Check: N/A Consults: none DM: No Cardiac Surgical prep: N/A SIGNATURE: Kate Smith RN CHECKED BY: DATE of SERVICE: 11/10/2014 TIME of SERVICE: 10:05 AM Right rotator cuff tear 12/31/2013 08/25/19 17 Pain in joint, shoulder region 12/16/2013 0 08/24/2016 Essential hypertension, benign 12/03/2013 0 11/19/2014 Overview: Home RX; Nortvasc, ACEi A/P: NTg gtt to keep MAPS 65-75. Wean off. Hydralazine prn. Start BB when off Epi. Pain in joint, lower leg 04/16/2013 017 Degenerative tear of medial meniscus 04/16/2013 11/13/2020 Anxiety 07/08/2011 11/13/2020 Overview: Home Rx; Prozac. A/p Restarted Prozac. Esophagitis, unspecified 04/23/2009 017 Acute gastritis without mention of hemorrhage 08/24/2016 Trochanteric bursitis 03/05/2009 11/12/2014 Nontoxic uninodular goiter 01/16/200902/24 Overview: 08/13/19 US thyroid right mid-pole thyroid solid nodule 9 x 7 x 4 mm stable since 2016 Last Assessment & Plan: Assessment: under surveillance Nonallopathic lesion of sacr al region, not elsewhere classified 01/02/2009 11/13/2020 Osteoarthrosis, unspecified whether generalized or localized, unspecified site 11/12/2008 11/13/2020 ABSCESS GROIN 07/23/2008 08/23/2016 Obesity, unspecified 07/15/2008 09/16/2020 Pain in joint, pelvic region and thigh 9 08/24/2016 INTRINSIC ASTHMA UNSPECIFIED 09/03/2007 Other seborrheic keratosis 08/07/200708/23 Calcaneal spur 11/13/2020 Generalized anxiety disorder Overview: Anxiety, Generalized Unspecified asthma(493.90) 09/02 Asthma 08/24/2016 documented as of this encounter (statuses as of 04/05/2022) [facility] History of Past illness Narrative* Problem Noted Date Resolved Date Primary osteoarthritis of left knee 12/08/2019 11/13/2020 Bruit of left carotid artery 12/05/2019 Last Assessment & Plan: Assessment: pending Carotid US Chronic left shoulder pain 10/04/201709/16 Heartburn 02/27/2017 11/13/2020 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 02/17/2017 12/05/2019 Overview: Added automatically from request for surgery [id number] Acute pain of left knee 12/26/2016 11/14/19 Chronic right shoulder pain 12/26/2016 04/0 12/2020 Gross hematuria 11/24/2016 11/13/2020 Malignant neoplasm of kidney excluding renal pel vis 10/21/2016 02/27/2017 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, without long-term current use of insulin 09/30/2016 09/30/2016 Neuropathy 09/30/2016 11/13/2020 Last Assessment & Plan: Assessment: stable on rx Asthma with COPD with exacerbation 08/24/2016 02/27/2017 Counseling and coordination of care 12/15/2014 08/24/2016 SUMMARY 11/21/2014 08/24/2016 Overview: Indication for hospital admission/procedure: Aortic aneurysm LVEF: 65% LVH RVF: Normal Important/Relevant PMH/PSH: BAV, Congenital anomaly of aorta, SIVAKUMAR, Asthma, HTN, HPL, DM, anxiety Preoperative Hospital Course Procedure/Surgeries: 11/17/2014 Mini-BAV repair, Ascending aortic replacement Airway Difficulty: No OR Course: Coagulopathy/bleeding requiring correction with 20u cryo, 8u FFP, 4u plts, 3uprbcs and 2 pump runs for repair of aortic cannulation site Pacing wires: out Postoperative Course/General Impression: S/p AVr/Asc aorta replacement. Plan to wean o2, pep, oob, increase diuresis, cont BB, pain and glucose control. Issues to communicate at signout: CT removed CPAP at night echo done CTA done PT rec acute rehab Needs much encouragement wires out 11/23 d/c to acute rehab today Discharge planning 11/21/2014 05/03/2016 Overview: Pt from [place], [place]. PT rec acute rehab; CM working on placement. Leaving for [facility] in-[facility] rehab today Hypertension 11/20/2014 02/27/2017 Overview: History: pre op on monopril, norv, Assessment: normotensive currently Plan: Cont BB , cont lasix Atelectasis 11/18/2014 11/19/2014 Overview: Bilateral on CXR. A/P: PEP, EZPAP OOBTC. Volume overload 11/18/2014 08/24/2016 Overview: History: post op Assessment: wt up 5 kg from pre op Plan: cont diuresis On mechanically assisted ventilation 11/17/2014 11/19/2014 Overview: Grade 1 airway. WTE when awake and stable. Extubated on DOS. CPAP at night PEP. Cardiac insufficiency following cardiac surgery 11/17/2014 11/20/2014 Overview: Low CI. CVP low. A/p Epi gtt off. Start BB. Pre-op testing 11/14/2014 08/23/2016 Overview: Images from the original note were not included. [facility] Surgeon: Modesto Cifuentes M.D. Informed Consent Completed: Yes STS Score: unsupported CAD: No Is intended procedure a CABG: No - is a beta hue ordered? No - reason: not indicated H & P completed: Yes 10/28/14 PA/LAT: Completed CT: Completed MRI: N/A LE US: N/A Cath: Yes - reviewed: Yes Echo:Completed EKG: Completed EF %: 65 PI's: N/A Carotid: N/A Mapping: N/A Dental: Completed PFT's: N/A No results for input(s): WBC, HB, HCT, PLT, INR, CREAT in the last 72 hours. UA: Normal HCG:N/A ABO/ABO Confirmed: Yes Blood ordered: No SA Swab: Yes - results: Negative Last Dose of Anticoagulation: OTC 11/12/14 Op Note: N/A Pacemaker Check: N/A Consults: none DM: Yes, A1c: 6.6% Cardiac Surgical prep: N/A SIGNATURE: JERSON Tian CHECKED BY: [email or web address] DATE of SERVICE: 11/14/2014 TIME of SERVICE: 10:59 AM discharge planning 11/10/2014 11/12/2014 Overview: 64yo male without any concerns presently Preop testing 11/10/2014 11/12/2014 Overview: Images from the original note were not included. [facility] Surgeon: Modesto Cifuentes M.D. Informed Consent Completed: pending STS Score: unsupported CAD: Yes - CAD on Problem List: Yes Is intended procedure a CABG: No - is a beta hue ordered? No - reason: not indicated H & P completed: Yes PA/LAT: Completed CT: Completed MRI: N/A LE US: N/A Cath: Yes - reviewed: Yes Echo:Completed EKG: Completed EF %: 65 PI's: Completed Carotid: N/A Mapping: N/A Dental: Pending PFT's: Completed No results for input(s): WBC, HB, HCT, PLT, INR, CREAT in the last 72 hours. UA: Normal HCG:N/A ABO/ABO Confirmed: Yes Blood ordered: No SA Swab: Yes - results: Pending Last Dose of Anticoagulation: vit basa LD 11/03 Op Note: N/A Pacemaker Check: N/A Consults: none DM: No Cardiac Surgical prep: N/A SIGNATURE: Kate Smith RN CHECKED BY: DATE of SERVICE: 11/10/2014 TIME of SERVICE: 10:05 AM Right rotator cuff tear 12/31/2013 08/25/19 17 Pain in joint, shoulder region 12/16/2013 0 08/24/2016 Essential hypertension, benign 12/03/2013 0 11/19/2014 Overview: Home RX; Nortvasc, ACEi A/P: NTg gtt to keep MAPS 65-75. Wean off. Hydralazine prn. Start BB when off Epi. Pain in joint, lower leg 04/16/2013 017 Degenerative tear of medial meniscus 04/16/2013 11/13/2020 Anxiety 07/08/2011 11/13/2020 Overview: Home Rx; Prozac. A/p Restarted Prozac. Esophagitis, unspecified 04/23/2009 017 Acute gastritis without mention of hemorrhage 08/24/2016 Trochanteric bursitis 03/05/2009 11/12/2014 Nontoxic uninodular goiter 01/16/200902/24 Overview: 08/13/19 US thyroid right mid-pole thyroid solid nodule 9 x 7 x 4 mm stable since 2016 Last Assessment & Plan: Assessment: under surveillance Nonallopathic lesion of sacr al region, not elsewhere classified 01/02/2009 11/13/2020 Osteoarthrosis, unspecified whether generalized or localized, unspecified site 11/12/2008 11/13/2020 ABSCESS GROIN 07/23/2008 08/23/2016 Obesity, unspecified 07/15/2008 09/16/2020 Pain in joint, pelvic region and thigh 9 08/24/2016 INTRINSIC ASTHMA UNSPECIFIED 09/03/2007 Other seborrheic keratosis 08/07/200708/23 Calcaneal spur 11/13/2020 Generalized anxiety disorder Overview: Anxiety, Generalized Unspecified asthma(493.90) 09/02 Asthma 08/24/2016 documented as of this encounter (statuses as of 04/07/2022) [facility]06-[facility]2020 History of Past illness Narrative* Problem Noted Date Resolved Date Primary osteoarthritis of left knee 12/08/2019 11/13/2020 Bruit of left carotid artery 12/05/2019 Last Assessment & Plan: Assessment: pending Carotid US Chronic left shoulder pain 10/04/201709/16 Heartburn 02/27/2017 11/13/2020 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 02/17/2017 12/05/2019 Overview: Added automatically from request for surgery [id number] Acute pain of left knee 12/26/2016 11/14/19 Chronic right shoulder pain 12/26/2016 04/0 12/2020 Gross hematuria 11/24/2016 11/13/2020 Malignant neoplasm of kidney excluding renal pel vis 10/21/2016 02/27/2017 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, without long-term current use of insulin 09/30/2016 09/30/2016 Neuropathy 09/30/2016 11/13/2020 Last Assessment & Plan: Assessment: stable on rx Asthma with COPD with exacerbation 08/24/2016 02/27/2017 Counseling and coordination of care 12/15/2014 08/24/2016 SUMMARY 11/21/2014 08/24/2016 Overview: Indication for hospital admission/procedure: Aortic aneurysm LVEF: 65% LVH RVF: Normal Important/Relevant PMH/PSH: BAV, Congenital anomaly of aorta, SIVAKUMAR, Asthma, HTN, HPL, DM, anxiety Preoperative Hospital Course Procedure/Surgeries: 11/17/2014 Mini-BAV repair, Ascending aortic replacement Airway Difficulty: No OR Course: Coagulopathy/bleeding requiring correction with 20u cryo, 8u FFP, 4u plts, 3uprbcs and 2 pump runs for repair of aortic cannulation site Pacing wires: out Postoperative Course/General Impression: S/p AVr/Asc aorta replacement. Plan to wean o2, pep, oob, increase diuresis, cont BB, pain and glucose control. Issues to communicate at signout: CT removed CPAP at night echo done CTA done PT rec acute rehab Needs much encouragement wires out 11/23 d/c to acute rehab today Discharge planning 11/21/2014 05/03/2016 Overview: Pt from [place], [place]. PT rec acute rehab; CM working on placement. Leaving for [facility] in-[facility] rehab today Hypertension 11/20/2014 02/27/2017 Overview: History: pre op on monopril, norv, Assessment: normotensive currently Plan: Cont BB , cont lasix Atelectasis 11/18/2014 11/19/2014 Overview: Bilateral on CXR. A/P: PEP, EZPAP OOBTC. Volume overload 11/18/2014 08/24/2016 Overview: History: post op Assessment: wt up 5 kg from pre op Plan: cont diuresis On mechanically assisted ventilation 11/17/2014 11/19/2014 Overview: Grade 1 airway. WTE when awake and stable. Extubated on DOS. CPAP at night PEP. Cardiac insufficiency following cardiac surgery 11/17/2014 11/20/2014 Overview: Low CI. CVP low. A/p Epi gtt off. Start BB. Pre-op testing 11/14/2014 08/23/2016 Overview: Images from the original note were not included. [facility] Surgeon: Modesto Cifuentes M.D. Informed Consent Completed: Yes STS Score: unsupported CAD: No Is intended procedure a CABG: No - is a beta hue ordered? No - reason: not indicated H & P completed: Yes 10/28/14 PA/LAT: Completed CT: Completed MRI: N/A LE US: N/A Cath: Yes - reviewed: Yes Echo:Completed EKG: Completed EF %: 65 PI's: N/A Carotid: N/A Mapping: N/A Dental: Completed PFT's: N/A No results for input(s): WBC, HB, HCT, PLT, INR, CREAT in the last 72 hours. UA: Normal HCG:N/A ABO/ABO Confirmed: Yes Blood ordered: No SA Swab: Yes - results: Negative Last Dose of Anticoagulation: OTC 11/12/14 Op Note: N/A Pacemaker Check: N/A Consults: none DM: Yes, A1c: 6.6% Cardiac Surgical prep: N/A SIGNATURE: JERSON Tian CHECKED BY: [email or web address] DATE of SERVICE: 11/14/2014 TIME of SERVICE: 10:59 AM discharge planning 11/10/2014 11/12/2014 Overview: 64yo male without any concerns presently Preop testing 11/10/2014 11/12/2014 Overview: Images from the original note were not included. [facility] Surgeon: Modesto Cifuentes M.D. Informed Consent Completed: pending STS Score: unsupported CAD: Yes - CAD on Problem List: Yes Is intended procedure a CABG: No - is a beta hue ordered? No - reason: not indicated H & P completed: Yes PA/LAT: Completed CT: Completed MRI: N/A LE US: N/A Cath: Yes - reviewed: Yes Echo:Completed EKG: Completed EF %: 65 PI's: Completed Carotid: N/A Mapping: N/A Dental: Pending PFT's: Completed No results for input(s): WBC, HB, HCT, PLT, INR, CREAT in the last 72 hours. UA: Normal HCG:N/A ABO/ABO Confirmed: Yes Blood ordered: No SA Swab: Yes - results: Pending Last Dose of Anticoagulation: vit basa LD 11/03 Op Note: N/A Pacemaker Check: N/A Consults: none DM: No Cardiac Surgical prep: N/A SIGNATURE: Kate Smith RN CHECKED BY: DATE of SERVICE: 11/10/2014 TIME of SERVICE: 10:05 AM Right rotator cuff tear 12/31/2013 08/25/19 17 Pain in joint, shoulder region 12/16/2013 0 08/24/2016 Essential hypertension, benign 12/03/2013 0 11/19/2014 Overview: Home RX; Nortvasc, ACEi A/P: NTg gtt to keep MAPS 65-75. Wean off. Hydralazine prn. Start BB when off Epi. Pain in joint, lower leg 04/16/2013 017 Degenerative tear of medial meniscus 04/16/2013 11/13/2020 Anxiety 07/08/2011 11/13/2020 Overview: Home Rx; Prozac. A/p Restarted Prozac. Esophagitis, unspecified 04/23/2009 017 Acute gastritis without mention of hemorrhage 08/24/2016 Trochanteric bursitis 03/05/2009 11/12/2014 Nontoxic uninodular goiter 01/16/200902/24 Overview: 08/13/19 US thyroid right mid-pole thyroid solid nodule 9 x 7 x 4 mm stable since 2016 Last Assessment & Plan: Assessment: under surveillance Nonallopathic lesion of sacr al region, not elsewhere classified 01/02/2009 11/13/2020 Osteoarthrosis, unspecified whether generalized or localized, unspecified site 11/12/2008 11/13/2020 ABSCESS GROIN 07/23/2008 08/23/2016 Obesity, unspecified 07/15/2008 09/16/2020 Pain in joint, pelvic region and thigh 9 08/24/2016 INTRINSIC ASTHMA UNSPECIFIED 09/03/2007 Other seborrheic keratosis 08/07/200708/23 Calcaneal spur 11/13/2020 Generalized anxiety disorder Overview: Anxiety, Generalized Unspecified asthma(493.90) 09/02 Asthma 08/24/2016 documented as of this encounter (statuses as of 04/12/2022) [facility] History of Past illness Narrative* Problem Noted Date Resolved Date Primary osteoarthritis of left knee 12/08/2019 11/13/2020 Bruit of left carotid artery 12/05/2019 Last Assessment & Plan: Assessment: pending Carotid US Chronic left shoulder pain 10/04/201709/16 Heartburn 02/27/2017 11/13/2020 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 02/17/2017 12/05/2019 Overview: Added automatically from request for surgery [id number] Acute pain of left knee 12/26/2016 11/14/19 21 Chronic right shoulder pain 12/26/2016 04/0 12/2020 Gross hematuria 11/24/2016 11/13/2020 Malignant neoplasm of kidney excluding renal pel vis 10/21/2016 02/27/2017 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, without long-term current use of insulin 09/30/2016 09/30/2016 Neuropathy 09/30/2016 11/13/2020 Last Assessment & Plan: Assessment: stable on rx Asthma with COPD with exacerbation 08/24/2016 02/27/2017 Counseling and coordination of care 12/15/2014 08/24/2016 SUMMARY 11/21/2014 08/24/2016 Overview: Indication for hospital admission/procedure: Aortic aneurysm LVEF: 65% LVH RVF: Normal Important/Relevant PMH/PSH: BAV, Congenital anomaly of aorta, SIVAKUMAR, Asthma, HTN, HPL, DM, anxiety Preoperative Hospital Course Procedure/Surgeries: 11/17/2014 Mini-BAV repair, Ascending aortic replacement Airway Difficulty: No OR Course: Coagulopathy/bleeding requiring correction with 20u cryo, 8u FFP, 4u plts, 3uprbcs and 2 pump runs for repair of aortic cannulation site Pacing wires: out Postoperative Course/General Impression: S/p AVr/Asc aorta replacement. Plan to wean o2, pep, oob, increase diuresis, cont BB, pain and glucose control. Issues to communicate at signout: CT removed CPAP at night echo done CTA done PT rec acute rehab Needs much encouragement wires out 11/23 d/c to acute rehab today Discharge planning 11/21/2014 05/03/2016 Overview: Pt from [place], [place]. PT rec acute rehab; CM working on placement. Leaving for [facility] in-pt rehab today Hypertension 11/20/2014 02/27/2017 Overview: History: pre op on monopril, norv, Assessment: normotensive currently Plan: Cont BB , cont lasix Atelectasis 11/18/2014 11/19/2014 Overview: Bilateral on CXR. A/P: PEP, EZPAP OOBTC. Volume overload 11/18/2014 08/24/2016 Overview: History: post op Assessment: wt up 5 kg from pre op Plan: cont diuresis On mechanically assisted ventilation 11/17/2014 11/19/2014 Overview: Grade 1 airway. WTE when awake and stable. Extubated on DOS. CPAP at night PEP. Cardiac insufficiency following cardiac surgery 11/17/2014 11/20/2014 Overview: Low CI. CVP low. A/p Epi gtt off. Start BB. Pre-op testing 11/14/2014 08/23/2016 Overview: Images from the original note were not included. [facility] PRE-[facility] Surgeon: Modesto Cifuentes M.D. Informed Consent Completed: Yes STS Score: unsupported CAD: No Is intended procedure a CABG: No - is a beta hue ordered? No - reason: not indicated H & P completed: Yes 10/28/14 PA/LAT: Completed CT: Completed MRI: N/A LE US: N/A Cath: Yes - reviewed: Yes Echo:Completed EKG: Completed EF %: 65 PI's: N/A Carotid: N/A Mapping: N/A Dental: Completed PFT's: N/A No results for input(s): WBC, HB, HCT, PLT, INR, CREAT in the last 72 hours. UA: Normal HCG:N/A ABO/ABO Confirmed: Yes Blood ordered: No SA Swab: Yes - results: Negative Last Dose of Anticoagulation: OTC 11/12/14 Op Note: N/A Pacemaker Check: N/A Consults: none DM: Yes, A1c: 6.6% Cardiac Surgical prep: N/A SIGNATURE: JERSON Tian CHECKED BY: [email or web address] DATE of SERVICE: 11/14/2014 TIME of SERVICE: 10:59 AM discharge planning 11/10/2014 11/12/2014 Overview: 64yo male without any concerns presently Preop testing 11/10/2014 11/12/2014 Overview: Images from the original note were not included. [facility] Surgeon: Modesto Cifuentes M.D. Informed Consent Completed: pending STS Score: unsupported CAD: Yes - CAD on Problem List: Yes Is intended procedure a CABG: No - is a beta hue ordered? No - reason: not indicated H & P completed: Yes PA/LAT: Completed CT: Completed MRI: N/A LE US: N/A Cath: Yes - reviewed: Yes Echo:Completed EKG: Completed EF %: 65 PI's: Completed Carotid: N/A Mapping: N/A Dental: Pending PFT's: Completed No results for input(s): WBC, HB, HCT, PLT, INR, CREAT in the last 72 hours. UA: Normal HCG:N/A ABO/ABO Confirmed: Yes Blood ordered: No SA Swab: Yes - results: Pending Last Dose of Anticoagulation: vit basa LD 11/03 Op Note: N/A Pacemaker Check: N/A Consults: none DM: No Cardiac Surgical prep: N/A SIGNATURE: Kate Smith RN CHECKED BY: DATE of SERVICE: 11/10/2014 TIME of SERVICE: 10:05 AM Right rotator cuff tear 12/31/2013 08/25/19 17 Pain in joint, shoulder region 12/16/2013 0 08/24/2016 Essential hypertension, benign 12/03/2013 0 11/19/2014 Overview: Home RX; Nortvasc, ACEi A/P: NTg gtt to keep MAPS 65-75. Wean off. Hydralazine prn. Start BB when off Epi. Pain in joint, lower leg 04/16/2013 017 Degenerative tear of medial meniscus 04/16/2013 11/13/2020 Anxiety 07/08/2011 11/13/2020 Overview: Home Rx; Prozac. A/p Restarted Prozac. Esophagitis, unspecified 04/23/2009 017 Acute gastritis without mention of hemorrhage 08/24/2016 Trochanteric bursitis 03/05/2009 11/12/2014 Nontoxic uninodular goiter 01/16/200902/24 Overview: 08/13/19 US thyroid right mid-pole thyroid solid nodule 9 x 7 x 4 mm stable since 2016 Last Assessment & Plan: Assessment: under surveillance Nonallopathic lesion of sacr al region, not elsewhere classified 01/02/2009 11/13/2020 Osteoarthrosis, unspecified whether generalized or localized, unspecified site 11/12/2008 11/13/2020 ABSCESS GROIN 07/23/2008 08/23/2016 Obesity, unspecified 07/15/2008 09/16/2020 Pain in joint, pelvic region and thigh 9 08/24/2016 INTRINSIC ASTHMA UNSPECIFIED 09/03/2007 Other seborrheic keratosis 08/07/200708/23 Calcaneal spur 11/13/2020 Generalized anxiety disorder Overview: Anxiety, Generalized Unspecified asthma(493.90) 09/02 Asthma 08/24/2016 documented as of this encounter (statuses as of 04/14/2022) [facility] History of Past illness Narrative* Problem Noted Date Resolved Date Primary osteoarthritis of left knee 12/08/2019 11/13/2020 Bruit of left carotid artery 12/05/2019 Last Assessment & Plan: Assessment: pending Carotid US Chronic left shoulder pain 10/04/201709/16 Heartburn 02/27/2017 11/13/2020 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 02/17/2017 12/05/2019 Overview: Added automatically from request for surgery [id number] Acute pain of left knee 12/26/2016 11/14/19 Chronic right shoulder pain 12/26/2016 04/0 12/2020 Gross hematuria 11/24/2016 11/13/2020 Malignant neoplasm of kidney excluding renal pel vis 10/21/2016 02/27/2017 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, without long-term current use of insulin 09/30/2016 09/30/2016 Neuropathy 09/30/2016 11/13/2020 Last Assessment & Plan: Assessment: stable on rx Asthma with COPD with exacerbation 08/24/2016 02/27/2017 Counseling and coordination of care 12/15/2014 08/24/2016 SUMMARY 11/21/2014 08/24/2016 Overview: Indication for hospital admission/procedure: Aortic aneurysm LVEF: 65% LVH RVF: Normal Important/Relevant PMH/PSH: BAV, Congenital anomaly of aorta, SIVAKUMAR, Asthma, HTN, HPL, DM, anxiety Preoperative Hospital Course Procedure/Surgeries: 11/17/2014 Mini-BAV repair, Ascending aortic replacement Airway Difficulty: No OR Course: Coagulopathy/bleeding requiring correction with 20u cryo, 8u FFP, 4u plts, 3uprbcs and 2 pump runs for repair of aortic cannulation site Pacing wires: out Postoperative Course/General Impression: S/p AVr/Asc aorta replacement. Plan to wean o2, pep, oob, increase diuresis, cont BB, pain and glucose control. Issues to communicate at signout: CT removed CPAP at night echo done CTA done PT rec acute rehab Needs much encouragement wires out 11/23 d/c to acute rehab today Discharge planning 11/21/2014 05/03/2016 Overview: Pt from [place], [place]. PT rec acute rehab; CM working on placement. Leaving for [facility] in-pt rehab today Hypertension 11/20/2014 02/27/2017 Overview: History: pre op on monopril, norv, Assessment: normotensive currently Plan: Cont BB , cont lasix Atelectasis 11/18/2014 11/19/2014 Overview: Bilateral on CXR. A/P: PEP, EZPAP OOBTC. Volume overload 11/18/2014 08/24/2016 Overview: History: post op Assessment: wt up 5 kg from pre op Plan: cont diuresis On mechanically assisted ventilation 11/17/2014 11/19/2014 Overview: Grade 1 airway. WTE when awake and stable. Extubated on DOS. CPAP at night PEP. Cardiac insufficiency following cardiac surgery 11/17/2014 11/20/2014 Overview: Low CI. CVP low. A/p Epi gtt off. Start BB. Pre-op testing 11/14/2014 08/23/2016 Overview: Images from the original note were not included. [facility] Surgeon: Modesto Cifuentes M.D. Informed Consent Completed: Yes STS Score: unsupported CAD: No Is intended procedure a CABG: No - is a beta hue ordered? No - reason: not indicated H & P completed: Yes 10/28/14 PA/LAT: Completed CT: Completed MRI: N/A LE US: N/A Cath: Yes - reviewed: Yes Echo:Completed EKG: Completed EF %: 65 PI's: N/A Carotid: N/A Mapping: N/A Dental: Completed PFT's: N/A No results for input(s): WBC, HB, HCT, PLT, INR, CREAT in the last 72 hours. UA: Normal HCG:N/A ABO/ABO Confirmed: Yes Blood ordered: No SA Swab: Yes - results: Negative Last Dose of Anticoagulation: OTC 11/12/14 Op Note: N/A Pacemaker Check: N/A Consults: none DM: Yes, A1c: 6.6% Cardiac Surgical prep: N/A SIGNATURE: JERSON Tian CHECKED BY: [email or web address] DATE of SERVICE: 11/14/2014 TIME of SERVICE: 10:59 AM discharge planning 11/10/2014 11/12/2014 Overview: 64yo male without any concerns presently Preop testing 11/10/2014 11/12/2014 Overview: Images from the original note were not included. [facility] Surgeon: Modesto Cifuentes M.D. Informed Consent Completed: pending STS Score: unsupported CAD: Yes - CAD on Problem List: Yes Is intended procedure a CABG: No - is a beta hue ordered? No - reason: not indicated H & P completed: Yes PA/LAT: Completed CT: Completed MRI: N/A LE US: N/A Cath: Yes - reviewed: Yes Echo:Completed EKG: Completed EF %: 65 PI's: Completed Carotid: N/A Mapping: N/A Dental: Pending PFT's: Completed No results for input(s): WBC, HB, HCT, PLT, INR, CREAT in the last 72 hours. UA: Normal HCG:N/A ABO/ABO Confirmed: Yes Blood ordered: No SA Swab: Yes - results: Pending Last Dose of Anticoagulation: vit basa LD 11/03 Op Note: N/A Pacemaker Check: N/A Consults: none DM: No Cardiac Surgical prep: N/A SIGNATURE: Kate Smith RN CHECKED BY: DATE of SERVICE: 11/10/2014 TIME of SERVICE: 10:05 AM Right rotator cuff tear 12/31/2013 08/25/19 17 Pain in joint, shoulder region 12/16/2013 0 08/24/2016 Essential hypertension, benign 12/03/2013 0 11/19/2014 Overview: Home RX; Nortvasc, ACEi A/P: NTg gtt to keep MAPS 65-75. Wean off. Hydralazine prn. Start BB when off Epi. Pain in joint, lower leg 04/16/2013 017 Degenerative tear of medial meniscus 04/16/2013 11/13/2020 Anxiety 07/08/2011 11/13/2020 Overview: Home Rx; Prozac. A/p Restarted Prozac. Esophagitis, unspecified 04/23/2009 017 Acute gastritis without mention of hemorrhage 08/24/2016 Trochanteric bursitis 03/05/2009 11/12/2014 Nontoxic uninodular goiter 01/16/200902/24 Overview: 08/13/19 thyroid right mid-pole thyroid solid nodule 9 x 7 x 4 mm stable since 2016 Last Assessment & Plan: Assessment: under surveillance Nonallopathic lesion of sacr al region, not elsewhere classified 01/02/2009 11/13/2020 Osteoarthrosis, unspecified whether generalized or localized, unspecified site 11/12/2008 11/13/2020 ABSCESS GROIN 07/23/2008 08/23/2016 Obesity, unspecified 07/15/2008 09/16/2020 Pain in joint, pelvic region and thigh 08/24/2016 INTRINSIC ASTHMA UNSPECIFIED 09/03/2007 Other seborrheic keratosis 08/07/200708/23 Calcaneal spur 11/13/2020 Generalized anxiety disorder Overview: Anxiety, Generalized Unspecified asthma(493.90) 09/02 Asthma 08/24/2016 documented as of this encounter (statuses as of 04/18/2022) [facility] History of Past illness Narrative* Problem Noted Date Resolved Date Primary osteoarthritis of left knee 12/08/2019 11/13/2020 Bruit of left carotid artery 12/05/2019 Last Assessment & Plan: Assessment: pending Carotid US Chronic left shoulder pain 10/04/201709/16 Heartburn 02/27/2017 11/13/2020 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 02/17/2017 12/05/2019 Overview: Added automatically from request for surgery [id number] Acute pain of left knee 12/26/2016 11/14/19 Chronic right shoulder pain 12/26/2016 04/0 12/2020 Gross hematuria 11/24/2016 11/13/2020 Malignant neoplasm of kidney excluding renal pel vis 10/21/2016 02/27/2017 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, without long-term current use of insulin 09/30/2016 09/30/2016 Neuropathy 09/30/2016 11/13/2020 Last Assessment & Plan: Assessment: stable on rx Asthma with COPD with exacerbation 08/24/2016 02/27/2017 Counseling and coordination of care 12/15/2014 08/24/2016 SUMMARY 11/21/2014 08/24/2016 Overview: Indication for hospital admission/procedure: Aortic aneurysm LVEF: 65% LVH RVF: Normal Important/Relevant PMH/PSH: BAV, Congenital anomaly of aorta, SIVAKUMAR, Asthma, HTN, HPL, DM, anxiety Preoperative Hospital Course Procedure/Surgeries: 11/17/2014 Mini-BAV repair, Ascending aortic replacement Airway Difficulty: No OR Course: Coagulopathy/bleeding requiring correction with 20u cryo, 8u FFP, 4u plts, 3uprbcs and 2 pump runs for repair of aortic cannulation site Pacing wires: out Postoperative Course/General Impression: S/p AVr/Asc aorta replacement. Plan to wean o2, pep, oob, increase diuresis, cont BB, pain and glucose control. Issues to communicate at signout: CT removed CPAP at night echo done CTA done PT rec acute rehab Needs much encouragement wires out 11/23 d/c to acute rehab today Discharge planning 11/21/2014 05/03/2016 Overview: Pt from [place], [place]. PT rec acute rehab; CM working on placement. Leaving for [facility] in-pt rehab today Hypertension 11/20/2014 02/27/2017 Overview: History: pre op on monopril, norv, Assessment: normotensive currently Plan: Cont BB , cont lasix Atelectasis 11/18/2014 11/19/2014 Overview: Bilateral on CXR. A/P: PEP, EZPAP OOBTC. Volume overload 11/18/2014 08/24/2016 Overview: History: post op Assessment: wt up 5 kg from pre op Plan: cont diuresis On mechanically assisted ventilation 11/17/2014 11/19/2014 Overview: Grade 1 airway. WTE when awake and stable. Extubated on DOS. CPAP at night PEP. Cardiac insufficiency following cardiac surgery 11/17/2014 11/20/2014 Overview: Low CI. CVP low. A/p Epi gtt off. Start BB. Pre-op testing 11/14/2014 08/23/2016 Overview: Images from the original note were not included. [facility] Surgeon: Modesto Cifuentes M.D. Informed Consent Completed: Yes STS Score: unsupported CAD: No Is intended procedure a CABG: No - is a beta hue ordered? No - reason: not indicated H & P completed: Yes 5/19/15 PA/LAT: Completed CT: Completed MRI: N/A LE US: N/A Cath: Yes - reviewed: Yes Echo:Completed EKG: Completed EF %: 65 PI's: N/A Carotid: N/A Mapping: N/A Dental: Completed PFT's: N/A No results for input(s): WBC, HB, HCT, PLT, INR, CREAT in the last 72 hours. UA: Normal HCG:N/A ABO/ABO Confirmed: Yes Blood ordered: No SA Swab: Yes - results: Negative Last Dose of Anticoagulation: OTC 11/12/14 Op Note: N/A Pacemaker Check: N/A Consults: none DM: Yes, A1c: 6.6% Cardiac Surgical prep: N/A SIGNATURE: JERSON Tian CHECKED BY: [email or web address] DATE of SERVICE: 11/14/2014 TIME of SERVICE: 10:59 AM discharge planning 11/10/2014 11/12/2014 Overview: 64yo male without any concerns presently Preop testing 11/10/2014 11/12/2014 Overview: Images from the original note were not included. [facility] PRE[facility] Surgeon: Modesto Cifuentes M.D. Informed Consent Completed: pending STS Score: unsupported CAD: Yes - CAD on Problem List: Yes Is intended procedure a CABG: No - is a beta hue ordered? No - reason: not indicated H & P completed: Yes PA/LAT: Completed CT: Completed MRI: N/A LE US: N/A Cath: Yes - reviewed: Yes Echo:Completed EKG: Completed EF %: 65 PI's: Completed Carotid: N/A Mapping: N/A Dental: Pending PFT's: Completed No results for input(s): WBC, HB, HCT, PLT, INR, CREAT in the last 72 hours. UA: Normal HCG:N/A ABO/ABO Confirmed: Yes Blood ordered: No SA Swab: Yes - results: Pending Last Dose of Anticoagulation: vit basa LD 11/03 Op Note: N/A Pacemaker Check: N/A Consults: none DM: No Cardiac Surgical prep: N/A SIGNATURE: Kate Smith RN CHECKED BY: DATE of SERVICE: 11/10/2014 TIME of SERVICE: 10:05 AM Right rotator cuff tear 12/31/2013 08/25/19 17 Pain in joint, shoulder region 12/16/2013 0 08/24/2016 Essential hypertension, benign 12/03/2013 0 11/19/2014 Overview: Home RX; Nortvasc, ACEi A/P: NTg gtt to keep MAPS 65-75. Wean off. Hydralazine prn. Start BB when off Epi. Pain in joint, lower leg 04/16/2013 017 Degenerative tear of medial meniscus 04/16/2013 11/13/2020 Anxiety 07/08/2011 11/13/2020 Overview: Home Rx; Prozac. A/p Restarted Prozac. Esophagitis, unspecified 04/23/2009 017 Acute gastritis without mention of hemorrhage 08/24/2016 Trochanteric bursitis 03/05/2009 11/12/2014 Nontoxic uninodular goiter 01/16/200902/24 Overview: 08/13/19 US thyroid right mid-pole thyroid solid nodule 9 x 7 x 4 mm stable since 2016 Last Assessment & Plan: Assessment: under surveillance Nonallopathic lesion of sacr al region, not elsewhere classified 01/02/2009 11/13/2020 Osteoarthrosis, unspecified whether generalized or localized, unspecified site 11/12/2008 11/13/2020 ABSCESS GROIN 07/23/2008 08/23/2016 Obesity, unspecified 07/15/2008 09/16/2020 Pain in joint, pelvic region and thigh 9 08/24/2016 INTRINSIC ASTHMA UNSPECIFIED 09/03/2007 Other seborrheic keratosis 08/07/200708/23 Calcaneal spur 11/13/2020 Generalized anxiety disorder Overview: Anxiety, Generalized Unspecified asthma(493.90) 09/02 Asthma 08/24/2016 documented as of this encounter (statuses as of 04/18/2022) [facility]06[facility] History of Past illness Narrative* Problem Noted Date Resolved Date Primary osteoarthritis of left knee 12/08/2019 11/13/2020 Bruit of left carotid artery 12/05/2019 Last Assessment & Plan: Assessment: pending Carotid US Chronic left shoulder pain 10/04/201709/16 Heartburn 02/27/2017 11/13/2020 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 02/17/2017 12/05/2019 Overview: Added automatically from request for surgery [id number] Acute pain of left knee 12/26/2016 11/14/19 Chronic right shoulder pain 12/26/2016 0412/2020 Gross hematuria 11/24/2016 11/13/2020 Malignant neoplasm of kidney excluding renal pel vis 10/21/2016 02/27/2017 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, without long-term current use of insulin 09/30/2016 09/30/2016 Neuropathy 09/30/2016 11/13/2020 Last Assessment & Plan: Assessment: stable on rx Asthma with COPD with exacerbation 08/24/2016 02/27/2017 Counseling and coordination of care 12/15/2014 08/24/2016 SUMMARY 11/21/2014 08/24/2016 Overview: Indication for hospital admission/procedure: Aortic aneurysm LVEF: 65% LVH RVF: Normal Important/Relevant PMH/PSH: BAV, Congenital anomaly of aorta, SIVAKUMAR, Asthma, HTN, HPL, DM, anxiety Preoperative Hospital Course Procedure/Surgeries: 11/17/2014 Mini-BAV repair, Ascending aortic replacement Airway Difficulty: No OR Course: Coagulopathy/bleeding requiring correction with 20u cryo, 8u FFP, 4u plts, 3uprbcs and 2 pump runs for repair of aortic cannulation site Pacing wires: out Postoperative Course/General Impression: S/p AVr/Asc aorta replacement. Plan to wean o2, pep, oob, increase diuresis, cont BB, pain and glucose control. Issues to communicate at signout: CT removed CPAP at night echo done CTA done PT rec acute rehab Needs much encouragement wires out 11/23 d/c to acute rehab today Discharge planning 11/21/2014 05/03/2016 Overview: Pt from [place], [place]. PT rec acute rehab; CM working on placement. Leaving for [facility] in-pt rehab today Hypertension 11/20/2014 02/27/2017 Overview: History: pre op on monopril, norv, Assessment: normotensive currently Plan: Cont BB , cont lasix Atelectasis 11/18/2014 11/19/2014 Overview: Bilateral on CXR. A/P: PEP, EZPAP OOBTC. Volume overload 11/18/2014 08/24/2016 Overview: History: post op Assessment: wt up 5 kg from pre op Plan: cont diuresis On mechanically assisted ventilation 11/17/2014 11/19/2014 Overview: Grade 1 airway. WTE when awake and stable. Extubated on DOS. CPAP at night PEP. Cardiac insufficiency following cardiac surgery 11/17/2014 11/20/2014 Overview: Low CI. CVP low. A/p Epi gtt off. Start BB. Pre-op testing 11/14/2014 08/23/2016 Overview: Images from the original note were not included. [facility] Surgeon: Modesto Cifuentes M.D. Informed Consent Completed: Yes STS Score: unsupported CAD: No Is intended procedure a CABG: No - is a beta hue ordered? No - reason: not indicated H & P completed: Yes 10/28/14 PA/LAT: Completed CT: Completed MRI: N/A LE US: N/A Cath: Yes - reviewed: Yes Echo:Completed EKG: Completed EF %: 65 PI's: N/A Carotid: N/A Mapping: N/A Dental: Completed PFT's: N/A No results for input(s): WBC, HB, HCT, PLT, INR, CREAT in the last 72 hours. UA: Normal HCG:N/A ABO/ABO Confirmed: Yes Blood ordered: No SA Swab: Yes - results: Negative Last Dose of Anticoagulation: OTC 11/12/14 Op Note: N/A Pacemaker Check: N/A Consults: none DM: Yes, A1c: 6.6% Cardiac Surgical prep: N/A SIGNATURE: JERSON Tian CHECKED BY: [email or web address] DATE of SERVICE: 11/14/2014 TIME of SERVICE: 10:59 AM discharge planning 11/10/2014 11/12/2014 Overview: 64yo male without any concerns presently Preop testing 11/10/2014 11/12/2014 Overview: Images from the original note were not included. [facility] Surgeon: Modesto Cifuentes M.D. Informed Consent Completed: pending STS Score: unsupported CAD: Yes - CAD on Problem List: Yes Is intended procedure a CABG: No - is a beta hue ordered? No - reason: not indicated H & P completed: Yes PA/LAT: Completed CT: Completed MRI: N/A LE US: N/A Cath: Yes - reviewed: Yes Echo:Completed EKG: Completed EF %: 65 PI's: Completed Carotid: N/A Mapping: N/A Dental: Pending PFT's: Completed No results for input(s): WBC, HB, HCT, PLT, INR, CREAT in the last 72 hours. UA: Normal HCG:N/A ABO/ABO Confirmed: Yes Blood ordered: No SA Swab: Yes - results: Pending Last Dose of Anticoagulation: vit basa LD 11/03 Op Note: N/A Pacemaker Check: N/A Consults: none DM: No Cardiac Surgical prep: N/A SIGNATURE: Kate Smith RN CHECKED BY: DATE of SERVICE: 11/10/2014 TIME of SERVICE: 10:05 AM Right rotator cuff tear 12/31/2013 08/25/19 17 Pain in joint, shoulder region 12/16/2013 0 08/24/2016 Essential hypertension, benign 12/03/2013 0 11/19/2014 Overview: Home RX; Nortvasc, ACEi A/P: NTg gtt to keep MAPS 65-75. Wean off. Hydralazine prn. Start BB when off Epi. Pain in joint, lower leg 04/16/2013 017 Degenerative tear of medial meniscus 04/16/2013 11/13/2020 Anxiety 07/08/2011 11/13/2020 Overview: Home Rx; Prozac. A/p Restarted Prozac. Esophagitis, unspecified 04/23/2009 017 Acute gastritis without mention of hemorrhage 08/24/2016 Trochanteric bursitis 03/05/2009 11/12/2014 Nontoxic uninodular goiter 01/16/200902/24 Overview: 08/13/19 thyroid right mid-pole thyroid solid nodule 9 x 7 x 4 mm stable since 2016 Last Assessment & Plan: Assessment: under surveillance Nonallopathic lesion of sacr al region, not elsewhere classified 01/02/2009 11/13/2020 Osteoarthrosis, unspecified whether generalized or localized, unspecified site 11/12/2008 11/13/2020 ABSCESS GROIN 07/23/2008 08/23/2016 Obesity, unspecified 07/15/2008 09/16/2020 Pain in joint, pelvic region and thigh 9 08/24/2016 INTRINSIC ASTHMA UNSPECIFIED 09/03/2007 Other seborrheic keratosis 08/07/200708/23 Calcaneal spur 11/13/2020 Generalized anxiety disorder Overview: Anxiety, Generalized Unspecified asthma(493.90) 09/02 Asthma 08/24/2016 documented as of this encounter (statuses as of 04/19/2022) [facility] Diagnosis Primary hypertension Unspecified essential hypertension [facility] Diagnosis Essential hypertension Unspecified essential hypertension Depression, major, recurrent, in complete remission (HCC) Major depressive disorder, recurrent episode, in full remission [facility]* Diagnosis DDD (degenerative disc disease), lumbar- Primary Degeneration of lumbar or lumbosacral intervertebral disc Spinal stenosis of lumbar region, unspecified whether neurogenic claudication present Spondylolisthesis of lumbar region Acquired spondylolisthesis [facility]* Diagnosis Onychomycosis- Primary Dermatophytosis of nail Pain in toe of left foot Pain in limb Pain in toe of right foot Pain in limb Diabetic polyneuropathy associated with type 2 diabetes mellitus (HCC) PAD (peripheral artery disease) (HCC) Peripheral vascular disease, unspecified Tinea pedis of right foot Dermatophytosis of foot DDD (degenerative disc disease), lumbar Degeneration of lumbar or lumbosacral intervertebral disc Spinal stenosis of lumbar region, unspecified whether neurogenic claudication present Spondylolisthesis of lumbar region Acquired spondylolisthesis [facility]* Diagnosis History of DVT (deep vein thrombosis)- Primary Personal history of venous thrombosis and embolism Elevated factor VIII level DDD (degenerative disc disease), lumbar Degeneration of lumbar or lumbosacral intervertebral disc Spinal stenosis of lumbar region, unspecified whether neurogenic claudication present Spondylolisthesis of lumbar region Acquired spondylolisthesis [facility]* Diagnosis Coronary artery disease involving [place] heart without angina pectoris, unspecified vessel or lesion type- Primary History of aortic valve replacement Heart valve replaced by other means Multiple subsegmental pulmonary emboli without acute cor pulmonale (HCC) Bilateral carotid artery stenosis Occlusion and stenosis of carotid artery without mention of cerebral infarction Mixed hyperlipidemia Essential hypertension Unspecified essential hypertension Thoracic aortic aneurysm without rupture (HCC) Thoracic aneurysm without mention of rupture SIVAKUMAR on CPAP Obstructive sleep apnea (adult) (pediatric) Controlled type 2 diabetes mellitus without complication, without long-term current use of insulin ([facility]) [facility] Diagnosis History of DVT (deep vein thrombosis) Personal history of venous thrombosis and embolism Elevated factor VIII level [facility] Diagnosis Hypercalcemia- Primary [facility] Diagnosis Hypercalcemia- Primary [facility] Diagnosis Controlled type 2 diabetes mellitus without complication, without long-term current use of insulin (HCC) [facility] Diagnosis Nontoxic single thyroid nodule- Primary Nontoxic uninodular goiter Hypercalcemia Other osteoporosis without current pathological fracture Controlled type 2 diabetes mellitus without complication, without long-term current use of insulin (HCC) [facility]* Diagnosis DDD (degenerative disc disease), lumbar- Primary Degeneration of lumbar or lumbosacral intervertebral disc Spinal stenosis of lumbar region, unspecified whether neurogenic claudication present Spondylolisthesis of lumbar region Acquired spondylolisthesis Myalgia Mylagia and myositis, unspecified Other chronic pain [facility]* Diagnosis Essential hypertension Unspecified essential hypertension [facility]* Diagnosis Fatigue, unspecified type- Primary [facility]* Diagnosis Diverticulosis- Primary Diverticulosis of colon (without mention of hemorrhage) Change in bowel function Other symptoms involving digestive system [facility]* Diagnosis Dermatitis- Primary Contact dermatitis and other eczema, due to unspecified cause [facility]* Diagnosis Chest pain, unspecified type [facility]* Diagnosis Depression, major, recurrent, in complete remission (HCC) Major depressive disorder, recurrent episode, in full remission [facility]* Diagnosis Onychomycosis- Primary Dermatophytosis of nail Pain in toe of left foot Pain in limb Pain in toe of right foot Pain in limb Diabetic polyneuropathy associated with type 2 diabetes mellitus (HCC) PAD (peripheral artery disease) (HCC) Peripheral vascular disease, unspecified [facility]* Diagnosis Lumbosacral spondylosis with radiculopathy- Primary Primary osteoarthritis of left hip Primary localized osteoarthrosis, pelvic region and thigh Hip pain Pain in joint, pelvic region and thigh [facility]* Diagnosis Perianal rash- Primary Rash and other nonspecific skin eruption [facility]* Diagnosis Screening for nephropathy- Primary [facility]* Diagnosis Controlled type 2 diabetes mellitus without complication, without long-term current use of insulin (HCC) DDD (degenerative disc disease), lumbar Degeneration of lumbar or lumbosacral intervertebral disc Spondylolisthesis of lumbar region Acquired spondylolisthesis Spinal stenosis of lumbar region, unspecified whether neurogenic claudication present [facility]* Diagnosis Screening for ischemic heart disease- Primary DDD (degenerative disc disease), lumbar Degeneration of lumbar or lumbosacral intervertebral disc Spondylolisthesis of lumbar region Acquired spondylolisthesis Spinal stenosis of lumbar region, unspecified whether neurogenic claudication present [facility] Diagnosis Chest pain, unspecified type DDD (degenerative disc disease), lumbar Degeneration of lumbar or lumbosacral intervertebral disc Spondylolisthesis of lumbar region Acquired spondylolisthesis Spinal stenosis of lumbar region, unspecified whether neurogenic claudication present [facility]* Diagnosis Hypercalcemia- Primary Hypercalciuria [R82.994 (ICD-10-CM)] Unspecified disorders of calcium metabolism DDD (degenerative disc disease), lumbar Degeneration of lumbar or lumbosacral intervertebral disc Spondylolisthesis of lumbar region Acquired spondylolisthesis Spinal stenosis of lumbar region, unspecified whether neurogenic claudication present [facility]* Diagnosis COVID-19- Primary DDD (degenerative disc disease), lumbar Degeneration of lumbar or lumbosacral intervertebral disc Spondylolisthesis of lumbar region Acquired spondylolisthesis Spinal stenosis of lumbar region, unspecified whether neurogenic claudication present [facility]* Diagnosis Lumbosacral spondylosis with radiculopathy [facility]* Diagnosis Lumbosacral spondylosis with radiculopathy- Primary [facility]* Diagnosis Lumbosacral spondylosis with radiculopathy- Primary [facility]* Diagnosis Cough [facility]* Diagnosis Lumbosacral spondylosis with radiculopathy- Primary [facility]* Diagnosis Coronary artery disease involving [place] heart without angina pectoris, unspecified vessel or lesion type- Primary Essential hypertension Unspecified essential hypertension History of aortic valve replacement Heart valve replaced by other means Mixed hyperlipidemia SIVAKUMAR on CPAP Obstructive sleep apnea (adult) (pediatric) Benign paroxysmal positional vertigo, unspecified laterality Fatty liver Other chronic nonalcoholic liver disease Controlled type 2 diabetes mellitus without complication, without long-term current use of insulin (HCC) Recurrent major depression in partial remission (HCC) Major depressive disorder, recurrent episode, in partial or unspecified remission Bilateral carotid artery stenosis Occlusion and stenosis of carotid artery without mention of cerebral infarction documented [facility] this [facility]* Diagnosis Lumbosacral spondylosis with radiculopathy- Primary documented in this encounter [facility]* Diagnosis Right knee pain, unspecified chronicity- Primary documented in this encounter [facility]* Diagnosis Status post total left knee replacement- Primary documented in this encounter [facility]* Diagnosis Elevated liver enzymes- Primary Other nonspecific abnormal serum enzyme levels documented in this encounter [facility] note* Diagnosis Chronic pain of right knee- Primary Primary osteoarthritis of right knee Primary localized osteoarthrosis, lower leg documented in this encounter [facility] note* Diagnosis Controlled type 2 diabetes mellitus without complication, without long-term current use of insulin ([facility]) documented in this encounter [facility] note* Diagnosis Hypercalcemia- Primary [facility]* Diagnosis Depression, major, recurrent, in complete remission (HCC) Major depressive disorder, recurrent episode, in full remission documented in this encounter [facility] note* Diagnosis Coronary artery disease involving [place] coronary artery of [place] heart without angina pectoris- Primary Aortic valve stenosis, etiology of cardiac valve disease unspecified Essential hypertension Unspecified essential hypertension Mixed hyperlipidemia Chronic diastolic congestive heart failure (HCC) Chronic diastolic heart failure Obesity, Class I, BMI 30-34.9 Obesity, unspecified Stenosis of carotid artery, unspecified laterality Controlled type 2 diabetes mellitus without complication, without long-term current use of insulin (HCC) documented in this encounter [facility] note* Diagnosis Onychomycosis- Primary Dermatophytosis of nail Pain in toe of left foot Pain in limb Pain in toe of right foot Pain in limb Diabetic polyneuropathy associated with type 2 diabetes mellitus (HCC) PAD (peripheral artery disease) (HCC) Peripheral vascular disease, unspecified documented in this encounter [facility] note* Diagnosis Infection of total joint prosthesis, initial encounter ([facility])- Primary Infection of total joint prosthesis, initial encounter ([facility]) documented in this encounter [facility] note* Diagnosis Chronic right shoulder pain- Primary Pain in joint, shoulder region Infection of total joint prosthesis, initial encounter ([facility]) documented in this encounter [facility] note* Diagnosis Preop examination- Primary Preoperative examination, unspecified Right shoulder pain, unspecified chronicity Infection of total joint prosthesis, initial encounter ([facility]) documented in this encounter [facility]* Diagnosis Primary hypertension Unspecified essential hypertension Pre-op examination Preoperative examination, unspecified Essential hypertension Unspecified essential hypertension Mixed hyperlipidemia Controlled type 2 diabetes mellitus without complication, without long-term current use of insulin (HCC) History of DVT (deep vein thrombosis) Personal history of venous thrombosis and embolism Multiple subsegmental pulmonary emboli without acute cor pulmonale (HCC) SIVAKUMAR on CPAP Obstructive sleep apnea (adult) (pediatric) Coronary artery disease involving point hope ira heart without angina pectoris, unspecified vessel or lesion type Infection of total joint prosthesis, initial encounter ([facility]) documented in this encounter [facility] note* Diagnosis Pre-op examination- Primary Preoperative examination, unspecified Essential hypertension Unspecified essential hypertension Mixed hyperlipidemia Controlled type 2 diabetes mellitus without complication, without long-term current use of insulin (HCC) History of DVT (deep vein thrombosis) Personal history of venous thrombosis and embolism Multiple subsegmental pulmonary emboli without acute cor pulmonale (HCC) SIVAKUMAR on CPAP Obstructive sleep apnea (adult) (pediatric) Coronary artery disease involving point hope ira heart without angina pectoris, unspecified vessel or lesion type History of aortic valve replacement Heart valve replaced by other means Infection of total joint prosthesis, initial encounter ([facility]) documented in this encounter [facility]* Diagnosis S/P AVR [Z95.2 (ICD-10-CM)]- Primary Heart valve replaced by other means Infection of total joint prosthesis, initial encounter ([facility]) documented in this encounter [facility]* Diagnosis Essential hypertension Unspecified essential hypertension Infection of total joint prosthesis, initial encounter ([facility]) documented in this encounter [facility]* Diagnosis Infection of prosthetic joint, initial encounter ([facility])- Primary S/P reverse total shoulder arthroplasty, right [facility] Diagnosis Status post reverse total arthroplasty of right shoulder- Primary Infection of total joint prosthesis, initial encounter ([facility]) documented in this encounter [facility]* Diagnosis History of revision of total shoulder arthroplasty- Primary [facility]* Diagnosis Chronic right shoulder pain- Primary Pain in joint, shoulder region documented in this encounter [facility]* Diagnosis Status post reverse total arthroplasty of right shoulder- Primary documented in this encounter [facility]* Diagnosis Controlled type 2 diabetes mellitus without complication, without long-term current use of insulin ([facility]) documented in this encounter [facility]* Diagnosis Status post reverse total arthroplasty of right shoulder- Primary Infection of total joint prosthesis, subsequent encounter [facility]* Diagnosis Essential hypertension Unspecified essential hypertension [facility]* Diagnosis History of revision of total shoulder arthroplasty- Primary [facility]* Diagnosis History of revision of total shoulder arthroplasty- Primary [facility]* Diagnosis Fatigue, unspecified type- Primary Recurrent major depression in partial remission ([facility]) Major depressive disorder, recurrent episode, in partial or unspecified remission Coronary artery disease involving point hope ira heart without angina pectoris, unspecified vessel or lesion type Controlled type 2 diabetes mellitus without complication, without long-term current use of insulin ([facility]) Infection of total joint prosthesis, subsequent encounter Chronic insomnia Insomnia, unspecified [facility] Diagnosis Onychomycosis- Primary Dermatophytosis of nail Pain in toe of left foot Pain in limb Pain in toe of right foot Pain in limb Diabetic polyneuropathy associated with type 2 diabetes mellitus (HCC) PAD (peripheral artery disease) ([facility]) Peripheral vascular disease, unspecified Multiple subsegmental pulmonary emboli without acute cor pulmonale ([facility]) [facility] Diagnosis History of revision of total shoulder arthroplasty- Primary [facility]* Diagnosis History of revision of total shoulder arthroplasty- Primary [facility]* Diagnosis Status post reverse total arthroplasty of right shoulder- Primary [facility]* Diagnosis Lumbar spondylosis- Primary Lumbosacral spondylosis without myelopathy DDD (degenerative disc disease), lumbar Degeneration of lumbar or lumbosacral intervertebral disc [facility]* Diagnosis Lumbar spondylosis- Primary Lumbosacral spondylosis without myelopathy DDD (degenerative disc disease), lumbar Degeneration of lumbar or lumbosacral intervertebral disc Spondylolisthesis of lumbar region Acquired spondylolisthesis Spinal stenosis of lumbar region, unspecified whether neurogenic claudication present [facility]* Diagnosis Lumbar spondylosis- Primary Lumbosacral spondylosis without myelopathy DDD (degenerative disc disease), lumbar Degeneration of lumbar or lumbosacral intervertebral disc [facility] Diagnosis Lumbar spondylosis- Primary Lumbosacral spondylosis without myelopathy [facility] Diagnosis Lumbar spondylosis- Primary Lumbosacral spondylosis without myelopathy [facility]* Diagnosis Lumbar spondylosis- Primary Lumbosacral spondylosis without myelopathy [facility]* Diagnosis Essential hypertension- Primary Unspecified essential hypertension Mixed hyperlipidemia Restless legs syndrome (RLS) History of aortic valve replacement Heart valve replaced by other means SIVAKUMAR on CPAP Obstructive sleep apnea (adult) (pediatric) Moderate persistent asthma without complication Unspecified asthma Benign paroxysmal positional vertigo, unspecified laterality Controlled type 2 diabetes mellitus without complication, without long-term current use of insulin ([facility]) DDD (degenerative disc disease), lumbar Degeneration of lumbar or lumbosacral intervertebral disc Vitamin D deficiency Unspecified vitamin D deficiency Bilateral carotid artery stenosis Occlusion and stenosis of carotid artery without mention of cerebral infarction History of DVT (deep vein thrombosis) Personal history of venous thrombosis and embolism Elevated factor VIII level Change in bowel habits Other symptoms involving digestive system Screening for prostate cancer Special screening for malignant neoplasm of prostate [facility]* Diagnosis Change in bowel habits Other symptoms involving digestive system [facility] Diagnosis Onychomycosis- Primary Dermatophytosis of nail Pain in toe of left foot Pain in limb Pain in toe of right foot Pain in limb PAD (peripheral artery disease) (HCC) Peripheral vascular disease, unspecified Diabetic polyneuropathy associated with type 2 diabetes mellitus (HCC) [facility]* Diagnosis Elevated AST (SGOT)- Primary Nonspecific elevation of levels of transaminase or lactic acid dehydrogenase (LDH) [facility]* Diagnosis Controlled type 2 diabetes mellitus without complication, without long-term current use of insulin (HCC)- Primary SIVAKUMAR on CPAP Obstructive sleep apnea (adult) (pediatric) Moderate persistent asthma without complication Unspecified asthma documented in this encounter [facility] for referral (narrative)* Diagnostic Procedure Only (Routine) - Pending Review Specialty Diagnoses / Procedures Referred By Isak t Referred To Contact XR IMAGING Diagnoses Hypercalcemia Procedures DXA-FOREARM SKELETON DXA BONE DENSITY STUDY 1/SITES APPENDICLR Anthony An MD [address] [place] [address] Xr Imaging Referral ID Status Reason Start Date Expiration Date Visits Requested Visits Authorized [id number] Pending Review Auto-Generat ed Referral 11/19/2021 12/19/2022 1 1 [facility] for referral (narrative)* - Authorized Specialty Diagnoses / Procedures Referred By Contac t Referred To Contact Physical Therapy Diagnoses Lumbosacral spondylosis with radiculopathy Procedures CONSULT TO PHYSICAL THERAPY Elsi Gallagher PA-C [address] [place] [address] Referral ID Status Reason Start Date Expiration Date V isits Requested Visits Authorized [id number] Authorized 01/31/2022 05/01/2022 99 99 T [facility] for referral (narrative)* Diagnostic Procedure Only (Routine) - Closed Specialty Diagnoses / Procedures Referred By Contac t Referred To Contact MOLECULAR & FUNCTIONAL IMAGING Diagnoses Chest pain, unspecified type Procedures NM CARDIAC PERF STRESS/PHARM MYOCARDIAL SPECT MULTIPLE STUDIES Margo Selby APRN.CNP [address] [address] [facility] [address] [place] [address] Referral ID Status Reason Start Date Expiration Date V isits Requested Visits Authorized [id number] Closed Auto-Generate d Referral 12/20/2021 01/19/2023 1 1 [facility] for referral (narrative)* Diagnostic Procedure Only (Routine) - Pending Review Specialty Diagnoses / Procedures Referred By Contac t Referred To Contact XR IMAGING Diagnoses Right knee pain, unspecified chronicity Procedures XR KNEE GENERAL 4V AP BOTH/PA BOTH/LAT/MERC RIGHT RADIOLOGIC EXAM KNEE COMPLETE 4/MORE VIEWS Francisco Javier Malik MD [address] [place] [address] Xr Imaging Referral ID Status Reason Start Date Expiration Date Visits Requested Visits Authorized [id number] Pending Review Auto-Generat ed Referral 05/28/2023 1 1 [facility] for referral (narrative)* Diagnostic Procedure Only (Routine) - Pending Review Specialty Diagnoses / Procedures Referred By Contac t Referred To Contact XR IMAGING Diagnoses Chronic right shoulder pain Procedures XR SHOULDER GENERAL 3V OR MORE AP/TRUE AP/OTHER RIGHT RADEX SHOULDER COMPLETE MINIMUM 2 VIEWS Michelle Ward PA-C [address] [place] [address] Xr Imaging Referral ID Status Reason Start Date Expiration Date Visits Requested Visits Authorized [id number] Pending Review Auto-Generat ed Referral 08/25/2022 09/15/2023 1 1 [facility] for referral (narrative)* Diagnostic Procedure Only (Routine) - Pending Review Specialty Diagnoses / Procedures Referred By Contac t Referred To Contact XR IMAGING Diagnoses S/P reverse total shoulder arthroplasty, right Infection of prosthetic joint, initial encounter (HCC) Procedures XR SHOULDER 3V AP/Y VIEW/AXILLARY RIGHT (AK) RADEX SHOULDER COMPLETE MINIMUM 2 VIEWS Viry Bales MD [address] [facility] [place] [address] Xr Imaging Referral ID Status Reason Start Date Expiration Date Visits Requested Visits Authorized [id number] Pending Review Auto-Generat ed Referral 08/18/2022 09/17/2023 1 1 [facility] for referral (narrative)* Diagnostic Procedure Only (Routine) - Pending Review Specialty Diagnoses / Procedures Referred By Contac t Referred To Contact XR IMAGING Diagnoses Chronic right shoulder pain Procedures XR SHOULDER GENERAL 3V OR MORE AP/TRUE AP/OTHER RIGHT RADEX SHOULDER COMPLETE MINIMUM 2 VIEWS Michelle Ward PA-C [address] [place] [address] Xr Imaging Referral ID Status Reason Start Date Expiration Date Visits Requested Visits Authorized [id number] Pending Review Auto-Generat ed Referral 09/30/2022 10/29/2023 1 1 [facility] for referral (narrative)* Diagnostic Procedure Only (Routine) - Pending Review Specialty Diagnoses / Procedures Referred By Contac t Referred To Contact XR IMAGING Diagnoses Status post reverse total arthroplasty of right shoulder Procedures XR SHOULDER 3V AP/Y VIEW/AXILLARY RIGHT (AK) RADEX SHOULDER COMPLETE MINIMUM 2 VIEWS Michelle Ward PA-C [address] [place] [address] Xr Imaging Referral ID Status Reason Start Date Expiration Date Visits Requested Visits Authorized [id number] Pending Review Auto-Generat ed Referral 12/20/2022 01/19/2024 1 1 [facility] for referral (narrative)* Outpatient Procedure (Routine) - Authorized Specialty Diagnoses / Procedures Referred By Contac t Referred To Contact [facility] Diagnoses Change in bowel habits Procedures COLONOSCOPY DIAGNOSTIC COLONOSCOPY FLX DX W/COLLJ SPEC WHEN PFRMD Martín Murillo MD [address] [facility] [address] [facility] [address] [place] [address] Referral ID Status Reason Start Date Expiration Date Visits Requested Visits Authorized [id number] Authorized Auto-Generat ed Referral 05/02/2024 1 1 [facility] for visit Narrative* Outpatient Procedure (Routine) - Closed Specialty Diagnoses / Procedures Referred By Contac t Referred To Contact [facility] Diagnoses Chest pain, unspecified type Procedures ECHO ECHO TTHRC R-T 2D W/WOM-MODE COMPL SPEC&COLR D Margo Selby, TECHNOLOGY EDUCATION TEACHER.[employer]ED [employer] [address] [place] [address] Fax: [facility] [address] [place] [address] Referral ID Status Reason Start Date Expiration Date V isits Requested Visits Authorized [id number] Closed Auto-Generate d Referral 12/20/2021 12/20/2022 1 1 [facility] for visit Narrative* Diagnostic Procedure Only (Routine) - Closed Specialty Diagnoses / Procedures Referred By Isak calles Referred To Contact MOLECULAR [facility] FUNCTIONAL IMAGING Diagnoses Chest pain, unspecified type Procedures NM CARDIAC PERF STRESS/PHARM MYOCARDIAL SPECT MULTIPLE STUDIES Margo Selby, TECHNOLOGY EDUCATION TEACHER.[employer]ED [employer] [address] [place] [phone] Fax: [facility] [address] [place] [phone] Referral ID Status Reason Start Date Expiration Date V isits Requested Visits Authorized [id number] Closed Auto-Generate d Referral 12/20/2021 01/19/2023 1 1 [facility] Summary Purpose Family History No Family History Records FoundNo Family History Records FoundNo Family History Records FoundNo Family History Records Found Advance Directives No Advanced Directives Records FoundDocuments on File Type Date Recorded Patient [place] [employer] Expl anation Advance Directive(s) 11/20/2020 9:17 AM Advance Directive(s) 11/05/2020 3:53 PM Advance Directive(s) 04/08/2020 7:25 AM Advance Directive(s) 04/01/2020 1:46 PM Advance Directive(s) 12/24/2019 12:57 PM Advance Directive(s) 12/10/2019 4:25 PM Advance Directive(s) 03/01/2017 10:01 AM Advance Directive(s) 04/04/2016 7:27 AM Advance Directive(s) 04/01/2016 9:13 AM Latest Code Status on File Code Status Date Activated Date Inactivated Comments Full Code 12/27/2019 6:29 PM 04/08/2020 7:26 AM Documents on File Type Date Recorded Patient [place] [employer] Expl anation Advance Directive(s) 11/20/2020 9:17 AM Advance Directive(s) 11/05/2020 3:53 PM Advance Directive(s) 04/08/2020 7:25 AM Advance Directive(s) 04/01/2020 1:46 PM Advance Directive(s) 12/24/2019 12:57 PM Advance Directive(s) 12/10/2019 4:25 PM Advance Directive(s) 03/01/2017 10:01 AM Advance Directive(s) 04/04/2016 7:27 AM Advance Directive(s) 04/01/2016 9:13 AM Latest Code Status on File Code Status Date Activated Date Inactivated Comments Full Code 12/27/2019 6:29 PM 04/08/2020 7:26 AM Documents on File Type Date Recorded Patient [place] [employer] Expl anation Advance Directive(s) 10/11/2021 5:15 PM Advance Directive(s) 11/20/2020 9:17 AM Advance Directive(s) 11/05/2020 3:53 PM Advance Directive(s) 04/08/2020 7:25 AM Advance Directive(s) 04/01/2020 1:46 PM Advance Directive(s) 12/24/2019 12:57 PM Advance Directive(s) 12/10/2019 4:25 PM Advance Directive(s) 03/01/2017 10:01 AM Advance Directive(s) 04/04/2016 7:27 AM Advance Directive(s) 04/01/2016 9:13 AM Documents on File Type Date Recorded Patient [place] [employer] Expl anation Advance Directive(s) 10/11/2021 5:15 PM Advance Directive(s) 11/20/2020 9:17 AM Advance Directive(s) 11/05/2020 3:53 PM Advance Directive(s) 04/08/2020 7:25 AM Advance Directive(s) 04/01/2020 1:46 PM Advance Directive(s) 12/24/2019 12:57 PM Advance Directive(s) 12/10/2019 4:25 PM Advance Directive(s) 03/01/2017 10:01 AM Advance Directive(s) 04/04/2016 7:27 AM Advance Directive(s) 04/01/2016 9:13 AM Latest Code Status on File Code Status Date Activated Date Inactivated Comments Full Code 09/22/2022 7:35 AM Full Code Order Discussed With: Patient Full Code 12/27/2019 6:29 PM 04/08/2020 7:26 AM Latest Code Status on File Code Status Date Activated Date Inactivated Comments Full Code 09/22/2022 7:35 AM 09/22/2022 5:58 PM Latest Code Status on File Code Status Date Activated Date Inactivated Comments Full Code 09/22/2022 7:35 AM 09/22/2022 5:58 PM Full Code 12/27/2019 6:29 PM 04/08/2020 7:26 AM Latest Code Status on File Code Status Date Activated Date Inactivated Comments Full Code 09/22/2022 7:35 AM 09/22/2022 5:58 PM Question Answer Comments Full Code Order Discussed With: Patient Code Status History Code Status Date Activated Date Inactivated Comments Full Code 12/27/2019 6:29 PM 04/08/2020 7:26 AM Latest Code Status on File Code Status Date Activated Date Inactivated Comments Full Code 09/22/2022 7:35 AM 09/22/2022 5:58 PM Question Answer Comments Full Code Order Discussed With: Patient Code Status History Code Status Date Activated Date Inactivated Comments Full Code 12/27/2019 6:29 PM 04/08/2020 7:26 AM Reason for Referral Specialty Diagnoses / Procedures Referred By Contac t Referred To Contact Hematology Diagnoses 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 Procedures CONSULT TO HEMATOLOGY OFFICE/OUTPATIENT [facility] 60-74 MINUTES Roberto Carlos Mullen MD [address] [place] [id number] Referral ID Status Reason Start Date Expiration Date Visits Requested Visits Authorized [id number] Authorized PCP Requested Referral 10/07/2021 10/07/2022 1 1 Specialty Diagnoses / Procedures Referred By Contac t Referred To Contact Endocrinology Diagnoses Hypercalcemia Procedures CONSULT TO ENDOCRINOLOGY OFFICE/OUTPATIENT [facility] 60-74 MINUTES Roberto Carlos Mullen MD [address] [place] [phone] Referral ID Status Reason Start Date Expiration Date Visits Requested Visits Authorized [id number] Authorized PCP Requested Referral 10/29/2021 10/29/2022 1 1 Specialty Diagnoses / Procedures Referred By Contac t Referred To Contact [facility] Diagnoses History of revision of total shoulder arthroplasty Procedures PT REHAB FOLLOW UP ORDER THERAPEUTIC EXERCISES RE, EA 15 MIN. Tab Wen, PT [facility] [address] [address] Referral ID Status Reason Start Date Expiration Date Visits Requested Visits Authorized [id number] Pending Review PCP Requested Referral Auto-Generate d Referral 09/29/2022 12/28/2022 1 1 Specialty Diagnoses / Procedures Referred By Contac t Referred To Contact [facility] Diagnoses Lumbar spondylosis DDD (degenerative disc disease), lumbar Procedures CONSULT TO PHYSICAL THERAPY PHYSICAL THERAPY EVALUATION HIGH COMPLEX 45 MINS Ezequiel Beyer MD [address] [facility] [place] [address] [facility] [address] [address] Referral ID Status Reason Start Date Expiration Date Visits Requested Visits Authorized [id number] Authorized PCP Requested Referral Auto-Generate d Referral 02/20/2023 02/20/2024 99 99 Specialty Diagnoses / Procedures Referred By Contac t Referred To Contact XR IMAGING Diagnoses Lumbar spondylosis DDD (degenerative disc disease), lumbar Procedures XR LUMBAR GENERAL 3V AP/LAT/L5-S1 RADEX SPINE LUMBOSACRAL 2/3 VIEWS Ezequiel Beyer MD [address] [facility] [address] Xr Imaging [place] [address] Referral ID Status Reason Start Date Expiration Date V isits Requested Visits Authorized [id number] Closed Auto-Generate d Referral 02/20/2023 03/21/2024 1 1 Specialty Diagnoses / Procedures Referred By Contac t Referred To Contact [facility] Diagnoses Lumbar spondylosis DDD (degenerative disc disease), lumbar Spondylolisthesis of lumbar region Spinal stenosis of lumbar region, unspecified whether neurogenic claudication present Procedures CONSULT TO PHYSICAL THERAPY PHYSICAL THERAPY EVALUATION HIGH COMPLEX 45 MINS Digna Sampson, TECHNOLOGY EDUCATION TEACHER.[employer]ED [employer] [address] [place] [address] [facility] [address] [address] Referral ID Status Reason Start Date Expiration Date Visits Requested Visits Authorized [id number] Authorized PCP Requested Referral Auto-Generate d Referral 02/26/2023 02/26/2024 99 99 Specialty Diagnoses / Procedures Referred By Contac t Referred To Contact General Surgery Diagnoses Change in bowel habits Procedures CONSULT TO GENERAL SURGERY OFFICE/OUTPATIENT [facility] 60-74 MINUTES Roberto Carlos Mullen MD [address] [place] [address] Referral ID Status Reason Start Date Expiration Date Visits Requested Visits Authorized [id number] Authorized PCP Requested Referral 3 04/25/2024 1 1 Specialty Diagnoses / Procedures Referred By Contac t Referred To Contact [facility] Diagnoses Bilateral carotid artery stenosis Procedures US CAROTID ARTERIES [facility] DUPLEX SCAN EXTRACRANIAL ART COMPL BI STUDY Roberto Carlos Mullen MD [address] [place] [address] [facility] [address] [place] [address] Referral ID Status Reason Start Date Expiration Date Visits Requested Visits Authorized [id number] Authorized Auto-Generat ed Referral 3 04/25/2024 1 1 Specialty Diagnoses / Procedures Referred By Contac t Referred To Contact Diagnoses Controlled type 2 diabetes mellitus without complication, without long-term current use of insulin ([facility]) Roberto Carlos Mullen MD [address] [place] [address] Referral ID Status Reason Start Date Expiration Date V isits Requested Visits Authorized [id number] Authorized 06/12/2023 06/11/2024 1 1 Additional Source Comments (unrecognized sect ion and content) No Status Records FoundNo Status Records FoundNo Status Records FoundNo Status Records Found INFORMATION SOURCE (unrecogn ized section and content) DATE CREATED AUTHOR AUTHOR'S ORGANIZ ATION 02/24/2023 [facility] DATE CREATED AUTHOR AUTHOR'S ORGANIZ ATION 07/20/2023 [facility] DATE CREATED AUTHOR AUTHOR'S ORGANIZ ATION 07/31/2023 [facility] Source Comments (unrecognize d section and content) In the event this informatio n is protected by the Federal Confidentiality of Alcohol and Drug Abuse Patient Records regulations: The Federal rules restrict any use of the information to criminally investigate or prosecute any alcohol or drug abuse patient.[facility]In the event this information is protected by the Federal Confidentiality of Alcohol and Drug Abuse Patient Records regulations: The Federal rules restrict any use of the information to criminally investigate or prosecute any alcohol or drug abuse patient.[facility] HospitalIn the event this information is protected by the Federal Confidentiality of Alcohol and Drug Abuse Patient Records regulations: The Federal rules restrict any use of the information to criminally investigate or prosecute any alcohol or drug abuse patient.[facility] HospitalIn the event this information is protected by the Federal Confidentiality of Alcohol and Drug Abuse Patient Records regulations: The Federal rules restrict any use of the information to criminally investigate or prosecute any alcohol or drug abuse patient.[facility] HospitalIn the event this information is protected by the Federal Confidentiality of Alcohol and Drug Abuse Patient Records regulations: The Federal rules restrict any use of the information to criminally investigate or prosecute any alcohol or drug abuse patient.[facility] HospitalIn the event this information is protected by the Federal Confidentiality of Alcohol and Drug Abuse Patient Records regulations: The Federal rules restrict any use of the information to criminally investigate or prosecute any alcohol or drug abuse patient.[facility] HospitalIn the event this information is protected by the Federal Confidentiality of Alcohol and Drug Abuse Patient Records regulations: The Federal rules restrict any use of the information to criminally investigate or prosecute any alcohol or drug abuse patient.[facility] HospitalIn the event this information is protected by the Federal Confidentiality of Alcohol and Drug Abuse Patient Records regulations: The Federal rules restrict any use of the information to criminally investigate or prosecute any alcohol or drug abuse patient.[facility] HospitalIn the event this information is protected by the Federal Confidentiality of Alcohol and Drug Abuse Patient Records regulations: The Federal rules restrict any use of the information to criminally investigate or prosecute any alcohol or drug abuse patient.[facility] HospitalIn the event this information is protected by the Federal Confidentiality of Alcohol and Drug Abuse Patient Records regulations: The Federal rules restrict any use of the information to criminally investigate or prosecute any alcohol or drug abuse patient.[facility] HospitalIn the event this information is protected by the Federal Confidentiality of Alcohol and Drug Abuse Patient Records regulations: The Federal rules restrict any use of the information to criminally investigate or prosecute any alcohol or drug abuse patient.[facility] HospitalIn the event this information is protected by the Federal Confidentiality of Alcohol and Drug Abuse Patient Records regulations: The Federal rules restrict any use of the information to criminally investigate or prosecute any alcohol or drug abuse patient.[facility] HospitalIn the event this information is protected by the Federal Confidentiality of Alcohol and Drug Abuse Patient Records regulations: The Federal rules restrict any use of the information to criminally investigate or prosecute any alcohol or drug abuse patient.[facility] HospitalIn the event this information is protected by the Federal Confidentiality of Alcohol and Drug Abuse Patient Records regulations: The Federal rules restrict any use of the information to criminally investigate or prosecute any alcohol or drug abuse patient.[facility] HospitalIn the event this information is protected by the Federal Confidentiality of Alcohol and Drug Abuse Patient Records regulations: The Federal rules restrict any use of the information to criminally investigate or prosecute any alcohol or drug abuse patient.[facility] HospitalIn the event this information is protected by the Federal Confidentiality of Alcohol and Drug Abuse Patient Records regulations: The Federal rules restrict any use of the information to criminally investigate or prosecute any alcohol or drug abuse patient.[facility] HospitalIn the event this information is protected by the Federal Confidentiality of Alcohol and Drug Abuse Patient Records regulations: The Federal rules restrict any use of the information to criminally investigate or prosecute any alcohol or drug abuse patient.[facility] HospitalIn the event this information is protected by the Federal Confidentiality of Alcohol and Drug Abuse Patient Records regulations: The Federal rules restrict any use of the information to criminally investigate or prosecute any alcohol or drug abuse patient.[facility] HospitalIn the event this information is protected by the Federal Confidentiality of Alcohol and Drug Abuse Patient Records regulations: The Federal rules restrict any use of the information to criminally investigate or prosecute any alcohol or drug abuse patient.[facility] HospitalIn the event this information is protected by the Federal Confidentiality of Alcohol and Drug Abuse Patient Records regulations: The Federal rules restrict any use of the information to criminally investigate or prosecute any alcohol or drug abuse patient.[facility] HospitalIn the event this information is protected by the Federal Confidentiality of Alcohol and Drug Abuse Patient Records regulations: The Federal rules restrict any use of the information to criminally investigate or prosecute any alcohol or drug abuse patient.[facility] HospitalIn the event this information is protected by the Federal Confidentiality of Alcohol and Drug Abuse Patient Records regulations: The Federal rules restrict any use of the information to criminally investigate or prosecute any alcohol or drug abuse patient.[facility] HospitalIn the event this information is protected by the Federal Confidentiality of Alcohol and Drug Abuse Patient Records regulations: The Federal rules restrict any use of the information to criminally investigate or prosecute any alcohol or drug abuse patient.[facility] HospitalIn the event this information is protected by the Federal Confidentiality of Alcohol and Drug Abuse Patient Records regulations: The Federal rules restrict any use of the information to criminally investigate or prosecute any alcohol or drug abuse patient.[facility] HospitalIn the event this information is protected by the Federal Confidentiality of Alcohol and Drug Abuse Patient Records regulations: The Federal rules restrict any use of the information to criminally investigate or prosecute any alcohol or drug abuse patient.[facility] HospitalIn the event this information is protected by the Federal Confidentiality of Alcohol and Drug Abuse Patient Records regulations: The Federal rules restrict any use of the information to criminally investigate or prosecute any alcohol or drug abuse patient.[facility] HospitalIn the event this information is protected by the Federal Confidentiality of Alcohol and Drug Abuse Patient Records regulations: The Federal rules restrict any use of the information to criminally investigate or prosecute any alcohol or drug abuse patient.[facility] HospitalIn the event this information is protected by the Federal Confidentiality of Alcohol and Drug Abuse Patient Records regulations: The Federal rules restrict any use of the information to criminally investigate or prosecute any alcohol or drug abuse patient.[facility] HospitalIn the event this information is protected by the Federal Confidentiality of Alcohol and Drug Abuse Patient Records regulations: The Federal rules restrict any use of the information to criminally investigate or prosecute any alcohol or drug abuse patient.[facility] HospitalIn the event this information is protected by the Federal Confidentiality of Alcohol and Drug Abuse Patient Records regulations: The Federal rules restrict any use of the information to criminally investigate or prosecute any alcohol or drug abuse patient.[facility] HospitalIn the event this information is protected by the Federal Confidentiality of Alcohol and Drug Abuse Patient Records regulations: The Federal rules restrict any use of the information to criminally investigate or prosecute any alcohol or drug abuse patient.[facility] HospitalIn the event this information is protected by the Federal Confidentiality of Alcohol and Drug Abuse Patient Records regulations: The Federal rules restrict any use of the information to criminally investigate or prosecute any alcohol or drug abuse patient.[facility] HospitalIn the event this information is protected by the Federal Confidentiality of Alcohol and Drug Abuse Patient Records regulations: The Federal rules restrict any use of the information to criminally investigate or prosecute any alcohol or drug abuse patient.[facility] HospitalIn the event this information is protected by the Federal Confidentiality of Alcohol and Drug Abuse Patient Records regulations: The Federal rules restrict any use of the information to criminally investigate or prosecute any alcohol or drug abuse patient.[facility] HospitalIn the event this information is protected by the Federal Confidentiality of Alcohol and Drug Abuse Patient Records regulations: The Federal rules restrict any use of the information to criminally investigate or prosecute any alcohol or drug abuse patient.[facility] HospitalIn the event this information is protected by the Federal Confidentiality of Alcohol and Drug Abuse Patient Records regulations: The Federal rules restrict any use of the information to criminally investigate or prosecute any alcohol or drug abuse patient.[facility] HospitalIn the event this information is protected by the Federal Confidentiality of Alcohol and Drug Abuse Patient Records regulations: The Federal rules restrict any use of the information to criminally investigate or prosecute any alcohol or drug abuse patient.[facility] HospitalIn the event this information is protected by the Federal Confidentiality of Alcohol and Drug Abuse Patient Records regulations: The Federal rules restrict any use of the information to criminally investigate or prosecute any alcohol or drug abuse patient.[facility] HospitalIn the event this information is protected by the Federal Confidentiality of Alcohol and Drug Abuse Patient Records regulations: The Federal rules restrict any use of the information to criminally investigate or prosecute any alcohol or drug abuse patient.[facility] HospitalIn the event this information is protected by the Federal Confidentiality of Alcohol and Drug Abuse Patient Records regulations: The Federal rules restrict any use of the information to criminally investigate or prosecute any alcohol or drug abuse patient.[facility] HospitalIn the event this information is protected by the Federal Confidentiality of Alcohol and Drug Abuse Patient Records regulations: The Federal rules restrict any use of the information to criminally investigate or prosecute any alcohol or drug abuse patient.[facility] HospitalIn the event this information is protected by the Federal Confidentiality of Alcohol and Drug Abuse Patient Records regulations: The Federal rules restrict any use of the information to criminally investigate or prosecute any alcohol or drug abuse patient.[facility] HospitalIn the event this information is protected by the Federal Confidentiality of Alcohol and Drug Abuse Patient Records regulations: The Federal rules restrict any use of the information to criminally investigate or prosecute any alcohol or drug abuse patient.[facility] HospitalIn the event this information is protected by the Federal Confidentiality of Alcohol and Drug Abuse Patient Records regulations: The Federal rules restrict any use of the information to criminally investigate or prosecute any alcohol or drug abuse patient.[facility] HospitalIn the event this information is protected by the Federal Confidentiality of Alcohol and Drug Abuse Patient Records regulations: The Federal rules restrict any use of the information to criminally investigate or prosecute any alcohol or drug abuse patient.[facility] HospitalIn the event this information is protected by the Federal Confidentiality of Alcohol and Drug Abuse Patient Records regulations: The Federal rules restrict any use of the information to criminally investigate or prosecute any alcohol or drug abuse patient.[facility] HospitalIn the event this information is protected by the Federal Confidentiality of Alcohol and Drug Abuse Patient Records regulations: The Federal rules restrict any use of the information to criminally investigate or prosecute any alcohol or drug abuse patient.[facility] HospitalIn the event this information is protected by the Federal Confidentiality of Alcohol and Drug Abuse Patient Records regulations: The Federal rules restrict any use of the information to criminally investigate or prosecute any alcohol or drug abuse patient.[facility] HospitalIn the event this information is protected by the Federal Confidentiality of Alcohol and Drug Abuse Patient Records regulations: The Federal rules restrict any use of the information to criminally investigate or prosecute any alcohol or drug abuse patient.[facility] HospitalIn the event this information is protected by the Federal Confidentiality of Alcohol and Drug Abuse Patient Records regulations: The Federal rules restrict any use of the information to criminally investigate or prosecute any alcohol or drug abuse patient.[facility] HospitalIn the event this information is protected by the Federal Confidentiality of Alcohol and Drug Abuse Patient Records regulations: The Federal rules restrict any use of the information to criminally investigate or prosecute any alcohol or drug abuse patient.[facility] HospitalIn the event this information is protected by the Federal Confidentiality of Alcohol and Drug Abuse Patient Records regulations: The Federal rules restrict any use of the information to criminally investigate or prosecute any alcohol or drug abuse patient.[facility] HospitalIn the event this information is protected by the Federal Confidentiality of Alcohol and Drug Abuse Patient Records regulations: The Federal rules restrict any use of the information to criminally investigate or prosecute any alcohol or drug abuse patient.[facility] HospitalIn the event this information is protected by the Federal Confidentiality of Alcohol and Drug Abuse Patient Records regulations: The Federal rules restrict any use of the information to criminally investigate or prosecute any alcohol or drug abuse patient.[facility] HospitalIn the event this information is protected by the Federal Confidentiality of Alcohol and Drug Abuse Patient Records regulations: The Federal rules restrict any use of the information to criminally investigate or prosecute any alcohol or drug abuse patient.[facility] HospitalIn the event this information is protected by the Federal Confidentiality of Alcohol and Drug Abuse Patient Records regulations: The Federal rules restrict any use of the information to criminally investigate or prosecute any alcohol or drug abuse patient.[facility] HospitalIn the event this information is protected by the Federal Confidentiality of Alcohol and Drug Abuse Patient Records regulations: The Federal rules restrict any use of the information to criminally investigate or prosecute any alcohol or drug abuse patient.[facility] HospitalIn the event this information is protected by the Federal Confidentiality of Alcohol and Drug Abuse Patient Records regulations: The Federal rules restrict any use of the information to criminally investigate or prosecute any alcohol or drug abuse patient.[facility] HospitalIn the event this information is protected by the Federal Confidentiality of Alcohol and Drug Abuse Patient Records regulations: The Federal rules restrict any use of the information to criminally investigate or prosecute any alcohol or drug abuse patient.[facility] HospitalIn the event this information is protected by the Federal Confidentiality of Alcohol and Drug Abuse Patient Records regulations: The Federal rules restrict any use of the information to criminally investigate or prosecute any alcohol or drug abuse patient.[facility] HospitalIn the event this information is protected by the Federal Confidentiality of Alcohol and Drug Abuse Patient Records regulations: The Federal rules restrict any use of the information to criminally investigate or prosecute any alcohol or drug abuse patient.[facility] HospitalIn the event this information is protected by the Federal Confidentiality of Alcohol and Drug Abuse Patient Records regulations: The Federal rules restrict any use of the information to criminally investigate or prosecute any alcohol or drug abuse patient.[facility] HospitalIn the event this information is protected by the Federal Confidentiality of Alcohol and Drug Abuse Patient Records regulations: The Federal rules restrict any use of the information to criminally investigate or prosecute any alcohol or drug abuse patient.[facility] HospitalIn the event this information is protected by the Federal Confidentiality of Alcohol and Drug Abuse Patient Records regulations: The Federal rules restrict any use of the information to criminally investigate or prosecute any alcohol or drug abuse patient.[facility] HospitalIn the event this information is protected by the Federal Confidentiality of Alcohol and Drug Abuse Patient Records regulations: The Federal rules restrict any use of the information to criminally investigate or prosecute any alcohol or drug abuse patient.[facility] HospitalIn the event this information is protected by the Federal Confidentiality of Alcohol and Drug Abuse Patient Records regulations: The Federal rules restrict any use of the information to criminally investigate or prosecute any alcohol or drug abuse patient.[facility] HospitalIn the event this information is protected by the Federal Confidentiality of Alcohol and Drug Abuse Patient Records regulations: The Federal rules restrict any use of the information to criminally investigate or prosecute any alcohol or drug abuse patient.[facility] HospitalIn the event this information is protected by the Federal Confidentiality of Alcohol and Drug Abuse Patient Records regulations: The Federal rules restrict any use of the information to criminally investigate or prosecute any alcohol or drug abuse patient.[facility] HospitalIn the event this information is protected by the Federal Confidentiality of Alcohol and Drug Abuse Patient Records regulations: The Federal rules restrict any use of the information to criminally investigate or prosecute any alcohol or drug abuse patient.[facility] HospitalIn the event this information is protected by the Federal Confidentiality of Alcohol and Drug Abuse Patient Records regulations: The Federal rules restrict any use of the information to criminally investigate or prosecute any alcohol or drug abuse patient.[facility] HospitalIn the event this information is protected by the Federal Confidentiality of Alcohol and Drug Abuse Patient Records regulations: The Federal rules restrict any use of the information to criminally investigate or prosecute any alcohol or drug abuse patient.[facility] HospitalIn the event this information is protected by the Federal Confidentiality of Alcohol and Drug Abuse Patient Records regulations: The Federal rules restrict any use of the information to criminally investigate or prosecute any alcohol or drug abuse patient.[facility] HospitalIn the event this information is protected by the Federal Confidentiality of Alcohol and Drug Abuse Patient Records regulations: The Federal rules restrict any use of the information to criminally investigate or prosecute any alcohol or drug abuse patient.[facility] HospitalIn the event this information is protected by the Federal Confidentiality of Alcohol and Drug Abuse Patient Records regulations: The Federal rules restrict any use of the information to criminally investigate or prosecute any alcohol or drug abuse patient.[facility] HospitalIn the event this information is protected by the Federal Confidentiality of Alcohol and Drug Abuse Patient Records regulations: The Federal rules restrict any use of the information to criminally investigate or prosecute any alcohol or drug abuse patient.[facility] HospitalIn the event this information is protected by the Federal Confidentiality of Alcohol and Drug Abuse Patient Records regulations: The Federal rules restrict any use of the information to criminally investigate or prosecute any alcohol or drug abuse patient.[facility] HospitalIn the event this information is protected by the Federal Confidentiality of Alcohol and Drug Abuse Patient Records regulations: The Federal rules restrict any use of the information to criminally investigate or prosecute any alcohol or drug abuse patient.[facility] HospitalIn the event this information is protected by the Federal Confidentiality of Alcohol and Drug Abuse Patient Records regulations: The Federal rules restrict any use of the information to criminally investigate or prosecute any alcohol or drug abuse patient.[facility] HospitalIn the event this information is protected by the Federal Confidentiality of Alcohol and Drug Abuse Patient Records regulations: The Federal rules restrict any use of the information to criminally investigate or prosecute any alcohol or drug abuse patient.[facility] HospitalIn the event this information is protected by the Federal Confidentiality of Alcohol and Drug Abuse Patient Records regulations: The Federal rules restrict any use of the information to criminally investigate or prosecute any alcohol or drug abuse patient.[facility] HospitalIn the event this information is protected by the Federal Confidentiality of Alcohol and Drug Abuse Patient Records regulations: The Federal rules restrict any use of the information to criminally investigate or prosecute any alcohol or drug abuse patient.[facility] HospitalIn the event this information is protected by the Federal Confidentiality of Alcohol and Drug Abuse Patient Records regulations: The Federal rules restrict any use of the information to criminally investigate or prosecute any alcohol or drug abuse patient.[facility] HospitalIn the event this information is protected by the Federal Confidentiality of Alcohol and Drug Abuse Patient Records regulations: The Federal rules restrict any use of the information to criminally investigate or prosecute any alcohol or drug abuse patient.[facility] HospitalIn the event this information is protected by the Federal Confidentiality of Alcohol and Drug Abuse Patient Records regulations: The Federal rules restrict any use of the information to criminally investigate or prosecute any alcohol or drug abuse patient.[facility] HospitalIn the event this information is protected by the Federal Confidentiality of Alcohol and Drug Abuse Patient Records regulations: The Federal rules restrict any use of the information to criminally investigate or prosecute any alcohol or drug abuse patient.[facility] HospitalIn the event this information is protected by the Federal Confidentiality of Alcohol and Drug Abuse Patient Records regulations: The Federal rules restrict any use of the information to criminally investigate or prosecute any alcohol or drug abuse patient.[facility] HospitalIn the event this information is protected by the Federal Confidentiality of Alcohol and Drug Abuse Patient Records regulations: The Federal rules restrict any use of the information to criminally investigate or prosecute any alcohol or drug abuse patient.[facility] HospitalIn the event this information is protected by the Federal Confidentiality of Alcohol and Drug Abuse Patient Records regulations: The Federal rules restrict any use of the information to criminally investigate or prosecute any alcohol or drug abuse patient.[facility] HospitalIn the event this information is protected by the Federal Confidentiality of Alcohol and Drug Abuse Patient Records regulations: The Federal rules restrict any use of the information to criminally investigate or prosecute any alcohol or drug abuse patient.[facility] HospitalIn the event this information is protected by the Federal Confidentiality of Alcohol and Drug Abuse Patient Records regulations: The Federal rules restrict any use of the information to criminally investigate or prosecute any alcohol or drug abuse patient.[facility] HospitalIn the event this information is protected by the Federal Confidentiality of Alcohol and Drug Abuse Patient Records regulations: The Federal rules restrict any use of the information to criminally investigate or prosecute any alcohol or drug abuse patient.[facility] HospitalIn the event this information is protected by the Federal Confidentiality of Alcohol and Drug Abuse Patient Records regulations: The Federal rules restrict any use of the information to criminally investigate or prosecute any alcohol or drug abuse patient.[facility] HospitalIn the event this information is protected by the Federal Confidentiality of Alcohol and Drug Abuse Patient Records regulations: The Federal rules restrict any use of the information to criminally investigate or prosecute any alcohol or drug abuse patient.[facility] HospitalIn the event this information is protected by the Federal Confidentiality of Alcohol and Drug Abuse Patient Records regulations: The Federal rules restrict any use of the information to criminally investigate or prosecute any alcohol or drug abuse patient.[facility] HospitalIn the event this information is protected by the Federal Confidentiality of Alcohol and Drug Abuse Patient Records regulations: The Federal rules restrict any use of the information to criminally investigate or prosecute any alcohol or drug abuse patient.[facility] HospitalIn the event this information is protected by the Federal Confidentiality of Alcohol and Drug Abuse Patient Records regulations: The Federal rules restrict any use of the information to criminally investigate or prosecute any alcohol or drug abuse patient.[facility] HospitalIn the event this information is protected by the Federal Confidentiality of Alcohol and Drug Abuse Patient Records regulations: The Federal rules restrict any use of the information to criminally investigate or prosecute any alcohol or drug abuse patient.[facility] HospitalIn the event this information is protected by the Federal Confidentiality of Alcohol and Drug Abuse Patient Records regulations: The Federal rules restrict any use of the information to criminally investigate or prosecute any alcohol or drug abuse patient.[facility] HospitalIn the event this information is protected by the Federal Confidentiality of Alcohol and Drug Abuse Patient Records regulations: The Federal rules restrict any use of the information to criminally investigate or prosecute any alcohol or drug abuse patient.[facility] HospitalIn the event this information is protected by the Federal Confidentiality of Alcohol and Drug Abuse Patient Records regulations: The Federal rules restrict any use of the information to criminally investigate or prosecute any alcohol or drug abuse patient.[facility] HospitalIn the event this information is protected by the Federal Confidentiality of Alcohol and Drug Abuse Patient Records regulations: The Federal rules restrict any use of the information to criminally investigate or prosecute any alcohol or drug abuse patient.[facility] HospitalIn the event this information is protected by the Federal Confidentiality of Alcohol and Drug Abuse Patient Records regulations: The Federal rules restrict any use of the information to criminally investigate or prosecute any alcohol or drug abuse patient.[facility] HospitalIn the event this information is protected by the Federal Confidentiality of Alcohol and Drug Abuse Patient Records regulations: The Federal rules restrict any use of the information to criminally investigate or prosecute any alcohol or drug abuse patient.[facility] HospitalIn the event this information is protected by the Federal Confidentiality of Alcohol and Drug Abuse Patient Records regulations: The Federal rules restrict any use of the information to criminally investigate or prosecute any alcohol or drug abuse patient.[facility] HospitalIn the event this information is protected by the Federal Confidentiality of Alcohol and Drug Abuse Patient Records regulations: The Federal rules restrict any use of the information to criminally investigate or prosecute any alcohol or drug abuse patient.[facility] HospitalIn the event this information is protected by the Federal Confidentiality of Alcohol and Drug Abuse Patient Records regulations: The Federal rules restrict any use of the information to criminally investigate or prosecute any alcohol or drug abuse patient.[facility] HospitalIn the event this information is protected by the Federal Confidentiality of Alcohol and Drug Abuse Patient Records regulations: The Federal rules restrict any use of the information to criminally investigate or prosecute any alcohol or drug abuse patient.[facility] HospitalIn the event this information is protected by the Federal Confidentiality of Alcohol and Drug Abuse Patient Records regulations: The Federal rules restrict any use of the information to criminally investigate or prosecute any alcohol or drug abuse patient.[facility] HospitalIn the event this information is protected by the Federal Confidentiality of Alcohol and Drug Abuse Patient Records regulations: The Federal rules restrict any use of the information to criminally investigate or prosecute any alcohol or drug abuse patient.[facility] HospitalIn the event this information is protected by the Federal Confidentiality of Alcohol and Drug Abuse Patient Records regulations: The Federal rules restrict any use of the information to criminally investigate or prosecute any alcohol or drug abuse patient.[facility] Reason for Visit (unrecogniz ed section and content) Specialty Diagnoses / Procedures Referred By Contac t Referred To Contact [facility] Diagnoses Lumbar spondylosis DDD (degenerative disc disease), lumbar Procedures CONSULT TO PHYSICAL THERAPY PHYSICAL THERAPY EVALUATION HIGH COMPLEX 45 MINS Ezequiel Beyer MD [address] [facility] [place] [address] [facility] [address] [address] Referral ID Status Reason Start Date Expiration Date Visits Requested Visits Authorized [id number] Authorized PCP Requested Referral Auto-Generate d Referral 02/20/2023 02/20/2024 99 99 Reason Comments Physical Therapy Reason Comments PT Eval Specialty Diagnoses / Procedures Referred By Contac t Referred To Contact Physical Therapy / PHYSICAL THERAPY Diagnoses post op shoulder consult Procedures NEW RS PT ORTH DESIREE Bales, Viry Dia MD [address] [facility] [place] [address] Tab Wen PT Referral ID Status Reason Start Date Expiration Date V isits Requested Visits Authorized [id number] Authorized 06/12/2022 06/11/2023 99 99 Reason Comments Follow Up Established Patient Specialty Diagnoses / Procedures Referred By Contac t Referred To Contact Endocrinology Diagnoses Hypercalcemia Procedures CONSULT TO ENDOCRINOLOGY OFFICE/OUTPATIENT NEW HIGH MDM 60-74 MINUTES Roberto Carlos Mullen MD [address] [place] [address] Referral ID Status Reason Start Date Expiration Date V isits Requested Visits Authorized [id number] Closed PCP Requested Referral 10/29/2021 10/29/2022 1 1 Specialty Diagnoses / Procedures Referred By Contac t Referred To Contact Physical Therapy Diagnoses Lumbosacral spondylosis with radiculopathy Procedures CONSULT TO PHYSICAL THERAPY Elsi Gallagher PA-C [address] [place] [address] Referral ID Status Reason Start Date Expiration Date V isits Requested Visits Authorized [id number] Authorized 01/31/2022 05/01/2022 99 99 Reason Comments Follow Up Reason Onset Date Comments Refill Request 09/10/2021 Reason Onset Date Comments Refill Request 09/17/2021 Reason Comments Diabetic Foot Care NailCare Reason Comments Results Reason Comments New Patient Specialty Diagnoses / Procedures Referred By Contac t Referred To Contact Hematology Diagnoses 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 Procedures CONSULT TO HEMATOLOGY OFFICE/OUTPATIENT [facility] MDM 60-74 MINUTES Roberto Carlos Mullen MD [address] [place] [address] Referral ID Status Reason Start Date Expiration Date V isits Requested Visits Authorized [id number] Closed PCP Requested Referral 10/07/2021 10/07/2022 1 1 Reason Comments Results Reason Onset Date Comments Refill Request 11/10/2021 Reason Comments New Patient Hypercalcemia Specialty Diagnoses / Procedures Referred By Contac t Referred To Contact Endocrinology Diagnoses Hypercalcemia Procedures CONSULT TO ENDOCRINOLOGY OFFICE/OUTPATIENT NEW HIGH MDM 60-74 MINUTES Roberto Carlos Mullen MD [address] [place] [address] Reason Comments Pain Injection Followup Reason Onset Date Comments Refill Request 11/29/2021 Reason Comments Patient Update Reason Comments Request Outside Medical Records Reason Comments Change In Bowel Habits Constipation Align probiodic havi ng a BM every 2 days Diarrhea happens once or twic e weekly Specialty Diagnoses / Procedures Referred By Isak t Referred To Contact Gastroenterology Diagnoses Change in bowel function Procedures CONSULT TO GASTROENTEROLOGY OFFICE/OUTPATIENT NEW HIGH MDM 60-74 MINUTES Roberto Carlos Mullen MD [address] [place] [address] Referral ID Status Reason Start Date Expiration Date V isits Requested Visits Authorized [id number] Closed PCP Requested Referral 09/02/2021 09/02/2022 1 1 Reason Comments Derm Problem Reason Comments Established Patient Follow Up Diabetic Foot Care Reason Comments Pain Last seen 08/17/20 Rig ht rotator cuff tear with injection given Established Patient Last seen 08/17/20 Rig ht rotator cuff tear with injection given Reason Comments Medication Update Reason Onset Date Comments Refill Request 02/14/2022 Reason Comments Radiology NM Specialty Diagnoses / Procedures Referred By Isak t Referred To Contact MOLECULAR & FUNCTIONAL IMAGING Diagnoses Chest pain, unspecified type Procedures NM CARDIAC PERF STRESS/PHARM MYOCARDIAL SPECT MULTIPLE STUDIES Margo Selby E, TECHNOLOGY EDUCATION TEACHER.PRINTED CIRCUIT BOARD PCB DRAFTSMAN [address] [facility] [address] [place] [address] Molecular & Functional Imaging [address] [place] [address] Referral ID Status Reason Start Date Expiration Date V isits Requested Visits Authorized [id number] Closed Auto-Generate d Referral 12/20/2021 01/19/2023 1 1 Reason Comments Covid19 Concern Reason Onset Date Comments Refill Request 03/27/2022 Reason Onset Date Comments Refill Request 04/03/2022 Reason Comments requesting medical records Reason Onset Date Comments Refill Request 04/17/2022 Reason Comments Orders Reason Comments 6 Month Exam Reason Comments New Patient Pain Reason Onset Date Comments Refill Request 06/09/2022 Reason Onset Date Comments Refill Request 07/10/2022 Reason Onset Date Comments Refill Request 07/29/2022 Reason Comments Pre-Op Exam R reverse total shou lder; 09/20/22 Dr. Bales @ [facility] Reason Onset Date Comments Refill Request 09/03/2022 Reason Onset Date Comments Refill Request 09/10/2022 Reason Comments Established Patient Reason Comments Consult Reason Onset Date Comments Refill Request 09/29/2022 Reason Comments PT Eval Specialty Diagnoses / Procedures Referred By Isak calles Referred To Contact Physical Therapy / PHYSICAL THERAPY Diagnoses post op shoulder consult Procedures NEW RS PT ORTH DESIREE Bales, Viry Dia MD [address] [facility] [facility] [address] [place] [address] Tab Wen, MELLY Reason Comments Established Patient Follow Up Post Op Wound Check Reason Onset Date Comments Population Health Navigation Outreach 10/03/2022 [facility] Reason Comments Medication Problem Torres told Alem calles hat medicare is doing an audit blood sugar test. Spoke to Juliocesar Aguilar, confirmed refill has been sent to the [facility]. It could take up to 2 months to get the test strip. Juliocesar aguilar suggested a new RX could be sent to [facility] or [facility]. Spoke to Alem explained information. He will check with health insurance . He will call back if wants a new RX sent to new pharmacy. Reason Onset Date Comments Refill Request 10/06/2022 Reason Comments Post Op Reason Onset Date Comments Refill Request 10/07/2022 Reason Comments Fatigue Reason Comments Forms Dm supplies Reason Comments Post Op Pain Reason Comments Low Back Pain Reason Comments Follow Up Reason Comments Consult Change in bowel habi ts, last colonoscopy 2016 Specialty Diagnoses / Procedures Referred By Isak calles Referred To Contact General Surgery Diagnoses Change in bowel habits Procedures CONSULT TO GENERAL SURGERY OFFICE/OUTPATIENT [facility] MDM 60-74 MINUTES Roberto Carlos Mullen MD [address] [place] [address] Referral ID Status Reason Start Date Expiration Date V isits Requested Visits Authorized [id number] Closed PCP Requested Referral 04/26/2023 04/25/2024 1 1 Reason Comments Established Patient nail care Reason Comments Insurance Authorization Care Teams (unrecognized sec tion and content) Sand Mill Operator Core Sand Relationship Specialty Start Date End Date Roberto Carlos Mullen MD [address] [place] [address] PCP - General Family Practice 09/01/14 Dina Lilly RN 11/18/14 Francisco Javier Malik MD [address] [place] [address] Referring Orthopedics 12/26/19 Francisco Javier Malik MD [address] [place] [address] Home Care Physician Orthopedics 12/26/19 Nai Deng, PT [address] [place] [address] Labor Gang Supervisor Post Acute Care 12/26/19 Sand Mill Operator Core Sand Relationship Specialty Start Date End Date Roberto Carlos Mullen MD [address] [facility] [place] [address] PCP - General Family Practice 09/01/14 Dina Lilly RN 11/18/14 Francisco Javier Malik MD [address] [place] [address] Referring Orthopedics 12/26/19 Francisco Javier Malik MD [address] [place] [address] Home Care Physician Orthopedics 12/26/19 Nai Deng, PT [address] [place] [address] Labor Gang Supervisor Post Acute Care 12/26/19 Sand Mill Operator Core Sand Relationship Specialty Start Date End Date Roberto Carlos Mullen MD [address] [facility] [address] PCP - General Family Practice 09/01/14 Dina Lilly RN 11/18/14 Francisco Javier Malik MD [address] [place] [address] Referring Orthopedics 12/26/19 Francisco Javier Malik MD [address] [place] [address] Home Care Physician Orthopedics 12/26/19 Nai Deng, PT [address] [place] [address] Labor Gang Supervisor Post Acute Care 12/26/19 Sand Mill Operator Core Sand Relationship Specialty Start Date End Date Roberto Carlos Mullen MD [address] [facility] [address] PCP - General Family Practice 09/01/14 Dina Lilly, IGLESIA 11/18/14 Francisco Javier Malik MD [address] [facility] [place] [address] Referring Orthopedics 12/26/19 Francisco Javier Malik MD [address] [facility] [place] [address] Home Care Physician Orthopedics 12/26/19 Nai Deng, PT [address] [place] [address] Labor Gang Supervisor Post Acute Care 12/26/19 Sand Mill Operator Core Sand Relationship Specialty Start Date End Date Roberto Carlos Mullen MD [address] [facility] [address] PCP - General Family Practice 09/01/14 Dina Lilly RN 11/18/14 Francisco Javier Malik MD [address] [facility] [address] Referring Orthopedics 12/26/19 Francisco Javier Malik MD [address] [place] [address] Home Care Physician Orthopedics 12/26/19 Nai Deng, PT [address] [place] [address] Labor Gang Supervisor Post Acute Care 12/26/19 Sand Mill Operator Core Sand Relationship Specialty Start Date End Date Roberto Carlos Mullen MD [address] [facility] [address] PCP - General Family Practice 09/01/14 Dina Lilly RN 11/18/14 Francisco Javier Malik MD [address] [facility] [place] [address] Referring Orthopedics 12/26/19 Francisco Javier Malik MD [address] [facility] [place] [address] Home Care Physician Orthopedics 12/26/19 Nai Deng, PT [address] [place] [address] Labor Gang Supervisor Post Acute Care 12/26/19 Sand Mill Operator Core Sand Relationship Specialty Start Date End Date Roberto Carlos Mullen MD [address] [facility] [address] PCP - General Family Practice 09/01/14 Dina Lilly RN 11/18/14 Francisco Javier Malik MD [address] [place] [address] Referring Orthopedics 12/26/19 Francisco Javier Malik MD [address] [facility] [place] [address] Home Care Physician Orthopedics 12/26/19 Nai Deng, PT [address] [place] [address] Labor Gang Supervisor Post Acute Care 12/26/19 Sand Mill Operator Core Sand Relationship Specialty Start Date End Date Roberto Carlos Mullen MD [address] [facility] [address] PCP - General Family Practice 09/01/14 Dina Lilly RN 11/18/14 Francisco Javier Malik MD [address] [facility] [place] [address] Referring Orthopedics 12/26/19 Francisco Javier Malik MD [address] [facility] [place] [address] Home Care Physician Orthopedics 12/26/19 Nai Dneg, PT [address] [place] [address] Labor Gang Supervisor Post Acute Care 12/26/19 Sand Mill Operator Core Sand Relationship Specialty Start Date End Date Roberto Carlos Mullen MD [address] [place] [address] PCP - General Family Practice 09/01/14 Dina Lilly RN 11/18/14 Francisco Javier Malik MD [address] [facility] [place] [address] Referring Orthopedics 12/26/19 Francisco Javier Malik MD [address] [facility] [place] [address] Home Care Physician Orthopedics 12/26/19 Nai Deng, PT [address] [place] [address] Labor Gang Supervisor Post Acute Care 12/26/19 Sand Mill Operator Core Sand Relationship Specialty Start Date End Date Roberto Carlos Mullen MD [address] [facility] [address] PCP - General Family Practice 09/01/14 Dina Lilly RN 11/18/14 Francisco Javier Malik MD [address] [facility] [place] [address] Referring Orthopedics 12/26/19 Francisco Javier Malik MD [address] [place] [address] Home Care Physician Orthopedics 12/26/19 Nai Deng, PT [address] [place] [address] Labor Gang Supervisor Post Acute Care 12/26/19 Sand Mill Operator Core Sand Relationship Specialty Start Date End Date Roberto Carlos Mullen MD [address] [facility] [address] PCP - General Family Practice 09/01/14 Dina Lilly RN 11/18/14 Francisco Javier Malik MD [address] [facility] [place] [address] Referring Orthopedics 12/26/19 Francisco Javier Malik MD [address] [facility] [place] [address] Home Care Physician Orthopedics 12/26/19 Nai Deng, PT [address] [facility] [place] [address] Labor Gang Supervisor Post Acute Care 12/26/19 Sand Mill Operator Core Sand Relationship Specialty Start Date End Date Roberto Carlos Mullen MD [address] [facility] [address] PCP - General Family Practice 09/01/14 Dina Lilly RN 11/18/14 Francisco Javier Malik MD [address] [facility] [place] [address] Referring Orthopedics 12/26/19 Francisco Javier Malik MD [address] [address] Home Care Physician Orthopedics 12/26/19 Nai Deng, PT [address] [place] [address] Labor Gang Supervisor Post Acute Care 12/26/19 Sand Mill Operator Core Sand Relationship Specialty Start Date End Date Roberto Carlos Mullen MD [address] [place] [address] PCP - General Family Practice 09/01/14 Dina Lilly, RN 11/18/14 Francisco Javier Malik MD [address] [place] [address] Referring Orthopedics 12/26/19 Francisco Javier Malik MD [address] [facility] [address] Home Care Physician Orthopedics 12/26/19 Nai Deng, PT [address] [place] [address] Labor Gang Supervisor Post Acute Care 12/26/19 Sand Mill Operator Core Sand Relationship Specialty Start Date End Date Roberto Carlos Mullen MD [address] [place] [address] PCP - General Family Practice 09/01/14 Dina Lilly RN 11/18/14 Francisco Javier Malik MD [address] [facility] [address] Referring Orthopedics 12/26/19 Francisco Javier Malik MD [address] [facility] [address] Home Care Physician Orthopedics 12/26/19 Nai Deng, PT [address] [place], [place] [address] Labor Gang Supervisor Post Acute Care 12/26/19 Sand Mill Operator Core Sand Relationship Specialty Start Date End Date Roberto Carlos Mullen MD [address] [place] [address] PCP - General Family Practice 09/01/14 Dina Lilly RN 11/18/14 Francisco Javier Malik MD [address] [facility] [place] [address] Referring Orthopedics 12/26/19 Francisco Javier Malik MD [address] [facility] [place] [address] Home Care Physician Orthopedics 12/26/19 Nai Deng, PT [address] [place] [address] Labor Gang Supervisor Post Acute Care 12/26/19 Sand Mill Operator Core Sand Relationship Specialty Start Date End Date Roberto Carlos Mullen MD [address] [facility] [address] PCP - General Family Practice 09/01/14 Dina Lilly RN 11/18/14 Francisco Javier Malik MD [address] [place] [address] Referring Orthopedics 12/26/19 Francisco Javier Malik MD [address] [facility] [address] Home Care Physician Orthopedics 12/26/19 Nai Deng, PT [address] [place] [address] Labor Gang Supervisor Post Acute Care 12/26/19 Sand Mill Operator Core Sand Relationship Specialty Start Date End Date Roberto Carlos Mullen MD [address] [facility] [address] PCP - General Family Practice 09/01/14 Dina Lilly RN 11/18/14 Francisco Javier Malik MD [address] [place] [address] Referring Orthopedics 12/26/19 Francisco Javier Malik MD [address] [facility] [address] Home Care Physician Orthopedics 12/26/19 Nai Deng, PT [address] [place] [address] Labor Gang Supervisor Post Acute Care 12/26/19 Sand Mill Operator Core Sand Relationship Specialty Start Date End Date Roberto Carlos Mullen MD [address] [facility] [address] PCP - General Family Practice 09/01/14 Dina Lilly RN 11/18/14 Francisco Javier Malik MD [address] [address] Referring Orthopedics 12/26/19 Francisco Javier Malik MD [address] [facility] [address] Home Care Physician Orthopedics 12/26/19 Nai Deng, PT [address] [place] [address] Labor Gang Supervisor Post Acute Care 12/26/19 Sand Mill Operator Core Sand Relationship Specialty Start Date End Date Roberto Carlos Mullen MD [address] [facility] [address] PCP - General Family Practice 09/01/14 Dina Lilly RN 11/18/14 Francisco Javier Malik MD [address] [place] [address] Referring Orthopedics 12/26/19 Francisco Javier Malik MD [address] [place] [address] Home Care Physician Orthopedics 12/26/19 Nai Deng, PT [address] [place] [address] Labor Gang Supervisor Post Acute Care 12/26/19 Sand Mill Operator Core Sand Relationship Specialty Start Date End Date Roberto Carlos Mullen MD [address] [facility] [address] PCP - General Family Practice 09/01/14 Dina Lilly, IGLESIA 11/18/14 Francisco Javier Malik MD [address] [place] [address] Referring Orthopedics 12/26/19 Francisco Javier Malik MD [address] [place] [address] Home Care Physician Orthopedics 12/26/19 Nai Deng, PT [address] [place] [address] Labor Gang Supervisor Post Acute Care 12/26/19 Sand Mill Operator Core Sand Relationship Specialty Start Date End Date Roberto Carlos Mullen MD [address] [facility] [place] [address] PCP - General Family Practice 09/01/14 Dina Lilly RN 11/18/14 Francisco Javier Malik MD [address] [place] [address] Referring Orthopedics 12/26/19 Francisco Javier Malik MD [address] [place] [address] Home Care Physician Orthopedics 12/26/19 Nai Deng, PT [address] [place] [address] Labor Gang Supervisor Post Acute Care 12/26/19 Sand Mill Operator Core Sand Relationship Specialty Start Date End Date Roberto Carlos Mullen MD [address] [facility] [address] PCP - General Family Practice 09/01/14 Dina Lilly RN 11/18/14 Francisco Javier Malik MD [address] [address] Referring Orthopedics 12/26/19 Francisco Javier Malik MD [address] [facility] [place] [address] Home Care Physician Orthopedics 12/26/19 Nai Deng, PT [address] [place] [address] Labor Gang Supervisor Post Acute Care 12/26/19 Sand Mill Operator Core Sand Relationship Specialty Start Date End Date Roberto Carlos Mullen MD [address] [facility] [address] PCP - General Family Practice 09/01/14 Dina Lilly RN 11/18/14 Francisco Javier Malik MD [address] [facility] [address] Referring Orthopedics 12/26/19 Francisco Javier Malik MD [address] [place] [address] Home Care Physician Orthopedics 12/26/19 Nai Deng, PT [address] [place] [address] Labor Gang Supervisor Post Acute Care 12/26/19 Sand Mill Operator Core Sand Relationship Specialty Start Date End Date Roberto Carlos Mullen MD [address] [facility] [address] PCP - General Family Practice 09/01/14 Dina Lilly RN 11/18/14 Francisco Javier Malik MD [address] [facility] [place] [address] Referring Orthopedics 12/26/19 Francisco Javier Malik MD [address] [facility] [place] [address] Home Care Physician Orthopedics 12/26/19 Nai Deng, PT [address] [place] [address] Labor Gang Supervisor Post Acute Care 12/26/19 Sand Mill Operator Core Sand Relationship Specialty Start Date End Date Roberto Carlos Mullen MD [address] [facility] [address] PCP - General Family Medicine 09/01/14 Dina Lilly RN 11/18/14 Francisco Javier Malik MD [address] [place] [address] Referring Orthopedics 12/26/19 Francisco Javier Malik MD [address] [place] [address] Home Care Provider Orthopedics 12/26/19 Nai Deng, PT [address] [place] [address] Labor Gang Supervisor Post Acute Care 12/26/19 Sand Mill Operator Core Sand Relationship Specialty Start Date End Date Roberto Carlos Mullen MD [address] [facility] [address] PCP - General Family Medicine 09/01/14 Dina Lilly RN 11/18/14 Francisco Javier Malik MD [address] [place] [address] Referring Orthopedics 12/26/19 Francisco Javier Malik MD [address] [place] [address] Home Care Provider Orthopedics 12/26/19 Nai Deng, PT [address] [place] [address] Labor Gang Supervisor Post Acute Care 12/26/19 Sand Mill Operator Core Sand Relationship Specialty Start Date End Date Roberto Carlos Mullen MD [address] [facility] [place] [address] PCP - General Family Medicine 09/01/14 Dina Lilly RN 11/18/14 Francisco Jvaier Malik MD [address] [facility] [address] Referring Orthopedics 12/26/19 Francisco Javier Malik MD [address] [place] [address] Home Care Provider Orthopedics 12/26/19 Nai Deng, PT [address] [place] [address] Labor Gang Supervisor Post Acute Care 12/26/19 Sand Mill Operator Core Sand Relationship Specialty Start Date End Date Roberto Carlos Mullen MD [address] [facility] [address] PCP - General Family Medicine 09/01/14 Dina Lilly RN 11/18/14 Francisco Javier Malik MD [address] [place] [address] Referring Orthopedics 12/26/19 Francisco Javier Malik MD [address] [place] [address] Home Care Provider Orthopedics 12/26/19 Nai Deng, PT [address] [place] [address] Labor Gang Supervisor Post Acute Care 12/26/19 Sand Mill Operator Core Sand Relationship Specialty Start Date End Date Roberto Carlos Mullen MD [address] [facility] [address] PCP - General Family Medicine 09/01/14 Dina Lilly, RN 11/18/14 Francisco Javier Malik MD [address] [facility] [place] [address] Referring Orthopedics 12/26/19 Francisco Javier Malik MD [address] [facility] [place] [address] Home Care Provider Orthopedics 12/26/19 Nai Deng, PT [address] [place] [address] Labor Gang Supervisor Post Acute Care 12/26/19 Sand Mill Operator Core Sand Relationship Specialty Start Date End Date Roberto Carlos Mullen MD [address] [facility] [address] PCP - General Family Medicine 09/01/14 Dina Lilly, RN 11/18/14 Francisco Javier Malik MD [address] [facility] [address] Referring Orthopedics 12/26/19 Francisco Javier Malik MD [address] [facility] [address] Home Care Provider Orthopedics 12/26/19 Nai Deng, PT [address] [place] [address] Labor Gang Supervisor Post Acute Care 12/26/19 Sand Mill Operator Core Sand Relationship Specialty Start Date End Date Roberto Carlos Mullen MD [address] [facility] [address] PCP - General Family Medicine 09/01/14 Dina Lilly, IGLESIA 11/18/14 Francisco Javier Malik MD [address] [facility] [place] [address] Referring Orthopedics 12/26/19 Francisco Javier Malik MD [address] [facility] [place] [address] Home Care Provider Orthopedics 12/26/19 Nai Deng, PT [address] [place] [address] Labor Gang Supervisor Post Acute Care 12/26/19 Sand Mill Operator Core Sand Relationship Specialty Start Date End Date Roberto Carlos Mullen MD [address] [facility] [address] PCP - General Family Medicine 09/01/14 Dina Lilly RN 11/18/14 Francisco Javier Malik MD [address] [place] [address] Referring Orthopedics 12/26/19 Francisco Javier Malik MD [address] [facility] [address] Home Care Provider Orthopedics 12/26/19 Nai Deng, PT [address] [place] [address] Labor Gang Supervisor Post Acute Care 12/26/19 Sand Mill Operator Core Sand Relationship Specialty Start Date End Date Roberto Carlos Mullen MD [address] [facility] [address] PCP - General Family Medicine 09/01/14 Dina Lilly RN 11/18/14 Francisco Javier Malik MD [address] [place] [address] Referring Orthopedics 12/26/19 Francisco Javier Malik MD [address] [facility] [place] [address] Home Care Provider Orthopedics 12/26/19 Nai Deng, PT [address] [place] [address] Labor Gang Supervisor Post Acute Care 12/26/19 Sand Mill Operator Core Sand Relationship Specialty Start Date End Date Roberto Carlos Mullen MD [address] [facility] [address] PCP - General Family Medicine 09/01/14 Dina Lilly RN 11/18/14 Francisco Javier Malik MD [address] [facility] [place] [address] Referring Orthopedics 12/26/19 Francisco Javier Malik MD [address] [facility] [address] Home Care Provider Orthopedics 12/26/19 Nai Deng, PT [address] [place] [address] Labor Gang Supervisor Post Acute Care 12/26/19 Sand Mill Operator Core Sand Relationship Specialty Start Date End Date Roberto Carlos Mullen MD [address] [facility] [address] PCP - General Family Medicine 09/01/14 Dina Lilly RN 11/18/14 Francisco Javier Malik MD [address] [place] [address] Referring Orthopedics 12/26/19 Francisco Javier Malik MD [address] [place] [address] Home Care Provider Orthopedics 12/26/19 Nai Deng, PT [address] [place] [address] Labor Gang Supervisor Post Acute Care 12/26/19 Sand Mill Operator Core Sand Relationship Specialty Start Date End Date Roberto Carlos Mullen MD [address] [facility] [address] PCP - General Family Medicine 09/01/14 Dina Lilly RN 11/18/14 Francisco Javier Malik MD [address] [facility] [place] [address] Referring Orthopedics 12/26/19 Francisco Javier Malik MD [address] [place] [address] Home Care Provider Orthopedics 12/26/19 Nai Deng, PT [address] [place] [address] Labor Gang Supervisor Post Acute Care 12/26/19 Sand Mill Operator Core Sand Relationship Specialty Start Date End Date Roberto Carlos Mullen MD [address] [facility] [address] PCP - General Family Medicine 09/01/14 Dina Lilly, IGLESIA 11/18/14 Francisco Javier Malik MD [address] [facility] [address] Referring Orthopedics 12/26/19 Francisco Javier Malik MD [address] [place] [address] Home Care Provider Orthopedics 12/26/19 Nai Deng, PT [address] [place] [address] Labor Gang Supervisor Post Acute Care 12/26/19 Sand Mill Operator Core Sand Relationship Specialty Start Date End Date Roberto Carlos Mullen MD [address] [facility] [address] PCP - General Family Medicine 09/01/14 Dina Lilly, RN 11/18/14 Francisco Javier Malik MD [address] [facility] [address] Referring Orthopedics 12/26/19 Francisco Javier Malik MD [address] [facility] [address] Home Care Provider Orthopedics 12/26/19 Nai Deng, PT [address] [place] [address] Labor Gang Supervisor Post Acute Care 12/26/19 Sand Mill Operator Core Sand Relationship Specialty Start Date End Date Roberto Carlos Mullen MD [address] [facility] [address] PCP - General Family Medicine 09/01/14 Dina Lilly, RN 11/18/14 Francisco Javier Malik MD [address] [facility] [address] Referring Orthopedics 12/26/19 Francisco Javier Malik MD [address] [facility] [address] Home Care Provider Orthopedics 12/26/19 Nai Deng, PT [address] [place], [place] [address]015131 Labor Gang Supervisor Post Acute Care 12/26/19 Sand Mill Operator Core Sand Relationship Specialty Start Date End Date Roberto Carlos Mullen MD [address] [facility] [address] PCP - General Family Medicine 09/01/14 Dina Lilly RN 11/18/14 Francisco Javier Malik MD [address] [facility] [place] [address] Referring Orthopedics 12/26/19 Francisco Javier Malik MD [address] [facility] [place] [address] Home Care Provider Orthopedics 12/26/19 Nai Deng, PT [address] [place] [address] Labor Gang Supervisor Post Acute Care 12/26/19 Sand Mill Operator Core Sand Relationship Specialty Start Date End Date Roberto Carlos Mullen MD [address] [facility] [address] PCP - General Family Medicine 09/01/14 Dina Lilly RN 11/18/14 Francisco Javier Malik MD [address] [place] [address] Referring Orthopedics 12/26/19 Francisco Javier Malik MD [address] [facility] [address] Home Care Provider Orthopedics 12/26/19 Nai Deng, PT [address] [place] [address] Labor Gang Supervisor Post Acute Care 12/26/19 Sand Mill Operator Core Sand Relationship Specialty Start Date End Date Roberto Carlos Mullen MD [address] [facility] [address] PCP - General Family Medicine 09/01/14 Dina Lilly RN 11/18/14 Francisco Javier Malik MD [address] [place] [address] Referring Orthopedics 12/26/19 Francisco Javier Malik MD [address] [place] [address] Home Care Provider Orthopedics 12/26/19 Nai Deng, PT [address] [place] [address] Labor Gang Supervisor Post Acute Care 12/26/19 Sand Mill Operator Core Sand Relationship Specialty Start Date End Date Roberto Carlos Mullen MD [address] [facility] [address] PCP - General Family Medicine 09/01/14 Dina Lilly RN 11/18/14 Francisco Javier Malik MD [address] [place] [address] Referring Orthopedics 12/26/19 Francisco Javier Malik MD [address] [place] [address] Home Care Provider Orthopedics 12/26/19 Nai Deng, PT [address] [place] [address] Labor Gang Supervisor Post Acute Care 12/26/19 Sand Mill Operator Core Sand Relationship Specialty Start Date End Date Roberto Carlos Mullen MD [address] [facility] [address] PCP - General Family Medicine 09/01/14 Dina Lilly RN 11/18/14 Francisco Javier Malik MD [address] [place] [address] Referring Orthopedics 12/26/19 Francisco Javier Malik MD [address] [place] [address] Home Care Provider Orthopedics 12/26/19 Nai Deng, PT [address] [place] [address] Labor Gang Supervisor Post Acute Care 12/26/19 Sand Mill Operator Core Sand Relationship Specialty Start Date End Date Roberto Carlos Mullen MD [address] [facility] [address] PCP - General Family Medicine 09/01/14 Dina Lilly, IGLESIA 11/18/14 Francisco Javier Malik MD [address] [facility] [place] [address] Referring Orthopedics 12/26/19 Francisco Javier Malik MD [address] [facility] [address] Home Care Provider Orthopedics 12/26/19 Nai Deng, PT [address] [place] [address] Labor Gang Supervisor Post Acute Care 12/26/19 Sand Mill Operator Core Sand Relationship Specialty Start Date End Date Roberto Carlos Mullen MD [address] [facility] [address] PCP - General Family Medicine 09/01/14 Dina Lilly, IGLESIA 11/18/14 Francisco Javier Malik MD [address] [place] [address] Referring Orthopedics 12/26/19 Francisco Javier Malik MD [address] [place] [address] Home Care Provider Orthopedics 12/26/19 Nai Deng, PT [address] [place] [address] Labor Gang Supervisor Post Acute Care 12/26/19 Sand Mill Operator Core Sand Relationship Specialty Start Date End Date Roberto Carlos Mullen MD [address] [facility] [address] PCP - General Family Medicine 09/01/14 Dina Lilly RN 11/18/14 Francisco Javier Malik MD [address] [place] [address] Referring Orthopedics 12/26/19 Francisco Javier Malik MD [address] [facility] [address] Home Care Provider Orthopedics 12/26/19 Nai Deng, PT [address] [place] [address] Labor Gang Supervisor Post Acute Care 12/26/19 Sand Mill Operator Core Sand Relationship Specialty Start Date End Date Roberto Carlos Mullen MD [address] [facility] [address] PCP - General Family Medicine 09/01/14 Dina Lilly RN 11/18/14 Francisco Javier Malik MD [address] [place] [address] Referring Orthopedics 12/26/19 Francisco Javier Malik MD [address] [place] [address] Home Care Provider Orthopedics 12/26/19 Nai Deng, PT [address] [place] [address] Labor Gang Supervisor Post Acute Care 12/26/19 Sand Mill Operator Core Sand Relationship Specialty Start Date End Date Roberto Carlos Mullen MD [address] [facility] [address] PCP - General Family Medicine 09/01/14 Dina Lilly RN 11/18/14 Francisco Javier Malik MD [address] [facility] [place] [address] Referring Orthopedics 12/26/19 Francisco Javier Malik MD [address] [place] [address] Home Care Provider Orthopedics 12/26/19 Nai Deng, PT [address] [place] [address] Labor Gang Supervisor Post Acute Care 12/26/19 Sand Mill Operator Core Sand Relationship Specialty Start Date End Date Roberto Carlos Mullen MD [address] [facility] [address] PCP - General Family Medicine 09/01/14 Dina Lilly RN 11/18/14 Francisco Javier Malik MD [address] [place] [address] Referring Orthopedics 12/26/19 Francisco Javier Malik MD [address] [place] [address] Home Care Provider Orthopedics 12/26/19 Nai Deng, PT [address] [place] [address] Labor Gang Supervisor Post Acute Care 12/26/19 Sand Mill Operator Core Sand Relationship Specialty Start Date End Date Roberto Carlos Mullen MD [address] [facility] [address] PCP - General Family Medicine 09/01/14 Dina Lilly RN 11/18/14 Francisco Javier Malik MD [address] [place] [address] Referring Orthopedics 12/26/19 Francisco Javier Malik MD [address] [place] [address] Home Care Provider Orthopedics 12/26/19 Nai Deng, PT [address] [place] [address] Labor Gang Supervisor Post Acute Care 12/26/19 Sand Mill Operator Core Sand Relationship Specialty Start Date End Date Roberto Carlos Mullen MD [address] [facility] [place] [address] PCP - General Family Medicine 09/01/14 Dina Lilly RN 11/18/14 Francisco Javier Malik MD [address] [facility] [address] Referring Orthopedics 12/26/19 Francisco Javier Malik MD [address] [place] [address] Home Care Provider Orthopedics 12/26/19 Nai Deng, PT [address] [place] [address] Labor Gang Supervisor Post Acute Care 12/26/19 Sand Mill Operator Core Sand Relationship Specialty Start Date End Date Roberto Carlos Mullen MD [address] [facility] [address] PCP - General Family Medicine 09/01/14 Dina Lilly RN 11/18/14 Francisco Javier Malik MD [address] [place] [address] Referring Orthopedics 12/26/19 Francisco Javier Malik MD [address] [place] [address] Home Care Provider Orthopedics 12/26/19 Nai Deng, PT [address] [place] [address] Labor Gang Supervisor Post Acute Care 12/26/19 Sand Mill Operator Core Sand Relationship Specialty Start Date End Date Roberto Carlos Mullen MD [address] [facility] [address] PCP - General Family Medicine 09/01/14 Dina Lilly, RN 11/18/14 Francisco Javier Malik MD [address] [facility] [place] [address] Referring Orthopedics 12/26/19 Francisco Javier Malik MD [address] [facility] [place] [address] Home Care Provider Orthopedics 12/26/19 Nai Deng, PT [address] [place] [address] Labor Gang Supervisor Post Acute Care 12/26/19 Sand Mill Operator Core Sand Relationship Specialty Start Date End Date Roberto Carlos Mullen MD [address] [facility] [address] PCP - General Family Medicine 09/01/14 Dina Lilly, RN 11/18/14 Francisco Javier Malik MD [address] [facility] [address] Referring Orthopedics 12/26/19 Francisco Javier Malik MD [address] [facility] [address] Home Care Provider Orthopedics 12/26/19 Nai Deng, PT [address] [place] [address] Labor Gang Supervisor Post Acute Care 12/26/19 Sand Mill Operator Core Sand Relationship Specialty Start Date End Date Roberto Carlos Mullen MD [address] [facility] [address] PCP - General Family Medicine 09/01/14 Dina Lilly, IGLESIA 11/18/14 Francisco Javier Malik MD [address] [facility] [place] [address] Referring Orthopedics 12/26/19 Francisco Javier Malik MD [address] [facility] [place] [address] Home Care Provider Orthopedics 12/26/19 Nai Deng, PT [address] [place] [address] Labor Gang Supervisor Post Acute Care 12/26/19 Sand Mill Operator Core Sand Relationship Specialty Start Date End Date Roberto Carlos Mullen MD [address] [facility] [address] PCP - General Family Medicine 09/01/14 Dina Lilly RN 11/18/14 Francisco Javier Malik MD [address] [place] [address] Referring Orthopedics 12/26/19 Francisco Javier Malik MD [address] [facility] [address] Home Care Provider Orthopedics 12/26/19 Nai Deng, PT [address] [place] [address] Labor Gang Supervisor Post Acute Care 12/26/19 Sand Mill Operator Core Sand Relationship Specialty Start Date End Date Roberto Carlos Mullen MD [address] [facility] [address] PCP - General Family Medicine 09/01/14 Dina Lilly RN 11/18/14 Francisco Javier Malik MD [address] [place] [address] Referring Orthopedics 12/26/19 Francisco Javier Malik MD [address] [facility] [place] [address] Home Care Provider Orthopedics 12/26/19 Nai Deng, PT [address] [place] [address] Labor Gang Supervisor Post Acute Care 12/26/19 Sand Mill Operator Core Sand Relationship Specialty Start Date End Date Roberto Carlos Mullen MD [address] [facility] [address] PCP - General Family Medicine 09/01/14 Dina Lilly RN 11/18/14 Francisco Javier Malik MD [address] [facility] [place] [address] Referring Orthopedics 12/26/19 Francisco Javier Malik MD [address] [facility] [address] Home Care Provider Orthopedics 12/26/19 Nai Deng, PT [address] [place] [address] Labor Gang Supervisor Post Acute Care 12/26/19 Sand Mill Operator Core Sand Relationship Specialty Start Date End Date Roberto Carlos Mullen MD [address] [facility] [address] PCP - General Family Medicine 09/01/14 Dina Lilly RN 11/18/14 Francisco Javier Malik MD [address] [place] [address] Referring Orthopedics 12/26/19 Francisco Javier Malik MD [address] [place] [address] Home Care Provider Orthopedics 12/26/19 Nai Deng, PT [address] [place] [address] Labor Gang Supervisor Post Acute Care 12/26/19 Sand Mill Operator Core Sand Relationship Specialty Start Date End Date Roberto Carlos Mullen MD [address] [facility] [address] PCP - General Family Medicine 09/01/14 Dina Lilly RN 11/18/14 Francisco Javier Malik MD [address] [place] [address] Referring Orthopedics 12/26/19 Francisco Javier Malik MD [address] [place] [id number] Home Care Provider Orthopedics 12/26/19 Nai Deng, PT [address] [place] [address] Labor Gang Supervisor Post Acute Care 12/26/19 Sand Mill Operator Core Sand Relationship Specialty Start Date End Date Roberto Carlos Mullen MD [address] [facility] [address] PCP - General Family Medicine 09/01/14 Dina Lilly RN 11/18/14 Francisco Javier Malik MD [address] [place] [address] Referring Orthopedics 12/26/19 Francisco Javier Malik MD [address] [place] [address] Home Care Provider Orthopedics 12/26/19 Nai Deng, PT [address] [place] [address] Labor Gang Supervisor Post Acute Care 12/26/19 Sand Mill Operator Core Sand Relationship Specialty Start Date End Date Roberto Carlos Mullen MD [address] [place] [address] PCP - General Family Medicine 09/01/14 Dina Lilly RN 11/18/14 Francisco Javier Malik MD [address] [place] [address] Referring Orthopedics 12/26/19 Francisco Javier Malik MD [address] [place] [address] Home Care Provider Orthopedics 12/26/19 Sand Mill Operator Core Sand Relationship Specialty Start Date End Date Roberto Carlos Mullen MD [address] [place] [address] PCP - General Family Medicine 09/01/14 Dina Lilly RN 11/18/14 Francisco Javier Malik MD [address] [place] [address] Referring Orthopedics 12/26/19 Francisco Javier Malik MD [address] [place] [address] Home Care Provider Orthopedics 12/26/19 Sand Mill Operator Core Sand Relationship Specialty Start Date End Date Roberto Carlos Mullen MD [address] [place] [address] PCP - General Family Medicine 09/01/14 Dina Lilly RN 11/18/14 Francisco Javier Malik MD [address] [place] [address] Referring Orthopedics 12/26/19 Francisco Javier Malik MD [address] [place] [address] Home Care Provider Orthopedics 12/26/19 Sand Mill Operator Core Sand Relationship Specialty Start Date End Date Roberto Carlos Mullen MD [address] [place] [address] PCP - General Family Medicine 09/01/14 Dina Lilly RN 11/18/14 Francisco Javier Malik MD [address] [place] [address] Referring Orthopedics 12/26/19 Francisco Javier Malik MD [address] [place] [address] Home Care Provider Orthopedics 12/26/19 Sand Mill Operator Core Sand Relationship Specialty Start Date End Date Roberto Carlos Mullen MD [address] [place] [address] PCP - General Family Medicine 09/01/14 Dina Lilly RN 11/18/14 Francisco Javier Malik MD [address] [place] [address] Referring Orthopedics 12/26/19 Francisco Javier Malik MD [address] [place] [address] Home Care Provider Orthopedics 12/26/19 Sand Mill Operator Core Sand Relationship Specialty Start Date End Date Roberto Carlos Mullen MD [address] [facility] [address] PCP - General Family Medicine 09/01/14 Dina Lilly RN 11/18/14 Francisco Javier Malik MD [address] [place] [address] Referring Orthopedics 12/26/19 Francisco Javier Malik MD [address] [place] [address] Home Care Provider Orthopedics 12/26/19 Sand Mill Operator Core Sand Relationship Specialty Start Date End Date Roberto Carlos Mullen MD [address] [place] [address] PCP - General Family Medicine 09/01/14 Dina Lilly RN 11/18/14 Francisco Javier Malik MD [address] [place] [address] Referring Orthopedics 12/26/19 Francisco Javier Malik MD [address] [place] [address] Home Care Provider Orthopedics 12/26/19 Sand Mill Operator Core Sand Relationship Specialty Start Date End Date Roberto Carlos Mullen MD [address] [place] [address] PCP - General Family Medicine 09/01/14 Dina Lilly RN 11/18/14 Francisco Javier Malik MD [address] [place] [address] Referring Orthopedics 12/26/19 Francisco Javier Malik MD [address] [place] [address] Home Care Provider Orthopedics 12/26/19 Sand Mill Operator Core Sand Relationship Specialty Start Date End Date Roberto Carlos Mullen MD [address] [place] [address] PCP - General Family Medicine 09/01/14 Dina Lilly RN 11/18/14 Francisco Javier Malik MD [address] [place] [address] Referring Orthopedics 12/26/19 Francisco Javier Malik MD [address] [place] [address] Home Care Provider Orthopedics 12/26/19 Sand Mill Operator Core Sand Relationship Specialty Start Date End Date Roberto Carlos Mullen MD [address] [place] [address] PCP - General Family Medicine 09/01/14 Dina Lilly RN [address] [place] [address] 11/18/14 Francisco Javier Malik MD [address] [place] [address] Referring Orthopedics 12/26/19 Francisco Javier Malik MD [address] [place] [address] Home Care Provider Orthopedics 12/26/19 Sand Mill Operator Core Sand Relationship Specialty Start Date End Date Roberto Carlos Mullen MD [address] [place] [address] PCP - General Family Medicine 09/01/14 Dina Lilly RN [address] [facility] [address] 11/18/14 Francisco Javier Malik MD [address] [place] [address] Referring Orthopedics 12/26/19 Francisco Javier aMlik MD [address] [place] [address] Home Care Provider Orthopedics 12/26/19 Sand Mill Operator Core Sand Relationship Specialty Start Date End Date Roberto Carlos Mullen MD [address] [place] [address] PCP - General Family Medicine 09/01/14 Dina Lilly RN [address] [place] [address] 11/18/14 Francisco Javier Malik MD [address] [place] [address] Referring Orthopedics 12/26/19 Francisco Javier Malik MD [address] [place] [address] Home Care Provider Orthopedics 12/26/19 FOR RECORDS PERTAINING TO PATIENTS WHO ARE OR HAVE BEEN ENROLLED IN A CHEMICAL DEPENDENCY/SUBSTANCEABUSE PROGRAM, SOME INFORMATION MAY BE OMITTED. This clinical summary was aggregated from multiple sources. Caution should be exercised in using it in the provision of clinical care. This summary normalizes information from multiple sources, and as a consequence, information in this document may materially change the coding, format and clinical context of patient data. In addition, data may be omitted in some cases. CLINICAL DECISIONS SHOULD BE BASED ON THE PRIMARY CLINICAL RECORDS. [employer] provides no warranty or guarantee of the accuracy or completeness of information in this document.
[2023-08-08 01:19] LABS: Bedside Glucose 103 mg/dL (74-106)
[2023-08-08 04:18] VITALS: BP 127/73; PULSE 66; RESP 18; TEMP 35.6; O2SAT 95
[2023-08-08 07:18] LABS: Bedside Glucose 138 mg/dL (74-106)
[2023-08-08 08:06] VITALS: BP 165/96; PULSE 67; RESP 16; TEMP 36.7; O2SAT 97
--- NOTE | 2023-08-08 08:11 | PN.HOSP_ITS ---
Reason for Visit Reason for Visit: Diagnoses Dizziness and giddiness (08/07/23) Subjective Subjective Feels well. States that since nguyen COVID, about a month ago, has been experiencing headache as well as congestion. Objective Data Objective Data Vital Signs: Vital Signs Temp Pulse Resp BP Pulse Ox O2 Del Method 35.6 C L 66 18 127/73 H 95 Room Air 08/08/23 04:18 08/08/23 04:18 08/08/23 04:18 08/08/23 04:18 08/08/23 04:18 08/08/23 04:18 Oxygen Delivery Method Room Air Weight: 112.2 kg Body Mass Index (BMI) 31.7 Intake & Output: Intake and Output for Last 24 Hours 08/06/23 08/07/23 08/08/23 23:59 23:59 23:59 Intake Total 440 / 440 Balance 440 / 440 Lab / Micro Data 08/07/23 14:30 08/07/23 14:30 Labs: Laboratory Results - last 24 hr 08/07/23 14:30: WBC 7.9, RBC 5.58, Hgb 15.9, Hct 49.3, MCV 88.4, MCH 28.5, MCHC 32.3, RDW Std Deviation 49.2 H, RDW Coeff of Cristal 15.4 H, Plt Count 230, MPV 9.7, Immature Gran % (Auto) 0.500, Neut % (Auto) 66.8, Lymph % (Auto) 18.1 L, [place] % (Auto) 8.0, Eos % (Auto) 5.7 H, Baso % (Auto) 0.9, Absolute Neuts (auto) 5.3, Absolute Lymphs (auto) 1.43, Nucleated RBC % 0, PT 12.9, INR 1.0, APTT 26.1, Sodium 139, Potassium 4.1, Chloride 111 H, Carbon Dioxide 21.0, Anion Gap 7, BUN 21 H, Creatinine 1.05, Estim Creat Clear Calc 82.61, Est GFR (MDRD) Af Amer 89, Est GFR (MDRD) Non-Af 74, BUN/Creatinine Ratio 20.0, Glucose 135 H, Calcium 9.7 08/07/23 16:08: POC Glucose 103 08/07/23 20:41: POC Glucose 103 08/08/23 06:24: POC Glucose 138 H Radiography Diagnostic Testing: Radiology Impression Chest X-Ray 08/07/23 14:20 IMPRESSION: Stable chest with no acute or active cardiopulmonary disease. Electronically Signed: Elmer Knott MD at 14:26 EST , Head/Neck CTA 08/07/23 15:07 IMPRESSION: No evidence of arterial stenosis, occlusion, dissection or intracranial aneurysm. 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 Patient did have some medial nystagmus of the right eye with left lateral gaze. Resp normal respiratory effort, no retractions, no use of accessory muscles and clear to auscultation bilaterally GI normal to inspection, nondistended, normoactive bowel sounds, soft to palpation, non-tender and non-distended Assessment & Plan Assessment/Plan (1) Vertigo: PLAN: Plan Vertigo * suspect BPPV * MRI brain showed chronic ischemic changes. * Patient already familiar with Estephania maneuvers and advised to utilize those if he experiences dizziness again. Patient will receive a prescription for as needed meclizine if he does have recurrent dizziness. Cephalgia * Chronic since having COVID recently. As needed acetaminophen or ibuprofen. * Patient also having upper respiratory symptoms with congestion. Patient already using Flonase. Recommend that he can take may be Claritin or Singulair to help. Chronic conditions: * coronary artery disease-this appears to be stable at this time, patient will remain on his current medications * obstructive sleep apnea-patient's will bring in his CPAP machine * essential hypertension-patient will remain on his home medications * chronic obstructive pulmonary disease-patient uses a Breo inhaler, he uses it once a day and he has had his dose for today, I will elect to hold his dose tomorrow in case he is discharged home in which case he can use it then * type 2 diabetes-patient is on Trulicity and oral medications for his diabetes, fingerstick blood sugars will be monitored and he will receive sliding scale insulin
[2023-08-08] MEDS: buPROPion (XL) 150 MG TABLET.XL PO (09:00)
[2023-08-08] MEDS: amLODIPine 10 MG Tablet PO (09:00)
[2023-08-08] MEDS: Losartan Potassium 100 MG Tablet PO (09:00)
[2023-08-08] MEDS: Aspirin 81 MG TAB.CHEW 162 MG PO (09:00)
[2023-08-08] MEDS: Carvedilol 6.25 MG Tablet PO (09:01)
[2023-08-08] MEDS: Acetaminophen 325 MG Tablet 650 MG PO (10:08)
[2023-08-08 11:36] LABS: Bedside Glucose 130 mg/dL (74-106)
[2023-08-08 13:42] VITALS: BP 141/84; PULSE 70; RESP 16; TEMP 36.7; O2SAT 95
--- NOTE | 2023-08-08 13:52 | CASEMGMT ---
Social Work Per chart review for advance directives, patient has completed them but they are not on file. Pt reports Carilta Ross is HCPOA and documents can be provided to the hospital when able. Emelyn Blake POWDERED METAL SUPERVISOR, SHAPER HAND
--- NOTE | 2023-08-08 14:05 | DS.PCM_ITS ---
Providers Date of Admission: 08/07/23 Primary Care Physician: Dr. Roberto Carlos Fernandes MD Reason For Visit: VERTIGO Diagnosis Discharge Diagnosis (1) Vertigo: Status: Acute Code(s): R42 - Dizziness and giddiness Plan Vertigo * suspect BPPV * MRI brain showed chronic ischemic changes. * Patient already familiar with Estephania maneuvers and advised to utilize those if he experiences dizziness again. Patient will receive a prescription for as needed meclizine if he does have recurrent dizziness. Cephalgia * Chronic since having COVID recently. As needed acetaminophen or ibuprofen. * Patient also having upper respiratory symptoms with congestion. Patient already using Flonase. Recommend that he can take may be Claritin or Singulair to help. Chronic conditions: * coronary artery disease-this appears to be stable at this time, patient will remain on his current medications * obstructive sleep apnea-patient's will bring in his CPAP machine * essential hypertension-patient will remain on his home medications * chronic obstructive pulmonary disease-patient uses a Breo inhaler, he uses it once a day and he has had his dose for today, I will elect to hold his dose tomorrow in case he is discharged home in which case he can use it then * type 2 diabetes-patient is on Trulicity and oral medications for his diabetes, fingerstick blood sugars will be monitored and he will receive sliding scale insulin Medications at Discharge Home Medications magnesium oxide 400 mg (241.3 mg magnesium) tablet 400 mg PO DAILY 11/25/14 metformin 1,000 mg tablet 1,000 mg PO BIDCM 11/25/14 multivitamin,mi-oibh-Up-FA-min 1 ea PO DAILY 11/25/14 pramipexole 0.25 mg tablet 0.25 mg PO QHS 11/25/14 amlodipine 5 mg tablet 5 mg PO DAILY 02/24/16 fluticasone propionate 50 mcg/actuation nasal spray,suspension 2 spray DAILY 02/24/16 fluticasone furoate 200 mcg-vilanterol 25 mcg/dose inhalation powder 1 puff inhalation DAILY 03/25/20 dulaglutide 1.5 mg/0.5 mL subcutaneous pen injector (Trulicity) 1.5 mg subcut FR 12/16/20 losartan 100 mg tablet 100 mg PO DAILY 12/16/20 albuterol sulfate 90 mcg/actuation aerosol inhaler 2 puff inhalation Q4H PRN PRN sob & or wheezing 02/27/21 ergocalciferol (vitamin D2) 1,000 unit capsule 1,000 unit PO DAILY 02/27/21 aspirin 81 mg chewable tablet 162 mg PO DAILY 12/11/21 carvedilol 6.25 mg tablet 6.25 tab PO BID 12/11/21 ondansetron HCl 4 mg tablet 4 mg PO Q6H PRN nausea and vomiting #15 tabs 05/04/22 amlodipine 10 mg tablet 10 mg PO DAILY 08/07/23 atorvastatin 40 mg tablet 40 mg PO QHS 08/07/23 bupropion HCl 150 mg 24 hr tablet, extended release 150 mg PO DAILY 08/07/23 acetaminophen 325 mg tablet 1,000 mg (3.0769 x 325 mg) PO Q6H PRN PRN Pain 1-10 Or Fever >100.7 #0 tabs 08/08/23 ibuprofen 200 mg tablet 400 mg (2 x 200 mg) PO Q6H PRN headache #20 tabs 08/08/23 loratadine 10 mg tablet 10 mg PO DAILY #30 tabs 08/08/23 meclizine 25 mg tablet 25 mg PO TID PRN dizziness #20 tabs 08/08/23 Hospital Course Operations None Procedures None Summary of Care Provided Minutes Spent on Discharge: 32 Hospital Course: Patient presents with dizziness. He underwent a workup with an MRI and CTA of the head neck that were unremarkable. Symptoms seem consistent with benign paroxysmal positional vertigo. Patient received prescription for meclizine as outpatient and he is already familiar with doing the Estephania maneuvers on himself. Additionally, patient had COVID about a month ago and since then has been having a headache and congestion. Started using Flonase did advise him to try Claritin. You may use acetaminophen and ibuprofen to help him with his h eadaches. Weight / BMI Weight Weight: 112.2 kg Body Mass Index (BMI) 31.7 ABG / Lab / Microbiology Data 08/07/23 14:30 08/07/23 14:30 Laboratory: Laboratory Results - last 24 hr 08/07/23 14:30: WBC 7.9, RBC 5.58, Hgb 15.9, Hct 49.3, MCV 88.4, MCH 28.5, MCHC 32.3, RDW Std Deviation 49.2 H, RDW Coeff of Cristal 15.4 H, Plt Count 230, MPV 9.7, Immature Gran % (Auto) 0.500, Neut % (Auto) 66.8, Lymph % (Auto) 18.1 L, [place] % (Auto) 8.0, Eos % (Auto) 5.7 H, Baso % (Auto) 0.9, Absolute Neuts (auto) 5.3, Absolute Lymphs (auto) 1.43, Nucleated RBC % 0, PT 12.9, INR 1.0, APTT 26.1, Sodium 139, Potassium 4.1, Chloride 111 H, Carbon Dioxide 21.0, Anion Gap 7, BUN 21 H, Creatinine 1.05, Estim Creat Clear Calc 82.61, Est GFR (MDRD) Af Amer 89, Est GFR (MDRD) Non-Af 74, BUN/Creatinine Ratio 20.0, Glucose 135 H, Calcium 9.7 08/07/23 16:08: POC Glucose 103 08/07/23 20:41: POC Glucose 103 08/08/23 06:24: POC Glucose 138 H 08/08/23 11:01: POC Glucose 130 H Radiography Diagnostic Testing: Radiology Impression Chest X-Ray 08/07/23 14:20 IMPRESSION: Stable chest with no acute or active cardiopulmonary disease. Electronically Signed: Elmer Knott MD at 14:26 EST , Head/Neck CTA 08/07/23 15:07 IMPRESSION: No evidence of arterial stenosis, occlusion, dissection or intracranial aneurysm. Electronically Signed: Lam Andrea MD at 16:15 EST , Brain MRI 08/07/23 19:46 IMPRESSION: 1. Involutional and chronic ischemic changes of the brain, as described above. Electronically Signed: Kg Fairchild MD at 12:41 EST , D/C Instructions Discharge Diet: No restrictions Meaningful Use Info Meaningful Use Diagnoses (Choose all that apply): None applicable Discharge Plan Admission Admit Date/Time: 08/07/23 18:15 Primary Reason for Your Visit: vertigo Attending Provider: Johnson Tate Primary Care Provider: Roberto Carlos Fernandes Consulting Providers: Jayme Gonsalves Instructions Additional Instructions / Restrictions: You had dizziness this felt to be due to vertigo. MRI was negative for any stroke or mass. You have a prescription for meclizine (also known as Antivert) that you can take as needed if you have recurrent dizziness. Also try to utilize your knowledge of the Estephnaia maneuvers to help you when this event occurs in the future, if it occurs. You can been complaining of some symptoms as well since having COVID with headache and congestion. You are already using Flonase. Consider adding Claritin to see if that may help with some of the congestion. Discharge Orders/Prescriptions Prescriptions: New acetaminophen 325 mg Tablet 1,000 mg PO Q6H PRN PRN (Reason: Pain 1-10 Or Fever >100.7) Qty: 0 0RF meclizine 25 mg tablet 25 mg PO TID PRN (Reason: dizziness) Qty: 20 0RF ibuprofen 200 mg tablet 400 mg PO Q6H PRN (Reason: headache) Qty: 20 0RF loratadine 10 mg tablet 10 mg PO DAILY Qty: 30 0RF Continued magnesium oxide 400 MG tablet 400 mg PO DAILY Patient Comments: supplement multivitamin,wf-zdqg-Ef-FA-min 1 EACH tablet 1 ea PO DAILY Patient Comments: vitamin metformin 1,000 MG tablet 1,000 mg PO BIDCM Patient Comments: diabetes/ control blood sugar levels, takes at 1200 pramipexole 0.25 MG tablet 0.25 mg PO QHS Patient Comments: restless legs amlodipine 5 MG tablet 5 mg PO DAILY Patient Comments: BLOOD PRESSURE fluticasone propionate 1 SPRAY spray,suspension 2 spray NASAL DAILY Patient Comments: ALLERGIES fluticasone furoate-vilanterol 1 EACH blister with device 1 puff INHALATION DAILY Patient Comments: INHALE 1 PUFF BY MOUTH ONCE DAILY WITH GOOD ORAL CARE losartan 100 mg tablet 100 mg PO DAILY Patient Comments: TAKE 1 TABLET BY MOUTH ONCE DAILY Charli 1.5 mg/0.5 mL pen injector 1.5 mg SUBCUT FR albuterol sulfate 90 mcg/actuation HFA aerosol inhaler 2 puff INHALATION Q4H PRN PRN (Reason: sob & or wheezing) Patient Comments: INHALE 2 PUFFS BY MOUTH EVERY 4 HOURS NEEDED FOR SHORTNESS OF BREATH AND WHEEZING ergocalciferol (vitamin D2) 1,000 unit Capsule 1,000 unit PO DAILY aspirin 81 mg Tablet,Chewable 162 mg PO DAILY carvedilol 6.25 mg tablet 6.25 tab PO BID Patient Comments: TAKE 1 TABLET BY MOUTH TWICE A DAY ondansetron HCl 4 mg tablet 4 mg PO Q6H PRN (Reason: nausea and vomiting) Qty: 15 0RF atorvastatin 40 mg tablet 40 mg PO QHS amlodipine 10 mg tablet 10 mg PO DAILY bupropion HCl 150 mg tablet extended release 24 hr 150 mg PO DAILY Referrals / Follow Up: Roberto Carlos Fernandes MD [Primary Care Provider] - Within 2 Weeks Disposition Disposition (needs filled in before D/C Order can be placed): Home, Self Care Charges/Coding Visit Charges Inpatient E&M: 14249 Disch Hosp >30min
--- NOTE | 2023-08-08 14:45 | PHA.DC.MC.R ---
Pharmacy [facility] has performed discharge medication reconciliation and counseling for this patient. The patient's discharge medication list was reviewed for discrepancies and discrepancies were resolved. The patient was counseled on the following discharge medications and changes in medications for homegoing were reviewed. The Reason for Use, instructions for use, and potential side effects were reviewed for all new medications. The patient's questions regarding all of their medications were answered. 1. Loratadine 10 mg PO daily 2. Meclizine 25 mg PO TID PRN dizziness The patient was able to verbally demonstrate an understanding of their discharge medications. The patient was counselled on new medications by pharmacy graduate intern Can. Medications at Discharge Home Medications magnesium oxide 400 mg (241.3 mg magnesium) tablet 400 mg PO DAILY supplement 11/25/14 metformin 1,000 mg tablet 1,000 mg PO BIDCM diabetes 11/25/14 multivitamin,js-qvqf-Pa-FA-min 1 ea PO DAILY vitamin 11/25/14 pramipexole 0.25 mg tablet 0.25 mg PO QHS restless legs 11/25/14 amlodipine 5 mg tablet 5 mg PO DAILY blood pressure 02/24/16 fluticasone propionate 50 mcg/actuation nasal spray,suspension 2 spray DAILY allergies 02/24/16 fluticasone furoate 200 mcg-vilanterol 25 mcg/dose inhalation powder 1 puff inhalation DAILY breathing 03/25/20 dulaglutide 1.5 mg/0.5 mL subcutaneous pen injector (Trulicity) 1.5 mg subcut FR diabetes 12/16/20 losartan 100 mg tablet 100 mg PO DAILY blood pressure 12/16/20 albuterol sulfate 90 mcg/actuation aerosol inhaler 2 puff inhalation Q4H PRN PRN sob & or wheezing 02/27/21 ergocalciferol (vitamin D2) 1,000 unit capsule 1,000 unit PO DAILY vitamin 02/27/21 aspirin 81 mg chewable tablet 162 mg PO DAILY heart health 12/11/21 carvedilol 6.25 mg tablet 6.25 tab PO BID blood pressure 12/11/21 ondansetron HCl 4 mg tablet 4 mg PO Q6H PRN nausea and vomiting #15 tabs 05/04/22 amlodipine 10 mg tablet 10 mg PO DAILY blood pressure 08/07/23 atorvastatin 40 mg tablet 40 mg PO QHS cholesterol 08/07/23 bupropion HCl 150 mg 24 hr tablet, extended release 150 mg PO DAILY mental health 08/07/23 acetaminophen 325 mg tablet 1,000 mg (3.0769 x 325 mg) PO Q6H PRN PRN Pain 1-10 Or Fever >100.7 #0 tabs 08/08/23 ibuprofen 200 mg tablet 400 mg (2 x 200 mg) PO Q6H PRN headache #20 tabs 08/08/23 loratadine 10 mg tablet 10 mg PO DAILY #30 tabs 08/08/23 meclizine 25 mg tablet 25 mg PO TID PRN dizziness #20 tabs 08/08/23
--- NOTE | 2023-08-08 14:48 | CHAPLAIN ---
Type of Pastoral Visit _x__ Initial Visit ___ Follow-up Visit ___ On-call Visit ___ General Patient Visit ___ Spiritual Assessment ___ Family Conference ___ Bereavement ___ Rapid Response ___ Code Blue ___ Other (describe below) Pastoral Care Referral From _x__ Patient ___ Family ___ Nurse ___ Physician ___ Ruffler ___ Industrial Robotics Mechanic ___ Other (describe below) Sacrament/Intervention _x__ Active listening ___ Anointing ___ Yarsani ___ Bereavement ___ Communion _x__ Rosanne exploration ___ _x__ Life review _x__ Prayer ___ Reconciliation ___ Sacrament of Sick ___ Supportive presence ___ Wedding ___ Other (describe below) Pastoral Comments patient and spouse give review of life, past grief issues, spiritual beliefs and the consideration of where to go to [facility] in their current search; pt and spouse are open to talk about life and spiritual things, welcoming a prayer and someone to talk with while they wait for a decision for discharge
--- NOTE | 2023-08-08 14:50 | CASEMGMT ---
Patient has order for discharge. RN CM in to discuss needs at discharge. Patient and deny needs or help at discharge. Patient and had no further questions or concerns.
== END 2023-08-08 14:12 | disposition home or self-care (01) ==
LOC: ED 16:31 → PCU 17:36
PROVIDERS: Admitting Provider Internal Medicine; Emergency Provider Emergency Medicine; PCP Family Medicine
DX: R42 Dizziness and giddiness (principal); M06.9 Rheumatoid arthritis, unspecified; J44.9 Chronic obstructive pulmonary disease, unspecified; E11.9 Type 2 diabetes mellitus without complications; G47.33 Obstructive sleep apnea (adult) (pediatric); Z79.84 Long term (current) use of oral hypoglycemic drugs; I10 Essential (primary) hypertension; Z86.16 Personal history of COVID-19; Z79.82 Long term (current) use of aspirin; E78.5 Hyperlipidemia, unspecified; Z79.899 Other long term (current) drug therapy; I25.10 Atherosclerotic heart disease of native coronary artery without angina pectoris; R94.31 Abnormal electrocardiogram [ECG] [EKG]; I44.7 Left bundle-branch block, unspecified; I44.0 Atrioventricular block, first degree
CPT/HCPCS: 70496; 70498; 70551; 71045; 80048; 82962; 85025; 85610; 85730; 93005; 97161; 97165; 99221; 99285; Q9967; A4216; G0378

== ENCOUNTER 2024-06-28 17:54 | Inpatient (IN) | payer MEDICARE, OTHER, SELFPAY ==
[2024-06-28] VITALS (8 sets, daily range): BP systolic 103–130; BP diastolic 72–114; PULSE 78–108; RESP 16–18; TEMP 36.8–37.1; O2SAT 95–98; BMI 30.2
--- NOTE | 2024-06-28 18:08 | RAD_ITS ---
EXAM: XR CHEST, 2 VIEWS CLINICAL INDICATION: chest pain TECHNIQUE: Frontal and lateral views of the chest. COMPARISON: 08/07/2023 FINDINGS: LUNGS AND PLEURAL SPACES: Unremarkable. No consolidation or edema. No pneumothorax. No effusion. HEART: Unremarkable. Cardiac silhouette not enlarged. MEDIASTINUM: Central airways and mediastinal contour are unremarkable. BONES/JOINTS: There is a total right shoulder prosthesis. There are median sternotomy wires. No acute fracture. SOFT TISSUES: Unremarkable. RAD/Chest PA and Lateral IMPRESSION: No acute findings in the chest. Electronically Signed: Denny Leach MD at 20:11 EST ,
--- NOTE | 2024-06-28 18:08 | CT_ITS ---
EXAM: CT HEAD WITHOUT INTRAVENOUS CONTRAST CLINICAL INDICATION: dizzy then syncope TECHNIQUE: Multiple axial images were obtained of the head without intravenous contrast. This CT exam was performed using one or more of the following dose reduction techniques: automated exposure control, adjustment of the mA and/or kV according to patient size, and/or use of iterative reconstruction technique. COMPARISON: 08/07/2023 FINDINGS: BRAIN AND EXTRA-AXIAL SPACES: Unremarkable. No intra- or extra-axial hemorrhage. No evidence of acute infarct. No intracranial mass or mass effect. There is preservation of the serrano/white matter interface. Posterior fossa structures are unremarkable. Ventricles are appropriate for age. No hydrocephalus. Basal cisterns are patent. BONES/JOINTS: Unremarkable. No discrete lytic or blastic abnormalities. SINUSES: Unremarkable as visualized. Clear. MASTOID AIR CELLS: Unremarkable. Clear. 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 CT/Brain/Head without Contrast IMPRESSION: No acute findings in the head/brain. Electronically Signed: Denny Leach MD at 19:54 EST ,
--- NOTE | 2024-06-28 18:27 | EDS_ITS ---
HPI History of Present Illness Chief Complaint: Syncope Narrative Narrative: Patient is a 74-year-old male with a past medical history asthma, rheumatoid arthritis, depression, anxiety, PE on Eliquis, recent CABG in March at [facility] with valve replacement, CHF with ejection fraction of 26% who presented to the emerged part with chief complaint of passing out headache. According to the patient's at bedside recently he was having issues they went to [facility] Secondary to his poor EF and they state that they wanted to a study where they are titrating drugs to see what type of therapy he needs to be on. They state that they went there and sat there for 6 hours per request of the inspector semiconductor wafer and ultimately left before being seen as they did not have any beds. They state that they went home and called the inspector semiconductor wafer and they advised them to go to [facility] as they live closer to this hospital the inspector semiconductor wafer that is and they went there and they did not do this titration of drugs either so they left. They state that he was placed in cardiac rehab and he was there recently and his heart rate was very high therefore they discontinued the cardiac rehab and would not let him continue any further. Today patient was sitting in his chair and he states that he became very lightheaded and thought he was in a pass out therefore he lowered himself to the ground out of his recliner where he passed out and he was passed out for approximately 30 seconds a state. He is not complain of headache as well. [facility] Medical History Stenosis of lumbosacral spine Lumbar disc disease First degree AV block Asthma Blindness of left eye Rheumatoid arthritis History of pulmonary embolism History of kidney stones Hiatal hernia History of diverticulitis Continuous positive airway pressure dependent Limited mobility Pressure ulcer of sacral region, stage 1 Depression Anxiety Abrasion Pulmonary embolism Restless legs Back pain Syncope Dietary restriction History of hiatal hernia History of ulceration History of diverticulitis Non-smoker History of edema History of echocardiogram History of stress test Cardiology follow-up encounter Vision loss of left eye Rheumatoid arthritis Kidney stones CPAP (continuous positive airway pressure) dependence Asthma Pulmonary embolism H/O bicuspid aortic valve Post-op pneumonia Diabetes COPD (chronic obstructive pulmonary disease) Hypertension Dizziness Diabetes mellitus Sleep apnea Obesity Hypertension Depression Home Medications ?Medication ?Instructions ?Recorded ?Last Taken ?Type magnesium oxide 400 mg (241.3 mg 400 mg PO DAILY supplement 11/25/14 02/24/16 History magnesium) tablet metformin 1,000 mg tablet 1,000 mg PO BIDCM diabetes 11/25/14 Unknown History multivitamin,li-xyso-Fn-FA-min 1 ea PO DAILY vitamin 11/25/14 02/24/16 History pramipexole 0.25 mg tablet 0.25 mg PO QHS restless legs 11/25/14 02/23/16 History fluticasone propionate 50 2 spray DAILY allergies 02/24/16 02/24/16 History mcg/actuation nasal spray,suspension fluticasone furoate 200 1 puff inhalation DAILY breathing 03/25/20 Unknown History mcg-vilanterol 25 mcg/dose inhalation powder albuterol sulfate 90 mcg/actuation 2 puff inhalation Q4H PRN PRN sob 02/27/21 12/15/21 07:30 History aerosol inhaler & or wheezing aspirin 81 mg chewable tablet 162 mg PO DAILY heart health 12/11/21 12/13/21 History ondansetron HCl 4 mg tablet 4 mg PO Q6H PRN nausea and 05/04/22 Unknown Rx vomiting #15 tabs atorvastatin 40 mg tablet 40 mg PO QHS cholesterol 08/07/23 Unknown History bupropion HCl 150 mg 24 hr tablet, 150 mg PO DAILY mental health 08/07/23 Unknown History extended release acetaminophen 325 mg tablet 1,000 mg (3.0769 x 325 mg) PO Q6H 08/08/23 Unknown Rx PRN PRN Pain 1-10 Or Fever >100.7 #0 tabs ibuprofen 200 mg tablet 400 mg (2 x 200 mg) PO Q6H PRN 08/08/23 Unknown Rx headache #20 tabs meclizine 25 mg tablet 25 mg PO TID PRN dizziness #20 tabs 08/08/23 Unknown Rx apixaban 5 mg tablet (Eliquis) 5 mg PO Q12H 06/28/24 Unknown History budesonide 1 mg/2 mL suspension 1 mg inhalation BID 06/28/24 Unknown History for nebulization cholecalciferol (vitamin D3) 25 1,000 unit PO DAILY 06/28/24 Unknown History mcg (1,000 unit) capsule furosemide 40 mg tablet 40 mg PO DAILY 06/28/24 Unknown History metoprolol succinate 25 mg 25 mg PO DAILY 06/28/24 Unknown History tablet,extended release 24 hr potassium chloride 20 mEq 20 meq PO DAILY 06/28/24 Unknown History tablet,extended release(part/cryst) sacubitril 49 mg-valsartan 51 mg 1 tab PO BID 06/28/24 Unknown History tablet (Entresto) tirzepatide 5 mg/0.5 mL 5 mg subcut QWEEK 06/28/24 Unknown History subcutaneous pen injector (Mounjaro) Allergy/AdvReac Type Severity Reaction Status Date / Time erythromycin base AdvReac Diarrhea Verified 06/28/24 17:56 oxycodone (From Percocet) AdvReac Other Verified 06/28/24 17:56 tramadol AdvReac Other Verified 06/28/24 17:56 Surgical History History of coronary artery bypass graft Hx of cystoscopy History of thoracic aortic aneurysm repair H/O shoulder replacement Status post reverse total shoulder replacement S/P aortic valve repair Social History Smoking Status: Never smoker ROS ROS ED ROS Narrative Constitutional: Complains of headache as noted above as well as lightheadedness denies dizziness despite noted in triage note. Once again the patient states that he got tunneling vision and felt like he was in a pass out things were not spinning Eyes: Denies change in vision double vision blurry vision Cardiovascular: Denies chest pain or palpitations currently states that he has been having chest pain on and off Respiratory: Denies coughing wheezing shortness of breath Abdomen: Denies abdominal pain nausea vomit diarrhea : Denies any urinary symptoms Neurological: Denies any numbness, weakness, tingling Musculoskeletal: Denies back pain Skin: Denies any rashes or lesions EXAM Physical Exam Narrative Exam Narrative: General: Patient lying in bed rest comfortably did not appear to be in acute distress Head: Atraumatic, normocephalic Eyes: PERRL bilaterally, EOMI bilaterally, no conjunctival injection noted Neck: Soft, supple, trachea midline Cardiovascular: Regular in rhythm no murmurs gallops rubs noted Respiratory: Clear to auscultation bilaterally Abdomen: Soft, nondistended, nontender to palpation, bowel sounds present x 4 Extremities: +4/5 strength noted in the bilateral upper and lower extremities, radial pulses +2/4 in the bilateral extremities, no pedal edema no exam Neurological: Patient knew that he was at [facility] years 2024 following commands acting appropriate Skin: Warm, dry, intact Const Vital Signs: 06/28/24 17:56 06/28/24 18:08 06/28/24 18:56 Temperature 98.7 F Temperature Source Oral Pulse Rate 108 H 100 Pulse Rate [Lying] Pulse Rate [Sitting (for 1 minute prior to obtaining)] Pulse Rate [Standing (for 1 minute prior to obtaining)] Respiratory Rate 16 16 Blood Pressure 130/106 H 115/87 H Blood Pressure [Lying] Blood Pressure [Sitting (for 1 minute prior to obtaining)] Blood Pressure [Standing (for 1 minute prior to obtaining)] Blood Pressure Mean 114 96 Blood Pressure Mean [Lying] Blood Pressure Mean [Sitting (for 1 minute prior to obtaining)] Blood Pressure Mean [Standing (for 1 minute prior to obtaining)] Pulse Ox 98 95 Oxygen Delivery Method Room Air Room Air Room Air 06/28/24 19:00 06/28/24 20:00 06/28/24 21:00 Temperature Temperature Source Pulse Rate 93 88 92 Pulse Rate [Lying] Pulse Rate [Sitting (for 1 minute prior to obtaining)] Pulse Rate [Standing (for 1 minute prior to obtaining)] Respiratory Rate 18 18 17 Blood Pressure 120/77 103/73 Blood Pressure [Lying] Blood Pressure [Sitting (for 1 minute prior to obtaining)] Blood Pressure [Standing (for 1 minute prior to obtaining)] Blood Pressure Mean 91 83 Blood Pressure Mean [Lying] Blood Pressure Mean [Sitting (for 1 minute prior to obtaining)] Blood Pressure Mean [Standing (for 1 minute prior to obtaining)] Pulse Ox 98 96 98 Oxygen Delivery Method Room Air Room Air Room Air 06/28/24 21:48 06/28/24 22:14 06/28/24 23:05 Temperature Temperature Source Pulse Rate 93 Pulse Rate [Lying] 83 Pulse Rate [Sitting (for 1 minute prior to obtaining)] 95 Pulse Rate [Standing (for 1 minute prior to obtaining)] 106 H Respiratory Rate 18 Blood Pressure 109/72 114/80 Blood Pressure [Lying] 127/114 H Blood Pressure [Sitting (for 1 minute prior to obtaining)] 105/82 H Blood Pressure [Standing (for 1 minute prior to obtaining)] 109/94 H Blood Pressure Mean 84 91 Blood Pressure Mean [Lying] 118 Blood Pressure Mean [Sitting (for 1 minute prior to obtaining)] 89 Blood Pressure Mean [Standing (for 1 minute prior to obtaining)] 99 Pulse Ox 96 Oxygen Delivery Method Room Air 06/28/24 23:05 Temperature 98.2 F Temperature Source Pulse Rate 78 Pulse Rate [Lying] Pulse Rate [Sitting (for 1 minute prior to obtaining)] Pulse Rate [Standing (for 1 minute prior to obtaining)] Respiratory Rate 16 Blood Pressure 114/80 Blood Pressure [Lying] Blood Pressure [Sitting (for 1 minute prior to obtaining)] Blood Pressure [Standing (for 1 minute prior to obtaining)] Blood Pressure Mean 91 Blood Pressure Mean [Lying] Blood Pressure Mean [Sitting (for 1 minute prior to obtaining)] Blood Pressure Mean [Standing (for 1 minute prior to obtaining)] Pulse Ox 95 Oxygen Delivery Method MDM MDM MDM Narrative Medical decision making narrative: Patient is a 74-year-old male who presented to the emerged part with a chief complaint of syncopal episode and becoming lightheaded. On the differential diagnose includes but not limited to cardiac arrhythmia, ACS, intracranial hemorrhage, CHF, electrolyte abnormality. Once workup is obtained reviewed he will be reevaluated. 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 tach or other arrhythmia. Patient's EKG reviewed and independently interpreted by myself showed sinus tachycardia with a rate of 103 bpm with evidence of left bundle branch block noted No Sgarbossa criteria met. This was compared to a previous EKG on 08/07/2023 which showed evidence of left bundle branch block at that point time as well and is largely unchanged Patient's CBC was reviewed showed no evidence leukocytosis white blood count normal 8.4, hemoglobin 15.2, plate count was noted be 226. Patient's INR was 1.2, PT of 15 he is on Eliquis. Patient sodium normal at 141, potassium was 4.1, creatinine normal at 1.29. Patient's troponin was 13 with a delta troponin pending at 12. I did add on a proBNP. Patient TSH was elevated at 4.34 however free T3 and free T4 were normal at 2.3 and 0.97 respectively. Patient's chest x-ray was reviewed by myself and by radiology showed no acute cardiopulmonary processes. Patient CT head and brain without contrast showed no acute findings. My reevaluation the patient we did attempt to ambulate him and he became very lightheaded feeling that he was get a pass out do believe he will warrant admission at this point time. I did review the patient's outside records and on his MyChart his echocardiogram from April 02, 2024 showed ejection fraction of 26% ?5% with the prosthetic aortic valve noted. Did discuss case with hospitalist Dr. Parra who accept patient for admis daisy. Patient is notified he is agreeable this plan as well as significant other at bedside. All question concerns answered. We did attempt to reach out to the Holter monitor team that he currently has on his chest and they are unable to provide any interpretation as this has to be sent into them before they can transmit the information Lab Data Labs: Laboratory Results - last 24 hr 06/28/24 06/28/24 18:24 20:15 WBC 8.4 RBC 5.68 Hgb 15.2 Hct 49.1 MCV 86.4 MCH 26.8 L MCHC 31.0 L RDW Std Deviation 49.2 H RDW Coeff of Cristal 16.1 H Plt Count 226 MPV 10.7 Immature Gran % (Auto) 0.500 Neut % (Auto) 68.3 Lymph % (Auto) 19.4 Rhea % (Auto) 7.4 Eos % (Auto) 3.8 Baso % (Auto) 0.6 Absolute Neuts (auto) 5.8 Absolute Lymphs (auto) 1.63 Nucleated RBC % 0 PT 15.0 H INR 1.2 APTT 28.3 Sodium 141 Potassium 4.1 Chloride 109 H Carbon Dioxide 24.0 Anion Gap 8 BUN 33 H Creatinine 1.29 Est GFR (MDRD) Af Amer 70 Est GFR (MDRD) Non-Af 58 L BUN/Creatinine Ratio 25.6 H Glucose 142 H Calcium 10.3 H Troponin I High Sens 13 12 TSH 4.340 H Free T4 0.97 Free T3 pg/dL 2.3 Radiography Diagnostic Testing: Clinical Impression(s) from Imaging Studies Brain CT 06/28/24 18:08 IMPRESSION: No acute findings in the head/brain. Electronically Signed: Denny Leach MD at 19:54 EST , Chest X-Ray 06/28/24 18:08 IMPRESSION: No acute findings in the chest. Electronically Signed: Denny Leach MD at 20:11 EST , Discharge Plan Triage Chief Complaint: Syncope Other Complaint: Chest Pain ED Provider: Eric Hernadez Dx/Rx/DC Orders Clinical Impression: Syncope Prescriptions: No Action magnesium oxide 400 MG tablet 400 mg PO DAILY Patient Comments: supplement multivitamin,vc-yrbk-Uw-FA-min 1 EACH tablet 1 ea PO DAILY Patient Comments: vitamin metformin 1,000 MG tablet 1,000 mg PO BIDCM Patient Comments: diabetes/ control blood sugar levels, takes at 1200 pramipexole 0.25 MG tablet 0.25 mg PO QHS Patient Comments: restless legs fluticasone propionate 1 SPRAY spray,suspension 2 spray NASAL DAILY Patient Comments: ALLERGIES fluticasone furoate-vilanterol 1 EACH blister with device 1 puff INHALATION DAILY Patient Comments: INHALE 1 PUFF BY MOUTH ONCE DAILY WITH GOOD ORAL CARE albuterol sulfate 90 mcg/actuation HFA aerosol inhaler 2 puff INHALATION Q4H PRN PRN (Reason: sob & or wheezing) Patient Comments: INHALE 2 PUFFS BY MOUTH EVERY 4 HOURS NEEDED FOR SHORTNESS OF BREATH AND WHEEZING aspirin 81 mg Tablet,Chewable 162 mg PO DAILY ondansetron HCl 4 mg tablet 4 mg PO Q6H PRN (Reason: nausea and vomiting) Qty: 15 0RF atorvastatin 40 mg tablet 40 mg PO QHS bupropion HCl 150 mg tablet extended release 24 hr 150 mg PO DAILY acetaminophen 325 mg Tablet 1,000 mg PO Q6H PRN PRN (Reason: Pain 1-10 Or Fever >100.7) Qty: 0 0RF meclizine 25 mg tablet 25 mg PO TID PRN (Reason: dizziness) Qty: 20 0RF ibuprofen 200 mg tablet 400 mg PO Q6H PRN (Reason: headache) Qty: 20 0RF sacubitril-valsartan [Entresto] 49-51 mg tablet 1 tab PO BID Eliquis 5 mg tablet 5 mg PO Q12H Patient Comments: [NO ORIGINAL SIG] furosemide 40 mg tablet 40 mg PO DAILY potassium chloride 20 mEq tablet,ER particles/crystals 20 meq PO DAILY Mounjaro 5 mg/0.5 mL pen injector 5 mg subcut QWEEK Patient Comments: monday metoprolol succinate 25 mg tablet extended release 24 hr 25 mg PO DAILY Patient Comments: [NO ORIGINAL SIG] budesonide 1 mg/2 mL suspension for nebulization 1 mg inhalation BID cholecalciferol (vitamin D3) 25 mcg (1,000 unit) capsule 1,000 unit PO DAILY Primary Care Provider: Roberto Carlos Fernandes Referrals: Roberto Carlos Fernandes MD [Primary Care Provider] - Print Language: Macedonian Disposition Disposition: Acute Care Hospital [facility]
[2024-06-28] MEDS: 0.9% Normal Saline (250mL Bag) 250 ML 999 ML IV (18:42)
[2024-06-28 18:54] LABS: Partial Thromboplast Time 28.3 Seconds (24.1-36.2)
[2024-06-28 18:56] LABS: Absolute Lymphocyte Count 1.63 X10^3/uL (0.83-4.51); Absolute Neutrophil Count 5.8 X10^3/uL (2.0-7.7); Basophil# 0.05 X10^3/uL; Basophil% 0.6 % (0-1); Eosinophil# 0.32 X10^3/uL; Eosinophils% 3.8 % (0-5); Hematocrit 49.1 % (40-54); Hemoglobin 15.2 g/dL (13.0-16.5); Lymphocyte # 1.63 X10^3/ul (0.83-4.51); Lymphocyte % 19.4 % (19-41); Mean Corpuscular Hgb 26.8 pg (27.0-32.0); Mean Corpuscular Volume 86.4 fL (80-94); Mean Platelet Vol. 10.7 fl (6.2-12.0); Monocyte# 0.62 X10^3/uL; Monocyte% 7.4 % (0-10); NRBC Flagged by Analyzer 0 % (0-5); Neutrophil # 5.75 X10^3/uL (2.7-7.7); Neutrophil % 68.3 % (47-70); Platelet Count 226 K/mm3 (150-450); RBC Distribution Width CV 16.1 % (11.6-14.6); RBC Distribution Width SD 49.2 fl (35.1-43.9); Red Blood Count 5.68 M/mm3 (4.6-6.2); White Blood Count 8.4 K/mm3 (4.4-11.0)
[2024-06-28 19:05] LABS: Anion Gap 8 (5-15); BUN 33 mg/dL (7-18); BUN/Creat Ratio 25.6 RATIO (10-20); Calcium,Total 10.3 mg/dL (8.5-10.1); Chloride 109 mmol/L (98-107); Creatinine, Serum 1.29 mg/dL (0.70-1.30); EST Glomerular Filtration Rate 58 mL/min (>60); Est Glom Filt Rate - Afr Amer 70 mL/min (>60); Glucose 142 mg/dL (74-106); Potassium 4.1 mmol/L (3.5-5.1); Sodium Level 141 mmol/L (136-145); Troponin-I HS (w/2H Reflex) 13 pg/mL (3.0-78.0)
[2024-06-28 19:08] LABS: International Normalized Ratio 1.2
[2024-06-28 19:58] LABS: Free T3 2.3 pg/mL (2.18-3.98); T4 Free Direct 0.97 ng/dL (0.76-1.46)
[2024-06-28 20:27] LABS: Reflex Troponin-HS? (from REC) Y
[2024-06-28 21:04] LABS: Troponin-I HS 12 pg/mL (3.0-78.0)
--- NOTE | 2024-06-28 22:51 | PCM.HP.STD ---
[facility] Date of Admission: 06/28/24 Date of Service: 06/28/24 Chief Complaint: Headache, Lightheadedness and Syncope. [facility] Narrative ALEM ROSS, is a 74 M with a past medical history of essential hypertension; on metoprolol, sacubitril-valsartan and furosemide, hyperlipidemia; on atorvastatin, obesity; with BMI of 30.2 this admission, SIVAKUMAR; on CPAP, DM-2; on metformin and tirzepatide, history of bicuspid aortic valve; s/p aortic valve repair at [facility] (2014), CAD; s/p CABG in March 2024 at [facility], chronic systolic CHF; with LVEF ~26%, chronic LBBB (07/2023), history of thoracic aortic aneurysm; s/p repair, history of PE after shoulder replacement surgery (2020); on apixaban, history of asthma/COPD; without tobacco abuse, history of vision loss in Left eye, RLS; on pramipexole, chronic vertigo; on prn meclizine, depression with anxiety; on bupropion, history of COVID-19 (~06/2023), history of diverticulitis, history of hiatal hernia, history of renal calculi; s/p cystoscopy with Left ureteral stent (2021), RA, history of stage-I sacral pressure ulcer, OA; with stenosis of lumbosacral spine causing chronic back pain on ibuprofen for 400 mg p.o. every 6 hours as needed and previous admission here from August 07, 2023 to August 08, 2023 for treatment of an acute exacerbation of his chronic vertigo with dizziness and giddiness due to suspected BPPV with negative MRI and otherwise unrevealing workup who presents to [facility] ER complaining of headache, lightheadedness and syncope. Mr. Ross reports his symptoms began a few days ago when he was told he could no longer participate in cardiac rehabilitation because of severe tachycardia. He then saw his splicing technician who had a patient monitor placed which he is still wearing at this time. Earlier today they went to [facility] as directed by his splicing technician due to his poor LVEF they were titrating drugs to see what type of therapy he needs to be on. Unfortunately, after waiting for ~6 hours they left that institution because they did not have any beds. They state they then went home and called the splicing technician back and he advised them to go to [facility] - which they did - but they found out that [facility] does not do the titration of drugs they required, so they left their too. He then returned home and was sitting in his chair when he states he suddenly became very lightheaded and thought he was going to pass out so he lowered himself to the ground out of his recliner where he passed out for approximately ~30-60 seconds before regaining consciousness. There was no report of tonic-clonic seizure activity, tongue biting, loss of bowel or bladder continence, postictal period of confusion or sensation of spinning but he did admit to 'tunnel vision' just prior to losing consciousness along with a generalized tension-type headache after this episode so he decided to come here for further evaluation and treatment as they want to start a relationship with [facility]. He additionally denies related fever, chills, nausea, vomiting, diarrhea, constipation, abdominal pain, shortness of breath, wheezing, dysuria, hematuria, paresthesias or rash - but he does admit to intermittent bouts of chest pain recently, but none today. In the ER he was diagnosed with Syncope complicated by laboratory evidence of dehydration with elevated BUN/creatinine ratio of 25.6 present on admission complicated by Tension-type Headache with his wearable patient monitor unable to be interrogated as the device apparently has to be sent into the [employer] to extract data with an EKG in ER revealing sinus tachycardia of 103 bpm with continued evidence of chronic LBBB which is essentially unchanged from his previous EKG in July 2023. He was then admitted to the PCU under observation status for ongoing care for a stay that is expected to be less than 2 midnights. [facility] Medical History (Updated 06/28/24 @ 23:[address] Camron Cummins, DO) Stenosis of lumbosacral spine Lumbar disc disease First degree AV block Asthma Blindness of left eye Rheumatoid arthritis History of pulmonary embolism History of kidney stones Hiatal hernia History of diverticulitis Continuous positive airway pressure dependent Limited mobility Pressure ulcer of sacral region, stage 1 Depression Anxiety Abrasion Pulmonary embolism Restless legs Back pain Syncope Dietary restriction History of hiatal hernia History of ulceration History of diverticulitis Non-smoker History of edema History of echocardiogram History of stress test Cardiology follow-up encounter Vision loss of left eye Rheumatoid arthritis Kidney stones CPAP (continuous positive airway pressure) dependence Asthma Pulmonary embolism H/O bicuspid aortic valve Post-op pneumonia Diabetes COPD (chronic obstructive pulmonary disease) Hypertension Dizziness Diabetes mellitus Sleep apnea Obesity Hypertension Depression Home Medications ?Medication ?Instructions ?Recorded ?Last Taken ?Type magnesium oxide 400 mg (241.3 mg 400 mg PO DAILY supplement 11/25/14 02/24/16 History magnesium) tablet metformin 1,000 mg tablet 1,000 mg PO BIDCM diabetes 11/25/14 Unknown History multivitamin,wl-gygv-Gm-FA-min 1 ea PO DAILY vitamin 11/25/14 02/24/16 History pramipexole 0.25 mg tablet 0.25 mg PO QHS restless legs 11/25/14 02/23/16 History fluticasone propionate 50 2 spray DAILY allergies 02/24/16 02/24/16 History mcg/actuation nasal spray,suspension fluticasone furoate 200 1 puff inhalation DAILY breathing 03/25/20 Unknown History mcg-vilanterol 25 mcg/dose inhalation powder albuterol sulfate 90 mcg/actuation 2 puff inhalation Q4H PRN PRN sob 02/27/21 12/15/21 07:30 History aerosol inhaler & or wheezing aspirin 81 mg chewable tablet 162 mg PO DAILY heart health 12/11/21 12/13/21 History ondansetron HCl 4 mg tablet 4 mg PO Q6H PRN nausea and 05/04/22 Unknown Rx vomiting #15 tabs atorvastatin 40 mg tablet 40 mg PO QHS cholesterol 08/07/23 Unknown History bupropion HCl 150 mg 24 hr tablet, 150 mg PO DAILY mental health 08/07/23 Unknown History extended release acetaminophen 325 mg tablet 1,000 mg (3.0769 x 325 mg) PO Q6H 08/08/23 Unknown Rx PRN PRN Pain 1-10 Or Fever >100.7 #0 tabs ibuprofen 200 mg tablet 400 mg (2 x 200 mg) PO Q6H PRN 08/08/23 Unknown Rx headache #20 tabs meclizine 25 mg tablet 25 mg PO TID PRN dizziness #20 tabs 08/08/23 Unknown Rx apixaban 5 mg tablet (Eliquis) 5 mg PO Q12H 06/28/24 Unknown History budesonide 1 mg/2 mL suspension 1 mg inhalation BID 06/28/24 Unknown History for nebulization cholecalciferol (vitamin D3) 25 1,000 unit PO DAILY 06/28/24 Unknown History mcg (1,000 unit) capsule furosemide 40 mg tablet 40 mg PO DAILY 06/28/24 Unknown History metoprolol succinate 25 mg 25 mg PO DAILY 06/28/24 Unknown History tablet,extended release 24 hr potassium chloride 20 mEq 20 meq PO DAILY 06/28/24 Unknown History tablet,extended release(part/cryst) sacubitril 49 mg-valsartan 51 mg 1 tab PO BID 06/28/24 Unknown History tablet (Entresto) tirzepatide 5 mg/0.5 mL 5 mg subcut QWEEK 06/28/24 Unknown History subcutaneous pen injector (Mounjaro) Allergy/AdvReac Type Severity Reaction Status Date / Time erythromycin base AdvReac Diarrhea Verified 06/28/24 17:56 oxycodone (From Percocet) AdvReac Other Verified 06/28/24 17:56 tramadol AdvReac Other Verified 06/28/24 17:56 Surgical History (Updated 06/28/24 @ 23:[address] aCmron Cummins DO) History of coronary artery bypass graft S/P aortic valve repair Hx of cystoscopy History of thoracic aortic aneurysm repair H/O shoulder replacement Status post reverse total shoulder replacement Social History Smoking Status: Never smoker ROS ROS Narrative Review of Systems: Constitutional: Patient admits to lightheadedness and dizziness with headache but he denies fever or chills. Eyes: Patient admits to ' tunnel vision' just prior to his syncopal event but he denies discharge from eyes. ENT: Patient denies runny nose, sore throat or ear pain. Resp: Patient denies shortness of breath or cough. CV: Patient admits to recent intermittent chest pain but he denies chest pain at this time, palpitations or heart racing. GI: Patient denies abdominal pain, nausea, vomiting, diarrhea or constipation. : Patient denies dysuria or hematuria. MSK: Patient denies arthralgias or myalgias. Skin: Patient denies rash, abscess or jaundice. Psych: Patient denies symptoms of uncontrolled depression or anxiety. Neuro: Patient admits to headache and lightheadedness but he denies paresthesias or focal neurologic deficits. Allergy: Patient denies lip swelling, tongue swelling or urticaria. Hematology: Patient denies easy bleeding or easy bruisability. Endocrinology: Patient denies polyuria, polydipsia or polyphagia 14 point review systems otherwise negative except for positives noted above in HPI. Vital Signs Vital Signs Vital Signs: 06/28/24 17:56 06/28/24 18:08 06/28/24 18:56 Temperature 98.7 F Temperature Source Oral Pulse Rate 108 H 100 Pulse Rate [Lying] Pulse Rate [Sitting (for 1 minute prior to obtaining)] Pulse Rate [Standing (for 1 minute prior to obtaining)] Respiratory Rate 16 16 Blood Pressure 130/106 H 115/87 H Blood Pressure [Lying] Blood Pressure [Sitting (for 1 minute prior to obtaining)] Blood Pressure [Standing (for 1 minute prior to obtaining)] Blood Pressure Mean 114 96 Blood Pressure Mean [Lying] Blood Pressure Mean [Sitting (for 1 minute prior to obtaining)] Blood Pressure Mean [Standing (for 1 minute prior to obtaining)] Pulse Ox 98 95 Oxygen Delivery Method Room Air Room Air Room Air 06/28/24 19:00 06/28/24 20:00 06/28/24 21:00 Temperature Temperature Source Pulse Rate 93 88 92 Pulse Rate [Lying] Pulse Rate [Sitting (for 1 minute prior to obtaining)] Pulse Rate [Standing (for 1 minute prior to obtaining)] Respiratory Rate 18 18 17 Blood Pressure 120/77 103/73 Blood Pressure [Lying] Blood Pressure [Sitting (for 1 minute prior to obtaining)] Blood Pressure [Standing (for 1 minute prior to obtaining)] Blood Pressure Mean 91 83 Blood Pressure Mean [Lying] Blood Pressure Mean [Sitting (for 1 minute prior to obtaining)] Blood Pressure Mean [Standing (for 1 minute prior to obtaining)] Pulse Ox 98 96 98 Oxygen Delivery Method Room Air Room Air Room Air 06/28/24 21:48 06/28/24 22:14 Temperature Temperature Source Pulse Rate 93 Pulse Rate [Lying] 83 Pulse Rate [Sitting (for 1 minute prior to obtaining)] 95 Pulse Rate [Standing (for 1 minute prior to obtaining)] 106 H Respiratory Rate 18 Blood Pressure 109/72 Blood Pressure [Lying] 127/114 H Blood Pressure [Sitting (for 1 minute prior to obtaining)] 105/82 H Blood Pressure [Standing (for 1 minute prior to obtaining)] 109/94 H Blood Pressure Mean 84 Blood Pressure Mean [Lying] 118 Blood Pressure Mean [Sitting (for 1 minute prior to obtaining)] 89 Blood Pressure Mean [Standing (for 1 minute prior to obtaining)] 99 Pulse Ox 96 Oxygen Delivery Method Room Air Weight Weight: 235 lb 7.259 oz Body Mass Index (BMI) 30.2 Physical Exam Const alert, oriented x3, no apparent distress and average body habitus Constitutional Narrative: Patient appears chronically ill. General Appearance: cooperative HEENT normocephalic, head/scalp atraumatic, hearing grossly normal bilaterally and moist oral mucous membranes Eyes PERRL and EOMs intact bilaterally Neck no lymphadenopathy and supple Resp normal respiratory effort, no retractions, no use of accessory muscles and clear to auscultation bilaterally Cardio regular rate and regular rhythm GI normal to inspection, nondistended, normoactive bowel sounds, soft to palpation, non-tender and non-distended GI Narrative: Obese. Extremity normal to inspection, full ROM and no clubbing, cyanosis or edema Skin Skin Narrative: Patient is no evidence of rash, abscess or jaundice. Neuro oriented x3, CN's II-XII intact bilaterally, moves all extremities and no focal motor deficits Sensorium / Orientation: awake, alert, oriented to person, oriented to place and oriented to time Speech: speech normal Psych affect normal Results Medical Records Data Attestation: I reviewed the patient's medical records Lab / Micro Data Attestation: I reviewed the patient's lab results. 06/29/24 05:06 06/29/24 05:06 Labs: Laboratory Results - last 24 hr 06/28/24 18:24: WBC 8.4, RBC 5.68, Hgb 15.2, Hct 49.1, MCV 86.4, MCH 26.8 L, MCHC 31.0 L, RDW Std Deviation 49.2 H, RDW Coeff of Cristal 16.1 H, Plt Count 226, MPV 10.7, Immature Gran % (Auto) 0.500, Neut % (Auto) 68.3, Lymph % (Auto) 19.4, [place]ler % (Auto) 7.4, Eos % (Auto) 3.8, Baso % (Auto) 0.6, Absolute Neuts (auto) 5.8, Absolute Lymphs (auto) 1.63, Nucleated RBC % 0, PT 15.0 H, INR 1.2, APTT 28.3, Sodium 141, Potassium 4.1, Chloride 109 H, Carbon Dioxide 24.0, Anion Gap 8, BUN 33 H, Creatinine 1.29, Est GFR (MDRD) Af Amer 70, Est GFR (MDRD) Non-Af 58 L, BUN/Creatinine Ratio 25.6 H, Glucose 142 H, Calcium 10.3 H, Troponin I High Sens 13, TSH 4.340 H, Free T4 0.97, Free T3 pg/dL 2.3 06/28/24 20:15: Troponin I High Sens 12 Imaging Radiology Impression Brain CT 06/28/24 18:08 IMPRESSION: No acute findings in the head/brain. Electronically Signed: Denny Leach MD at 19:54 EST , Chest X-Ray 06/28/24 18:08 IMPRESSION: No acute findings in the chest. Electronically Signed: Denny Leach MD at 20:11 EST , Assessment & Plan Assessment/Plan (1) Syncope: QUALIFIERS: Syncope type: unspecified Qualified Code(s): R55 - Syncope and collapse (2) S/P aortic valve repair: (3) History of coronary artery bypass graft: (4) Chronic bundle branch block: (5) Chronic systolic CHF (congestive heart failure): (6) Tension type headache: QUALIFIERS: Headache chronicity pattern: acute headache Intractability: not intractable Qualified Code(s): G44.209 - Tension-type headache, unspecified, not intractable (7) Obesity (BMI 30.0-34.9): (8) Benign paroxysmal positional vertigo: QUALIFIERS: Laterality: unspecified laterality Qualified Code(s): H81.10 - Benign paroxysmal vertigo, unspecified ear PLAN: Plan 1. Syncope; in the setting of complex cardiac history consisting of bicuspid aortic valve; aortic valve repair; s/p (2014), CAD; s/p CABG in March 2024 at [facility], Chronic Systolic CHF; with LVEF ~26% and chronic LBBB (07/2023) with patient recently canceled from continuing cardiac rehabilitation due to intermittent tachycardia (possibly due to his albuterol) - Admit to PCU under observation status. Place on continuous patient monitor to evaluate for possible intermittent arrhythmia. Serialize troponin. Check echocardiogram to evaluate LVEF. Check carotid Doppler to evaluate for stenosis. Finally, we will consult [facility] see this patient on rounds in the a.m. for further recommendations with help appreciated in advance. 2. Mild dehydration evidenced by elevated BUN/creatinine ratio of 25.6 present on admission likely at least partially causing #1 - Gently hydrate given patient's history of severe systolic CHF and recheck renal indices in AM to monitor for improvement. 3. Tension-type headache complicating #1 & #2 - Give Tylenol prn for pain or fever. 4. Obesity; with BMI of 30.2 this admission and SIVAKUMAR; on CPAP compounding #1 - #3 - Weight loss will be recommended. Check TSH. Resume nocturnal CPAP as before. 5. Previous admission here from August 07, 2023 to August 08, 2023 for treatment of an acute exacerbation of his chronic vertigo with dizziness and giddiness due to suspected BPPV with negative MRI and otherwise unrevealing workup adding to the medical complexity of #1 - #4 - Patient denies vertiginous symptoms this admission. Continue as needed meclizine if they recur. 6. Essential Hypertension; on metoprolol, sacubitril-valsartan and furosemide - Hold furosemide in light of #2 but otherwise maintain home regimen as previous. 7. Hyperlipidemia; on atorvastatin - Continue statin and check Lipid Profile in light of #1. 8. DM-2; on metformin and tirzepatide - Hold metformin and tirzepatide while admitted. ADA/cardiac diet. FSBS q. AC/HS plus SSI. Check HgbA1c to objectively assess quality of diabetic control. 9. History of thoracic aortic aneurysm; s/p repair - Noted. 10. History of PE after shoulder replacement surgery (2020); on apixaban - Continue apixaban as previous. 11. History of asthma/COPD; without tobacco abuse - Stable with no evidence of acute flare at this time. Continue scheduled and as needed nebulizers and inhalers. 12. History of vision loss in Left eye - Noted. 13. RLS; on pramipexole - Maintain on pramipexole as previous. 14. Depression with anxiety; on bupropion - Continue current regimen. 15. History of COVID-19 (~06/2023) - Noted. 16. History of diverticulitis - Noted. 17. History of hiatal hernia - Noted. 18. History of renal calculi; s/p cystoscopy with Left ureteral stent (2021) - Noted. 19. RA - Chronic and apparently stable with no evidence of acute flare at this time. 20. History of stage I sacral pressure ulcer - Noted. 21. OA; with stenosis of lumbosacral spine causing chronic back pain on ibuprofen for 400 mg p.o. every 6 hours as needed - Hold ibuprofen and use acetaminophen as needed for pain or fever. 22. DVT prophylaxis - Patient on apixaban for #9 which will be continued. Total time: Approximately (but not less than) 85 minutes. Charges/Coding Visit Charges OBSV E&M: 27962 Observ/hosp same date L3
[2024-06-28 23:51] LABS: BNP,B-Type NATRIURETIC PEPTIDE 344.7 pg/mL (0-100)
[2024-06-29] VITALS (11 sets, daily range): BP systolic 104–132; BP diastolic 65–94; PULSE 63–95; RESP 15–24; TEMP 36.3–36.9; O2SAT 94–98
--- NOTE | 2024-06-29 00:28 | ECHOCS_ITS ---
Reason For Study: Syncope Procedure This was a 2D Doppler, Color Flow transthoracic echocardiogram. Contrast injection was performed. Exam performed portable in patient room. Left Ventricle Normal LV thickness. Mildly dilated left ventricular cavity. Severe generalized LV hypokinesis. Estimated LVEF 15 to 20%. Right Ventricle Normal right ventricle. Atria The left and right atria are normal. Mitral Valve Trivial mitral valve insufficiency. Tricuspid Valve Trivial tricuspid valve insufficiency. Normal pulmonary artery pressure. Aortic Valve Bioprosthetic aortic valve functioning normally. Trivial regurgitation. Pulmonic Valve The pulmonic valve is not well visualized. Great Vessels Normal sized aortic root. Pericardium/Pleural Small loculated posterior pericardial effusion. Medication Diluted definity 1ml given slow IV push to enhance endocardial definition. MMode/2D Measurements & Calculations LVIDd: 6.1 cm IVSd: 0.78 cm LVOT diam: 2.0 cm LVIDs: 5.3 cm LVPWd: 0.83 cm RVDd: 4.3 cm FS: 12.6 % LVOT area: 3.1 cm2 Ao root diam: 3.0 cm LAV(MOD-bp): 61.7 ml LVAd ap4: 48.2 cm2 LAV(MOD-bp) Indexed: 26.9 ml/m2 LVLd ap4: 9.7 cm LAV(MOD-sp2): 60.5 ml EDV(MOD-sp4): 194.7 ml LAV(MOD-sp4): 56.8 ml EDV(sp4-el): 203.4 ml LVAs ap4: 40.9 cm2 LVLs ap4: 9.2 cm ESV(MOD-sp4): 147.1 ml ESV(sp4-el): 153.7 ml EF(MOD-sp4): 24.4 % EF(sp4-el): 24.4 % SV(MOD-sp4): 47.6 ml SV(sp4-el): 49.7 ml LA A4 area: 20.0 cm2 SI(MOD-sp4): 20.8 ml/m2 LA dimension(2D): 4.4 cm RA A4 area: 16.6 cm2 TAPSE: 1.8 cm Doppler Measurements & Calculations MV E max mackenzie: 80.5 cm/sec MV V2 max: 101.7 cm/sec Ao V2 max: 173.0 cm/sec MV max P.2 mmHg Ao max P.1 mmHg MV V2 mean: 61.6 cm/sec Ao V2 mean: 115.1 cm/sec MV mean P.8 mmHg Ao mean P.3 mmHg MV V2 VTI: 24.5 cm Ao V2 VTI: 25.4 cm MVA(VTI): 2.1 cm2 AV (velocity ratio): 0.64 HOLLIE(I,D): 2.0 cm2 HOLLIE(V,D): 1.8 cm2 LV V1 max: 98.6 cm/sec SV(LVOT): 50.9 ml PA V2 max: 132.8 cm/sec LV V1 max P.9 mmHg PA V2 mean: 78.6 cm/sec LV V1 mean P.1 mmHg LV V1 mean: 67.5 cm/sec LV V1 VTI: 16.2 cm TR max mackenzie: 226.6 cm/sec TR max P.5 mmHg ECHO/Echo Complete W/ Contrast Interpretation Summary Mildly dilated left ventricular cavity. Severe generalized LV hypokinesis. Sofia mated LVEF 15 to 20%. Bioprosthetic aortic valve functioning normally. Trivial regurgitation. Small loculated posterior pericardial effusion. Ordering Physician: Camron Cummins Referring Physician: Camron Cummins Performed By: Jose Miguel Ya RCS
[2024-06-29] MEDS: 0.9% Normal Saline (1000mL) 1,000 ML 50 ML IV (00:36)
[2024-06-29 01:40] LABS: Cholesterol 126 mg/dL (200); High Density Lipoprotein 38 mg/dL; Triglycerides 112 mg/dL; Troponin-I HS 16 pg/mL (3.0-78.0); Very Low Density Lipoprotein 22 mg/dL (5-40)
[2024-06-29 01:45] LABS: Bacteria 0 SEEN /hpf (None Seen); Mucous, Urine 0 SEEN /hpf (<or=2+); Red Blood Cells-Urine 0 SEEN /hpf (0-5); Squamous Epithelial Cells - UA 0 SEEN /hpf (0-5); White Blood Cells 0 SEEN /hpf (0-5)
[2024-06-29 01:47] LABS: Color, Urine Yellow (Yellow); Glucose, Dipstick Normal (Normal); Ketone-Dipstick Negative (Negative); Leukocyte Esterase-Dipstick Negative /ul (Negative); Nitrite-Dipstick Negative (Negative); Occult Blood-Urine Negative /ul (Negative); Protein-Dipstick 15 mg/dl (Negative); Urine Bilirubin Dipstick Negative (Negative); Urine Clarity Clear (Clear); Urine Urobilinogen Normal (Normal)
--- NOTE | 2024-06-29 02:51 | EKG12_ITS ---
Test Reason : ARHYTHMIA Blood Pressure : */* mmHG Vent. Rate : 89 BPM Atrial Rate : 89 BPM P-R Int : * ms QRS Dur : 172 ms QT Int : 432 ms P-R-T Axes : * 31 228 degrees QTcB Int : 525 ms atrial flutter Left bundle branch block Abnormal ECG When compared with ECG of 28-Jun-2024 18:03, MANUAL COMPARISON REQUIRED DATA IS UNCONFIRMED Confirmed by MARIANELA ALFARO, PORTER ([id number]), assignment desk editor YAEL GARCIA ([id number]) on 07/01/2024 10:59:50 AM Referred By: Camron Cummins Confirmed By: PORTER BEAR MD
[2024-06-29 05:23] LABS: Absolute Lymphocyte Count 1.55 X10^3/uL (0.83-4.51); Absolute Neutrophil Count 5.7 X10^3/uL (2.0-7.7); Basophil# 0.07 X10^3/uL; Basophil% 0.8 % (0-1); Eosinophil# 0.32 X10^3/uL; Eosinophils% 3.8 % (0-5); Hematocrit 45.6 % (40-54); Hemoglobin 14.2 g/dL (13.0-16.5); Lymphocyte # 1.55 X10^3/ul (0.83-4.51); Lymphocyte % 18.5 % (19-41); Mean Corp Hgb Conc 31.1 g/dL (32-36); Mean Corpuscular Hgb 26.7 pg (27.0-32.0); Mean Corpuscular Volume 85.9 fL (80-94); Mean Platelet Vol. 10.4 fl (6.2-12.0); Monocyte# 0.75 X10^3/uL; Monocyte% 8.9 % (0-10); NRBC Flagged by Analyzer 0 % (0-5); Neutrophil # 5.65 X10^3/uL (2.7-7.7); Neutrophil % 67.5 % (47-70); Platelet Count 203 K/mm3 (150-450); RBC Distribution Width CV 15.7 % (11.6-14.6); RBC Distribution Width SD 48.8 fl (35.1-43.9); Red Blood Count 5.31 M/mm3 (4.6-6.2); White Blood Count 8.4 K/mm3 (4.4-11.0)
[2024-06-29 05:47] LABS: ALB/GLOB Ratio 1.2 RATIO (0.9-2.4); AST(SGOT) 26 U/L (15-37); Alanine Aminotransfer ALT/SGPT 44 U/L (16-61); Albumin, Serum 3.4 g/dL (3.2-5.0); Alkaline Phosphatase 82 U/L (45-117); Anion Gap 7 (5-15); BUN 30 mg/dL (7-18); BUN/Creat Ratio 28.3 RATIO (10-20); Calcium,Total 9.7 mg/dL (8.5-10.1); Chloride 112 mmol/L (98-107); Creatinine, Serum 1.06 mg/dL (0.70-1.30); EST Glomerular Filtration Rate 73 mL/min (>60); Est Glom Filt Rate - Afr Amer 88 mL/min (>60); Estimated Creatinine Clearance 77.19 ml/min; Globulin 2.9 g/dL (2.2-4.2); Glucose 117 mg/dL (74-106); Magnesium 1.8 mg/dL (1.6-2.6); Phosphorus 3.6 mg/dL (2.5-4.9); Potassium 4.2 mmol/L (3.5-5.1); Protein, Total 6.3 g/dL (6.4-8.2); Sodium Level 140 mmol/L (136-145)
[2024-06-29 07:01] LABS: Bedside Glucose 119 mg/dL (74-106)
[2024-06-29] MEDS: Budesonide Respules 0.5 MG/2 ML AMPUL.NEB. INHALATION ×2 (07:48→20:28)
[2024-06-29] MEDS: Albuterol 2.5 MG/3 ML VIAL.NEB. INHALATION ×3 (07:48→20:28)
[2024-06-29 08:19] LABS: Hemoglobin A1c 5.9 % (3.8-5.6)
[2024-06-29] MEDS: Aspirin 81 MG TAB.CHEW 162 MG PO (09:20)
[2024-06-29] MEDS: Potassium Chloride Oral Tablet 20 MEQ PO (09:21)
[2024-06-29] MEDS: Multivitamins,Ther W-Minerals Tablet 1 TABLET PO (09:21)
[2024-06-29] MEDS: Metoprolol(XL)Succ 25 MG Tablet PO (10:59)
[2024-06-29] MEDS: Fluticasone 0.05% 1 SPRAY NASAL.SRY 2 SPRAY NASAL (10:59)
[2024-06-29] MEDS: Magnesium Chloride 64 MG Delay Rel.Tablet 128 MG PO (11:00)
[2024-06-29] MEDS: SACUBITRIL/VALSARTAN 49-51 MG TABLET 1 EACH PO (11:00)
[2024-06-29] MEDS: buPROPion (XL) 150 MG TABLET.XL PO (11:00)
[2024-06-29] MEDS: Cholecalciferol (VIT D3) 25 MCG TABLET (1,000 UNITS) PO (11:00)
[2024-06-29 12:12] LABS: Bedside Glucose 111 mg/dL (74-106)
[2024-06-29] MEDS: APIXABAN 5 MG TABLET PO ×2 (14:25→21:31)
--- NOTE | 2024-06-29 15:59 | PCM.DC ---
Discharge Instructions Diet Discharge Diet: Low fat / Low cholesterol, 6 Cup Fluid Restriction, 2000 mg Sodium Diet and Carb Control Diet DC O2, CPAP, BIPAP needs Home O2 Discharge instructions: No Dressing / Incision Discharge Activity: Return to Normal Activity Dressing / Incision Call your doctor if you observe: Fever of 101 or Higher, Shortness of breath, Dizziness, Fainting spells, Swelling in the ankles, Chest pain and Increased palpitations (irregular heartbeat) Follow Up Care Test Results: Test results from this visit will be discussed in further detail at your follow-up appointment, if applicable. Discharge Plan Admission Admit Date/Time: 06/28/24 23:50 Attending Provider: Tristan Bermeo Primary Care Provider: Roberto Carlos Fernandes Consulting Providers: Camron Cummins; Roderick Waggoner; Kasey Horner; Yvonne López; Stephane Kraus; Brendon Leach; Neeru Ortiz; Dakota Edgar; Gera Kovacs; Amor Schaefer; Jose Caruso; Jarocho Bal NP; Alessia Alston; Mauro Kulkarni Instructions Additional Instructions / Restrictions: Notify your junior sales assistant that you will be taking half of your Entresto pill twice a day. Also recommend increasing your allotted liquids from 20 ounces to 48 ounces Discharge Orders/Prescriptions Prescriptions: Continued magnesium oxide 400 MG tablet 400 mg PO DAILY Patient Comments: supplement multivitamin,vd-arwa-Yl-FA-min 1 EACH tablet 1 ea PO DAILY Patient Comments: vitamin metformin 1,000 MG tablet 1,000 mg PO BIDCM Patient Comments: diabetes/ control blood sugar levels, takes at 1200 pramipexole 0.25 MG tablet 0.25 mg PO QHS Patient Comments: restless legs fluticasone propionate 1 SPRAY spray,suspension 2 spray NASAL DAILY Patient Comments: ALLERGIES fluticasone furoate-vilanterol 1 EACH blister with device 1 puff INHALATION DAILY Patient Comments: INHALE 1 PUFF BY MOUTH ONCE DAILY WITH GOOD ORAL CARE albuterol sulfate 90 mcg/actuation HFA aerosol inhaler 2 puff INHALATION Q4H PRN PRN (Reason: sob & or wheezing) Patient Comments: INHALE 2 PUFFS BY MOUTH EVERY 4 HOURS NEEDED FOR SHORTNESS OF BREATH AND WHEEZING aspirin 81 mg Tablet,Chewable 162 mg PO DAILY ondansetron HCl 4 mg tablet 4 mg PO Q6H PRN (Reason: nausea and vomiting) Qty: 15 0RF atorvastatin 40 mg tablet 40 mg PO QHS bupropion HCl 150 mg tablet extended release 24 hr 150 mg PO DAILY acetaminophen 325 mg Tablet 1,000 mg PO Q6H PRN PRN (Reason: Pain 1-10 Or Fever >100.7) Qty: 0 0RF meclizine 25 mg tablet 25 mg PO TID PRN (Reason: dizziness) Qty: 20 0RF sacubitril-valsartan [Entresto] 49-51 mg tablet 1 tab PO BID Eliquis 5 mg tablet 5 mg PO Q12H Patient Comments: [NO ORIGINAL SIG] potassium chloride 20 mEq tablet,ER particles/crystals 20 meq PO DAILY Mounjaro 5 mg/0.5 mL pen injector 5 mg subcut QWEEK Patient Comments: monday metoprolol succinate 25 mg tablet extended release 24 hr 25 mg PO DAILY Patient Comments: [NO ORIGINAL SIG] budesonide 1 mg/2 mL suspension for nebulization 1 mg inhalation BID cholecalciferol (vitamin D3) 25 mcg (1,000 unit) capsule 1,000 unit PO DAILY Held furosemide 40 mg tablet 40 mg PO DAILY Hold Instructions: Resume on 07/01/24. Discontinued ibuprofen 200 mg tablet 400 mg PO Q6H PRN (Reason: headache) Qty: 20 0RF Referrals / Follow Up: Roberto Carlos Fernandes MD [Primary Care Provider] - Within 1 Week Disposition Disposition (needs filled in before D/C Order can be placed): Home, Self Care
--- NOTE | 2024-06-29 16:08 | CASEMGMT ---
IGLESIA SALDAÑA in to complete CLARK Form with patient, at bedside. IGLESIA SALDAÑA explained CLARK form to patient and , patient voiced understanding and prefers to sign form. signed CLARK form and filed in chart. Patient provided copy of CLARK form. Therapy in room with patient, no therapy recommended at discharge but patient is still having dizziness. Patient has walker at home. Patient and deny needs at discharge. Patient and had no further questions or concerns.
--- NOTE | 2024-06-29 16:12 | DS.PCM_ITS ---
Providers Date of Admission: 06/29/24 Date of Discharge: 06/30/24 Primary Care Physician: Dr. Roberto Carlos Fernandes MD Consultations 06/29/24 00:28 Consult: Cardiology Routine Consulting Provider: Vincent Poe Reason for Consult: Syncope EMERGENT Consult: No MD Notified: Yes Date Notified: 06/29/24 Time Notified: 07:49 Method of Notification: Text Method of Consult:: In-Person Reason For Visit: SYNCOPE, DEHYDRATION AND EXTENSIVE H/O OF HEART Diagnosis Discharge Diagnosis (1) Syncope: Status: Acute Code(s): R55 - Syncope and collapse Qualifiers: Syncope type: unspecified Qualified Code(s): R55 - Syncope and collapse (2) S/P aortic valve repair: Status: Acute Code(s): Z98.890 - Other specified postprocedural states (3) History of coronary artery bypass graft: Status: Acute Code(s): Z95.1 - Presence of aortocoronary bypass graft (4) Chronic bundle branch block: Status: Acute Code(s): I45.4 - Nonspecific intraventricular block (5) Chronic systolic CHF (congestive heart failure): Status: Chronic Code(s): I50.22 - Chronic systolic (congestive) heart failure (6) Tension type headache: Status: Acute Code(s): G44.209 - Tension-type headache, unspecified, not intractable Qualifiers: Headache chronicity pattern: acute headache Intractability: not intractable Qualified Code(s): G44.209 - Tension-type headache, unspecified, not intractable (7) Obesity (BMI 30.0-34.9): Status: Acute Code(s): E66.811 - Obesity, class 1 (8) Benign paroxysmal positional vertigo: Status: Acute Code(s): H81.10 - Benign paroxysmal vertigo, unspecified ear Qualifiers: Laterality: unspecified laterality Qualified Code(s): H81.10 - Benign paroxysmal vertigo, unspecified ear Medications at Discharge Home Medications magnesium oxide 400 mg (241.3 mg magnesium) tablet 400 mg PO DAILY supplement 11/25/14 metformin 1,000 mg tablet 1,000 mg PO BIDCM diabetes 11/25/14 multivitamin,bz-uwkk-Hu-FA-min 1 ea PO DAILY vitamin 11/25/14 pramipexole 0.25 mg tablet 0.25 mg PO QHS restless legs 11/25/14 fluticasone propionate 50 mcg/actuation nasal spray,suspension 2 spray DAILY allergies 02/24/16 fluticasone furoate 200 mcg-vilanterol 25 mcg/dose inhalation powder 1 puff inhalation DAILY breathing 03/25/20 albuterol sulfate 90 mcg/actuation aerosol inhaler 2 puff inhalation Q4H PRN PRN sob & or wheezing 02/27/21 aspirin 81 mg chewable tablet 162 mg PO DAILY heart health 12/11/21 ondansetron HCl 4 mg tablet 4 mg PO Q6H PRN nausea and vomiting #15 tabs 05/04/22 atorvastatin 40 mg tablet 40 mg PO QHS cholesterol 08/07/23 bupropion HCl 150 mg 24 hr tablet, extended release 150 mg PO DAILY mental health 08/07/23 acetaminophen 325 mg tablet 1,000 mg (3.0769 x 325 mg) PO Q6H PRN PRN Pain 1-10 Or Fever >100.7 #0 tabs 08/08/23 meclizine 25 mg tablet 25 mg PO TID PRN dizziness #20 tabs 08/08/23 apixaban 5 mg tablet (Eliquis) 5 mg PO Q12H blood thinner 06/28/24 budesonide 1 mg/2 mL suspension for nebulization 1 mg inhalation BID breathing 06/28/24 cholecalciferol (vitamin D3) 25 mcg (1,000 unit) capsule 1,000 unit PO DAILY vitamin 06/28/24 furosemide 40 mg tablet 40 mg PO DAILY diuretic 06/28/24 metoprolol succinate 25 mg tablet,extended release 24 hr 25 mg PO DAILY blood pressure 06/28/24 potassium chloride 20 mEq tablet,extended release(part/cryst) 20 meq PO DAILY supplement 06/28/24 sacubitril 49 mg-valsartan 51 mg tablet (Entresto) 1 tab PO BID heart 06/28/24 tirzepatide 5 mg/0.5 mL subcutaneous pen injector (Mounjaro) 5 mg subcut QWEEK diabetes 06/28/24 Hospital Course Operations None Procedures 2-D Echocardiogram Summary of Care Provided Minutes Spent on Discharge: 37 Hospital Course: Per HPI: ALEM ROSS, is a 74 M with a past medical history of essential hypertension; on metoprolol, sacubitril-valsartan and furosemide, hyperlipidemia; on atorvastatin, obesity; with BMI of 30.2 this admission, SIVAKUMAR; on CPAP, DM-2; on metformin and tirzepatide, history of bicuspid aortic valve; s/p aortic valve repair at [facility] (2014), CAD; s/p CABG in March 2024 at [facility], chronic systolic CHF; with LVEF ~26%, chronic LBBB (07/2023), history of thoracic aortic aneurysm; s/p repair, history of PE after shoulder replacement surgery (2020); on apixaban, history of asthma/COPD; without tobacco abuse, history of vision loss in Left eye, RLS; on pramipexole, chronic vertigo; on prn meclizine, depression with anxiety; on bupropion, history of COVID-19 (~06/2023), history of diverticulitis, history of hiatal hernia, history of renal calculi; s/p cystoscopy with Left ureteral stent (2021), RA, history of stage-I sacral pressure ulcer, OA; with stenosis of lumbosacral spine causing chronic back pain on ibuprofen for 400 mg p.o. every 6 hours as needed and previous admission here from August 07, 2023 to August 08, 2023 for treatment of an acute exacerbation of his chronic vertigo with dizziness and giddiness due to suspected BPPV with negative MRI and otherwise unrevealing workup who presents to [facility] ER complaining of headache, lightheadedness and syncope. Mr. Ross reports his symptoms began a few days ago when he was told he could no longer participate in cardiac rehabilitation because of severe tachycardia. He then saw his employee benefits insurance agent who had a acreage reporter placed which he is still wearing at this time. Earlier today they went to [facility] as directed by his employee benefits insurance agent due to his poor LVEF they were titrating drugs to see what type of therapy he needs to be on. Unfortunately, after waiting for ~6 hours they left that institution because they did not have any beds. They state they then went home and called the employee benefits insurance agent back and he advised them to go to [facility] - which they did - but they found out that [facility] does not do the titration of drugs they required, so they left their too. He then returned home and was sitting in his chair when he states he suddenly became very lightheaded and thought he was going to pass out so he lowered himself to the ground out of his recliner where he passed out for approximately ~30-60 seconds before regaining consciousness. There was no report of tonic-clonic seizure activity, tongue biting, loss of bowel or bladder continence, postictal period of confusion or sensation of spinning but he did admit to 'tunnel vision' just prior to losing consciousness along with a generalized tension-type headache after this episode so he decided to come here for further evaluation and treatment as they want to start a relationship with [facility]. He additionally denies related fever, chills, nausea, vomiting, diarrhea, constipation, abdominal pain, shortness of breath, wheezing, dysuria, hematuria, paresthesias or rash - but he does admit to intermittent bouts of chest pain recently, but none today. In the ER he was diagnosed with Syncope complicated by laboratory evidence of dehydration with elevated BUN/creatinine ratio of 25.6 present on admission complicated by Tension-type Headache with his wearable acreage reporter unable to be interrogated as the device apparently has to be sent into the Ezetap to extract data with an EKG in ER revealing sinus tachycardia of 103 bpm with continued evidence of chronic LBBB which is essentially unchanged from his previous EKG in July 2023. He was then admitted to the PCU under observation status for ongoing care for a stay that is expected to be less than 2 midnights. Hospital Course: 1. Syncope secondary to medications/CAD status post CABG and AVR/essential HTN/HLD/paroxysmal A-fib/chronic systolic CHF?74-year-old male presented to the hospital with several episodes of lightheadedness dizziness as well as 2 episodes of syncope in the last 2 weeks. He states that the only thing that changed was an increased dose of his Entresto. I decreased his Entresto by half last night and he received a pill last night and this morning and he is doing much better. He was scheduled for discharge yesterday however with ambulation he had a significant headache and part of his issue for coming and was also having tension headaches. He states that this has resolved today. Nursing did ambulate him around the entire nursing floor without any lightheadedness, dizziness, headache. I discussed with him the plan for discharge today he expressed understanding of the risks and benefits of going home and was amenable to going home today. He will decrease his Entresto to half a tablet twice daily and also increase his fluid restriction from 20 ounces to 48 ounces to help prevent any further dehydration issues. They are considering transferring to a more local employee benefits insurance agent so indicated that they can call the office and ask for the soonest appointment possible. Echo with an EF of 15 to 20% which is consistent with his baseline since November of this year. Will hold his Lasix for another 24 hours and will continue with his metoprolol to control his A-fib. 2. Type 2 diabetes, COPD are chronic medical conditions which complicate his care. His home medications were continued where appropriate Physical Exam Narrative General: Alert, Oriented x3, Cooperative, No apparent distress HEENT: Atraumatic, PERRLA, EOMI, Normocephalic Oral: Moist Mucosa Neck: Supple, No JVD Lungs: Clear to auscultation, Normal air movement, No rhonchi, No wheeze, No rales Cardiovascular: Regular rate, Regular Rhythm, Normal S1, Normal S2, No murmurs Abdomen: Soft, Non Tender, Non-Distended, No Hepato-splenomegaly Extremities: No edema, Capillary Refill Less than 3 Seconds Skin: No rashes, No breakdown Musculoskeletal: No Tenderness to Palpation of Joints or Extremities Neurological: No focal neurological deficits, Motor Exam 5/5 strength throughout, Sensory exam intact to light touch and pain Psych/Mental Status: Normal Affect, Appropriate Weight / BMI Weight Weight: 227 lb 11.8 oz Body Mass Index (BMI) 30.0 ABG / Lab / Microbiology Data 06/29/24 05:06 06/29/24 05:06 Laboratory: Laboratory Results - last 24 hr 06/29/24 11:54: POC Glucose 111 H 06/29/24 16:49: POC Glucose 112 H 06/29/24 21:56: POC Glucose 120 H 06/30/24 07:02: POC Glucose 117 H Microbiology: Microbiology 06/28/24 22:57 Mucosa - Nose SARS-CoV-2, Influenza & RSV (PCR) - Final Radiography Diagnostic Testing: Radiology Impression Brain CT 06/28/24 18:08 IMPRESSION: No acute findings in the head/brain. Electronically Signed: Denny Leach MD at 19:54 EST , Chest X-Ray 06/28/24 18:08 IMPRESSION: No acute findings in the chest. Electronically Signed: Denny Leach MD at 20:11 EST , Echocardiogram 06/29/24 00:28 Interpretation Summary Mildly dilated left ventricular cavity. Severe generalized LV hypokinesis. Estimated LVEF 15 to 20%. Bioprosthetic aortic valve functioning normally. Trivial regurgitation. Small loculated posterior pericardial effusion. Ordering Physician: Camron Cummins Referring Physician: Camron Cummins Performed By: Jose Miguel Ya RCS D/C Instructions Discharge Diet: Low fat / Low cholesterol, 6 Cup Fluid Restriction, 2000 mg Sodium Diet and Carb Control Diet Call your doctor if you observe: Fever of 101 or Higher, Shortness of breath, Dizziness, Fainting spells, Swelling in the ankles, Chest pain and Increased palpitations (irregular heartbeat) DC O2, CPAP, BIPAP Needs Home O2 Discharge instructions: No Meaningful Use Info Meaningful Use Meaningful Use Diagnoses (Choose all that apply): None applicable Ischemic Stroke Statin Dosing Therapy Reference: STATIN DOSE THERAPY REFERENCE: * Patients > 75 years receive moderate or high dose statin therapy. * Patients 75 years or YOUNGER should receive HIGH intensity statin dose unless contraindicated. You will be required to document reason for non-treatment if statin daily dose does not meet guidelines. HIGH DOSE STATIN THERAPY DAILY Atorvastatin > than or = to 40 mg Rosuvastatin > than or = to 20 mg Amlodipine + Atorvastatin > than or = to 2.5/40 mg Ezetimibe + Simvastatin 10/80 mg Simvastatin 80mg Discharge Plan Admission Admit Date/Time: 06/29/24 17:23 Attending Provider: Tristan Bermeo Primary Care Provider: Roberto Carlos Fernandes Consulting Providers: Camron Cummins; Roderick Waggoner; Kasey Horner; Yvonne López; Stephane Kraus; Brendon Leach; Neeru Ortiz; Dakota Edgar; Gera Kovacs; Amor Schaefer; Jose Caruso; Jarocho Bal NP; Alessia Alston PA; Mauro Kulkarni Instructions Additional Instructions / Restrictions: Notify your employee benefits insurance agent that you will be taking half of your Entresto pill twice a day. Also recommend increasing your allotted liquids from 20 ounces to 48 ounces Discharge Orders/Prescriptions Prescriptions: Continued magnesium oxide 400 MG tablet 400 mg PO DAILY Patient Comments: supplement multivitamin,ed-vvbp-Jb-FA-min 1 EACH tablet 1 ea PO DAILY Patient Comments: vitamin metformin 1,000 MG tablet 1,000 mg PO BIDCM Patient Comments: diabetes/ control blood sugar levels, takes at 1200 pramipexole 0.25 MG tablet 0.25 mg PO QHS Patient Comments: restless legs fluticasone propionate 1 SPRAY spray,suspension 2 spray NASAL DAILY Patient Comments: ALLERGIES fluticasone furoate-vilanterol 1 EACH blister with device 1 puff INHALATION DAILY Patient Comments: INHALE 1 PUFF BY MOUTH ONCE DAILY WITH GOOD ORAL CARE albuterol sulfate 90 mcg/actuation HFA aerosol inhaler 2 puff INHALATION Q4H PRN PRN (Reason: sob & or wheezing) Patient Comments: INHALE 2 PUFFS BY MOUTH EVERY 4 HOURS NEEDED FOR SHORTNESS OF BREATH AND WHEEZING aspirin 81 mg Tablet,Chewable 162 mg PO DAILY ondansetron HCl 4 mg tablet 4 mg PO Q6H PRN (Reason: nausea and vomiting) Qty: 15 0RF atorvastatin 40 mg tablet 40 mg PO QHS bupropion HCl 150 mg tablet extended release 24 hr 150 mg PO DAILY acetaminophen 325 mg Tablet 1,000 mg PO Q6H PRN PRN (Reason: Pain 1-10 Or Fever >100.7) Qty: 0 0RF meclizine 25 mg tablet 25 mg PO TID PRN (Reason: dizziness) Qty: 20 0RF sacubitril-valsartan [Entresto] 49-51 mg tablet 1 tab PO BID Eliquis 5 mg tablet 5 mg PO Q12H Patient Comments: [NO ORIGINAL SIG] potassium chloride 20 mEq tablet,ER particles/crystals 20 meq PO DAILY Mounjaro 5 mg/0.5 mL pen injector 5 mg subcut QWEEK Patient Comments: monday metoprolol succinate 25 mg tablet extended release 24 hr 25 mg PO DAILY Patient Comments: [NO ORIGINAL SIG] budesonide 1 mg/2 mL suspension for nebulization 1 mg inhalation BID cholecalciferol (vitamin D3) 25 mcg (1,000 unit) capsule 1,000 unit PO DAILY Held furosemide 40 mg tablet 40 mg PO DAILY Hold Instructions: Resume on 07/01/24. Discontinued ibuprofen 200 mg tablet 400 mg PO Q6H PRN (Reason: headache) Qty: 20 0RF Referrals / Follow Up: Roberto Carlos Fernandes MD [Primary Care Provider] - Within 1 Week Disposition Discharge Orders: Discharge Patient (Routine); Ordered 06/30/24 Ordered By: Dr. Tristan Bermeo Charges/Coding Visit Charges Inpatient E&M: 16028 Disch Hosp >30min
--- NOTE | 2024-06-29 16:42 | PCM.PN.HOSP ---
Subjective Subjective No issues overnight, less dizziness during this morning however in the afternoon he developed some dizziness with ambulation and a headache Objective Data Objective Data Vital Signs: Vital Signs Temp Pulse Resp BP Pulse Ox O2 Del Method 97.8 F 63 16 132/86 H 97 Room Air 06/29/24 16:04 06/29/24 16:04 06/29/24 16:04 06/29/24 16:04 06/29/24 16:04 06/29/24 16:04 Oxygen Delivery Method Room Air Weight: 227 lb 11.8 oz Body Mass Index (BMI) 30.0 Intake & Output: Intake and Output for Last 24 Hours 06/28/24 06/29/24 06/30/24 03:59 03:59 03:59 Intake Total 250 / 250 100 / 100 Balance 250 / 250 100 / 100 Lab / Micro Data 06/29/24 05:06 06/29/24 05:06 Labs: Laboratory Results - last 24 hr 06/28/24 18:24: WBC 8.4, RBC 5.68, Hgb 15.2, Hct 49.1, MCV 86.4, MCH 26.8 L, MCHC 31.0 L, RDW Std Deviation 49.2 H, RDW Coeff of Cristal 16.1 H, Plt Count 226, MPV 10.7, Immature Gran % (Auto) 0.500, Neut % (Auto) 68.3, Lymph % (Auto) 19.4, Zapata % (Auto) 7.4, Eos % (Auto) 3.8, Baso % (Auto) 0.6, Absolute Neuts (auto) 5.8, Absolute Lymphs (auto) 1.63, Nucleated RBC % 0, PT 15.0 H, INR 1.2, APTT 28.3, Sodium 141, Potassium 4.1, Chloride 109 H, Carbon Dioxide 24.0, Anion Gap 8, BUN 33 H, Creatinine 1.29, Est GFR (MDRD) Af Amer 70, Est GFR (MDRD) Non-Af 58 L, BUN/Creatinine Ratio 25.6 H, Glucose 142 H, Calcium 10.3 H, Troponin I High Sens 13, TSH 4.340 H, Free T4 0.97, Free T3 pg/dL 2.3 06/28/24 20:15: Troponin I High Sens 12 06/28/24 22:57: B-Natriuretic Peptide 344.7 H 06/29/24 00:55: Troponin I High Sens 16, Triglycerides 112, Cholesterol 126, LDL Cholesterol 66, VLDL Cholesterol 22, HDL Cholesterol 38 L, TSH 5.120 H 06/29/24 01:27: Urine Color Yellow, Urine Clarity Clear, Urine pH 6.0, Ur Specific [place] 1.020, Urine Protein 15 H, Urine Glucose (UA) Normal, Urine Ketones Negative, Urine Occult Blood Negative, Urine Nitrite Negative, Urine Bilirubin Negative, Urine Urobilinogen Normal, Ur Leukocyte Esterase Negative, Urine RBC 0 SEEN, Urine WBC 0 SEEN, Ur Squamous Epith Cells 0 SEEN, Urine Bacteria 0 SEEN, Urine Mucus 0 SEEN 06/29/24 05:06: WBC 8.4, RBC 5.31, Hgb 14.2, Hct 45.6, MCV 85.9, MCH 26.7 L, MCHC 31.1 L, RDW Std Deviation 48.8 H, RDW Coeff of Cristal 15.7 H, Plt Count 203, MPV 10.4, Immature Gran % (Auto) 0.500, Neut % (Auto) 67.5, Lymph % (Auto) 18.5 L, Zapata % (Auto) 8.9, Eos % (Auto) 3.8, Baso % (Auto) 0.8, Absolute Neuts (auto) 5.7, Absolute Lymphs (auto) 1.55, Nucleated RBC % 0, Sodium 140, Potassium 4.2, Chloride 112 H, Carbon Dioxide 21.0, Anion Gap 7, BUN 30 H, Creatinine 1.06, Estim Creat Clear Calc 77.19, Est GFR (MDRD) Af Amer 88, Est GFR (MDRD) Non-Af 73, BUN/Creatinine Ratio 28.3 H, Glucose 117 H, Hemoglobin A1c 5.9 H, Calcium 9.7, Phosphorus 3.6, Magnesium 1.8, Total Bilirubin 0.40, AST 26, ALT 44, Alkaline Phosphatase 82, Total Protein 6.3 L, Albumin 3.4, Globulin 2.9, Albumin/Globulin Ratio 1.2 06/29/24 06:32: POC Glucose 119 H 06/29/24 11:54: POC Glucose 111 H Micro: Microbiology 06/28/24 22:57 Mucosa - Nose SARS-CoV-2, Influenza & RSV (PCR) - Final Radiography Diagnostic Testing: Radiology Impression Brain CT 06/28/24 18:08 IMPRESSION: No acute findings in the head/brain. Electronically Signed: Denny Leach MD at 19:54 EST , Chest X-Ray 06/28/24 18:08 IMPRESSION: No acute findings in the chest. Electronically Signed: Denny Leach MD at 20:11 EST , Echocardiogram 06/29/24 00:28 Interpretation Summary Mildly dilated left ventricular cavity. Severe generalized LV hypokinesis. Estimated LVEF 15 to 20%. Bioprosthetic aortic valve functioning normally. Trivial regurgitation. Small loculated posterior pericardial effusion. Ordering Physician: Camron Cummins Referring Physician: Camron Cummins Performed By: Jose Miguel Ya RCS Physical Exam Narrative General: Alert, Oriented x3, Cooperative, No apparent distress HEENT: Atraumatic, PERRLA, EOMI, Normocephalic Oral: Moist Mucosa Neck: Supple, No JVD Lungs: Clear to auscultation, Normal air movement, No rhonchi, No wheeze, No rales Cardiovascular: Regular rate, Regular Rhythm, Normal S1, Normal S2, No murmurs Abdomen: Soft, Non Tender, Non-Distended, No Hepato-splenomegaly Extremities: No edema, Capillary Refill Less than 3 Seconds Skin: No rashes, No breakdown Musculoskeletal: No Tenderness to Palpation of Joints or Extremities Neurological: No focal neurological deficits, Motor Exam 5/5 strength throughout, Sensory exam intact to light touch and pain Psych/Mental Status: Normal Affect, Appropriate Assessment & Plan Assessment/Plan (1) Syncope: QUALIFIERS: Syncope type: unspecified Qualified Code(s): R55 - Syncope and collapse (2) S/P aortic valve repair: PLAN: Plan 1. Syncope/status post CABG and aortic valve repair/essential HTN/HLD/paroxysmal A-fib/chronic systolic CHF ? This is due to medications as it started when he took his increased dose of Entresto ? Echocardiogram with an EF of 15 to 20% which is consistent with his echocardiograms according to him previously [facility] ? Will continue only with metoprolol to help control his A-fib, as well as half dose Entresto. Hold his Lasix ? Will plan to discharge on a half dose of Entresto 2. DM2 ? Stable hold his home medications ? Continue with sliding scale insulin ? Accu-Cheks ACHS ? Will monitor and make adjustments as necessary 3. COPD ? Not in exacerbation ? Continue with his inhalers DVT: Eliquis Charges/Coding Visit Charges Inpatient E&M: 99019 Subs Hosp L2
[2024-06-29 17:25] LABS: Bedside Glucose 112 mg/dL (74-106)
[2024-06-29] MEDS: Pramipexole Di-HCl 0.25 MG Tablet PO (21:31)
[2024-06-29] MEDS: Atorvastatin Calcium 40 MG Tablet PO (21:31)
[2024-06-29] MEDS: MELATONIN 3 MG TABLET PO (21:41)
[2024-06-29 22:15] LABS: Bedside Glucose 120 mg/dL (74-106)
[2024-06-30 03:30] VITALS: BP 119/70; PULSE 83; RESP 17; TEMP 36.3; O2SAT 96
[2024-06-30 07:20] LABS: Bedside Glucose 117 mg/dL (74-106)
[2024-06-30] MEDS: Albuterol 2.5 MG/3 ML VIAL.NEB. INHALATION (07:33)
[2024-06-30] MEDS: Budesonide Respules 0.5 MG/2 ML AMPUL.NEB. INHALATION (07:33)
[2024-06-30 07:34] VITALS: PULSE 65; RESP 16; O2SAT 98
[2024-06-30 08:30] VITALS: BP 111/64; PULSE 63; RESP 16; TEMP 36.6; O2SAT 95
[2024-06-30] MEDS: Fluticasone 0.05% 1 SPRAY NASAL.SRY 2 SPRAY NASAL (08:35)
[2024-06-30 08:36] VITALS: PULSE 63
[2024-06-30] MEDS: Multivitamins,Ther W-Minerals Tablet 1 TABLET PO (08:36)
[2024-06-30] MEDS: Aspirin 81 MG TAB.CHEW 162 MG PO (08:36)
[2024-06-30] MEDS: Cholecalciferol (VIT D3) 25 MCG TABLET (1,000 UNITS) PO (08:36)
[2024-06-30] MEDS: buPROPion (XL) 150 MG TABLET.XL PO (08:36)
[2024-06-30] MEDS: Metoprolol(XL)Succ 25 MG Tablet PO (08:36)
[2024-06-30] MEDS: Magnesium Chloride 64 MG Delay Rel.Tablet 128 MG PO (08:37)
[2024-06-30] MEDS: Potassium Chloride Oral Tablet 20 MEQ PO (08:37)
[2024-06-30] MEDS: SACUBITRIL/VALSARTAN 24/26 MG TABLET 1 EACH PO (08:37)
[2024-06-30] MEDS: APIXABAN 5 MG TABLET PO (08:37)
[2024-06-30 12:16] LABS: Bedside Glucose 129 mg/dL (74-106)
[2024-06-30 13:16] VITALS: BP 115/72; PULSE 68; RESP 16; TEMP 36.6; O2SAT 96
== END 2024-06-30 13:16 | disposition home or self-care (01) | DRG 293 ==
LOC: ED 18:30 → PCU 23:20
PROVIDERS: Admitting Provider Internal Medicine; Emergency Provider Emergency Medicine; PCP Family Medicine; Referring Provider Internal Medicine; Visit Provider Family Medicine
DX: I11.0 Hypertensive heart disease with heart failure (principal); E11.9 Type 2 diabetes mellitus without complications; E86.0 Dehydration; Z79.01 Long term (current) use of anticoagulants; Z95.1 Presence of aortocoronary bypass graft; G25.81 Restless legs syndrome; E66.811 Obesity, class 1; I48.0 Paroxysmal atrial fibrillation; J44.9 Chronic obstructive pulmonary disease, unspecified; I50.22 Chronic systolic (congestive) heart failure; Z95.4 Presence of other heart-valve replacement; I25.10 Atherosclerotic heart disease of native coronary artery without angina pectoris; E78.5 Hyperlipidemia, unspecified; G47.33 Obstructive sleep apnea (adult) (pediatric); F41.8 Other specified anxiety disorders; M54.9 Dorsalgia, unspecified; H81.10 Benign paroxysmal vertigo, unspecified ear; I45.4 Nonspecific intraventricular block; T46.5X5A Adverse effect of other antihypertensive drugs, initial encounter; Z79.85 Long-term (current) use of injectable non-insulin antidiabetic drugs; G44.209 Tension-type headache, unspecified, not intractable; G89.29 Other chronic pain; Z79.1 Long term (current) use of non-steroidal anti-inflammatories (NSAID); Z68.30 Body mass index [BMI] 30.0-30.9, adult; Z79.51 Long term (current) use of inhaled steroids; Z79.84 Long term (current) use of oral hypoglycemic drugs; Z79.82 Long term (current) use of aspirin; Z79.899 Other long term (current) drug therapy; Z99.89 Dependence on other enabling machines and devices; Z86.711 Personal history of pulmonary embolism; Z96.619 Presence of unspecified artificial shoulder joint; R55 Syncope and collapse; Z98.890 Other specified postprocedural states
CPT/HCPCS: 36415; 70450; 71046; 80048; 80053; 80061; 81001; 82962; 83036; 83735; 83880; 84100; 84439; 84443; 84481; 84484; 85025; 85610; 85730; 87631; 93005; 93306; 94640; 94668; 97161; 99285; Q9957; A4216; C8929

== ENCOUNTER 2024-07-15 13:48 | Observation (INO) | payer MEDICARE, OTHER, SELFPAY ==
[2024-07-15] VITALS (11 sets, daily range): BP systolic 91–112; BP diastolic 56–79; PULSE 78–101; RESP 14–22; TEMP 36.4–36.7; O2SAT 93–99; BMI 29.5
--- NOTE | 2024-07-15 14:13 | EKG12_ITS ---
Test Reason : SYNCOPE Blood Pressure : */* mmHG Vent. Rate : 103 BPM Atrial Rate : * BPM P-R Int : * ms QRS Dur : 188 ms QT Int : 446 ms P-R-T Axes : * 25 213 degrees QTcB Int : 584 ms Sinus tachycardia Left bundle branch block Abnormal ECG Confirmed by MIGUEL A ALFARO, JEANNETTE ([id number]), editor publications ANNIKA RODRIGUEZ ([id number]) on 07/16/2024 8:51:55 AM Referred By: Nelida Malik Confirmed By: JEANNETTE GRADY MD
--- NOTE | 2024-07-15 14:25 | CT_ITS ---
PROCEDURE: BRAIN/HEAD WITHOUT CONTRAST REASON FOR EXAM: Syncope. TECHNIQUE: CT of the head without contrast was performed. COMPARISON: 08/07/2023 CT. FINDINGS: The ventricles are normal in size and midline in position. Right centrum semiovale chronic lacunar infarction. Mild chronic microvascular ischemia. No evidence of acute hemorrhage or infarction. The paranasal sinuses are clear. No acute osseous abnormalities. Chronic changes of the left orbit. CT/Brain/Head without Contrast IMPRESSION: No acute intracranial abnormality. One or more dose reduction techniques were used (e.g., Automated exposure contr ol, adjustment of the mA and/or kV according to patient size, use of iterative reconstruction technique). Reading Location: [id number]
[2024-07-15] MEDS: 0.9% Normal Saline (1000mL) 1,000 ML 999 ML IV (14:29)
[2024-07-15 14:31] LABS: Absolute Lymphocyte Count 1.54 X10^3/uL (0.83-4.51); Absolute Neutrophil Count 7.9 X10^3/uL (2.0-7.7); Basophil# 0.05 X10^3/uL; Basophil% 0.5 % (0-1); Eosinophil# 0.29 X10^3/uL; Eosinophils% 2.7 % (0-5); Hematocrit 49.4 % (40-54); Hemoglobin 15.2 g/dL (13.0-16.5); Lymphocyte # 1.54 X10^3/ul (0.83-4.51); Lymphocyte % 14.5 % (19-41); Mean Corp Hgb Conc 30.8 g/dL (32-36); Mean Corpuscular Hgb 26.3 pg (27.0-32.0); Mean Corpuscular Volume 85.3 fL (80-94); Mean Platelet Vol. 10.4 fl (6.2-12.0); Monocyte# 0.81 X10^3/uL; Monocyte% 7.6 % (0-10); NRBC Flagged by Analyzer 0 % (0-5); Neutrophil # 7.86 X10^3/uL (2.7-7.7); Neutrophil % 74.3 % (47-70); Platelet Count 236 K/mm3 (150-450); RBC Distribution Width CV 17.2 % (11.6-14.6); RBC Distribution Width SD 51.4 fl (35.1-43.9); Red Blood Count 5.79 M/mm3 (4.6-6.2); White Blood Count 10.6 K/mm3 (4.4-11.0)
--- NOTE | 2024-07-15 14:35 | RAD_ITS ---
EXAM: CHEST 1 VIEW (PORTABLE) CLINICAL HISTORY: Chest pain. Syncopal episode. COMPARISON: Comparison is made with prior study dated August 07, 2023. TECHNIQUE: A portable chest radiograph was obtained. FINDINGS: EKG electrodes are seen. A battery pack is seen overlying the left upper lobe. Status post midline sternotomy. The heart is nonenlarged. The lungs are clear. Prior right shoulder replacement. RAD/Chest 1 View (Portable) IMPRESSION: No acute abnormality is seen. Reading Location: [facility]
[2024-07-15 14:40] LABS: International Normalized Ratio 1.2; Prothrombin Time (Protime)PT. 15.4 SECONDS (11.7-14.9)
[2024-07-15 14:41] LABS: Partial Thromboplast Time 27.5 Seconds (24.1-36.2)
[2024-07-15 14:46] LABS: AST(SGOT) 21 U/L (15-37); Alanine Aminotransfer ALT/SGPT 44 U/L (16-61); Albumin, Serum 3.7 g/dL (3.2-5.0); Alkaline Phosphatase 79 U/L (45-117); Anion Gap 9 (5-15); BUN 38 mg/dL (7-18); BUN/Creat Ratio 23.8 RATIO (10-20); Bilirubin, Direct 0.12 mg/dL (0.00-0.30); Calcium,Total 9.9 mg/dL (8.5-10.1); Chloride 109 mmol/L (98-107); EST Glomerular Filtration Rate 45 mL/min (>60); Est Glom Filt Rate - Afr Amer 55 mL/min (>60); Estimated Creatinine Clearance 50.77 ml/min; Globulin 3.9 g/dL (2.2-4.2); Glucose 123 mg/dL (74-106); Potassium 4.5 mmol/L (3.5-5.1); Protein, Total 7.6 g/dL (6.4-8.2); Sodium Level 140 mmol/L (136-145); Troponin-I HS (w/2H Reflex) 11 pg/mL (3.0-78.0)
--- NOTE | 2024-07-15 14:55 | EX.ED.DYSGE1 ---
HPI History of Present Illness Chief Complaint: Syncope Narrative Narrative: Patient is a 74-year-old male with a past medical history of CHF, depression, asthma, PE on Eliquis, COPD, hypertension, diabetes who presents to the emergency department with a chief complaint of passing out. Patient states that he was at [facility] today around 11:30 AM had a cardioversion for atrial fibrillation. He states that he tolerated procedure well he was discharged home he went to lunch on the way home in [place]. He states that while eating cardioversion for atrial fibrillation. He states that he tolerated procedure well he was discharged home he went to lunch on the way home in [place]. He states that while eating he passed out and went unconscious therefore they called EMS. He states that when EMS arrived they evaluated him and noted that his vitals all look normal and he was advised to go to the ER however he wanted his to bring him here to the emergency department. He states that prior to the cardioversion after he was feeling his normal self he states that he is been compliant with his medications not missing doses. [facility] Medical History Stenosis of lumbosacral spine Lumbar disc disease First degree AV block Asthma Blindness of left eye Rheumatoid arthritis History of pulmonary embolism History of kidney stones Hiatal hernia History of diverticulitis Continuous positive airway pressure dependent Limited mobility Pressure ulcer of sacral region, stage 1 Depression Anxiety Abrasion Pulmonary embolism Restless legs Back pain Syncope Dietary restriction History of hiatal hernia History of ulceration History of diverticulitis Non-smoker History of edema History of echocardiogram History of stress test Cardiology follow-up encounter Vision loss of left eye Rheumatoid arthritis Kidney stones CPAP (continuous positive airway pressure) dependence Asthma Pulmonary embolism H/O bicuspid aortic valve Post-op pneumonia Diabetes COPD (chronic obstructive pulmonary disease) Hypertension Dizziness Diabetes mellitus Sleep apnea Obesity Hypertension Depression Home Medications ?Medication ?Instructions ?Recorded ?Last Taken ?Type magnesium oxide 400 mg (241.3 mg 400 mg PO DAILY supplement 11/25/14 07/14/24 History magnesium) tablet metformin 1,000 mg tablet 1,000 mg PO BIDCM diabetes 11/25/14 07/15/24 History multivitamin,yq-fraj-Ks-FA-min 1 ea PO DAILY vitamin 11/25/14 07/14/24 History pramipexole 0.25 mg tablet 0.25 mg PO QHS restless legs 11/25/14 07/14/24 History fluticasone propionate 50 2 spray DAILY allergies 02/24/16 07/14/24 History mcg/actuation nasal spray,suspension fluticasone furoate 200 1 puff inhalation DAILY breathing 03/25/20 07/14/24 History mcg-vilanterol 25 mcg/dose inhalation powder albuterol sulfate 90 mcg/actuation 2 puff inhalation Q4H PRN PRN sob 02/27/21 12/15/21 07:30 History aerosol inhaler & or wheezing aspirin 81 mg chewable tablet 81 mg PO DAILY heart health 12/11/21 07/14/24 History atorvastatin 40 mg tablet 40 mg PO QHS cholesterol 08/07/23 07/14/24 History bupropion HCl 150 mg 24 hr tablet, 150 mg PO DAILY mental health 08/07/23 07/15/24 History extended release acetaminophen 325 mg tablet 1,000 mg (3.0769 x 325 mg) PO Q6H 08/08/23 Unknown Rx PRN PRN Pain 1-10 Or Fever >100.7 #0 tabs meclizine 25 mg tablet 25 mg PO TID PRN dizziness #20 tabs 08/08/23 Unknown Rx apixaban 5 mg tablet (Eliquis) 5 mg PO Q12H blood thinner 06/28/24 07/15/24 History budesonide 1 mg/2 mL suspension 1 mg inhalation BID breathing 06/28/24 Unknown History for nebulization cholecalciferol (vitamin D3) 25 1,000 unit PO DAILY vitamin 06/28/24 07/15/24 History mcg (1,000 unit) capsule furosemide 40 mg tablet 40 mg PO DAILY diuretic 06/28/24 07/15/24 History metoprolol succinate 25 mg 25 mg PO DAILY blood pressure 06/28/24 07/15/24 History tablet,extended release 24 hr potassium chloride 20 mEq 20 meq PO DAILY supplement 06/28/24 07/15/24 History tablet,extended release(part/cryst) sacubitril 49 mg-valsartan 51 mg 0.5 tab PO BID heart 06/28/24 07/15/24 History tablet (Entresto) amiodarone 200 mg tablet 200 mg PO Q12H 07/15/24 07/15/24 History sertraline 25 mg tablet 25 mg PO DAILY 07/15/24 07/14/24 History Allergy/AdvReac Type Severity Reaction Status Date / Time erythromycin base AdvReac Diarrhea Verified 07/15/24 13:51 oxycodone (From Percocet) AdvReac Other Verified 07/15/24 13:51 tramadol AdvReac Other Verified 07/15/24 13:51 Surgical History History of coronary artery bypass graft S/P aortic valve repair Hx of cystoscopy History of thoracic aortic aneurysm repair H/O shoulder replacement Status post reverse total shoulder replacement Social History Smoking Status: Never smoker ROS ROS ED ROS Narrative Constitutional: Denies any fevers chills, lightness, dizziness Eyes: Denies change in vision double vision blurry vision Cardiovascular: Denies chest pain or palpitations Respiratory: Denies coughing wheezing shortness of breath Abdomen: Denies abdominal pain nausea vomit diarrhea : Denies any urinary symptoms Neurological: Denies any numbness, weakness, tingling Musculoskeletal: Denies any back pain Skin: Denies any rashes or lesions EXAM Physical Exam Narrative Exam Narrative: General: Patient was lying in bed rest comfortably did not appear to be in acute distress Head: Atraumatic, normocephalic Eyes: PERRL bilaterally, EOMI bilaterally, no conjunctival injection noted Neck: Soft, supple, trachea midline Cardiovascular: Patient tachycardic with a regular rhythm no murmurs gallops rubs noted Respiratory: Clear to auscultation bilaterally no rales rhonchi or wheezes noted Abdomen: Soft, nondistended, no tenderness palpation, bowel sounds present x 4 Extremities: +4/5 strength noted in the bilateral upper and lower extremities, radial pulses +2/4 in the bilateral extremities, no pedal edema on exam Neurological: Patient following commands knew that he was at [facility] year is 2024 Skin: Warm, dry, intact Const Vital Signs: 07/15/24 13:49 07/15/24 14:05 07/15/24 14:30 Temperature 97.5 F L Temperature Source Temporal Pulse Rate 101 H Respiratory Rate 20 H Respiratory Effort Non-Labored Short of Breath Respiratory Pattern Normal Blood Pressure 101/72 Blood Pressure Mean 81 Pulse Ox 95 Oxygen Delivery Method Room Air Room Air 07/15/24 14:48 07/15/24 15:00 07/15/24 16:00 Temperature Temperature Source Pulse Rate 91 78 81 Respiratory Rate 18 14 20 H Respiratory Effort Respiratory Pattern Blood Pressure 110/79 112/77 98/66 Blood Pressure Mean 89 88 76 Pulse Ox 98 94 96 Oxygen Delivery Method Room Air Room Air Room Air 07/15/24 17:00 Temperature Temperature Source Pulse Rate 87 Respiratory Rate 16 Respiratory Effort Respiratory Pattern Blood Pressure 91/65 Blood Pressure Mean 73 Pulse Ox Oxygen Delivery Method MDM MDM MDM Narrative Medical decision making narrative: Patient is a 74-year-old male who presents to the emerged part with a chief complaint of syncope. On the differential diagnose includes but not limited to to cardiac arrhythmia, ACS, electrolyte abnormality, pneumothorax, intracranial hemorrhage. Once workup is obtained reviewed he will be reevaluated. Patient will not be given 30 cc/kg bolus of IV fluids as he has a history of CHF. Fluids ordered at 1420 Patient CBC was reviewed and showed no evidence leukocytosis white blood count was normal at 10.6, hemoglobin 15.2, plate count was noted be normal at 236. Patient's INR normal at 1.2, PT of 15.4 he is chronically anticoagulated on Eliquis. Patient sodium normal 140, potassium normal 4.5, creatinine was elevated 1.60. Patient's lactic acid was elevated at 3.9, AST and ALT were normal at 21 and 44 respectively. Patient's troponin normal at 11 with a delta troponin obtained and reviewed at 11 as well. Patient's EKG was reviewed and showed evidence of left bundle branch block no Sgarbossa criteria were met. This was compared to an EKG on 06/29/2024 which was very similar in appearance. Patient chest x-ray reviewed by myself by radiology showed no acute cardiopulmonary processes. Patient CT head and brain without contrast showed no acute intracranial abnormality. At this point time do believe the patient will warrant admission to the hospital for his syncopal episode after recent cardioversion. There is no identifiable source infection at 1740 3 PM his lactic acidosis likely secondary to dehydration as well as recent cardioversion. Discussed case with hospitalist Dr. Malik who accept patient for admission. Patient and family were is agreeable this plan I was well at bedside all question concerns answered Lab Data Labs: Laboratory Results - last 24 hr 07/15/24 07/15/24 07/15/24 14:10 14:41 16:13 WBC 10.6 RBC 5.79 Hgb 15.2 Hct 49.4 MCV 85.3 MCH 26.3 L MCHC 30.8 L RDW Std Deviation 51.4 H RDW Coeff of Cristal 17.2 H Plt Count 236 MPV 10.4 Immature Gran % (Auto) 0.400 Neut % (Auto) 74.3 H Lymph % (Auto) 14.5 L [place] % (Auto) 7.6 Eos % (Auto) 2.7 Baso % (Auto) 0.5 Absolute Neuts (auto) 7.9 H Absolute Lymphs (auto) 1.54 Nucleated RBC % 0 PT 15.4 H INR 1.2 APTT 27.5 Sodium 140 Potassium 4.5 Chloride 109 H Carbon Dioxide 22.0 Anion Gap 9 BUN 38 H Creatinine 1.60 H Estim Creat Clear Calc 50.77 Est GFR (MDRD) Af Amer 55 L Est GFR (MDRD) Non-Af 45 L BUN/Creatinine Ratio 23.8 H Glucose 123 H Lactic Acid 3.9 H* Calcium 9.9 Total Bilirubin 0.40 Direct Bilirubin 0.12 AST 21 ALT 44 Alkaline Phosphatase 79 Troponin I High Sens 11 Total Protein 7.6 Albumin 3.7 Globulin 3.9 Urine Color Yellow Urine Clarity Clear Urine pH 5.0 Ur Specific [place] 1.015 Urine Protein 15 H Urine Glucose (UA) Normal Urine Ketones Negative Urine Occult Blood Negative Urine Nitrite Negative Urine Bilirubin Negative Urine Urobilinogen Normal Ur Leukocyte Esterase Negative Urine RBC 0-5 SEEN Urine WBC 0 SEEN Ur Squamous Epith Cells 0-5 SEEN Urine Bacteria 0 SEEN Urine Mucus 0 SEEN 07/15/24 16:23 WBC RBC Hgb Hct MCV MCH MCHC RDW Std Deviation RDW Coeff of Cristal Plt Count MPV Immature Gran % (Auto) Neut % (Auto) Lymph % (Auto) Valley % (Auto) Eos % (Auto) Baso % (Auto) Absolute Neuts (auto) Absolute Lymphs (auto) Nucleated RBC % PT INR APTT Sodium Potassium Chloride Carbon Dioxide Anion Gap BUN Creatinine Estim Creat Clear Calc Est GFR (MDRD) Af Amer Est GFR (MDRD) Non-Af BUN/Creatinine Ratio Glucose Lactic Acid Calcium Total Bilirubin Direct Bilirubin AST ALT Alkaline Phosphatase Troponin I High Sens 11 Total Protein Albumin Globulin Urine Color Urine Clarity Urine pH Ur Specific [place] Urine Protein Urine Glucose (UA) Urine Ketones Urine Occult Blood Urine Nitrite Urine Bilirubin Urine Urobilinogen Ur Leukocyte Esterase Urine RBC Urine WBC Ur Squamous Epith Cells Urine Bacteria Urine Mucus Radiography Diagnostic Testing: Clinical Impression(s) from Imaging Studies Brain CT 07/15/24 14:25 IMPRESSION: No acute intracranial abnormality. One or more dose reduction techniques were used (e.g., Automated exposure control, adjustment of the mA and/or kV according to patient size, use of iterative reconstruction technique). Reading Location: [facility] Chest X-Ray 07/15/24 14:35 IMPRESSION: No acute abnormality is seen. Reading Location: [place] [id number] Discharge Plan Triage Chief Complaint: Syncope ED Provider: Eric Hernadez Dx/Rx/DC Orders Clinical Impression: Syncope, Atrial fibrillation status post cardioversion Prescriptions: No Action magnesium oxide 400 MG tablet 400 mg PO DAILY Patient Comments: supplement multivitamin,vk-tsbk-Or-FA-min 1 EACH tablet 1 ea PO DAILY Patient Comments: vitamin metformin 1,000 MG tablet 1,000 mg PO BIDCM Patient Comments: diabetes/ control blood sugar levels, takes at 1200 pramipexole 0.25 MG tablet 0.25 mg PO QHS Patient Comments: restless legs fluticasone propionate 1 SPRAY spray,suspension 2 spray NASAL DAILY Patient Comments: ALLERGIES fluticasone furoate-vilanterol 1 EACH blister with device 1 puff INHALATION DAILY Patient Comments: INHALE 1 PUFF BY MOUTH ONCE DAILY WITH GOOD ORAL CARE albuterol sulfate 90 mcg/actuation HFA aerosol inhaler 2 puff INHALATION Q4H PRN PRN (Reason: sob & or wheezing) Patient Comments: INHALE 2 PUFFS BY MOUTH EVERY 4 HOURS NEEDED FOR SHORTNESS OF BREATH AND WHEEZING aspirin 81 mg Tablet,Chewable 81 mg PO DAILY atorvastatin 40 mg tablet 40 mg PO QHS bupropion HCl 150 mg tablet extended release 24 hr 150 mg PO DAILY acetaminophen 325 mg Tablet 1,000 mg PO Q6H PRN PRN (Reason: Pain 1-10 Or Fever >100.7) Qty: 0 0RF meclizine 25 mg tablet 25 mg PO TID PRN (Reason: dizziness) Qty: 20 0RF sacubitril-valsartan [Entresto] 49-51 mg tablet 0.5 tab PO BID Eliquis 5 mg tablet 5 mg PO Q12H Patient Comments: [NO ORIGINAL SIG] furosemide 40 mg tablet 40 mg PO DAILY potassium chloride 20 mEq tablet,ER particles/crystals 20 meq PO DAILY metoprolol succinate 25 mg tablet extended release 24 hr 25 mg PO DAILY Patient Comments: [NO ORIGINAL SIG] budesonide 1 mg/2 mL suspension for nebulization 1 mg inhalation BID cholecalciferol (vitamin D3) 25 mcg (1,000 unit) capsule 1,000 unit PO DAILY amiodarone 200 mg tablet 200 mg PO Q12H Patient Comments: [NO ORIGINAL SIG] sertraline 25 mg tablet 25 mg PO DAILY Primary Care Provider: Roberto Carlos Fernandes Referrals: Roberto Carlos Fernandes MD [Primary Care Provider] - Print Language: Icelandic Disposition Disposition: Acute Care Hospital [facility]
[2024-07-15 16:13] LABS: Lactic Acid 3.9 mmol/L (0.4-1.9)
[2024-07-15 16:19] LABS: Bacteria 0 SEEN /hpf (None Seen); Mucous, Urine 0 SEEN /hpf (<or=2+); White Blood Cells 0 SEEN /hpf (0-5)
[2024-07-15 16:21] LABS: Reflex Troponin-HS? (from REC) Y
[2024-07-15 16:22] LABS: Color, Urine Yellow (Yellow); Glucose, Dipstick Normal (Normal); Ketone-Dipstick Negative (Negative); Leukocyte Esterase-Dipstick Negative /ul (Negative); Nitrite-Dipstick Negative (Negative); Occult Blood-Urine Negative /ul (Negative); Protein-Dipstick 15 mg/dl (Negative); Specific Gravity, Urine 1.015 (1.002-1.030); Urine Bilirubin Dipstick Negative (Negative); Urine Clarity Clear (Clear); Urine Urobilinogen Normal (Normal)
[2024-07-15 16:30] LABS: Red Blood Cells-Urine 0-5 SEEN /hpf (0-5); Squamous Epithelial Cells - UA 0-5 SEEN /hpf (0-5)
[2024-07-15 16:46] LABS: Troponin-I HS 11 pg/mL (3.0-78.0)
[2024-07-15 18:51] LABS: Reflex Lactate? Y
--- NOTE | 2024-07-15 19:06 | HP.PCM.HOS_ITS ---
[facility] Date of Admission: 07/15/24 Date of Service: 07/15/24 Chief Complaint: Syncopal episode [facility] Narrative ALEM SHEEHAN, is a 74-year-old male history of PE, asthma, diabetes, depression, chronic CHF who presented [facility] ED 07/15/2024 after syncopal episode. Was at [facility] Earlier today with a cardioversion for A-fib at 1130, tolerated procedure well and went home he passed out while eating lunch and went unconscious so EMS was called. In the ED patient in sinus rhythm with left bundle branch block similar to previous, JIMMY with creatinine 1.6 with baseline closer to 1.21 blood pressure at its lowest 91/65. Patient given IV fluids and hospitalist contacted for admission. Patient evaluated with at bedside, patient seen at [facility] Earlier today and had cardioversion and was monitored for over an hour afterwards without notable problems. He was discharged home and when he went to eat lunch he had some of his food and then had syncopal episode, patient did not necessarily feel lightheaded but said he felt like everything froze and he lost consciousness without any reported seizure-like activity. He does report that recently he has been feeling all right if he is laying horizontally but if he sits up he feels little lightheaded when he stands that he feels lightheaded and unsteady on his feet and has had this problem since Entresto was started, it was decreased last month and he thought maybe it was somewhat helpful however is continued to have this problem. Discussed with her dental office receptionist regarding syncopal episode and given patient established with another dental office receptionist and was just seen and was advised to be discharged with a Holter monitor and to call his physician tomorrow. Discussed this option with patient and however they report it takes days for anyone to get back to them and they are very nervous about him going home. Additionally they report they have an establish care appointment with [facility] in 10 days as they are switching care to [facility] and they have already signed the information releases so the records can be sent from the previous cardiology office. At time of evaluation patient not presently feeling lightheaded, he denies any swelling in his lower extremities, reports he gets a little bit shaky but feels that has been this way since he was started on amiodarone a few weeks ago. [facility] Medical History Stenosis of lumbosacral spine Lumbar disc disease First degree AV block Asthma Blindness of left eye Rheumatoid arthritis History of pulmonary embolism History of kidney stones Hiatal hernia History of diverticulitis Continuous positive airway pressure dependent Limited mobility Pressure ulcer of sacral region, stage 1 Depression Anxiety Abrasion Pulmonary embolism Restless legs Back pain Syncope Dietary restriction History of hiatal hernia History of ulceration History of diverticulitis Non-smoker History of edema History of echocardiogram History of stress test Cardiology follow-up encounter Vision loss of left eye Rheumatoid arthritis Kidney stones CPAP (continuous positive airway pressure) dependence Asthma Pulmonary embolism H/O bicuspid aortic valve Post-op pneumonia Diabetes COPD (chronic obstructive pulmonary disease) Hypertension Dizziness Diabetes mellitus Sleep apnea Obesity Hypertension Depression Home Medications ?Medication ?Instructions ?Recorded ?Last Taken ?Type magnesium oxide 400 mg (241.3 mg 400 mg PO DAILY suppl ement 11/25/14 07/14/24 History magnesium) tablet metformin 1,000 mg tablet 1,000 mg PO BIDCM diabetes 0 11/25/14 07/15/24 History multivitamin,sk-faau-Um-FA-min 1 ea PO DAILY vitamin 0 11/25/14 07/14/24 History pramipexole 0.25 mg tablet 0.25 mg PO QHS restless leg s 11/25/14 07/14/24 History fluticasone propionate 50 2 spray DAILY allergies 02/1007/14/24 History mcg/actuation nasal spray,suspension fluticasone furoate 200 1 puff inhalation DAILY pat thing 03/25/20 07/14/24 History mcg-vilanterol 25 mcg/dose inhalation powder albuterol sulfate 90 mcg/actuation 2 puff inhalation Q 4H PRN PRN sob 02/27/21 12/15/21 07:30 History aerosol inhaler & or wheezing aspirin 81 mg chewable tablet 81 mg PO DAILY heart hea lth 12/11/21 07/14/24 History atorvastatin 40 mg tablet 40 mg PO QHS cholesterol 07/14/24 History bupropion HCl 150 mg 24 hr tablet, 150 mg PO DAILY men lyly health 08/07/23 07/15/24 History extended release acetaminophen 325 mg tablet 1,000 mg (3.0769 x 325 mg) PO Q6H 08/08/23 Unknown Rx PRN PRN Pain 1-10 Or Fever >100.7 #0 tabs meclizine 25 mg tablet 25 mg PO TID PRN dizziness # 20 tabs 08/08/23 Unknown Rx apixaban 5 mg tablet (Eliquis) 5 mg PO Q12H blood thin ner 06/28/24 07/15/24 History budesonide 1 mg/2 mL suspension 1 mg inhalation BID br eathing 06/28/24 Unknown History for nebulization cholecalciferol (vitamin D3) 25 1,000 unit PO DAILY vi tamin 06/28/24 07/15/24 History mcg (1,000 unit) capsule furosemide 40 mg tablet 40 mg PO DAILY diuretic 06/1207/15/24 History metoprolol succinate 25 mg 25 mg PO DAILY blood pressu re 06/28/24 07/15/24 History tablet,extended release 24 hr potassium chloride 20 mEq 20 meq PO DAILY supplement 0 06/28/24 07/15/24 History tablet,extended release(part/cryst) sacubitril 49 mg-valsartan 51 mg 0.5 tab PO BID heart 06/28/24 07/15/24 History tablet (Entresto) amiodarone 200 mg tablet 200 mg PO Q12H 07/15/2409/03 History sertraline 25 mg tablet 25 mg PO DAILY 07/15/2408/06 History Allergy/AdvReac Type Severity Reaction Status Date / Time erythromycin base AdvReac Diarrhea Verified 07/15/24 13:51 oxycodone (From Percocet) AdvReac Other Verified 07/15/24 13:51 tramadol AdvReac Other Verified 07/15/24 13:51 Surgical History History of coronary artery bypass graft S/P aortic valve repair Hx of cystoscopy History of thoracic aortic aneurysm repair H/O shoulder replacement Status post reverse total shoulder replacement Social History Smoking Status: Never smoker ROS ROS Narrative General: Denies fever/chills HENT: Denies headache, denies stuffy nose, denies sore throat EYES: Denies changes in vision Resp: Denies cough, denies shortness of breath Cardiac: Denies chest pain or palpitations, does feel lightheaded often when he goes from lying horizontal to sitting, and unsteady on his feet when he stands GI: Denies abdominal pain, denies changes in bowel, denies nausea/vomiting : Denies changes in urination Extremity: Denies swelling MSK: Denies weakness Neuro: Denies any numbness/tingling Heme: Denies any bleeding or bruising Skin: Denies rashes Psychiatric: No complaints voiced Vital Signs Vital Signs Vital Signs: 07/15/24 13:49 07/15/24 14:05 07/15/24 14:30 Temperature 97.5 F L Temperature Source Temporal Pulse Rate 101 H Respiratory Rate 20 H Respiratory Effort Non-Labored Short of Breath Respiratory Pattern Normal Blood Pressure 101/72 Blood Pressure Mean 81 Pulse Ox 95 Oxygen Delivery Method Room Air Room Air 07/15/24 14:48 07/15/24 15:00 07/15/24 16:00 Temperature Temperature Source Pulse Rate 91 78 81 Respiratory Rate 18 14 20 H Respiratory Effort Respiratory Pattern Blood Pressure 110/79 112/77 98/66 Blood Pressure Mean 89 88 76 Pulse Ox 98 94 96 Oxygen Delivery Method Room Air Room Air Room Air 07/15/24 17:00 07/15/24 18:00 Temperature Temperature Source Pulse Rate 87 87 Respiratory Rate 16 22 H Respiratory Effort Respiratory Pattern Blood Pressure 91/65 102/64 Blood Pressure Mean 73 76 Pulse Ox 97 Oxygen Delivery Method Weight Weight: 101.7 kg Body Mass Index (BMI) 29.5 Physical Exam Narrative General: Alert, oriented, no apparent distress HEENT: Atraumatic, normocephalic Eyes: Anicteric, normal conjunctiva, extraocular movements grossly intact Neck: Supple Respiratory: Clear to auscultation bilaterally, normal respiratory effort Cardiovascular: Regular rate and rhythm GI: Soft, nontender, nondistended Extremities: No edema Musculoskeletal: Moving all extremities Neuro: No overt focal neurological deficits Skin: No rashes appreciated Psych: Cooperative Results Lab / Micro Data 07/15/24 14:10 07/15/24 14:10 Labs: Laboratory Results - last 24 hr 07/15/24 14:10: WBC 10.6, RBC 5.79, Hgb 15.2, Hct 49.4, MCV 85.3, MCH 26.3 L, M CHC 30.8 L, RDW Std Deviation 51.4 H, RDW Coeff of Cristal 17.2 H, Plt Count 236, MPV 10.4, Immature Gran % (Auto) 0.400, Neut % (Auto) 74.3 H, Lymph % (Auto) 14.5 L, Wright % (Auto) 7.6, Eos % (Auto) 2.7, Baso % (Auto) 0.5, Absolute Neuts (auto) 7.9 H, Absolute Lymphs (auto) 1.54, Nucleated RBC % 0, PT 15.4 H, INR 1.2, APTT 27.5, Sodium 140, Potassium 4.5, Chloride 109 H, Carbon Dioxide 22.0, Anion Gap 9, BUN 38 H, Creatinine 1.60 H, Estim Creat Clear Calc 50.77, Est GFR (MDRD) Af Amer 55 L, Est GFR (MDRD) Non-Af 45 L, BUN/Creatinine Ratio 23.8 H, G lucose 123 H, Calcium 9.9, Total Bilirubin 0.40, Direct Bilirubin 0.12, AST 21, ALT 44, Alkaline Phosphatase 79, Troponin I High Sens 11, Total Protein 7.6, Albumin 3.7, Globulin 3.9 07/15/24 14:41: Lactic Acid 3.9 H* 07/15/24 16:13: Urine Color Yellow, Urine Clarity Clear, Urine pH 5.0, Ur Specific [place] 1.015, Urine Protein 15 H, Urine Glucose (UA) Normal, Urine Ketones Negative, Urine Occult Blood Negative, Urine Nitrite Negative, Urine Bilirubin Negative, Urine Urobilinogen Normal, Ur Leukocyte Esterase Negative, Urine RBC 0-5 SEEN, Urine WBC 0 SEEN, Ur Squamous Epith Cells 0-5 SEEN, Urine Bacteria 0 SEEN, Urine Mucus 0 SEEN 07/15/24 16:23: Troponin I High Sens 11 Imaging Radiology Impression Brain CT 07/15/24 14:25 IMPRESSION: No acute intracranial abnormality. One or more dose reduction techniques were used (e.g., Automated exposure control, adjustment of the mA and/or kV according to patient size, use of iterative reconstruction technique). Reading Location: [facility] Chest X-Ray 07/15/24 14:35 IMPRESSION: No acute abnormality is seen. Reading Location: [facility]-IR-1 Assessment & Plan Assessment/Plan (1) Syncope: PLAN: Plan # Syncopal episode -admit to telemetry -EGK normal sinus rhythm with left bundle branch block similar to 06/29 -CT head with no acute process -Given patient's cardiac history this could be arrhythmia but patient was also hypotensive when he came here and reports that even sometimes when he is sitting up he will feel lightheaded and also has JIMMY -Patient given very gentle IV fluids in the ED with improvement in blood pressure and symptoms -Will check orthostats -Discussed with our dental office receptionist on-call, given his history he would benefit from Holter monitor and discussing with his current treating dental office receptionist on discharge -Given soft blood pressure with symptoms, JIMMY, and patient and 's hesitance for discharge home given difficulty with contacting their physician and additionally they will be establishing care with [facility] in 10 days feel it is reasonable to keep patient overnight -Does have a monitor in place so this will not be needed to set up on discharge, if patient stable can likely be discharged tomorrow and advised to call current dental office receptionist and keep appointment in 10 days to establish care with new dental office receptionist -Check magnesium -Had echocardiogram last month, do not think this needs repeated # JIMMY -Patient with creatinine of 1.60 and BUN of 38 with baseline closer to 1.2 -Patient with soft blood pressure and seems to be on the volume depleted side -Holding Entresto today -Patient got very gentle IV fluids with improvement in pressure -Can decide further fluids versus diuretics pending orthostatic blood pressure as well as a.m. vitals and labs #SIVAKUMAR -Continue home NIPPV if applicable # A-fib status post cardioversion -Presently normal sinus rhythm -Continue Eliquis, amiodarone, beta-hue #Hx CAD s/p CABG -Continue patient's statin, beta-hue, Eliquis #Type 2 diabetes mellitus -Glucose checks and sliding scale insulin # Asthma -Continue home inhalers #Depression/anxiety -Continue home medications # History of PE -Continue Eliquis # Chronic heart failure with reduced ejection fraction -Daily weights, I's and O's -Last echocardiogram 06/29/2024 with severe generalized LV hypokinesis with EF 15 to 20% -Holding Entresto and Lasix for now pending further vitals/orthostats in a.m. labs -Continue beta-hue #DVT ppx: Continue home Teto Malik MD Charges/Coding Visit Charges Inpatient E&M: 20074 Init Hosp L2
--- NOTE | 2024-07-15 19:15 | CASEMGMT ---
Care Management Face to Face with patient for initial transition planning/care coordination assessment in the ED. This consumer loan underwriter introduced self and role at [facility]. Patient alert and oriented. Patient willing to participate in assessment and is able to answer all questions appropriately. Patient's , Marielle, at bedside. Care providers, pharmacy, and demographics verified. Admitting Diagnosis: Syncope, Atrial fibrillation status post cardioversion Other diagnosis history: CHF, depression, asthma, PE on Eliquis, COPD, hypertension, diabetes PCP: Roberto Carlos Fernandes Specialists: Dr. Akbar, cardiology. Dr. Bales, orthopedics. Dr. Knight, endocrinology. Dr. Hitchcock, heart surgeon. Dr. Alfaro, urology. Dr. Malik, orthopedics. Dr. Newberry, cardioversion today 07/15/24. Dr. Beatty, podiatry. Director Of Entertainment through [place]. Switching to a [facility] staff research associate on 07/26/24. Preferred Pharmacy: [facility] Insurance: Medicare A B (primary). Medical [place] (secondary) Prescription Benefit: yes Living Will/HPOA: yes, Marielle listed. states intention of bringing documents in during admission. LNOK: , Marielle. 3 children, Michael, Ander, and Marilu Living Arrangements: lives with in a 2 story home with a basement. 1 step to enter, 2 steps down into the garage. Lift chair to get upstairs. Transportation: patient drives, though not much since March due to not trusting self. drives often. DME: CPAP, glucometer and testing strips, chair lift, walker, cane, cold therapy ice machine, ta-da chair, blood pressure cuff HHC: [facility] after surgeries (not active currently) SNF/Rehab: [facility] in 2015 Community Resources: none Patient goals: Patient wishes to discharge home, denies need for home health care at this time. Patient states he has no further needs or concerns at this time. Patient's reports switching to a staff research associate at [facility] and having that appointment set up for 07/26/24. Disposition Plan: admission to acute; RN CM/SW to follow for discharge planning needs that may arise. Rosetta Brian, CHEMIST ORGANIC, FIRST BEATER
[2024-07-15 21:03] LABS: Lactic Acid 2.4 mmol/L (0.4-1.9)
--- NOTE | 2024-07-15 21:16 | CM.ED ---
Social work During RN CM initial assessment, patient's [place] verified that patient's is patient's HCPOA. Patient's stated intention of bringing advance directive documents in during patient's admission. Rosetta Brian, IT TRAINER, SALVAGE WORKER
--- NOTE | 2024-07-15 23:15 | ED.RN ---
PT waiting on bed assignment. pt is requesting his night time medications. cleared with Dr Hernadez to order Amiodarone 200mg PO x1, Apixaban 5mg PO x1, Atorvastatin 40mg PO x1, Pramipexole 0.25mg PO x1, Entresto 49mg/51mg PO x1.
[2024-07-16] VITALS (16 sets, daily range): BP systolic 84–119; BP diastolic 40–81; PULSE 73–90; RESP 16–18; TEMP 36.1–36.9; O2SAT 94–98; BMI 29.5
[2024-07-16] MEDS: Amiodarone 200 MG Tablet PO ×3 (00:23→17:09)
[2024-07-16] MEDS: Pramipexole Di-HCl 0.25 MG Tablet PO ×2 (00:23→21:28)
[2024-07-16] MEDS: APIXABAN 5 MG TABLET PO ×3 (00:23→21:26)
[2024-07-16] MEDS: Atorvastatin Calcium 40 MG Tablet PO ×2 (00:23→21:28)
[2024-07-16] MEDS: SACUBITRIL/VALSARTAN 49-51 MG TABLET 1 EACH PO (00:23)
[2024-07-16 02:00] LABS: Bedside Glucose 123 mg/dL (74-106)
[2024-07-16 06:34] LABS: Bedside Glucose 114 mg/dL (74-106)
[2024-07-16] MEDS: Albuterol 2.5 MG/3 ML VIAL.NEB. INHALATION ×3 (06:50→19:12)
[2024-07-16] MEDS: Budesonide Respules 0.5 MG/2 ML AMPUL.NEB. INHALATION ×2 (06:58→19:12)
[2024-07-16 08:35] LABS: Absolute Lymphocyte Count 1.18 X10^3/uL (0.83-4.51); Absolute Neutrophil Count 4.8 X10^3/uL (2.0-7.7); Basophil# 0.05 X10^3/uL; Basophil% 0.7 % (0-1); Eosinophil# 0.23 X10^3/uL; Eosinophils% 3.4 % (0-5); Hematocrit 42.5 % (40-54); Hemoglobin 13.1 g/dL (13.0-16.5); Lymphocyte # 1.18 X10^3/ul (0.83-4.51); Lymphocyte % 17.4 % (19-41); Mean Corp Hgb Conc 30.8 g/dL (32-36); Mean Corpuscular Hgb 26.5 pg (27.0-32.0); Mean Platelet Vol. 10.3 fl (6.2-12.0); Monocyte# 0.53 X10^3/uL; Monocyte% 7.8 % (0-10); NRBC Flagged by Analyzer 0 % (0-5); Neutrophil # 4.78 X10^3/uL (2.7-7.7); Neutrophil % 70.4 % (47-70); Platelet Count 173 K/mm3 (150-450); RBC Distribution Width CV 16.7 % (11.6-14.6); RBC Distribution Width SD 51.8 fl (35.1-43.9); Red Blood Count 4.94 M/mm3 (4.6-6.2); White Blood Count 6.8 K/mm3 (4.4-11.0)
[2024-07-16] MEDS: Aspirin 81 MG TAB.CHEW PO (08:47)
[2024-07-16 09:28] LABS: Anion Gap 9 (5-15); BUN 32 mg/dL (7-18); BUN/Creat Ratio 28.3 RATIO (10-20); Calcium,Total 9.5 mg/dL (8.5-10.1); Chloride 114 mmol/L (98-107); Creatinine, Serum 1.13 mg/dL (0.70-1.30); EST Glomerular Filtration Rate 67 mL/min (>60); Est Glom Filt Rate - Afr Amer 82 mL/min (>60); Estimated Creatinine Clearance 71.89 ml/min; Glucose 129 mg/dL (74-106); Sodium Level 142 mmol/L (136-145)
[2024-07-16] MEDS: Sertraline 50 MG Tablet 25 MG PO (10:12)
[2024-07-16] MEDS: buPROPion (XL) 150 MG TABLET.XL PO (10:12)
[2024-07-16] MEDS: Magnesium Chloride 64 MG Delay Rel.Tablet 128 MG PO (10:12)
[2024-07-16] MEDS: Metoprolol(XL)Succ 25 MG Tablet PO (10:13)
[2024-07-16 11:47] LABS: Bedside Glucose 120 mg/dL (74-106)
[2024-07-16] MEDS: SACUBITRIL/VALSARTAN 24/26 MG TABLET PO (14:43)
--- NOTE | 2024-07-16 15:27 | PN.HOSP_ITS ---
Reason for Visit Reason for Visit: Diagnoses Syncope and collapse (07/15/24) Objective Data Objective Data Vital Signs: Vital Signs Temp Pulse Resp BP Pulse Ox O2 Del Method O2 Flow Rate 98.5 F 79 16 119/81 H 94 Room Air 2 07/16/24 14:00 07/16/24 14:00 07/16/24 14:00 07/16/24 14:00 07/16/24 14:00 07/16/24 14:00 07/16/24 06:54 FiO2 28 07/16/24 01:54 Oxygen Flow Rate (L/min) 2 Oxygen Delivery Method Room Air Weight: 224 lb 3.362 oz Body Mass Index (BMI) 29.5 Intake & Output: Intake and Output for Last 24 Hours 07/14/24 07/15/24 07/16/24 23:59 23:59 23:59 Intake Total 1000 / 1000 450 / 450 Balance 1000 / 1000 450 / 450 Lab / Micro Data 07/16/24 08:07 07/16/24 08:07 Labs: Laboratory Results - last 24 hr 07/15/24 14:41: Lactic Acid 3.9 H* 07/15/24 16:13: Urine Color Yellow, Urine Clarity Clear, Urine pH 5.0, Ur Specific [place] 1.015, Urine Protein 15 H, Urine Glucose (UA) Normal, Urine Ketones Negative, Urine Occult Blood Negative, Urine Nitrite Negative, Urine Bilirubin Negative, Urine Urobilinogen Normal, Ur Leukocyte Esterase Negative, Urine RBC 0-5 SEEN, Urine WBC 0 SEEN, Ur Squamous Epith Cells 0-5 SEEN, Urine Bacteria 0 SEEN, Urine Mucus 0 SEEN 07/15/24 16:23: Troponin I High Sens 11 07/15/24 20:10: Lactic Acid 2.4 H* 07/16/24 01:43: POC Glucose 123 H 07/16/24 06:06: POC Glucose 114 H 07/16/24 08:07: WBC 6.8, RBC 4.94, Hgb 13.1, Hct 42.5, MCV 86.0, MCH 26.5 L, M CHC 30.8 L, RDW Std Deviation 51.8 H, RDW Coeff of Cristal 16.7 H, Plt Count 173, MPV 10.3, Immature Gran % (Auto) 0.300, Neut % (Auto) 70.4 H, Lymph % (Auto) 17.4 L, [place] % (Auto) 7.8, Eos % (Auto) 3.4, Baso % (Auto) 0.7, Absolute Neuts (auto) 4.8, Absolute Lymphs (auto) 1.18, Nucleated RBC % 0, Sodium 142, Potassium 4.0, Chloride 114 H, Carbon Dioxide 20.0 L, Anion Gap 9, BUN 32 H, Creatinine 1.13, Estim Creat Clear Calc 71.89, Est GFR (MDRD) Af Amer 82, Est GFR (MDRD) Non-Af 67, BUN/Creatinine Ratio 28.3 H, Glucose 129 H, Calcium 9.5, Magnesium 2.0 07/16/24 11:30: POC Glucose 120 H Micro: Microbiology 07/15/24 16:13 Urine, Clean Catch Urine Culture - Preliminary Culture exhibits no growth. Radiography Diagnostic Testing: Radiology Impression Brain CT 07/15/24 14:25 IMPRESSION: No acute intracranial abnormality. One or more dose reduction techniques were used (e.g., Automated exposure control, adjustment of the mA and/or kV according to patient size, use of iterative reconstruction technique). Reading Location: [facility] Physical Exam Narrative Seen and examined. Patient is not feeling dizzy and lightheaded but he was feeling in the morning. Blood pressure runs low from systolic 90s to 110s. Discussed with the regarding Entresto and amiodarone. Patient admitted with passing out 3-4 times in the last several weeks. No fever or flulike symptoms Physical exam General: Alert, Oriented x3, Cooperative HEENT: Atraumatic, PERRLA, EOMI, Normocephalic Oral: No Gingival or Mucosal Lesions/ Ulcerations Neck: Supple, No JVD, Negative Carotid Bruits Chest wall/Lungs: Air entry diminished in bilateral lung bases. No crepitation/rhonchi Cardiovascular: Irregular rhythm. A-fib, heart rate controlled. Cutaneous heart monitor. Systolic murmur. Open heart surgery. Status post CABG and AVR Abdomen: Bowel Sounds Present, Soft, Non Tender, Non-Distended : No dysuria. No renal angle tenderness. No suprapubic tenderness. Extremities: Mild edema, Capillary Refill Less than 3 Seconds Skin: No rashes, No breakdown Musculoskeletal: No Tenderness to Palpation of Joints or Extremities Neurological: Cranial nerves II-XII grossly intact, DTR 2+/4. No acute focal neurological deficit. Psych/Mental Status: Normal Affect, Appropriate. Assessment & Plan Assessment/Plan (1) Syncope: PLAN: Plan This 74-year-old gentleman with history of CAD status post CABG and AVR in March 2014 came to ED with syncope. Prior to that he went to [facility] where he was cardioverted and then discharged home. At home he passed out started feeling dizzy and lightheaded. Denies chest pressure or acute shortness of breath. Has chronic low BP from low EF 1. Acute on recurrent syncope probably due to hypotension/cardiac syncope: Patient is being admitted in PCU. His orthostatic vitals positive. Patient on Entresto, discussed about the dose 1 tablet twice daily and decrease to half tablet twice daily if SBP less than 100 and hold completely if SBP less than 90. Lactic acidosis from hypotension. Twelve-lead EKG showed normal sinus rhythm with left bundle branch block similar to 06/29. CT head no acute process. Patient was recently discharged yesterday from [facility] After putting continuous Holter monitor. Troponins normal. Patient's stated that his mechanical service specialist including clinic is very busy and not accessible and he advises the patient to go to ED. Patient has appointment Dr. Leach on July 26. JIMMY: IV fluid given. BUN/creatinine was 38/1.6 improved to 32/1.13. JIMMY resolved. Prerenal from hypotension. Serum magnesium 2.0. Serum calcium normal. -Does have a monitor in place so this will not be needed to set up on discharge, if patient stable can likely be discharged tomorrow and advised to call current mechanical service specialist and keep appointment in 10 days to establish care with new mechanical service specialist -Check magnesium -Had echocardiogram last month, do not think this needs repeated #SIVAKUMAR -Continue home NIPPV if applicable # A-fib status post cardioversion -Presently normal sinus rhythm -Continue Eliquis, amiodarone, beta-hue. Entresto dose discussed above #Hx CAD s/p CABG -Continue patient's statin, beta-hue, Eliquis #Type 2 diabetes mellitus -Glucose checks and sliding scale insulin # Asthma -Continue home inhalers #Depression/anxiety -Continue home medications # History of PE -Continue Eliquis # Chronic heart failure with reduced ejection fraction -Daily weights, I's and O's -Last echocardiogram 06/29/2024 with severe generalized LV hypokinesis with EF 15 to 20%. Lasix as needed. -Continue beta-hue #DVT ppx: Continue home Eliquis 07/15/24 14:41: Lactic Acid 3.9 H* 07/15/24 16:13: Urine Color Yellow, Urine Clarity Clear, Urine pH 5.0, Ur Specific [place] 1.015, Urine Protein 15 H, Urine Glucose (UA) Normal, Urine Ketones Negative, Urine Occult Blood Negative, Urine Nitrite Negative, Urine Bilirubin Negative, Urine Urobilinogen Normal, Ur Leukocyte Esterase Negative, Urine RBC 0-5 SEEN, Urine WBC 0 SEEN, Ur Squamous Epith Cells 0-5 SEEN, Urine Bacteria 0 SEEN, Urine Mucus 0 SEEN 07/15/24 16:23: Troponin I High Sens 11 07/15/24 20:10: Lactic Acid 2.4 H* 07/16/24 01:43: POC Glucose 123 H 07/16/24 06:06: POC Glucose 114 H 07/16/24 08:07: WBC 6.8, RBC 4.94, Hgb 13.1, Hct 42.5, MCV 86.0, MCH 26.5 L, M CHC 30.8 L, RDW Std Deviation 51.8 H, RDW Coeff of Cristal 16.7 H, Plt Count 173, MPV 10.3, Immature Gran % (Auto) 0.300, Neut % (Auto) 70.4 H, Lymph % (Auto) 17.4 L, [place] % (Auto) 7.8, Eos % (Auto) 3.4, Baso % (Auto) 0.7, Absolute Neuts (auto) 4.8, Absolute Lymphs (auto) 1.18, Nucleated RBC % 0, Sodium 142, Potassium 4.0, Chloride 114 H, Carbon Dioxide 20.0 L, Anion Gap 9, BUN 32 H, Creatinine 1.13, Estim Creat Clear Calc 71.89, Est GFR (MDRD) Af Amer 82, Est GFR (MDRD) Non-Af 67, BUN/Creatinine Ratio 28.3 H, Glucose 129 H, Calcium 9.5, Magnesium 2.0 07/16/24 11:30: POC Glucose 120 H Charges/Coding Addendum Addendum: Total time of the visit including total time spent in counseling or coordination of care, (more than 50% of the total time, spent in obtaining medical information from nurses and other ancillary care providers ,explaining to the patient about labs, imaging, diagnosis and management of active complex medical conditions), discussion with the regarding the care, review of labs and imaging is 35 minutes. Visit Charges Inpatient E&M: 98486 Subs Hosp L3
--- NOTE | 2024-07-16 16:39 | CASEMGMT ---
Met with patient to complete CLARK form. CLARK form explained to patient who voiced understanding and signed form. Original form placed in pt?s chart and copy provided to patient. Evelina Hernandez, Discharge Planning Asst
[2024-07-16 17:01] LABS: Bedside Glucose 88 mg/dL (74-106)
[2024-07-16 22:02] LABS: Bedside Glucose 119 mg/dL (74-106)
[2024-07-17] VITALS (8 sets, daily range): BP systolic 99–122; BP diastolic 62–78; PULSE 64–83; RESP 16–20; TEMP 36.3–36.6; O2SAT 94–98; BMI 28.1
[2024-07-17 06:54] LABS: Bedside Glucose 114 mg/dL (74-106)
[2024-07-17] MEDS: Albuterol 2.5 MG/3 ML VIAL.NEB. INHALATION ×2 (06:56→13:32)
[2024-07-17] MEDS: Budesonide Respules 0.5 MG/2 ML AMPUL.NEB. INHALATION (06:56)
--- NOTE | 2024-07-17 07:54 | DCINST_ITS ---
Discharge Instructions Diet Discharge Diet: 6 Cup Fluid Restriction and 2000 mg Sodium Diet DC O2, CPAP, BIPAP needs Home O2 Discharge instructions: No Dressing / Incision Discharge Activity: Return to Normal Activity Weight Bearing Status: Weight bearing as tolerated Dressing / Incision Call your doctor if you observe: Fever of 101 or Higher, Coldness, Increased Pain, Numbness or Tingling, Change in Color, Inability to urinate, Inability to have a bowel movement, Shortness of breath, Dizziness, Fainting spells, Swelling in the ankles, Chest pain, Prolonged hiccupping, Increased palpitations (irregular heartbeat) and Calf discomfort Follow Up Care When: IN 2 WEEKS Test Results: Test results from this visit will be discussed in further detail at your follow- up appointment, if applicable. Discharge Plan Admission Admit Date/Time: 07/15/24 19:07 Primary Reason for Your Visit: Syncope most likely due to hypotension Attending Provider: Shlomo Guido Primary Care Provider: Roberto Carlos Fernandes Consulting Providers: Nelida Malik Discharge Orders/Prescriptions Prescriptions: New sacubitril-valsartan [Entresto] 24-26 mg Tablet 0.5 - 1 tab PO BID 30 Days Qty: 30 2RF Rx Instructions: Hold for 1 full tablet for SBP more than 100 mmHg. If SBP less than 100 but more than 90 mmHg give half tablet twice daily. Hold sacubitril if SBP less than 90 mmHg Continued magnesium oxide 400 MG tablet 400 mg PO DAILY Patient Comments: supplement multivitamin,hj-xxsb-If-FA-min 1 EACH tablet 1 ea PO DAILY Patient Comments: vitamin metformin 1,000 MG tablet 1,000 mg PO BIDCM Patient Comments: diabetes/ control blood sugar levels, takes at 1200 pramipexole 0.25 MG tablet 0.25 mg PO QHS Patient Comments: restless legs fluticasone propionate 1 SPRAY spray,suspension 2 spray NASAL DAILY Patient Comments: ALLERGIES fluticasone furoate-vilanterol 1 EACH blister with device 1 puff INHALATION DAILY Patient Comments: INHALE 1 PUFF BY MOUTH ONCE DAILY WITH GOOD ORAL CARE albuterol sulfate 90 mcg/actuation HFA aerosol inhaler 2 puff INHALATION Q4H PRN PRN (Reason: sob & or wheezing) Patient Comments: INHALE 2 PUFFS BY MOUTH EVERY 4 HOURS NEEDED FOR SHORTNESS OF BREATH AND WHEEZING aspirin 81 mg Tablet,Chewable 81 mg PO DAILY atorvastatin 40 mg tablet 40 mg PO QHS bupropion HCl 150 mg tablet extended release 24 hr 150 mg PO DAILY acetaminophen 325 mg Tablet 1,000 mg PO Q6H PRN PRN (Reason: Pain 1-10 Or Fever >100.7) Qty: 0 0RF meclizine 25 mg tablet 25 mg PO TID PRN (Reason: dizziness) Qty: 20 0RF Eliquis 5 mg tablet 5 mg PO Q12H Patient Comments: [NO ORIGINAL SIG] potassium chloride 20 mEq tablet,ER particles/crystals 20 meq PO DAILY metoprolol succinate 25 mg tablet extended release 24 hr 25 mg PO DAILY Patient Comments: [NO ORIGINAL SIG] budesonide 1 mg/2 mL suspension for nebulization 1 mg inhalation BID cholecalciferol (vitamin D3) 25 mcg (1,000 unit) capsule 1,000 unit PO DAILY amiodarone 200 mg tablet 200 mg PO Q12H Patient Comments: [NO ORIGINAL SIG] sertraline 25 mg tablet 25 mg PO DAILY Changed furosemide 40 mg tablet 40 mg PO LUNCH 30 Days Qty: 0 0RF Rx Instructions: Hold for SBP less than 100 mmHg Discontinued sacubitril-valsartan [Entresto] 49-51 mg tablet 0.5 tab PO BID Referrals / Follow Up: Brendon Leach MD [Med Staff - Active Staff] - Within 2 Weeks (Has appointment on 07/26/2024) Roberto Carlos Fernandes MD [Primary Care Provider] - Disposition Disposition (needs filled in before D/C Order can be placed): Home, Self Care
[2024-07-17] MEDS: Amiodarone 200 MG Tablet PO (09:55)
[2024-07-17] MEDS: Aspirin 81 MG TAB.CHEW PO (09:56)
[2024-07-17] MEDS: Magnesium Chloride 64 MG Delay Rel.Tablet 128 MG PO (09:56)
[2024-07-17] MEDS: buPROPion (XL) 150 MG TABLET.XL PO (09:56)
[2024-07-17] MEDS: APIXABAN 5 MG TABLET PO (09:57)
[2024-07-17] MEDS: Metoprolol(XL)Succ 25 MG Tablet PO (09:58)
[2024-07-17] MEDS: Sertraline 50 MG Tablet 25 MG PO (09:58)
[2024-07-17] MEDS: SACUBITRIL/VALSARTAN 24/26 MG TABLET PO (11:44)
[2024-07-17 12:31] LABS: Bedside Glucose 117 mg/dL (74-106)
--- NOTE | 2024-07-17 14:17 | PCM.DC.SUM ---
Providers Date of Admission: 07/15/24 Date of Discharge: 07/17/24 Primary Care Physician: Dr. Roberto Carlos Fernandes MD Reason For Visit: SYNCOPE Diagnosis Discharge Diagnosis (1) Syncope: Status: Acute Code(s): R55 - Syncope and collapse Plan This 74-year-old gentleman with history of CAD status post CABG and AVR in March 2014 came to ED with syncope. Prior to that he went to [facility] A-fib [facility] where he was cardioverted and then discharged home. At home he passed out started feeling dizzy and lightheaded. Denies chest pressure or acute shortness of breath. Has chronic low BP from low EF 1. Acute on recurrent syncope probably due to hypotension/cardiac syncope: Patient is being admitted in PCU. His orthostatic vitals positive. Patient on Entresto, discussed about the dose 1 tablet twice daily and decrease to half tablet twice daily if SBP less than 100 and hold completely if SBP less than 90. Lactic acidosis from hypotension. Twelve-lead EKG showed normal sinus rhythm with left bundle branch block similar to 06/29. CT head no acute process. Patient was recently discharged yesterday from [facility] After putting continuous Holter monitor. Troponins normal. 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 Patient has appointment Dr. Leach on July 2607/17: Patient blood pressure is 122/78. Ortho vitals were done. Negative for orthostatic hypotension. 2D echo was done recently on 06/29/2024 Interpretation Summary Mildly dilated left ventricular cavity. Severe generalized LV hypokinesis. Estimated LVEF 15 to 20%. Bioprosthetic aortic valve functioning normally. Trivial regurgitation. Small loculated posterior pericardial effusion. 2. JIMMY: IV fluid given. BUN/creatinine was 38/1.6 improved to 32/1.13. JIMMY resolved. Prerenal from hypotension. Serum magnesium 2.0. Serum calcium normal. #SIVAKUMAR -Continue home NIPPV if applicable # A-fib status post cardioversion -Presently normal sinus rhythm -Continue Eliquis, amiodarone, beta-hue. Entresto dose discussed above #Hx CAD s/p CABG -Continue patient's statin, beta-hue, Eliquis #Type 2 diabetes mellitus -Glucose checks and sliding scale insulin # Asthma -Continue home inhalers #Depression/anxiety -Continue home medications # History of PE -Continue Eliquis # Chronic heart failure with reduced ejection fraction -Daily weights, I's and O's -Last echocardiogram 06/29/2024 with severe generalized LV hypokinesis with EF 15 to 20%. Lasix as needed. -Continue beta-hue #DVT ppx: Continue home Eliquis Discharge medication reconciliation done. Discharge follow-up instructions completed. Discharge process discussed with the patient and all questions were answered to patient's satisfaction. Follow with PCP in 1 to 2 weeks Total time spent, exact 35 minutes on discharge meds reconciliation, examination, coordination of care with nurses and ancillary staff, review of imaging and blood test and discussion with the patient on follow-up instructions. Medications at Discharge Home Medications magnesium oxide 400 mg (241.3 mg magnesium) tablet 400 mg PO DAILY supplement 11/25/14 metformin 1,000 mg tablet 1,000 mg PO BIDCM diabetes 11/25/14 multivitamin,ve-llcr-Mt-FA-min 1 ea PO DAILY vitamin 11/25/14 pramipexole 0.25 mg tablet 0.25 mg PO QHS restless legs 11/25/14 fluticasone propionate 50 mcg/actuation nasal spray,suspension 2 spray DAILY allergies 02/24/16 fluticasone furoate 200 mcg-vilanterol 25 mcg/dose inhalation powder 1 puff inhalation DAILY breathing 03/25/20 albuterol sulfate 90 mcg/actuation aerosol inhaler 2 puff inhalation Q4H PRN PRN sob & or wheezing 02/27/21 aspirin 81 mg chewable tablet 81 mg PO DAILY heart health 12/11/21 atorvastatin 40 mg tablet 40 mg PO QHS cholesterol 08/07/23 bupropion HCl 150 mg 24 hr tablet, extended release 150 mg PO DAILY mental health 08/07/23 acetaminophen 325 mg tablet 1,000 mg (3.0769 x 325 mg) PO Q6H PRN PRN Pain 1-10 Or Fever >100.7 #0 tabs 08/08/23 meclizine 25 mg tablet 25 mg PO TID PRN dizziness #20 tabs 08/08/23 apixaban 5 mg tablet (Eliquis) 5 mg PO Q12H blood thinner 06/28/24 budesonide 1 mg/2 mL suspension for nebulization 1 mg inhalation BID breathing 06/28/24 cholecalciferol (vitamin D3) 25 mcg (1,000 unit) capsule 1,000 unit PO DAILY vitamin 06/28/24 metoprolol succinate 25 mg tablet,extended release 24 hr 25 mg PO DAILY blood pressure 06/28/24 potassium chloride 20 mEq tablet,extended release(part/cryst) 20 meq PO DAILY supplement 06/28/24 amiodarone 200 mg tablet 200 mg PO Q12H 07/15/24 sertraline 25 mg tablet 25 mg PO DAILY 07/15/24 furosemide 40 mg tablet 40 mg PO LUNCH diuretic 30 days #0 tabs 07/17/24 sacubitril 24 mg-valsartan 26 mg tablet (Entresto) 0.5 - 1 tab PO BID 1 month #30 tabs 07/17/24 Physical Exam Narrative Seen and examined. Patient did well today. No dizziness or lightheadedness. Orthostatic vitals were negative. Patient and his educated about dose of Entresto and furosemide. Physical exam General: Alert, Oriented x3, Cooperative HEENT: Atraumatic, PERRLA, EOMI, Normocephalic Oral: No Gingival or Mucosal Lesions/ Ulcerations Neck: Supple, No JVD, Negative Carotid Bruits Chest wall/Lungs: Air entry diminished in bilateral lung bases. No crepitation/rhonchi Cardiovascular: Irregular rhythm. A-fib, heart rate controlled. Cutaneous heart monitor. Systolic murmur. Open heart surgery. Status post CABG and AVR Abdomen: Bowel Sounds Present, Soft, Non Tender, Non-Distended : No dysuria. No renal angle tenderness. No suprapubic tenderness. Extremities: Mild edema, Capillary Refill Less than 3 Seconds Skin: No rashes, No breakdown Musculoskeletal: No Tenderness to Palpation of Joints or Extremities Neurological: Cranial nerves II-XII grossly intact, DTR 2+/4. No acute focal neurological deficit. Psych/Mental Status: Normal Affect, Appropriate. Weight / BMI Weight Weight: 213 lb 2.992 oz Body Mass Index (BMI) 28.1 ABG / Lab / Microbiology Data 07/16/24 08:07 07/16/24 08:07 Laboratory: Laboratory Results - last 24 hr 07/16/24 16:42: POC Glucose 88 07/16/24 21:37: POC Glucose 119 H 07/17/24 06:14: POC Glucose 114 H 07/17/24 12:11: POC Glucose 117 H Microbiology: Microbiology 07/15/24 16:13 Urine, Clean Catch Urine Culture - Preliminary Culture exhibits no growth. D/C Instructions Discharge Diet: 6 Cup Fluid Restriction and 2000 mg Sodium Diet Weight Bearing Status: Weight bearing as tolerated Call your doctor if you observe: Fever of 101 or Higher, Coldness, Increased Pain, Numbness or Tingling, Change in Color, Inability to urinate, Inability to have a bowel movement, Shortness of breath, Dizziness, Fainting spells, Swelling in the ankles, Chest pain, Prolonged hiccupping, Increased palpitations (irregular heartbeat) and Calf discomfort DC O2, CPAP, BIPAP Needs PSN CPAP & BiPAP: BiPAP & CPAP Settings per PSN Mode CPAP 07/16/24 01:54 Bipap Delivery Device Face Mask 07/16/24 01:54 BiPAP Expiratory Pressure 10 07/16/24 01:54 Fraction of Inspired Oxygen ( 28 07/16/24 01:54 FIO2) Total Flow Rate 2 07/16/24 01:54 Home O2 Discharge instructions: No When: IN 2 WEEKS Meaningful Use Info Meaningful Use Meaningful Use Diagnoses (Choose all that apply): None applicable Ischemic Stroke Statin Dosing Therapy Reference: STATIN DOSE THERAPY REFERENCE: * Patients > 75 years receive moderate or high dose statin therapy. * Patients 75 years or YOUNGER should receive HIGH intensity statin dose unless contraindicated. You will be required to document reason for non-treatment if statin daily dose does not meet guidelines. HIGH DOSE STATIN THERAPY DAILY Atorvastatin > than or = to 40 mg Rosuvastatin > than or = to 20 mg Amlodipine + Atorvastatin > than or = to 2.5/40 mg Ezetimibe + Simvastatin 10/80 mg Simvastatin 80mg Discharge Plan Admission Admit Date/Time: 07/15/24 19:07 Primary Reason for Your Visit: Syncope most likely due to hypotension Attending Provider: Shlomo Guido Primary Care Provider: Roberto Carlos Fernandes Consulting Providers: Nelida Malik Discharge Orders/Prescriptions Prescriptions: New sacubitril-valsartan [Entresto] 24-26 mg Tablet 0.5 - 1 tab PO BID 30 Days Qty: 30 2RF Rx Instructions: Hold for 1 full tablet for SBP more than 100 mmHg. If SBP less than 100 but more than 90 mmHg give half tablet twice daily. Hold sacubitril if SBP less than 90 mmHg Continued magnesium oxide 400 MG tablet 400 mg PO DAILY Patient Comments: supplement multivitamin,sh-honl-Hr-FA-min 1 EACH tablet 1 ea PO DAILY Patient Comments: vitamin metformin 1,000 MG tablet 1,000 mg PO BIDCM Patient Comments: diabetes/ control blood sugar levels, takes at 1200 pramipexole 0.25 MG tablet 0.25 mg PO QHS Patient Comments: restless legs fluticasone propionate 1 SPRAY spray,suspension 2 spray NASAL DAILY Patient Comments: ALLERGIES fluticasone furoate-vilanterol 1 EACH blister with device 1 puff INHALATION DAILY Patient Comments: INHALE 1 PUFF BY MOUTH ONCE DAILY WITH GOOD ORAL CARE albuterol sulfate 90 mcg/actuation HFA aerosol inhaler 2 puff INHALATION Q4H PRN PRN (Reason: sob & or wheezing) Patient Comments: INHALE 2 PUFFS BY MOUTH EVERY 4 HOURS NEEDED FOR SHORTNESS OF BREATH AND WHEEZING aspirin 81 mg Tablet,Chewable 81 mg PO DAILY atorvastatin 40 mg tablet 40 mg PO QHS bupropion HCl 150 mg tablet extended release 24 hr 150 mg PO DAILY acetaminophen 325 mg Tablet 1,000 mg PO Q6H PRN PRN (Reason: Pain 1-10 Or Fever >100.7) Qty: 0 0RF meclizine 25 mg tablet 25 mg PO TID PRN (Reason: dizziness) Qty: 20 0RF Eliquis 5 mg tablet 5 mg PO Q12H Patient Comments: [NO ORIGINAL SIG] potassium chloride 20 mEq tablet,ER particles/crystals 20 meq PO DAILY metoprolol succinate 25 mg tablet extended release 24 hr 25 mg PO DAILY Patient Comments: [NO ORIGINAL SIG] budesonide 1 mg/2 mL suspension for nebulization 1 mg inhalation BID cholecalciferol (vitamin D3) 25 mcg (1,000 unit) capsule 1,000 unit PO DAILY amiodarone 200 mg tablet 200 mg PO Q12H Patient Comments: [NO ORIGINAL SIG] sertraline 25 mg tablet 25 mg PO DAILY Changed furosemide 40 mg tablet 40 mg PO LUNCH 30 Days Qty: 0 0RF Rx Instructions: Hold for SBP less than 100 mmHg Discontinued sacubitril-valsartan [Entresto] 49-51 mg tablet 0.5 tab PO BID Referrals / Follow Up: Brendon Leach MD [Med Staff - Active Staff] - Within 2 Weeks (Has appointment on 07/26/2024) Roberto Carlos Fernandes MD [Primary Care Provider] - Disposition Disposition (needs filled in before D/C Order can be placed): Home, Self Care Charges/Coding Visit Charges Inpatient E&M: 86105 Disch Hosp >30min
--- NOTE | 2024-07-17 15:02 | CASEMGMT ---
Pt has an order for DC placed. RN CM to pt room at this time, pt at bedside. Pt states that he feels safe returning home with his and denies the need for HH, OP Tx, or CCN. 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 Pt has a prescription for Entresto. Pt states that he already takes this at home and that this new Rx simply is a decreased dose. Pt states that they are able to afford the medication after insurance and declines needs. Pt and pt deny further questions or concerns at this time. Pt RN updated.
--- NOTE | 2024-07-17 15:04 | PHA.DC.MR.R ---
Pharmacy OR Med Reconciliation Pharmacy Service has performed discharge medication reconciliation for this patient. The patient's discharge medication list was reviewed for discrepancies and discrepancies were resolved. Medications at Discharge Home Medications magnesium oxide 400 mg (241.3 mg magnesium) tablet 400 mg PO DAILY supplement 11/25/14 metformin 1,000 mg tablet 1,000 mg PO BIDCM diabetes 11/25/14 multivitamin,dc-yxcp-Jj-FA-min 1 ea PO DAILY vitamin 11/25/14 pramipexole 0.25 mg tablet 0.25 mg PO QHS restless legs 11/25/14 fluticasone propionate 50 mcg/actuation nasal spray,suspension 2 spray DAILY allergies 02/24/16 fluticasone furoate 200 mcg-vilanterol 25 mcg/dose inhalation powder 1 puff inhalation DAILY breathing 03/25/20 albuterol sulfate 90 mcg/actuation aerosol inhaler 2 puff inhalation Q4H PRN PRN sob & or wheezing 02/27/21 aspirin 81 mg chewable tablet 81 mg PO DAILY heart health 12/11/21 atorvastatin 40 mg tablet 40 mg PO QHS cholesterol 08/07/23 bupropion HCl 150 mg 24 hr tablet, extended release 150 mg PO DAILY mental health 08/07/23 acetaminophen 325 mg tablet 1,000 mg (3.0769 x 325 mg) PO Q6H PRN PRN Pain 1-10 Or Fever >100.7 #0 tabs 08/08/23 meclizine 25 mg tablet 25 mg PO TID PRN dizziness #20 tabs 08/08/23 apixaban 5 mg tablet (Eliquis) 5 mg PO Q12H blood thinner 06/28/24 budesonide 1 mg/2 mL suspension for nebulization 1 mg inhalation BID breathing 06/28/24 cholecalciferol (vitamin D3) 25 mcg (1,000 unit) capsule 1,000 unit PO DAILY vitamin 06/28/24 metoprolol succinate 25 mg tablet,extended release 24 hr 25 mg PO DAILY blood pressure 06/28/24 potassium chloride 20 mEq tablet,extended release(part/cryst) 20 meq PO DAILY supplement 06/28/24 amiodarone 200 mg tablet 200 mg PO Q12H 07/15/24 sertraline 25 mg tablet 25 mg PO DAILY 07/15/24 furosemide 40 mg tablet 40 mg PO LUNCH diuretic 30 days #0 tabs 07/17/24 sacubitril 24 mg-valsartan 26 mg tablet (Entresto) 0.5 - 1 tab PO BID 1 month #30 tabs 07/17/24
== END 2024-07-17 14:16 | disposition home or self-care (01) ==
LOC: ED 19:12 → PCU 07-16 03:50 → MS2 07-16 11:50
PROVIDERS: Admitting Provider Internal Medicine; Emergency Provider Emergency Medicine; PCP Family Medicine; Referring Provider Internal Medicine; Visit Provider Internal Medicine
DX: R55 Syncope and collapse (principal); I11.0 Hypertensive heart disease with heart failure; I50.22 Chronic systolic (congestive) heart failure; J44.89 Other specified chronic obstructive pulmonary disease; I48.91 Unspecified atrial fibrillation; E11.9 Type 2 diabetes mellitus without complications; Z79.51 Long term (current) use of inhaled steroids; I44.7 Left bundle-branch block, unspecified; Z95.1 Presence of aortocoronary bypass graft; Z79.01 Long term (current) use of anticoagulants; Z79.84 Long term (current) use of oral hypoglycemic drugs; Z86.711 Personal history of pulmonary embolism; Z79.82 Long term (current) use of aspirin; Z79.899 Other long term (current) drug therapy; I25.10 Atherosclerotic heart disease of native coronary artery without angina pectoris; G47.33 Obstructive sleep apnea (adult) (pediatric); N17.9 Acute kidney failure, unspecified; F41.9 Anxiety disorder, unspecified; F32.A Depression, unspecified
CPT/HCPCS: 36415; 70450; 71045; 80048; 80076; 81001; 82962; 83605; 83735; 84484; 85025; 85610; 85730; 87040; 87086; 93005; 94640; 94660; 94668; 96360; 96361; 99221; 99284; A4216; G0378

== ENCOUNTER → 2024-08-01 | Outpatient (CLI) | payer MEDICARE, OTHER, SELFPAY ==
[2024-08-01 17:21] LABS: Absolute Neutrophil Count 6.9 X10^3/uL (2.0-7.7); Basophil# 0.07 X10^3/uL; Basophil% 0.7 % (0-1); Eosinophil# 0.42 X10^3/uL; Eosinophils% 4.3 % (0-5); Hematocrit 47.4 % (40-54); Hemoglobin 14.8 g/dL (13.0-16.5); Lymphocyte % 15.4 % (19-41); Mean Corp Hgb Conc 31.2 g/dL (32-36); Mean Corpuscular Hgb 26.5 pg (27.0-32.0); Mean Corpuscular Volume 84.9 fL (80-94); Mean Platelet Vol. 10.5 fl (6.2-12.0); Monocyte# 0.73 X10^3/uL; Monocyte% 7.5 % (0-10); NRBC Flagged by Analyzer 0 % (0-5); Neutrophil # 6.94 X10^3/uL (2.7-7.7); Neutrophil % 71.6 % (47-70); Platelet Count 210 K/mm3 (150-450); RBC Distribution Width CV 17.5 % (11.6-14.6); RBC Distribution Width SD 52.7 fl (35.1-43.9); Red Blood Count 5.58 M/mm3 (4.6-6.2); White Blood Count 9.7 K/mm3 (4.4-11.0)
[2024-08-01 17:47] LABS: Vitamin D,25 Hydroxy 43.4 ng/mL
[2024-08-01 17:53] LABS: AST(SGOT) 32 U/L (15-37); Alanine Aminotransfer ALT/SGPT 57 U/L (16-61); Albumin, Serum 3.6 g/dL (3.2-5.0); Alkaline Phosphatase 86 U/L (45-117); Anion Gap 9 (5-15); BUN 35 mg/dL (7-18); BUN/Creat Ratio 23.6 RATIO (10-20); Calcium,Total 10.1 mg/dL (8.5-10.1); Chloride 110 mmol/L (98-107); Creatinine, Serum 1.48 mg/dL (0.70-1.30); EST Glomerular Filtration Rate 49 mL/min (>60); Est Glom Filt Rate - Afr Amer 60 mL/min (>60); Globulin 3.6 g/dL (2.2-4.2); Glucose 99 mg/dL (74-106); Potassium 4.1 mmol/L (3.5-5.1); Protein, Total 7.2 g/dL (6.4-8.2); Sodium Level 142 mmol/L (136-145)
[2024-08-01 18:26] LABS: Hepatitis C Antibody Non-Reactive (Nonreactive)
== END | disposition home or self-care (01) ==
LOC: LAB 16:29
PROVIDERS: PCP Family Medicine; Referring Provider Family Medicine Geriatric Medicine; Visit Provider Family Medicine Geriatric Medicine
DX: E78.5 Hyperlipidemia, unspecified (principal); Z13.89 Encounter for screening for other disorder; E55.9 Vitamin D deficiency, unspecified
CPT/HCPCS: 36415; 80053; 82306; 84443; 85025; 86803

== ENCOUNTER → 2024-08-15 | Outpatient (CLI) | payer MEDICARE, OTHER, SELFPAY ==
--- NOTE | 2024-08-15 13:10 | CR.HP_ITS ---
CR - History & Physical General Arrival date:: 08/15/24 Arrival time:: 13:10 Date of Referral:: 08/12/24 Date of CR Evaluation:: 08/15/24 Referring Physician: Dr. Leach Primary Diagnosis: HF with EF<35% or less History of Present Cardiac Event Onset Date Heart valve replacement or repair:: Yes Heart Failure EF <35%:: Yes Medications Ambulatory Orders ?Medication ?Instructions ?Recorded magnesium oxide 400 mg (241.3 mg 400 mg PO DAILY suppl ement 11/25/14 magnesium) tablet metformin 1,000 mg tablet 1,000 mg PO BIDCM diabetes 0 11/25/14 multivitamin,ex-ayzc-[id number]-FA-min 1 ea PO DAILY vitamin 0 11/25/14 pramipexole 0.25 mg tablet 0.25 mg PO QHS restless leg s 11/25/14 albuterol sulfate 90 mcg/actuation 2 puff inhalation Q 4H PRN PRN sob 02/27/21 aerosol inhaler & or wheezing aspirin 81 mg chewable tablet 81 mg PO DAILY heart hea lth 12/11/21 atorvastatin 40 mg tablet 40 mg PO QHS cholesterol bupropion HCl 150 mg 24 hr tablet, 150 mg PO DAILY [facility] 08/07/23 extended release meclizine 25 mg tablet 25 mg PO TID PRN dizziness # 20 tabs 08/08/23 apixaban 5 mg tablet (Eliquis) 5 mg PO Q12H blood thin ner 06/28/24 budesonide 1 mg/2 mL suspension 1 mg inhalation BID br eathing 06/28/24 for nebulization cholecalciferol (vitamin D3) 25 1,000 unit PO DAILY vi tamin 06/28/24 mcg (1,000 unit) capsule potassium chloride 20 mEq 20 meq PO DAILY supplement 0 06/28/24 tablet,extended release(part/cryst) amiodarone 200 mg tablet 200 mg PO Q12H 07/15/24 sertraline 25 mg tablet 25 mg PO DAILY 07/15/24 furosemide 40 mg tablet 40 mg PO LUNCH diuretic 30 d ays #0 07/17/24 tabs fluticasone furoate 200 1 inh inhalation QDAY mcg-vilanterol 25 mcg/dose inhalation powder (Breo Ellipta) acetaminophen 500 mg tablet 1,000 mg PO Q6H PRN fluticasone propionate 50 2 spray intranasal QDAY 07/13 10/04 mcg/actuation nasal spray,suspension (Flonase Allergy Relief) metoprolol succinate 25 mg 25 mg PO DAILY blood pressu re 07/26/24 tablet,extended release 24 hr sacubitril 24 mg-valsartan 26 mg 0.5 tab PO BID tablet tirzepatide 5 mg/0.5 mL 5 mg subcut QWEEK 07/26/24 subcutaneous pen injector (Mounjavierro) Allergies Allergies hydrochlorothiazide (hctz) Allergy (Intermediate, Verified 07/26/24 10:10) hypercalcemia erythromycin base Adverse Reaction (Verified 07/26/24 10:10) Diarrhea oxycodone (From Percocet) Adverse Reaction (Verified 07/26/24 10:10) Other INFLAMMATION OF THE GUT tramadol Adverse Reaction (Verified 07/26/24 10:10) Other INFLAMMATION OF THE GUT Sleep Disorder Evaluation Hx of Sleep Apnea: Yes Do you snore loudly (louder than talking or can be heard through closed doors)?: No Do you often feel tired/ fatigued/ sleepy during daytime?: No Has anyone observed you stop breathing during sleep?: No History of Hypertension (for STOP score): Yes STOP Results: Negative Advanced Directives Advanced Directives Power of Field Installation Technician: Yes Living Will: Yes Advance Directives Information Provided: Yes Advance Directives on File: Yes DNR Order?:: No Past Medical History Covid-19 Screening Physicial Symptoms Other Clinical Concerns Exposure Risk Pertinent Comorbidities 65 years or older:: Yes Has a serious heart condition:: Yes Past Medical Illness Past Medical History (Updated 08/15/24 @ 13:12 by Evelina Casey) Cardiac LV ejection fraction <20% R93.1 Bradycardia R00.1 History of cardioversion (07/2024) Z92.89 Cardiomyopathy I42.9 Fatty liver K76.0 CAD (coronary artery disease) I25.10 Atrial fibrillation status post cardioversion I48.91 Syncope R55 Benign paroxysmal positional vertigo H81.10 Obesity (BMI 30.0-34.9) E66.811 Chronic systolic CHF (congestive heart failure) I50.22 Chronic bundle branch block I45.4 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 Lumbar disc disease M51.9 First degree AV block I44.0 Asthma J45.909 Blindness of left eye H54.40 Rheumatoid arthritis M06.9 History of pulmonary embolism Z86.711 History of kidney stones Z87.442 Hiatal hernia K44.9 History of diverticulitis Z87.19 Limited mobility Z74.09 Depression F32.A ON MED/LOST 3 YRS AGO Anxiety F41.9 WITH BLOOD DRAWS AND IV'S Restless legs G25.81 ON MED Back pain M54.9 LOWER BACK PAIN/ARTHRITIS/DISC ISSUES/SCIATIC PAIN/BACK INJECTIONS PRN 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 Kidney stones N20.0 CPAP (continuous positive airway pressure) dependence Z99.89 Pulmonary embolism I26.99 H/O bicuspid aortic valve Z87.74 COPD (chronic obstructive pulmonary disease) J44.9 ON INHALER Diabetes mellitus E11.9 Sleep apnea G47.30 Hypertension I10 Past Surgical History Past Surgical History (Updated 08/12/24 @ 09:48 by Evelina Casey) S/P AVR (aortic valve replacement) (03/20/24) Z95.2 Redo 27 Magma Tissue AVR and ascending aorta replacement with #28 gelweave History of coronary artery bypass graft Z95.1 S/P aortic valve repair Z98.890 Replacement 11/17/14, dr mejia, [facility] Hx of cystoscopy Z98.890 WITH LEFT STENT 11/2021 History of thoracic aortic aneurysm repair Z98.890, Z86.79 H/O shoulder replacement Z96.619 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 Surgical History: rotator cuff repair (right 2013), total knee arthroplasty (2013, right) and - (left eyr reoval d/t trauma,) Family History Summary Family History Mother Asthma Father CVA (cerebral vascular accident) Pulmonary embolism Brother Diabetes Hypertension Grandmother CVA (cerebral vascular accident) Heart disease Grandfather Heart disease Social History Smoking History Smoking Status: Never smoker Alcohol Use Alcohol Usage: No Substance Abuse Hx Substance Use: No Occupation Occupation (List type of work in comments):: Retired Social Environment Status Marital Status: Current Living Arrangements Living Environment:: Spouse Children How many children do you have?: 3 Do any of your children live nearby?: No Safety Do you feel safe in your surroundings?: Yes Assistance Do you need any assistance at home?: no Review of Systems Review of Systems Hints Review of Present Symptoms: Reports Shortness of Breath at Rest, Shortness of Breath with Exertion, Angina, Dizziness/Lightheadedness, Fatigue and Appetite - Special Diet; Denies PVD, Operative Discomfort, Wound Healing, Heart Arrhythmia/Irregularities, Appetite - Normal, Sleep - Normal or Sexual Changes Pain Is Patient Pain Free?: No Pain Location: other (knee, back, shoulder) Pain Level: 11/19 Risk Factor Assessment Chief Complaint Chief Complaint: HF with EF<35% or less Vital Signs Pulse Ox: 96 Blood Pressure: 130/70 Pulse Pulse Rate: 57 Pulse Rhythm: Regular Hypertension How long have you been treated?: 30+ years Blood Pressure Sitting - Right Arm: 130/70 Diabetes Diabetic History: Type II Nutrition Referral for Diabetes: No Obesity Height: 6 ft 1 in Weight:: 220 lb Weight in Pounds: 220.0 lbs Body Mass Index (BMI): 29.0 Nutritional Referral for Obesity: Yes Physical Inactivity Physical Inactivity: Reg Exercise 30 min/day Risk Stratification Risk Guidelines: Moderate Risk: Risk Factor for Smoking, Risk Factor for Dyslipidemia, Risk Factor for Obesity and Risk Factor for Sedentary Lifestyle and Highest Risk: Risk Factor for Diabetes, Risk Factor for Hypertension and Risk Factor for Depression For Smoking Smoking Risk Guidelines For Dyslipidemia Dyslipidemia Risk Guidelines For Diabetes Mellitus Diabetes Risk Guidelines For Obesity/Overweight Obesity/Overweight Risk Guidelines For Hypertension Hypertension Risk Guidelines For Sedentary Lifestyle Sedentary Lifestyle Risk Guidelines For Depression Depression Risk Guidelines Family History Family History Mother Asthma Father CVA (cerebral vascular accident) Pulmonary embolism Brother Diabetes Hypertension Grandmother CVA (cerebral vascular accident) Heart disease Grandfather Heart disease Motivation Motivation to Participate On a scale of 1 to 10, how prepared are you to commit to attending program?: 7 What do you see as barriers to successfully being able to complete the program?: nothing What do you see as the benefits of succesfully completing the program? In other words, what do you hope to get out of participating in the program?: more energy Are there issues you are dealing with that will interfere with completing the program?: no Do you have a spouse or signficant other, family or friends who will help support you to complete the program?: yes
--- NOTE | 2024-08-15 13:14 | PCM.CR.ITP ---
Diagnosis General Information Admitting Diagnosis: HF with EF<35% or less Personal Learning Style:: Audio/Visual Barriers to Learning: No Barriers Stage of change r/t lifestyle modifications:: Contemplation Gave educational material for:: Treating Heart Disease, How The Heart Works, What it means to have Heart Disease, How Coronary Artery Disease is Diagnosed, Heart Procedures, What Heart Medications Do, Risk Factors & Modifications, Living an Active Life, Nutrition, Emotions & Heart Disease, Stress Management & Relaxation and Sleep Disorders & Heart Disease Education/Goals Cardiac Rehabilitation Goals Personal Goals: Initial Assessment: Improve management of stress and emotions, Improve energy level, Participate in home exercise program, Get back to work, or to resume activities faster, Improve knowledge of cardiac disease, Improve muscle strength and endurance, Improve diet and eating habits (eat healthier) and Control risk factors (learn risk factor modification) Scale for measuring improvement of personal goals Diagnosis & Disease Process Outcomes/Goals: Pt IDs own risk factors & lifestyle modifications by Session 10, Verbalizes symptoms of angina & response by session 3., Pt independently manages and Other Additional Outcomes/Goals: Plan/Interventions: Assist Pt to ID & engage in lifestyle modification to reduce CVD risk, Instruct on individual risk factors, Review symptoms of angina & emergency actions, Review secondary diagnosis & identify educational needs. and Other see comment 30 day Reassessments:: Not Met 30 day Reassessments:: Not Met 30 day Reassessments:: Not Met 30 day Reassessments:: Not Met Final Reassessments:: Not Met Safety Referral to Physical Therapy: No Referral to [facility] Case Management: No Fall Risk Assessed:: Yes Assistive Devices:: None Exercise - Initial Assessment Visit Date of Eval: 08/15/24 (initial eval ) Mets: Pre-: >3 METS for 30 minutes by discharge, >5 METS for 30 minutes by discharge, >7 METS for 30 minutes by discharge and Unable to meet goal due to: (see comment below) Physician Prescribed Exercise Modalities: Treadmill, Rower, Myriam Ferrellne AD-7, SciFit Stepper, SciFit Pro-II Ergometer and SciFit Lateral Duster Tender Frequency: 3x/week for 12 weeks [36 sessions] Intensity: 60-80% of age predicted maximum heart rate reserve Duration: 30 - 45 minutes Current METSs:: 3 Target Heart Rate:: 88-110 Resting Blood Pressure: 130/70 EKG Type: ST w/ LBBB Outcomes & Goals Goals:: Verbalizes understanding of THR, RPE & goal METS by session 6, Documents in home exercise log/reports 30 min aerobic 5 day/wk by DC, Demonstrates accurate pulse taking by DC and Other additional outcome/goals: see below Intervention & Plan Exercise Program Goals: Instruct on personal THR & RPE, Instruct on MET level & personal MET goal, Show patient to take own pulse /validate performance until accurate, Instruct on home exercise and Other additional plan/int Physical Activity Home Exercise Physical Activity - Home Exercise: Safe Exercise, Warm-up, Self-monitoring, Cool-Down, Home Exercise > 30 min Daily and Sitting Time <3 hours/daily Outcomes & Goals Outcomes/Goals: Demonstrates correct Warm-up/exercise Cool-Down (S3) if = 2.5 METs, Verbalizes symptoms of exercise intolerance by Session 3 (S3), Demonstrate safe equipment use (S3) & follows exercise prescrition (6) and Other: See below Intervention & Plan Plan/Intervention: Instruct warm-up & cool-down if exercising at > 2 METs, Instruct on symptoms of exercise intolerance & actions to take, Instruct & monitor on saf, Assess intial functional capacity & safety risk and Other See below Nutrition - Initial Assessment Program Goals Nutrition Program Goals Patient has diagnosis of Hyperlipidemia (ICD E78)?: No Visit Date of Eval: 08/15/24 (initial eval ) Cholesterol/Lipids (Other Core Measures) Determine presence & major risk factors that modify LDL goal: Hypertension or hypertensive medication, Low HDL cholesterol <40 mg/dL*, Family history of premature CHD in Male < 55 years: female <65 yearsFa and Age men > 45 years; women >/= 55 years Outcomes/Goals: Pt IDs own risk factors & lifestyle modifications by Session 10, Verbalizes symptoms of angina & response by session 3., Pt independently manages and Other Additional Outcomes/Goals: Intervention/Plan: Advocate for lipid panel cholesterol medication if applicable, Instruct on personal lipid levels & lipid goals/NCEP guidelines, Instruct on cholesterol and Other additional plan/int Referral to dietitian:: Yes Diabetes (Other Core Measures) Diabetes Type: Diagnosis Type II ICD-10 E11 Insulin dependent injection/pump?: No Non-Insulin Dependent?: Yes Do you monitor your blood sugar at home?: Yes Weight Mgt (Other Care) Height: 6 ft 1 in Weight:: 220 lb BMI: 29.0 Diagnosis Overweight/Obesity BMI> 30% ICD-10 E66: No Diagnosis High BMI/Morbid Obesity BMI> 35% ICD-10 Z68: No Outcomes/Goals: Pt sets, maintains & shows weight loss goal & trend during rehab and Other additional outcomes/goals Intervention/Plan: Instruct on ideal BMI & set weight loss goal w/patient, Assist pt to ID & incorporate diet changes for weight loss by S9, Refer to Structured Weight Loss program as appropriate, Encourage goal of using 250-300dcal per session for weight loss and Other additional plan/interventions Healthy Eating Habits Will attend diet classes:: Yes Outcomes/Goals:: Consume diet rich in vegs,fruits,whole grain/high fiber,fish,lean meat, Limit sat/trans fats,cholesterol & added salts & sugars and Other additional outcome/goals: Intervention/Plan:: Assess current eating habits and Other Additional plan/interventions Education Gave educational materials for:: Signs & symptoms of hypoglycemia, Signs & symptoms of hyperglycemia, Relate diabetes to coronary artery disease and Healthy eating Core - Initial Assessment Visit Date of Eval: 08/15/24 (initial eval ) Medication Compliance Preventative Medication(s):: Statin/lipid and Eliquis H/O mental health issues: depression, anxiety, or addiction?: Yes Doesn?t believe in the benefits of treatment?: No Believes medications are unnecessary or harmful?: No Has a concern about medication side effects?: No Expresses concern over the cost of medications?: No Outcomes/Goals: Verbalizes medications,desired effect & common side effects @ DC, Pt self-reports following medication regimen, Keeps card in wallet w/medications listed by DC and Other additional outcome/goals: Interventions/plans: Instruct on medication effects & side effects, Review medication list w/patient every two weeks, Instruct importance of taking meds as ordered & assist problem solving and Other additional Tobacco Use Tobacco Use: Non-smoker Hypertension Hypertension Diagnosis:: Hypertension ICD-10 I10 Resting Blood Pressure:: 130/70 [place] [employer] Hypertension Guidelines Outcomes/Goals: Able to verbalize/achieve optimal blood pressure <130/80, Incorporates diet changes & exercise for blood pressure control by DC and Other additional outcomes/goals Interventions/plan: Instruct on optimal blood pressure, hypertension & medications, Instruct on effects of sodium, alcohol, stress, exercise &hypertension and Other additional plan/interventions Tobacco Cessation Referral Smoking Cessation Referral:: No Individual Education/Counseling:: No Education Schedule Given:: Yes Psychosocial - Initial Assess VIsit Date of Eval: 08/15/24 (initial eval ) History of previous Mental disease:: Yes History of Emotional Disorders: Anxious and Depression Target Goals Target Goals Psychosocial Test Tool Used:: Robin Rogers QOL Cardiac and PHQ-9 Questionnaire phq-9 Severity Referral to Behavioral Health PS - Interventions: Yes: Attend Stress Management Classes Outcomes/Goals: See list Psychosocial Outcomes/Goals:: ID's personal stressors & 2 strategies to manage stress by discharge and Other Additional outcome/goals: Intervention/Plan: See List Interventions/Plan:: Assess stressors,coping strategies & signs of derpression on admission, Instruct/assist pt to develop coping & personal stress Mgt strategies, Refer to Behavioral Health if appropriate, Refer to Physician if appropriate, Instruct patient to recognize signs & symptoms of depression, Instruct patient to recog and Other additional plan/intervention Patient Health Questionnaire PHQ-9 Screening Initial Assessment: 1. Little interest or pleasure in doing things: Several days 2. Feeling down, depressed, or hopeless: Several days 3. Trouble falling or staying asleep, or sleeping too much: Several days 4. Feeling tired or having little energy: Nearly every day 5. Poor appetite or overeating: More than half the days 6. Feeling bad about yourself -- or that you are a failure or have let yourself or your family down: Several days 7. Trouble concentrating on things, such as reading the newspaper or watching television: Not at all 8. Moving or speaking so slowly that other people could have noticed. Or the opposite - being so fidgety or restless that you have been moving around a lot more than usual: Not at all 9. Thoughts that you would be better off , or of hurting yourself in some way: Not at all How difficult have these problems made it for you to do your work, take care of things at home, or get along with other people?: Somewhat difficult Total Score: 9 KARON-Q SV Test Statements CAD is a disease of the arteries in the heart: False Examples of risk factors for heart disease: True Angina is chest pain or discomfort: False The benefits of resistance training include: True Eating more meat and dairy products: False Anti-platelet medications such as aspirin are important: True The only effective way to manage stress: False An exercise warm-up slowly increases heart rate: True Prepared, processed foods usually have high sodium: True Depression is common after a heart attack: True The statin medications lower cholesterol: True To control blood pressure, lower the amount of sodium: True If someone gets chest discomfort during walking: False Transfats are partially hydrogenated vegetable oils: True Sleep apnea that is not treated increases the risk: True To control cholesterol, one should become a vegetarian: False Someone knows if he/she is exercising at the right level: True Diabetes cannot be prevented with exercise & health eating: False Stress is a large risk for heart attack: True A diet that can help lower blood pressure is rich in: True Total Score Total Correct Responses: 18 Self-Efficacy 6-Item Scale Initial Assessment: We would like to know how confident you are in doing certain activities. Please select your confidence level for: Fatigue Select Number: 5 Physical Discomfort or Pain Select Number: 5 Emotional Distress Select Number: 6 Other Symptoms or Health Problems Select Number: 6 Different Tasks and Activities Select Number: 7 Medication Select Number: 8 Total Score:: 6 Nutrition Survey Nutrition Survey Instructions Scoring Instructions Nutrition Survey Initial: Have you lost >10 lbs over the past 2 months without trying?: No Are you following a special diet at home for diabetes, low fat, or low salt?: Yes Are you interested in meeting with a dietitian for help understanding your diet?: Yes Do you eat less than 3 meals a day?: Yes Do you eat fatty meats (nuñez, sausage, ribs, etc), fried foods, desserts, large amounts of salad dressings, margarine, butter, or cheese most days?: No Do you have food allergies? [Enter types in comment field]: No Do you eat in restaurants more than 3 times a week?: No Do you season food with salt, seasoning salt, or garlic salt?: No Do you used canned, boxed, frozen meals, or soups, seasoning packets?: No Total Score:: 3 Exercise - 30-day Assessment Physician Prescribed Exercise Modalities: Treadmill, RowerMyriam AD-7, SciFit Stepper, SciFit Pro-II Ergometer and SciFit Lateral Blanding Exercise - 60-day Assessment Physician Prescribed Exercise Modalities: Treadmill, RowerMyriam AD-7, SciFit Stepper, SciFit Pro-II Ergometer and SciFit Lateral Blanding Exercise - 90-day Assessment Physician Prescribed Exercise Modalities: Treadmill, Rower, Schwinn Airdyne AD-7, SciFit Stepper, SciFit Pro-II Ergometer and SciFit Lateral Blanding Exercise - Final/Discharge Physician Prescribed Exercise Modalities: Treadmill, Rower, Schwinn Airdyne AD-7, SciFit Stepper, SciFit Pro-II Ergometer and SciFit Lateral Duster Tender Frequency: 3x/week for 12 weeks [36 sessions] Intensity: 60-80% of age predicted maximum heart rate reserve Current METSs:: 3 Target Heart Rate:: 88-110 Nutrition - 30-Day Assessment Weight Mgt (Other Care) Height: 6 ft 1 in Weight:: 220 lb BMI: 29.0 Nutrition - 60-Day Assessment Weight Mgt (Other Care) Height: 6 ft 1 in Weight:: 220 lb BMI: 29.0 Core - Final Assessment Hypertension Resting Blood Pressure:: 130/70 [place] [employer] Hypertension Guidelines Core - 60-Day Assessment Hypertension Resting Blood Pressure:: 130/70 [place] [employer] Hypertension Guidelines Psychosocial - 30-Day Assess Target Goals Target Goals Referral to Behavioral Health PS - Interventions: Yes: Attend Stress Management Classes Psychosocial - 60-Day Assess Target Goals Target Goals Referral to Behavioral Health PS - Interventions: Yes: Attend Stress Management Classes Psychosocial - 90-Day Assess Target Goals Target Goals Referral to Behavioral Health PS - Interventions: Yes: Attend Stress Management Classes Psychosocial - Final Assessmen Target Goals Target Goals Referral to Behavioral Health PS - Interventions: Yes: Attend Stress Management Classes Nutrition - 90-Day Assessment Weight Mgt (Other Care) Height: 6 ft 1 in Weight:: 220 lb BMI: 29.0 Nutrition - Final Assessment Program Goals Patient has diagnosis of Hyperlipidemia (ICD E78)?: No Weight Mgt (Other Care) Height: 6 ft 1 in Weight:: 220 lb BMI: 29.0
[2024-08-15 13:30] VITALS: BP 130/70; PULSE 57; O2SAT 96
[2024-08-15 14:21] VITALS: BP 130/70; BMI 29.0
[2024-08-15 14:23] VITALS: BMI 29.0
== END | disposition home or self-care (01) ==
LOC: CR 12:55
PROVIDERS: PCP Family Medicine; Referring Provider Internal Medicine Cardiovascular Disease; Visit Provider Internal Medicine Cardiovascular Disease
DX: E11.9 Type 2 diabetes mellitus without complications (principal)

== ENCOUNTER 2024-08-26 11:15 | Outpatient (RCR) | payer MEDICARE, OTHER, SELFPAY ==
[2024-08-15 14:21] VITALS: BMI 29.0
== END 2024-09-09 23:59 ==
LOC: CR 11:15
PROVIDERS: PCP Family Medicine; Referring Provider Internal Medicine Cardiovascular Disease; Visit Provider Internal Medicine Cardiovascular Disease
DX: R93.1 Abnormal findings on diagnostic imaging of heart and coronary circulation (principal); I50.22 Chronic systolic (congestive) heart failure; J44.9 Chronic obstructive pulmonary disease, unspecified; I42.9 Cardiomyopathy, unspecified; E11.649 Type 2 diabetes mellitus with hypoglycemia without coma; R00.1 Bradycardia, unspecified; Z95.1 Presence of aortocoronary bypass graft; G47.30 Sleep apnea, unspecified; Z95.2 Presence of prosthetic heart valve
CPT/HCPCS: 93798

== ENCOUNTER → 2024-08-29 | Outpatient (CLI) | payer MEDICARE, OTHER, SELFPAY ==
[2024-08-15 14:21] VITALS: BMI 29.0
--- NOTE | 2024-08-29 12:51 | ECHOCS_ITS ---
Reason For Study Reason For Study: Afib/Flutter Procedure This was a 2D Doppler, Color Flow transthoracic echocardiogram. Myocardial strain analysis was performed in this exam to aid in the assessment of cardiac function. Contrast injection was performed. Exam performed in department. Left Ventricle Moderately dilated left ventricle. The global longitudinal strain = -9.2% (abnormal). Moderately severe segmental systolic dysfunction (see wall motion). The left ventricular ejection fraction is 30 %. Stage 1 diastolic dysfunction. There are regional wall motion abnormalities as specified. Mid-anteroseptal : Akinetic. Basal inferoseptal: Akinetic. Mid-Lateral : Normal. Lateral-Basal: Normal. Anterio-Basal: Normal. Mid-Anterior : Normal. Atria The left atrium is moderately enlarged. Normal right atrium. Mitral Valve Normal mitral valve. Tricuspid Valve Normal tricuspid valve. Aortic Valve Trisinus/trileaflet aortic valve. Pulmonic Valve The pulmonic valve is not well visualized. Great Vessels Normal aortic root. The pulmonary artery is normal size. Inferior vena cava collapse with respiration. Pericardium/Pleural Small (<1.0 cm) pericardial effusion. Medication 22 gauge I.V. with prn adaptor inserted into left arm. Diluted definity 1.5ml given slow IV push to enhance endocardial definition. MMode/2D Measurements & Calculations LVIDd: 6.4 cm IVSd: 1.2 cm LVOT diam: 2.0 cm LVIDs: 5.7 cm LVPWd: 0.95 cm RVDd: 3.9 cm FS: 9.9 % LVOT area: 3.2 cm2 Ao root diam: 3.6 cm LAV(MOD-bp): 90.1 ml LVAd ap4: 54.7 cm2 LA dimension: 4.7 cm LAV(MOD-bp) Indexed: 39.3 ml/m2 LVLd ap4: 10.2 cm LAV(MOD-sp2): 87.0 ml EDV(MOD-sp4): 235.2 ml LAV(MOD-sp4): 90.4 ml EDV(sp4-el): 248.2 ml LVAs ap4: 44.5 cm2 LVLs ap4: 9.8 cm ESV(MOD-sp4): 167.7 ml ESV(sp4-el): 172.1 ml EF(MOD-sp4): 28.7 % EF(sp4-el): 30.7 % SV(MOD-sp4): 67.4 ml SV(sp4-el): 76.1 ml LA A4 area: 25.8 cm2 SI(MOD-sp4): 29.4 ml/m2 RA A4 area: 20.0 cm2 TAPSE: 1.4 cm Time Measurements MV dec time: 0.30 sec Doppler Measurements & Calculations MV E max mitch: 58.2 cm/sec Lat Peak E' Mitch: 6.1 cm/sec Med Peak E' Mitch: 4.0 cm/sec MV A max mitch: 93.9 cm/sec E/E' lat: 9.5 E/E' med: 14.6 MV E/A: 0.62 MV V2 max: 116.5 cm/sec MV P1/2t max mitch: 65.5 cm/sec Ao V2 max: 161.3 cm/sec MV max P.4 mmHg MV P1/2t: 106.2 msec Ao max P.4 mmHg MV V2 mean: 52.5 cm/sec MV dec slope: 180.7 cm/sec2 Ao V2 mean: 106.8 cm/sec MV mean P.3 mmHg MVA(P1/2t): 2.1 cm2 Ao mean P.3 mmHg MV V2 VTI: 28.3 cm Ao V2 VTI: 31.8 cm MVA(VTI): 2.1 cm2 AV (velocity ratio): 0.58 HOLLIE(I,D): 1.8 cm2 HOLLIE(V,D): 1.6 cm2 LV V1 max: 82.2 cm/sec SV(LVOT): 58.7 ml PA V2 max: 131.5 cm/sec LV V1 max P.7 mmHg PA V2 mean: 79.7 cm/sec LV V1 mean P.5 mmHg LV V1 mean: 56.5 cm/sec LV V1 VTI: 18.4 cm TR max mitch: 221.5 cm/sec TR max P.6 mmHg ECHO/Echo Complete W/ Contrast Interpretation Summary Moderately dilated left ventricle. The global longitudinal strain = -9.2% (abnormal). Moderately severe segmental systolic dysfunction (see wall motion). The left ventricular ejection fraction is 30 %. Stage 1 diastolic dysfunction. The left atrium is moderately enlarged. Ordering Physician: Brendon Leach Referring Physician: Brendon Leach Performed By: Jose Miguel Ya RCS
== END | disposition home or self-care (01) ==
LOC: CVS 12:49
PROVIDERS: PCP Family Medicine; Referring Provider Internal Medicine Cardiovascular Disease; Visit Provider Internal Medicine Cardiovascular Disease
DX: Z98.890 Other specified postprocedural states (principal)
CPT/HCPCS: 93306; Q9957; A4216; C8929

== ENCOUNTER 2024-09-11 07:45 | Outpatient (RCR) | payer MEDICARE, OTHER, SELFPAY ==
[2024-08-15 14:21] VITALS: BMI 29.0
--- NOTE | 2024-09-11 08:10 | PCM.CR.ITP ---
Exercise - Initial Assessment Visit Session #:: 4 Physician Prescribed Exercise Modalities: [employer] Stepper Nutrition - Initial Assessment Weight Mgt (Other Care) Height: 6 ft 1 in Weight:: 238 lb BMI: 31.4 Psychosocial - Initial Assess Target Goals Target Goals Referral to Behavioral Health PS - Interventions: Yes: Attend Stress Management Classes Patient Health Questionnaire PHQ-9 Screening 30-Day Re-eval Assessment: 1. Little interest or pleasure in doing things: Several days 2. Feeling down, depressed, or hopeless: Several days 3. Trouble falling or staying asleep, or sleeping too much: Several days 4. Feeling tired or having little energy: Nearly every day 5. Poor appetite or overeating: More than half the days 6. Feeling bad about yourself -- or that you are a failure or have let yourself or your family down: Several days 7. Trouble concentrating on things, such as reading the newspaper or watching television: Not at all 8. Moving or speaking so slowly that other people could have noticed. Or the opposite - being so fidgety or restless that you have been moving around a lot more than usual: Not at all 9. Thoughts that you would be better off , or of hurting yourself in some way: Not at all How difficult have these problems made it for you to do your work, take care of things at home, or get along with other people?: Somewhat difficult Total Score: 9 Self-Efficacy 6-Item Scale 30-Day Re-eval Assessment: We would like to know how confident you are in doing certain activities. 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 1st degree AVB Outcomes & Goals Goals:: Verbalizes understanding of THR, RPE & goal METS by session 6, Documents in home exercise log/reports 30 min aerobic 5 day/wk by DC, Demonstrates accurate pulse taking by DC and Other additional outcome/goals: see below Intervention & Plan Exercise Program Goals: Instruct on personal THR & RPE, Instruct on MET level & personal MET goal, Show patient to take own pulse /validate performance until accurate, Instruct on home exercise and Other additional plan/int Physical Activity Home Exercise Physical Activity - Home Exercise: Safe Exercise, Warm-up, Self-monitoring, Cool-Down, Home Exercise > 30 min Daily and Sitting Time <3 hours/daily Outcomes & Goals Outcomes/Goals: Demonstrates correct Warm-up/exercise Cool-Down (S3) if = 2.5 METs, Verbalizes symptoms of exercise intolerance by Session 3 (S3), Demonstrate safe equipment use (S3) & follows exercise prescrition (6) and Other: See below Intervention & Plan Plan/Intervention: Instruct warm-up & cool-down if exercising at > 2 METs, Instruct on symptoms of exercise intolerance & actions to take, Instruct & monitor on saf, Assess intial functional capacity & safety risk and Other See below 30-day Reassessments 30 day Reassessments:: Progressing Reassessment Notes & Comments:: Pt has attended 4 sessions. RPE explained to pt. Pt demonstrates understanding. Exercise - 60-day Assessment Physician Prescribed Exercise Modalities: [employer] Stepper Exercise - 90-day Assessment Physician Prescribed Exercise Modalities: [employer] Stepper Exercise - Final/Discharge Physician Prescribed Exercise Modalities: [employer] Stepper Nutrition - 30-Day Assessment Program Goals Nutrition Program Goals Patient has diagnosis of Hyperlipidemia (ICD E78)?: No Visit Date of Eval: 09/11/24 Session #:: 4 Cholesterol/Lipids (Other Core Measures) Determine presence & major risk factors that modify LDL goal: Hypertension or hypertensive medication, Low HDL cholesterol <40 mg/dL*, Family history of premature CHD in Male < 55 years: female <65 yearsFa and Age men > 45 years; women >/= 55 years Outcomes/Goals: Pt IDs own risk factors & lifestyle modifications by Session 10, Verbalizes symptoms of angina & response by session 3., Pt independently manages and Other Additional Outcomes/Goals: Intervention/Plan: Advocate for lipid panel cholesterol medication if applicable, Instruct on personal lipid levels & lipid goals/NCEP guidelines, Instruct on cholesterol and Other additional plan/int Referral to dietitian:: Yes Diabetes (Other Core Measures) Diabetes Type: Diagnosis Type II ICD-10 E11 Insulin dependent injection/pump?: No Non-Insulin Dependent?: Yes Do you monitor your blood sugar at home?: Yes Weight Mgt (Other Care) Height: 6 ft 1 in Weight:: 238 lb BMI: 31.4 Diagnosis Overweight/Obesity BMI> 30% ICD-10 E66: Yes Diagnosis High BMI/Morbid Obesity BMI> 35% ICD-10 Z68: No Outcomes/Goals: Pt sets, maintains & shows weight loss goal & trend during rehab and Other additional outcomes/goals Intervention/Plan: Instruct on ideal BMI & set weight loss goal w/patient, Assist pt to ID & incorporate diet changes for weight loss by S9, Refer to Structured Weight Loss program as appropriate, Encourage goal of using 250-300dcal per session for weight loss and Other additional plan/interventions Healthy Eating Habits Will attend diet classes:: Yes Outcomes/Goals:: Consume diet rich in vegs,fruits,whole grain/high fiber,fish,lean meat, Limit sat/trans fats,cholesterol & added salts & sugars and Other additional outcome/goals: Intervention/Plan:: Assess current eating habits and Other Additional plan/interventions 30-day Reassessments:: Progressing Reassessment Notes & Comments:: Pt will be scheduled to attend nutrition class when he is cleared to continue rehab. Education Gave educational materials for:: Signs & symptoms of hypoglycemia, Signs & symptoms of hyperglycemia, Relate diabetes to coronary artery disease and Healthy eating Nutrition - 60-Day Assessment Weight Mgt (Other Care) Height: 6 ft 1 in Weight:: 238 lb BMI: 31.4 Core - 30-Day Assessment Visit Date of Eval: 09/11/24 Session #:: 4 Medication Compliance Preventative Medication(s):: Statin/lipid and Eliquis H/O mental health issues: depression, anxiety, or addiction?: Yes Doesn?t believe in the benefits of treatment?: No Believes medications are unnecessary or harmful?: No Has a concern about medication side effects?: No Expresses concern over the cost of medications?: No Outcomes/Goals: Verbalizes medications,desired effect & common side effects @ DC, Pt self-reports following medication regimen, Keeps card in wallet w/medications listed by DC and Other additional outcome/goals: Interventions/plans: Instruct on medication effects & side effects, Review medication list w/patient every two weeks, Instruct importance of taking meds as ordered & assist problem solving and Other additional Tobacco Use Tobacco Use: Non-smoker Hypertension Hypertension Diagnosis:: Hypertension ICD-10 I10 Resting Blood Pressure:: 150/80 [place] [employer] Hypertension Guidelines Peak Exercise Blood Pressure:: 132/80 Outcomes/Goals: Able to verbalize/achieve optimal blood pressure <130/80, Incorporates diet changes & exercise for blood pressure control by DC and Other additional outcomes/goals Interventions/plan: Instruct on optimal blood pressure, hypertension & medications, Instruct on effects of sodium, alcohol, stress, exercise &hypertension and Other additional plan/interventions 30 day Reassessments:: Progressing Reassessment Notes & Comments:: Pt is on med hold. Will continue to monitor BP's and report to physician if necessary. Tobacco Cessation Referral Smoking Cessation Referral:: No Individual Education/Counseling:: No Education Schedule Given:: Yes Psychosocial - 30-Day Assess VIsit Date of Eval: 09/11/24 Session #:: 4 Not Applicable: Yes History of Emotional Disorders: Depression Target Goals Target Goals Psychosocial Test Tool Used:: Quu QOL Cardiac and PHQ-9 Questionnaire phq-9 Severity See PHQ-9 Score: 9 Referral to Behavioral Health PS - Interventions: Yes: Attend Stress Management Classes Outcomes/Goals: See list Psychosocial Outcomes/Goals:: ID's personal stressors & 2 strategies to manage stress by discharge and Other Additional outcome/goals: Intervention/Plan: See List Interventions/Plan:: Assess stressors,coping strategies & signs of derpression on admission, Instruct/assist pt to develop coping & personal stress Mgt strategies, Refer to Behavioral Health if appropriate, Refer to Physician if appropriate, Instruct patient to recognize signs & symptoms of depression, Instruct patient to recog and Other additional plan/intervention 30-day Reassessments: 30 day Reassessments:: Progressing Reassessment Notes & Comments:: Pt will be scheduled to attend stress management class upon returning to rehab. Psychosocial - 60-Day Assess Target Goals Target Goals Referral to Behavioral Health PS - Interventions: Yes: Attend Stress Management Classes Outcomes/Goals: See list Psychosocial Outcomes/Goals:: ID's personal stressors & 2 strategies to manage stress by discharge and Other Additional outcome/goals: Psychosocial - 90-Day Assess Target Goals Target Goals Referral to Behavioral Health PS - Interventions: Yes: Attend Stress Management Classes Psychosocial - Final Assessmen Target Goals Target Goals Referral to Behavioral Health PS - Interventions: Yes: Attend Stress Management Classes Nutrition - 90-Day Assessment Weight Mgt (Other Care) Height: 6 ft 1 in Weight:: 238 lb BMI: 31.4 Nutrition - Final Assessment Weight Mgt (Other Care) Height: 6 ft 1 in Weight:: 238 lb BMI: 31.4
[2024-09-11 08:29] VITALS: BP 150/80; BMI 31.4
== END 2024-10-09 23:59 ==
LOC: CR 07:45
PROVIDERS: PCP Family Medicine; Referring Provider Internal Medicine Cardiovascular Disease; Visit Provider Internal Medicine Cardiovascular Disease
DX: R93.1 Abnormal findings on diagnostic imaging of heart and coronary circulation (principal); I42.9 Cardiomyopathy, unspecified; R00.1 Bradycardia, unspecified; Z95.2 Presence of prosthetic heart valve; E11.649 Type 2 diabetes mellitus with hypoglycemia without coma; G47.30 Sleep apnea, unspecified; J44.9 Chronic obstructive pulmonary disease, unspecified; I50.22 Chronic systolic (congestive) heart failure; Z95.1 Presence of aortocoronary bypass graft
CPT/HCPCS: 93798

== ENCOUNTER 2024-09-19 11:06 | Emergency (ER) | payer MEDICARE, OTHER, SELFPAY ==
[2024-09-19] VITALS (12 sets, daily range): BP systolic 131–158; BP diastolic 78–98; PULSE 63–76; RESP 12–20; TEMP 36.5; O2SAT 94–99; BMI 30.6
--- NOTE | 2024-09-19 11:46 | EKG12_ITS ---
Test Reason : CP Blood Pressure : */* mmHG Vent. Rate : 71 BPM Atrial Rate : 71 BPM P-R Int : 228 ms QRS Dur : 188 ms QT Int : 466 ms P-R-T Axes : 9 26 197 degrees QTcB Int : 506 ms Sinus rhythm with 1st degree A-V block Possible Left atrial enlargement Left bundle branch block Abnormal ECG Confirmed by Dakota Edgar ([id number]), telegraph editor ANNIKA RODRIGUEZ ([id number]) on 09/23/2024 6:42:07 AM Referred By: SUZIE/PANCHITO Confirmed By: Dakota Edgar
[2024-09-19] MEDS: 0.9% Normal Saline (500mL Bag) 500 ML 1000 ML IV (12:05)
[2024-09-19 12:07] LABS: Absolute Lymphocyte Count 1.22 X10^3/uL (0.83-4.51); Absolute Neutrophil Count 4.3 X10^3/uL (2.0-7.7); Basophil# 0.07 X10^3/uL; Basophil% 1.1 % (0-1); Eosinophil# 0.25 X10^3/uL; Eosinophils% 3.9 % (0-5); Hematocrit 47.9 % (40-54); Hemoglobin 15.2 g/dL (13.0-16.5); Lymphocyte # 1.22 X10^3/ul (0.83-4.51); Lymphocyte % 19.2 % (19-41); Mean Corp Hgb Conc 31.7 g/dL (32-36); Mean Corpuscular Hgb 27.4 pg (27.0-32.0); Mean Corpuscular Volume 86.5 fL (80-94); Mean Platelet Vol. 10.6 fl (6.2-12.0); Monocyte% 7.9 % (0-10); NRBC Flagged by Analyzer 0 % (0-5); Neutrophil # 4.26 X10^3/uL (2.7-7.7); Neutrophil % 67.1 % (47-70); Platelet Count 171 K/mm3 (150-450); RBC Distribution Width CV 18.8 % (11.6-14.6); RBC Distribution Width SD 58.9 fl (35.1-43.9); Red Blood Count 5.54 M/mm3 (4.6-6.2); White Blood Count 6.4 K/mm3 (4.4-11.0)
[2024-09-19] MEDS: Ondansetron 4 MG/2 ML Vial IV (12:12)
[2024-09-19] MEDS: Morphine 2 MG/ML Syringe IV (12:14)
[2024-09-19 12:24] LABS: D-Dimer Quantitative (DVT/PE) 0.46 FEU/ug/m (0.27-0.49)
--- NOTE | 2024-09-19 12:33 | ED.VIS.CHEST ---
HPI History of Present Illness Chief Complaint: Chest Pain Narrative Narrative: Chief complaint and HPI: Dizziness. History taken by patient as well as cardiology note on 09/04/2024. 74-year-old male with extensive cardiac history including aortic stenosis status post valve repair x 2, atrial fibrillation on Eliquis, and HFrEF who presents for evaluation of episodic dizziness. Patient's last echocardiogram was 08/29/2024 did show EF of 30%. Given his low EF with left bundle branch block, patient was referred to EP Dr. Schaefer for consideration of [employer] device. Patient states he has an appointment with EP on September 27. He states for the past week he has been having episodic lightheadedness with ambulation/exertion. Symptoms improve with rest. He endorses episodic chest pain but denying any chest pain at this time. States that anytime he exerts himself he feels very weak and tired. Endorses intermittent headache. He denies any fever, chills, URI symptoms, shortness of breath, cough, abdominal pain, nausea, vomiting, dysuria. Denies any focal weakness, neurological deficit, numbness. Denies any recent fall/trauma. Has been taking all of his Eliquis. Review of systems: See HPI Medications: As listed on the chart Allergies: As listed on the chart PFSH: Per chart Vital signs: As listed on the chart. Reviewed. Physical exam: Gen: A&O x3, NAD but unwell appearing Head: Normocephalic, atraumatic Eyes: No sclera icterus, conjunctiva clear, patient has artificial left eye, right pupil normal in size and reactive to light ENT: Moist mucous membranes, No facial asymmetry Neck: Trachea midline, No JVD, no carotid bruit CV: RRR, no murmurs, no peripheral edema Resp: Lungs CTA BL, no w/r/c GI: Abd soft, non-distended, non-tender, no r/r/g Musc: Full ROM, no deformity, strength +5/5 in all extremities, no pronator drift, no ataxia with [id number] or valladares the leg testing Skin: Warm, dry, intact Neuro: Alert, oriented, grossly intact, sensation intact, no focal deficits Psych: Cooperative, appropriate mood and affect [facility] Medical History Cardiac LV ejection fraction <20% Bradycardia History of cardioversion (07/2024) Cardiomyopathy Fatty liver CAD (coronary artery disease) Atrial fibrillation status post cardioversion Syncope Benign paroxysmal positional vertigo Obesity (BMI 30.0-34.9) Chronic systolic CHF (congestive heart failure) Chronic bundle branch block Stenosis of lumbosacral spine Lumbar disc disease First degree AV block Asthma Blindness of left eye Rheumatoid arthritis History of pulmonary embolism History of kidney stones Hiatal hernia History of diverticulitis Limited mobility Depression Anxiety Restless legs Back pain Vision loss of left eye Kidney stones CPAP (continuous positive airway pressure) dependence Pulmonary embolism H/O bicuspid aortic valve COPD (chronic obstructive pulmonary disease) Diabetes mellitus Sleep apnea Hypertension Home Medications ?Medication ?Instructions ?Recorded ?Last Taken ?Type pramipexole 0.25 mg tablet 0.25 mg PO QHS restless legs 11/25/14 07/14/24 History albuterol sulfate 90 mcg/actuation 2 puff inhalation Q4H PRN PRN sob 02/27/21 12/15/21 07:30 History aerosol inhaler & or wheezing apixaban 5 mg tablet (Eliquis) 5 mg PO Q12H blood thinner 06/28/24 07/15/24 History fluticasone furoate 200 1 inh inhalation QDAY 07/19/24 Unknown History mcg-vilanterol 25 mcg/dose inhalation powder (Breo Ellipta) fluticasone propionate 50 2 spray intranasal QDAY 07/26/24 Unknown History mcg/actuation nasal spray,suspension (Flonase Allergy Relief) amiodarone 200 mg tablet 200 mg PO QDAY 08/16/24 Unknown History levothyroxine 25 mcg tablet 25 mcg PO QDAY 08/16/24 Unknown History dapagliflozin propanediol 10 mg 10 mg PO DAILY #30 tabs 09/04/24 Unknown Rx tablet (Farxiga) flaxseed oil 13.9 gram/15 mL oral 13.9 g PO DAILY PRN constipation 09/04/24 Unknown History liquid losartan 25 mg tablet 25 mg PO DAILY #30 tabs 09/04/24 Unknown Rx furosemide 40 mg tablet (Lasix) 40 mg PO DAILY 30 days #30 tabs 09/19/24 Unknown Rx Allergy/AdvReac Type Severity Reaction Status Date / Time hydrochlorothiazide (hctz) Allergy Intermediate hypercalcem Verified 09/19/24 11:07 ia erythromycin base AdvReac Diarrhea Verified 09/19/24 11:07 oxycodone (From Percocet) AdvReac Other Verified 09/19/24 11:07 tramadol AdvReac Other Verified 09/19/24 11:07 Family History Mother Asthma Father CVA (cerebral vascular accident) Pulmonary embolism Brother Diabetes Hypertension Grandmother CVA (cerebral vascular accident) Heart disease Grandfather Heart disease Surgical History S/P AVR (aortic valve replacement) (03/20/24) History of coronary artery bypass graft S/P aortic valve repair Hx of cystoscopy History of thoracic aortic aneurysm repair H/O shoulder replacement Status post reverse total shoulder replacement Social History (Updated 09/19/24 @ 11:22 by Dilcia Lopez) household members: spouse housing: house Smoking Status: Never smoker alcohol intake: never substance use type: does not use caffeine: Yes Type: coffee Number of servings: 1 EXAM Physical Exam Const Vital Signs: 09/19/24 11:07 09/19/24 11:28 09/19/24 11:58 Temperature 97.7 F L Temperature Source Oral Pulse Rate 70 Pulse Rate [Lying] 67 Pulse Rate [Sitting (for 1 minute prior to obtaining)] 65 Pulse Rate [Standing (for 1 minute prior to obtaining)] 69 Respiratory Rate 16 Respiratory Effort Normal Non-Labored Blood Pressure 158/78 H Blood Pressure [Lying] 143/91 H Blood Pressure [Sitting (for 1 minute prior to obtaining)] 155/92 H Blood Pressure [Standing (for 1 minute prior to obtaining)] 142/90 H Blood Pressure Mean 104 Blood Pressure Mean [Lying] 108 Blood Pressure Mean [Sitting (for 1 minute prior to obtaining)] 113 Blood Pressure Mean [Standing (for 1 minute prior to obtaining)] 107 Pulse Ox 98 Oxygen Delivery Method Room Air 09/19/24 12:15 09/19/24 13:00 09/19/24 14:00 Temperature Temperature Source Pulse Rate 63 64 76 Pulse Rate [Lying] Pulse Rate [Sitting (for 1 minute prior to obtaining)] Pulse Rate [Standing (for 1 minute prior to obtaining)] Respiratory Rate 15 14 14 Respiratory Effort Blood Pressure 148/95 H 134/83 H 140/82 H Blood Pressure [Lying] Blood Pressure [Sitting (for 1 minute prior to obtaining)] Blood Pressure [Standing (for 1 minute prior to obtaining)] Blood Pressure Mean 112 100 101 Blood Pressure Mean [Lying] Blood Pressure Mean [Sitting (for 1 minute prior to obtaining)] Blood Pressure Mean [Standing (for 1 minute prior to obtaining)] Pulse Ox 98 94 95 Oxygen Delivery Method 09/19/24 15:05 09/19/24 15:15 09/19/24 15:30 Temperature Temperature Source Pulse Rate 65 64 66 Pulse Rate [Lying] Pulse Rate [Sitting (for 1 minute prior to obtaining)] Pulse Rate [Standing (for 1 minute prior to obtaining)] Respiratory Rate 13 15 17 Respiratory Effort Blood Pressure 133/87 H 145/87 H 131/98 H Blood Pressure [Lying] Blood Pressure [Sitting (for 1 minute prior to obtaining)] Blood Pressure [Standing (for 1 minute prior to obtaining)] Blood Pressure Mean 102 103 107 Blood Pressure Mean [Lying] Blood Pressure Mean [Sitting (for 1 minute prior to obtaining)] Blood Pressure Mean [Standing (for 1 minute prior to obtaining)] Pulse Ox 95 99 98 Oxygen Delivery Method Room Air Room Air 09/19/24 15:45 09/19/24 16:00 09/19/24 16:00 Temperature Temperature Source Pulse Rate 65 63 Pulse Rate [Lying] Pulse Rate [Sitting (for 1 minute prior to obtaining)] Pulse Rate [Standing (for 1 minute prior to obtaining)] Respiratory Rate 20 H 14 Respiratory Effort Blood Pressure 135/83 H 150/88 H 150/88 H Blood Pressure [Lying] Blood Pressure [Sitting (for 1 minute prior to obtaining)] Blood Pressure [Standing (for 1 minute prior to obtaining)] Blood Pressure Mean 99 107 108 Blood Pressure Mean [Lying] Blood Pressure Mean [Sitting (for 1 minute prior to obtaining)] Blood Pressure Mean [Standing (for 1 minute prior to obtaining)] Pulse Ox 96 96 Oxygen Delivery Method Room Air Room Air 09/19/24 16:15 Temperature Temperature Source Pulse Rate 63 Pulse Rate [Lying] Pulse Rate [Sitting (for 1 minute prior to obtaining)] Pulse Rate [Standing (for 1 minute prior to obtaining)] Respiratory Rate 12 Respiratory Effort Blood Pressure 144/85 H Blood Pressure [Lying] Blood Pressure [Sitting (for 1 minute prior to obtaining)] Blood Pressure [Standing (for 1 minute prior to obtaining)] Blood Pressure Mean 104 Blood Pressure Mean [Lying] Blood Pressure Mean [Sitting (for 1 minute prior to obtaining)] Blood Pressure Mean [Standing (for 1 minute prior to obtaining)] Pulse Ox 97 Oxygen Delivery Method Room Air MDM MDM MDM Narrative Medical decision making narrative: 74-year-old male with extensive cardiac history including aortic stenosis status post valve repair x 2, atrial fibrillation on Eliquis, and HFrEF who presents for evaluation of episodic dizziness. Dizziness is worse with ambulation. Associated symptoms are weakness and episodic chest pain patient's last echocardiogram was 08/29/2024 did show EF of 30%. Patient was referred to EP for [employer] device. Differential diagnosis includes but is not limited to symptomatic low EF, CHF exacerbation, ACS, arrhythmia, electrolyte abnormality, UTI, carotid stenosis, orthostatic hypotension, intracranial abnormality/bleed. Patient currently endorsing headache. NS bolus, Zofran, morphine ordered. Patient was originally prescribed aspirin however he is not currently having chest pain and given concern for possible bleed with blood thinners we will hold off on aspirin for now until imaging. Orthostatic vital signs were negative. CBC without leukocytosis or anemia. Coagulation panel unremarkable. D-dimer unremarkable. BMP shows renal insufficiency with a creatinine of 1.3. This is downtrending from July at 1.48. 1.2-1.3 is his baseline. Magnesium level mildly elevated at 2.3. TSH unremarkable. BNP elevated at 1612. Patient not overtly fluid overloaded on physical exam. Troponin 28 and 25 respectively. Patient currently not having chest pain. UA is negative for UTI. CT head and CTA head and neck without evidence of critical stenosis, occlusion, dissection. No aneurysm or vascular malformation. No intracranial abnormality or bleed. At this point in time, no clear etiology for patient's symptoms although I suspect that it is secondary to his reduced EF. On reevaluation, patient denies any lightheadedness at rest however he states that he did ambulate to the bathroom and got slightly lightheaded/tired. Given patient's symptoms and suspected cause of low EF, cardiology was consulted and patient was discussed with Dr. Leach. He agrees that this is likely. The cause of the patient's symptoms. Recommendation is to start the patient on Lasix 40 mg daily and have him follow-up with EP. Patient and were updated of all the results and the plan for discharge home and follow-up with EP. Patient states that he is comfortable with discharging home. He was offered admission but declined. He has walker and canes at home to help him with ambulation. Strict return precautions were explained. Patient will be discharged home. EKG: Interpreted by me/EM physician: EKG shows normal sinus rhythm with first-degree AV block. Left bundle branch block. No acute ischemic changes. Diagnostic: Interpreted by me/EM physician: Chest x-ray without pneumonia, large effusion, pneumothorax. Impression: 1. Episodic lightheadedness 2. Episodic chest pain 3. Weakness 4. HFrEF with mild exacerbation Lab Data Labs: Laboratory Results - last 24 hr 09/19/24 09/19/24 09/19/24 11:33 13:39 14:28 WBC 6.4 RBC 5.54 Hgb 15.2 Hct 47.9 MCV 86.5 MCH 27.4 MCHC 31.7 L RDW Std Deviation 58.9 H RDW Coeff of Cristal 18.8 H Plt Count 171 MPV 10.6 Immature Gran % (Auto) 0.800 Neut % (Auto) 67.1 Lymph % (Auto) 19.2 [place] % (Auto) 7.9 Eos % (Auto) 3.9 Baso % (Auto) 1.1 H Absolute Neuts (auto) 4.3 Absolute Lymphs (auto) 1.22 Nucleated RBC % 0 PT 14.7 INR 1.1 APTT 26.8 D-Dimer Quant (PE/DVT) 0.46 Sodium 139 Potassium 4.3 Chloride 108 Carbon Dioxide 18.2 L Anion Gap 13 BUN 32 H Creatinine 1.30 H Estim Creat Clear Calc 63.48 Est GFR (MDRD) Non-Af 58 L BUN/Creatinine Ratio 24.6 H Glucose 179 H Calcium 9.8 Magnesium 2.3 H Troponin T High Sens 28 H Troponin T Hi Sens 2 Hr 25 H NT pro BNP II 1612 H TSH 3.440 Urine Color Straw Urine Clarity Clear Urine pH 6.0 Ur Specific [place] 1.020 Urine Protein Negative Urine Glucose (UA) 1000 H Urine Ketones Negative Urine Occult Blood Negative Urine Nitrite Negative Urine Bilirubin Negative Urine Urobilinogen Normal Ur Leukocyte Esterase Negative Urine RBC 0 SEEN Urine WBC 0 SEEN Ur Squamous Epith Cells 0 SEEN Urine Bacteria 0 SEEN Urine Mucus 0 SEEN Radiography Diagnostic Testing: Clinical Impression(s) from Imaging Studies Head/Neck CTA 09/19/24 13:55 IMPRESSION: No evidence of critical stenosis, occlusion, or dissection of the arteries of the head and neck. No aneurysm or vascular malformations. Cerebral cortical atrophy. Reading Location: [id number] Chest X-Ray 09/19/24 14:05 IMPRESSION: No acute cardiopulmonary process. Reading Location: [facility] Discharge Plan Triage Chief Complaint: Chest Pain ED Provider: Jose Miguel Lua Dx/Rx/DC Orders Clinical Impression: Episodic lightheadedness Instructions: Heart Failure Flare Up Signs, Heart Failure Dc Prescriptions: New furosemide [Lasix] 40 mg tablet 40 mg PO DAILY 30 Days Qty: 30 0RF No Action fluticasone furoate-vilanterol [Breo Ellipta] 200-25 mcg/dose blister with device 1 inh inhalation QDAY fluticasone propionate [Flonase Allergy Relief] 50 mcg/actuation spray,suspension 2 spray intranasal QDAY Rx Instructions: administer into each nostril flaxseed oil 13.9 gram/15 mL liquid 13.9 g PO DAILY PRN (Reason: constipation) losartan 25 mg tablet 25 mg PO DAILY Qty: 30 11RF dapagliflozin propanediol [Farxiga] 10 mg tablet 10 mg PO DAILY Qty: 30 11RF levothyroxine 25 mcg tablet 25 mcg PO QDAY pramipexole 0.25 MG tablet 0.25 mg PO QHS Patient Comments: restless legs albuterol sulfate 90 mcg/actuation HFA aerosol inhaler 2 puff INHALATION Q4H PRN PRN (Reason: sob & or wheezing) Patient Comments: INHALE 2 PUFFS BY MOUTH EVERY 4 HOURS NEEDED FOR SHORTNESS OF BREATH AND WHEEZING Eliquis 5 mg tablet 5 mg PO Q12H Patient Comments: [NO ORIGINAL SIG] amiodarone 200 mg tablet 200 mg PO QDAY Patient Comments: [NO ORIGINAL SIG] Primary Care Provider: Roberto Carlos Fernandes Referrals: Amor Schaefer MD [Med Staff - Active Staff] - 3-5 Days Roberto Carlos Fernandes MD [Primary Care Provider] - 3-5 Days Activity Restrictions/Additional Instructions: Follow-up with EP and PCP. Return back to the ED if symptoms change or worsen. You received Lasix here in the emergency department. Start your prescription of Lasix tomorrow. Print Language: Scottish Disposition Disposition: Home, Self Care
[2024-09-19 12:43] LABS: International Normalized Ratio 1.1; Prothrombin Time (Protime)PT. 14.7 SECONDS (11.7-14.9)
[2024-09-19 12:44] LABS: Partial Thromboplast Time 26.8 Seconds (24.1-36.2)
[2024-09-19 13:10] LABS: Anion Gap 13 (5-15); BUN 32 mg/dL (4-19); BUN/Creat Ratio 24.6 RATIO (10-20); Calcium,Total 9.8 mg/dL (7.6-11.0); Carbon Dioxide 18.2 mmol/L (21.0-32.0); Chloride 108 mmol/L (98-108); EST Glomerular Filtration Rate 58 (>60); Estimated Creatinine Clearance 63.48 ml/min (50-250); Glucose 179 mg/dL (70-99); Magnesium 2.3 mg/dL (1.5-2.2); Potassium 4.3 mmol/L (3.3-5.1); Pro- Brain NATRIURETIC PEPTIDE 1612 pg/mL (<=900); Sodium Level 139 mmol/L (133-145); Troponin T High Sensitivity 28 ng/L (<=22)
--- NOTE | 2024-09-19 13:55 | CT_ITS ---
PROCEDURE: CTA HEAD AND NECK W/ CONTRAST 09/19/2024 REASON FOR EXAM: DIZZINESS. HISTORY OF DIABETES, HYPERTENSION, AND PULMONARY EMBOLISM. TECHNIQUE: CTA imaging of the head and neck from the aortic arch to the skull vertex with intravenous contrast. Coronal and Sagittal reconstruction series were provided. 3D, 3D post processing, 3D reconstructions, Maximum intensity projection (MIPs) Volume rendering and Shaded surface rendering was provided. CONTRAST: Isovue 370 VOLUME: 100 mL One or more dose reduction techniques were used (e.g., Automated exposure control, adjustment of the mA and/or kV according to patient size, use of iterative reconstruction technique). # of known CTs in the past 12 months: 0 # of known Cardiac Nuclear Medicine Studies in the past 12 months: 0 RADIATION DOSE SUMMARY: CTDlvol: 101.2 mGy DLP: 1609.16 mGycm COMPARISON: CTA HEAD AND NECK DATED 08/07/2023. FINDINGS: Aortic Arch: Brachiocephalic and Subclavians: RIGHT Carotid: Right CCA: No occlusion or significant stenosis. No dissection. Right ICA: Mild calcific plaque at the bulb redemonstrated. No occlusion or significant stenosis. No dissection. Moderate tortuosity. Right ECA: Unremarkable. LEFT Carotid: Left CCA: No occlusion, significant stenosis, or dissection. Left ICA: Mild calcified plaque at the bulb. No occlusion, significant stenosis or dissection. Moderate tortuosity. Left ECA: Unremarkable. Vertebrals: Dominant right RIGHT Vertebral: Unremarkable. LEFT Vertebral: Unremarkable. Anatomy: Aneurysm or avm: No abnormalities. Anterior cerebral arteries: No significant stenoses. Middle cerebral arteries: No significant stenosis. Basilar artery: Unremarkable. Posterior cerebral arteries: No stenoses or other abnormalities. Other major branches of the posterior circulation: Unremarkable. Major venous structures: No venous abnormalities. Other findings: Neck: Unremarkable. Lungs: Unremarkable. Bones: Multilevel spondylosis and degenerative disc disease. CT Brain Cerebrum: No intraparenchymal hemorrhage. No abnormal areas of encephalomalacia. No mass effect or midline shift. D[place]-white matter differentiation is normal. Ventricles and cisterns: Appropriate size for patient's age. Age-appropriate cerebral cortical atrophy. Extra-axial fluid: Unremarkable. Posterior fossa: Unremarkable cerebellum. No abnormalities involving the brainstem. Paranasal sinuses: Normal. Mastoid air cells: Normal. Calvarium: Unremarkable. Soft tissues: Unremarkable. CT/CTA Head AND Neck W/ Contrast IMPRESSION: No evidence of critical stenosis, occlusion, or dissection of the arteries of t he head and neck. No aneurysm or vascular malformations. Cerebral cortical atrophy. Reading Location: [place] [id number]
--- NOTE | 2024-09-19 14:05 | RAD_ITS ---
EXAM: XR Chest, 2 Views CLINICAL INDICATION: DIZZINESS TECHNIQUE: Frontal and lateral views of the chest. COMPARISON: No relevant prior studies available. FINDINGS: LUNGS AND PLEURAL SPACES: Unremarkable. No consolidation. No pneumothorax. HEART: Unremarkable. No cardiomegaly. MEDIASTINUM: Unremarkable. Normal mediastinal contour. BONES/JOINTS: Unremarkable. No acute fracture. RAD/Chest PA and Lateral IMPRESSION: No acute cardiopulmonary process. Reading Location[facility]
[2024-09-19 14:38] LABS: Troponin T High Sens 2 HR 25 ng/L (<=22)
[2024-09-19 14:41] LABS: Bacteria 0 SEEN /hpf (None Seen); Mucous, Urine 0 SEEN /hpf (<or=2+); Red Blood Cells-Urine 0 SEEN /hpf (0-5); Squamous Epithelial Cells - UA 0 SEEN /hpf (0-5); White Blood Cells 0 SEEN /hpf (0-5)
[2024-09-19 15:03] LABS: Color, Urine Straw (Yellow); Glucose, Dipstick 1000 mg/dl (Normal); Ketone-Dipstick Negative (Negative); Leukocyte Esterase-Dipstick Negative /ul (Negative); Nitrite-Dipstick Negative (Negative); Occult Blood-Urine Negative /ul (Negative); Protein-Dipstick Negative (Negative); Urine Bilirubin Dipstick Negative (Negative); Urine Clarity Clear (Clear); Urine Urobilinogen Normal (Normal)
[2024-09-19] MEDS: Furosemide 40 MG/4 ML Vial IV (16:22)
== END 2024-09-19 16:31 | disposition home or self-care (01) ==
PROVIDERS: Emergency Provider Surgery; PCP Family Medicine; Visit Provider Surgery
DX: R07.9 Chest pain, unspecified (principal); I50.22 Chronic systolic (congestive) heart failure; I11.0 Hypertensive heart disease with heart failure; J44.9 Chronic obstructive pulmonary disease, unspecified; I48.91 Unspecified atrial fibrillation; E11.9 Type 2 diabetes mellitus without complications; R42 Dizziness and giddiness; I25.10 Atherosclerotic heart disease of native coronary artery without angina pectoris; Z95.2 Presence of prosthetic heart valve; Z79.01 Long term (current) use of anticoagulants; G47.30 Sleep apnea, unspecified; Z99.89 Dependence on other enabling machines and devices; G25.81 Restless legs syndrome; Z79.899 Other long term (current) drug therapy; Z79.51 Long term (current) use of inhaled steroids; Z96.619 Presence of unspecified artificial shoulder joint
CPT/HCPCS: 70496; 70498; 71046; 80048; 81001; 83735; 83880; 84443; 84484; 85025; 85379; 85610; 85730; 93005; 96361; 96374; 96375; 99285; Q9967; J1940; J2405

== ENCOUNTER 2024-10-07 11:00 | Outpatient (RCR) | payer MEDICARE, OTHER, SELFPAY | END 2024-10-09 23:59 | LOC: NS 11:00 | PROVIDERS: PCP Family Medicine; Referring Provider Internal Medicine Cardiovascular Disease; Visit Provider Internal Medicine Cardiovascular Disease | DX: Z71.3 Dietary counseling and surveillance (principal); E11.9 Type 2 diabetes mellitus without complications | CPT/HCPCS: 97802 ==

== ENCOUNTER 2024-10-11 08:08 | Outpatient (RCR) | payer MEDICARE, OTHER, SELFPAY ==
[2024-10-10 00:32] VITALS: BP 150/80
--- NOTE | 2024-10-10 09:57 | PCM.CR.ITP ---
Exercise - Initial Assessment Physician Prescribed Exercise Modalities: SciFit Stepper Nutrition - Initial Assessment Weight Mgt (Other Care) Height: 6 ft 1 in Weight:: 238 lb BMI: 31.4 Core - Initial Assessment Hypertension Resting Blood Pressure:: 140/82 [place] [employer] Hypertension Guidelines Psychosocial - Initial Assess Target Goals Target Goals Referral to Behavioral Health PS - Interventions: Yes: Attend Stress Management Classes Patient Health Questionnaire PHQ-9 Screening 60-Day Re-eval Assessment: 1. Little interest or pleasure in doing things: Several days 2. Feeling down, depressed, or hopeless: Several days 3. Trouble falling or staying asleep, or sleeping too much: Several days 4. Feeling tired or having little energy: Nearly every day 5. Poor appetite or overeating: More than half the days 6. Feeling bad about yourself -- or that you are a failure or have let yourself or your family down: Several days 7. Trouble concentrating on things, such as reading the newspaper or watching television: Not at all 8. Moving or speaking so slowly that other people could have noticed. Or the opposite - being so fidgety or restless that you have been moving around a lot more than usual: Not at all 9. Thoughts that you would be better off , or of hurting yourself in some way: Not at all How difficult have these problems made it for you to do your work, take care of things at home, or get along with other people?: Somewhat difficult Total Score: 9 Self-Efficacy 6-Item Scale 60-Day Re-eval Assessment: We would like to know how confident you are in doing certain activities. Please select your confidence level for: Fatigue Select Number: 5 Physical Discomfort or Pain Select Number: 5 Emotional Distress Select Number: 6 Other Symptoms or Health Problems Select Number: 6 Different Tasks and Activities Select Number: 7 Medication Select Number: 8 Total Score:: 6 Nutrition Survey Nutrition Survey Instructions Scoring Instructions Exercise - 30-day Assessment Physician Prescribed Exercise Modalities: RedgageFit Stepper Exercise - 60-day Assessment Visit Date of Eval: 10/10/24 Session #:: 4 (Pt has not attended rehab since 08/26/24. 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 Outcomes & Goals Goals:: Verbalizes understanding of THR, RPE & goal METS by session 6, Documents in home exercise log/reports 30 min aerobic 5 day/wk by DC, Demonstrates accurate pulse taking by DC and Other additional outcome/goals: see below Intervention & Plan Exercise Program Goals: Instruct on personal THR & RPE, Instruct on MET level & personal MET goal, Show patient to take own pulse /validate performance until accurate, Instruct on home exercise and Other additional plan/int 30-day Reassessments 30 day Reassessments:: Not Met Physical Activity Home Exercise Physical Activity - Home Exercise: Safe Exercise, Warm-up, Self-monitoring, Cool-Down, Home Exercise > 30 min Daily and Sitting Time <3 hours/daily Outcomes & Goals Outcomes/Goals: Demonstrates correct Warm-up/exercise Cool-Down (S3) if = 2.5 METs, Verbalizes symptoms of exercise intolerance by Session 3 (S3), Demonstrate safe equipment use (S3) & follows exercise prescrition (6) and Other: See below Intervention & Plan Plan/Intervention: Instruct warm-up & cool-down if exercising at > 2 METs, Instruct on symptoms of exercise intolerance & actions to take, Instruct & monitor on saf, Assess intial functional capacity & safety risk and Other See below 30-day Reassessments 30 day Reassessments:: Not Met Reassessment Notes & Comments:: Pt has not attended rehab since 08/26/24. 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 Exercise - 90-day Assessment Physician Prescribed Exercise Modalities: SciFit Stepper Exercise - Final/Discharge Physician Prescribed Exercise Modalities: SciFit Stepper Nutrition - 30-Day Assessment Weight Mgt (Other Care) Height: 6 ft 1 in Weight:: 238 lb BMI: 31.4 Nutrition - 60-Day Assessment Visit Date of Eval: 10/10/24 Session #:: 4 (Pt has not attended rehab since 08/26/24. 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.) Cholesterol/Lipids (Other Core Measures) Determine presence & major risk factors that modify LDL goal: Cigarette smoking, Hypertension or hypertensive medication, Low HDL cholesterol <40 mg/dL*, Family history of premature CHD in Male < 55 years: female <65 yearsFa and Age men > 45 years; women >/= 55 years Outcomes/Goals: Pt IDs own risk factors & lifestyle modifications by Session 10, Verbalizes symptoms of angina & response by session 3., Pt independently manages and Other Additional Outcomes/Goals: Intervention/Plan: Advocate for lipid panel cholesterol medication if applicable, Instruct on personal lipid levels & lipid goals/NCEP guidelines, Instruct on cholesterol and Other additional plan/int 30-day Reassessments:: Not Met Diabetes (Other Core Measures) Diabetes Type: Diagnosis Type II ICD-10 E11 Weight Mgt (Other Care) Height: 6 ft 1 in Weight:: 238 lb BMI: 31.4 Diagnosis Overweight/Obesity BMI> 30% ICD-10 E66: Yes Diagnosis High BMI/Morbid Obesity BMI> 35% ICD-10 Z68: No Outcomes/Goals: Pt sets, maintains & shows weight loss goal & trend during rehab and Other additional outcomes/goals Intervention/Plan: Instruct on ideal BMI & set weight loss goal w/patient, Assist pt to ID & incorporate diet changes for weight loss by S9, Refer to Structured Weight Loss program as appropriate, Encourage goal of using 250-300dcal per session for weight loss and Other additional plan/interventions 30 day Reassessments:: Not Met Healthy Eating Habits 30-day Reassessments:: Not Met Education Gave educational materials for:: Signs & symptoms of hypoglycemia, Signs & symptoms of hyperglycemia, Relate diabetes to coronary artery disease and Healthy eating Core - Final Assessment Hypertension Resting Blood Pressure:: 140/82 [place] [employer] Hypertension Guidelines Core - 60-Day Assessment Visit Date of Eval: 10/10/24 Session #:: 4 (Pt has not attended rehab since 08/26/24. 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.) Medication Compliance Preventative Medication(s):: Statin/lipid and Eliquis H/O mental health issues: depression, anxiety, or addiction?: Yes Doesn?t believe in the benefits of treatment?: No Believes medications are unnecessary or harmful?: No Has a concern about medication side effects?: No Expresses concern over the cost of medications?: No Outcomes/Goals: Verbalizes medications,desired effect & common side effects @ DC, Pt self-reports following medication regimen, Keeps card in wallet w/medications listed by DC and Other additional outcome/goals: Interventions/plans: Instruct on medication effects & side effects, Review medication list w/patient every two weeks, Instruct importance of taking meds as ordered & assist problem solving and Other additional 30-day Reassessments:: Not Met Tobacco Use Tobacco Use: Non-smoker Hypertension Hypertension Diagnosis:: Hypertension ICD-10 I10 Resting Blood Pressure:: 150/80 Resting Blood Pressure:: 140/82 [place] [employer] Hypertension Guidelines Peak Exercise Blood Pressure:: 132/80 Outcomes/Goals: Able to verbalize/achieve optimal blood pressure <130/80, Incorporates diet changes & exercise for blood pressure control by DC and Other additional outcomes/goals Interventions/plan: Instruct on optimal blood pressure, hypertension & medications, Instruct on effects of sodium, alcohol, stress, exercise &hypertension and Other additional plan/interventions 30 day Reassessments:: Not Met Tobacco Cessation Referral Smoking Cessation Referral:: No Individual Education/Counseling:: No Education Schedule Given:: Yes Psychosocial - 30-Day Assess Target Goals Target Goals Referral to Behavioral Health PS - Interventions: Yes: Attend Stress Management Classes Outcomes/Goals: See list Psychosocial Outcomes/Goals:: ID's personal stressors & 2 strategies to manage stress by discharge and Other Additional outcome/goals: Psychosocial - 60-Day Assess VIsit Date of Eval: 10/10/24 Session #:: 4 (Pt has not attended rehab since 08/26/24. 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 QOL Cardiac and PHQ-9 Questionnaire phq-9 Severity See PHQ-9 Score: 9 Referral to Behavioral Health PS - Interventions: Yes: Attend Stress Management Classes Outcomes/Goals: See list Psychosocial Outcomes/Goals:: ID's personal stressors & 2 strategies to manage stress by discharge and Other Additional outcome/goals: Intervention/Plan: See List Interventions/Plan:: Assess stressors,coping strategies & signs of derpression on admission, Instruct/assist pt to develop coping & personal stress Mgt strategies, Refer to Behavioral Health if appropriate, Refer to Physician if appropriate, Instruct patient to recognize signs & symptoms of depression, Instruct patient to recog and Other additional plan/intervention 30-day Reassessments: 30 day Reassessments:: Not Met Reassessment Notes & Comments:: Pt has not attended rehab since 08/26/24. 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 Psychosocial - 90-Day Assess Target Goals Target Goals Referral to Behavioral Health PS - Interventions: Yes: Attend Stress Management Classes Psychosocial - Final Assessmen Target Goals Target Goals Referral to Behavioral Health PS - Interventions: Yes: Attend Stress Management Classes Nutrition - 90-Day Assessment Weight Mgt (Other Care) Height: 6 ft 1 in Weight:: 238 lb BMI: 31.4 Nutrition - Final Assessment Weight Mgt (Other Care) Height: 6 ft 1 in Weight:: 238 lb BMI: 31.4
[2024-10-10 10:05] VITALS: BP 140/82; BP 150/80; BMI 31.4
--- NOTE | 2024-11-08 08:26 | PCM.CR.ITP ---
Exercise - Initial Assessment Physician Prescribed Exercise Modalities: Treadmill, Rower, Schwinn Airdyne AD-7, SciFit Stepper, SciFit Pro-II Ergometer and SciFit Lateral Dermatopathologist Nutrition - Initial Assessment Weight Mgt (Other Care) Height: 6 ft 1 in Weight:: 238 lb BMI: 31.4 BMI (Report if calculated above): 31.4 Psychosocial - Initial Assess Target Goals Target Goals Referral to Behavioral Health PS - Interventions: Yes: Attend Stress Management Classes Patient Health Questionnaire PHQ-9 Screening 90-Day Re-eval Assessment: 1. Little interest or pleasure in doing things: Several days 2. Feeling down, depressed, or hopeless: Several days 3. Trouble falling or staying asleep, or sleeping too much: Several days 4. Feeling tired or having little energy: Nearly every day 5. Poor appetite or overeating: More than half the days 6. Feeling bad about yourself -- or that you are a failure or have let yourself or your family down: Several days 7. Trouble concentrating on things, such as reading the newspaper or watching television: Not at all 8. Moving or speaking so slowly that other people could have noticed. Or the opposite - being so fidgety or restless that you have been moving around a lot more than usual: Not at all 9. Thoughts that you would be better off , or of hurting yourself in some way: Not at all How difficult have these problems made it for you to do your work, take care of things at home, or get along with other people?: Somewhat difficult Total Score: 9 Self-Efficacy 6-Item Scale 90-Day Re-eval Assessment: We would like to know how confident you are in doing certain activities. Please select your confidence level for: Fatigue Select Number: 5 Physical Discomfort or Pain Select Number: 5 Emotional Distress Select Number: 6 Other Symptoms or Health Problems Select Number: 6 Different Tasks and Activities Select Number: 7 Medication Select Number: 8 Total Score:: 6 Nutrition Survey Nutrition Survey Instructions Scoring Instructions Exercise - 30-day Assessment Physician Prescribed Exercise Modalities: Treadmill, Rower, Schwinn Airdyne AD-7, SciFit Stepper, SciFit Pro-II Ergometer and SciFit Lateral [place] Exercise - 60-day Assessment Physician Prescribed Exercise Modalities: Treadmill, Rower, Schwinn Airdyne AD-7, SciFit Stepper, SciFit Pro-II Ergometer and SciFit Lateral Dermatopathologist Exercise - 90-day Assessment Visit Date of Eval: 11/08/24 Session #:: 4 Comments:: Pt has not attended rehab since 08/26/24. 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 Physician Prescribed Exercise Modalities: Treadmill, Rower, Schwinn Airdyne AD-7, SciFit Stepper, SciFit Pro-II Ergometer and SciFit Lateral Dermatopathologist Frequency: 3x/week for 12 weeks [36 sessions] Intensity: 60-80% of age predicted maximum heart rate reserve Duration: 30 - 45 minutes METs - Progression 0.5-1.0 weekly:: 0.5-1.0 Current METSs:: 3 Target Heart Rate:: 88-110 Target RPE 12-16:: 12-16 Current RPE:: 11 Maximum Excercise HR:: 74 Resting Blood Pressure: 150/80 Maximum Exercise Blood Pressure: 132/80 EKG Type: NSR with LBBB and rare pacs/pvcs Current Physical Activity or Exercising minutes: 30-45 Outcomes & Goals Goals:: Verbalizes understanding of THR, RPE & goal METS by session 6, Documents in home exercise log/reports 30 min aerobic 5 day/wk by DC and Demonstrates accurate pulse taking by DC Intervention & Plan Exercise Program Goals: Instruct on personal THR & RPE, Instruct on MET level & personal MET goal, Show patient to take own pulse /validate performance until accurate and Instruct on home exercise 30-day Reassessments 30 day Reassessments:: Not Met Reassessment Notes & Comments:: Pt instructed on RPE scale, pt educated on MET goals and importance of home exercise Physical Activity Home Exercise Physical Activity - Home Exercise: Safe Exercise, Warm-up, Self-monitoring, Cool-Down, Home Exercise > 30 min Daily and Sitting Time <3 hours/daily Outcomes & Goals Outcomes/Goals: Demonstrates correct Warm-up/exercise Cool-Down (S3) if = 2.5 METs, Verbalizes symptoms of exercise intolerance by Session 3 (S3) and Demonstrate safe equipment use (S3) & follows exercise prescrition (6) Intervention & Plan Plan/Intervention: Instruct warm-up & cool-down if exercising at > 2 METs, Instruct on symptoms of exercise intolerance & actions to take, Instruct & monitor on saf and Assess intial functional capacity & safety risk 30-day Reassessments 30 day Reassessments:: Not Met Reassessment Notes & Comments:: Pt will need to be reinstructed at next session on safety risks, and proper warm and cool down Exercise - Final/Discharge Physician Prescribed Exercise Modalities: Treadmill, Rower, Schwinn Airdyne AD-7, SciFit Stepper, SciFit Pro-II Ergometer and SciFit Lateral [place] Nutrition - 30-Day Assessment Weight Mgt (Other Care) Height: 6 ft 1 in Weight:: 238 lb BMI: 31.4 BMI (Report if calculated above): 31.4 Nutrition - 60-Day Assessment Weight Mgt (Other Care) Height: 6 ft 1 in Weight:: 238 lb BMI: 31.4 BMI (Report if calculated above): 31.4 Core - 30-Day Assessment Hypertension [place] [employer] Hypertension Guidelines Reassessment Notes & Comments:: Pt will continue to work with websphere process server developer and PCP to optimize BP with medications regimen and exercise Core - Final Assessment Hypertension [place] [employer] Hypertension Guidelines Reassessment Notes & Comments:: Pt will continue to work with websphere process server developer and PCP to optimize BP with medications regimen and exercise Core - 90 Day Assessment Visit Date of Eval: 11/08/24 Session #:: 4 Medication Compliance Preventative Medication(s):: Aspirin, Statin/lipid, Beta hue, Eliquis and ARB (Angiotensi Rcap) H/O mental health issues: depression, anxiety, or addiction?: Yes Doesn?t believe in the benefits of treatment?: No Believes medications are unnecessary or harmful?: No Has a concern about medication side effects?: No Expresses concern over the cost of medications?: No Outcomes/Goals: Verbalizes medications,desired effect & common side effects @ DC, Pt self-reports following medication regimen and Keeps card in wallet w/medications listed by DC Interventions/plans: Instruct on medication effects & side effects, Review medication list w/patient every two weeks and Instruct importance of taking meds as ordered & assist problem solving 30-day Reassessments:: Not Met Reassessment Notes & Comments:: Pt has not attended rehab since 08/26/24. 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 Tobacco Use Tobacco Use: Non-smoker Hypertension Hypertension Diagnosis:: Hypertension ICD-10 I10 Resting Blood Pressure:: 150/80 [place] [employer] Hypertension Guidelines Peak Exercise Blood Pressure:: 132/80 Outcomes/Goals: Able to verbalize/achieve optimal blood pressure <130/80 and Incorporates diet changes & exercise for blood pressure control by DC Interventions/plan: Instruct on optimal blood pressure, hypertension & medications and Instruct on effects of sodium, alcohol, stress, exercise &hypertension 30 day Reassessments:: Not Met Reassessment Notes & Comments:: Pt will continue to work with websphere process server developer and PCP to optimize BP with medications regimen and exercise Tobacco Cessation Referral Smoking Cessation Referral:: No Individual Education/Counseling:: No Psychosocial - 30-Day Assess Target Goals Target Goals Referral to Behavioral Health PS - Interventions: Yes: Attend Stress Management Classes Psychosocial - 60-Day Assess Target Goals Target Goals Referral to Behavioral Health PS - Interventions: Yes: Attend Stress Management Classes Psychosocial - 90-Day Assess VIsit Date of Eval: 11/08/24 Session #:: 4 History of previous Mental disease:: Yes History of Emotional Disorders: Depression Target Goals Target Goals Psychosocial Test Tool Used:: PHQ-9 Questionnaire phq-9 Severity See PHQ-9 Score: 9 Total Score:: 9 Referral to Behavioral Health PS - Interventions: Yes: Attend Stress Management Classes Outcomes/Goals: See list Psychosocial Outcomes/Goals:: ID's personal stressors & 2 strategies to manage stress by discharge Intervention/Plan: See List Interventions/Plan:: Assess stressors,coping strategies & signs of derpression on admission, Instruct/assist pt to develop coping & personal stress Mgt strategies, Refer to Behavioral Health if appropriate, Refer to Physician if appropriate and Instruct patient to recognize signs & symptoms of depression 30-day Reassessments: 30 day Reassessments:: Not Met Reassessment Notes & Comments:: Pt has not attended rehab since 08/26/24. 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 Psychosocial - Final Assessmen Target Goals Target Goals Psychosocial Test phq-9 Severity Total Score:: 9 Referral to Behavioral Health PS - Interventions: Yes: Attend Stress Management Classes Nutrition - 90-Day Assessment Program Goals Nutrition Program Goals Patient has diagnosis of Hyperlipidemia (ICD E78)?: No Visit Date of Eval: 11/08/24 Session #:: 4 Cholesterol/Lipids (Other Core Measures) Triglycerides (mg/dL): 112 Total Cholesterol (mg/dL): 126 LDL Cholesterol (mg/dL): 66 HDL Cholesterol (mg/dL): 38 Lipid Medication: atorvastatin 40mg QHS Determine presence & major risk factors that modify LDL goal: Cigarette smoking, Hypertension or hypertensive medication, Low HDL cholesterol <40 mg/dL*, Family history of premature CHD in Male < 55 years: female <65 yearsFa and Age men > 45 years; women >/= 55 years Outcomes/Goals: Pt IDs own risk factors & lifestyle modifications by Session 10, Verbalizes symptoms of angina & response by session 3. and Pt independently manages Intervention/Plan: Advocate for lipid panel cholesterol medication if applicable, Instruct on personal lipid levels & lipid goals/NCEP guidelines and Instruct on cholesterol Referral to dietitian:: Yes 30-day Reassessments:: Not Met Reassessment Notes & Comments:: Pt likely taking medications as prescribed, pt to attend healthy living classes upon return Diabetes (Other Core Measures) Diabetes Type: Diagnosis Type II ICD-10 E11 Fasting blood glucose:: 99 Hgb A1C (4.2 -6.3): 5.9 Insulin dependent injection/pump?: No Non-Insulin Dependent?: Yes Outcomes/Goals:: Able to state symptoms of (hypoglycemia/hyperglycemia) Intervention/Plan:: Instruct on (management of high and low blood sugars) 30-day Reassessments:: Not Met Reassessment Notes & Comments:: pt to be taking medications as prescribed and monitoring bs at home Weight Mgt (Other Care) Height: 6 ft 1 in Weight:: 238 lb BMI: 31.4 BMI (Report if calculated above): 31.4 Diagnosis Overweight/Obesity BMI> 30% ICD-10 E66: Yes Diagnosis High BMI/Morbid Obesity BMI> 35% ICD-10 Z68: No Outcomes/Goals: Pt sets, maintains & shows weight loss goal & trend during rehab Intervention/Plan: Instruct on ideal BMI & set weight loss goal w/patient, Assist pt to ID & incorporate diet changes for weight loss by S9, Refer to Structured Weight Loss program as appropriate and Encourage goal of using 250-300dcal per session for weight loss 30 day Reassessments:: Not Met Reassessment Notes & Comments:: pt to attend healthy living classes upon return and exercise as appropriate Healthy Eating Habits Will attend diet classes:: Yes Outcomes/Goals:: Consume diet rich in vegs,fruits,whole grain/high fiber,fish,lean meat and Limit sat/trans fats,cholesterol & added salts & sugars Intervention/Plan:: Assess current eating habits 30-day Reassessments:: Not Met Reassessment Notes & Comments:: Pt will attend diet classes upon return from medical hold Education Gave educational materials for:: Signs & symptoms of hypoglycemia, Signs & symptoms of hyperglycemia, Relate diabetes to coronary artery disease and Healthy eating Nutrition - Final Assessment Weight Mgt (Other Care) Height: 6 ft 1 in Weight:: 238 lb BMI: 31.4 BMI (Report if calculated above): 31.4
[2024-11-08 08:33] VITALS: BP 150/80
[2024-11-08 08:48] VITALS: BP 150/80; BMI 31.4
== END 2024-11-09 23:59 ==
LOC: CR 08:08
PROVIDERS: PCP Family Medicine; Referring Provider Internal Medicine Cardiovascular Disease; Visit Provider Internal Medicine Cardiovascular Disease
DX: R93.1 Abnormal findings on diagnostic imaging of heart and coronary circulation (principal); I42.9 Cardiomyopathy, unspecified; R00.1 Bradycardia, unspecified; Z95.2 Presence of prosthetic heart valve; E11.649 Type 2 diabetes mellitus with hypoglycemia without coma; G47.30 Sleep apnea, unspecified; J44.9 Chronic obstructive pulmonary disease, unspecified; I50.22 Chronic systolic (congestive) heart failure; Z95.1 Presence of aortocoronary bypass graft
CPT/HCPCS: 93798

== ENCOUNTER 2024-10-24 16:40 | Observation (INO) | payer MEDICARE, OTHER, SELFPAY ==
[2024-10-10 10:05] VITALS: BMI 31.4
--- NOTE | 2024-10-15 10:55 | RAD_ITS ---
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 COMPARISON: None. FINDINGS: There are median sternotomy wires present likely from prior aortic valve replacement. Right shoulder arthroplasty hardware is partially visualized. No acute osseous abnormality is present. The cardiac silhouette is prominent but stable in size. No focal infiltrate or consolidation is seen within the lungs. There is no pneumothorax. RAD/Chest PA and Lateral IMPRESSION: Post aortic valve replacement changes. No focal infiltrate or consolidation is seen within the lungs. No pneumothorax. Reading Location: [facility]
[2024-10-23 08:09] VITALS: BMI 30.7
[2024-10-24] VITALS (13 sets, daily range): BP systolic 106–136; BP diastolic 67–75; PULSE 62–85; RESP 16–20; TEMP 36.2–36.7; O2SAT 93–98
--- NOTE | 2024-10-24 11:22 | EKG12_ITS ---
Test Reason : POST ICD Blood Pressure : */* mmHG Vent. Rate : 72 BPM Atrial Rate : 72 BPM P-R Int : * ms QRS Dur : 202 ms QT Int : 534 ms P-R-T Axes : * 241 54 degrees QTcB Int : 584 ms Ventricular-paced rhythm Abnormal ECG When compared with ECG of 19-Sep-2024 11:08, Electronic ventricular pacemaker has replaced Sinus rhythm Confirmed by MIGUEL A ALFARO, JEANNETTE ([id number]), newspaper editor managing YAEL GARCIA ([id number]) on 10/28/2024 9:46:33 AM Referred By: Amor Schaefer Confirmed By: JEANNETTE GRADY MD
--- NOTE | 2024-10-24 11:25 | EX.DEFIBPR_ITS ---
Defibrillator Procedure Note Defibrillator Procedure Note Procedure: Successful Resynchronization ICD implantation with Coronary Sinus Pacing. Indication: Primary Prevention Nonischemic Cardiomyopathy NYHA Class II LVEF 30 LBBB, QRS 186 Findings: The patient was brought to the EP LAB in the fasting well-hydrated state and prepped and draped in the usual sterile fashion. Local anesthesia with 2% lidocaine was used to achieve a numbing effect in the LEFT pectoral region. In addition, iv anesthesia was administered by anesthesia personnel present throughout the case. An incision was made 2 fingerbreadths below the left clavicle and a pocket was made by blunt dissection. Bleeding vessels were coagulated using electrocautery. Using modified Seldinger technique, three guidewires was placed into the left axillary vein down to the low RA. Through a venous sheath the RV lead was passed into the RV apex. The active screw mechanism was extended. Adequate pacing and sensing thresholds were measured. Diaphragmatic stimulation was excluded with high output pacing. The introducer sheath was peeled away. Over a second guidewire a coronary sinus guiding sheath was placed into the low right atrium. The coronary sinus ostium was cannulated and using a guidewire the sheath was deep placed into the coronary sinus. A coronary sinus venogram was performed. This delineated a low posterior lateral branch of the coronary sinus. Target was the posterior lateral branch. Using a 0.014 Whisper wire the lateral branch was accessed and a quadripolar LV lead was passed into the distal portion of the subbranch. Adequate pacing and sensing thresholds were measured. Diaphragmatic stimulation was excluded with high output pacing. The introducer sheath was peeled away. Next using the third guidewire a introducer sheath was placed into the central circulation. Through the venous sheath an active-fixation right atrial lead was passed in the right atrium the active screw mechanism was deployed and the lead was attached to the myocardium. Adequate pacing and sensing thresholds were measured. Diaphragmatic stimulation was excluded with high output pacing. The introducer sheath was peeled away. The leads were secured in the pocket using 0-Ethibond with initial suture tie made to the pectoralis muscle and fascia, followed by wrapping around and tying securely to the lead sleeves. In addition, a purse string suture was tied around the leads entry site with 2-0 Vicryl for hemostasis. The leads were connected to the resynchronization ICD pulse generator. The pocket was irrigated with antibiotic solution. The pulse generator was placed into the pocket with redundant lead allowed to form a candi coil behind the pulse generator. The pocket was irrigated with antibiotic solution. The pocket was closed in 2 layers with 2-0 and 3-0 Vicryl for the subcutaneous and subcuticular layers respectively. Hemostasis was achieved with manual pressure. Upon closure no bleeding was noted. A sterile dressing was applied. The patient was recovered and sent to their room in stable condition. Complications: none. Specimens: none. Estimated blood loss: 10mL. 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 Model Serial No. Location 10/24/2024 [employer] G247: VIGILANT X4 CUSTOMER RELATIONSHIP SPECIALIST-D IS-1/DF4/IS4 [id number] L - Subcutaneous 10/24/2024 [employer] 0673: RELIANCE 4-FRONT S Active Fix Single Coil 64cmBi [id number] RV 10/24/2024 [employer] 7841: INGEVITY+ IS-1 Bi Positive Fix RA/RV 52cm Bi [id number] RA 10/24/2024 [employer] 4678: ACUITY X4 Spiral L LVA Quad Electrode IS4 Passive 95 cm Quad [id number] LV Measured Data Device Measurements PSA Measurements Lead Threshold Intrinsic Threshold Imp. RA 1.7 mV 2.1V @ 0.5ms 600 ohms RV 17.6 mV 0.5V @ 0.5ms 949 ohms LV 7.0 mV 0.7V @ 0.5ms 988 ohms (LVTip2 to RV) Programmed Parameters Mode: DDD LRL / MTR : 60 ppm / 130 ppm PAV Delay: 180ms - 180ms ANNA Delay: 120ms - 120ms PVARP: 230ms - 280ms LV Pace Vector: LVTip1 to LVRing2 LV Sense Vector: LVTip1 to LVRing2 Sensitivity Output RA 0.25 mV 3.5V @ 0.4ms RV 0.6 mV 3.5V @ 0.4ms LV 1 mV 3.5V @ 0.4ms LV Offset: 0ms ATR Mode Switch: On - 170 bpm HeartLogic: On ICD Therapy Parameters Zone Rate Duration Detection Enhancements Therapy VF 185 bpm 2.5 sec. Quick Convert, 41J x 1, 41J x 1, 41J x 6 VT 165 bpm 5 sec. Onset/Stability Monitor Only Lead Polarity: Initial Shock Vector: Distal Coil to Can
[2024-10-24] MEDS: Albuterol 2.5 MG/3 ML VIAL.NEB. INHALATION ×2 (13:24→19:57)
--- NOTE | 2024-10-24 14:25 | RAD_ITS ---
PROCEDURE: CHEST 1 VIEW (PORTABLE) 10/24/2024 REASON FOR EXAM: DO WITHIN 2-4 HOURS OF PROCEDURE TECHNIQUE: Frontal view of the chest. COMPARISON: Chest x-ray of 10/15/2024. RAD/Chest 1 View (Portable) IMPRESSION: Prior sternotomy again noted. Stable positioning of aortic valve replacement. Partially visualized right shoulder prosthesis in place. Interval placement of left thoracic transvenous pacemaker/AICD device with lead s. No pneumothorax is seen. No pleural effusion is evident. Lungs are hypoinflated, but appear clear. The cardiomediastinal silhouette is stable, without evidence of cardiomegaly. Reading Location: [place] [id number]
[2024-10-24] MEDS: Cefazolin 2 GM in 0.9% Normal Saline (100mL Bag) 100 ML IV (17:22)
[2024-10-24] MEDS: Budesonide Respules 0.5 MG/2 ML AMPUL.NEB. INHALATION (19:56)
[2024-10-24] MEDS: Pramipexole Di-HCl 0.25 MG Tablet PO (20:48)
[2024-10-25 03:00] VITALS: PULSE 65
[2024-10-25 03:07] VITALS: BP 128/81; PULSE 66; RESP 18; TEMP 35.7; O2SAT 97
--- NOTE | 2024-10-25 05:45 | RAD_ITS ---
PROCEDURE: CHEST 3 VIEW 10/25/2024 REASON FOR EXAM: POST PERMANANT ICD/PACEMAKER TECHNIQUE: Frontal view during inspiration and expiration and lateral. 2 lateral views to include the entire chest, 4 total images COMPARISON: 10/24/2024 FINDINGS: Left chest multi lead AICD. The lungs appear clear. No pneumothorax or pleural effusion identified. Status post median sternotomy and aortic valve replacement again noted. Epicardial pacing wires. Right shoulder replacement incompletely imaged. RAD/Chest 3 View IMPRESSION: Study appears within limits as above. Reading Location: [id number]
[2024-10-25] MEDS: Levothyroxine 25 MCG TABLET PO (06:04)
[2024-10-25 07:24] VITALS: PULSE 70; RESP 16
[2024-10-25] MEDS: Budesonide Respules 0.5 MG/2 ML AMPUL.NEB. INHALATION (07:24)
[2024-10-25] MEDS: Albuterol 2.5 MG/3 ML VIAL.NEB. INHALATION (07:24)
[2024-10-25 08:23] VITALS: BP 134/86; PULSE 71; RESP 18; TEMP 36.6; O2SAT 98
[2024-10-25] MEDS: Losartan Potassium 25 MG Tablet PO (08:27)
[2024-10-25] MEDS: Amiodarone 200 MG Tablet PO (08:27)
[2024-10-25] MEDS: Fluticasone 0.05% 1 SPRAY NASAL.SRY 2 SPRAY NASAL (08:28)
[2024-10-25] MEDS: Furosemide 40 MG Tablet PO (08:28)
[2024-10-25] MEDS: Empagliflozin 25 MG Tablet PO (08:28)
--- NOTE | 2024-10-25 10:21 | DCINST_ITS ---
Discharge Instructions Diet Discharge Diet: No restrictions (as you feel able. No excessive stretching. No lifting your arm over your head (keep elbow below shoulder level) until seen for your pacemaker check. Do not lift your elbow away from your side until you are seen for your first visit. Keep the arm sling on if it helps remind you not to lift your arm.) DC O2, CPAP, BIPAP needs Home O2 Discharge instructions: No Dressing / Incision Discharge Activity: May Not Drive May shower in (days): 2 Additional Activity Instructions:: May shower or bathe on [day 3]. Do not scrub the incision or soak in the tub. Just wash with soap and let the water run over the incision. Gently pat dry with towel. Medications: Take your pain medication as directed. Refer to your discharge instruction sheet for a list of medications you are to take. Dressing / Incision Call your doctor if your incision/area has: Continuous Slow Oozing, Sudden Increased Bleeding, Increased Pain/ Swelling, Increased Redness, Foul Smelling Discharge and Swelling at the incision site Call your doctor if you observe: Fever of 101 or Higher, Shortness of breath, Dizziness, Fainting spells, Swelling in the ankles, Chest pain, Prolonged hiccupping and Increased palpitations (irregular heartbeat) Suture Line Care: Avoid Pulling/Pushing and Avoid Pinching/Bending Change Dressing in: do not change dressing Additional Dressing/Incision Instructions:: Keep covered with a light bandage if it is rubbing against your clothing. Leave the dressing on. Follow Up Care Please Follow Up With: Brendon Leach MD When: Pacer follow-up on October 31 at 1 PM in the pacer clinic. Test Results: Test results from this visit will be discussed in further detail at your follow- up appointment, if applicable. Discharge Plan Admission Admit Date/Time: 10/24/24 16:40 Attending Provider: Amor Schaefer Primary Care Provider: Roberto Carlos Fernandes Discharge Orders/Prescriptions Prescriptions: Continued fluticasone furoate-vilanterol [Breo Ellipta] 200-25 mcg/dose blister with device 1 inh inhalation QDAY fluticasone propionate [Flonase Allergy Relief] 50 mcg/actuation spray,suspension 2 spray intranasal QDAY Rx Instructions: administer into each nostril flaxseed oil 13.9 gram/15 mL liquid 13.9 g PO DAILY PRN (Reason: constipation) losartan 25 mg tablet 25 mg PO DAILY Qty: 30 11RF dapagliflozin propanediol [Farxiga] 10 mg tablet 10 mg PO DAILY Qty: 30 11RF levothyroxine 25 mcg tablet 25 mcg PO QDAY pramipexole 0.25 MG tablet 0.25 mg PO QHS Patient Comments: restless legs albuterol sulfate 90 mcg/actuation HFA aerosol inhaler 2 puff INHALATION Q4H PRN PRN (Reason: sob & or wheezing) Patient Comments: INHALE 2 PUFFS BY MOUTH EVERY 4 HOURS NEEDED FOR SHORTNESS OF BREATH AND WHEEZING furosemide [Lasix] 40 mg tablet 40 mg PO DAILY 30 Days Qty: 30 0RF amiodarone 200 mg tablet 200 mg PO QDAY Qty: 90 3RF Held Eliquis 5 mg tablet 5 mg PO Q12H Hold Instructions: Resume on 11/01/24. Patient Comments: [NO ORIGINAL SIG] Referrals / Follow Up: Roberto Carlos Fernandes MD [Primary Care Provider] - Disposition Disposition (needs filled in before D/C Order can be placed): Home, Self Care
--- NOTE | 2024-10-25 10:31 | CASEMGMT ---
Pt with dc order placed. IGLESIA CM into pt room, pt lying in bed with L arm in sling. Pt states he is right had dominant. Pt typically uses a cane at home, has a walker. Pt present in room and feels she is able to assist pt as needed. Pt is typically indep. Pt and deny any homegoing needs.
--- NOTE | 2024-10-25 10:52 | PHA.DC.MR.R ---
Pharmacy [place] Med Reconciliation Pharmacy Service has performed discharge medication reconciliation for this patient. The patient's discharge medication list was reviewed for discrepancies and discrepancies were resolved. Medications at Discharge Home Medications pramipexole 0.25 mg tablet 0.25 mg PO QHS restless legs 11/25/14 albuterol sulfate 90 mcg/actuation aerosol inhaler 2 puff inhalation Q4H PRN PRN sob & or wheezing 02/27/21 apixaban 5 mg tablet (Eliquis) 5 mg PO Q12H blood thinner 06/28/24 Held on 10/25/24. Instructions: Resume on 11/01/24. fluticasone furoate 200 mcg-vilanterol 25 mcg/dose inhalation powder (Breo Ellipta) 1 inh inhalation QDAY breathing 07/19/24 fluticasone propionate 50 mcg/actuation nasal spray,suspension (Flonase Allergy Relief) 2 spray intranasal QDAY allergies 07/26/24 levothyroxine 25 mcg tablet 25 mcg PO QDAY thyroid 08/16/24 dapagliflozin propanediol 10 mg tablet (Farxiga) 10 mg PO DAILY diabetes #30 tabs 09/04/24 flaxseed oil 13.9 gram/15 mL oral liquid 13.9 g PO DAILY PRN constipation 09/04/24 losartan 25 mg tablet 25 mg PO DAILY blood pressure #30 tabs 09/04/24 furosemide 40 mg tablet (Lasix) 40 mg PO DAILY diuretic 30 days #30 tabs 09/19/24 amiodarone 200 mg tablet 200 mg PO QDAY heart rate #90 tabs 10/14/24
== END 2024-10-25 10:21 | disposition home or self-care (01) ==
LOC: CLSP 16:50 → PCU 18:37
PROVIDERS: Admitting Provider Internal Medicine Clinical Cardiac Electrophysiology; PCP Family Medicine; Referring Provider Internal Medicine Clinical Cardiac Electrophysiology; Visit Provider Internal Medicine Clinical Cardiac Electrophysiology
DX: Z45.02 Encounter for adjustment and management of automatic implantable cardiac defibrillator (principal); I50.22 Chronic systolic (congestive) heart failure; I11.0 Hypertensive heart disease with heart failure; J44.89 Other specified chronic obstructive pulmonary disease; I48.0 Paroxysmal atrial fibrillation; I42.8 Other cardiomyopathies; E11.9 Type 2 diabetes mellitus without complications; Z95.2 Presence of prosthetic heart valve; I45.4 Nonspecific intraventricular block; I44.7 Left bundle-branch block, unspecified; Z79.01 Long term (current) use of anticoagulants; R53.83 Other fatigue; R42 Dizziness and giddiness; R07.89 Other chest pain; Z79.899 Other long term (current) drug therapy; Z79.51 Long term (current) use of inhaled steroids; Z86.711 Personal history of pulmonary embolism
CPT/HCPCS: 33225; 71045; 71046; 71047; 93005; 94640; 94660; 96365; 99152; 99153; 99221; Q9967; C1769; C1894; G0378

== ENCOUNTER 2024-11-26 05:49 | Emergency (ER) | payer MEDICARE, OTHER, SELFPAY ==
[2024-11-08 08:48] VITALS: BMI 31.4
[2024-11-26 05:50] VITALS: BP 148/80; PULSE 77; RESP 18; TEMP 36.9; O2SAT 95; BMI 31.8
--- NOTE | 2024-11-26 06:09 | EKG12_ITS ---
Test Reason : CP Blood Pressure : */* mmHG Vent. Rate : 78 BPM Atrial Rate : 78 BPM P-R Int : 110 ms QRS Dur : 182 ms QT Int : 490 ms P-R-T Axes : * 243 43 degrees QTcB Int : 558 ms Atrial-sensed ventricular-paced rhythm Abnormal ECG Confirmed by MIGUEL A ALFARO, JEANNETTE ([id number]), newspaper managing editor YAEL GARCIA ([id number]) on 11/27/2024 8:22:48 AM Referred By: Confirmed By: JEANNETTE GRADY MD
--- NOTE | 2024-11-26 06:11 | RAD_ITS ---
PROCEDURE: CHEST 1 VIEW (PORTABLE) 11/26/2024 REASON FOR EXAM: CHEST PAIN TECHNIQUE: Frontal view of the chest. COMPARISON: 10/24/2024. FINDINGS: Unremarkable median sternotomy wires. AICD is in good position. Unremarkable metallic prosthesis of the right shoulder. The lungs are expanded. There is no demonstrated parenchymal abnormality. There is no demonstrated pleural abnormality. Enlarged cardiac silhouette. Normal mediastinum and eddy. Normal visualized pulmonary arteries. Atheromatous plaques of the visualized aortic arch and descending thoracic aorta. Diffuse spondylosis of the visualized thoracic spine. Normal visualized ribs, clavicles. Degenerative joint disease. There is no demonstrated abnormality of the visualized soft tissue structures of the upper abdomen. RAD/Chest 1 View (Portable) IMPRESSION: No evidence for acute abnormality. Reading [facility]
[2024-11-26 06:22] LABS: Absolute Lymphocyte Count 1.26 X10^3/uL (0.83-4.51); Absolute Neutrophil Count 5.1 X10^3/uL (2.0-7.7); Basophil# 0.07 X10^3/uL; Basophil% 0.9 % (0-1); Eosinophil# 0.43 X10^3/uL; Eosinophils% 5.6 % (0-5); Hematocrit 50.4 % (40-54); Hemoglobin 16.3 g/dL (13.0-16.5); Lymphocyte # 1.26 X10^3/ul (0.83-4.51); Lymphocyte % 16.5 % (19-41); Mean Corp Hgb Conc 32.3 g/dL (32-36); Mean Corpuscular Hgb 27.6 pg (27.0-32.0); Mean Corpuscular Volume 85.3 fL (80-94); Mean Platelet Vol. 9.4 fl (6.2-12.0); Monocyte# 0.77 X10^3/uL; Monocyte% 10.1 % (0-10); NRBC Flagged by Analyzer 0 % (0-5); Neutrophil # 5.05 X10^3/uL (2.7-7.7); Neutrophil % 66.1 % (47-70); Platelet Count 163 K/mm3 (150-450); RBC Distribution Width CV 15.4 % (11.6-14.6); RBC Distribution Width SD 46.8 fl (35.1-43.9); Red Blood Count 5.91 M/mm3 (4.6-6.2); White Blood Count 7.6 K/mm3 (4.4-11.0)
[2024-11-26 06:42] LABS: Anion Gap 14 (5-15); BUN 29 mg/dL (4-19); BUN/Creat Ratio 20.2 RATIO (10-20); Chloride 105 mmol/L (98-108); Creatinine, Serum 1.43 mg/dL (0.70-1.20); EST Glomerular Filtration Rate 51 (>60); Estimated Creatinine Clearance 58.86 ml/min (50-250); Glucose 198 mg/dL (70-99); Sodium Level 139 mmol/L (133-145); Troponin T High Sensitivity 22 ng/L (<=22)
[2024-11-26] MEDS: Pantoprazole Sodium 40 MG in 0.9% Normal Saline (100mL MB+) 100 ML 330 MG IV (06:48)
[2024-11-26] MEDS: Mag Hydrox/Al Hydrox/Simeth 30 ML UDC PO (06:50)
[2024-11-26] MEDS: Lidocaine 2% Viscous15 ML UDC 15 ML PO (06:50)
[2024-11-26 07:38] VITALS: BP 125/80; PULSE 70; RESP 18; O2SAT 95
[2024-11-26 08:11] VITALS: BP 139/71; PULSE 68; RESP 15; O2SAT 94
[2024-11-26 08:15] LABS: Troponin T High Sens 2 HR 22 ng/L (<=22)
--- NOTE | 2024-11-26 08:31 | EX.ED.DYSGE1 ---
HPI History of Present Illness Chief Complaint: Chest Pain Informant: patient and spouse/S.O. Narrative Narrative: Patient is a 74-year-old male with past medical history of anxiety depression hypertension and previous CAD requiring implantable pacer/defibrillator. He states that last night he ate sausage prior to going to bed. He states he awoke with a vague discomfort/burning sensation in the upper abdomen/lower chest. He states that as his pacer/defibrillator was placed roughly 5 weeks ago he is unsure if the sensation was secondary to a complication from this. Therefore he decided to present for evaluation. He does state that upon arrival his symptoms have spontaneously improved. He does report he is on Eliquis at this time. [facility] Medical History (Updated 11/28/24 @ 06:[address] Rakesh Hickey, ) Biventricular implantable cardioverter-defibrillator (ICD) in situ Nonischemic cardiomyopathy Cardiac LV ejection fraction <20% Bradycardia History of cardioversion (07/2024) Cardiomyopathy Fatty liver CAD (coronary artery disease) Atrial fibrillation status post cardioversion Syncope Benign paroxysmal positional vertigo Obesity (BMI 30.0-34.9) Chronic systolic CHF (congestive heart failure) Chronic bundle branch block Stenosis of lumbosacral spine Lumbar disc disease First degree AV block Asthma Blindness of left eye Rheumatoid arthritis History of pulmonary embolism History of kidney stones Hiatal hernia History of diverticulitis Limited mobility Depression Anxiety Restless legs Back pain Vision loss of left eye Kidney stones CPAP (continuous positive airway pressure) dependence Pulmonary embolism H/O bicuspid aortic valve COPD (chronic obstructive pulmonary disease) Diabetes mellitus Sleep apnea Hypertension Home Medications ?Medication ?Instructions ?Recorded ?Last Taken ?Type pramipexole 0.25 mg tablet 0.25 mg PO QHS restless legs 11/25/14 07/14/24 History albuterol sulfate 90 mcg/actuation 2 puff inhalation Q4H PRN PRN sob 02/27/21 12/15/21 07:30 History aerosol inhaler & or wheezing apixaban 5 mg tablet (Eliquis) 5 mg PO Q12H blood thinner 06/28/24 10/22/24 History fluticasone furoate 200 1 inh inhalation QDAY breathing 07/19/24 Unknown History mcg-vilanterol 25 mcg/dose inhalation powder (Breo Ellipta) fluticasone propionate 50 2 spray intranasal QDAY allergies 07/26/24 Unknown History mcg/actuation nasal spray,suspension (Flonase Allergy Relief) dapagliflozin propanediol 10 mg 10 mg PO DAILY diabetes #30 tabs 09/04/24 Unknown Rx tablet (Farxiga) flaxseed oil 13.9 gram/15 mL oral 13.9 g PO DAILY PRN constipation 09/04/24 Unknown History liquid losartan 25 mg tablet 25 mg PO DAILY blood pressure #30 09/04/24 10/24/24 Rx tabs furosemide 40 mg tablet (Lasix) 40 mg PO DAILY diuretic 30 days 09/19/24 Unknown Rx #30 tabs amiodarone 200 mg tablet 200 mg PO QDAY heart rate #90 tabs 10/14/24 10/24/24 Rx levothyroxine 25 mcg tablet 25 mcg PO QDAY thyroid #90 tabs 10/28/24 Unknown Rx atorvastatin 40 mg tablet 40 mg PO DAILY 11/26/24 Unknown History Allergy/AdvReac Type Severity Reaction Status Date / Time hydrochlorothiazide (hctz) Allergy Intermediate hypercalcem Verified 11/26/24 05:50 ia erythromycin base AdvReac Diarrhea Verified 11/26/24 05:50 oxycodone (From Percocet) AdvReac Other Verified 11/26/24 05:50 tramadol AdvReac Other Verified 11/26/24 05:50 Family History Mother Asthma Father CVA (cerebral vascular accident) Pulmonary embolism Brother Diabetes Hypertension Grandmother CVA (cerebral vascular accident) Heart disease Grandfather Heart disease Surgical History S/P AVR (aortic valve replacement) (03/20/24) History of coronary artery bypass graft S/P aortic valve repair Hx of cystoscopy History of thoracic aortic aneurysm repair H/O shoulder replacement Status post reverse total shoulder replacement Social History household members: spouse housing: house Smoking Status: Never smoker alcohol intake: never substance use type: does not use caffeine: Yes Type: coffee Number of servings: 1 ROS ROS ED Constitutional Constitutional ED: Denies chills or fever(s) Eyes Eyes: Denies blurry vision or change in vision ENT ENT ED: Denies sore throat Cardiovascular Cardiovascular: Reports chest pain and palpitations; Denies racing heartbeat Respiratory/Chest Respiratory/Chest: Denies cough or dyspnea Gastrointestinal Gastrointestinal: Reports abdominal pain and nausea; Denies diarrhea or vomiting Genitourinary Genitourinary ED: Denies dysuria or hematuria Musculoskeletal Musculoskeletal: Denies back pain or myalgias Integumentary Denies rash Neurologic Neurologic: Denies headache(s) Hematologic/Lymphatic Hematologic/Lymphatic: Reports easy bleeding and easy bruising EXAM Physical Exam Const Vital Signs: 11/26/24 05:50 11/26/24 05:53 11/26/24 06:09 Temperature 98.4 F Temperature Source Oral Pulse Rate 77 Respiratory Rate 18 Respiratory Effort Normal Non-Labored Respiratory Pattern Normal Blood Pressure 148/80 H Blood Pressure Mean 102 Pulse Ox 95 Oxygen Delivery Method Room Air Room Air 11/26/24 07:38 11/26/24 08:11 Temperature Temperature Source Pulse Rate 70 68 Respiratory Rate 18 15 Respiratory Effort Respiratory Pattern Blood Pressure 125/80 H 139/71 H Blood Pressure Mean 95 93 Pulse Ox 95 94 Oxygen Delivery Method Room Air Positive well nourished and well developed General Appearance ED: well developed HEENT HEENT Narrative: Normocephalic atraumatic Eyes PERRL and EOMs intact bilaterally General Eye ED: Negative for pale conjunctiva or scleral icterus Neck supple and no JVD Neck Narrative: No nuchal rigidity or meningeal signs noted Chest Wall palpation of chest normal Chest Narrative: No bony deformity or crepitance noted Resp normal respiratory effort and clear to auscultation bilaterally Resp Narrative: Breath sounds are slightly diminished throughout but overall clear to auscultation without signs of distress Cardio regular rate and regular rhythm Rate: other Other Details: Heart is regular rate and rhythm Radial and carotid pulses are equal and symmetric GI non-distended and no masses GI Narrative: Abdomen is soft and nondistended with normal active bowel sounds. There is mild pain with palpation in the midepigastric region without voluntary guarding or rigidity. No pulsatile mass or fluid wave. Auscultation: normoactive bowel sounds Palpation: soft Back/Spine no CVA tenderness Extremity Extremity Narrative: +1 pitting edema to the bilateral lower extremities that is equal and symmetric Negative Homans' sign bilaterally Neuro oriented x3, CN's II-XII intact bilaterally and no sensory deficits noted Sensorium / Orientation: alert Motor Exam: strength 5/5 throughout Psych mental status grossly normal Skin no rashes or lesions noted and no wounds General Skin Exam: Negative for jaundice MDM MDM MDM Narrative Medical decision making narrative: Patient arrived to the ER hypertensive but otherwise with stable vitals. He reported waking from sleep with vague midsternal chest discomfort and reports that symptoms have spontaneous improved upon arrival to the ER. With his recent pacemaker/defibrillator placement there is concern that there could be derangement to the wires or potential lung complications such as pneumonia or pneumothorax. Patient also could have atypical presentation for acute coronary syndrome. His exam however is most consistent with GERD as a cause of his symptoms exacerbated by anxiety. An EKG was obtained which revealed a paced rhythm and his initial and delta troponin were both normal at 22 going against ACS. Chest x-ray revealed no acute lung pathology and indicated that the pacemaker wires were intact and in place. After receiving IV Protonix and a GI cocktail the patient reported complete resolution of his symptoms and his vitals improved as well. Therefore at this time with overall negative workup and resolution of symptoms I feel that this discomfort he had this morning is GI in nature and not cardiac in patient is otherwise safe for discharge. History & Record Review Discussion w/independent historian: Patient and Significant other Lab Data Attestation: I reviewed the patient's lab results. Labs: Laboratory Results - last 24 hr 11/26/24 11/26/24 05:58 07:50 WBC 7.6 RBC 5.91 Hgb 16.3 Hct 50.4 MCV 85.3 MCH 27.6 MCHC 32.3 RDW Std Deviation 46.8 H RDW Coeff of Cristal 15.4 H Plt Count 163 MPV 9.4 Immature Gran % (Auto) 0.800 Neut % (Auto) 66.1 Lymph % (Auto) 16.5 L [place] % (Auto) 10.1 H Eos % (Auto) 5.6 H Baso % (Auto) 0.9 Absolute Neuts (auto) 5.1 Absolute Lymphs (auto) 1.26 Nucleated RBC % 0 Sodium 139 Potassium 4.0 Chloride 105 Carbon Dioxide 21.0 Anion Gap 14 BUN 29 H Creatinine 1.43 H Estim Creat Clear Calc 58.86 Est GFR (MDRD) Non-Af 51 L BUN/Creatinine Ratio 20.2 H Glucose 198 H Calcium 10.0 Troponin T High Sens 22 D Troponin T Hi Sens 2 Hr 22 Radiography Diagnostic Testing: Clinical Impression(s) from Imaging Studies Chest X-Ray 11/26/24 06:11 IMPRESSION: No evidence for acute abnormality. Reading Location: [place] [id number] Chest x-ray as interpreted by the emergency medicine physician reveals pacemaker to be intact and in place without lung pathology such as pneumonia pneumothorax or pleural effusion Discharge Plan Triage Chief Complaint: Chest Pain ED Provider: Rakesh Hickey Dx/Rx/DC Orders Clinical Impression: Nonspecific chest pain, Hypertension, Anxiety, Depression, Biventricular implantable cardioverter-defibrillator (ICD) in situ, GERD (gastroesophageal reflux disease) Instructions: ED Chest Pain, Uncertain Cause Prescriptions: No Action fluticasone furoate-vilanterol [Breo Ellipta] 200-25 mcg/dose blister with device 1 inh inhalation QDAY fluticasone propionate [Flonase Allergy Relief] 50 mcg/actuation spray,suspension 2 spray intranasal QDAY Rx Instructions: administer into each nostril flaxseed oil 13.9 gram/15 mL liquid 13.9 g PO DAILY PRN (Reason: constipation) losartan 25 mg tablet 25 mg PO DAILY Qty: 30 11RF dapagliflozin propanediol [Farxiga] 10 mg tablet 10 mg PO DAILY Qty: 30 11RF pramipexole 0.25 MG tablet 0.25 mg PO QHS Patient Comments: restless legs albuterol sulfate 90 mcg/actuation HFA aerosol inhaler 2 puff INHALATION Q4H PRN PRN (Reason: sob & or wheezing) Patient Comments: INHALE 2 PUFFS BY MOUTH EVERY 4 HOURS NEEDED FOR SHORTNESS OF BREATH AND WHEEZING Eliquis 5 mg tablet 5 mg PO Q12H Patient Comments: [NO ORIGINAL SIG] furosemide [Lasix] 40 mg tablet 40 mg PO DAILY 30 Days Qty: 30 0RF atorvastatin 40 mg tablet 40 mg PO DAILY amiodarone 200 mg tablet 200 mg PO QDAY Qty: 90 3RF levothyroxine 25 mcg tablet 25 mcg PO QDAY Qty: 90 3RF Primary Care Provider: Roberto Carlos Fernandes Referrals: Roberto Carlos Fernandes MD [Primary Care Provider] - Activity Restrictions/Additional Instructions: Please follow-up with your rehab manager for further evaluation but your workup today does not reveal any signs of active heart damage. There is concern you may need to go back on your omeprazole as symptoms could be related to acid reflux. Continue all of your home medications as directed by your doctor and return to the ER should you have any further concerns Print Language: Danish Disposition Disposition: Home, Self Care Discharge Date/Time: 11/26/24 08:39
[2024-11-26 08:38] VITALS: BP 129/82; PULSE 72; RESP 16; TEMP 36.7; O2SAT 96
== END 2024-11-26 08:39 | disposition home or self-care (01) ==
PROVIDERS: Emergency Provider Emergency Medicine; PCP Family Medicine; Visit Provider Emergency Medicine
DX: R07.9 Chest pain, unspecified (principal); I11.0 Hypertensive heart disease with heart failure; I50.22 Chronic systolic (congestive) heart failure; J44.9 Chronic obstructive pulmonary disease, unspecified; I48.91 Unspecified atrial fibrillation; E11.9 Type 2 diabetes mellitus without complications; K21.9 Gastro-esophageal reflux disease without esophagitis; F41.9 Anxiety disorder, unspecified; F32.A Depression, unspecified; Z95.810 Presence of automatic (implantable) cardiac defibrillator; I25.10 Atherosclerotic heart disease of native coronary artery without angina pectoris; Z79.01 Long term (current) use of anticoagulants; G47.30 Sleep apnea, unspecified; Z99.89 Dependence on other enabling machines and devices; G25.81 Restless legs syndrome; Z79.51 Long term (current) use of inhaled steroids; Z79.899 Other long term (current) drug therapy; Z95.2 Presence of prosthetic heart valve; Z96.619 Presence of unspecified artificial shoulder joint
CPT/HCPCS: 71045; 80048; 84484; 85025; 93005; 96365; 99284; A4216

== ENCOUNTER 2024-12-26 10:16 | Observation (INO) | payer MEDICARE, OTHER, SELFPAY ==
[2024-12-05 10:06] VITALS: BMI 31.4
[2024-12-26] VITALS (22 sets, daily range): BP systolic 131–195; BP diastolic 54–101; PULSE 64–97; RESP 14–20; TEMP 36.1–36.7; O2SAT 93–100; BMI 31.6; BMI 30.4
--- NOTE | 2024-12-26 10:30 | RAD_ITS ---
PROCEDURE: CHEST PA AND LATERAL 12/26/2024 REASON FOR EXAM: CHEST PAIN TECHNIQUE: CHEST PA AND LATERAL COMPARISON: Portable chest, 11/26/2024 FINDINGS: There is chronic elevation of the left hemidiaphragm. There is compressive atelectasis of the adjacent portion of the left lung. The lungs are otherwise clear. There is cardiomegaly. There is an aortic valve prosthesis. There is a multi lead pacemaker. There is an epicardial pacemaker wire. The upper abdominal bowel gas pattern is normal. Status post median sternotomy. Status post right shoulder arthroplasty. RAD/Chest PA and Lateral IMPRESSION: No evidence of acute cardiopulmonary pathology. Other findings as noted. Reading Location: [place] [id number]
[2024-12-26 10:34] LABS: Hematocrit 51.2 % (40-54); Hemoglobin 16.2 g/dL (13.0-16.5); Immature Granulocytes Count 0.060 X10^3/uL (0.0-0.0); Mean Corp Hgb Conc 31.6 g/dL (32-36); Mean Corpuscular Volume 84.9 fL (80-94); Mean Platelet Vol. 10.1 fl (6.2-12.0); NRBC Flagged by Analyzer 0 % (0-5); Platelet Count 153 K/mm3 (150-450); RBC Distribution Width CV 17.2 % (11.6-14.6); RBC Distribution Width SD 49.1 fl (35.1-43.9); Red Blood Count 6.03 M/mm3 (4.6-6.2); White Blood Count 6.7 K/mm3 (4.4-11.0)
[2024-12-26] MEDS: 0.9% Normal Saline (1000mL) 1,000 ML 999 ML IV (10:40)
--- NOTE | 2024-12-26 10:56 | CT_ITS ---
EXAM: CT Head Without Intravenous Contrast CLINICAL INDICATION: NEURO DEFICIT, ACUTE, STROKE SUSPECTED TECHNIQUE: Axial computed tomography images of the head/brain without intravenous contrast. This CT exam was performed using one or more of the following dose reduction techniques: automated exposure control, adjustment of the mA and/or kV according to patient size, and/or use of iterative reconstruction technique. COMPARISON: CT Head dated 07/15/2024 FINDINGS: BRAIN AND EXTRA-AXIAL SPACES: The cerebral and cerebellar sulci are prominent consistent with brain atrophy. Areas of decreased attenuation in the deep cerebral white matter are consistent with small vessel ischemic/degenerative changes. No acute intracranial hemorrhage, midline shift or mass effect. If symptoms persist, further evaluation with MRI is recommended. BONES/JOINTS: Unremarkable. No acute fracture. SOFT TISSUES: Unremarkable. SINUSES: Unremarkable as visualized. No acute sinusitis. MASTOID AIR CELLS: Unremarkable as visualized. No mastoid effusion. CT/STROKE Brain/Head without Cont IMPRESSION: 1. Generalized brain atrophy. 2. Small vessel ischemic/degenerative changes. 3. No acute intracranial hemorrhage, midline shift or mass effect. If symptoms persist, further evaluation with MRI is recommended. 4. No significant change from the prior exam. Red Alert: No acute intracranial hemorrhage. The critical information above was relayed directly by me by telephone to Eric Jc on 12/26/2024 at 11:11 am with readback verification. Reading Location: [facility]
--- NOTE | 2024-12-26 11:00 | CT_ITS ---
PROCEDURE: CTA CHEST W/WO CONTRAST 12/26/2024 REASON FOR EXAM: CHEST PAIN SOB TECHNIQUE: CTA CHEST W/WO CONTRAST Multiplanar Sagittal and Coronal images were obtained. 3D post processing was performed One or more dose reduction techniques were used (e.g., Automated exposure control, adjustment of the mA and/or kV according to patient size, use of iterative reconstruction technique). CONTRAST: Isovue 370 VOLUME: 100 mL RADIATION DOSE SUMMARY: CTDlvol: 23 mGy DLP: 2121.56 mGycm COMPARISON: Prior chest radiograph done earlier in the day. FINDINGS: Hardware: Left cardiac pacemaker. Lymph nodes: Tiny mediastinal lymph nodes. Heart: Prior midline sternotomy and coronary artery bypass surgery. Calcification of the red devil coronary prior aortic valve replacement. Thoracic Aorta: No thoracic aortic aneurysm or dissection. Pulmonary Vessels: No evidence of pulmonary embolism. Lungs and Airways: Mild degree of dependent bibasilar atelectasis. No focal infiltrate is seen. Pleura: No evidence of pleural effusion. Upper Abdomen: Tiny nonobstructive calculus in the upper pole of the right and left kidneys. Bones: Degenerative changes of the thoracic spine. CT/CTA Chest W/WO Contrast IMPRESSION: No evidence of pulmonary embolism. Mild bibasilar atelectasis. Tiny nonobstructive calculi in the upper pole of the right and left kidneys. Reading Location: [place] [id number]
--- NOTE | 2024-12-26 11:00 | CT_ITS ---
PROCEDURE: STROKE CTA HEAD AND NECK W/CON 12/26/2024 REASON FOR EXAM: NEURO DEFICIT, ACUTE, STROKE SUSPECTED TECHNIQUE: STROKE CTA HEAD AND NECK W/CON Multiplanar Sagittal and Coronal images were obtained. 3D post processing was performed CONTRAST: Isovue 370 VOLUME: 100 mL One or more dose reduction techniques were used (e.g., Automated exposure control, adjustment of the mA and/or kV according to patient size, use of iterative reconstruction technique). RADIATION DOSE SUMMARY: CTDlvol: 23 mGy DLP: 2121.56 mGycm COMPARISON: Prior CT scan of the brain done earlier in the day. FINDINGS: Aortic Arch: Normal size and branching pattern. Mild atherosclerotic plaque. Status post midline sternotomy. Brachiocephalic and Subclavians: Mild atherosclerotic plaque without significant stenosis. RIGHT Carotid: Right CCA: Unremarkable. Right ICA: Mild calcified and soft plaque. Maximum stenosis (NASCET): <50 % Right ECA: Unremarkable. LEFT Carotid: Left CCA: Unremarkable. Left ICA: Mild calcified and soft plaque. Maximum stenosis (NASCET): <50 % Left ECA: Unremarkable. Vertebrals: Codominant. Arise from the subclavians. Both vertebrals form the basilar. RIGHT Vertebral: Unremarkable. LEFT Vertebral: Unremarkable. Anatomy: [place] anatomy is normal. Aneurysm or avm: No intracranial aneurysms or large vascular malformations are identified. Anterior cerebral arteries: Unremarkable: Middle cerebral arteries: Unremarkable. Basilar artery: Unremarkable. Posterior cerebral arteries: Unremarkable. Other major branches of the posterior circulation: Unremarkable. Major venous structures: Unremarkable. Other findings: Neck: Lungs: Bones: CT/STROKE CTA Head AND Neck W/Con IMPRESSION: Mild calcific origin of the right and left internal carotid arteries causing le ss than 50% narrowing. No large vessel occlusion. Reading Location: [place] [id number]
[2024-12-26 11:05] LABS: Anion Gap 12 (5-15); BUN 21 mg/dL (4-19); BUN/Creat Ratio 15.4 RATIO (10-20); Calcium,Total 10.0 mg/dL (7.6-11.0); Carbon Dioxide 22.2 mmol/L (21.0-32.0); Chloride 108 mmol/L (98-108); Glucose 175 mg/dL (70-99); Potassium 4.5 mmol/L (3.3-5.1); Pro- Brain NATRIURETIC PEPTIDE 718 pg/mL (<=900); Troponin T High Sensitivity 21 ng/L (<=22)
[2024-12-26 11:36] LABS: Prothrombin Time (Protime)PT. 14.3 SECONDS (11.7-14.9)
[2024-12-26 11:37] LABS: Partial Thromboplast Time 25.5 Seconds (24.1-36.2)
--- NOTE | 2024-12-26 11:53 | ED.VIS.CHEST ---
HPI History of Present Illness Chief Complaint: Chest Pain Narrative Narrative: Patient is a 74-year-old male with past medical history of ICD, CAD, atrial fibrillation on Eliquis, vertigo, COPD, diabetes, hypertension, SIVAKUMAR who presented to the emergency department with a chief complaint of chest pain, dizziness. Patient states that around 8:30 AM he developed chest pressure and tightness and notes that he is also having dizziness associated with this and he states that this feels different than his normal vertigo. He states that currently he is still having some pressure in his chest but states that this has gotten better since arriving. [facility] Medical History Biventricular implantable cardioverter-defibrillator (ICD) in situ Nonischemic cardiomyopathy Cardiac LV ejection fraction <20% Bradycardia History of cardioversion (07/2024) Cardiomyopathy Fatty liver CAD (coronary artery disease) Atrial fibrillation status post cardioversion Syncope Benign paroxysmal positional vertigo Obesity (BMI 30.0-34.9) Chronic systolic CHF (congestive heart failure) Chronic bundle branch block Stenosis of lumbosacral spine Lumbar disc disease First degree AV block Asthma Blindness of left eye Rheumatoid arthritis History of pulmonary embolism History of kidney stones Hiatal hernia History of diverticulitis Limited mobility Depression Anxiety Restless legs Back pain Vision loss of left eye Kidney stones CPAP (continuous positive airway pressure) dependence Pulmonary embolism H/O bicuspid aortic valve COPD (chronic obstructive pulmonary disease) Diabetes mellitus Sleep apnea Hypertension Home Medications Medication Instructions Recorded Last Taken Type pramipexole 0.25 mg tablet 0.25 mg PO QHS restless legs 11/25/14 12/25/24 History albuterol sulfate 90 mcg/actuation 2 puff inhalation Q4H PRN PRN sob 02/27/21 12/15/21 07:30 History aerosol inhaler & or wheezing apixaban 5 mg tablet (Eliquis) 5 mg PO Q12H blood thinner 06/28/24 12/26/24 History fluticasone furoate 200 1 inh inhalation QDAY breathing 07/19/24 Unknown History mcg-vilanterol 25 mcg/dose inhalation powder (Breo Ellipta) fluticasone propionate 50 2 spray intranasal QDAY allergies 07/26/24 Unknown History mcg/actuation nasal spray,suspension (Flonase Allergy Relief) dapagliflozin propanediol 10 mg 10 mg PO DAILY diabetes #30 tabs 09/04/24 12/26/24 Rx tablet (Farxiga) flaxseed oil 13.9 gram/15 mL oral 13.9 g PO DAILY PRN constipation 09/04/24 Unknown History liquid losartan 25 mg tablet 25 mg PO DAILY blood pressure #30 09/04/24 12/26/24 Rx tabs furosemide 40 mg tablet (Lasix) 40 mg PO DAILY diuretic 30 days 09/19/24 12/26/24 Rx #30 tabs amiodarone 200 mg tablet 200 mg PO QDAY heart rate #90 tabs 10/14/24 12/26/24 Rx levothyroxine 25 mcg tablet 25 mcg PO QDAY thyroid #90 tabs 10/28/24 12/26/24 Rx atorvastatin 40 mg tablet 40 mg PO DAILY 11/26/24 12/25/24 History sertraline 50 mg tablet 50 mg PO QDAY 11/28/24 12/25/24 History Allergy/AdvReac Type Severity Reaction Status Date / Time hydrochlorothiazide (hctz) Allergy Intermediate hypercalcem Verified 12/26/24 10:28 ia erythromycin base AdvReac Diarrhea Verified 12/26/24 10:28 oxycodone (From Percocet) AdvReac Other Verified 12/26/24 10:28 tramadol AdvReac Other Verified 12/26/24 10:28 Family History Mother Asthma Father CVA (cerebral vascular accident) Pulmonary embolism Brother Diabetes Hypertension Grandmother CVA (cerebral vascular accident) Heart disease Grandfather Heart disease Surgical History S/P AVR (aortic valve replacement) (03/20/24) History of coronary artery bypass graft S/P aortic valve repair Hx of cystoscopy History of thoracic aortic aneurysm repair H/O shoulder replacement Status post reverse total shoulder replacement Social History household members: spouse housing: house Smoking Status: Never smoker alcohol intake: never substance use type: does not use caffeine: Yes Type: coffee Number of servings: 1 ROS ROS ED ROS Narrative Constitutional: Complains of dizziness as well as a headache denies any fevers or chills Eyes: Denies double vision blurry vision changes vision Cardiovascular: Complains of chest pain as noted above denies palpitations Respiratory: Denies coughing wheezing shortness of breath Abdomen: Complains of nausea denies abdominal pain : Denies any urinary symptoms Neurological: Denies any numbness, weak, tingling Musculoskeletal: Denies back pain Skin: Denies any rashes or lesions EXAM Physical Exam Narrative Exam Narrative: General: Patient lying in bed rest comfortably did not appear to be in acute distress Head: Atraumatic, normocephalic Eyes: PERRL bilaterally, EOMI by, no conjunctival injection noted Neck: Soft, supple, trachea midline Cardiovascular: Patient has an irregular irregular rhythm with a regular rate no murmurs gallops rubs are noted Respiratory: Clear to auscultation bilaterally Abdomen: No tenderness palpation Extremities: +5/5 strength noted in the bilateral upper and lower extremity, radial pulse +2/4 in the bladder extremities, no pedal edema on exam Neurological: Patient follow commands and that he was at [facility] year is 2024. NIH of 0 GCS 15 Skin: Warm, dry, tact no rashes or lesions noted Const Vital Signs: 12/26/24 10:17 12/26/24 10:23 12/26/24 10:27 Temperature 98.1 F Temperature Source Oral Pulse Rate 79 Respiratory Rate 20 H Respiratory Effort Normal Non-Labored Blood Pressure 165/101 H Blood Pressure Mean 122 Pulse Ox 96 96 Oxygen Delivery Method Room Air Room Air 12/26/24 10:34 12/26/24 10:55 12/26/24 10:56 Temperature Temperature Source Pulse Rate 73 Respiratory Rate 16 Respiratory Effort Blood Pressure 176/94 H Blood Pressure Mean 121 Pulse Ox 96 96 95 Oxygen Delivery Method Room Air Room Air Room Air 12/26/24 11:02 12/26/24 11:15 12/26/24 11:26 Temperature Temperature Source Pulse Rate 71 97 70 Respiratory Rate 14 17 18 Respiratory Effort Blood Pressure 165/101 H 195/86 H 188/95 H Blood Pressure Mean 122 122 126 Pulse Ox 96 96 96 Oxygen Delivery Method Room Air Room Air Room Air 12/26/24 11:30 12/26/24 12:00 12/26/24 12:48 Temperature 97.8 F Temperature Source Pulse Rate 69 65 65 Respiratory Rate 18 15 15 Respiratory Effort Blood Pressure 166/83 H 173/87 H 173/87 H Blood Pressure Mean 110 115 115 Pulse Ox 96 95 95 Oxygen Delivery Method Room Air Room Air MDM MDM MDM Narrative Medical decision making narrative: Patient is a 74-year-old male who presented to the emergency department chief complaint chest pain, headache, dizziness that feels different than his vertigo. Stroke alert was called. On the differential diagnose includes but not limited to ischemic stroke, hemorrhagic stroke, posterior circulation stroke, vertigo, hypoglycemia, electrolyte abnormality, dissection. Once workup is obtained reviewed he will be reevaluated. Patient's CBC reviewed and showed no evidence leukocytosis white blood count normal at 6.7, he was 16.2, platelet count 153. Patient's INR normal at 1.1, PT of 14.3. Patient sodium is 141, potassium normal 4.5, creatinine was 1.34. Patient troponin was noted be 21 with a proBNP of 718 EKG reviewed and showed a ventricular paced rhythm with a rate of 78 bpm no Sgarbossa criteria were met this was compared to previous EKG from October 24, 2024 and was largely unchanged. Patient's CT head brain without contrast showed no acute intracranial hemorrhage generalized brain atrophy small vessel ischemic/degenerative changes noted. Patient's CTA head and neck reviewed and showed mild calcific origin of the right and left internal carotid arteries causing less than 50% narrowing no large vessel occlusion noted. Patient CTA of the chest reviewed showed no evidence of pulmonary embolism mild basilar atelectasis. Teleneurology Dr. Youssef recommend admission for MRI and further workup for posterior circulation stroke versus atypical vertigo versus cardiac etiology. Will discuss case with hospitalist. I spoke with hospitalist Dr. Guido and who accept patient for admission. I notified the patient and he is agreeable this plan all question concerns answered at bedside. Lab Data Labs: Laboratory Results - last 24 hr 12/26/24 12/26/24 12/26/24 10:24 11:09 12:25 WBC 6.7 RBC 6.03 Hgb 16.2 Hct 51.2 MCV 84.9 MCH 26.9 L MCHC 31.6 L RDW Std Deviation 49.1 H RDW Coeff of Cristal 17.2 H Plt Count 153 MPV 10.1 Immature Gran % (Auto) 0.900 Neut % (Auto) 70.2 H Lymph % (Auto) 14.0 L [place] % (Auto) 9.2 Eos % (Auto) 4.8 Baso % (Auto) 0.9 Absolute Neuts (auto) 4.7 Absolute Lymphs (auto) 0.94 Nucleated RBC % 0 PT 14.3 INR 1.1 APTT 25.5 Sodium 141 Potassium 4.5 Chloride 108 Carbon Dioxide 22.2 Anion Gap 12 BUN 21 H Creatinine 1.34 H Est GFR (MDRD) Non-Af 56 L BUN/Creatinine Ratio 15.4 Glucose 175 H Calcium 10.0 Magnesium 2.3 H Troponin T High Sens 21 Troponin T Hi Sens 2 Hr 20 NT pro BNP II 718 POC Glucose 175 H Radiography Diagnostic Testing: Clinical Impression(s) from Imaging Studies Chest X-Ray 12/26/24 10:30 IMPRESSION: No evidence of acute cardiopulmonary pathology. Other findings as noted. Reading Location: [place] [address] 12/26/24 10:56 IMPRESSION: 1. Generalized brain atrophy. 2. Small vessel ischemic/degenerative changes. 3. No acute intracranial hemorrhage, midline shift or mass effect. If symptoms persist, further evaluation with MRI is recommended. 4. No significant change from the prior exam. Red Alert: No acute intracranial hemorrhage. The critical information above was relayed directly by me by telephone to Eric Hernadez on 12/26/2024 at 11:11 am with readback verification. Reading Location: [facility] Chest CTA 12/26/24 11:00 IMPRESSION: No evidence of pulmonary embolism. Mild bibasilar atelectasis. Tiny nonobstructive calculi in the upper pole of the right and left kidneys. Reading [facility] Head/Neck CTA 12/26/24 11:00 IMPRESSION: Mild calcific origin of the right and left internal carotid arteries causing less than 50% narrowing. No large vessel occlusion. Reading Location: [facility] Discharge Plan Triage Chief Complaint: Chest Pain ED Provider: Eric Hernadez Dx/Rx/DC Orders Clinical Impression: Dizziness, Chest pain Prescriptions: No Action fluticasone furoate-vilanterol [Breo Ellipta] 200-25 mcg/dose blister with device 1 inh inhalation QDAY fluticasone propionate [Flonase Allergy Relief] 50 mcg/actuation spray,suspension 2 spray intranasal QDAY Rx Instructions: administer into each nostril flaxseed oil 13.9 gram/15 mL liquid 13.9 g PO DAILY PRN (Reason: constipation) losartan 25 mg tablet 25 mg PO DAILY Qty: 30 11RF dapagliflozin propanediol [Farxiga] 10 mg tablet 10 mg PO DAILY Qty: 30 11RF sertraline 50 mg tablet 50 mg PO QDAY pramipexole 0.25 MG tablet 0.25 mg PO QHS Patient Comments: restless legs albuterol sulfate 90 mcg/actuation HFA aerosol inhaler 2 puff INHALATION Q4H PRN PRN (Reason: sob & or wheezing) Patient Comments: INHALE 2 PUFFS BY MOUTH EVERY 4 HOURS NEEDED FOR SHORTNESS OF BREATH AND WHEEZING Eliquis 5 mg tablet 5 mg PO Q12H Patient Comments: [NO ORIGINAL SIG] furosemide [Lasix] 40 mg tablet 40 mg PO DAILY 30 Days Qty: 30 0RF atorvastatin 40 mg tablet 40 mg PO DAILY amiodarone 200 mg tablet 200 mg PO QDAY Qty: 90 3RF levothyroxine 25 mcg tablet 25 mcg PO QDAY Qty: 90 3RF Primary Care Provider: Roberto Carlos Fernandes Referrals: Roberto Carlos Fernandes MD [Primary Care Provider] - Print Language: Uzbek Disposition Disposition: Acute Care Hospital [facility]
--- NOTE | 2024-12-26 12:51 | HP.PCM.HOS_ITS ---
[facility] - General General Date of Service: 12/26/24 Chief Complaint: Short-lived chest pressure localized along with dizziness, vertigo. HPI Narrative ALEM SHEEHAN, is a 74 M came to ED with chest pressure, retrosternal/left-sided localized lasted for about 5-10 minutes along with dizziness and other symptoms. Denies any significant change in the shortness of breath. He also felt that he could not understand others people speech, vertigo acute on chronic, mild headache. He states he has chronic vertigo but this time he did not get it resolved after laying down. His chest pressure resolved before coming to ED. He has multiple cardiac history including open heart surgery twice with history of thoracic aortic aneurysm repair, status post aortic valve repair twice, bypass surgery and defibrillator In ED, BP was 165/101, heart rate 79/min, RR 20/min. No hypoxia. Patient is legally blind on left eye. Twelve-lead EKG reviewed and compared with the previous October 2024. It shows a paced rhythm at 78 bpm. QTc prolonged because of pacemaker/defibrillator.First troponin normal. Stroke alert was called with CTA head and neck showed mild calcific origin of left and right ICA less than 50% stenosis with no LVO. CTA chest showed no PE. Teleneurologist recommended admission for MRI. [facility] Medical History Biventricular implantable cardioverter-defibrillator (ICD) in situ Nonischemic cardiomyopathy Cardiac LV ejection fraction <20% Bradycardia History of cardioversion (07/2024) Cardiomyopathy Fatty liver CAD (coronary artery disease) Atrial fibrillation status post cardioversion Syncope Benign paroxysmal positional vertigo Obesity (BMI 30.0-34.9) Chronic systolic CHF (congestive heart failure) Chronic bundle branch block Stenosis of lumbosacral spine Lumbar disc disease First degree AV block Asthma Blindness of left eye Rheumatoid arthritis History of pulmonary embolism History of kidney stones Hiatal hernia History of diverticulitis Limited mobility Depression Anxiety Restless legs Back pain Vision loss of left eye Kidney stones CPAP (continuous positive airway pressure) dependence Pulmonary embolism H/O bicuspid aortic valve COPD (chronic obstructive pulmonary disease) Diabetes mellitus Sleep apnea Hypertension Home Medications Medication Instructions Recorded Last Taken Type pramipexole 0.25 mg tablet 0.25 mg PO QHS restless leg s 11/25/14 12/25/24 History albuterol sulfate 90 mcg/actuation 2 puff inhalation Q 4H PRN PRN sob 02/27/21 12/15/21 07:30 History aerosol inhaler & or wheezing apixaban 5 mg tablet (Eliquis) 5 mg PO Q12H blood thin ner 06/28/24 12/26/24 History fluticasone furoate 200 1 inh inhalation QDAY breath ing 07/19/24 Unknown History mcg-vilanterol 25 mcg/dose inhalation powder (Breo Ellipta) fluticasone propionate 50 2 spray intranasal QDAY mauro rgies 07/26/24 Unknown History mcg/actuation nasal spray,suspension (Flonase Allergy Relief) dapagliflozin propanediol 10 mg 10 mg PO DAILY diabete s #30 tabs 09/04/24 12/26/24 Rx tablet (Farxiga) flaxseed oil 13.9 gram/15 mL oral 13.9 g PO DAILY PRN constipation 09/04/24 Unknown History liquid losartan 25 mg tablet 25 mg PO DAILY blood pressur e #30 09/04/24 12/26/24 Rx tabs furosemide 40 mg tablet (Lasix) 40 mg PO DAILY diureti c 30 days 09/19/24 12/26/24 Rx #30 tabs amiodarone 200 mg tablet 200 mg PO QDAY heart rate #9 0 tabs 10/14/24 12/26/24 Rx levothyroxine 25 mcg tablet 25 mcg PO QDAY thyroid #90 tabs 10/28/24 12/26/24 Rx atorvastatin 40 mg tablet 40 mg PO DAILY 11/26/2412/10 History sertraline 50 mg tablet 50 mg PO QDAY 11/28/2412/25 History Allergy/AdvReac Type Severity Reaction Status Date / Time hydrochlorothiazide (hctz) Allergy Intermediate hypercalcem Verified 12/26/24 10:28 ia erythromycin base AdvReac Diarrhea Verified 12/26/24 10:28 oxycodone (From Percocet) AdvReac Other Verified 12/26/24 10:28 tramadol AdvReac Other Verified 12/26/24 10:28 Family History Mother Asthma Father CVA (cerebral vascular accident) Pulmonary embolism Brother Diabetes Hypertension Grandmother CVA (cerebral vascular accident) Heart disease Grandfather Heart disease Surgical History S/P AVR (aortic valve replacement) (03/20/24) History of coronary artery bypass graft S/P aortic valve repair Hx of cystoscopy History of thoracic aortic aneurysm repair H/O shoulder replacement Status post reverse total shoulder replacement Social History household members: spouse housing: house Smoking Status: Never smoker alcohol intake: never substance use type: does not use caffeine: Yes Type: coffee Number of servings: 1 ROS ROS Narrative Constitutional: Reports fatigue and weakness. No fever. HEENT: Reports systems reviewed and no addt'l complaints, except as documented Respiratory/Chest: No acute shortness of breath or respiratory distress or wheezing. CVS: As described in HPI Gastrointestinal: Denies coffee ground emesis, hematemesis or vomiting Genitourinary: Denies burning urination or new urinary tract symptoms Musculoskeletal: Denies acute joint pain or limited range of motion. No acute injury Neurologic: Denies seizure-like symptoms. Neurological symptoms as described in HPI skin: No ulcer. No rash Endocrinology: Reports systems reviewed and no addt'l complaints, except as documented Hematologic/Lymphatic: Reports systems reviewed and no addt'l complaints, except as documented Rest 14 ROS are negative except as mentioned in HPI Vital Signs Vital Signs Vital Signs: 12/26/24 10:17 12/26/24 10:23 12/26/24 10:27 Temperature 98.1 F Temperature Source Oral Pulse Rate 79 Respiratory Rate 20 H Respiratory Effort Normal Non-Labored Blood Pressure 165/101 H Blood Pressure Mean 122 Pulse Ox 96 96 Oxygen Delivery Method Room Air Room Air 12/26/24 10:34 12/26/24 10:55 12/26/24 10:56 Temperature Temperature Source Pulse Rate 73 Respiratory Rate 16 Respiratory Effort Blood Pressure 176/94 H Blood Pressure Mean 121 Pulse Ox 96 96 95 Oxygen Delivery Method Room Air Room Air Room Air 12/26/24 11:02 12/26/24 11:15 12/26/24 11:26 Temperature Temperature Source Pulse Rate 71 97 70 Respiratory Rate 14 17 18 Respiratory Effort Blood Pressure 165/101 H 195/86 H 188/95 H Blood Pressure Mean 122 122 126 Pulse Ox 96 96 96 Oxygen Delivery Method Room Air Room Air Room Air 12/26/24 11:30 12/26/24 12:00 12/26/24 12:48 Temperature 97.8 F Temperature Source Pulse Rate 69 65 65 Respiratory Rate 18 15 15 Respiratory Effort Blood Pressure 166/83 H 173/87 H 173/87 H Blood Pressure Mean 110 115 115 Pulse Ox 96 95 95 Oxygen Delivery Method Room Air Room Air Weight Weight: 240 lb 4.862 oz Body Mass Index (BMI) 31.6 Physical Exam Narrative General: Alert, Oriented x3, Cooperative. Looks fatigued. HEENT: Atraumatic, PERRLA, EOMI, Normocephalic. Left eye blind. Oral: No Gingival or Mucosal Lesions/ Ulcerations Neck: Supple, No JVD, Negative Carotid Bruits Chest wall/Lungs: Air entry diminished in bilateral lung bases. No crepitation/rhonchi Cardiovascular: Open-heart surgical scar, left subclavicular AICD. V paced rhythm. Bioprosthetic valve murmur sound/click. Abdomen: Bowel Sounds Present, Soft, Non Tender, Non-Distended : No dysuria. No renal angle tenderness. No suprapubic tenderness. Extremities: No edema, Capillary Refill Less than 3 Seconds Skin: No rashes, No breakdown Musculoskeletal: No Tenderness to Palpation of Joints or Extremities. Degenerative arthritis of knee joints. Neurological: Cranial nerves II-XII grossly intact, DTR 2+/4. No acute focal neurological deficit. Psych/Mental Status: Flat affect Results Lab / Micro Data 12/26/24 10:24 12/26/24 10:24 Labs: Laboratory Results - last 24 hr 12/26/24 10:24: WBC 6.7, RBC 6.03, Hgb 16.2, Hct 51.2, MCV 84.9, MCH 26.9 L, M CHC 31.6 L, RDW Std Deviation 49.1 H, RDW Coeff of Cristal 17.2 H, Plt Count 153, MPV 10.1, Immature Gran % (Auto) 0.900, Neut % (Auto) 70.2 H, Lymph % (Auto) 14.0 L, Nicollet % (Auto) 9.2, Eos % (Auto) 4.8, Baso % (Auto) 0.9, Absolute Neuts (auto) 4.7, Absolute Lymphs (auto) 0.94, Nucleated RBC % 0, PT 14.3, INR 1.1, APTT 25.5, Sodium 141, Potassium 4.5, Chloride 108, Carbon Dioxide 22.2, Anion Gap 12, BUN 21 H, Creatinine 1.34 H, Est GFR (MDRD) Non-Af 56 L, BUN/Creatinine Ratio 15.4, Glucose 175 H, Calcium 10.0, Troponin T High Sens 21, NT pro BNP II 718 12/26/24 11:09: POC Glucose 175 H Imaging Radiology Impression Chest X-Ray 12/26/24 10:30 IMPRESSION: No evidence of acute cardiopulmonary pathology. Other findings as noted. Reading Location: [place] [address] 12/26/24 10:56 IMPRESSION: 1. Generalized brain atrophy. 2. Small vessel ischemic/degenerative changes. 3. No acute intracranial hemorrhage, midline shift or mass effect. If symptoms persist, further evaluation with MRI is recommended. 4. No significant change from the prior exam. Red Alert: No acute intracranial hemorrhage. The critical information above was relayed directly by me by telephone to Eric Hernadez on 12/26/2024 at 11:11 am with readback verification. Reading Location: [facility] Chest CTA 12/26/24 11:00 IMPRESSION: No evidence of pulmonary embolism. Mild bibasilar atelectasis. Tiny nonobstructive calculi in the upper pole of the right and left kidneys. Reading Location: [facility] Head/Neck CTA 12/26/24 11:00 IMPRESSION: Mild calcific origin of the right and left internal carotid arteries causing less than 50% narrowing. No large vessel occlusion. Reading Location: [facility] Assessment & Plan Assessment/Plan (1) Chest pain: (2) Dizziness: PLAN: Plan This is a 74-year-old gentleman being admitted for atypical chest pain associated with dizziness vertigo. He also had problems understanding the speech. 1. Atypical chest pain with history of CAD status post CABG: Patient is being admitted in PCU. Chest x-ray reviewed does not show acute cardiopulmonary abnormality. Cardiac symptom does not seem typical of unstable angina/non- STEMI. JT risk score is 3, age, CAD risk factors, known CAD stenosis. Twelve-lead EKG shows atrial sensed ventricular paced rhythm with no change from previous EKG. First 2 troponins are normal With no significant delta change. 4th HS- troponin pending. Continue home cardiac medications. 2. Dizziness, vertigo, mild receptive aphasia: Suspicious of a stroke. Stroke alert was called. MRI brain ordered. The the patient has AICD to see compatibility. CT head negative for LVO. 2D echo ordered. Patient was seen by [facility] teleneurologist. Teleneurologist consult ordered. Patient on Eliquis 5 mg twice daily continue. PT, OT, speech therapy/swallow evaluation and management, nursing NIH stroke scale, BP and glucose monitoring and control as per stroke protocol. TSH, A1c fasting lipid profile tomorrow AM. MRI brain and 2D echo with bubble contrast study ordered 3. 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 The global longitudinal strain = -9.2% (abnormal). Moderately severe segmental systolic dysfunction (see wall motion). The left ventricular ejection fraction is 30 %. Stage 1 diastolic dysfunction. The left atrium is moderately enlarged. 4. Type II DM: Glucose 175. Accu-Chek before meals and at bedtime with Humalog sliding scale coverage and hypoglycemia protocol. A1c tomorrow a.m. 5. Chronic PE: On Eliquis continued 6. Chronic asthma, controlled. Continue home inhalers 7. CKD stage IIIa: Baseline creatinine has between 1.4-1.55. Currently 1.34. Living will/advanced directive/end of life care: Patient does have living will or advanced directive. After discussion of benefits/risks procedures involved with full code, DNR CC arrest and DNR CC, the patient and his opted for DNR CC arrest with no intubation Patient doesn't want artificial life support including intubation, tube feed, ventilator and/chest compression, central venous catheter, vasopressor and DC shock if needed Total time spent in [id number] encounter in discussion of advanced directive 17 minutes. Laboratory Results 12/26/24 10:24: WBC 6.7, RBC 6.03, Hgb 16.2, Hct 51.2, MCV 84.9, MCH 26.9 L, M CHC 31.6 L, RDW Std Deviation 49.1 H, RDW Coeff of Cristal 17.2 H, Plt Count 153, MPV 10.1, Immature Gran % (Auto) 0.900, Neut % (Auto) 70.2 H, Lymph % (Auto) 14.0 L, Nicollet % (Auto) 9.2, Eos % (Auto) 4.8, Baso % (Auto) 0.9, Absolute Neuts (auto) 4.7, Absolute Lymphs (auto) 0.94, Nucleated RBC % 0, PT 14.3, INR 1.1, APTT 25.5, Sodium 141, Potassium 4.5, Chloride 108, Carbon Dioxide 22.2, Anion Gap 12, BUN 21 H, Creatinine 1.34 H, Est GFR (MDRD) Non-Af 56 L, BUN/Creatinine Ratio 15.4, Glucose 175 H, Calcium 10.0, Troponin T High Sens 21, NT pro BNP II 718 12/26/24 11:09: POC Glucose 175 H 12/26/24 12:25: Magnesium 2.3 H, Troponin T Hi Sens 2 Hr 20 Clinical Impression(s) from Imaging Studies Chest X-Ray 12/26/24 10:30 IMPRESSION: No evidence of acute cardiopulmonary pathology. Other findings as noted. Reading Location: [place] [address] 12/26/24 10:56 IMPRESSION: 1. Generalized brain atrophy. 2. Small vessel ischemic/degenerative changes. 3. No acute intracranial hemorrhage, midline shift or mass effect. If symptoms persist, further evaluation with MRI is recommended. 4. No significant change from the prior exam. Red Alert: No acute intracranial hemorrhage. The critical information above was relayed directly by me by telephone to Eric Hernadez on 12/26/2024 at 11:11 am with readback verification. Reading Location: [facility] Chest CTA 12/26/24 11:00 IMPRESSION: No evidence of pulmonary embolism. Mild bibasilar atelectasis. Tiny nonobstructive calculi in the upper pole of the right and left kidneys. [facility] Head/Neck CTA 12/26/24 11:00 IMPRESSION: Mild calcific origin of the right and left internal carotid arteries causing less than 50% narrowing. No large vessel occlusion. [facility] Charges/Coding Visit Charges Inpatient E&M: 44173 Init Hosp L3 Procedures Hospitalists Procedures: 16196 Advncd Care Plan 30 Min
[2024-12-26 13:34] LABS: Troponin T High Sens 2 HR 20 ng/L (<=22)
[2024-12-26 13:47] LABS: Magnesium 2.3 mg/dL (1.5-2.2)
--- NOTE | 2024-12-26 14:19 | ECHOD_ITS ---
Reason For Study Reason For Study: CVA/TIA Procedure This was a 2D Doppler, Color Flow transthoracic echocardiogram. Exam performed portable in patient room. Left Ventricle Normal LV size. Left ventricular systolic function is lower limits of normal. The estimated ejection fraction is 53 %. Stage 1 diastolic dysfunction. There is mild global hypokinesis of the left ventricle. Right Ventricle Normal RV size. Normal systolic function. Atria Normal left atrium. Normal right atrium. Tricuspid Valve Normal tricuspid valve. Mild (1+) tricuspid valve insufficiency. Pulmonary artery systolic pressure is 30 mmHg. Aortic Valve Peak aortic valve gradient 22 mmHg. Mean aortic valve gradient 12 mmHg. Bioprosthetic aortic valve. Great Vessels Normal aortic root. Pericardium/Pleural No pericardial effusion. MMode/2D Measurements & Calculations LVIDd: 4.4 cm IVSd: 0.93 cm LVOT diam: 2.0 cm LVIDs: 3.2 cm LVPWd: 1.6 cm LVOT area: 3.1 cm2 RVDd: 3.9 cm FS: 26.6 % Ao root diam: 2.9 cm LAV(MOD-bp): 38.3 ml LVAd ap4: 36.3 cm2 LAV(MOD-bp) Indexed: 16.5 ml/m2 LVLd ap4: 9.4 cm LAV(MOD-sp2): 45.7 ml EDV(MOD-sp4): 114.8 ml LAV(MOD-sp4): 31.5 ml EDV(sp4-el): 118.5 ml LVAs ap4: 23.2 cm2 LVLs ap4: 8.3 cm ESV(MOD-sp4): 53.5 ml ESV(sp4-el): 54.9 ml EF(MOD-sp4): 53.4 % EF(sp4-el): 53.6 % SV(MOD-sp4): 61.3 ml SV(MOD-sp2): 44.7 ml LVAd ap2: 32.2 cm2 LVLd ap2: 9.3 cm SI(MOD-sp4): 26.3 ml/m2 SI(MOD-sp2): 19.2 ml/m2 EDV(MOD-sp2): 96.2 ml EDV(sp2-el): 94.8 ml LVAs ap2: 22.4 cm2 LVLs ap2: 8.5 cm ESV(MOD-sp2): 51.6 ml ESV(sp2-el): 50.2 ml EF(MOD-sp2): 46.4 % SV(sp4-el): 63.6 ml LA A4 area: 14.1 cm2 LA dimension(2D): 4.2 cm RA A4 area: 19.7 cm2 Doppler Measurements & Calculations MV E max mitch: 81.9 cm/sec Lat Peak E' Mitch: 10.9 cm/sec Med Peak E' Mitch: 7.5 cm/sec MV A max mitch: 106.1 cm/sec E/E' lat: 7.5 E/E' med: 10.9 MV E/A: 0.77 Ao V2 max: 232.2 cm/sec LV V1 max: 128.3 cm/sec SV(LVOT): 78.9 ml Ao max P.6 mmHg LV V1 max P.6 mmHg Ao V2 mean: 164.4 cm/sec LV V1 mean P.8 mmHg Ao mean P.1 mmHg LV V1 mean: 92.8 cm/sec Ao V2 VTI: 41.1 cm LV V1 VTI: 25.6 cm AV (velocity ratio): 0.62 HOLLIE(I,D): 1.9 cm2 HOLLIE(V,D): 1.7 cm2 PA V2 max: 136.0 cm/sec TR max mitch: 255.7 cm/sec TR max P.1 mmHg ECHO/Echo Complete Interpretation Summary Normal LV size. Left ventricular systolic function is lower limits of normal. The estimated ejection fraction is 53 %. Stage 1 diastolic dysfunction. Mean aortic valve gradient 12 mmHg. Bioprosthetic aortic valve. Ordering Physician: Shlomo Guido Referring Physician: Derrek Fernandes Performed By: Claudia Mcdaniel RDCS and Student
[2024-12-26 15:21] LABS: Troponin T High Sens 4 HR 21 ng/L (<=22)
[2024-12-26] MEDS: 0.9% Normal Saline (1000mL) 1,000 ML 75 ML IV (16:40)
--- NOTE | 2024-12-26 17:27 | CM.ED ---
Social Work Reason for visit: Stroke Alert SW met with patient while patient was out of room with testing. was appreciative of conversation and explained to SW patients medical history and some of the problems they have had at other hospitals. was complimentary of [facility] and states she always has the squad bring patient to this hospital as she feels he gets the best care. Supportive listening provided. No further needs identified. Melody Mccabe, NURSE SANE, SPEECH PATHOLOGY SUPERVISOR
[2024-12-26] MEDS: Albuterol 2.5 MG/3 ML VIAL.NEB. INHALATION (20:17)
[2024-12-26] MEDS: Budesonide Respules 0.5 MG/2 ML AMPUL.NEB. INHALATION (20:17)
[2024-12-26] MEDS: APIXABAN 5 MG TABLET PO (21:53)
[2024-12-26] MEDS: Senna/Docusate Sodium 1 Tablet 2 TABLET PO (21:54)
[2024-12-27] VITALS (12 sets, daily range): BP systolic 139–167; BP diastolic 72–86; PULSE 60–91; RESP 16–20; TEMP 36.2–36.8; O2SAT 93–98; BMI 30.2
[2024-12-27 06:51] LABS: Hematocrit 46.9 % (40-54); Hemoglobin 14.8 g/dL (13.0-16.5); Immature Granulocytes Count 0.040 X10^3/uL (0.0-0.0); Mean Corp Hgb Conc 31.6 g/dL (32-36); Mean Corpuscular Volume 87.0 fL (80-94); Mean Platelet Vol. 10.0 fl (6.2-12.0); NRBC Flagged by Analyzer 0 % (0-5); Platelet Count 143 K/mm3 (150-450); RBC Distribution Width CV 16.4 % (11.6-14.6); RBC Distribution Width SD 51.0 fl (35.1-43.9); Red Blood Count 5.39 M/mm3 (4.6-6.2); White Blood Count 6.6 K/mm3 (4.4-11.0)
[2024-12-27] MEDS: Budesonide Respules 0.5 MG/2 ML AMPUL.NEB. INHALATION (07:05)
[2024-12-27] MEDS: Albuterol 2.5 MG/3 ML VIAL.NEB. INHALATION ×2 (07:05→13:01)
[2024-12-27 07:45] LABS: Cholesterol 134 mg/dL (<=200); Low Density Lipoprotein Calc. 69 mg/dL; Triglycerides 137 mg/dL; Very Low Density Lipoprotein 27 mg/dL (5-40); cholesterol:hdl ratio screen 3.56
[2024-12-27 07:46] LABS: Anion Gap 12 (5-15); BUN 20 mg/dL (4-19); BUN/Creat Ratio 13.5 RATIO (10-20); Calcium,Total 9.5 mg/dL (7.6-11.0); Carbon Dioxide 21.9 mmol/L (21.0-32.0); Chloride 109 mmol/L (98-108); Estimated Creatinine Clearance 58.62 ml/min (50-250); Glucose 124 mg/dL (70-99); Potassium 4.3 mmol/L (3.3-5.1)
[2024-12-27] MEDS: Fluticasone 0.05% 1 SPRAY NASAL.SRY 2 SPRAY NASAL (09:31)
[2024-12-27] MEDS: APIXABAN 5 MG TABLET PO (09:31)
[2024-12-27] MEDS: Senna/Docusate Sodium 1 Tablet 2 TABLET PO (09:31)
--- NOTE | 2024-12-27 10:15 | MRI_ITS ---
PROCEDURE: BRAIN WITHOUT CONTRAST 12/27/2024 REASON FOR EXAM: STROKE SUSPECTED TECHNIQUE: BRAIN WITHOUT CONTRAST Multiplanar and multisequence images were obtained. COMPARISON: CT head without contrast, 12/26/2024. MRI brain without contrast, 08/08/2023. FINDINGS: There is mild diffuse cerebral atrophy. There is a chronic lacunar infarction in the periventricular white matter of the right frontal lobe. There are punctate foci of abnormal periventricular and subcortical white matter signal in both cerebral hemispheres. There is a normal sulcal pattern and gyral configuration. There is no evidence of acute intracranial hemorrhage or infarction. The serrano-white differentiation is well preserved. There is no evidence of restricted diffusion. The ventricles and basilar cisterns are normal. There are normal flow voids demonstrated in the recognized intracranial vessels. The cerebellum and brainstem are unremarkable. The cerebellar pontine angles are normal. The craniovertebral junction is normal. The sella and suprasellar regions are normal. There is left phthisis bulbi. The right orbit and retro-orbital regions are unremarkable. The nasal septum is deviated to the left. There is mild mucosal thickening of the frontal sinuses and ethmoidal air cells bilaterally. The paranasal sinuses are otherwise clear. There are multiple fluid-filled mastoid air cells on the right. The left mastoid air cells are clear. There is normal bone marrow signal in the skull base and calvarium. MRI/Brain without Contrast IMPRESSION: 1. No evidence of acute intracranial pathology. 2. Cerebral atrophy. 3. Chronic lacunar infarction in the periventricular white matter of the right frontal lobe. 4. Left phthisis bulbi. Reading Location: [place] [id number]
--- NOTE | 2024-12-27 10:30 | CON.PCM.NE_ITS ---
Assessment and Plan: Neuro Assessment/Plan ALEM SHEEHAN is a 74 M with a past medical history of CAD, afib, BPPV, being evaluated by Teleneurology for headache, weakness, and perisistent dizziness. The dizziness has two components - a persistent lightheadedness and a positional vertiginous component. His exam is benign and cannot elicit clear nystagmus. History concerning also for these symptoms happening more frequently and with intensity since he started taking the SSRI. At this time, symptoms not consistent with stroke and the imaging supports this. Would look for other causes of dizziness. Plan: - orthostatic vitals - recommend weaning off the sertraline with 50mg every other day for 2 weeks then stop. - recommend UA I personally attended this patient and spent a total time of 45 minutes evaluating this patient including clinical assessment, review of chart, medical history imaging, and determining appropriate treatment and workup. HPI Consult Data Date of Consult: 12/27/24 HPI Narrative HPI Narrative: ALEM SHEEHAN, is a 74 M came to ED with chest pressure, retrosternal/left-sided localized lasted for about 5-10 minutes along with dizziness and other symptoms. Denies any significant change in the shortness of breath. He also felt that he could not understand others people speech, vertigo acute on chronic, mild headache. He states he has chronic vertigo but this time he did not get it resolved after laying down. His chest pressure resolved before coming to ED. He has multiple cardiac history including open heart surgery twice with history of thoracic aortic aneurysm repair, status post aortic valve repair twice, bypass surgery and defibrillator From Telestroke note: Patient was sitting and looking at phone and suddenly had Lheadache, felt lightheaded and nauseated. Room was spinning when this first started but no longer spinning right now. Headache started right after symptoms started. Does not normally get headaches. Last time he took blood thinner was this AM. Never had a stroke before, currently takes eliquis for ho PE. Nothing like this happened before. No weakness, numbness, has baseline L eye blindness. Has a history of vertigo and normally will lie on the floor to let it pass and tried to lay on the floor but it did not pass Started sertraline 50mg daily at night, had pacemaker placement in October. Interval History MIMS is better than yesterday but still nauseated. Pt states he could not understand what was being said to him. Patient started a new medication recently and since then he has been having difficulty sleeping, been more nauseated and dizzy. On the sertraline for anxiety and this was the new medication and never been on it before. Yesterday's event was more intense than usual. Has had more tremors while on the sertraline lately. No other medication changes or stoppage of medications. Neurologic History - General: Laying comfortably in bed; in no acute distress. - HENT: Normal oropharynx and mucosa. Normal external appearance of ears and nose. Exophthalmos. - Neck: Supple, no pain or tenderness - CV: No peripheral edema. - Pulmonary: Normal respiratory effort. - Ext: No cyanosis, edema, or deformity - Skin: No rash. Normal palpation of skin. - Musculoskeletal: full range of motion; no joint tenderness. Normal digits and nails by inspection. No clubbing. - NEURO: - Mental Status: The patient was alert and oriented to time, place, and person. Normal recent/remote memory, concentration, and general fund of knowledge. - Language: speech is clear. Naming, repetition, fluency, and comprehension intact. - Cranial Nerves: R pupil 4mm and brisk, L pupil is 5mm and non reactive at baseline. limited ROM on the L eye which is his baseline, R eye EOMI, visual devi full, no facial asymmetry, facial sensation intact, hearing intact, tongue midline, no evidence of atrophy or fibrillations. - Motor: normal bulk, tone, and strength throughout. No pronator drift or satelliting. Upper and lower extremities equal bilaterally. - Detailed strength exam as performed by the nurse/TRAVIS and witnessed by the physician: l R L SA 5 5 EE EF 5 5 WE WF Director Food Safety 5 5 HF 5 5 KE KF 5 5 DF 5 5 PF - Detailed reflex exam as performed by the nurse/TRAVIS and witnessed by the physician: l R L Biceps 2 2 Patellar 1 2 Ankle Babinski mute mute - Tone: is normal and bulk is normal - Sensation- Intact to light touch bilaterally - Coordination: No dysmetria on [id number], finger follow finger or [id number]. - Gait- Gait initiation was normal. Narrow base with good heel strike and stride length was observed during ambulation. Turns were in stride. Patient was able to walk normally in tandem. Romberg was normal. [facility] Medical History Biventricular implantable cardioverter-defibrillator (ICD) in situ Nonischemic cardiomyopathy Cardiac LV ejection fraction <20% Bradycardia History of cardioversion (07/2024) Cardiomyopathy Fatty liver CAD (coronary artery disease) Atrial fibrillation status post cardioversion Syncope Benign paroxysmal positional vertigo Obesity (BMI 30.0-34.9) Chronic systolic CHF (congestive heart failure) Chronic bundle branch block Stenosis of lumbosacral spine Lumbar disc disease First degree AV block Asthma Blindness of left eye Rheumatoid arthritis History of pulmonary embolism History of kidney stones Hiatal hernia History of diverticulitis Limited mobility Depression Anxiety Restless legs Back pain Vision loss of left eye Kidney stones CPAP (continuous positive airway pressure) dependence Pulmonary embolism H/O bicuspid aortic valve COPD (chronic obstructive pulmonary disease) Diabetes mellitus Sleep apnea Hypertension Home Medications Medication Instructions Recorded Last Taken Type pramipexole 0.25 mg tablet 0.25 mg PO QHS restless leg s 11/25/14 12/25/24 History albuterol sulfate 90 mcg/actuation 2 puff inhalation Q 4H PRN PRN sob 02/27/21 12/15/21 07:30 History aerosol inhaler & or wheezing apixaban 5 mg tablet (Eliquis) 5 mg PO Q12H blood thin ner 06/28/24 12/26/24 History fluticasone furoate 200 1 inh inhalation QDAY breath ing 07/19/24 Unknown History mcg-vilanterol 25 mcg/dose inhalation powder (Breo Ellipta) fluticasone propionate 50 2 spray intranasal QDAY mauro rgies 07/26/24 Unknown History mcg/actuation nasal spray,suspension (Flonase Allergy Relief) dapagliflozin propanediol 10 mg 10 mg PO DAILY diabete s #30 tabs 09/04/24 12/26/24 Rx tablet (Farxiga) flaxseed oil 13.9 gram/15 mL oral 13.9 g PO DAILY PRN constipation 09/04/24 Unknown History liquid losartan 25 mg tablet 25 mg PO DAILY blood pressur e #30 09/04/24 12/26/24 Rx tabs furosemide 40 mg tablet (Lasix) 40 mg PO DAILY diureti c 30 days 09/19/24 12/26/24 Rx #30 tabs amiodarone 200 mg tablet 200 mg PO QDAY heart rate #9 0 tabs 10/14/24 12/26/24 Rx levothyroxine 25 mcg tablet 25 mcg PO QDAY thyroid #90 tabs 10/28/24 12/26/24 Rx atorvastatin 40 mg tablet 40 mg PO DAILY 11/26/2412/10 History sertraline 50 mg tablet 50 mg PO QDAY 11/28/2412/25 History Allergy/AdvReac Type Severity Reaction Status Date / Time hydrochlorothiazide (hctz) Allergy Intermediate hypercalcem Verified 12/26/24 10:28 ia erythromycin base AdvReac Diarrhea Verified 12/26/24 10:28 oxycodone (From Percocet) AdvReac Other Verified 12/26/24 10:28 tramadol AdvReac Other Verified 12/26/24 10:28 Family History Mother Asthma Father CVA (cerebral vascular accident) Pulmonary embolism Brother Diabetes Hypertension Grandmother CVA (cerebral vascular accident) Heart disease Grandfather Heart disease Surgical History S/P AVR (aortic valve replacement) (03/20/24) History of coronary artery bypass graft S/P aortic valve repair Hx of cystoscopy History of thoracic aortic aneurysm repair H/O shoulder replacement Status post reverse total shoulder replacement Social History household members: spouse housing: house Smoking Status: Smoker, status unknown alcohol intake: never substance use type: does not use caffeine: Yes Type: coffee Number of servings: 1 Vital Signs Vital Signs Vital Signs: 12/26/24 10:34 12/26/24 10:55 12/26/24 10:56 Temperature Temperature Source Pulse Rate 73 Respiratory Rate 16 Respiratory Effort Respiratory Depth Respiratory Pattern Blood Pressure 176/94 H Blood Pressure Mean 121 Blood Pressure Source Blood Pressure Position Blood Pressure Location Pulse Ox 96 96 95 Oxygen Delivery Method Room Air Room Air Room Air Oxygen Flow Rate (L/min) 12/26/24 11:02 12/26/24 11:15 12/26/24 11:26 Temperature Temperature Source Pulse Rate 71 97 70 Respiratory Rate 14 17 18 Respiratory Effort Respiratory Depth Respiratory Pattern Blood Pressure 165/101 H 195/86 H 188/95 H Blood Pressure Mean 122 122 126 Blood Pressure Source Blood Pressure Position Blood Pressure Location Pulse Ox 96 96 96 Oxygen Delivery Method Room Air Room Air Room Air Oxygen Flow Rate (L/min) 12/26/24 11:30 12/26/24 12:00 12/26/24 12:48 Temperature 97.8 F Temperature Source Pulse Rate 69 65 65 Respiratory Rate 18 15 15 Respiratory Effort Respiratory Depth Respiratory Pattern Blood Pressure 166/83 H 173/87 H 173/87 H Blood Pressure Mean 110 115 115 Blood Pressure Source Blood Pressure Position Blood Pressure Location Pulse Ox 96 95 95 Oxygen Delivery Method Room Air Room Air Oxygen Flow Rate (L/min) 12/26/24 13:00 12/26/24 13:49 12/26/24 15:22 Temperature 96.9 F L Temperature Source Temporal Pulse Rate 67 65 65 Respiratory Rate 17 15 16 Respiratory Effort Respiratory Depth Respiratory Pattern Blood Pressure 168/82 H 163/88 H 156/80 H Blood Pressure Mean 110 113 105 Blood Pressure Source Monitor Blood Pressure Position Semi-Fowlers Blood Pressure Location Left Arm Pulse Ox 97 96 95 Oxygen Delivery Method Room Air Room Air Oxygen Flow Rate (L/min) 12/26/24 15:23 12/26/24 15:50 12/26/24 19:15 Temperature 97 F L 98.0 F Temperature Source Temporal Temporal Pulse Rate 65 64 Respiratory Rate 16 18 Respiratory Effort Normal Non-Labored Respiratory Depth Normal Respiratory Pattern Normal Blood Pressure 156/78 H 152/87 H Blood Pressure Mean 104 108 Blood Pressure Source Monitor Monitor Blood Pressure Position Semi-Fowlers Semi-Fowlers Blood Pressure Location Left Arm Left Arm Pulse Ox 100 95 Oxygen Delivery Method Room Air Room Air Room Air Oxygen Flow Rate (L/min) 12/26/24 20:07 12/26/24 20:19 12/26/24 20:22 Temperature Temperature Source Pulse Rate 64 Respiratory Rate 18 Respiratory Effort Normal Non-Labored Respiratory Depth Normal Respiratory Pattern Normal Normal Blood Pressure Blood Pressure Mean Blood Pressure Source Blood Pressure Position Blood Pressure Location Pulse Ox 95 Oxygen Delivery Method Room Air Room Air Oxygen Flow Rate (L/min) 12/26/24 20:30 12/26/24 20:40 12/26/24 23:00 Temperature Temperature Source Pulse Rate 66 Respiratory Rate 15 Respiratory Effort Respiratory Depth Respiratory Pattern Normal Blood Pressure Blood Pressure Mean Blood Pressure Source Blood Pressure Position Blood Pressure Location Pulse Ox 93 96 96 Oxygen Delivery Method Room Air Nasal Cannula Oxygen Flow Rate (L/min) 2 12/26/24 23:00 12/26/24 23:15 12/27/24 03:00 Temperature 97.5 F L Temperature Source Temporal Pulse Rate 66 Respiratory Rate 18 Respiratory Effort Respiratory Depth Respiratory Pattern Blood Pressure 131/54 H Blood Pressure Mean 79 Blood Pressure Source Monitor Blood Pressure Position Semi-Fowlers Blood Pressure Location Left Arm Pulse Ox 96 96 96 Oxygen Delivery Method CPAP Bi-pap Oxygen Flow Rate (L/min) 2 12/27/24 03:15 12/27/24 07:15 12/27/24 07:45 Temperature 97.1 F L 98.2 F Temperature Source Temporal Temporal Pulse Rate 64 66 Respiratory Rate 18 18 Respiratory Effort Respiratory Depth Respiratory Pattern Blood Pressure 152/86 H 151/73 H Blood Pressure Mean 108 99 Blood Pressure Source Monitor Blood Pressure Position Semi-Fowlers Blood Pressure Location Left Arm Pulse Ox 96 97 98 Oxygen Delivery Method Bi-pap Nasal Cannula Nasal Cannula Oxygen Flow Rate (L/min) 2 2 12/27/24 07:45 12/27/24 10:16 12/27/24 10:26 Temperature Temperature Source Pulse Rate 67 90 90 Respiratory Rate 17 16 16 Respiratory Effort Respiratory Depth Respiratory Pattern Normal Blood Pressure 167/85 H 164/79 H Blood Pressure Mean 112 107 Blood Pressure Source Monitor Monitor Blood Pressure Position Supine Supine Blood Pressure Location Right Arm Right Arm Pulse Ox 94 94 Oxygen Delivery Method Nasal Cannula Nasal Cannula Oxygen Flow Rate (L/min) 2 2 Weight Weight: 106.9 kg Body Mass Index (BMI) 30.2 EEG Results Procedure Details EEG Procedure Details: ALEM SHEEHAN is a 74 year old M with a past medical history of , who presents for evaluation of Electroencephalogram on DATE at TIME Lab / Micro Data 12/27/24 06:19 12/27/24 06:19 Labs: Laboratory Results - last 24 hr 12/26/24 10:24: WBC 6.7, RBC 6.03, Hgb 16.2, Hct 51.2, MCV 84.9, MCH 26.9 L, M CHC 31.6 L, RDW Std Deviation 49.1 H, RDW Coeff of Cristal 17.2 H, Plt Count 153, MPV 10.1, Immature Gran % (Auto) 0.900, Neut % (Auto) 70.2 H, Lymph % (Auto) 14.0 L, [place] % (Auto) 9.2, Eos % (Auto) 4.8, Baso % (Auto) 0.9, Absolute Neuts (auto) 4.7, Absolute Lymphs (auto) 0.94, Nucleated RBC % 0, PT 14.3, INR 1.1, APTT 25.5, Sodium 141, Potassium 4.5, Chloride 108, Carbon Dioxide 22.2, Anion Gap 12, BUN 21 H, Creatinine 1.34 H, Est GFR (MDRD) Non-Af 56 L, BUN/Creatinine Ratio 15.4, Glucose 175 H, Calcium 10.0, Troponin T High Sens 21, NT pro BNP II 718 12/26/24 11:09: POC Glucose 175 H 12/26/24 12:25: Magnesium 2.3 H, Troponin T Hi Sens 2 Hr 20 12/26/24 14:40: Troponin T Hi Sens 4Hr 21 12/26/24 16:49: POC Glucose 110 H 12/26/24 21:57: POC Glucose 130 H 12/27/24 06:19: WBC 6.6, RBC 5.39, Hgb 14.8, Hct 46.9, MCV 87.0, MCH 27.5, MCHC 31.6 L, RDW Std Deviation 51.0 H, RDW Coeff of Cristal 16.4 H, Plt Count 143 L, MPV 10.0, Immature Gran % (Auto) 0.600, Neut % (Auto) 69.0, Lymph % (Auto) 16.0 L, [place] % (Auto) 9.3, Eos % (Auto) 4.3, Baso % (Auto) 0.8, Absolute Neuts (auto) 4.5, Absolute Lymphs (auto) 1.05, Nucleated RBC % 0, Sodium 142, Potassium 4.3, Chloride 109 H, Carbon Dioxide 21.9, Anion Gap 12, BUN 20 H, Creatinine 1.44 H, Estim Creat Clear Calc 58.62, Est GFR (MDRD) Non-Af 51 L, BUN/Creatinine Ratio 13.5, Glucose 124 H, Hemoglobin A1c 8.8 H, Calcium 9.5, Phosphorus 3.7, Triglycerides 137, Cholesterol 134, LDL Cholesterol, Calc 69, VLDL Cholesterol 27, HDL Cholesterol 38 L, Cholesterol/HDL Ratio 3.56, TSH 1.820 12/27/24 06:38: POC Glucose 130 H Imaging Radiology Impression Chest X-Ray 12/26/24 10:30 IMPRESSION: No evidence of acute cardiopulmonary pathology. Other findings as noted. Reading Location: [place] [id number] 12/26/24 10:56 IMPRESSION: 1. Generalized brain atrophy. 2. Small vessel ischemic/degenerative changes. 3. No acute intracranial hemorrhage, midline shift or mass effect. If symptoms persist, further evaluation with MRI is recommended. 4. No significant change from the prior exam. Red Alert: No acute intracranial hemorrhage. The critical information above was relayed directly by me by telephone to Eric Hernadez on 12/26/2024 at 11:11 am with readback verification. Reading Location: [facility] Chest CTA 12/26/24 11:00 IMPRESSION: No evidence of pulmonary embolism. Mild bibasilar atelectasis. Tiny nonobstructive calculi in the upper pole of the right and left kidneys. Reading Location: [facility] Head/Neck CTA 12/26/24 11:00 IMPRESSION: Mild calcific origin of the right and left internal carotid arteries causing less than 50% narrowing. No large vessel occlusion. Reading Location: [facility] Active Medications Active Medications Active Medications: Current Medications Generic Name Dose Route Start Last Admin Trade Name Freq PRN Reason Stop Dose Admin Acetaminophen 650 mg 12/26/24 15:10 12/26/24 21:52 Acetaminophen 325 Mg Tablet PO 650 mg Q6H PRN PRN Administration Pain 1-10 Or Fever >100.7 Albuterol Sulfate 2.5 mg 12/26/24 15:20 Albuterol 2.5 Mg/3 Ml Vial.Neb. INHALATION Q4H PRN PRN sob & or wheezing Albuterol Sulfate 2.5 mg 12/26/24 15:22 12/27/24 07:05 Albuterol 2.5 Mg/3 Ml Vial.Neb. INHALATION 2.5 mg Q6HWA.RT MINERVA Administration Amiodarone HCl 200 mg 12/27/24 10:00 12/27/24 09:31 Amiodarone 200 Mg Tablet PO 200 mg DAILY MINERVA Administration Apixaban 5 mg 12/26/24 22:00 12/27/24 09:31 Apixaban 5 Mg Tablet PO 5 mg Q12 MINERVA Administration Atorvastatin Calcium 40 mg 12/26/24 22:00 12/26/24 21:55 Atorvastatin Calcium 40 Mg Tablet PO 40 mg QHS MINERVA Administration Budesonide 0.5 mg 12/26/24 15:30 12/27/24 07:05 Budesonide Respules 0.5 Mg/2 Ml Ampul.Neb. INHALATION 0.5 mg Q12H.RT MINERVA Administration Fluticasone Propionate 2 spray 12/27/24 10:00 12/27/24 09:31 Fluticasone 0.05% 1 [place] Nasal.Sry NASAL 2 spray DAILY MINERVA Administration Glucagon 1 mg 12/26/24 15:10 Glucagon 1 Mg/Ml Syringe IM X1 PRN Hypoglycemia Protocol Hydralazine HCl 5 mg 12/26/24 15:10 Hydralazine 20 Mg/Ml Vial IV 12/27/24 15:10 Q30M PRN maintain BP parameters with HR <60 Dextrose 250 mls @ 0 mls/hr 12/26/24 15:10 Dextrose 10%-Water IV .Q0M PRN HYPOGLYCEMIA Protocol As Directed Sodium Chloride 250 mls @ 15 mls/hr 12/26/24 17:37 IV .[id number] PRN Saline Flush Sodium Chloride 250 mls @ 15 mls/hr 12/26/24 17:37 IV .[id number] PRN Additional IVPB Infusion Insulin Human Lispro 0 unit 12/26/24 16:00 12/27/24 06:40 Insulin Lispro 100 Unit/Ml Insuln.Pen SC Not Given ACHS MINERVA Protocol Labetalol HCl 10 - 20 mg 12/26/24 15:10 Labetalol 20 Mg/4 Ml Vial IV 12/27/24 15:10 Q10M PRN PRN maintain BP parameters with HR >/=60 Levothyroxine Sodium 25 mcg 12/27/24 06:00 12/27/24 06:41 Levothyroxine 25 Mcg Tablet PO 25 mcg DAILY@0600 MINERVA Administration Losartan Potassium 25 mg 12/27/24 10:00 12/27/24 09:31 Losartan Potassium 25 Mg Tablet PO 25 mg DAILY MINERVA Administration Protocol Ondansetron HCl 4 mg 12/26/24 15:10 12/26/24 19:42 Ondansetron 4 Mg/2 Ml Vial IV 4 mg Q8H PRN PRN Administration NAUSEA/VOMITING Pramipexole Dihydrochloride 0.25 mg 12/26/24 22:00 12/26/24 21:54 Pramipexole Di-Hcl 0.25 Mg Tablet PO 0.25 mg QHS MINERVA Administration Senna/Docusate Sodium 2 tablet 12/26/24 22:00 12/27/24 09:31 Senna/Docusate Sodium 1 Tablet PO 2 tablet BID MINERVA Administration Sertraline HCl 50 mg 12/26/24 22:00 12/26/24 21:53 Sertraline 50 Mg Tablet PO 50 mg QHS MINERVA Administration Sodium Chloride 10 - 40 ml 12/26/24 17:37 0.9% Saline Lock 10 Ml Syringe IV UD PRN SALINE FLUSH NIHSS NIHSS Nursing Documentation NIHSS Nursing Documentation: NIHSS: Ischemic Stroke/TIA Start: 12/26/24 15:10 Text: For PCU Patients: NIH and Neuro Check every 4 Status: Active hours, PRN and with change in RN caregiver. Freq: [id number] Protocol: Activity Type Activity Date Activity User E-sign Co-sign Detail Recorded Client Recorded Date Recorded By Document 12/27/24 07:15 [facility] 12/27/24 07:38 12/27/24 07:15 NIH Stroke Scale [NIHSS] A score of 0 is "normal" or asymptomatic . Total possible score is 42. Inpatient: RN or Physician to activate a stroke alert for onset of new stroke symptoms or with NIHSS increase >/= 3 points. Following change in neurological status, NIHSS will be performed per physician order or more frequently PRN. -1a. Level of Consciousness 0 - Alert; keenly responsive -1b. LOC Questions 0 - Answers BOTH questions correctly -1c. LOC Commands 0 - Performs BOTH tasks correctly -2. Best Gaze 0 - Normal -3. Visual 1 - Partial hemianopia -4. Facial Palsy 0 - Normal symmetrical movements -5a. Left Arm 0 - No drift; arm holds 90 ( or 45) degrees for full 10 seconds -5b. Right Arm 0 - No drift; arm holds 90 ( or 45) degrees for full 10 seconds -6a. Left Leg 0 - No drift; leg holds 30- degree position for full 5 seconds -6b. Right Leg 0 - No drift; leg holds 30- degree position for full 5 seconds -7. Limb Ataxia 0 - Absent -8. Sensory 0 - Normal; no sensory loss -9. Best Language 0 - No aphasia; normal -10. Dysarthria 0 - Normal -11. Extinction and Inattention 0 - No abnormality -Total 1 Query Text:A score of 0 is "normal" or asymptomatic. Total possible score is 42 . ED: Notify Physician for NIHSS increase by > / = 3 points. Inpatient: RN or Physician to activate a stroke alert for NIHSS increase of > / = 3 points. Coma Scale [Assess] -Eye Opening Spontaneous -Motor Obeys Commands -Verbal Oriented [Total] -Coma Scale Total 15
--- NOTE | 2024-12-27 14:31 | CASEMGMT ---
Met with patient to complete CLARK form. CLARK form and its content were verbally explained and patient's questions were answered to the best of my ability. Patient voiced understanding and signed CLARK form. Patient provided a copy of signed CLARK form and original placed in patient's chart. Patient had no further questions. Evelina Hernandez, Discharge Planning Asst
--- NOTE | 2024-12-27 14:52 | PCM.DC ---
Discharge Instructions DC O2, CPAP, BIPAP needs Home O2 Discharge instructions: No Follow Up Care Test Results: Test results from this visit will be discussed in further detail at your follow-up appointment, if applicable. Discharge Plan Admission Admit Date/Time: 12/26/24 12:58 Primary Reason for Your Visit: Dizziness/headache probably due to SSRI Attending Provider: Shlomo Guido Primary Care Provider: Roberto Carlos Fernandes Consulting Providers: Bebeto Kraft; Lilly Pearson; Meme Thompson; Rylee Ramires; Nika Youssef; Pako Busby; Joan Fox; Abdulaziz Langley; Stephen Bone; Maurisio Calvin; Rylee Azul; Pascual Hall; Angelina Mcfadden; Janae Deutsch; Nicola Daniels; Behzad Whyte; Lindsay Avila; Kaiden Blackburn; Zee Georges; Ron Walsh Instructions Additional Instructions / Restrictions: Sertraline wean off as mentioned below Discharge Orders/Prescriptions Prescriptions: Continued fluticasone furoate-vilanterol [Breo Ellipta] 200-25 mcg/dose blister with device 1 inh inhalation QDAY fluticasone propionate [Flonase Allergy Relief] 50 mcg/actuation spray,suspension 2 spray intranasal QDAY Rx Instructions: administer into each nostril flaxseed oil 13.9 gram/15 mL liquid 13.9 g PO DAILY PRN (Reason: constipation) losartan 25 mg tablet 25 mg PO DAILY Qty: 30 11RF dapagliflozin propanediol [Farxiga] 10 mg tablet 10 mg PO DAILY Qty: 30 11RF pramipexole 0.25 MG tablet 0.25 mg PO QHS Patient Comments: restless legs albuterol sulfate 90 mcg/actuation HFA aerosol inhaler 2 puff INHALATION Q4H PRN PRN (Reason: sob & or wheezing) Patient Comments: INHALE 2 PUFFS BY MOUTH EVERY 4 HOURS NEEDED FOR SHORTNESS OF BREATH AND WHEEZING Eliquis 5 mg tablet 5 mg PO Q12H Patient Comments: [NO ORIGINAL SIG] furosemide [Lasix] 40 mg tablet 40 mg PO DAILY 30 Days Qty: 30 0RF atorvastatin 40 mg tablet 40 mg PO DAILY amiodarone 200 mg tablet 200 mg PO QDAY Qty: 90 3RF levothyroxine 25 mcg tablet 25 mcg PO QDAY Qty: 90 3RF Changed sertraline 50 mg tablet 50 mg PO QODAY 14 Days Qty: 0 0RF Rx Instructions: Neurologist recommended weaning of sertraline, 50 mg every other day for 2 weeks and then stop. Stop date December 10 Referrals / Follow Up: Daniele Goodrich MD [Non-Staff -Ordering Privileges] - Within 1 Month (For vertigo/dizziness) Roberto Carlos Fernandes MD [Primary Care Provider] - Disposition Disposition (needs filled in before D/C Order can be placed): Home, Self Care
--- NOTE | 2024-12-27 14:57 | CASEMGMT ---
Social Work Per physician note, pt negative for stroke. PHQ9 depression screen not completed. [facility]
--- NOTE | 2024-12-27 14:58 | PCM.DC.SUM ---
Providers Date of Admission: 12/26/24 Date of Discharge: 12/27/24 Primary Care Physician: Dr. Roberto Carlos Fernandes MD Consultations 12/26/24 15:10 Consult: Tele-Neurology Routine Consulting Provider: [facility] Reason for Consult: Acute Ischemic Stroke/TIA EMERGENT Consult: No MD Notified: Yes Date Notified: 12/26/24 Time Notified: 15:40 Method of Notification: Answering Service Nursing Unit Staff Notify [facility] of Tele-Neurology Consult: Yes Reason For Visit: ATYPICAL CP/DIZZINESS Diagnosis Discharge Diagnosis (1) Chest pain: Status: Acute Code(s): R07.9 - Chest pain, unspecified (2) Dizziness: Status: Acute Code(s): R42 - Dizziness and giddiness Plan This is a 74-year-old gentleman being admitted for atypical chest pain associated with dizziness vertigo. He also had problems understanding the speech. 1. Atypical chest pain with history of CAD status post CABG: Patient is being admitted in PCU. Chest x-ray reviewed does not show acute cardiopulmonary abnormality. Cardiac symptom does not seem typical of unstable angina/non-STEMI. JT risk score is 3, age, CAD risk factors, known CAD stenosis. Twelve-lead EKG shows atrial sensed ventricular paced rhythm with no change from previous EKG. First 2 troponins are normal With no significant delta change. 4th HS-troponin 21. Continue home cardiac medications. 12/27 ACS ruled out. 2. Dizziness, vertigo, mild receptive aphasia: Suspicious of a stroke. Stroke alert was called. MRI brain ordered. The the patient has AICD to see compatibility. CT head negative for LVO. 2D echo ordered. Patient was seen by [facility] teleneu[facility]ist. Teleneurologist consult ordered. Patient on Eliquis 5 mg twice daily continue. PT, OT, speech therapy/swallow evaluation and management, nursing NIH stroke scale, BP and glucose monitoring and control as per stroke protocol. TSH, A1c fasting lipid profile tomorrow AM. MRI brain and 2D echo with bubble contrast study ordered 12/27: Lipid profile LDL 69, HDL 38. TSH normal. MRI was done which shows no evidence of acute intracranial pathology. Cerebral atrophy. Patient was evaluated by neurologist and she thinks patient has chronic positional vertigo. Recent dizziness and headache probably due to recent start of sertraline about 3 weeks ago. Taper started with 50 mg every other day for 2 weeks and then stop. Patient does not have dysuria/burning micturition and prior UA in October 2024 was negative. Patient was evaluated by PT OT and speech and cleared for discharge. 3. Multiple chronic cardiac conditions including CAD status post CABG, chronic A-fib status post cardioversion, chronic ischemic cardiomyopathy/chronic HFrEF EF 30%, NYHA II status post AICD/STAFF RN, bioprosthetic aortic valve replacement, ascending aortic root replacement Patient had successful resynchronization of ICD implantation with coronary sinus pacing on 10/24/[address] 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 The global longitudinal strain = -9.2% (abnormal). Moderately severe segmental systolic dysfunction (see wall motion). The left ventricular ejection fraction is 30 %. Stage 1 diastolic dysfunction. The left atrium is moderately enlarged. 4. Type II DM: Glucose 175. Accu-Chek before meals and at bedtime with Humalog sliding scale coverage and hypoglycemia protocol. A1c tomorrow a.m. 12/27: A1c 8.8%. Glucose 124. Overall shows glucose in the past not well-controlled but currently controlled. 5. Chronic PE: On Eliquis continued 6. Chronic asthma, controlled. Continue home inhalers 7. CKD stage IIIa: Baseline creatinine has between 1.4-1.55. Currently 1.34. Living will/advanced directive/end of life care: Patient does have living will or advanced directive. After discussion of benefits/risks procedures involved with full code, DNR CC arrest and DNR CC, the patient and his opted for DNR CC arrest with no intubation Patient doesn't want artificial life support including intubation, tube feed, ventilator and/chest compression, central venous catheter, vasopressor and DC shock if needed Discharge medication reconciliation done. Discharge follow-up instructions completed. Discharge process discussed with the patient and all questions were answered to patient's satisfaction. Follow with PCP in 1 to 2 weeks Total time spent, exact 35 minutes on discharge meds reconciliation, examination, coordination of care with nurses and ancillary staff, review of imaging and blood test and discussion with the patient on follow-up instructions. IMPRESSION: 1. No evidence of acute intracranial pathology. 2. Cerebral atrophy. 3. Chronic lacunar infarction in the periventricular white matter of the right frontal lobe. 4. Left phthisis bulbi. Discharged home Laboratory Results 12/26/24 10:24: WBC 6.7, RBC 6.03, Hgb 16.2, Hct 51.2, MCV 84.9, MCH 26.9 L, MCHC 31.6 L, RDW Std Deviation 49.1 H, RDW Coeff of Cristal 17.2 H, Plt Count 153, MPV 10.1, Immature Gran % (Auto) 0.900, Neut % (Auto) 70.2 H, Lymph % (Auto) 14.0 L, [place] % (Auto) 9.2, Eos % (Auto) 4.8, Baso % (Auto) 0.9, Absolute Neuts (auto) 4.7, Absolute Lymphs (auto) 0.94, Nucleated RBC % 0, PT 14.3, INR 1.1, APTT 25.5, Sodium 141, Potassium 4.5, Chloride 108, Carbon Dioxide 22.2, Anion Gap 12, BUN 21 H, Creatinine 1.34 H, Est GFR (MDRD) Non-Af 56 L, BUN/Creatinine Ratio 15.4, Glucose 175 H, Calcium 10.0, Troponin T High Sens 21, NT pro BNP II 718 12/26/24 11:09: POC Glucose 175 H 12/26/24 12:25: Magnesium 2.3 H, Troponin T Hi Sens 2 Hr 20 Clinical Impression(s) from Imaging Studies Chest X-Ray 12/26/24 10:30 IMPRESSION: No evidence of acute cardiopulmonary pathology. Other findings as noted. Reading Location: [place] [address] 12/26/24 10:56 IMPRESSION: 1. Generalized brain atrophy. 2. Small vessel ischemic/degenerative changes. 3. No acute intracranial hemorrhage, midline shift or mass effect. If symptoms persist, further evaluation with MRI is recommended. 4. No significant change from the prior exam. Red Alert: No acute intracranial hemorrhage. The critical information above was relayed directly by me by telephone to Eric Hernadez on 12/26/2024 at 11:11 am with readback verification. Reading Location: [facility] Chest CTA 12/26/24 11:00 IMPRESSION: No evidence of pulmonary embolism. Mild bibasilar atelectasis. Tiny nonobstructive calculi in the upper pole of the right and left kidneys. Reading Location: [facility] Head/Neck CTA 12/26/24 11:00 IMPRESSION: Mild calcific origin of the right and left internal carotid arteries causing less than 50% narrowing. No large vessel occlusion. Reading Location: [facility] Medications at Discharge Home Medications pramipexole 0.25 mg tablet 0.25 mg PO QHS restless legs 11/25/14 albuterol sulfate 90 mcg/actuation aerosol inhaler 2 puff inhalation Q4H PRN PRN sob & or wheezing 02/27/21 apixaban 5 mg tablet (Eliquis) 5 mg PO Q12H blood thinner 06/28/24 fluticasone furoate 200 mcg-vilanterol 25 mcg/dose inhalation powder (Breo Ellipta) 1 inh inhalation QDAY breathing 07/19/24 fluticasone propionate 50 mcg/actuation nasal spray,suspension (Flonase Allergy Relief) 2 spray intranasal QDAY allergies 07/26/24 dapagliflozin propanediol 10 mg tablet (Farxiga) 10 mg PO DAILY diabetes #30 tabs 09/04/24 flaxseed oil 13.9 gram/15 mL oral liquid 13.9 g PO DAILY PRN constipation 09/04/24 losartan 25 mg tablet 25 mg PO DAILY blood pressure #30 tabs 09/04/24 furosemide 40 mg tablet (Lasix) 40 mg PO DAILY diuretic 30 days #30 tabs 09/19/24 amiodarone 200 mg tablet 200 mg PO QDAY heart rate #90 tabs 10/14/24 levothyroxine 25 mcg tablet 25 mcg PO QDAY thyroid #90 tabs 10/28/24 atorvastatin 40 mg tablet 40 mg PO DAILY 11/26/24 sertraline 50 mg tablet 50 mg PO QODAY 14 days #0 tabs 12/27/24 Physical Exam Narrative Seen in the morning. Patient still is complaining of mild slowness/fogginess of the brain with difficulty to understand speech. No vertigo. Dizziness better. No further chest pain since ED. Chest pain resolved. General: Alert, Oriented x3, Cooperative. Mild fatigue HEENT: Atraumatic, PERRLA, EOMI, Normocephalic. Left eye blind. Oral: No Gingival or Mucosal Lesions/ Ulcerations Neck: Supple, No JVD, Negative Carotid Bruits Chest wall/Lungs: Air entry diminished in bilateral lung bases. No crepitation/rhonchi Cardiovascular: Open-heart surgical scar, left subclavicular AICD. V paced rhythm. Bioprosthetic valve murmur sound/click. Abdomen: Bowel Sounds Present, Soft, Non Tender, Non-Distended : No dysuria. No renal angle tenderness. No suprapubic tenderness. Extremities: No edema, Capillary Refill Less than 3 Seconds Skin: No rashes, No breakdown Musculoskeletal: No Tenderness to Palpation of Joints or Extremities. Degenerative arthritis of knee joints. Neurological: Cranial nerves II-XII grossly intact, DTR 2+/4. No acute focal neurological deficit. Psych/Mental Status: Flat affect Weight / BMI Weight Weight: 235 lb 10.786 oz Body Mass Index (BMI) 30.2 ABG / Lab / Microbiology Data 12/27/24 06:19 12/27/24 06:19 Laboratory: Laboratory Results - last 24 hr 12/26/24 14:40: Troponin T Hi Sens 4Hr 21 12/26/24 16:49: POC Glucose 110 H 12/26/24 21:57: POC Glucose 130 H 12/27/24 06:19: WBC 6.6, RBC 5.39, Hgb 14.8, Hct 46.9, MCV 87.0, MCH 27.5, MCHC 31.6 L, RDW Std Deviation 51.0 H, RDW Coeff of Cristal 16.4 H, Plt Count 143 L, MPV 10.0, Immature Gran % (Auto) 0.600, Neut % (Auto) 69.0, Lymph % (Auto) 16.0 L, [place] % (Auto) 9.3, Eos % (Auto) 4.3, Baso % (Auto) 0.8, Absolute Neuts (auto) 4.5, Absolute Lymphs (auto) 1.05, Nucleated RBC % 0, Sodium 142, Potassium 4.3, Chloride 109 H, Carbon Dioxide 21.9, Anion Gap 12, BUN 20 H, Creatinine 1.44 H, Estim Creat Clear Calc 58.62, Est GFR (MDRD) Non-Af 51 L, BUN/Creatinine Ratio 13.5, Glucose 124 H, Hemoglobin A1c 8.8 H, Calcium 9.5, Phosphorus 3.7, Triglycerides 137, Cholesterol 134, LDL Cholesterol, Calc 69, VLDL Cholesterol 27, HDL Cholesterol 38 L, Cholesterol/HDL Ratio 3.56, TSH 1.820 12/27/24 06:38: POC Glucose 130 H 12/27/24 11:10: POC Glucose 148 H Radiography Diagnostic Testing: Radiology Impression Brain MRI 12/27/24 10:15 IMPRESSION: 1. No evidence of acute intracranial pathology. 2. Cerebral atrophy. 3. Chronic lacunar infarction in the periventricular white matter of the right frontal lobe. 4. Left phthisis bulbi. Reading Location: [place] [address] D/C Instructions DC O2, CPAP, BIPAP Needs Home O2 Discharge instructions: No Meaningful Use Info Meaningful Use Meaningful Use Diagnoses (Choose all that apply): None applicable Discharge Plan Admission Admit Date/Time: 12/26/24 12:58 Primary Reason for Your Visit: Dizziness/headache probably due to SSRI Attending Provider: Shlomo Guido Primary Care Provider: Roberto Carlos Fernandes Consulting Providers: Bebeto Kraft; Lilly Pearson; Meme Thompson; Rylee Ramires; Nika Youssef; Pako Busby; Joan Fox; Abdulaziz Langley; Stephen Bone; Maurisio Calvin; Rylee Azul; Pascual Hall; Angelina Mcfadden; Janae Deutsch; Nicola Daniels; Behzad Whyte; Lindsay Avila; Kaiden Blackburn; Zee Georges; Ron Walsh Instructions Additional Instructions / Restrictions: Sertraline wean off as mentioned below Discharge Orders/Prescriptions Prescriptions: Continued fluticasone furoate-vilanterol [Breo Ellipta] 200-25 mcg/dose blister with device 1 inh inhalation QDAY fluticasone propionate [Flonase Allergy Relief] 50 mcg/actuation spray,suspension 2 spray intranasal QDAY Rx Instructions: administer into each nostril flaxseed oil 13.9 gram/15 mL liquid 13.9 g PO DAILY PRN (Reason: constipation) losartan 25 mg tablet 25 mg PO DAILY Qty: 30 11RF dapagliflozin propanediol [Farxiga] 10 mg tablet 10 mg PO DAILY Qty: 30 11RF pramipexole 0.25 MG tablet 0.25 mg PO QHS Patient Comments: restless legs albuterol sulfate 90 mcg/actuation HFA aerosol inhaler 2 puff INHALATION Q4H PRN PRN (Reason: sob & or wheezing) Patient Comments: INHALE 2 PUFFS BY MOUTH EVERY 4 HOURS NEEDED FOR SHORTNESS OF BREATH AND WHEEZING Eliquis 5 mg tablet 5 mg PO Q12H Patient Comments: [NO ORIGINAL SIG] furosemide [Lasix] 40 mg tablet 40 mg PO DAILY 30 Days Qty: 30 0RF atorvastatin 40 mg tablet 40 mg PO DAILY amiodarone 200 mg tablet 200 mg PO QDAY Qty: 90 3RF levothyroxine 25 mcg tablet 25 mcg PO QDAY Qty: 90 3RF Changed sertraline 50 mg tablet 50 mg PO QODAY 14 Days Qty: 0 0RF Rx Instructions: Neurologist recommended weaning of sertraline, 50 mg every other day for 2 weeks and then stop. Stop date December 10 Referrals / Follow Up: Daniele Goodrich MD [Non-Staff -Ordering Privileges] - Within 1 Month (For vertigo/dizziness) Roberto Carlos Fernandes MD [Primary Care Provider] - Disposition Disposition (needs filled in before D/C Order can be placed): Home, Self Care Charges/Coding Visit Charges Inpatient E&M: 66581 Disch Hosp >30min
--- NOTE | 2024-12-27 16:24 | CASEMGMT ---
Patient has order for discharge. RN CM in to discuss needs at discharge. Patient denies needs or help at discharge. Patient states he will follow-up and resume his cardiac rehab on Monday. Patient had no further questions or concerns.
== END 2024-12-27 18:04 | disposition home or self-care (01) ==
LOC: ED 13:53 → PCU 14:22
PROVIDERS: Admitting Provider Internal Medicine; Emergency Provider Emergency Medicine; PCP Family Medicine; Visit Provider Internal Medicine
DX: R07.89 Other chest pain (principal); M06.9 Rheumatoid arthritis, unspecified; I50.22 Chronic systolic (congestive) heart failure; I13.0 Hypertensive heart and chronic kidney disease with heart failure and stage 1 through stage 4 chronic kidney disease, or unspecified chronic kidney disease; J44.89 Other specified chronic obstructive pulmonary disease; I48.20 Chronic atrial fibrillation, unspecified; I42.8 Other cardiomyopathies; E11.22 Type 2 diabetes mellitus with diabetic chronic kidney disease; N18.31 Chronic kidney disease, stage 3a; R42 Dizziness and giddiness; R53.1 Weakness; Z79.01 Long term (current) use of anticoagulants; F41.9 Anxiety disorder, unspecified; Z86.711 Personal history of pulmonary embolism; Z79.51 Long term (current) use of inhaled steroids; Z79.899 Other long term (current) drug therapy; I25.10 Atherosclerotic heart disease of native coronary artery without angina pectoris; Z86.73 Personal history of transient ischemic attack (TIA), and cerebral infarction without residual deficits; Z79.84 Long term (current) use of oral hypoglycemic drugs; H54.8 Legal blindness, as defined in USA; Z79.890 Hormone replacement therapy; R11.0 Nausea; G47.33 Obstructive sleep apnea (adult) (pediatric); Z95.810 Presence of automatic (implantable) cardiac defibrillator
CPT/HCPCS: 36415; 70450; 70496; 70498; 70551; 71046; 71275; 80048; 80061; 82962; 83036; 83735; 83880; 84100; 84443; 84484; 85025; 85610; 85730; 92610; 93005; 93306; 94640; 94660; 94762; 96361; 96374; 96376; 97162; 97166; 99221; 99285; Q9957; Q9967; A4216; G0378; J2405

== ENCOUNTER 2025-01-08 10:15 | Outpatient (RCR) | payer MEDICARE, OTHER, SELFPAY ==
[2024-10-10 10:05] VITALS: BMI 31.4
[2024-11-08 08:48] VITALS: BMI 31.4
[2024-11-10 00:16] VITALS: BP 140/82; BP 150/80
--- NOTE | 2024-12-05 09:57 | CR.ITP_ITS ---
Exercise - Initial Assessment Physician Prescribed Exercise Modalities: [employer] Stepper Nutrition - Initial Assessment Weight Mgt (Other Care) Height: 6 ft 1 in Weight:: 238 lb BMI: 31.4 Core - Initial Assessment Hypertension Resting Blood Pressure:: 140/82 [place] [employer] Hypertension Guidelines Psychosocial - Initial Assess Target Goals Target Goals Referral to Behavioral Health PS - Interventions: Yes: Attend Stress Management Classes Nutrition Survey Nutrition Survey Instructions Scoring Instructions Exercise - 30-day Assessment Physician Prescribed Exercise Modalities: [employer] Stepper Exercise - 60-day Assessment Visit Date of Eval: 12/05/24 Session #:: 4 (Pt has been on med hold per 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 Pt plans on returning 12/16/24.) Physician Prescribed Exercise Modalities: [employer] Stepper Frequency: 3x/week for 12 weeks [36 sessions] Intensity: 60-80% of age predicted maximum heart rate reserve Current METSs:: 3 Target Heart Rate:: 88-110 Current RPE:: 11 Maximum Excercise HR:: 87 Resting Blood Pressure: 150/80 Maximum Exercise Blood Pressure: 132/80 EKG Type: NSR with LBBB and rare pacs/pvcs Outcomes & Goals Goals:: Verbalizes understanding of THR, RPE & goal METS by session 6, Documents in home exercise log/reports 30 min aerobic 5 day/wk by DC, Demonstrates accurate pulse taking by DC and Other additional outcome/goals: see below Intervention & Plan Exercise Program Goals: Instruct on personal THR & RPE, Instruct on MET level & personal MET goal, Show patient to take own pulse /validate performance until accurate, Instruct on home exercise and Other additional plan/int 30-day Reassessments 30 day Reassessments:: Not Met Physical Activity Home Exercise Physical Activity - Home Exercise: Safe Exercise, Warm-up, Self-monitoring, Cool-Down, Home Exercise > 30 min Daily and Sitting Time <3 hours/daily Outcomes & Goals Outcomes/Goals: Demonstrates correct Warm-up/exercise Cool-Down (S3) if = 2.5 METs, Verbalizes symptoms of exercise intolerance by Session 3 (S3), Demonstrate safe equipment use (S3) & follows exercise prescrition (6) and Other: See below Intervention & Plan Plan/Intervention: Instruct warm-up & cool-down if exercising at > 2 METs, Instruct on symptoms of exercise intolerance & actions to take, Instruct & monitor on saf, Assess intial functional capacity & safety risk and Other See below 30-day Reassessments 30 day Reassessments:: Not Met Exercise - 90-day Assessment Physician Prescribed Exercise Modalities: Karen Figueroa Exercise - Final/Discharge Physician Prescribed Exercise Modalities: Karen Figueroa Nutrition - 30-Day Assessment Weight Mgt (Other Care) Height: 6 ft 1 in Weight:: 238 lb BMI: 31.4 Nutrition - 60-Day Assessment Visit Date of Eval: 12/05/24 Session #:: 4 (Pt has been on med hold per 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 Pt plans on returning 12/16/24.) Cholesterol/Lipids (Other Core Measures) Determine presence & major risk factors that modify LDL goal: Hypertension or hypertensive medication, Low HDL cholesterol <40 mg/dL*, Family history of premature CHD in Male < 55 years: female <65 yearsFa and Age men > 45 years; women >/= 55 years Outcomes/Goals: Pt IDs own risk factors & lifestyle modifications by Session 10, Verbalizes symptoms of angina & response by session 3., Pt independently manages and Other Additional Outcomes/Goals: Intervention/Plan: Advocate for lipid panel cholesterol medication if applicable, Instruct on personal lipid levels & lipid goals/NCEP guidelines, Instruct on cholesterol and Other additional plan/int Weight Mgt (Other Care) Height: 6 ft 1 in Weight:: 238 lb BMI: 31.4 Diagnosis Overweight/Obesity BMI> 30% ICD-10 E66: Yes Diagnosis High BMI/Morbid Obesity BMI> 35% ICD-10 Z68: No Outcomes/Goals: Pt sets, maintains & shows weight loss goal & trend during rehab and Other additional outcomes/goals Intervention/Plan: Instruct on ideal BMI & set weight loss goal w/patient, Assist pt to ID & incorporate diet changes for weight loss by S9, Refer to Structured Weight Loss program as appropriate, Encourage goal of using 250- 300dcal per session for weight loss and Other additional plan/interventions 30 day Reassessments:: Not Met Healthy Eating Habits Will attend diet classes:: Yes Outcomes/Goals:: Consume diet rich in vegs,fruits,whole grain/high fiber,fish,lean meat, Limit sat/trans fats,cholesterol & added salts & sugars and Other additional outcome/goals: Intervention/Plan:: Assess current eating habits and Other Additional plan/interventions 30-day Reassessments:: Not Met Education Gave educational materials for:: Signs & symptoms of hypoglycemia, Signs & symptoms of hyperglycemia, Relate diabetes to coronary artery disease and Heal thy eating Core - Final Assessment Hypertension Resting Blood Pressure:: 140/82 [place] [employer] Hypertension Guidelines Core - 60-Day Assessment Visit Date of Eval: 12/05/24 Session #:: 4 (Pt has been on med hold per 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 Pt plans on returning 12/16/24.) Medication Compliance Preventative Medication(s):: Aspirin, Statin/lipid, Beta hue, Eliquis and ARB (Angiotensi Rcap) H/O mental health issues: depression, anxiety, or addiction?: Yes Doesn?t believe in the benefits of treatment?: No Believes medications are unnecessary or harmful?: No Has a concern about medication side effects?: No Expresses concern over the cost of medications?: No Outcomes/Goals: Verbalizes medications,desired effect & common side effects @ DC, Pt self-reports following medication regimen, Keeps card in wallet w/medications listed by DC and Other additional outcome/goals: Interventions/plans: Instruct on medication effects & side effects, Review medication list w/patient every two weeks, Instruct importance of taking meds as ordered & assist problem solving and Other additional 30-day Reassessments:: Not Met Tobacco Use Tobacco Use: Non-smoker Hypertension Hypertension Diagnosis:: Hypertension ICD-10 I10 Resting Blood Pressure:: 150/80 Resting Blood Pressure:: 140/82 [place] [employer] Hypertension Guidelines Peak Exercise Blood Pressure:: 132/80 Outcomes/Goals: Able to verbalize/achieve optimal blood pressure <130/80, Incorporates diet changes & exercise for blood pressure control by DC and Other additional outcomes/goals Interventions/plan: Instruct on optimal blood pressure, hypertension & medications, Instruct on effects of sodium, alcohol, stress, exercise &hypertension and Other additional plan/interventions 30 day Reassessments:: Not Met Tobacco Cessation Referral Smoking Cessation Referral:: No Individual Education/Counseling:: No Education Schedule Given:: Yes Psychosocial - 30-Day Assess Target Goals Target Goals Referral to Behavioral Health PS - Interventions: Yes: Attend Stress Management Classes Outcomes/Goals: See list Psychosocial Outcomes/Goals:: ID's personal stressors & 2 strategies to manage stress by discharge and Other Additional outcome/goals: Psychosocial - 60-Day Assess VIsit Date of Eval: 12/05/24 Session #:: 4 (Pt has been on med hold per 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 Pt plans on returning 12/16/24.) History of previous Mental disease:: Yes History of Emotional Disorders: Depression Target Goals Target Goals Psychosocial Test Tool Used:: PHQ-9 Questionnaire phq-9 Severity See PHQ-9 Score: 9 Referral to Behavioral Health PS - Interventions: Yes: Attend Stress Management Classes Outcomes/Goals: See list Psychosocial Outcomes/Goals:: ID's personal stressors & 2 strategies to manage stress by discharge and Other Additional outcome/goals: Intervention/Plan: See List Interventions/Plan:: Assess stressors,coping strategies & signs of derpression on admission, Instruct/assist pt to develop coping & personal stress Mgt strategies, Refer to Behavioral Health if appropriate, Refer to Physician if appropriate, Instruct patient to recognize signs & symptoms of depression, Instruct patient to recog and Other additional plan/intervention 30-day Reassessments: 30 day Reassessments:: Not Met Psychosocial - 90-Day Assess Target Goals Target Goals Referral to Behavioral Health PS - Interventions: Yes: Attend Stress Management Classes Psychosocial - Final Assessmen Target Goals Target Goals Referral to Behavioral Health PS - Interventions: Yes: Attend Stress Management Classes Nutrition - 90-Day Assessment Weight Mgt (Other Care) Height: 6 ft 1 in Weight:: 238 lb BMI: 31.4 Nutrition - Final Assessment Weight Mgt (Other Care) Height: 6 ft 1 in Weight:: 238 lb BMI: 31.4
[2024-12-05 10:06] VITALS: BP 140/82; BP 150/80; BMI 31.4
--- NOTE | 2025-01-02 08:02 | CR.ITP_ITS ---
Exercise - Initial Assessment Physician Prescribed Exercise Modalities: SciFit Stepper and SciFit Pro-II Ergometer Nutrition - Initial Assessment Weight Mgt (Other Care) Height: 6 ft 1 in Weight:: 242 lb 8 oz BMI: 32.0 BMI (Report if calculated above): 32 Psychosocial - Initial Assess Target Goals Target Goals Referral to Behavioral Health PS - Interventions: Yes: Attend Stress Management Classes Patient Health Questionnaire PHQ-9 Screening 90-Day Re-eval Assessment: 1. Little interest or pleasure in doing things: Several days 2. Feeling down, depressed, or hopeless: Several days 3. Trouble falling or staying asleep, or sleeping too much: Several days 4. Feeling tired or having little energy: Nearly every day 5. Poor appetite or overeating: Several days 6. Feeling bad about yourself -- or that you are a failure or have let yourself or your family down: Several days 7. Trouble concentrating on things, such as reading the newspaper or watching television: Not at all 8. Moving or speaking so slowly that other people could have noticed. Or the opposite - being so fidgety or restless that you have been moving around a lot more than usual: Not at all 9. Thoughts that you would be better off , or of hurting yourself in some way: Not at all How difficult have these problems made it for you to do your work, take care of things at home, or get along with other people?: Somewhat difficult Total Score: 8 Self-Efficacy 6-Item Scale 90-Day Re-eval Assessment: We would like to know how confident you are in doing certain activities. Please select your confidence level for: Fatigue Select Number: 5 Physical Discomfort or Pain Select Number: 5 Emotional Distress Select Number: 6 Other Symptoms or Health Problems Select Number: 6 Different Tasks and Activities Select Number: 7 Medication Select Number: 8 Total Score:: 6 Nutrition Survey Nutrition Survey Instructions Scoring Instructions Exercise - 30-day Assessment Physician Prescribed Exercise Modalities: SciFit Stepper and SciFit Pro-II Ergometer Exercise - 60-day Assessment Physician Prescribed Exercise Modalities: SciFit Stepper and SciFit Pro-II Ergometer Exercise - 90-day Assessment Visit Date of Eval: 01/02/25 (pt was on medical hold for some time and had recent hospitalization) Session #:: 9 Physician Prescribed Exercise Modalities: SciFit Stepper and SciFit Pro-II Ergometer Frequency: 3x/week for 12 weeks [36 sessions] Intensity: 60-80% of age predicted maximum heart rate reserve Duration: 30 - 45 minutes METs - Progression 0.5-1.0 weekly:: 0.5-1.0 Current METSs:: 3 Target Heart Rate:: 88-110 Target RPE 12-16:: 12-16 Current RPE:: 11 Maximum Excercise HR:: 100 Resting Blood Pressure: 140/78 Maximum Exercise Blood Pressure: 140/78 EKG Type: Paced rhythm with rare multifocal pvc Current Physical Activity or Exercising minutes: 30-45 Outcomes & Goals Goals:: Verbalizes understanding of THR, RPE & goal METS by session 6, Documents in home exercise log/reports 30 min aerobic 5 day/wk by DC and Demonstrates accurate pulse taking by DC Intervention & Plan Exercise Program Goals: Instruct on personal THR & RPE, Instruct on MET level & personal MET goal, Show patient to take own pulse /validate performance until accurate and Instruct on home exercise 30-day Reassessments 30 day Reassessments:: Progressing Reassessment Notes & Comments:: Pt began cardiac rehab again, recent hospitalization, pt reinstructed on RPE scale, home exercises and goals Outcomes & Goals Outcomes/Goals: Demonstrates correct Warm-up/exercise Cool-Down (S3) if = 2.5 METs, Verbalizes symptoms of exercise intolerance by Session 3 (S3) and Demonstrate safe equipment use (S3) & follows exercise prescrition (6) Intervention & Plan Plan/Intervention: Instruct warm-up & cool-down if exercising at > 2 METs, Instruct on symptoms of exercise intolerance & actions to take, Instruct & monitor on saf and Assess intial functional capacity & safety risk 30-day Reassessments 30 day Reassessments:: Progressing Reassessment Notes & Comments:: Pt reinstructed on proper warm up and cool down, exercise intolerance, and safety precautions, pt demonstrates proper warm up and cool down with little prompting Exercise - Final/Discharge Physician Prescribed Exercise Modalities: SciFit Stepper and SciFit Pro-II Ergometer Nutrition - 30-Day Assessment Weight Mgt (Other Care) Height: 6 ft 1 in Weight:: 242 lb 8 oz BMI: 32.0 BMI (Report if calculated above): 32 Nutrition - 60-Day Assessment Weight Mgt (Other Care) Height: 6 ft 1 in Weight:: 242 lb 8 oz BMI: 32.0 BMI (Report if calculated above): 32 Core - 30-Day Assessment Hypertension [place] [employer] Hypertension Guidelines Reassessment Notes & Comments:: Pt taking all medications as prescribed, pt resting BP not at optimal levels, pt encouraged to make diet changes, will trend BPs to see if possible medication adjustments needed Core - Final Assessment Hypertension [place] [employer] Hypertension Guidelines Reassessment Notes & Comments:: Pt taking all medications as prescribed, pt resting BP not at optimal levels, pt encouraged to make diet changes, will trend BPs to see if possible medication adjustments needed Core - 90 Day Assessment Visit Date of Eval: 01/02/25 Session #:: 9 Medication Compliance Preventative Medication(s):: Aspirin, Statin/lipid, Beta hue, Eliquis and ARB (Angiotensi Rcap) H/O mental health issues: depression, anxiety, or addiction?: Yes Doesn?t believe in the benefits of treatment?: No Believes medications are unnecessary or harmful?: No Has a concern about medication side effects?: No Expresses concern over the cost of medications?: No Outcomes/Goals: Verbalizes medications,desired effect & common side effects @ DC, Pt self-reports following medication regimen and Keeps card in wallet w/medications listed by DC Interventions/plans: Instruct on medication effects & side effects, Review medication list w/patient every two weeks and Instruct importance of taking meds as ordered & assist problem solving 30-day Reassessments:: Progressing Reassessment Notes & Comments:: Pt taking all medications as prescribed, pt now attending rehab more consistently after medical hold and recent hospitalization Tobacco Use Tobacco Use: Non-smoker Hypertension Hypertension Diagnosis:: Hypertension ICD-10 I10 Resting Blood Pressure:: 140/78 [place] [employer] Hypertension Guidelines Peak Exercise Blood Pressure:: 140/78 Outcomes/Goals: Able to verbalize/achieve optimal blood pressure <130/80 and Incorporates diet changes & exercise for blood pressure control by DC Interventions/plan: Instruct on optimal blood pressure, hypertension & medications and Instruct on effects of sodium, alcohol, stress, exercise &hypertension 30 day Reassessments:: Not Met Reassessment Notes & Comments:: Pt taking all medications as prescribed, pt resting BP not at optimal levels, pt encouraged to make diet changes, will trend BPs to see if possible medication adjustments needed Tobacco Cessation Referral Education Schedule Given:: Yes Psychosocial - 30-Day Assess Target Goals Target Goals Referral to Behavioral Health PS - Interventions: Yes: Attend Stress Management Classes Psychosocial - 60-Day Assess Target Goals Target Goals Referral to Behavioral Health PS - Interventions: Yes: Attend Stress Management Classes Psychosocial - 90-Day Assess VIsit Date of Eval: 01/02/25 Session #:: 9 History of previous Mental disease:: Yes History of Emotional Disorders: Depression Target Goals Target Goals Psychosocial Test Tool Used:: PHQ-9 Questionnaire phq-9 Severity See PHQ-9 Score: 9 Total Score:: 9 Referral to Behavioral Health PS - Interventions: Yes: Attend Stress Management Classes Outcomes/Goals: See list Psychosocial Outcomes/Goals:: ID's personal stressors & 2 strategies to manage stress by discharge Intervention/Plan: See List Interventions/Plan:: Assess stressors,coping strategies & signs of derpression on admission, Instruct/assist pt to develop coping & personal stress Mgt strategies, Refer to Behavioral Health if appropriate, Refer to Physician if appropriate, Instruct patient to recognize signs & symptoms of depression and Instruct patient to recog 30-day Reassessments: 30 day Reassessments:: Progressing Reassessment Notes & Comments:: pt taking mental health medications as prescribed, pt denies any psychosocial needs at this time Psychosocial - Final Assessmen Target Goals Target Goals Psychosocial Test phq-9 Severity Total Score:: 9 Referral to Behavioral Health PS - Interventions: Yes: Attend Stress Management Classes Nutrition - 90-Day Assessment Visit Date of Eval: 01/02/25 Session #:: 9 Cholesterol/Lipids (Other Core Measures) Triglycerides (mg/dL): 137 Total Cholesterol (mg/dL): 134 LDL Cholesterol (mg/dL): 69 HDL Cholesterol (mg/dL): 38 Lipid Medication: atorvastatin 40mg QHS Determine presence & major risk factors that modify LDL goal: Cigarette smoking, Hypertension or hypertensive medication, Low HDL cholesterol <40 mg/dL* and Family history of premature CHD in Male < 55 years: female <65 yearsFa Outcomes/Goals: Pt IDs own risk factors & lifestyle modifications by Session 10, Verbalizes symptoms of angina & response by session 3. and Pt independently manages Intervention/Plan: Advocate for lipid panel cholesterol medication if applicable, Instruct on personal lipid levels & lipid goals/NCEP guidelines and Instruct on cholesterol 30-day Reassessments:: Progressing Reassessment Notes & Comments:: pt taking lipid medication as prescribed, pt with recent lipid panel Diabetes (Other Core Measures) Diabetes Type: Diagnosis Type II ICD-10 E11 Fasting blood glucose:: 124 Hgb A1C (4.2 -6.3): 8.8 Insulin dependent injection/pump?: No Non-Insulin Dependent?: Yes Outcomes/Goals:: Able to state symptoms of (hyperglycemia, hypoglycemia) Intervention/Plan:: Instruct on (carb controlled heart heathy diet) 30-day Reassessments:: Progressing Reassessment Notes & Comments:: Pt taking all medications as prescribed, pt with recent a1c, pt encouraged to monitor BS at home Weight Mgt (Other Care) Height: 6 ft 1 in Weight:: 242 lb 8 oz BMI: 32.0 BMI (Report if calculated above): 32 Diagnosis Overweight/Obesity BMI> 30% ICD-10 E66: Yes Diagnosis High BMI/Morbid Obesity BMI> 35% ICD-10 Z68: No Outcomes/Goals: Pt sets, maintains & shows weight loss goal & trend during rehab Intervention/Plan: Instruct on ideal BMI & set weight loss goal w/patient, Assist pt to ID & incorporate diet changes for weight loss by S9, Refer to Structured Weight Loss program as appropriate and Encourage goal of using 250- 300dcal per session for weight loss 30 day Reassessments:: Progressing Reassessment Notes & Comments:: Pt attending dietary and exercise classes Healthy Eating Habits Will attend diet classes:: Yes Outcomes/Goals:: Consume diet rich in vegs,fruits,whole grain/high fiber,fish,lean meat and Limit sat/trans fats,cholesterol & added salts & sugars Intervention/Plan:: Assess current eating habits 30-day Reassessments:: Progressing Reassessment Notes & Comments:: Pt attending education classes Education Gave educational materials for:: Signs & symptoms of hypoglycemia, Signs & symptoms of hyperglycemia, Relate diabetes to coronary artery disease and Healthy eating Nutrition - Final Assessment Weight Mgt (Other Care) Height: 6 ft 1 in Weight:: 242 lb 8 oz BMI: 32.0 BMI (Report if calculated above): 32
[2025-01-02 08:17] VITALS: BP 140/78; BMI 32.0
[2025-01-02 08:42] VITALS: BP 140/78
== END 2025-01-09 23:59 ==
LOC: CR 10:15
PROVIDERS: PCP Family Medicine; Referring Provider Internal Medicine Cardiovascular Disease; Visit Provider Internal Medicine Cardiovascular Disease
DX: R93.1 Abnormal findings on diagnostic imaging of heart and coronary circulation (principal); I42.9 Cardiomyopathy, unspecified; R00.1 Bradycardia, unspecified; Z95.2 Presence of prosthetic heart valve; E11.649 Type 2 diabetes mellitus with hypoglycemia without coma; G47.30 Sleep apnea, unspecified; J44.9 Chronic obstructive pulmonary disease, unspecified; I50.22 Chronic systolic (congestive) heart failure; Z95.1 Presence of aortocoronary bypass graft
CPT/HCPCS: 93798

== ENCOUNTER → 2025-01-09 | Outpatient (CLI) | payer MEDICARE, OTHER, SELFPAY ==
[2025-01-02 08:17] VITALS: BMI 32.0
[2025-01-09 18:46] LABS: Vitamin B12 446 pg/mL (180-914)
== END | disposition home or self-care (01) ==
LOC: MTLAB 15:33
PROVIDERS: PCP Family Medicine
DX: G25.81 Restless legs syndrome (principal); R53.83 Other fatigue
CPT/HCPCS: 36415; 82607

== ENCOUNTER 2025-02-07 10:15 | Outpatient (RCR) | payer MEDICARE, OTHER, SELFPAY ==
[2025-01-02 08:17] VITALS: BMI 32.0
--- NOTE | 2025-01-30 07:32 | CR.ITP_ITS ---
Exercise - Initial Assessment Physician Prescribed Exercise Modalities: SciFit Stepper, SciFit Pro-II Ergometer and SciFit Lateral [place] Rancher Nutrition - Initial Assessment Weight Mgt (Other Care) Height: 6 ft 1 in Weight:: 241 lb 8 oz BMI: 31.8 Psychosocial - Initial Assess Target Goals Target Goals Patient Health Questionnaire PHQ-9 Screening 90-Day Re-eval Assessment: 1. Little interest or pleasure in doing things: Several days 2. Feeling down, depressed, or hopeless: Several days 3. Trouble falling or staying asleep, or sleeping too much: Several days 4. Feeling tired or having little energy: Nearly every day 5. Poor appetite or overeating: More than half the days 6. Feeling bad about yourself -- or that you are a failure or have let yourself or your family down: Several days 7. Trouble concentrating on things, such as reading the newspaper or watching television: Not at all 8. Moving or speaking so slowly that other people could have noticed. Or the opposite - being so fidgety or restless that you have been moving around a lot more than usual: Not at all 9. Thoughts that you would be better off , or of hurting yourself in some way: Not at all How difficult have these problems made it for you to do your work, take care of things at home, or get along with other people?: Somewhat difficult Total Score: 9 Self-Efficacy 6-Item Scale 90-Day Re-eval Assessment: We would like to know how confident you are in doing certain activities. Please select your confidence level for: Fatigue Select Number: 5 Physical Discomfort or Pain Select Number: 5 Emotional Distress Select Number: 6 Other Symptoms or Health Problems Select Number: 6 Different Tasks and Activities Select Number: 7 Medication Select Number: 8 Total Score:: 6 Nutrition Survey Nutrition Survey Instructions Scoring Instructions Exercise - 30-day Assessment Physician Prescribed Exercise Modalities: SciFit Stepper, SciFit Pro-II Ergometer and SciFit Lateral Fruit Rancher Exercise - 60-day Assessment Physician Prescribed Exercise Modalities: SciFit Stepper, SciFit Pro-II Ergometer and SciFit Lateral [place] Exercise - 90-day Assessment Visit Date of Eval: 01/30/25 Session #:: 17 Physician Prescribed Exercise Modalities: SciFit Stepper, SciFit Pro-II Ergometer and SciFit Lateral [place] Frequency: 3x/week for 12 weeks [36 sessions] Intensity: 60-80% of age predicted maximum heart rate reserve Duration: 30 - 45 minutes Current METSs:: 3.1 Target Heart Rate:: 88-110 Current RPE:: 11-13 Maximum Excercise HR:: 94 Resting Blood Pressure: 140/76 Maximum Exercise Blood Pressure: 124/72 EKG Type: Paced with rare PVC Outcomes & Goals Goals:: Verbalizes understanding of THR, RPE & goal METS by session 6, Documents in home exercise log/reports 30 min aerobic 5 day/wk by DC, Demonstrates accurate pulse taking by DC and Other additional outcome/goals: see below Intervention & Plan Exercise Program Goals: Instruct on personal THR & RPE, Instruct on MET level & personal MET goal, Show patient to take own pulse /validate performance until accurate, Instruct on home exercise and Other additional plan/int Physical Activity Home Exercise Physical Activity - Home Exercise: Safe Exercise, Warm-up, Self-monitoring, Cool-Down, Home Exercise > 30 min Daily and Sitting Time <3 hours/daily Outcomes & Goals Outcomes/Goals: Demonstrates correct Warm-up/exercise Cool-Down (S3) if = 2.5 METs, Verbalizes symptoms of exercise intolerance by Session 3 (S3), Demonstrate safe equipment use (S3) & follows exercise prescrition (6) and Other: See below Intervention & Plan Plan/Intervention: Instruct warm-up & cool-down if exercising at > 2 METs, Instruct on symptoms of exercise intolerance & actions to take, Instruct & monitor on saf, Assess intial functional capacity & safety risk and Other See below 30-day Reassessments 30 day Reassessments:: Progressing Reassessment Notes & Comments:: Symptoms of exercise intolerance reviewed. Pt demonstrates understanding. Pt reduces workloads appropriately when necessary. Exercise - Final/Discharge Physician Prescribed Exercise Modalities: SciFit Stepper, SciFit Pro-II Ergometer and SciFit Lateral Fruit Rancher Nutrition - 30-Day Assessment Weight Mgt (Other Care) Height: 6 ft 1 in Weight:: 241 lb 8 oz BMI: 31.8 Nutrition - 60-Day Assessment Weight Mgt (Other Care) Height: 6 ft 1 in Weight:: 241 lb 8 oz BMI: 31.8 Core - 30-Day Assessment Hypertension [place] [employer] Hypertension Guidelines Reassessment Notes & Comments:: Pt's BP's are within AHA normal limits on some days. Will continue to encourage weight loss and a low sodium diet. Will report to physician if necessary Core - Final Assessment Hypertension [place] [employer] Hypertension Guidelines Reassessment Notes & Comments:: Pt's BP's are within AHA normal limits on some days. Will continue to encourage weight loss and a low sodium diet. Will report to physician if necessary Core - 90 Day Assessment Visit Date of Eval: 01/30/25 Session #:: 17 Medication Compliance Preventative Medication(s):: Aspirin, Statin/lipid, Beta hue, Eliquis and ARB (Angiotensi Rcap) H/O mental health issues: depression, anxiety, or addiction?: Yes Doesn?t believe in the benefits of treatment?: No Believes medications are unnecessary or harmful?: No Has a concern about medication side effects?: No Expresses concern over the cost of medications?: No Outcomes/Goals: Verbalizes medications,desired effect & common side effects @ DC, Pt self-reports following medication regimen, Keeps card in wallet w/medications listed by DC and Other additional outcome/goals: Interventions/plans: Instruct on medication effects & side effects, Review medication list w/patient every two weeks, Instruct importance of taking meds as ordered & assist problem solving and Other additional Tobacco Use Tobacco Use: Non-smoker Hypertension Hypertension Diagnosis:: Hypertension ICD-10 I10 Resting Blood Pressure:: 140/76 [place] [employer] Hypertension Guidelines Peak Exercise Blood Pressure:: 124/72 Outcomes/Goals: Able to verbalize/achieve optimal blood pressure <130/80, Incorporates diet changes & exercise for blood pressure control by DC and Other additional outcomes/goals Interventions/plan: Instruct on optimal blood pressure, hypertension & medications, Instruct on effects of sodium, alcohol, stress, exercise &hypertension and Other additional plan/interventions 30 day Reassessments:: Progressing Reassessment Notes & Comments:: Pt's BP's are within AHA normal limits on some days. Will continue to encourage weight loss and a low sodium diet. Will report to physician if necessary Tobacco Cessation Referral Smoking Cessation Referral:: No Individual Education/Counseling:: No Education Schedule Given:: Yes Psychosocial - 30-Day Assess Target Goals Target Goals Psychosocial - 60-Day Assess Target Goals Target Goals Psychosocial - 90-Day Assess VIsit Date of Eval: 01/30/25 Session #:: 17 History of previous Mental disease:: Yes History of Emotional Disorders: Anxious and Depression Target Goals Target Goals Psychosocial Test Tool Used:: PHQ-9 Questionnaire phq-9 Severity See PHQ-9 Score: 9 Outcomes/Goals: See list Psychosocial Outcomes/Goals:: ID's personal stressors & 2 strategies to manage stress by discharge and Other Additional outcome/goals: Intervention/Plan: See List Interventions/Plan:: Assess stressors,coping strategies & signs of derpression on admission, Instruct/assist pt to develop coping & personal stress Mgt strategies, Refer to Behavioral Health if appropriate, Refer to Physician if appropriate, Instruct patient to recognize signs & symptoms of depression, Instruct patient to recog and Other additional plan/intervention 30-day Reassessments: 30 day Reassessments:: Progressing Reassessment Notes & Comments:: Pt to attend stress management class. Will reassess every 30 days Psychosocial - Final Assessmen Target Goals Target Goals Nutrition - 90-Day Assessment Visit Date of Eval: 01/30/25 Session #:: 17 Cholesterol/Lipids (Other Core Measures) Determine presence & major risk factors that modify LDL goal: Hypertension or hypertensive medication, Low HDL cholesterol <40 mg/dL*, Family history of premature CHD in Male < 55 years: female <65 yearsFa and Age men > 45 years; women >/= 55 years Outcomes/Goals: Pt IDs own risk factors & lifestyle modifications by Session 10, Verbalizes symptoms of angina & response by session 3., Pt independently manages and Other Additional Outcomes/Goals: Intervention/Plan: Advocate for lipid panel cholesterol medication if applicable, Instruct on personal lipid levels & lipid goals/NCEP guidelines, Instruct on cholesterol and Other additional plan/int Weight Mgt (Other Care) Height: 6 ft 1 in Weight:: 241 lb 8 oz BMI: 31.8 Diagnosis Overweight/Obesity BMI> 30% ICD-10 E66: Yes Diagnosis High BMI/Morbid Obesity BMI> 35% ICD-10 Z68: No Outcomes/Goals: Pt sets, maintains & shows weight loss goal & trend during rehab and Other additional outcomes/goals Intervention/Plan: Instruct on ideal BMI & set weight loss goal w/patient, Assist pt to ID & incorporate diet changes for weight loss by S9, Refer to Structured Weight Loss program as appropriate, Encourage goal of using 250- 300dcal per session for weight loss and Other additional plan/interventions 30 day Reassessments:: Progressing Reassessment Notes & Comments:: Pt attended nutrition classes last week. Heart healthy low sodium diet encouraged. Will continue to weigh pt weekly. Healthy Eating Habits Will attend diet classes:: Yes Outcomes/Goals:: Consume diet rich in vegs,fruits,whole grain/high fiber,fish,lean meat, Limit sat/trans fats,cholesterol & added salts & sugars an d Other additional outcome/goals: Intervention/Plan:: Assess current eating habits and Other Additional plan/interventions 30-day Reassessments:: Progressing Reassessment Notes & Comments:: Pt attended nutrition classes last week. Heart healthy low sodium diet encouraged. Education Gave educational materials for:: Signs & symptoms of hypoglycemia, Signs & symptoms of hyperglycemia, Relate diabetes to coronary artery disease and Healthy eating Nutrition - Final Assessment Weight Mgt (Other Care) Height: 6 ft 1 in Weight:: 241 lb 8 oz BMI: 31.8
[2025-01-30 07:46] VITALS: BP 140/76; BMI 31.8
== END 2025-02-09 23:59 ==
LOC: CR 10:15
PROVIDERS: PCP Family Medicine; Referring Provider Internal Medicine Cardiovascular Disease; Visit Provider Internal Medicine Cardiovascular Disease
DX: R93.1 Abnormal findings on diagnostic imaging of heart and coronary circulation (principal); I42.9 Cardiomyopathy, unspecified; R00.1 Bradycardia, unspecified; Z95.2 Presence of prosthetic heart valve; G47.30 Sleep apnea, unspecified; E11.649 Type 2 diabetes mellitus with hypoglycemia without coma; J44.9 Chronic obstructive pulmonary disease, unspecified; I50.22 Chronic systolic (congestive) heart failure; Z95.1 Presence of aortocoronary bypass graft
CPT/HCPCS: 93798

== ENCOUNTER 2025-02-11 17:30 | Emergency (ER) | payer MEDICARE, OTHER, SELFPAY ==
[2025-01-30 07:46] VITALS: BMI 31.8
[2025-02-11 17:30] VITALS: BP 175/87; PULSE 87; RESP 28; TEMP 37.7; O2SAT 94
[2025-02-11 19:53] VITALS: BP 162/84; PULSE 78; RESP 25; TEMP 37; O2SAT 95
[2025-02-11 20:00] VITALS: BP 142/71; PULSE 72; RESP 19; TEMP 37.1; O2SAT 99
--- NOTE | 2025-02-11 20:40 | RAD_ITS ---
PROCEDURE: CHEST PA AND LATERAL 02/11/2025 REASON FOR EXAM: CHEST CONGESTION, COUGH TECHNIQUE: Procedure Code: RADCXR Modality: DX Procedure: CHEST PA AND LATERAL COMPARISON: 12/26/24 FINDINGS: Left chest pacer. Median sternotomy wires. Mild pulmonary vascular congestion. No focal consolidation. Mild left base effusion. No pneumothorax. Cardiac silhouette is stable No acute fractures. RAD/Chest PA and Lateral IMPRESSION: Mild pulmonary vascular congestion. No focal consolidation. Mild left base eff usion. Reading Location: [facility]
--- NOTE | 2025-02-11 20:40 | EKG12_ITS ---
Test Reason : SOB Blood Pressure : */* mmHG Vent. Rate : 84 BPM Atrial Rate : 84 BPM P-R Int : 126 ms QRS Dur : 186 ms QT Int : 468 ms P-R-T Axes : * 252 62 degrees QTcB Int : 553 ms Atrial-sensed ventricular-paced rhythm Abnormal ECG Confirmed by Dakota Edgar ([id number]), society editor ANNIKA RODRIGUEZ ([id number]) on 02/12/2025 10:32:03 AM Referred By: CG/BB Confirmed By: Dakota Edgar
[2025-02-11 21:00] VITALS: BP 150/101; PULSE 76; RESP 26; TEMP 37.1; O2SAT 96
[2025-02-11 21:06] VITALS: BMI 32.4
--- NOTE | 2025-02-11 21:26 | EDS_ITS ---
HPI HPI - URI History of Present Illness Chief Complaint: Shortness of Breath Informant: patient and spouse/S.O. Onset/Context/Timing Onset: Yesterday Narrative Narrative: 75-year-old male presenting with a cough, malaise, body aches, mild headache, nasal congestion and a positive home COVID test. Started feeling ill yesterday. He denies any chest pain or dyspnea. He spends most of his time in a wheelchair but he is here with a cane. Denies any leg pain or swelling. He is anticoagulated on Eliquis, has a history of A-fib as well as a nonischemic cardiomyopathy and pacer/ICD. He states he had all COVID vaccinations that were recommended in the past, and he had COVID-pneumonia in the past with chronic scarring in his left lower lung as a result according to what he was told. ROS ROS ED Constitutional Constitutional ED: Reports body ache(s), headache(s) and malaise; Denies chills or fever(s) Eyes Eyes: Denies change in vision or diplopia ENT ENT ED: Reports nasal congestion; Denies rhinorrhea or sore throat Cardiovascular Cardiovascular: Denies chest pain or palpitations Respiratory/Chest Respiratory/Chest: Reports cough; Denies dyspnea, dyspnea on exertion or sputum Gastrointestinal Gastrointestinal: Denies abdominal pain, diarrhea, nausea or vomiting Genitourinary Genitourinary ED: Denies dysuria or hematuria Musculoskeletal Musculoskeletal: Denies back pain or neck pain Integumentary Denies abscess or rash Neurologic Neurologic: Reports headache(s); Denies paresthesias or weakness Psychiatric Psychiatric: Denies anxiety or suicidal thoughts [facility] Medical History Biventricular implantable cardioverter-defibrillator (ICD) in situ Nonischemic cardiomyopathy Cardiac LV ejection fraction <20% Bradycardia History of cardioversion (07/2024) Cardiomyopathy Fatty liver CAD (coronary artery disease) Atrial fibrillation status post cardioversion Syncope Benign paroxysmal positional vertigo Obesity (BMI 30.0-34.9) Chronic systolic CHF (congestive heart failure) Chronic bundle branch block Stenosis of lumbosacral spine Lumbar disc disease First degree AV block Asthma Blindness of left eye Rheumatoid arthritis History of pulmonary embolism History of kidney stones Hiatal hernia History of diverticulitis Limited mobility Depression Anxiety Restless legs Back pain Vision loss of left eye Kidney stones CPAP (continuous positive airway pressure) dependence Pulmonary embolism H/O bicuspid aortic valve COPD (chronic obstructive pulmonary disease) Diabetes mellitus Sleep apnea Hypertension Home Medications ?Medication ?Instructions ?Recorded ?Last Taken ?Type pramipexole 0.25 mg tablet 0.25 mg PO QHS restless leg s 11/25/14 12/25/24 History albuterol sulfate 90 mcg/actuation 2 puff inhalation Q 4H PRN PRN sob 02/27/21 12/15/21 07:30 History aerosol inhaler & or wheezing apixaban 5 mg tablet (Eliquis) 5 mg PO Q12H blood thin ner 06/28/24 12/26/24 History fluticasone furoate 200 1 inh inhalation QDAY breath ing 07/19/24 Unknown History mcg-vilanterol 25 mcg/dose inhalation powder (Breo Ellipta) fluticasone propionate 50 2 spray intranasal QDAY mauro rgies 07/26/24 Unknown History mcg/actuation nasal spray,suspension (Flonase Allergy Relief) dapagliflozin propanediol 10 mg 10 mg PO DAILY diabete s #30 tabs 09/04/24 12/26/24 Rx tablet (Farxiga) losartan 25 mg tablet 25 mg PO DAILY blood pressur e #30 09/04/24 12/26/24 Rx tabs furosemide 40 mg tablet (Lasix) 40 mg PO DAILY diureti c 30 days 09/19/24 12/26/24 Rx #30 tabs levothyroxine 25 mcg tablet 25 mcg PO QDAY thyroid #90 tabs 10/28/24 12/26/24 Rx atorvastatin 40 mg tablet 40 mg PO DAILY 11/26/2412/10 History amiodarone 200 mg tablet 200 mg PO QDAY #30 tabs 01/03 Unknown Rx Allergy/AdvReac Type Severity Reaction Status Date / Time hydrochlorothiazide (hctz) Allergy Intermediate hypercalcem Verified 02/11/25 17:34 ia sertraline AdvReac Intermediate Dizziness Verified 02/11/25 17:34 erythromycin base AdvReac Diarrhea Verified 02/11/25 17:34 oxycodone (From Percocet) AdvReac Other Verified 02/11/25 17:34 tramadol AdvReac Other Verified 02/11/25 17:34 Family History Mother Asthma Father CVA (cerebral vascular accident) Pulmonary embolism Brother Diabetes Hypertension Grandmother CVA (cerebral vascular accident) Heart disease Grandfather Heart disease Surgical History S/P AVR (aortic valve replacement) (03/20/24) History of coronary artery bypass graft S/P aortic valve repair Hx of cystoscopy History of thoracic aortic aneurysm repair H/O shoulder replacement Status post reverse total shoulder replacement Social History (Updated 01/09/25 @ 14:26 by Margo Quintana) household members: spouse housing: house current occupational status: retired current occupation: Former [employer] pets and animals: Yes pets and animals: dog(s) Smoking Status: Never smoker Electronic Cigarette Use: not used alcohol intake: never substance use type: does not use caffeine: Yes Type: carbonated beverages, coffee Number of servings: 2 and tea do you feel safe at home: Yes EXAM Physical Exam Const Vital Signs: 02/11/25 17:30 02/11/25 19:53 02/11/25 19:53 Temperature 99.9 F H 98.6 F Temperature Source Temporal Oral Pulse Rate 87 78 Respiratory Rate 28 H 25 H Respiratory Effort Short of Breath Respiratory Depth Normal Respiratory Pattern Tachypnea Blood Pressure 175/87 H 162/84 H Blood Pressure Mean 116 110 Pulse Ox 94 95 Oxygen Delivery Method Room Air Room Air Room Air 02/11/25 20:00 02/11/25 21:00 Temperature 98.7 F 98.7 F Temperature Source Oral Oral Pulse Rate 72 76 Respiratory Rate 19 H 26 H Respiratory Effort Respiratory Depth Respiratory Pattern Blood Pressure 142/71 H 150/101 H Blood Pressure Mean 94 117 Pulse Ox 99 96 Oxygen Delivery Method Room Air Room Air Positive well nourished and well developed Constitutional Narrative: Malaised-appearing, no distress General Appearance ED: well developed and NAD HEENT Reports moist mucous membranes normocephalic and atraumatic Eyes PERRL and EOMs intact bilaterally Neck full ROM, supple, no meningeal signs and no JVD Resp normal respiratory effort and clear to auscultation bilaterally Cardio regular rate, regular rhythm and no murmurs Rate: Negative for tachycardic GI non-tender and non-distended Auscultation: normoactive bowel sounds Palpation: soft Back/Spine no CVA tenderness General Back: other FROM Extremity normal to inspection and no calf tenderness General Extremety ED: Negative for edema, pulses abnormal or tenderness General Extremity: Negative for edema or pulses abnormal Neuro oriented x3, CN's II-XII intact bilaterally and no sensory deficits noted Sensorium / Orientation: awake and alert Motor Exam: general weakness Psych mental status grossly normal Skin no rashes or lesions noted and no wounds MDM MDM MDM Narrative Medical decision making narrative: Positive COVID PCR confirms COVID, chest x-ray 2 views my interpretation shows no acute infiltrates. Vital signs look really good here, he has been 95-96% on room air multiple checks. I think this patient would probably be lower risk without Paxlovid rather than on it, we discussed prescribing it, but given that he is on amiodarone and apixaban as well as atorvastatin, we would need to modify those medications and I recommend against especially since he has had vaccinations and this is not necessarily a virulent strain. They are comfortable with supportive care. Since he has been having no chest discomfort or dyspnea and his rhythm is paced only, I do not think he needs further evaluation for possible myocarditis. Radiography Diagnostic Testing: Clinical Impression(s) from Imaging Studies Chest X-Ray 02/11/25 20:40 IMPRESSION: Mild pulmonary vascular congestion. No focal consolidation. Mild left base effusion. Reading Location: [facility] Rhythm Strip Rhythm Strip: paced Rate: 70 Ectopy: None Discharge Plan Triage Chief Complaint: Shortness of Breath ED Provider: Francisco Javier Macario Dx/Rx/DC Orders Clinical Impression: Acute bronchitis due to COVID-19 virus, Anticoagulated on apixaban Instructions: Coronavirus Disease 2019 (COVID-19): Caring for Yourself or Others Prescriptions: No Action fluticasone furoate-vilanterol [Breo Ellipta] 200-25 mcg/dose blister with device 1 inh inhalation QDAY fluticasone propionate [Flonase Allergy Relief] 50 mcg/actuation spray,suspension 2 spray intranasal QDAY Rx Instructions: administer into each nostril losartan 25 mg tablet 25 mg PO DAILY Qty: 30 11RF dapagliflozin propanediol [Farxiga] 10 mg tablet 10 mg PO DAILY Qty: 30 11RF pramipexole 0.25 MG tablet 0.25 mg PO QHS Patient Comments: restless legs albuterol sulfate 90 mcg/actuation HFA aerosol inhaler 2 puff INHALATION Q4H PRN PRN (Reason: sob & or wheezing) Patient Comments: INHALE 2 PUFFS BY MOUTH EVERY 4 HOURS NEEDED FOR SHORTNESS OF BREATH AND WHEEZING Eliquis 5 mg tablet 5 mg PO Q12H Patient Comments: [NO ORIGINAL SIG] furosemide [Lasix] 40 mg tablet 40 mg PO DAILY 30 Days Qty: 30 0RF atorvastatin 40 mg tablet 40 mg PO DAILY levothyroxine 25 mcg tablet 25 mcg PO QDAY Qty: 90 3RF amiodarone 200 mg tablet 200 mg PO QDAY Qty: 30 11RF Primary Care Provider: Roberto Carlos Fernandes Referrals: Roberto Carlos Fernandes MD [Primary Care Provider] - As Needed Activity Restrictions/Additional Instructions: Try to get a home portable pulse oximeter and closely watch your oxygen levels periodically. If you stay below 90% for more than a minute or so, and/or you are feeling like your breathing is getting worse, return to the emergency department for further evaluation. Currently, CDC recommendations state that you should stay home through day 5 of symptoms, then as long as symptoms are improving, if you need to go to work or somewhere else you may for days 6-10 as long as you are wearing a mask the entire time. If you are feeling better after day 10 you may resume life is normal. Print Language: Lebanese Disposition Disposition: Home, Self Care
[2025-02-11 22:23] VITALS: BP 158/81; PULSE 80; RESP 18; TEMP 37.2; O2SAT 94
== END 2025-02-11 22:32 | disposition home or self-care (01) ==
PROVIDERS: Emergency Provider Emergency Medicine; PCP Family Medicine; Visit Provider Emergency Medicine
DX: U07.1 COVID-19 (principal); I50.22 Chronic systolic (congestive) heart failure; I11.0 Hypertensive heart disease with heart failure; J44.9 Chronic obstructive pulmonary disease, unspecified; I48.91 Unspecified atrial fibrillation; I42.8 Other cardiomyopathies; E11.9 Type 2 diabetes mellitus without complications; J20.9 Acute bronchitis, unspecified; I25.10 Atherosclerotic heart disease of native coronary artery without angina pectoris; Z79.01 Long term (current) use of anticoagulants; G47.30 Sleep apnea, unspecified; Z99.89 Dependence on other enabling machines and devices; G25.81 Restless legs syndrome; Z79.899 Other long term (current) drug therapy; Z79.51 Long term (current) use of inhaled steroids; Z95.2 Presence of prosthetic heart valve
CPT/HCPCS: 71046; 87631; 93005; 99283; A4216

== ENCOUNTER 2025-03-10 10:15 | Outpatient (RCR) | payer MEDICARE, OTHER, SELFPAY ==
[2025-01-30 07:46] VITALS: BMI 31.8
--- NOTE | 2025-02-28 08:13 | CR.ITP_ITS ---
Exercise - Initial Assessment Physician Prescribed Exercise Modalities: SciFit Stepper and Westhouse Pro-II Ergometer Nutrition - Initial Assessment Weight Mgt (Other Care) Height: 6 ft 1 in Weight:: 247 lb BMI: 32.5 BMI (Report if calculated above): 32.5 Core - Initial Assessment Hypertension Resting Blood Pressure:: 132/78 [employer] Hypertension Guidelines Psychosocial - Initial Assess Psychosocial Test phq-9 Severity See PHQ-9 Score: 9 Referral to Behavioral Health PS - Interventions: Yes: Attend Stress Management Classes Patient Health Questionnaire PHQ-9 Screening Discharge Assessment: 1. Little interest or pleasure in doing things: Several days 2. Feeling down, depressed, or hopeless: Several days 3. Trouble falling or staying asleep, or sleeping too much: Several days 4. Feeling tired or having little energy: Nearly every day 5. Poor appetite or overeating: Several days 6. Feeling bad about yourself -- or that you are a failure or have let yourself or your family down: Several days 7. Trouble concentrating on things, such as reading the newspaper or watching television: Not at all 8. Moving or speaking so slowly that other people could have noticed. Or the opposite - being so fidgety or restless that you have been moving around a lot more than usual: Not at all 9. Thoughts that you would be better off , or of hurting yourself in some way: Not at all How difficult have these problems made it for you to do your work, take care of things at home, or get along with other people?: Somewhat difficult Total Score: 8 Self-Efficacy 6-Item Scale Discharge Assessment: We would like to know how confident you are in doing certain activities. Please select your confidence level for: Fatigue Select Number: 5 Physical Discomfort or Pain Select Number: 5 Emotional Distress Select Number: 6 Other Symptoms or Health Problems Select Number: 6 Different Tasks and Activities Select Number: 7 Medication Select Number: 8 Total Score:: 6 Nutrition Survey Nutrition Survey Discharge: Have you lost >10 lbs over the past 2 months without trying?: No Are you following a special diet at home for diabetes, low fat, or low salt?: Yes Are you interested in meeting with a dietitian for help understanding your diet?: Yes Do you eat less than 3 meals a day?: Yes Do you eat fatty meats (nuñez, sausage, ribs, etc), fried foods, desserts, large amounts of salad dressings, margarine, butter, or cheese most days?: No Do you have food allergies? [Enter types in comment field]: No Do you eat in restaurants more than 3 times a week?: No Do you season food with salt, seasoning salt, or garlic salt?: No Do you used canned, boxed, frozen meals, or soups, seasoning packets?: No Total Score:: 3 Exercise - 30-day Assessment Physician Prescribed Exercise Modalities: SciFit Stepper and SciFit Pro-II Ergometer Exercise - 60-day Assessment Physician Prescribed Exercise Modalities: SciFit Stepper and SciFit Pro-II Ergometer Exercise - 90-day Assessment Physician Prescribed Exercise Modalities: SciFit Stepper and SciFit Pro-II Ergometer Exercise - Final/Discharge Visit Date of Eval: 02/28/25 Session #:: 22 Physician Prescribed Exercise Modalities: SciFit Stepper and SciFit Pro-II Ergometer Frequency: 3x/week for 12 weeks [36 sessions] Intensity: 60-80% of age predicted maximum heart rate reserve Duration: 30 - 45 minutes METs - Progression 0.5-1.0 weekly:: 0.5-1.0 Current METSs:: 3 Target Heart Rate:: 88-110 Target RPE 12-16:: 12-16 Current RPE:: 12 Maximum Heart Rate:: 92 Resting Blood Pressure: 132/78 Maximum Exercise Blood Pressure: 150/76 EKG Type: Paced rhythm with rare pvcs Outcomes & Goals Goals:: Verbalizes understanding of THR, RPE & goal METS by session 6, Documents in home exercise log/reports 30 min aerobic 5 day/wk by DC and Demonstrates accurate pulse taking by DC Intervention & Plan Exercise Program Goals: Instruct on personal THR & RPE, Instruct on MET level & personal MET goal, Show patient to take own pulse /validate performance until accurate and Instruct on home exercise 30-day Reassessments 30 day Reassessments:: Met Physical Activity Home Exercise Physical Activity - Home Exercise: Safe Exercise, Warm-up, Self-monitoring, Cool-Down, Home Exercise > 30 min Daily and Sitting Time <3 hours/daily Outcomes & Goals Outcomes/Goals: Demonstrates correct Warm-up/exercise Cool-Down (S3) if = 2.5 METs, Verbalizes symptoms of exercise intolerance by Session 3 (S3) and Demonstrate safe equipment use (S3) & follows exercise prescrition (6) Intervention & Plan Plan/Intervention: Instruct warm-up & cool-down if exercising at > 2 METs, Instruct on symptoms of exercise intolerance & actions to take, Instruct & monitor on saf and Assess intial functional capacity & safety risk 30-day Reassessments 30 day Reassessments:: Met Nutrition - 30-Day Assessment Weight Mgt (Other Care) Height: 6 ft 1 in Weight:: 247 lb BMI: 32.5 BMI (Report if calculated above): 32.5 Nutrition - 60-Day Assessment Weight Mgt (Other Care) Height: 6 ft 1 in Weight:: 247 lb BMI: 32.5 BMI (Report if calculated above): 32.5 Core - 30-Day Assessment Hypertension [employer] Association Hypertension Guidelines Reassessment Notes & Comments:: Pt encouraged to follow low sodium diet and active lifestyle to promote lower blood pressure Core - Final Assessment Visit Date of Eval: 02/28/25 Session #:: 22 Medication Compliance Preventative Medication(s):: Aspirin, Statin/lipid, Beta hue, Eliquis and ARB (Angiotensi Rcap) H/O mental health issues: depression, anxiety, or addiction?: Yes Doesn’t believe in the benefits of treatment?: No Believes medications are unnecessary or harmful?: No Has a concern about medication side effects?: No Expresses concern over the cost of medications?: No Outcomes/Goals: Verbalizes medications,desired effect & common side effects @ DC, Pt self-reports following medication regimen and Keeps card in wallet w/medications listed by DC Interventions/plans: Instruct on medication effects & side effects, Review medication list w/patient every two weeks and Instruct importance of taking meds as ordered & assist problem solving 30-day Reassessments:: Met Reassessment Notes & Comments:: Pt reports he is taking all medications as prescribed. Tobacco Use Tobacco Use: Non-smoker Hypertension Hypertension Diagnosis:: Hypertension ICD-10 I10 Resting Blood Pressure:: 132/78 [employer] Heart Association Hypertension Guidelines Peak Exercise Blood Pressure:: 150/76 Outcomes/Goals: Able to verbalize/achieve optimal blood pressure <130/80 and Incorporates diet changes & exercise for blood pressure control by DC Interventions/plan: Instruct on optimal blood pressure, hypertension & medications and Instruct on effects of sodium, alcohol, stress, exercise &hypertension 30 day Reassessments:: Progressing Reassessment Notes & Comments:: Pt encouraged to follow low sodium diet and active lifestyle to promote lower blood pressure Tobacco Cessation Referral Education Schedule Given:: Yes Core - 90 Day Assessment Hypertension [employer] Association Hypertension Guidelines Reassessment Notes & Comments:: Pt encouraged to follow low sodium diet and active lifestyle to promote lower blood pressure Core - 60-Day Assessment Hypertension Resting Blood Pressure:: 132/78 [employer] Association Hypertension Guidelines Psychosocial - 30-Day Assess Referral to Behavioral Health PS - Interventions: Yes: Attend Stress Management Classes Psychosocial - 60-Day Assess Referral to Behavioral Health PS - Interventions: Yes: Attend Stress Management Classes Psychosocial - 90-Day Assess Referral to Behavioral Health PS - Interventions: Yes: Attend Stress Management Classes Psychosocial - Final Assessmen VIsit Date of Eval: 02/28/25 Session #:: 22 History of previous Mental disease:: Yes History of Emotional Disorders: Depression Psychosocial Test Tool Used:: PHQ-9 Questionnaire phq-9 Severity See PHQ-9 Score: 9 Referral to Behavioral Health PS - Interventions: Yes: Attend Stress Management Classes Outcomes/Goals: See list Psychosocial Outcomes/Goals:: ID's personal stressors & 2 strategies to manage stress by discharge Intervention/Plan: See List Interventions/Plan:: Assess stressors,coping strategies & signs of derpression on admission, Instruct/assist pt to develop coping & personal stress Mgt strategies, Refer to Behavioral Health if appropriate, Refer to Physician if appropriate and Instruct patient to recognize signs & symptoms of depression 30-day Reassessments: 30 day Reassessments:: Met Nutrition - 90-Day Assessment Weight Mgt (Other Care) Height: 6 ft 1 in Weight:: 247 lb BMI: 32.5 BMI (Report if calculated above): 32.5 Nutrition - Final Assessment Visit Date of Assessment:: 02/28/25 Session #:: 22 Cholesterol/Lipids (Other Core Measures) Triglycerides (mg/dL): 137 Total Cholesterol (mg/dL): 134 LDL Cholesterol (mg/dL): 69 HDL Cholesterol (mg/dL): 38 Lipid Medication: atorvastatin 40mg QHS Determine presence & major risk factors that modify LDL goal: Cigarette smoking, Hypertension or hypertensive medication, Low HDL cholesterol <40 mg/dL*, Family history of premature CHD in Male < 55 years: female <65 yearsFa and Age men > 45 years; women >/= 55 years Outcomes/Goals: Pt IDs own risk factors & lifestyle modifications by Session 10, Verbalizes symptoms of angina & response by session 3., Pt independently manages and Other Additional Outcomes/Goals: Intervention/Plan: Advocate for lipid panel cholesterol medication if applicable, Instruct on personal lipid levels & lipid goals/NCEP guidelines and Instruct on cholesterol 30-day Reassessments:: Progressing Reassessment Notes & Comments:: Pt taking statin medication as prescribed, pt with recent lipid profile. Diabetes (Other Core Measures) Diabetes Type: Diagnosis Type II ICD-10 E11 Fasting blood glucose:: 124 Hgb A1C (4.2 -6.3): 8.8 Insulin dependent injection/pump?: No Non-Insulin Dependent?: Yes 30-day Reassessments:: Progressing Reassessment Notes & Comments:: Pt encouraged to follow cardiac carb controlled diet, pt met with termite control servicer for 1 on 1 counseling, pt encouraged to monitor BS at home. Weight Mgt (Other Care) Height: 6 ft 1 in Weight:: 247 lb BMI: 32.5 BMI (Report if calculated above): 32.5 Diagnosis Overweight/Obesity BMI> 30% ICD-10 E66: Yes Diagnosis High BMI/Morbid Obesity BMI> 35% ICD-10 Z68: No Outcomes/Goals: Pt sets, maintains & shows weight loss goal & trend during rehab Intervention/Plan: Instruct on ideal BMI & set weight loss goal w/patient, Assist pt to ID & incorporate diet changes for weight loss by S9, Refer to Structured Weight Loss program as appropriate and Encourage goal of using 250- 300dcal per session for weight loss 30 day Reassessments:: Progressing Reassessment Notes & Comments:: Pt continues to track weight weekly in rehab, pt encouraged to incorporate lifestyle and dietary changes to promote weight loss. Healthy Eating Habits Will attend diet classes:: Yes Outcomes/Goals:: Consume diet rich in vegs,fruits,whole grain/high fiber,fish,lean meat and Limit sat/trans fats,cholesterol & added salts & sugars Intervention/Plan:: Assess current eating habits 30-day Reassessments:: Met Reassessment Notes & Comments:: Pt attended dietary classes while in rehab. Education Gave educational materials for:: Signs & symptoms of hypoglycemia, Signs & symptoms of hyperglycemia, Relate diabetes to coronary artery disease and Healthy eating
[2025-02-28 08:16] VITALS: BP 132/78
[2025-02-28 08:27] VITALS: BP 132/78; BMI 32.5
== END 2025-03-11 23:59 ==
LOC: CR 10:15
PROVIDERS: PCP Family Medicine; Referring Provider Internal Medicine Cardiovascular Disease; Visit Provider Internal Medicine Cardiovascular Disease
DX: R93.1 Abnormal findings on diagnostic imaging of heart and coronary circulation (principal); I42.9 Cardiomyopathy, unspecified; R00.1 Bradycardia, unspecified; Z95.2 Presence of prosthetic heart valve; E11.649 Type 2 diabetes mellitus with hypoglycemia without coma; G47.30 Sleep apnea, unspecified; J44.9 Chronic obstructive pulmonary disease, unspecified; I50.22 Chronic systolic (congestive) heart failure; Z95.1 Presence of aortocoronary bypass graft
CPT/HCPCS: 93798

== ENCOUNTER 2025-04-07 10:15 | Outpatient (RCR) | payer MEDICARE, OTHER, SELFPAY ==
[2025-02-28 08:27] VITALS: BMI 32.5
--- NOTE | 2025-03-27 07:18 | PCM.CR.ITP ---
Exercise - Initial Assessment Physician Prescribed Exercise Modalities: SciFit Stepper and SciFit Pro-II Ergometer Nutrition - Initial Assessment Weight Mgt (Other Care) Height: 6 ft 1 in Weight:: 248 lb 8 oz BMI: 32.8 Psychosocial - Initial Assess Referral to Behavioral Health PS - Interventions: Yes: Attend Stress Management Classes Exercise - 30-day Assessment Physician Prescribed Exercise Modalities: SciFit Stepper and SciFit Pro-II Ergometer Exercise - 60-day Assessment Physician Prescribed Exercise Modalities: SciFit Stepper and SciFit Pro-II Ergometer Exercise - 90-day Assessment Visit Date of Eval: 03/27/25 Session #:: 32 Physician Prescribed Exercise Modalities: SciFit Stepper and SciFit Pro-II Ergometer Frequency: 3x/week for 12 weeks [36 sessions] Intensity: 60-80% of age predicted maximum heart rate reserve Duration: 30 - 45 minutes Current METSs:: 5.3 Target Heart Rate:: 88-110 Current RPE:: 12-14 Maximum Excercise HR:: 101 Resting Blood Pressure: 120/72 Maximum Exercise Blood Pressure: 136/86 EKG Type: Paced w/ rare PVC Outcomes & Goals Goals:: Verbalizes understanding of THR, RPE & goal METS by session 6, Documents in home exercise log/reports 30 min aerobic 5 day/wk by DC, Demonstrates accurate pulse taking by DC and Other additional outcome/goals: see below Intervention & Plan Exercise Program Goals: Instruct on personal THR & RPE, Instruct on MET level & personal MET goal, Show patient to take own pulse /validate performance until accurate, Instruct on home exercise and Other additional plan/int Physical Activity Home Exercise Physical Activity - Home Exercise: Safe Exercise, Warm-up, Self-monitoring, Cool-Down, Home Exercise > 30 min Daily and Sitting Time <3 hours/daily Outcomes & Goals Outcomes/Goals: Demonstrates correct Warm-up/exercise Cool-Down (S3) if = 2.5 METs, Verbalizes symptoms of exercise intolerance by Session 3 (S3), Demonstrate safe equipment use (S3) & follows exercise prescrition (6) and Other: See below Intervention & Plan Plan/Intervention: Instruct warm-up & cool-down if exercising at > 2 METs, Instruct on symptoms of exercise intolerance & actions to take, Instruct & monitor on saf, Assess intial functional capacity & safety risk and Other See below 30-day Reassessments 30 day Reassessments:: Progressing Reassessment Notes & Comments:: Pt has 4 sessions remaining. Pt is progressing his exercise intensity. Will continue to encourage and increase intensity as tolerated. Pt's EF was estimated at 30% when he began rehab and his most recent echo has his estimated EF at 53%. Exercise - Final/Discharge Physician Prescribed Exercise Modalities: SciFit Stepper and SciFit Pro-II Ergometer Nutrition - 30-Day Assessment Weight Mgt (Other Care) Height: 6 ft 1 in Weight:: 248 lb 8 oz BMI: 32.8 Nutrition - 60-Day Assessment Weight Mgt (Other Care) Height: 6 ft 1 in Weight:: 248 lb 8 oz BMI: 32.8 Core - 30-Day Assessment Hypertension [place] [employer] Hypertension Guidelines Reassessment Notes & Comments:: Pt's BP's are within AHA normal limits. Will continue to monitor and report to pt's physician if necessary. Core - Final Assessment Hypertension [place] [employer] Hypertension Guidelines Reassessment Notes & Comments:: Pt's BP's are within AHA normal limits. Will continue to monitor and report to pt's physician if necessary. Core - 90 Day Assessment Visit Date of Eval: 03/27/25 Session #:: 32 Medication Compliance Preventative Medication(s):: Aspirin, Statin/lipid, Beta hue, Eliquis and ARB (Angiotensi Rcap) H/O mental health issues: depression, anxiety, or addiction?: Yes Doesn’t believe in the benefits of treatment?: No Believes medications are unnecessary or harmful?: No Has a concern about medication side effects?: No Expresses concern over the cost of medications?: No Outcomes/Goals: Verbalizes medications,desired effect & common side effects @ DC, Pt self-reports following medication regimen, Keeps card in wallet w/medications listed by DC and Other additional outcome/goals: Interventions/plans: Instruct on medication effects & side effects, Review medication list w/patient every two weeks, Instruct importance of taking meds as ordered & assist problem solving and Other additional 30-day Reassessments:: Met Reassessment Notes & Comments:: Pt is currently taking meds as prescribed. Pt has attended cardiac meds class. Tobacco Use Tobacco Use: Non-smoker Hypertension Hypertension Diagnosis:: Hypertension ICD-10 I10 Resting Blood Pressure:: 120/72 [place] [employer] Hypertension Guidelines Peak Exercise Blood Pressure:: 136/86 Outcomes/Goals: Able to verbalize/achieve optimal blood pressure <130/80, Incorporates diet changes & exercise for blood pressure control by DC and Other additional outcomes/goals Interventions/plan: Instruct on optimal blood pressure, hypertension & medications, Instruct on effects of sodium, alcohol, stress, exercise &hypertension and Other additional plan/interventions 30 day Reassessments:: Met Reassessment Notes & Comments:: Pt's BP's are within AHA normal limits. Will continue to monitor and report to pt's physician if necessary. Tobacco Cessation Referral Smoking Cessation Referral:: No Individual Education/Counseling:: No Education Schedule Given:: Yes Psychosocial - 30-Day Assess Referral to Behavioral Health PS - Interventions: Yes: Attend Stress Management Classes Psychosocial - 60-Day Assess Referral to Behavioral Health PS - Interventions: Yes: Attend Stress Management Classes Psychosocial - 90-Day Assess VIsit Date of Eval: 03/27/25 Session #:: 32 History of Emotional Disorders: Depression Psychosocial Test Tool Used:: [employer] QOL Cardiac and PHQ-9 Questionnaire phq-9 Severity See PHQ-9 Score: 9 Referral to Behavioral Health PS - Interventions: Yes: Attend Stress Management Classes Outcomes/Goals: See list Psychosocial Outcomes/Goals:: ID's personal stressors & 2 strategies to manage stress by discharge and Other Additional outcome/goals: Intervention/Plan: See List Interventions/Plan:: Assess stressors,coping strategies & signs of derpression on admission, Instruct/assist pt to develop coping & personal stress Mgt strategies, Refer to Behavioral Health if appropriate, Refer to Physician if appropriate, Instruct patient to recognize signs & symptoms of depression, Instruct patient to recog and Other additional plan/intervention 30-day Reassessments: 30 day Reassessments:: Met Reassessment Notes & Comments:: Pt has attended stress management class. Will reassess every 30 days. Psychosocial - Final Assessmen Referral to Behavioral Health PS - Interventions: Yes: Attend Stress Management Classes Nutrition - 90-Day Assessment Visit Date of Eval: 03/27/25 Session #:: 32 (Nutrition survey score of 3.) Cholesterol/Lipids (Other Core Measures) Triglycerides (mg/dL): 137 Total Cholesterol (mg/dL): 134 LDL Cholesterol (mg/dL): 69 HDL Cholesterol (mg/dL): 38 Determine presence & major risk factors that modify LDL goal: Cigarette smoking, Hypertension or hypertensive medication, Low HDL cholesterol <40 mg/dL*, Family history of premature CHD in Male < 55 years: female <65 yearsFa and Age men > 45 years; women >/= 55 years Outcomes/Goals: Pt IDs own risk factors & lifestyle modifications by Session 10, Verbalizes symptoms of angina & response by session 3., Pt independently manages and Other Additional Outcomes/Goals: Intervention/Plan: Advocate for lipid panel cholesterol medication if applicable, Instruct on personal lipid levels & lipid goals/NCEP guidelines, Instruct on cholesterol and Other additional plan/int Diabetes (Other Core Measures) Diabetes Type: Diagnosis Type II ICD-10 E11 Fasting blood glucose:: 189 Hgb A1C (4.2 -6.3): 8.8 Insulin dependent injection/pump?: No Non-Insulin Dependent?: Yes 30-day Reassessments:: Progressing Reassessment Notes & Comments:: Pt encouraged to follow cardiac carb controlled diet. Pt has met with our dietitian for 1 on 1 counseling. Pt encouraged to monitor BS. Weight Mgt (Other Care) Height: 6 ft 1 in Weight:: 248 lb 8 oz BMI: 32.8 Diagnosis Overweight/Obesity BMI> 30% ICD-10 E66: Yes Diagnosis High BMI/Morbid Obesity BMI> 35% ICD-10 Z68: No Outcomes/Goals: Pt sets, maintains & shows weight loss goal & trend during rehab and Other additional outcomes/goals Intervention/Plan: Instruct on ideal BMI & set weight loss goal w/patient, Assist pt to ID & incorporate diet changes for weight loss by S9, Refer to Structured Weight Loss program as appropriate, Encourage goal of using 250-300dcal per session for weight loss and Other additional plan/interventions 30 day Reassessments:: Progressing Reassessment Notes & Comments:: Pt has met with our dietitian for 1 on 1 counseling. Pt has attended nutrition class. Pt understands the benefits of a hearth healthy low sodium diet. Healthy Eating Habits Will attend diet classes:: Yes Outcomes/Goals:: Consume diet rich in vegs,fruits,whole grain/high fiber,fish,lean meat, Limit sat/trans fats,cholesterol & added salts & sugars and Other additional outcome/goals: Intervention/Plan:: Assess current eating habits and Other Additional plan/interventions 30-day Reassessments:: Progressing Reassessment Notes & Comments:: Pt has met with our dietitian for 1 on 1 counseling. Pt has attended nutrition class. Pt understands the benefits of a hearth healthy low sodium diet. Education Gave educational materials for:: Signs & symptoms of hypoglycemia, Signs & symptoms of hyperglycemia, Relate diabetes to coronary artery disease and Healthy eating Nutrition - Final Assessment Weight Mgt (Other Care) Height: 6 ft 1 in Weight:: 248 lb 8 oz BMI: 32.8
[2025-03-27 07:37] VITALS: BP 120/72; BMI 32.8
== END 2025-04-11 23:59 ==
LOC: CR 10:15
PROVIDERS: PCP Family Medicine; Referring Provider Internal Medicine Cardiovascular Disease; Visit Provider Internal Medicine Cardiovascular Disease
DX: R93.1 Abnormal findings on diagnostic imaging of heart and coronary circulation (principal); I42.9 Cardiomyopathy, unspecified; R00.1 Bradycardia, unspecified; Z95.2 Presence of prosthetic heart valve; E11.649 Type 2 diabetes mellitus with hypoglycemia without coma; G47.30 Sleep apnea, unspecified; J44.9 Chronic obstructive pulmonary disease, unspecified; I50.22 Chronic systolic (congestive) heart failure; Z95.1 Presence of aortocoronary bypass graft
CPT/HCPCS: 93798

== ENCOUNTER → 2025-04-17 | Outpatient (CLI) | payer MEDICARE, OTHER, SELFPAY ==
[2025-03-27 07:37] VITALS: BMI 32.8
[2025-04-14 09:21] VITALS: BMI 32.3
--- NOTE | 2025-04-17 11:01 | MRI_ITS ---
PROCEDURE: SPINE LUMBAR (ROUTINE) 04/17/2025 REASON FOR EXAM: PAIN WITH RADICULOPATHY LEXTREM. SPONDYLOLISTHESIS TECHNIQUE: Procedure Code: MRISPL Modality: MR Procedure: SPINE LUMBAR (ROUTINE) COMPARISON: None. FINDINGS: Vertebrae: Preserved in height and signal. Bilateral L5 spondylolysis. Alignment: Anterolisthesis L5 on S1 by 5 mm. Conus Medullaris: Unremarkable. L1-2: Disc desiccation. No significant foraminal or canal stenosis. L2-3: Disc bulge. Disc desiccation facet joint arthropathy. No significant foraminal or canal stenosis. L3-4: Disc bulge. Facet joint arthropathy. No significant foraminal or canal stenosis. L4-5: Disc bulge. Facet joint arthropathy with fluid effusion. No significant foraminal or canal stenosis. L5-S1: Uncovered disc bulge. Severe foramina stenosis and abutment upon the exiting bilateral L5 nerves. No canal stenosis. Sacrum: Unremarkable. MRI/Spine Lumbar (Routine) IMPRESSION: Anterolisthesis L5 on S1 from spondylolysis. Bilateral L5-S1 severe foramina s tenosis with mass-effect upon the exiting nerves. The remainder levels are unremarkable without significant foraminal or canal st enosis. Reading Location: [id number]
[2025-04-17 11:41] VITALS: BP 122/94; PULSE 85; RESP 18; O2SAT 95
[2025-04-17 11:54] VITALS: BP 148/83; PULSE 85; RESP 18; O2SAT 95
[2025-04-17 12:09] VITALS: BP 139/81; PULSE 85; RESP 18; O2SAT 95
[2025-04-17 12:21] VITALS: BP 137/84; PULSE 76; RESP 18; O2SAT 93
== END | disposition home or self-care (01) ==
PROVIDERS: PCP Family Medicine; Referring Provider Physician Assistant; Visit Provider Physician Assistant
DX: M54.16 Radiculopathy, lumbar region (principal); M43.16 Spondylolisthesis, lumbar region; M53.80 Other specified dorsopathies, site unspecified
CPT/HCPCS: 72148